=== PATIENT | female | born 1940 | race Caucasian/White ===

== ENCOUNTER 2017-05-28 17:31 | Emergency (ER) | payer MEDICARE, BC ==
--- OUTSIDE RECORDS SUMMARY | 2017-05-28 18:05 | XMS REPORT ---
:1940 External Reference #:[id number] Author Organization [facility] Address [address] [address] Phone [phone] Care Team Providers Name Role Phone Alexi Kim III, MD Primary Care Physician Unavailable Payers Type Date Identification Numbers Payment Provider Subscriber Medicare Primary Effective: Policy Number: Medicare Francisca Coburn 2005 [id number] PayID: [id number] [address] [place] [address] Medigap Part B Effective: Policy Number: BS Facets Francisca Reyeslavonne 2011 [id number] PayID: [id number] [address] [address] [place] [address] Problems Date Description Provider Status Onset: 02/08/2011 Benign essential hypertension Alexi Kim M.D. Active Onset: 02/08/2011 Mixed hyperlipidemia Alexi Kim M.D. Active Onset: 02/23/2012 Chronic obstructive lung disease Alexi Kim M.D. Active Onset: 02/23/2012 Impaired fasting glycaemia Alexi Kim M.D. Active Onset: 02/23/2012 Osteoporosis Alexi Kim M.D. Active Onset: 04/13/2014 Disorder of lung Sabrina Chester MD Active Onset: 04/13/2014 Hypoxemia Sabrina Chester MD Active Onset: 09/28/2014 Obesity Sabrina Chester MD Active Onset: 03/01/2015 Essential hypertension Alexi Kim M.D. Active Onset: 08/31/2015 History of malignant neoplasm of Alexi Kim M.D. Active colon Family History Date Family Member(s) Problem(s) Comments Father due to Pancreatic () - pt not sure it was Cancer pancreatic age 78 Father Cancer Mother due to Abdominal () - age 72 Aneurysm Mother Aortic Aneurysm abdominal Siblings 1 1 Sister - HTN, Heart Failure Age 69 Social History Type Date Description Comments Marital Status Lives With Alone Occupation Retired Cigarette Use Quit - Age 64 ETOH Use 08/22/2012 Occasionally consumes alcohol Smoking Patient is a former smoker Recreational Drug Use Denies Drug Use Daily Caffeine Consumes on average 1 cup of regular coffee per day Exercise Type/Frequency Exercises regularly twice a week workout routine Allergies, Adverse Reactions, Alerts Date Description Reaction Status Severity Comments 01/22/2007 PCN active 01/22/2007 Codeine active 01/22/2007 statins active muscles aches 02/12/2014 Iodinated Diagnostic Agents active Medications Medication Date Status Form Strength Qnty SIG Indications Ordering Provider Methocarbamol 05/16/ Hx Tablets 750mg 60tabs take 1 M54.5 Sundar 2018 - tablet UNIQUE Mendiola 05/22/ every six 2018 hours as needed for pain. Salsalate 05/16/ Active Tablets 500mg 30tabs one tablet M54.5 Sundar 2018 twice UNIQUE Mendiola daily as needed with food Hydrocodone-Christian 05/16/ Active Tablets 5-325mg 30tabs take 1 M54.5 Sundar taminophen 2018 tablet Marlena SUPER[employer] SAMPLE every 8 hours for pain. Acetaminophen 02/06/ Active Capsules 500mg 2 by mouth Unknown 2015 twice a day as needed Albuterol 02/06/ Active Aerosol as needed Unknown Sulfate HFA 2015 Multivitamins 02/06/ Active Capsules 1 by mouth Unknown 2015 every day Symbicort 03/31/ Active Aerosol 160-4.5mcg 30.6un Inhale Two J44.9 Sabrina 2014 /Act its Puffs By MD Nemo Mouth Twice A Day Oxygen 09/28/ Active Misc 1units please use R09.02 Sabrina 2014 o2 at 4 MD Nemo litres/min during exertion Lyrica 04/10/ Active Capsules 25mg 60caps 25 mg in Unknown 2013 the morning, and 50 mg at night Prolia 08/26/ Active Solution 60mg/ml 60mg 60 mg sc M81.0 [place] 2013 [facility] Z92.29 Clindamycin HCL 05/09/2013 Active Capsules 300mg 2caps 2 tabs one Dirk hour prior to Tomas, dental work M.D. Vitamin B 01/10/2013 Active Capsules 1 po qd Unknown Complex Simvastatin 01/20/2011 Active Tablets 20mg 90tabs take one Alexi Escalera tablet by lisette Kim every M.D. evening Avalide 03/01/2009 Active Tablets 150-12. 90tabs 1 by mouth Alexi Escalera 5mg every day Yolande Kim Calcium + D 07/29/2008 Active Tablets 600mg 1 po qd Alexi Kim M.D. Vitamin E Active Capsules 100Unit 1 po qd Unknown Vitamin D-400 Active Tablets 400Unit 60tabs 1 by mouth Unknown every day Colace Active Capsules 100mg 60caps 1 by mouth Unknown daily Vitamin C Active Capsules 500mg 1 by mouth Unknown every day Zostavax 08/29/2016 - Hx Suspension [id number] [id number] Alexi E. 05/16/2017 Rec t/0.65M 0 Elliot Kim M.D. Centrum Silver 02/07/2016 - Hx Tablets 1 po qd Unknown 02/07/2016 Fentanyl 03/25/2014 - Hx Patches 72HR 25mcg/H 5units apply one Alexi E. 08/27/2014 R patch once Judy, every 3 days M.D. [place] 03/13/2014 - Hx Tablets 5-325mg 30tabs 1-2 by mouth Dirk 04/10/2014 every 4 to 6 Tomas, hours as M.D. needed Macrobid 02/16/2014 - Hx Capsules 100mg 10caps 1 tab q12hr x Dirk 08/27/2014 5 days Tomas, M.D. Lincoln 02/14/2014 - Hx Tablets 5-325mg 100tabs 1 by mouth Dirk 08/27/2014 every 6 Tomas, hours as M.D. needed for pain try to use less and less as soon as possible Ventolin HFA 02/04/2014 - Hx Aerosol 108(90B 1units 2 puffs by Thuan 02/07/2016 ase) mouth four Flowers, SUPERVIS[employer] SAMPLE mcg/Act times a day as needed Proair HFA 08/25/2013 - Hx Aerosol 108(90B 1units 2 puffs by Alexi Escalera 02/04/2014 [facility]) mouth four Judy, mcg/Act times a day M.DDeep as needed Spiriva 02/24/2013 - Hx Capsules 18mcg 30caps 2 inhalations Alexi E. Handihaler 02/04/2014 by mouth Judy, every morning Yolande Acetaminophen 12/10/2012 - Hx Tablets 500mg 80tabs 1-2 tabs q6h Dirk Extra Strength 02/04/2014 prn pain Yolande Marin Spiriva 11/12/2012 - Hx Capsules 18mcg 30caps 1 inhalation Jaylen Handihaler 02/04/2014 po qam Terence Uribe M.D.,FACP Robaxin-750 11/11/2012 - Hx Tablets 750mg 30tabs 1 po bid prn Dirk 08/25/2013 Yolande Marin Nerve Repair 08/23/2011 - Hx 1 qd Alexi Escalera 08/22/2012 Yolande Kim Aspirin 02/22/2011 - Hx Tablet 81mg 30tabs Alexi Escalera Childrens 08/07/2016 Yolande Kim Symbicort 09/29/2009 - Hx Aerosol 80-4.5m 3units inhale two Thuan 03/31/2015 cg/Act puffs into Flowers, [employer]PER[employer]AMPLE lungs twice a day Zithromax Z-Arnoldo 06/22/2009 - Hx Tablets 250mg 1Pack as per Alexi Escalera 08/23/2009 directions Yolande Kim Lyrica 02/11/2009 - Hx Capsules 50mg 60caps 1 po day Baanibal, 02/24/2013 Abram Escalera MD Flexeril 10/06/2008 - Hx Tablets 10mg 30tabs 1 po tid prn Alexi Escalera 02/11/2009 Yolande Kim Ritalin 07/29/2008 - Hx Tablets 5mg 30tabs 1 tab qd Alexi Escalera 02/11/2009 Yolande Kim Niferex-150 07/29/2008 - Hx Capsules 1 po qd Toi Forte 02/11/2009 Abram Escalera MD Vitamin C 07/29/2008 - Hx Tablets 1000mg 1 po qd Alexi EDeep 02/07/2016 Yolande Kim Oxaliplatin 07/29/2008 - Hx Every other Alexi E. 02/11/2009 week Yolande Kim Fluorouracil 07/29/2008 - Hx Solution ?mg. Every other Alexi E. 02/11/2009 week Yolande Kim Leucovorin 07/29/2008 - Hx Solution ?mg Every other Alexi E. Calcium 01/18/2011 week Yolande Kim Albuterol 07/29/2008 - Hx 1MonthS 2 puffs up to Alexi Escalera Inhaler 08/25/2013 upply four times a Judy, luiz by mouth Yolande as needed Procardia XL 01/29/2008 - Hx Tablets ER 60mg 90tabs 1 po qd Alexi Escalera 03/01/2009 24HR Yolande Kim Zetia 07/24/2007 - Hx Tablets 10mg 90tabs Take One Alexi EDeep 08/25/2013 Tablet By Judy, Mouth Every M.DDeep Day Fosamax 07/24/2007 - Hx Tablets 70mg 12tabs take 1 tablet Alexi E. 02/04/2014 by mouth once cara Kim M.D. Procardia XL - Hx Tablets ER 90mg. 90tabs 1 po qd Alexi EDeep 01/29/2008 24HR Yolande Kim Dyazide - Hx Capsules 37.5-25 90caps 1 po qd Alexi EDeep 03/01/2009 Yolande Kim Tylenol - Hx Tablets 325mg 100tabs prn 2 Tablets Unknown 08/25/2013 PO Q 4HRS Jen - Hx Tablets 60mg 180tabs 1 PO bid prn Frannieen, 07/24/2007 MD Rangel Centrum Silver - Hx Tablets 1 PO qd Frannieen, 07/29/2008 MD Rangel Proair HFA - Hx Aerosol 90mcg/A 1units 2 puffs po Alexi Escalera (Albuterol) 07/29/2008 ct qidprlucio Kim M.D. Aspirin - Hx Tablets 81mg 100tabs 1 PO qd Barken, 07/29/2008 MD Rangel Vitamin B - Hx Capsules 1 po qd Unknown Complex 01/10/2013 Neuropathy - Hx pt d/c'ed Unknown Repair 01/10/2013 Advil - Hx Tablets 200mg 2 tabs prn Unknown 02/07/2016 Lyrica - Hx Capsules 25mg 1 po bid Unknown 04/10/2014 Acetaminophen - Hx Tablets 500mg take 2 Unknown 08/27/2014 tablets by mouth every 8 hours as needed for pain Medications Administered in Office Medication Date Status Form Strength Qnty SIG Indications Ordering Provider Prolia Administered Injection Nurse Visit Injection, 017 A Denosumab, 1MG Prolia Administered Injection Alexi E. Injection, 016 Judy, Denosumab, 1MG M.D. Prolia Administered Injection Nurse Visit Injection, 016 C Denosumab, 1MG Influenza Administered Injection Unknown Virus Vaccine 015 Prolia Administered Injection Nurse Visit Injection, 015 C Denosumab, 1MG Prolia Administered Injection Alexi E. Injection, 015 Judy, Denosumab, 1MG M.D. Prolia Administered Injection Nurse Visit Injection, 014 Tburg Denosumab, 1MG Immunizations CPT Code Status Date Vaccine Lot # [id number] Given 12/27/2015 Influenza Virus Vaccine, Quadrivalent, Split, Preservative Free 19004 Given 01/28/2015 Influenza Virus 3Yrs & Over 08100 Given 02/04/2014 Flu Vaccine Split Virus Preservative Free For [id number] Indiv 3Yr Older 38374 Given 08/25/2013 Pneumococcal Conjugate Vaccine 13 Valent For [id number] Intramuscular Use [id number] Given 01/18/2011 Fluzone Vaccine [id number] 14985 Given 02/04/2010 Influenza Virus 3Yrs & Over [id number] 02333 Given 04/21/2009 Influenza Virus Vaccine, Pandemic Formulation 73236 Given 01/29/2008 Influenza Virus 3Yrs & Over 19015 Given 01/29/2008 Influenza Virus 3Yrs & Over 33144 Given 07/24/2007 Pneumonia Vaccine [id number] 17387 Given 07/24/2007 Tetanus And Diptheria (Td) For Adult Use Preservative Free 03088 Given 07/24/2007 Tetanus And Diptheria (Td) For Adult Use Preservative Free 76033 Given 01/22/2007 Influenza Virus 3Yrs & Over 30522 Given 01/22/2007 Influenza Virus 3Yrs & Over 91242 Vital Signs Date Vital Result Comment 05/16/2017 Heart Rate 76 /min BP Systolic Sitting 136 mmHg BP Diastolic Sitting 84 mmHg Body Temperature 99.2 F O2 % BldC Oximetry 94 % 03/06/2017 Height 63.5 inches 5'3.50" Weight 226.00 lb Heart Rate 88 /min BP Systolic Sitting 132 mmHg BP Diastolic Sitting 78 mmHg Body Temperature 97.6 F O2 % BldC Oximetry 96 % BMI (Body Mass Index) 39.4 kg/m2 02/13/2017 Height 63.5 inches 5'3.50" Weight 223.00 lb Heart Rate 78 /min BP Systolic Sitting 118 mmHg Lue large cuff BP Diastolic Sitting 64 mmHg Lue large cuff Respiratory Rate 18 /min O2 % BldC Oximetry 93 % On 2L O2 BMI (Body Mass Index) 38.9 kg/m2 01/24/2017 Height 63.5 inches 5'3.50" Weight 217.00 lb BP Systolic 114 mmHg BP Diastolic 74 mmHg Respiratory Rate 20 /min Body Temperature 97.6 F Pain Level 5 BMI (Body Mass Index) 37.8 kg/m2 08/29/2016 Weight 225.00 lb Heart Rate 78 /min BP Systolic Sitting 140 mmHg BP Diastolic Sitting 84 mmHg Respiratory Rate 14 /min O2 % BldC Oximetry 95 % 2%L 08/08/2016 Height 63.5 inches 5'3.50" Heart Rate 88 /min BP Systolic Sitting 124 mmHg BP Diastolic Sitting 74 mmHg Respiratory Rate 16 /min Pain Level 0 O2 % BldC Oximetry 93 % On oxygen 02/29/2016 Weight 212.00 lb Heart Rate 74 /min BP Systolic Sitting 132 mmHg BP Diastolic Sitting 80 mmHg Body Temperature 98.5 F O2 % BldC Oximetry 90 % 2L O2 02/08/2016 Height 63.5 inches 5'3.50" Weight 217.00 lb Heart Rate 84 /min BP Systolic Sitting 136 mmHg BP Diastolic Sitting 72 mmHg Respiratory Rate 14 /min O2 % BldC Oximetry 94 % 2lpm via n/c BMI (Body Mass Index) 37.8 kg/m2 01/26/2016 Height 63.5 inches 5'3.50" Weight 217.00 lb Pain Level 0 BMI (Body Mass Index) 37.8 kg/m2 09/28/2015 Height 63.5 inches 5'3.50" Weight 223.00 lb reported Heart Rate 64 /min BP Systolic Sitting 144 mmHg BP Diastolic Sitting 84 mmHg Respiratory Rate 18 /min O2 % BldC Oximetry 94 % on 2lpm via n/c BMI (Body Mass Index) 38.9 kg/m2 08/31/2015 Height 63.5 inches 5'3.50" Weight 223.00 lb Heart Rate 69 /min BP Systolic Sitting 174 mmHg BP Diastolic Sitting 79 mmHg Body Temperature 96.2 F O2 % BldC Oximetry 95 % BMI (Body Mass Index) 38.9 kg/m2 03/31/2015 Height 64 inches 5'4" Weight 212.00 lb reported Heart Rate 72 /min BP Systolic 142 mmHg BP Diastolic 88 mmHg Respiratory Rate 14 /min O2 % BldC Oximetry 96 % 2 liters BMI (Body Mass Index) 36.4 kg/m2 03/01/2015 Height 64 inches 5'4" Weight 213.75 lb Heart Rate 77 /min BP Systolic Sitting 174 mmHg BP Diastolic Sitting 88 mmHg Respiratory Rate 20 /min Body Temperature 98.5 F O2 % BldC Oximetry 93 % on 2lpm BMI (Body Mass Index) 36.7 kg/m2 01/25/2015 Height 64 inches 5'4" Weight 210.00 lb Pain Level 7 BMI (Body Mass Index) 36.0 kg/m2 09/28/2014 Height 64.5 inches 5'4.50" Weight 219.38 lb Heart Rate 73 /min BP Systolic Sitting 148 mmHg BP Diastolic Sitting 89 mmHg O2 % BldC Oximetry 97 % 3lpm via n/c BMI (Body Mass Index) 37.1 kg/m2 08/27/2014 Height 63.5 inches 5'3.50" Weight 219.25 lb Heart Rate 74 /min BP Systolic Sitting 168 mmHg BP Diastolic Sitting 96 mmHg Respiratory Rate 20 /min O2 % BldC Oximetry 98 % 3 liters BMI (Body Mass Index) 38.2 kg/m2 06/29/2014 Height 64 inches 5'4" Weight 210.00 lb Pain Level 0 BMI (Body Mass Index) 36.0 kg/m2 04/20/2014 Weight 214.25 lb Heart Rate 81 /min BP Systolic Sitting 162 mmHg BP Diastolic Sitting 96 mmHg Body Temperature 98.3 F 04/13/2014 Height 64 inches 5'4" Heart Rate 76 /min BP Systolic Sitting 148 mmHg BP Diastolic Sitting 78 mmHg Respiratory Rate 20 /min O2 % BldC Oximetry 96 % 03/30/2014 Height 64 inches 5'4" Weight 210.00 lb Heart Rate 80 /min BP Systolic 131 mmHg BP Diastolic 73 mmHg Body Temperature 99.5 F Pain Level 5 BMI (Body Mass Index) 36.0 kg/m2 02/09/2014 Height 64 inches 5'4" Weight 220.00 lb Heart Rate 80 /min BP Systolic 142 mmHg BP Diastolic 90 mmHg BMI (Body Mass Index) 37.8 kg/m2 02/09/2014 Height 63.5 inches 5'3.50" Weight 220.00 lb Heart Rate 80 /min BP Systolic Sitting 144 mmHg left arm, large cuff BP Diastolic Sitting 98 mmHg left arm, large cuff Respiratory Rate 20 /min Body Temperature 98.1 F Temporal O2 % BldC Oximetry 93 % Room air BMI (Body Mass Index) 38.4 kg/m2 Neck Circumference in inches 17 02/04/2014 Height 63.5 inches 5'3.50" Weight 218.50 lb Heart Rate 76 /min BP Systolic Sitting 163 mmHg BP Diastolic Sitting 84 mmHg Body Temperature 98.7 F O2 % BldC Oximetry 92 % BMI (Body Mass Index) 38.1 kg/m2 12/29/2013 Height 64 inches 5'4" Weight 220.00 lb Heart Rate 82 /min BP Systolic 151 mmHg BP Diastolic 83 mmHg BMI (Body Mass Index) 37.8 kg/m2 09/29/2013 Height 64 inches 5'4" Weight 220.00 lb Heart Rate 88 /min BP Systolic 144 mmHg BP Diastolic 89 mmHg BMI (Body Mass Index) 37.8 kg/m2 08/25/2013 Height 64 inches 5'4" Weight 224.50 lb Heart Rate 88 /min BP Systolic Sitting 146 mmHg BP Diastolic Sitting 74 mmHg Body Temperature 99.0 F BMI (Body Mass Index) 38.5 kg/m2 02/24/2013 Weight 199.00 lb Heart Rate 88 /min BP Systolic Sitting 138 mmHg BP Diastolic Sitting 84 mmHg 08/22/2012 Height 65 inches 5'5" Weight 221.00 lb Heart Rate 88 /min BP Systolic Sitting 158 mmHg BP Diastolic Sitting 82 mmHg BMI (Body Mass Index) 36.8 kg/m2 02/23/2012 Height 65 inches 5'5" Weight 226.00 lb Heart Rate 100 /min BP Systolic Sitting 140 mmHg BP Diastolic Sitting 80 mmHg BMI (Body Mass Index) 37.6 kg/m2 08/23/2011 Height 65.5 inches 5'5.50" Weight 226.25 lb Heart Rate 78 /min BP Systolic Sitting 156 mmHg BP Diastolic Sitting 96 mmHg BMI (Body Mass Index) 37.1 kg/m2 02/22/2011 Height 65 inches 5'5" Weight 219.00 lb Heart Rate 96 /min BP Systolic Sitting 144 mmHg BP Diastolic Sitting 80 mmHg BMI (Body Mass Index) 36.4 kg/m2 01/18/2011 Height 64.75 inches 5'4.75" Weight 217.00 lb Heart Rate 96 /min BP Systolic Sitting 162 mmHg BP Diastolic Sitting 100 mmHg BMI (Body Mass Index) 36.4 kg/m2 07/11/2010 Weight 213.00 lb Heart Rate 84 /min BP Systolic Sitting 132 mmHg BP Diastolic Sitting 70 mmHg 01/10/2010 Weight 214.00 lb Heart Rate 90 /min BP Systolic Sitting 152 mmHg BP Diastolic Sitting 84 mmHg 09/29/2009 Weight 209.00 lb Heart Rate 68 /min BP Systolic Sitting 118 mmHg BP Diastolic Sitting 80 mmHg 06/22/2009 Weight 200.00 lb Heart Rate 82 /min BP Systolic Sitting 114 mmHg BP Diastolic Sitting 70 mmHg Body Temperature 99.0 F O2 % BldC Oximetry 93 % 06/08/2009 Weight 200.00 lb Heart Rate 80 /min BP Systolic Sitting 140 mmHg BP Diastolic Sitting 82 mmHg 03/01/2009 Heart Rate 68 /min BP Systolic Sitting 152 mmHg BP Diastolic Sitting 84 mmHg 02/11/2009 Weight 188.00 lb Heart Rate 72 /min BP Systolic Sitting 140 mmHg BP Diastolic Sitting 72 mmHg 10/06/2008 Heart Rate 78 /min BP Systolic Sitting 136 mmHg BP Diastolic Sitting 72 mmHg 07/29/2008 Height 65.5 inches 5'5.50" Weight 167.00 lb Heart Rate 92 /min BP Systolic Sitting 134 mmHg BP Diastolic Sitting 70 mmHg BMI (Body Mass Index) 27.4 kg/m2 01/29/2008 Height 65.5 inches 5'5.50" Weight 152.00 lb Heart Rate 65 /min BP Systolic Sitting 80 mmHg BP Diastolic Sitting 60 mmHg BMI (Body Mass Index) 24.9 kg/m2 01/21/2008 Height 65.5 inches 5'5.50" Heart Rate 84 /min BP Systolic Sitting 102 mmHg BP Diastolic Sitting 64 mmHg Body Temperature 98.6 F 07/24/2007 Height 65.5 inches 5'5.50" Weight 161.00 lb Heart Rate 88 /min pulse irreg BP Systolic Sitting 120 mmHg BP Diastolic Sitting 72 mmHg BMI (Body Mass Index) 26.4 kg/m2 01/22/2007 Height 65.5 inches 5'5.50" Weight 172.00 lb Heart Rate 88 /min BP Systolic Sitting 107 mmHg BP Diastolic Sitting 68 mmHg BMI (Body Mass Index) 28.2 kg/m2 Results Test Date Test Result H/L Range Note Comp Metabolic Panel 03/27/2017 Sodium 137 mmol/L 133-145 Potassium 4.3 mmol/L 3.5-5.0 Chloride 96 mmol/L Low 101-111 Co2 Carbon Dioxide 31 mmol/L 22-32 Anion Gap 10 mmol/L 2-11 Glucose 97 mg/dL 70-100 Blood Urea Nitrogen 16 mg/dL 6-24 Creatinine 0.93 mg/dL 0.51-0.95 BUN/Creatinine Ratio 17.2 8-20 Calcium 9.5 mg/dL 8.6-10.3 Total Protein 6.8 g/dL 6.4-8.9 Albumin 4.1 g/dL 3.2-5.2 Globulin 2.7 g/dL 2-4 Albumin/Globulin Ratio 1.5 1-3 Total Bilirubin 0.80 mg/dL 0.2-1.0 Alkaline Phosphatase 57 U/L 34-104 Alt 13 U/L 7-52 Ast 22 U/L 13-39 Egfr Non- 58.5 >60 Egfr 75.2 >60 1 Lipid Profile (Trig/Chol/HDL) 03/27/2017 Triglycerides 158 mg/dL 2 Cholesterol 194 mg/dL 3 HDL Cholesterol 54.9 mg/dL 4 LDL Cholesterol 108 mg/dL 5 Lipid Profile (Trig/Chol/HDL) 03/28/2016 Triglycerides 200 mg/dL 6 Cholesterol 198 mg/dL 7 HDL Cholesterol 46.2 mg/dL 8 LDL Cholesterol 112 mg/dL 9 Comp Metabolic Panel 03/28/2016 Sodium 135 mmol/L 133-145 Potassium 4.3 mmol/L 3.5-5.0 Chloride 97 mmol/L Low 101-111 Co2 Carbon Dioxide 35 mmol/L High 22-32 Anion Gap 3 mmol/L 2-11 Glucose 87 mg/dL 70-100 Blood Urea Nitrogen 19 mg/dL 6-24 Creatinine 0.94 mg/dL 0.51-0.95 BUN/Creatinine Ratio 20.2 High 8-20 Calcium 9.2 mg/dL 8.6-10.3 Total Protein 6.8 g/dL 6.4-8.9 Albumin 4.0 g/dL 3.2-5.2 Globulin 2.8 g/dL 2-4 Albumin/Globulin Ratio 1.4 1-3 Total Bilirubin 0.60 mg/dL 0.2-1.0 Alkaline Phosphatase 55 U/L 34-104 Alt 12 U/L 7-52 Ast 21 U/L 13-39 Egfr Non- 57.9 >60 Egfr 74.5 >60 10 Comp Metabolic Panel 04/01/2015 Sodium 130 mmol/L Low 133-145 Potassium 4.3 mmol/L 3.5-5.0 Chloride 92 mmol/L Low 101-111 Co2 Carbon Dioxide 33 mmol/L High 22-32 Anion Gap 5 mmol/L 2-11 Glucose 99 mg/dL 70-100 Blood Urea Nitrogen 26 mg/dL High 6-24 Creatinine 1.06 mg/dL High 0.51-0.95 BUN/Creatinine Ratio 24.5 High 8-20 Calcium 9.4 mg/dL 8.6-10.3 Total Protein 7.0 g/dL 6.4-8.9 Albumin 4.3 g/dL 3.2-5.2 Globulin 2.7 g/dL 2-4 Albumin/Globulin Ratio 1.6 1-3 Total Bilirubin 0.80 mg/dL 0.2-1.0 Alkaline Phosphatase 51 U/L 34-104 Alt 13 U/L 7-52 Ast 23 U/L 13-39 Egfr Non- 50.5 >60 Egfr 65.0 >60 11 Lipid Profile (Trig/Chol/HDL) 04/01/2015 Triglycerides 231 mg/dL 12 Cholesterol 195 mg/dL 13 HDL Cholesterol 45.1 mg/dL 14 LDL Cholesterol 104 mg/dL 15 Urinalysis Profile 02/12/2014 Urine Color Rosio Urine Appearance Cloudy Urine Specific [place] 1.017 1.010-1.030 Urine pH 7.0 5-9 Urine Urobilinogen Negative Negative Urine Ketones Negative Negative Urine Protein Negative Negative Urine Leukocytes Negative Negative Urine Blood Negative Negative * * Negative 16 Urine Nitrite Negative Negative Urine Bilirubin Negative Negative Urine Glucose Negative Negative Urine Culture And 02/12/2014 Urine Culture (SEE NOTE) 17 Sensitivities CBC No Diff 02/11/2014 White Blood Count 8.4 10^3/uL 4.8-10.8 18 Red Blood Count 4.77 10^6/uL 4.0-5.4 18 Hemoglobin 15.1 g/dL 12.0-16.0 18 Hematocrit 44 % 35-47 18 Mean Corpuscular Volume 93 fL 80-97 18 Mean Corpuscular Hemoglobin 32 pg High 27-31 18 Mean Corpuscular HGB Conc 34 g/dL 31-36 18 Red Cell Distribution Width 13 % 10.5-15 18 Platelet Count 261 10^3/uL 150-450 18 Mean Platelet Volume 9 um3 7.4-10.4 18 Inr/Protime 02/11/2014 Inr 0.92 0.85-1.06 18 Basic Metabolic Panel 02/11/2014 Sodium 131 mmol/L Low 133-145 18 Potassium 4.8 mmol/L 3.7-5.6 18 Chloride 96 mmol/L Low 101-111 18 Co2 Carbon Dioxide 29 mmol/L 22-32 18 Anion Gap 6 mmol/L 2-11 18 Glucose 68 mg/dL Low 70-100 18 Blood Urea Nitrogen 16 mg/dL 6-24 18 Creatinine 0.85 mg/dL 0.51-0.95 18 BUN/Creatinine Ratio 18.8 8-20 18 Calcium 9.9 mg/dL 8.6-10.3 18 Egfr Non- 65.4 >60 18 Egfr 84.1 >60 18, 19 Type & Screen 02/11/2014 Patient Blood Type O Positive 18 Antibody Screen NEGATIVE 18 Lipid Profile (Trig/Chol/HDL) 08/18/2013 Triglycerides 186 mg/dL 20, 21 Cholesterol 158 mg/dL 20, 22 HDL Cholesterol 41.5 mg/dL 20, 23 LDL Cholesterol 79 mg/dL 20, 24 Comp Metabolic Panel 08/18/2013 Sodium 132 mmol/L Low 133-145 20 Potassium 4.3 mmol/L 3.7-5.6 20 Chloride 97 mmol/L Low 101-111 20 Co2 Carbon Dioxide 26 mmol/L 22-32 20 Anion Gap 9 mmol/L 2-11 20 Glucose 95 mg/dL 70-100 20 Blood Urea Nitrogen 16 mg/dL 6-24 20 Creatinine 0.90 mg/dL 0.51-0.95 20 BUN/Creatinine Ratio 17.8 8-20 20 Calcium 9.4 mg/dL 8.6-10.3 20 Total Protein 6.8 g/dL 6.4-8.9 20 Albumin 4.4 g/dL 3.2-5.2 20 Globulin 2.4 g/dL 2-4 20 Albumin/Globulin Ratio 1.8 1-3 20 Total Bilirubin 0.60 mg/dL 0.2-1.0 20 Alkaline Phosphatase 58 U/L 34-104 20 Alt 13 U/L 7-52 20 Ast 21 U/L 13-39 20 Egfr Non- 61.4 >60 20 Egfr 78.9 >60 20, 25 Vitamin D, 25 Hydroxy 08/18/2013 25-Hydroxy Vitamin D2 <4.0 ng/mL 20 25-Hydroxy Vitamin D3 44 ng/mL 20 25-Hydroxy Vitamin D Total 44 ng/mL 20, 26 Laboratory test finding 10/11/2012 Inr 1.82 High 0.87-0.97 Laboratory test finding 10/03/2012 Inr 2.24 High 0.87-0.97 CBC Auto Diff 09/12/2012 White Blood Count 9.0 10^3/uL 4.8-10.8 Red Blood Count 4.86 10^6/uL 4.0-5.4 Hemoglobin 15.5 g/dL 12.0-16.0 Hematocrit 45 % 35-47 Mean Corpuscular Volume 93 fL 80-97 Mean Corpuscular Hemoglobin 32 pg High 27-31 Mean Corpuscular HGB Conc 34 g/dL 31-36 Red Cell Distribution Width 12 % 10.5-15 Platelet Count 222 10^3/uL 150-450 Mean Platelet Volume 9 um3 7.4-10.4 Abs Neutrophils 5.8 10^3/uL 1.5-7.7 Abs Lymphocytes 1.6 10^3/uL 1.0-4.8 Abs Monocytes 1.2 10^3/uL High 0-0.8 Abs Eosinophils 0.3 10^3/uL 0-0.6 Abs Basophils 0.1 10^3/uL 0-0.2 Abs Nucleated RBC 0.01 10^3/uL Granulocyte % 64.2 % 38-83 Lymphocyte % 18.4 % Low 25-47 Monocyte % 13.9 % High 1-9 Eosinophil % 2.9 % 0-6 Basophil % 0.6 % 0-2 Nucleated Red Blood Cells % 0.1 Inr/Protime 09/12/2012 Inr 0.87 0.87-0.97 Comp Metabolic Panel 09/12/2012 Sodium 127 mmol/L Low 133-145 Potassium 4.4 mmol/L 3.5-5.0 Chloride 93 mmol/L Low 101-111 Co2 Carbon Dioxide 26.0 mmol/L 22-32 Anion Gap 8.0 mmol/L 2-11 Glucose 112 mg/dL High 70-100 Blood Urea Nitrogen 17 mg/dL 6-24 Creatinine 1.20 mg/dL 0.50-1.40 BUN/Creatinine Ratio 14.2 8-20 Calcium 9.5 mg/dL 8.1-9.9 Total Protein 7.5 g/dL 6.2-8.1 Albumin 3.9 g/dL 3.2-5.2 Globulin 3.6 g/dL 2-4 Albumin/Globulin Ratio 1.1 1-3 Total Bilirubin 1.0 mg/dL 0.4-1.5 Alkaline Phosphatase 60 U/L 30-110 Alt 22 U/L 14-54 Ast 33 U/L 12-42 Egfr Non- 44.2 >60 Egfr 56.8 >60 27 Laboratory test finding 09/12/2012 Troponin I 0.02 ng/mL 0-0.06 28 Type & Screen 09/12/2012 Patient Blood Type O Positive Antibody Screen NEGATIVE Lipid Panel - M 08/19/2012 Creatine Kinase 293 U/L High 0-200 29 Comp Metabolic Panel 08/19/2012 Sodium 133 mmol/L 133-145 Potassium 4.3 mmol/L 3.5-5.0 Chloride 97 mmol/L Low 101-111 Co2 Carbon Dioxide 27.0 mmol/L 22-32 Anion Gap 9.0 mmol/L 2-11 Glucose 107 mg/dL High 70-100 Blood Urea Nitrogen 21 mg/dL 6-24 Creatinine 1.00 mg/dL 0.50-1.40 BUN/Creatinine Ratio 21.0 High 8-20 Calcium 9.8 mg/dL 8.1-9.9 Total Protein 6.8 g/dL 6.2-8.1 Albumin 4.0 g/dL 3.2-5.2 Globulin 2.8 g/dL 2-4 Albumin/Globulin Ratio 1.4 1-3 Total Bilirubin 0.9 mg/dL 0.4-1.5 Alkaline Phosphatase 53 U/L 30-110 Alt 26 U/L 14-54 Ast 34 U/L 12-42 Egfr Non- 54.5 >60 Egfr 70.1 >60 30 Lipid Profile (Trig/Chol/HDL) 08/19/2012 Triglycerides 203 mg/dL High 40- 200 Cholesterol 173 mg/dL Less than 200 HDL Cholesterol 46 mg/dL 40-60 31 Cholesterol/HDL Ratio 3.8 Average 1-4.44 LDL Cholesterol 86.4 mg/dL Less Than 100 32 Laboratory test 08/19/2012 Hemoglobin A1c 5.5 % Less than 6.0 33 finding Surgical Pathology 03/14/2012 S RUN DATE: 34 03/18/ <SEE NOTE> Lipid Profile 08/17/2011 Triglyceride 254 mg/dL High 40-200 (Trig/Chol/HDL) Cholesterol 173 mg/dL Less Than 200 35 High Density Lipoprotein 42 mg/dL 40-60 36 Cholesterol/HDL Ratio 4.12 AVERAGE 1-4.44 Low Density Lipoprotein 80 mg/dL Less Than 100 37 Comp Metabolic Panel 08/17/2011 Sodium 135 mmol/L 135-145 Potassium 4.3 mmol/L 3.5-5.0 Chloride 101 mmol/L 101-111 Co2 (Carbon Dioxide) 29.0 mmol/L 22-32 Anion Gap 5.0 mmol/L 2-11 38 Glucose 99 mg/dL 70-100 BUN 17 mg/dL 6-24 Creatinine 1.0 mg/dL 0.50-1.40 One Over Creatinine 1.00 BUN/Creatinine Ratio 17.0 8-20 Calcium 9.0 mg/dL 8.1-9.9 Total Protein 6.7 GM/DL 6.2-8.1 Albumin 4.0 GM/DL 3.2-5.2 Globulin 2.7 GM/DL 2-4 Albumin/Globulin Ratio 1.5 1-3 Bilirubin Total 0.8 mg/dL 0.4-1.5 39 Alkaline Phosphatase 55 U/L 30-110 Alt (SGPT) 23 U/L 14-54 Ast (Sgot) 29 U/L 12-42 eGFR Non- 54.7 > 60 eGFR 70.3 > 60 40 Laboratory test finding 08/17/2011 Hemoglobin A1c 6.3 % High Less Than 6.0 41 Laboratory test finding 04/04/2011 Alt (SGPT) 23 U/L 14-54 Alkaline Phosphatase 04/04/2011 Alkaline Phosphatase,S 62 U/L 55 - 142 42 Isoenzyme Liver 1% 51.6 % 27.8-76.3 Liver 1 32.0 IU/L 16.2-70.2 Liver 2% 5.6 % 0.0-8.0 Liver 2 3.5 IU/L 0.0-5.8 Bone % 42.8 % 19.1-67.7 Bone 26.5 IU/L 12.1-42.7 Intestine % 0.0 % 0.0-20.6 Intestine 0.0 IU/L 0.0-11.0 Placental NotPresent () 43 Lipid Profile (Trig/Chol/HDL) 04/04/2011 Triglyceride 273 mg/dL High 40- 200 Cholesterol 166 mg/dL Less Than 200 44 High Density Lipoprotein 39 mg/dL Low 40-60 45 Cholesterol/HDL Ratio 4.26 AVERAGE 1-4.44 Low Density Lipoprotein 72 mg/dL Less Than 100 46 Laboratory test finding 01/18/2011 Hemoglobin A1c 5.5 5-7 Lipid Profile (Trig/Chol/HDL) 07/14/2010 Triglyceride 349 mg/dL High 40- 200 Cholesterol 224 mg/dL High Less Than 200 47 High Density Lipoprotein 39 mg/dL Low 40-60 48 Cholesterol/HDL Ratio 5.74 AVERAGE High 1-4.44 Low Density Lipoprotein 115 mg/dL High Less Than 100 49 Basic Metabolic Panel 07/14/2010 Sodium 134 mmol/L Low 135-145 Potassium 4.5 mmol/L 3.5-5.0 Chloride 100 mmol/L Low 101-111 Co2 (Carbon Dioxide) 28.0 mmol/L 22-32 Anion Gap 6.0 mmol/L 2-11 50 Glucose 108 mg/dL High 70-100 BUN 15 mg/dL 6-24 Creatinine 1.00 mg/dL 0.50-1.40 One Over Creatinine 1.00 BUN/Creatinine Ratio 15.0 8-20 Calcium 9.8 mg/dL 8.1-9.9 eGFR Non- 54.8 > 60 eGFR 70.5 > 60 51 Laboratory test finding 07/14/2010 TSH 2.93 MIU/ML 0.34-5.60 Comp Metabolic Panel 06/22/2010 Sodium 137 mmol/L 135-145 Potassium 4.2 mmol/L 3.5-5.0 Chloride 100 mmol/L Low 101-111 Co2 (Carbon Dioxide) 29.0 mmol/L 22-32 Anion Gap 8.0 mmol/L 2-11 52 Glucose 137 mg/dL High 70-100 BUN 17 mg/dL 6-24 Creatinine 1.10 mg/dL 0.50-1.40 One Over Creatinine 0.90 BUN/Creatinine Ratio 15.5 8-20 Calcium 9.6 mg/dL 8.1-9.9 Total Protein 7.0 GM/DL 6.2-8.1 Albumin 4.1 GM/DL 3.2-5.2 Globulin 2.9 GM/DL 2-4 Albumin/Globulin Ratio 1.4 1-3 Bilirubin Total 0.7 mg/dL 0.4-1.5 53 Alkaline Phosphatase 54 U/L 30-110 Alt (SGPT) 20 U/L 14-54 Ast (Sgot) 27 U/L 12-42 eGFR Non- 49.1 > 60 eGFR 63.1 > 60 54 CBC With Manual Diff 06/22/2010 White Blood Count 6.9 CUMM 4.8-10.8 Red Cell Count 4.71 CUMM 4.2-5.4 Hemoglobin 14.9 g/dL 12.0-16.0 Hematocrit 43 % 35-47 Mean Corpuscular Volume 92 um3 79-97 Mean Corpuscular Hemoglob 32 pg High 27-31 Mean Corpuscular HGB Cone 34 g/dL 32-36 Redcell Distribution WDTH 13 % 10.5-15 Platelet Count 205 CUMM 150-450 Mean Platelet Volume 10.0 um3 7.4-10.4 Polysegmented Neutrophil 63 % 38-83 Lymphocyte 24 % Low 25-47 Monocyte 11 % 0-13 Eosinophil 2 % 0-6 Absolute Neutrophil Count 4.3 RBC Morphology NORMAL CBC With Manual Diff 03/23/2010 White Blood Count 8.1 CUMM 4.8-10.8 Red Cell Count 4.67 CUMM 4.2-5.4 Hemoglobin 14.9 g/dL 12.0-16.0 Hematocrit 43 % 35-47 Mean Corpuscular Volume 91 um3 79-97 Mean Corpuscular Hemoglob 32 pg High 27-31 Mean Corpuscular HGB Cone 35 g/dL 32-36 Redcell Distribution WDTH 13 % 10.5-15 Platelet Count 320 CUMM 150-450 Mean Platelet Volume 7.3 um3 Low 7.4-10.4 Polysegmented Neutrophil 60 % 38-83 Band Neutrophil 4 % 0-8 Lymphocyte 13 % Low 25-47 Monocyte 15 % High 0-13 Eosinophil 6 % 0-6 Basophil 2 % 0-2 Absolute Neutrophil Count 5.1 RBC Morphology NORMAL Comp Metabolic Panel 03/23/2010 Sodium 133 mmol/L Low 135-145 Potassium 4.3 mmol/L 3.5-5.0 Chloride 99 mmol/L Low 101-111 Co2 (Carbon Dioxide) 27.0 mmol/L 22-32 Anion Gap 7.0 mmol/L 2-11 55 Glucose 141 mg/dL High 70-100 56 BUN 18 mg/dL 6-24 Creatinine 1.40 mg/dL 0.50-1.40 One Over Creatinine 0.70 BUN/Creatinine Ratio 12.9 8-20 Calcium 9.1 mg/dL 8.1-9.9 Total Protein 6.3 GM/DL 6.2-8.1 Albumin 3.4 GM/DL 3.2-5.2 Globulin 2.9 GM/DL 2-4 Albumin/Globulin Ratio 1.2 1-3 Bilirubin Total 0.6 mg/dL 0.4-1.5 57 Alkaline Phosphatase 70 U/L 30-110 Alt (SGPT) 24 U/L 14-54 Ast (Sgot) 25 U/L 12-42 eGFR Non- 39.5 > 60 eGFR 47.8 > 60 58 Laboratory test finding 03/23/2010 Carcino Embryonic 1.99 NG/ML 0-5 59 Antigen Comp Metabolic Panel 12/22/2009 Sodium 134 mmol/L Low 135-145 Potassium 4.6 mmol/L 3.5-5.0 Chloride 96 mmol/L Low 101-111 Co2 (Carbon Dioxide) 30.0 mmol/L 22-32 Anion Gap 8.0 mmol/L 2-11 60 Glucose 67 mg/dL Low 70-100 61 BUN 16 mg/dL 6-24 Creatinine 0.80 mg/dL 0.50-1.40 One Over Creatinine 1.20 BUN/Creatinine Ratio 20.0 8-20 Calcium 9.6 mg/dL 8.1-9.9 Total Protein 6.8 GM/DL 6.2-8.1 Albumin 4.2 GM/DL 3.2-5.2 Globulin 2.6 GM/DL 2-4 Albumin/Globulin Ratio 1.6 1-3 Bilirubin Total 1.1 mg/dL 0.4-1.5 62 Alkaline Phosphatase 60 U/L 30-110 Alt (SGPT) 24 U/L 14-54 Ast (Sgot) 30 U/L 12-42 eGFR Non- 75.6 > 60 eGFR 91.5 > 60 63 Laboratory test finding 12/22/2009 Carcino Embryonic Antigen 2.32 NG/ML 0 -5 64 CBC With Manual Diff 12/22/2009 White Blood Count 8.4 CUMM 4.8-10.8 Red Cell Count 4.46 CUMM 4.2-5.4 Hemoglobin 14.5 g/dL 12.0-16.0 Hematocrit 42 % 35-47 Mean Corpuscular Volume 94 um3 79-97 Mean Corpuscular Hemoglob 33 pg High 27-31 Mean Corpuscular HGB Cone 35 g/dL 32-36 Redcell Distribution WDTH 12 % 10.5-15 Platelet Count 261 CUMM 150-450 Mean Platelet Volume 7.9 um3 7.4-10.4 Polysegmented Neutrophil 59 % 38-83 Lymphocyte 29 % 25-47 Monocyte 10 % 0-13 Eosinophil 2 % 0-6 Absolute Neutrophil Count 4.9 RBC Morphology NORMAL CBC With Manual Diff 08/03/2009 White Blood Count 7.5 CUMM 4.8-10.8 Red Cell Count 4.38 CUMM 4.2-5.4 Hemoglobin 14.1 g/dL 12.0-16.0 Hematocrit 41 % 35-47 Mean Corpuscular Volume 92 um3 79-97 Mean Corpuscular Hemoglob 32 pg High 27-31 Mean Corpuscular HGB Cone 35 g/dL 32-36 Redcell Distribution WDTH 12 % 10.5-15 Platelet Count 263 CUMM 150-450 Mean Platelet Volume 7.9 um3 7.4-10.4 Polysegmented Neutrophil 50 % 38-83 Lymphocyte 27 % 25-47 Monocyte 15 % High 0-13 Eosenophil 7 % High 0-6 Basophil 1 % 0-2 Absolute Neutrophil Count 3.7 RBC Morphology NORMAL Comp Metabolic Panel 08/03/2009 Sodium 135 mmol/L 135-145 Potassium 4.6 mmol/L 3.5-5.0 Chloride 98 mmol/L Low 101-111 Co2 (Carbon Dioxide) 29.0 mmol/L 22-32 Anion Gap 8.0 mmol/L 2-11 65 Glucose 76 mg/dL 70-100 66 BUN 14 mg/dL 6-24 Creatinine 0.90 mg/dL 0.50-1.40 One Over Creatinine 1.10 BUN/Creatinine Ratio 15.6 8-20 Calcium 9.7 mg/dL 8.1-9.9 67 Total Protein 7.1 GM/DL 6.2-8.1 Albumin 3.9 GM/DL 3.2-5.2 Globulin 3.2 GM/DL 2-4 Albumin/Globulin Ratio 1.2 1-3 Bilirubin Total 0.6 mg/dL 0.4-1.5 68 Alkaline Phosphatase 81 U/L 30-110 Alt (SGPT) 21 U/L 14-54 Ast (Sgot) 27 U/L 12-42 eGFR Non- 66.0 > 60 eGFR 79.8 > 60 69 Laboratory test finding 08/03/2009 Carcino Embryonic Antigen 1.48 NG/ML 0 -5 70 Comp Metabolic Panel 04/26/2009 Sodium 136 mmol/L 135-145 Potassium 4.5 mmol/L 3.5-5.0 Chloride 99 mmol/L Low 101-111 Co2 (Carbon Dioxide) 29.0 mmol/L 22-32 Anion Gap 8.0 mmol/L 2-11 71 Glucose 68 mg/dL Low 70-100 72 BUN 17 mg/dL 6-24 Creatinine 0.80 mg/dL 0.50-1.40 One Over Creatinine 1.20 BUN/Creatinine Ratio 21.3 High 8-20 Calcium 9.7 mg/dL 8.1-9.9 73 Total Protein 6.9 GM/DL 6.2-8.1 Albumin 4.0 GM/DL 3.2-5.2 Globulin 2.9 GM/DL 2-4 Albumin/Globulin Ratio 1.4 1-3 Bilirubin Total 0.6 mg/dL 0.4-1.5 74 Alkaline Phosphatase 70 U/L 30-110 Alt (SGPT) 26 U/L 14-54 Ast (Sgot) 31 U/L 12-42 eGFR Non- 75.6 > 60 eGFR 91.5 > 60 75 Laboratory test finding 04/26/2009 Carcino Embryonic Antigen 1.59 NG/ML 0 -5 76 CBC With Manual Diff 04/26/2009 White Blood Count 6.8 CUMM 4.8-10.8 Red Cell Count 4.66 CUMM 4.2-5.4 Hemoglobin 14.8 g/dL 12.0-16.0 Hematocrit 43 % 35-47 Mean Corpuscular Volume 92 um3 79-97 Mean Corpuscular Hemoglob 32 pg High 27-31 Mean Corpuscular HGB Cone 35 g/dL 32-36 Redcell Distribution WDTH 13 % 10.5-15 Platelet Count 199 CUMM 150-450 Mean Platelet Volume 9.9 um3 7.4-10.4 Polysegmented Neutrophil 49 % 38-83 Lymphocyte 28 % 25-47 Monocyte 11 % 0-13 Eosenophil 7 % High 0-6 Basophil 2 % 0-2 Atypical Lymph 3 % 0-6 Absolute Neutrophil Count 3.3 Anisocytosis SLIGHT Paraneo 03/31/2009 Cary-1 Negative titer <1:240 Cary-2 Negative titer <1:240 Cary-3 Negative titer <1:240 Agna-1 Negative titer <1:240 Toy Designer-1 Negative titer <1:240 Toy Designer-2 Negative titer <1:240 Toy Designer-Tr Negative titer <1:240 Amphiphysin AB Negative titer <1:240 [id number] Negative titer () 77 Striational AB Negative titer <1:60 78 P/Q-Type Calcium Channel AB 0.00 nmol/L <=0.02 79 N-Type Calcium Channel AB 0.00 nmol/L <=0.03 80 Ach Receptor Binding AB 0.00 nmol/L <=0.02 81 Achr Ganglionic Neuronal AB 0.01 nmol/L <=0.02 82 VGKC AB, Serum 0.00 nmol/L <=0.02 83 Immunofixation (Electro) Serum 03/31/2009 Albumin 3.43 GM/DL 3.0-4.35 Alpha 1 0.16 GM/DL 0.09-0.33 Alpha 2 0.94 GM/DL 0.59-1.18 Beta 0.92 GM/DL 0.68-1.02 Gamma 1.24 GM/DL 0.76-1.60 Albumin % 51.2 % 46-63 Alpha 1 % 2.4 % 1.2-5.3 Alpha 2 % 14.0 % 9-17 Beta % 13.7 % 10-16 Gamma % 18.5 % 12-22 A/G Ratio 1.1 0.9-2 Total Protein 6.7 GM/DL 6.2-8.1 Spep Comments (SEE NOTE) 84 Serum Immunofixation (SEE NOTE) 85 Laboratory test finding 03/31/2009 Vitamin B12 372 pg/mL 180-914 Basic Metabolic Panel 03/23/2009 Sodium 140 mmol/L 135-145 Potassium 4.8 mmol/L 3.5-5.0 Chloride 103 mmol/L 101-111 Co2 (Carbon Dioxide) 28.0 mmol/L 22-32 Anion Gap 9.0 mmol/L 2-11 86 Glucose 74 mg/dL 70-100 87 BUN 20 mg/dL 6-24 Creatinine 1.00 mg/dL 0.50-1.40 One Over Creatinine 1.00 BUN/Creatinine Ratio 20.0 8-20 Calcium 9.6 mg/dL 8.1-9.9 88 eGFR Non- 58.4 > 60 eGFR 70.7 > 60 89 Comp Metabolic Panel 01/20/2009 Sodium 138 mmol/L 135-145 Potassium 3.5 mmol/L 3.5-5.0 Chloride 103 mmol/L 101-111 Co2 (Carbon Dioxide) 27.0 mmol/L 22-32 Anion Gap 8.0 mmol/L 2-11 90 Glucose 100 mg/dL 70-100 91 BUN 15 mg/dL 6-24 Creatinine 1.00 mg/dL 0.50-1.40 One Over Creatinine 1.00 BUN/Creatinine Ratio 15.0 8-20 Calcium 9.4 mg/dL 8.1-9.9 92 Total Protein 7.2 GM/DL 6.2-8.1 Albumin 4.0 GM/DL 3.2-5.2 Globulin 3.2 GM/DL 2-4 Albumin/Globulin Ratio 1.3 1-3 Bilirubin Total 0.7 mg/dL 0.4-1.5 93 Alkaline Phosphatase 74 U/L 30-110 Alt (SGPT) 28 U/L 14-54 Ast (Sgot) 34 U/L 12-42 eGFR Non- 58.4 > 60 eGFR 70.7 > 60 94 Lipid Profile (Trig/Chol/HDL) 01/20/2009 Triglyceride 317 mg/dL High 40- 200 Cholesterol 247 mg/dL High Less Than 200 95 High Density Lipoprotein 35 mg/dL Low 40-60 96 Cholesterol/HDL Ratio 7.06 AVERAGE High 1-4.44 Low Density Lipoprotein 149 mg/dL High Less Than 100 97 Protein Electrophoresis Serum 01/20/2009 Albumin 3.80 GM/DL 3.0-4.35 Alpha 1 0.19 GM/DL 0.09-0.33 Alpha 2 1.074 GM/DL 0.59-1.18 Beta 1.02 GM/DL 0.68-1.02 Gamma 1.26 GM/DL 0.76-1.60 Albumin % 52.1 % 46-63 Alpha 1 % 2.6 % 1.2-5.3 Alpha 2 % 14.7 % 9-17 Beta % 14.0 % 10-16 Gamma % 17.3 % 12-22 A/G Ratio 1.1 0.9-2 Total Protein 7.3 GM/DL 6.2-8.1 Spep Comments (SEE NOTE) 98 Laboratory test finding 01/20/2009 Ferritin 65 NG/ML 11.0-307 Vitamin B12 326 pg/mL 180-914 Carcino Embryonic Antigen 1.47 NG/ML 0-5 99 Iron & Iron Binding Capacity 01/20/2009 Iron Total 91 g/dL 28-170 Unsaturated Iron Binding 287 g/dL Total Iron Binding Capacity 378 g/dL 250-450 % Iron Saturation 24 % 15-55 Laboratory test finding 01/20/2009 TSH 3.32 MIU/ML 0.34-5.60 Comp Metabolic Panel 01/20/2009 Sodium 137 mmol/L 135-145 Potassium 3.6 mmol/L 3.5-5.0 Chloride 101 mmol/L 101-111 Co2 (Carbon Dioxide) 26.0 mmol/L 22-32 Anion Gap 10.0 mmol/L 2-11 100 Glucose 99 mg/dL 70-100 101 BUN 16 mg/dL 6-24 Creatinine 0.90 mg/dL 0.50-1.40 One Over Creatinine 1.10 BUN/Creatinine Ratio 17.8 8-20 Calcium 9.6 mg/dL 8.1-9.9 102 Total Protein 7.1 GM/DL 6.2-8.1 Albumin 4.1 GM/DL 3.2-5.2 Globulin 3.0 GM/DL 2-4 Albumin/Globulin Ratio 1.4 1-3 Bilirubin Total 0.5 mg/dL 0.4-1.5 103 Alkaline Phosphatase 73 U/L 30-110 Alt (SGPT) 26 U/L 14-54 Ast (Sgot) 34 U/L 12-42 eGFR Non- 66.0 > 60 eGFR 79.8 > 60 104 CBC With Manual Diff 01/20/2009 White Blood Count 6.8 CUMM 4.8-10.8 Red Cell Count 4.59 CUMM 4.2-5.4 Hemoglobin 14.9 g/dL 12.0-16.0 Hematocrit 44 % 35-47 Mean Corpuscular Volume 95 um3 79-97 Mean Corpuscular Hemoglob 33 pg High 27-31 Mean Corpuscular HGB Cone 34 g/dL 32-36 Redcell Distribution WDTH 13 % 10.5-15 Platelet Count 203 CUMM 150-450 Mean Platelet Volume 9.6 um3 7.4-10.4 Polysegmented Neutrophil 69 % 38-83 Lymphocyte 19 % Low 25-47 Monocyte 4 % 0-13 Eosenophil 5 % 0-6 Basophil 3 % High 0-2 Absolute Neutrophil Count 4.6 RBC Morphology NORMAL Laboratory test finding 03/04/2008 Carcino Embryonic 41.68 NG/ML High 0-5 105 Antigen Comp Metabolic Panel 03/04/2008 Sodium 134 mmol/L Low 135-145 Potassium 3.6 mmol/L 3.5-5.0 Chloride 98 mmol/L Low 101-111 Co2 (Carbon Dioxide) 30.0 mmol/L 22-32 Anion Gap 6.0 mmol/L 2-11 106 Glucose 83 mg/dL 70-100 107 BUN 7 mg/dL 6-24 Creatinine 0.66 mg/dL 0.50-1.40 One Over Creatinine 1.50 BUN/Creatinine Ratio 10.6 8-20 Calcium 9.2 mg/dL 8.1-9.9 108 Total Protein 7.1 GM/DL 6.2-8.1 Albumin 3.5 GM/DL 3.2-5.2 Globulin 3.6 GM/DL 2-4 Albumin/Globulin Ratio 1.0 1-3 Bilirubin Total 0.6 mg/dL 0.4-1.5 Alkaline Phosphatase 97 U/L 30-110 Alt (SGPT) 15 U/L 14-54 Ast (Sgot) 28 U/L 12-42 Surgical Pathology 03/04/2008 Surgical 109 Pathology <SEE NOTE> Protein 02/27/2008 Albumin 3.04 GM/DL 3.0-4.3 110 Electrophoresis Serum 5 Alpha 1 0.20 GM/DL 0.09-0.33 110 Alpha 2 0.98 GM/DL 0.59-1.18 110 Beta 1.08 GM/DL High 0.68-1.02 110 Gamma 1.40 GM/DL 0.76-1.60 110 Albumin % 45.4 % Low 46-63 110 Alpha 1 % 3.0 % 1.2-5.3 110 Alpha 2 % 14.6 % 9-17 110 Beta % 16.1 % High 10-16 110 Gamma % 20.9 % 12-22 110 A/G Ratio 0.8 Low 0.9-2 110 Total Protein 6.7 GM/DL 6.2-8.1 110 Spep Comments (SEE NOTE) 110, 111 Comp Metabolic Panel 02/27/2008 Sodium 137 mmol/L 135-145 110 Potassium 3.5 mmol/L 3.5-5.0 110 Chloride 101 mmol/L 101-111 110 Co2 (Carbon Dioxide) 27.0 mmol/L 22-32 110 Anion Gap 9.0 mmol/L 2-11 110, 112 Glucose 134 mg/dL High 70-100 110, 113 BUN 11 mg/dL 6-24 110 Creatinine 0.80 mg/dL 0.50-1.40 110 One Over Creatinine 1.20 110 BUN/Creatinine Ratio 13.8 8-20 110 Calcium 9.5 mg/dL 8.1-9.9 110, 114 Total Protein 6.7 GM/DL 6.2-8.1 110 Albumin 3.6 GM/DL 3.2-5.2 110 Globulin 3.1 GM/DL 2-4 110 Albumin/Globulin Ratio 1.2 1-3 110 Bilirubin Total 0.3 mg/dL Low 0.4-1.5 110 Alkaline Phosphatase 105 U/L 30-110 110 Alt (SGPT) 15 U/L 14-54 110 Ast (Sgot) 24 U/L 12-42 110 Laboratory test finding 02/27/2008 Ferritin < 10 NG/ML Low 11.0-307 110 Erythrocyte Sed Rate 59 MM/HR High 0-40 110 Iron & Iron Binding Capacity 02/27/2008 Iron Total 20 g/dL Low 28- 170 110 Unsaturated Iron Binding 350 g/dL 110 Total Iron Binding Capacity 370 g/dL 250-450 110 % Iron Saturation 5 % Low 15-55 110 Laboratory test finding 02/19/2008 Hemoglobin A1c 5.8 % <6.0 115 CBC With Manual Diff 02/19/2008 White Blood Count 11.9 CUMM High 4.8-10.8 Red Cell Count 4.54 CUMM 4.2-5.4 Hemoglobin 11.5 g/dL Low 12.0-16.0 Hematocrit 34 % Low 35-47 Mean Corpuscular Volume 76 um3 Low 79-97 Mean Corpuscular Hemoglob 25 pg Low 27-31 Mean Corpuscular HGB Cone 33 g/dL 32-36 Redcell Distribution WDTH 17 % High 10.5-15 Platelet Count 490 CUMM High 150-450 Mean Platelet Volume 8.5 um3 7.4-10.4 Polysegmented Neutrophil 66 % 38-83 Lymphocyte 22 % Low 25-47 Monocyte 4 % 0-13 Eosenophil 5 % 0-6 Basophil 3 % High 0-2 Absolute Neutrophil Count 7.8 Hypochromasia 2+ Target Cells FEW Stomatocytes FEW Vitamin D, 25 Hydroxy 01/29/2008 25-Hydroxy Vitamin D2 <4.0 ng/mL () 25-Hydroxy Vitamin D3 35 ng/mL () 25-Hydroxy Vitamin D Total 35 ng/mL () 116 Laboratory test finding 01/29/2008 Hemoglobin A1c 6.2 % High <6.0 117 CBC With Manual Diff 01/29/2008 White Blood Count 10.8 CUMM 4.8-10.8 Red Cell Count 4.47 CUMM 4.2-5.4 Hemoglobin 11.4 g/dL Low 12.0-16.0 Hematocrit 34 % Low 35-47 Mean Corpuscular Volume 77 um3 Low 79-97 Mean Corpuscular Hemoglob 26 pg Low 27-31 Mean Corpuscular HGB Cone 34 g/dL 32-36 Redcell Distribution WDTH 17 % High 10.5-15 Platelet Count 516 CUMM High 150-450 Mean Platelet Volume 8.5 um3 7.4-10.4 Polysegmented Neutrophil 63 % 38-83 Lymphocyte 24 % 5-47 Monocyte 5 % 0-13 Eosenophil 5 % 0-6 Basophil 3 % High 0-2 Absolute Neutrophil Count 6.8 Anisocytosis SLIGHT Laboratory test finding 01/29/2008 TSH 1.71 MIU/ML 0.34-5.60 Lipid Profile (Trig/Chol/HDL) 01/29/2008 Triglyceride 311 mg/dL High 40- 200 Cholesterol 226 mg/dL High Less Than 200 118 Cholesterol/HDL Ratio 7.79 AVERAGE High 1-4.44 Low Density Lipoprotein 135 mg/dL High Less Than 100 119 High Density Lipoprotein 29 mg/dL Low 40-60 120 Comp Metabolic Panel 01/29/2008 Sodium 139 mmol/L 135-145 Potassium 4.1 mmol/L 3.5-5.0 Chloride 99 mmol/L Low 101-111 Co2 (Carbon Dioxide) 32.0 mmol/L 22-32 Anion Gap 8.0 mmol/L 2-11 121 BUN 13 mg/dL 6-24 Creatinine 0.9 mg/dL 0.5-1.4 One Over Creatinine 1.11 BUN/Creatinine Ratio 14.4 8-20 Calcium 9.4 mg/dL 8.1-9.9 122 Albumin 3.5 GM/DL 3.2-5.2 Globulin 4.0 GM/DL 2-4 Albumin/Globulin Ratio 0.9 Low 1-3 Bilirubin Total 0.5 mg/dL 0.4-1.5 Alkaline Phosphatase 94 U/L 30-110 Alt (SGPT) 14 U/L 14-54 Ast (Sgot) 25 U/L 12-42 Glucose 84 mg/dL 70-100 123 Total Protein 7.5 GM/DL 6.2-8.1 1 Because ethnic data is not always readily available, this report includes an eGFR for both -Americans and non- Americans. The National Kidney Disease Education Program (NKDEP) does not endorse the use of the MDRD equation for patients that are not between the ages of 18 and 70, are , have extremes of body size, muscle mass, or nutritional status, or are non- or non-. According to the National Kidney Foundation, irrespective of diagnosis, the stage of the disease is based on the level of kidney function: Stage Description GFR(mL/min/1.73 m(2)) 1 Kidney damage with normal or decreased GFR 90 2 Kidney damage with mild decrease in GFR 60-89 3 Moderate decrease in GFR 30-59 4 Severe decrease in GFR 15-29 5 Kidney failure <15 (or dialysis) 2 Desirable: <150 Borderline High: 150-199 High: 200-499 Very High: >500 3 Desirable: <200 Borderline High: 200-239 High: >239 4 Low: <40 Desirable: 40-60 High: >60 5 Desirable: <100 Near Optimal: 100-129 Borderline High: 130-159 High: 160-189 Very High: >189 6 Desirable <150 Borderline high 150-199 High 200-499 Very High >500 7 Desirable <200 Borderline high 200-239 High >239 8 Low <40 Desirable: 40-60 High: >60 9 Desirable: <100 mg/dL Near Optimal: 100-129 mg/dL Borderline High: 130-159 mg/dL High: 160-189 mg/dL Very High: >189 mg/dL 10 Because ethnic data is not always readily available, this report includes an eGFR for both -Americans and non- Americans. The National Kidney Disease Education Program (NKDEP) does not endorse the use of the MDRD equation for patients that are not between the ages of 18 and 70, are , have extremes of body size, muscle mass, or nutritional status, or are non- or non-. According to the National Kidney Foundation, irrespective of diagnosis, the stage of the disease is based on the level of kidney function: Stage Description GFR(mL/min/1.73 m(2)) 1 Kidney damage with normal or decreased GFR 90 2 Kidney damage with mild decrease in GFR 60-89 3 Moderate decrease in GFR 30-59 4 Severe decrease in GFR 15-29 5 Kidney failure <15 (or dialysis) 11 Because ethnic data is not always readily available, this report includes an eGFR for both -Americans and non- Americans. The National Kidney Disease Education Program (NKDEP) does not endorse the use of the MDRD equation for patients that are not between the ages of 18 and 70, are , have extremes of body size, muscle mass, or nutritional status, or are non- or non-. According to the National Kidney Foundation, irrespective of diagnosis, the stage of the disease is based on the level of kidney function: Stage Description GFR(mL/min/1.73 m(2)) 1 Kidney damage with normal or decreased GFR 90 2 Kidney damage with mild decrease in GFR 60-89 3 Moderate decrease in GFR 30-59 4 Severe decrease in GFR 15-29 5 Kidney failure <15 (or dialysis) 12 Desirable <150 Borderline high 150-199 High 200-499 Very High >500 13 Desirable <200 Borderline high 200-239 High >239 14 Low <40 Desirable: 40-60 High: >60 15 Desirable: <100 mg/dL Near Optimal: 100-129 mg/dL Borderline High: 130-159 mg/dL High: 160-189 mg/dL Very High: >189 mg/dL 16 *Ascorbic acid is present which may interfere with detection of blood. 17 RUN DATE: 02/14/14 [facility] LAB LIVE PAGE 1 RUN TIME: [address] [place] [id number] Specimen Inquiry Name: FRANCISCA COBURN : [address]: Jose Marin MD Acct: [id number] Unit: [id number] AGE: 74 Location: [facility] Re02/12/14 SEX: F Status: REG REF SPEC: [id number] JUAN ANTONIO: 02/12/14-[address]: Jose Marin MD REQ: [id number] RECD: 02/12/14-1251 STATUS: MARYANN FLORES DR: Alexi Kim III, MD _ SOURCE: URINE SPDESC: ORDERED: Urine Culture Procedure Result Verified Site Urine Culture Final 02/14/14- 0807 ML Organism 1 ESCHERICHIA COLI [place] Count 75-100,000 (Many) CFU/ML Organism 2 ENTEROCOCCUS SPECIES GP D [place] Count >100,000 (Many) CFU/ML 1. ESCHERICHIA COLI M.I.C. RX --------- ------ Ampicillin 8 S Cefazolin <=4 S Cefepime <=1 S Ceftriaxone <=1 S Ciprofloxacin <=0.25 S Gentamicin <=1 S Levofloxacin <=0.12 S Meropenem <=0.25 S Nitrofurantoin 32 S Tetracycline <=1 S Pipercillin/Tazobactam <=4 S Trimethoprim/Sulfamethoxazole <=20 S Amoxicillin/Clavulanic Acid 4 S Aztreonam <=1 S 2. ENTEROCOCCUS SPECIES GP D M.I.C. RX --------- ------ Ampicillin <=2 S Penicillin 2 S Ciprofloxacin <=0.5 S CONTINUED ON NEXT PAGE * ML=Testing performed at Main Lab DEPARTMENT OF PATHOLOGY, [facility] 13[address] Lab [place] [address] Riky Samayoa M.D. Director [facility] # [id number] RUN DATE: 02/14/14 [facility] LAB LIVE PAGE 2 RUN TIME: [address] [place] [id number] Specimen Inquiry Patient: FRANCISCA COBURN [id number] (Continued) Specimen: [id number] Collected: 02/12/14-1200 Received: 02/12/14-1251 (Continued) Procedure Result Verified Site Urine Culture Final (continued) 02/14/14806 2. ENTEROCOCCUS SPECIES GP D (continued) M.I.C. RX --------- ------ Gentamicin High Level S Levofloxacin 1 S Linezolid 2 S Nitrofurantoin <=16 S * Quinupristin/Dalfopristin 8 R * Streptomycin High Level S Tetracycline >=16 R Tigecycline <=0.12 S Vancomycin 1 S Imipenem-Deduced S * Ampicillin/Sulbactam-Deduced S * These antibiotics are not available in the [facility] Formulary Contact the Microbiology Department for any additional antibiotic reporting. Contact the Microbiology Department for any additional antibiotic reporting. END OF REPORT * ML=Testing performed at Main Lab DEPARTMENT OF PATHOLOGY, [address] [place] [address] Riky Samayoa M.D. Director [facility] # [id number] SURGERY DATE: 02/17/14 19 Because ethnic data is not always readily available, this report includes an eGFR for both -Americans and non- Americans. The National Kidney Disease Education Program (NKDEP) does not endorse the use of the MDRD equation for patients that are not between the ages of 18 and 70, are , have extremes of body size, muscle mass, or nutritional status, or are non- or non-. According to the National Kid[employer] Foundation, irrespective of diagnosis, the stage of the disease is based on the level of kidney function: Stage Description GFR(mL/min/1.73 m(2)) 1 Kidney damage with normal or decreased GFR 90 2 Kidney damage with mild decrease in GFR 60-89 3 Moderate decrease in GFR 30-59 4 Severe decrease in GFR 15-29 5 Kidney failure <15 (or dialysis) 20 PT IS FASTING 21 Desirable <150 Borderline high 150-199 High 200-499 Very High >500 22 Desirable <200 Borderline high 200-239 High >239 23 Low <40 Desirable: 40-60 High: >60 24 Desirable <100 Near Optimal 100-129 Borderline high 130-159 High 160-189 Very High >189 25 Because ethnic data is not always readily available, this report includes an eGFR for both -Americans and non- Americans. The National Kidney Disease Education Program (NKDEP) does not endorse the use of the MDRD equation for patients that are not between the ages of 18 and 70, are , have extremes of body size, muscle mass, or nutritional status, or are non- or non-. According to the National Kidney Foundation, irrespective of diagnosis, the stage of the disease is based on the level of kidney function: Stage Description GFR(mL/min/1.73 m(2)) 1 Kidney damage with normal or decreased GFR 90 2 Kidney damage with mild decrease in GFR 60-89 3 Moderate decrease in GFR 30-59 4 Severe decrease in GFR 15-29 5 Kidney failure <15 (or dialysis) 26 -- REFERENCE VALUE -- 25-HYDROXY D TOTAL (D2+D3) Optimum levels in the healthy population are 20-50, patients with bone disease may benefit from higher levels within this range. Test Performed by: [facility] - [address] [address] Tentmaker: Souleymane Weinstein III, M.D. 27 Because ethnic data is not always readily available, this report includes an eGFR for both -Americans and non- Americans. The National Kidney Disease Education Program (NKDEP) does not endorse the use of the MDRD equation for patients that are not between the ages of 18 and 70, are , have extremes of body size, muscle mass, or nutritional status, or are non- or non-. According to the National Kidney Foundation, irrespective of diagnosis, the stage of the disease is based on the level of kidney function: Stage Description GFR(mL/min/1.73 m(2)) 1 Kidney damage with normal or decreased GFR 90 2 Kidney damage with mild decrease in GFR 60-89 3 Moderate decrease in GFR 30-59 4 Severe decrease in GFR 15-29 5 Kidney failure <15 (or dialysis) 28 Reference Range and Interpretation: TnI (ng/mL) Interpretation Less Than 0.06 ng/mL Not supportive of diagnosis of MT 0.06 - 0.50 ng/mL Indeterminate: suggest serial studies if clinically indicated. Greater than 0.5 ng/mL Consistent with diagnosis of MT 29 PT IS FASTING 30 Because ethnic data is not always readily available, this report includes an eGFR for both -Americans and non- Americans. The National Kidney Disease Education Program (NKDEP) does not endorse the use of the MDRD equation for patients that are not between the ages of 18 and 70, are , have extremes of body size, muscle mass, or nutritional status, or are non- or non-. According to the National Kidney Foundation, irrespective of diagnosis, the stage of the disease is based on the level of kidney function: Stage Description GFR(mL/min/1.73 m(2)) 1 Kidney damage with normal or decreased GFR 90 2 Kidney damage with mild decrease in GFR 60-89 3 Moderate decrease in GFR 30-59 4 Severe decrease in GFR 15-29 5 Kidney failure <15 (or dialysis) 31 HDL Interpretation: Undesirable: High Risk: Less than 40 MG/DL Desirable: Low Risk: Greater than 60 MG/DL 32 LDL Interpretation: Low Risk Optimal Level: LDL Less than 100 MG/DL Near or Above Optimal: LDL 100-129 MG/DL Borderline High Risk: LDL 130-159 MG/DL High Risk: LDL 160-189 MG/DL Very High Risk: LDL Greater than 189 MG/DL 33 Therapeutic target for the treatment of diabetes Mellitus patients is <7% HBA1C, and in selective patients <6.0%.Please refer to [place] [employer] Diabetic care guidelines for further information. 34 RUN DATE: 03/18/12 [facility] LAB LIVE PAGE 1 RUN TIME: [address] [place] [id number] Specimen Inquiry Name: FRANCISCA COBURN : [address]: Cuong Lorenzo MD Acct: [id number] Unit: [id number] AGE: 72 Location: [facility] Re03/14/12 SEX: F Status: REG REF SPEC: [id number] JUAN [place]: 03/14/12- SUBM DR: Bj KLEIN, Cuong Be REQ: [id number] RECD: 03/15/12 STATUS: ASHLY FLORES DR: Abram Cm MD ENTERED: 03/15/12 SP TYPE: SURGICAL Miguelina Kim III, MD, Alexi _ ORDERED: LEVEL IV/2 FINAL DIAGNOSIS 1. Colon, right, biopsy: A. Tubular adenoma. B. No high grade dysplasia or malignancy. 2. Colon, rectal, biopsy: Tubulovillous adenoma. CLINICAL HISTORY Personal history of colon cancer, status post sigmoid resection POST-OPERATIVE DIAGNOSIS Colonoscopy into cecum, prep fair - anastomosis at 20 cm. - 2 polyps, largest in rectum and smaller polyp in right colon; surgical changes GROSS DESCRIPTION 1. The specimen is received in formalin labelled Francisca Coburn, Right Colon Polyp, and consists of a faustin, soft tissue fragment measuring 0.3 x 0.2 x 0.2 cm. Submitted entirely, one cassette. 2. The specimen is received in formalin labelled Francisca Coburn, Rectal Polyp Hot Snare, and consists of a faustin, polypoid fragment measuring 0.7 x 0.5 x 0.3 cm. Submitted entirely, one cassette. CONTINUED ON NEXT PAGE * ML=Testing performed at Main Lab DEPARTMENT OF PATHOLOGY, [facility] 13th Lab [place] [address] Riky Samayoa M.D. Director [facility] Permit #[id number] RUN DATE: 03/18/12 [facility] LAB LIVE PAGE 2 RUN TIME: [address] [place] [id number] Specimen Inquiry Patient: FRANCISCA COBURN [id number] (Continued) GROSS DESCRIPTION (Continued) Signed (signature on file) Riky Samayoa MD 1404 END OF REPORT * ML=Testing performed at Main Lab DEPARTMENT OF PATHOLOGY, [address] [place] [address] Riky Samayoa M.D. Director [facility] Permit #[id number] CHOLESTEROL INTERPRETATION: Desirable: Less than 200 MG/DL Borderline-High Risk: 200-239 MG/DL High-Risk: 240 MG/DL and over 36 HDL INTERPRETATION: Undesirable: High Risk: Less than 40 MG/DL Desirable: Low Risk: Greater than 60 MG/DL 37 LDL INTERPRETATION: Low Risk Optimal Level: LDL Less than 100 MG/DL Near or Above Optimal: LDL 100-129 MG/DL Borderline High Risk: LDL 130-159 MG/DL High Risk: LDL 160-189 MG/DL Very High Risk: LDL Greater than 189 MG/DL 38 Anion gap measurement may be of limited value in the presence of any alkalosis, especially in a combined acid base disorder. . 39 A metabolite of Naproxen, O-desmethylnaproxen, has been shown to interfere with the Jendrassik-Chamita method for measuring total bilirubin. Samples from patients who have taken Naproxen have shown spurious elevation in total bilirubin levels. 40 Because ethnic data is not always readily available, this report includes an eGFR for both -Americans and non- Americans. The National Kidney Disease Education Program (NKDEP) does not endorse the use of the MDRD equation for patients that are not between the ages of 18 and 70, are , have extremes of body size, muscle mass, or nutritional status, or are non- or non-. According to the National Kidney Foundation, irrespective of diagnosis, the stage of the disease is based on the level of kidney function: Stage Description GFR(mL/min/1.73 m(2)) 1 Kidney damage with normal or decreased GFR 90 2 Kidney damage with mild decrease in GFR 60-89 3 Moderate decrease in GFR 30-59 4 Severe decrease in GFR 15-29 5 Kidney failure <15 (or dialysis) 41 THERAPEUTIC TARGET FOR THE TREATMENT OF DIABETES MELLITUS PATIENTS IS <7% HBA1C, AND IN SELECTIVE PATIENTS <6.0%. PLEASE REFER TO [place] [employer] DIABETIC CARE GUIDELINES FOR FURTHER INFORMATION. 42 Test Performed by: [facility] Dpt of Lab Med and Pathology [address] [place] [address] Tentmaker: Souleymane Weinstein III, M.D. 43 -- REFERENCE VALUE -- Not present Test Performed by: [facility] Dpt of Lab Med and Pathology [address] [place] [address] Tentmaker: Souleymane Weinstein III, M.D. 44 CHOLESTEROL INTERPRETATION: Desirable: Less than 200 MG/DL Borderline-High Risk: 200-239 MG/DL High-Risk: 240 MG/DL and over 45 HDL INTERPRETATION: Undesirable: High Risk: Less than 40 MG/DL Desirable: Low Risk: Greater than 60 MG/DL 46 LDL INTERPRETATION: Low Risk Optimal Level: LDL Less than 100 MG/DL Near or Above Optimal: LDL 100-129 MG/DL Borderline High Risk: LDL 130-159 MG/DL High Risk: LDL 160-189 MG/DL Very High Risk: LDL Greater than 189 MG/DL 47 CHOLESTEROL INTERPRETATION: Desirable: Less than 200 MG/DL Borderline-High Risk: 200-239 MG/DL High-Risk: 240 MG/DL and over 48 HDL INTERPRETATION: Undesirable: High Risk: Less than 40 MG/DL Desirable: Low Risk: Greater than 60 MG/DL 49 LDL INTERPRETATION: Low Risk Optimal Level: LDL Less than 100 MG/DL Near or Above Optimal: LDL 100-129 MG/DL Borderline High Risk: LDL 130-159 MG/DL High Risk: LDL 160-189 MG/DL Very High Risk: LDL Greater than 189 MG/DL 50 Anion gap measurement may be of limited value in the presence of any alkalosis, especially in a combined acid base disorder. . 51 Because ethnic data is not always readily available, this report includes an eGFR for both -Americans and non- Americans. The National Kidney Disease Education Program (NKDEP) does not endorse the use of the MDRD equation for patients that are not between the ages of 18 and 70, are , have extremes of body size, muscle mass, or nutritional status, or are non- or non-. According to the National Kidney Foundation, irrespective of diagnosis, the stage of the disease is based on the level of kidney function: Stage Description GFR(mL/min/1.73 m(2)) 1 Kidney damage with normal or decreased GFR 90 2 Kidney damage with mild decrease in GFR 60-89 3 Moderate decrease in GFR 30-59 4 Severe decrease in GFR 15-29 5 Kidney failure <15 (or dialysis) 52 Anion gap measurement may be of limited value in the presence of any alkalosis, especially in a combined acid base disorder. . 53 A metabolite of Naproxen, O-desmethylnaproxen, has been shown to interfere with the Jendrassik-Agusto method for measuring total bilirubin. Samples from patients who have taken Naproxen have shown spurious elevation in total bilirubin levels. 54 Because ethnic data is not always readily available, this report includes an eGFR for both -Americans and non- Americans. The National Kidney Disease Education Program (NKDEP) does not endorse the use of the MDRD equation for patients that are not between the ages of 18 and 70, are , have extremes of body size, muscle mass, or nutritional status, or are non- or non-. According to the National Kidney Foundation, irrespective of diagnosis, the stage of the disease is based on the level of kidney function: Stage Description GFR(mL/min/1.73 m(2)) 1 Kidney damage with normal or decreased GFR 90 2 Kidney damage with mild decrease in GFR 60-89 3 Moderate decrease in GFR 30-59 4 Severe decrease in GFR 15-29 5 Kidney failure <15 (or dialysis) 55 Anion gap measurement may be of limited value in the presence of any alkalosis, especially in a combined acid base disorder. . 56 Note change in reference range as of 12/05/07. The change was based on recommendations from the [place] [employer]. 57 A metabolite of Naproxen, O-desmethylnaproxen, has been shown to interfere with the Jendrassik-Agusto method for measuring total bilirubin. Samples from patients who have taken Naproxen have shown spurious elevation in total bilirubin levels. 58 Because ethnic data is not always readily available, this report includes an eGFR for both -Americans and non- Americans. The National Kidney Disease Education Program (NKDEP) does not endorse the use of the MDRD equation for patients that are not between the ages of 18 and 70, are , have extremes of body size, muscle mass, or nutritional status, or are non- or non-. According to the National Kidney Foundation, irrespective of diagnosis, the stage of the disease is based on the level of kidney function: Stage Description GFR(mL/min/1.73 m(2)) 1 Kidney damage with normal or decreased GFR 90 2 Kidney damage with mild decrease in GFR 60-89 3 Moderate decrease in GFR 30-59 4 Severe decrease in GFR 15-29 5 Kidney failure <15 (or dialysis) 59 SMOKING MAY INCREASE VALUES SERUM LEVELS OF CEA MEASURED USING THE [employer] ACCESS IMMUNOASSAY SYSTEM SHOULD NOT BE INTERPRETED ABSOLUTE EVIDENCE OF THE PRESENCE OR ABSENCE OF DISEASE. THE CEA VALUE SHOULD BE USED IN CONJUNCTION WITH OTHER PERTINENT CLINICAL DIAGNOSTIC PROCEDURES. 60 Anion gap measurement may be of limited value in the presence of any alkalosis, especially in a combined acid base disorder. . 61 Note change in reference range as of 12/05/07. The change was based on recommendations from the [place] [employer]. 62 A metabolite of Naproxen, O-desmethylnaproxen, has been shown to interfere with the Jendrassik-Chamita method for measuring total bilirubin. Samples from patients who have taken Naproxen have shown spurious elevation in total bilirubin levels. 63 Because ethnic data is not always readily available, this report includes an eGFR for both -Americans and non- Americans. The National Kidney Disease Education Program (NKDEP) does not endorse the use of the MDRD equation for patients that are not between the ages of 18 and 70, are , have extremes of body size, muscle mass, or nutritional status, or are non- or non-. According to the National Kidney Foundation, irrespective of diagnosis, the stage of the disease is based on the level of kidney function: Stage Description GFR(mL/min/1.73 m(2)) 1 Kidney damage with normal or decreased GFR 90 2 Kidney damage with mild decrease in GFR 60-89 3 Moderate decrease in GFR 30-59 4 Severe decrease in GFR 15-29 5 Kidney failure <15 (or dialysis) 64 SMOKING MAY INCREASE VALUES SERUM LEVELS OF CEA MEASURED USING THE [employer] ACCESS IMMUNOASSAY SYSTEM SHOULD NOT BE INTERPRETED ABSOLUTE EVIDENCE OF THE PRESENCE OR ABSENCE OF DISEASE. THE CEA VALUE SHOULD BE USED IN CONJUNCTION WITH OTHER PERTINENT CLINICAL DIAGNOSTIC PROCEDURES. 65 Anion gap measurement may be of limited value in the presence of any alkalosis, especially in a combined acid base disorder. . 66 Note change in reference range as of 12/05/07. The change was based on recommendations from the [place] [employer]. 67 Please note change in reference range effective 07 . 68 A metabolite of Naproxen, O-desmethylnaproxen, has been shown to interfere with the Jendrassik-Agusto method for measuring total bilirubin. Samples from patients who have taken Naproxen have shown spurious elevation in total bilirubin levels. 69 Because ethnic data is not always readily available, this report includes an eGFR for both -Americans and non- Americans. The National Kidney Disease Education Program (NKDEP) does not endorse the use of the MDRD equation for patients that are not between the ages of 18 and 70, are , have extremes of body size, muscle mass, or nutritional status, or are non- or non-. According to the National Kidney Foundation, irrespective of diagnosis, the stage of the disease is based on the level of kidney function: Stage Description GFR(mL/min/1.73 m(2)) 1 Kidney damage with normal or decreased GFR 90 2 Kidney damage with mild decrease in GFR 60-89 3 Moderate decrease in GFR 30-59 4 Severe decrease in GFR 15-29 5 Kidney failure <15 (or dialysis) 70 SMOKING MAY INCREASE VALUES SERUM LEVELS OF CEA MEASURED USING THE [employer] ACCESS IMMUNOASSAY SYSTEM SHOULD NOT BE INTERPRETED ABSOLUTE EVIDENCE OF THE PRESENCE OR ABSENCE OF DISEASE. THE CEA VALUE SHOULD BE USED IN CONJUNCTION WITH OTHER PERTINENT CLINICAL DIAGNOSTIC PROCEDURES. 71 Anion gap measurement may be of limited value in the presence of any alkalosis, especially in a combined acid base disorder. . 72 Note change in reference range as of 12/05/07. The change was based on recommendations from the [place] [employer]. 73 Please note change in reference range effective 07 . 74 A metabolite of Naproxen, O-desmethylnaproxen, has been shown to interfere with the Jendrassik-Chamita method for measuring total bilirubin. Samples from patients who have taken Naproxen have shown spurious elevation in total bilirubin levels. 75 Because ethnic data is not always readily available, this report includes an eGFR for both -Americans and non- Americans. The National Kidney Disease Education Program (NKDEP) does not endorse the use of the MDRD equation for patients that are not between the ages of 18 and 70, are , have extremes of body size, muscle mass, or nutritional status, or are non- or non-. According to the National Kidney Foundation, irrespective of diagnosis, the stage of the disease is based on the level of kidney function: Stage Description GFR(mL/min/1.73 m(2)) 1 Kidney damage with normal or decreased GFR 90 2 Kidney damage with mild decrease in GFR 60-89 3 Moderate decrease in GFR 30-59 4 Severe decrease in GFR 15-29 5 Kidney failure <15 (or dialysis) 76 SMOKING MAY INCREASE VALUES SERUM LEVELS OF CEA MEASURED USING THE [employer] ACCESS IMMUNOASSAY SYSTEM SHOULD NOT BE INTERPRETED ABSOLUTE EVIDENCE OF THE PRESENCE OR ABSENCE OF DISEASE. THE CEA VALUE SHOULD BE USED IN CONJUNCTION WITH OTHER PERTINENT CLINICAL DIAGNOSTIC PROCEDURES. 77 -- REFERENCE VALUE -- Negative at <1:240 Titers lower than 1:240 may be detectable by recombinant CRMP-5 western blot analysis. CRMP-5 western blot analysis will be done by request on stored serum (held 4 weeks). This supplemental testing is recommended in cases of chorea, vision loss, cranial neuropathy and myelopathy. Contact [facility] Inquiry at [phone] ([phone])to add-on CRMP-5-IgG Western Blot, S. Test Performed by: [facility] Dpt of Lab Med and Pathology [address] [place] [id number] Tentmaker: Souleymane Weinstein III, M.D. 78 Test Performed by: [facility] of Lab Med and Pathology [address] [place] [address] Tentmaker: Souleymane Weinstein III, M.D. 79 Test Performed by: [facility] Med and Pathology [address] [place] [address] Tentmaker: Souleymane Weinstein III, M.D. 80 Test Performed by: [facility] Med and Pathology [address] [place] [address] Tentmaker: Souleymane Weinstein III, M.D. 81 Test Performed by: [facility] of [facility] Med and Pathology [address] [place] [address] Tentmaker: Souleymane Weinstein III, M.D. 82 Test Performed by: [facility] of Lab Med and Pathology [address] [place] [address] Tentmaker: Souleymane Weinstein III, M.D. 83 Test Performed by: [facility] of Lab Med and Pathology [address] [place] [address] Tentmaker: Souleymane Weinstein III, M.D. 84 NORMAL ELECTROPHORETIC PATTERN. 85 NORMAL SERUM IMMUNOFIXATION ELECTROPHORETIC PATTERN. NO MONOCLONAL PROTEIN DETECTED. 86 Anion gap measurement may be of limited value in the presence of any alkalosis, especially in a combined acid base disorder. . 87 Note change in reference range as of 12/05/07. The change was based on recommendations from the [place] [employer]. 88 Please note change in reference range effective 07 . 89 Because ethnic data is not always readily available, this report includes an eGFR for both -Americans and non- Americans. The National Kidney Disease Education Program (NKDEP) does not endorse the use of the MDRD equation for patients that are not between the ages of 18 and 70, are , have extremes of body size, muscle mass, or nutritional status, or are non- or non-. According to the National Kidney Foundation, irrespective of diagnosis, the stage of the disease is based on the level of kidney function: Stage Description GFR(mL/min/1.73 m(2)) 1 Kidney damage with normal or decreased GFR 90 2 Kidney damage with mild decrease in GFR 60-89 3 Moderate decrease in GFR 30-59 4 Severe decrease in GFR 15-29 5 Kidney failure <15 (or dialysis) 90 Anion gap measurement may be of limited value in the presence of any alkalosis, especially in a combined acid base disorder. . 91 Note change in reference range as of 12/05/07. The change was based on recommendations from the [place] [employer]. 92 Please note change in reference range effective 07 . 93 A metabolite of Naproxen, O-desmethylnaproxen, has been shown to interfere with the Jendrassik-Chamita method for measuring total bilirubin. Samples from patients who have taken Naproxen have shown spurious elevation in total bilirubin levels. 94 Because ethnic data is not always readily available, this report includes an eGFR for both -Americans and non- Americans. The National Kidney Disease Education Program (NKDEP) does not endorse the use of the MDRD equation for patients that are not between the ages of 18 and 70, are , have extremes of body size, muscle mass, or nutritional status, or are non- or non-. According to the National Kidney Foundation, irrespective of diagnosis, the stage of the disease is based on the level of kidney function: Stage Description GFR(mL/min/1.73 m(2)) 1 Kidney damage with normal or decreased GFR 90 2 Kidney damage with mild decrease in GFR 60-89 3 Moderate decrease in GFR 30-59 4 Severe decrease in GFR 15-29 5 Kidney failure <15 (or dialysis) 95 CHOLESTEROL INTERPRETATION: Desirable: Less than 200 MG/DL Borderline-High Risk: 200-239 MG/DL High-Risk: 240 MG/DL and over 96 HDL INTERPRETATION: Undesirable: High Risk: Less than 40 MG/DL Desirable: Low Risk: Greater than 60 MG/DL 97 LDL INTERPRETATION: Low Risk Optimal Level: LDL Less than 100 MG/DL Near or Above Optimal: LDL 100-129 MG/DL Borderline High Risk: LDL 130-159 MG/DL High Risk: LDL 160-189 MG/DL Very High Risk: LDL Greater than 189 MG/DL 98 NORMAL ELECTROPHORETIC PATTERN. 99 SMOKING MAY INCREASE VALUES SERUM LEVELS OF CEA MEASURED USING THE [employer] ACCESS IMMUNOASSAY SYSTEM SHOULD NOT BE INTERPRETED ABSOLUTE EVIDENCE OF THE PRESENCE OR ABSENCE OF DISEASE. THE CEA VALUE SHOULD BE USED IN CONJUNCTION WITH OTHER PERTINENT CLINICAL DIAGNOSTIC PROCEDURES. 100 Anion gap measurement may be of limited value in the presence of any alkalosis, especially in a combined acid base disorder. . 101 Note change in reference range as of 12/05/07. The change was based on recommendations from the [place] [employer]. 102 Please note change in reference range effective 07 . 103 A metabolite of Naproxen, O-desmethylnaproxen, has been shown to interfere with the Jendrassik-Agusto method for measuring total bilirubin. Samples from patients who have taken Naproxen have shown spurious elevation in total bilirubin levels. 104 Because ethnic data is not always readily available, this report includes an eGFR for both -Americans and non- Americans. The National Kidney Disease Education Program (NKDEP) does not endorse the use of the MDRD equation for patients that are not between the ages of 18 and 70, are , have extremes of body size, muscle mass, or nutritional status, or are non- or non-. According to the National Kidney Foundation, irrespective of diagnosis, the stage of the disease is based on the level of kidney function: Stage Description GFR(mL/min/1.73 m(2)) 1 Kidney damage with normal or decreased GFR 90 2 Kidney damage with mild decrease in GFR 60-89 3 Moderate decrease in GFR 30-59 4 Severe decrease in GFR 15-29 5 Kidney failure <15 (or dialysis) 105 SMOKING MAY INCREASE VALUES SERUM LEVELS OF CEA MEASURED USING THE [employer] ACCESS IMMUNOASSAY SYSTEM SHOULD NOT BE INTERPRETED ABSOLUTE EVIDENCE OF THE PRESENCE OR ABSENCE OF DISEASE. THE CEA VALUE SHOULD BE USED IN CONJUNCTION WITH OTHER PERTINENT CLINICAL DIAGNOSTIC PROCEDURES. 106 Anion gap measurement may be of limited value in the presence of any alkalosis, especially in a combined acid base disorder. . 107 Note change in reference range as of 12/05/07. The change was based on recommendations from the [place] [employer]. 108 Please note change in reference range effective 07 . 109 ----- RUN DATE: 03/05/08 [facility] NMI LIVE PAGE 1 RUN TIME: 1419 Specimen Inquiry RUN USER: INTERFACE -- Name: FRANCISCA COBURN [facility] [id number] Status: REG REF Re03/04/08 Age/Sex: 68/F Unit#: [id number] Location: [address] [place] [address]. : 40 -- Specimen: [id number] SOUT Spec Date: 03/04/[address]: Joce valdes MD Spec Type: SURGICAL P Received: 03/04/08-8772 Copies to: Alexi Kim III, MD SPECIMEN BIOPSY SIGMOID MASS HISTORY POST-OP DIAGNOSIS: Sigmoid mass at 22; sentinal polyp CLINICAL INFORMATION: Diagnosed 11/21 with diverticulitis; change in bowel habits - constipation; screening GROSS DESCRIPTION The specimen is received in formalin labelled Francisca Coburn, Biopsy Sigmoid Mass, and consists of multiple, faustin, soft tissue fragments measuring 1.3 x 0.8 x 0.2 cm. in aggregate. Submitted entirely, one cassette. DIAGNOSIS Colon, sigmoid, biopsy: A) Invasive intestinal adenocarcinoma, moderately differentiated. B) Depth of invasion cannot be adequately assessed based on this limited biopsy. Signed Electronically by: RIKY SAMAYOA MD 03/05/08 1419 -- -- DEPARTMENT OF PATHOLOGY, [address] [place] [address] [facility] Permit #[id number] Riky Samayoa M.D. Director Nghia Vasquez M.D. Medical Billing Coordinator Dir ricardo -- 110 PATIENT MAY HAVE RESULTS PER DOCTOR'S AUTHORIZATION. Questions regarding this report should be directed to your doctor. 111 INCREASED BETA GLOBULIN- CONSISTENT WITH HYPERLIPO- PROTEINEMIA OR IRON DEFICIENCY. 112 Anion gap measurement may be of limited value in the presence of any alkalosis, especially in a combined acid base disorder. . 113 Note change in reference range as of 12/05/07. The change was based on recommendations from the [place] [employer]. 114 Please note change in reference range effective 07 . 115 THERAPEUTIC TARGET FOR THE TREATMENT OF DIABETES MELLITUS PATIENTS IS <7% HBA1C, AND IN SELECTIVE PATIENTS <6.0%. PLEASE REFER TO [place] [employer] DIABETIC CARE GUIDELINES FOR FURTHER INFORMATION. 116 -- REFERENCE VALUE -- 25-HYDROXY D TOTAL (D2+D3) Optimum levels in the normal population are 25-80 Test Performed by: [facility] Dpt of Lab Med and Pathology [address] [place] [id number] Tentmaker: Souleymane Weinstein III, M.D. 117 THERAPEUTIC TARGET FOR THE TREATMENT OF DIABETES MELLITUS PATIENTS IS <7% HBA1C, AND IN SELECTIVE PATIENTS <6.0%. PLEASE REFER TO [place] [employer] DIABETIC CARE GUIDELINES FOR FURTHER INFORMATION. 118 CHOLESTEROL INTERPRETATION: Desirable: Less than 200 MG/DL Borderline-High Risk: 200-239 MG/DL High-Risk: 240 MG/DL and over 119 LDL INTERPRETATION: Low Risk Optimal Level: LDL Less than 100 MG/DL Near or Above Optimal: LDL 100-129 MG/DL Borderline High Risk: LDL 130-159 MG/DL High Risk: LDL 160-189 MG/DL Very High Risk: LDL Greater than 189 MG/DL 120 HDL INTERPRETATION: Undesirable: High Risk: Less than 40 MG/DL Desirable: Low Risk: Greater than 60 MG/DL 121 Anion gap measurement may be of limited value in the presence of any alkalosis, especially in a combined acid base disorder. . 122 Please note change in reference range effective 07 . 123 Note change in reference range as of 12/05/07. The change was based on recommendations from the [place] [employer]. Procedures Date CPT Code Description Status 03/30/2017 Mammogram Completed 02/27/2017 88365 Diffusing Capacity Completed 02/27/2017 88600 Spirometry Incl Graphic Record Completed 10/27/2016 89419 Admin Of Inj Completed 02/29/2016 81781 Chemotherpy Admin Subcutaneous/Im Non-Hormonal Completed Anti-Neoplastic 05/11/2015 22112 Chemotherpy Admin Subcutaneous/Im Non-Hormonal Completed Anti-Neoplastic 04/01/2015 Bone Mineral Density Test Completed 04/01/2015 Mammogram Completed 03/31/2015 09757 Pulmonary Stress Test Simple Completed 10/07/2014 70530 Admin Of Inj Completed 09/23/2014 85881 Pulmonary Stress Test Simple Completed 04/20/2014 80615 Admin Of Inj Completed 03/30/2014 60676 Rad Exam; Pelvis Completed 03/30/2014 92681 Rad Exam; Hip Unilat Completed 02/17/2014 39237 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 02/17/2014 46873 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 02/12/2014 13921 Spirometry Incl Graphic Record Completed 02/09/2014 09403 Spirometry Incl Graphic Record, Timed Expiratory Flow Completed Rate 02/04/2014 11068 EKG Tracing & Interpretation Completed 12/29/2013 66587 Rad Exam; Hip Unilat Completed 12/29/2013 40016 Rad Exam; Pelvis Completed 10/06/2013 49474 Chemotherpy Admin Subcutaneous/Im Non-Hormonal Completed Anti-Neoplastic 10/06/2013 61439 Admin Of Inj Completed 09/29/2013 34355 Rad Exam; Hip Unilat Comp Completed 09/29/2013 41744 Rad Exam; Pelvis Completed 08/25/2013 50828 Pulmonary Function><Bronchodilator Completed 04/14/2013 28274 Rad Exam; Hip Unilat Completed 04/14/2013 87448 Rad Exam; Pelvis Completed 02/17/2013 Mammogram Completed 02/17/2013 Bone Mineral Density Test Completed 01/06/2013 59379 Rad Exam; Pelvis Completed 01/06/2013 92498 Rad Exam; Hip Unilat Completed 10/14/2012 90767 Rad Exam; Hip Unilat Completed 10/14/2012 68682 Rad Exam; Wrist Limited, 2 Views Completed 10/14/2012 37228 Rad Exam; Pelvis Completed 09/12/2012 24057 Open TX Of Femoral FX,Promimal End,Neck Internal Completed Fixation 09/12/2012 10489 Open TX Of Femoral FX,Promimal End,Neck Internal Completed Fixation 09/12/2012 09423 Closed Treatment Distal Radial FX W/Manipulation Completed 03/20/2012 Colonoscopy Completed 01/25/2011 Bone Mineral Density Test Completed 01/25/2011 Mammogram Completed 02/04/2010 31473 Admin Of Inj Completed 09/29/2009 66628 Pulmonary Function><Bronchodilator Completed 06/23/2009 39166 EKG, Interpretation Only Completed 03/13/2008 26393 EKG, Interpretation Only Completed 03/04/2008 Colonoscopy Completed Encounters Type Date Location Provider CPT E/M Dx Office Visit 03/06/2017 1:20p [facility] Internal Medicine Echo Rivero, N.P. 45960 J44.9 - [place] M81.0 I10 E78.00 R60.0 Z12.31 Office Visit 02/13/2017 1:00p [facility] [address] J44.9 Services Of [facility] R09.02 Office Visit 01/24/2017 1:45p [facility] M.D. 57074 Z96.642 C.M.A. M21.752 Office Visit 08/29/2016 2:00p [facility] Internal Medicine - Alexi Kim, 42170 I10 Zainab Lanier J44.9 M81.0 Office Visit 08/08/2016 1:00p [facility] [address] J44.9 Services [facility] Office Visit 02/29/2016 2:00p [facility] Internal Medicine - Alexi Kim, 45685 I10 Zainab Lanier J44.9 M81.0 E78.2 Z85.038 Z92.29 Office Visit 02/08/2016 1:00p [facility] [place] [address] J44.9 [facility] Office Visit 01/26/2016 1:30p [facility] M.D. 28998 Z96.642 C.M.A. Office Visit 09/28/2015 3:45p [facility] [place] [address] J44.9 [facility] J98.4 Office Visit 03/31/2015 1:00p [facility] [place] [address] J44.9 [facility] R09.02 E66.09 Office Visit 03/01/2015 2:00p [facility] Internal Medicine - Alexi Kim, 85176 I10 Aleja Lanier J44.9 M81.0 Z12.31 E78.2 Office Visit 01/25/2015 10:45a [facility] M.D. 22144 Z96.642 C.M.A. M16.12 Z09 Office Visit 09/28/2014 1:00p [facility] [place] [address] 496 Services Of [facility] 799.02 278.00 Office Visit 06/29/2014 10:45a [facility] M.D. 54342 715.95 C.M.A. v54.81 V43.64 Office Visit 04/20/2014 4:00p [facility] Internal Medicine Alexi Kim, 38428 724.2 - Aleja Lanier 733.01 V87.49 Office Visit 04/13/2014 11:00a [facility] [place] [address] 496 Services [facility] 518.89 799.02 Office Visit 03/04/2014 1:22p [facility] [place] [address] 496 Services [facility] Office Visit 02/26/2014 2:39p [facility] [place] [address] 496 Services [facility] 786.05 Office Visit 02/25/2014 2:31p [facility] [place] [address] 496 Services [facility] 786.05 Office Visit 02/19/2014 3:03p [facility], Elsi Burciaga, 65339 496 Hospitalists N.P. 401.9 278.00 V43.64 Office Visit 02/18/2014 3:03p [facility], Elsi Burciaga, 49774 496 Hospitalists N.P. 401.9 278.00 V43.64 Office Visit 02/17/2014 3:02p [facility], Shanti Cody N.P. 54813 496 Hospitalists 401.9 278.00 V43.64 Office Visit 02/09/2014 10:15a [facility] [place] [address] 496 Services [facility] V72.83 Office Visit 02/04/2014 2:00p [facility] Internal Medicine Alexi Kim, 80542 V72.81 - Aleja Lanier 715.95 401.1 496 272.2 733.01 V04.81 Office Visit 12/29/2013 10:00a [facility] M.D. 94356 715.95 C.M.A. Office Visit 09/29/2013 9:45a [facility] M.D. 42464 715.95 C.M.A. Office Visit 04/14/2013 9:15a [facility] M.D. 80421 820.8 C.M.A. Office Visit 02/24/2013 1:20p [facility] Internal Medicine - Aleix Kim, 20097 496 Aleja Lanier 733.00 272.2 401.1 820.8 Office Visit 01/06/2013 9:00a [facility] M.D. 05845 813.42 C.M.A. 820.8 Office Visit 09/15/2012 1:32p [facility], Shanti Cody, N.P. 89204 492.8 Hospitalists 276.1 820.8 813.42 Office Visit 09/14/2012 1:31p [facility], Shanti Cody, N.P. 05474 492.8 Hospitalists 276.1 820.8 813.42 Office Visit 09/13/2012 1:31p [facility], Wanda Montaño, 72606 492.8 Hospitalists M.D. 820.8 813.42 Office Visit 09/12/2012 1:30p [facility], Elinor Muñoz, 62385 820.8 Hospitalists M.DDeep 813.42 492.8 276.1 Office Visit 09/12/2012 10:00a [facility] M.D. 54239 820.8 C.M.A. 813.44 Office Visit 02/23/2012 11:00a [facility] Internal Medicine Alexi Kim, 10774 401.1 - Aleja Lanier 496 790.21 272.2 733.00 153.3 Office Visit 08/23/2011 11:00a [facility] Internal Medicine Alexi Kim, 85380 401.1 - Aleja Lanier 496 790.21 272.2 733.00 153.3 Office Visit 02/22/2011 10:40a DO Not Use [facility] At Alexi Kim, 68875 401.1 Henry Lanier 272.2 Office Visit 01/18/2011 2:40p DO Not Use [facility] At Alexi Kim, 20330 401.1 Henry Lanier 272.2 496 790.21 733.00 V76.10 153.8 V04.81 Office Visit 07/11/2010 4:00p DO Not Use [facility] At [facility], 90531 496 [facility] 272.2 401.1 Office Visit 01/10/2010 11:20a DO Not Use [facility] At [facility], 09016 V72.83 [facility] V72.81 366.8 401.9 496 272.2 Office Visit 09/29/2009 11:40a DO Not Use [facility] At [facility], 41868 496 [facility] 401.9 272.2 Office Visit 06/22/2009 11:40a DO Not Use [facility] At [facility], 94591 466.0 [facility].D. Office Visit 06/08/2009 2:00p DO Not Use [facility] At [facility], 77519 401.1 [facility].D. Office Visit 03/01/2009 2:30p DO Not Use [facility] At [facility], 94960 782.3 [facility] 401.1 Office Visit 02/11/2009 2:30p DO Not Use [facility] At [facility], 72825 401.1 [facility] 782.3 Office Visit 10/06/2008 2:15p [facility] At [facility], 14509 724.5 [facility].D. Office Visit 07/29/2008 2:30p [facility] At [facility], 05662 V72.81 [facility].D. 401.9 250.00 272.0 733.00 153.3 Office Visit 01/29/2008 2:00p [facility], 72849 272.0 [facility].D. 401.1 V04.81 Office Visit 01/21/2008 12:00p [facility], 65573 465.9 [facility].D. Office Visit 07/24/2007 2:30p [facility], 95162 250.00 [facility].D. 733.00 401.1 V06.5 V03.82 Office Visit 01/22/2007 2:00p [facility] At Alexi Kim, 59134 250.00 [facility] M.D. 272.0 401.1 V04.81 Plan of Care Future Appointment(s):09/04/2017 4:00 pm - Echo Rivero N.PDeep at [facility] Internal Medicine [facility]03/08/2018 2:20 pm - Echo Rivero N.P. at [facility] Internal Medicine - Moyxcyizg81/01/2018 1:30 pm - Sabrina Chester MD at [facility]05/16/2017 - Sundar Mendiola NPM54.5 Low back painNew Medication:Methocarbamol 750 mgSalsalate 500 mgHydrocodone-Acetaminophen 5-325 mgNew Therapy:Physical TherapyComments:I have ordered some xrays today. I recommend using heat to the are often.I have prescribed the muscle relaxant that you took previously. This may make you tired. Try the salsalate, twice daily with food. Do not take the Advil with this. Use the pain medication sparingly. Do not take this with the muscle relaxant.Follow up:prn
== END 2017-05-28 18:45 | disposition left against medical advice (07) ==
LOC: UCEAST 17:31
DX: K59.00 Constipation, unspecified (principal); M54.9 Dorsalgia, unspecified; Z53.21 Procedure and treatment not carried out due to patient leaving prior to being seen by health care provider

== ENCOUNTER 2017-05-28 18:48 | Inpatient (IN) | payer MEDICARE, BC ==
[2017-05-28] MEDS ORDERED: cloNIDine TAB* 0.1 MG PO ONE (21:52)
[2017-05-29] MEDS ORDERED: Lidocaine 2% JELLY* 6 ML JELLY TOPICAL ONE (00:12)
[2017-05-29] MEDS ORDERED: NS 0.9% 1000 ML* 1,000 ML IV ONE (00:52)
[2017-05-29] MEDS ORDERED: Morphine INJ* 4 MG/ML 1 ML CARPUJECT IV ONE ×2 (00:52→03:33)
[2017-05-29] MEDS ORDERED: Ondansetron INJ* 2 MG/ML VIAL IV ONE (00:52)
[2017-05-29] MEDS ORDERED: diPHENhydraMINE IV* 25 MG in NS 0.9% 50 ML* 50 ML IVPB ONE (01:55)
[2017-05-29] MEDS ORDERED: Dexamethasone IV* 4 MG/ML 1 ML (4 MG) IV SLOW PU ONE (01:56)
[2017-05-29] MEDS ORDERED: Acetaminophen TAB* 325 MG PO ONE (01:56)
[2017-05-29 02:00] LABS: ABS Basophils 0 10^3/ul (0-0.2); ABS Eosinophils 0.2 10^3/ul (0-0.6); ABS Lymphocytes 1.2 10^3/ul (1.0-4.8); ABS Monocytes 1.2 10^3/ul (0-0.8); ABS Neutrophils 5.8 10^3/ul (1.5-7.7); ABS Nucleated RBC 0 10^3/ul; Eosinophil % 1.9 % (0-6); Hematocrit 42 % (35-47); Hemoglobin 14.4 g/dl (12.0-16.0); Lymphocyte % 14.5 % (25-47); Mean Corpuscular HGB Conc 35 g/dl (31-36); Mean Corpuscular Hemoglobin 31 pg (27-31); Mean Corpuscular Volume 91 fL (80-97); Mean Platelet Volume 8 um3 (7.4-10.4); Nucleated Red Blood Cells % 0; Platelet Count 221 10^3/ul (150-450); Red Blood Count 4.58 10^6/ul (4.0-5.4); Red Cell Distribution Width 12 % (10.5-15); White Blood Count 8.4 10^3/ul (3.5-10.8)
[2017-05-29 02:15] LABS: EGFR Non-African American 71.6 (>60)
[2017-05-29] MEDS ORDERED: diPHENhydraMINE IV* 50 MG/ML 1 ml VIAL (BENADRYL) IV ONE (02:21)
[2017-05-29] MEDS ORDERED: Morphine INJ* 4 MG/ML 1 ML SYRINGE (NEW SYRINGE VERSION) ONE ×2 (02:38→03:32)
[2017-05-29 03:22] LABS: Urine Appearance Clear; Urine Blood Negative (Negative); Urine Color Yellow; Urine Ketones Negative (Negative); Urine Protein Negative (Negative); Urine Specific Gravity 1.009 (1.010-1.030); Urine Urobilinogen Negative (Negative)
[2017-05-29] MEDS ORDERED: Iohexol 300* (CONTRAST) 10 ML SDV IV ONE (04:04)
[2017-05-29] MEDS ORDERED: Pregabalin CAP(*) 50 MG PO ONE (04:11)
[2017-05-29] MEDS ORDERED: Pregabalin CAP(*) 25 MG PO ONE (04:12)
[2017-05-29] MEDS ORDERED: Magnesium Hydroxide LIQ* 30 ML UDC PO ONE (04:56)
--- NOTE | 2017-05-29 05:03 | ED ---
Joe Gatn Thomas, scribed for Rob Panda MD on 05/28/17 at 2207 . Complex/Multi-Sys Presentation - HPI Summary HPI Summary: The patient is a 77 year old female complaining of lower back pain and constipation for the last two weeks. The patient has been dealing with lower back pain for the last two weeks, for which she was prescribed Vicodin. However , she developed constipation two weeks ago even though she has been taking Colace and Miralax. The patient stopped taking Vicodin and has been taking Robaxin and Advil instead. She denies dysuria. An L-Spine XR obtained two weeks ago showed DDD and ATHEROSCLEROSIS WITH ANEURYSMAL DILATATION OF THE LOWER ABDOMINAL AORTA TO 4 CM. Past medical history includes hypertension and colon cancer. - History Of Current Complaint Chief Complaint: EDAbdPain Time Seen by Provider: 05/28/17 21:07 Hx Obtained From: Patient Onset/Duration: Lasting Weeks - 2, Still Present Timing: Constant Severity Initially: Moderate Aggravating Factor(s): Vicodin Alleviating Factor(s): None Associated Signs And Symptoms: Positive: Other - Low back pain, vicodin; NEGATIVE: dysuria - Allergies/Home Medications Allergies/Adverse Reactions: Allergies Allergy/AdvReac Type Severity Reaction Status Date / Time Adhesive Tape Allergy REDDENED Verified 12/31/15 13:32 SKIN iodine Allergy Rash Verified 05/29/17 02:13 MS Codeine [Codeine] Allergy Hives Verified 12/31/15 13:32 MS Milk Protein Extract Allergy HOARSENESS, Verified 12/31/15 13:32 [From Spiriva] TICKLE IN THROAT MS Penicillins [Penicillins] Allergy Hives Verified 12/31/15 13:32 MS Pineapple [Pineapple] Allergy MOUTH SORE Verified 12/31/15 13:32 MS Tiotropium [From Spiriva] AdvReac HOARSENESS, Verified 12/31/15 13:32 TICKLE IN THROAT Raisins Allergy GI Upset Uncoded 01/18/16 16:40 PMH/Surg Hx/FS Hx/Imm Hx Endocrine/Hematology History: Denies: Hx Anticoagulant Therapy, Hx Diabetes, Hx Thyroid Disease Cardiovascular History: Reports: Hx Hypertension, Other Cardiovascular Problems/ Disorders Respiratory History: Reports: Hx Asthma, Hx Chronic Obstructive Pulmonary Disease (COPD) Denies: Hx Sleep Apnea GI History: Reports: Other GI Disorders - Colon CA Denies: Hx Ulcer History: Reports: Other Problems/Disorders - Bladder smaller from colon Denies: Hx Dialysis Musculoskeletal History: Reports: Hx Arthritis, Hx Orthopedic Injury, Hx Osteoporosis Denies: Hx Bursitis, Hx Scoliosis, Hx Tendonitis Sensory History: Reports: Hx Cataracts - Had surgery, both eyes, Hx Contacts or Glasses Denies: Hx Glaucoma, Hx Hearing Aid, Other Sensory Impairments Opthamlomology History: Reports: Hx Cataracts - Had surgery, both eyes, Hx Contacts or Glasses Denies: Hx Glaucoma, Other Sensory Impairments Neurological History: Reports: Hx Migraine - childhood migraines resolved at 22 yo., Other Neuro Impairments/Disorders - LEFT HIP SX X 2 MO AGO Denies: Hx Headaches, Hx Nerve Disease - Cancer History Cancer Type, Location and Year: COLON 2007, treateded with Chemo Hx Chemotherapy: Yes - HX COLON CA Hx Radiation Therapy: No - Surgical History Surgery Procedure, Year, and Place: Empyema removal 1983, Broken elbow left repair ORIF (plate) Apr 1999 and later hardware removal Colon cancer dx 2007, colon resection. Hernia repair 2009 Partial L Hip Replacement September 2012 Hx Anesthesia Reactions: No Infectious Disease History: No Infectious Disease History: Denies: Hx Hepatitis, Hx Human Immunodeficiency Virus (HIV), History Other Infectious Disease, Traveled Outside the [place] in Last 30 Days - Family History Known Family History: Positive: Cardiac Disease, Respiratory Disease, Other - Aortic aneurysm - Social History Alcohol Use: Daily Alcohol Amount: 1 GLASS OF WINE DAILY Substance Use Type: Reports: None Hx Tobacco Use: Yes Smoking Status (MU): Former Smoker Amount Used/How Often: 1 1/2 PPD X 30 YEARS Have You Smoked in the Last Year: No Review of Systems Negative: Fever Positive: Other - Constipation Negative: dysuria Positive: Other - Low back pain All Other Systems Reviewed And Are Negative: Yes Physical Exam - Summary Physical Exam Summary: VITAL SIGNS: Reviewed. GENERAL: Patient is a well-developed and nourished FEMALE who is lying comfortable in the stretcher. Patient is not in any acute respiratory distress. HEAD AND FACE: No signs of trauma. No ecchymosis, hematomas or skull depressions. No sinus tenderness. EYES: PERRLA, EOMI x 2, No injected conjunctiva, no nystagmus. EARS: Hearing grossly intact. Ear canals and tympanic membranes are within normal limits. MOUTH: Oropharynx within normal limits. NECK: Supple, trachea is midline, no adenopathy, no JVD, no carotid bruit, no c- spine tenderness, neck with full ROM. CHEST: Symmetric, no tenderness at palpation LUNGS: Clear to auscultation bilaterally. No wheezing or crackles. CVS: Regular rate and rhythm, S1 and S2 present, no murmurs or gallops appreciated. ABDOMEN: Soft, non-tender. Mild to moderate bowel distention. No rebound no guarding, and no masses palpated. Bowel sounds are hyperactive. RECTAL: The rectum is empty. There are no masses or fecal impaction. EXTREMITIES: FROM in all major joints, no edema, no cyanosis or clubbing. NEURO: Alert and oriented x 3. No acute neurological deficits. Speech is normal and follows commands. SKIN: Dry and warm Triage Information Reviewed: Yes Vital Signs On Initial Exam: Initial Vitals Temp Pulse Resp BP Pulse Ox 98.1 F 77 16 184/88 94 05/28/17 18:51 05/28/17 18:51 05/28/17 18:51 05/28/17 18:51 05/28/17 18:51 Vital Signs Reviewed: Yes Diagnostics - Vital Signs Vital Signs Temp Pulse Resp BP Pulse Ox 05/28/17 20:47 98.6 F 80 187/80 95 05/28/17 18:51 98.1 F 77 16 184/88 94 - Laboratory Result Diagrams: 05/29/17 01:50 05/29/17 01:50 Lab Statement: Any lab studies that have been ordered have been reviewed, and results considered in the medical decision making process. - CT CT Abd/Pel CT Interpretation: Positive (See Comments) - Moderate amount of diffuse solid stool. T12 compression fracture could be subacute in age. Consider followup MRI or bone scan to evaluate for residual bone marrow edema. Dr. Panda has reviewed this report. CT Interpretation Completed By: Radiologist Complex Multi-Symp Course/Dx Assessment/Plan: The patient is a 77 year old female complaining of lower back pain and constipation for the last two weeks. She was given Clonidine and a soap suds enema. CT Abd/Pel shows Moderate amount of diffuse solid stool. T12 compression fracture could be subacute in age. Consider followup MRI or bone scan to evaluate for residual bone marrow edema. The patient will be admitted to Dr. Vargas. - Diagnoses Provider Diagnoses: T12 compression fracture, Constipation - Physician Notifications Discussed Care Of Patient With: Tiffany Vargas Time Discussed With Above Provider: 05:20 Instructed by Provider To: Admit As Inpatient Discharge - Discharge Plan Condition: Stable Disposition: ADMITTED TO [facility] Referrals: Echo Rivero NP [Primary Care Provider] - The documentation as recorded by the Joe veliz Thomas accurately reflects the service I personally performed and the decisions made by me, Rob Panda MD.
[2017-05-29] MEDS ORDERED: Al Hydrox/Mg Hydrox/Simet LIQ* 30 ML UDC PO PRN (05:32)
[2017-05-29] MEDS ORDERED: Ondansetron INJ* 2 MG/ML VIAL IV PRN (05:32)
[2017-05-29] MEDS ORDERED: Magnesium CITRATE* 300 ML BTL PO ONE (05:34)
[2017-05-29] MEDS ORDERED: Albuterol HFA INHALER* 8 gm MDI INH PRN (05:37)
[2017-05-29] MEDS: Acetaminophen TAB* 325 MG PO PRN (06:54)
[2017-05-29] MEDS: Heparin VIAL(*) 5000 UNITS/ML VIAL (FIVE THOUSAND) SUBCUT SCH ×3 (06:55→22:31)
--- NOTE | 2017-05-29 08:13 | RAD ---
Indication: Shortness of breath. Single frontal view of the chest performed at 0605 hours was reviewed. Comparison is made with previous exam dated March 02, 2017. No mediastinal shift is noted. Cardiomegaly is noted. Chronic pleural changes are noted. Performed body is noted over the upper chest likely representing overlying jewelry. IMPRESSION: Chronic pleural changes. Mild vascular congestion. No significant change is noted since March 02, 2017. IMPRESSION: NO ACTIVE CARDIOPULMONARY DISEASE IS NOTED.
--- NOTE | 2017-05-29 08:14 | RAD ---
CLINICAL HISTORY: , Pain, back pain COMPARISON: October 08, 2008 TECHNIQUE: Multiple contiguous axial CT scans were obtained of the abdomen and pelvis after the administration of intravenous contrast. Coronal and sagittal multiplanar reformations are submitted for review. Oral contrast was not administered. Delayed images were obtained through the abdomen and pelvis. FINDINGS: LUNG BASES: The lung bases are clear. LIVER: The liver is normal in shape, size, contour, and attenuation. BILE DUCTS: There is no intrahepatic or extrahepatic biliary dilatation. GALLBLADDER: A gallstone is noted. There is no pericholecystic inflammatory change. PANCREAS: The pancreas is normal, without mass or ductal dilatation. SPLEEN: Normal in size and appearance. UPPER GI TRACT: Evaluation of the gastrointestinal tract is limited by incomplete gastric distention. The upper GI tract is unremarkable. SMALL BOWEL AND MESENTERY: The small bowel is normal in contour, course, and caliber. There is no obstruction or dilatation. COLON: The colon is normal in contour, course, caliber. There is no pericolonic inflammatory change. ADRENALS: Normal bilaterally. KIDNEYS: Multiple renal cysts are noted bilaterally. There is no appreciable hydronephrosis or nephrolithiasis. BLADDER: The bladder is smooth in contour. PELVIC ORGANS: Evaluation is limited secondary to streak artifact from a left hip prosthesis. The pelvic organs are grossly normal for technique. AORTA: There is atherosclerosis of the abdominal aorta. There is fusiform ectasia of the infrarenal bowel aorta measuring up to 3.2 cm transversely. IVC: Unremarkable LYMPH NODES: There is no lymphadenopathy by size criteria. ABDOMINAL WALL: There is diastasis recti with a small fat-containing umbilical hernia. There is post surgical change to the anterior abdominal wall with a hernia repair mesh. BONES AND SOFT TISSUES: There is a compression deformity of T12 with a linear lucency paralleling the superior endplate without extension into the posterior elements. There is minimal osseous retropulsion. OTHER: None IMPRESSION: 1. ACUTE/SUBACUTE COMPRESSION FRACTURE OF T12 WITHOUT SIGNIFICANT OSSEOUS RETROPULSION. 2. CHOLELITHIASIS. 3. ATHEROSCLEROSIS. 4. ECTASIA OF THE ABDOMINAL AORTA UP TO 3.2 CM.
[2017-05-29] MEDS: Mometasone/Formoter 200/5 MDI INH SCH ×2 (08:42→21:57)
[2017-05-29] MEDS: Pregabalin CAP(*) 25 MG PO SCH (08:52)
[2017-05-29] MEDS: Senna TAB PO SCH ×2 (08:52→19:46)
[2017-05-29] MEDS: Polyethylene Glycol 3350* 17 GM PACKET PO SCH ×2 (08:52→19:42)
[2017-05-29] MEDS: Docusate CAP* 100 MG PO SCH ×2 (08:52→19:46)
[2017-05-29] MEDS: Hydrochlorothiazide TAB* 25 MG PO SCH (08:52)
[2017-05-29] MEDS: Losartan TAB* 25 MG PO SCH (08:52)
[2017-05-29] MEDS ORDERED: HYDROCHLOR PO SCH (09:00)
[2017-05-29] MEDS ORDERED: IRBESARTAN PO SCH (09:00)
[2017-05-29] MEDS: Methocarbamol TAB* 500 MG PO PRN (09:19)
[2017-05-29] MEDS: traMADol TAB* 50 MG PO PRN (09:19)
[2017-05-29] MEDS: Ketorolac INJ* 15 MG/ML 1 ML VIAL IV PUSH PRN (14:00)
--- NOTE | 2017-05-29 15:30 | HP ---
CC: Echo Rivero NP HISTORY AND PHYSICAL: DATE OF ADMISSION: 05/29/17 TIME OF EVALUATION: 0500. CHIEF COMPLAINT: Back pain and constipation. HISTORY OF PRESENT ILLNESS: This is a 77-year-old female with past medical history of COPD, on 2 L, and osteoporosis who presents to the emergency room with back pain and constipation. The patient states that about 2 weeks ago, she developed lower back pain. She denies any trauma or falls. She went to see her primary care physician on 05/16/17 and she was prescribed Robaxin, Vicodin, and NSAIDs. She states the Robaxin and NSAIDs did help, the Vicodin as well; however, she became very constipated and stopped her Vicodin. Her back pain and her constipation have gotten worsen since, so she came to the emergency room for further evaluation. The patient states her last bowel movement was 2 weeks ago. She normally does not have any issues with moving her bowels. She states she is due for colonoscopy with her history of colon cancer in 2007. In the emergency room, they attempted an enema with minimal relief. Regarding her back pain, she denies any new numbness or tingling or weakness. She is having difficulty ambulating. No history of compression fractures in the past. She denies any fevers. No nausea or vomiting. No abdominal pain, just feelings of needing to have a bowel movement. No urinary symptom. She is chronically short of breath with a chronic cough that has not worsened over the past few days. Otherwise review of systems is negative. In the emergency room, the patient had labs, imaging. She was given Tylenol, clonidine, dexamethasone 4 mg, Benadryl, morphine 8 mg total, Zofran 8 mg, Lyrica and 1 L of fluid, and was referred to hospitalist service for further evaluation. PAST MEDICAL HISTORY: 1. COPD, on 2 L. 2. Hypertension. 3. Peripheral neuropathy as a side effect to her chemotherapy from colon cancer. 4. Left total knee replacement. 5. Recent diagnosis of AAA measuring 4 cm. 6. History of colon cancer status post resection and chemotherapy in 2007. 7. Osteoporosis. 8. Hyperlipidemia. MEDICATIONS: 1. Advil 400 mg as needed. 2. Albuterol inhaler as needed. 3. Ascorbic acid 1000 mg p.o. daily. 4. Avalide 150/12.5 mg p.o. daily. 5. Vitamin B complex. 6. Vitamin E 400 units p.o. daily. 7. Calcium 500 plus vitamin D daily. 8. Colace 100 mg daily. 9. Multivitamin daily. 10. Lyrica 50 mg p.o. at bedtime. 11. Lyrica 25 mg p.o. q. a.m. 12. Prolia 60 mg q. 26 weeks. 13. Simvastatin 20 mg p.o. daily. 14. Symbicort aerosol inhalation b.i.d. ALLERGIES: ADHESIVE TAPE, IODINE, CODEINE, MILK PROTEIN EXTRACT, PENICILLIN, PINEAPPLE, TIOTROPIUM, and RAISINS. FAMILY HISTORY: Reviewed and noncontributory. SOCIAL HISTORY: The patient lives at home alone, she is independent of her ADLs. She has an aide that comes Tuesdays and Fridays to take her out shopping. She ambulates with a walker. She quit smoking in 2003, smoked a pack per day for 20 years, rare alcohol use. Her healthcare proxy is her daughter Lily. Code status is full code. REVIEW OF SYSTEMS: A 14-point review of systems as mentioned in the HPI, otherwise negative. PHYSICAL EXAMINATION GENERAL: No acute distress. Resting comfortably with her daughter at the bedside. VITAL SIGNS: Temp 98.6, pulse rate 80, respiratory rate 18, oxygen saturations 97% on room air, blood pressure 117/80. HEENT: Head, normocephalic. Pupils equal and reactive, anicteric. Oropharynx : Mucous membranes are moist. No erythema or exudate. NECK: Supple, no lymph adenopathy. RESPIRATORY: Diminished breath sounds, bilateral rhonchi with expiratory wheezing. CARDIAC: Regular rate and rhythm, soft systolic murmur heard most prominent at the left sternal base. ABDOMEN: Some moderate distension, firm. No rebound or guarding, diffuse tenderness. EXTREMITIES: +1 pretibial edema, +1 DPs. NEUROLOGIC: Alert and oriented x3. No gross focal neurologic deficits. The patient with pain on her lumbar spine region and the spinous process, in the lower thoracic and lumbar spine region. LABORATORY DATA: White count 8.4, hemoglobin 14.4, hematocrit 42, platelets 221. Sodium 125, potassium 3.7, chloride 86, bicarb 34, BUN 10, creatinine is 0.78. Urinalysis is unremarkable. RADIOGRAPHIC DATA: Abdomen and pelvis CT, moderate amount of diffuse , T12 compression fracture could be subacute in age, consider followup MRI of bone scan to evaluate for residual bone marrow edema. No suspicious bone lesions identified. ASSESSMENT: This is a 77-year-old female with past medical history chronic obstructive pulmonary disease and osteoporosis who presented to the emergency room with back pain and constipation. 1. Back pain. Assessment: The patient found to have a T12 compression fracture, likely in the setting of her osteoporosis. No trauma, no other signs on imaging of it being a pathologic fracture. The patient suffering with constipation as a side effect of the narcotic use. Plan: We will avoid narcotics. We will start her on Toradol and Tramadol as needed and continue her on Robaxin and put in for a PT consult. 2. Constipation: We will order mag-citrate and MiraLAX, senna, and Colace. It seems enema was not effective as there was no stool in her rectal vault. 3. Chronic medical problems: Hypertension, resume her Avalide. 4. Peripheral neuropathy: Resume her Lyrica. 5. Chronic obstructive pulmonary disease : We will resume inhaler regimen. We will get a chest x-ray and make sure there is no underlying malignancy to be concerned related to her T12 compression fracture. 6. FEN: Place patient on regular diet. 7. DVT prophylaxis: The patient's score is high risk. We will place her on heparin subcu t.i.d.. 8. Code status: Full code. PATIENT TIME: Greater than 60 minutes spent doing history and physical, more than half time spent in direct patient contact. [id number]/[facility] #: [id number] EULALIO
--- NOTE | 2017-05-29 17:38 | PN ---
Hospitalist Progress Note Date of Service: 05/29/17 Pt seen and examined. Back pain 2 weeks ago (sunday after she finished up PT on previous sunday). subacute T12 compression fracture. Hyponatremia to 125, denies known history of same. Hx of colon cancer and 30 years smoking. PT has not yet seen. Bowel regimen effective.
[2017-05-29] MEDS: Capsaicin 0.025% CREAM* 60 GM TOPICAL SCH (19:46)
[2017-05-29] MEDS: Pregabalin CAP(*) 50 MG PO SCH (19:46)
[2017-05-30] MEDS: Ketorolac INJ* 15 MG/ML 1 ML VIAL IV PUSH PRN ×2 (00:10→09:26)
[2017-05-30] MEDS: Heparin VIAL(*) 5000 UNITS/ML VIAL (FIVE THOUSAND) SUBCUT SCH ×3 (05:11→21:10)
[2017-05-30 05:19] LABS: ABS Basophils 0 10^3/ul (0-0.2); ABS Eosinophils 0.2 10^3/ul (0-0.6); ABS Lymphocytes 1.2 10^3/ul (1.0-4.8); ABS Monocytes 1.3 10^3/ul (0-0.8); ABS Neutrophils 3.8 10^3/ul (1.5-7.7); ABS Nucleated RBC 0 10^3/ul; Eosinophil % 2.6 % (0-6); Hematocrit 38 % (35-47); Hemoglobin 12.9 g/dl (12.0-16.0); Lymphocyte % 17.9 % (25-47); Mean Corpuscular HGB Conc 34 g/dl (31-36); Mean Corpuscular Hemoglobin 31 pg (27-31); Mean Corpuscular Volume 93 fL (80-97); Mean Platelet Volume 8 um3 (7.4-10.4); Nucleated Red Blood Cells % 0; Platelet Count 200 10^3/ul (150-450); Red Blood Count 4.14 10^6/ul (4.0-5.4); Red Cell Distribution Width 13 % (10.5-15); White Blood Count 6.5 10^3/ul (3.5-10.8)
[2017-05-30] MEDS: Mometasone/Formoter 200/5 MDI INH SCH ×2 (07:42→20:22)
[2017-05-30] MEDS: Hydrochlorothiazide TAB* 25 MG PO SCH (09:23)
[2017-05-30] MEDS: Docusate CAP* 100 MG PO SCH ×2 (09:24→20:10)
[2017-05-30] MEDS: Senna TAB PO SCH ×2 (09:24→20:11)
[2017-05-30] MEDS: Losartan TAB* 25 MG PO SCH (09:25)
[2017-05-30] MEDS: Pregabalin CAP(*) 25 MG PO SCH (09:25)
[2017-05-30] MEDS: Polyethylene Glycol 3350* 17 GM PACKET PO SCH ×2 (09:26→20:09)
[2017-05-30] MEDS: Capsaicin 0.025% CREAM* 60 GM TOPICAL SCH ×2 (09:26→20:08)
[2017-05-30] MEDS: Lidocaine PATCH 5%* 1 PATCH TRANSDERM SCH (15:08)
[2017-05-30] MEDS: Acetaminophen TAB* 325 MG PO PRN (15:09)
--- NOTE | 2017-05-30 18:00 | PN ---
Subjective Date of Service: 05/30/17 Interval History: Worked with Physical therapy, required CGA but was able to ambulate with walker. Pt initially did not want any SNF given poor experience with [facility] but also scared to go home. Changed to inpatient. Legs started to get painful. robaxain still prn. Objective Active Medications: Acetaminophen (Tylenol Tab*) 650 mg PO Q4H PRN PRN Reason: FEVER/PAIN Last Admin: 05/30/17 15:09 Dose: 650 mg Al Hydrox/Mg Hydrox/Simethicone (Maalox Plus*) 30 ml PO Q6H PRN PRN Reason: INDIGESTION Albuterol (Ventolin Hfa Inhaler*) 2 puff INH Q4H PRN PRN Reason: SOB/WHEEZING Capsaicin (Zostrix 0.025% Cream*) 1 applic TOPICAL BID [facility] Last Admin: 05/30/17 09:26 Dose: Not Given Docusate Sodium (Colace Cap*) 100 mg PO BID [facility] Last Admin: 05/30/17 09:24 Dose: 100 mg Heparin Sodium (Porcine) (Heparin Vial(*)) 5,000 units SUBCUT Q8HR [facility] Last Admin: 05/30/17 15:09 Dose: 5,000 units Hydrochlorothiazide (Hydrodiuril Tab*) 12.5 mg PO DAILY [facility] Last Admin: 05/30/17 09:23 Dose: 12.5 mg Ketorolac Tromethamine (Toradol Inj*) 15 mg IV PUSH Q6H PRN PRN Reason: PAIN Last Admin: 05/30/17 09:26 Dose: 15 mg Lidocaine (Lidoderm 5% Patch*) 1 patch TRANSDERM DAILY [facility] Last Admin: 05/30/17 15:08 Dose: 1 patch Losartan Potassium (Cozaar Tab*) 50 mg PO DAILY [facility] Last Admin: 05/30/17 09:25 Dose: 50 mg Methocarbamol (Robaxin Tab*) 500 mg PO TID PRN PRN Reason: SPASMS Last Admin: 05/29/17 09:19 Dose: 500 mg Mometasone Furoate/Formoterol Fumar (Dulera 200/5 Mdi*) 2 puff INH BID [facility] PRN Reason: Protocol Last Admin: 05/30/17 07:42 Dose: 2 puff Ondansetron HCl (Zofran Inj*) 4 mg IV Q4H PRN PRN Reason: NAUSEA/VOMITING Pharmacy Profile Note (Lidocaine Patch Remove*) 1 note N/A 2099 [facility] Polyethylene Glycol/Electrolytes (Miralax*) 17 gm PO 0800,2099 [facility] Last Admin: 05/30/17 09:26 Dose: 17 gm Pregabalin (Lyrica Cap(*)) 50 mg PO BEDTIME [facility] Last Admin: 05/29/17 19:46 Dose: 50 mg Pregabalin (Lyrica Cap(*)) 25 mg PO DAILY [facility] Last Admin: 05/30/17 09:25 Dose: 25 mg Senna (Senokot Tab*) 1 tab PO BID [facility] Last Admin: 05/30/17 09:24 Dose: 1 tab Tramadol HCl (Ultram*) 50 mg PO Q6H PRN PRN Reason: PAIN Last Admin: 05/29/17 09:19 Dose: 50 mg Vital Signs - 8 hr 05/30/17 15:23 Temperature 97.7 F Pulse Rate 68 Respiratory 16 Rate Blood Pressure 145/60 (mmHg) O2 Sat by Pulse 94 Oximetry Oxygen Devices in Use Now: Nasal Cannula Appearance: NAD, resting in bed. Eyes: No Scleral Icterus, PERRLA Ears/Nose/Mouth/Throat: NL Teeth, Lips, Gums Neck: Trachea Midline Respiratory: Symmetrical Chest Expansion and Respiratory Effort, Clear to Auscultation Cardiovascular: NL Sounds; No Murmurs; No JVD, RRR Extremities: No Edema, No Clubbing, Cyanosis Skin: No Rash or Ulcers, No Nodules or Sclerosis Neurological: Alert and Oriented x 3, NL Sensation, NL Muscle Strength and Tone Nutrition: Taking PO's Result Diagrams: 05/30/17 04:38 05/30/17 04:38 Additional Lab and Data: Laboratory Results - last 24 hr 05/30/17 05/30/17 04:38 04:38 WBC 6.5 RBC 4.14 Hgb 12.9 Hct 38 MCV 93 MCH 31 MCHC 34 RDW 13 Plt Count 200 MPV 8 Neut % (Auto) 59.0 Lymph % (Auto) 17.9 L [place] % (Auto) 20.0 H Eos % (Auto) 2.6 Baso % (Auto) 0.5 Absolute Neuts (auto) 3.8 Absolute Lymphs (auto) 1.2 Absolute Monos (auto) 1.3 H Absolute Eos (auto) 0.2 Absolute Basos (auto) 0 Absolute Nucleated RBC 0 Nucleated RBC % 0 Sodium 128 L Potassium 4.1 Chloride 90 L Carbon Dioxide 34 H Anion Gap 4 BUN 18 Creatinine 0.98 H Est GFR ( Amer) 70.8 Est GFR (Non-Af Amer) 55.0 BUN/Creatinine Ratio 18.4 Glucose 87 Calcium 9.0 Assess/Plan/Problems-Billing Assessment: 77 yo female PMH COPD, chronic hypoxic respirtory failure, colon cancer, former smoker p/w with subacute T12 compression fracture and constipation on recent opioids. Likely to SNF for further rehab. Hyponatremia. - Patient Problems (1) Compression fracture Current Visit: Yes Status: Acute Code(s): GJP7135 - SNOMED Code(s): 708665426 Comment: Continue physical therapy added lidocaine patch continue tramadol, robaxain, lyrica. Bowel regimen. got toradol also. Now likely to prefer SNF. (2) COPD (chronic obstructive pulmonary disease) Current Visit: No Status: Chronic Code(s): J44.9 - CHRONIC OBSTRUCTIVE PULMONARY DISEASE, UNSPECIFIED SNOMED Code(s): 79961582 Comment: not in acute exacerbation. 2L chronically. duonebs q4h prn, dulera. (3) Colon cancer Current Visit: No Status: Chronic Comment: Dr. Cm follows as outpatient. (4) HTN (hypertension) Current Visit: No Status: Chronic Code(s): I10 - ESSENTIAL (PRIMARY) HYPERTENSION SNOMED Code(s): 20394031 Comment: HCTZ 12.5mg daily. (5) Obesity (BMI 30-39.9) Current Visit: No Status: Chronic Code(s): E66.9 - OBESITY, UNSPECIFIED SNOMED Code(s): 736065384 (6) Abdominal aortic aneurysm (AAA) 30 to 34 mm in diameter Current Visit: Yes Status: Acute Code(s): I71.4 - ABDOMINAL AORTIC ANEURYSM , WITHOUT RUPTURE SNOMED Code(s): 346580743 Comment: 3.[address] Mother and Aunt of AAA rupture in there 70s. outpatient surveillance long smoked history. Status and Disposition: medicine inpatient(changed from obs) Attending: Stewart Angelo
[2017-05-30] MEDS: Methocarbamol TAB* 500 MG PO PRN (18:34)
[2017-05-30] MEDS: traMADol TAB* 50 MG PO PRN (20:10)
[2017-05-30] MEDS: Pregabalin CAP(*) 50 MG PO SCH (20:10)
[2017-05-30] MEDS: Lidocaine Patch REMOVE* 1 NOTE MISC SCH (21:13)
[2017-05-31] MEDS: Ketorolac INJ* 15 MG/ML 1 ML VIAL IV PUSH PRN ×2 (01:21→17:58)
[2017-05-31] MEDS: Heparin VIAL(*) 5000 UNITS/ML VIAL (FIVE THOUSAND) SUBCUT SCH ×3 (05:31→22:21)
[2017-05-31] MEDS: Losartan TAB* 25 MG PO SCH (08:20)
[2017-05-31] MEDS: traMADol TAB* 50 MG PO PRN ×3 (08:20→22:29)
[2017-05-31] MEDS: Hydrochlorothiazide TAB* 25 MG PO SCH (08:20)
[2017-05-31] MEDS: Pregabalin CAP(*) 25 MG PO SCH (08:20)
[2017-05-31] MEDS: Docusate CAP* 100 MG PO SCH ×2 (08:20→20:06)
[2017-05-31] MEDS: Senna TAB PO SCH ×2 (08:21→20:06)
[2017-05-31] MEDS: Lidocaine PATCH 5%* 1 PATCH TRANSDERM SCH (08:21)
[2017-05-31] MEDS: Polyethylene Glycol 3350* 17 GM PACKET PO SCH ×2 (08:21→20:06)
[2017-05-31] MEDS: Methocarbamol TAB* 500 MG PO PRN ×3 (08:21→22:29)
[2017-05-31] MEDS: Capsaicin 0.025% CREAM* 60 GM TOPICAL SCH ×2 (08:31→20:07)
[2017-05-31] MEDS: Mometasone/Formoter 200/5 MDI INH SCH ×2 (08:59→19:53)
--- NOTE | 2017-05-31 14:34 | PN ---
Subjective Date of Service: 05/31/17 Interval History: Able to ambulate more today, 50 ft. No pain with walking but some with transfers and the bed is uncomfortable (slept poorly). Thinks tramadol and lidocaine patch is helping. Some small BMs today. No SOB or other complaints. Daughter checking out SNFs (other then [facility]). Na fell to 125 from 128. Urine studies pending. Objective Active Medications: Acetaminophen (Tylenol Tab*) 650 mg PO Q4H PRN PRN Reason: FEVER/PAIN Last Admin: 05/30/17 15:09 Dose: 650 mg Al Hydrox/Mg Hydrox/Simethicone (Maalox Plus*) 30 ml PO Q6H PRN PRN Reason: INDIGESTION Albuterol (Ventolin Hfa Inhaler*) 2 puff INH Q4H PRN PRN Reason: SOB/WHEEZING Capsaicin (Zostrix 0.025% Cream*) 1 applic TOPICAL BID [facility] Last Admin: 05/31/17 08:31 Dose: Not Given Docusate Sodium (Colace Cap*) 100 mg PO BID [facility] Last Admin: 05/31/17 08:20 Dose: 100 mg Heparin Sodium (Porcine) (Heparin Vial(*)) 5,000 units SUBCUT Q8HR [facility] Last Admin: 05/31/17 13:29 Dose: 5,000 units Hydrochlorothiazide (Hydrodiuril Tab*) 12.5 mg PO DAILY [facility] Last Admin: 05/31/17 08:20 Dose: 12.5 mg Ketorolac Tromethamine (Toradol Inj*) 15 mg IV PUSH Q6H PRN PRN Reason: PAIN Last Admin: 05/31/17 01:21 Dose: 15 mg Lidocaine (Lidoderm 5% Patch*) 1 patch TRANSDERM DAILY [facility] Last Admin: 05/31/17 08:21 Dose: 1 patch Losartan Potassium (Cozaar Tab*) 50 mg PO DAILY [facility] Last Admin: 05/31/17 08:20 Dose: 50 mg Methocarbamol (Robaxin Tab*) 500 mg PO TID PRN PRN Reason: SPASMS Last Admin: 05/31/17 08:21 Dose: 500 mg Mometasone Furoate/Formoterol Fumar (Dulera 200/5 Mdi*) 2 puff INH BID [facility] PRN Reason: Protocol Last Admin: 05/31/17 08:59 Dose: 2 puff Ondansetron HCl (Zofran Inj*) 4 mg IV Q4H PRN PRN Reason: NAUSEA/VOMITING Pharmacy Profile Note (Lidocaine Patch Remove*) 1 note N/A 2100 [facility] Last Admin: 05/30/17 21:13 Dose: 1 note Polyethylene Glycol/Electrolytes (Miralax*) 17 gm PO 0800,2100 [facility] Last Admin: 05/31/17 08:21 Dose: 17 gm Pregabalin (Lyrica Cap(*)) 50 mg PO BEDTIME [facility] Last Admin: 05/30/17 20:10 Dose: 50 mg Pregabalin (Lyrica Cap(*)) 25 mg PO DAILY [facility] Last Admin: 05/31/17 08:20 Dose: 25 mg Senna (Senokot Tab*) 1 tab PO BID [facility] Last Admin: 05/31/17 08:21 Dose: 1 tab Tramadol HCl (Ultram*) 50 mg PO Q6H PRN PRN Reason: PAIN Last Admin: 05/31/17 08:20 Dose: 50 mg Vital Signs - 8 hr 05/31/17 05/31/17 05/31/17 07:18 08:00 08:20 Temperature 98.4 F Pulse Rate 68 Respiratory 16 18 18 Rate Blood Pressure 155/70 (mmHg) O2 Sat by Pulse 98 Oximetry 05/31/17 05/31/17 08:21 10:23 Temperature Pulse Rate Respiratory 18 18 Rate Blood Pressure (mmHg) O2 Sat by Pulse Oximetry Oxygen Devices in Use Now: Nasal Cannula Appearance: NAD Eyes: No Scleral Icterus, PERRLA Ears/Nose/Mouth/Throat: NL Teeth, Lips, Gums Respiratory: Symmetrical Chest Expansion and Respiratory Effort, Clear to Auscultation Cardiovascular: NL Sounds; No Murmurs; No JVD, RRR Abdominal: NL Sounds; No Tenderness; No Distention, No Hepatosplenomegaly Extremities: No Edema, No Clubbing, Cyanosis Skin: No Rash or Ulcers, No Nodules or Sclerosis Neurological: Alert and Oriented x 3, NL Sensation, NL Muscle Strength and Tone Nutrition: Taking PO's Result Diagrams: 05/30/17 04:38 05/31/17 05:19 Additional Lab and Data: Laboratory Results - last 24 hr 05/31/17 05:19 Sodium 125 L Potassium 4.3 Chloride 89 L Carbon Dioxide 34 H Anion Gap 2 BUN 20 Creatinine 0.95 Est GFR ( Amer) 73.4 Est GFR (Non-Af Amer) 57.0 BUN/Creatinine Ratio 21.1 H Glucose 88 Uric Acid 4.6 Calcium 9.1 TSH 2.21 Cortisol 9.98 Assess/Plan/Problems-Billing Assessment: 77 yo female PMH COPD, chronic hypoxic respirtory failure, colon cancer, former smoker p/w with subacute T12 compression fracture and constipation on recent opioids. Likely to SNF for further rehab. Hyponatremia 125. AAA 3.2cm discovered , family hx of same. - Patient Problems (1) Compression fracture Current Visit: Yes Status: Acute Code(s): ELG1482 - SNOMED Code(s): 763201222 Comment: Continue physical therapy continue lidocaine patch continue tramadol, robaxain, lyrica. Bowel regimen. got toradol also. Now prefer SNF though not [facility]. Hx of colon cancer and with hyponatremia will try to rule out SIADH. Toi f/u as outpatient. Consider high res CT chest given smoking hx. Regular CT in 2016 okay. (2) Hyponatremia Current Visit: Yes Status: Acute Code(s): E87.1 - HYPO-OSMOLALITY AND HYPONATREMIA SNOMED Code(s): 73951284 Comment: Uric acid 4.6 wnl, TSH 2.21, cortisol 9.98. Uosm, Nickie, UCrt pending.Serum Osm. consider high res CT chest. 125->128->125. (3) COPD (chronic obstructive pulmonary disease) Current Visit: No Status: Chronic Code(s): J44.9 - CHRONIC OBSTRUCTIVE PULMONARY DISEASE, UNSPECIFIED SNOMED Code(s): 40544930 Comment: not in acute exacerbation. 2L chronically. duonebs q4h prn, dulera. (4) Colon cancer Current Visit: No Status: Chronic Comment: Dr. Cm follows as outpatient. (5) HTN (hypertension) Current Visit: No Status: Chronic Code(s): I10 - ESSENTIAL (PRIMARY) HYPERTENSION SNOMED Code(s): 69272320 Comment: HCTZ 12.5mg daily. (6) Obesity (BMI 30-39.9) Current Visit: No Status: Chronic Code(s): E66.9 - OBESITY, UNSPECIFIED SNOMED Code(s): 243444924 (7) Abdominal aortic aneurysm (AAA) 30 to 34 mm in diameter Current Visit: Yes Status: Acute Code(s): I71.4 - ABDOMINAL AORTIC ANEURYSM , WITHOUT RUPTURE SNOMED Code(s): 879864991 Comment: 3.[address] Mother and Aunt of AAA rupture in there 70s. outpatient surveillance long smoked history. Status and Disposition: medicine inpatient(changed from obs). maybe to SNF on 06/02 vs 06/04. Attending: Stewart Angelo
[2017-05-31] MEDS: Pregabalin CAP(*) 50 MG PO SCH (20:06)
[2017-05-31] MEDS: Lidocaine Patch REMOVE* 1 NOTE MISC SCH (22:21)
[2017-06-01] MEDS: Ketorolac INJ* 15 MG/ML 1 ML VIAL IV PUSH PRN ×3 (01:03→21:07)
[2017-06-01] MEDS: traMADol TAB* 50 MG PO PRN ×2 (05:19→15:21)
[2017-06-01] MEDS: Heparin VIAL(*) 5000 UNITS/ML VIAL (FIVE THOUSAND) SUBCUT SCH ×3 (05:20→22:57)
[2017-06-01 06:19] LABS: EGFR Non-African American 74.9 (>60)
[2017-06-01] MEDS: Mometasone/Formoter 200/5 MDI INH SCH ×2 (08:46→20:36)
[2017-06-01] MEDS: Losartan TAB* 25 MG PO SCH (09:16)
[2017-06-01] MEDS: Lidocaine PATCH 5%* 1 PATCH TRANSDERM SCH (09:16)
[2017-06-01] MEDS: Polyethylene Glycol 3350* 17 GM PACKET PO SCH ×2 (09:16→20:58)
[2017-06-01] MEDS: Acetaminophen TAB* 325 MG PO PRN (09:17)
[2017-06-01] MEDS: Senna TAB PO SCH ×2 (09:17→20:58)
[2017-06-01] MEDS: Methocarbamol TAB* 500 MG PO PRN ×2 (09:17→14:15)
[2017-06-01] MEDS: Docusate CAP* 100 MG PO SCH ×2 (09:17→20:58)
[2017-06-01] MEDS: Pregabalin CAP(*) 25 MG PO SCH (09:17)
[2017-06-01] MEDS: Capsaicin 0.025% CREAM* 60 GM TOPICAL SCH ×2 (09:17→20:57)
--- NOTE | 2017-06-01 13:57 | PN ---
Subjective Date of Service: 06/01/17 Interval History: Feeling improved each day. Walked to window with PT. No pain with ambulation. no BM today yet. some back discomfort now while sitting in chair. HCTZ was stopped given hyponatremia. Na improved to 128. Objective Active Medications: Acetaminophen (Tylenol Tab*) 650 mg PO Q4H PRN PRN Reason: FEVER/PAIN Last Admin: 06/01/17 09:17 Dose: 650 mg Al Hydrox/Mg Hydrox/Simethicone (Maalox Plus*) 30 ml PO Q6H PRN PRN Reason: INDIGESTION Albuterol (Ventolin Hfa Inhaler*) 2 puff INH Q4H PRN PRN Reason: SOB/WHEEZING Capsaicin (Zostrix 0.025% Cream*) 1 applic TOPICAL BID [facility] Last Admin: 06/01/17 09:17 Dose: Not Given Docusate Sodium (Colace Cap*) 100 mg PO BID [facility] Last Admin: 06/01/17 09:17 Dose: 100 mg Heparin Sodium (Porcine) (Heparin Vial(*)) 5,000 units SUBCUT Q8HR [facility] Last Admin: 06/01/17 05:20 Dose: 5,000 units Ketorolac Tromethamine (Toradol Inj*) 15 mg IV PUSH Q6H PRN PRN Reason: PAIN Last Admin: 06/01/17 09:15 Dose: 15 mg Lidocaine (Lidoderm 5% Patch*) 1 patch TRANSDERM DAILY [facility] Last Admin: 06/01/17 09:16 Dose: 1 patch Losartan Potassium (Cozaar Tab*) 50 mg PO DAILY [facility] Last Admin: 06/01/17 09:16 Dose: 50 mg Methocarbamol (Robaxin Tab*) 500 mg PO TID PRN PRN Reason: SPASMS Last Admin: 06/01/17 09:17 Dose: 500 mg Mometasone Furoate/Formoterol Fumar (Dulera 200/5 Mdi*) 2 puff INH BID [facility] PRN Reason: Protocol Last Admin: 06/01/17 08:46 Dose: 2 puff Ondansetron HCl (Zofran Inj*) 4 mg IV Q4H PRN PRN Reason: NAUSEA/VOMITING Pharmacy Profile Note (Lidocaine Patch Remove*) 1 note N/A 2100 [facility] Last Admin: 05/31/17 22:21 Dose: 1 note Polyethylene Glycol/Electrolytes (Miralax*) 17 gm PO 0800,2100 [facility] Last Admin: 06/01/17 09:16 Dose: 17 gm Pregabalin (Lyrica Cap(*)) 50 mg PO BEDTIME [facility] Last Admin: 05/31/17 20:06 Dose: 50 mg Pregabalin (Lyrica Cap(*)) 25 mg PO DAILY [facility] Last Admin: 06/01/17 09:17 Dose: 25 mg Senna (Senokot Tab*) 1 tab PO BID [facility] Last Admin: 06/01/17 09:17 Dose: 1 tab Tramadol HCl (Ultram*) 50 mg PO Q6H PRN PRN Reason: PAIN Last Admin: 06/01/17 05:19 Dose: 50 mg Vital Signs - 8 hr 06/01/17 06/01/17 06/01/17 07:21 08:00 08:11 Temperature 98.1 F Pulse Rate 67 Respiratory 18 18 18 Rate Blood Pressure 164/74 (mmHg) O2 Sat by Pulse 96 Oximetry 06/01/17 06/01/17 09:17 11:42 Temperature Pulse Rate Respiratory 18 18 Rate Blood Pressure (mmHg) O2 Sat by Pulse Oximetry Oxygen Devices in Use Now: Nasal Cannula Appearance: NAD, sitting in chair. Eyes: No Scleral Icterus, PERRLA Ears/Nose/Mouth/Throat: NL Teeth, Lips, Gums, Mucous Membranes Moist Respiratory: Clear to Auscultation - no rhonchi or rales. slight inspiratory wheezing, - Cardiovascular: NL Sounds; No Murmurs; No JVD Abdominal: NL Sounds; No Tenderness; No Distention, No Hepatosplenomegaly Extremities: No Edema, No Clubbing, Cyanosis Skin: No Rash or Ulcers Neurological: Alert and Oriented x 3, NL Sensation, NL Muscle Strength and Tone Nutrition: Taking PO's Result Diagrams: 05/30/17 04:38 06/01/17 05:47 Additional Lab and Data: Laboratory Results - last 24 hr 05/31/17 06/01/17 13:30 05:47 Sodium 128 L Potassium 4.3 Chloride 90 L Carbon Dioxide 33 H Anion Gap 5 BUN 14 Creatinine 0.75 Est GFR ( Amer) 96.4 Est GFR (Non-Af Amer) 74.9 BUN/Creatinine Ratio 18.7 Glucose 87 Calcium 9.1 Ur Random Creatinine 136.33 Ur Random Sodium 55 Assess/Plan/Problems-Billing Assessment: 77 yo female PMH COPD, chronic hypoxic respirtory failure, colon cancer, former smoker p/w with subacute T12 compression fracture and constipation on recent opioids. . Hyponatremia 125 to 128 (home thiazide now held). AAA 3.2cm discovered, family hx of same. Planned to [facility] 06/02 for further rehab - Patient Problems (1) Compression fracture Current Visit: Yes Status: Acute Code(s): AXE2889 - SNOMED Code(s): 849040667 Comment: Continue physical therapy continue lidocaine patch continue tramadol, robaxain, lyrica. Bowel regimen. got toradol also. Now prefer SNF though not [facility]. Hx of colon cancer and with hyponatremia will try to rule out SIADH. Toi f/u as outpatient. Consider high res CT chest given smoking hx. Regular CT in 2016 okay. (2) Hyponatremia Current Visit: Yes Status: Acute Code(s): E87.1 - HYPO-OSMOLALITY AND HYPONATREMIA SNOMED Code(s): 45611485 Comment: Likely thiazide diurectic. HCTZ now stopped. Uric acid 4.6 wnl, TSH 2.21, cortisol 9.98. Uosm and Serum Osm pending consider high res CT chest. 125->128->125-> 128. (3) COPD (chronic obstructive pulmonary disease) Current Visit: No Status: Chronic Code(s): J44.9 - CHRONIC OBSTRUCTIVE PULMONARY DISEASE, UNSPECIFIED SNOMED Code(s): 60863826 Comment: not in acute exacerbation. 2L chronically. duonebs q4h prn, dulera. (4) Colon cancer Current Visit: No Status: Chronic Comment: Dr. Cm follows as outpatient. (5) HTN (hypertension) Current Visit: No Status: Chronic Code(s): I10 - ESSENTIAL (PRIMARY) HYPERTENSION SNOMED Code(s): 75972321 Comment: home HCTZ 12.5mg daily is now held. home was irbsarten -> losartan 50 here (6) Obesity (BMI 30-39.9) Current Visit: No Status: Chronic Code(s): E66.9 - OBESITY, UNSPECIFIED SNOMED Code(s): 138860533 (7) Abdominal aortic aneurysm (AAA) 30 to 34 mm in diameter Current Visit: Yes Status: Acute Code(s): I71.4 - ABDOMINAL AORTIC ANEURYSM , WITHOUT RUPTURE SNOMED Code(s): 086076463 Comment: 3.[address] Mother and Aunt of AAA rupture in there 70s. outpatient surveillance long smoked history. Status and Disposition: medicine inpatient(changed from obs). Myah Jensen on 06/02
[2017-06-01] MEDS ORDERED: hydrALAZINE IV* 20 MG/ML VIAL IV SLOW PU PRN (20:36)
[2017-06-01] MEDS: Pregabalin CAP(*) 50 MG PO SCH (20:58)
[2017-06-01] MEDS: Lidocaine Patch REMOVE* 1 NOTE MISC SCH ×2 (20:59→22:57)
[2017-06-02] MEDS: traMADol TAB* 50 MG PO PRN ×2 (03:55→07:36)
[2017-06-02] MEDS: Methocarbamol TAB* 500 MG PO PRN (03:55)
[2017-06-02 06:36] LABS: EGFR Non-African American 73.8 (>60)
[2017-06-02] MEDS: Heparin VIAL(*) 5000 UNITS/ML VIAL (FIVE THOUSAND) SUBCUT SCH (07:08)
[2017-06-02] MEDS: Senna TAB PO SCH (07:35)
[2017-06-02] MEDS: Docusate CAP* 100 MG PO SCH (07:35)
[2017-06-02] MEDS: Polyethylene Glycol 3350* 17 GM PACKET PO SCH (07:35)
[2017-06-02] MEDS: Pregabalin CAP(*) 25 MG PO SCH (07:35)
[2017-06-02] MEDS: Losartan TAB* 25 MG PO SCH (07:36)
[2017-06-02] MEDS: Lidocaine PATCH 5%* 1 PATCH TRANSDERM SCH (07:36)
[2017-06-02] MEDS: Capsaicin 0.025% CREAM* 60 GM TOPICAL SCH (07:37)
[2017-06-02 07:49] VITALS: BP 157/66
[2017-06-02] MEDS: Mometasone/Formoter 200/5 MDI INH SCH (08:08)
--- NOTE | 2017-06-02 09:46 | RAD ---
HISTORY: Lung cancer, nodule screening COMPARISONS: December 31, 2015 TECHNIQUE: Multiple contiguous axial CT scans of the chest were obtained without intravenous contrast. Coronal and sagittal multiplanar reformations are also submitted for review. FINDINGS: The study is limited by the lack of intravenous contrast. This limits evaluation of the solid organs and vasculature. Evaluation is also limited by patient breathing motion artifact. NECK AND THYROID: The lower neck and thyroid are unremarkable. CHEST WALL: There is no lower cervical, axillary, or supraclavicular lymphadenopathy by size criteria. HEART AND PERICARDIUM: Coronary and valvular cardiac calcifications are noted. AORTA AND PULMONARY VASCULATURE: There is calcification of the thoracic aorta. The pulmonary vasculature is unremarkable. MEDIASTINUM: There is no mediastinal lymphadenopathy by size criteria. NILO: There is no hilar lymphadenopathy by size criteria. AIRWAY AND ESOPHAGUS: The airway is unremarkable, without endobronchial filling defect. The esophagus is grossly normal. LUNG PARENCHYMA: There is centrilobular change. PLEURA: No pleural abnormalities are noted. UPPER ABDOMEN: A gallstone is noted. Renal cysts are noted. BONES AND SOFT TISSUES: There is a chronic compression deformity of T8 similar to the previous examination. There is a compression deformity of T12 that is age indeterminate and is new from the 2016 examination. OTHER: None. IMPRESSION: 1. EMPHYSEMA. 2. ATHEROSCLEROSIS. 3. CHOLELITHIASIS. 4. AGE-INDETERMINATE COMPRESSION DEFORMITY OF T12
[2017-06-02] MEDS: Ketorolac INJ* 15 MG/ML 1 ML VIAL IV PUSH PRN (09:59)
--- NOTE | 2017-06-02 11:48 | DS ---
DISCHARGE SUMMARY: DATE OF ADMISSION: 05/30/17. DATE OF DISCHARGE: 06/02/17. ADMITTING PROVIDER: Tiffany Vargas MD PRIMARY CARE PROVIDER: Echo Rivero NP. ATTENDING PHYSICIAN: Stewart Angelo MD. CHIEF COMPLAINT: Back pain and constipation. PRINCIPAL DIAGNOSES: Subacute T12 compression fracture; opioid induced constipation, hyponatremia. HISTORY OF PRESENT ILLNESS AND HOSPITAL COURSE: Leigh Ann Coburn is a 77-year- old female with past medical history of COPD with chronic hypoxic respiratory failure on 2 L, osteoporosis, peripheral neuropathy secondary to chemotherapy used to treat colon cancer which is status post resection in 2007, hyperlipidemia, hypertension. Two weeks prior to admission she developed low back pain on Sunday following a Sunday physical therapy session. No other falls or trauma. She saw her primary care physician's office on May 16 and she was prescribed Robaxin, Vicodin, NSAIDs, these helped with the pain but she became very constipated and stopped the Vicodin. Her last bowel movement was 2 weeks prior to admission. She had attempted enema with minimal relief in the emergency room. Now, she is on ProAir, vitamin D, calcium supplements for her osteoporosis but denies history of compression fractures in the past. She received mag citrate, MiraLAX, senna, Colace and had a large bowel movement. On the hospital day #1, she was treated conservatively for her compression fracture. Physical therapy worked with her daily and she had improvement. She was given tramadol and Toradol along with lidocaine patch which all seemed to help. Certain positions did continue to be uncomfortable. Her sodium was noted be low on admission at 125. Her hydrochlorothiazide was stopped. TSH was 2.21 and cortisole 9.98. Urine osmolality 540 and random sodium was 55. She has been placed on 1.5 L fluid restriction and continued cessation of her hydrochlorothiazide. She should have a repeat BMP checked within 1 week of discharge. She had a CT scan of her chest given her compression fracture, hyponatremia, smoking history and colon cancer history which did not demonstrate any nodules. She had a lumbosacral x-ray prior to admission on 01/01 which had noted aneurysmal dilation of the lower abdominal aorta up to approximately 4 cm[address] She had a [address] abdomen and pelvis here on 05/29/17 which demonstrated ectasia to 3.2 cm. Given the strong family history of abdominal aortic aneurysm rupture in mother and aunt, this should be continued to follow as an outpatient especially given her female gender and smoking history. If conservative measures did not improve within 8 weeks, reevaluation of her compression fracture would be warranted. DISCHARGE MEDICATIONS: Include: 1. Tylenol 650 mg p.o. q. 4 hours p.r.n. 2. Albuterol HFA inhaler 2 puffs inhaled q. 4 hours p.r.n. 3. Ascorbic acid 1000 mg p.o. daily. 4. Symbicort 2 puffs inhaled b.i.d. 5. Calcium 500 plus D p.o. daily. 6. Prolia 60 mg subcutaneous q. 26 weeks. 7. Docusate 100 mg p.o. b.i.d. 8. Ibuprofen 400 mg p.o. q.h.s. p.r.n. 9. Irbesartan 300 mg p.o. daily (new formulation, had previously been on irbesartan 150 combined with 12.5 of hydrochlorothiazide AKA Avalide, which hydrochlorothiazide is now recommended to be stopped). 10. Lidocaine patch 5% daily. 11. Robaxin 500 mg p.o. t.i.d. (old). 12. Multivitamin tab 1 tab p.o. daily. 13. MiraLAX 17 g p.o. b.i.d. 14. Lyrica 25 mg p.o. q.a.m. and 50 mg p.o. q.h.s. 15. Senna 1 tab p.o. b.i.d. 16. Simvastatin 20 mg p.o. daily. 17. Tramadol 50 mg p.o. q. 6 hours p.r.n. 18. Vitamin D 400 units p.o. daily. 19. Vitamin B 1 capsule p.o. daily. DISCHARGE DIET: No restriction, though 1.5 L water restriction advised until follow up with Echo Rivero. ACTIVITY LEVEL: Receiving physical therapy at [facility], avoid strenuous activities but no bed rest is advised. FOLLOWUP: Please follow up with Echo Rivero within 5 days of discharge from [facility]. Please get a BMP within 7 days of discharge to check her sodium. I would also suggest to follow up with Dr. Cm given the hyponatremia and cancer history and new compression fracture. TIME SPENT: Time spent on discharge is 45 minutes. [id number]/[facility] #: [id number] EULALIO
== END 2017-06-02 11:56 | DRG 543 ==
LOC: ED 18:48 → MEDTELE 05-29 05:32 → OBSVTOIN 05-30 12:00
PROVIDERS: ADMIT Pediatrics; ATTEND Internal Medicine
DX: M80.88XA Other osteoporosis with current pathological fracture, vertebra(e), initial encounter for fracture (principal); J96.11 Chronic respiratory failure with hypoxia; G62.9 Polyneuropathy, unspecified; E87.1 Hypo-osmolality and hyponatremia; E66.01 Morbid (severe) obesity due to excess calories; K59.00 Constipation, unspecified; J44.9 Chronic obstructive pulmonary disease, unspecified; I10 Essential (primary) hypertension; I71.4 Abdominal aortic aneurysm, without rupture; E78.5 Hyperlipidemia, unspecified; Z99.81 Dependence on supplemental oxygen; Z85.038 Personal history of other malignant neoplasm of large intestine; Z87.891 Personal history of nicotine dependence; Z79.1 Long term (current) use of non-steroidal anti-inflammatories (NSAID); Z79.899 Other long term (current) drug therapy; Z91.011 Allergy to milk products; Z88.5 Allergy status to narcotic agent; Z88.0 Allergy status to penicillin; Z88.8 Allergy status to other drugs, medicaments and biological substances; Z91.018 Allergy to other foods; Z91.048 Other nonmedicinal substance allergy status; Z68.39 Body mass index [BMI] 39.0-39.9, adult
CPT/HCPCS: 36415; 71045; 71250; 74177; 80048; 80053; 81003; 82150; 82306; 82533; 82570; 83690; 83930; 83935; 84300; 84443; 84550; 85025; 86140; 94640; 94760; 99285; A9270-GY; G0378; G8978-GP-CI; G8979-GP-CH; J0360; J1100; J1200; J1644; J1885; J2270; J2405; Q9967

== ENCOUNTER 2017-06-15 11:22 | Inpatient (IN) | payer MEDICARE, BC ==
[2017-06-15] MEDS ORDERED: methylPREDNISolone 125 MG* 2 ML VIAL IV ONE (12:45)
[2017-06-15] MEDS ORDERED: NS 0.9% 1000 ML* 1,000 ML IV ONE (12:45)
[2017-06-15 13:20] LABS: ABS Basophils 0.1 10^3/ul (0-0.2); ABS Eosinophils 0.2 10^3/ul (0-0.6); ABS Lymphocytes 0.6 10^3/ul (1.0-4.8); ABS Monocytes 1.2 10^3/ul (0-0.8); ABS Neutrophils 4.9 10^3/ul (1.5-7.7); ABS Nucleated RBC 0 10^3/ul; Eosinophil % 3.5 % (0-6); Hematocrit 38 % (35-47); Hemoglobin 13.2 g/dl (12.0-16.0); Lymphocyte % 8.6 % (25-47); Mean Corpuscular HGB Conc 35 g/dl (31-36); Mean Corpuscular Hemoglobin 32 pg (27-31); Mean Corpuscular Volume 92 fL (80-97); Mean Platelet Volume 7 um3 (7.4-10.4); Nucleated Red Blood Cells % 0; Platelet Count 312 10^3/ul (150-450); Red Blood Count 4.13 10^6/ul (4.0-5.4); Red Cell Distribution Width 12 % (10.5-15)
[2017-06-15 13:23] LABS: INR 0.98 (0.77-1.02)
[2017-06-15 13:28] LABS: EGFR Non-African American 73.8 (>60)
--- NOTE | 2017-06-15 13:54 | RAD ---
INDICATION: Short of breath COMPARISON: May 29, 2017 TECHNIQUE: An AP portable view obtained at 1255 hours is submitted. FINDINGS: Bones/Soft Tissues: There are no acute bony findings. Cardiomediastinal: The cardiac silhouette is unchanged. There is mild interstitial congestion. Lungs: There is no focal consolidation. Pleura: Small bilateral pleural effusions left greater than right. Other: None IMPRESSION: MILD INTERSTITIAL CONGESTION WITH SMALL BILATERAL PLEURAL EFFUSIONS LEFT GREATER THAN RIGHT
[2017-06-15] MEDS ORDERED: Furosemide IV* 10 MG/ML VIAL (40 MG) IV ONE (14:28)
[2017-06-15] MEDS ORDERED: Methocarbamol TAB* 500 MG PO PRN (14:31)
[2017-06-15] MEDS ORDERED: Acetaminophen TAB* 325 MG PO PRN (14:31)
[2017-06-15] MEDS ORDERED: Albuterol 2.5 MG/3 ML NEB.SOL* (0.083%) INH PRN (14:36)
[2017-06-15] MEDS ORDERED: Polyethylene Glycol 3350* 17 GM PACKET PO PRN (14:42)
[2017-06-15] MEDS ORDERED: Furosemide IV* 10 MG/ML VIAL (40 MG) IV SCH (15:00)
[2017-06-15] MEDS ORDERED: Azithromycin TAB* 250 MG PO SCH (15:00)
[2017-06-15] MEDS: Lidocaine PATCH 5%* 1 PATCH TRANSDERM SCH (15:31)
[2017-06-15] MEDS: traMADol TAB* 50 MG PO PRN ×2 (15:31→23:21)
[2017-06-15] MEDS: Albuterol 2.5 MG/3 ML NEB.SOL* (0.083%) INH SCH ×2 (16:25→20:42)
[2017-06-15] MEDS ORDERED: Aspirin TAB* 325 MG PO ONE (17:18)
[2017-06-15] MEDS: Atorvastatin* 10 MG TAB PO SCH (17:53)
[2017-06-15] MEDS: Mometasone/Formoter 200/5 MDI INH SCH (20:36)
--- NOTE | 2017-06-15 22:00 | HP ---
HISTORY AND PHYSICAL: DATE OF ADMISSION: 06/15/17 ADMITTING PROVIDER: Stewart Angelo MD PRIMARY CARE PHYSICIAN: Echo Rivero NP CHIEF COMPLAINT: Acute shortness of breath; productive cough with yellow sputum. HISTORY OF PRESENT ILLNESS: Leigh Ann Coburn is a 77-year-old female with past medical history of chronic hypoxic respiratory failure due to severe COPD on 2 L , hypertension, AAA, recent T12 compression fracture, getting physical therapy at [facility]. She was recently discharged 06/02/17. She has been working with physical therapy well; but for the last 6 days, she started developing some chest tightness and a productive yellow cough. She was seen by a nurse practitioner and prescribed Z-Arnoldo starting 3 days prior to admission. This morning, she was unable to catch her breath, had coughing fits and during this episode was noted to be saturating at 60% on her 2 L and was taken by EMS [place] [facility] [place]. Since here, she has required OxyMask at 10 L satting in the mid 90s, but has frequent bronchospastic coughing attacks where she will desat. She will also desat with an ambulation to bedside commode to the mid 80s and takes 7 minutes per nursing report to recover into the mid 90s and during these episodes, has posturing and pursed lip breathing. She was given 125 mg of Solu-Medrol and 1 L of normal saline in the emergency room. She had also described some increase in puffiness in her feet bilaterally. Her weight has increased slightly from discharge weight, 101.1 kg, up from 99.8 kg. She was of note stopped off her the hydrochlorothiazide component of her antihypertensive medication and doubled on her irbesartan. She does not carry a previous diagnosis of CHF. She has described her last echocardiogram approximately 10 years ago. No echocardiogram in our system. She had a chest x -ray, which was concerning for some mild interstitial edema and small bilateral pleural effusions, right greater than left. She is being referred to this hospitalist service for [id number] hypoxic respiratory failure secondary to COPD and CHF. She was without white count. She denies any fevers, chills. She does get some cold sweats with her coughing episodes. No headaches, abdominal pain. She had been on an aggressive bowel regimen upon discharge given her previous complaints of constipation for more than a week last time and has now been refusing everything except for the Colace because she has frequent bowel movements. She is not able to lie down flat. This is a combination because of breathing issues and her compression fracture. With physical therapy, she has been able to walk daily with them. She is doing upper extremity workouts with occupational therapy. She thought it will be safe to discharge home within 2 weeks from the day of presentation. Her cough was productive of yellow sputum, has began to clear up a little bit today. She denies any recollection of the recommendation to implement a 1.5 L of fluid restriction that was told to her on discharge given her suspicion for SIADH as the etiology of her chronic hyponatremia. Of note, she did get a CT of the chest last time, which did not show any concerning findings for lung nodules or masses. She has a troponin of 0.05 in the emergency room. She denies any chest pain or pressure currently. PAST MEDICAL HISTORY: Includes: 1. Severe COPD with chronic hypoxic respiratory failure, on 2 L. 2. Hypertension. 3. Peripheral neuropathy. 4. Colon cancer, status post chemotherapy. 5. Left total knee replacement. 6. Recent compression fracture of T12. 7. Abdominal aortic aneurysm measured 3.[address] last admission. 8. Osteoporosis. 9. Hyperlipidemia. MEDICATIONS: Include: 1. Multivitamin tab every other day. 2. Calcium carbonate/vitamin D3 500 plus 1 each p.o. daily. 3. Albuterol 2 puffs inhaled q.4 hours p.r.n. 4. Vitamin E 100 units p.o. daily. 5. Lyrica 50 mg q.h.s. and 25 mg p.o. q.a.m. 6. Docusate 100 mg p.o. daily. 7. Simvastatin 20 mg p.o. daily. 8. Tramadol 50 mg q.6 hours. 9. Vitamin B complex 1 capsule p.o. daily. 10. Senna 1 tab p.o. b.i.d. 11. Vitamin C 1000 mg p.o. daily. 12. MiraLAX 17 g p.o. b.i.d. 13. Robaxin (methocarbamol) 500 mg p.o. t.i.d. p.r.n. 14. Lidoderm 5% transdermal patch daily. 15. Irbesartan 300 mg p.o. daily. 16. Azithromycin 250 mg p.o. status post 3 days of 5 day course. 17. Albuterol inhaled 4 times a day p.r.n. 18. Symbicort 2 puffs inhaled b.i.d. ALLERGIES: CODEINE, hives; PENICILLIN, hives; TIOTROPIUM, hoarseness and tickle in throat; ADHESIVE TAPE, IODINE, RAISINS, PINEAPPLE. FAMILY HISTORY: Her mother and maternal aunt both of abdominal aortic aneurysm ruptures. Father had liver and lung cancer. SOCIAL HISTORY: The patient is currently rehabbing at [facility], formerly lived at home alone, but with family support in the nearby community. She is a former smoker, quit 2003 after 20 years of a pack a day. Healthcare proxy is her daughter, Lily. She is a full code. REVIEW OF SYSTEMS: A 14-point review of systems is negative except as per HPI. PHYSICAL EXAMINATION GENERAL: In no acute distress, but intermittent spasms of coughing, which leaves the patient red faced, and hypoxic. VITAL SIGNS: Temperature 98.6; blood pressure 169/89, high of 194/113, currently 148/104; she is satting 95% on 10 L oxygen mask currently, desats down to 85% with ambulation or with coughing spasms; heart rate is between 84 and 101, respiratory rate between 17 and 26. HEENT: Normocephalic, atraumatic. Pupils are equal, round, and reactive to light. Extraocular motions intact. No scleral icterus. Currently wearing an OxyMask. NECK: No cervical lymphadenopathy. PULMONARY: No current wheezing or rhonchi, slightly decreased breath sounds at bases. The patient with coughing spasms that last about a minute observed. CARDIOVASCULAR: Regular rate and rhythm. No murmurs, rubs, or gallops. ABDOMEN: Soft, nontender, distended/obese. EXTREMITIES: Warm, well perfused. Nonpitting edema bilaterally with edematous feet. NEURO: Cranial nerves II through XII intact. Moving all extremities. SKIN: No lesions. No rashes. LABORATORY DATA: White count 7.0, hemoglobin 13.2, hematocrit 38, platelets 312. Sodium 127, potassium 4.3, chloride 89, carbon dioxide 32, BUN 12, creatinine 0.76, glucose 103, lactic 1.2. LFTs within normal limits. Troponin 0.05, CRP 31, BNP 65. Albumin 3.6. Influenza A and B negative. IMAGING: Chest x-ray demonstrated mild interstitial congestion with small bilateral pleural effusions, left greater than right. EKG with left axis deviation. Heart rate 94. Some poor R-wave progression. No ST elevations or depressions. T waves flat in lead III, QTc 423. ASSESSMENT AND PLAN: Leigh Ann Coburn is a 77-year-old female with chronic hypoxic respiratory failure presenting with productive cough x1 week, slight increase in weight and lower extremity edema and chest x-ray concerning for some mild interstitial edema. BNP is only 65, but she is obese with a BMI of 40.6. No recent echocardiogram. She is being admitted for hypoxic respiratory failure now requiring 10 L OxyMask. She got 1 liter of fluid in the ED. I think she has evidence of fluid overload on exam and imaging. We will give her Lasix IV now, repeat again in the evening and b.i.d. thereafter. We will put her on strict Is and Os, daily weights. Of note, she was stopped on her hydrochlorothiazide medication given her chronic hyponatremia that had been 12.5 previously and does not carry a diagnosis of congestive heart failure. We will get an echocardiogram here, it is not in our system. She also will be treated with steroids, now she is status post 125 mg of Solu-Medrol in the ED and continue 40 q.12 starting tomorrow. Sputum culture was obtained, we will continue azithromycin for now. She is afebrile without gross infiltrates on the chest x-ray. Will continue Dulera formulary substitute for Symbicort, albuterol and nebs q.4 hours and q.2 hours p.r.n. given the bronchospastic coughing fits. She is allergic to TIOTROPIUM, so we will hold off on Spiriva or ipratropium neb components. We will continue her irbesartan 300 mg daily for blood pressure and give her Lasix for the congestive heart failure. We will replete lytes as necessary. For compression fracture, continue Lidoderm patch, Robaxin p.r.n. and tramadol q.6 hours p.r.n. We will continue her bowel regimen, but make some of them p.r.n. instead of standing given more recently has been a problem with frequent bowel movements. For her hyponatremia in 127, she had some evidence of syndrome of inappropriate secretion of antidiuretic hormone on previous labs. We will continue fluid restriction at 1.5 L. She had chest CT last admission, did not show any evidence of pulmonary nodule. She does have history of colon cancer and a former smoker. She has a troponin of 0.05, we will trend that x2 more or every 4 hours. No ischemic changes on EKG. She will be monitoring on telemetry as an inpatient. She can eat a heart-healthy diet. She is a full code. Her daughter is her medical surrogate, Lily. Also, continue her Lyrica 50 at bedtime and 25 in the morning. [id number]/[facility] #: [id number]/[facility] #: [id number] EULALIO
--- NOTE | 2017-06-15 22:26 | HP ---
HISTORY AND PHYSICAL: DATE OF ADMISSION: 06/15/17 ADMITTING PROVIDER: Stewart Angelo MD PRIMARY CARE PHYSICIAN: Echo Rivero NP CHIEF COMPLAINT: Acute shortness of breath; productive cough with yellow sputum. HISTORY OF PRESENT ILLNESS: Leigh Ann Coburn is a 77-year-old female with past medical history of chr onic hypoxic respiratory failure due to severe COPD on 2 L, hypertension, AAA, recent T12 compression fracture, getting physical therapy at [facility]. She was recently discharged 06/02/17. She ellison s been working with physical therapy well; but for the last 6 days, she started developing some chest tightness and a productive yellow cough. She was seen by a nurse practitioner and prescribed Z-Arnoldo starting 3 days prior to admission. This morning, she was unable to catch her breath, had coughing f its and during this episode was noted to be saturating at 60% on her 2 L and was taken by EMS to [facility] [place]. Since here, she has required OxyMask at 10 L satting in the mid 90s, but has frequen t bronchospastic coughing attacks where she will desat. She will also desat with an ambulation to be dside commode to the mid 80s and takes 7 minutes per nursing report to recover into the mid 90s and d uring these episodes, has posturing and pursed lip breathing. She was given 125 mg of Solu-Medrol an d 1 L of normal saline in the emergency room. She does attest to increase in bilateral lower extremi ty DICTATION ENDS ABRUPTLY HERE [id number]/[facility] #: [id number]
[2017-06-15] MEDS: Pregabalin CAP(*) 50 MG PO SCH (23:20)
[2017-06-15] MEDS: Furosemide IV* 10 MG/ML VIAL (40 MG) IV SCH (23:23)
[2017-06-15] MEDS: Lidocaine Patch REMOVE* 1 NOTE MISC PATCH OFF SCH (23:39)
[2017-06-15] MEDS: Levofloxacin 750 MG IVPREMIX(* 750 MG/150 ML BAG IVPB SCH (23:48)
[2017-06-16] MEDS: Albuterol 2.5 MG/3 ML NEB.SOL* (0.083%) INH SCH ×7 (00:12→23:32)
[2017-06-16] MEDS: guaiFENesin ER TAB 600 MG PO SCH ×2 (04:06→20:54)
[2017-06-16 05:32] LABS: ABS Basophils 0 10^3/ul (0-0.2); ABS Eosinophils 0 10^3/ul (0-0.6); ABS Lymphocytes 0.5 10^3/ul (1.0-4.8); ABS Monocytes 0.8 10^3/ul (0-0.8); ABS Neutrophils 3.8 10^3/ul (1.5-7.7); ABS Nucleated RBC 0 10^3/ul; Eosinophil % 0 % (0-6); Hematocrit 38 % (35-47); Hemoglobin 13.2 g/dl (12.0-16.0); Lymphocyte % 9.3 % (25-47); Mean Corpuscular HGB Conc 35 g/dl (31-36); Mean Corpuscular Hemoglobin 32 pg (27-31); Mean Corpuscular Volume 91 fL (80-97); Mean Platelet Volume 7 um3 (7.4-10.4); Nucleated Red Blood Cells % 0.1; Platelet Count 340 10^3/ul (150-450); Red Blood Count 4.14 10^6/ul (4.0-5.4); Red Cell Distribution Width 12 % (10.5-15); White Blood Count 5.1 10^3/ul (3.5-10.8)
[2017-06-16 05:45] LABS: EGFR Non-African American 66.7 (>60)
[2017-06-16] MEDS: Mometasone/Formoter 200/5 MDI INH SCH ×2 (07:52→19:47)
--- NOTE | 2017-06-16 09:06 | ED ---
Gabriele Gant Julia, scribed for Heriberto Mejias MD on 06/15/17 at 1235 . Respiratory - HPI Summary HPI Summary: This patient is a 77 year old F BIBA to [facility] with a chief complaint of SOB described as my airway was blocked at 10:00 this morning. Patient reports cough and LE edema at baseline, but cough has worsened, producing yellow phlegm. Symptoms aggravated by heat in [facility]. Patient reports using 2L of O2 at home. She believes she has bronchitis and was given Zithromax on Sunday by [facility] nurse practitioner. She believes the Zithromax is improving her cough. - History of Current Complaint Chief Complaint: EDRespiratoryDistress Stated Complaint: SOB Time Seen by Provider: 06/15/17 11:34 Hx Obtained From: Patient Onset/Duration: Lasting Hours Timing: Constant Pain Intensity: 0 Character: Cough (Productive), Dyspnea at Rest Sputum Amount: Moderate Sputum Color: Yellow Aggravating Factor(s): Other - heat Associated Signs and Symptoms: SOB, Edema Related History: Similar Episode/Dx as - bronchitis - Allergy/Home Medications Allergies/Adverse Reactions: Allergies Allergy/AdvReac Type Severity Reaction Status Date / Time Adhesive Tape Allergy REDDENED Verified 06/15/17 11:34 SKIN codeine Allergy Hives Verified 06/15/17 11:34 iodine Allergy Rash Verified 06/15/17 11:34 Penicillins Allergy Hives Verified 06/15/17 11:34 pineapple Allergy MOUTH SORE Verified 06/15/17 11:34 tiotropium Allergy HOARSENESS, Verified 06/15/17 11:34 [From Spiriva with TICKLE IN HandiHaler] THROAT Raisins Allergy GI Upset Uncoded 06/15/17 11:34 Home Medications: Home Medications Albuterol/Ipratropium NEB.TUAN* [Duoneb (Albuterol 2.5 MG/Ipratropium 0.5 MG)] 1 neb INH QID PRN 06/15/17 [History Confirmed 06/15/17] Azithromycin TAB* [Zithromax TAB (Z-HECTOR) 250 mg #6 tabs] 250 mg PO DAILY [History Confirmed 06/15/17] Calcium Carbonate/Vitamin D3 [Calcium 500 + Vit D Caplet] 1 each PO DAILY [History Confirmed 06/15/17] Irbesartan (NF) [Avapro (NF)] 300 mg PO DAILY 06/15/17 [History Confirmed ] Multivitamins/Minerals TAB* [Theragran/minerals TAB*] 1 tab PO EVERY OTHER DAY 06/15/17 [History Confirmed 06/15/17] Simvastatin TAB(NF) [Zocor(NF)] 20 mg PO DAILY 06/15/17 [History Confirmed 06/15] Vitamin E CAP* 400 unit PO DAILY 06/15/17 [History Confirmed 06/15/17] PMH/Surg Hx/FS Hx/Imm Hx Endocrine/Hematology History: Denies: Hx Anticoagulant Therapy, Hx Diabetes, Hx Thyroid Disease Cardiovascular History: Reports: Hx Aneurysm - AAA diagnosed 05/28/17, Hx Hypercholesterolemia, Hx Hypertension, Other Cardiovascular Problems/Disorders Respiratory History: Reports: Hx Asthma, Hx Chronic Obstructive Pulmonary Disease (COPD) Denies: Hx Sleep Apnea GI History: Reports: Other GI Disorders - Colon CA, current constipation Denies: Hx Ulcer History: Reports: Other Problems/Disorders - Bladder smaller from colon Denies: Hx Dialysis, Hx Renal Disease Musculoskeletal History: Reports: Hx Arthritis, Hx Orthopedic Injury, Hx Osteoporosis, Hx Tendonitis Denies: Hx Bursitis, Hx Scoliosis Sensory History: Reports: Hx Cataracts, Hx Contacts or Glasses Denies: Hx Glaucoma, Hx Hearing Aid, Other Sensory Impairments Opthamlomology History: Reports: Hx Cataracts, Hx Contacts or Glasses Denies: Hx Glaucoma, Other Sensory Impairments Neurological History: Reports: Hx Migraine - childhood migraines resolved at 22 years old, Other Neuro Impairments/Disorders - LEFT HIP SX X 2 MO AGO Denies: Hx Headaches, Hx Nerve Disease - Cancer History Cancer Type, Location and Year: COLON 2007, treated with Chemo Hx Chemotherapy: Yes Hx Radiation Therapy: No - Surgical History Surgery Procedure, Year, and Place: Empyema removal 1983, Broken elbow left repair ORIF (plate) Apr 1999 and later hardware removal Colon cancer dx 2007, colon resection. Hernia repair 2009 Partial L Hip Replacement September 2012 Hx Anesthesia Reactions: No Infectious Disease History: No Infectious Disease History: Denies: Hx Hepatitis, Hx Human Immunodeficiency Virus (HIV), History Other Infectious Disease, Traveled Outside the [place] in Last 30 Days - Family History Known Family History: Positive: Cardiac Disease, Respiratory Disease, Other - Aortic aneurysm - Social History Alcohol Use: Rare Alcohol Amount: 1 GLASS OF WINE DAILY Substance Use Type: Reports: None Hx Tobacco Use: Yes Smoking Status (MU): Former Smoker Amount Used/How Often: 1 1/2 PPD X 30 YEARS Have You Smoked in the Last Year: No Review of Systems Positive: Shortness Of Breath, Cough Positive: Edema All Other Systems Reviewed And Are Negative: Yes Physical Exam - Summary Physical Exam Summary: Appearance: The patient is well-nourished in no acute distress and in no acute pain. Skin: The skin is warm and dry and skin color reflects adequate perfusion. HEENT: The head is normocephalic and atraumatic. The pupils are equal and reactive. The conjunctivae are clear and without drainage. Nares are patent and without drainage. Mouth reveals moist mucous membranes and the throat is without erythema and exudate. The external ears are intact. The ear canals are patent and without drainage. The tympanic membranes are intact. Neck: the neck is supple with full range of motion and non-tender. There are no carotid bruits. There is no neck vein distension. Respiratory: Chest is non-tender. Lungs are clear to auscultation and breath sounds are symmetrical and equal. There are no wheezes present. E:I ratio is increased. Cardiovascular: Heart is regular rate and rhythm. There is no murmur or rub auscultated. There is peripheral edema and pulses are symmetrical and equal. Abdomen: The abdomen is soft and non-tender. There are normal bowel sounds heard in all four quadrants and there is no organomegaly palpated. Musculoskeletal: There is no back tenderness noted. Extremities are non-tender with full range of motion. There is good capillary refill. There is peripheral edema or calf tenderness elicited. Neurological: Patient is alert and oriented to person, place and time. The patient has symmetrical motor strength in all four extremities. Cranial nerves are grossly intact. Deep tendon reflexes are symmetrical and equal in all four extremities. Psychiatric: The patient has an appropriate affect and does not exhibit any anxiety or depression. Triage Information Reviewed: Yes Vital Signs On Initial Exam: Initial Vitals Temp Pulse Resp BP Pulse Ox 98.6 F 95 20 169/89 98 06/15/17 11:26 06/15/17 11:26 06/15/17 11:26 06/15/17 11:26 06/15/17 11:26 Vital Signs Reviewed: Yes Diagnostics - Vital Signs Vital Signs Temp Pulse Resp BP Pulse Ox 06/15/17 11:34 97 26 178/95 95 06/15/17 11:29 98 98 06/15/17 11:26 98.6 F 95 20 169/89 98 - Laboratory Lab Results: Lab Results 06/15/17 06/15/17 06/15/17 Range/Units 13:00 13:00 13:00 WBC 7.0 (3.5-10.8) 10^3/ul RBC 4.13 (4.0-5.4) 10^6/ul Hgb 13.2 (12.0-16.0) g/dl Hct 38 (35-47) % MCV 92 (80-97) fL MCH 32 H (27-31) pg MCHC 35 (31-36) g/dl RDW 12 (10.5-15) % Plt Count 312 (150-450) 10^3/ul MPV 7 L (7.4-10.4) um3 Neut % (Auto) 69.1 (38-83) % Lymph % (Auto) 8.6 L (25-47) % [place] % (Auto) 17.8 H (0-7) % Eos % (Auto) 3.5 (0-6) % Baso % (Auto) 1.0 (0-2) % Absolute Neuts (auto) 4.9 (1.5-7.7) 10^3/ul Absolute Lymphs (auto) 0.6 L (1.0-4.8) 10^3/ul Absolute Monos (auto) 1.2 H (0-0.8) 10^3/ul Absolute Eos (auto) 0.2 (0-0.6) 10^3/ul Absolute Basos (auto) 0.1 (0-0.2) 10^3/ul Absolute Nucleated RBC 0 10^3/ul Nucleated RBC % 0 INR (Anticoag Therapy) (0.77-1.02) Sodium 127 L (133-145) mmol/L Potassium 4.3 (3.5-5.0) mmol/L Chloride 89 L (101-111) mmol/L Carbon Dioxide 32 (22-32) mmol/L Anion Gap 6 (2-11) mmol/L BUN 12 (6-24) mg/dL Creatinine 0.76 (0.51-0.95) mg/dL Est GFR ( Amer) 94.9 (>60) Est GFR (Non-Af Amer) 73.8 (>60) BUN/Creatinine Ratio 15.8 (8-20) Glucose 103 H (70-100) mg/dL Lactic Acid (0.5-2.0) mmol/L Calcium 9.6 (8.6-10.3) mg/dL Total Bilirubin 0.50 (0.2-1.0) mg/dL AST 23 (13-39) U/L ALT 17 (7-52) U/L Alkaline Phosphatase 87 (34-104) U/L Troponin I 0.05 H* (<0.04) ng/mL C-Reactive Protein 31.14 H (< 5.00) mg/L B-Natriuretic Peptide 65 ( - 100) pg/mL Total Protein 6.8 (6.4-8.9) g/dL Albumin 3.6 (3.2-5.2) g/dL Globulin 3.2 (2-4) g/dL Albumin/Globulin Ratio 1.1 (1-3) Influenza A (Rapid) (Negative) Influenza B (Rapid) (Negative) 06/15/17 06/15/17 06/15/17 Range/Units 13:00 13:00 13:19 WBC (3.5-10.8) 10^3/ul RBC (4.0-5.4) 10^6/ul Hgb (12.0-16.0) g/dl Hct (35-47) % MCV (80-97) fL MCH (27-31) pg MCHC (31-36) g/dl RDW (10.5-15) % Plt Count (150-450) 10^3/ul MPV (7.4-10.4) um3 Neut % (Auto) (38-83) % Lymph % (Auto) (25-47) % [place] % (Auto) (0-7) % Eos % (Auto) (0-6) % Baso % (Auto) (0-2) % Absolute Neuts (auto) (1.5-7.7) 10^3/ul Absolute Lymphs (auto) (1.0-4.8) 10^3/ul Absolute Monos (auto) (0-0.8) 10^3/ul Absolute Eos (auto) (0-0.6) 10^3/ul Absolute Basos (auto) (0-0.2) 10^3/ul Absolute Nucleated RBC 10^3/ul Nucleated RBC % INR (Anticoag Therapy) 0.98 (0.77-1.02) Sodium (133-145) mmol/L Potassium (3.5-5.0) mmol/L Chloride (101-111) mmol/L Carbon Dioxide (22-32) mmol/L Anion Gap (2-11) mmol/L BUN (6-24) mg/dL Creatinine (0.51-0.95) mg/dL Est GFR ( Amer) (>60) Est GFR (Non-Af Amer) (>60) BUN/Creatinine Ratio (8-20) Glucose (70-100) mg/dL Lactic Acid 1.2 (0.5-2.0) mmol/L Calcium (8.6-10.3) mg/dL Total Bilirubin (0.2-1.0) mg/dL AST (13-39) U/L ALT (7-52) U/L Alkaline Phosphatase (34-104) U/L Troponin I (<0.04) ng/mL C-Reactive Protein (< 5.00) mg/L B-Natriuretic Peptide ( - 100) pg/mL Total Protein (6.4-8.9) g/dL Albumin (3.2-5.2) g/dL Globulin (2-4) g/dL Albumin/Globulin Ratio (1-3) Influenza A (Rapid) Negative (Negative) Influenza B (Rapid) Negative (Negative) Result Diagrams: 06/16/17 04:49 06/16/17 04:49 Lab Statement: Any lab studies that have been ordered have been reviewed, and results considered in the medical decision making process. - Radiology CXR Radiology Interpretation Completed By: Radiologist - MILD INTERSTITIAL CONGESTION WITH SMALL BILATERAL PLEURAL EFFUSIONS LEFT GREATER THAN RIGHT . ED Physician has reviewed this report. - EKG 1252 Cardiac Rate: NL - at 94 BPM EKG Rhythm: Sinus Rhythm EKG Interpretation: LAVB Disposition - Course Course Of Treatment: Ms. Coburn presented with respiratory insufficiency. She has a history of COPD and has been having an exacerbation. She was found to have some demand ischemia with a slight troponin bump. She was given nebs and steroids. She did not meet septic criteria. - Diagnoses Provider Diagnoses: COPD exacerbation, Bronchitis - Physician Notifications Discussed Care Of Patient With: Abram Angelo MD Instructed by Provider To: Admit As Inpatient Discharge - Discharge Plan Condition: Stable Disposition: ADMITTED TO [facility] The documentation as recorded by the Gabriele veliz Julia accurately reflects the service I personally performed and the decisions made by me, Heriberto Mejias MD.
[2017-06-16] MEDS: Calcium/Vitamin D TAB 250/125* TAB PO SCH (09:12)
[2017-06-16] MEDS: Losartan TAB* 25 MG PO SCH (09:12)
[2017-06-16] MEDS: Vitamin E CAP* 400 UNIT PO SCH (09:12)
[2017-06-16] MEDS: Ascorbic Acid TAB* 500 MG PO SCH (09:12)
[2017-06-16] MEDS: Lidocaine PATCH 5%* 1 PATCH TRANSDERM SCH (09:12)
[2017-06-16] MEDS: Pregabalin CAP(*) 25 MG PO SCH (09:12)
[2017-06-16] MEDS: Docusate CAP* 100 MG PO SCH (09:13)
[2017-06-16] MEDS: Vitamin B Complex TAB PO SCH (09:13)
[2017-06-16] MEDS: methylPREDNISolone SOD 40 MG* 1 ML VIAL IV SCH ×2 (09:13→20:50)
[2017-06-16] MEDS: Furosemide IV* 10 MG/ML VIAL (40 MG) IV SCH ×2 (09:13→20:53)
[2017-06-16] MEDS: Aspirin Low Dose CHEW TAB* 81 MG PO SCH (09:13)
[2017-06-16] MEDS: traMADol TAB* 50 MG PO PRN (09:21)
[2017-06-16] MEDS: Nystatin TOP POWDER* 15 GM BTL TOPICAL SCH ×2 (14:53→22:09)
[2017-06-16] MEDS: Atorvastatin* 10 MG TAB PO SCH (17:08)
--- NOTE | 2017-06-16 18:18 | PN ---
Subjective Date of Service: 06/16/17 Interval History: feels okay, still short of breath, and requiring 10L O2 (baseline is 2L/min). cough is productive of clear sputum. Objective Active Medications: Acetaminophen (Tylenol Tab*) 650 mg PO Q4H PRN PRN Reason: FEVER/PAIN Albuterol (Ventolin 2.5 Mg/3 Ml Neb.Lisandra*) 2.5 mg INH Q2H PRN PRN Reason: SOB/WHEEZING Albuterol (Ventolin 2.5 Mg/3 Ml Neb.Lisandra*) 2.5 mg INH [id number] AWAKE [facility] Last Admin: 06/16/17 15:41 Dose: 2.5 mg Ascorbic Acid (Vitamin C Tab*) 1,000 mg PO DAILY [facility] Last Admin: 06/16/17 09:12 Dose: 1,000 mg Aspirin (Aspirin Low Dose Tab*) 81 mg PO DAILY [facility] Last Admin: 06/16/17 09:13 Dose: 81 mg Atorvastatin Calcium (Lipitor*) 10 mg PO QPM [facility] Last Admin: 06/16/17 17:08 Dose: 10 mg Calcium/Vitamin D (Oscal D Tab 250/125*) 1 tab PO DAILY [facility] Last Admin: 06/16/17 09:12 Dose: 1 tab Docusate Sodium (Colace Cap*) 100 mg PO DAILY [facility] Last Admin: 06/16/17 09:13 Dose: 100 mg Furosemide (Lasix Iv*) 40 mg IV BID [facility] Last Admin: 06/16/17 09:13 Dose: 40 mg Guaifenesin (Mucinex*) 600 mg PO 0900,2100 [facility] Last Admin: 06/16/17 04:06 Dose: 600 mg Levofloxacin/Dextrose (Levaquin 750 Mg Ivpremix(*)) 750 mg in 150 mls @ 100 mls /hr IVPB Q24H [facility] Last Admin: 06/15/17 23:48 Dose: 100 mls/hr Lidocaine (Lidoderm 5% Patch*) 1 patch TRANSDERM DAILY [facility] Last Admin: 06/16/17 09:12 Dose: 1 patch Losartan Potassium (Cozaar Tab*) 100 mg PO DAILY [facility] Last Admin: 06/16/17 09:12 Dose: 100 mg Methocarbamol (Robaxin Tab*) 500 mg PO TID PRN PRN Reason: SPASMS Methylprednisolone Sodium Succinate (Solu-Medrol 40 Mg) 40 mg IV Q12H [facility] Last Admin: 06/16/17 09:13 Dose: 40 mg Mometasone Furoate/Formoterol Fumar (Dulera 200/5 Mdi*) 2 puff INH BID [facility] Last Admin: 06/16/17 07:52 Dose: 2 puff Multivitamins/Minerals (Theragran/Minerals Tab*) 1 tab PO EVERY OTHER DAY [facility] Nystatin (Nystatin Top Powder*) 1 applic TOPICAL BID [facility] Last Admin: 06/16/17 14:53 Dose: 1 applic Pharmacy Profile Note (Lidocaine Patch Remove*) 1 note PATCH OFF 2100 [facility] Last Admin: 06/15/17 23:39 Dose: 1 note Polyethylene Glycol/Electrolytes (Miralax*) 17 gm PO DAILY PRN PRN Reason: CONSTIPATION Pregabalin (Lyrica Cap(*)) 25 mg PO QAM [facility] Last Admin: 06/16/17 09:12 Dose: 25 mg Pregabalin (Lyrica Cap(*)) 50 mg PO BEDTIME [facility] Last Admin: 06/15/17 23:20 Dose: 50 mg Tramadol HCl (Ultram*) 50 mg PO Q6H PRN PRN Reason: PAIN Last Admin: 06/16/17 09:21 Dose: 50 mg Vitamin B Complex/Vitamin E (Complex B-100*) 1 tab PO DAILY [facility] Last Admin: 06/16/17 09:13 Dose: 1 tab Vitamin E (Vitamin E Cap*) 400 unit PO DAILY [facility] Last Admin: 06/16/17 09:12 Dose: 400 unit Vital Signs - 8 hr 06/16/17 06/16/17 06/16/17 11:14 11:37 12:23 Temperature 97.9 F Pulse Rate 88 84 Respiratory 20 18 Rate Blood Pressure 151/69 (mmHg) O2 Sat by Pulse 98 90 Oximetry 06/16/17 06/16/17 15:02 15:40 Temperature 98.5 F Pulse Rate 99 80 Respiratory 16 Rate Blood Pressure 183/89 (mmHg) O2 Sat by Pulse 89 92 Oximetry Oxygen Devices in Use Now: High Flow Nasal Cannula Appearance: alert, no distress, mildly tachypneic when speaking Eyes: No Scleral Icterus Ears/Nose/Mouth/Throat: NL Teeth, Lips, Gums Neck: NL Appearance and Movements; NL JVP Respiratory: - - poor aeration, end expiratory wheezing Cardiovascular: - - systolic murmur RUSB Abdominal: NL Sounds; No Tenderness; No Distention Lymphatic: No Cervical Adenopathy Extremities: No Edema Skin: No Rash or Ulcers Neurological: Alert and Oriented x 3 Result Diagrams: 06/16/17 04:49 06/16/17 04:49 Additional Lab and Data: Lab Results 06/15/17 06/15/17 06/15/17 Range/Units 13:00 13:00 13:00 WBC 7.0 (3.5-10.8) 10^3/ul RBC 4.13 (4.0-5.4) 10^6/ul Hgb 13.2 (12.0-16.0) g/dl Hct 38 (35-47) % MCV 92 (80-97) fL MCH 32 H (27-31) pg MCHC 35 (31-36) g/dl RDW 12 (10.5-15) % Plt Count 312 (150-450) 10^3/ul MPV 7 L (7.4-10.4) um3 Neut % (Auto) 69.1 (38-83) % Lymph % (Auto) 8.6 L (25-47) % [place] % (Auto) 17.8 H (0-7) % Eos % (Auto) 3.5 (0-6) % Baso % (Auto) 1.0 (0-2) % Absolute Neuts (auto) 4.9 (1.5-7.7) 10^3/ul Absolute Lymphs (auto) 0.6 L (1.0-4.8) 10^3/ul Absolute Monos (auto) 1.2 H (0-0.8) 10^3/ul Absolute Eos (auto) 0.2 (0-0.6) 10^3/ul Absolute Basos (auto) 0.1 (0-0.2) 10^3/ul Absolute Nucleated RBC 0 10^3/ul Nucleated RBC % 0 INR (Anticoag Therapy) (0.77-1.02) Sodium 127 L (133-145) mmol/L Potassium 4.3 (3.5-5.0) mmol/L Chloride 89 L (101-111) mmol/L Carbon Dioxide 32 (22-32) mmol/L Anion Gap 6 (2-11) mmol/L BUN 12 (6-24) mg/dL Creatinine 0.76 (0.51-0.95) mg/dL Est GFR ( Amer) 94.9 (>60) Est GFR (Non-Af Amer) 73.8 (>60) BUN/Creatinine Ratio 15.8 (8-20) Glucose 103 H (70-100) mg/dL Lactic Acid (0.5-2.0) mmol/L Calcium 9.6 (8.6-10.3) mg/dL Total Bilirubin 0.50 (0.2-1.0) mg/dL AST 23 (13-39) U/L ALT 17 (7-52) U/L Alkaline Phosphatase 87 (34-104) U/L Troponin I 0.05 H* (<0.04) ng/mL C-Reactive Protein 31.14 H (< 5.00) mg/L B-Natriuretic Peptide 65 ( - 100) pg/mL Total Protein 6.8 (6.4-8.9) g/dL Albumin 3.6 (3.2-5.2) g/dL Globulin 3.2 (2-4) g/dL Albumin/Globulin Ratio 1.1 (1-3) Influenza A (Rapid) (Negative) Influenza B (Rapid) (Negative) 06/15/17 06/15/17 06/15/17 Range/Units 13:00 13:00 13:19 WBC (3.5-10.8) 10^3/ul RBC (4.0-5.4) 10^6/ul Hgb (12.0-16.0) g/dl Hct (35-47) % MCV (80-97) fL MCH (27-31) pg MCHC (31-36) g/dl RDW (10.5-15) % Plt Count (150-450) 10^3/ul MPV (7.4-10.4) um3 Neut % (Auto) (38-83) % Lymph % (Auto) (25-47) % [place] % (Auto) (0-7) % Eos % (Auto) (0-6) % Baso % (Auto) (0-2) % Absolute Neuts (auto) (1.5-7.7) 10^3/ul Absolute Lymphs (auto) (1.0-4.8) 10^3/ul Absolute Monos (auto) (0-0.8) 10^3/ul Absolute Eos (auto) (0-0.6) 10^3/ul Absolute Basos (auto) (0-0.2) 10^3/ul Absolute Nucleated RBC 10^3/ul Nucleated RBC % INR (Anticoag Therapy) 0.98 (0.77-1.02) Sodium (133-145) mmol/L Potassium (3.5-5.0) mmol/L Chloride (101-111) mmol/L Carbon Dioxide (22-32) mmol/L Anion Gap (2-11) mmol/L BUN (6-24) mg/dL Creatinine (0.51-0.95) mg/dL Est GFR ( Amer) (>60) Est GFR (Non-Af Amer) (>60) BUN/Creatinine Ratio (8-20) Glucose (70-100) mg/dL Lactic Acid 1.2 (0.5-2.0) mmol/L Calcium (8.6-10.3) mg/dL Total Bilirubin (0.2-1.0) mg/dL AST (13-39) U/L ALT (7-52) U/L Alkaline Phosphatase (34-104) U/L Troponin I (<0.04) ng/mL C-Reactive Protein (< 5.00) mg/L B-Natriuretic Peptide ( - 100) pg/mL Total Protein (6.4-8.9) g/dL Albumin (3.2-5.2) g/dL Globulin (2-4) g/dL Albumin/Globulin Ratio (1-3) Influenza A (Rapid) Negative (Negative) Influenza B (Rapid) Negative (Negative) Microbiology and Other Data: Microbiology 06/16/17 01:39 Streptococcus pneumoniae Ag Screen - Final Urine Negative S. pneumo Antigen Assess/Plan/Problems-Billing Assessment: - Patient Problems (1) Acute and chronic respiratory failure with hypoxia Current Visit: Yes Status: Acute Code(s): J96.21 - ACUTE AND CHRONIC RESPIRATORY FAILURE WITH HYPOXIA SNOMED Code(s): 46932742 Comment: multifactorial--volume overload + copd exacerbation diurese steroids nebs (2) COPD exacerbation Current Visit: Yes Status: Acute Code(s): J44.1 - CHRONIC OBSTRUCTIVE PULMONARY DISEASE W (ACUTE) EXACERBATION SNOMED Code(s): 098758280 Comment: steroids/nebs as above; likely viral URI induced (3) Pleural effusion Current Visit: Yes Status: Acute Code(s): J90 - PLEURAL EFFUSION, NOT ELSEWHERE CLASSIFIED SNOMED Code(s): 05328153 Comment: continue diuresis (4) Abdominal aortic aneurysm (AAA) 30 to 34 mm in diameter Current Visit: No Status: Acute Code(s): I71.4 - ABDOMINAL AORTIC ANEURYSM, WITHOUT RUPTURE SNOMED Code(s): 705494776 Comment: 3.[address] Mother and Aunt of AAA rupture in there 70s. outpatient surveillance long smoking history. (5) Hyponatremia Current Visit: No Status: Acute Code(s): E87.1 - HYPO-OSMOLALITY AND HYPONATREMIA SNOMED Code(s): 73772350 Comment: Likely thiazide diurectic +/- volume overload. HCTZ now stopped. Uric acid 4.6 wnl, TSH 2.21, cortisol 9.98. Uosm and Serum Osm pending consider high res CT chest. (6) Colon cancer Current Visit: No Status: Chronic Comment: Dr. Cm follows as outpatient. s /p remote colectomy
[2017-06-16] MEDS: Pregabalin CAP(*) 50 MG PO SCH (20:53)
[2017-06-16] MEDS: Levofloxacin 750 MG IVPREMIX(* 750 MG/150 ML BAG IVPB SCH (21:00)
[2017-06-16] MEDS: LORazepam TAB(*) 0.5 MG PO PRN (22:04)
[2017-06-16] MEDS: Lidocaine Patch REMOVE* 1 NOTE MISC PATCH OFF SCH (22:09)
[2017-06-17] MEDS: Albuterol 2.5 MG/3 ML NEB.SOL* (0.083%) INH SCH ×6 (02:58→23:22)
[2017-06-17 05:33] LABS: ABS Basophils 0 10^3/ul (0-0.2); ABS Eosinophils 0 10^3/ul (0-0.6); ABS Lymphocytes 0.5 10^3/ul (1.0-4.8); ABS Monocytes 0.7 10^3/ul (0-0.8); ABS Neutrophils 7.1 10^3/ul (1.5-7.7); ABS Nucleated RBC 0 10^3/ul; Eosinophil % 0 % (0-6); Hematocrit 40 % (35-47); Hemoglobin 13.9 g/dl (12.0-16.0); Lymphocyte % 5.9 % (25-47); Mean Corpuscular HGB Conc 35 g/dl (31-36); Mean Corpuscular Hemoglobin 32 pg (27-31); Mean Corpuscular Volume 92 fL (80-97); Mean Platelet Volume 8 um3 (7.4-10.4); Nucleated Red Blood Cells % 0.1; Platelet Count 377 10^3/ul (150-450); Red Blood Count 4.31 10^6/ul (4.0-5.4); Red Cell Distribution Width 13 % (10.5-15); White Blood Count 8.3 10^3/ul (3.5-10.8)
[2017-06-17 05:45] LABS: EGFR Non-African American 56.4 (>60)
[2017-06-17] MEDS: Mometasone/Formoter 200/5 MDI INH SCH ×2 (08:37→20:36)
[2017-06-17] MEDS: methylPREDNISolone SOD 40 MG* 1 ML VIAL IV SCH ×2 (08:45→19:48)
[2017-06-17] MEDS: guaiFENesin ER TAB 600 MG PO SCH ×2 (08:46→19:48)
[2017-06-17] MEDS: Furosemide IV* 10 MG/ML VIAL (40 MG) IV SCH (08:46)
[2017-06-17] MEDS: Ascorbic Acid TAB* 500 MG PO SCH (08:46)
[2017-06-17] MEDS: Pregabalin CAP(*) 25 MG PO SCH (08:46)
[2017-06-17] MEDS: Vitamin E CAP* 400 UNIT PO SCH (08:46)
[2017-06-17] MEDS: Multivitamins/Minerals TAB PO SCH (08:47)
[2017-06-17] MEDS: Aspirin Low Dose CHEW TAB* 81 MG PO SCH (08:47)
[2017-06-17] MEDS: Vitamin B Complex TAB PO SCH (08:47)
[2017-06-17] MEDS: Losartan TAB* 25 MG PO SCH (08:47)
[2017-06-17] MEDS: Calcium/Vitamin D TAB 250/125* TAB PO SCH (08:47)
[2017-06-17] MEDS: Docusate CAP* 100 MG PO SCH (08:47)
[2017-06-17] MEDS: Lidocaine PATCH 5%* 1 PATCH TRANSDERM SCH (08:48)
[2017-06-17] MEDS: Nystatin TOP POWDER* 15 GM BTL TOPICAL SCH ×2 (08:48→19:55)
--- NOTE | 2017-06-17 09:41 | ECHO ---
Patient: FRANCISCA ARGUELLES [facility] Rec#: [id number] : 1940 Date: 06/17/2017 Age: 77y Height: 161.29 cm / 63.5 in Weight: 105.69 kg / 232.9 lbs Sex: F BSA: 2.08 Room#: 431 Admit Date#: 06/15/2017 Type: Inpatient Referring: Stewart Angelo Reading: Juni Briseno MD Bushler: Faustina Tena RDCS CC: Echo Rivero NP Transthoracic Echocardiogram Indication: Hypoxic respiratory failure BP: 153/88 HR: 75 Rhythm: NSR with PVCs Findings History: COPD, chronic hypoxic respiratory failure, HTN, HLD, colon cancer with chemotherapy 2007, osteoporosis. This study was performed with patient in upright seated position. Patient is unable to lay in left lateral decubitus, due to back pain and shortness of breath. Technical Comments: The study quality is fair. The study is technically limited due to patient body habitus. The study was technically limited due to the patient's inability to lay in the left lateral decubitus position. Completed at 0830. Left Ventricle: The left ventricular chamber size is mildly dilated. Mild concentric left ventricular hypertrophy is observed. Global left ventricular wall motion and contractility are within normal limits. Left ventricular systolic function is at the lower limits of normal. The estimated ejection fraction is 50-55%. Abnormal left ventricular diastolic filling is observed, consistent with impaired relaxation. Left Atrium: The left atrium is moderately dilated. Right Ventricle: Moderator Band present. The right ventricular cavity size is normal. The right ventricular global systolic function is normal. Right Atrium: The right atrium is moderate to severely dilated. Aortic Valve: The aortic valve is trileaflet. Mild aortic leaflet calcification is visualized. Systolic excursion of the aortic valve cusps is reduced. There is no evidence of aortic regurgitation. There is mild aortic stenosis. The mean gradient of the aortic valve is 9.52 mmHg. The peak instantaneous gradient of the aortic valve is 22.05 mmHg. The aortic valve area, by peak velocities, is calculated at 1.28 cm2. The aortic valve area, by VTI's, is calculated at 1.43 cm2. Mitral Valve: There is mitral annular calcification. The mitral valve leaflets are mildly thickened. There is moderate mitral regurgitation. Tricuspid Valve: The tricuspid valve leaflets are normal. There is trace tricuspid regurgitation. The right ventricular systolic pressure is estimated at 20 mmHg. There is evidence that pulmonary hypertension may be underestimated. Pulmonic Valve: The pulmonic valve appears normal. There is a trace pulmonic regurgitation. There is no pulmonic stenosis. Pericardium: There is no significant pericardial effusion. A pericardial fat pad is visualized. Aorta: There is no dilatation of the ascending aorta. There is no dilatation of the aortic arch. The aortic root is normal in size. Pulmonary Artery: The main pulmonary artery is not well visualized. Venous: The inferior vena cava appears normal in size. There is less than 50% respiratory change in the inferior vena cava dimension. Conclusions Left ventricular systolic function is at the lower limits of normal. The estimated ejection fraction is 50-55%. Global left ventricular wall motion and contractility are within normal limits. The left ventricular chamber size is mildly dilated. Mild concentric left ventricular hypertrophy is observed. Abnormal left ventricular diastolic filling is observed, consistent with impaired relaxation. The left atrium is moderately dilated. The right atrium is moderate to severely dilated. There is mild aortic stenosis. There is moderate mitral regurgitation. There is no prior echocardiogram available to compare with at this time. Measurements Name Value Normal Range RVIDd (AP) 2D 3.6 cm (0.9 - 2.6) RAd ISD 4CH 6 cm (3.4 - 4.9) RA (A4C)W 5.5 cm (2.9 - 4.6) IVSd (2D) 1.1 cm (0.6 - 1) LVPWd (2D) 1.1 cm (0.6 - 1) LVIDd (2D) 5.5 cm (3.6 - 5.4) LVIDs (2D) 4.7 cm - LV FS (2D) 13 % (25 - 45) Aortic Annulus 2.2 cm (1.4 - 2.6) Ao root diameter (2D) 3.1 cm (2.1 - 3.5) Ascending Ao 3.2 cm (2.1 - 3.4) Aortic arch 2.4 cm (1.8 - 3.4) LA dimension (AP) 2D 4.7 cm (2.3 - 3.8) LAd ISD 4CH 6 cm (2.9 - 5.3) LA ISD 4CH W 3.9 cm (2.5 - 4.5) Name Value Normal Range LA ESV SP 4CH (A/L) 66 ml - LA ESV SP 2CH (A/L) 79 ml - LA ESV BP (A/L) 75 ml - LA ESV BP (A/L) index 36 ml/m2 - LA ESV SP 4CH (MOD) 59 ml - LA ESV SP 2CH (MOD) 74 ml - Name Value Normal Range MV E-wave Vmax 0.72 m/sec - MV deceleration time 267 msec - MV A-wave Vmax 1.27 m/sec - MV E:A ratio 0.58 ratio - LV septal e' Vmax 0.04 m/sec - LV lateral e' Vmax 0.05 m/sec - LV E:e' septal ratio 18 ratio - LV E:e' lateral ratio 14.4 ratio - Name Value Normal Range AV Vmax 2.35 m/sec - AV VTI 48.21 cm - AV peak gradient 22.05 mmHg - AV mean gradient 9.52 mmHg - LVOT diameter 2 cm - LVOT Vmax 0.96 m/sec - LVOT VTI 21.9 cm - LVOT peak gradient 3.72 mmHg - LVOT mean gradient 2.1 mmHg - DOI (VTI) 0.45 ratio - SHADIA (continuity Vmax) 1.28 cm2 - SHADIA (continuity VTI) 1.43 cm2 - CHRISTIAN Vmax 0.78 m/sec - Name Value Normal Range MR Vmax 5.92 m/sec - MR VTI 232.6 cm - MR flow (PISA) 35.88 ml/sec - MR ERO 0.06 cm2 - MR PISA radius 0.4 cm - MR alias Vmax 37 cm/sec - Name Value Normal Range TR Vmax 1.7 m/sec - TR peak gradient 12 mmHg - RAP 8 mmHg - RVSP 20 mmHg - IVC diameter 1.6 cm - Name Value Normal Range PV Vmax 0.94 m/sec - PV peak gradient 3.59 mmHg -
[2017-06-17] MEDS: Enoxaparin(*) 40 MG/0.4 ML SYR SUBCUT SCH (15:25)
--- NOTE | 2017-06-17 16:00 | PN ---
Subjective Date of Service: 06/17/17 Interval History: weaned down to 6L O2, reports frequent urination with the lasix, feels much better. believes breathing is much less labored. no cough, chest pain, fevers, sputum. Family History: Unchanged from Admission Social History: Unchanged from Admission Past Medical History: Unchanged from Admission Objective Active Medications: Acetaminophen (Tylenol Tab*) 650 mg PO Q4H PRN PRN Reason: FEVER/PAIN Albuterol (Ventolin 2.5 Mg/3 Ml Neb.Lisandra*) 2.5 mg INH Q2H PRN PRN Reason: SOB/WHEEZING Albuterol (Ventolin 2.5 Mg/3 Ml Neb.Lisandra*) 2.5 mg INH [id number] AWAKE [facility] Last Admin: 06/17/17 14:33 Dose: 2.5 mg Ascorbic Acid (Vitamin C Tab*) 1,000 mg PO DAILY [facility] Last Admin: 06/17/17 08:46 Dose: 1,000 mg Aspirin (Aspirin Low Dose Tab*) 81 mg PO DAILY [facility] Last Admin: 06/17/17 08:47 Dose: 81 mg Atorvastatin Calcium (Lipitor*) 10 mg PO QPM [facility] Last Admin: 06/16/17 17:08 Dose: 10 mg Calcium/Vitamin D (Oscal D Tab 250/125*) 1 tab PO DAILY [facility] Last Admin: 06/17/17 08:47 Dose: 1 tab Docusate Sodium (Colace Cap*) 100 mg PO DAILY [facility] Last Admin: 06/17/17 08:47 Dose: 100 mg Enoxaparin Sodium (Lovenox(*)) 40 mg SUBCUT Q24H [facility] Last Admin: 06/17/17 15:25 Dose: 40 mg Furosemide (Lasix Iv*) 40 mg IV BID [facility] Last Admin: 06/17/17 08:46 Dose: 40 mg Guaifenesin (Mucinex*) 600 mg PO 0900,2100 [facility] Last Admin: 06/17/17 08:46 Dose: 600 mg Levofloxacin/Dextrose (Levaquin 750 Mg Ivpremix(*)) 750 mg in 150 mls @ 100 mls /hr IVPB Q24H [facility] Last Admin: 06/16/17 21:00 Dose: 100 mls/hr Lidocaine (Lidoderm 5% Patch*) 1 patch TRANSDERM DAILY [facility] Last Admin: 06/17/17 08:48 Dose: 1 patch Lorazepam (Ativan Tab(*)) 0.5 mg PO Q4H PRN PRN Reason: ANXIETY Last Admin: 06/16/17 22:04 Dose: 0.5 mg Losartan Potassium (Cozaar Tab*) 100 mg PO DAILY [facility] Last Admin: 06/17/17 08:47 Dose: 100 mg Methocarbamol (Robaxin Tab*) 500 mg PO TID PRN PRN Reason: SPASMS Methylprednisolone Sodium Succinate (Solu-Medrol 40 Mg) 40 mg IV Q12H [facility] Last Admin: 06/17/17 08:45 Dose: 40 mg Mometasone Furoate/Formoterol Fumar (Dulera 200/5 Mdi*) 2 puff INH BID [facility] Last Admin: 06/17/17 08:37 Dose: 2 puff Multivitamins/Minerals (Theragran/Minerals Tab*) 1 tab PO EVERY OTHER DAY [facility] Last Admin: 06/17/17 08:47 Dose: 1 tab Nystatin (Nystatin Top Powder*) 1 applic TOPICAL BID [facility] Last Admin: 06/17/17 08:48 Dose: 1 applic Pharmacy Profile Note (Lidocaine Patch Remove*) 1 note PATCH OFF 2100 [facility] Last Admin: 06/16/17 22:09 Dose: 1 note Polyethylene Glycol/Electrolytes (Miralax*) 17 gm PO DAILY PRN PRN Reason: CONSTIPATION Pregabalin (Lyrica Cap(*)) 25 mg PO QAM [facility] Last Admin: 06/17/17 08:46 Dose: 25 mg Pregabalin (Lyrica Cap(*)) 50 mg PO BEDTIME [facility] Last Admin: 06/16/17 20:53 Dose: 50 mg Tramadol HCl (Ultram*) 50 mg PO Q6H PRN PRN Reason: PAIN Last Admin: 06/16/17 09:21 Dose: 50 mg Vitamin B Complex/Vitamin E (Complex B-100*) 1 tab PO DAILY [facility] Last Admin: 06/17/17 08:47 Dose: 1 tab Vitamin E (Vitamin E Cap*) 400 unit PO DAILY [facility] Last Admin: 06/17/17 08:46 Dose: 400 unit Vital Signs - 8 hr 06/17/17 06/17/17 06/17/17 08:05 08:46 11:04 Temperature Pulse Rate 82 Respiratory 20 24 16 Rate Blood Pressure (mmHg) O2 Sat by Pulse 97 Oximetry 06/17/17 06/17/17 06/17/17 11:10 12:08 14:38 Temperature 97.6 F Pulse Rate 84 84 Respiratory 22 20 16 Rate Blood Pressure 141/79 (mmHg) O2 Sat by Pulse 96 97 Oximetry 06/17/17 15:12 Temperature 98.1 F Pulse Rate 82 Respiratory 16 Rate Blood Pressure 134/73 (mmHg) O2 Sat by Pulse 97 Oximetry Oxygen Devices in Use Now: High Flow Nasal Cannula Appearance: tachypneic upon getting back in to bed from the commode Eyes: No Scleral Icterus Ears/Nose/Mouth/Throat: NL Teeth, Lips, Gums Neck: - - JVP 12cm Respiratory: Symmetrical Chest Expansion and Respiratory Effort, Clear to Auscultation, - - no wheezes or rhonchi, decreased breath sounds at the bases Cardiovascular: RRR, No Edema Abdominal: NL Sounds; No Tenderness; No Distention Lymphatic: No Cervical Adenopathy Extremities: - - venous stasis changes, no edema Result Diagrams: 06/17/17 04:36 06/17/17 04:36 Additional Lab and Data: Lab Results 06/15/17 06/15/17 06/15/17 Range/Units 13:00 13:00 13:00 WBC 7.0 (3.5-10.8) 10^3/ul RBC 4.13 (4.0-5.4) 10^6/ul Hgb 13.2 (12.0-16.0) g/dl Hct 38 (35-47) % MCV 92 (80-97) fL MCH 32 H (27-31) pg MCHC 35 (31-36) g/dl RDW 12 (10.5-15) % Plt Count 312 (150-450) 10^3/ul MPV 7 L (7.4-10.4) um3 Neut % (Auto) 69.1 (38-83) % Lymph % (Auto) 8.6 L (25-47) % [place] % (Auto) 17.8 H (0-7) % Eos % (Auto) 3.5 (0-6) % Baso % (Auto) 1.0 (0-2) % Absolute Neuts (auto) 4.9 (1.5-7.7) 10^3/ul Absolute Lymphs (auto) 0.6 L (1.0-4.8) 10^3/ul Absolute Monos (auto) 1.2 H (0-0.8) 10^3/ul Absolute Eos (auto) 0.2 (0-0.6) 10^3/ul Absolute Basos (auto) 0.1 (0-0.2) 10^3/ul Absolute Nucleated RBC 0 10^3/ul Nucleated RBC % 0 INR (Anticoag Therapy) (0.77-1.02) Sodium 127 L (133-145) mmol/L Potassium 4.3 (3.5-5.0) mmol/L Chloride 89 L (101-111) mmol/L Carbon Dioxide 32 (22-32) mmol/L Anion Gap 6 (2-11) mmol/L BUN 12 (6-24) mg/dL Creatinine 0.76 (0.51-0.95) mg/dL Est GFR ( Amer) 94.9 (>60) Est GFR (Non-Af Amer) 73.8 (>60) BUN/Creatinine Ratio 15.8 (8-20) Glucose 103 H (70-100) mg/dL Lactic Acid (0.5-2.0) mmol/L Calcium 9.6 (8.6-10.3) mg/dL Total Bilirubin 0.50 (0.2-1.0) mg/dL AST 23 (13-39) U/L ALT 17 (7-52) U/L Alkaline Phosphatase 87 (34-104) U/L Troponin I 0.05 H* (<0.04) ng/mL C-Reactive Protein 31.14 H (< 5.00) mg/L B-Natriuretic Peptide 65 ( - 100) pg/mL Total Protein 6.8 (6.4-8.9) g/dL Albumin 3.6 (3.2-5.2) g/dL Globulin 3.2 (2-4) g/dL Albumin/Globulin Ratio 1.1 (1-3) Influenza A (Rapid) (Negative) Influenza B (Rapid) (Negative) 06/15/17 06/15/17 06/15/17 Range/Units 13:00 13:00 13:19 WBC (3.5-10.8) 10^3/ul RBC (4.0-5.4) 10^6/ul Hgb (12.0-16.0) g/dl Hct (35-47) % MCV (80-97) fL MCH (27-31) pg MCHC (31-36) g/dl RDW (10.5-15) % Plt Count (150-450) 10^3/ul MPV (7.4-10.4) um3 Neut % (Auto) (38-83) % Lymph % (Auto) (25-47) % [place] % (Auto) (0-7) % Eos % (Auto) (0-6) % Baso % (Auto) (0-2) % Absolute Neuts (auto) (1.5-7.7) 10^3/ul Absolute Lymphs (auto) (1.0-4.8) 10^3/ul Absolute Monos (auto) (0-0.8) 10^3/ul Absolute Eos (auto) (0-0.6) 10^3/ul Absolute Basos (auto) (0-0.2) 10^3/ul Absolute Nucleated RBC 10^3/ul Nucleated RBC % INR (Anticoag Therapy) 0.98 (0.77-1.02) Sodium (133-145) mmol/L Potassium (3.5-5.0) mmol/L Chloride (101-111) mmol/L Carbon Dioxide (22-32) mmol/L Anion Gap (2-11) mmol/L BUN (6-24) mg/dL Creatinine (0.51-0.95) mg/dL Est GFR ( Amer) (>60) Est GFR (Non-Af Amer) (>60) BUN/Creatinine Ratio (8-20) Glucose (70-100) mg/dL Lactic Acid 1.2 (0.5-2.0) mmol/L Calcium (8.6-10.3) mg/dL Total Bilirubin (0.2-1.0) mg/dL AST (13-39) U/L ALT (7-52) U/L Alkaline Phosphatase (34-104) U/L Troponin I (<0.04) ng/mL C-Reactive Protein (< 5.00) mg/L B-Natriuretic Peptide ( - 100) pg/mL Total Protein (6.4-8.9) g/dL Albumin (3.2-5.2) g/dL Globulin (2-4) g/dL Albumin/Globulin Ratio (1-3) Influenza A (Rapid) Negative (Negative) Influenza B (Rapid) Negative (Negative) Microbiology and Other Data: Microbiology 06/16/17 01:39 Streptococcus pneumoniae Ag Screen - Final Urine Negative S. pneumo Antigen Assess/Plan/Problems-Billing Assessment: - Patient Problems (1) Acute and chronic respiratory failure with hypoxia Current Visit: Yes Status: Acute Code(s): J96.21 - ACUTE AND CHRONIC RESPIRATORY FAILURE WITH HYPOXIA SNOMED Code(s): 33726136 Comment: improving, down to 6L today from 10L (baseline is 2L at home) multifactorial--volume overload + copd exacerbation diuresing well on lasix 40mg IV BID; may be developing a contraction alkalosis, will reduce to 40mg IV daily steroids--medrol 40mg q12 nebs (2) COPD exacerbation Current Visit: Yes Status: Acute Code(s): J44.1 - CHRONIC OBSTRUCTIVE PULMONARY DISEASE W (ACUTE) EXACERBATION SNOMED Code(s): 904342795 Comment: steroids/nebs as above; likely viral URI induced (3) Pleural effusion Current Visit: Yes Status: Acute Code(s): J90 - PLEURAL EFFUSION, NOT ELSEWHERE CLASSIFIED SNOMED Code(s): 44599033 Comment: continue diuresis (4) Abdominal aortic aneurysm (AAA) 30 to 34 mm in diameter Current Visit: No Status: Acute Code(s): I71.4 - ABDOMINAL AORTIC ANEURYSM, WITHOUT RUPTURE SNOMED Code(s): 595994652 Comment: 3.[address] outpatient surveillance (5) Hyponatremia Current Visit: No Status: Acute Code(s): E87.1 - HYPO-OSMOLALITY AND HYPONATREMIA SNOMED Code(s): 90739630 Comment: May be thiazide related, vs overload, vs pulmonary distress HCTZ now stopped. Uric acid 4.6 wnl, TSH 2.21, cortisol 9.98. Uosm and Serum Osm pending (6) Colon cancer Current Visit: No Status: Chronic Comment: Dr. Cm follows as outpatient. s /p remote colectomy Status and Disposition: inpatient for acute on chronic hypoxia
[2017-06-17] MEDS: Atorvastatin* 10 MG TAB PO SCH (17:35)
[2017-06-17] MEDS: Pregabalin CAP(*) 50 MG PO SCH (19:48)
[2017-06-17] MEDS: LORazepam TAB(*) 0.5 MG PO PRN (19:48)
[2017-06-17] MEDS: Lidocaine Patch REMOVE* 1 NOTE MISC PATCH OFF SCH (21:21)
[2017-06-17] MEDS: Levofloxacin 750 MG IVPREMIX(* 750 MG/150 ML BAG IVPB SCH (23:32)
[2017-06-18] MEDS: Albuterol 2.5 MG/3 ML NEB.SOL* (0.083%) INH SCH ×4 (03:46→20:32)
[2017-06-18 05:59] LABS: EGFR Non-African American 52.5 (>60)
[2017-06-18] MEDS: Mometasone/Formoter 200/5 MDI INH SCH ×2 (07:38→20:32)
[2017-06-18] MEDS ORDERED: Furosemide IV* 10 MG/ML VIAL (40 MG) IV SCH (09:00)
[2017-06-18] MEDS: Ascorbic Acid TAB* 500 MG PO SCH (10:29)
[2017-06-18] MEDS: Pregabalin CAP(*) 25 MG PO SCH (10:30)
[2017-06-18] MEDS: Losartan TAB* 25 MG PO SCH (10:31)
[2017-06-18] MEDS: methylPREDNISolone SOD 40 MG* 1 ML VIAL IV SCH (10:32)
[2017-06-18] MEDS: Docusate CAP* 100 MG PO SCH (10:32)
[2017-06-18] MEDS: Vitamin B Complex TAB PO SCH (10:32)
[2017-06-18] MEDS: Calcium/Vitamin D TAB 250/125* TAB PO SCH (10:32)
[2017-06-18] MEDS: Lidocaine PATCH 5%* 1 PATCH TRANSDERM SCH (10:32)
[2017-06-18] MEDS: Vitamin E CAP* 400 UNIT PO SCH (10:32)
[2017-06-18] MEDS: guaiFENesin ER TAB 600 MG PO SCH ×2 (10:32→20:04)
[2017-06-18] MEDS: Aspirin Low Dose CHEW TAB* 81 MG PO SCH (10:32)
[2017-06-18] MEDS: Nystatin TOP POWDER* 15 GM BTL TOPICAL SCH ×2 (10:33→22:13)
[2017-06-18] MEDS: Furosemide TAB* 20 MG PO SCH (15:58)
[2017-06-18] MEDS: Enoxaparin(*) 40 MG/0.4 ML SYR SUBCUT SCH (15:59)
--- NOTE | 2017-06-18 16:16 | PN ---
Subjective Date of Service: 06/18/17 Interval History: Feeling better. Down to 2L. Still with productive cough. Edema in feet resolved. Back pain well controlled. Missed outpatient prolia (last was August 2016 ) given some insurance issues. Just today she gave away her [facility] Bed. Complained of being too hot there. Diruresed well. Sputum Cx with nml desi. Na improved. Family History: Unchanged from Admission Social History: Unchanged from Admission Past Medical History: Unchanged from Admission Objective Active Medications: Acetaminophen (Tylenol Tab*) 650 mg PO Q4H PRN PRN Reason: FEVER/PAIN Albuterol (Ventolin 2.5 Mg/3 Ml Neb.Lisandra*) 2.5 mg INH Q2H PRN PRN Reason: SOB/WHEEZING Albuterol (Ventolin 2.5 Mg/3 Ml Neb.Lisandra*) 2.5 mg INH [id number] AWAKE [facility] Last Admin: 06/18/17 13:37 Dose: 2.5 mg Ascorbic Acid (Vitamin C Tab*) 1,000 mg PO DAILY [facility] Last Admin: 06/18/17 10:29 Dose: 1,000 mg Aspirin (Aspirin Low Dose Tab*) 81 mg PO DAILY [facility] Last Admin: 06/18/17 10:32 Dose: 81 mg Atorvastatin Calcium (Lipitor*) 10 mg PO QPM [facility] Last Admin: 06/17/17 17:35 Dose: 10 mg Calcium/Vitamin D (Oscal D Tab 250/125*) 1 tab PO DAILY [facility] Last Admin: 06/18/17 10:32 Dose: 1 tab Docusate Sodium (Colace Cap*) 100 mg PO DAILY [facility] Last Admin: 06/18/17 10:32 Dose: 100 mg Enoxaparin Sodium (Lovenox(*)) 40 mg SUBCUT Q24H [facility] Last Admin: 06/18/17 15:59 Dose: 40 mg Furosemide (Lasix Tab*) 20 mg PO DAILY [facility] Last Admin: 06/18/17 15:58 Dose: 20 mg Guaifenesin (Mucinex*) 600 mg PO 0900,2100 [facility] Last Admin: 06/18/17 10:32 Dose: 600 mg Levofloxacin/Dextrose (Levaquin 750 Mg Ivpremix(*)) 750 mg in 150 mls @ 100 mls /hr IVPB Q24H [facility] Last Admin: 06/17/17 23:32 Dose: 100 mls/hr Lidocaine (Lidoderm 5% Patch*) 1 patch TRANSDERM DAILY [facility] Last Admin: 06/18/17 10:32 Dose: 1 patch Lorazepam (Ativan Tab(*)) 0.5 mg PO Q4H PRN PRN Reason: ANXIETY Last Admin: 06/17/17 19:48 Dose: 0.5 mg Losartan Potassium (Cozaar Tab*) 100 mg PO DAILY [facility] Last Admin: 06/18/17 10:31 Dose: 100 mg Methocarbamol (Robaxin Tab*) 500 mg PO TID PRN PRN Reason: SPASMS Methylprednisolone Sodium Succinate (Solu-Medrol 40 Mg) 40 mg IV Q12H [facility] Last Admin: 06/18/17 10:32 Dose: 40 mg Mometasone Furoate/Formoterol Fumar (Dulera 200/5 Mdi*) 2 puff INH BID [facility] Last Admin: 06/18/17 07:38 Dose: 2 puff Multivitamins/Minerals (Theragran/Minerals Tab*) 1 tab PO EVERY OTHER DAY [facility] Last Admin: 06/17/17 08:47 Dose: 1 tab Nystatin (Nystatin Top Powder*) 1 applic TOPICAL BID [facility] Last Admin: 06/18/17 10:33 Dose: 1 applic Pharmacy Profile Note (Lidocaine Patch Remove*) 1 note PATCH OFF 2100 [facility] Last Admin: 06/17/17 21:21 Dose: 1 note Polyethylene Glycol/Electrolytes (Miralax*) 17 gm PO DAILY PRN PRN Reason: CONSTIPATION Pregabalin (Lyrica Cap(*)) 25 mg PO QAM [facility] Last Admin: 06/18/17 10:30 Dose: 25 mg Pregabalin (Lyrica Cap(*)) 50 mg PO BEDTIME [facility] Last Admin: 06/17/17 19:48 Dose: 50 mg Tramadol HCl (Ultram*) 50 mg PO Q6H PRN PRN Reason: PAIN Last Admin: 06/16/17 09:21 Dose: 50 mg Vitamin B Complex/Vitamin E (Complex B-100*) 1 tab PO DAILY [facility] Last Admin: 06/18/17 10:32 Dose: 1 tab Vitamin E (Vitamin E Cap*) 400 unit PO DAILY [facility] Last Admin: 06/18/17 10:32 Dose: 400 unit Vital Signs - 8 hr 03/08/3106/18/17 06/18/17 08:59 10:30 13:39 Temperature 98.5 F Pulse Rate 99 85 Respiratory 20 20 16 Rate Blood Pressure 146/64 (mmHg) O2 Sat by Pulse 95 98 Oximetry Oxygen Devices in Use Now: Nasal Cannula Appearance: NAD, smiling. Eyes: No Scleral Icterus, PERRLA Ears/Nose/Mouth/Throat: NL Teeth, Lips, Gums, Mucous Membranes Moist Neck: NL Appearance and Movements; NL JVP, Trachea Midline Respiratory: Symmetrical Chest Expansion and Respiratory Effort, Clear to Auscultation Cardiovascular: NL Sounds; No Murmurs; No JVD, RRR Abdominal: NL Sounds; No Tenderness; No Distention, No Hepatosplenomegaly Extremities: No Edema Skin: No Rash or Ulcers Neurological: Alert and Oriented x 3, NL Sensation, NL Muscle Strength and Tone Nutrition: Taking PO's Result Diagrams: 06/17/17 04:36 06/18/17 04:58 Additional Lab and Data: Laboratory Results - last 24 hr 06/18/17 04:58 Sodium 131 L Potassium 4.0 Chloride 91 L Carbon Dioxide 37 H Anion Gap 3 BUN 29 H Creatinine 1.02 H Est GFR ( Amer) 67.6 Est GFR (Non-Af Amer) 52.5 BUN/Creatinine Ratio 28.4 H Glucose 108 H Calcium 9.4 Microbiology and Other Data: Microbiology 06/15/17 13:00 Blood Venous Aerobic Blood Culture - Preliminary No Growth Day 3 06/15/17 13:00 Blood Venous Anaerobic Blood Culture - Preliminary No Growth Day 3 06/15/17 13:02 Blood Venous Aerobic Blood Culture - Preliminary No Growth Day 3 06/15/17 13:02 Blood Venous Anaerobic Blood Culture - Preliminary No Growth Day 3 06/15/17 11:40 Sputum Gram Stain - Final 06/15/17 11:40 Sputum Sputum Culture - Final YEAST Normal Desi 06/16/17 01:39 Urine Streptococcus pneumoniae Ag Screen - Final Negative S. pneumo Antigen 06/15/17 14:30 Nasal Nasal Screen MRSA (PCR)(CHE) - Final Mrsa Not Detected 06/15/17 13:05 Nasopharyngeal Influenza Types A,B Antigen ([facility]) - Final Specimen received for Influenza A/B Molecular testing Assess/Plan/Problems-Billing Assessment: 77 yo severe COPD (on 2L chronically), former colon cancer, osteoporosis w/ recent T12 compression fx, 3.2cm AAA w/ strong family history, hyponatremia not compliant with fluid restriction returns from [facility] with 7 days productive cough, slight weight gain and hypoxixc respiratory failure requiring 10L. COPD exac + diastolic dysfunction. Planned to [facility] 3/ - Patient Problems (1) Acute and chronic respiratory failure with hypoxia Current Visit: Yes Status: Acute Code(s): J96.21 - ACUTE AND CHRONIC RESPIRATORY FAILURE WITH HYPOXIA SNOMED Code(s): 32648508 Comment: resolved back to 2L from presenting 10L (baseline is 2L at home) multifactorial--volume overload + copd exacerbation reduced lasix to 20mg po daily. bicarb and [employer] creeping up. steroids--stop solumedrol 40mg q12 -> prednisone 40mg with taper nebs (2) Diastolic dysfunction Current Visit: Yes Status: Acute Code(s): I51.9 - HEART DISEASE, UNSPECIFIED SNOMED Code(s): 5837894 Comment: reduce lasix to 20mg daily. plan to continue on discharge. (3) COPD exacerbation Current Visit: Yes Status: Acute Code(s): J44.1 - CHRONIC OBSTRUCTIVE PULMONARY DISEASE W (ACUTE) EXACERBATION SNOMED Code(s): 234972879 Comment: steroids/nebs as above; likely viral URI induced (4) Compression fracture Current Visit: No Status: Acute Code(s): TXB4943 - SNOMED Code(s): 360908356 Comment: reorder physical therapy continue lidocaine patch continue tramadol, robaxain, lyrica. Bowel regimen. Plan to [facility], does not want to return to [facility] (5) Hyponatremia Current Visit: No Status: Acute Code(s): E87.1 - HYPO-OSMOLALITY AND HYPONATREMIA SNOMED Code(s): 52728243 Comment: Was not compliant with fluid restriction at [place]. improved here now. HCTZ was stopped last discharge. Previous w/u: Uric acid 4.6 wnl, TSH 2.21, cortisol 9.98. Uosm 540, Sosm 264, Nickie 55 (6) COPD (chronic obstructive pulmonary disease) Current Visit: No Status: Chronic Code(s): J44.9 - CHRONIC OBSTRUCTIVE PULMONARY DISEASE, UNSPECIFIED SNOMED Code(s): 37542048 Comment: presented in acute exacerbation now improved. 2L chronically. duonebs q4h prn, dulera. (7) HTN (hypertension) Current Visit: No Status: Chronic Code(s): I10 - ESSENTIAL (PRIMARY) HYPERTENSION SNOMED Code(s): 77750673 Comment: losartan 100mg lasix 20mg daily. (8) Obesity (BMI 30-39.9) Current Visit: No Status: Chronic Code(s): E66.9 - OBESITY, UNSPECIFIED SNOMED Code(s): 134482652 Status and Disposition: medicine inpatient, plan d/c to [facility] 06/19 and eventual home.
[2017-06-18] MEDS: Atorvastatin* 10 MG TAB PO SCH (17:53)
[2017-06-18] MEDS: Pregabalin CAP(*) 50 MG PO SCH (20:04)
[2017-06-18] MEDS: Lidocaine Patch REMOVE* 1 NOTE MISC PATCH OFF SCH (20:14)
[2017-06-18] MEDS: Levofloxacin 750 MG IVPREMIX(* 750 MG/150 ML BAG IVPB SCH (22:15)
[2017-06-19] MEDS: Albuterol 2.5 MG/3 ML NEB.SOL* (0.083%) INH SCH ×2 (00:57→09:19)
[2017-06-19] MEDS: LORazepam TAB(*) 0.5 MG PO PRN (01:19)
[2017-06-19 05:21] LABS: EGFR Non-African American 61.5 (>60)
[2017-06-19] MEDS: Furosemide TAB* 20 MG PO SCH (08:06)
[2017-06-19] MEDS: Losartan TAB* 25 MG PO SCH (08:06)
[2017-06-19] MEDS: Ascorbic Acid TAB* 500 MG PO SCH (08:06)
[2017-06-19] MEDS: Pregabalin CAP(*) 25 MG PO SCH (08:06)
[2017-06-19] MEDS: guaiFENesin ER TAB 600 MG PO SCH (08:07)
[2017-06-19] MEDS: Vitamin B Complex TAB PO SCH (08:07)
[2017-06-19] MEDS: Docusate CAP* 100 MG PO SCH (08:07)
[2017-06-19] MEDS: Multivitamins/Minerals TAB PO SCH (08:07)
[2017-06-19] MEDS: Aspirin Low Dose CHEW TAB* 81 MG PO SCH (08:07)
[2017-06-19] MEDS: Calcium/Vitamin D TAB 250/125* TAB PO SCH (08:07)
[2017-06-19] MEDS: Vitamin E CAP* 400 UNIT PO SCH (08:07)
[2017-06-19] MEDS: Lidocaine PATCH 5%* 1 PATCH TRANSDERM SCH (08:07)
[2017-06-19] MEDS: Nystatin TOP POWDER* 15 GM BTL TOPICAL SCH (08:17)
[2017-06-19 08:20] VITALS: BP 152/94
[2017-06-19] MEDS ORDERED: predniSONE TAB* 20 MG PO SCH (09:00)
[2017-06-19] MEDS: Mometasone/Formoter 200/5 MDI INH SCH (09:19)
--- NOTE | 2017-06-19 12:14 | DS ---
CC: Echo Rivero NP; Dr. Chester * DATE OF ADMISSION: 06/15/2017. DATE OF DISCHARGE: 06/19/2017. PRINCIPAL DISCHARGE DIAGNOSIS: Acute on chronic hypoxic respiratory failure due to COPD exacerbation and volume overload. SECONDARY DISCHARGE DIAGNOSES: 1. Hypertension. 2. Heart failure with preserved ejection fraction. 3. Chronic compression fracture at T12. 4. Severe COPD. 5. Abdominal aortic aneurysm. 6. History of colon cancer, status post partial colectomy and chemotherapy. 7. Osteoporosis. DISCHARGE MEDICATIONS: 1. Vitamin B one cap daily. 2. Ascorbic acid 1,000 mg daily. 3. Colace 100 mg daily. 4. Symbicort 160/4.5 two puffs inhaled b.i.d. 5. Lyrica 25 mg in the morning, 50 mg at bedtime. 6. Albuterol inhaler two puffs q.4 prn wheezing. 7. Tylenol 650 mg q.4 prn pain. 8. Lidocaine 5% patch transdermally apply daily. 9. Robaxin 500 mg t.i.d. prn. 10. MiraLax 17 gm packet b.i.d. prn constipation. 11. Senna one tab b.i.d. 12. Tramadol 50 mg q.6 prn pain. 13. Multivitamin every other day. 14. Vitamin E 400 units daily. 15. Simvastatin 20 mg daily. 16. Irbesartan 300 mg daily. 17. DuoNeb q.i.d. prn shortness of breath or wheezing. 18. Calcium and vitamin D one tab daily. 19. Lasix 20 mg daily. 20. Prednisone 40 mg daily for 5 more days. PHYSICAL EXAMINATION AT THE TIME OF DISCHARGE: General: Alert, elderly female sitting up at the edge of the bed in no distress. Vital Signs: Temperature 98 degrees, heart rate 81, pulse ox 96 percent on 2 liters, respiratory rate 16, blood pressure 152/94. HEENT: Pupils equal, round, and reactive to light. Moist mucosa. No pharyngeal exudates or erythema. Neck: No JVP, no cervical adenopathy. Chest: Severe kyphosis. Regular rate and rhythm. Systolic murmur heard at the right upper sternal border with radiation to the carotids. PMI is nondisplaced. No S3 or S4. Abdomen: Obese, soft, nontender, nondistended. Well-healed laparoscopy incisions. No guarding or rebound. Extremities: Venous stasis changes bilaterally. No lower extremity edema. No ulcers. Neurologic: Alert and oriented times three with appropriate affect. HOSPITAL COURSE BY PROBLEM: 1. Acute on chronic hypoxic respiratory failure: Ms. Coburn's baseline oxygen requirement is 2 liters continuously; however, at admission she required 10 liters of high flow nasal cannula. She was noted to have evidence of volume overload and had recently been discontinued from her HCTZ and also reported copious volume intake due to warm temperatures at [place]. She was started on IV Lasix 40 mg b.i.d. and responded very well. Her discharge weight is 97.0 kg and she has been weaned back to her home oxygen requirement of 2 liters. She was euvolemic at the time of discharge. Of note, she was also treated for a URI with Azithromycin for five days and needs no further antibiotics at this time. She was also treated with IV Solu-Medrol with good improvement and will be discharged on five more days of p.o. Prednisone. Please note that on ambulation, she does require a higher oxygen level at this time. She should be maintained on 2 liters of oxygen at rest and 4 liters with ambulation until she follows up with Pulmonology. I have scheduled a follow-up appointment with Dr. Chester's nurse practitioner for her on June 25 at 2:00 p.m. She reports that she has never had pulmonary function tests and should the Pulmonology office see fit, she should have PFT's. 2. Acute on chronic diastolic heart failure: A repeat echocardiogram was obtained during this admission and she was noted to have impaired relaxation. She was diuresed as above and will be discharged on Lasix 20 mg daily. This is a new medication for her, so her volume status should be monitored. 3. Severe COPD on 2 liters home O2: She is continued on DuoNeb prn and Dulera inhaler twice daily. As above, I recommended that she follow-up with Pulmonology for PFT's to quantify her degree of obstructive pathology. 4. Hyponatremia: Her HCTZ was held at admission with good improvement in her hyponatremia. Certainly her hyponatremia may be related to her underlying pulmonary disease and the improvement may be coincided with her improvement in respiratory distress; however, given her long history of pulmonary disease, it is reasonable to discontinue HCTZ and she had good control of her blood pressure here while on Irbesartan and Lasix. 5. Hypertension: As above, her HCTZ has been held and Irbesartan and Lasix are continued. She should have a blood pressure check in three days and again next week. 6. Abdominal aortic aneurysm: She had no repeat imaging of this on this admission. At the last admission, it was noted to be 3.2 cm. This should be noted and followed by her physician with regular imaging. 7. Peripheral neuropathy: She is continued on her home dose of Lyrica. 8. Chronic pain syndrome: She is continued on her Lidocaine patch, Robaxin, and Tramadol. DISPOSITION: She is being discharged to [facility] on June 19 at 10:45 a.m. FOLLOW-UP NEEDED: Please check blood pressure in three days and again in one week, and report these findings to the [employer] or physician. She should also have a BMP drawn in one week. Please report these findings to the [employer] or physician if there are any abnormalities. She has a follow-up appointment scheduled at [facility] Pulmonology with Dr. Chester's nurse practitioner on June 25 at 2:00 p.m. OXYGEN NEEDS: She has to wear 2 liters continuously and 4 liters with ambulation. Please call me with any concerns or questions about this discharge. My pager number is . ADDENDUM TO DISCHARGE SUMMARY Please note that my original discharge summary included Dulera as her controller COPD medication, but in fact she should be discharged on Symbicort 160/4.5 two puffs inhaled b.i.d. instead. [id number]/[facility] #: [id number]/[facility] #: [id number]/[facility] #: [id number] EULALIO
--- NOTE | 2017-06-19 12:14 | DS ---
ADDENDUM TO DISCHARGE SUMMARY Please note that my original discharge summary included Dulera as her controller COPD medication, but in fact she should be discharged on Symbicort instead. [id number]/[facility] #: [id number]
--- NOTE | 2017-06-19 12:14 | DS ---
ADDENDUM TO DISCHARGE SUMMARY Please edit the addendum that I just dictated on Leigh Ann Coburn to say that she should be on Symbico rt 160/4.5 two puffs inhaled b.i.d. [id number]/[facility] #: [id number]
== END 2017-06-19 11:53 | DRG 189 ==
LOC: ED 11:22 → MEDTELE 15:00
PROVIDERS: ADMIT Internal Medicine; ATTEND Internal Medicine
DX: J96.21 Acute and chronic respiratory failure with hypoxia (principal); I50.33 Acute on chronic diastolic (congestive) heart failure; E87.70 Fluid overload, unspecified; G62.9 Polyneuropathy, unspecified; M48.54XA Collapsed vertebra, not elsewhere classified, thoracic region, initial encounter for fracture; E87.1 Hypo-osmolality and hyponatremia; J44.1 Chronic obstructive pulmonary disease with (acute) exacerbation; I11.0 Hypertensive heart disease with heart failure; I71.4 Abdominal aortic aneurysm, without rupture; M81.0 Age-related osteoporosis without current pathological fracture; Z85.038 Personal history of other malignant neoplasm of large intestine; Z99.81 Dependence on supplemental oxygen; G89.4 Chronic pain syndrome; Z96.652 Presence of left artificial knee joint; J06.9 Acute upper respiratory infection, unspecified; E66.9 Obesity, unspecified; E78.5 Hyperlipidemia, unspecified; Z79.899 Other long term (current) drug therapy; Z88.5 Allergy status to narcotic agent; Z88.0 Allergy status to penicillin; Z88.8 Allergy status to other drugs, medicaments and biological substances; Z91.018 Allergy to other foods; Z91.048 Other nonmedicinal substance allergy status; Z80.0 Family history of malignant neoplasm of digestive organs; Z80.1 Family history of malignant neoplasm of trachea, bronchus and lung; Z84.89 Family history of other specified conditions; Z87.891 Personal history of nicotine dependence; Z68.37 Body mass index [BMI] 37.0-37.9, adult
CPT/HCPCS: 36415; 71045; 80048; 80053; 83605; 83880; 84484; 85025; 85610; 86140; 87040; 87070; 87205; 87502; 87641; 87899; 93005; 93306; 94640; 94760; 99285; A9270-GY; J1650; J1940; J2920; J2930; J7512

== ENCOUNTER 2017-07-21 00:33 | Inpatient (IN) | payer MEDICARE, BC ==
[2017-07-21] MEDS ORDERED: Magnesium Sulfate 2 GM IV* 2 GM/50 ML BAG IVPB ONE (00:41)
--- OUTSIDE RECORDS SUMMARY | 2017-07-21 00:44 | XMS REPORT ---
:1940 External Reference #:[id number] Author Organization [email or web address] Address [address] [address] Phone [phone] Care Team Providers Name Role Phone Echo Rivero NP Primary Care Physician Unavailable Payers Type Date Identification Numbers Payment Provider Subscriber Medicare Primary Effective: Policy Number: Medicare Francisca Coburn 2005 [id number] PayID: [id number] [address] [place] [address] Medigap Part B Effective: Policy Number: BS Facets Francisca Reyeslavonne 2011 [id number] PayID: [id number] [address] [address] [place] [address] Problems Date Description Provider Status Onset: 02/08/2011 [...] Form Strength Qnty SIG Indications Ordering Provider Albuterol 02/06/ Active Aerosol as needed Unknown [...] Solution 60mg/ml 60mg 60 mg sc M81.0 Echo 2013 q6mon Varn, N.P. Z92.29 Clindamycin HCL 05/09/2013 Active Capsules 300mg 2caps 2 tabs one Dirk hour prior to Tomas, dental work M.D. Vitamin B 01/10/2013 Active Capsules 1 po qd Unknown Complex Simvastatin 01/20/2011 Active Tablets 20mg 90tabs take one Alexi Escalera tablet by lisette Kim every M.D. evening Calcium + D 07/29/2008 Active Tablets 600mg 1 po qd Alexi Kim M.D. Vitamin E Active Capsules 100Unit 1 po qd Unknown Vitamin D-400 Active Tablets 400Unit 60tabs 1 by mouth Unknown every day Colace Active Capsules 100mg 60caps 1 by mouth Unknown daily Vitamin C Active Capsules 500mg 1 by mouth Unknown every day Tramadol Active Unknown Robaxin Active Unknown Lasix Active Unknown Prednisone Active Unknown Lidocaine Patch Active Unknown Methocarbamol 05/16/2017 - Hx Tablets 750mg 60tabs take 1 tablet M5 Sundar 05/22/2017 every six 4. Marlena, [employer] hours as 5 needed for pain. Salsalate 05/16/2017 - Hx Tablets 500mg 30tabs one tablet M5 Sundar 06/24/2017 twice daily 4. Marlena, [employer] as needed 5 with food Hydrocodone-Acet 05/16/2017 - Hx Tablets 5-325mg 30tabs take 1 tablet M5 Sundar aminophen 06/24/2017 every 8 hours 4. Marlena, [employer] for pain. 5 Zostavax 08/29/2016 - Hx Suspension [id number] Alexi E. 05/16/2017 Rec t/0.65M 0 Elliot Kim M.D. Centrum Silver 02/07/2016 - Hx Tablets 1 po qd Unknown 02/07/2016 Acetaminophen 02/07/2016 - Hx Capsules 500mg 2 by mouth Unknown 06/24/2017 twice a day as needed Fentanyl 03/25/2014 - Hx Patches 72HR 25mcg/H 5units apply one Alexi E. 08/27/2014 R patch once Judy, every 3 days M.D. [place] 03/13/2014 - Hx Tablets 5-325mg 30tabs 1-2 by mouth Dirk 04/10/2014 every 4 to 6 Tomas, hours as M.D. needed Macrobid 02/16/2014 - Hx Capsules 100mg 10caps 1 tab q12hr x Dirk 08/27/2014 5 days Tomas, M.D. [place] 02/14/2014 - Hx Tablets 5-325mg 100tabs 1 by mouth Dirk 08/27/2014 every 6 Tomas, hours as M.D. needed for pain try to use less and less as soon as possible Ventolin HFA 02/04/2014 - Hx Aerosol 108(90B 1units 2 puffs by Thuan 02/07/2016 ase) mouth four Flowers, [employer] mcg/Act times a day as needed Proair HFA 08/25/2013 - Hx Aerosol 108(90B 1units 2 puffs by Alexi Escalera 02/04/2014 ase) mouth four Judy, mcg/Act times a day M.D. as needed Spiriva 02/24/2013 - Hx Capsules 18mcg 30caps 2 inhalations Alexi Escalera Handihaler 02/04/2014 by mouth Judy, every morning M.DDeep Acetaminophen 12/10/2012 - Hx Tablets 500mg 80tabs 1-2 tabs q6h Dirk Extra Strength 02/04/2014 prn pain Yolande Marin Spiriva 11/12/2012 - Hx Capsules 18mcg 30caps 1 inhalation Jaylen Handihaler 02/04/2014 po qam DDeep Uribe M.D.,FACP Robaxin-750 11/11/2012 - Hx Tablets 750mg 30tabs 1 po bid prn Dirk 08/25/2013 Yolande Marin Nerve Repair 08/23/2011 - Hx 1 qd Alexi Escalera 08/22/2012 Yolande Kim Aspirin 02/22/2011 - Hx Tablet 81mg 30tabs Alexi Escalera Childrenjessenia 08/07/2016 Yolande Kim Symbicort 09/29/2009 - Hx Aerosol 80-4.5m 3units inhale two Thuan 03/31/2015 cg/Act puffs into Flowers, [employer] lungs twice a day Zithromax Z-Arnoldo 06/22/2009 - Hx Tablets 250mg 1Pack as per Alexi Escalera 08/23/2009 directions Yolande Kim Avalide 03/01/2009 - Hx Tablets 150-12. 90tabs 1 by mouth Alexi Escalera 06/24/2017 5mg every day Yolande Kim Lyrica 02/11/2009 - Hx Capsules 50mg 60caps 1 po day Toi, 02/24/2013 Abram Escalera MD Flexeril 10/06/2008 - Hx Tablets 10mg 30tabs 1 po tid prn Alexi Escalera 02/11/2009 Yolande Kim Ritalin 07/29/2008 - Hx Tablets 5mg 30tabs 1 tab qd Alexi Escalera 02/11/2009 Yolande Kim Niferex-150 07/29/2008 - Hx Capsules 1 po qd Cher Cm 02/11/2009 Abram Escalera MD Vitamin C 07/29/2008 - Hx Tablets 1000mg 1 po qd Alexi EDeep 02/07/2016 Yolande Kim Oxaliplatin 07/29/2008 - Hx Every other Alexi E. 02/11/2009 week Yolande Kim Fluorouracil 07/29/2008 - Hx Solution ?mg. Every other Alexi E. 02/11/2009 week Yolande Kim Leucovorin 07/29/2008 - Hx Solution ?mg Every other Alexi EDeep Calcium 01/18/2011 week Yolande Kim Albuterol 07/29/2008 - Hx 1MonthS 2 puffs up to Alexi Escalera Inhaler 08/25/2013 upply four times a Judy, luiz by mouth M.DDeep as needed Procardia XL 01/29/2008 - Hx Tablets ER 60mg 90tabs 1 po qd Alexi Escalera 03/01/2009 24HR Yolande Kim Zetia 07/24/2007 - Hx Tablets 10mg 90tabs Take One Alexi Escalera 08/25/2013 Tablet By Judy, Mouth Every M.DDeep Day Fosamax 07/24/2007 - Hx Tablets 70mg 12tabs take 1 tablet Alexi Escalera 02/04/2014 by mouth once cara Kim M.D. Procardia XL - Hx Tablets ER 90mg. 90tabs 1 po qd Alexi Escalera 01/29/2008 24HR Yolande Kim Dyazide - Hx Capsules 37.5-25 90caps 1 po qd Alexi Escalera 03/01/2009 Yolande Kim Tylenol - Hx Tablets 325mg 100tabs prn 2 Tablets Unknown 08/25/2013 PO Q 4HRS Jen - Hx Tablets 60mg 180tabs 1 PO bid prn Barken, 07/24/2007 MD Rangel Centrum Silver - Hx Tablets 1 PO qd Frannieen, 07/29/2008 MD Rangel Proair HFA - Hx Aerosol 90mcg/A 1units 2 puffs po Alexi E. (Albuterol) 07/29/2008 ct binu Kim M.D. Aspirin - Hx Tablets 81mg 100tabs 1 PO qd Jo Ann, 07/29/2008 MD Rangel Vitamin B - Hx [...] CPT Code Status Date Vaccine Lot # [id number] Given 12/27/2015 Influenza Virus Vaccine, Quadrivalent, Split, Preservative Free 29122 Given 01/28/2015 Influenza Virus 3Yrs & Over 66341 Given 02/04/2014 Flu Vaccine Split Virus Preservative Free For [id number] Indiv 3Yr Older 59195 Given 08/25/2013 Pneumococcal Conjugate Vaccine 13 Valent For [id number] Intramuscular Use [id number] Given 01/18/2011 Fluzone Vaccine [id number] 29934 Given 02/04/2010 Influenza Virus 3Yrs & Over [id number] 36624 Given 04/21/2009 Influenza Virus Vaccine, Pandemic Formulation 86748 Given 01/29/2008 Influenza Virus 3Yrs & Over 65268 Given 01/29/2008 Influenza Virus 3Yrs & Over 53824 Given 07/24/2007 Pneumonia Vaccine [id number] 64511 Given 07/24/2007 Tetanus And Diptheria (Td) For Adult Use Preservative Free 35685 Given 07/24/2007 Tetanus And Diptheria (Td) For Adult Use Preservative Free 27908 Given 01/22/2007 Influenza Virus 3Yrs & Over 73692 Given 01/22/2007 Influenza Virus 3Yrs & Over 02884 Vital Signs Date Vital Result Comment 06/25/2017 Height 63 inches 5'3" Weight 215.00 lb Heart Rate 84 /min BP Systolic Sitting 124 mmHg Rue large cuff BP Diastolic Sitting 84 mmHg Rue large cuff Respiratory Rate 12 /min O2 % BldC Oximetry 91 % BMI (Body Mass Index) 38.1 kg/m2 05/16/2017 Heart Rate 76 /min BP Systolic [...] Test Date Test Result H/L Range Note Rapid Influenza A & 06/15/2017 Influenza A Molecular NEGATIVE Negative 1 B Molecular Influenza B Molecular NEGATIVE Negative Laboratory test 06/15/2017 Rapid Influenza A B SEE RESULT BELOW 2 finding Antigen Comp Metabolic Panel 06/15/2017 Sodium 127 mmol/L Low 133-145 Potassium 4.3 mmol/L 3.5-5.0 Chloride 89 mmol/L Low 101-111 Co2 Carbon Dioxide 32 mmol/L 22-32 Anion Gap 6 mmol/L 2-11 Glucose 103 mg/dL High 70-100 Blood Urea Nitrogen 12 mg/dL 6-24 Creatinine 0.76 mg/dL 0.51-0.95 BUN/Creatinine Ratio 15.8 8-20 Calcium 9.6 mg/dL 8.6-10.3 Total Protein 6.8 g/dL 6.4-8.9 Albumin 3.6 g/dL 3.2-5.2 Globulin 3.2 g/dL 2-4 Albumin/Globulin Ratio 1.1 1-3 Total Bilirubin 0.50 mg/dL 0.2-1.0 Alkaline Phosphatase 87 U/L 34-104 Alt 17 U/L 7-52 Ast 23 U/L 13-39 Egfr Non- 73.8 >60 Egfr 94.9 >60 3 Laboratory test finding 06/15/2017 C Reactive Protein 31.14 mg/L High &lt ; 5.00 4 Troponin-I (TnI) 0.05 ng/mL High <0.04 5 B-Type Natriuretic Peptide BNP 65 pg/mL 6 Lactic Acid 1.2 mmol/L 0.5-2.0 7 CBC Auto Diff 06/15/2017 White Blood Count 7.0 10^3/uL 3.5-10.8 Red Blood Count 4.13 10^6/uL 4.0-5.4 Hemoglobin 13.2 g/dL 12.0-16.0 Hematocrit 38 % 35-47 Mean Corpuscular Volume 92 fL 80-97 Mean Corpuscular Hemoglobin 32 pg High 27-31 Mean Corpuscular HGB Conc 35 g/dL 31-36 Red Cell Distribution Width 12 % 10.5-15 Platelet Count 312 10^3/uL 150-450 Mean Platelet Volume 7 um3 Low 7.4-10.4 Abs Neutrophils 4.9 10^3/uL 1.5-7.7 Abs Lymphocytes 0.6 10^3/uL Low 1.0-4.8 Abs Monocytes 1.2 10^3/uL High 0-0.8 Abs Eosinophils 0.2 10^3/uL 0-0.6 Abs Basophils 0.1 10^3/uL 0-0.2 Abs Nucleated RBC 0 10^3/uL Granulocyte % 69.1 % 38-83 Lymphocyte % 8.6 % Low 25-47 Monocyte % 17.8 % High 0-7 Eosinophil % 3.5 % 0-6 Basophil % 1.0 % 0-2 Nucleated Red Blood Cells % 0 Inr/Protime 06/15/2017 Inr 0.98 0.77-1.02 Laboratory test finding 05/29/2017 Amylase 55 U/L 29-103 Lipase 38 U/L 11.0-82.0 C Reactive Protein 3.25 mg/L < 5.00 8 Comp Metabolic Panel 05/29/2017 Sodium 125 mmol/L Low 133-145 Potassium 3.7 mmol/L 3.5-5.0 Chloride 86 mmol/L Low 101-111 Co2 Carbon Dioxide 34 mmol/L High 22-32 Anion Gap 5 mmol/L 2-11 Glucose 96 mg/dL 70-100 Blood Urea Nitrogen 10 mg/dL 6-24 Creatinine 0.78 mg/dL 0.51-0.95 BUN/Creatinine Ratio 12.8 8-20 Calcium 9.5 mg/dL 8.6-10.3 Total Protein 6.7 g/dL 6.4-8.9 Albumin 3.9 g/dL 3.2-5.2 Globulin 2.8 g/dL 2-4 Albumin/Globulin Ratio 1.4 1-3 Total Bilirubin 0.70 mg/dL 0.2-1.0 Alkaline Phosphatase 61 U/L 34-104 Alt 12 U/L 7-52 Ast 21 U/L 13-39 Egfr Non- 71.6 >60 Egfr 92.1 >60 9 CBC Auto Diff 05/29/2017 White Blood Count 8.4 10^3/uL 3.5-10.8 Red Blood Count 4.58 10^6/uL 4.0-5.4 Hemoglobin 14.4 g/dL 12.0-16.0 Hematocrit 42 % 35-47 Mean Corpuscular Volume 91 fL 80-97 Mean Corpuscular Hemoglobin 31 pg 27-31 Mean Corpuscular HGB Conc 35 g/dL 31-36 Red Cell Distribution Width 12 % 10.5-15 Platelet Count 221 10^3/uL 150-450 Mean Platelet Volume 8 um3 7.4-10.4 Abs Neutrophils 5.8 10^3/uL 1.5-7.7 Abs Lymphocytes 1.2 10^3/uL 1.0-4.8 Abs Monocytes 1.2 10^3/uL High 0-0.8 Abs Eosinophils 0.2 10^3/uL 0-0.6 Abs Basophils 0 10^3/uL 0-0.2 Abs Nucleated RBC 0 10^3/uL Granulocyte % 68.5 % 38-83 Lymphocyte % 14.5 % Low 25-47 Monocyte % 14.7 % High 1-9 Eosinophil % 1.9 % 0-6 Basophil % 0.4 % 0-2 Nucleated Red Blood Cells % 0 Urinalysis Profile 05/29/2017 Urine Color Yellow Urine Appearance Clear Urine Specific [place] 1.009 Low 1.010-1.030 Urine pH 8.0 5-9 Urine Urobilinogen Negative Negative Urine Ketones Negative Negative Urine Protein Negative Negative Urine Leukocytes Negative Negative Urine Blood Negative Negative Urine Nitrite Negative Negative Urine Bilirubin Negative Negative Urine Glucose Negative Negative Comp Metabolic Panel 03/27/2017 Sodium 137 mmol/L [...] Egfr Non- 58.5 >60 Egfr 75.2 >60 10 Lipid Profile (Trig/Chol/HDL) 03/27/2017 Triglycerides 158 mg/dL 11 Cholesterol 194 mg/dL 12 HDL Cholesterol 54.9 mg/dL 13 LDL Cholesterol 108 mg/dL 14 Lipid Profile (Trig/Chol/HDL) 03/28/2016 Triglycerides 200 mg/dL 15 Cholesterol 198 mg/dL 16 HDL Cholesterol 46.2 mg/dL 17 LDL Cholesterol 112 mg/dL 18 Comp Metabolic Panel 03/28/2016 Sodium 135 mmol/L [...] Egfr Non- 57.9 >60 Egfr 74.5 >60 19 Comp Metabolic Panel 04/01/2015 Sodium 130 mmol/L [...] Egfr Non- 50.5 >60 Egfr 65.0 >60 20 Lipid Profile (Trig/Chol/HDL) 04/01/2015 Triglycerides 231 mg/dL 21 Cholesterol 195 mg/dL 22 HDL Cholesterol 45.1 mg/dL 23 LDL Cholesterol 104 mg/dL 24 Urinalysis Profile 02/12/2014 Urine Color Rosio Urine Appearance Cloudy Urine Specific [place] 1.017 1.010-1.030 Urine pH 7.0 5-9 Urine Urobilinogen Negative Negative Urine Ketones Negative Negative Urine Protein Negative Negative Urine Leukocytes Negative Negative Urine Blood Negative Negative * * Negative 25 Urine Nitrite Negative Negative Urine Bilirubin Negative Negative Urine Glucose Negative Negative Urine Culture And 02/12/2014 Urine Culture (SEE NOTE) 26 Sensitivities CBC No Diff 02/11/2014 White Blood Count 8.4 10^3/uL 4.8-10.8 27 Red Blood Count 4.77 10^6/uL 4.0-5.4 27 Hemoglobin 15.1 g/dL 12.0-16.0 27 Hematocrit 44 % 35-47 27 Mean Corpuscular Volume 93 fL 80-97 27 Mean Corpuscular Hemoglobin 32 pg High 27-31 27 Mean Corpuscular HGB Conc 34 g/dL 31-36 27 Red Cell Distribution Width 13 % 10.5-15 27 Platelet Count 261 10^3/uL 150-450 27 Mean Platelet Volume 9 um3 7.4-10.4 27 Type & Screen 02/11/2014 Patient Blood Type O Positive 27 Antibody Screen NEGATIVE 27 Inr/Protime 02/11/2014 Inr 0.92 0.85-1.06 27 Basic Metabolic Panel 02/11/2014 Sodium 131 mmol/L Low 133-145 27 Potassium 4.8 mmol/L 3.7-5.6 27 Chloride 96 mmol/L Low 101-111 27 Co2 Carbon Dioxide 29 mmol/L 22-32 27 Anion Gap 6 mmol/L 2-11 27 Glucose 68 mg/dL Low 70-100 27 Blood Urea Nitrogen 16 mg/dL 6-24 27 Creatinine 0.85 mg/dL 0.51-0.95 27 BUN/Creatinine Ratio 18.8 8-20 27 Calcium 9.9 mg/dL 8.6-10.3 27 Egfr Non- 65.4 >60 27 Egfr 84.1 >60 27, 28 Lipid Profile (Trig/Chol/HDL) 08/18/2013 Triglycerides 186 mg/dL 29, 30 Cholesterol 158 mg/dL 29, 31 HDL Cholesterol 41.5 mg/dL 29, 32 LDL Cholesterol 79 mg/dL 29, 33 Comp Metabolic Panel 08/18/2013 Sodium 132 mmol/L Low 133-145 29 Potassium 4.3 mmol/L 3.7-5.6 29 Chloride 97 mmol/L Low 101-111 29 Co2 Carbon Dioxide 26 mmol/L 22-32 29 Anion Gap 9 mmol/L 2-11 29 Glucose 95 mg/dL 70-100 29 Blood Urea Nitrogen 16 mg/dL 6-24 29 Creatinine 0.90 mg/dL 0.51-0.95 29 BUN/Creatinine Ratio 17.8 8-20 29 Calcium 9.4 mg/dL 8.6-10.3 29 Total Protein 6.8 g/dL 6.4-8.9 29 Albumin 4.4 g/dL 3.2-5.2 29 Globulin 2.4 g/dL 2-4 29 Albumin/Globulin Ratio 1.8 1-3 29 Total Bilirubin 0.60 mg/dL 0.2-1.0 29 Alkaline Phosphatase 58 U/L 34-104 29 Alt 13 U/L 7-52 29 Ast 21 U/L 13-39 29 Egfr Non- 61.4 >60 29 Egfr 78.9 >60 29, 34 Vitamin D, 25 Hydroxy 08/18/2013 25-Hydroxy Vitamin D2 <4.0 ng/mL 29 25-Hydroxy Vitamin D3 44 ng/mL 29 25-Hydroxy Vitamin D Total 44 ng/mL 29, 35 Laboratory test finding 10/11/2012 Inr 1.82 High [...] Egfr Non- 44.2 >60 Egfr 56.8 >60 36 Laboratory test finding 09/12/2012 Troponin I 0.02 ng/mL 0-0.06 37 Type & Screen 09/12/2012 Patient Blood Type O Positive Antibody Screen NEGATIVE Lipid Panel - [facility] 08/19/2012 Creatine Kinase 293 U/L High 0-200 38 Comp Metabolic Panel 08/19/2012 Sodium 133 mmol/L [...] Egfr Non- 54.5 >60 Egfr 70.1 >60 39 Lipid Profile (Trig/Chol/HDL) 08/19/2012 Triglycerides 203 mg/dL High 40- 200 Cholesterol 173 mg/dL Less than 200 HDL Cholesterol 46 mg/dL 40-60 40 Cholesterol/HDL Ratio 3.8 Average 1-4.44 LDL Cholesterol 86.4 mg/dL Less Than 100 41 Laboratory test 08/19/2012 Hemoglobin A1c 5.5 % Less than 6.0 42 finding Surgical Pathology 03/14/2012 S RUN DATE: 43 03/18/ <SEE NOTE> Lipid Profile 08/17/2011 Triglyceride 254 mg/dL High 40-200 (Trig/Chol/HDL) Cholesterol 173 mg/dL Less Than 200 44 High Density Lipoprotein 42 mg/dL 40-60 45 Cholesterol/HDL Ratio 4.12 AVERAGE 1-4.44 Low Density Lipoprotein 80 mg/dL Less Than 100 46 Comp Metabolic Panel 08/17/2011 Sodium 135 mmol/L 135-145 Potassium 4.3 mmol/L 3.5-5.0 Chloride 101 mmol/L 101-111 Co2 (Carbon Dioxide) 29.0 mmol/L 22-32 Anion Gap 5.0 mmol/L 2-11 47 Glucose 99 mg/dL 70-100 BUN 17 mg/dL 6-24 Creatinine 1.0 mg/dL 0.50-1.40 One Over Creatinine 1.00 BUN/Creatinine Ratio 17.0 8-20 Calcium 9.0 mg/dL 8.1-9.9 Total Protein 6.7 GM/DL 6.2-8.1 Albumin 4.0 GM/DL 3.2-5.2 Globulin 2.7 GM/DL 2-4 Albumin/Globulin Ratio 1.5 1-3 Bilirubin Total 0.8 mg/dL 0.4-1.5 48 Alkaline Phosphatase 55 U/L 30-110 Alt (SGPT) 23 U/L 14-54 Ast (Sgot) 29 U/L 12-42 eGFR Non- 54.7 > 60 eGFR 70.3 > 60 49 Laboratory test finding 08/17/2011 Hemoglobin A1c 6.3 % High Less Than 6.0 50 Laboratory test finding 04/04/2011 Alt (SGPT) 23 U/L 14-54 Alkaline Phosphatase 04/04/2011 Alkaline Phosphatase,S 62 U/L 55 - 142 51 Isoenzyme Liver 1% 51.6 % 27.8-76.3 Liver 1 32.0 IU/L 16.2-70.2 Liver 2% 5.6 % 0.0-8.0 Liver 2 3.5 IU/L 0.0-5.8 Bone % 42.8 % 19.1-67.7 Bone 26.5 IU/L 12.1-42.7 Intestine % 0.0 % 0.0-20.6 Intestine 0.0 IU/L 0.0-11.0 Placental NotPresent () 52 Lipid Profile (Trig/Chol/HDL) 04/04/2011 Triglyceride 273 mg/dL High 40- 200 Cholesterol 166 mg/dL Less Than 200 53 High Density Lipoprotein 39 mg/dL Low 40-60 54 Cholesterol/HDL Ratio 4.26 AVERAGE 1-4.44 Low Density Lipoprotein 72 mg/dL Less Than 100 55 Laboratory test finding 01/18/2011 Hemoglobin A1c 5.5 5-7 Lipid Profile (Trig/Chol/HDL) 07/14/2010 Triglyceride 349 mg/dL High 40- 200 Cholesterol 224 mg/dL High Less Than 200 56 High Density Lipoprotein 39 mg/dL Low 40-60 57 Cholesterol/HDL Ratio 5.74 AVERAGE High 1-4.44 Low Density Lipoprotein 115 mg/dL High Less Than 100 58 Basic Metabolic Panel 07/14/2010 Sodium 134 mmol/L Low 135-145 Potassium 4.5 mmol/L 3.5-5.0 Chloride 100 mmol/L Low 101-111 Co2 (Carbon Dioxide) 28.0 mmol/L 22-32 Anion Gap 6.0 mmol/L 2-11 59 Glucose 108 mg/dL High 70-100 BUN 15 mg/dL 6-24 Creatinine 1.00 mg/dL 0.50-1.40 One Over Creatinine 1.00 BUN/Creatinine Ratio 15.0 8-20 Calcium 9.8 mg/dL 8.1-9.9 eGFR Non- 54.8 > 60 eGFR 70.5 > 60 60 Laboratory test finding 07/14/2010 TSH 2.93 MIU/ML 0.34-5.60 Comp Metabolic Panel 06/22/2010 Sodium 137 mmol/L 135-145 Potassium 4.2 mmol/L 3.5-5.0 Chloride 100 mmol/L Low 101-111 Co2 (Carbon Dioxide) 29.0 mmol/L 22-32 Anion Gap 8.0 mmol/L 2-11 61 Glucose 137 mg/dL High 70-100 BUN 17 mg/dL 6-24 Creatinine 1.10 mg/dL 0.50-1.40 One Over Creatinine 0.90 BUN/Creatinine Ratio 15.5 8-20 Calcium 9.6 mg/dL 8.1-9.9 Total Protein 7.0 GM/DL 6.2-8.1 Albumin 4.1 GM/DL 3.2-5.2 Globulin 2.9 GM/DL 2-4 Albumin/Globulin Ratio 1.4 1-3 Bilirubin Total 0.7 mg/dL 0.4-1.5 62 Alkaline Phosphatase 54 U/L 30-110 Alt (SGPT) 20 U/L 14-54 Ast (Sgot) 27 U/L 12-42 eGFR Non- 49.1 > 60 eGFR 63.1 > 60 63 CBC With Manual Diff 06/22/2010 White Blood [...] mmol/L 22-32 Anion Gap 7.0 mmol/L 2-11 64 Glucose 141 mg/dL High 70-100 65 BUN 18 mg/dL 6-24 Creatinine 1.40 mg/dL 0.50-1.40 One Over Creatinine 0.70 BUN/Creatinine Ratio 12.9 8-20 Calcium 9.1 mg/dL 8.1-9.9 Total Protein 6.3 GM/DL 6.2-8.1 Albumin 3.4 GM/DL 3.2-5.2 Globulin 2.9 GM/DL 2-4 Albumin/Globulin Ratio 1.2 1-3 Bilirubin Total 0.6 mg/dL 0.4-1.5 66 Alkaline Phosphatase 70 U/L 30-110 Alt (SGPT) 24 U/L 14-54 Ast (Sgot) 25 U/L 12-42 eGFR Non- 39.5 > 60 eGFR 47.8 > 60 67 Laboratory test finding 03/23/2010 Carcino Embryonic 1.99 NG/ML 0-5 68 Antigen Comp Metabolic Panel 12/22/2009 Sodium 134 mmol/L Low 135-145 Potassium 4.6 mmol/L 3.5-5.0 Chloride 96 mmol/L Low 101-111 Co2 (Carbon Dioxide) 30.0 mmol/L 22-32 Anion Gap 8.0 mmol/L 2-11 69 Glucose 67 mg/dL Low 70-100 70 BUN 16 mg/dL 6-24 Creatinine 0.80 mg/dL 0.50-1.40 One Over Creatinine 1.20 BUN/Creatinine Ratio 20.0 8-20 Calcium 9.6 mg/dL 8.1-9.9 Total Protein 6.8 GM/DL 6.2-8.1 Albumin 4.2 GM/DL 3.2-5.2 Globulin 2.6 GM/DL 2-4 Albumin/Globulin Ratio 1.6 1-3 Bilirubin Total 1.1 mg/dL 0.4-1.5 71 Alkaline Phosphatase 60 U/L 30-110 Alt (SGPT) 24 U/L 14-54 Ast (Sgot) 30 U/L 12-42 eGFR Non- 75.6 > 60 eGFR 91.5 > 60 72 Laboratory test finding 12/22/2009 Carcino Embryonic Antigen 2.32 NG/ML 0 -5 73 CBC With Manual Diff 12/22/2009 White Blood [...] mmol/L 22-32 Anion Gap 8.0 mmol/L 2-11 74 Glucose 76 mg/dL 70-100 75 BUN 14 mg/dL 6-24 Creatinine 0.90 mg/dL 0.50-1.40 One Over Creatinine 1.10 BUN/Creatinine Ratio 15.6 8-20 Calcium 9.7 mg/dL 8.1-9.9 76 Total Protein 7.1 GM/DL 6.2-8.1 Albumin 3.9 GM/DL 3.2-5.2 Globulin 3.2 GM/DL 2-4 Albumin/Globulin Ratio 1.2 1-3 Bilirubin Total 0.6 mg/dL 0.4-1.5 77 Alkaline Phosphatase 81 U/L 30-110 Alt (SGPT) 21 U/L 14-54 Ast (Sgot) 27 U/L 12-42 eGFR Non- 66.0 > 60 eGFR 79.8 > 60 78 Laboratory test finding 08/03/2009 Carcino Embryonic Antigen 1.48 NG/ML 0 -5 79 Comp Metabolic Panel 04/26/2009 Sodium 136 mmol/L 135-145 Potassium 4.5 mmol/L 3.5-5.0 Chloride 99 mmol/L Low 101-111 Co2 (Carbon Dioxide) 29.0 mmol/L 22-32 Anion Gap 8.0 mmol/L 2-11 80 Glucose 68 mg/dL Low 70-100 81 BUN 17 mg/dL 6-24 Creatinine 0.80 mg/dL 0.50-1.40 One Over Creatinine 1.20 BUN/Creatinine Ratio 21.3 High 8-20 Calcium 9.7 mg/dL 8.1-9.9 82 Total Protein 6.9 GM/DL 6.2-8.1 Albumin 4.0 GM/DL 3.2-5.2 Globulin 2.9 GM/DL 2-4 Albumin/Globulin Ratio 1.4 1-3 Bilirubin Total 0.6 mg/dL 0.4-1.5 83 Alkaline Phosphatase 70 U/L 30-110 Alt (SGPT) 26 U/L 14-54 Ast (Sgot) 31 U/L 12-42 eGFR Non- 75.6 > 60 eGFR 91.5 > 60 84 Laboratory test finding 04/26/2009 Carcino Embryonic Antigen 1.59 NG/ML 0 -5 85 CBC With Manual Diff 04/26/2009 White Blood [...] Negative titer <1:240 Agna-1 Negative titer <1:240 Integrated Circuit [employer]ator-1 Negative titer <1:240 Integrated Circuit Fabricator-2 Negative titer <1:240 Integrated Circuit Fabricator-Tr Negative titer <1:240 Amphiphysin AB Negative titer <1:240 [id number] Negative titer () 86 Striational AB Negative titer <1:60 87 P/Q-Type Calcium Channel AB 0.00 nmol/L <=0.02 88 N-Type Calcium Channel AB 0.00 nmol/L <=0.03 89 Ach Receptor Binding AB 0.00 nmol/L <=0.02 90 Achr Ganglionic Neuronal AB 0.01 nmol/L <=0.02 91 VGKC AB, Serum 0.00 nmol/L <=0.02 92 Immunofixation (Electro) Serum 03/31/2009 Albumin 3.43 GM/DL [...] 6.7 GM/DL 6.2-8.1 Spep Comments (SEE NOTE) 93 Serum Immunofixation (SEE NOTE) 94 Laboratory test finding 03/31/2009 Vitamin B12 372 pg/mL 180-914 Basic Metabolic Panel 03/23/2009 Sodium 140 mmol/L 135-145 Potassium 4.8 mmol/L 3.5-5.0 Chloride 103 mmol/L 101-111 Co2 (Carbon Dioxide) 28.0 mmol/L 22-32 Anion Gap 9.0 mmol/L 2-11 95 Glucose 74 mg/dL 70-100 96 BUN 20 mg/dL 6-24 Creatinine 1.00 mg/dL 0.50-1.40 One Over Creatinine 1.00 BUN/Creatinine Ratio 20.0 8-20 Calcium 9.6 mg/dL 8.1-9.9 97 eGFR Non- 58.4 > 60 eGFR 70.7 > 60 98 Comp Metabolic Panel 01/20/2009 Sodium 138 mmol/L 135-145 Potassium 3.5 mmol/L 3.5-5.0 Chloride 103 mmol/L 101-111 Co2 (Carbon Dioxide) 27.0 mmol/L 22-32 Anion Gap 8.0 mmol/L 2-11 99 Glucose 100 mg/dL 70-100 100 BUN 15 mg/dL 6-24 Creatinine 1.00 mg/dL 0.50-1.40 One Over Creatinine 1.00 BUN/Creatinine Ratio 15.0 8-20 Calcium 9.4 mg/dL 8.1-9.9 101 Total Protein 7.2 GM/DL 6.2-8.1 Albumin 4.0 GM/DL 3.2-5.2 Globulin 3.2 GM/DL 2-4 Albumin/Globulin Ratio 1.3 1-3 Bilirubin Total 0.7 mg/dL 0.4-1.5 102 Alkaline Phosphatase 74 U/L 30-110 Alt (SGPT) 28 U/L 14-54 Ast (Sgot) 34 U/L 12-42 eGFR Non- 58.4 > 60 eGFR 70.7 > 60 103 Lipid Profile (Trig/Chol/HDL) 01/20/2009 Triglyceride 317 mg/dL High 40- 200 Cholesterol 247 mg/dL High Less Than 200 104 High Density Lipoprotein 35 mg/dL Low 40-60 105 Cholesterol/HDL Ratio 7.06 AVERAGE High 1-4.44 Low Density Lipoprotein 149 mg/dL High Less Than 100 106 Protein Electrophoresis Serum 01/20/2009 Albumin 3.80 GM/DL [...] 7.3 GM/DL 6.2-8.1 Spep Comments (SEE NOTE) 107 Laboratory test finding 01/20/2009 Ferritin 65 NG/ML 11.0-307 Vitamin B12 326 pg/mL 180-914 Carcino Embryonic Antigen 1.47 NG/ML 0-5 108 Iron & Iron Binding Capacity 01/20/2009 Iron [...] mmol/L 22-32 Anion Gap 10.0 mmol/L 2-11 109 Glucose 99 mg/dL 70-100 110 BUN 16 mg/dL 6-24 Creatinine 0.90 mg/dL 0.50-1.40 One Over Creatinine 1.10 BUN/Creatinine Ratio 17.8 8-20 Calcium 9.6 mg/dL 8.1-9.9 111 Total Protein 7.1 GM/DL 6.2-8.1 Albumin 4.1 GM/DL 3.2-5.2 Globulin 3.0 GM/DL 2-4 Albumin/Globulin Ratio 1.4 1-3 Bilirubin Total 0.5 mg/dL 0.4-1.5 112 Alkaline Phosphatase 73 U/L 30-110 Alt (SGPT) 26 U/L 14-54 Ast (Sgot) 34 U/L 12-42 eGFR Non- 66.0 > 60 eGFR 79.8 > 60 113 CBC With Manual Diff 01/20/2009 White Blood [...] 03/04/2008 Carcino Embryonic 41.68 NG/ML High 0-5 114 Antigen Comp Metabolic Panel 03/04/2008 Sodium 134 mmol/L Low 135-145 Potassium 3.6 mmol/L 3.5-5.0 Chloride 98 mmol/L Low 101-111 Co2 (Carbon Dioxide) 30.0 mmol/L 22-32 Anion Gap 6.0 mmol/L 2-11 115 Glucose 83 mg/dL 70-100 116 BUN 7 mg/dL 6-24 Creatinine 0.66 mg/dL 0.50-1.40 One Over Creatinine 1.50 BUN/Creatinine Ratio 10.6 8-20 Calcium 9.2 mg/dL 8.1-9.9 117 Total Protein 7.1 GM/DL 6.2-8.1 Albumin 3.5 GM/DL 3.2-5.2 Globulin 3.6 GM/DL 2-4 Albumin/Globulin Ratio 1.0 1-3 Bilirubin Total 0.6 mg/dL 0.4-1.5 Alkaline Phosphatase 97 U/L 30-110 Alt (SGPT) 15 U/L 14-54 Ast (Sgot) 28 U/L 12-42 Surgical Pathology 03/04/2008 Surgical 118 Pathology <SEE NOTE> Protein 02/27/2008 Albumin 3.04 GM/DL 3.0-4.3 119 Electrophoresis Serum 5 Alpha 1 0.20 GM/DL 0.09-0.33 119 Alpha 2 0.98 GM/DL 0.59-1.18 119 Beta 1.08 GM/DL High 0.68-1.02 119 Gamma 1.40 GM/DL 0.76-1.60 119 Albumin % 45.4 % Low 46-63 119 Alpha 1 % 3.0 % 1.2-5.3 119 Alpha 2 % 14.6 % 9-17 119 Beta % 16.1 % High 10-16 119 Gamma % 20.9 % 12-22 119 A/G Ratio 0.8 Low 0.9-2 119 Total Protein 6.7 GM/DL 6.2-8.1 119 Spep Comments (SEE NOTE) 119, 120 Comp Metabolic Panel 02/27/2008 Sodium 137 mmol/L 135-145 119 Potassium 3.5 mmol/L 3.5-5.0 119 Chloride 101 mmol/L 101-111 119 Co2 (Carbon Dioxide) 27.0 mmol/L 22-32 119 Anion Gap 9.0 mmol/L 2-11 119, 121 Glucose 134 mg/dL High 70-100 119, 122 BUN 11 mg/dL 6-24 119 Creatinine 0.80 mg/dL 0.50-1.40 119 One Over Creatinine 1.20 119 BUN/Creatinine Ratio 13.8 8-20 119 Calcium 9.5 mg/dL 8.1-9.9 119, 123 Total Protein 6.7 GM/DL 6.2-8.1 119 Albumin 3.6 GM/DL 3.2-5.2 119 Globulin 3.1 GM/DL 2-4 119 Albumin/Globulin Ratio 1.2 1-3 119 Bilirubin Total 0.3 mg/dL Low 0.4-1.5 119 Alkaline Phosphatase 105 U/L 30-110 119 Alt (SGPT) 15 U/L 14-54 119 Ast (Sgot) 24 U/L 12-42 119 Laboratory test finding 02/27/2008 Ferritin < 10 NG/ML Low 11.0-307 119 Erythrocyte Sed Rate 59 MM/HR High 0-40 119 Iron & Iron Binding Capacity 02/27/2008 Iron Total 20 g/dL Low 28- 170 119 Unsaturated Iron Binding 350 g/dL 119 Total Iron Binding Capacity 370 g/dL 250-450 119 % Iron Saturation 5 % Low 15-55 119 Laboratory test finding 02/19/2008 Hemoglobin A1c 5.8 % <6.0 124 CBC With Manual Diff 02/19/2008 White Blood [...] 25-Hydroxy Vitamin D Total 35 ng/mL () 125 Laboratory test finding 01/29/2008 Hemoglobin A1c 6.2 % High <6.0 126 CBC With Manual Diff 01/29/2008 White Blood [...] Cholesterol 226 mg/dL High Less Than 200 127 Cholesterol/HDL Ratio 7.79 AVERAGE High 1-4.44 Low Density Lipoprotein 135 mg/dL High Less Than 100 128 High Density Lipoprotein 29 mg/dL Low 40-60 129 Comp Metabolic Panel 01/29/2008 Sodium 139 mmol/L 135-145 Potassium 4.1 mmol/L 3.5-5.0 Chloride 99 mmol/L Low 101-111 Co2 (Carbon Dioxide) 32.0 mmol/L 22-32 Anion Gap 8.0 mmol/L 2-11 130 BUN 13 mg/dL 6-24 Creatinine 0.9 mg/dL 0.5-1.4 One Over Creatinine 1.11 BUN/Creatinine Ratio 14.4 8-20 Calcium 9.4 mg/dL 8.1-9.9 131 Albumin 3.5 GM/DL 3.2-5.2 Globulin 4.0 GM/DL 2-4 Albumin/Globulin Ratio 0.9 Low 1-3 Bilirubin Total 0.5 mg/dL 0.4-1.5 Alkaline Phosphatase 94 U/L 30-110 Alt (SGPT) 14 U/L 14-54 Ast (Sgot) 25 U/L 12-42 Glucose 84 mg/dL 70-100 132 Total Protein 7.5 GM/DL 6.2-8.1 1 Craft Worker: [id number] 2 SEE RESULT BELOW Name: FRANCISCA COBURN : [address]: Heriberto Mejias MD Acct: [id number] Unit: [id number] AGE: 77 Location: ED Re06/15/17 SEX: F Status: REG ER SPEC: [id number] JUAN ANTONIO: 06/15/17-[address]: Heriberto Mejias MD REQ: [id number] RECD: 06/15/17 STATUS: MARYANN FLORES DR: Echo Rivero [employer] _ SOURCE[facility] ORDERED: Flu A B Request Procedure Result Reported Site Rapid Influenza A B Request Final 06/15/17- 1329 ML Specimen received for Influenza A/B Molecular testing * ML - Main Lab . END OF REPORT DEPARTMENT OF PATHOLOGY, [address] [place] [address] Riky Samayoa M.D. Director [facility] # [id number] 3 Because ethnic data is not always readily [...] 15-29 5 Kidney failure <15 (or dialysis) 4 Acute inflammation: >10.00 5 Result TnIDx:0.05 Called to [id number] at: 13:32:38 by:[id number] Read back by: [id number] 6 >100 to <200 pg/mL: likely compensated congestive heart failure (CHF) 200 to 400 pg/mL: likely moderate CHF >400 pg/mL: likely moderate to severe CHF 7 [facility] Severe Sepsis and Septic Shock Management Bundle Measure requires all lactic acids initially measuring >2.0 mmol/L be repeated. 8 Acute inflammation: >10.00 9 Because ethnic data is not always readily [...] 15-29 5 Kidney failure <15 (or dialysis) 10 Because ethnic data is not always [...] 5 Kidney failure <15 (or dialysis) 11 Desirable: <150 Borderline High: 150-199 High: 200-499 Very High: >500 12 Desirable: <200 Borderline High: 200-239 High: >239 13 Low: <40 Desirable: 40-60 High: >60 14 Desirable: <100 Near Optimal: 100-129 Borderline High: 130-159 High: 160-189 Very High: >189 15 Desirable <150 Borderline high 150-199 High 200-499 Very High >500 16 Desirable <200 Borderline high 200-239 High >239 17 Low <40 Desirable: 40-60 High: >60 18 Desirable: <100 mg/dL Near Optimal: 100-129 mg/dL Borderline High: 130-159 mg/dL High: 160-189 mg/dL Very High: >189 mg/dL 19 Because ethnic data is not always [...] 5 Kidney failure <15 (or dialysis) 20 Because ethnic data is not always readily [...] 15-29 5 Kidney failure <15 (or dialysis) 21 Desirable <150 Borderline high 150-199 High 200-499 Very High >500 22 Desirable <200 Borderline high 200-239 High >239 23 Low <40 Desirable: 40-60 High: >60 24 Desirable: <100 mg/dL Near Optimal: 100-129 mg/dL Borderline High: 130-159 mg/dL High: 160-189 mg/dL Very High: >189 mg/dL 25 *Ascorbic acid is present which may interfere with detection of blood. 26 RUN DATE: 02/14/14 [facility] LAB LIVE PAGE 1 RUN TIME: [address] [place] [address] Specimen Inquiry Name: FRANCISCA COBURN : [address]: Jose Marin MD Acct: [id number] Unit: [id number] AGE: 74 Location: [facility] Re02/12/14 SEX: F Status: REG REF SPEC: [id number] JUAN ANTONIO: 02/12/14-[address] [facility] [address]: Jose Marin MD REQ: [id number] RECD: 02/12/14 STATUS: MARYANN FLORES DR: Alexi Kim III, MD _ SOURCE: URINE SPDESC: ORDERED: Urine Culture Procedure Result Verified Site Urine Culture Final 02/14/14- 0807 ML Organism 1 ESCHERICHIA COLI [place] Count 75-100,000 (Many) CFU/ML Organism 2 ENTEROCOCCUS SPECIES GP D [place] Count >100,000 (Many) CFU/ML 1. ESCHERICHIA COLI [...] performed at Main Lab DEPARTMENT OF PATHOLOGY, [address] [place] [address] Riky Samayoa M.D. Director [facility] # [id number] RUN DATE: 02/14/14 [facility] LAB LIVE PAGE 2 RUN TIME: [address] [place] [address] Specimen Inquiry Patient: FRANCISCA COBURN [id number] (Continued) Specimen: [id number] Collected: 02/12/14-1200 Received: 02/12/14-1251 (Continued) Procedure Result Verified Site Urine Culture Final (continued) 02/14/14806 2. ENTEROCOCCUS SPECIES GP D (continued) Guzman RX --------- ------ Gentamicin High Level S Levofloxacin 1 S Linezolid 2 S Nitrofurantoin <=16 S * Quinupristin/Dalfopristin 8 R * Streptomycin High Level S Tetracycline >=16 R Tigecycline <=0.12 S Vancomycin 1 S Imipenem-Deduced S * Ampicillin/Sulbactam-Deduced S * These antibiotics are not available in the [facility] Formulary Contact the Microbiology Department for any additional antibiotic reporting. Contact the Microbiology Department for any additional antibiotic reporting. END OF REPORT * ML=Testing performed at Main Lab DEPARTMENT OF PATHOLOGY, [address] [place] [address] Riky Samayoa M.D. Director [facility] # [id number] SURGERY DATE: 02/17/14 28 Because ethnic data is not always readily [...] 15-29 5 Kidney failure <15 (or dialysis) 29 PT IS FASTING 30 Desirable <150 Borderline high 150-199 High 200-499 Very High >500 31 Desirable <200 Borderline high 200-239 High >239 32 Low <40 Desirable: 40-60 High: >60 33 Desirable <100 Near Optimal 100-129 Borderline high 130-159 High 160-189 Very High >189 34 Because ethnic data is not always readily [...] 15-29 5 Kidney failure <15 (or dialysis) 35 -- REFERENCE VALUE -- 25-HYDROXY D TOTAL (D2+D3) Optimum levels in the healthy population are 20-50, patients with bone disease may benefit from higher levels within this range. Test Performed by: [facility] [address] [address] Garland Machine Operator: Souleymane Weinstein III, M.D. 36 Because ethnic data is not always readily [...] 15-29 5 Kidney failure <15 (or dialysis) 37 Reference Range and Interpretation: TnI (ng/mL) Interpretation Less Than 0.06 ng/mL Not supportive of diagnosis of NC 0.06 - 0.50 ng/mL Indeterminate: suggest serial studies if clinically indicated. Greater than 0.5 ng/mL Consistent with diagnosis of NC 38 PT IS FASTING 39 Because ethnic data is not always readily [...] 15-29 5 Kidney failure <15 (or dialysis) 40 HDL Interpretation: Undesirable: High Risk: Less than 40 MG/DL Desirable: Low Risk: Greater than 60 MG/DL 41 LDL Interpretation: Low Risk Optimal Level: LDL Less than 100 MG/DL Near or Above Optimal: LDL 100-129 MG/DL Borderline High Risk: LDL 130-159 MG/DL High Risk: LDL 160-189 MG/DL Very High Risk: LDL Greater than 189 MG/DL 42 Therapeutic target for the treatment of diabetes Mellitus patients is <7% HBA1C, and in selective patients <6.0%.Please refer to [place] [employer] Diabetic care guidelines for further information. 43 RUN DATE: 03/18/12 [facility] LAB LIVE PAGE 1 RUN TIME: [address] [place] [address] Specimen Inquiry Name: FRANCISCA COBURN : [address]: Bj KLEIN,Cuong Be Acct: [id number] Unit: [id number] AGE: 72 Location: [facility] Re03/14/12 SEX: F Status: REG REF SPEC: [id number] JUAN ANTONIO: 03/14/12 DR: Bj KLEIN, Cuong Be REQ: [id number] RECD: 03/15/12 STATUS: ASHLY FLORES DR: Abram Cm MD ENTERED: 03/15/12 SP TYPE: SURGICAL P Judy CHANDLER MD, Alexi _ ORDERED: LEVEL IV/2 FINAL [...] performed at Main Lab DEPARTMENT OF PATHOLOGY, [facility] [employer] [place], [place] [address] Riky Samayoa M.D. Director [facility] Permit #[id number] RUN DATE: 03/18/12 [facility] LAB LIVE PAGE 2 RUN TIME: [address] [facility] [employer] [place], [place] [address] Specimen Inquiry Patient: FRANCISCA COBURN [id number] (Continued) GROSS DESCRIPTION (Continued) Signed (signature on file) Riky Samayoa MD 1404 END OF REPORT * ML=Testing performed at Main Lab DEPARTMENT OF PATHOLOGY, [address] [place] [address] Riky Samayoa M.D. Director [facility] Permit #[id number] CHOLESTEROL INTERPRETATION: Desirable: Less than 200 [...] Risk: LDL Greater than 189 MG/DL 47 Anion gap measurement may be of limited value in the presence of any alkalosis, especially in a combined acid base disorder. . 48 A metabolite of Naproxen, O-desmethylnaproxen, has been shown to interfere with the Jendrassik-Agusto method for measuring total bilirubin. Samples from patients who have taken Naproxen have shown spurious elevation in total bilirubin levels. 49 Because ethnic data is not always readily [...] 15-29 5 Kidney failure <15 (or dialysis) 50 THERAPEUTIC TARGET FOR THE TREATMENT OF DIABETES MELLITUS PATIENTS IS <7% HBA1C, AND IN SELECTIVE PATIENTS <6.0%. PLEASE REFER TO [place] [employer] DIABETIC CARE GUIDELINES FOR FURTHER INFORMATION. 51 Test Performed by: [facility] Med [facility] Pathology [address] [place] [address] Garland Machine Operator: Souleymane Weinstein III, M.D. 52 -- REFERENCE VALUE -- Not present Test Performed by: [facility] [address] [place] [address] Garland Machine Operator: Souleymane Weinstein III, M.D. 53 CHOLESTEROL INTERPRETATION: Desirable: Less than 200 MG/DL Borderline-High Risk: 200-239 MG/DL High-Risk: 240 MG/DL and over 54 HDL INTERPRETATION: Undesirable: High Risk: Less than 40 MG/DL Desirable: Low Risk: Greater than 60 MG/DL 55 LDL INTERPRETATION: Low Risk Optimal Level: LDL Less than 100 MG/DL Near or Above Optimal: LDL 100-129 MG/DL Borderline High Risk: LDL 130-159 MG/DL High Risk: LDL 160-189 MG/DL Very High Risk: LDL Greater than 189 MG/DL 56 CHOLESTEROL INTERPRETATION: Desirable: Less than 200 MG/DL Borderline-High Risk: 200-239 MG/DL High-Risk: 240 MG/DL and over 57 HDL INTERPRETATION: Undesirable: High Risk: Less than 40 MG/DL Desirable: Low Risk: Greater than 60 MG/DL 58 LDL INTERPRETATION: Low Risk Optimal Level: LDL Less than 100 MG/DL Near or Above Optimal: LDL 100-129 MG/DL Borderline High Risk: LDL 130-159 MG/DL High Risk: LDL 160-189 MG/DL Very High Risk: LDL Greater than 189 MG/DL 59 Anion gap measurement may be of limited value in the presence of any alkalosis, especially in a combined acid base disorder. . 60 Because ethnic data is not always readily [...] 15-29 5 Kidney failure <15 (or dialysis) 61 Anion gap measurement may be of limited value in the presence of any alkalosis, especially in a combined acid base disorder. . 62 A metabolite of Naproxen, O-desmethylnaproxen, has been shown to interfere with the Jendrassik-Rincon method for measuring total bilirubin. Samples from [...] 5 Kidney failure <15 (or dialysis) 64 Anion gap measurement may be of limited value in the presence of any alkalosis, especially in a combined acid base disorder. . 65 Note change in reference range as of 12/05/07. The change was based on recommendations from the [place] [employer]. 66 A metabolite of Naproxen, O-desmethylnaproxen, has been shown to interfere with the Jendrassik-Agusto method for measuring total bilirubin. Samples from patients who have taken Naproxen have shown spurious elevation in total bilirubin levels. 67 Because ethnic data is not always readily [...] 15-29 5 Kidney failure <15 (or dialysis) 68 SMOKING MAY INCREASE VALUES SERUM LEVELS OF CEA MEASURED USING THE [employer] ACCESS IMMUNOASSAY SYSTEM SHOULD NOT BE INTERPRETED ABSOLUTE EVIDENCE OF THE PRESENCE OR ABSENCE OF DISEASE. THE CEA VALUE SHOULD BE USED IN CONJUNCTION WITH OTHER PERTINENT CLINICAL DIAGNOSTIC PROCEDURES. 69 Anion gap measurement may be of limited value in the presence of any alkalosis, especially in a combined acid base disorder. . 70 Note change in reference range as of 12/05/07. The change was based on recommendations from the [place] [employer]. 71 A metabolite of Naproxen, O-desmethylnaproxen, has been shown to interfere with the Jendrassik-Agusto method for measuring total bilirubin. Samples from patients who have taken Naproxen have shown spurious elevation in total bilirubin levels. 72 Because ethnic data is not always readily [...] 15-29 5 Kidney failure <15 (or dialysis) 73 SMOKING MAY INCREASE VALUES SERUM LEVELS OF CEA MEASURED USING THE [employer] ACCESS IMMUNOASSAY SYSTEM SHOULD NOT BE INTERPRETED ABSOLUTE EVIDENCE OF THE PRESENCE OR ABSENCE OF DISEASE. THE CEA VALUE SHOULD BE USED IN CONJUNCTION WITH OTHER PERTINENT CLINICAL DIAGNOSTIC PROCEDURES. 74 Anion gap measurement may be of limited value in the presence of any alkalosis, especially in a combined acid base disorder. . 75 Note change in reference range as of 12/05/07. The change was based on recommendations from the [place] [employer]. 76 Please note change in reference range effective 07 . 77 A metabolite of Naproxen, O-desmethylnaproxen, has been shown to interfere with the Jendrassik-Rincon method for measuring total bilirubin. Samples from patients who have taken Naproxen have shown spurious elevation in total bilirubin levels. 78 Because ethnic data is not always readily [...] 15-29 5 Kidney failure <15 (or dialysis) 79 SMOKING MAY INCREASE VALUES SERUM LEVELS OF CEA MEASURED USING THE [employer]EEM DEEPIKA ACCESS IMMUNOASSAY SYSTEM SHOULD NOT BE INTERPRETED ABSOLUTE EVIDENCE OF THE PRESENCE OR ABSENCE OF DISEASE. THE CEA VALUE SHOULD BE USED IN CONJUNCTION WITH OTHER PERTINENT CLINICAL DIAGNOSTIC PROCEDURES. 80 Anion gap measurement may be of limited value in the presence of any alkalosis, especially in a combined acid base disorder. . 81 Note change in reference range as of 12/05/07. The change was based on recommendations from the [place] [employer]. 82 Please note change in reference range effective 07 . 83 A metabolite of Naproxen, O-desmethylnaproxen, has been shown to interfere with the Jendrassik-Agusto method for measuring total bilirubin. Samples from patients who have taken Naproxen have shown spurious elevation in total bilirubin levels. 84 Because ethnic data is not always readily [...] 15-29 5 Kidney failure <15 (or dialysis) 85 SMOKING MAY INCREASE VALUES SERUM LEVELS OF CEA MEASURED USING THE NAEEM DEEPIKA ACCESS IMMUNOASSAY SYSTEM SHOULD NOT BE INTERPRETED ABSOLUTE EVIDENCE OF THE PRESENCE OR ABSENCE OF DISEASE. THE CEA VALUE SHOULD BE USED IN CONJUNCTION WITH OTHER PERTINENT CLINICAL DIAGNOSTIC PROCEDURES. 86 -- REFERENCE VALUE -- Negative at <1:240 Titers lower than 1:240 may be detectable by recombinant CRMP-5 western blot analysis. CRMP-5 western blot analysis will be done by request on stored serum (held 4 weeks). This supplemental testing is recommended in cases of chorea, vision loss, cranial neuropathy and myelopathy. Contact [facility] Inquiry at [phone] ([phone])to add-on CRMP-5-IgG Western Blot, S. Test Performed by: [facility] [address] [place] [address] Garland Machine Operator: Souleymane Weinstein III, M.D. 87 Test Performed by: [facility] [address] [place] [address] Garland Machine Operator: Souleymane Weinstein III, M.D. 88 Test Performed by: [facility] [address] [place] [address] Garland Machine Operator: Souleymane Weinstein III, M.D. 89 Test Performed by: [facility] [address] [place] [address] Garland Machine Operator: Souleymane Weinstein III, M.D. 90 Test Performed by: [facility] [address] [place] [address] Garland Machine Operator: Souleymane Weinstein III, M.D. 91 Test Performed by: [facility] [address] [place] [address] Garland Machine Operator: Souleymane Weinstein III, M.D. 92 Test Performed by: [facility] [address] [place] [address] Garland Machine Operator: Souleymane Weinstein III, M.D. 93 NORMAL ELECTROPHORETIC PATTERN. 94 NORMAL SERUM IMMUNOFIXATION ELECTROPHORETIC PATTERN. NO MONOCLONAL PROTEIN DETECTED. 95 Anion gap measurement may be of limited value in the presence of any alkalosis, especially in a combined acid base disorder. . 96 Note change in reference range as of 12/05/07. The change was based on recommendations from the [place] [employer]. 97 Please note change in reference range effective 07 . 98 Because ethnic data is not always readily [...] 15-29 5 Kidney failure <15 (or dialysis) 99 Anion gap measurement may be of limited value in the presence of any alkalosis, especially in a combined acid base disorder. . 100 Note change in reference range as of 12/05/07. The change was based on recommendations from the [place] [employer]. 101 Please note change in reference range effective 07 . 102 A metabolite of Naproxen, O-desmethylnaproxen, has been shown to interfere with the Jendrassik-Rincon method for measuring total bilirubin. Samples from patients who have taken Naproxen have shown spurious elevation in total bilirubin levels. 103 Because ethnic data is not always readily [...] 15-29 5 Kidney failure <15 (or dialysis) 104 CHOLESTEROL INTERPRETATION: Desirable: Less than 200 MG/DL Borderline-High Risk: 200-239 MG/DL High-Risk: 240 MG/DL and over 105 HDL INTERPRETATION: Undesirable: High Risk: Less than 40 MG/DL Desirable: Low Risk: Greater than 60 MG/DL 106 LDL INTERPRETATION: Low Risk Optimal Level: LDL Less than 100 MG/DL Near or Above Optimal: LDL 100-129 MG/DL Borderline High Risk: LDL 130-159 MG/DL High Risk: LDL 160-189 MG/DL Very High Risk: LDL Greater than 189 MG/DL 107 NORMAL ELECTROPHORETIC PATTERN. 108 SMOKING MAY INCREASE VALUES SERUM LEVELS OF CEA MEASURED USING THE NAEEM DEEPIKA ACCESS IMMUNOASSAY SYSTEM SHOULD NOT BE INTERPRETED ABSOLUTE EVIDENCE OF THE PRESENCE OR ABSENCE OF DISEASE. THE CEA VALUE SHOULD BE USED IN CONJUNCTION WITH OTHER PERTINENT CLINICAL DIAGNOSTIC PROCEDURES. 109 Anion gap measurement may be of limited value in the presence of any alkalosis, especially in a combined acid base disorder. . 110 Note change in reference range as of 12/05/07. The change was based on recommendations from the [place] [employer]. 111 Please note change in reference range effective 07 . 112 A metabolite of Naproxen, O-desmethylnaproxen, has been shown to interfere with the Jendrassik-Agusto method for measuring total bilirubin. Samples from patients who have taken Naproxen have shown spurious elevation in total bilirubin levels. 113 Because ethnic data is not always readily [...] 15-29 5 Kidney failure <15 (or dialysis) 114 SMOKING MAY INCREASE VALUES SERUM LEVELS OF CEA MEASURED USING THE NAEEM DEEPIKA ACCESS IMMUNOASSAY SYSTEM SHOULD NOT BE INTERPRETED ABSOLUTE EVIDENCE OF THE PRESENCE OR ABSENCE OF DISEASE. THE CEA VALUE SHOULD BE USED IN CONJUNCTION WITH OTHER PERTINENT CLINICAL DIAGNOSTIC PROCEDURES. 115 Anion gap measurement may be of limited value in the presence of any alkalosis, especially in a combined acid base disorder. . 116 Note change in reference range as of 12/05/07. The change was based on recommendations from the [place] [employer]. 117 Please note change in reference range effective 07 . 118 ----- RUN DATE: 03/05/08 [facility] NMI LIVE PAGE 1 RUN TIME: 1419 Specimen Inquiry RUN USER: INTERFACE -- Name: FRANCISCA COBURN Status: REG REF Re03/04/08 Age/Sex: 68/F Unit#: [id number] Location: [address] [place] [address]. : [birth year] -- Specimen: [id number] Spec Date: 03/04/[address]: Joce valdes MD Spec Type: SURGICAL P Received: 03/04/08-131 Copies to: Alexi Kim III, MD SPECIMEN [...] 03/05/08 1419 -- -- DEPARTMENT OF PATHOLOGY, [address] [place] [address] [facility] Permit [id number] Riky Samayoa M.D. Director Nghia Vasquez M.D. Bobbin Fixer Dir ricardo -- 119 PATIENT MAY HAVE RESULTS PER DOCTOR'S AUTHORIZATION. Questions regarding this report should be directed to your doctor. 120 INCREASED BETA GLOBULIN- CONSISTENT WITH HYPERLIPO- PROTEINEMIA OR IRON DEFICIENCY. 121 Anion gap measurement may be of limited value in the presence of any alkalosis, especially in a combined acid base disorder. . 122 Note change in reference range as of 12/05/07. The change was based on recommendations from the [place] [employer]. 123 Please note change in reference range effective 07 . 124 THERAPEUTIC TARGET FOR THE TREATMENT OF DIABETES MELLITUS PATIENTS IS <7% HBA1C, AND IN SELECTIVE PATIENTS <6.0%. PLEASE REFER TO [place] [employer] DIABETIC CARE GUIDELINES FOR FURTHER INFORMATION. 125 -- REFERENCE VALUE -- 25-HYDROXY D TOTAL (D2+D3) Optimum levels in the normal population are 25-80 Test Performed by: [facility] [address] [place] [address] Garland Machine Operator: Souleymane Weinstein III, M.D. 126 THERAPEUTIC TARGET FOR THE TREATMENT OF DIABETES MELLITUS PATIENTS IS <7% HBA1C, AND IN SELECTIVE PATIENTS <6.0%. PLEASE REFER TO [place] [employer] DIABETIC CARE GUIDELINES FOR FURTHER INFORMATION. 127 CHOLESTEROL INTERPRETATION: Desirable: Less than 200 MG/DL Borderline-High Risk: 200-239 MG/DL High-Risk: 240 MG/DL and over 128 LDL INTERPRETATION: Low Risk Optimal Level: LDL Less than 100 MG/DL Near or Above Optimal: LDL 100-129 MG/DL Borderline High Risk: LDL 130-159 MG/DL High Risk: LDL 160-189 MG/DL Very High Risk: LDL Greater than 189 MG/DL 129 HDL INTERPRETATION: Undesirable: High Risk: Less than 40 MG/DL Desirable: Low Risk: Greater than 60 MG/DL 130 Anion gap measurement may be of limited value in the presence of any alkalosis, especially in a combined acid base disorder. . 131 Please note change in reference range effective 07 . 132 Note change in reference range as of 12/05/07. The change was based on recommendations from the [place] [employer]. Procedures Date CPT Code Description Status 03/30/2017 Mammogram Completed 02/27/2017 16676 Diffusing Capacity Completed 02/27/2017 65472 Spirometry Incl Graphic Record Completed 10/27/2016 71035 Admin Of Inj Completed 02/29/2016 78819 Chemotherpy Admin Subcutaneous/Im Non-Hormonal Completed Anti-Neoplastic 05/11/2015 91143 Chemotherpy Admin Subcutaneous/Im Non-Hormonal Completed Anti-Neoplastic 04/01/2015 Bone Mineral Density Test Completed 04/01/2015 Mammogram Completed 03/31/2015 16224 Pulmonary Stress Test Simple Completed 10/07/2014 00963 Admin Of Inj Completed 09/23/2014 55401 Pulmonary Stress Test Simple Completed 04/20/2014 48554 Admin Of Inj Completed 03/30/2014 76927 Rad Exam; Pelvis Completed 03/30/2014 04607 Rad Exam; Hip Unilat Completed 02/17/2014 62091 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 02/17/2014 10474 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 02/12/2014 34709 Spirometry Incl Graphic Record Completed 02/09/2014 70232 Spirometry Incl Graphic Record, Timed Expiratory Flow Completed Rate 02/04/2014 26019 EKG Tracing & Interpretation Completed 12/29/2013 67907 Rad Exam; Hip Unilat Completed 12/29/2013 67140 Rad Exam; Pelvis Completed 10/06/2013 52728 Chemotherpy Admin Subcutaneous/Im Non-Hormonal Completed Anti-Neoplastic 10/06/2013 71248 Admin Of Inj Completed 09/29/2013 96115 Rad Exam; Hip Unilat Comp Completed 09/29/2013 68057 Rad Exam; Pelvis Completed 08/25/2013 73825 Pulmonary Function><Bronchodilator Completed 04/14/2013 69066 Rad Exam; Hip Unilat Completed 04/14/2013 66603 Rad Exam; Pelvis Completed 02/17/2013 Mammogram Completed 02/17/2013 Bone Mineral Density Test Completed 01/06/2013 95849 Rad Exam; Pelvis Completed 01/06/2013 78706 Rad Exam; Hip Unilat Completed 10/14/2012 51910 Rad Exam; Hip Unilat Completed 10/14/2012 99365 Rad Exam; Wrist Limited, 2 Views Completed 10/14/2012 17610 Rad Exam; Pelvis Completed 09/12/2012 70906 Open TX Of Femoral FX,Promimal End,Neck Internal Completed Fixation 09/12/2012 56235 Open TX Of Femoral FX,Promimal End,Neck Internal Completed Fixation 09/12/2012 80252 Closed Treatment Distal Radial FX W/Manipulation Completed 03/20/2012 Colonoscopy Completed 01/25/2011 Bone Mineral Density Test Completed 01/25/2011 Mammogram Completed 02/04/2010 65772 Admin Of Inj Completed 09/29/2009 85555 Pulmonary Function><Bronchodilator Completed 06/23/2009 58570 EKG, Interpretation Only Completed 03/13/2008 90152 EKG, Interpretation Only Completed 03/04/2008 Colonoscopy Completed Encounters Type Date Location Provider CPT E/M Dx Office Visit 06/25/2017 [facility] Elsi MccarthyDeep [place], 98[address] J44.1 2:00p [facility] J96.21 J44.9 Office Visit 06/19/2017 11:21a [facility], [place] [address] J96.21 Hospitalists J44.1 E87.1 S22.080A Office Visit 06/18/2017 11:19a [facility], [place] [address] J96.21 Hospitalists J44.1 E87.1 S22.080A Office Visit 06/17/2017 11:18a [facility], [place] [address] J96.21 Hospitalists J44.1 E87.1 S22.080A Office Visit 06/16/2017 11:16a [facility], [place] [address] J96.21 Hospitalists J44.1 E87.1 S22.080A Office Visit 06/15/2017 11:15a [facility], [place] [address] J96.21 Hospitalists J44.1 E87.1 S22.080A Office Visit 06/02/2017 10:59a [facility], [place] [address] M48.54xA Hospitalists K59.03 E87.1 M81.0 Office Visit 06/01/2017 10:58a [facility], [place] [address] M48.54xA Hospitalists K59.03 E87.1 M81.0 Office Visit 05/31/2017 10:57a [facility],[place] [address] M48.54xA Hospitalists K59.03 E87.1 M81.0 Office Visit 05/30/2017 10:55a [facility] Jaylen Uribe, 17881 M48.54xA Assoc, Hospitalrigo Lanier,FACP K59.03 J44.9 M81.0 Office Visit 05/29/2017 10:53[place] [address] M48.54xA [facility], Hospitalists K59.03 J44.9 M81.0 Office Visit 05/16/2017 2:40p [facility] Sundar Mendiola, UNIQUE [address] M54.5 - [place] Office Visit 03/06/2017 1:20p [facility] Echo Rivero, N.P. 79191 J44.9 - [place] M81.0 I10 E78.00 R60.0 Z12.31 Office Visit 02/13/2017 1:00p [facility] [place] [address] J44.9 Services [facility] R09.02 Office Visit 01/24/2017 1:45p [facility] M.D. 90828 Z96.642 C.M.A. M21.752 Office Visit 08/29/2016 2:00p [facility] Huan Kim, 93951 I10 Zainab Lanier J44.9 M81.0 Office Visit 08/08/2016 1:00p [facility] [place] [address] J44.9 Services [facility] Office Visit 02/29/2016 2:00p [facility] Huan Kim, 33299 I10 Zainab Lanier J44.9 M81.0 E78.2 Z85.038 Z92.29 Office Visit 02/08/2016 1:00p [facility] [place] [address] J44.9 [facility] Office Visit 01/26/2016 1:30p [facility] M.D. 95253 Z96.642 C.M.A. Office Visit 09/28/2015 3:45p [facility] [place] [address] J44.9 [facility] J98.4 Office Visit 03/31/2015 1:00p [facility] [place] [address] J44.9 [facility] R09.02 E66.09 Office Visit 03/01/2015 2:00p [facility] - Alexi Kim, 82650 I10 Aleja Lanier J44.9 M81.0 Z12.31 E78.2 Office Visit 01/25/2015 10:45a [facility] M.D. 44492 Z96.642 C.M.A. M16.12 Z09 Office Visit 09/28/2014 1:00p [facility] [place] [address] 496 Services [facility] 799.02 278.00 Office Visit 06/29/2014 10:45a [facility] M.D. 73460 715.95 C.M.A. v54.81 V43.64 Office Visit 04/20/2014 4:00p [facility] Alexi Kim, 09094 724.2 - Aleja Lanier 733.01 V87.49 Office Visit 04/13/2014 11:00a [facility] [place] [address] 496 [facility] 518.89 799.02 Office Visit 03/04/2014 1:22p [facility] [place] [address] 496 [facility] Office Visit 02/26/2014 2:39p [facility] [place] [address] 496 [facility] 786.05 Office Visit 02/25/2014 2:31p [facility] [place] [address] 496 [facility] 786.05 Office Visit 02/19/2014 3:03p [facility], Elsi Burciaga, 72222 496 Hospitalists N.P. 401.9 278.00 V43.64 Office Visit 02/18/2014 3:03p [facility], Elsi Burciaga 23908 496 Hospitalists N.P. 401.9 278.00 V43.64 Office Visit 02/17/2014 3:02p [facility], Shanti Cody N.PDeep 89603 496 Hospitalists 401.9 278.00 V43.64 Office Visit 02/09/2014 10:15a [facility] [place] [address] 496 [facility] V72.83 Office Visit 02/04/2014 2:00p [facility] Alexi Kim, 56889 V72.81 - Aleja Lanier 715.95 401.1 496 272.2 733.01 V04.81 Office Visit 12/29/2013 10:00a [facility] M.D. 75572 715.95 C.M.A. Office Visit 09/29/2013 9:45a [facility] M.D. 42909 715.95 C.M.A. Office Visit 04/14/2013 9:15a [facility] M.D. 09152 820.8 C.M.A. Office Visit 02/24/2013 1:20p [facility] - Alexi Kim, 12536 496 Aleja Lanier 733.00 272.2 401.1 820.8 Office Visit 01/06/2013 9:00a [facility] M.D. 10322 813.42 C.M.A. 820.8 Office Visit 09/15/2012 1:32p [facility] Shanti Cody, N.P. 75308 492.8 Hospitalists 276.1 820.8 813.42 Office Visit 09/14/2012 1:31p [facility], Shanti Cody, N.P. 13997 492.8 Hospitalists 276.1 820.8 813.42 Office Visit 09/13/2012 1:31p [facility], Wanda Montaño, 56149 492.8 Hospitalists M.D. 820.8 813.42 Office Visit 09/12/2012 1:30p [facility], Elinor Muñoz, 00166 820.8 Hospitalists M.D. 813.42 492.8 276.1 Office Visit 09/12/2012 10:00a [facility] M.D. 88397 820.8 C.M.A. 813.44 Office Visit 02/23/2012 11:00a [facility] Alexi Kim, 42338 401.1 - Aleja Lanier 496 790.21 272.2 733.00 153.3 Office Visit 08/23/2011 11:00a [facility], 92878 401.1 - [place] Yolande 496 790.21 272.2 733.00 153.3 Office Visit 02/22/2011 10:40a DO Not Use [facility], 68858 401.1 [facility] M.D. 272.2 Office Visit 01/18/2011 2:40p DO Not Use [facility], 72330 401.1 [facility] M.D. 272.2 496 790.21 733.00 V76.10 153.8 V04.81 Office Visit 07/11/2010 4:00p DO Not Use [facility], 91098 496 [facility] M.D. 272.2 401.1 Office Visit 01/10/2010 11:20a DO Not Use [facility], [address] [facility] ([place], [place]D. V72.81 366.8 401.9 496 272.2 Office Visit 09/29/2009 11:40a DO Not Use [facility], 66036 496 [facility] M.D. 401.9 272.2 Office Visit 06/22/2009 11:40a DO Not Use [facility], 93325 466.0 [facility] M.D. Office Visit 06/08/2009 2:00p DO Not Use [facility], 87440 401.1 [facility] M.D. Office Visit 03/01/2009 2:30p DO Not Use [facility], 03633 782.3 [facility] M.D. 401.1 Office Visit 02/11/2009 2:30p DO Not Use [facility], 06024 401.1 [facility] M.D. 782.3 Office Visit 10/06/2008 2:15p [facility], 12290 724.5 [facility] M.DDeep Office Visit 07/29/2008 2:30p [facility], 71148 V72.81 [facility].D 401.9 250.00 272.0 733.00 153.3 Office Visit 01/29/2008 2:00p [facility], 74909 272.0 [facility] V04.81 Office Visit 01/21/2008 12:00p [facility], 26262 465.9 [facility] 07/24/2007 2:30p [facility], 75751 250.00 [facility] 733.00 401.1 V06.5 V03.82 Office Visit 01/22/2007 2:00p [facility], 41403 250.00 [facility] 272.0 401.1 V04.81 Plan of Care Future Appointment(s):09/25/2017 1:45 pm - Sabrina Chester MD at [facility]09/04/2017 4:00 pm - Echo Rivero NKyle at [facility]03/08/2018 2:20 pm - Echo Rivero N.P. at [facility]08/14/2017 1:30 pm - Sabrina Chester MD at [facility]06/25/2017 - Elsi Burciaga N.P.J44.1 Chronic obstructive pulmonary disease w (acute) exacerbationRecommendations: Continue Prednisone taper. Take 20mg oral for 1 week then decrease to 10mg oral daily Continue [id number] oral daily.J96.21 Acute and chronic respiratory failure with hypoxiaRecommendations:Continue oxygen 2L continuous.J44.9 Chronic obstructive pulmonary disease, unspecifiedFollow up:3 mo f/u MD/ NPRecommendations:Continue duonebs 3x daily and ventolin as needed. May need nebulizer at discharge.
[2017-07-21] MEDS: Albuterol 2.5 MG/3 ML NEB.SOL* (0.083%) INH SCH ×4 (00:50→03:25)
[2017-07-21] MEDS ORDERED: Albuterol 2.5 MG/3 ML NEB.SOL* (0.083%) ONE (00:52)
[2017-07-21 01:28] LABS: ABS Basophils 0.1 10^3/ul (0-0.2); ABS Eosinophils 0.2 10^3/ul (0-0.6); ABS Lymphocytes 0.8 10^3/ul (1.0-4.8); ABS Monocytes 1.5 10^3/ul (0-0.8); ABS Neutrophils 4.2 10^3/ul (1.5-7.7); ABS Nucleated RBC 0 10^3/ul; Eosinophil % 3.5 % (0-6); Hematocrit 39 % (35-47); Hemoglobin 13.2 g/dl (12.0-16.0); Lymphocyte % 11.3 % (25-47); Mean Corpuscular HGB Conc 34 g/dl (31-36); Mean Corpuscular Hemoglobin 32 pg (27-31); Mean Corpuscular Volume 93 fL (80-97); Mean Platelet Volume 8.2 um3 (7.4-10.4); Nucleated Red Blood Cells % 0.1; Platelet Count 258 10^3/ul (150-450); Red Blood Count 4.16 10^6/ul (4.0-5.4); Red Cell Distribution Width 13 % (10.5-15); White Blood Count 6.7 10^3/ul (3.5-10.8)
[2017-07-21 01:39] LABS: INR 0.95 (0.77-1.02)
[2017-07-21 01:42] LABS: EGFR Non-African American 64.9 (>60)
[2017-07-21] MEDS ORDERED: Albuterol 2.5 MG/3 ML NEB.SOL* (0.083%) INH PRN (03:26)
[2017-07-21] MEDS ORDERED: Acetaminophen TAB* 325 MG PO PRN (03:27)
[2017-07-21] MEDS ORDERED: Methocarbamol TAB* 500 MG PO PRN (03:27)
[2017-07-21] MEDS ORDERED: Lidocaine PATCH 5%* 1 PATCH TRANSDERM PRN (03:27)
--- NOTE | 2017-07-21 03:37 | ED ---
Arnaldo Gant Tecjoon, scribed for Rob Panda MD on 07/21/17 at 0050 . Shortness of Breath - HPI Summary HPI Summary: This patient is a 77 year old female BIBA to [facility] with a chief complaint of SOB for approx. 1 hour. The pain is rated 5/10 in severity. Symptoms aggravated by nothing. Symptoms alleviated by nothing. Patient denies fever, coughing. Patient normally takes 2L of oxygen at home. - History of Current Complaint Time Seen by Provider: 07/21/17 00:41 Hx Obtained From: Patient Onset/Duration: Still Present Timing: Constant Current Severity: Moderate Dyspnea At: Rest Aggrevating Factors: Nothing Alleviating Factors: Nothing Associated Signs & Symptoms: Negative - fever, coughing - Allergy/Home Medications Allergies/Adverse Reactions: Allergies Allergy/AdvReac Type Severity Reaction Status Date / Time Adhesive Tape Allergy REDDENED Verified 07/21/17 01:40 SKIN codeine Allergy Hives Verified 07/21/17 01:40 iodine Allergy Rash Verified 07/21/17 01:40 Penicillins Allergy Hives Verified 07/21/17 01:40 pineapple Allergy MOUTH SORE Verified 07/21/17 01:40 tiotropium Allergy HOARSENESS, Verified 07/21/17 01:40 [From Spiriva with TICKLE IN HandiHaler] THROAT Raisins Allergy GI Upset Uncoded 07/21/17 01:40 Home Medications: Home Medications Furosemide TAB* [Lasix TAB*] 20 mg PO EVERY OTHER DAY 07/21/17 [History Confirmed 07/21/17] Lidocaine PATCH 5%* [Lidoderm 5% Patch*] 1 patch TRANSDERM DAILY PRN 07/21/17 [ History Confirmed 07/21/17] Polyethylene Glycol 3350* [Miralax*] 17 gm PO DAILY 07/21/17 [History Confirmed 07/21/17] Senna TAB* [Senokot TAB*] 1 tab PO DAILY 07/21/17 [History Confirmed 07/21/17] fentaNYL PATCH 50 MCG/HR* [Duragesic PATCH 50 Mcg/Hr*] 50 mcg TRANSDERM Q3D 10/31 [History Confirmed 07/21/17] PMH/Surg Hx/FS Hx/Imm Hx Previously Healthy: No Endocrine/Hematology History: Denies: Hx Anticoagulant Therapy, Hx Diabetes, Hx Thyroid Disease Cardiovascular History: Reports: Hx Aneurysm - AAA diagnosed 05/28/17, Hx Hypercholesterolemia, Hx Hypertension, Other Cardiovascular Problems/Disorders Respiratory History: Reports: Hx Asthma, Hx Chronic Obstructive Pulmonary Disease (COPD) Denies: Hx Sleep Apnea GI History: Reports: Other GI Disorders - Colon CA, current constipation Denies: Hx Ulcer History: Reports: Other Problems/Disorders - Bladder smaller from colon Denies: Hx Dialysis, Hx Renal Disease Musculoskeletal History: Reports: Hx Arthritis, Hx Back Problems, Hx Orthopedic Injury, Hx Osteoporosis, Hx Tendonitis Denies: Hx Bursitis, Hx Scoliosis Sensory History: Reports: Hx Cataracts, Hx Contacts or Glasses Denies: Hx Glaucoma, Hx Hearing Aid, Other Sensory Impairments Opthamlomology History: Reports: Hx Cataracts, Hx Contacts or Glasses Denies: Hx Glaucoma, Other Sensory Impairments Neurological History: Reports: Hx Migraine - childhood migraines resolved at 22 years old, Other Neuro Impairments/Disorders - LEFT HIP SX X 2 MO AGO Denies: Hx Headaches, Hx Nerve Disease - Cancer History Cancer Type, Location and Year: COLON 2007, treated with Chemo Hx Chemotherapy: Yes Hx Radiation Therapy: No - Surgical History Surgery Procedure, Year, and Place: Empyema removal 1983, Broken elbow left repair ORIF (plate) Apr 1999 and later hardware removal Colon cancer dx 2007, colon resection. Hernia repair 2009 Partial L Hip Replacement September 2012 Hx Anesthesia Reactions: No Infectious Disease History: Denies: Hx Hepatitis, Hx Human Immunodeficiency Virus (HIV), History Other Infectious Disease, Traveled Outside the [place] in Last 30 Days - Family History Known Family History: Positive: Cardiac Disease, Respiratory Disease, Other - Aortic aneurysm - Social History Alcohol Use: Rare Alcohol Amount: 1 GLASS OF WINE DAILY Hx Substance Use: No Substance Use Type: Reports: None Hx Tobacco Use: Yes Smoking Status (MU): Former Smoker Amount Used/How Often: 1 1/2 PPD X 30 YEARS Have You Smoked in the Last Year: No Review of Systems Negative: Fever Positive: Shortness Of Breath. Negative: Cough All Other Systems Reviewed And Are Negative: Yes Physical Exam - Summary Physical Exam Summary: VITAL SIGNS: Reviewed. GENERAL: Patient is a well-developed and nourished female who is lying comfortable in the stretcher. Patient is not in any acute respiratory distress. HEAD AND FACE: No signs of trauma. No ecchymosis, hematomas or skull depressions. No sinus tenderness. EYES: PERRLA, EOMI x 2, No injected conjunctiva, no nystagmus. EARS: Hearing grossly intact. Ear canals and tympanic membranes are within normal limits. MOUTH: Oropharynx within normal limits. NECK: Supple, trachea is midline, no adenopathy, no JVD, no carotid bruit, no c- spine tenderness, neck with full ROM. CHEST: Symmetric, no tenderness at palpation LUNGS: Decreased breath sounds bilaterally. Expiratory wheezes bilaterally CVS: Regular rate and rhythm, S1 and S2 present, no murmurs or gallops appreciated. ABDOMEN: Soft, non-tender. No signs of distention. No rebound no guarding, and no masses palpated. Bowel sounds are normal. EXTREMITIES: FROM in all major joints, no edema, no cyanosis or clubbing. NEURO: Alert and oriented x 3. No acute neurological deficits. Speech is normal and follows commands. SKIN: Dry and warm Triage Information Reviewed: Yes Vital Signs Reviewed: Yes Diagnostics - Laboratory Result Diagrams: 07/21/17 01:10 07/21/17 01:10 Lab Statement: Any lab studies that have been ordered have been reviewed, and results considered in the medical decision making process. - Radiology CXR Xray Interpretation: No Acute Changes - CXR reveals, per radiologist, IMPRESSION : NO ACUTE PROCESS. ED physician has reviewed this radiology report. Radiology Interpretation Completed By: Radiologist - EKG 025 Cardiac Rate: NL EKG Rhythm: Sinus Rhythm - 93 BPM EKG Interpretation: NSR (93 BPM), nonspecific t-wave changes in the inferior leads Course/Dx - Course Course Of Treatment: This patient is a 77 year old female BIBA to [facility] with a chief complaint of SOB for approx. 1 hour. The pain is rated 5/10 in severity. Symptoms aggravated by nothing. Symptoms alleviated by nothing. Patient denies fever, coughing. CXR reveals, per radiologist, IMPRESSION: NO ACUTE PROCESS. ED physician has reviewed this radiology report. An EKG, taken 255, reveals NSR ( 93 BPM), nonspecific t-wave changes in the inferior leads. Bloodwork Obtained. In the ED course the patient was given Magnesium Sulfate. We discussed patient care with Dr. Uribe (Hospitalist) and they agreed to admit the patient. Patient will be admitted with a dx of COPD. The patient is agreeable with this plan. - Diagnoses Provider Diagnoses: COPD (chronic obstructive pulmonary disease) - Physician Notifications Discussed Care of Patient With: Jaylen Uribe - Hospitalist Time Discussed With Above Provider: 02:27 - We discussed patient care with Dr. Uribe (Hospitalist) and they agreed to admit the patient Instructed by Provider To: Admit As Inpatient Discharge - Sign-Out/Discharge Documenting (check all that apply): Discharge - admitted - Discharge Plan Condition: Stable Disposition: ADMITTED TO [facility] Referrals: Echo Rivero NP [Primary Care Provider] - The documentation as recorded by the Arnaldo veliz Tecjoon accurately reflects the service I personally performed and the decisions made by , Rob Panda MD.
[2017-07-21] MEDS ORDERED: cefTRIAXone(*) 1 GM in NS 0.9% 50 ML* 50 ML IVPB SCH (04:00)
[2017-07-21] MEDS: Enoxaparin(*) 40 MG/0.4 ML SYR SUBCUT SCH (05:00)
[2017-07-21] MEDS: methylPREDNISolone SOD 40 MG* 1 ML VIAL IV SCH ×2 (05:01→16:50)
[2017-07-21] MEDS: cefTRIAXone 1000 MG SYRINGE IVPB Q24H (in NaCl) IVPB SCH ×2 (05:02)
[2017-07-21] MEDS: fentaNYL PATCH 50 MCG/HR TRANSDERM SCH (05:13)
[2017-07-21] MEDS: Docusate CAP* 100 MG PO PRN (05:39)
[2017-07-21] MEDS: Azithromycin IV(*) 500 MG in NS 0.9% 250 ML* 250 ML IVPB SCH (06:27)
--- NOTE | 2017-07-21 07:36 | RAD ---
INDICATION: Shortness of breath. COMPARISON: Comparison is made with a prior study from June 15, 2017. TECHNIQUE: A portable view of the chest was obtained. FINDINGS: The heart appears mildly enlarged and unchanged from the prior exam. The lungs are underinflated. There are small infiltrates at both lung bases suggestive of atelectasis less likely pneumonia. IMPRESSION: LOW LUNG VOLUMES SMALL BIBASILAR INFILTRATES SUGGESTIVE OF ATELECTASIS LESS LIKELY PNEUMONIA, UNCHANGED.
[2017-07-21] MEDS: Mometasone/Formoter 200/5 MDI INH SCH ×2 (07:55→19:23)
[2017-07-21] MEDS: Albuterol/Ipratropium NEB.SOL* Albuterol 2.5 MG/Ipratropium 0.5 MG 3 ML INH PRN ×3 (07:59→22:03)
[2017-07-21] MEDS: Polyethylene Glycol 3350* 17 GM PACKET PO SCH (08:33)
[2017-07-21] MEDS: Senna TAB PO SCH (08:33)
[2017-07-21] MEDS: Atorvastatin* 10 MG TAB PO SCH (08:34)
[2017-07-21] MEDS: Pregabalin CAP(*) 25 MG PO SCH (08:36)
[2017-07-21] MEDS: Losartan TAB* 25 MG PO SCH (08:37)
[2017-07-21] MEDS: Multivitamins/Minerals TAB PO SCH (08:37)
[2017-07-21] MEDS: Vitamin E CAP* 400 UNIT PO SCH (08:37)
[2017-07-21] MEDS: Calcium/Vitamin D TAB 250/125* TAB PO SCH (08:37)
[2017-07-21] MEDS: Furosemide TAB* 20 MG PO SCH (08:37)
[2017-07-21] MEDS: Ascorbic Acid TAB* 500 MG PO SCH (08:37)
[2017-07-21] MEDS: Vitamin B Complex TAB PO SCH (08:37)
[2017-07-21] MEDS: fentaNYL Patch Check Q Shift 1 NOTE SCH ×2 (08:42→20:50)
--- NOTE | 2017-07-21 11:11 | PN ---
Subjective Date of Service: 07/21/17 Interval History: Patient was seen and examined at bedside. Reports feeling better this morning. Her breathing has improved overnight. Denies dyspnea at rest, orthopnea, chest pain or SOB. Reports being recently treated for bronchitis at home, but continued to have some residual cough and SOB. Had her Flu shot this year, last pneumovax about 2 years ago. Family History: Unchanged from Admission Social History: Unchanged from Admission Past Medical History: Unchanged from Admission Objective Active Medications: Acetaminophen (Tylenol Tab*) 650 mg PO Q4H PRN PRN Reason: FEVER/PAIN Albuterol (Ventolin 2.5 Mg/3 Ml Neb.Lisandra*) 2.5 mg INH [id number] AWAKE PRN PRN Reason: SOB/WHEEZING Albuterol/Ipratropium (Duoneb (Albuterol 2.5 Mg/Ipratropium 0.5 Mg)) 1 neb INH QID PRN PRN Reason: SHORTNESS OF BREATH Last Admin: 07/21/17 07:59 Dose: 1 neb Ascorbic Acid (Vitamin C Tab*) 1,000 mg PO DAILY [facility] Last Admin: 07/21/17 08:37 Dose: 1,000 mg Atorvastatin Calcium (Lipitor*) 10 mg PO DAILY [facility] Last Admin: 07/21/17 08:34 Dose: Not Given Calcium/Vitamin D (Oscal D Tab 250/125*) 1 tab PO DAILY [facility] Last Admin: 07/21/17 08:37 Dose: 1 tab Docusate Sodium (Colace Cap*) 100 mg PO BID PRN PRN Reason: CONSTIPATION Last Admin: 07/21/17 05:39 Dose: 100 mg Enoxaparin Sodium (Lovenox(*)) 40 mg SUBCUT Q24H [facility] Last Admin: 07/21/17 05:00 Dose: 40 mg Fentanyl (Duragesic Patch 50 Mcg/Hr*) 50 mcg TRANSDERM Q3D [facility] Last Admin: 07/21/17 05:13 Dose: 50 mcg Furosemide (Lasix Tab*) 20 mg PO EVERY OTHER DAY [facility] Last Admin: 07/21/17 08:37 Dose: 20 mg Azithromycin 500 mg/ Sodium (Chloride) 250 mls @ 250 mls/hr IVPB Q24H [facility] Last Admin: 07/21/17 06:27 Dose: 250 mls/hr Ceftriaxone Sodium 1,000 mg/ (Sodium Chloride) 10 mls @ 40 mls/hr IVPB Q24H [facility] Last Admin: 07/21/17 05:02 Dose: 40 mls/hr Lidocaine (Lidoderm 5% Patch*) 1 patch TRANSDERM DAILY PRN PRN Reason: PAIN Losartan Potassium (Cozaar Tab*) 100 mg PO DAILY [facility] Last Admin: 07/21/17 08:37 Dose: 100 mg Methocarbamol (Robaxin Tab*) 500 mg PO TID PRN PRN Reason: SPASMS Methylprednisolone Sodium Succinate (Solu-Medrol 40 Mg) 60 mg IV Q12H [facility] Last Admin: 07/21/17 05:01 Dose: 60 mg Mometasone Furoate/Formoterol Fumar (Dulera 200/5 Mdi*) 2 puff INH BID [facility] PRN Reason: Protocol Last Admin: 07/21/17 07:55 Dose: 2 puff Multivitamins/Minerals (Theragran/Minerals Tab*) 1 tab PO EVERY OTHER DAY [facility] Last Admin: 07/21/17 08:37 Dose: 1 tab Pharmacy Profile Note (Fentanyl Patch Check Q Shift) 0 note N/A 0700,1900 [facility] Last Admin: 07/21/17 08:42 Dose: 1 note Pharmacy Profile Note (Lidocaine Patch Remove*) 1 note PATCH OFF 2100 PRN PRN Reason: IF APPLIED DURING THE DAY Polyethylene Glycol/Electrolytes (Miralax*) 17 gm PO DAILY [facility] Last Admin: 07/21/17 08:33 Dose: Not Given Pregabalin (Lyrica Cap(*)) 25 mg PO QAM [facility] Last Admin: 07/21/17 08:36 Dose: 25 mg Pregabalin (Lyrica Cap(*)) 50 mg PO BEDTIME [facility] Senna (Senokot Tab*) 1 tab PO DAILY [facility] Last Admin: 07/21/17 08:33 Dose: Not Given Tramadol HCl (Ultram*) 50 mg PO Q6H PRN PRN Reason: PAIN Vitamin B Complex/Vitamin E (B Complex-50*) 1 tab PO DAILY [facility] Last Admin: 07/21/17 08:37 Dose: 1 tab Vitamin E (Vitamin E Cap*) 400 unit PO DAILY [facility] Last Admin: 07/21/17 08:37 Dose: 400 unit Vital Signs - 8 hr 07/21/17 07/21/17 07/21/17 03:30 04:00 04:06 Temperature 99.1 F Pulse Rate 94 98 110 Respiratory 10 17 15 Rate Blood Pressure 150/65 142/66 (mmHg) O2 Sat by Pulse 96 94 93 Oximetry 07/21/17 07/21/17 07/21/17 04:30 04:43 05:13 Temperature 99.0 F Pulse Rate 100 99 Respiratory 16 17 16 Rate Blood Pressure 149/68 149/68 (mmHg) O2 Sat by Pulse 91 91 Oximetry 07/21/17 07/21/17 08:02 08:36 Temperature Pulse Rate 86 Respiratory 17 20 Rate Blood Pressure (mmHg) O2 Sat by Pulse 92 Oximetry Oxygen Devices in Use Now: Nasal Cannula Appearance: Appears comfortable, sitting up in her bed, breathing with ease, in NAD. Eyes: No Scleral Icterus, PERRLA Ears/Nose/Mouth/Throat: Mucous Membranes Moist Neck: NL Appearance and Movements; NL JVP, Trachea Midline Respiratory: Symmetrical Chest Expansion and Respiratory Effort, - - Decreased breath sound at the bases. No wheezes or rales, Cardiovascular: NL Sounds; No Murmurs; No JVD, RRR Abdominal: NL Sounds; No Tenderness; No Distention Extremities: - - 2+ bilateral lower extremities edema, better per patient. No venous stasis ulcers or skin breakdown noted. Skin: No Rash or Ulcers Neurological: Alert and Oriented x 3 Nutrition: Taking PO's Result Diagrams: 07/21/17 01:10 07/21/17 01:10 Diagnostic Imaging: Patient Name: FRANCISCA ARGUELLES Medical Record#: [id number] Ordering Physician: Rob Panda MD Acct.#: [id number] : 1940 Age: 77 Sex: F Location: [address] [place] [address]/TELEMETRY Exam Date: 07/21/17 020 ADM Status: ADM Sheela Order Information: CHEST AP PORTABLE Accession Number: [id number] CPT: 04972 INDICATION: Shortness of breath. IMPRESSION: LOW LUNG VOLUMES SMALL BIBASILAR INFILTRATES SUGGESTIVE OF ATELECTASIS LESS LIKELY PNEUMONIA, UNCHANGED. EKG Data: EKG INTERPRETATION ECG Report Patient Name FRANCISCA ARGUELLES Birthdate 1940 Sex F Order Number [id number] Date of ECG 07/21/2017 02:56:20 Interpretation Sinus rhythm.normal P axis, V-rate 60- 99 Abnormal R-wave progression, late transition.QRS area<0 in V5/V6 Left ventricular hypertrophy.multiple LVH criteria - ABNORMAL ECG - ECG NEEDS E-SIGNING Please go to [facility] website to view the EKG image Assess/Plan/Problems-Billing Assessment: A 77 y/o female with hx COPD, hypertension, hyperlipidemia and morbid obesity, who presented to ED with worsening SOB, found to have bilateral basilar pneumonia on CXR, as well as COPD exacerbations. - Patient Problems (1) Pneumonia Current Visit: Yes Status: Acute Comment: IV Azithromycin and Rocephin per protocol Supplemental oxygen Solumedrol Already noticed a benefit from inpatient treatment (2) Abdominal aortic aneurysm (AAA) 30 to 34 mm in diameter Current Visit: Yes Comment: 3.[address] outpatient surveillance (3) COPD exacerbation Current Visit: Yes Comment: steroids/nebs as above; likely viral URI induced (4) Compression fracture Current Visit: No Comment: continue lidocaine patch continue tramadol,lyrica and bowel regimen. Pain under control as present (5) Hyponatremia Current Visit: Yes Comment: Continue Lasix, will try fluid restriction (6) Colon cancer Comment: Dr. Cm follows as outpatient. s/p remote colectomy (7) HTN (hypertension) Current Visit: No (8) Obesity (BMI 30-39.9) Current Visit: No Status: Chronic Code(s): E66.9 - OBESITY, UNSPECIFIED SNOMED Code(s): 680332208 Comment: supportive care (9) Full code status Current Visit: Yes Status: Acute Code(s): Z78.9 - OTHER SPECIFIED HEALTH STATUS SNOMED Code(s): 849813946 (10) DVT prophylaxis Current Visit: Yes Status: Acute Code(s): WOZ7812 - SNOMED Code(s): 717676900 Comment: on Lovenox Status and Disposition: Continue inpatient stay for treatment of CAP and COPD exacerbations. Repeat labs and CXR tomorrow.
--- NOTE | 2017-07-21 15:44 | HP ---
CC: Echo Rivero NP ADMISSION HISTORY AND PHYSICAL: DATE OF ADMISSION: 07/21/17 CHIEF COMPLAINT: Dyspnea. HISTORY OF PRESENT ILLNESS: Ms. Coburn is a 77-year-old woman with severe COPD, who developed dyspnea above baseline yesterday during the day. Throughout the day, she spent more time at bed, had dyspnea on exertion just getting to the bathroom, so she has to use her commode. When the dyspnea worsened further, the patient asked her family to bring her to the emergency room by ambulance. The patient denies any chest pain or palpitations. She denies any fever. She says her cough is dry and nonproductive. The patient was admitted to this hospital on 06/15/17 with shortness of breath and concern of CHF. However, the echo showed ejection fraction of 50% to 55% and she was discharged with the diagnosis of COPD exacerbation. The patient also had T12 compression fracture back on 05/30/17. Since then, she has had increasing trouble getting around and breathing. She, in fact, has been in a [facility] for [facility] since May through June and was discharged back to the [facility] which she left here on 06/19/17. Later in June, she was discharged to home from [facility], has been home for about 2 weeks. 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 PAST SURGICAL HISTORY: Includes colectomy and left total knee replacement. MEDICATIONS: On admission: 1. Tylenol 650 mg q.4 hours as needed. 2. Albuterol inhaler 2 puffs q.4 hours as needed. 3. Albuterol and ipratropium nebulizer four times a day. 4. Vitamin C 1000 mg daily. 5. Budesonide/formoterol 160/4.5 two inhalations b.i.d. 6. Calcium with vitamin D 1 tab p.o. q. day. 7. Colace 100 mg p.o. q. day. 8. Fentanyl patch 2 mcg topically q.3 days. 9. Furosemide 20 mg p.o. every other day. 10. Irbesartan 300 mg p.o. q. day. 11. Lidocaine patch topically q. day. 12. Robaxin 500 mg p.o. t.i.d. 13. Multivitamin 1 tab p.o. q. day. 14. MiraLAX 17 g with water daily. 15. Gabapentin 25 mg p.o. q.a.m. and 50 mg p.o. q.p.m. 16. Senna 1 tab p.o. q. day. 17. Simvastatin 20 mg p.o. q.h.s. 18. Tramadol 50 mg p.o. q.6 hours p.r.n. pain. 19. Multivitamin 1 tab daily. 20. Vitamin B complex 1 time p.o. q. day. 21. Vitamin E 400 units p.o. q. day. ALLERGIES: ADHESIVE TAPE, CODEINE, PENICILLIN, SPIRIVA, IODINE. FAMILY HISTORY: Notable for father of lung and liver cancer. Mother of natural causes. 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 She is . She has 2 children. Her daughter, Lily, is her healthcare proxy, who accompanies her today. She quit tobacco in 2003. She drinks alcohol rarely. No recreational drugs. REVIEW OF SYSTEMS: The patient denies any fevers or anorexia. The patient denies any chest pain. The patient had increasing edema this week and started taking her furosemide every day for few days. The patient denies any nausea, vomiting, or diarrhea. Remainder of 14-point review of systems is negative other than mentioned in the HPI. PHYSICAL EXAMINATION GENERAL: She is an elderly woman, in no acute distress. VITAL SIGNS: Temperature is 37.1, pulse is 100 and down to 92, respirations are 16, blood pressure is 155/85, O2 sat is 93% to 98% on 2 L. HEENT: Head is normocephalic, atraumatic. Sclerae anicteric. Pupils are equal , round, reactive to light and accommodation. Oropharynx is moist. No lesions. NECK: No JVD. No carotid bruits. No thyromegaly. LUNGS: Have diffuse wheezing. No rales. HEART: Tachycardic and regular. No murmurs. ABDOMEN: Soft and nontender. Positive bowel sounds. No hepatosplenomegaly. EXTREMITIES: 2+ edema in bilateral lower extremities. NEUROLOGIC: Cranial nerves II through XII are intact. Motor strength is 5/5 throughout. Deep tendon reflexes are symmetric. PSYCHIATRIC: The patient is alert and oriented x3. She does appear to be anxious. SKIN: Exam is notable for some dry scaling on both legs, but no erythema or open areas. DIAGNOSTIC STUDIES/LAB DATA: Sodium 133, potassium 4.5, chloride 95, bicarb 32 , BUN 16, creatinine 0.5, glucose was 107, calcium 9.5, albumin 3.7. AST 20, ALT 13, bilirubin 0.6. CRP is 45.5. BNP is 87. Lactic acid 1.2. INR 0.95, PTT 37.8. White count is 6.7, hemoglobin 13.2, hematocrit 39%, platelets are 258. Chest x-ray was negative except for scarring consistent with COPD. ASSESSMENT AND PLAN: A 77-year-old woman with chronic obstructive pulmonary disease exacerbation. The patient will be admitted to the medical floor and treated with intravenous steroids and nebulizers. She will also be given ceftriaxone and azithromycin for her potential pneumonia that was not seen on chest x-ray. She appears to also have element of anxiety causing this dyspnea and need for admission. We could offer her some Ativan to take as needed when she feels mildly short of breath. It is not clear that she has severe problem with COPD exacerbation at this point as she lacks any purulent sputum or hypoxia. For hypertension, we will continue her on irbesartan and daily furosemide. The patient is full code. I discussed the concept of futility with her and her daughter, but they stated they would want her to be full code and the daughter would have to make a decision, healthcare proxy to withdraw care at some point, as she was intubated for a long period of time. DVT prophylaxis. She will have subcutaneous Lovenox. [id number]/[facility] #: [id number] [facility] HOSPITALJared
[2017-07-21] MEDS: Pregabalin CAP(*) 50 MG PO SCH (20:52)
[2017-07-21] MEDS ORDERED: Lidocaine Patch REMOVE* 1 NOTE MISC PATCH OFF PRN (21:00)
[2017-07-22] MEDS: Azithromycin IV(*) 500 MG in NS 0.9% 250 ML* 250 ML IVPB SCH (04:06)
[2017-07-22] MEDS: methylPREDNISolone SOD 40 MG* 1 ML VIAL IV SCH ×2 (04:09→15:05)
[2017-07-22] MEDS: Enoxaparin(*) 40 MG/0.4 ML SYR SUBCUT SCH (04:15)
[2017-07-22] MEDS: Albuterol/Ipratropium NEB.SOL* Albuterol 2.5 MG/Ipratropium 0.5 MG 3 ML INH PRN ×2 (04:37→20:03)
[2017-07-22] MEDS: cefTRIAXone 1000 MG SYRINGE IVPB Q24H (in NaCl) IVPB SCH ×2 (05:16)
[2017-07-22] MEDS: fentaNYL Patch Check Q Shift 1 NOTE SCH ×2 (06:55→18:36)
[2017-07-22] MEDS: LORazepam TAB(*) 0.5 MG PO PRN ×2 (06:55→21:52)
[2017-07-22 06:58] LABS: ABS Basophils 0 10^3/ul (0-0.2); ABS Eosinophils 0 10^3/ul (0-0.6); ABS Lymphocytes 0.4 10^3/ul (1.0-4.8); ABS Monocytes 0.7 10^3/ul (0-0.8); ABS Neutrophils 5.3 10^3/ul (1.5-7.7); ABS Nucleated RBC 0 10^3/ul; Eosinophil % 0 % (0-6); Hematocrit 38 % (35-47); Hemoglobin 13.4 g/dl (12.0-16.0); Mean Corpuscular HGB Conc 35 g/dl (31-36); Mean Corpuscular Hemoglobin 32 pg (27-31); Mean Corpuscular Volume 92 fL (80-97); Mean Platelet Volume 8.1 um3 (7.4-10.4); Nucleated Red Blood Cells % 0.1; Platelet Count 311 10^3/ul (150-450); Red Blood Count 4.17 10^6/ul (4.0-5.4); Red Cell Distribution Width 13 % (10.5-15); White Blood Count 6.4 10^3/ul (3.5-10.8)
[2017-07-22 07:00] LABS: EGFR Non-African American 71.6 (>60)
[2017-07-22] MEDS: Mometasone/Formoter 200/5 MDI INH SCH ×2 (07:21→20:06)
[2017-07-22] MEDS: Losartan TAB* 25 MG PO SCH (08:40)
[2017-07-22] MEDS: Pregabalin CAP(*) 25 MG PO SCH (08:40)
[2017-07-22] MEDS: Senna TAB PO SCH (08:41)
[2017-07-22] MEDS: Calcium/Vitamin D TAB 250/125* TAB PO SCH (08:41)
[2017-07-22] MEDS: Atorvastatin* 10 MG TAB PO SCH (08:41)
[2017-07-22] MEDS: Ascorbic Acid TAB* 500 MG PO SCH (08:41)
[2017-07-22] MEDS: Polyethylene Glycol 3350* 17 GM PACKET PO SCH (08:41)
[2017-07-22] MEDS: Vitamin B Complex TAB PO SCH (08:41)
--- NOTE | 2017-07-22 08:43 | RAD ---
INDICATION: Follow-up bibasilar pneumonia COMPARISON: Most recent comparison chest x-ray is dated July 21, 2017 TECHNIQUE: Single AP portable view of the chest was obtained. FINDINGS: Image quality is compromised due to the relative inferiority of a portable chest x-ray. Similar the prior chest x-ray there is a mild degree of cardiomegaly as well as curvature of the thoracic aorta. There is interval worsening of density obscuring the bilateral lung bases. The pulmonary vasculature appears mildly engorged and indistinct similar to the previous chest x-ray. Visualized bones are normal for the patient's age. IMPRESSION: Radiographic findings are most consistent with cardiogenic pulmonary edema. Worsening densities since the July 21, 2017 chest x-ray at the bilateral lung bases could be atelectasis or pleural effusions.
[2017-07-22] MEDS: Vitamin E CAP* 400 UNIT PO SCH (09:14)
[2017-07-22] MEDS ORDERED: Furosemide IV* 10 MG/ML 2 ML VIAL (20 MG) IV ONE (09:36)
--- NOTE | 2017-07-22 11:41 | PN ---
Subjective Date of Service: 07/22/17 Interval History: Patient seen and examined at bedside. Had some "anxiety attacks" last night and this AM, relived with Ativan. Breathing is generally better, denies wheezing or SOB. No fever or chills. OOB to chair yesterday. Otherwise, no new c/o. Family History: Unchanged from Admission Social History: Unchanged from Admission Past Medical History: Unchanged from Admission Objective Active Medications: Acetaminophen (Tylenol Tab*) 650 mg PO Q4H PRN PRN Reason: FEVER/PAIN Albuterol (Ventolin 2.5 Mg/3 Ml Neb.Lisandra*) 2.5 mg INH [id number] AWAKE PRN PRN Reason: SOB/WHEEZING Albuterol/Ipratropium (Duoneb (Albuterol 2.5 Mg/Ipratropium 0.5 Mg)) 1 neb INH QID PRN PRN Reason: SHORTNESS OF BREATH Last Admin: 07/22/17 04:37 Dose: 1 neb Ascorbic Acid (Vitamin C Tab*) 1,000 mg PO DAILY [facility] Last Admin: 07/22/17 08:41 Dose: 1,000 mg Atorvastatin Calcium (Lipitor*) 10 mg PO DAILY [facility] Last Admin: 07/22/17 08:41 Dose: Not Given Calcium/Vitamin D (Oscal D Tab 250/125*) 1 tab PO DAILY [facility] Last Admin: 07/22/17 08:41 Dose: 1 tab Docusate Sodium (Colace Cap*) 100 mg PO BID PRN PRN Reason: CONSTIPATION Last Admin: 07/21/17 05:39 Dose: 100 mg Enoxaparin Sodium (Lovenox(*)) 40 mg SUBCUT Q24H [facility] Last Admin: 07/22/17 04:15 Dose: 40 mg Fentanyl (Duragesic Patch 50 Mcg/Hr*) 50 mcg TRANSDERM Q3D [facility] Last Admin: 07/21/17 05:13 Dose: 50 mcg Furosemide (Lasix Tab*) 20 mg PO EVERY OTHER DAY [facility] Last Admin: 07/21/17 08:37 Dose: 20 mg Azithromycin 500 mg/ Sodium (Chloride) 250 mls @ 250 mls/hr IVPB Q24H [facility] Last Admin: 07/22/17 04:06 Dose: 250 mls/hr Ceftriaxone Sodium 1,000 mg/ (Sodium Chloride) 10 mls @ 40 mls/hr IVPB Q24H [facility] Last Admin: 07/22/17 05:16 Dose: 40 mls/hr Lidocaine (Lidoderm 5% Patch*) 1 patch TRANSDERM DAILY PRN PRN Reason: PAIN Lorazepam (Ativan Tab(*)) 0.5 mg PO Q6H PRN PRN Reason: ANXIETY Last Admin: 07/22/17 06:55 Dose: 0.5 mg Losartan Potassium (Cozaar Tab*) 100 mg PO DAILY [facility] Last Admin: 07/22/17 08:40 Dose: 100 mg Methocarbamol (Robaxin Tab*) 500 mg PO TID PRN PRN Reason: SPASMS Methylprednisolone Sodium Succinate (Solu-Medrol 40 Mg) 60 mg IV Q12H [facility] Last Admin: 07/22/17 04:09 Dose: 60 mg Mometasone Furoate/Formoterol Fumar (Dulera 200/5 Mdi*) 2 puff INH BID [facility] PRN Reason: Protocol Last Admin: 07/22/17 07:21 Dose: 2 puff Multivitamins/Minerals (Theragran/Minerals Tab*) 1 tab PO EVERY OTHER DAY [facility] Last Admin: 07/21/17 08:37 Dose: 1 tab Pharmacy Profile Note (Fentanyl Patch Check Q Shift) 0 note N/A 0700,1900 [facility] Last Admin: 07/22/17 06:55 Dose: 1 note Pharmacy Profile Note (Lidocaine Patch Remove*) 1 note PATCH OFF 2100 PRN PRN Reason: IF APPLIED DURING THE DAY Polyethylene Glycol/Electrolytes (Miralax*) 17 gm PO DAILY [facility] Last Admin: 07/22/17 08:41 Dose: Not Given Pregabalin (Lyrica Cap(*)) 25 mg PO QAM [facility] Last Admin: 07/22/17 08:40 Dose: 25 mg Pregabalin (Lyrica Cap(*)) 50 mg PO BEDTIME [facility] Last Admin: 07/21/17 20:52 Dose: 50 mg Senna (Senokot Tab*) 1 tab PO DAILY [facility] Last Admin: 07/22/17 08:41 Dose: Not Given Tramadol HCl (Ultram*) 50 mg PO Q6H PRN PRN Reason: PAIN Vitamin B Complex/Vitamin E (B Complex-50*) 1 tab PO DAILY [facility] Last Admin: 07/22/17 08:41 Dose: 1 tab Vitamin E (Vitamin E Cap*) 400 unit PO DAILY [facility] Last Admin: 07/22/17 09:14 Dose: 400 unit Vital Signs - 8 hr 07/22/17 07/22/17 07/22/17 04:38 06:55 07:53 Temperature 98.2 F Pulse Rate 91 82 Respiratory 16 17 16 Rate Blood Pressure 147/82 (mmHg) O2 Sat by Pulse 94 96 Oximetry 07/22/17 07/22/17 07/22/17 08:00 08:40 09:26 Temperature Pulse Rate Respiratory 18 18 18 Rate Blood Pressure (mmHg) O2 Sat by Pulse Oximetry 07/22/17 10:45 Temperature Pulse Rate Respiratory 18 Rate Blood Pressure (mmHg) O2 Sat by Pulse Oximetry Oxygen Devices in Use Now: Nasal Cannula Appearance: Sitting up on her bed, appears comfortable and in NAD. Eyes: No Scleral Icterus, PERRLA Ears/Nose/Mouth/Throat: Mucous Membranes Moist Neck: NL Appearance and Movements; NL JVP, Trachea Midline Respiratory: Symmetrical Chest Expansion and Respiratory Effort, Clear to Auscultation, - - Decreased breath sounds at the bases. No wheezes or rhonchi. Cardiovascular: NL Sounds; No Murmurs; No JVD, RRR Abdominal: NL Sounds; No Tenderness; No Distention Extremities: - - Bilateral extremities edema, seems a little better compared to yesterday. Skin: No Rash or Ulcers Neurological: Alert and Oriented x 3 Nutrition: Taking PO's Result Diagrams: 07/22/17 06:20 07/22/17 06:20 Diagnostic Imaging: Patient Name: FRANCISCA ARGUELLES Medical Record#: [id number] Ordering Physician: Jose Antonio MARTINEZ Acct.#: [id number] : 1940 Age: 77 Sex: F Location: [address] [place] [address]/TELEMETRY Exam Date: 07/22/17 06 ADM Status: ADM IN Order Information: CHEST AP PORTABLE Accession Number: [id number] CPT: 22224 INDICATION: Follow-up bibasilar pneumonia IMPRESSION: Radiographic findings are most consistent with cardiogenic pulmonary edema. Worsening densities since the July 21, 2017 chest x-ray at the bilateral lung bases could be atelectasis or pleural effusions. 1 of 1 Assess/Plan/Problems-Billing Assessment: A 77 y/o female with hx COPD, hypertension, hyperlipidemia and morbid obesity, who presented to ED with worsening SOB, found to have bilateral basilar pneumonia on CXR, as well as COPD exacerbations. - Patient Problems (1) COPD exacerbation Current Visit: Yes Comment: steroids/nebs, spportive care, likely viral URI induced CXR reviewed, some element of pulmonary congestion/edema, will increase Lasix, repeat film tomorrow. (2) Pneumonia Current Visit: Yes Status: Acute Comment: IV Azithromycin and Rocephin per protocol Supplemental oxygen Solumedrol Already noticed a benefit from inpatient treatment, likely to go home tomorrow. (3) Abdominal aortic aneurysm (AAA) 30 to 34 mm in diameter Current Visit: Yes Comment: 3.[address] outpatient surveillance (4) Compression fracture Current Visit: No Comment: continue lidocaine patch continue tramadol,lyrica and bowel regimen. Pain under control as present (5) Hyponatremia Current Visit: Yes Comment: Continue Lasix, will try fluid restriction (6) Colon cancer Comment: Dr. Cm follows as outpatient. s/p remote colectomy (7) HTN (hypertension) Current Visit: No (8) Obesity (BMI 30-39.9) Current Visit: No Status: Chronic Code(s): E66.9 - OBESITY, UNSPECIFIED SNOMED Code(s): 421645024 Comment: supportive care (9) Full code status Current Visit: Yes Status: Acute Code(s): Z78.9 - OTHER SPECIFIED HEALTH STATUS SNOMED Code(s): 215353867 (10) DVT prophylaxis Current Visit: Yes Status: Acute Code(s): XVN7274 - SNOMED Code(s): 608968634 Comment: on Lovenox Status and Disposition: Continue inpatient stay for treatment of CAP and COPD exacerbations. Increase Lasix for pulmonary congestion, repeat CXR tomorrow. Plans for probable discharge in AM.
[2017-07-22] MEDS: Pregabalin CAP(*) 50 MG PO SCH (20:03)
[2017-07-23] MEDS: methylPREDNISolone SOD 40 MG* 1 ML VIAL IV SCH (03:06)
[2017-07-23] MEDS: Azithromycin IV(*) 500 MG in NS 0.9% 250 ML* 250 ML IVPB SCH (03:06)
[2017-07-23] MEDS: Enoxaparin(*) 40 MG/0.4 ML SYR SUBCUT SCH (03:07)
[2017-07-23] MEDS: LORazepam TAB(*) 0.5 MG PO PRN ×2 (04:23→20:34)
[2017-07-23] MEDS: cefTRIAXone 1000 MG SYRINGE IVPB Q24H (in NaCl) IVPB SCH ×2 (04:28)
[2017-07-23] MEDS: hydrALAZINE IV* 20 MG/ML VIAL IV SLOW PU PRN ×2 (05:37→23:49)
[2017-07-23] MEDS: Albuterol/Ipratropium NEB.SOL* Albuterol 2.5 MG/Ipratropium 0.5 MG 3 ML INH PRN ×2 (06:44→10:14)
[2017-07-23] MEDS: Mometasone/Formoter 200/5 MDI INH SCH ×2 (06:45→06:47)
[2017-07-23] MEDS: fentaNYL Patch Check Q Shift 1 NOTE SCH ×2 (07:07→19:13)
--- NOTE | 2017-07-23 07:23 | RAD ---
INDICATION: Pneumonia. COMPARISON: Comparison is made with prior study from July 22, 2017. TECHNIQUE: A portable view of the chest was obtained. FINDINGS: The heart appears mildly enlarged. The thoracic aorta is tortuous consistent with atherosclerotic change. The lungs are under inflated. There are small bibasilar infiltrates which are unchanged. IMPRESSION: LOW LUNG VOLUMES, SMALL BIBASILAR FILTRATES, UNCHANGED.
--- NOTE | 2017-07-23 08:42 | PN ---
Subjective Date of Service: 07/23/17 Interval History: Ms. Coburn reports that she doesn't really feel much better than on admission. She continues to feel more short of breath at rest than at her recent baseline. She becomes very dyspneic with any exertion. She denies chest pain, nausea, or abdominal pain and reports good oral intake. Family History: Unchanged from Admission Social History: Unchanged from Admission Past Medical History: Unchanged from Admission Objective Active Medications: Acetaminophen (Tylenol Tab*) 650 mg PO Q4H PRN Albuterol (Ventolin 2.5 Mg/3 Ml Neb.Lisandra*) 2.5 mg INH [id number] AWAKE PRN Albuterol/Ipratropium (Duoneb (Albuterol 2.5 Mg/Ipratropium 0.5 Mg)) 1 neb INH QID PRN Ascorbic Acid (Vitamin C Tab*) 1,000 mg PO DAILY [facility] Atorvastatin Calcium (Lipitor*) 10 mg PO DAILY [facility] Calcium/Vitamin D (Oscal D Tab 250/125*) 1 tab PO DAILY [facility] Docusate Sodium (Colace Cap*) 100 mg PO BID PRN Enoxaparin Sodium (Lovenox(*)) 40 mg SUBCUT Q24H [facility] Fentanyl (Duragesic Patch 50 Mcg/Hr*) 50 mcg TRANSDERM Q3D [facility] Furosemide (Lasix Tab*) 20 mg PO EVERY OTHER DAY [facility] Hydralazine HCl (Apresoline Iv*) 10 mg IV SLOW PU Q4H PRN Azithromycin 500 mg/ Sodium (Chloride) 250 mls @ 250 mls/hr IVPB Q24H [facility] Ceftriaxone Sodium 1,000 mg/ (Sodium Chloride) 10 mls @ 40 mls/hr IVPB Q24H [facility] Lidocaine (Lidoderm 5% Patch*) 1 patch TRANSDERM DAILY PRN Lorazepam (Ativan Tab(*)) 0.5 mg PO Q6H PRN Losartan Potassium (Cozaar Tab*) 100 mg PO DAILY [facility] Methocarbamol (Robaxin Tab*) 500 mg PO TID PRN Methylprednisolone Sodium Succinate (Solu-Medrol 40 Mg) 60 mg IV Q12H [facility] Mometasone Furoate/Formoterol Fumar (Dulera 200/5 Mdi*) 2 puff INH BID [facility] Multivitamins/Minerals (Theragran/Minerals Tab*) 1 tab PO EVERY OTHER DAY [facility] Pharmacy Profile Note (Fentanyl Patch Check Q Shift) 0 note N/A 0700,1900 [facility] Pharmacy Profile Note (Lidocaine Patch Remove*) 1 note PATCH OFF 2100 PRN Polyethylene Glycol/Electrolytes (Miralax*) 17 gm PO DAILY [facility] Pregabalin (Lyrica Cap(*)) 25 mg PO QAM [facility] Pregabalin (Lyrica Cap(*)) 50 mg PO BEDTIME [facility] Senna (Senokot Tab*) 1 tab PO DAILY [facility] Tramadol HCl (Ultram*) 50 mg PO Q6H PRN Vitamin B Complex/Vitamin E (B Complex-50*) 1 tab PO DAILY [facility] Vitamin E (Vitamin E Cap*) 400 unit PO DAILY [facility] Vital Signs: Temp Pulse Resp BP Pulse Ox 97.3 F 95 16 158/83 92 07/23/17 08:28 07/23/17 08:28 07/23/17 08:28 07/23/17 08:28 07/23/17 08:28 Oxygen Devices in Use Now: Nasal Cannula Appearance: Elderly female sitting up in chair in NAD Eyes: No Scleral Icterus Ears/Nose/Mouth/Throat: Mucous Membranes Moist Neck: Trachea Midline Respiratory: Symmetrical Chest Expansion and Respiratory Effort, Clear to Auscultation, - - Diminished in bases Cardiovascular: NL Sounds; No Murmurs; No JVD, - - +1 edema bilateral LEs Abdominal: NL Sounds; No Tenderness; No Distention, No Hepatosplenomegaly Lymphatic: No Cervical Adenopathy Skin: No Rash or Ulcers Neurological: Alert and Oriented x 3, NL Muscle Strength and Tone Nutrition: Taking PO's Result Diagrams: 07/22/17 06:20 07/22/17 06:20 Assess/Plan/Problems-Billing Assessment: Ms. Coburn is a 77 y/o female with hx COPD, hypertension, hyperlipidemia and morbid obesity, who presented to ED with worsening SOB likely secondary to COPD exacerbation and component of acute on chronic diastolic CHF. - Patient Problems (1) COPD exacerbation Comment: - Resolving slowly. Complicated by acute on chronic CHF, diastolic. - Continue po azithromycin, titrate steroids down to 60mg po prednisone. Continue dulera and duonebs prn. - History of severe COPD on PFTs, follows with Dr. Chester outpatient. (2) Diastolic CHF, acute on chronic Comment: - Vascular congestion noted on cxray, improved. - Had recently had lasix decreased to every other day. Increase lasix back to 20mg po daily. - Echo 06/15/17 with intact EF but evidence of diastolic dysfuction and bi-atrial enlargement with possible underestimation of pulmonary hypertension. (3) HTN (hypertension) Comment: - SBP 140-190s. - Continue losartan and increased dose lasix. (4) Compression fracture Comment: - Pain well controlled. - Continue lidocaine patch, tramadol,lyrica and fentanyl patch. (5) Hyponatremia Comment: - Chronic, stable. (6) Abdominal aortic aneurysm (AAA) 30 to 34 mm in diameter Comment: - 3.[address] - Continue outpatient surveillance (7) Hyperlipidemia Comment: - Continue simvastatin. (8) DVT prophylaxis Comment: - Lovenox (9) Full code status Comment: Status and Disposition: Inpatient
[2017-07-23] MEDS: Calcium/Vitamin D TAB 250/125* TAB PO SCH (09:04)
[2017-07-23] MEDS: Multivitamins/Minerals TAB PO SCH (09:05)
[2017-07-23] MEDS: Vitamin B Complex TAB PO SCH (09:05)
[2017-07-23] MEDS: Losartan TAB* 25 MG PO SCH (09:07)
[2017-07-23] MEDS: Vitamin E CAP* 400 UNIT PO SCH (09:10)
[2017-07-23] MEDS: Pregabalin CAP(*) 25 MG PO SCH (09:11)
[2017-07-23] MEDS: Furosemide TAB* 20 MG PO SCH (09:11)
[2017-07-23] MEDS: Senna TAB PO SCH (09:12)
[2017-07-23] MEDS: Polyethylene Glycol 3350* 17 GM PACKET PO SCH (09:18)
[2017-07-23] MEDS: Ascorbic Acid TAB* 500 MG PO SCH (09:18)
[2017-07-23] MEDS: Atorvastatin* 10 MG TAB PO SCH (09:19)
[2017-07-23] MEDS ORDERED: predniSONE TAB* 20 MG PO SCH ×2 (10:00→10:05)
[2017-07-23] MEDS ORDERED: Furosemide TAB* 20 MG PO SCH (10:06)
[2017-07-23] MEDS ORDERED: predniSONE TAB* 20 MG PO ONE (10:40)
[2017-07-23] MEDS: Mometasone/Formoter 100/5 MDI INH SCH ×2 (10:55→20:25)
[2017-07-23] MEDS: guaiFENesin ER TAB 600 MG PO PRN (10:56)
[2017-07-23] MEDS: Azithromycin TAB* 250 MG PO SCH (10:56)
[2017-07-23] MEDS ORDERED: Albuterol 2.5 MG/3 ML NEB.SOL* (0.083%) INH SCH (12:00)
[2017-07-23] MEDS: CMCS:Simvastatin TAB(NF) 20 MG TAB PO SCH (17:37)
[2017-07-23] MEDS: Albuterol 2.5 MG/3 ML NEB.SOL* (0.083%) INH SCH (20:22)
[2017-07-23] MEDS: Pregabalin CAP(*) 50 MG PO SCH (20:31)
[2017-07-24] MEDS: Enoxaparin(*) 40 MG/0.4 ML SYR SUBCUT SCH (04:01)
[2017-07-24] MEDS: fentaNYL PATCH 50 MCG/HR TRANSDERM SCH (04:03)
[2017-07-24] MEDS: fentaNYL Patch Check Q Shift 1 NOTE SCH ×2 (06:47→19:02)
[2017-07-24] MEDS: Mometasone/Formoter 100/5 MDI INH SCH ×2 (07:20→19:19)
[2017-07-24] MEDS: Albuterol 2.5 MG/3 ML NEB.SOL* (0.083%) INH SCH ×3 (07:20→19:28)
--- NOTE | 2017-07-24 08:39 | PN ---
Subjective Date of Service: 07/24/17 Interval History: Ms. Coburn reports that she is feeling somewhat better today. She remains dyspneic with mobility but feels that she is recovering much more quickly today. She denies other complaint including chest pain, nausea, or abdominal pain and is tolerating oral intake well. Family History: Unchanged from Admission Social History: Unchanged from Admission Past Medical History: Unchanged from Admission Objective Active Medications: Acetaminophen (Tylenol Tab*) 650 mg PO Q4H PRN Albuterol (Ventolin 2.5 Mg/3 Ml Neb.Lisandra*) 2.5 mg INH 0700,1300,1900 [facility] Albuterol/Ipratropium (Duoneb (Albuterol 2.5 Mg/Ipratropium 0.5 Mg)) 1 neb INH QID PRN Ascorbic Acid (Vitamin C Tab*) 1,000 mg PO DAILY [facility] Azithromycin (Zithromax Tab*) 250 mg PO DAILY [facility] Calcium/Vitamin D (Oscal D Tab 250/125*) 1 tab PO DAILY [facility] Docusate Sodium (Colace Cap*) 100 mg PO BID PRN Enoxaparin Sodium (Lovenox(*)) 40 mg SUBCUT Q24H [facility] Fentanyl (Duragesic Patch 50 Mcg/Hr*) 50 mcg TRANSDERM Q3D [facility] Furosemide (Lasix Tab*) 20 mg PO DAILY [facility] Guaifenesin (Robitussin*) 5 ml PO Q4H PRN Guaifenesin (Mucinex*) 1,200 mg PO BID PRN Hydralazine HCl (Apresoline Iv*) 10 mg IV SLOW PU Q4H PRN Lidocaine (Lidoderm 5% Patch*) 1 patch TRANSDERM DAILY PRN Lorazepam (Ativan Tab(*)) 0.5 mg PO Q6H PRN Losartan Potassium (Cozaar Tab*) 100 mg PO DAILY [facility] Methocarbamol (Robaxin Tab*) 500 mg PO TID PRN Mometasone Furoate/Formoterol Fumar (Dulera 100/5 Mdi*) 2 puff INH BID [facility] Multivitamins/Minerals (Theragran/Minerals Tab*) 1 tab PO EVERY OTHER DAY [facility] Pharmacy Profile Note (Fentanyl Patch Check Q Shift) 0 note N/A 0700,1900 [facility] Pharmacy Profile Note (Lidocaine Patch Remove*) 1 note PATCH OFF 2100 PRN Polyethylene Glycol/Electrolytes (Miralax*) 17 gm PO DAILY [facility] Prednisone (Deltasone Tab*) 60 mg PO DAILY [facility] Pregabalin (Lyrica Cap(*)) 25 mg PO QAM [facility] Pregabalin (Lyrica Cap(*)) 50 mg PO BEDTIME [facility] Senna (Senokot Tab*) 1 tab PO DAILY [facility] Simvastatin (Zocor(Nf)) 20 mg PO QPM [facility] Tramadol HCl (Ultram*) 50 mg PO Q6H PRN Vitamin B Complex/Vitamin E (B Complex-50*) 1 tab PO DAILY [facility] Vitamin E (Vitamin E Cap*) 400 unit PO DAILY [facility] Vital Signs: Temp Pulse Resp BP Pulse Ox 98.0 F 90 18 143/74 94 07/24/17 04:08 07/24/17 07:22 07/24/17 07:22 07/24/17 04:08 07/24/17 07:22 Oxygen Devices in Use Now: Nasal Cannula Appearance: Female sitting up in bed in NAD Eyes: No Scleral Icterus Ears/Nose/Mouth/Throat: NL Teeth, Lips, Gums Neck: NL Appearance and Movements; NL JVP Respiratory: Symmetrical Chest Expansion and Respiratory Effort, - - Minimal rales in bases Cardiovascular: NL Sounds; No Murmurs; No JVD, No Edema Abdominal: NL Sounds; No Tenderness; No Distention Lymphatic: No Cervical Adenopathy Extremities: No Edema Skin: No Rash or Ulcers Neurological: Alert and Oriented x 3, NL Muscle Strength and Tone Nutrition: Taking PO's Result Diagrams: 07/22/17 06:20 07/22/17 06:20 Diagnostic Imaging: . EKG Data: . Assess/Plan/Problems-Billing Assessment: Ms. Coburn is a 77 y/o female with hx COPD, hypertension, hyperlipidemia and morbid obesity, who presented to ED with worsening SOB likely secondary to COPD exacerbation and component of acute on chronic diastolic CHF. - Patient Problems (1) COPD exacerbation Comment: - Resolving slowly. Complicated by acute on chronic CHF, diastolic. - Follows with [facility] outpatient, severe COPD at baseline. Have asked for consult in AM for medication optimization. - Continue po azithromycin, titrate steroids down to 60mg po prednisone. Continue dulera and duonebs prn. (2) Diastolic CHF, acute on chronic Comment: - Vascular congestion noted on cxray, improved. - Had recently had lasix decreased to every other day. Increase lasix to 20mg po BID. Follow labs closely. - Echo 06/15/17 with intact EF but evidence of diastolic dysfuction and bi-atrial enlargement with possible underestimation of pulmonary hypertension. (3) HTN (hypertension) Comment: - SBP 140-190s. - Continue losartan and increased dose lasix. (4) Compression fracture Comment: - Pain well controlled. - Continue lidocaine patch, tramadol,lyrica and decrease fentanyl patch and patient's request. (5) Hyponatremia Comment: - Chronic, stable. (6) Abdominal aortic aneurysm (AAA) 30 to 34 mm in diameter Comment: - 3.[address] - Continue outpatient surveillance (7) Hyperlipidemia Comment: - Continue simvastatin. (8) DVT prophylaxis Comment: - Lovenox (9) Full code status Comment: Status and Disposition: Inpatient. Anticipate discharge to home when medically stable.
[2017-07-24] MEDS: Azithromycin TAB* 250 MG PO SCH (08:43)
[2017-07-24] MEDS: Losartan TAB* 25 MG PO SCH (08:43)
[2017-07-24] MEDS: predniSONE TAB* 20 MG PO SCH (08:43)
[2017-07-24] MEDS: Vitamin E CAP* 400 UNIT PO SCH (08:44)
[2017-07-24] MEDS: Pregabalin CAP(*) 25 MG PO SCH (08:44)
[2017-07-24] MEDS: Calcium/Vitamin D TAB 250/125* TAB PO SCH (08:45)
[2017-07-24] MEDS: Ascorbic Acid TAB* 500 MG PO SCH (08:45)
[2017-07-24] MEDS: Senna TAB PO SCH (09:00)
[2017-07-24] MEDS: Polyethylene Glycol 3350* 17 GM PACKET PO SCH (09:00)
[2017-07-24] MEDS ORDERED: Furosemide TAB* 20 MG PO SCH (09:00)
[2017-07-24] MEDS: LORazepam TAB(*) 0.5 MG PO PRN ×2 (10:13→23:15)
[2017-07-24] MEDS: Vitamin B Complex TAB PO SCH (10:13)
[2017-07-24] MEDS: Docusate CAP* 100 MG PO PRN (10:13)
[2017-07-24] MEDS: guaiFENesin ER TAB 600 MG PO PRN (14:05)
[2017-07-24] MEDS: CMCS:Simvastatin TAB(NF) 20 MG TAB PO SCH (17:43)
[2017-07-24] MEDS: Furosemide TAB* 20 MG PO SCH (17:43)
[2017-07-24] MEDS ORDERED: fentaNYL PATCH 12 MCG/HR TRANSDERM SCH (19:00)
[2017-07-24] MEDS ORDERED: fentaNYL PATCH 25 MCG/HR TRANSDERM SCH (19:00)
[2017-07-24] MEDS: Albuterol/Ipratropium NEB.SOL* Albuterol 2.5 MG/Ipratropium 0.5 MG 3 ML INH PRN (19:15)
[2017-07-24] MEDS: Pregabalin CAP(*) 50 MG PO SCH (20:28)
[2017-07-25] MEDS: Albuterol/Ipratropium NEB.SOL* Albuterol 2.5 MG/Ipratropium 0.5 MG 3 ML INH PRN (02:19)
[2017-07-25] MEDS: Enoxaparin(*) 40 MG/0.4 ML SYR SUBCUT SCH (03:55)
[2017-07-25 06:22] LABS: EGFR Non-African American 67.6 (>60)
[2017-07-25] MEDS: guaiFENesin LIQ* 100 MG/5 ML UDC PO PRN ×2 (06:52→21:08)
[2017-07-25] MEDS: fentaNYL Patch Check Q Shift 1 NOTE SCH ×2 (06:54→19:07)
[2017-07-25] MEDS: Albuterol 2.5 MG/3 ML NEB.SOL* (0.083%) INH SCH ×3 (07:02→19:31)
[2017-07-25] MEDS: Mometasone/Formoter 100/5 MDI INH SCH ×2 (07:03→19:31)
[2017-07-25] MEDS: Polyethylene Glycol 3350* 17 GM PACKET PO SCH (08:33)
[2017-07-25] MEDS: Calcium/Vitamin D TAB 250/125* TAB PO SCH (08:34)
[2017-07-25] MEDS: predniSONE TAB* 20 MG PO SCH (08:34)
[2017-07-25] MEDS: Senna TAB PO SCH (08:34)
[2017-07-25] MEDS: Multivitamins/Minerals TAB PO SCH (08:34)
[2017-07-25] MEDS: Ascorbic Acid TAB* 500 MG PO SCH (08:34)
[2017-07-25] MEDS: Furosemide TAB* 20 MG PO SCH ×2 (08:34→17:16)
[2017-07-25] MEDS: Vitamin B Complex TAB PO SCH (08:34)
[2017-07-25] MEDS: Losartan TAB* 25 MG PO SCH (08:35)
[2017-07-25] MEDS: Azithromycin TAB* 250 MG PO SCH (08:35)
[2017-07-25] MEDS: Pregabalin CAP(*) 25 MG PO SCH (08:35)
[2017-07-25] MEDS: Vitamin E CAP* 400 UNIT PO SCH (08:35)
--- NOTE | 2017-07-25 10:58 | PN ---
Subjective Date of Service: 07/25/17 Interval History: Patient seen and examined at bedside. Reports feeling better everyday, still c/ o dyspnea with minimal excertion. Denies wheezing or dyspnea at rest. Cough is improving. Denies chest pain, palpitations, fever or chills. Feels weak on her legs, would like some PT prior to discharge. Family History: Unchanged from Admission Social History: Unchanged from Admission Past Medical History: Unchanged from Admission Objective Active Medications: Acetaminophen (Tylenol Tab*) 650 mg PO Q4H PRN PRN Reason: FEVER/PAIN Albuterol (Ventolin 2.5 Mg/3 Ml Neb.Lisandra*) 2.5 mg INH 0700,1300,1900 [facility] Last Admin: 07/25/17 07:02 Dose: 2.5 mg Albuterol/Ipratropium (Duoneb (Albuterol 2.5 Mg/Ipratropium 0.5 Mg)) 1 neb INH QID PRN PRN Reason: SHORTNESS OF BREATH Last Admin: 07/25/17 02:19 Dose: 1 neb Ascorbic Acid (Vitamin C Tab*) 1,000 mg PO DAILY [facility] Last Admin: 07/25/17 08:34 Dose: 500 mg Azithromycin (Zithromax Tab*) 250 mg PO DAILY [facility] Last Admin: 07/25/17 08:35 Dose: 250 mg Calcium/Vitamin D (Oscal D Tab 250/125*) 1 tab PO DAILY [facility] Last Admin: 07/25/17 08:34 Dose: 1 tab Docusate Sodium (Colace Cap*) 100 mg PO BID PRN PRN Reason: CONSTIPATION Last Admin: 07/24/17 10:13 Dose: 100 mg Enoxaparin Sodium (Lovenox(*)) 40 mg SUBCUT Q24H [facility] Last Admin: 07/25/17 03:55 Dose: 40 mg Fentanyl (Duragesic Patch 12 Mcg/Hr *) 12 mcg TRANSDERM Q72H [facility] Last Admin: 07/24/17 19:01 Dose: 12 mcg Fentanyl (Duragesic Patch 25 Mcg/Hr*) 25 mcg TRANSDERM Q72H [facility] Last Admin: 07/24/17 18:59 Dose: 25 mcg Furosemide (Lasix Tab*) 20 mg PO 0800,1700 [facility] Last Admin: 07/25/17 08:34 Dose: 20 mg Guaifenesin (Robitussin*) 5 ml PO Q4H PRN PRN Reason: COUGH Last Admin: 07/25/17 06:52 Dose: 5 ml Guaifenesin (Mucinex*) 1,200 mg PO BID PRN PRN Reason: COUGH Last Admin: 07/24/17 14:05 Dose: 1,200 mg Hydralazine HCl (Apresoline Iv*) 10 mg IV SLOW PU Q4H PRN PRN Reason: SBP > 175 Last Admin: 07/23/17 23:49 Dose: 10 mg Lidocaine (Lidoderm 5% Patch*) 1 patch TRANSDERM DAILY PRN PRN Reason: PAIN Lorazepam (Ativan Tab(*)) 0.5 mg PO Q6H PRN PRN Reason: ANXIETY Last Admin: 07/24/17 23:15 Dose: 0.5 mg Losartan Potassium (Cozaar Tab*) 100 mg PO DAILY [facility] Last Admin: 07/25/17 08:35 Dose: 100 mg Methocarbamol (Robaxin Tab*) 500 mg PO TID PRN PRN Reason: SPASMS Mometasone Furoate/Formoterol Fumar (Dulera 100/5 Mdi*) 2 puff INH BID [facility] Last Admin: 07/25/17 07:03 Dose: 2 puff Multivitamins/Minerals (Theragran/Minerals Tab*) 1 tab PO EVERY OTHER DAY [facility] Last Admin: 07/25/17 08:34 Dose: 1 tab Pharmacy Profile Note (Fentanyl Patch Check Q Shift) 0 note N/A 0700,1900 [facility] Last Admin: 07/25/17 06:54 Dose: 1 note Pharmacy Profile Note (Lidocaine Patch Remove*) 1 note PATCH OFF 2100 PRN PRN Reason: IF APPLIED DURING THE DAY Polyethylene Glycol/Electrolytes (Miralax*) 17 gm PO DAILY [facility] Last Admin: 07/25/17 08:33 Dose: Not Given Prednisone (Deltasone Tab*) 60 mg PO DAILY [facility] Last Admin: 07/25/17 08:34 Dose: 60 mg Pregabalin (Lyrica Cap(*)) 25 mg PO QAM [facility] Last Admin: 07/25/17 08:35 Dose: 25 mg Pregabalin (Lyrica Cap(*)) 50 mg PO BEDTIME [facility] Last Admin: 07/24/17 20:28 Dose: 50 mg Senna (Senokot Tab*) 1 tab PO DAILY [facility] Last Admin: 07/25/17 08:34 Dose: 1 tab Simvastatin (Zocor(Nf)) 20 mg PO QPM [facility] Last Admin: 07/24/17 17:43 Dose: 20 mg Tramadol HCl (Ultram*) 50 mg PO Q6H PRN PRN Reason: PAIN Vitamin B Complex/Vitamin E (B Complex-50*) 1 tab PO DAILY [facility] Last Admin: 07/25/17 08:34 Dose: 1 tab Vitamin E (Vitamin E Cap*) 400 unit PO DAILY [facility] Last Admin: 07/25/17 08:35 Dose: 400 unit Vital Signs - 8 hr 07/25/17 07/25/17 07/25/17 03:20 06:57 07:49 Temperature 97.9 F 98.2 F Pulse Rate 77 84 91 Respiratory 18 20 Rate Blood Pressure 157/73 161/78 (mmHg) O2 Sat by Pulse 93 94 92 Oximetry 07/25/17 07/25/17 08:00 08:35 Temperature Pulse Rate Respiratory 18 22 Rate Blood Pressure (mmHg) O2 Sat by Pulse Oximetry Oxygen Devices in Use Now: Nasal Cannula Appearance: Alert and oriented, comfortable on her bed, in NAD. Eyes: No Scleral Icterus, PERRLA Ears/Nose/Mouth/Throat: Mucous Membranes Moist Neck: NL Appearance and Movements; NL JVP, Trachea Midline Respiratory: Symmetrical Chest Expansion and Respiratory Effort, - - Decreased breath sounds at the bases bilaterally. No rales or wheezes noted. Cardiovascular: NL Sounds; No Murmurs; No JVD Abdominal: NL Sounds; No Tenderness; No Distention Lymphatic: No Cervical Adenopathy Skin: No Rash or Ulcers Neurological: Alert and Oriented x 3 Nutrition: Taking PO's Result Diagrams: 07/22/17 06:20 07/25/17 05:32 Microbiology and Other Data: Microbiology 07/24/17 15:42 Gram Stain - Final Sputum Expectorated Assess/Plan/Problems-Billing Assessment: Ms. Coburn is a 77 y/o female with hx COPD, hypertension, hyperlipidemia and morbid obesity, who presented to ED with worsening SOB likely secondary to COPD exacerbation and component of acute on chronic diastolic CHF. - Patient Problems (1) COPD exacerbation Current Visit: Yes Comment: - Resolving slowly. Complicated by acute on chronic CHF, diastolic. - Follows with [facility] outpatient, severe COPD at baseline. Pulmonary consult requested, await recomendations. - Continue po azithromycin, titrate steroids down to 60mg po prednisone. Continue dulera and duonebs prn. (2) Abdominal aortic aneurysm (AAA) 30 to 34 mm in diameter Current Visit: Yes Comment: - 3.[address] - Continue outpatient surveillance (3) Compression fracture Current Visit: No Comment: - Pain well controlled. - Continue lidocaine patch, tramadol,lyrica and decrease fentanyl patch and patient's request. (4) Hyponatremia Current Visit: Yes Comment: - Chronic, stable. (5) Colon cancer Comment: Dr. Cm follows as outpatient. s/p remote colectomy (6) HTN (hypertension) Current Visit: No (7) Obesity (BMI 30-39.9) Current Visit: No Status: Chronic Code(s): E66.9 - OBESITY, UNSPECIFIED SNOMED Code(s): 807428924 Comment: supportive care (8) Full code status Current Visit: Yes Status: Acute Code(s): Z78.9 - OTHER SPECIFIED HEALTH STATUS SNOMED Code(s): 351237121 Comment: (9) DVT prophylaxis Current Visit: Yes Status: Acute Code(s): WIB7548 - SNOMED Code(s): 501978651 Comment: - Lovenox Status and Disposition: Inpatient. Anticipate discharge to home when medically stable.
[2017-07-25] MEDS: CMCS:Simvastatin TAB(NF) 20 MG TAB PO SCH (17:16)
--- NOTE | 2017-07-25 20:52 | CONS ---
PULMONARY CONSULTATION REPORT: DATE OF CONSULT: 07/25/17 CONSULTATION REQUESTED BY: Shanti Cody NP REASON FOR CONSULT: Evaluation of COPD. HISTORY OF PRESENT ILLNESS: The patient is a 77-year-old female with history of COPD, known to me from outpatient evaluation, the patient recently had T12 compression fracture in May, had increasing trouble getting around and worsening breathing, was placed in snf for rehabilitation. The patient reports sick contacts in the snf. The patient reports worsening of shortness of breath there. The patient reports that her breathing gets worse without air conditioning. The patient was brought into the ED for evaluation of worsening shortness of breath with minimal exertion. The patient also reports cough currently productive of yellow phlegm. The patient denies chest pain or palpitations. The patient denies subjective fevers or chills. The patient was admitted for management of acute COPD exacerbation and CHF exacerbation. The patient reports improvement in breathing since she started mobilizing the phlegm. She has been using flutter device and Mucinex and that is helping. The patient ambulated to the restroom and little bit in the hallway today without much limitation. The patient reports that her symptoms are slowly returning to the baseline. I personally reviewed chest x-ray performed on admission in comparison with recent chest x-ray. The patient with evidence of hyperinflation consistent with her history of COPD, also noted to have small basilar infiltrates, which could have been basal atelectasis. She has tortuous thoracic aorta. The patient did not have elevated white count upon admission or a left shift. Her troponins have been within normal limits. BNP was not elevated. Lactic acid was within normal limits. She was hyponatremic with sodium of 133 upon admission that has been improving. The patient has been on diuretics at home for chronic lower extremity swelling. The patient otherwise has been compliant with her inhalers as prescribed at home. PAST MEDICAL HISTORY: 1. COPD, on 2 L home O2. 2. Hypertension. 3. Dyslipidemia. 4. Abdominal aortic aneurysm. 5. Hyponatremia secondary to SIADH, on fluid restriction. 6. Peripheral neuropathy. 7. Colon cancer, status post resection and chemotherapy. 8. Osteoporosis, has not been receiving medications due to insurance issues and had compression fracture. PAST SURGICAL HISTORY: Colectomy, left total knee replacement. MEDICATIONS: 1. Tylenol. 2. Albuterol. 3. Vitamin C. 4. Budesonide/formoterol. 5. Calcium/vitamin D. 6. Colace. 7. Fentanyl. 8. Furosemide 20 mg every other day. 9. Irbesartan 300 mg daily. 10. Lidocaine. 11. Robaxin. 12. Multivitamin. 13. MiraLAX. 14. Gabapentin. 15. Senna. 16. Simvastatin. 17. Tramadol. 18. Vitamin B. 19. Vitamin E. ALLERGIES: ADHESIVE TAPE, CODEINE, PENICILLIN, SPIRIVA, IODINE. FAMILY HISTORY: Father of lung and liver cancer, mother of natural causes. 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 Daughter lives close by and helps her. She is a former smoker, quit in 2003. Social alcohol intake. No recreational drug intake. REVIEW OF SYSTEMS: All 14 systems reviewed and as per HPI. PHYSICAL EXAM: Morbidly obese female, in bed, in no apparent distress. Vital Signs: Temperature 98.2, pulse 92 beats per minute, respiratory rate 17 per minute, O2 sat 92% on 2 L. HEENT: Pupils equal, reactive to light. Mucous membranes moist. Neck: Supple. No JVD. Lungs: Scattered wheeze mostly anteriorly. No rales. Cardiovascular: S1, S2 present. Regular, has lower extremity edema. Pulses palpable. Abdomen: Obese, bowel sounds present, nontender, nondistended. Extremities: Varicose veins bilaterally in the lower extremities, normal range of motion. Neurologic: No focal deficits. Skin: No rash or bruises. DIAGNOSTIC STUDIES/LAB DATA: WBC count 6.4, hemoglobin 13.4, hematocrit 38, platelet count of 311. Sodium 135 today, potassium 4.1, chloride 100, bicarb 29 , BUN 27, creatinine 0.82. Sputum culture showed normal desi, negative to date. Blood cultures negative to date. Chest x-ray as described above in HPI. IMPRESSION AND RECOMMENDATIONS: 77-year-old obese female, former smoker with history of chronic obstructive pulmonary disease, hypoxemia, O2 dependent; chronic lower extremity edema secondary to cor pulmonale, stable without history of recurrent exacerbations, admitted with worsening shortness of breath secondary to acute chronic obstructive pulmonary disease exacerbation in the setting of recent compression fracture and staying in the nursing facility. The patient reports improvement in symptoms since she started mobilizing the phlegm. Continue with DuoNeb q.4 hours and p.r.n. Currently on prednisone 60 mg daily, improvement in wheezing, will recommend tapering down the prednisone. Continue with long-acting bronchodilators. Continue with Mucinex and flutter device. She is able to mobilize the phlegm currently and does not need nebulizer treatments with saline. She will benefit from nebulizer equipment at home upon discharge. Continue with current antibiotics for community-acquired pneumonia. Thank you for allowing me to participate in the care of your patient. Will follow up with you. [id number]/[facility] #: [id number] EULALIO
[2017-07-25] MEDS: Pregabalin CAP(*) 50 MG PO SCH (20:56)
[2017-07-25] MEDS: hydrALAZINE IV* 20 MG/ML VIAL IV SLOW PU PRN (21:08)
[2017-07-25] MEDS: LORazepam TAB(*) 0.5 MG PO PRN (22:47)
[2017-07-25] MEDS: traMADol TAB* 50 MG PO PRN (23:52)
[2017-07-26] MEDS: Enoxaparin(*) 40 MG/0.4 ML SYR SUBCUT SCH ×2 (06:58→10:01)
[2017-07-26] MEDS: fentaNYL Patch Check Q Shift 1 NOTE SCH ×2 (07:15→19:14)
[2017-07-26] MEDS ORDERED: Albuterol 2.5 MG/3 ML NEB.SOL* (0.083%) ONE (07:53)
[2017-07-26] MEDS: Albuterol 2.5 MG/3 ML NEB.SOL* (0.083%) INH SCH ×3 (08:02→19:50)
[2017-07-26] MEDS: Mometasone/Formoter 100/5 MDI INH SCH ×2 (08:02→19:50)
[2017-07-26] MEDS: Furosemide TAB* 20 MG PO SCH ×2 (10:01→16:21)
[2017-07-26] MEDS: Vitamin E CAP* 400 UNIT PO SCH (10:01)
[2017-07-26] MEDS: Vitamin B Complex TAB PO SCH (10:01)
[2017-07-26] MEDS: Losartan TAB* 25 MG PO SCH (10:02)
[2017-07-26] MEDS: Pregabalin CAP(*) 25 MG PO SCH (10:02)
[2017-07-26] MEDS: Ascorbic Acid TAB* 500 MG PO SCH (10:02)
[2017-07-26] MEDS: predniSONE TAB* 20 MG PO SCH (10:03)
[2017-07-26] MEDS: Azithromycin TAB* 250 MG PO SCH (10:03)
[2017-07-26] MEDS: Calcium/Vitamin D TAB 250/125* TAB PO SCH (10:03)
[2017-07-26] MEDS: Senna TAB PO SCH (10:03)
[2017-07-26] MEDS: Polyethylene Glycol 3350* 17 GM PACKET PO SCH (10:03)
[2017-07-26] MEDS: traMADol TAB* 50 MG PO PRN (10:13)
[2017-07-26] MEDS: LORazepam TAB(*) 0.5 MG PO PRN ×2 (10:13→22:28)
--- NOTE | 2017-07-26 16:34 | PN ---
Subjective Date of Service: 07/26/17 Interval History: Patient seen and examined at bedside. Feeling better every day, slept well last night. Denies chest pain, SOB or cough. She has her home health care set up to resume tomorrow. Has no complaints today. Family History: Unchanged from Admission Social History: Unchanged from Admission Past Medical History: Unchanged from Admission Objective Active Medications: Acetaminophen (Tylenol Tab*) 650 mg PO Q4H PRN PRN Reason: FEVER/PAIN Albuterol (Ventolin 2.5 Mg/3 Ml Neb.Lisandra*) 2.5 mg INH 0700,1300,1900 [facility] Last Admin: 07/26/17 13:30 Dose: 2.5 mg Albuterol/Ipratropium (Duoneb (Albuterol 2.5 Mg/Ipratropium 0.5 Mg)) 1 neb INH QID PRN PRN Reason: SHORTNESS OF BREATH Last Admin: 07/26/17 00:00 Dose: 1 neb Ascorbic Acid (Vitamin C Tab*) 1,000 mg PO DAILY [facility] Last Admin: 07/26/17 10:02 Dose: 1,000 mg Azithromycin (Zithromax Tab*) 250 mg PO DAILY [facility] Last Admin: 07/26/17 10:03 Dose: 250 mg Calcium/Vitamin D (Oscal D Tab 250/125*) 1 tab PO DAILY [facility] Last Admin: 07/26/17 10:03 Dose: 1 tab Docusate Sodium (Colace Cap*) 100 mg PO BID PRN PRN Reason: CONSTIPATION Last Admin: 07/24/17 10:13 Dose: 100 mg Enoxaparin Sodium (Lovenox(*)) 40 mg SUBCUT DAILY [facility] Last Admin: 07/26/17 10:01 Dose: 40 mg Fentanyl (Duragesic Patch 12 Mcg/Hr *) 12 mcg TRANSDERM Q72H [facility] Last Admin: 07/24/17 19:01 Dose: 12 mcg Fentanyl (Duragesic Patch 25 Mcg/Hr*) 25 mcg TRANSDERM Q72H [facility] Last Admin: 07/24/17 18:59 Dose: 25 mcg Furosemide (Lasix Tab*) 20 mg PO 0800,1700 [facility] Last Admin: 07/26/17 16:21 Dose: 20 mg Guaifenesin (Robitussin*) 5 ml PO Q4H PRN PRN Reason: COUGH Last Admin: 07/25/17 21:08 Dose: 5 ml Guaifenesin (Mucinex*) 1,200 mg PO BID PRN PRN Reason: COUGH Last Admin: 07/24/17 14:05 Dose: 1,200 mg Hydralazine HCl (Apresoline Iv*) 10 mg IV SLOW PU Q4H PRN PRN Reason: SBP > 175 Last Admin: 07/25/17 21:08 Dose: 10 mg Lidocaine (Lidoderm 5% Patch*) 1 patch TRANSDERM DAILY PRN PRN Reason: PAIN Lorazepam (Ativan Tab(*)) 0.5 mg PO Q6H PRN PRN Reason: ANXIETY Last Admin: 07/26/17 10:13 Dose: 0.5 mg Losartan Potassium (Cozaar Tab*) 100 mg PO DAILY [facility] Last Admin: 07/26/17 10:02 Dose: 100 mg Methocarbamol (Robaxin Tab*) 500 mg PO TID PRN PRN Reason: SPASMS Mometasone Furoate/Formoterol Fumar (Dulera 100/5 Mdi*) 2 puff INH BID [facility] Last Admin: 07/26/17 08:02 Dose: 2 puff Multivitamins/Minerals (Theragran/Minerals Tab*) 1 tab PO EVERY OTHER DAY [facility] Last Admin: 07/25/17 08:34 Dose: 1 tab Pharmacy Profile Note (Fentanyl Patch Check Q Shift) 0 note N/A 0700,1900 [facility] Last Admin: 07/26/17 07:15 Dose: 1 note Pharmacy Profile Note (Lidocaine Patch Remove*) 1 note PATCH OFF 2100 PRN PRN Reason: IF APPLIED DURING THE DAY Polyethylene Glycol/Electrolytes (Miralax*) 17 gm PO DAILY [facility] Last Admin: 07/26/17 10:03 Dose: Not Given Prednisone (Deltasone Tab*) 60 mg PO DAILY [facility] Last Admin: 07/26/17 10:03 Dose: 60 mg Pregabalin (Lyrica Cap(*)) 25 mg PO QAM [facility] Last Admin: 07/26/17 10:02 Dose: 25 mg Pregabalin (Lyrica Cap(*)) 50 mg PO BEDTIME [facility] Last Admin: 07/25/17 20:56 Dose: 50 mg Senna (Senokot Tab*) 1 tab PO DAILY [facility] Last Admin: 07/26/17 10:03 Dose: 1 tab Simvastatin (Zocor(Nf)) 20 mg PO QPM [facility] Last Admin: 07/25/17 17:16 Dose: 20 mg Tramadol HCl (Ultram*) 50 mg PO Q6H PRN PRN Reason: PAIN Last Admin: 07/26/17 10:13 Dose: 50 mg Vitamin B Complex/Vitamin E (B Complex-50*) 1 tab PO DAILY [facility] Last Admin: 07/26/17 10:01 Dose: 1 tab Vitamin E (Vitamin E Cap*) 400 unit PO DAILY [facility] Last Admin: 07/26/17 10:01 Dose: 400 unit Vital Signs - 8 hr 07/26/17 07/26/17 07/26/17 10:02 10:13 13:04 Pulse Rate Respiratory 16 16 18 Rate Blood Pressure (mmHg) O2 Sat by Pulse Oximetry 07/26/17 07/26/17 13:31 13:50 Pulse Rate 76 70 Respiratory 16 16 Rate Blood Pressure 132/86 (mmHg) O2 Sat by Pulse 94 Oximetry Oxygen Devices in Use Now: Nasal Cannula Appearance: Sitting on her chair, appears comfortable, breathing with ease. Eyes: No Scleral Icterus, PERRLA Ears/Nose/Mouth/Throat: Mucous Membranes Moist Neck: NL Appearance and Movements; NL JVP, Trachea Midline Respiratory: Symmetrical Chest Expansion and Respiratory Effort, Clear to Auscultation Cardiovascular: NL Sounds; No Murmurs; No JVD, RRR Abdominal: NL Sounds; No Tenderness; No Distention Extremities: - - Bilateral lower extremities edema appears to improve. Neurological: Alert and Oriented x 3 Nutrition: Taking PO's Result Diagrams: 07/22/17 06:20 07/25/17 05:32 Microbiology and Other Data: . Diagnostic Imaging: . EKG Data: . Assess/Plan/Problems-Billing Assessment: Ms. Coburn is a 77 y/o female with hx COPD, hypertension, hyperlipidemia and morbid obesity, who presented to ED with worsening SOB likely secondary to COPD exacerbation and component of acute on chronic diastolic CHF. - Patient Problems (1) COPD exacerbation Current Visit: Yes Comment: - Resolving slowly. Complicated by acute on chronic CHF, diastolic. - Follows with [facility] outpatient, severe COPD at baseline. Pulmonary consult appreciated. Will taper down her Prednisone and continue nebs as recommended. - Continue po azithromycin. (2) Abdominal aortic aneurysm (AAA) 30 to 34 mm in diameter Current Visit: Yes Comment: - 3.[address] - Continue outpatient surveillance (3) Compression fracture Current Visit: No Comment: - Pain well controlled. - Continue lidocaine patch, tramadol,lyrica and decrease fentanyl patch and patient's request. - Sciatica pain has been bothering her, but would like to continue fentanyl patch as is for now. (4) Hyponatremia Current Visit: Yes Comment: - Chronic, stable. (5) Colon cancer Comment: Dr. Cm follows as outpatient. s/p remote colectomy (6) HTN (hypertension) Current Visit: No (7) Obesity (BMI 30-39.9) Current Visit: No Status: Chronic Code(s): E66.9 - OBESITY, UNSPECIFIED SNOMED Code(s): 418817790 Comment: supportive care (8) Full code status Current Visit: Yes Status: Acute Code(s): Z78.9 - OTHER SPECIFIED HEALTH STATUS SNOMED Code(s): 379729464 Comment: (9) DVT prophylaxis Current Visit: Yes Status: Acute Code(s): MRG0417 - SNOMED Code(s): 961298763 Comment: - Lovenox Status and Disposition: Inpatient. Anticipate discharge tomorrow 07/27 with PO Z-pack, Prednisone taper dose and Mucinex.
--- NOTE | 2017-07-26 17:10 | PN ---
Progress Note - Progress Note Date of Service: 07/26/17 - Pulm f/u note Note: Pt seen and examined at bedside. Pt reports improvement in SOB. Denies significant cough Active Medications Generic Name Dose Route Start Last Admin Trade Name Freq PRN Reason Stop Dose Admin Acetaminophen 650 mg 07/21/17 03:27 Tylenol Tab* PO Q4H PRN FEVER/PAIN Albuterol 2.5 mg 07/23/17 19:00 07/26/17 13:30 Ventolin 2.5 Mg/3 Ml Neb.Lisandra* INH 2.5 mg 0700,1300,1900 [facility] Administration Albuterol/Ipratropium 1 neb 07/21/17 03:27 07/26/17 00:00 Duoneb (Albuterol 2.5 Mg/Ipratropium 0.5 Mg) INH 1 neb QID PRN Administration SHORTNESS OF BREATH Ascorbic Acid 1,000 mg 07/21/17 09:00 07/26/17 10:02 Vitamin C Tab* PO 1,000 mg DAILY [facility] Administration Azithromycin 250 mg 07/23/17 11:00 07/26/17 10:03 Zithromax Tab* PO 250 mg DAILY [facility] Administration Calcium/Vitamin D 1 tab 07/21/17 09:00 07/26/17 10:03 Oscal D Tab 250/125* PO 1 tab DAILY [facility] Administration Docusate Sodium 100 mg 07/21/17 03:27 07/24/17 10:13 Colace Cap* PO 100 mg BID PRN Administration CONSTIPATION Enoxaparin Sodium 40 mg 07/26/17 09:00 07/26/17 10:01 Lovenox(*) SUBCUT 40 mg DAILY [facility] Administration Fentanyl 12 mcg 07/24/17 19:00 07/24/17 19:01 Duragesic Patch 12 Mcg/Hr * TRANSDERM 12 mcg Q72H [facility] Administration Fentanyl 25 mcg 07/24/17 19:00 07/24/17 18:59 Duragesic Patch 25 Mcg/Hr* TRANSDERM 25 mcg Q72H [facility] Administration Furosemide 20 mg 07/24/17 17:00 07/26/17 16:21 Lasix Tab* PO 20 mg 0800,1700 [facility] Administration Guaifenesin 5 ml 07/23/17 09:45 07/25/17 21:08 Robitussin* PO 5 ml Q4H PRN Administration COUGH Guaifenesin 1,200 mg 07/23/17 10:06 07/24/17 14:05 Mucinex* PO 1,200 mg BID PRN Administration COUGH Hydralazine HCl 10 mg 07/23/17 05:20 07/25/17 21:08 Apresoline Iv* IV SLOW PU 10 mg Q4H PRN Administration SBP > 175 Lidocaine 1 patch 07/21/17 03:27 Lidoderm 5% Patch* TRANSDERM DAILY PRN PAIN Lorazepam 0.5 mg 07/22/17 06:23 07/26/17 10:13 Ativan Tab(*) PO 0.5 mg Q6H PRN Administration ANXIETY Losartan Potassium 100 mg 07/21/17 09:00 07/26/17 10:02 Cozaar Tab* PO 100 mg DAILY [facility] Administration Methocarbamol 500 mg 07/21/17 03:27 Robaxin Tab* PO TID PRN SPASMS Mometasone Furoate/Formoterol Fumar 2 puff 07/23/17 11:00 07/26/17 08:02 Dulera 100/5 Mdi* INH 2 puff BID [facility] Administration Multivitamins/Minerals 1 tab 07/21/17 09:00 07/25/17 08:34 Theragran/Minerals Tab* PO 1 tab EVERY OTHER DAY [facility] Administration Pharmacy Profile Note 0 note 07/21/17 07:00 07/26/17 07:15 Fentanyl Patch Check Q Shift N/A 1 note 0700,1900 [facility] Administration Pharmacy Profile Note 1 note 07/21/17 21:00 Lidocaine Patch Remove* PATCH OFF 2100 PRN IF APPLIED DURING THE DAY Polyethylene Glycol/Electrolytes 17 gm 07/21/17 09:00 07/26/17 10:03 Miralax* PO Not Given DAILY [facility] Prednisone 50 mg 07/27/17 09:00 Deltasone Tab* PO DAILY [facility] Pregabalin 25 mg 07/21/17 09:00 07/26/17 10:02 Lyrica Cap(*) PO 25 mg QAM [facility] Administration Pregabalin 50 mg 07/21/17 21:00 07/25/17 20:56 Lyrica Cap(*) PO 50 mg BEDTIME [facility] Administration Senna 1 tab 07/21/17 09:00 07/26/17 10:03 Senokot Tab* PO 1 tab DAILY [facility] Administration Simvastatin 20 mg 07/23/17 18:00 07/25/17 17:16 Zocor(Nf) PO 20 mg QPM [facility] Administration Tramadol HCl 50 mg 07/21/17 03:27 07/26/17 10:13 Ultram* PO 50 mg Q6H PRN Administration PAIN Vitamin B Complex/Vitamin E 1 tab 07/21/17 09:00 07/26/17 10:01 B Complex-50* PO 1 tab DAILY [facility] Administration Vitamin E 400 unit 07/21/17 09:00 07/26/17 10:01 Vitamin E Cap* PO 400 unit DAILY [facility] Administration Vital Signs Temp Pulse Resp BP Pulse Ox 98.2 F 96 18 135/78 93 07/26/17 15:46 07/26/17 15:46 07/26/17 15:46 07/26/17 15:46 07/26/17 15:46 O/E: Obese f in bed in NAD HEENT: PERRLA, No JVD Lungs: Diminished air entry b/l, no wheeze CVS: S1, S2+, regular Abd: Soft, BS+ Ext: Chronic edema, varicose veins Neuro: No focal defecits Labs: No new labs I/R: 77 y o f with h/o severe COPD, hypoxia, recent compression fracture a/w worsening SOB being treated for acute COPD exacerbation and diastolic CHF Pt improving c/w prednisone taper Azithromycin for 5 day course c/w broncodilators c/w O2 For possible d/c tomorrow, awaiting home care services
[2017-07-26] MEDS: CMCS:Simvastatin TAB(NF) 20 MG TAB PO SCH (17:48)
[2017-07-26] MEDS: guaiFENesin ER TAB 600 MG PO PRN (17:50)
[2017-07-26] MEDS: Albuterol/Ipratropium NEB.SOL* Albuterol 2.5 MG/Ipratropium 0.5 MG 3 ML INH PRN ×2 (19:49)
[2017-07-26] MEDS: Pregabalin CAP(*) 50 MG PO SCH (21:34)
[2017-07-27] MEDS: Albuterol 2.5 MG/3 ML NEB.SOL* (0.083%) INH SCH ×2 (07:22→13:15)
[2017-07-27] MEDS: Mometasone/Formoter 100/5 MDI INH SCH (08:19)
[2017-07-27] MEDS ORDERED: predniSONE TAB* 50 MG PO SCH (09:00)
[2017-07-27] MEDS: fentaNYL Patch Check Q Shift 1 NOTE SCH (09:02)
[2017-07-27] MEDS: Enoxaparin(*) 40 MG/0.4 ML SYR SUBCUT SCH (09:52)
[2017-07-27] MEDS: Calcium/Vitamin D TAB 250/125* TAB PO SCH (09:52)
[2017-07-27] MEDS: Vitamin B Complex TAB PO SCH (09:52)
[2017-07-27] MEDS: Losartan TAB* 25 MG PO SCH (09:53)
[2017-07-27] MEDS: Vitamin E CAP* 400 UNIT PO SCH (09:53)
[2017-07-27] MEDS: Pregabalin CAP(*) 25 MG PO SCH (09:53)
[2017-07-27] MEDS: Ascorbic Acid TAB* 500 MG PO SCH (09:53)
[2017-07-27] MEDS: Polyethylene Glycol 3350* 17 GM PACKET PO SCH (09:54)
[2017-07-27] MEDS: Azithromycin TAB* 250 MG PO SCH (09:54)
[2017-07-27] MEDS: Multivitamins/Minerals TAB PO SCH (09:54)
[2017-07-27] MEDS: Furosemide TAB* 20 MG PO SCH (09:54)
[2017-07-27] MEDS: Senna TAB PO SCH (09:54)
[2017-07-27] MEDS: LORazepam TAB(*) 0.5 MG PO PRN (10:06)
[2017-07-27] MEDS: guaiFENesin ER TAB 600 MG PO PRN (11:58)
[2017-07-27 12:11] VITALS: BP 132/64
--- NOTE | 2017-07-27 21:05 | DS ---
CC: Dr. Sabrina Chester; Echo Rivero NP * DISCHARGE SUMMARY: DATE OF ADMISSION: 07/21/17 DATE OF DISCHARGE: 07/27/17 ADMITTING PHYSICIAN: Dr. Jaylen Uribe. ATTENDING PHYSICIAN: Stewart Angelo MD *(DICTATED BY MICHELLE CHEW) CONSULTATION: Dr. Sabrina Chester. ADMISSION DIAGNOSES: 1. Chronic obstructive pulmonary disease exacerbation. 2. Possible community-acquired pneumonia. 3. Lumbar spine compression fracture. 4. Abdominal aortic aneurysm. 5. Hyponatremia. 6. History of colon cancer. 7. Hypertension. 8. Morbid obesity. DISCHARGE DIAGNOSES: 1. Chronic obstructive pulmonary disease exacerbation. 2. Possible community-acquired pneumonia. 3. Lumbar spine compression fracture. 4. Abdominal aortic aneurysm. 5. Hyponatremia. 6. History of colon cancer. 7. Hypertension. 8. Morbid obesity. PROCEDURES: None. BRIEF MEDICAL HISTORY: Ms. Coburn is a 77-year-old female with past medical history significant for severe COPD for which she has been on home oxygen. She presented to the emergency room on 07/21/17 with complaints of increased dyspnea at rest and shortness of breath. She denied any significant chest pain or palpitation. She denied any fever, but reports that her cough has been worsening over the past couple of days and described it as being dry and nonproductive. She was recently admitted to the hospital on 06/15/17 with shortness of breath and concern for CHF; however, her echo showed an ejection fraction of 50% to 55% and was discharged with a diagnosis of COPD exacerbation. She has been having increasing trouble getting around and breathing at home. She was recently discharged from a residential for which she was in rehabilitation since May due to a back pain related to her lumbar spine compression fracture. Since she got home, she has been experiencing worsening shortness of breath and that has gotten worse for the past couple of days and she presented to the emergency room today for evaluation. Her initial chest x-ray was negative with the exception for some scarring consistent with COPD. She was found to be tachypneic with poor oxygen saturation for which she was admitted to the hospital for a treatment of probable COPD exacerbation. HOSPITAL COURSE: The patient was admitted on 07/21/17 under hospitalist service. She was started on prophylactic antibiotic with azithromycin and Rocephin. She was given a nebulizer treatment and maintained on supplemental oxygen. She had a repeated chest x-ray on the following day that revealed evidence of possible pulmonary congestion for which her dose of Lasix was increased to 20 mg daily instead of every other day. She was closely monitored and she started to experience some improvement on a daily basis. She was ambulatory out of bed and maintained good oxygen saturation. She experienced few episodes of increased anxiety at night that was relieved using Ativan as needed. She continued to improve and foster care social worker were consulted regarding her discharge planning. Also, had a consultation done by Dr. Chester, who usually sees the patient a couple of times a year. Recommendation by Pulmonology was to maintain her on nebulizer and to taper down her prednisone dose as well as continue her long-acting bronchodilator and Mucinex for sputum production. On discharge day, the patient on physical exam appears to be comfortable and in no acute distress. She was sitting on her chair eating breakfast. Her heart was regular in rate and rhythm with no evidence of murmurs or gallops. Lung exam revealed clear lung sounds, decreased slightly at the bases, but no rales, wheezes, or rhonchi noted. Her vitals were stable and she did not experience any fever during her fever. Her oxygen saturation was 95% or more on 2 L via nasal cannula. She will be discharged to home today in a stable condition and she will follow up with her primary care physician in the next week or two. She will also follow up with Dr. Chester on an as-needed basis. DISCHARGE MEDICATIONS: Her discharge medications include: 1. Tylenol 500 mg 2 tablets q.6 hours as needed for pain. 2. Albuterol Ventolin 2 puffs q.4 hours as needed for shortness of breath. 3. DuoNeb 3 mL nebulizer solution four times a day as needed for shortness of breath. 4. Vitamin C 1000 mg p.o. daily. 5. Azithromycin 250 mg p.o. daily x5 days. 6. Symbicort 160/4.5 one puff MDI 2 puffs b.i.d. 7. Calcium carbonate 1 tablet daily. 8. Colace 100 mg p.o. b.i.d. 9. Fentanyl patch 50 mcg per hour transdermally use as prescribed. 10. Lasix 20 mg p.o. daily. 11. Mucinex 600 mg p.o. b.i.d. 12. Avapro 300 mg p.o. daily. 13. Lidocaine patch 5% use as directed. 14. Ativan 0.5 mg p.o. q.6 hours as needed for anxiety. 15. Robaxin 500 mg p.o. t.i.d. 16. MiraLAX 17 g p.o. daily. 17. Prednisone tapered package starting at 40 mg once a day for 2 days, down to 10 mg on day 5, and then stop. 18. Lyrica 25 mg p.o. daily. 19. Senokot 1 tablet daily. 20. Zocor 20 mg p.o. daily. 21. Ultram 50 mg p.o. q.6 hours as needed for pain. 22. Multivitamin 1 tablet daily. MICHELLE CHEW [id number]/[facility] #: [id number]
== END 2017-07-27 13:35 | disposition home or self-care (01) | DRG 193 ==
LOC: ED 00:33 → MEDTELE 03:23 → OBSVTOIN 12:21 → MEDTELE 07-24 00:27 → MED 07-25 23:26
PROVIDERS: ADMIT Internal Medicine; ATTEND Internal Medicine
DX: J18.9 Pneumonia, unspecified organism (principal); I50.33 Acute on chronic diastolic (congestive) heart failure; J44.1 Chronic obstructive pulmonary disease with (acute) exacerbation; E87.1 Hypo-osmolality and hyponatremia; M48.56XA Collapsed vertebra, not elsewhere classified, lumbar region, initial encounter for fracture; J44.0 Chronic obstructive pulmonary disease with (acute) lower respiratory infection; M19.90 Unspecified osteoarthritis, unspecified site; M81.0 Age-related osteoporosis without current pathological fracture; I71.4 Abdominal aortic aneurysm, without rupture; G62.9 Polyneuropathy, unspecified; Z96.652 Presence of left artificial knee joint; G43.909 Migraine, unspecified, not intractable, without status migrainosus; E66.01 Morbid (severe) obesity due to excess calories; I11.0 Hypertensive heart disease with heart failure; E78.5 Hyperlipidemia, unspecified; R09.02 Hypoxemia; H26.9 Unspecified cataract; Z92.21 Personal history of antineoplastic chemotherapy; Z82.49 Family history of ischemic heart disease and other diseases of the circulatory system; Z99.81 Dependence on supplemental oxygen; Z88.5 Allergy status to narcotic agent; Z88.0 Allergy status to penicillin; Z91.018 Allergy to other foods; Z85.038 Personal history of other malignant neoplasm of large intestine; Z88.8 Allergy status to other drugs, medicaments and biological substances; Z72.89 Other problems related to lifestyle; Z87.891 Personal history of nicotine dependence; Z90.49 Acquired absence of other specified parts of digestive tract; Z80.1 Family history of malignant neoplasm of trachea, bronchus and lung; Z80.0 Family history of malignant neoplasm of digestive organs; Z79.52 Long term (current) use of systemic steroids; Z68.37 Body mass index [BMI] 37.0-37.9, adult
CPT/HCPCS: 36415; 71045; 80048; 80053; 83605; 83880; 84484; 85025; 85610; 85730; 86140; 87040; 87070; 87077; 87205; 93005; 94640; 94667; 94760; 99285; A9270-GY; G0378; G8978-GP-CJ; G8979-GP-CI; G8987-GO-CI; G8988-GO-CI; G8989-GO-CI; J0360; J0456; J0696; J1650; J1940; J2920; J3475; J7512

== ENCOUNTER 2017-09-18 15:06 | Emergency (ER) | payer MEDICARE, BC ==
--- OUTSIDE RECORDS SUMMARY | 2017-09-18 15:16 | XMS REPORT ---
:1940 External Reference #:[id number] Author Organization [facility] Address [address] [address] Phone [phone] Care Team Providers Name Role Phone Angie Zimmer MD Primary Care Physician Unavailable Payers Type Date Identification Numbers Payment Provider Subscriber Medicare Primary Effective: Policy Number: Medicare Francisca Coburn 2005 [id number] PayID: [id number] [address] [place] [address] Medigap Part B Effective: Policy Number: BS Facets Francisca Reyeslavonne 2011 [id number] PayID: [id number] [address] [address] [place] [address] Problems Date Description Provider Status Onset: 02/08/2011 [...] Family History Date Family Member(s) Problem(s) Comments General Hypertension General Stroke General Aortic Aneurysm Father due to Pancreatic Cancer () - pt not sure it was pancreatic age 78 Father Cancer Mother due to Abdominal () - age 72 Aneurysm Mother Aortic Aneurysm abdominal Siblings 1 1 Sister - HTN, Heart Failure Age 69 Social History Type Date Description Comments Marital Status Lives With Alone 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 Cigarette Use Quit - Age 64 ETOH Use Rarely consumes alcohol Smoking Patient is a former smoker Recreational Drug Use Denies Drug Use Daily Caffeine Consumes on average 1 cup of regular coffee per day Exercise Type/Frequency Exercises regularly twice a week workout routine, PT Allergies, Adverse Reactions, Alerts Date Description Reaction Status Severity Comments 01/22/2007 PCN active 01/22/2007 Codeine active 01/22/2007 statins active muscles aches 02/12/2014 Iodinated Diagnostic active Agents 08/31/2017 Pineapple Allergenic active pineapple, tongue Extract swells Medications Medication Date Status Form Strength Qnty SIG Indications Ordering Provider Irbesartan 08/22/ Active Tablets 300mg 30tabs 1 by mouth Echo 2017 every day Varn, N.P. Proair HFA 08/14/ Active Aerosol 108(90Base 25.5gm 1 puff Sabrina 2017 ) mcg/Act every 6 Nemo, hours as MD needed Nebulizer 07/13/ Active Device 1units use three Echo 2018 times a day Varn, as needed N.P. Nebulizer 07/13/ Active Kit 1units use three Echo Kit/Tubing/Mout 2018 times a day Varn, hpiece as needed N.P. Ipratropium 07/13/ Active Solution 0.5-2.5(3) 180ml 1 vial in Echo [place]/Albuter 2018 mg/3ML nebulizer Varn, ol Sulfate three times N.P. a day as needed for asthma(not taking) Multivitamins 02/06/ Active Capsules 1 by mouth Unknown 2015 every day Symbicort 03/31/ Active Aerosol 160-4.5mcg 30.6un Inhale Two J44.9 Sabrina 2015 /Act its Puffs By Nemo, Mouth Twice MD A Day Oxygen 09/28/ Active Misc 1units please use R09.02 Sabrina 2014 o2 at 4 Nemo, litres/min during exertion Lyrica 04/10/ Active Capsules 25mg 60caps 25 mg in Unknown 2013 the morning, and 50 mg at night Prolia 08/26/ Active Solution 60mg/ml 60mg 60 mg sc M81.0 2013 q6mon Varn, N.P. Z92.29 Clindamycin HCL 05/09/2013 Active Capsules 300mg 2caps 2 tabs one Dirk hour prior to Tomas, dental work M.D. Vitamin B 01/10/2013 Active Capsules 1 po qd Unknown Complex Simvastatin 01/20/2011 Active Tablets 20mg 90tabs take one Alexi E. tablet by Judy, mouth every M.D. evening Vitamin E Active Capsules 100Unit 1 po qd Unknown Vitamin D-400 Active Tablets 400Unit 60tabs 1 by mouth Unknown every day Colace Active Capsules 100mg 60caps 1 by mouth qd Unknown Vitamin C Active Capsules 1,000mg 1 by mouth Unknown every day Lasix Active Tablets 20mg 1 by mouth Unknown every day Lorazepam Active Tablets 0.5mg 1 po tid prn Unknown anxiety Senna Laxative Active Tablets 8.6mg 1 po hs prn Unknown Calcium 500/D Active Chewtabs 500-400 1 po qd Unknown mg-Unit Albuterol Active Nebulizer (5mg/ML 2 puffs every Unknown Sulfate ) 0.5% 12 hours Claritin Active Capsules 10mg 1 by mouth Unknown every dayprn Advil Active 400 mg po prn Unknown Irbesartan 08/13/2017 - Hx Tablets 150mg 30tabs 1 by mouth Echo 08/22/2017 every day Varn, N.P. Irbesartan 08/05/2017 - Hx Tablets 300mg 30tabs 1 by mouth Echo 08/13/2017 daily Varn, N.P. Irbesartan 08/03/2017 - Hx Tablets 150mg 90tabs 1 by mouth Echo 08/05/2017 every day Varn, N.P. Fentanyl 08/03/2017 - Hx Patches 72HR 37.5mcg 10units Apply one M5 Echo 08/13/2017 /HR patch every 3 4. Varn, N.P. days for back 5 pain Methocarbamol 05/16/2017 - Hx Tablets 750mg 60tabs take 1 tablet M5 Sundar 05/22/2017 every six 4. UNIQUE Mendiola hours as 5 needed for pain. Salsalate 05/16/2017 - Hx Tablets 500mg 30tabs one tablet M5 Sundar 06/24/2017 twice daily 4. UNIQUE Mendiola as needed 5 with food Hydrocodone-Christian 05/16/2017 - Hx Tablets 5-325mg 30tabs take 1 tablet M5 Sundar taminophen 06/24/2017 every 8 hours 4. UNIQUE Mendiola for pain. 5 Zostavax 08/29/2016 - Hx Suspension [id number] Alexi Escalera 05/16/2017 Rec t/0.65M 0 Elliot Kim M.D. Centrum Silver 02/07/2016 - Hx Tablets 1 po qd Unknown 02/07/2016 Acetaminophen 02/07/2016 - Hx Capsules 500mg 2 by mouth Unknown 06/24/2017 twice a day as needed Fentanyl 03/25/2014 - Hx Patches 72HR 25mcg/H 5units apply one Alexi Escalera 08/27/2014 R patch once Judy, every 3 days M.D. [place] 03/13/2014 - Hx Tablets 5-325mg 30tabs 1-2 by mouth Dirk 04/10/2014 every 4 to 6 Tomas, hours as M.D. needed Macrobid 02/16/2014 - Hx Capsules 100mg 10caps 1 tab q12hr x Dirk 08/27/2014 5 days Tomas, M.D. [place] 02/14/2014 - Hx Tablets 5-325mg 100tabs 1 by mouth Dirk 08/27/2014 every 6 Tomas, hours as M.D. needed for pain try to use less and less as soon as possible Ventolin HFA 02/04/2014 - Hx Aerosol 108(90B 1units 2 puffs by Thuan 02/07/2016 ase) mouth four Flowers, CLIENT RELATIONSHIP CONSULTANT mcg/Act times a day as needed Proair [...] two Thuan 03/31/2015 cg/Act puffs into Flowers, CLIENT RELATIONSHIP CONSULTANT lungs twice a day Zithromax Z-Arnoldo 06/22/2009 [...] qd Toi Forte 02/11/2009 Abram Escalera MD Calcium + D 07/29/2008 - Hx Tablets 600mg 1 po qd Alexi Escalera 08/30/2017 Yolande Kim Vitamin C 07/29/2008 - Hx Tablets 1000mg 1 po qd Alexi Escalera 02/07/2016 Yolande Kim Oxaliplatin 07/29/2008 - Hx Every other Alexi Canela. 02/11/2009 week Yolande Kim Fluorouracil 07/29/2008 - Hx Solution ?mg. Every other Alexi EDeep 02/11/2009 week Yolande Kim Leucovorin 07/29/2008 - Hx Solution ?mg Every other Alexi EDeep Calcium 01/18/2011 week Yolande Kim Albuterol 07/29/2008 - Hx 1MonthS 2 puffs up to Alexi Escalera Inhaler 08/25/2013 upply four times a luiz Kim by mouth M.DDeep as needed Procardia XL [...] Tablets 60mg 180tabs 1 PO bid prn Jo Ann, 07/24/2007 MD Rangel Centrum Silver - Hx Tablets 1 PO qd Jo Ann, 07/29/2008 MD Rangel Proair HFA - Hx Aerosol 90mcg/A 1units 2 puffs po Alexi EDeep (Albuterol) 07/29/2008 ct qidprn Yolande Kim Aspirin - Hx Tablets 81mg 100tabs 1 [...] every 8 hours as needed for pain Tramadol - Hx Unknown 08/03/2017 Robaxin - Hx Unknown 08/03/2017 Lasix - Hx Unknown 08/05/2017 Prednisone - Hx Unknown 08/03/2017 Lidocaine Patch - Hx Unknown 08/03/2017 Acetaminophen - Hx Tablets 500mg 2 tablets q 6 Unknown 08/30/2017 hrs as needed.for pain Lidoderm - Hx Patches 5% 1 patch q 12 Unknown 08/13/2017 hrs Miralax - Hx Powder [id number] 17 gm every Unknown 08/13/2017 day mixed w/ 8 oz water/juice as needed Tramadol HCL - Hx Tablets 50mg 1 tablet Unknown 08/13/2017 three to four times daily as needed Medications Administered in Office Medication Date Status Form Strength Qnty SIG Indications Ordering Provider Prolia Administered Injection Nurse Visit Injection, 017 A Denosumab, 1MG Prolia Administered Injection Alexi E. Injection, 016 Carly Kim 1MG Yolande Prolia Administered Injection Nurse Visit Injection, 016 C Denosumab, 1MG Influenza Administered Injection Unknown Virus Vaccine 015 Prolia Administered Injection Nurse Visit Injection, 015 C Denosumab, 1MG Prolia Administered Injection Alexi E. Injection, 015 Judy, Denosumab, 1MG M.DDeep Prolia Administered Injection Nurse Visit Injection, 014 Tburg Denosumab, 1MG Immunizations CPT Code Status Date Vaccine Lot # [id number] Given 12/27/2015 Influenza Virus Vaccine, Quadrivalent, Split, Preservative Free 48534 Given 01/28/2015 Influenza Virus 3Yrs & Over 83312 Given 02/04/2014 Flu Vaccine Split Virus Preservative Free For [id number] Indiv 3Yr Older 73724 Given 08/25/2013 Pneumococcal Conjugate Vaccine 13 Valent For [id number] Intramuscular Use [id number] Given 01/18/2011 Fluzone Vaccine [id number] 22819 Given 02/04/2010 Influenza Virus 3Yrs & Over [id number] 88053 Given 04/21/2009 Influenza Virus Vaccine, Pandemic Formulation 68808 Given 01/29/2008 Influenza Virus 3Yrs & Over 91959 Given 01/29/2008 Influenza Virus 3Yrs & Over 84936 Given 07/24/2007 Pneumonia Vaccine [id number] 33007 Given 07/24/2007 Tetanus And Diptheria (Td) For Adult Use Preservative Free 54054 Given 07/24/2007 Tetanus And Diptheria (Td) For Adult Use Preservative Free 13481 Given 01/22/2007 Influenza Virus 3Yrs & Over 67774 Given 01/22/2007 Influenza Virus 3Yrs & Over 22021 Vital Signs Date Vital Result Comment 08/31/2017 Height 63.75 inches 5'3.75" Weight 205.00 lb per pt Heart Rate 84 /min BP Systolic 126 mmHg Lue lrg cuff BP Diastolic 70 mmHg Lue lrg cuff BP Systolic Sitting 122 mmHg Rue lrg cuff BP Diastolic Sitting 68 mmHg Rue lrg cuff Respiratory Rate 18 /min O2 % BldC Oximetry 95 % on 2 L NC BMI (Body Mass Index) 35.5 kg/m2 08/14/2017 Height 63.75 inches 5'3.75" Weight 205.00 lb Heart Rate 92 /min BP Systolic Sitting 112 mmHg BP Diastolic Sitting 66 mmHg Respiratory Rate 14 /min O2 % BldC Oximetry 92 % on 2L BMI (Body Mass Index) 35.5 kg/m2 08/03/2017 Weight 207.00 lb Heart Rate 85 /min BP Systolic 138 mmHg BP Diastolic 80 mmHg Body Temperature 98.9 F O2 % BldC Oximetry 95 % 06/25/2017 Height 63 inches 5'3" Weight 215.00 [...] Test Date Test Result H/L Range Note Basic Metabolic Panel 08/07/2017 Sodium 136 mmol/L Low 139-145 Potassium 4.0 mmol/L 3.5-5.0 Chloride 99 mmol/L Low 101-111 Co2 Carbon Dioxide 31 mmol/L 22-32 Anion Gap 6 mmol/L 2-11 Glucose 116 mg/dL High 70-100 Blood Urea Nitrogen 17 mg/dL 6-24 Creatinine 0.84 mg/dL 0.51-0.95 BUN/Creatinine Ratio 20.2 High 8-20 Calcium 9.0 mg/dL 8.6-10.3 Egfr Non- 65.7 >60 Egfr 84.6 >60 1 Laboratory test finding 08/07/2017 C Reactive Protein 65.53 mg/L High &lt ; 5.00 2 CBC Auto Diff 07/21/2017 White Blood Count 6.7 10^3/uL 3.5-10.8 Red Blood Count 4.16 10^6/uL 4.0-5.4 Hemoglobin 13.2 g/dL 12.0-16.0 Hematocrit 39 % 35-47 Mean Corpuscular Volume 93 fL 80-97 Mean Corpuscular Hemoglobin 32 pg High 27-31 Mean Corpuscular HGB Conc 34 g/dL 31-36 Red Cell Distribution Width 13 % 10.5-15 Platelet Count 258 10^3/uL 150-450 Mean Platelet Volume 8.2 um3 7.4-10.4 Abs Neutrophils 4.2 10^3/uL 1.5-7.7 Abs Lymphocytes 0.8 10^3/uL Low 1.0-4.8 Abs Monocytes 1.5 10^3/uL High 0-0.8 Abs Eosinophils 0.2 10^3/uL 0-0.6 Abs Basophils 0.1 10^3/uL 0-0.2 Abs Nucleated RBC 0 10^3/uL Granulocyte % 62.5 % 38-83 Lymphocyte % 11.3 % Low 25-47 Monocyte % 21.9 % High 0-7 Eosinophil % 3.5 % 0-6 Basophil % 0.8 % 0-2 Nucleated Red Blood Cells % 0.1 Laboratory test finding 07/21/2017 Lactic Acid 1.2 mmol/L 0.5-2.0 3 Comp Metabolic Panel 07/21/2017 Sodium 133 mmol/L Low 139-145 Potassium 4.5 mmol/L 3.5-5.0 Chloride 94 mmol/L Low 101-111 Co2 Carbon Dioxide 32 mmol/L 22-32 Anion Gap 7 mmol/L 2-11 Glucose 107 mg/dL High 70-100 Blood Urea Nitrogen 16 mg/dL 6-24 Creatinine 0.85 mg/dL 0.51-0.95 BUN/Creatinine Ratio 18.8 8-20 Calcium 9.5 mg/dL 8.6-10.3 Total Protein 6.7 g/dL 6.4-8.9 Albumin 3.7 g/dL 3.2-5.2 Globulin 3.0 g/dL 2-4 Albumin/Globulin Ratio 1.2 1-3 Total Bilirubin 0.60 mg/dL 0.2-1.0 Alkaline Phosphatase 97 U/L 34-104 Alt 13 U/L 7-52 Ast 20 U/L 13-39 Egfr Non- 64.9 >60 Egfr 83.4 >60 4 Laboratory test finding 07/21/2017 Troponin-I (TnI) 0.03 ng/mL <0.04 C Reactive Protein 43.52 mg/L High < 5.00 5 B-Type Natriuretic Peptide BNP 87 pg/mL 6 Inr/Protime 07/21/2017 Inr 0.95 0.77-1.02 Laboratory test finding 07/21/2017 Partial Thrombo Time 37.8 seconds High 26.0-36.3 PTT Rapid Influenza A & 06/15/2017 Influenza A Molecular NEGATIVE Negative 7 B Molecular Influenza B Molecular NEGATIVE Negative Laboratory test 06/15/2017 Rapid Influenza A B SEE RESULT BELOW 8 finding Antigen Inr/Protime 06/15/2017 Inr 0.98 0.77-1.02 Comp Metabolic Panel 06/15/2017 Sodium 127 mmol/L [...] Egfr Non- 73.8 >60 Egfr 94.9 >60 9 Laboratory test finding 06/15/2017 C Reactive Protein 31.14 mg/L High &lt ; 5.00 10 Troponin-I (TnI) 0.05 ng/mL High <0.04 11 B-Type Natriuretic Peptide BNP 65 pg/mL 12 Lactic Acid 1.2 mmol/L 0.5-2.0 13 CBC Auto Diff 06/15/2017 White Blood Count [...] Color Yellow Urine Appearance Clear Urine Specific [place] 1.009 Low 1.010-1.030 Urine pH 8.0 5-9 Urine Urobilinogen Negative Negative Urine Ketones Negative Negative Urine Protein Negative Negative Urine Leukocytes Negative Negative Urine Blood Negative Negative Urine Nitrite Negative Negative Urine Bilirubin Negative Negative Urine Glucose Negative Negative CBC Auto Diff 05/29/2017 White Blood Count [...] 0-2 Nucleated Red Blood Cells % 0 Comp Metabolic Panel 05/29/2017 Sodium 125 mmol/L [...] Egfr Non- 71.6 >60 Egfr 92.1 >60 14 Laboratory test finding 05/29/2017 Amylase 55 U/L 29-103 Lipase 38 U/L 11.0-82.0 C Reactive Protein 3.25 mg/L < 5.00 15 Comp Metabolic Panel 03/27/2017 Sodium 137 mmol/L [...] Egfr Non- 58.5 >60 Egfr 75.2 >60 16 Lipid Profile (Trig/Chol/HDL) 03/27/2017 Triglycerides 158 mg/dL 17 Cholesterol 194 mg/dL 18 HDL Cholesterol 54.9 mg/dL 19 LDL Cholesterol 108 mg/dL 20 Lipid Profile (Trig/Chol/HDL) 03/28/2016 Triglycerides 200 mg/dL 21 Cholesterol 198 mg/dL 22 HDL Cholesterol 46.2 mg/dL 23 LDL Cholesterol 112 mg/dL 24 Comp Metabolic Panel 03/28/2016 Sodium 135 mmol/L [...] Egfr Non- 57.9 >60 Egfr 74.5 >60 25 Comp Metabolic Panel 04/01/2015 Sodium 130 mmol/L [...] Egfr Non- 50.5 >60 Egfr 65.0 >60 26 Lipid Profile (Trig/Chol/HDL) 04/01/2015 Triglycerides 231 mg/dL 27 Cholesterol 195 mg/dL 28 HDL Cholesterol 45.1 mg/dL 29 LDL Cholesterol 104 mg/dL 30 Urinalysis Profile 02/12/2014 Urine Color Rosio Urine Appearance Cloudy Urine Specific [place] 1.017 1.010-1.030 Urine pH 7.0 5-9 Urine Urobilinogen Negative Negative Urine Ketones Negative Negative Urine Protein Negative Negative Urine Leukocytes Negative Negative Urine Blood Negative Negative * * Negative 31 Urine Nitrite Negative Negative Urine Bilirubin Negative Negative Urine Glucose Negative Negative Urine Culture And Sensitivities 02/12/2014 Urine Culture (SEE NOTE) 32 Basic Metabolic Panel 02/11/2014 Sodium 131 mmol/L Low 133-145 33 Potassium 4.8 mmol/L 3.7-5.6 33 Chloride 96 mmol/L Low 101-111 33 Co2 Carbon Dioxide 29 mmol/L 22-32 33 Anion Gap 6 mmol/L 2-11 33 Glucose 68 mg/dL Low 70-100 33 Blood Urea Nitrogen 16 mg/dL 6-24 33 Creatinine 0.85 mg/dL 0.51-0.95 33 BUN/Creatinine Ratio 18.8 8-20 33 Calcium 9.9 mg/dL 8.6-10.3 33 Egfr Non- 65.4 >60 33 Egfr 84.1 >60 33, 34 Type & Screen 02/11/2014 Patient Blood Type O Positive 33 Antibody Screen NEGATIVE 33 Inr/Protime 02/11/2014 Inr 0.92 0.85-1.06 33 CBC No Diff 02/11/2014 White Blood Count 8.4 10^3/uL 4.8-10.8 33 Red Blood Count 4.77 10^6/uL 4.0-5.4 33 Hemoglobin 15.1 g/dL 12.0-16.0 33 Hematocrit 44 % 35-47 33 Mean Corpuscular Volume 93 fL 80-97 33 Mean Corpuscular Hemoglobin 32 pg High 27-31 33 Mean Corpuscular HGB Conc 34 g/dL 31-36 33 Red Cell Distribution Width 13 % 10.5-15 33 Platelet Count 261 10^3/uL 150-450 33 Mean Platelet Volume 9 um3 7.4-10.4 33 Lipid Profile (Trig/Chol/HDL) 08/18/2013 Triglycerides 186 mg/dL 35, 36 Cholesterol 158 mg/dL 35, 37 HDL Cholesterol 41.5 mg/dL 35, 38 LDL Cholesterol 79 mg/dL 35, 39 Comp Metabolic Panel 08/18/2013 Sodium 132 mmol/L Low 133-145 35 Potassium 4.3 mmol/L 3.7-5.6 35 Chloride 97 mmol/L Low 101-111 35 Co2 Carbon Dioxide 26 mmol/L 22-32 35 Anion Gap 9 mmol/L 2-11 35 Glucose 95 mg/dL 70-100 35 Blood Urea Nitrogen 16 mg/dL 6-24 35 Creatinine 0.90 mg/dL 0.51-0.95 35 BUN/Creatinine Ratio 17.8 8-20 35 Calcium 9.4 mg/dL 8.6-10.3 35 Total Protein 6.8 g/dL 6.4-8.9 35 Albumin 4.4 g/dL 3.2-5.2 35 Globulin 2.4 g/dL 2-4 35 Albumin/Globulin Ratio 1.8 1-3 35 Total Bilirubin 0.60 mg/dL 0.2-1.0 35 Alkaline Phosphatase 58 U/L 34-104 35 Alt 13 U/L 7-52 35 Ast 21 U/L 13-39 35 Egfr Non- 61.4 >60 35 Egfr 78.9 >60 35, 40 Vitamin D, 25 Hydroxy 08/18/2013 25-Hydroxy Vitamin D2 <4.0 ng/mL 35 25-Hydroxy Vitamin D3 44 ng/mL 35 25-Hydroxy Vitamin D Total 44 ng/mL 35, 41 Laboratory test finding 10/11/2012 Inr 1.82 High [...] Egfr Non- 44.2 >60 Egfr 56.8 >60 42 Laboratory test finding 09/12/2012 Troponin I 0.02 ng/mL 0-0.06 43 Type & Screen 09/12/2012 Patient Blood Type O Positive Antibody Screen NEGATIVE Lipid Panel - [facility] 08/19/2012 Creatine Kinase 293 U/L High 0-200 44 Comp Metabolic Panel 08/19/2012 Sodium 133 mmol/L [...] Egfr Non- 54.5 >60 Egfr 70.1 >60 45 Lipid Profile (Trig/Chol/HDL) 08/19/2012 Triglycerides 203 mg/dL High 40- 200 Cholesterol 173 mg/dL Less than 200 HDL Cholesterol 46 mg/dL 40-60 46 Cholesterol/HDL Ratio 3.8 Average 1-4.44 LDL Cholesterol 86.4 mg/dL Less Than 100 47 Laboratory test 08/19/2012 Hemoglobin A1c 5.5 % Less than 6.0 48 finding Surgical Pathology 03/14/2012 S RUN DATE: 49 03/18/ <SEE NOTE> Lipid Profile 08/17/2011 Triglyceride 254 mg/dL High 40-200 (Trig/Chol/HDL) Cholesterol 173 mg/dL Less Than 200 50 High Density Lipoprotein 42 mg/dL 40-60 51 Cholesterol/HDL Ratio 4.12 AVERAGE 1-4.44 Low Density Lipoprotein 80 mg/dL Less Than 100 52 Comp Metabolic Panel 08/17/2011 Sodium 135 mmol/L 135-145 Potassium 4.3 mmol/L 3.5-5.0 Chloride 101 mmol/L 101-111 Co2 (Carbon Dioxide) 29.0 mmol/L 22-32 Anion Gap 5.0 mmol/L 2-11 53 Glucose 99 mg/dL 70-100 BUN 17 mg/dL 6-24 Creatinine 1.0 mg/dL 0.50-1.40 One Over Creatinine 1.00 BUN/Creatinine Ratio 17.0 8-20 Calcium 9.0 mg/dL 8.1-9.9 Total Protein 6.7 GM/DL 6.2-8.1 Albumin 4.0 GM/DL 3.2-5.2 Globulin 2.7 GM/DL 2-4 Albumin/Globulin Ratio 1.5 1-3 Bilirubin Total 0.8 mg/dL 0.4-1.5 54 Alkaline Phosphatase 55 U/L 30-110 Alt (SGPT) 23 U/L 14-54 Ast (Sgot) 29 U/L 12-42 eGFR Non- 54.7 > 60 eGFR 70.3 > 60 55 Laboratory test finding 08/17/2011 Hemoglobin A1c 6.3 % High Less Than 6.0 56 Laboratory test finding 04/04/2011 Alt (SGPT) 23 U/L 14-54 Alkaline Phosphatase 04/04/2011 Alkaline Phosphatase,S 62 U/L 55 - 142 57 Isoenzyme Liver 1% 51.6 % 27.8-76.3 Liver 1 32.0 IU/L 16.2-70.2 Liver 2% 5.6 % 0.0-8.0 Liver 2 3.5 IU/L 0.0-5.8 Bone % 42.8 % 19.1-67.7 Bone 26.5 IU/L 12.1-42.7 Intestine % 0.0 % 0.0-20.6 Intestine 0.0 IU/L 0.0-11.0 Placental NotPresent () 58 Lipid Profile (Trig/Chol/HDL) 04/04/2011 Triglyceride 273 mg/dL High 40- 200 Cholesterol 166 mg/dL Less Than 200 59 High Density Lipoprotein 39 mg/dL Low 40-60 60 Cholesterol/HDL Ratio 4.26 AVERAGE 1-4.44 Low Density Lipoprotein 72 mg/dL Less Than 100 61 Laboratory test finding 01/18/2011 Hemoglobin A1c 5.5 5-7 Lipid Profile (Trig/Chol/HDL) 07/14/2010 Triglyceride 349 mg/dL High 40- 200 Cholesterol 224 mg/dL High Less Than 200 62 High Density Lipoprotein 39 mg/dL Low 40-60 63 Cholesterol/HDL Ratio 5.74 AVERAGE High 1-4.44 Low Density Lipoprotein 115 mg/dL High Less Than 100 64 Basic Metabolic Panel 07/14/2010 Sodium 134 mmol/L Low 135-145 Potassium 4.5 mmol/L 3.5-5.0 Chloride 100 mmol/L Low 101-111 Co2 (Carbon Dioxide) 28.0 mmol/L 22-32 Anion Gap 6.0 mmol/L 2-11 65 Glucose 108 mg/dL High 70-100 BUN 15 mg/dL 6-24 Creatinine 1.00 mg/dL 0.50-1.40 One Over Creatinine 1.00 BUN/Creatinine Ratio 15.0 8-20 Calcium 9.8 mg/dL 8.1-9.9 eGFR Non- 54.8 > 60 eGFR 70.5 > 60 66 Laboratory test finding 07/14/2010 TSH 2.93 MIU/ML 0.34-5.60 Comp Metabolic Panel 06/22/2010 Sodium 137 mmol/L 135-145 Potassium 4.2 mmol/L 3.5-5.0 Chloride 100 mmol/L Low 101-111 Co2 (Carbon Dioxide) 29.0 mmol/L 22-32 Anion Gap 8.0 mmol/L 2-11 67 Glucose 137 mg/dL High 70-100 BUN 17 mg/dL 6-24 Creatinine 1.10 mg/dL 0.50-1.40 One Over Creatinine 0.90 BUN/Creatinine Ratio 15.5 8-20 Calcium 9.6 mg/dL 8.1-9.9 Total Protein 7.0 GM/DL 6.2-8.1 Albumin 4.1 GM/DL 3.2-5.2 Globulin 2.9 GM/DL 2-4 Albumin/Globulin Ratio 1.4 1-3 Bilirubin Total 0.7 mg/dL 0.4-1.5 68 Alkaline Phosphatase 54 U/L 30-110 Alt (SGPT) 20 U/L 14-54 Ast (Sgot) 27 U/L 12-42 eGFR Non- 49.1 > 60 eGFR 63.1 > 60 69 CBC With Manual Diff 06/22/2010 White Blood [...] mmol/L 22-32 Anion Gap 7.0 mmol/L 2-11 70 Glucose 141 mg/dL High 70-100 71 BUN 18 mg/dL 6-24 Creatinine 1.40 mg/dL 0.50-1.40 One Over Creatinine 0.70 BUN/Creatinine Ratio 12.9 8-20 Calcium 9.1 mg/dL 8.1-9.9 Total Protein 6.3 GM/DL 6.2-8.1 Albumin 3.4 GM/DL 3.2-5.2 Globulin 2.9 GM/DL 2-4 Albumin/Globulin Ratio 1.2 1-3 Bilirubin Total 0.6 mg/dL 0.4-1.5 72 Alkaline Phosphatase 70 U/L 30-110 Alt (SGPT) 24 U/L 14-54 Ast (Sgot) 25 U/L 12-42 eGFR Non- 39.5 > 60 eGFR 47.8 > 60 73 Laboratory test finding 03/23/2010 Carcino Embryonic 1.99 NG/ML 0-5 74 Antigen Comp Metabolic Panel 12/22/2009 Sodium 134 mmol/L Low 135-145 Potassium 4.6 mmol/L 3.5-5.0 Chloride 96 mmol/L Low 101-111 Co2 (Carbon Dioxide) 30.0 mmol/L 22-32 Anion Gap 8.0 mmol/L 2-11 75 Glucose 67 mg/dL Low 70-100 76 BUN 16 mg/dL 6-24 Creatinine 0.80 mg/dL 0.50-1.40 One Over Creatinine 1.20 BUN/Creatinine Ratio 20.0 8-20 Calcium 9.6 mg/dL 8.1-9.9 Total Protein 6.8 GM/DL 6.2-8.1 Albumin 4.2 GM/DL 3.2-5.2 Globulin 2.6 GM/DL 2-4 Albumin/Globulin Ratio 1.6 1-3 Bilirubin Total 1.1 mg/dL 0.4-1.5 77 Alkaline Phosphatase 60 U/L 30-110 Alt (SGPT) 24 U/L 14-54 Ast (Sgot) 30 U/L 12-42 eGFR Non- 75.6 > 60 eGFR 91.5 > 60 78 Laboratory test finding 12/22/2009 Carcino Embryonic Antigen 2.32 NG/ML 0 -5 79 CBC With Manual Diff 12/22/2009 White Blood [...] Anion Gap 8.0 mmol/L 2-11 80 Glucose 76 mg/dL 70-100 81 BUN 14 mg/dL 6-24 Creatinine 0.90 mg/dL 0.50-1.40 One Over Creatinine 1.10 BUN/Creatinine Ratio 15.6 8-20 Calcium 9.7 mg/dL 8.1-9.9 82 Total Protein 7.1 GM/DL 6.2-8.1 Albumin 3.9 GM/DL 3.2-5.2 Globulin 3.2 GM/DL 2-4 Albumin/Globulin Ratio 1.2 1-3 Bilirubin Total 0.6 mg/dL 0.4-1.5 83 Alkaline Phosphatase 81 U/L 30-110 Alt (SGPT) 21 U/L 14-54 Ast (Sgot) 27 U/L 12-42 eGFR Non- 66.0 > 60 eGFR 79.8 > 60 84 Laboratory test finding 08/03/2009 Carcino Embryonic Antigen 1.48 NG/ML 0 -5 85 CBC With Manual [...] 0-6 Absolute Neutrophil Count 3.3 Anisocytosis SLIGHT Laboratory test finding 04/26/2009 Carcino Embryonic Antigen 1.59 NG/ML 0 -5 86 Comp Metabolic Panel 04/26/2009 Sodium 136 mmol/L 135-145 Potassium 4.5 mmol/L 3.5-5.0 Chloride 99 mmol/L Low 101-111 Co2 (Carbon Dioxide) 29.0 mmol/L 22-32 Anion Gap 8.0 mmol/L 2-11 87 Glucose 68 mg/dL Low 70-100 88 BUN 17 mg/dL 6-24 Creatinine 0.80 mg/dL 0.50-1.40 One Over Creatinine 1.20 BUN/Creatinine Ratio 21.3 High 8-20 Calcium 9.7 mg/dL 8.1-9.9 89 Total Protein 6.9 GM/DL 6.2-8.1 Albumin 4.0 GM/DL 3.2-5.2 Globulin 2.9 GM/DL 2-4 Albumin/Globulin Ratio 1.4 1-3 Bilirubin Total 0.6 mg/dL 0.4-1.5 90 Alkaline Phosphatase 70 U/L 30-110 Alt (SGPT) 26 U/L 14-54 Ast (Sgot) 31 U/L 12-42 eGFR Non- 75.6 > 60 eGFR 91.5 > 60 91 Laboratory test finding 03/31/2009 Vitamin B12 372 pg/mL 180-914 Immunofixation (Electro) Serum 03/31/2009 Albumin 3.43 GM/DL [...] 6.7 GM/DL 6.2-8.1 Spep Comments (SEE NOTE) 92 Serum Immunofixation (SEE NOTE) 93 [place] 03/31/2009 Cary-1 Negative titer <1:240 Cary-2 Negative titer <1:240 Cary-3 Negative titer <1:240 Agna-1 Negative titer <1:240 Cream Maker-1 Negative titer <1:240 Cream Maker-2 Negative titer <1:240 Cream Maker-Tr Negative titer <1:240 Amphiphysin AB Negative titer <1:240 [id number]-Igg Negative titer () 94 Striational AB Negative titer <1:60 95 P/Q-Type Calcium Channel AB 0.00 nmol/L <=0.02 96 N-Type Calcium Channel AB 0.00 nmol/L <=0.03 97 Ach Receptor Binding AB 0.00 nmol/L <=0.02 98 Achr Ganglionic Neuronal AB 0.01 nmol/L <=0.02 99 VGKC AB, Serum 0.00 nmol/L <=0.02 100 Basic Metabolic Panel 03/23/2009 Sodium 140 mmol/L 135-145 Potassium 4.8 mmol/L 3.5-5.0 Chloride 103 mmol/L 101-111 Co2 (Carbon Dioxide) 28.0 mmol/L 22-32 Anion Gap 9.0 mmol/L 2-11 101 Glucose 74 mg/dL 70-100 102 BUN 20 mg/dL 6-24 Creatinine 1.00 mg/dL 0.50-1.40 One Over Creatinine 1.00 BUN/Creatinine Ratio 20.0 8-20 Calcium 9.6 mg/dL 8.1-9.9 103 eGFR Non- 58.4 > 60 eGFR 70.7 > 60 104 CBC With Manual Diff [...] Absolute Neutrophil Count 4.6 RBC Morphology NORMAL Comp Metabolic Panel 01/20/2009 Sodium 137 mmol/L 135-145 Potassium 3.6 mmol/L 3.5-5.0 Chloride 101 mmol/L 101-111 Co2 (Carbon Dioxide) 26.0 mmol/L 22-32 Anion Gap 10.0 mmol/L 2-11 105 Glucose 99 mg/dL 70-100 106 BUN 16 mg/dL 6-24 Creatinine 0.90 mg/dL 0.50-1.40 One Over Creatinine 1.10 BUN/Creatinine Ratio 17.8 8-20 Calcium 9.6 mg/dL 8.1-9.9 107 Total Protein 7.1 GM/DL 6.2-8.1 Albumin 4.1 GM/DL 3.2-5.2 Globulin 3.0 GM/DL 2-4 Albumin/Globulin Ratio 1.4 1-3 Bilirubin Total 0.5 mg/dL 0.4-1.5 108 Alkaline Phosphatase 73 U/L 30-110 Alt (SGPT) 26 U/L 14-54 Ast (Sgot) 34 U/L 12-42 eGFR Non- 66.0 > 60 eGFR 79.8 > 60 109 Iron & Iron Binding Capacity 01/20/2009 Iron Total 91 g/dL 28-170 Unsaturated Iron Binding 287 g/dL Total Iron Binding Capacity 378 g/dL 250-450 % Iron Saturation 24 % 15-55 Laboratory test finding 01/20/2009 Ferritin 65 NG/ML 11.0-307 Vitamin B12 326 pg/mL 180-914 Carcino Embryonic Antigen 1.47 NG/ML 0-5 110 Protein Electrophoresis Serum 01/20/2009 Albumin 3.80 GM/DL [...] 7.3 GM/DL 6.2-8.1 Spep Comments (SEE NOTE) 111 Comp Metabolic Panel 01/20/2009 Sodium 138 mmol/L 135-145 Potassium 3.5 mmol/L 3.5-5.0 Chloride 103 mmol/L 101-111 Co2 (Carbon Dioxide) 27.0 mmol/L 22-32 Anion Gap 8.0 mmol/L 2-11 112 Glucose 100 mg/dL 70-100 113 BUN 15 mg/dL 6-24 Creatinine 1.00 mg/dL 0.50-1.40 One Over Creatinine 1.00 BUN/Creatinine Ratio 15.0 8-20 Calcium 9.4 mg/dL 8.1-9.9 114 Total Protein 7.2 GM/DL 6.2-8.1 Albumin 4.0 GM/DL 3.2-5.2 Globulin 3.2 GM/DL 2-4 Albumin/Globulin Ratio 1.3 1-3 Bilirubin Total 0.7 mg/dL 0.4-1.5 115 Alkaline Phosphatase 74 U/L 30-110 Alt (SGPT) 28 U/L 14-54 Ast (Sgot) 34 U/L 12-42 eGFR Non- 58.4 > 60 eGFR 70.7 > 60 116 Lipid Profile (Trig/Chol/HDL) 01/20/2009 Triglyceride 317 mg/dL High 40- 200 Cholesterol 247 mg/dL High Less Than 200 117 High Density Lipoprotein 35 mg/dL Low 40-60 118 Cholesterol/HDL Ratio 7.06 AVERAGE High 1-4.44 Low Density Lipoprotein 149 mg/dL High Less Than 100 119 Laboratory test 01/20/2009 TSH 3.32 MIU/ML 0.34-5.60 finding Surgical Pathology 03/04/2008 Surgical Pathology 120 <SEE NOTE> Comp Metabolic Panel 03/04/2008 Sodium 134 mmol/L Low 135-145 Potassium 3.6 mmol/L 3.5-5.0 Chloride 98 mmol/L Low 101-111 Co2 (Carbon Dioxide) 30.0 mmol/L 22-32 Anion Gap 6.0 mmol/L 2-11 121 Glucose 83 mg/dL 70-100 122 BUN 7 mg/dL 6-24 Creatinine 0.66 mg/dL 0.50-1.40 One Over Creatinine 1.50 BUN/Creatinine Ratio 10.6 8-20 Calcium 9.2 mg/dL 8.1-9.9 123 Total Protein 7.1 GM/DL 6.2-8.1 Albumin 3.5 GM/DL 3.2-5.2 Globulin 3.6 GM/DL 2-4 Albumin/Globulin Ratio 1.0 1-3 Bilirubin Total 0.6 mg/dL 0.4-1.5 Alkaline Phosphatase 97 U/L 30-110 Alt (SGPT) 15 U/L 14-54 Ast (Sgot) 28 U/L 12-42 Laboratory test finding 03/04/2008 Carcino Embryonic 41.68 NG/ML High 0-5 124 Antigen Iron & Iron Binding 02/27/2008 Iron Total 20 g/dL Low 28-170 125 Capacity Unsaturated Iron Binding 350 g/dL 125 Total Iron Binding Capacity 370 g/dL 250-450 125 % Iron Saturation 5 % Low 15-55 125 Laboratory test finding 02/27/2008 Ferritin < 10 NG/ML Low 11.0-307 125 Erythrocyte Sed Rate 59 MM/HR High 0-40 125 Comp Metabolic Panel 02/27/2008 Sodium 137 mmol/L 135-145 125 Potassium 3.5 mmol/L 3.5-5.0 125 Chloride 101 mmol/L 101-111 125 Co2 (Carbon Dioxide) 27.0 mmol/L 22-32 125 Anion Gap 9.0 mmol/L 2-11 125, 126 Glucose 134 mg/dL High 70-100 125, 127 BUN 11 mg/dL 6-24 125 Creatinine 0.80 mg/dL 0.50-1.40 125 One Over Creatinine 1.20 125 BUN/Creatinine Ratio 13.8 8-20 125 Calcium 9.5 mg/dL 8.1-9.9 125, 128 Total Protein 6.7 GM/DL 6.2-8.1 125 Albumin 3.6 GM/DL 3.2-5.2 125 Globulin 3.1 GM/DL 2-4 125 Albumin/Globulin Ratio 1.2 1-3 125 Bilirubin Total 0.3 mg/dL Low 0.4-1.5 125 Alkaline Phosphatase 105 U/L 30-110 125 Alt (SGPT) 15 U/L 14-54 125 Ast (Sgot) 24 U/L 12-42 125 Protein Electrophoresis Serum 02/27/2008 Albumin 3.04 GM/DL 3.0-4.35 125 Alpha 1 0.20 GM/DL 0.09-0.33 125 Alpha 2 0.98 GM/DL 0.59-1.18 125 Beta 1.08 GM/DL High 0.68-1.02 125 Gamma 1.40 GM/DL 0.76-1.60 125 Albumin % 45.4 % Low 46-63 125 Alpha 1 % 3.0 % 1.2-5.3 125 Alpha 2 % 14.6 % 9-17 125 Beta % 16.1 % High 10-16 125 Gamma % 20.9 % 12-22 125 A/G Ratio 0.8 Low 0.9-2 125 Total Protein 6.7 GM/DL 6.2-8.1 125 Spep Comments (SEE NOTE) 125, 129 CBC With Manual Diff 02/19/2008 White Blood [...] Hypochromasia 2+ Target Cells FEW Stomatocytes FEW Laboratory test finding 02/19/2008 Hemoglobin A1c 5.8 % <6.0 130 Comp Metabolic Panel 01/29/2008 Sodium 139 mmol/L 135-145 Potassium 4.1 mmol/L 3.5-5.0 Chloride 99 mmol/L Low 101-111 Co2 (Carbon Dioxide) 32.0 mmol/L 22-32 Anion Gap 8.0 mmol/L 2-11 131 BUN 13 mg/dL 6-24 Creatinine 0.9 mg/dL 0.5-1.4 One Over Creatinine 1.11 BUN/Creatinine Ratio 14.4 8-20 Calcium 9.4 mg/dL 8.1-9.9 132 Albumin 3.5 GM/DL 3.2-5.2 Globulin 4.0 GM/DL 2-4 Albumin/Globulin Ratio 0.9 Low 1-3 Bilirubin Total 0.5 mg/dL 0.4-1.5 Alkaline Phosphatase 94 U/L 30-110 Alt (SGPT) 14 U/L 14-54 Ast (Sgot) 25 U/L 12-42 Glucose 84 mg/dL 70-100 133 Total Protein 7.5 GM/DL 6.2-8.1 Vitamin D, 25 Hydroxy 01/29/2008 25-Hydroxy Vitamin D2 <4.0 ng/mL () 25-Hydroxy Vitamin D3 35 ng/mL () 25-Hydroxy Vitamin D Total 35 ng/mL () 134 Lipid Profile (Trig/Chol/HDL) 01/29/2008 Triglyceride 311 mg/dL High 40- 200 Cholesterol 226 mg/dL High Less Than 200 135 Cholesterol/HDL Ratio 7.79 AVERAGE High 1-4.44 Low Density Lipoprotein 135 mg/dL High Less Than 100 136 High Density Lipoprotein 29 mg/dL Low 40-60 137 Laboratory test finding 01/29/2008 TSH 1.71 MIU/ML 0.34-5.60 CBC With Manual Diff 01/29/2008 White Blood [...] 6.8 Anisocytosis SLIGHT Laboratory test finding 01/29/2008 Hemoglobin A1c 6.2 % High <6.0 138 1 Because ethnic data is not always [...] 5 Kidney failure <15 (or dialysis) 2 Acute inflammation: >10.00 3 [facility] Severe Sepsis and Septic Shock Management Bundle Measure requires all lactic acids initially measuring >2.0 mmol/L be repeated. 4 Because ethnic data is not always readily [...] 15-29 5 Kidney failure <15 (or dialysis) 5 Acute inflammation: >10.00 6 >100 to <200 pg/mL: likely compensated congestive heart failure (CHF) 200 to 400 pg/mL: likely moderate CHF >400 pg/mL: likely moderate to severe CHF 7 Brick Setter Operator: [id number] SEE RESULT BELOW Name: FRANCISCA COBURN Kesha : [address]: Heirberto Mejias MD Acct: [id number] Unit: [id number] AGE: 77 Location: ED Re06/15/17 SEX: F Status: REG ER SPEC: [id number] JUAN ANTONIO: 06/15/17-5 [facility] DR: Heriberto Mejias MD REQ: [id number] RECD: 06/15/17 STATUS: MARYANN FLORES DR: Echo Rivero CLIENT RELATIONSHIP CONSULTANT _ SOURCE: TIMA SPDES: ORDERED: Flu A B Request Procedure Result Reported Site Rapid Influenza A B Request Final 06/15/17- 1329 ML Specimen received for Influenza A/B Molecular testing * ML - Main Lab . END OF REPORT DEPARTMENT OF PATHOLOGY, [address] [place] [address] Riky Samayoa M.D. Director [facility] # [id number] 9 Because ethnic data is not always [...] 5 Kidney failure <15 (or dialysis) 10 Acute inflammation: >10.00 11 Result TnIDx:0.05 Called to MALLORY at: 13:32:38 by: Read back by: MALLORY 12 >100 to <200 pg/mL: likely compensated congestive heart failure (CHF) 200 to 400 pg/mL: likely moderate CHF >400 pg/mL: likely moderate to severe CHF 13 [facility] Severe Sepsis and Septic Shock Management Bundle Measure requires all lactic acids initially measuring >2.0 mmol/L be repeated. 14 Because ethnic data is not always readily [...] 15-29 5 Kidney failure <15 (or dialysis) 15 Acute inflammation: >10.00 16 Because ethnic data is not always readily [...] 15-29 5 Kidney failure <15 (or dialysis) 17 Desirable: <150 Borderline High: 150-199 High: 200-499 Very High: >500 18 Desirable: <200 Borderline High: 200-239 High: >239 19 Low: <40 Desirable: 40-60 High: >60 20 Desirable: <100 Near Optimal: 100-129 Borderline High: 130-159 High: 160-189 Very High: >189 21 Desirable <150 Borderline high 150-199 High 200-499 Very High >500 22 Desirable <200 Borderline high 200-239 High >239 23 Low <40 Desirable: 40-60 High: >60 24 Desirable: <100 mg/dL Near Optimal: 100-129 mg/dL Borderline High: 130-159 mg/dL High: 160-189 mg/dL Very High: >189 mg/dL 25 Because ethnic data is not always [...] 5 Kidney failure <15 (or dialysis) 26 Because ethnic data is not always readily [...] 15-29 5 Kidney failure <15 (or dialysis) 27 Desirable <150 Borderline high 150-199 High 200-499 Very High >500 28 Desirable <200 Borderline high 200-239 High >239 29 Low <40 Desirable: 40-60 High: >60 30 Desirable: <100 mg/dL Near Optimal: 100-129 mg/dL Borderline High: 130-159 mg/dL High: 160-189 mg/dL Very High: >189 mg/dL 31 *Ascorbic acid is present which may interfere with detection of blood. 32 RUN DATE: 02/14/14 [facility] LAB LIVE PAGE 1 RUN TIME: [address] [place] [address] Specimen Inquiry Name: FRANCISCA COBURN : [address]: Jose Marin MD Acct: [id number] Unit: [id number] AGE: 74 Location: [facility] Re02/12/14 SEX: F Status: REG REF SPEC: [id number] JUAN ANTONIO: 02/12/14-1200 [facility] DR: Jose Marin MD REQ: [id number] RECD: 02/12/141253 STATUS: MARYANN FLORES DR: Alexi Kim III, MD _ SOURCE: URINE SPDESC: ORDERED: Urine Culture Procedure Result Verified Site Urine Culture Final 02/14/14- 0807 ML Organism 1 ESCHERICHIA COLI [place] Count 75-100,000 (Many) CFU/ML Organism 2 ENTEROCOCCUS SPECIES GP D [place] Count >100,000 (Many) CFU/ML 1. ESCHERICHIA COLI [...] performed at Main Lab DEPARTMENT OF PATHOLOGY, [address] [place] [address] Riky Samayoa M.D. Director [facility] # [id number] RUN DATE: 02/14/14 [facility] LAB LIVE PAGE 2 RUN TIME: [address] [place] [address] Specimen Inquiry Patient: FRANCISCA COBURN [id number] (Continued) Specimen: [id number] Collected: 02/12/14-1199 Received: 02/12/14-1250 (Continued) Procedure Result Verified Site Urine Culture [...] These antibiotics are not available in the [facility] Formulary Contact the Microbiology Department for any additional antibiotic reporting. Contact the Microbiology Department for any additional antibiotic reporting. END OF REPORT * ML=Testing performed at Main Lab DEPARTMENT OF PATHOLOGY, [address] [place] [address] Riky Samayoa M.D. Director [facility] # [id number] SURGERY DATE: 02/17/14 34 Because ethnic data is not always [...] 5 Kidney failure <15 (or dialysis) 35 PT IS FASTING 36 Desirable <150 Borderline high 150-199 High 200-499 Very High >500 37 Desirable <200 Borderline high 200-239 High >239 38 Low <40 Desirable: 40-60 High: >60 39 Desirable <100 Near Optimal 100-129 Borderline high 130-159 High 160-189 Very High >189 40 Because ethnic data is not always [...] 5 Kidney failure <15 (or dialysis) 41 -- REFERENCE VALUE -- 25-HYDROXY D TOTAL (D2+D3) Optimum levels in the healthy population are 20-50, patients with bone disease may benefit from higher levels within this range. Test Performed by: [place] [address] Screw Machine Tool Setter: Souleymane Weinstein III, M.D. 42 Because ethnic data is not always readily [...] 15-29 5 Kidney failure <15 (or dialysis) 43 Reference Range and Interpretation: TnI (ng/mL) Interpretation Less Than 0.06 ng/mL Not supportive of diagnosis of ND 0.06 - 0.50 ng/mL Indeterminate: suggest serial studies if clinically indicated. Greater than 0.5 ng/mL Consistent with diagnosis of ND 44 PT IS FASTING 45 Because ethnic data is not always readily [...] 15-29 5 Kidney failure <15 (or dialysis) 46 HDL Interpretation: Undesirable: High Risk: Less than 40 MG/DL Desirable: Low Risk: Greater than 60 MG/DL 47 LDL Interpretation: Low Risk Optimal Level: LDL Less than 100 MG/DL Near or Above Optimal: LDL 100-129 MG/DL Borderline High Risk: LDL 130-159 MG/DL High Risk: LDL 160-189 MG/DL Very High Risk: LDL Greater than 189 MG/DL 48 Therapeutic target for the treatment of diabetes Mellitus patients is <7% HBA1C, and in selective patients <6.0%.Please refer to [employer] Diabetic care guidelines for further information. 49 RUN DATE: 03/18/12 [facility] LAB LIVE PAGE 1 RUN TIME: [address] [place] [address] Specimen Inquiry Name: FRANCISCA COBURN : [address]: Bj KLEIN,Cuong Be Acct: [id number] Unit: [id number] AGE: 72 Location: [facility] Re03/14/12 SEX: F Status: REG REF SPEC: [id number] JUAN ANTONIO: 03/14/12- SUBM DR: Bj KLEIN, Cuong GibsonDeep REQ: [id number] RECD: 03/15/12 STATUS: ASHLY FLORES DR: Abram Cm MD ENTERED: 03/15/12 SP TYPE: SURGICAL P Judy CHANDLER MD, [facility] _ ORDERED: LEVEL IV/2 FINAL DIAGNOSIS 1. [...] specimen is received in formalin labelled Francisca RebolledoDeep Doe, Rectal Polyp Hot Snare, and consists of a faustin, polypoid fragment measuring 0.7 x 0.5 x 0.3 cm. Submitted entirely, one cassette. CONTINUED ON NEXT PAGE * ML=Testing performed at Main Lab DEPARTMENT OF PATHOLOGY, [facility] [employer] [place], [place] [address] Riky Samayoa M.D. Director [facility] Permit #[id number] RUN DATE: 03/18/12 [facility] LAB LIVE PAGE 2 RUN TIME: [address] [employer] [place], [place] [address] Specimen Inquiry Patient: FRANCISCA COBURN [id number] (Continued) GROSS DESCRIPTION (Continued) Signed (signature on file) Riky Samayoa MD 1404 END OF REPORT * ML=Testing performed at Main Lab DEPARTMENT OF PATHOLOGY, [address] [place] [address] Riky Samayoa M.D. Director [facility] Permit #[id number] 50 CHOLESTEROL INTERPRETATION: Desirable: Less than 200 MG/DL Borderline-High Risk: 200-239 MG/DL High-Risk: 240 MG/DL and over 51 HDL INTERPRETATION: Undesirable: High Risk: Less than 40 MG/DL Desirable: Low Risk: Greater than 60 MG/DL 52 LDL INTERPRETATION: Low Risk Optimal Level: LDL Less than 100 MG/DL Near or Above Optimal: LDL 100-129 MG/DL Borderline High Risk: LDL 130-159 MG/DL High Risk: LDL 160-189 MG/DL Very High Risk: LDL Greater than 189 MG/DL 53 Anion gap measurement may be of limited value in the presence of any alkalosis, especially in a combined acid base disorder. . 54 A metabolite of Naproxen, O-desmethylnaproxen, has been shown to interfere with the Jendrassik-[place] method for measuring total bilirubin. Samples from patients who have taken Naproxen have shown spurious elevation in total bilirubin levels. 55 Because ethnic data is not always readily [...] 15-29 5 Kidney failure <15 (or dialysis) 56 THERAPEUTIC TARGET FOR THE TREATMENT OF DIABETES MELLITUS PATIENTS IS <7% HBA1C, AND IN SELECTIVE PATIENTS <6.0%. PLEASE REFER TO [employer] DIABETIC CARE GUIDELINES FOR FURTHER INFORMATION. 57 Test Performed by: [facility] Dpt of Lab Med and Pathology [address] [place] [address] Screw Machine Tool Setter: Souleymane Weinstein III, M.D. 58 -- REFERENCE VALUE -- Not present Test Performed by: [facility] Dpt of Lab Med and Pathology [address] [place] [address] Screw Machine Tool Setter: Souleymane Weinstein III, M.D. 59 CHOLESTEROL INTERPRETATION: Desirable: Less than 200 MG/DL Borderline-High Risk: 200-239 MG/DL High-Risk: 240 MG/DL and over 60 HDL INTERPRETATION: Undesirable: High Risk: Less than 40 MG/DL Desirable: Low Risk: Greater than 60 MG/DL 61 LDL INTERPRETATION: Low Risk Optimal Level: LDL Less than 100 MG/DL Near or Above Optimal: LDL 100-129 MG/DL Borderline High Risk: LDL 130-159 MG/DL High Risk: LDL 160-189 MG/DL Very High Risk: LDL Greater than 189 MG/DL 62 CHOLESTEROL INTERPRETATION: Desirable: Less than 200 MG/DL Borderline-High Risk: 200-239 MG/DL High-Risk: 240 MG/DL and over 63 HDL INTERPRETATION: Undesirable: High Risk: Less than 40 MG/DL Desirable: Low Risk: Greater than 60 MG/DL 64 LDL INTERPRETATION: Low Risk Optimal Level: LDL Less than 100 MG/DL Near or Above Optimal: LDL 100-129 MG/DL Borderline High Risk: LDL 130-159 MG/DL High Risk: LDL 160-189 MG/DL Very High Risk: LDL Greater than 189 MG/DL 65 Anion gap measurement may be of limited value in the presence of any alkalosis, especially in a combined acid base disorder. . 66 Because ethnic data is not always readily [...] 15-29 5 Kidney failure <15 (or dialysis) 67 Anion gap measurement may be of limited value in the presence of any alkalosis, especially in a combined acid base disorder. . 68 A metabolite of Naproxen, O-desmethylnaproxen, has been shown to interfere with the Jendrassik-[place] method for measuring total bilirubin. Samples from [...] 5 Kidney failure <15 (or dialysis) 70 Anion gap measurement may be of limited value in the presence of any alkalosis, especially in a combined acid base disorder. . 71 Note change in reference range as of 12/05/07. The change was based on recommendations from the [employer]. 72 A metabolite of Naproxen, O-desmethylnaproxen, has been shown to interfere with the Jendrassik-Agusto method for measuring total bilirubin. Samples from patients who have taken Naproxen have shown spurious elevation in total bilirubin levels. 73 Because ethnic data is not always readily [...] 15-29 5 Kidney failure <15 (or dialysis) 74 SMOKING MAY INCREASE VALUES SERUM LEVELS OF CEA MEASURED USING THE [employer] ACCESS IMMUNOASSAY SYSTEM SHOULD NOT BE INTERPRETED ABSOLUTE EVIDENCE OF THE PRESENCE OR ABSENCE OF DISEASE. THE CEA VALUE SHOULD BE USED IN CONJUNCTION WITH OTHER PERTINENT CLINICAL DIAGNOSTIC PROCEDURES. 75 Anion gap measurement may be of limited value in the presence of any alkalosis, especially in a combined acid base disorder. . 76 Note change in reference range as of 12/05/07. The change was based on recommendations from the [employer]. 77 A metabolite of Naproxen, O-desmethylnaproxen, has [...] SERUM LEVELS OF CEA MEASURED USING THE [employer] ACCESS IMMUNOASSAY SYSTEM SHOULD NOT BE INTERPRETED [...] change was based on recommendations from the [employer]. 82 Please note change in [...] WITH OTHER PERTINENT CLINICAL DIAGNOSTIC PROCEDURES. 86 SMOKING MAY INCREASE VALUES SERUM LEVELS OF CEA MEASURED USING THE [employer] ACCESS IMMUNOASSAY SYSTEM SHOULD NOT BE INTERPRETED ABSOLUTE EVIDENCE OF THE PRESENCE OR ABSENCE OF DISEASE. THE CEA VALUE SHOULD BE USED IN CONJUNCTION WITH OTHER PERTINENT CLINICAL DIAGNOSTIC PROCEDURES. 87 Anion gap measurement may be of limited value in the presence of any alkalosis, especially in a combined acid base disorder. . 88 Note change in reference range as of 12/05/07. The change was based on recommendations from the [employer]. 89 Please note change in reference range effective 07 . 90 A metabolite of Naproxen, O-desmethylnaproxen, has been shown to interfere with the Jendrassik-Agusto method for measuring total bilirubin. Samples from patients who have taken Naproxen have shown spurious elevation in total bilirubin levels. 91 Because ethnic data is not always readily [...] 15-29 5 Kidney failure <15 (or dialysis) 92 NORMAL ELECTROPHORETIC PATTERN. 93 NORMAL SERUM IMMUNOFIXATION ELECTROPHORETIC PATTERN. NO MONOCLONAL PROTEIN DETECTED. 94 -- REFERENCE VALUE -- Negative at <1:240 Titers lower than 1:240 may be detectable by recombinant CRMP-5 western blot analysis. CRMP-5 western blot analysis will be done by request on stored serum (held 4 weeks). This supplemental testing is recommended in cases of chorea, vision loss, cranial neuropathy and myelopathy. Contact [facility] Inquiry at [phone] ([id number] [phone])to add-on CRMP-5-IgG Western Blot, S. Test Performed by: [facility] Dpt of Lab Med and Pathology [address] [place] [address] Screw Machine Tool Setter: Souleymane Weinstein III, M.D. 95 Test Performed by: [facility] Dpt of Lab Med and Pathology [address] [place] [address] Screw Machine Tool Setter: Souleymane Weinstein III, M.D. 96 Test Performed by: [facility] Dpt of Lab Med and Pathology [address] [place] [address] Screw Machine Tool Setter: Souleymane Weinstein III, M.D. 97 Test Performed by: [facility] Dpt of Lab Med and Pathology [address] [place] [address] Screw Machine Tool Setter: Souleymane Weinstein III, M.D. 98 Test Performed by: [facility] Dpt of Lab Med and Pathology [address] [place] [address] Screw Machine Tool Setter: Souleymane Weinstein III, M.D. 99 Test Performed by: [facility] Dpt of Lab Med and Pathology [address] [place] [address] Screw Machine Tool Setter: Souleymane Weinstein III, M.D. 100 Test Performed by: [facility] Dpt of Lab Med and Pathology [address] [place] [address] Screw Machine Tool Setter: Souleymane Weinstein III, M.D. 101 Anion gap measurement may be of limited value in the presence of any alkalosis, especially in a combined acid base disorder. . 102 Note change in reference range as of 12/05/07. The change was based on recommendations from the [employer]. 103 Please note change in reference range effective 07 . 104 Because ethnic data is not always [...] 5 Kidney failure <15 (or dialysis) 105 Anion gap measurement may be of limited value in the presence of any alkalosis, especially in a combined acid base disorder. . 106 Note change in reference range as of 12/05/07. The change was based on recommendations from the [employer]. 107 Please note change in reference range effective 07 . 108 A metabolite of Naproxen, O-desmethylnaproxen, has been shown to interfere with the Jendrassik-[place] method for measuring total bilirubin. Samples from patients who have taken Naproxen have shown spurious elevation in total bilirubin levels. 109 Because ethnic data is not always readily [...] 15-29 5 Kidney failure <15 (or dialysis) 110 SMOKING MAY INCREASE VALUES SERUM LEVELS OF CEA MEASURED USING THE [employer] ACCESS IMMUNOASSAY SYSTEM SHOULD NOT BE INTERPRETED ABSOLUTE EVIDENCE OF THE PRESENCE OR ABSENCE OF DISEASE. THE CEA VALUE SHOULD BE USED IN CONJUNCTION WITH OTHER PERTINENT CLINICAL DIAGNOSTIC PROCEDURES. 111 NORMAL ELECTROPHORETIC PATTERN. 112 Anion gap measurement may be of limited value in the presence of any alkalosis, especially in a combined acid base disorder. . 113 Note change in reference range as of 12/05/07. The change was based on recommendations from the [employer]. 114 Please note change in reference range effective 07 . 115 A metabolite of Naproxen, O-desmethylnaproxen, has been shown to interfere with the Jendrassik-Agusto method for measuring total bilirubin. Samples from patients who have taken Naproxen have shown spurious elevation in total bilirubin levels. 116 Because ethnic data is not always readily [...] 15-29 5 Kidney failure <15 (or dialysis) 117 CHOLESTEROL INTERPRETATION: Desirable: Less than 200 MG/DL Borderline-High Risk: 200-239 MG/DL High-Risk: 240 MG/DL and over 118 HDL INTERPRETATION: Undesirable: High Risk: Less than 40 MG/DL Desirable: Low Risk: Greater than 60 MG/DL 119 LDL INTERPRETATION: Low Risk Optimal Level: LDL Less than 100 MG/DL Near or Above Optimal: LDL 100-129 MG/DL Borderline High Risk: LDL 130-159 MG/DL High Risk: LDL 160-189 MG/DL Very High Risk: LDL Greater than 189 MG/DL 120 ----- RUN DATE: 03/05/08 [facility] NMI LIVE PAGE 1 RUN TIME: 1418 Specimen Inquiry RUN USER: INTERFACE -- Name: FRANCISCA COBURN Accgala#: [id number] Status: REG REF Re03/04/08 Age/Sex: 68/F Unit#: [id number] Location: [address] [place] [address]. : 40 -- Specimen: [id number] Spec Date: 03/04/[address]: Joce valdes MD Spec Type: SURGICAL P Received: 03/04/08-0205 Copies to: Alexi Kim III, MD SPECIMEN [...] 03/05/08 1419 -- -- DEPARTMENT OF PATHOLOGY, [address] [place] [address] [facility] Permit #[id number] Riky Samayoa M.D. Director Nghia Vasquez M.D. Garden Equipment Mechanic Dir ricardo -- 121 Anion gap measurement may be of limited value in the presence of any alkalosis, especially in a combined acid base disorder. . 122 Note change in reference range as of 12/05/07. The change was based on recommendations from the [employer]. 123 Please note change in reference range effective 07 . 124 SMOKING MAY INCREASE VALUES SERUM LEVELS OF CEA MEASURED USING THE NAEEM DEEPIKA ACCESS IMMUNOASSAY SYSTEM SHOULD NOT BE INTERPRETED ABSOLUTE EVIDENCE OF THE PRESENCE OR ABSENCE OF DISEASE. THE CEA VALUE SHOULD BE USED IN CONJUNCTION WITH OTHER PERTINENT CLINICAL DIAGNOSTIC PROCEDURES. 125 PATIENT MAY HAVE RESULTS PER DOCTOR'S AUTHORIZATION. Questions regarding this report should be directed to your doctor. 126 Anion gap measurement may be of limited value in the presence of any alkalosis, especially in a combined acid base disorder. . 127 Note change in reference range as of 12/05/07. The change was based on recommendations from the [employer]. 128 Please note change in reference range effective 07 . 129 INCREASED BETA GLOBULIN- CONSISTENT WITH HYPERLIPO- PROTEINEMIA OR IRON DEFICIENCY. 130 THERAPEUTIC TARGET FOR THE TREATMENT OF DIABETES MELLITUS PATIENTS IS <7% HBA1C, AND IN SELECTIVE PATIENTS <6.0%. PLEASE REFER TO [employer] DIABETIC CARE GUIDELINES FOR FURTHER INFORMATION. 131 Anion gap measurement may be of limited value in the presence of any alkalosis, especially in a combined acid base disorder. . 132 Please note change in reference range effective 07 . 133 Note change in reference range as of 12/05/07. The change was based on recommendations from the [employer]. 134 -- REFERENCE VALUE -- 25-HYDROXY D TOTAL (D2+D3) Optimum levels in the normal population are 25-80 Test Performed by: [facility] Dpt of Lab Med and Pathology [address] [place] [id number] Screw Machine Tool Setter: Souleymane Weinstein III, M.D. 135 CHOLESTEROL INTERPRETATION: Desirable: Less than 200 MG/DL Borderline-High Risk: 200-239 MG/DL High-Risk: 240 MG/DL and over 136 LDL INTERPRETATION: Low Risk Optimal Level: LDL Less than 100 MG/DL Near or Above Optimal: LDL 100-129 MG/DL Borderline High Risk: LDL 130-159 MG/DL High Risk: LDL 160-189 MG/DL Very High Risk: LDL Greater than 189 MG/DL 137 HDL INTERPRETATION: Undesirable: High Risk: Less than 40 MG/DL Desirable: Low Risk: Greater than 60 MG/DL 138 THERAPEUTIC TARGET FOR THE TREATMENT OF DIABETES MELLITUS PATIENTS IS <7% HBA1C, AND IN SELECTIVE PATIENTS <6.0%. PLEASE REFER TO [employer] DIABETIC CARE GUIDELINES FOR FURTHER INFORMATION. Procedures Date CPT Code Description Status 08/31/2017 16453 EKG Tracing & Interpretation Completed 06/17/2017 49051 ECHO Transthorasic Realtime 2D W Doppler & Color Completed Flow Hosp 06/16/2017 78812 EKG, Interpretation Only Completed 03/30/2017 Mammogram Completed 02/27/2017 32290 Diffusing Capacity Completed 02/27/2017 93230 Spirometry Incl Graphic Record Completed 10/27/2016 64368 Admin Of Inj Completed 02/29/2016 77775 Chemotherpy Admin Subcutaneous/Im Non-Hormonal Completed Anti-Neoplastic 05/11/2015 37732 Chemotherpy Admin Subcutaneous/Im Non-Hormonal Completed Anti-Neoplastic 04/01/2015 Bone Mineral Density Test Completed 04/01/2015 Mammogram Completed 03/31/2015 00417 Pulmonary Stress Test Simple Completed 10/07/2014 70325 Admin Of Inj Completed 09/23/2014 00354 Pulmonary Stress Test Simple Completed 04/20/2014 19252 Admin Of Inj Completed 03/30/2014 33930 Rad Exam; Hip Unilat Completed 03/30/2014 55065 Rad Exam; Pelvis Completed 02/17/2014 46432 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 02/17/2014 12490 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 02/12/2014 94553 Spirometry Incl Graphic Record Completed 02/09/2014 98002 Spirometry Incl Graphic Record, Timed Expiratory Flow Completed Rate 02/04/2014 70406 EKG Tracing & Interpretation Completed 12/29/2013 36508 Rad Exam; Hip Unilat Completed 12/29/2013 02892 Rad Exam; Pelvis Completed 10/06/2013 04203 Chemotherpy Admin Subcutaneous/Im Non-Hormonal Completed Anti-Neoplastic 10/06/2013 31028 Admin Of Inj Completed 09/29/2013 07374 Rad Exam; Hip Unilat Comp Completed 09/29/2013 46246 Rad Exam; Pelvis Completed 08/25/2013 71525 Pulmonary Function><Bronchodilator Completed 04/14/2013 16101 Rad Exam; Hip Unilat Completed 04/14/2013 57301 Rad Exam; Pelvis Completed 02/17/2013 Mammogram Completed 02/17/2013 Bone Mineral Density Test Completed 01/06/2013 61240 Rad Exam; Hip Unilat Completed 01/06/2013 05492 Rad Exam; Pelvis Completed 10/14/2012 82261 Rad Exam; Hip Unilat Completed 10/14/2012 79195 Rad Exam; Wrist Limited, 2 Views Completed 10/14/2012 66672 Rad Exam; Pelvis Completed 09/12/2012 94439 Open TX Of Femoral FX,Promimal End,Neck Internal Completed Fixation 09/12/2012 69774 Open TX Of Femoral FX,Promimal End,Neck Internal Completed Fixation 09/12/2012 29008 Closed Treatment Distal Radial FX W/Manipulation Completed 03/20/2012 Colonoscopy Completed 01/25/2011 Bone Mineral Density Test Completed 01/25/2011 Mammogram Completed 02/04/2010 34318 Admin Of Inj Completed 09/29/2009 01174 Pulmonary Function><Bronchodilator Completed 06/23/2009 79348 EKG, Interpretation Only Completed 03/13/2008 15235 EKG, Interpretation Only Completed 03/04/2008 Colonoscopy Completed Encounters Type Date Location Provider CPT E/M Dx Office Visit 08/14/2017 [facility] [address] J44.9 1:30p [facility] R09.02 Office Visit 08/03/2017 4:00p [facility] Internal Medicine Echo Rivero N.P. 32994 J44.1 - [place] I10 E87.1 M54.5 I71.4 I34.9 Office Visit [facility]2017 [facility] [address] J[facility]1 [facility], Hospitalists I50.33 I10 F41.8 Office Visit 07/26/2017 1:32p [facility] [place] [address] [facility] J44.1 I50.31 R06.02 Office Visit 07/26/2017 10:34a [place] MICHELLE Moreno 36487 J44.1 Assoc, Hospitalists I50.33 I10 F41.8 Office Visit 07/25/2017 3:43p [facility] [place] [address] [facility] I50.31 Z87.891 R06.02 Z99.81 Office Visit 07/25/2017 10:33a MICHELLE Gonzalez 12589 J44.1 Assoc, Hospitalists I50.33 I10 F41.8 Office Visit 07/24/2017 10:31a [facility],pc Shanti Cody N.P. 46001 J44.1 Hospitalists I50.33 I10 F41.8 Office Visit 07/23/2017 10:29a [facility],pc Shanti Cody N.P. 08332 J44.1 Hospitalists I10 F41.8 Office Visit 07/22/2017 10[facility] 61372 J44.1 Assoc, Hospitalists I10 F41.8 Office Visit 07/21/2017 [facility] Jaylen Uribe, 55645 J44.1 Hospitalists [facility] I[facility] F41.8 Office Visit 07/03/2017 8:00a [facility] Cheyanne Jules, CLIENT RELATIONSHIP CONSULTANT 49937 M54.5 Office Visit 07/01/2017 8:00a [facility] Cheyanne Jules, CLIENT RELATIONSHIP CONSULTANT 95412 M54.5 J44.9 Office Visit 06/26/2017 8:45a [facility], CLIENT RELATIONSHIP CONSULTANT 21282 M54.5 S22.080A Office Visit 06/25/2017 2:00p [facility] Elsi Burciaga, [address] [facility] N.P. Office Visit 06/20/2017 8:15a [facility] Elinor Muñoz, 46680 S22.080A Yolande J44.9 I50.9 I10 Office Visit 06/19/2017 10:07a [facility] [address] J96.21 Hospitalists J44.1 S22.080A Office Visit 06/18/2017 10:06a [place] [facility] [address] J96.21 Hospitalists J44.1 S22.080A Office Visit 06/17/2017 10:05a [facility] [address] J96.21 Hospitalists J44.1 S22.080A Office Visit 06/16/2017 10:04a [facility] [address] J96.21 Hospitalists J44.1 S22.080A Office Visit 06/15/2017 11:15a [facility], [place] [address] J96.21 Hospitalists J44.1 E87.1 S22.080A Office Visit 06/02/2017 10:59a [facility], [place] [address] M48.54xA Hospitalists K59.03 E87.1 M81.0 Office Visit 06/01/2017 10:58a [facility], [place] [address] M48.54xA Hospitalists K59.03 E87.1 M81.0 Office Visit 05/31/2017 10:57a [facility], [place] [address] M48.54xA Hospitalists K59.03 E87.1 M81.0 Office Visit 05/30/2017 10:55a [facility] Jaylen Uribe, 06558 M48.54xA Assoc, Hospitalists Yolande,[facility] K59.03 J44.9 M81.0 Office Visit 05/29/2017 10:53a [facility] [place] [address] M48.54xA Assoc, Hospitalists K59.03 J44.9 M81.0 Office Visit 05/16/2017 2:40p [facility] [place] [address] M54.5 - [place] Office Visit 03/06/2017 1:20p [facility] Internal Medicine Echo Rivero N.P. 36510 J44.9 - [place] M81.0 I10 E78.00 R60.0 Z12.31 Office Visit 02/13/2017 1:00p [facility] [place] [address] [facility] R09.02 Office Visit 01/24/2017 1:45p [facility] Marin M.D. 91465 Z96.642 C.M.A. M21.752 Office Visit 08/29/2016 2:00p [facility] Internal Medicine - Alexi Kim, 33790 I10 Zainab Fan44.9 M81.0 Office Visit 08/08/2016 1:00p [facility] [place] [address] [facility] Office Visit 02/29/2016 2:00p [facility] Internal Medicine - Alexi Kim, 73777 I10 Zainab Lanier J44.9 M81.0 E78.2 Z85.038 Z92.29 Office Visit 02/08/2016 1:00p [facility] [place] [address] [facility] Office Visit 01/26/2016 1:30p [facility] M.D. 68553 Z96.642 C.M.A. Office Visit 09/28/2015 3:45p [facility] [place] [address] [facility] J98.4 Office Visit 03/31/2015 1:00p [facility] [place] [address] [facility] R09.02 E66.09 Office Visit 03/01/2015 2:00p [facility] Internal Medicine - Alexi Kim, 40353 I10 Aleja Lanier J44.9 M81.0 Z12.31 E78.2 Office Visit 01/25/2015 10:45a [facility] M.D. 23260 Z96.642 C.M.A. M16.12 Z09 Office Visit 09/28/2014 1:00p [facility] [place] [address] [facility] 799.02 278.00 Office Visit 06/29/2014 10:45a [facility] M.D. 57677 715.95 C.M.A. v54.81 V43.64 Office Visit 04/20/2014 4:00p [facility] Internal Medicine Alexi Kim, 86963 724.2 - Aleja Lanier 733.01 V87.49 Office Visit 04/13/2014 11:00a [facility] [place] [address] [facility] 518.89 799.02 Office Visit 03/04/2014 1:22p [facility] [place] [address] 496 Services Of [facility] [employer] [facility] Super[facility] Office Visit 02/26/2014 2:39p [facility] [place] [address] 496 Services [facility] Super[facility] 786.05 Office Visit 02/25/2014 2:31p [facility] [place] [address] [facility] 786.05 Office Visit 02/19/2014 3:03p [facility], Elsi Burciaga, 65126 496 Hospitalists N.P. 401.9 278.00 V43.64 Office Visit 02/18/2014 3:03p [facility], Elsi Burciaga, 04000 496 Hospitalists N.P. 401.9 278.00 V43.64 Office Visit 02/17/2014 3:02p [facility], Shanti Cody N.P. 74695 496 Hospitalists 401.9 278.00 V43.64 Office Visit 02/09/2014 10:15a [facility] [place] [address] [facility] V72.83 Office Visit 02/04/2014 2:00p [facility] Internal Medicine Alexi Kim, 60796 V72.81 - Aleja Lanier 715.95 401.1 496 272.2 733.01 V04.81 Office Visit 12/29/2013 10:00a [facility] M.D. 75994 715.95 C.M.A. Office Visit 09/29/2013 9:45a [facility] M.D. 76982 715.95 C.M.A. Office Visit 04/14/2013 9:15a [facility] M.D. 29441 820.8 C.M.A. Office Visit 02/24/2013 1:20p [facility] Internal Medicine - Alexi Kim, 46824 496 Aleja Lanier 733.00 272.2 401.1 820.8 Office Visit 01/06/2013 9:00a [facility] M.D. 01710 813.42 C.M.A. 820.8 Office Visit 09/15/2012 1:32p [facility], Shanti Cody, N.P. 53814 492.8 Hospitalists 276.1 820.8 813.42 Office Visit 09/14/2012 1:31p [facility], Shanti Cody N.P. 10411 492.8 Hospitalists 276.1 820.8 813.42 Office Visit 09/13/2012 1:31p [facility], Wanda Sabra, 21079 492.8 Hospitalists M.DDeep 820.8 813.42 Office Visit 09/12/2012 10:00a [facility] M.D. 98456 820.8 C.M.A. 813.44 Office Visit 09/12/2012 1:30p [facility], Elinor Muñoz, 36332 820.8 Hospitalists M.DDeep 813.42 492.8 276.1 Office Visit 02/23/2012 11:00a [facility] Internal Medicine Alexi Kim, 51992 401.1 - Aleja Lanier 496 790.21 272.2 733.00 153.3 Office Visit 08/23/2011 11:00a [facility] Internal Medicine Alexi Kim, 78507 401.1 - Aleja Lanier 496 790.21 272.2 733.00 153.3 Office Visit 02/22/2011 10:40a DO Not Use [employer] [facility] Super[facility] AT Alexi Lali Kim, 18738 401.1 Henry Lanier 272.2 Office Visit 01/18/2011 2:40p DO Not Use [employer] [facility] Supervisor AT AlexiRosado, 48161 401.1 Henry Lanier 272.2 496 790.21 733.00 V76.10 153.8 V04.81 Office Visit 07/11/2010 4:00p DO Not Use [employer] [facility] Supervisor AT Alexi Lali Kim, 63518 496 Henry Lanier 272.2 401.1 Office Visit 01/10/2010 11:20a DO Not Use [employer] [facility] Supervisor AT Alexi Lali Kim, 63144 V72.83 Henry Lanier V72.81 366.8 401.9 496 272.2 Office Visit 09/29/2009 11:40a DO Not Use [employer] [facility] Supervisor AT [facility], 48843 496 [facility] 401.9 272.2 Office Visit 06/22/2009 11:40a DO Not Use [employer] [facility] Supervisor AT [facility], 27921 466.0 [facility].D. Office Visit 06/08/2009 2:00p DO Not Use [employer] [facility] Supervisor AT [facility], 39898 401.1 [facility] M.D. Office Visit 03/01/2009 2:30p DO Not Use [employer] [facility] Supervisor AT [facility], 93713 782.3 [facility] 401.1 Office Visit 02/11/2009 2:30p DO Not Use [employer] [facility] Supervisor AT [facility], 09213 401.1 [facility] 782.3 Office Visit 10/06/2008 2:15p [facility] AT [facility], 64588 724.5 [facility] M.D. Office Visit 07/29/2008 2:30p [facility] AT [facility], 22392 V72.81 [facility] M.D. 401.9 250.00 272.0 733.00 153.3 Office Visit 01/29/2008 2:00p [facility] AT [facility], 00415 272.0 [facility] M.D. 401.1 V04.81 Office Visit 01/21/2008 12:00p [facility] AT [facility], 20801 465.9 [facility] M.D. Office Visit 07/24/2007 2:30p [facility] AT [facility], 51724 250.00 [facility] M.D. 733.00 401.1 V06.5 V03.82 Office Visit 01/22/2007 2:00p [facility] AT [facility], 37419 250.00 [facility].D. 272.0 401.1 V04.81 Plan of Care Future Appointment(s):02/12/2018 1:45 pm - Sabrina Chester MD at [facility]11/02/2017 3:20 pm - Echo Rivero N.P. at [facility] Internal Medicine - Ppjmnllld47/23/2018 2:20 pm - Echo Rivero N.P. at [facility] Internal Medicine - Ebitpboql59/18/2018 - Renaldo Crump DO FACCI50.32 Chronic diastolic (congestive) heart failureFollow up:PRNI10 Essential (primary ) nmtjxcesmxusS27.9 Chronic obstructive pulmonary disease, buugdufqgicV29.0 Nonrheumatic aortic (valve) stenosis
[2017-09-18 15:28] VITALS: BP 127/76
--- NOTE | 2017-09-18 16:49 | UC ---
Lower Extremity/Ankle HPI - HPI Summary HPI Summary: PATIENT PRESENTS WITH 4 DAYS OF RIGHT LOWER LEG PAIN AND CRAMPING. WORSE WHEN STANDING. PATIENT IS CONCERNED ABOUT A BLOOD CLOT. SHE DOES HAVE A HISTORY OF COLON CANCER AND LEADS A SEDENTARY LIFESTYLE. QUIT SMOKING ABOUT 15 YEARS AGO. HAS COPD ON HOME OXYGEN. - History of Current Complaint Chief Complaint: UCLowerExtremity Stated Complaint: LEG PAIN Time Seen by Provider: 09/18/17 15:51 Hx Obtained From: Patient Onset/Duration: Gradual Onset, Lasting Days, Still Present Severity Initially: Moderate Severity Currently: Moderate Pain Intensity: 0 Pain Scale Used: 0-10 Numeric Aggravating Factor(s): Standing, Ambulation Alleviating Factor(s): Rest Able to Bear Weight: Yes - Allergies/Home Medications Allergies/Adverse Reactions: Allergies Allergy/AdvReac Type Severity Reaction Status Date / Time Adhesive Tape Allergy REDDENED Verified 09/18/17 15:29 SKIN codeine Allergy Hives Verified 09/18/17 15:29 iodine Allergy Rash Verified 09/18/17 15:29 Penicillins Allergy Hives Verified 09/18/17 15:29 pineapple Allergy MOUTH SORE Verified 09/18/17 15:29 tiotropium Allergy HOARSENESS, Verified 09/18/17 15:29 [From Spiriva with TICKLE IN HandiHaler] THROAT Raisins Allergy GI Upset Uncoded 07/21/17 01:40 PMH/Surg Hx/FS Hx/Imm Hx Cardiovascular History: Hypertension Respiratory History: COPD, Asthma Cancer History: Colorectal Cancer Other History Of: Negative For: Anticoagulant Therapy - Surgical History Surgical History: Yes Surgery Procedure, Year, and Place: Empyema removal 1983, Broken elbow left repair ORIF (plate) Apr 1999 and later hardware removal Colon cancer dx 2007, colon resection. Hernia repair 2009 Partial L Hip Replacement September 2012 - Family History Known Family History: Positive: Cardiac Disease, Respiratory Disease, Other - Aortic aneurysm Negative: Blood Disorder - Social History Alcohol Use: Occasionally Alcohol Amount: 1 GLASS OF WINE DAILY Substance Use Type: None Smoking Status (MU): Former Smoker Amount Used/How Often: 1 1/2 PPD X 30 YEARS Have You Smoked in the Last Year: No When Did the Patient Quit Smoking/Using Tobacco: 10 years ago. - Immunization History Most Recent Influenza Vaccination: fall 2016 Most Recent Tetanus Shot: up to date, pt states this is what her PCP has told her Most Recent Pneumonia Vaccination: 08/2013 Review of Systems Constitutional: Negative Skin: Negative Respiratory: Negative Cardiovascular: Negative Musculoskeletal: Calf Tenderness, Edema All Other Systems Reviewed And Are Negative: Yes Physical Exam Triage Information Reviewed: Yes Appearance: Well-Appearing, No Pain Distress, Well-Nourished Vital Signs: Initial Vital Signs Temp 97.7 F 09/18/17 15:22 Pulse 84 09/18/17 15:22 Resp 20 09/18/17 15:22 BP 127/76 09/18/17 15:22 Pulse Ox 93 09/18/17 15:22 Vital Signs Reviewed: Yes Eyes: Positive: Conjunctiva Clear ENT: Positive: Hearing grossly normal Neck: Positive: Supple Respiratory: Positive: No respiratory distress, No accessory muscle use Cardiovascular: Positive: Pulses Normal Abdomen Description: Positive: Soft Musculoskeletal: Positive: Edema @ - 3+ NON PITTING EDEMA BILATERAL ANKLES, Other: - RIGHT CALF TENDERNESS. NEG HOMANS. EQUAL CALF CIRCUMFERENCE Neurological: Positive: Alert Psychological: Positive: Age Appropriate Behavior Skin: Negative: rashes Lower Extremity Course/Dx - Course Course Of Treatment: PT WITH H/O COLON CANCER, COPD AND SEDENTARY LIFESTYLE C/O LEG PAIN AND CALF TENDERNESS. CONCERN FOR DVT. TO [facility]. PT OFFERED TRANSPORT BY AMBULANCE BUT DECLINES. ADVISED THAT BY NOT TRAVELING IN A MONITORED SETTING SHE COULD BE RISKING WORSENING OF HER CONDITION THAT COULD POSE A THREAT TO HER LIFE, HEALTH AND MEDICAL SAFETY. SHE VERBALIZES UNDERSTANDING AND CONTINUES TO DECLINE AMBULANCE TRANSFER. - Differential Dx/Diagnosis Provider Diagnoses: RIGHT LOWER LEG PAIN Discharge - Sign-Out/Discharge Documenting (check all that apply): Discharge/Admit/Transfer - Discharge Plan Condition: Stable Disposition: HOME Patient Education Materials: Leg Pain (ED) Referrals: Echo Rivero NP [Primary Care Provider] - If Needed Additional Instructions: GO DIRECTLY TO THE [facility] ED FROM HERE FOR FURTHER EVALUATION OF YOUR LEG PAIN. CONSIDER BLOOD CLOT OR ELECTROLYTE ABNORMALITY. YOU HAVE DECLINED AMBULANCE TRANSFER. BE ADVISED THAT BY NOT TRAVELING IN A MONITORED SETTING YOU COULD BE RISKING WORSENING OF YOUR CONDITION THAT COULD POSE A THREAT TO YOUR LIFE, HEALTH AND MEDICAL SAFETY. - Billing Disposition and Condition Condition: STABLE Disposition: Home
== END 2017-09-18 16:45 | disposition home or self-care (01) ==
LOC: UCEAST 15:06
DX: M79.661 Pain in right lower leg (principal); I10 Essential (primary) hypertension; J44.9 Chronic obstructive pulmonary disease, unspecified; Z85.038 Personal history of other malignant neoplasm of large intestine; Z99.81 Dependence on supplemental oxygen; Z96.642 Presence of left artificial hip joint; Z88.3 Allergy status to other anti-infective agents; Z88.5 Allergy status to narcotic agent; Z88.0 Allergy status to penicillin; Z91.018 Allergy to other foods; Z91.048 Other nonmedicinal substance allergy status; Z87.891 Personal history of nicotine dependence; Z82.49 Family history of ischemic heart disease and other diseases of the circulatory system; Z83.6 Family history of other diseases of the respiratory system
CPT/HCPCS: 99212; G0463

== ENCOUNTER 2017-09-18 17:40 | Emergency (ER) | payer MEDICARE, BC ==
[2017-09-18 19:36] LABS: ABS Basophils 0 10^3/ul (0-0.2); ABS Eosinophils 0.3 10^3/ul (0-0.6); ABS Lymphocytes 1.3 10^3/ul (1.0-4.8); ABS Monocytes 1.1 10^3/ul (0-0.8); ABS Neutrophils 4.8 10^3/ul (1.5-7.7); ABS Nucleated RBC 0 10^3/ul; Eosinophil % 3.7 % (0-6); Hematocrit 41 % (35-47); Hemoglobin 13.9 g/dl (12.0-16.0); Lymphocyte % 17.3 % (25-47); Mean Corpuscular HGB Conc 34 g/dl (31-36); Mean Corpuscular Hemoglobin 32 pg (27-31); Mean Corpuscular Volume 93 fL (80-97); Mean Platelet Volume 8.5 um3 (7.4-10.4); Nucleated Red Blood Cells % 0.1; Platelet Count 241 10^3/ul (150-450); Red Blood Count 4.36 10^6/ul (4.0-5.4); Red Cell Distribution Width 14 % (10.5-15); White Blood Count 7.5 10^3/ul (3.5-10.8)
[2017-09-18 19:41] LABS: INR 0.92 (0.77-1.02)
--- NOTE | 2017-09-18 20:09 | RAD ---
Indication: Right leg spasms. Duplex Doppler sonography of the deep venous system of the right lower extremity deep venous system was performed. Bilaterally the common femoral veins appear patent and compressible. Right proximal greater saphenous vein, proximal deep femoral vein, femoral vein, popliteal vein, posterior tibial veins and peroneal veins appear patent and compressible. IMPRESSION: NO EVIDENCE OF DEEP VENOUS THROMBOSIS IS IDENTIFIED.
[2017-09-18 21:42] VITALS: BP 150/74
--- NOTE | 2017-09-20 11:50 | ED ---
Shabbir Gant Angela, scribed for Alexi Maxwell MD on 09/18/17 at 1918 . Lower Extremity - HPI Summary HPI Summary: This pt is a 77 y/[facility]/o right leg pain x4 days. Pt reports her pain originally began on her right foot and currently it has migrated to her right calf. She notes that last night she had muscle spasm. Pt denies chest pain, worsening SOB, fever. She was seen at [facility]gent [facility] and was referred to the ED to rule out DVT. Pt has COPD and has chronic SOB. She is on oxygen at home. - History of Current Complaint Chief Complaint: EDExtremityLower Stated Complaint: RT LEG PAIN Time Seen by Provider: 09/18/17 19:05 Hx Obtained From: Patient Mechanism Of Injury: Other - no trauma Onset of Pain: Days Onset/Duration: Days Pain Intensity: 0 Timing: Constant, Lasting Days Location: Is Discrete @ - right leg Associated Signs And Symptoms: Negative: Fever, Weakness, Knee Pain Aggravating Factor(s): Nothing Alleviating Factor(s): Nothing Able to Bear Weight: Yes - Allergies/Home Medications Allergies/Adverse Reactions: Allergies Allergy/AdvReac Type Severity Reaction Status Date / Time Adhesive Tape Allergy REDDENED Verified 09/18/17 17:47 SKIN codeine Allergy Hives Verified 09/18/17 17:47 iodine Allergy Rash Verified 09/18/17 17:47 Penicillins Allergy Hives Verified 09/18/17 17:47 pineapple Allergy MOUTH SORE Verified 09/18/17 17:47 tiotropium Allergy HOARSENESS, Verified 09/18/17 17:47 [From Spiriva with TICKLE IN HandiHaler] THROAT Raisins Allergy GI Upset Uncoded 09/18/17 17:47 PMH/Surg Hx/FS Hx/Imm Hx Endocrine/Hematology History: Denies: Hx Anticoagulant Therapy, Hx Diabetes, Hx Thyroid Disease Cardiovascular History: Reports: Hx Aneurysm - AAA diagnosed 05/28/17, Hx Hypercholesterolemia, Hx Hypertension, Other Cardiovascular Problems/Disorders Respiratory History: Reports: Hx Asthma, Hx Chronic Obstructive Pulmonary Disease (COPD) Denies: Hx Sleep Apnea GI History: Reports: Other GI Disorders - Colon CA, current constipation Denies: Hx Ulcer History: Reports: Other Problems/Disorders - Bladder smaller from colon Denies: Hx Dialysis, Hx Renal Disease Musculoskeletal History: Reports: Hx Arthritis, Hx Back Problems, Hx Orthopedic Injury, Hx Osteoporosis, Hx Tendonitis Denies: Hx Bursitis, Hx Scoliosis Sensory History: Reports: Hx Cataracts, Hx Contacts or Glasses Denies: Hx Glaucoma, Hx Hearing Aid, Hx Hearing Problem, Other Sensory Impairments Opthamlomology History: Reports: Hx Cataracts, Hx Contacts or Glasses Denies: Hx Glaucoma, Other Sensory Impairments Neurological History: Reports: Hx Migraine - childhood migraines resolved at 22 years old, Other Neuro Impairments/Disorders - LEFT HIP SX X 2 MO AGO Denies: Hx Headaches, Hx Nerve Disease - Cancer History Cancer Type, Location and Year: COLON 2007, treated with Chemo Hx Chemotherapy: Yes Hx Radiation Therapy: No - Surgical History Surgery Procedure, Year, and Place: Empyema removal 1983, Broken elbow left repair ORIF (plate) Apr 1999 and later hardware removal Colon cancer dx 2007, colon resection. Hernia repair 2009 Partial L Hip Replacement September 2012 Hx Anesthesia Reactions: No Infectious Disease History: No Infectious Disease History: Denies: Hx Hepatitis, Hx Human Immunodeficiency Virus (HIV), History Other Infectious Disease, Traveled Outside the [place] in Last 30 Days - Family History Known Family History: Positive: Cardiac Disease, Respiratory Disease, Other - Aortic aneurysm Negative: Blood Disorder - Social History Alcohol Use: Occasionally Alcohol Amount: 1 GLASS OF WINE DAILY Hx Substance Use: No Substance Use Type: Reports: None Hx Tobacco Use: Yes Smoking Status (MU): Former Smoker Amount Used/How Often: 1 1/2 PPD X 30 YEARS Have You Smoked in the Last Year: No Review of Systems Negative: Fever, Chills Eyes: Negative ENT: Negative Negative: Chest Pain Negative: Shortness Of Breath Musculoskeletal: Other - right leg pain Negative: Other - knee pain Negative: Weakness, Paresthesia, Numbness All Other Systems Reviewed And Are Negative: Yes Physical Exam - Summary Physical Exam Summary: VITAL SIGNS: Reviewed. GENERAL: Patient is a well-developed and nourished female who is lying comfortable in the stretcher. Patient is not in any acute respiratory distress. HEAD AND FACE: No signs of trauma. No ecchymosis, hematomas or skull depressions. No sinus tenderness. EYES: PERRLA, EOMI x 2, No injected conjunctiva, no nystagmus. EARS: Hearing grossly intact. Ear canals and tympanic membranes are within normal limits. MOUTH: Oropharynx within normal limits. NECK: Supple, trachea is midline, no adenopathy, no JVD, no carotid bruit, no c- spine tenderness, neck with full ROM. CHEST: Symmetric, no tenderness at palpation LUNGS: Clear to auscultation bilaterally. No wheezing or crackles. CVS: Regular rate and rhythm, S1 and S2 present, no murmurs or gallops appreciated. ABDOMEN: Soft, non-tender. No signs of distention. No rebound no guarding, and no masses palpated. Bowel sounds are normal. EXTREMITIES: FROM in all major joints, no cyanosis or clubbing. Tenderness on the right calf. No RLE warmth to palpation. No Homans sign. NEURO: Alert and oriented x 3. No acute neurological deficits. Speech is normal and follows commands. SKIN: Dry and warm Triage Information Reviewed: Yes Vital Signs On Initial Exam: Initial Vitals Temp Pulse Resp BP Pulse Ox 98.1 F 80 18 167/89 94 09/18/17 17:43 09/18/17 17:43 09/18/17 17:43 09/18/17 17:43 09/18/17 17:43 Vital Signs Reviewed: Yes Diagnostics - Vital Signs Vital Signs Temp Pulse Resp BP Pulse Ox 09/18/17 17:43 98.1 F 80 18 167/89 94 - Laboratory Result Diagrams: 09/18/17 19:27 Lab Statement: Any lab studies that have been ordered have been reviewed, and results considered in the medical decision making process. - Ultrasound No standard instances Ultrasound Interpretation: No Acute Changes - Right lower extremity US IMPRESSION: No evidence of deep venous thrombosis is identified. Dr. Maxwell has reviewed this radiology report. Ultrasound Interpretation Completed By: Radiologist Re-Evaluation - Re-Evaluation First Eval Re-Evaluation Time: 20:35 Comment: I reviewed the lab and ultrasounds results with the pt. She will be discharged home. Lower Extremity Course/Dx - Course Assessment/Plan: Pt is a 77 y/o female who presents with right leg pain x4 days. Pt reports her pain originally began on her right foot and currently it has migrated to her right calf. She notes that last night she had muscle spasm. Pt denies chest pain, worsening SOB, fever. She was seen at Urgent Care and was referred to the ED to rule out DVT. Pt has COPD and has chronic SOB. She is on oxygen at home. Test results without any significant abnormalities except for CRP of 7.6. Right lower extremity US shows no evidence of deep venous thrombosis is identified. I believe the pt has a musculoskeletal pain since the ultrasound is negative for DVT. Therefore pt will be discharged home with follow up from PCP. I discussed all the findings and test results with the patient. All questions were answered to patient satisfaction. There were no further complaints or concerns. She is instructed to return to the ED for any worsening or new symptoms. Pt is hemodynamically stable, alert and oriented x3. - Diagnoses Provider Diagnoses: Right calf pain, Right leg pain Discharge - Sign-Out/Discharge Documenting (check all that apply): Discharge/Admit/Transfer - Discharge - Discharge Plan Condition: Stable Disposition: HOME Patient Education Materials: Musculoskeletal Pain (ED), Leg Pain (ED) Referrals: Echo Rivero NP [Primary Care Provider] - 3 Days Additional Instructions: Please follow up with your primary care provider. RETURN TO THE ED FOR ANY NEW OR WORSENING SYMPTOMS. The documentation as recorded by the Shabbir veliz Angela accurately reflects the service I personally performed and the decisions made by me, Alexi Maxwell MD.
== END 2017-09-18 21:43 | disposition home or self-care (01) ==
LOC: ED 17:40
DX: M79.661 Pain in right lower leg (principal); J44.9 Chronic obstructive pulmonary disease, unspecified; Z99.81 Dependence on supplemental oxygen; Z87.891 Personal history of nicotine dependence; Z88.5 Allergy status to narcotic agent; Z88.0 Allergy status to penicillin; Z88.8 Allergy status to other drugs, medicaments and biological substances; I10 Essential (primary) hypertension; Z85.038 Personal history of other malignant neoplasm of large intestine; Z96.642 Presence of left artificial hip joint; Z88.3 Allergy status to other anti-infective agents; Z91.018 Allergy to other foods; Z91.048 Other nonmedicinal substance allergy status; Z82.49 Family history of ischemic heart disease and other diseases of the circulatory system; Z83.6 Family history of other diseases of the respiratory system
CPT/HCPCS: 36415; 85025; 85610; 86140; 99283

== ENCOUNTER 2017-11-06 07:45 | Inpatient (IN) | payer MEDICARE, BC ==
[2017-11-06] MEDS ORDERED: methylPREDNISolone 125 MG* 2 ML VIAL IV ONE (08:04)
[2017-11-06] MEDS ORDERED: Albuterol/Ipratropium NEB.SOL* Albuterol 2.5 MG/Ipratropium 0.5 MG 3 ML INH ONE ×2 (08:04→10:25)
--- OUTSIDE RECORDS SUMMARY | 2017-11-06 08:19 | XMS REPORT ---
:1940 External Reference #:[id number] Author Organization [facility] Address [address] [place] [address] [place] [address] Phone [phone] Care Team Providers Name Role Phone Angie Zimmer MD Primary Care Physician Unavailable Payers Type Date Identification Numbers Payment Provider Subscriber Medicare Primary Effective: Policy Number: Medicare Francisca Coburn 2005 [id number] PayID: [id number] [address] [place] [address] Medigap Part B Effective: Policy Number: BS Facets Francisca Shirleyjennifermichael 2011 [id number] PayID: [id number] [address] [address] [place] [address] Problems Date Description Provider Status Onset: 02/08/2011 [...] 08/31/2015 History of malignant neoplasm of Alexi E. Judy, M.D. Active colon Family History Date Family [...] Form Strength Qnty SIG Indications Ordering Provider Prednisone 11/02/ Hx Tablets 10mg 40tabs 4 tablets J44.1 2017 - by mouth Varn, 11/18/ for 4 days N.P. 2018 3 tablets by mouth for 4 days 2 tablets by mouth for 4 days 1 tablet by mouth for 4 days Azithromycin 11/02/ Hx Tablets 250mg 6tabs two tabs J44.1 2017 - day one, Varn, 11/12/ one daily N.P. 2018 till gone Furosemide 10/14/ Active Tablets 20mg 30tabs Take One 2017 Tablet By Varn, Mouth Every N.P. Day Irbesartan 08/22/ Active Tablets 300mg 30tabs 1 by mouth Echo 2017 every day Varn, N.P. Proair HFA 08/14/ Active Aerosol 108(90Base 25.5gm 1 puff Sabrina 2017 ) mcg/Act every 6 Neom, hours as MD needed Nebulizer 07/13/ Active Device 1units use three Echo 2018 times a day Varn, as needed N.P. Nebulizer 07/13/ Active Kit 1units use three Echo Kit/Tubing/Mout 2018 times a day Varn, hpiece as needed N.P. Ipratropium 07/13/ Active Solution 0.5-2.5(3) 180ml 1 vial in Echo [place]/Albuter 2018 mg/3ML nebulizer Varn, ol Sulfate three times N.P. a day as needed for asthma(not taking) Multivitamins 02/06/ Active Capsules 1 by mouth Unknown 2015 every day Symbicort 03/31/ Active Aerosol 160-4.5mcg 30.6un Inhale Two J44.9 Sabrina 2014 /Act its Puffs By Nemo Mouth Twice MD A Day Oxygen 09/28/ Active Misc 1units please use R09.02 Sabrina 2014 o2 at 4 Nemo, litres/min MD during exertion Lyrica 04/10/ Active Capsules 25mg 60caps 25 mg in Unknown 2013 the morning, and 50 mg at night Prolia 08/26/ Active Solution 60mg/ml 60mg 60 mg sc M81.0 Echo 2014 q6mon Varn, N.P. Z92.29 Clindamycin HCL 05/09/2013 Active Capsules 300mg 2caps 2 tabs one Dirk hour prior to [facility], dental work M.D. Vitamin B 01/10/2013 Active Capsules 1 po qd Unknown Complex Simvastatin 01/20/2011 Active Tablets 20mg 90tabs take one Alexi E. tablet by Judy mouth every M.D. evening Vitamin E Active Capsules 100Unit 1 po qd Unknown Vitamin D-400 Active Tablets 400Unit 60tabs 1 by mouth Unknown every day Colace Active Capsules 100mg 60caps 1 by mouth qd Unknown Vitamin C Active Capsules 1,000mg 1 by mouth Unknown every day Lorazepam [...] M5 Sundar 05/22/2017 every six 4. Marlena, [employer] OR TRAP hours as 5 needed for pain. Salsalate 05/16/2017 - Hx Tablets 500mg 30tabs one tablet M5 Sundar 06/24/2017 twice daily 4. Marlena, [employer] NET OR TRAP as needed 5 with food Hydrocodone-Christian 05/16/2017 - Hx Tablets 5-325mg 30tabs take 1 tablet M5 Sundar taminophen 06/24/2017 every 8 hours 4. Marlena, [employer] NET OR TRAP for pain. 5 Zostavax 08/29/2016 - Hx Suspension 10076Se I1 Alexi Escalera 05/16/2017 Rec t/0.65M 0 Elliot Kim M.D. Silver 02/07/2016 - Hx Tablets 1 po qd Unknown 02/07/2016 Acetaminophen 02/07/2016 - Hx Capsules 500mg 2 by mouth Unknown 06/24/2017 twice a day as needed Fentanyl 03/25/2014 - Hx Patches 72HR 25mcg/H 5units apply one Alexi Escalera 08/27/2014 R patch once shantanu Kim 3 days M.DDeep Young 03/13/2014 - Hx Tablets 5-325mg 30tabs 1-2 by mouth Dirk 04/10/2014 every 4 to 6 Tomas, hours as M.D. needed Macrobid 02/16/2014 - Hx Capsules 100mg 10caps 1 tab q12hr x Dirk 08/27/2014 5 days Yolande Marin 02/14/2014 - Hx Tablets 5-325mg 100tabs 1 by mouth Dirk 08/27/2014 every 6 Tomas, hours as M.D. needed for pain try to use less and less as soon as possible Ventolin HFA 02/04/2014 - Hx Aerosol 108(90B 1units 2 puffs by Thuan 02/07/2016 ase) mouth four Flowers, [employer] NET OR TRAP mcg/Act times a day as needed Proair HFA 08/25/2013 - Hx Aerosol 108(90B 1units 2 puffs by Alexi Escalera 02/04/2014 ase) mouth four Judy, mcg/Act times a day M.D. as needed Spiriva 02/24/2013 - Hx Capsules 18mcg 30caps 2 inhalations Alexi Escalera Handihaler 02/04/2014 by mouth Judy, every morning M.D. Acetaminophen 12/10/2012 - Hx Tablets 500mg 80tabs [...] - Hx Aerosol 80-4.5m 3units inhale two Tuhan 03/31/2015 cg/Act puffs into Flowers, [employer] NET OR TRAP lungs twice a day Zithromax Z-Arnoldo 06/22/2009 [...] qd Cher Cm 02/11/2009 Abram Escalera MD Calcium + D 07/29/2008 - Hx Tablets 600mg 1 po qd Alexi Escalera 08/30/2017 Yolande Kim Vitamin C 07/29/2008 - Hx Tablets 1000mg 1 po qd Alexi Escalera 02/07/2016 Yolande Kim Oxaliplatin 07/29/2008 - Hx Every other Alexi Escalera 02/11/2009 week Yolande Kim Fluorouracil 07/29/2008 - Hx Solution ?mg. Every other Alexi EDeep 02/11/2009 week Yolande Kim Leucovorin 07/29/2008 - Hx Solution ?mg Every other Alexi EDeep Calcium 01/18/2011 week Yolande Kim Albuterol 07/29/2008 - Hx 1MonthS 2 puffs up to Alexi Escalera Inhaler 08/25/2013 upply four times a Judy, day by mouth M.DDeep as needed Procardia XL 01/29/2008 - Hx Tablets ER 60mg 90tabs 1 po qd Alexi Escalera 03/01/2009 24HR Yolande Kim Zetia 07/24/2007 - Hx Tablets 10mg 90tabs Take One Alexi Escalera 08/25/2013 Tablet By Judy, Mouth Every M.D. Day Fosamax 07/24/2007 - Hx Tablets 70mg 12tabs take 1 tablet Alexi Escalera 02/04/2014 by mouth once Judy weekly Yolande Procardia XL - Hx Tablets ER 90mg. 90tabs 1 po qd Alexi Escalera 01/29/2008 24HR Yolande Kim Dyazide - Hx Capsules 37.5-25 90caps 1 po qd Alexi Escalera 03/01/2009 Yaritza Kim. Tylenol - Hx Tablets 325mg 100tabs prn 2 Tablets Unknown 08/25/2013 PO Q 4HRS Jen - Hx Tablets 60mg 180tabs 1 PO bid prn Frannieen, 07/24/2007 MD Rangel Centrum Silver - Hx Tablets 1 PO qd en, 07/29/2008 MD Rangel Proair HFA - Hx Aerosol 90mcg/A 1units 2 puffs po Alexi E. (Albuterol) 07/29/2008 ct qidprn Yaritza Kim. Aspirin - Hx Tablets 81mg 100tabs 1 PO qd , 07/29/2008 MD Rangel Vitamin B - Hx [...] 08/03/2017 Lidocaine Patch - Hx Unknown 08/03/2017 Lasix - Hx Tablets 20mg 30tabs 1 by mouth Echo 10/14/2017 every day Varn, N.P. Acetaminophen - Hx Tablets 500mg 2 tablets [...] CPT Code Status Date Vaccine Lot # [id number] Given 12/27/2015 Influenza Virus Vaccine, Quadrivalent, Split, Preservative Free 38122 Given 01/28/2015 Influenza Virus 3Yrs & Over 88482 Given 02/04/2014 Flu Vaccine Split Virus Preservative Free For [id number] Indiv 3Yr Older 73953 Given 08/25/2013 Pneumococcal Conjugate Vaccine 13 Valent For [id number] Intramuscular Use [id number] Given 01/18/2011 Fluzone Vaccine [id number] 43013 Given 02/04/2010 Influenza Virus 3Yrs & Over [id number] 26277 Given 04/21/2009 Influenza Virus Vaccine, Pandemic Formulation 91089 Given 01/29/2008 Influenza Virus 3Yrs & Over 39757 Given 01/29/2008 Influenza Virus 3Yrs & Over 04457 Given 07/24/2007 Pneumonia Vaccine [id number] 86788 Given 07/24/2007 Tetanus And Diptheria (Td) For Adult Use Preservative Free 11240 Given 07/24/2007 Tetanus And Diptheria (Td) For Adult Use Preservative Free 66170 Given 01/22/2007 Influenza Virus 3Yrs & Over 37335 Given 01/22/2007 Influenza Virus 3Yrs & Over 94374 Vital Signs Date Vital Result Comment 11/02/2017 Height 63.75 inches 5'3.75" Weight 205.00 lb Heart Rate 101 /min BP Systolic 98 mmHg BP Diastolic 60 mmHg Body Temperature 98.3 F O2 % BldC Oximetry 91 % on 4LNC BMI (Body Mass Index) 35.5 kg/m2 08/31/2017 Height 63.75 inches 5'3.75" Weight 205.00 [...] Test Date Test Result H/L Range Note CBC Auto Diff 09/18/2017 White Blood Count 7.5 10^3/uL 3.5-10.8 Red Blood Count 4.36 10^6/uL 4.0-5.4 Hemoglobin 13.9 g/dL 12.0-16.0 Hematocrit 41 % 35-47 Mean Corpuscular Volume 93 fL 80-97 Mean Corpuscular Hemoglobin 32 pg High 27-31 Mean Corpuscular HGB Conc 34 g/dL 31-36 Red Cell Distribution Width 14 % 10.5-15 Platelet Count 241 10^3/uL 150-450 Mean Platelet Volume 8.5 um3 7.4-10.4 Abs Neutrophils 4.8 10^3/uL 1.5-7.7 Abs Lymphocytes 1.3 10^3/uL 1.0-4.8 Abs Monocytes 1.1 10^3/uL High 0-0.8 Abs Eosinophils 0.3 10^3/uL 0-0.6 Abs Basophils 0 10^3/uL 0-0.2 Abs Nucleated RBC 0 10^3/uL Granulocyte % 64.1 % 38-83 Lymphocyte % 17.3 % Low 25-47 Monocyte % 14.3 % High 0-7 Eosinophil % 3.7 % 0-6 Basophil % 0.6 % 0-2 Nucleated Red Blood Cells % 0.1 Inr/Protime 09/18/2017 Inr 0.92 0.77-1.02 Laboratory test finding 09/18/2017 C Reactive Protein 7.60 mg/L High < 5.00 1 Basic Metabolic Panel 08/07/2017 Sodium 136 mmol/L Low 139-145 Potassium 4.0 mmol/L 3.5-5.0 Chloride 99 mmol/L Low 101-111 Co2 Carbon Dioxide 31 mmol/L 22-32 Anion Gap 6 mmol/L 2-11 Glucose 116 mg/dL High 70-100 Blood Urea Nitrogen 17 mg/dL 6-24 Creatinine 0.84 mg/dL 0.51-0.95 BUN/Creatinine Ratio 20.2 High 8-20 Calcium 9.0 mg/dL 8.6-10.3 Egfr Non- 65.7 >60 Egfr 84.6 >60 2 Laboratory test finding 08/07/2017 C Reactive Protein 65.53 mg/L High < 5.00 3 CBC Auto Diff 07/21/2017 White Blood Count [...] finding 07/21/2017 Lactic Acid 1.2 mmol/L 0.5-2.0 4 Comp Metabolic Panel 07/21/2017 Sodium 133 mmol/L [...] Egfr Non- 64.9 >60 Egfr 83.4 >60 5 Laboratory test finding 07/21/2017 Troponin-I (TnI) 0.03 ng/mL <0.04 C Reactive Protein 43.52 mg/L High < 5.00 6 B-Type Natriuretic Peptide BNP 87 pg/mL 7 Inr/Protime 07/21/2017 Inr 0.95 0.77-1.02 Laboratory test finding 07/21/2017 Partial Thrombo Time 37.8 seconds High 26.0-36.3 PTT Rapid Influenza A & B 06/15/2017 Influenza A Molecular NEGATIVE Negative 8 Molecular Influenza B Molecular NEGATIVE Negative Laboratory test 06/15/2017 Rapid Influenza A B SEE RESULT BELOW 9 finding Antigen Inr/Protime 06/15/2017 Inr 0.98 0.77-1.02 [...] Egfr Non- 73.8 >60 Egfr 94.9 >60 10 Laboratory test finding 06/15/2017 C Reactive Protein 31.14 mg/L High < 5.00 11 Troponin-I (TnI) 0.05 ng/mL High <0.04 12 B-Type Natriuretic Peptide BNP 65 pg/mL 13 Lactic Acid 1.2 mmol/L 0.5-2.0 14 CBC Auto Diff 06/15/2017 White Blood Count [...] Color Yellow Urine Appearance Clear Urine Specific [place] 1.009 Low 1.010-1.030 Urine pH 8.0 5-9 [...] Egfr Non- 71.6 >60 Egfr 92.1 >60 15 Laboratory test finding 05/29/2017 Amylase 55 U/L 29-103 Lipase 38 U/L 11.0-82.0 C Reactive Protein 3.25 mg/L < 5.00 16 Comp Metabolic Panel 03/27/2017 Sodium 137 mmol/L [...] Egfr Non- 58.5 >60 Egfr 75.2 >60 17 Lipid Profile (Trig/Chol/HDL) 03/27/2017 Triglycerides 158 mg/dL 18 Cholesterol 194 mg/dL 19 HDL Cholesterol 54.9 mg/dL 20 LDL Cholesterol 108 mg/dL 21 Lipid Profile (Trig/Chol/HDL) 03/28/2016 Triglycerides 200 mg/dL 22 Cholesterol 198 mg/dL 23 HDL Cholesterol 46.2 mg/dL 24 LDL Cholesterol 112 mg/dL 25 Comp Metabolic Panel 03/28/2016 Sodium 135 mmol/L [...] Egfr Non- 57.9 >60 Egfr 74.5 >60 26 Comp Metabolic Panel 04/01/2015 Sodium 130 mmol/L [...] Egfr Non- 50.5 >60 Egfr 65.0 >60 27 Lipid Profile (Trig/Chol/HDL) 04/01/2015 Triglycerides 231 mg/dL 28 Cholesterol 195 mg/dL 29 HDL Cholesterol 45.1 mg/dL 30 LDL Cholesterol 104 mg/dL 31 Urinalysis Profile 02/12/2014 Urine Color Rosio Urine Appearance Cloudy Urine Specific [place] 1.017 1.010-1.030 Urine pH 7.0 5-9 Urine Urobilinogen Negative Negative Urine Ketones Negative Negative Urine Protein Negative Negative Urine Leukocytes Negative Negative Urine Blood Negative Negative * * Negative 32 Urine Nitrite Negative Negative Urine Bilirubin Negative Negative Urine Glucose Negative Negative Urine Culture And Sensitivities 02/12/2014 Urine Culture (SEE NOTE) 33 Basic Metabolic Panel 02/11/2014 Sodium 131 mmol/L Low 133-145 34 Potassium 4.8 mmol/L 3.7-5.6 34 Chloride 96 mmol/L Low 101-111 34 Co2 Carbon Dioxide 29 mmol/L 22-32 34 Anion Gap 6 mmol/L 2-11 34 Glucose 68 mg/dL Low 70-100 34 Blood Urea Nitrogen 16 mg/dL 6-24 34 Creatinine 0.85 mg/dL 0.51-0.95 34 BUN/Creatinine Ratio 18.8 8-20 34 Calcium 9.9 mg/dL 8.6-10.3 34 Egfr Non- 65.4 >60 34 Egfr 84.1 >60 34, 35 Type & Screen 02/11/2014 Patient Blood Type O Positive 34 Antibody Screen NEGATIVE 34 Inr/Protime 02/11/2014 Inr 0.92 0.85-1.06 34 CBC No Diff 02/11/2014 White Blood Count 8.4 10^3/uL 4.8-10.8 34 Red Blood Count 4.77 10^6/uL 4.0-5.4 34 Hemoglobin 15.1 g/dL 12.0-16.0 34 Hematocrit 44 % 35-47 34 Mean Corpuscular Volume 93 fL 80-97 34 Mean Corpuscular Hemoglobin 32 pg High 27-31 34 Mean Corpuscular HGB Conc 34 g/dL 31-36 34 Red Cell Distribution Width 13 % 10.5-15 34 Platelet Count 261 10^3/uL 150-450 34 Mean Platelet Volume 9 um3 7.4-10.4 34 Lipid Profile (Trig/Chol/HDL) 08/18/2013 Triglycerides 186 mg/dL 36, 37 Cholesterol 158 mg/dL 36, 38 HDL Cholesterol 41.5 mg/dL 36, 39 LDL Cholesterol 79 mg/dL 36, 40 Comp Metabolic Panel 08/18/2013 Sodium 132 mmol/L Low 133-145 36 Potassium 4.3 mmol/L 3.7-5.6 36 Chloride 97 mmol/L Low 101-111 36 Co2 Carbon Dioxide 26 mmol/L 22-32 36 Anion Gap 9 mmol/L 2-11 36 Glucose 95 mg/dL 70-100 36 Blood Urea Nitrogen 16 mg/dL 6-24 36 Creatinine 0.90 mg/dL 0.51-0.95 36 BUN/Creatinine Ratio 17.8 8-20 36 Calcium 9.4 mg/dL 8.6-10.3 36 Total Protein 6.8 g/dL 6.4-8.9 36 Albumin 4.4 g/dL 3.2-5.2 36 Globulin 2.4 g/dL 2-4 36 Albumin/Globulin Ratio 1.8 1-3 36 Total Bilirubin 0.60 mg/dL 0.2-1.0 36 Alkaline Phosphatase 58 U/L 34-104 36 Alt 13 U/L 7-52 36 Ast 21 U/L 13-39 36 Egfr Non- 61.4 >60 36 Egfr 78.9 >60 36, 41 Vitamin D, 25 Hydroxy 08/18/2013 25-Hydroxy Vitamin D2 <4.0 ng/mL 36 25-Hydroxy Vitamin D3 44 ng/mL 36 25-Hydroxy Vitamin D Total 44 ng/mL 36, 42 Laboratory test finding 10/11/2012 Inr 1.82 High [...] Egfr Non- 44.2 >60 Egfr 56.8 >60 43 Laboratory test finding 09/12/2012 Troponin I 0.02 ng/mL 0-0.06 44 Type & Screen 09/12/2012 Patient Blood Type O Positive Antibody Screen NEGATIVE Lipid Panel - [facility] 08/19/2012 Creatine Kinase 293 U/L High 0-200 45 Comp Metabolic Panel 08/19/2012 Sodium 133 mmol/L [...] Egfr Non- 54.5 >60 Egfr 70.1 >60 46 Lipid Profile (Trig/Chol/HDL) 08/19/2012 Triglycerides 203 mg/dL High 40- 200 Cholesterol 173 mg/dL Less than 200 HDL Cholesterol 46 mg/dL 40-60 47 Cholesterol/HDL Ratio 3.8 Average 1-4.44 LDL Cholesterol 86.4 mg/dL Less Than 100 48 Laboratory test 08/19/2012 Hemoglobin A1c 5.5 % Less than 6.0 49 finding Surgical Pathology 03/14/2012 S RUN DATE: 50 03/18/ <SEE NOTE> Lipid Profile 08/17/2011 Triglyceride 254 mg/dL High 40-200 (Trig/Chol/HDL) Cholesterol 173 mg/dL Less Than 200 51 High Density Lipoprotein 42 mg/dL 40-60 52 Cholesterol/HDL Ratio 4.12 AVERAGE 1-4.44 Low Density Lipoprotein 80 mg/dL Less Than 100 53 Comp Metabolic Panel 08/17/2011 Sodium 135 mmol/L 135-145 Potassium 4.3 mmol/L 3.5-5.0 Chloride 101 mmol/L 101-111 Co2 (Carbon Dioxide) 29.0 mmol/L 22-32 Anion Gap 5.0 mmol/L 2-11 54 Glucose 99 mg/dL 70-100 BUN 17 mg/dL 6-24 Creatinine 1.0 mg/dL 0.50-1.40 One Over Creatinine 1.00 BUN/Creatinine Ratio 17.0 8-20 Calcium 9.0 mg/dL 8.1-9.9 Total Protein 6.7 GM/DL 6.2-8.1 Albumin 4.0 GM/DL 3.2-5.2 Globulin 2.7 GM/DL 2-4 Albumin/Globulin Ratio 1.5 1-3 Bilirubin Total 0.8 mg/dL 0.4-1.5 55 Alkaline Phosphatase 55 U/L 30-110 Alt (SGPT) 23 U/L 14-54 Ast (Sgot) 29 U/L 12-42 eGFR Non- 54.7 > 60 eGFR 70.3 > 60 56 Laboratory test finding 08/17/2011 Hemoglobin A1c 6.3 % High Less Than 6.0 57 Laboratory test finding 04/04/2011 Alt (SGPT) 23 U/L 14-54 Alkaline Phosphatase 04/04/2011 Alkaline Phosphatase,S 62 U/L 55 - 142 58 Isoenzyme Liver 1% 51.6 % 27.8-76.3 Liver 1 32.0 IU/L 16.2-70.2 Liver 2% 5.6 % 0.0-8.0 Liver 2 3.5 IU/L 0.0-5.8 Bone % 42.8 % 19.1-67.7 Bone 26.5 IU/L 12.1-42.7 Intestine % 0.0 % 0.0-20.6 Intestine 0.0 IU/L 0.0-11.0 Placental NotPresent () 59 Lipid Profile (Trig/Chol/HDL) 04/04/2011 Triglyceride 273 mg/dL High 40- 200 Cholesterol 166 mg/dL Less Than 200 60 High Density Lipoprotein 39 mg/dL Low 40-60 61 Cholesterol/HDL Ratio 4.26 AVERAGE 1-4.44 Low Density Lipoprotein 72 mg/dL Less Than 100 62 Laboratory test finding 01/18/2011 Hemoglobin A1c 5.5 5-7 Lipid Profile (Trig/Chol/HDL) 07/14/2010 Triglyceride 349 mg/dL High 40- 200 Cholesterol 224 mg/dL High Less Than 200 63 High Density Lipoprotein 39 mg/dL Low 40-60 64 Cholesterol/HDL Ratio 5.74 AVERAGE High 1-4.44 Low Density Lipoprotein 115 mg/dL High Less Than 100 65 Basic Metabolic Panel 07/14/2010 Sodium 134 mmol/L Low 135-145 Potassium 4.5 mmol/L 3.5-5.0 Chloride 100 mmol/L Low 101-111 Co2 (Carbon Dioxide) 28.0 mmol/L 22-32 Anion Gap 6.0 mmol/L 2-11 66 Glucose 108 mg/dL High 70-100 BUN 15 mg/dL 6-24 Creatinine 1.00 mg/dL 0.50-1.40 One Over Creatinine 1.00 BUN/Creatinine Ratio 15.0 8-20 Calcium 9.8 mg/dL 8.1-9.9 eGFR Non- 54.8 > 60 eGFR 70.5 > 60 67 Laboratory test finding 07/14/2010 TSH 2.93 MIU/ML 0.34-5.60 Comp Metabolic Panel 06/22/2010 Sodium 137 mmol/L 135-145 Potassium 4.2 mmol/L 3.5-5.0 Chloride 100 mmol/L Low 101-111 Co2 (Carbon Dioxide) 29.0 mmol/L 22-32 Anion Gap 8.0 mmol/L 2-11 68 Glucose 137 mg/dL High 70-100 BUN 17 mg/dL 6-24 Creatinine 1.10 mg/dL 0.50-1.40 One Over Creatinine 0.90 BUN/Creatinine Ratio 15.5 8-20 Calcium 9.6 mg/dL 8.1-9.9 Total Protein 7.0 GM/DL 6.2-8.1 Albumin 4.1 GM/DL 3.2-5.2 Globulin 2.9 GM/DL 2-4 Albumin/Globulin Ratio 1.4 1-3 Bilirubin Total 0.7 mg/dL 0.4-1.5 69 Alkaline Phosphatase 54 U/L 30-110 Alt (SGPT) 20 U/L 14-54 Ast (Sgot) 27 U/L 12-42 eGFR Non- 49.1 > 60 eGFR 63.1 > 60 70 CBC With Manual Diff 06/22/2010 White Blood [...] mmol/L 22-32 Anion Gap 7.0 mmol/L 2-11 71 Glucose 141 mg/dL High 70-100 72 BUN 18 mg/dL 6-24 Creatinine 1.40 mg/dL 0.50-1.40 One Over Creatinine 0.70 BUN/Creatinine Ratio 12.9 8-20 Calcium 9.1 mg/dL 8.1-9.9 Total Protein 6.3 GM/DL 6.2-8.1 Albumin 3.4 GM/DL 3.2-5.2 Globulin 2.9 GM/DL 2-4 Albumin/Globulin Ratio 1.2 1-3 Bilirubin Total 0.6 mg/dL 0.4-1.5 73 Alkaline Phosphatase 70 U/L 30-110 Alt (SGPT) 24 U/L 14-54 Ast (Sgot) 25 U/L 12-42 eGFR Non- 39.5 > 60 eGFR 47.8 > 60 74 Laboratory test finding 03/23/2010 Carcino Embryonic 1.99 NG/ML 0-5 75 Antigen Comp Metabolic Panel 12/22/2009 Sodium 134 mmol/L Low 135-145 Potassium 4.6 mmol/L 3.5-5.0 Chloride 96 mmol/L Low 101-111 Co2 (Carbon Dioxide) 30.0 mmol/L 22-32 Anion Gap 8.0 mmol/L 2-11 76 Glucose 67 mg/dL Low 70-100 77 BUN 16 mg/dL 6-24 Creatinine 0.80 mg/dL 0.50-1.40 One Over Creatinine 1.20 BUN/Creatinine Ratio 20.0 8-20 Calcium 9.6 mg/dL 8.1-9.9 Total Protein 6.8 GM/DL 6.2-8.1 Albumin 4.2 GM/DL 3.2-5.2 Globulin 2.6 GM/DL 2-4 Albumin/Globulin Ratio 1.6 1-3 Bilirubin Total 1.1 mg/dL 0.4-1.5 78 Alkaline Phosphatase 60 U/L 30-110 Alt (SGPT) 24 U/L 14-54 Ast (Sgot) 30 U/L 12-42 eGFR Non- 75.6 > 60 eGFR 91.5 > 60 79 Laboratory test finding 12/22/2009 Carcino Embryonic Antigen 2.32 NG/ML 0 -5 80 CBC With Manual Diff 12/22/2009 White Blood [...] mmol/L 22-32 Anion Gap 8.0 mmol/L 2-11 81 Glucose 76 mg/dL 70-100 82 BUN 14 mg/dL 6-24 Creatinine 0.90 mg/dL 0.50-1.40 One Over Creatinine 1.10 BUN/Creatinine Ratio 15.6 8-20 Calcium 9.7 mg/dL 8.1-9.9 83 Total Protein 7.1 GM/DL 6.2-8.1 Albumin 3.9 GM/DL 3.2-5.2 Globulin 3.2 GM/DL 2-4 Albumin/Globulin Ratio 1.2 1-3 Bilirubin Total 0.6 mg/dL 0.4-1.5 84 Alkaline Phosphatase 81 U/L 30-110 Alt (SGPT) 21 U/L 14-54 Ast (Sgot) 27 U/L 12-42 eGFR Non- 66.0 > 60 eGFR 79.8 > 60 85 Laboratory test finding 08/03/2009 Carcino Embryonic Antigen 1.48 NG/ML 0 -5 86 CBC With Manual Diff 04/26/2009 White Blood [...] Carcino Embryonic Antigen 1.59 NG/ML 0 -5 87 Comp Metabolic Panel 04/26/2009 Sodium 136 mmol/L 135-145 Potassium 4.5 mmol/L 3.5-5.0 Chloride 99 mmol/L Low 101-111 Co2 (Carbon Dioxide) 29.0 mmol/L 22-32 Anion Gap 8.0 mmol/L 2-11 88 Glucose 68 mg/dL Low 70-100 89 BUN 17 mg/dL 6-24 Creatinine 0.80 mg/dL 0.50-1.40 One Over Creatinine 1.20 BUN/Creatinine Ratio 21.3 High 8-20 Calcium 9.7 mg/dL 8.1-9.9 90 Total Protein 6.9 GM/DL 6.2-8.1 Albumin 4.0 GM/DL 3.2-5.2 Globulin 2.9 GM/DL 2-4 Albumin/Globulin Ratio 1.4 1-3 Bilirubin Total 0.6 mg/dL 0.4-1.5 91 Alkaline Phosphatase 70 U/L 30-110 Alt (SGPT) 26 U/L 14-54 Ast (Sgot) 31 U/L 12-42 eGFR Non- 75.6 > 60 eGFR 91.5 > 60 92 Laboratory test finding 03/31/2009 Vitamin B12 372 [...] NOTE) 93 Serum Immunofixation (SEE NOTE) 94 [place] 03/31/2009 Cary-1 Negative titer <1:240 Cary-2 Negative titer <1:240 Cary-3 Negative titer <1:240 Agna-1 Negative titer <1:240 Software Quality Automation Engineer-1 Negative titer <1:240 Software Quality Automation Engineer-2 Negative titer <1:240 Software Quality Automation Engineer-Tr Negative titer <1:240 Amphiphysin AB Negative titer <1:240 [id number] Negative titer () 95 Striational AB Negative titer <1:60 96 P/Q-Type Calcium Channel AB 0.00 nmol/L <=0.02 97 N-Type Calcium Channel AB 0.00 nmol/L <=0.03 98 Ach Receptor Binding AB 0.00 nmol/L <=0.02 99 Achr Ganglionic Neuronal AB 0.01 nmol/L <=0.02 100 VGKC AB, Serum 0.00 nmol/L <=0.02 101 Basic Metabolic Panel 03/23/2009 Sodium 140 mmol/L 135-145 Potassium 4.8 mmol/L 3.5-5.0 Chloride 103 mmol/L 101-111 Co2 (Carbon Dioxide) 28.0 mmol/L 22-32 Anion Gap 9.0 mmol/L 2-11 102 Glucose 74 mg/dL 70-100 103 BUN 20 mg/dL 6-24 Creatinine 1.00 mg/dL 0.50-1.40 One Over Creatinine 1.00 BUN/Creatinine Ratio 20.0 8-20 Calcium 9.6 mg/dL 8.1-9.9 104 eGFR Non- 58.4 > 60 eGFR 70.7 > 60 105 CBC With Manual Diff 01/20/2009 White Blood [...] mmol/L 22-32 Anion Gap 10.0 mmol/L 2-11 106 Glucose 99 mg/dL 70-100 107 BUN 16 mg/dL 6-24 Creatinine 0.90 mg/dL 0.50-1.40 One Over Creatinine 1.10 BUN/Creatinine Ratio 17.8 8-20 Calcium 9.6 mg/dL 8.1-9.9 108 Total Protein 7.1 GM/DL 6.2-8.1 Albumin 4.1 GM/DL 3.2-5.2 Globulin 3.0 GM/DL 2-4 Albumin/Globulin Ratio 1.4 1-3 Bilirubin Total 0.5 mg/dL 0.4-1.5 109 Alkaline Phosphatase 73 U/L 30-110 Alt (SGPT) 26 U/L 14-54 Ast (Sgot) 34 U/L 12-42 eGFR Non- 66.0 > 60 eGFR 79.8 > 60 110 Iron & Iron Binding Capacity 01/20/2009 Iron Total 91 g/dL 28-170 Unsaturated Iron Binding 287 g/dL Total Iron Binding Capacity 378 g/dL 250-450 % Iron Saturation 24 % 15-55 Laboratory test finding 01/20/2009 Ferritin 65 NG/ML 11.0-307 Vitamin B12 326 pg/mL 180-914 Carcino Embryonic Antigen 1.47 NG/ML 0-5 111 Protein Electrophoresis Serum 01/20/2009 Albumin 3.80 GM/DL [...] 7.3 GM/DL 6.2-8.1 Spep Comments (SEE NOTE) 112 Comp Metabolic Panel 01/20/2009 Sodium 138 mmol/L 135-145 Potassium 3.5 mmol/L 3.5-5.0 Chloride 103 mmol/L 101-111 Co2 (Carbon Dioxide) 27.0 mmol/L 22-32 Anion Gap 8.0 mmol/L 2-11 113 Glucose 100 mg/dL 70-100 114 BUN 15 mg/dL 6-24 Creatinine 1.00 mg/dL 0.50-1.40 One Over Creatinine 1.00 BUN/Creatinine Ratio 15.0 8-20 Calcium 9.4 mg/dL 8.1-9.9 115 Total Protein 7.2 GM/DL 6.2-8.1 Albumin 4.0 GM/DL 3.2-5.2 Globulin 3.2 GM/DL 2-4 Albumin/Globulin Ratio 1.3 1-3 Bilirubin Total 0.7 mg/dL 0.4-1.5 116 Alkaline Phosphatase 74 U/L 30-110 Alt (SGPT) 28 U/L 14-54 Ast (Sgot) 34 U/L 12-42 eGFR Non- 58.4 > 60 eGFR 70.7 > 60 117 Lipid Profile (Trig/Chol/HDL) 01/20/2009 Triglyceride 317 mg/dL High 40- 200 Cholesterol 247 mg/dL High Less Than 200 118 High Density Lipoprotein 35 mg/dL Low 40-60 119 Cholesterol/HDL Ratio 7.06 AVERAGE High 1-4.44 Low Density Lipoprotein 149 mg/dL High Less Than 100 120 Laboratory test 01/20/2009 TSH 3.32 MIU/ML 0.34-5.60 finding Surgical Pathology 03/04/2008 Surgical Pathology 121 <SEE NOTE> Comp Metabolic Panel 03/04/2008 Sodium 134 mmol/L Low 135-145 Potassium 3.6 mmol/L 3.5-5.0 Chloride 98 mmol/L Low 101-111 Co2 (Carbon Dioxide) 30.0 mmol/L 22-32 Anion Gap 6.0 mmol/L 2-11 122 Glucose 83 mg/dL 70-100 123 BUN 7 mg/dL 6-24 Creatinine 0.66 mg/dL 0.50-1.40 One Over Creatinine 1.50 BUN/Creatinine Ratio 10.6 8-20 Calcium 9.2 mg/dL 8.1-9.9 124 Total Protein 7.1 GM/DL 6.2-8.1 Albumin 3.5 GM/DL 3.2-5.2 Globulin 3.6 GM/DL 2-4 Albumin/Globulin Ratio 1.0 1-3 Bilirubin Total 0.6 mg/dL 0.4-1.5 Alkaline Phosphatase 97 U/L 30-110 Alt (SGPT) 15 U/L 14-54 Ast (Sgot) 28 U/L 12-42 Laboratory test finding 03/04/2008 [facility]cino Embryonic 41.68 NG/ML High 0-5 125 Antigen Iron & Iron Binding 02/27/2008 Iron Total 20 g/dL Low 28-170 126 Capacity Unsaturated Iron Binding 350 g/dL 126 Total Iron Binding Capacity 370 g/dL 250-450 126 % Iron Saturation 5 % Low 15-55 126 Laboratory test finding 02/27/2008 Ferritin < 10 NG/ML Low 11.0-307 126 Erythrocyte Sed Rate 59 MM/HR High 0-40 126 Comp Metabolic Panel 02/27/2008 Sodium 137 mmol/L 135-145 126 Potassium 3.5 mmol/L 3.5-5.0 126 Chloride 101 mmol/L 101-111 126 Co2 (Carbon Dioxide) 27.0 mmol/L 22-32 126 Anion Gap 9.0 mmol/L 2-11 126, 127 Glucose 134 mg/dL High 70-100 126, 128 BUN 11 mg/dL 6-24 126 Creatinine 0.80 mg/dL 0.50-1.40 126 One Over Creatinine 1.20 126 BUN/Creatinine Ratio 13.8 8-20 126 Calcium 9.5 mg/dL 8.1-9.9 126, 129 Total Protein 6.7 GM/DL 6.2-8.1 126 Albumin 3.6 GM/DL 3.2-5.2 126 Globulin 3.1 GM/DL 2-4 126 Albumin/Globulin Ratio 1.2 1-3 126 Bilirubin Total 0.3 mg/dL Low 0.4-1.5 126 Alkaline Phosphatase 105 U/L 30-110 126 Alt (SGPT) 15 U/L 14-54 126 Ast (Sgot) 24 U/L 12-42 126 Protein Electrophoresis Serum 02/27/2008 Albumin 3.04 GM/DL 3.0-4.35 126 Alpha 1 0.20 GM/DL 0.09-0.33 126 Alpha 2 0.98 GM/DL 0.59-1.18 126 Beta 1.08 GM/DL High 0.68-1.02 126 Gamma 1.40 GM/DL 0.76-1.60 126 Albumin % 45.4 % Low 46-63 126 Alpha 1 % 3.0 % 1.2-5.3 126 Alpha 2 % 14.6 % 9-17 126 Beta % 16.1 % High 10-16 126 Gamma % 20.9 % 12-22 126 A/G Ratio 0.8 Low 0.9-2 126 Total Protein 6.7 GM/DL 6.2-8.1 126 Spep Comments (SEE NOTE) 126, 130 CBC With Manual Diff 02/19/2008 White Blood [...] finding 02/19/2008 Hemoglobin A1c 5.8 % <6.0 131 Comp Metabolic Panel 01/29/2008 Sodium 139 mmol/L 135-145 Potassium 4.1 mmol/L 3.5-5.0 Chloride 99 mmol/L Low 101-111 Co2 (Carbon Dioxide) 32.0 mmol/L 22-32 Anion Gap 8.0 mmol/L 2-11 132 BUN 13 mg/dL 6-24 Creatinine 0.9 mg/dL 0.5-1.4 One Over Creatinine 1.11 BUN/Creatinine Ratio 14.4 8-20 Calcium 9.4 mg/dL 8.1-9.9 133 Albumin 3.5 GM/DL 3.2-5.2 Globulin 4.0 GM/DL 2-4 Albumin/Globulin Ratio 0.9 Low 1-3 Bilirubin Total 0.5 mg/dL 0.4-1.5 Alkaline Phosphatase 94 U/L 30-110 Alt (SGPT) 14 U/L 14-54 Ast (Sgot) 25 U/L 12-42 Glucose 84 mg/dL 70-100 134 Total Protein 7.5 GM/DL 6.2-8.1 Vitamin D, 25 Hydroxy 01/29/2008 25-Hydroxy Vitamin D2 <4.0 ng/mL () 25-Hydroxy Vitamin D3 35 ng/mL () 25-Hydroxy Vitamin D Total 35 ng/mL () 135 Lipid Profile (Trig/Chol/HDL) 01/29/2008 Triglyceride 311 mg/dL High 40- 200 Cholesterol 226 mg/dL High Less Than 200 136 Cholesterol/HDL Ratio 7.79 AVERAGE High 1-4.44 Low Density Lipoprotein 135 mg/dL High Less Than 100 137 High Density Lipoprotein 29 mg/dL Low 40-60 138 Laboratory test finding 01/29/2008 TSH 1.71 MIU/ML [...] 01/29/2008 Hemoglobin A1c 6.2 % High <6.0 139 1 Acute inflammation: >10.00 2 Because ethnic data is not always readily [...] 15-29 5 Kidney failure <15 (or dialysis) 3 Acute inflammation: >10.00 4 [facility] Severe Sepsis and Septic Shock Management Bundle Measure requires all lactic acids initially measuring >2.0 mmol/L be repeated. 5 Because ethnic data is not always readily [...] 15-29 5 Kidney failure <15 (or dialysis) 6 Acute inflammation: >10.00 7 >100 to <200 pg/mL: likely compensated congestive heart failure (CHF) 200 to 400 pg/mL: likely moderate CHF >400 pg/mL: likely moderate to severe CHF 8 [employer]: [id number] SEE RESULT BELOW Name: FRANCISCA COBURN : [address]: Heriberto Mejias MD Acct: [id number] Unit: [id number] AGE: 77 Location: ED Re06/15/17 SEX: F Status: REG ER SPEC: [id number] JUAN ANTONIO: 06/15/17-[address]: Heriberto Mejias MD REQ: [id number] RECD: 06/15/17 STATUS: MARYANN FLORES DR: Echo Rivero [employer] _ [facility] ORDERED: Flu A B Request Procedure Result Reported Site Rapid Influenza A B Request Final 06/15/17- 1329 ML Specimen received for Influenza A/B Molecular testing * ML - Main Lab . END OF REPORT DEPARTMENT OF PATHOLOGY, [address] [place] [address] Riky Samayoa M.D. Director [facility] # [id number] 10 Because ethnic data is not always [...] 5 Kidney failure <15 (or dialysis) 11 Acute inflammation: >10.00 12 Result TnIDx:0.05 Called to [id number] at: 13:32:38 by:[id number] Read back by: [id number] 13 >100 to <200 pg/mL: likely compensated congestive heart failure (CHF) 200 to 400 pg/mL: likely moderate CHF >400 pg/mL: likely moderate to severe CHF 14 [facility] Severe Sepsis and Septic Shock Management Bundle Measure requires all lactic acids initially measuring >2.0 mmol/L be repeated. 15 Because ethnic data is not always readily [...] 15-29 5 Kidney failure <15 (or dialysis) 16 Acute inflammation: >10.00 17 Because ethnic data is not always readily [...] 15-29 5 Kidney failure <15 (or dialysis) 18 Desirable: <150 Borderline High: 150-199 High: 200-499 Very High: >500 19 Desirable: <200 Borderline High: 200-239 High: >239 20 Low: <40 Desirable: 40-60 High: >60 21 Desirable: <100 Near Optimal: 100-129 Borderline High: 130-159 High: 160-189 Very High: >189 22 Desirable <150 Borderline high 150-199 High 200-499 Very High >500 23 Desirable <200 Borderline high 200-239 High >239 24 Low <40 Desirable: 40-60 High: >60 25 Desirable: <100 mg/dL Near Optimal: 100-129 mg/dL Borderline High: 130-159 mg/dL High: 160-189 mg/dL Very High: >189 mg/dL 26 Because ethnic data is not always [...] 5 Kidney failure <15 (or dialysis) 27 Because ethnic data is not always [...] 5 Kidney failure <15 (or dialysis) 28 Desirable <150 Borderline high 150-199 High 200-499 Very High >500 29 Desirable <200 Borderline high 200-239 High >239 30 Low <40 Desirable: 40-60 High: >60 31 Desirable: <100 mg/dL Near Optimal: 100-129 mg/dL Borderline High: 130-159 mg/dL High: 160-189 mg/dL Very High: >189 mg/dL 32 *Ascorbic acid is present which may interfere with detection of blood. 33 RUN DATE: 02/14/14 [facility] LAB LIVE PAGE 1 RUN TIME: [address] [place] [address] Specimen Inquiry Name: FRANCISCA COBURN : [address]: Jose Marin MD Acct: [id number] Unit: [id number] AGE: 74 Location: [facility] Re02/12/14 SEX: F Status: REG REF SPEC: [id number] JUAN ANTONIO: 02/12/14-[address]: Jose Marin MD REQ: [id number] RECD: 02/12/14-125 STATUS: MARYANN FLORES DR: Alexi Kim III, MD _ SOURCE: URINE SPDESC: ORDERED: Urine Culture Procedure Result Verified Site Urine Culture Final 02/14/14- 0807 ML Organism 1 ESCHERICHIA COLI [place] Count 75-100,000 (Many) CFU/ML Organism 2 ENTEROCOCCUS SPECIES GP D [place] Count >100,000 (Many) CFU/ML 1. ESCHERICHIA COLI [...] at Main Lab DEPARTMENT OF PATHOLOGY, [facility] [employer] [place] [address] Riky Samayoa M.D. Director [place] # [id number] RUN DATE: 02/14/14 [facility] LAB LIVE PAGE 2 RUN TIME: 806 [facility] [employer] [place], [place] [address] Specimen Inquiry Patient: FRANCISCA COBURN [id number] (Continued) Specimen: [id number] Collected: 02/12/14-1199 Received: 02/12/14-1250 (Continued) Procedure Result [...] These antibiotics are not available in the [facility] Formulary Contact the Microbiology Department for any additional antibiotic reporting. Contact the Microbiology Department for any additional antibiotic reporting. END OF REPORT * ML=Testing performed at Main Lab DEPARTMENT OF PATHOLOGY, [address] [place] [address] Riky Samayoa M.D. Director [facility] # [id number] SURGERY DATE: 02/17/14 35 Because ethnic data is not always readily [...] 15-29 5 Kidney failure <15 (or dialysis) 36 PT IS FASTING 37 Desirable <150 Borderline high 150-199 High 200-499 Very High >500 38 Desirable <200 Borderline high 200-239 High >239 39 Low <40 Desirable: 40-60 High: >60 40 Desirable <100 Near Optimal 100-129 Borderline high 130-159 High 160-189 Very High >189 41 Because ethnic data is not always readily [...] 15-29 5 Kidney failure <15 (or dialysis) 42 -- REFERENCE VALUE -- 25-HYDROXY D TOTAL (D2+D3) Optimum levels in the healthy population are 20-50, patients with bone disease may benefit from higher levels within this range. Test Performed by: [address] [address] Assistant Coach: Souleymane Weinstein III, M.D. 43 Because ethnic data is not always readily [...] 15-29 5 Kidney failure <15 (or dialysis) 44 Reference Range and Interpretation: TnI (ng/mL) Interpretation Less Than 0.06 ng/mL Not supportive of diagnosis of VT 0.06 - 0.50 ng/mL Indeterminate: suggest serial studies if clinically indicated. Greater than 0.5 ng/mL Consistent with diagnosis of VT 45 PT IS FASTING 46 Because ethnic data is not always readily [...] 15-29 5 Kidney failure <15 (or dialysis) 47 HDL Interpretation: Undesirable: High Risk: Less than 40 MG/DL Desirable: Low Risk: Greater than 60 MG/DL 48 LDL Interpretation: Low Risk Optimal Level: LDL Less than 100 MG/DL Near or Above Optimal: LDL 100-129 MG/DL Borderline High Risk: LDL 130-159 MG/DL High Risk: LDL 160-189 MG/DL Very High Risk: LDL Greater than 189 MG/DL 49 Therapeutic target for the treatment of diabetes Mellitus patients is <7% HBA1C, and in selective patients <6.0%.Please refer to [place] [employer] Diabetic care guidelines for further information. 50 RUN DATE: 03/18/12 [facility] LAB LIVE PAGE 1 RUN TIME: [address] [place] [address] Specimen Inquiry Name: BLANEFRANCISCA G : [address]: Cuong Lorenzo MD Acct: [id number] Unit: [id number] AGE: 72 Location: [facility] Re03/14/12 SEX: F Status: REG REF SPEC: [id number] JUAN ANTONIO: 03/14/12- SUBM DR: Cuong Lorenzo MD REQ: [id number] RECD: 03/15/12 STATUS: ASHLY FLORES DR: Abram Cm MD ENTERED: 03/15/12 SP TYPE: SURGICAL Alexi Lai III, MD _ ORDERED: LEVEL IV/2 FINAL DIAGNOSIS 1. [...] at Main Lab DEPARTMENT OF PATHOLOGY, [facility] [employer] [place] [address] Riky Samayoa M.D. Director [facility] Permit #[id number] RUN DATE: 03/18/12 [facility] LAB LIVE PAGE 2 RUN TIME: 1404 [facility] [employer] [place], [place] [address] Specimen Inquiry Patient: FRANCISCA COBURN [id number] (Continued) GROSS DESCRIPTION (Continued) Signed (signature on file) Riky Samayoa MD 1404 END OF REPORT * ML=Testing performed at Main Lab DEPARTMENT OF PATHOLOGY, [address] [place] [address] Riky Samayoa M.D. Director [facility] Permit #[id number] 51 CHOLESTEROL INTERPRETATION: Desirable: Less than 200 MG/DL Borderline-High Risk: 200-239 MG/DL High-Risk: 240 MG/DL and over 52 HDL INTERPRETATION: Undesirable: High Risk: Less than 40 MG/DL Desirable: Low Risk: Greater than 60 MG/DL 53 LDL INTERPRETATION: Low Risk Optimal Level: LDL Less than 100 MG/DL Near or Above Optimal: LDL 100-129 MG/DL Borderline High Risk: LDL 130-159 MG/DL High Risk: LDL 160-189 MG/DL Very High Risk: LDL Greater than 189 MG/DL 54 Anion gap measurement may be of limited value in the presence of any alkalosis, especially in a combined acid base disorder. . 55 A metabolite of Naproxen, O-desmethylnaproxen, has been shown to interfere with the [place] method for measuring total bilirubin. Samples from patients who have taken Naproxen have shown spurious elevation in total bilirubin levels. 56 Because ethnic data is not always readily [...] 15-29 5 Kidney failure <15 (or dialysis) 57 THERAPEUTIC TARGET FOR THE TREATMENT OF DIABETES MELLITUS PATIENTS IS <7% HBA1C, AND IN SELECTIVE PATIENTS <6.0%. PLEASE REFER TO [place] [employer] DIABETIC CARE GUIDELINES FOR FURTHER INFORMATION. 58 Test Performed by: [facility] Dpt of Lab Med and Pathology [address] [place] [address] Assistant Coach: Souleymane Weinstein III, M.D. 59 -- REFERENCE VALUE -- Not present Test Performed by: [facility] Dpt of Lab Med and Pathology [address] [place] [address] Assistant Coach: Souleymane Weinstein III, M.D. 60 CHOLESTEROL INTERPRETATION: Desirable: Less than 200 MG/DL Borderline-High Risk: 200-239 MG/DL High-Risk: 240 MG/DL and over 61 HDL INTERPRETATION: Undesirable: High Risk: Less than 40 MG/DL Desirable: Low Risk: Greater than 60 MG/DL 62 LDL INTERPRETATION: Low Risk Optimal Level: LDL Less than 100 MG/DL Near or Above Optimal: LDL 100-129 MG/DL Borderline High Risk: LDL 130-159 MG/DL High Risk: LDL 160-189 MG/DL Very High Risk: LDL Greater than 189 MG/DL 63 CHOLESTEROL INTERPRETATION: Desirable: Less than 200 MG/DL Borderline-High Risk: 200-239 MG/DL High-Risk: 240 MG/DL and over 64 HDL INTERPRETATION: Undesirable: High Risk: Less than 40 MG/DL Desirable: Low Risk: Greater than 60 MG/DL 65 LDL INTERPRETATION: Low Risk Optimal Level: LDL Less than 100 MG/DL Near or Above Optimal: LDL 100-129 MG/DL Borderline High Risk: LDL 130-159 MG/DL High Risk: LDL 160-189 MG/DL Very High Risk: LDL Greater than 189 MG/DL 66 Anion gap measurement may be of limited value in the presence of any alkalosis, especially in a combined acid base disorder. . 67 Because ethnic data is not always [...] 5 Kidney failure <15 (or dialysis) 68 Anion gap measurement may be of limited value in the presence of any alkalosis, especially in a combined acid base disorder. . 69 A metabolite of Naproxen, O-desmethylnaproxen, has been shown to interfere with the [place] method for measuring total bilirubin. Samples from patients who have taken Naproxen have shown spurious elevation in total bilirubin levels. 70 Because ethnic data is not always readily [...] 15-29 5 Kidney failure <15 (or dialysis) 71 Anion gap measurement may be of limited value in the presence of any alkalosis, especially in a combined acid base disorder. . 72 Note change in reference range as of 12/05/07. The change was based on recommendations from the [place] [employer]. 73 A metabolite of Naproxen, O-desmethylnaproxen, has been shown to interfere with the Jendrassik-Agusto method for measuring total bilirubin. Samples from patients who have taken Naproxen have shown spurious elevation in total bilirubin levels. 74 Because ethnic data is not always readily [...] 15-29 5 Kidney failure <15 (or dialysis) 75 SMOKING MAY INCREASE VALUES SERUM LEVELS OF CEA MEASURED USING THE [employer] ACCESS IMMUNOASSAY SYSTEM SHOULD NOT BE INTERPRETED ABSOLUTE EVIDENCE OF THE PRESENCE OR ABSENCE OF DISEASE. THE CEA VALUE SHOULD BE USED IN CONJUNCTION WITH OTHER PERTINENT CLINICAL DIAGNOSTIC PROCEDURES. 76 Anion gap measurement may be of limited value in the presence of any alkalosis, especially in a combined acid base disorder. . 77 Note change in reference range as of 12/05/07. The change was based on recommendations from the [place] [employer]. 78 A metabolite of Naproxen, O-desmethylnaproxen, has been shown to interfere with the Jendrassik-Agusto method for measuring total bilirubin. Samples from patients who have taken Naproxen have shown spurious elevation in total bilirubin levels. 79 Because ethnic data is not always readily [...] 15-29 5 Kidney failure <15 (or dialysis) 80 SMOKING MAY INCREASE VALUES SERUM LEVELS OF CEA MEASURED USING THE [employer] ACCESS IMMUNOASSAY SYSTEM SHOULD NOT BE INTERPRETED ABSOLUTE EVIDENCE OF THE PRESENCE OR ABSENCE OF DISEASE. THE CEA VALUE SHOULD BE USED IN CONJUNCTION WITH OTHER PERTINENT CLINICAL DIAGNOSTIC PROCEDURES. 81 Anion gap measurement may be of limited value in the presence of any alkalosis, especially in a combined acid base disorder. . 82 Note change in reference range as of 12/05/07. The change was based on recommendations from the [place] [employer]. 83 Please note change in reference range effective 07 . 84 A metabolite of Naproxen, O-desmethylnaproxen, has been shown to interfere with the [place]rass[place] method for measuring total bilirubin. Samples from patients who have taken Naproxen have shown spurious elevation in total bilirubin levels. 85 Because ethnic data is not always readily [...] 15-29 5 Kidney failure <15 (or dialysis) 86 SMOKING MAY INCREASE VALUES SERUM LEVELS OF CEA MEASURED USING THE [employer] ACCESS IMMUNOASSAY SYSTEM SHOULD NOT BE INTERPRETED ABSOLUTE EVIDENCE OF THE PRESENCE OR ABSENCE OF DISEASE. THE CEA VALUE SHOULD BE USED IN CONJUNCTION WITH OTHER PERTINENT CLINICAL DIAGNOSTIC PROCEDURES. 87 SMOKING MAY INCREASE VALUES SERUM LEVELS OF CEA MEASURED USING THE [employer] ACCESS IMMUNOASSAY SYSTEM SHOULD NOT BE INTERPRETED ABSOLUTE EVIDENCE OF THE PRESENCE OR ABSENCE OF DISEASE. THE CEA VALUE SHOULD BE USED IN CONJUNCTION WITH OTHER PERTINENT CLINICAL DIAGNOSTIC PROCEDURES. 88 Anion gap measurement may be of limited value in the presence of any alkalosis, especially in a combined acid base disorder. . 89 Note change in reference range as of 12/05/07. The change was based on recommendations from the [place] [employer]. 90 Please note change in reference range effective 07 . 91 A metabolite of Naproxen, O-desmethylnaproxen, has been shown to interfere with the Jendrassik-Agusto method for measuring total bilirubin. Samples from patients who have taken Naproxen have shown spurious elevation in total bilirubin levels. 92 Because ethnic data is not always readily [...] 15-29 5 Kidney failure <15 (or dialysis) 93 NORMAL ELECTROPHORETIC PATTERN. 94 NORMAL SERUM IMMUNOFIXATION ELECTROPHORETIC PATTERN. NO MONOCLONAL PROTEIN DETECTED. 95 -- REFERENCE VALUE -- Negative at <1:240 Titers lower than 1:240 may be detectable by recombinant CRMP-5 western blot analysis. CRMP-5 western blot analysis will be done by request on stored serum (held 4 weeks). This supplemental testing is recommended in cases of chorea, vision loss, cranial neuropathy and myelopathy. Contact [facility] Inquiry at [phone] ([phone])to add-on CRMP-5-IgG Western Blot, S. Test Performed by: [facility] Dpt of Lab Med and Pathology [address] [place] [address] Assistant Coach: Souleymane Weinstein III, M.D. 96 Test Performed by: [facility] Dpt of Lab Med and Pathology [address] [place] [address] Assistant Coach: Souleymane Weinstein III, M.D. 97 Test Performed by: [facility] Dpt of Lab Med and Pathology [address] [place] [address] Assistant Coach: Souleymane Weinstein III, M.D. 98 Test Performed by: [facility] Dpt of Lab Med and Pathology [address] [place] [address] Assistant Coach: Souleymane Weinstein III, M.D. 99 Test Performed by: [facility] Dpt of Lab Med and Pathology [address] [place] [address] Assistant Coach: Souleymane Weinstein III, M.D. 100 Test Performed by: [facility] Dpt of Lab Med and Pathology [address] [place] [address] Assistant Coach: Souleymane Weinstein III, M.D. 101 Test Performed by: [facility] Dpt of Lab Med and Pathology [address] [place] [address] Assistant Coach: Souleymane Weinstein III, M.D. 102 Anion gap measurement may be of limited value in the presence of any alkalosis, especially in a combined acid base disorder. . 103 Note change in reference range as of 12/05/07. The change was based on recommendations from the [place] [employer]. 104 Please note change in reference range effective 07 . 105 Because ethnic data is not always readily [...] 15-29 5 Kidney failure <15 (or dialysis) 106 Anion gap measurement may be of limited value in the presence of any alkalosis, especially in a combined acid base disorder. . 107 Note change in reference range as of 12/05/07. The change was based on recommendations from the [place] [employer]. 108 Please note change in reference range effective 07 . 109 A metabolite of Naproxen, O-desmethylnaproxen, has been shown to interfere with the Jendrassik-Agusto method for measuring total bilirubin. Samples from patients who have taken Naproxen have shown spurious elevation in total bilirubin levels. 110 Because ethnic data is not always readily [...] 15-29 5 Kidney failure <15 (or dialysis) 111 SMOKING MAY INCREASE VALUES SERUM LEVELS OF CEA MEASURED USING THE [employer] ACCESS IMMUNOASSAY SYSTEM SHOULD NOT BE INTERPRETED ABSOLUTE EVIDENCE OF THE PRESENCE OR ABSENCE OF DISEASE. THE CEA VALUE SHOULD BE USED IN CONJUNCTION WITH OTHER PERTINENT CLINICAL DIAGNOSTIC PROCEDURES. 112 NORMAL ELECTROPHORETIC PATTERN. 113 Anion gap measurement may be of limited value in the presence of any alkalosis, especially in a combined acid base disorder. . 114 Note change in reference range as of 12/05/07. The change was based on recommendations from the [place] [employer]. 115 Please note change in reference range effective 07 . 116 A metabolite of Naproxen, O-desmethylnaproxen, has been shown to interfere with the [place]rass[place] method for measuring total bilirubin. Samples from patients who have taken Naproxen have shown spurious elevation in total bilirubin levels. 117 Because ethnic data is not always readily [...] 15-29 5 Kidney failure <15 (or dialysis) 118 CHOLESTEROL INTERPRETATION: Desirable: Less than 200 MG/DL Borderline-High Risk: 200-239 MG/DL High-Risk: 240 MG/DL and over 119 HDL INTERPRETATION: Undesirable: High Risk: Less than 40 MG/DL Desirable: Low Risk: Greater than 60 MG/DL 120 LDL INTERPRETATION: Low Risk Optimal Level: LDL Less than 100 MG/DL Near or Above Optimal: LDL 100-129 MG/DL Borderline High Risk: LDL 130-159 MG/DL High Risk: LDL 160-189 MG/DL Very High Risk: LDL Greater than 189 MG/DL 121 ----- RUN DATE: 03/05/08 [facility] NMI LIVE PAGE 1 RUN TIME: 1419 Specimen Inquiry RUN USER: INTERFACE -- Name: FRANCISCA COBURN#: [id number] Status: REG REF Re03/04/08 Age/Sex: 68/F Unit#: [id number] Location: [address] [place] [address].O.B. : 40 -- Specimen: [id number] Spec Date: 03/04/[address]: Joce [...] 03/05/08 1419 -- -- DEPARTMENT OF PATHOLOGY, [address] [place] [address] [address] [facility] Permit #[id number] Riky Samayoa M.D. Director Nghia Vasquez M.D. Client Advisor Dir ricardo -- 122 Anion gap measurement may be of limited value in the presence of any alkalosis, especially in a combined acid base disorder. . 123 Note change in reference range as of 12/05/07. The change was based on recommendations from the [place] [employer]. 124 Please note change in reference range effective 07 . 125 SMOKING MAY INCREASE VALUES SERUM LEVELS OF CEA MEASURED USING THE [employer] ACCESS IMMUNOASSAY SYSTEM SHOULD NOT BE INTERPRETED ABSOLUTE EVIDENCE OF THE PRESENCE OR ABSENCE OF DISEASE. THE CEA VALUE SHOULD BE USED IN CONJUNCTION WITH OTHER PERTINENT CLINICAL DIAGNOSTIC PROCEDURES. 126 PATIENT MAY HAVE RESULTS PER DOCTOR'S AUTHORIZATION. Questions regarding this report should be directed to your doctor. 127 Anion gap measurement may be of limited value in the presence of any alkalosis, especially in a combined acid base disorder. . 128 Note change in reference range as of 12/05/07. The change was based on recommendations from the [place] [employer]. 129 Please note change in reference range effective 07 . 130 INCREASED BETA GLOBULIN- CONSISTENT WITH HYPERLIPO- PROTEINEMIA OR IRON DEFICIENCY. 131 THERAPEUTIC TARGET FOR THE TREATMENT OF DIABETES MELLITUS PATIENTS IS <7% HBA1C, AND IN SELECTIVE PATIENTS <6.0%. PLEASE REFER TO [place] [employer] DIABETIC CARE GUIDELINES FOR FURTHER INFORMATION. 132 Anion gap measurement may be of limited value in the presence of any alkalosis, especially in a combined acid base disorder. . 133 Please note change in reference range effective 07 . 134 Note change in reference range as of 12/05/07. The change was based on recommendations from the [place] [employer]. 135 -- REFERENCE VALUE -- 25-HYDROXY D TOTAL (D2+D3) Optimum levels in the normal population are 25-80 Test Performed by: [facility] Dpt of Lab Med and Pathology [address] [place] [address] Assistant Coach: Souleymane Weinstein III, M.D. 136 CHOLESTEROL INTERPRETATION: Desirable: Less than 200 MG/DL Borderline-High Risk: 200-239 MG/DL High-Risk: 240 MG/DL and over 137 LDL INTERPRETATION: Low Risk Optimal Level: LDL Less than 100 MG/DL Near or Above Optimal: LDL 100-129 MG/DL Borderline High Risk: LDL 130-159 MG/DL High Risk: LDL 160-189 MG/DL Very High Risk: LDL Greater than 189 MG/DL 138 HDL INTERPRETATION: Undesirable: High Risk: Less than 40 MG/DL Desirable: Low Risk: Greater than 60 MG/DL 139 THERAPEUTIC TARGET FOR THE TREATMENT OF DIABETES MELLITUS PATIENTS IS <7% HBA1C, AND IN SELECTIVE PATIENTS <6.0%. PLEASE REFER TO [employer] DIABETIC CARE GUIDELINES FOR FURTHER INFORMATION. Procedures Date CPT Code Description Status 08/31/2017 92579 EKG Tracing & Interpretation Completed 06/17/2017 84704 ECHO Transthorasic Realtime 2D W Doppler & Color Flow Completed Hosp 06/16/2017 30674 EKG, Interpretation Only Completed 03/30/2017 Mammogram Completed 02/27/2017 98669 Diffusing Capacity Completed 02/27/2017 61397 Spirometry Incl Graphic Record Completed 10/27/2016 01318 Admin Of Inj Completed 02/29/2016 12695 Chemotherpy Admin Subcutaneous/Im Non-Hormonal Completed Anti-Neoplastic 05/11/2015 28716 Chemotherpy Admin Subcutaneous/Im Non-Hormonal Completed Anti-Neoplastic 04/01/2015 Bone Mineral Density Test Completed 04/01/2015 Mammogram Completed 03/31/2015 61872 Pulmonary Stress Test Simple Completed 10/07/2014 05389 Admin Of Inj Completed 09/23/2014 48439 Pulmonary Stress Test Simple Completed 04/20/2014 01881 Admin Of Inj Completed 03/30/2014 87763 Rad Exam; Hip Unilat Completed 03/30/2014 64105 Rad Exam; Pelvis Completed 02/17/2014 16599 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 02/17/2014 91165 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 02/12/2014 19932 Spirometry Incl Graphic Record Completed 02/09/2014 71864 Spirometry Incl Graphic Record, Timed Expiratory Flow Completed Rate 02/04/2014 53692 EKG Tracing & Interpretation Completed 12/29/2013 65613 Rad Exam; Hip Unilat Completed 12/29/2013 57567 Rad Exam; Pelvis Completed 10/06/2013 24389 Chemotherpy Admin Subcutaneous/Im Non-Hormonal Completed Anti-Neoplastic 10/06/2013 61620 Admin Of Inj Completed 09/29/2013 33540 Rad Exam; Hip Unilat Comp Completed 09/29/2013 53966 Rad Exam; Pelvis Completed 08/25/2013 50844 Pulmonary Function><Bronchodilator Completed 04/14/2013 09260 Rad Exam; Hip Unilat Completed 04/14/2013 78300 Rad Exam; Pelvis Completed 02/17/2013 Mammogram Completed 02/17/2013 Bone Mineral Density Test Completed 01/06/2013 69504 Rad Exam; Hip Unilat Completed 01/06/2013 16982 Rad Exam; Pelvis Completed 10/14/2012 65859 Rad Exam; Hip Unilat Completed 10/14/2012 15015 Rad Exam; Wrist Limited, 2 Views Completed 10/14/2012 44142 Rad Exam; Pelvis Completed 09/12/2012 77942 Open TX Of Femoral FX,Promimal End,Neck Internal Completed Fixation 09/12/2012 13804 Open TX Of Femoral FX,Promimal End,Neck Internal Completed Fixation 09/12/2012 29429 Closed Treatment Distal Radial FX W/Manipulation Completed 03/20/2012 Colonoscopy Completed 01/25/2011 Bone Mineral Density Test Completed 01/25/2011 Mammogram Completed 02/04/2010 37337 Admin Of Inj Completed 09/29/2009 28123 Pulmonary Function><Bronchodilator Completed 06/23/2009 39209 EKG, Interpretation Only Completed 03/13/2008 38570 EKG, Interpretation Only Completed 03/04/2008 Colonoscopy Completed Encounters Type Date Location Provider CPT E/M Dx Office Visit 08/31/2017 [facility] [place] [address] I50[address]32 3:00p [facility] FACC I10 J44.9 I35.0 E78.5 F17.201 I71.4 Office Visit 08/14/2017 1:30p [facility] [place] [address] [facility] R09.02 Office Visit 08/03/2017 4:00p [facility] Internal Medicine Echo Rivero N.P. 66411 J44.1 - [place] I10 E87.1 M54.5 I71.4 I34.9 Office Visit 07/27/2017 10:35a [facility] MICHELLE Salcido 14683 J44.1 Assoc,pc Hospitalists I50.33 I10 F41.8 Office Visit 07/26/2017 1:32p [facility] [place] [address] Z87.891 Services Of [employer] J44.1 I50.31 R06.02 Office Visit 07/26/2017 10:34a [facility] MICHELLE Salcido 28302 J44.1 Assoc,pc Hospitalists I50.33 I10 F41.8 Office Visit 07/25/2017 10:33a [facility] MICHELLE Salcido 69118 J44.1 Assoc,pc Hospitalists I50.33 I10 F41.8 Office Visit 07/25/2017 3:43p [facility] [place] [address] J44.1 Services Of [employer] I50.31 Z87.891 R06.02 Z99.81 Office Visit 07/24/2017 10:31a [facility], Shanti Cody, N.P. 58745 J44.1 Hospitalists I50.33 I10 F41.8 Office Visit 07/23/2017 10:29a [facility],pc Shanti Cody, N.P. 18358 J44.1 Hospitalists I10 F41.8 Office Visit 07/22/2017 [facility] [address] J44.1 [facility]oc,pc Hospitalists I10 F41.8 Office Visit 07/21/2017 10:27a [facility], Jaylen Uribe, 05276 J44.1 Hospitalists [facility]ande[facility] I10 F41.8 Office Visit 07/03/2017 8:00a [facility] [place] [address] M54.5 Office Visit 07/01/2017 8:00[place] [facility] [place] [address] M54.5 J44.9 Office Visit 06/26/2017 8:45a [facility] [place] [address] M54.5 S22.080A Office Visit 06/25/2017 2:00p [facility] Elsi Burciaga, 00480 J44.9 Services Of [employer] N.P. Office Visit 06/20/2017 8:15a [facility] Elinor Muñoz, 55605 S22.080A Yolande J44.9 I50.9 I10 Office Visit 06/19/2017 10:07a [facility], [place] [address] J96.21 Hospitalists J44.1 S22.080A Office Visit 06/18/2017 10:06a [facility], [place] [address] J96.21 Hospitalists J44.1 S22.080A Office Visit 06/17/2017 10:05a [facility], [place] [address] J96.21 Hospitalists J44.1 S22.080A Office Visit 06/16/2017 10:04a [facility], [place] [address] J96.21 Hospitalists J44.1 S22.080A Office Visit 06/15/2017 11:15a [facility], [place] [address] J96.21 Hospitalists J44.1 E87.1 S22.080A Office Visit 06/02/2017 10:59a [facility], [place] [address] M48.54xA Hospitalists K59.03 E87.1 M81.0 Office Visit 06/01/2017 10:58a [facility], [place] [address] M48.54xA Hospitalists K59.03 E87.1 M81.0 Office Visit 05/31/2017 10:57a [facility], [place] [address] M48.54xA Hospitalists K59.03 E87.1 M81.0 Office Visit 05/30/2017 10:55a [facility] Jaylen Uribe, 95262 M48.54xA Assoc, Hospitalists Yolande,FACP K59.03 J44.9 M81.0 Office Visit 05/29/2017 10:53a [facility] Tiffany Vargas, 69132 M48.54xA [facility] Hospitalists K59.03 J44.9 M81.0 Office Visit 05/16/2017 2:40p [facility] Internal Medicine Sundar Mendiola, UNIQUE [address]85 M54.5 - [place] Office Visit 03/06/2017 1:20p [facility] Internal Medicine Echo Rivero N.P. 88122 J44.9 - [place] M81.0 I10 E78.00 R60.0 Z12.31 Office Visit 02/13/2017 1:00p [facility] [place] [address] [facility] R09.02 Office Visit 01/24/2017 1:45p [facility] Of Jose Marin M.D. 54238 Z96.642 C.M.A. M21.752 Office Visit 08/29/2016 2:00p [facility] Internal Medicine - Alexi Kim, 94183 I10 Zainab Lanier J44.9 M81.0 Office Visit 08/08/2016 1:00p [facility] [place] [address] [facility] Office Visit 02/29/2016 2:00p [facility] Medicine Huan Kim, 51548 I10 Zainab Lanier J44.9 M81.0 E78.2 Z85.038 Z92.29 Office Visit 02/08/2016 1:00p [facility] [place] [address] [facility] Office Visit 01/26/2016 1:30p [facility] Jose Marin M.D. 37577 Z96.642 C.M.A. Office Visit 09/28/2015 3:45p [facility] [place] [address] [facility] J98.4 Office Visit 03/31/2015 1:00p [facility] [place] [address] [facility] R09.02 E66.09 Office Visit 03/01/2015 2:00p [facility] Internal Medicine - Alexi Kim, 72316 I10 Aleja Lanier J44.9 M81.0 Z12.31 E78.2 Office Visit 01/25/2015 10:45a [facility] Marin M.D. 60685 Z96.642 C.M.A. M16.12 Z09 Office Visit 09/28/2014 1:00p [facility] [place] [address] [facility] 799.02 278.00 Office Visit 06/29/2014 10:45a [facility] Jose Marin M.D. 53852 715.95 C.M.A. v54.81 V43.64 Office Visit 04/20/2014 4:00p [facility] Internal Medicine Alexi Kim, 87113 724.2 - Aleja Lanier 733.01 V87.49 Office Visit 04/13/2014 11:00a [facility] [place] [address] [facility] 518.89 799.02 Office Visit 03/04/2014 1:22p [facility] [place] [address] 496 Services Of [employer] Office Visit 02/26/2014 2:39p [facility] [place] [address] 496 Services Of [employer] 786.05 Office Visit 02/25/2014 2:31p [facility] [place] [address] [facility] 786.05 Office Visit 02/19/2014 3:03p [facility], Elsi Burciaga, 56869 496 Hospitalists N.P. 401.9 278.00 V43.64 Office Visit 02/18/2014 3:03p [facility], Elsi Burciaga 42398 496 Hospitalists N.P. 401.9 278.00 V43.64 Office Visit 02/17/2014 3:02p [facility], Shanti Cody N.PDeep 55740 496 Hospitalists 401.9 278.00 V43.64 Office Visit 02/09/2014 10:15a [facility] [place] [address] [facility] V72.83 Office Visit 02/04/2014 2:00p [facility] Internal Medicine Alexi Kim, 76922 V72.81 - Aleja Lanier 715.95 401.1 496 272.2 733.01 V04.81 Office Visit 12/29/2013 10:00a [facility] Jose Marin M.D. 41375 715.95 C.M.A. Office Visit 09/29/2013 9:45a [facility] Jose Marin M.D. 08875 715.95 C.M.A. Office Visit 04/14/2013 9:15a [facility] Jose Marin M.D. 62810 820.8 C.M.A. Office Visit 02/24/2013 1:20p [facility] Internal Medicine - Alexi Kim, 99521 496 Aleja Lanier 733.00 272.2 401.1 820.8 Office Visit 01/06/2013 9:00a [facility] Marin M.D. 91997 813.42 C.M.A. 820.8 Office Visit 09/15/2012 1:32p [facility], Shanti Cody, N.P. 74122 492.8 Hospitalists 276.1 820.8 813.42 Office Visit 09/14/2012 1:31p [facility], Shanti Cody N.P. 53447 492.8 Hospitalists 276.1 820.8 813.42 Office Visit 09/13/2012 1:31p [facility], Wanda Montaño, 63860 492.8 Hospitalists M.D. 820.8 813.42 Office Visit 09/12/2012 10:00a [facility] Marin M.D. 04581 820.8 C.M.A. 813.44 Office Visit 09/12/2012 1:30p [facility], Elinor Muñoz, 09686 820.8 Hospitalists M.D. 813.42 492.8 276.1 Office Visit 02/23/2012 11:00a [facility] Internal Medicine Alexi Kim, 94432 401.1 - [facility].DDeep 496 790.21 272.2 733.00 153.3 Office Visit 08/23/2011 11:00a [employer] Internal Medicine [facility], 73201 401.1 - [facility].DDeep 496 790.21 272.2 733.00 153.3 Office Visit 02/22/2011 10:40a DO Not Use [employer] AT [facility], 86161 401.1 [facility] M.D. 272.2 Office Visit 01/18/2011 2:40p DO Not Use [employer] AT [facility], 69179 401.1 [facility] M.D. 272.2 496 790.21 733.00 V76.10 153.8 V04.81 Office Visit 07/11/2010 4:00p DO Not Use [employer] AT [facility], 38171 496 [facility] M.D. 272.2 401.1 Office Visit 01/10/2010 11:20a DO Not Use [employer] AT [facility], 76161 V72.83 [facility].D. V72.81 366.8 401.9 496 272.2 Office Visit 09/29/2009 11:40a DO Not Use [employer] AT [facility], 54869 496 [facility] M.D. 401.9 272.2 Office Visit 06/22/2009 11:40a DO Not Use [employer] AT [facility], 17286 466.0 [facility] M.D. Office Visit 06/08/2009 2:00p DO Not Use [employer] AT [facility], 69844 401.1 [facility] M.D. Office Visit 03/01/2009 2:30p DO Not Use [employer] AT [facility], 39196 782.3 [facility] M.D. 401.1 Office Visit 02/11/2009 2:30p DO Not Use [employer] AT [facility], 67288 401.1 [facility] M.D. 782.3 Office Visit 10/06/2008 2:15p [facility] AT [facility], 79445 724.5 [facility] M.Terence Office Visit 07/29/2008 2:30p [facility] AT [facility], 71709 V72.81 [facility] M.D. 401.9 250.00 272.0 733.00 153.3 Office Visit 01/29/2008 2:00p [facility] AT [facility], 03168 272.0 [facility].D. 401.1 V04.81 Office Visit 01/21/2008 12:00p [facility] AT [facility], 77362 465.9 [facility] M.D. Office Visit 07/24/2007 2:30p [facility] AT [facility], 25695 250.00 [facility].D. 733.00 401.1 V06.5 V03.82 Office Visit 01/22/2007 2:00p [facility] AT [facility], 52890 250.00 [facility].D. 272.0 401.1 V04.81 Plan of Care Future Appointment(s):11/09/2017 2:20 pm - Echo Rivero NKyle at [facility] Internal Medicine - Bxieexquv24/30/2018 1:45 pm - Sabrina Chester MD at [facility]03/08/2018 2:20 pm - Echo Rivero N.P. at [facility] Internal Medicine - Vebnqddhh58/20/2018 - Echo Rivero NKyleJ44.1 Chronic obstructive pulmonary disease w (acute) exacerbationNew Medication:Prednisone 10 mgAzithromycin 250 mgComments:You are having a COPD flare most likely from infection. I have prescribed an antibiotic for you, Azithromycin. I also prescribed Prednisone 10 mg. Take 4 tablets for 4 days, 3 tablets for 4 days, 2 tablets for 4 days, 1 tablet daily.I want you to continue to use your nebulizer 3 times daily, if you need to boost it to 4 times. Keep your oxygen on at 4 Liters for now.Follow up:Follow up sunday Essential (primary) hypertensionComments:For your high blood pressure: Continue with your current medication.
--- OUTSIDE RECORDS SUMMARY | 2017-11-06 08:20 | XMS REPORT ---
:1940 External Reference #:[id number] Author Organization [email or web address] Address [address] [facility] [place] [address] [place] [address] Phone [phone] Care Team Providers Name Role Phone Angie Zimmer MD Primary Care Physician Unavailable Payers Type Date Identification Numbers Payment Provider Subscriber Medicare Primary Effective: Policy Number: Medicare Francisca Coburn 2005 [id number] PayID: [id number] [address] [place] [address] Medigap Part B Effective: Policy Number: BS Facets Francisca Shirleyjennifermichael 2011 [id number] PayID: [id number] [address] [address] [place] [address] Problems Date Description Provider Status Onset: 02/08/2011 [...] Active Tablets 300mg 30tabs 1 by mouth Ceho 2017 every day Varn, N.P. Proair HFA [...] Solution 0.5-2.5(3) 180ml 1 vial in [place]/Albuter 2018 mg/3ML nebulizer Varn, ol Sulfate three [...] 2 tabs one Dirk hour prior to Agitar, dental work M.D. Vitamin B 01/10/2013 Active [...] M5 Sundar 05/22/2017 every six 4. Marlena, COORDINATE MEASURING EQUIPMENT OPERATOR hours as 5 needed for pain. Salsalate 05/16/2017 - Hx Tablets 500mg 30tabs one tablet M5 Sundar 06/24/2017 twice daily 4. Marlena, COORDINATE MEASURING EQUIPMENT OPERATOR as needed 5 with food Hydrocodone-Christian 05/16/2017 - Hx Tablets 5-325mg 30tabs take 1 tablet M5 Sundar taminophen 06/24/2017 every 8 hours 4. Marlena, COORDINATE MEASURING EQUIPMENT OPERATOR for pain. 5 Zostavax 08/29/2016 - Hx Suspension [id number] I1 Alexi Escalera 05/16/2017 Rec t/0.65M 0 [...] by Thuan 02/07/2016 ase) mouth four Flowers, COORDINATE MEASURING EQUIPMENT OPERATOR mcg/Act times a day as needed Proair [...] two Thuan 03/31/2015 cg/Act puffs into Flowers, COORDINATE MEASURING EQUIPMENT OPERATOR lungs twice a day Zithromax Z-Arnoldo 06/22/2009 [...] CPT Code Status Date Vaccine Lot # [id number] Given 12/27/2015 Influenza Virus Vaccine, Quadrivalent, Split, Preservative Free 05138 Given 01/28/2015 Influenza Virus 3Yrs & Over 36739 Given 02/04/2014 Flu Vaccine Split Virus Preservative Free For 490693 Indiv 3Yr Older 48019 Given 08/25/2013 Pneumococcal Conjugate Vaccine 13 Valent For [id number] Intramuscular Use Q2038 Given 01/18/2011 Fluzone Vaccine [id number] 17412 Given 02/04/2010 Influenza Virus 3Yrs & Over [id number] 07698 Given 04/21/2009 Influenza Virus Vaccine, Pandemic Formulation 44587 Given 01/29/2008 Influenza Virus 3Yrs & Over 69447 Given 01/29/2008 Influenza Virus 3Yrs & Over 53081 Given 07/24/2007 Pneumonia Vaccine [id number] 69527 Given 07/24/2007 Tetanus And Diptheria (Td) For Adult Use Preservative Free 73315 Given 07/24/2007 Tetanus And Diptheria (Td) For Adult Use Preservative Free 66371 Given 01/22/2007 Influenza Virus 3Yrs & Over 21167 Given 01/22/2007 Influenza Virus 3Yrs & Over 52287 Vital Signs Date Vital Result Comment 11/02/2017 [...] Color Yellow Urine Appearance Clear Urine Specific Austin 1.009 Low 1.010-1.030 Urine pH 8.0 5-9 [...] Color Rosio Urine Appearance Cloudy Urine Specific Austin 1.017 1.010-1.030 Urine pH 7.0 5-9 Urine [...] Positive Antibody Screen NEGATIVE Lipid Panel - [facility] 08/19/2012 Creatine Kinase 293 U/L [...] Negative titer <1:240 Agna-1 Negative titer <1:240 Foundation Stage Teacher-1 Negative titer <1:240 Foundation Stage Teacher-2 Negative titer <1:240 Foundation Stage Teacher-Tr Negative titer <1:240 Amphiphysin AB Negative titer [...] (or dialysis) 3 Acute inflammation: >10.00 4 [facility] Severe Sepsis and Septic Shock Management Bundle [...] pg/mL: likely moderate to severe CHF 8 Decal Applier: [id number] SEE RESULT BELOW Name: FRANCISCA COBURN : [address]: Heriberto Mejias MD Acct: [id number] Unit: [id number] AGE: 77 Location: ED Re06/15/17 SEX: F Status: REG ER SPEC: [id number] JUAN ANTONIO: 06/15/17-[address]: Heriberto Mejias MD REQ: [id number] RECD: 06/15/17 STATUS: MARYANN FLORES DR: Echo Rivero COORDINATE MEASURING EQUIPMENT OPERATOR _ S[facility] ORDERED: Flu A B Request Procedure Result Reported Site Rapid Influenza A B Request Final 06/15/17- 1329 ML Specimen received for Influenza A/B Molecular testing * ML - Main Lab . END OF REPORT DEPARTMENT OF PATHOLOGY, [address] [place] [address] Riky Samayoa M.D. Director [facility] # [id number] 10 Because ethnic data is not always [...] inflammation: >10.00 12 Result TnIDx:0.05 Called to [id number] at: 13:32:38 by:[email or web address] Read back by: [id number] 13 >100 to <200 pg/mL: likely compensated congestive heart failure (CHF) 200 to 400 pg/mL: likely moderate CHF >400 pg/mL: likely moderate to severe CHF 14 [facility] Severe Sepsis and Septic Shock Management Bundle [...] detection of blood. 33 RUN DATE: 02/14/14 [facility] LAB LIVE PAGE 1 RUN TIME: [address] [place] [address] Specimen Inquiry Name: FRANCISCA COBURN : [address]: Jose Marin MD Acct: [id number] Unit: [id number] AGE: 74 Location: [facility] Re02/12/14 SEX: F Status: REG REF SPEC: [id number] JUAN ANTONIO: 02/12/14-[address]: Jose Marin MD REQ: [id number] RECD: 02/12/14-125 STATUS: MARYANN FLORES DR: Alexi Kim III, MD _ SOURCE: URINE SPDESC: ORDERED: Urine Culture Procedure Result Verified Site Urine Culture Final 02/14/14- 0807 ML Organism 1 ESCHERICHIA COLI Terrell Count 75-100,000 (Many) CFU/ML Organism 2 ENTEROCOCCUS SPECIES GP D Terrell Count >100,000 (Many) CFU/ML 1. ESCHERICHIA COLI [...] performed at Main Lab DEPARTMENT OF PATHOLOGY, [facility] [place] [address] Riky Samayoa M.D. Director [place] # [id number] RUN DATE: 02/14/14 [facility] LAB LIVE PAGE 2 RUN TIME: 806 [facility] Fusion Antibodies [place], [place] [address] Specimen Inquiry Patient: FRANCISCA COBURN [id number] (Continued) Specimen: [id number] Collected: 02/12/14-1199 Received: 02/12/14-1250 (Continued) Procedure Result [...] These antibiotics are not available in the [facility] Formulary Contact the Microbiology Department for any additional antibiotic reporting. Contact the Microbiology Department for any additional antibiotic reporting. END OF REPORT * ML=Testing performed at Main Lab DEPARTMENT OF PATHOLOGY, [address] [place] [address] Riky Samayoa M.D. Director [facility] # [id number] SURGERY DATE: 02/17/14 35 Because ethnic [...] within this range. Test Performed by: [address] [address] Car Pilot: Souleymane Weinstein III, M.D. 43 Because ethnic [...] 0.06 ng/mL Not supportive of diagnosis of HI 0.06 - 0.50 ng/mL Indeterminate: suggest serial studies if clinically indicated. Greater than 0.5 ng/mL Consistent with diagnosis of HI 45 PT IS FASTING 46 Because ethnic [...] and in selective patients <6.0%.Please refer to [place] [employer] Diabetic care guidelines for further information. 50 RUN DATE: 03/18/12 [facility] LAB LIVE PAGE 1 RUN TIME: [address] [place] [address] Specimen Inquiry Name: BLANEFRANCISCA G : [address]: Cuong Lorenzo MD Acct: [id number] Unit: [id number] AGE: 72 Location: [facility] Re03/14/12 SEX: F Status: REG REF SPEC: [id number] JUAN ANTONIO: 03/14/12- SUBM DR: Cuong Lorenzo MD REQ: [id number] RECD: 03/15/12 STATUS: ASHLY FLORES DR: Abram [...] performed at Main Lab DEPARTMENT OF PATHOLOGY, [facility] [place] [address] Riky Samayoa M.D. Director [facility] Permit #[id number] RUN DATE: 03/18/12 [facility] LAB LIVE PAGE 2 RUN TIME: 1404 [facility] Fusion Antibodies [place], [place] [address] Specimen Inquiry Patient: FRANCISCA COBURN [id number] (Continued) GROSS DESCRIPTION (Continued) Signed (signature on file) Riky Samayoa MD 1404 END OF REPORT * ML=Testing performed at Main Lab DEPARTMENT OF PATHOLOGY, [address] [place] [address] Riky Samayoa M.D. Director [facility] Permit #[id number] 51 CHOLESTEROL INTERPRETATION: Desirable: Less than 200 [...] has been shown to interfere with the Jendrassik-Elkland method for measuring total bilirubin. Samples from [...] IN SELECTIVE PATIENTS <6.0%. PLEASE REFER TO [place] [employer] DIABETIC CARE GUIDELINES FOR FURTHER INFORMATION. 58 Test Performed by: [facility] Dpt of Lab Med and Pathology [address] [place] [address] Car Pilot: Souleymane Weinstein III, M.D. 59 -- REFERENCE VALUE -- Not present Test Performed by: [facility] Dpt of Lab Med and Pathology [address] [place] [address] Car Pilot: Souleymane Weinstein III, M.D. 60 CHOLESTEROL INTERPRETATION: [...] has been shown to interfere with the Jendrassik-Elk[place] method for measuring total bilirubin. Samples from [...] change was based on recommendations from the [place] [employer]. 73 A metabolite of Naproxen, [...] SERUM LEVELS OF CEA MEASURED USING THE nWay ACCESS IMMUNOASSAY SYSTEM SHOULD NOT BE INTERPRETED [...] change was based on recommendations from the [place] [employer]. 78 A metabolite of Naproxen, [...] change was based on recommendations from the [place] [employer]. 83 Please note change in reference range effective 07 . 84 A metabolite of Naproxen, O-desmethylnaproxen, has been shown to interfere with the Jendrassik-Elkland method for measuring total bilirubin. Samples from [...] change was based on recommendations from the [place] [employer]. 90 Please note change in [...] vision loss, cranial neuropathy and myelopathy. Contact [facility] Inquiry at [phone] ([id number] [phone])to add-on [id number] Western Blot, S. Test Performed by: [facility] Dpt of Lab Med and Pathology [address] [place] [address] Car Pilot: Souleymane Weinstein III, M.D. 96 Test Performed by: [facility] Dpt of Lab Med and Pathology [address] [place] [address] Car Pilot: Souleymane Weinstein III, M.D. 97 Test Performed by: [facility] Dpt of Lab Med and Pathology [address] [place] [address] Car Pilot: Souleymane Weinstein III, M.D. 98 Test Performed by: [facility] Dpt of Lab Med and Pathology [address] [place] [address] Car Pilot: Souleymane Weinstein III, M.D. 99 Test Performed by: [facility] Dpt of Lab Med and Pathology [address] [place] [address] Car Pilot: Souleymane Weinstein III, M.D. 100 Test Performed by: [facility] Dpt of Lab Med and Pathology [address] [place] [address] Car Pilot: Souleymane Weinstein III, M.D. 101 Test Performed by: [facility] Dpt of Lab Med and Pathology [address] [place] [address] Car Pilot: Souleymane Weinstein III, M.D. 102 Anion gap measurement may be of limited value in the presence of any alkalosis, especially in a combined acid base disorder. . 103 Note change in reference range as of 12/05/07. The change was based on recommendations from the [place] [employer]. 104 Please note change in [...] change was based on recommendations from the [place] [employer]. 108 Please note change in [...] SERUM LEVELS OF CEA MEASURED USING THE nWay ACCESS IMMUNOASSAY SYSTEM SHOULD NOT BE INTERPRETED [...] change was based on recommendations from the [place] [employer]. 115 Please note change in reference range effective 07 . 116 A metabolite of Naproxen, O-desmethylnaproxen, has been shown to interfere with the Jendrassik-Elkland method for measuring total bilirubin. Samples from [...] 189 MG/DL 121 ----- RUN DATE: 03/05/08 [facility] NMI LIVE PAGE 1 RUN TIME: 1419 Specimen Inquiry RUN USER: INTERFACE -- Name: FRANCISCA COBURN#: [id number] Status: REG REF Re03/04/08 Age/Sex: 68/F Unit#: [id number] Location: [address] [place] [address].O.B. : 40 -- Specimen: [id number] SOUT Spec Date: 03/04/[address]: Joce [...] 03/05/08 1419 -- -- DEPARTMENT OF PATHOLOGY, [address] [place] [address] [facility] Permit #[id number] Riky Samayoa M.D. Director Nghia Vasquez M.D. Absorption Plant Operator Helper Dir ricardo -- 122 Anion gap measurement may be of limited value in the presence of any alkalosis, especially in a combined acid base disorder. . 123 Note change in reference range as of 12/05/07. The change was based on recommendations from the [place] [employer]. 124 Please note change in reference range effective 07 . 125 SMOKING MAY INCREASE VALUES SERUM LEVELS OF CEA MEASURED USING THE nWay ACCESS IMMUNOASSAY SYSTEM SHOULD NOT BE INTERPRETED [...] change was based on recommendations from the [place] [employer]. 129 Please note change in reference range effective 07 . 130 INCREASED BETA GLOBULIN- CONSISTENT WITH HYPERLIPO- PROTEINEMIA OR IRON DEFICIENCY. 131 THERAPEUTIC TARGET FOR THE TREATMENT OF DIABETES MELLITUS PATIENTS IS <7% HBA1C, AND IN SELECTIVE PATIENTS <6.0%. PLEASE REFER TO [place] DIABETIC CARE GUIDELINES FOR FURTHER INFORMATION. 132 Anion gap measurement may be of limited value in the presence of any alkalosis, especially in a combined acid base disorder. . 133 Please note change in reference range effective 07 . 134 Note change in reference range as of 12/05/07. The change was based on recommendations from the [place] [employer]. 135 -- REFERENCE VALUE -- 25-HYDROXY D TOTAL (D2+D3) Optimum levels in the normal population are 25-80 Test Performed by: [facility] Dpt of Lab Med and Pathology [address] [place] [address] Car Pilot: Souleymane Weinstein III, M.D. 136 CHOLESTEROL INTERPRETATION: [...] IN SELECTIVE PATIENTS <6.0%. PLEASE REFER TO [employer] DIABETIC CARE GUIDELINES FOR FURTHER INFORMATION. Procedures Date CPT Code Description Status 08/31/2017 47411 EKG Tracing & Interpretation Completed 06/17/2017 78038 ECHO Transthorasic Realtime 2D W Doppler & Color Flow Completed Hosp 06/16/2017 62431 EKG, Interpretation Only Completed 03/30/2017 Mammogram Completed 02/27/2017 08342 Diffusing Capacity Completed 02/27/2017 21657 Spirometry Incl Graphic Record Completed 10/27/2016 28482 Admin Of Inj Completed 02/29/2016 63126 Chemotherpy Admin Subcutaneous/Im Non-Hormonal Completed Anti-Neoplastic 05/11/2015 86233 Chemotherpy Admin Subcutaneous/Im Non-Hormonal Completed Anti-Neoplastic 04/01/2015 Bone Mineral Density Test Completed 04/01/2015 Mammogram Completed 03/31/2015 85299 Pulmonary Stress Test Simple Completed 10/07/2014 21546 Admin Of Inj Completed 09/23/2014 34472 Pulmonary Stress Test Simple Completed 04/20/2014 77391 Admin Of Inj Completed 03/30/2014 35207 Rad Exam; Hip Unilat Completed 03/30/2014 01432 Rad Exam; Pelvis Completed 02/17/2014 73906 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 02/17/2014 79108 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 02/12/2014 54887 Spirometry Incl Graphic Record Completed 02/09/2014 48678 Spirometry Incl Graphic Record, Timed Expiratory Flow Completed Rate 02/04/2014 23199 EKG Tracing & Interpretation Completed 12/29/2013 31673 Rad Exam; Hip Unilat Completed 12/29/2013 46591 Rad Exam; Pelvis Completed 10/06/2013 50427 Chemotherpy Admin Subcutaneous/Im Non-Hormonal Completed Anti-Neoplastic 10/06/2013 90867 Admin Of Inj Completed 09/29/2013 27766 Rad Exam; Hip Unilat Comp Completed 09/29/2013 55661 Rad Exam; Pelvis Completed 08/25/2013 01214 Pulmonary Function><Bronchodilator Completed 04/14/2013 01954 Rad Exam; Hip Unilat Completed 04/14/2013 53026 Rad Exam; Pelvis Completed 02/17/2013 Mammogram Completed 02/17/2013 Bone Mineral Density Test Completed 01/06/2013 92652 Rad Exam; Hip Unilat Completed 01/06/2013 74267 Rad Exam; Pelvis Completed 10/14/2012 33321 Rad Exam; Hip Unilat Completed 10/14/2012 09724 Rad Exam; Wrist Limited, 2 Views Completed 10/14/2012 24887 Rad Exam; Pelvis Completed 09/12/2012 07652 Open TX Of Femoral FX,Promimal End,Neck Internal Completed Fixation 09/12/2012 06828 Open TX Of Femoral FX,Promimal End,Neck Internal Completed Fixation 09/12/2012 08251 Closed Treatment Distal Radial FX W/Manipulation Completed 03/20/2012 Colonoscopy Completed 01/25/2011 Bone Mineral Density Test Completed 01/25/2011 Mammogram Completed 02/04/2010 02222 Admin Of Inj Completed 09/29/2009 74480 Pulmonary Function><Bronchodilator Completed 06/23/2009 02463 EKG, Interpretation Only Completed 03/13/2008 05873 EKG, Interpretation Only Completed 03/04/2008 Colonoscopy Completed Encounters Type Date Location Provider CPT E/M Dx Office Visit 08/31/2017 [facility] [address] I50.32 3:00p [facility] FACC I10 J44.9 I35.0 E78.5 F17.201 I71.4 Office Visit 08/14/2017 1:30p [facility] [place] [address] J44.9 Services Of [facility] R09.02 Office Visit 08/03/2017 4:00p [facility] Internal Medicine Echo Rivero N.P. 15177 J44.1 - [place] I10 E87.1 M54.5 I71.4 I34.9 Office Visit 07/27/2017 [facility]HEL[facility] Salcido [address] J44.1 Assoc,pc Hospitalists I50.33 I10 F41.8 Office Visit 07/26/2017 1:32p [facility] [place] [address] Z87.891 Services Of [facility] J44.1 I50.31 R06.02 Office Visit 07/26/2017 10[facility]HELLE Salc[facility] [address] J44.1 Assoc,pc Hospitalists I50.33 I10 F41.8 Office Visit 07/25/2017 10:[facility]HELLE Salcido 12920 J44.1 Assoc,pc Hospitalists I50.33 I10 F41.8 Office Visit 07/25/2017 3:43p [facility] [place] [address] J44.1 Services Of [facility] I50.31 Z87.891 R06.02 Z99.81 Office Visit 07/24/2017 10:31a [facility], Shanti Cody, N.P. 64113 J44.1 Hospitalists I50.33 I10 F41.8 Office Visit 07/23/2017 10:29a [facility],pc Shanti Cody, N.P. 06706 J44.1 Hospitalists I10 F41.8 Office Visit 07/22/2017 10:28a [facility] [address] J44.1 Assoc,pc Hospitalists I10 F41.8 Office Visit 07/21/2017 10:27a [facility], Jaylen Uribe, 94871 J44.1 Hospitalists Yolande,[facility] I10 F41.8 Office Visit 07/03/2017 8:00a [facility] [place] [address] M54.5 Office Visit 07/01/2017 8:00a [facility] [place] [address] M54.5 J44.9 Office Visit 06/26/2017 8:45a [facility] [place] [address] M54.5 S22.080A Office Visit 06/25/2017 2:00p [facility] Elsi Burciaga, 37255 J44.9 Services Of [facility]am [facility] Lab[facility] N.P. Office Visit 06/20/2017 8:15a [facility] Elinor Muñoz, 19943 S22.080A Yolande J44.9 I50.9 I10 Office Visit 06/19/2017 10:07a [facility], [place] [address] J96.21 Hospitalists J44.1 S22.080A Office Visit 06/18/2017 10:06a [facility], [place] [address] J96.21 Hospitalists J44.1 S22.080A Office Visit 06/17/2017 10:05a [facility], [place] [address] J96.21 Hospitalists J44.1 S22.080A Office Visit 06/16/2017 10:04a [facility], [place] [address] J96.21 Hospitalists J44.1 S22.080A Office Visit 06/15/2017 11:15a [facility], [place] [address] J96.21 Hospitalists J44.1 E87.1 S22.080A Office Visit 06/02/2017 10:59a [facility], [place] [address] M48.54xA Hospitalists K59.03 E87.1 M81.0 Office Visit 06/01/2017 10:58a [facility], [place] [address] M48.54xA Hospitalists K59.03 E87.1 M81.0 Office Visit 05/31/2017 10:57a [facility], [place] [address] M48.54xA Hospitalists K59.03 E87.1 M81.0 Office Visit 05/30/2017 10:55a [facility] Jaylen Uribe, 55352 M48.54xA Assoc, Hospitalists Yolande,FACP K59.03 J44.9 M81.0 Office Visit 05/29/2017 10:53a [facility] Tiffany Vargas, 92106 M48.54xA [facility] Hospitalists K59.03 J44.9 M81.0 Office Visit 05/16/2017 2:40p [facility] Internal Medicine Sundar Mendiola, [place]QUE 59580 M54.5 - [place] Office Visit 03/06/2017 1:20p [facility] Internal Medicine Echo Rivero N.P. 77359 J44.9 - [place] M81.0 I10 E78.00 R60.0 Z12.31 Office Visit 02/13/2017 1:00p [facility] [place] [address] J44.9 Services Of [facility] R09.02 Office Visit 01/24/2017 1:45p [facility] Of Jose Marin M.D. 98048 Z96.642 C.M.A. M21.752 Office Visit 08/29/2016 2:00p [facility] Internal Medicine - Alexi Kim, 72511 I10 Zainab Lanier J44.9 M81.0 Office Visit 08/08/2016 1:00p [facility] [place] [address] J44.9 Services Of [facility] Office Visit 02/29/2016 2:00p [facility] Huan Kim, 24985 I10 Zainab Lanier J44.9 M81.0 E78.2 Z85.038 Z92.29 Office Visit 02/08/2016 1:00p [facility] [place] [address] J44.9 Services Of [facility] Office Visit 01/26/2016 1:30p [facility] Jose Marin M.D. 42456 Z96.642 C.M.A. Office Visit 09/28/2015 3:45p [facility] [place] [address] J44.9 Services Of [facility] J98.4 Office Visit 03/31/2015 1:00p [facility] [place] [address] J44.9 Services Of [facility] R09.02 E66.09 Office Visit 03/01/2015 2:00p [facility] Internal Medicine - Alexi Kim, 07144 I10 Aleja Lanier J44.9 M81.0 Z12.31 E78.2 Office Visit 01/25/2015 10:45a [facility] Jose Marin M.D. 33177 Z96.642 C.M.A. M16.12 Z09 Office Visit 09/28/2014 1:00p [facility] [place] [address] 496 Services Of [facility] 799.02 278.00 Office Visit 06/29/2014 10:45a [facility] Jose Marin M.D. 15237 715.95 C.M.A. v54.81 V43.64 Office Visit 04/20/2014 4:00p [facility] Internal Medicine Alexi Kim, 31921 724.2 - Aleja Lanier 733.01 V87.49 Office Visit 04/13/2014 11:00a [facility] [place] [address] 496 Services Of [facility] 518.89 799.02 Office Visit 03/04/2014 1:22p [facility] [place] [address] 496 Services Of [facility] Office Visit 02/26/2014 2:39p [facility] [place] [address] 496 Services Of [facility] 786.05 Office Visit 02/25/2014 2:31p [facility] [place] [address] 496 Services Of [facility] 786.05 Office Visit 02/19/2014 3:03p [facility], Elsi Burciaga, 73547 496 Hospitalists N.P. 401.9 278.00 V43.64 Office Visit 02/18/2014 3:03p [facility], Elsi Burciaga 98184 496 Hospitalists N.P. 401.9 278.00 V43.64 Office Visit 02/17/2014 3:02p [facility], Shanti Cody N.PDeep 61396 496 Hospitalists 401.9 278.00 V43.64 Office Visit 02/09/2014 10:15a [facility] [place] [address] 496 Services [facility] V72.83 Office Visit 02/04/2014 2:00p [facility] Internal Medicine Alexi Kim, 18010 V72.81 - Aleja Lanier 715.95 401.1 496 272.2 733.01 V04.81 Office Visit 12/29/2013 10:00a [facility] Jose Marin M.D. 29978 715.95 C.M.A. Office Visit 09/29/2013 9:45a [facility] Jose Marin M.D. 08228 715.95 C.M.A. Office Visit 04/14/2013 9:15a [facility] Jose Marin M.D. 70439 820.8 C.M.A. Office Visit 02/24/2013 1:20p [facility] Internal Medicine - Alexi Kim, 64880 496 Aleja Lanier 733.00 272.2 401.1 820.8 Office Visit 01/06/2013 9:00a [facility] Jose Marin M.D. 81026 813.42 C.M.A. 820.8 Office Visit 09/15/2012 1:32p [facility], Shanti Cody, N.P. 26158 492.8 Hospitalists 276.1 820.8 813.42 Office Visit 09/14/2012 1:31p [facility], Shanti Cody N.P. 18021 492.8 Hospitalists 276.1 820.8 813.42 Office Visit 09/13/2012 1:31p [facility], Wanda Montaño, 61172 492.8 Hospitalists M.D. 820.8 813.42 Office Visit 09/12/2012 10:00a [facility] Jose Marin M.D. 94910 820.8 C.M.A. 813.44 Office Visit 09/12/2012 1:30p [facility], Elinor Muñoz, 34572 820.8 Hospitalists M.D. 813.42 492.8 276.1 Office Visit 02/23/2012 11:00a [facility] Internal Medicine Alexi Kim, 18810 401.1 - [facility].DDeep 496 790.21 272.2 733.00 153.3 Office Visit 08/23/2011 11:00a [facility], 42807 401.1 - [facility].DDeep 496 790.21 272.2 733.00 153.3 Office Visit 02/22/2011 10:40a DO Not Use [facility] AT [facility], 59339 401.1 [facility] M.D. 272.2 Office Visit 01/18/2011 2:40p DO Not Use [facility] AT [facility], 54374 401.1 [facility] M.D. 272.2 496 790.21 733.00 V76.10 153.8 V04.81 Office Visit 07/11/2010 4:00p DO Not Use [facility] AT [facility], 46255 496 [facility] M.D. 272.2 401.1 Office Visit 01/10/2010 11:20a DO Not Use [facility] AT [facility], 57224 V72.83 [facility].D. V72.81 366.8 401.9 496 272.2 Office Visit 09/29/2009 11:40a DO Not Use [facility] AT [facility], 49434 496 [facility] M.D. 401.9 272.2 Office Visit 06/22/2009 11:40a DO Not Use [facility] AT [facility], 96858 466.0 [facility] M.D. Office Visit 06/08/2009 2:00p DO Not Use [facility] AT [facility], 29534 401.1 [facility] M.D. Office Visit 03/01/2009 2:30p DO Not Use [facility], 59676 782.3 [facility] M.D. 401.1 Office Visit 02/11/2009 2:30p DO Not Use [facility] AT [facility], 40745 401.1 [facility] M.D. 782.3 Office Visit 10/06/2008 2:15p [facility] AT [facility], 91137 724.5 [facility] M.Terence Office Visit 07/29/2008 2:30p [facility] AT [facility], 13929 V72.81 [facility] M.D. 401.9 250.00 272.0 733.00 153.3 Office Visit 01/29/2008 2:00p [facility] AT [facility], 22787 272.0 [facility].D. 401.1 V04.81 Office Visit 01/21/2008 12:00p [facility] AT [facility], 73972 465.9 [facility] M.D. Office Visit 07/24/2007 2:30p [facility] AT [facility], 48722 250.00 [facility] M.D. 733.00 401.1 V06.5 V03.82 Office Visit 01/22/2007 2:00p [facility] AT [facility], 44112 250.00 [facility].D. 272.0 401.1 V04.81 Plan of Care Future Appointment(s):02/12/2018 1:45 pm - Sabrina Chester MD at [facility]03/08/2018 2:20 pm - Echo Rivero N.P. at [facility] Internal Medicine - [place]98/20/2018 - Echo Rivero N.P.J44.1 Chronic obstructive pulmonary disease w (acute) exacerbationNew [...]
--- NOTE | 2017-11-06 08:29 | ED ---
Respiratory - HPI Summary HPI Summary: This is [facility] documenting for attending Carlos Rhodes MD. Pt is a 77 y/o F BIBA c/o SOB onset last night. Assoc Sx: Occasional sputum, C tightness. Denies: CP, Hx blood clots. She believes it is related to her COPD. It was bad on Sunday was put in Prednozone, zythromax. Took nebulizer at 0300 this AM and albuterol inhaler at 0600 this AM which failed to alleviate Sx. - History of Current Complaint Chief Complaint: EDShortnessOfBreath Stated Complaint: SOB Time Seen by Provider: 11/06/17 07:53 Hx Obtained From: Patient Onset/Duration: Sudden Onset, Lasting Hours Current Severity: None Pain Intensity: 0 Character: Cough (Productive) Sputum Amount: Small - occasional Associated Signs and Symptoms: Negative - CP, SOB - Allergy/Home Medications Allergies/Adverse Reactions: Allergies Allergy/AdvReac Type Severity Reaction Status Date / Time Adhesive Tape Allergy REDDENED Verified 11/06/17 07:58 SKIN codeine Allergy Hives Verified 11/06/17 07:58 iodine Allergy Rash Verified 11/06/17 07:58 Penicillins Allergy Hives Verified 11/06/17 07:58 pineapple Allergy MOUTH SORE Verified 11/06/17 07:58 tiotropium Allergy HOARSENESS, Verified 11/06/17 07:58 [From Spiriva with TICKLE IN HandiHaler] THROAT raisins Allergy GI Upset Uncoded 11/06/17 07:59 Home Medications: Home Medications Azithromycin 250 mg PO DAILY 11/06/17 [History Confirmed 11/06/17] predniSONE TAB* [Deltasone 10 MG TAB*] 20 - 40 mg PO DAILY 11/06/17 [History Confirmed 11/06/17] PMH/Surg Hx/FS Hx/Imm Hx Endocrine/Hematology History: Denies: Hx Anticoagulant Therapy, Hx Diabetes, Hx Thyroid Disease Cardiovascular History: Reports: Hx Aneurysm - AAA diagnosed 05/28/17, Hx Hypercholesterolemia, Hx Hypertension, Other Cardiovascular Problems/Disorders Respiratory History: Reports: Hx Asthma, Hx Chronic Obstructive Pulmonary Disease (COPD) Denies: Hx Sleep Apnea GI History: Reports: Other GI Disorders - Colon CA, current constipation Denies: Hx Ulcer History: Reports: Other Problems/Disorders - Bladder smaller from colon Denies: Hx Dialysis, Hx Renal Disease Musculoskeletal History: Reports: Hx Arthritis, Hx Back Problems, Hx Orthopedic Injury, Hx Osteoporosis, Hx Tendonitis Denies: Hx Bursitis, Hx Scoliosis Sensory History: Reports: Hx Cataracts, Hx Contacts or Glasses Denies: Hx Glaucoma, Hx Hearing Aid, Hx Hearing Problem, Other Sensory Impairments Opthamlomology History: Reports: Hx Cataracts, Hx Contacts or Glasses Denies: Hx Glaucoma, Other Sensory Impairments Neurological History: Reports: Hx Migraine - childhood migraines resolved at 22 years old, Other Neuro Impairments/Disorders - LEFT HIP SX X 2 MO AGO Denies: Hx Headaches, Hx Nerve Disease - Cancer History Cancer Type, Location and Year: COLON 2007, treated with Chemo Hx Chemotherapy: Yes Hx Radiation Therapy: No - Surgical History Surgery Procedure, Year, and Place: Empyema removal 1983, Broken elbow left repair ORIF (plate) Apr 1999 and later hardware removal Colon cancer dx 2007, colon resection. Hernia repair 2009 Partial L Hip Replacement September 2012 Hx Anesthesia Reactions: No Infectious Disease History: No Infectious Disease History: Denies: Hx Hepatitis, Hx Human Immunodeficiency Virus (HIV), History Other Infectious Disease, Traveled Outside the [place] in Last 30 Days - Family History Known Family History: Positive: Cardiac Disease, Respiratory Disease, Other - Aortic aneurysm Negative: Blood Disorder - Social History Occupation: Retired Lives: With Family Alcohol Use: Rare Alcohol Amount: 1 GLASS OF WINE DAILY Hx Substance Use: No Substance Use Type: Reports: None Hx Tobacco Use: Yes Smoking Status (MU): Former Smoker Amount Used/How Often: 1 1/2 PPD X 30 YEARS Have You Smoked in the Last Year: No Review of Systems Positive: Other - Sputum (occasional) Positive: Other - Chest "tightness". Negative: Chest Pain Positive: Shortness Of Breath All Other Systems Reviewed And Are Negative: Yes Physical Exam - Summary Physical Exam Summary: Constitutional: Well-developed, Well-nourished, Alert. (-) Distressed Skin: Warm, Dry HENT: Normocephalic; Atraumatic Eyes: Conjunctiva normal Neck: Musculoskeletal ROM normal neck. (-) JVD, (-) Stridor, (-) Tracheal deviation Cardio: Rhythm regular, rate normal, Heart sounds normal; Intact distal pulses; The pedal pulses are 2+ and symmetric. Radial pulses are 2+ and symmetric. (-) Murmur Pulmonary/Chest wall: Diminished breath sounds. (-) Wheezes, (-) Rales Abd: Soft, (-), epigastric tenderness, (-) Distension, (-) Guarding, (-) Rebound Musculoskeletal: (-) Edema Lymph: (-) Cervical adenopathy Neuro: Alert, Oriented x3 Psych: Mood and affect Normal Triage Information Reviewed: Yes Vital Signs On Initial Exam: Initial Vitals BP 163/100 11/06/17 07:51 Vital Signs Reviewed: Yes Diagnostics - Vital Signs Vital Signs Temp Pulse Resp BP Pulse Ox 11/06/17 08:00 80 28 93 11/06/17 07:55 98.9 F 89 26 163/100 93 11/06/17 07:51 163/100 - Laboratory Result Diagrams: 11/06/17 08:46 11/06/17 08:46 Lab Statement: Any lab studies that have been ordered have been reviewed, and results considered in the medical decision making process. - Radiology CXR Xray Interpretation: Positive (See Comments) - IMPRESSION: SMALL LEFT PLEURAL EFFUSION WITH THE LUNG VOLUMES AND BIBASILAR ATELECTASIS VERSUS EARLY CONSOLIDATION. Radiology Interpretation Completed By: Radiologist - Provider has reviewed report. - EKG 0810 Cardiac Rate: NL - 83 EKG Rhythm: Sinus Rhythm ST Segment: Normal Disposition - Diagnoses Provider Diagnoses: Hypoxia - Physician Notifications Discussed Care Of Patient With: Wanda Montaño Time Discussed With Above Provider: 10:55 Instructed by Provider To: Admit As Inpatient Discharge - Sign-Out/Discharge Documenting (check all that apply): Patient Departure - Discharge Plan Condition: Stable Disposition: ADMITTED TO [facility]
--- NOTE | 2017-11-06 08:43 | RAD ---
HISTORY: CP, chest pain, shortness of breath COMPARISONS: July 23, 2017 VIEWS: 1: frontal portable view of the chest at 8:20 AM FINDINGS: LINES AND TUBES: None. CARDIOMEDIASTINAL SILHOUETTE: The cardiomediastinal silhouette is normal for portable technique. PLEURA: There is blunting of the left costophrenic angle. LUNG PARENCHYMA: There is patchy alveolar desiccation the lung bases bilaterally. The lung volumes are low. ABDOMEN: The upper abdomen is clear. There is no subphrenic gas. BONES AND SOFT TISSUES: No bone or soft tissue abnormalities are noted. IMPRESSION: SMALL LEFT PLEURAL EFFUSION WITH THE LUNG VOLUMES AND BIBASILAR ATELECTASIS VERSUS EARLY CONSOLIDATION.
[2017-11-06 09:02] LABS: ABS Basophils 0 10^3/ul (0-0.2); ABS Eosinophils 0 10^3/ul (0-0.6); ABS Lymphocytes 0.7 10^3/ul (1.0-4.8); ABS Monocytes 0.7 10^3/ul (0-0.8); ABS Neutrophils 6.9 10^3/ul (1.5-7.7); ABS Nucleated RBC 0 10^3/ul; Eosinophil % 0.1 % (0-6); Hematocrit 41 % (35-47); Hemoglobin 13.7 g/dl (12.0-16.0); Lymphocyte % 8.3 % (25-47); Mean Corpuscular HGB Conc 34 g/dl (31-36); Mean Corpuscular Hemoglobin 31 pg (27-31); Mean Corpuscular Volume 92 fL (80-97); Mean Platelet Volume 7.8 um3 (7.4-10.4); Nucleated Red Blood Cells % 0.1; Platelet Count 300 10^3/ul (150-450); Red Blood Count 4.44 10^6/ul (4.00-5.40); Red Cell Distribution Width 13 % (10.5-15); White Blood Count 8.3 10^3/ul (3.5-10.8)
[2017-11-06] MEDS ORDERED: Albuterol/Ipratropium NEB.SOL* Albuterol 2.5 MG/Ipratropium 0.5 MG 3 ML ONE (10:27)
[2017-11-06 11:01] LABS: Urine Appearance Clear; Urine Blood Negative (Negative); Urine Color Yellow; Urine Ketones Negative (Negative); Urine Protein Negative (Negative); Urine Specific Gravity 1.014 (1.010-1.030); Urine Urobilinogen Negative (Negative)
[2017-11-06] MEDS ORDERED: cefTRIAXone(*) 1 GM in NS 0.9% 50 ML* 50 ML IVPB ONE (11:07)
[2017-11-06] MEDS ORDERED: Azithromycin IV(*) 500 MG in NS 0.9% 250 ML* 250 ML IVPB ONE (11:07)
[2017-11-06] MEDS ORDERED: Albuterol HFA INHALER* 8 gm MDI INH PRN (11:41)
[2017-11-06] MEDS ORDERED: LORazepam TAB(*) 0.5 MG PO PRN (11:41)
[2017-11-06] MEDS ORDERED: Acetaminophen TAB* 325 MG PO PRN (11:44)
[2017-11-06] MEDS ORDERED: PROCHLORPERAZINE INJ 5 MG/ML 2 ML VIAL IV PRN (11:44)
[2017-11-06] MEDS ORDERED: Levofloxacin 500 MG IVPREMIX(* 500 MG/100 ML BAG IVPB ONE (11:44)
[2017-11-06] MEDS: Albuterol/Ipratropium NEB.SOL* Albuterol 2.5 MG/Ipratropium 0.5 MG 3 ML INH SCH ×4 (13:00→22:56)
[2017-11-06] MEDS: Morphine VIAL* 4 MG/ML VIAL (1 ml vial) IV PRN (13:05)
[2017-11-06] MEDS: Mometasone/Formoter 200/5 MDI INH SCH ×2 (13:33→20:07)
[2017-11-06] MEDS: Furosemide TAB* 20 MG PO SCH (13:50)
[2017-11-06] MEDS: CMC:Irbesartan (NF) 150 MG TAB PO SCH (13:50)
[2017-11-06] MEDS: Pregabalin CAP(*) 25 MG PO SCH (13:50)
[2017-11-06] MEDS: Heparin VIAL(*) 5000 UNITS/ML VIAL (FIVE THOUSAND) SUBCUT SCH ×2 (13:50→21:21)
--- NOTE | 2017-11-06 15:10 | HP ---
CC: Echo Rivero NP * HISTORY AND PHYSICAL: DATE OF ADMISSION: 11/06/17 TIME OF EVALUATION: 11:30 a.m. PRIMARY CARE PROVIDER: Echo Rivero NP CHIEF COMPLAINT: Shortness of breath. HISTORY OF PRESENT ILLNESS: Mrs. Coburn is a 77-year-old lady with a past medical history of severe COPD; chronic hypoxemic respiratory failure, on 2 L of oxygen at home; hypertension; hyperlipidemia; AAA; hyponatremia secondary to SIADH; peripheral neuropathy; colon cancer, status post resection and chemotherapy; osteoporosis, who presented to the emergency room with complaints of severe shortness of breath. The patient states she was in her usual state of health until a week ago when she noticed worsening of her baseline dyspnea associated with moist nonproductive cough. She saw her primary care provider the next day, was prescribed prednisone and azithromycin and initially had improvement of her symptoms. Her daughter states that over the weekend, the patient felt close to her baseline, although the cough persisted. Yesterday, the patient had worsening of her symptoms again and she had to increase her oxygen from her usual 2 L to 3.5 L, but overnight, the dyspnea became severe and she came to the emergency room today. She denies fever, chills, chest pain, palpitations, urinary or bowel complaints. PAST MEDICAL HISTORY: 1. Severe COPD. 2. Chronic hypoxemic respiratory failure with supplemental oxygen 2 L per minute continuously. 3. Hypertension. 4. Abdominal aortic aneurysm. 5. Hyperlipidemia. 6. Hyponatremia, likely secondary to SIADH. 7. Peripheral neuropathy. 8. Colon cancer, status post resection and chemotherapy. 9. Osteoporosis. 10. Status post left total knee replacement. MEDICATION LIST: 1. Albuterol HFA 2 puffs inhaled q.4 hours p.r.n. shortness of breath. 2. DuoNeb 1 nebulized 4 times daily as needed for shortness of breath. 3. Vitamin C 1000 mg p.o. daily. 4. Azithromycin 250 mg p.o. daily. 5. Symbicort 160/4.5 two puffs inhaled b.i.d. 6. Calcium plus vitamin D 1 tablet p.o. daily. 7. Colace 100 mg p.o. daily. 8. Furosemide 20 mg p.o. daily. 9. Irbesartan 300 mg p.o. daily. 10. Lorazepam 0.5 mg p.o. q.6 hours p.r.n. anxiety, MDD 4. 11. Multivitamins 1 tablet p.o. daily. 12. Prednisone 40 mg p.o. daily. 13. Lyrica 25 mg p.o. q.a.m. and 50 mg p.o. at bedtime. 14. Senna 1 tablet p.o. daily as needed for constipation. 15. Simvastatin 20 mg p.o. daily. 16. Vitamin B 1 capsule p.o. daily. 17. Vitamin E 400 units p.o. daily. ALLERGIES: To ADHESIVE TAPE, CODEINE, IODINE, PENICILLINS, PINEAPPLE, SPIRIVA, and RAISINS. FAMILY HISTORY: Father of lung and liver cancer. Mother of natural causes. 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 Surrogate decision maker is her daughter, Lily Monroe, phone number is [phone]. The patient was a smoker. She quit tobacco in 2003. No history of alcohol or drug use. REVIEW OF SYSTEMS: A 14-point review of systems was performed and all the pertinent negative and positive findings are in the HPI. PHYSICAL EXAMINATION GENERAL: The patient is an elderly lady, sitting up in the ED stretcher, in mild respiratory distress. VITAL SIGNS: Temperature 99.5, heart rate is 84, respiratory rate is 23, oxygen saturation was 88% on 10 L nasal cannula, blood pressure 150/67. HEENT: Pupils are equal. Moist mucous membranes. CHEST: Breath sounds present bilaterally with scattered wheeze, diminished throughout. CVS: Normal S1, S2. Regular rate and rhythm. Tachycardic. ABDOMEN: Obese, soft, nontender, nondistended. Bowel sounds are present. EXTREMITIES: Puffy legs, but no pitting edema. NEURO: She is alert and oriented x3. Able to move all 4 extremities. LABORATORY AND IMAGING DATA: The patient had a CBC that showed WBC of 8.3, hemoglobin of 13.7, hematocrit of 41, platelets of 300 with 83% neutrophils. D- dimer was 245. Chemistry showed a sodium of 136, potassium of 4.3, chloride of 98, bicarb of 31, BUN of 21, creatinine of 0.98, glucose of 104, lactic acid of 1.8, calcium of 9.2. LFTs were normal. Urinalysis was negative. Chest x-ray showed a small left pleural effusion with bibasilar atelectasis versus early consolidation. EKG done on 11/06/17 at 8:10 a.m. showed sinus rhythm at 83 beats per minute with no ST-T changes. No significant change when compared to her prior EKG from July 2017. ASSESSMENT AND PLAN: Mrs. Coburn is a 77-year-old lady with a past medical history of severe chronic obstructive pulmonary disease, chronic hypoxemic respiratory failure, hypertension, hyperlipidemia, abdominal aortic aneurysm, hyponatremia, who presented to the emergency room with complaints of cough and shortness of breath, found to have chronic obstructive pulmonary disease exacerbation. 1. Acute on chronic hypoxemic respiratory failure. At home, the patient is usually on 2 L of oxygen continuously. Yesterday, she had increased it to 3.5 and in the emergency room, the patient is on 10 L and still having difficulty maintaining her oxygen saturation and with increased work of breathing. She will be admitted to the intensive care unit and we are going to start her on Vapotherm to decrease her work of breathing and continue to monitor. 2. Acute chronic obstructive pulmonary disease exacerbation secondary to bronchitis. The patient had partial improvement of her symptoms with prednisone and azithromycin over the weekend, but yesterday, the symptoms got worse again. She will be started on levofloxacin and we are going to change her steroids to IV. We will continue bronchodilators and inhaled steroids. Looking at her x -ray, I do not think she has pneumonia at this point, but she is a very high risk patient for pneumonia. She also had a minimally elevated D-dimer of 245. With her history of IODINE, I do not think a CTA of the chest is indicated at this point as I believe her symptoms are secondary to chronic obstructive pulmonary disease exacerbation. If she fails to improve with current management , we may pursue a V/Q scan, but as stated above, my level of suspicion for pulmonary embolism is very little. 3. Hypertension. It is controlled. We will continue furosemide, irbesartan. 4. Hyperlipidemia. We will continue atorvastatin. 5. DVT prophylaxis: The patient has a score of 4 on the DVT Prophylaxis Risk Assessment Guide and she will be started on subcutaneous heparin. 6. Code status is full. TIME SPENT: Approximately 65 minutes were spent with the patient and family's interview, medical records review, physical examination to complete this admission, more than half of this time was spent [id number] with the patient and coordination of care. [id number]/[facility] #: [id number] EULALIO
[2017-11-06] MEDS: methylPREDNISolone SOD 40 MG* 1 ML VIAL IV SCH (17:37)
[2017-11-06] MEDS: Pregabalin CAP(*) 50 MG PO SCH (21:20)
[2017-11-07] MEDS: methylPREDNISolone SOD 40 MG* 1 ML VIAL IV SCH ×3 (02:44→15:58)
[2017-11-07] MEDS: Albuterol/Ipratropium NEB.SOL* Albuterol 2.5 MG/Ipratropium 0.5 MG 3 ML INH SCH ×6 (03:50→23:17)
[2017-11-07] MEDS: Heparin VIAL(*) 5000 UNITS/ML VIAL (FIVE THOUSAND) SUBCUT SCH ×3 (06:21→22:18)
[2017-11-07 06:34] LABS: ABS Basophils 0 10^3/ul (0-0.2); ABS Eosinophils 0 10^3/ul (0-0.6); ABS Lymphocytes 0.5 10^3/ul (1.0-4.8); ABS Monocytes 0.5 10^3/ul (0-0.8); ABS Neutrophils 8.1 10^3/ul (1.5-7.7); ABS Nucleated RBC 0 10^3/ul; Eosinophil % 0 % (0-6); Hematocrit 39 % (35-47); Hemoglobin 13.5 g/dl (12.0-16.0); Mean Corpuscular HGB Conc 34 g/dl (31-36); Mean Corpuscular Hemoglobin 31 pg (27-31); Mean Corpuscular Volume 91 fL (80-97); Mean Platelet Volume 7.9 um3 (7.4-10.4); Nucleated Red Blood Cells % 0; Platelet Count 281 10^3/ul (150-450); Red Blood Count 4.32 10^6/ul (4.00-5.40); Red Cell Distribution Width 13 % (10.5-15); White Blood Count 9.1 10^3/ul (3.5-10.8)
[2017-11-07 06:52] LABS: EGFR Non-African American 57.7 (>60)
[2017-11-07] MEDS: Morphine VIAL* 4 MG/ML VIAL (1 ml vial) IV PRN (07:06)
[2017-11-07] MEDS: Mometasone/Formoter 200/5 MDI INH SCH ×2 (08:20→19:35)
[2017-11-07] MEDS: Docusate CAP* 100 MG PO SCH (08:23)
[2017-11-07] MEDS: Ascorbic Acid TAB* 500 MG PO SCH (08:23)
[2017-11-07] MEDS: Pregabalin CAP(*) 25 MG PO SCH (08:23)
[2017-11-07] MEDS: Furosemide TAB* 20 MG PO SCH (08:23)
[2017-11-07] MEDS: Calcium/Vitamin D TAB 250/125* TAB PO SCH (08:23)
[2017-11-07] MEDS: Multivitamins/Minerals TAB PO SCH (08:24)
[2017-11-07] MEDS: CMC:Irbesartan (NF) 150 MG TAB PO SCH (08:42)
[2017-11-07] MEDS: amLODIPine TAB* 5 MG PO SCH (10:39)
--- NOTE | 2017-11-07 11:10 | RAD ---
INDICATION: Dyspnea evaluate for pulmonary embolism. Comparison: Correlation is made with prior chest x-ray study from November 07, 2017. Technique: The patient was unable to perform the ventilation portion of the study limiting the exam. The patient received 6.2 mCi of technetium 99 MAA intravenously and the lungs were imaged in 8 projections. FINDINGS: There is a moderate size defect in the posterior aspect of the right lower lobe. No other significant perfusion defects are appreciated. Chest x-ray exam demonstrates underinflated lungs with small infiltrates at both lung bases and a small patchy left upper lobe infiltrate. There are small bilateral pleural effusions. IMPRESSION: 1. INTERMEDIATE PROBABILITY FOR PULMONARY EMBOLISM. 2. LIMITED PERFUSION ONLY STUDY.
--- NOTE | 2017-11-07 11:24 | RAD ---
HISTORY: DYSPNEA COMPARISONS: November 06, 2017 VIEWS: 1: frontal portable view of the chest at 9:55 AM FINDINGS: LINES AND TUBES: None. CARDIOMEDIASTINAL SILHOUETTE: The cardiomediastinal silhouette is stable. PLEURA: There is blunting of the left costophrenic angle. LUNG PARENCHYMA: There is linear opacification of the lung bases bilaterally. ABDOMEN: The upper abdomen is clear. There is no subphrenic gas. BONES AND SOFT TISSUES: No bone or soft tissue abnormalities are noted. IMPRESSION: SMALL LEFT PLEURAL EFFUSION WITH PLATELIKE ATELECTASIS OF THE LUNG BASES BILATERALLY.
[2017-11-07] MEDS: Levofloxacin 500 MG IVPREMIX(* 500 MG/100 ML BAG IVPB SCH (12:18)
--- NOTE | 2017-11-07 13:29 | RAD ---
HISTORY: Dyspnea, r/o DVT COMPARISONS: September 18, 2017 TECHNIQUE: Multiple transverse and longitudinal ultrasound images were obtained of the bilateral lower extremities from the level of the common femoral vein inferiorly through to the infrapopliteal veins using grayscale, color Doppler, and spectral Doppler imaging with and without compression and with augmentation. FINDINGS: VEINS: The venous system of the bilateral lower extremities is compressible throughout its course, with normal flow on color Doppler imaging and normal response to augmentation on spectral Doppler imaging. SOFT TISSUES: Unremarkable. OTHER FINDINGS: There is a 3.1 x 0.6 x 1.5 cm right popliteal fossa cyst. IMPRESSION: NO RIGHT LOWER EXTREMITY DEEP VEIN THROMBOSIS. NO LEFT LOWER EXTREMITY DEEP VEIN THROMBOSIS
--- NOTE | 2017-11-07 14:04 | PN ---
Subjective Date of Service: 11/07/17 Interval History: HOSPITALIST PROGRESS NOTE Patient seen and examined at bedside. Care reviewed and d/w Mia Kim RN. She's more comfortable today. Still has dyspnea, especially with exertion, but not as severe as in the ED. Denies chest pain or palpitations. Moist cough persists, able to expectorate a little bit more now. Family History: Unchanged from Admission Social History: Unchanged from Admission Past Medical History: Unchanged from Admission Objective Active Medications: Acetaminophen (Tylenol Tab*) 650 mg PO Q6H PRN PRN Reason: pain/fever Albuterol (Ventolin Hfa Inhaler*) 2 puff INH Q4H PRN PRN Reason: COUGH Albuterol/Ipratropium (Duoneb (Albuterol 2.5 Mg/Ipratropium 0.5 Mg)) 1 neb INH [id number] AWAKE [facility] Last Admin: 11/07/17 11:08 Dose: 1 neb Amlodipine Besylate (Norvasc Tab*) 5 mg PO DAILY [facility] Last Admin: 11/07/17 10:39 Dose: 5 mg Ascorbic Acid (Vitamin C Tab*) 1,000 mg PO DAILY [facility] Last Admin: 11/07/17 08:23 Dose: 1,000 mg Atorvastatin Calcium (Lipitor*) 10 mg PO 1999 [facility] Calcium/Vitamin D (Oscal D Tab 250/125*) 1 tab PO DAILY [facility] Last Admin: 11/07/17 08:23 Dose: 1 tab Docusate Sodium (Colace Cap*) 100 mg PO DAILY [facility] Last Admin: 11/07/17 08:23 Dose: 100 mg Furosemide (Lasix Tab*) 20 mg PO DAILY [facility] Last Admin: 11/07/17 08:23 Dose: 20 mg Heparin Sodium (Porcine) (Heparin Vial(*)) 5,000 units SUBCUT Q8HR [facility] Last Admin: 11/07/17 06:21 Dose: 5,000 units Levofloxacin/Dextrose (Levaquin 500 Mg Ivpremix(*)) 500 mg in 100 mls @ 100 mls /hr IVPB Q24H [facility] Last Admin: 11/07/17 12:18 Dose: 100 mls/hr Irbesartan (Avapro (Nf)) 300 mg PO DAILY [facility] Last Admin: 11/07/17 08:42 Dose: 300 mg Lorazepam (Ativan Tab(*)) 0.5 mg PO Q6H PRN PRN Reason: ANXIETY Methylprednisolone Sodium Succinate (Solu-Medrol 40 Mg) 40 mg IV Q8H [facility] Last Admin: 11/07/17 08:22 Dose: 40 mg Mometasone Furoate/Formoterol Fumar (Dulera 200/5 Mdi*) 2 puff INH BID [facility]; Protocol Last Admin: 11/07/17 08:20 Dose: 2 puff Morphine Sulfate (Morphine Vial*) 2 mg IV Q4H PRN PRN Reason: PAIN Last Admin: 11/07/17 07:06 Dose: 2 mg Multivitamins/Minerals (Theragran/Minerals Tab*) 1 tab PO DAILY [facility] Last Admin: 11/07/17 08:24 Dose: 1 tab Pregabalin (Lyrica Cap(*)) 50 mg PO BEDTIME [facility] Last Admin: 11/06/17 21:20 Dose: 50 mg Pregabalin (Lyrica Cap(*)) 25 mg PO QAM [facility] Last Admin: 11/07/17 08:23 Dose: 25 mg Prochlorperazine Edisylate (Compazine Inj*) 5 mg IV Q6H PRN PRN Reason: NAUSEA/VOMITING Senna (Senokot Tab*) 1 tab PO DAILY PRN PRN Reason: CONSTIPATION Vital Signs - 8 hr 11/07/17 11/07/17 11/07/17 06:00 06:30 06:31 Temperature Pulse Rate 75 72 71 Respiratory 18 16 17 Rate Blood Pressure 176/96 179/107 175/95 (mmHg) O2 Sat by Pulse 97 97 97 Oximetry 11/07/17 11/07/17 11/07/17 07:00 07:04 07:06 Temperature Pulse Rate 97 76 Respiratory 19 18 18 Rate Blood Pressure 172/93 (mmHg) O2 Sat by Pulse 94 96 Oximetry 11/07/17 11/07/17 11/07/17 07:30 07:55 08:00 Temperature 96.1 F Pulse Rate 89 76 Respiratory 23 17 Rate Blood Pressure 161/100 164/100 (mmHg) O2 Sat by Pulse 96 92 Oximetry 11/07/17 11/07/17 11/07/17 09:00 09:05 09:07 Temperature Pulse Rate 47 78 78 Respiratory 17 20 20 Rate Blood Pressure 167/93 (mmHg) O2 Sat by Pulse 89 96 96 Oximetry 11/07/17 11/07/17 11/07/17 09:50 10:00 10:01 Temperature Pulse Rate 78 85 83 Respiratory 19 22 17 Rate Blood Pressure 138/107 143/80 (mmHg) O2 Sat by Pulse 81 84 85 Oximetry 11/07/17 11/07/17 11/07/17 10:12 10:38 11:00 Temperature 98.4 F Pulse Rate 93 Respiratory 17 26 Rate Blood Pressure 144/86 (mmHg) O2 Sat by Pulse 88 Oximetry 11/07/17 11/07/17 11/07/17 11:01 11:09 12:00 Temperature Pulse Rate 82 64 Respiratory 20 18 19 Rate Blood Pressure 144/71 142/74 (mmHg) O2 Sat by Pulse 92 89 Oximetry 11/07/17 11/07/17 13:00 13:01 Temperature Pulse Rate 74 75 Respiratory 21 22 Rate Blood Pressure 175/80 (mmHg) O2 Sat by Pulse 91 88 Oximetry Oxygen Devices in Use Now: High Flow Nasal Cannula - 25 liters 80% FiO2 Appearance: Pleasant elderly lady lying in bed in NAD. Eyes: No Scleral Icterus Ears/Nose/Mouth/Throat: Mucous Membranes Moist Neck: Trachea Midline Respiratory: Symmetrical Chest Expansion and Respiratory Effort, - - BS+ bilaterally with scattered rhonchi on the left Cardiovascular: RRR - Normal S1 and S2 Abdominal: NL Sounds; No Tenderness; No Distention Neurological: Alert and Oriented x 3, NL Muscle Strength and Tone Result Diagrams: 11/07/17 06:27 11/07/17 06:27 Assess/Plan/Problems-Billing Assessment: Mrs Coburn is a 77yo F with PMH of severe COPD, chronic hypoxemic respiratory failure on home O2 2 liters/min continuously, HTN, AAA, HLD, hyponatremia likely secondary to SIADH, peripheral neuropathy, colon CA s/p colectomy, osteoporosis, who presented to ED with dyspnea, found to have COPD exacerbation secondary to bronchitis. - Patient Problems (1) Acute and chronic respiratory failure with hypoxia Comment: - Patient on 2 liters of O2 at baseline, now requiring Vapotherm 25 liters FiO2 80%, but much more comfortable than yesterday. (2) COPD exacerbation Comment: - Secondary to bronchitis. - Continue Levofloxacin, steroids, bronchodilators/metanebs. - D-dimer was minimally elevated and my PE suspicion is low - will check LE doppler and V/Q scan. - Pulmonary input requested. (3) HTN (hypertension) Comment: - Uncontrolled in the setting of steroid use and anxiety. - Continue ARB and Furosemide, add Amlodipine and monitor. (4) Hyperlipidemia Comment: - Continue atorvastatin. (5) DVT prophylaxis Comment: - SQ heparin. (6) Full code status Comment: Status and Disposition: Inpatient. Continue to monitor in ICU.
[2017-11-07] MEDS ORDERED: Atorvastatin* 10 MG TAB PO SCH (20:00)
[2017-11-07] MEDS: Pregabalin CAP(*) 50 MG PO SCH (22:18)
--- NOTE | 2017-11-07 22:29 | CONS ---
PULMONARY CONSULTATION REPORT: DATE OF CONSULT: 11/07/17 CONSULTATION REQUESTED BY: Dr. Busch. REASON FOR CONSULT: Evaluation of shortness of breath. HISTORY OF PRESENT ILLNESS: The patient is a 77-year-old obese female with history of severe COPD, O2 dependent, known to me from prior outpatient evaluation. The patient presented for evaluation of worsening shortness of breath. She was in her usual state of health until a week ago, started gradually worsening shortness of breath and nonproductive cough. The patient was seen by primary care physician, was prescribed prednisone and azithromycin for COPD exacerbation. The patient had slight improvement in symptoms, started feeling worse again, required increased O2 supplementation at home from 2 liters to 3.5 liters, became more dyspneic and came into the emergency room for further evaluation. She was admitted to ICU for acute COPD exacerbation. She was also noted to be hypoxemic, requiring increased FiO2. The patient was seen and examined at bedside. The patient reports feeling slightly better. She has been on high flow at 80% FiO2 and flow of 25. The patient reports improvement in shortness of breath at rest, moving makes her dyspneic. She also has been receiving nebulizers every 4 hours along with MetaNebs. The patient reports not being able to cough much. Denies fevers, chills, chest pain, palpations, urinary or bowel complaints. PAST MEDICAL HISTORY: 1. Severe COPD. 2. Chronic hypoxic respiratory failure, on 2 liters O2 at home. 3. Morbid obesity. 4. Hypertension. 5. Benign lesion under the diaphragm. 6. Abdominal aortic aneurysm. 7. Dyslipidemia. 8. Hyponatremia secondary to SIADH. 9. Peripheral neuropathy. 10. Colon cancer, status post resection and chemotherapy. 11. Osteoporosis. 12. Status post left knee replacement. MEDICATIONS: 1. Albuterol. 2. DuoNeb. 3. Vitamin C. 4. Azithromycin. 5. Symbicort. 6. Calcium and vitamin D. 7. Colace. 8. Furosemide. 9. Irbesartan. 10. Ativan. 11. Multivitamin. 12. Prednisone. 13. Lyrica. 14. Senna. 15. Simvastatin. 16. Vitamin B. 17. Vitamin E. ALLERGIES: ADHESIVE TAPE, CODEINE, IODINE, PENICILLIN, PINEAPPLE, SPIRIVA, and RAISINS. FAMILY HISTORY: Father of lung and liver cancer. Mother of natural causes. 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 She is a former smoker, quit in 2003. No history of alcohol or drug abuse. REVIEW OF SYSTEMS: All 14 systems reviewed and as per HPI, negative other than stated above in HPI. PHYSICAL EXAM: The patient in bed, in no apparent distress. Vital Signs: Temperature 98.4, pulse 79 beats per minute, respiratory rate 21 per minute, O2 sat 94% on high flow, blood pressure 151/83. HEENT: Pupils equal and reactive to light. Mucous membranes moist. Lungs: Diminished air entry bilaterally. Scattered wheeze present, rhonchi present. Cardiovascular: S1, S2 present, regular. Abdomen: Obese. Bowel sounds present. Nontender, nondistended. Extremities: Normal range of motion. No edema. Skin: No rash or bruise. Neuro: No focal deficits. DIAGNOSTIC STUDIES/LAB DATA: WBC count 9.1, hemoglobin 13.5, hematocrit 39, platelet count of 281. Sodium 136, potassium 4.4, chloride 100, bicarb 30, BUN 19, creatinine 0.94. Lactic acid within normal limits. Calcium normal. UA was negative. Blood cultures negative to date. Chest x-ray on admission was personally reviewed by me. The patient with small left pleural effusion with basilar atelectatic changes. No other acute air space opacities noted. V/Q scan was nondiagnostic for pulmonary embolism. Lower extremity Dopplers were negative for DVT. IMPRESSION AND RECOMMENDATIONS: 77-year-old morbidly obese female with history of severe chronic obstructive pulmonary disease, O2 dependent at home, admitted with worsening shortness of breath secondary to acute chronic obstructive pulmonary disease exacerbation. Her D-dimer is elevated; however, I do not suspect that she would have pulmonary embolism, D-dimer is only mildly elevated at 245, which could have been secondary to underlying obesity. V/Q scan inconclusive; however, clinical suspicion is much lower. She definitely seems to be in acute chronic obstructive pulmonary disease exacerbation at this time. Will continue with MetaNebs, nebulizers, q. 4 hours. Will do slow steroid taper based on the symptoms. Continue with long-acting bronchodilators. Agree with current antibiotic choice. Will try to obtain sputum cultures. Will continue to titrate FiO2 as tolerated. Thank you for allowing me to participate in the care of your patient. Will follow up with you. [id number]/[facility] #: [id number] EULALIO
[2017-11-08] MEDS: methylPREDNISolone SOD 40 MG* 1 ML VIAL IV SCH ×4 (01:23→23:50)
[2017-11-08] MEDS: Albuterol/Ipratropium NEB.SOL* Albuterol 2.5 MG/Ipratropium 0.5 MG 3 ML INH SCH ×5 (04:04→21:29)
[2017-11-08] MEDS: Heparin VIAL(*) 5000 UNITS/ML VIAL (FIVE THOUSAND) SUBCUT SCH ×3 (05:42→22:01)
[2017-11-08 05:50] LABS: ABS Basophils 0 10^3/ul (0-0.2); ABS Eosinophils 0 10^3/ul (0-0.6); ABS Lymphocytes 0.4 10^3/ul (1.0-4.8); ABS Monocytes 0.7 10^3/ul (0-0.8); ABS Nucleated RBC 0 10^3/ul; Eosinophil % 0 % (0-6); Hematocrit 40 % (35-47); Hemoglobin 13.6 g/dl (12.0-16.0); Lymphocyte % 3.9 % (25-47); Mean Corpuscular HGB Conc 34 g/dl (31-36); Mean Corpuscular Hemoglobin 31 pg (27-31); Mean Corpuscular Volume 91 fL (80-97); Mean Platelet Volume 8.4 um3 (7.4-10.4); Nucleated Red Blood Cells % 0; Platelet Count 299 10^3/ul (150-450); Red Blood Count 4.42 10^6/ul (4.00-5.40); Red Cell Distribution Width 13 % (10.5-15); White Blood Count 11.1 10^3/ul (3.5-10.8)
[2017-11-08 06:09] LABS: EGFR Non-African American 58.5 (>60)
[2017-11-08] MEDS: CMC:Irbesartan (NF) 150 MG TAB PO SCH (08:25)
[2017-11-08] MEDS: Calcium/Vitamin D TAB 250/125* TAB PO SCH (08:26)
[2017-11-08] MEDS: Ascorbic Acid TAB* 500 MG PO SCH (08:26)
[2017-11-08] MEDS: Multivitamins/Minerals TAB PO SCH (08:26)
[2017-11-08] MEDS: Docusate CAP* 100 MG PO SCH (08:26)
[2017-11-08] MEDS: Pregabalin CAP(*) 25 MG PO SCH (08:26)
[2017-11-08] MEDS: amLODIPine TAB* 5 MG PO SCH (08:26)
[2017-11-08] MEDS: Furosemide TAB* 20 MG PO SCH (08:26)
[2017-11-08] MEDS: Mometasone/Formoter 200/5 MDI INH SCH ×2 (08:51→21:39)
[2017-11-08] MEDS: guaiFENesin ER TAB 600 MG PO SCH ×2 (11:55→20:15)
[2017-11-08] MEDS: Levofloxacin 500 MG IVPREMIX(* 500 MG/100 ML BAG IVPB SCH (11:55)
--- NOTE | 2017-11-08 12:17 | PN ---
Subjective Date of Service: 11/08/17 Interval History: HOSPITALIST PROGRESS NOTE Patient seen and examined at bedside. Care reviewed and d/w Mia Kim RN. She feels a little better today. Comfortable at rest, still gets dyspneic with minimal exertion. Down to 20 liters/FiO2 60% Vapotherm. Family History: Unchanged from Admission Social History: Unchanged from Admission Past Medical History: Unchanged from Admission Objective Active Medications: Acetaminophen (Tylenol Tab*) 650 mg PO Q6H PRN PRN Reason: pain/fever Albuterol (Ventolin Hfa Inhaler*) 2 puff INH Q4H PRN PRN Reason: COUGH Albuterol/Ipratropium (Duoneb (Albuterol 2.5 Mg/Ipratropium 0.5 Mg)) 1 neb INH [id number] AWAKE [facility] Last Admin: 11/08/17 08:51 Dose: 1 neb Amlodipine Besylate (Norvasc Tab*) 5 mg PO DAILY [facility] Last Admin: 11/08/17 08:26 Dose: 5 mg Ascorbic Acid (Vitamin C Tab*) 1,000 mg PO DAILY [facility] Last Admin: 11/08/17 08:26 Dose: 1,000 mg Calcium/Vitamin D (Oscal D Tab 250/125*) 1 tab PO DAILY [facility] Last Admin: 11/08/17 08:26 Dose: 1 tab Docusate Sodium (Colace Cap*) 100 mg PO DAILY [facility] Last Admin: 11/08/17 08:26 Dose: 100 mg Furosemide (Lasix Tab*) 20 mg PO DAILY [facility] Last Admin: 11/08/17 08:26 Dose: 20 mg Guaifenesin (Mucinex*) 600 mg PO BID [facility] Last Admin: 11/08/17 11:55 Dose: 600 mg Heparin Sodium (Porcine) (Heparin Vial(*)) 5,000 units SUBCUT Q8HR [facility] Last Admin: 11/08/17 05:42 Dose: 5,000 units Levofloxacin/Dextrose (Levaquin 500 Mg Ivpremix(*)) 500 mg in 100 mls @ 100 mls /hr IVPB Q24H [facility] Last Admin: 11/08/17 11:55 Dose: 100 mls/hr Irbesartan (Avapro (Nf)) 300 mg PO DAILY [facility] Last Admin: 11/08/17 08:25 Dose: 300 mg Lorazepam (Ativan Tab(*)) 0.5 mg PO Q6H PRN PRN Reason: ANXIETY Last Admin: 11/08/17 01:34 Dose: 0.5 mg Methylprednisolone Sodium Succinate (Solu-Medrol 40 Mg) 40 mg IV Q8H [facility] Last Admin: 11/08/17 08:26 Dose: 40 mg Mometasone Furoate/Formoterol Fumar (Dulera 200/5 Mdi*) 2 puff INH BID [facility]; Protocol Last Admin: 11/08/17 08:51 Dose: 2 puff Morphine Sulfate (Morphine Vial*) 2 mg IV Q4H PRN PRN Reason: PAIN Last Admin: 11/07/17 07:06 Dose: 2 mg Multivitamins/Minerals (Theragran/Minerals Tab*) 1 tab PO DAILY [facility] Last Admin: 11/08/17 08:26 Dose: 1 tab Pregabalin (Lyrica Cap(*)) 50 mg PO BEDTIME [facility] Last Admin: 11/07/17 22:18 Dose: 50 mg Pregabalin (Lyrica Cap(*)) 25 mg PO QAM [facility] Last Admin: 11/08/17 08:26 Dose: 25 mg Prochlorperazine Edisylate (Compazine Inj*) 5 mg IV Q6H PRN PRN Reason: NAUSEA/VOMITING Senna (Senokot Tab*) 1 tab PO DAILY PRN PRN Reason: CONSTIPATION Vital Signs - 8 hr 11/08/17 11/08/17 11/08/17 05:00 05:01 06:00 Temperature Pulse Rate 86 84 71 Respiratory 17 17 18 Rate Blood Pressure 154/113 (mmHg) O2 Sat by Pulse 96 94 97 Oximetry 11/08/17 11/08/17 11/08/17 06:01 07:00 07:01 Temperature Pulse Rate 73 80 90 Respiratory 23 15 18 Rate Blood Pressure 160/89 181/102 (mmHg) O2 Sat by Pulse 97 97 98 Oximetry 11/08/17 11/08/17 11/08/17 08:00 08:01 08:53 Temperature 97.1 F Pulse Rate 83 78 68 Respiratory 28 22 16 Rate Blood Pressure 174/100 (mmHg) O2 Sat by Pulse 95 94 97 Oximetry 11/08/17 11/08/17 11/08/17 09:00 09:01 10:00 Temperature Pulse Rate 65 70 77 Respiratory 13 18 17 Rate Blood Pressure 161/90 (mmHg) O2 Sat by Pulse 97 96 96 Oximetry 11/08/17 11/08/17 10:01 11:00 Temperature Pulse Rate 61 69 Respiratory 23 23 Rate Blood Pressure 137/75 (mmHg) O2 Sat by Pulse 93 94 Oximetry Oxygen Devices in Use Now: High Flow Heated Nasal Cannula - 20 liters FiO2 60% Appearance: Pleasant elderly lady lying in bed in NAD. Eyes: No Scleral Icterus Ears/Nose/Mouth/Throat: Mucous Membranes Moist Neck: Trachea Midline Respiratory: Symmetrical Chest Expansion and Respiratory Effort, - - BS+ bilaterally diminished with scattered rhonchi, but no wheezes Cardiovascular: RRR - Normal S1 and S2 Abdominal: NL Sounds; No Tenderness; No Distention Neurological: Alert and Oriented x 3, NL Muscle Strength and Tone Result Diagrams: 11/08/17 05:30 11/08/17 05:30 Assess/Plan/Problems-Billing Assessment: Mrs Coburn is a 77yo F with PMH of severe COPD, chronic hypoxemic respiratory failure on home O2 2 liters/min continuously, HTN, AAA, HLD, hyponatremia likely secondary to SIADH, peripheral neuropathy, colon CA s/p colectomy, osteoporosis, who presented to ED with dyspnea, found to have COPD exacerbation secondary to bronchitis. - Patient Problems (1) Acute and chronic respiratory failure with hypoxia Comment: - Patient on 2 liters of O2 at baseline, requiring Vapotherm 20 liters FiO2 60%. - Continues to improve slowly. - Will titrate supplemental O2 down as tolerated. (2) COPD exacerbation Comment: - Secondary to bronchitis. - Continue Levofloxacin, steroids, bronchodilators/metanebs. - D-dimer was minimally elevated and my PE suspicion is low - LE doppler was negative and V/Q scan was intermediate. - Pulmonary input appreciated - agrees with current management. (3) HTN (hypertension) Comment: - Better controlled now. - Continue ARB, Furosemide, and Amlodipine. (4) Hyperlipidemia Comment: - Continue atorvastatin. (5) DVT prophylaxis Comment: - SQ heparin. (6) Full code status Comment: Status and Disposition: Inpatient. Continue to monitor in ICU - will transfer to floor when weaned off of Vapotherm.
[2017-11-08] MEDS: SIMVASTATIN 20 MG PO SCH (18:07)
--- NOTE | 2017-11-08 18:34 | PN ---
Progress Note - Progress Note Date of Service: 11/08/17 - Pulm f/u note Note: Pt seen and examined at bedside. Pt reprots feeling much improved. FiO2 requirements coming down. Has been able to expectorate phleghm Active Medications Generic Name Dose Route Start Last Admin Trade Name Freq PRN Reason Stop Dose Admin Acetaminophen 650 mg 11/06/17 11:44 Tylenol Tab* PO Q6H PRN pain/fever Albuterol 2 puff 11/06/17 11:41 Ventolin Hfa Inhaler* INH Q4H PRN COUGH Albuterol/Ipratropium 1 neb 11/08/17 13:00 11/08/17 14:26 Duoneb (Albuterol 2.5 Mg/Ipratropium 0.5 Mg) INH 1 neb [id number] AWAKE [facility] Administration Amlodipine Besylate 5 mg 11/07/17 09:00 11/08/17 08:26 Norvasc Tab* PO 5 mg DAILY [facility] Administration Ascorbic Acid 1,000 mg 11/07/17 09:00 11/08/17 08:26 Vitamin C Tab* PO 1,000 mg DAILY [facility] Administration Calcium/Vitamin D 1 tab 11/07/17 09:00 11/08/17 08:26 Oscal D Tab 250/125* PO 1 tab DAILY [facility] Administration Docusate Sodium 100 mg 11/07/17 09:00 11/08/17 08:26 Colace Cap* PO 100 mg DAILY [facility] Administration Furosemide 20 mg 11/06/17 12:00 11/08/17 08:26 Lasix Tab* PO 20 mg DAILY [facility] Administration Guaifenesin 600 mg 11/08/17 12:00 11/08/17 11:55 Mucinex* PO 600 mg BID [facility] Administration Heparin Sodium (Porcine) 5,000 units 11/06/17 14:00 11/08/17 14:35 Heparin Vial(*) SUBCUT 5,000 units Q8HR [facility] Administration Levofloxacin/Dextrose 500 mg in 100 mls @ 100 mls/hr 11/07/17 12:00 11/08/17 11:55 Levaquin 500 Mg Ivpremix(*) IVPB 100 mls/hr Q24H [facility] Administration Irbesartan 300 mg 11/06/17 12:00 11/08/17 08:25 Avapro (Nf) PO 300 mg DAILY [facility] Administration Lorazepam 0.5 mg 11/06/17 11:41 11/08/17 01:34 Ativan Tab(*) PO 0.5 mg Q6H PRN Administration ANXIETY Methylprednisolone Sodium Succinate 40 mg 11/06/17 16:00 11/08/17 16:27 Solu-Medrol 40 Mg IV 40 mg Q8H [facility] Administration Mometasone Furoate/Formoterol Fumar 2 puff 11/06/17 12:00 11/08/17 08:51 Dulera 200/5 Mdi* INH 2 puff BID [facility] Administration Protocol Morphine Sulfate 2 mg 11/06/17 11:44 11/07/17 07:06 Morphine Vial* IV 2 mg Q4H PRN Administration PAIN Multivitamins/Minerals 1 tab 11/07/17 09:00 11/08/17 08:26 Theragran/Minerals Tab* PO 1 tab DAILY [facility] Administration Pregabalin 50 mg 11/06/17 21:00 11/07/17 22:18 Lyrica Cap(*) PO 50 mg BEDTIME [facility] Administration Pregabalin 25 mg 11/06/17 12:00 11/08/17 08:26 Lyrica Cap(*) PO 25 mg QAM [facility] Administration Prochlorperazine Edisylate 5 mg 11/06/17 11:44 Compazine Inj* IV Q6H PRN NAUSEA/VOMITING Senna 1 tab 11/06/17 11:41 Senokot Tab* PO DAILY PRN CONSTIPATION Simvastatin 20 mg 11/08/17 18:00 11/08/17 18:07 Zocor(Nf) PO 20 mg QPM [facility] Administration Vital Signs Temp Pulse Resp BP Pulse Ox 97.4 F 74 24 159/75 95 11/08/17 17:35 11/08/17 17:35 11/08/17 17:54 11/08/17 17:35 11/08/17 17:35 O/E: Pt in NAD HEENT: PERRLA, No JVD Lungs: Diminished air entry, scaterred wheeze + CVS: S1, S2+, regular Abd: Obese , BS+ Ext: Normal ROM Skin: NO rash Neuro: No focal defecits Laboratory Results - last 24 hr 11/08/17 11/08/17 05:30 05:30 WBC 11.1 H RBC 4.42 Hgb 13.6 Hct 40 MCV 91 MCH 31 MCHC 34 RDW 13 Plt Count 299 MPV 8.4 Neut % (Auto) 90.2 H Lymph % (Auto) 3.9 L [place] % (Auto) 5.9 Eos % (Auto) 0 Baso % (Auto) 0 Absolute Neuts (auto) 10.0 H Absolute Lymphs (auto) 0.4 L Absolute Monos (auto) 0.7 Absolute Eos (auto) 0 Absolute Basos (auto) 0 Absolute Nucleated RBC 0 Nucleated RBC % 0 Sodium 134 L Potassium 4.4 Chloride 99 L Carbon Dioxide 29 Anion Gap 6 BUN 26 H Creatinine 0.93 Est GFR ( Amer) 70.7 Est GFR (Non-Af Amer) 58.5 BUN/Creatinine Ratio 28.0 H Glucose 135 H Calcium 8.7 Magnesium 2.1 I/R: 77 y o morbidly obese f a/w worsening SOB, being treated for acute COPD exacerbation Pt improving clinically FiO2 requirements coming down Having cough, able to expectorate phleghm Will c/w prednisone taper Abx to complete 7 day course To regular floor
[2017-11-08] MEDS: Pregabalin CAP(*) 50 MG PO SCH (20:15)
[2017-11-09] MEDS: Albuterol/Ipratropium NEB.SOL* Albuterol 2.5 MG/Ipratropium 0.5 MG 3 ML INH SCH ×4 (02:04→19:48)
[2017-11-09] MEDS: Albuterol/Ipratropium NEB.SOL* Albuterol 2.5 MG/Ipratropium 0.5 MG 3 ML INH PRN (04:43)
[2017-11-09 05:28] LABS: ABS Basophils 0 10^3/ul (0-0.2); ABS Eosinophils 0 10^3/ul (0-0.6); ABS Lymphocytes 0.4 10^3/ul (1.0-4.8); ABS Monocytes 0.7 10^3/ul (0-0.8); ABS Neutrophils 8.8 10^3/ul (1.5-7.7); ABS Nucleated RBC 0 10^3/ul; Eosinophil % 0 % (0-6); Hematocrit 42 % (35-47); Lymphocyte % 4.4 % (25-47); Mean Corpuscular HGB Conc 34 g/dl (31-36); Mean Corpuscular Hemoglobin 31 pg (27-31); Mean Corpuscular Volume 92 fL (80-97); Mean Platelet Volume 8.4 um3 (7.4-10.4); Nucleated Red Blood Cells % 0.1; Platelet Count 304 10^3/ul (150-450); Red Blood Count 4.54 10^6/ul (4.00-5.40); Red Cell Distribution Width 14 % (10.5-15); White Blood Count 9.9 10^3/ul (3.5-10.8)
[2017-11-09] MEDS: Heparin VIAL(*) 5000 UNITS/ML VIAL (FIVE THOUSAND) SUBCUT SCH ×3 (05:55→22:06)
[2017-11-09] MEDS: Mometasone/Formoter 200/5 MDI INH SCH ×2 (07:25→20:00)
[2017-11-09] MEDS: CMC:Irbesartan (NF) 150 MG TAB PO SCH (09:06)
[2017-11-09] MEDS: Multivitamins/Minerals TAB PO SCH (09:07)
[2017-11-09] MEDS: Docusate CAP* 100 MG PO SCH (09:07)
[2017-11-09] MEDS: Furosemide TAB* 20 MG PO SCH (09:07)
[2017-11-09] MEDS: Calcium/Vitamin D TAB 250/125* TAB PO SCH (09:07)
[2017-11-09] MEDS: Ascorbic Acid TAB* 500 MG PO SCH (09:07)
[2017-11-09] MEDS: Pregabalin CAP(*) 25 MG PO SCH (09:07)
[2017-11-09] MEDS: methylPREDNISolone SOD 40 MG* 1 ML VIAL IV SCH ×2 (09:07→20:01)
[2017-11-09] MEDS: guaiFENesin ER TAB 600 MG PO SCH ×2 (09:07→22:06)
[2017-11-09] MEDS: amLODIPine TAB* 5 MG PO SCH (09:07)
[2017-11-09] MEDS ORDERED: Morphine INJ* 2 MG/ML 1 ML SYRINGE (TWO MG - NEW SYRINGE VERSION) IV PRN (11:00)
[2017-11-09] MEDS: Levofloxacin 500 MG IVPREMIX(* 500 MG/100 ML BAG IVPB SCH (12:10)
--- NOTE | 2017-11-09 13:33 | PN ---
Subjective Date of Service: 11/09/17 Interval History: HOSPITALIST PROGRESS NOTE Patient seen and examined at bedside. Care reviewed and d/w Neida Cantu RN. She feels she's improving slowly - "60% at this time". Comfortable at rest, dyspneic with exertion, but down to 5 liters of O2. No chest pain, palpitations , N/V/D. Family History: Unchanged from Admission Social History: Unchanged from Admission Past Medical History: Unchanged from Admission Objective Active Medications: Acetaminophen (Tylenol Tab*) 650 mg PO Q6H PRN PRN Reason: pain/fever Albuterol (Ventolin Hfa Inhaler*) 2 puff INH Q4H PRN PRN Reason: COUGH Albuterol/Ipratropium (Duoneb (Albuterol 2.5 Mg/Ipratropium 0.5 Mg)) 1 neb INH [id number] AWAKE [facility] Last Admin: 11/09/17 07:25 Dose: 1 neb Albuterol/Ipratropium (Duoneb (Albuterol 2.5 Mg/Ipratropium 0.5 Mg)) 1 neb INH Q4H PRN PRN Reason: SOB/WHEEZING Last Admin: 11/09/17 04:43 Dose: 1 neb Amlodipine Besylate (Norvasc Tab*) 5 mg PO DAILY [facility] Last Admin: 11/09/17 09:07 Dose: 5 mg Ascorbic Acid (Vitamin C Tab*) 1,000 mg PO DAILY [facility] Last Admin: 11/09/17 09:07 Dose: 1,000 mg Calcium/Vitamin D (Oscal D Tab 250/125*) 1 tab PO DAILY [facility] Last Admin: 11/09/17 09:07 Dose: 1 tab Docusate Sodium (Colace Cap*) 100 mg PO DAILY [facility] Last Admin: 11/09/17 09:07 Dose: 100 mg Furosemide (Lasix Tab*) 20 mg PO DAILY [facility] Last Admin: 11/09/17 09:07 Dose: 20 mg Guaifenesin (Mucinex*) 600 mg PO BID [facility] Last Admin: 11/09/17 09:07 Dose: 600 mg Heparin Sodium (Porcine) (Heparin Vial(*)) 5,000 units SUBCUT Q8HR [facility] Last Admin: 11/09/17 05:55 Dose: 5,000 units Levofloxacin/Dextrose (Levaquin 500 Mg Ivpremix(*)) 500 mg in 100 mls @ 100 mls /hr IVPB Q24H [facility] Last Admin: 11/09/17 12:10 Dose: 100 mls/hr Irbesartan (Avapro (Nf)) 300 mg PO DAILY [facility] Last Admin: 11/09/17 09:06 Dose: 300 mg Lorazepam (Ativan Tab(*)) 0.5 mg PO Q6H PRN PRN Reason: ANXIETY Last Admin: 11/08/17 01:34 Dose: 0.5 mg Methylprednisolone Sodium Succinate (Solu-Medrol 40 Mg) 40 mg IV Q8H [facility] Last Admin: 11/09/17 09:07 Dose: 40 mg Mometasone Furoate/Formoterol Fumar (Dulera 200/5 Mdi*) 2 puff INH BID [facility]; Protocol Last Admin: 11/09/17 07:25 Dose: 2 puff Morphine Sulfate (Morphine Inj (Syringe)*) 2 mg IV Q4H PRN PRN Reason: PAIN Multivitamins/Minerals (Theragran/Minerals Tab*) 1 tab PO DAILY [facility] Last Admin: 11/09/17 09:07 Dose: 1 tab Pregabalin (Lyrica Cap(*)) 50 mg PO BEDTIME [facility] Last Admin: 11/08/17 20:15 Dose: 50 mg Pregabalin (Lyrica Cap(*)) 25 mg PO QAM [facility] Last Admin: 11/09/17 09:07 Dose: 25 mg Prochlorperazine Edisylate (Compazine Inj*) 5 mg IV Q6H PRN PRN Reason: NAUSEA/VOMITING Senna (Senokot Tab*) 1 tab PO DAILY PRN PRN Reason: CONSTIPATION Simvastatin (Zocor(Nf)) 20 mg PO QPM [facility] Last Admin: 11/08/17 18:07 Dose: 20 mg Vital Signs - 8 hr 11/09/17 11/09/17 11/09/17 07:29 07:43 07:55 Temperature 97.5 F Pulse Rate 78 26 Respiratory 17 16 24 Rate Blood Pressure 140/60 (mmHg) O2 Sat by Pulse 93 94 Oximetry Oxygen Devices in Use Now: Nasal Cannula - 5 liters Appearance: Elderly lady lying in bed in NAD. Eyes: No Scleral Icterus Ears/Nose/Mouth/Throat: Mucous Membranes Moist Neck: Trachea Midline Respiratory: Symmetrical Chest Expansion and Respiratory Effort, - - BS+ bilaterally diminished Cardiovascular: RRR - Normal S1 and S2 Abdominal: NL Sounds; No Tenderness; No Distention Neurological: Alert and Oriented x 3, NL Muscle Strength and Tone Result Diagrams: 11/09/17 04:54 11/09/17 04:54 Assess/Plan/Problems-Billing Assessment: Mrs Coburn is a 77yo F with PMH of severe COPD, chronic hypoxemic respiratory failure on home O2 2 liters/min continuously, HTN, AAA, HLD, hyponatremia likely secondary to SIADH, peripheral neuropathy, colon CA s/p colectomy, osteoporosis, who presented to ED with dyspnea, found to have COPD exacerbation secondary to bronchitis. - Patient Problems (1) Acute and chronic respiratory failure with hypoxia Comment: - Patient on 2 liters of O2 at baseline, required Vapotherm in ICU, now down to 5 liters. - Continues to improve slowly. - Will titrate supplemental O2 down as tolerated. (2) COPD exacerbation Comment: - Secondary to bronchitis. - Continue Levofloxacin, steroids, bronchodilators/metanebs. - Pulmonary input appreciated - agrees with current management. (3) HTN (hypertension) Comment: - Better controlled now. - Continue ARB, Furosemide, and Amlodipine. (4) Hyperlipidemia Comment: - Continue atorvastatin. (5) Physical deconditioning Comment: - PT consult. (6) DVT prophylaxis Comment: - SQ heparin. (7) Full code status Comment: Status and Disposition: Inpatient.
[2017-11-09] MEDS: SIMVASTATIN 20 MG PO SCH (18:25)
[2017-11-09] MEDS: Pregabalin CAP(*) 50 MG PO SCH (22:06)
[2017-11-10] MEDS: Albuterol/Ipratropium NEB.SOL* Albuterol 2.5 MG/Ipratropium 0.5 MG 3 ML INH SCH ×4 (01:35→19:19)
[2017-11-10] MEDS: Heparin VIAL(*) 5000 UNITS/ML VIAL (FIVE THOUSAND) SUBCUT SCH ×3 (05:46→21:13)
[2017-11-10] MEDS: Mometasone/Formoter 200/5 MDI INH SCH ×2 (07:27→19:19)
[2017-11-10] MEDS: guaiFENesin ER TAB 600 MG PO SCH ×2 (08:38→21:13)
[2017-11-10] MEDS: Pregabalin CAP(*) 25 MG PO SCH (08:38)
[2017-11-10] MEDS: methylPREDNISolone SOD 40 MG* 1 ML VIAL IV SCH (08:38)
[2017-11-10] MEDS: Multivitamins/Minerals TAB PO SCH (08:38)
[2017-11-10] MEDS: amLODIPine TAB* 5 MG PO SCH (08:39)
[2017-11-10] MEDS: CMC:Irbesartan (NF) 150 MG TAB PO SCH (08:39)
[2017-11-10] MEDS: Calcium/Vitamin D TAB 250/125* TAB PO SCH (08:39)
[2017-11-10] MEDS: Ascorbic Acid TAB* 500 MG PO SCH (08:39)
[2017-11-10] MEDS: Furosemide TAB* 20 MG PO SCH (08:39)
[2017-11-10] MEDS: Docusate CAP* 100 MG PO SCH (08:39)
[2017-11-10] MEDS: Levofloxacin TAB* 500 MG PO SCH (11:33)
--- NOTE | 2017-11-10 14:54 | PN ---
Subjective Date of Service: 11/10/17 Interval History: HOSPITALIST PROGRESS NOTE Patient seen and examined at bedside. Care reviewed and d/w Hilary Pat RN. She feels she's improving little by little everyday. Still dyspneic with exertion, but comfortable at rest. Productive cough now with brown sputum. Able to sleep well last night. Denies N/V, appetite is excellent. Family History: Unchanged from Admission Social History: Unchanged from Admission Past Medical History: Unchanged from Admission Objective Active Medications: Acetaminophen (Tylenol Tab*) 650 mg PO Q6H PRN PRN Reason: pain/fever Albuterol (Ventolin Hfa Inhaler*) 2 puff INH Q4H PRN PRN Reason: COUGH Albuterol/Ipratropium (Duoneb (Albuterol 2.5 Mg/Ipratropium 0.5 Mg)) 1 neb INH [id number] AWAKE [facility] Last Admin: 11/10/17 13:55 Dose: 1 neb Albuterol/Ipratropium (Duoneb (Albuterol 2.5 Mg/Ipratropium 0.5 Mg)) 1 neb INH Q4H PRN PRN Reason: SOB/WHEEZING Last Admin: 11/09/17 04:43 Dose: 1 neb Amlodipine Besylate (Norvasc Tab*) 5 mg PO DAILY [facility] Last Admin: 11/10/17 08:39 Dose: 5 mg Ascorbic Acid (Vitamin C Tab*) 1,000 mg PO DAILY [facility] Last Admin: 11/10/17 08:39 Dose: 1,000 mg Calcium/Vitamin D (Oscal D Tab 250/125*) 1 tab PO DAILY [facility] Last Admin: 11/10/17 08:39 Dose: 1 tab Docusate Sodium (Colace Cap*) 100 mg PO DAILY [facility] Last Admin: 11/10/17 08:39 Dose: 100 mg Furosemide (Lasix Tab*) 20 mg PO DAILY [facility] Last Admin: 11/10/17 08:39 Dose: 20 mg Guaifenesin (Mucinex*) 600 mg PO BID [facility] Last Admin: 11/10/17 08:38 Dose: 600 mg Heparin Sodium (Porcine) (Heparin Vial(*)) 5,000 units SUBCUT Q8HR [facility] Last Admin: 11/10/17 13:23 Dose: 5,000 units Irbesartan (Avapro (Nf)) 300 mg PO DAILY [facility] Last Admin: 11/10/17 08:39 Dose: 300 mg Levofloxacin (Levaquin Tab*) 500 mg PO Q24H [facility] Last Admin: 11/10/17 11:33 Dose: 500 mg Lorazepam (Ativan Tab(*)) 0.5 mg PO Q6H PRN PRN Reason: ANXIETY Last Admin: 11/08/17 01:34 Dose: 0.5 mg Methylprednisolone Sodium Succinate (Solu-Medrol 40 Mg) 40 mg IV DAILY [facility] Mometasone Furoate/Formoterol Fumar (Dulera 200/5 Mdi*) 2 puff INH BID [facility]; Protocol Last Admin: 11/10/17 07:27 Dose: 2 puff Morphine Sulfate (Morphine Inj (Syringe)*) 2 mg IV Q4H PRN PRN Reason: PAIN Multivitamins/Minerals (Theragran/Minerals Tab*) 1 tab PO DAILY [facility] Last Admin: 11/10/17 08:38 Dose: 1 tab Pregabalin (Lyrica Cap(*)) 50 mg PO BEDTIME [facility] Last Admin: 11/09/17 22:06 Dose: 50 mg Pregabalin (Lyrica Cap(*)) 25 mg PO QAM [facility] Last Admin: 11/10/17 08:38 Dose: 25 mg Prochlorperazine Edisylate (Compazine Inj*) 5 mg IV Q6H PRN PRN Reason: NAUSEA/VOMITING Senna (Senokot Tab*) 1 tab PO DAILY PRN PRN Reason: CONSTIPATION Simvastatin (Zocor(Nf)) 20 mg PO QPM [facility] Last Admin: 11/09/17 18:25 Dose: 20 mg Vital Signs - 8 hr 11/10/17 11/10/17 11/10/17 07:15 07:30 08:38 Temperature 97.9 F Pulse Rate 76 71 Respiratory 20 69 20 Rate Blood Pressure 182/86 (mmHg) O2 Sat by Pulse 97 98 Oximetry 11/10/17 11/10/17 11/10/17 09:21 11:30 11:37 Temperature 98.0 F Pulse Rate 195 Respiratory 20 22 20 Rate Blood Pressure 130/46 (mmHg) O2 Sat by Pulse 94 Oximetry Oxygen Devices in Use Now: Nasal Cannula Appearance: Elderly lady sitting up in a chair in [employer]. Eyes: No Scleral Icterus Ears/Nose/Mouth/Throat: Mucous Membranes Moist Neck: Trachea Midline Respiratory: Symmetrical Chest Expansion and Respiratory Effort, - - BS+ bilaterally diminished Neurological: Alert and Oriented x 3, NL Muscle Strength and Tone Result Diagrams: 11/09/17 04:54 11/09/17 04:54 Assess/Plan/Problems-Billing Assessment: Mrs Coburn is a 77yo F with PMH of severe COPD, chronic hypoxemic respiratory failure on home O2 2 liters/min continuously, HTN, AAA, HLD, hyponatremia likely secondary to SIADH, peripheral neuropathy, colon CA s/p colectomy, osteoporosis, who presented to ED with dyspnea, found to have COPD exacerbation secondary to acute bronchitis. - Patient Problems (1) Acute and chronic respiratory failure with hypoxia Comment: - Patient on 2 liters of O2 at baseline, required Vapotherm in ICU, now down to 4 liters. - Continues to improve slowly. - Will titrate supplemental O2 down as tolerated. (2) COPD exacerbation Comment: - Secondary to acute bronchitis. - Continue Levofloxacin, steroids, bronchodilators/metanebs. - Pulmonary input appreciated - agrees with current management. (3) HTN (hypertension) Comment: - Spiked this AM, but better controlled now. - Continue ARB, Furosemide, and Amlodipine. (4) Hyperlipidemia Comment: - Continue atorvastatin. (5) Physical deconditioning Comment: - PT consult appreciated - continue in house PT. (6) DVT prophylaxis Comment: - SQ heparin. (7) Full code status Comment: Status and Disposition: Inpatient. Anticipate d/c in 1-2 days.
[2017-11-10] MEDS: SIMVASTATIN 20 MG PO SCH (17:19)
[2017-11-10] MEDS: Senna TAB PO PRN (21:13)
[2017-11-10] MEDS: Pregabalin CAP(*) 50 MG PO SCH (21:13)
[2017-11-11] MEDS: Albuterol/Ipratropium NEB.SOL* Albuterol 2.5 MG/Ipratropium 0.5 MG 3 ML INH SCH ×4 (01:31→21:11)
[2017-11-11] MEDS: Heparin VIAL(*) 5000 UNITS/ML VIAL (FIVE THOUSAND) SUBCUT SCH ×3 (06:05→21:27)
[2017-11-11] MEDS: Mometasone/Formoter 200/5 MDI INH SCH ×2 (07:26→21:11)
[2017-11-11] MEDS: Pregabalin CAP(*) 25 MG PO SCH (09:35)
[2017-11-11] MEDS: methylPREDNISolone SOD 40 MG* 1 ML VIAL IV SCH (09:35)
[2017-11-11] MEDS: Multivitamins/Minerals TAB PO SCH (09:35)
[2017-11-11] MEDS: Ascorbic Acid TAB* 500 MG PO SCH (09:35)
[2017-11-11] MEDS: guaiFENesin ER TAB 600 MG PO SCH ×2 (09:35→21:28)
[2017-11-11] MEDS: Docusate CAP* 100 MG PO SCH (09:35)
[2017-11-11] MEDS: Calcium/Vitamin D TAB 250/125* TAB PO SCH (09:35)
[2017-11-11] MEDS: CMC:Irbesartan (NF) 150 MG TAB PO SCH (09:35)
[2017-11-11] MEDS: Levofloxacin TAB* 500 MG PO SCH (11:43)
[2017-11-11] MEDS: SIMVASTATIN 20 MG PO SCH (16:32)
--- NOTE | 2017-11-11 16:54 | PN ---
Subjective Date of Service: 11/11/17 Interval History: HOSPITALIST PROGRESS NOTE Patient seen and examined at bedside. Care reviewed and d/w Hilary Pat RN. She had an episode for hypotension with SBP in the 60s while on the bedside commode, improved when returned to bed. By the time of my evaluation, she was feeling better, but "whipped out". Breathing is easier, getting closer to her baseline. Family History: Unchanged from Admission Social History: Unchanged from Admission Past Medical History: Unchanged from Admission Objective Active Medications: Acetaminophen (Tylenol Tab*) 650 mg PO Q6H PRN PRN Reason: pain/fever Albuterol (Ventolin Hfa Inhaler*) 2 puff INH Q4H PRN PRN Reason: COUGH Albuterol/Ipratropium (Duoneb (Albuterol 2.5 Mg/Ipratropium 0.5 Mg)) 1 neb INH [id number] AWAKE [facility] Last Admin: 11/11/17 14:07 Dose: 1 neb Albuterol/Ipratropium (Duoneb (Albuterol 2.5 Mg/Ipratropium 0.5 Mg)) 1 neb INH Q4H PRN PRN Reason: SOB/WHEEZING Last Admin: 11/09/17 04:43 Dose: 1 neb Ascorbic Acid (Vitamin C Tab*) 1,000 mg PO DAILY [facility] Last Admin: 11/11/17 09:35 Dose: 1,000 mg Calcium/Vitamin D (Oscal D Tab 250/125*) 1 tab PO DAILY [facility] Last Admin: 11/11/17 09:35 Dose: 1 tab Docusate Sodium (Colace Cap*) 100 mg PO DAILY [facility] Last Admin: 11/11/17 09:35 Dose: 100 mg Guaifenesin (Mucinex*) 600 mg PO BID [facility] Last Admin: 11/11/17 09:35 Dose: 600 mg Heparin Sodium (Porcine) (Heparin Vial(*)) 5,000 units SUBCUT Q8HR [facility] Last Admin: 11/11/17 13:48 Dose: 5,000 units Irbesartan (Avapro (Nf)) 300 mg PO DAILY [facility] Last Admin: 11/11/17 09:35 Dose: 300 mg Levofloxacin (Levaquin Tab*) 500 mg PO Q24H [facility] Last Admin: 11/11/17 11:43 Dose: 500 mg Lorazepam (Ativan Tab(*)) 0.5 mg PO Q6H PRN PRN Reason: ANXIETY Last Admin: 11/08/17 01:34 Dose: 0.5 mg Methylprednisolone Sodium Succinate (Solu-Medrol 40 Mg) 40 mg IV DAILY [facility] Last Admin: 11/11/17 09:35 Dose: 40 mg Mometasone Furoate/Formoterol Fumar (Dulera 200/5 Mdi*) 2 puff INH BID [facility]; Protocol Last Admin: 11/11/17 07:26 Dose: 2 puff Morphine Sulfate (Morphine Inj (Syringe)*) 2 mg IV Q4H PRN PRN Reason: PAIN Multivitamins/Minerals (Theragran/Minerals Tab*) 1 tab PO DAILY [facility] Last Admin: 11/11/17 09:35 Dose: 1 tab Pregabalin (Lyrica Cap(*)) 50 mg PO BEDTIME [facility] Last Admin: 11/10/17 21:13 Dose: 50 mg Pregabalin (Lyrica Cap(*)) 25 mg PO QAM [facility] Last Admin: 11/11/17 09:35 Dose: 25 mg Prochlorperazine Edisylate (Compazine Inj*) 5 mg IV Q6H PRN PRN Reason: NAUSEA/VOMITING Senna (Senokot Tab*) 1 tab PO DAILY PRN PRN Reason: CONSTIPATION Last Admin: 11/10/17 21:13 Dose: 1 tab Simvastatin (Zocor(Nf)) 20 mg PO QPM [facility] Last Admin: 11/11/17 16:32 Dose: 20 mg Vital Signs - 8 hr 11/11/17 11/11/17 11/11/17 09:35 11:17 12:28 Temperature 98.0 F Pulse Rate 76 Respiratory 18 16 16 Rate Blood Pressure 121/65 (mmHg) O2 Sat by Pulse 100 Oximetry 11/11/17 11/11/17 14:05 15:18 Temperature 98.4 F Pulse Rate 88 92 Respiratory 16 20 Rate Blood Pressure 116/70 (mmHg) O2 Sat by Pulse 98 96 Oximetry Oxygen Devices in Use Now: Nasal Cannula - 4 liters Appearance: Pleasant elderly lady lying in bed in NAD. Eyes: No Scleral Icterus Ears/Nose/Mouth/Throat: Mucous Membranes Moist Neck: Trachea Midline Respiratory: Symmetrical Chest Expansion and Respiratory Effort, - - BS+ bilaterally diminished Cardiovascular: RRR - Normal S1 and S2 Abdominal: NL Sounds; No Tenderness; No Distention Neurological: Alert and Oriented x 3, NL Muscle Strength and Tone Result Diagrams: 11/09/17 04:54 11/09/17 04:54 Assess/Plan/Problems-Billing Assessment: Mrs Coburn is a 77yo F with PMH of severe COPD, chronic hypoxemic respiratory failure on home O2 2 liters/min continuously, HTN, AAA, HLD, hyponatremia likely secondary to SIADH, peripheral neuropathy, colon CA s/p colectomy, osteoporosis, who presented to ED with dyspnea, found to have COPD exacerbation secondary to acute bronchitis. - Patient Problems (1) Acute and chronic respiratory failure with hypoxia Comment: - Patient on 2 liters of O2 at baseline, required Vapotherm in ICU, now down to 4 liters. - Continues to improve slowly. - Will titrate supplemental O2 down as tolerated. (2) COPD exacerbation Comment: - Secondary to acute bronchitis. - Continue Levofloxacin, steroids, bronchodilators/metanebs. - Pulmonary input appreciated - agrees with current management. (3) HTN (hypertension) Comment: - BP was uncontrolled and Amlodipine was added to her regimen, but she was hypotensive this AM, so will discontinue it. - Continue ARB with holding parameters. - Hold Furosemide today. (4) Hyperlipidemia Comment: - Continue atorvastatin. (5) Physical deconditioning Comment: - PT consult appreciated - continue in house PT. (6) DVT prophylaxis Comment: - SQ heparin. (7) Full code status Comment: Status and Disposition: Inpatient. Anticipate d/c in 1-2 days.
[2017-11-11] MEDS: Pregabalin CAP(*) 50 MG PO SCH (21:27)
[2017-11-11] MEDS: Senna TAB PO PRN (21:28)
[2017-11-12] MEDS: Albuterol/Ipratropium NEB.SOL* Albuterol 2.5 MG/Ipratropium 0.5 MG 3 ML INH SCH ×2 (01:21→07:06)
[2017-11-12] MEDS: Heparin VIAL(*) 5000 UNITS/ML VIAL (FIVE THOUSAND) SUBCUT SCH ×3 (06:02→22:04)
[2017-11-12 07:51] LABS: EGFR Non-African American 48.7 (>60)
[2017-11-12] MEDS: CMC:Irbesartan (NF) 150 MG TAB PO SCH (08:26)
[2017-11-12] MEDS: methylPREDNISolone SOD 40 MG* 1 ML VIAL IV SCH (08:26)
[2017-11-12] MEDS: Ascorbic Acid TAB* 500 MG PO SCH (08:27)
[2017-11-12] MEDS: Calcium/Vitamin D TAB 250/125* TAB PO SCH (08:27)
[2017-11-12] MEDS: Multivitamins/Minerals TAB PO SCH (08:27)
[2017-11-12] MEDS: guaiFENesin ER TAB 600 MG PO SCH ×2 (08:27→22:04)
[2017-11-12] MEDS: Docusate CAP* 100 MG PO SCH (08:27)
[2017-11-12] MEDS: Pregabalin CAP(*) 25 MG PO SCH (08:28)
[2017-11-12] MEDS: Mometasone/Formoter 200/5 MDI INH SCH ×2 (08:33→20:15)
[2017-11-12] MEDS: Levofloxacin TAB* 500 MG PO SCH (12:12)
--- NOTE | 2017-11-12 13:11 | PN ---
Subjective Date of Service: 11/12/17 Interval History: HOSPITALIST PROGRESS NOTE Patient seen and examined at bedside. Care reviewed and d/w Hilary Pat RN. Her breathing is unchanged. She continues to c/o weakness. "That episode yesterday took a lot out of me". Family History: Unchanged from Admission Social History: Unchanged from Admission Past Medical History: Unchanged from Admission Objective Active Medications: Acetaminophen (Tylenol Tab*) 650 mg PO Q6H PRN PRN Reason: pain/fever Albuterol (Ventolin Hfa Inhaler*) 2 puff INH Q4H PRN PRN Reason: COUGH Albuterol/Ipratropium (Duoneb (Albuterol 2.5 Mg/Ipratropium 0.5 Mg)) 1 neb INH Q4H PRN PRN Reason: SOB/WHEEZING Last Admin: 11/09/17 04:43 Dose: 1 neb Ascorbic Acid (Vitamin C Tab*) 1,000 mg PO DAILY [facility] Last Admin: 11/12/17 08:27 Dose: 1,000 mg Calcium/Vitamin D (Oscal D Tab 250/125*) 1 tab PO DAILY [facility] Last Admin: 11/12/17 08:27 Dose: 1 tab Docusate Sodium (Colace Cap*) 100 mg PO DAILY [facility] Last Admin: 11/12/17 08:27 Dose: 100 mg Guaifenesin (Mucinex*) 600 mg PO BID [facility] Last Admin: 11/12/17 08:27 Dose: 600 mg Heparin Sodium (Porcine) (Heparin Vial(*)) 5,000 units SUBCUT Q8HR [facility] Last Admin: 11/12/17 12:56 Dose: 5,000 units Irbesartan (Avapro (Nf)) 300 mg PO DAILY [facility] Last Admin: 11/12/17 08:26 Dose: 300 mg Levofloxacin (Levaquin Tab*) 500 mg PO Q24H [facility] Last Admin: 11/12/17 12:12 Dose: 500 mg Lorazepam (Ativan Tab(*)) 0.5 mg PO Q6H PRN PRN Reason: ANXIETY Last Admin: 11/08/17 01:34 Dose: 0.5 mg Methylprednisolone Sodium Succinate (Solu-Medrol 40 Mg) 40 mg IV DAILY [facility] Last Admin: 11/12/17 08:26 Dose: 40 mg Mometasone Furoate/Formoterol Fumar (Dulera 200/5 Mdi*) 2 puff INH BID [facility]; Protocol Last Admin: 11/12/17 08:33 Dose: 2 puff Morphine Sulfate (Morphine Inj (Syringe)*) 2 mg IV Q4H PRN PRN Reason: PAIN Multivitamins/Minerals (Theragran/Minerals Tab*) 1 tab PO DAILY [facility] Last Admin: 11/12/17 08:27 Dose: 1 tab Pregabalin (Lyrica Cap(*)) 50 mg PO BEDTIME [facility] Last Admin: 11/11/17 21:27 Dose: 50 mg Pregabalin (Lyrica Cap(*)) 25 mg PO QAM [facility] Last Admin: 11/12/17 08:28 Dose: 25 mg Prochlorperazine Edisylate (Compazine Inj*) 5 mg IV Q6H PRN PRN Reason: NAUSEA/VOMITING Senna (Senokot Tab*) 1 tab PO DAILY PRN PRN Reason: CONSTIPATION Last Admin: 11/11/17 21:28 Dose: 1 tab Simvastatin (Zocor(Nf)) 20 mg PO QPM [facility] Last Admin: 11/11/17 16:32 Dose: 20 mg Vital Signs - 8 hr 11/12/17 11/12/17 11/12/17 07:23 07:52 08:28 Temperature 97.6 F Pulse Rate 66 Respiratory 16 20 16 Rate Blood Pressure 135/65 (mmHg) O2 Sat by Pulse 96 Oximetry 11/12/17 11/12/17 11/12/17 08:35 11:17 11:28 Temperature 98.1 F Pulse Rate 68 80 Respiratory 16 18 20 Rate Blood Pressure 107/61 (mmHg) O2 Sat by Pulse 96 92 Oximetry Oxygen Devices in Use Now: Nasal Cannula Appearance: Pleasant elderly lady sitting up in a recliner in NAD. Eyes: No Scleral Icterus Ears/Nose/Mouth/Throat: Mucous Membranes Moist Neck: Trachea Midline Respiratory: Symmetrical Chest Expansion and Respiratory Effort, - - BS+ bilaterally diminished, no added sounds Cardiovascular: RRR - Normal S1 and s2 Neurological: Alert and Oriented x 3, NL Muscle Strength and Tone Result Diagrams: 11/09/17 04:54 11/12/17 06:46 Assess/Plan/Problems-Billing Assessment: Mrs Coburn is a 77yo F with PMH of severe COPD, chronic hypoxemic respiratory failure on home O2 2 liters/min continuously, HTN, AAA, HLD, hyponatremia likely secondary to SIADH, peripheral neuropathy, colon CA s/p colectomy, osteoporosis, who presented to ED with dyspnea, found to have COPD exacerbation secondary to acute bronchitis. - Patient Problems (1) Acute and chronic respiratory failure with hypoxia Comment: - Patient back on her 2 liters of O2. (2) COPD exacerbation Comment: - Secondary to acute bronchitis. - Continue Levofloxacin, steroids, bronchodilators/metanebs. - Pulmonary input appreciated - agrees with current management. (3) HTN (hypertension) Comment: - BP was uncontrolled and Amlodipine was added to her regimen, but she was hypotensive 11/11/17. - Continue ARB with holding parameters. - Furosemide also on hold. (4) Hyperlipidemia Comment: - Continue atorvastatin. (5) Physical deconditioning Comment: - PT consult appreciated - continue in house PT. - As patient still feels weak, we discussed possibility of [facility]KE - CM aware. (6) DVT prophylaxis Comment: - SQ heparin. (7) Full code status Comment: Status and Disposition: Inpatient. Anticipate d/c in AM - home vs JAKE.
[2017-11-12] MEDS: SIMVASTATIN 20 MG PO SCH (16:49)
[2017-11-12] MEDS: Albuterol/Ipratropium NEB.SOL* Albuterol 2.5 MG/Ipratropium 0.5 MG 3 ML INH PRN (20:15)
[2017-11-12] MEDS: Pregabalin CAP(*) 50 MG PO SCH (22:04)
[2017-11-13] MEDS: Heparin VIAL(*) 5000 UNITS/ML VIAL (FIVE THOUSAND) SUBCUT SCH (05:03)
[2017-11-13 07:57] VITALS: BP 142/71
[2017-11-13] MEDS: CMC:Irbesartan (NF) 150 MG TAB PO SCH (08:01)
[2017-11-13] MEDS: Multivitamins/Minerals TAB PO SCH (08:01)
[2017-11-13] MEDS: Ascorbic Acid TAB* 500 MG PO SCH (08:01)
[2017-11-13] MEDS: Docusate CAP* 100 MG PO SCH (08:01)
[2017-11-13] MEDS: Pregabalin CAP(*) 25 MG PO SCH (08:01)
[2017-11-13] MEDS: guaiFENesin ER TAB 600 MG PO SCH (08:01)
[2017-11-13] MEDS: Calcium/Vitamin D TAB 250/125* TAB PO SCH (08:01)
[2017-11-13] MEDS ORDERED: predniSONE TAB* 20 MG PO SCH (09:00)
[2017-11-13] MEDS: Mometasone/Formoter 200/5 MDI INH SCH (09:04)
--- NOTE | 2017-11-14 02:42 | DS ---
CC: Echo Rivero NP; Dr. Chester * DISCHARGE SUMMARY: DATE OF ADMISSION: 11/06/17 DATE OF DISCHARGE: 11/13/17 PRIMARY CARE PHYSICIAN: Echo Rivero NP PRINCIPAL DISCHARGE DIAGNOSES: 1. Chronic obstructive pulmonary disease exacerbation. 2. Acute on chronic hypoxic respiratory failure. SECONDARY DISCHARGE DIAGNOSES: 1. Hypertension. 2. Hyperlipidemia. 3. Colon cancer status post resection. 4. Osteoporosis. 5. Morbid obesity. 6. History of hyponatremia. DISCHARGE MEDICATIONS: 1. Colace 100 mg daily. 2. Symbicort 160/4.5 two puffs inhaled b.i.d. 3. Lyrica 25 mg daily. 4. Albuterol HFA 2 puffs q.4 hours p.r.n. wheezing. 5. Lyrica 50 mg q.h.s. 6. Multivitamin daily. 7. Vitamin E cap 400 units daily. 8. Simvastatin 20 mg daily. 9. Irbesartan 300 mg daily. 10. DuoNeb solution q.i.d. p.r.n. wheezing. 11. Calcium and vitamin D tab daily. 12. Senna daily. 13. Lorazepam 0.5 mg q.6 hours p.r.n. anxiety. 14. Lasix 20 mg daily. 15. Prednisone 40 mg for 3 more days and then 20 mg for 3 more days. PHYSICAL EXAM: Temperature 97.5, heart rate 60, respiratory rate 16, pulse ox 98% on 2 L, blood pressure 142/71. General: Alert and well-appearing female in no distress. She is breathing comfortably and is able to speak in full sentences with no accessory respiratory muscles. HEENT: Pupils equal, round, and reactive to light. No nystagmus. Oral mucosa is moist. Neck: No JVP. No cervical or supraclavicular adenopathy. Chest: Regular rate and rhythm. No murmurs. Lungs are clear. No wheezes or crackles are heard. Abdomen: Soft , obese, nontender. Extremities: No edema. Pulses 2+ throughout. HOSPITAL COURSE BY PROBLEM: 1. Acute on chronic hypoxic respiratory failure secondary to a COPD exacerbation. She was admitted to the ICU on admission because she required Vapotherm and also for work of breathing. She was started on IV steroids and [id number] nebulizers as well as antibiotics despite lack of pneumonia radiographically. Dr. Chester was consulted who agreed with steroids, nebulizers , and antibiotics. A D- dimer was obtained in the emergency department which was mildly elevated. A V/Q scan subsequently showed intermediate risk but given her clinical scenario, this finding was thought to be not practice representative of a true PE. She improved on steroids and oxygen, was able to be weaned down to her home requirement of 2 L. She completed a 7-day course of p.o. antibiotics. She will be continued on a steroid taper at the time of discharge. She was evaluated by Physical Therapy prior to discharge who recommended that she was at her ambulatory baseline and we have no further skilled physical therapy services. 2. Hypertension. At one point during her admission, her blood pressure was uncontrolled and amlodipine was added; however, she became hypotensive on that. The temporary poorly controlled hypertension was thought to be secondary to steroids and is improving at the time of discharge as the steroids are tapering. She is being discharged only on her usual dose of valsartan. 3. Hyperlipidemia. She was continued on simvastatin. 4. Anxiety. She was continued on lorazepam as needed. 5. Disposition. Ms. Coburn is being discharged to home. She has been ambulating in her room and in the hallway without desaturation and with good functional capacity. She will follow up with Echo Rivero and Dr. Chester at the time of discharge. She was encouraged to come back to the emergency department should she develop worsening shortness of breath, cough, fevers, or chest pain. TIME SPENT: Sixty minutes was spent on this discharge summary. [id number] #: [id number] MTDD
== END 2017-11-13 12:10 | disposition home health service (06) | DRG 189 ==
LOC: ED 07:45 → ICU 11:42 → MEDTELE 11-08 17:34
PROVIDERS: ADMIT Internal Medicine; ATTEND Internal Medicine
DX: J96.21 Acute and chronic respiratory failure with hypoxia (principal); J44.1 Chronic obstructive pulmonary disease with (acute) exacerbation; J44.0 Chronic obstructive pulmonary disease with (acute) lower respiratory infection; I10 Essential (primary) hypertension; I71.4 Abdominal aortic aneurysm, without rupture; M81.0 Age-related osteoporosis without current pathological fracture; M19.90 Unspecified osteoarthritis, unspecified site; Z96.652 Presence of left artificial knee joint; E78.5 Hyperlipidemia, unspecified; G62.9 Polyneuropathy, unspecified; E66.01 Morbid (severe) obesity due to excess calories; J20.9 Acute bronchitis, unspecified; H26.9 Unspecified cataract; Z96.642 Presence of left artificial hip joint; J44.9 Chronic obstructive pulmonary disease, unspecified; Z91.041 Radiographic dye allergy status; Z88.5 Allergy status to narcotic agent; Z88.0 Allergy status to penicillin; Z88.8 Allergy status to other drugs, medicaments and biological substances; Z91.018 Allergy to other foods; Z85.038 Personal history of other malignant neoplasm of large intestine; Z92.21 Personal history of antineoplastic chemotherapy; Z90.49 Acquired absence of other specified parts of digestive tract; Z82.49 Family history of ischemic heart disease and other diseases of the circulatory system; Z82.5 Family history of asthma and other chronic lower respiratory diseases; Z87.891 Personal history of nicotine dependence; Z72.89 Other problems related to lifestyle; Z99.81 Dependence on supplemental oxygen; Z68.35 Body mass index [BMI] 35.0-35.9, adult; Z80.0 Family history of malignant neoplasm of digestive organs
CPT/HCPCS: 36415; 71045; 78580; 80048; 80053; 81003; 83605; 83735; 84484; 85025; 85379; 87040; 87641; 93005; 93970; 94640; 94667; 94668; 99285; A9270-GY; A9540; G8978-GP-CK; G8979-GP-CI; J0696; J1644; J1956; J2270; J2920; J2930; J7512

== ENCOUNTER 2018-03-18 02:08 | Inpatient (IN) | payer MEDICARE, BC ==
[2018-03-18] MEDS ORDERED: Albuterol/Ipratropium NEB.SOL* Albuterol 2.5 MG/Ipratropium 0.5 MG 3 ML INH ONE (02:26)
[2018-03-18] MEDS ORDERED: Magnesium Sulfate 2 GM IV* 2 GM/50 ML BAG IVPB ONE (02:26)
[2018-03-18] MEDS ORDERED: methylPREDNISolone 125 MG* 2 ML VIAL IV ONE (02:26)
--- OUTSIDE RECORDS SUMMARY | 2018-03-18 02:30 | XMS REPORT | Continuity of Care Document ---
:1940 External Reference #:[id number] Author Name [facility] Care Team Providers Name Role Phone Angie Zimmer MD Primary Care Physician Unavailable Payers Type Date Identification Numbers Payment Provider Subscriber Policy Number: [id number] Medicare Francisca Coburn PayID: [id number] [address] [place] [address] Effective: 2005 Policy Number: [id number] Medicare Francisca Coburn Expires: 2018 PayID: [id number] [address] [place] [address] Effective: 2011 Policy Number: [id number] [facility] Francisca Coburn PayID: [id number] [address] [address] [place] Schulz [address] Advance Directives Description No Information Available Problems Date Description Provider Status Onset: 02/08/2011 [...] neoplasm of Alexi Kim M.D. Active colon Onset: 11/06/2017 Acute and chronic respiratory failure Wanda Montaño M.D. Active with hypoxia Onset: 11/06/2017 Chronic obstructive pulmonary disease Wanda Montaño M.D. Active with (acute) exacerbation Onset: 11/07/2017 Chronic obstructive pulmonary disease Wanda Montaño M.D. Active with acute lower respiratory infection Onset: 11/12/2017 Hyperlipidemia Wanda Montaño M.D. Active Onset: 11/13/2017 Anxiety state Keyonna Castillo DO Active Onset: 02/01/2018 Prosthetic arthroplasty of the hip Amanda Lay M.D. Active Onset: 02/01/2018 Gluteal tendinitis Amanda Lay M.D. 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 Cigarette Use Quit - Age 64 ETOH Use Rarely consumes alcohol Tobacco Use Start: Unknown End: Patient is a former Unknown smoker Recreational Drug Use Denies Drug Use Smoking Status Reviewed: 03/08/18 Patient is a former smoker Exercise Type/Frequency Exercises regularly twice a week workout routine, PT Allergies, Adverse Reactions, Alerts Date Description Reaction Status Severity Comments 01/22/2007 PCN Active 01/22/2007 Codeine Active 01/22/2007 statins Active muscles aches 02/12/2014 Iodinated Diagnostic Active Agents 08/31/2017 Pineapple Allergenic Active pineapple, tongue Extract swells Medications Medication Date Status Form Strength Qnty SIG Indications Ordering Provider Irbesartan 03/08/ Active Tablets 150mg 90tabs 1 by mouth Echo 2018 every day Varn, N.P. Ventolin HFA 11/16/ Active Aerosol 108(90Base 24gm 2 puffs 4 J44.1 2017 ) mcg/Act times a Cotton, day as M.D. needed Furosemide 10/14/ Active Tablets 20mg 90tabs take one Angie 2018 tablet by Cotton, mouth M.D. every day Nebulizer 07/13/ Active Device 1units use three Echo 2018 times a Varn, N.P. day as needed Nebulizer 07/13/ Active Kit 1units use three Echo Kit/Tubing/Mout 2018 times a Varn, N.P. hpiece day as needed Ipratropium 07/13/ Active Solution 0.5-2.5(3) 540ml 1 vial in [place]/Albuter 2018 mg/3ML nebulizer Varn, N.P. ol Sulfate three times a day as needed for asthma Multivitamins 02/06/ Active Capsules 1 by mouth Unknown 2015 every day Symbicort 03/31/ Active Aerosol 160-4.5mcg 30.6un Inhale Two J44.9 Sabrina 2014 /Act its Puffs By MD Nemo Mouth Twice A Day Oxygen 09/28/ Active Misc 1units please use R09.02 Sabrina 2014 o2 at 4 MD Nemo litres/min during exertion Lyrica 04/10/ Active Capsules 25mg 60caps 25 mg in Echo 2014 the Varn, N.P. morning, and 50 mg at night Prolia 08/26/ Active Solution 60mg/ml 60mg 60 mg sc M81.0 Echo 2014 q6mon Varn, N.P. Z92.29 Clindamycin HCL 05/09/2013 Active Capsules 300mg 2caps 2 tabs one Dirk hour prior to Tomas, dental work M.D. Vitamin B 01/10/2013 Active Capsules 1 po qd Unknown Complex Simvastatin 01/20/2011 Active Tablets 20mg 90tabs take one Angie tablet by Cotton, mouth every M.D. evening Vitamin E Active [...] Chewtabs 500-400 1 po qd Unknown mg-Unit Claritin Active Capsules 10mg 1 by mouth Unknown every dayprn Advil Active 400 mg po prn Unknown Azithromycin 02/25/2018 - Hx Tablets 250mg 6tabs two tabs day [address] 03/07/2018 one, one 4. Varn, N.P. daily till 1 gone Prednisone 02/25/2018 - Hx Tablets 20mg 9tabs 2 tab by [address] 03/03/2018 mouth for 3 4. Varn, N.P. days and then 1 1 tablet by mouth for 3 days and then stop Anoro Ellipta 02/20/2018 - Hx Aerosol 62.5-25 60units 1 inhalation Sabrina 03/08/2018 mcg/Inh daily MD Nemo Azithromycin 01/01/2018 - Hx Tablets 250mg 6tabs two tabs day [address] 01/11/2018 one, one 4. Varn, N.P. daily till 1 gone Prednisone 01/01/2018 - Hx Tablets 20mg 9tabs 2 tab by [address] 01/13/2018 mouth for 3 4. Varn, N.P. days and then 1 1 tablet by mouth for 3 days and then stop Prednisone 11/13/2017 - Hx Tablets 20mg 9tabs 2 tab by [address] 11/25/2017 mouth for 3 4. Cotton, days and then 1 M.D. 1 tablet by mouth for 3 days and then stop Prednisone 11/02/2017 - Hx Tablets 10mg 40tabs 4 tablets by [address] 11/13/2017 mouth for 4 4. Varn, N.P. days 3 1 tablets by mouth for 4 days 2 tablets by mouth for 4 days 1 tablet by mouth for 4 days Azithromycin 11/02/2017 - Hx Tablets 250mg 6tabs two tabs day [address] 11/12/2017 one, one 4. Varn, N.P. daily till 1 gone Irbesartan 08/22/2017 - Hx Tablets 300mg 90tabs 1/2 by mouth [facility] 03/08/2018 every day Yolande Zimmer Proair HFA 08/14/2017 - Hx Aerosol 108(90B 25.5gm 1 puff every J4 Sabrina 11/16/2017 ase) 6 hours as 4. MD Nemo mcg/Act needed 1 Irbesartan 08/13/2017 - Hx Tablets 150mg 30tabs [...] tablet M5 Sundar 05/22/2017 every six 4. Marlena [employer] hours as 5 needed for pain. Salsalate 05/16/2017 - Hx Tablets 500mg 30tabs one tablet M5 Sundar 06/24/2017 twice daily 4. Marlena, [employer]ERK as needed 5 with food Hydrocodone-Christian 05/16/2017 - Hx Tablets 5-325mg 30tabs take 1 tablet M5 Sundar taminophen 06/24/2017 every 8 hours 4. Marlena [employer] for pain. 5 Zostavax 08/29/2016 - Hx Suspension [id number] I1 Alexi Escalera 05/16/2017 Rec t/0.65M 0 Elliot Kim M.D. Silver 02/07/2016 - Hx Tablets 1 po qd Unknown 02/07/2016 Acetaminophen 02/07/2016 - Hx Capsules 500mg 2 by mouth Unknown 06/24/2017 twice a day as needed Fentanyl 03/25/2014 - Hx Patches 72HR 25mcg/H 5units apply one Alexi Escalera 08/27/2014 R patch once Judy, every 3 days M.Terence [place] 03/13/2014 - Hx Tablets 5-325mg 30tabs 1-2 by mouth Dirk 04/10/2014 every 4 to 6 Tomas, hours as M.D. needed Macrobid 02/16/2014 - Hx Capsules 100mg 10caps 1 tab q12hr x Dirk 08/27/2014 5 days Yolande Marin [place] 02/14/2014 - Hx Tablets 5-325mg 100tabs 1 by mouth Dirk 08/27/2014 every 6 Tomas, hours as M.D. needed for pain try to use less and less as soon as possible Ventolin HFA 02/04/2014 - Hx Aerosol 108(90B 1units 2 puffs by Thuan 02/07/2016 ase) mouth four Flowers, [employer] mcg/Act times a day as needed Proair [...] two Thuan 03/31/2015 cg/Act puffs into Flowers, [employer]ERK lungs twice a day Zithromax Z-Arnoldo 06/22/2009 [...] - Hx Solution ?mg Every other Alexi Escalera Calcium 01/18/2011 week Yolande Kim Albuterol 07/29/2008 [...] Silver - Hx Tablets 1 PO qd Frannie, 07/29/2008 MD Rangel Proair HFA - Hx Aerosol 90mcg/A 1units 2 puffs po Alexi Escalera (Albuterol) 07/29/2008 ct qidprn Yolande Kim Aspirin - Hx Tablets 81mg 100tabs 1 PO qd Frannieiglbert, 07/29/2008 MD Rangel Vitamin B - Hx [...] 1 by mouth Echo 10/14/2017 every day Varlucio, N.P. Acetaminophen - Hx Tablets 500mg 2 tablets q 6 Unknown 08/30/2017 hrs as needed.for pain Lidoderm - Hx Patches 5% 1 patch q 12 Unknown 08/13/2017 hrs Miralax - Hx Powder [id number] 17 gm every Unknown 08/13/2017 day mixed w/ 8 oz water/juice as needed Tramadol HCL - Hx Tablets 50mg 1 tablet Unknown 08/13/2017 three to four times daily as needed Albuterol - Hx Nebulizer (5mg/ML 2 puffs every Unknown Sulfate 03/08/2018 ) 0.5% 12 hours Medications Administered in Office Medication Date Status Form Strength Qnty SIG Indications Ordering Provider Prolia Administered Injection Nurse Visit Injection, 018 A Denosumab, 1MG Prolia Administered Injection Nurse Visit Injection, 017 [...] CPT Code Status Date Vaccine Lot # [id number] Given 01/18/2018 Influenza Virus Vaccine, Quadrivalent, Split, Preservative Free 44572 Given 01/18/2018 Influenza Virus Vaccine, Quadrivalent, Split, Preservative Free 94243 Given 12/27/2015 Influenza Virus Vaccine, Quadrivalent, Split, Preservative Free 11704 Given 01/28/2015 Influenza Virus 3Yrs & Over 19726 Given 02/04/2014 Flu Vaccine Split Virus Preservative Free For [id number] Indiv 3Yr Older 17829 Given 08/25/2013 Pneumococcal Conjugate Vaccine 13 Valent For [id number] Intramuscular Use [id number] Given 01/18/2011 Fluzone Vaccine [id number] 70818 Given 02/04/2010 Influenza Virus 3Yrs & Over [id number] 90542 Given 04/21/2009 Influenza Virus Vaccine, Pandemic Formulation 40348 Given 01/29/2008 Influenza Virus 3Yrs & Over 40377 Given 01/29/2008 Influenza Virus 3Yrs & Over 86424 Given 07/24/2007 Pneumonia Vaccine [id number] 39138 Given 07/24/2007 Tetanus And Diptheria (Td) For Adult Use Preservative Free 67121 Given 07/24/2007 Tetanus And Diptheria (Td) For Adult Use Preservative Free 82722 Given 01/22/2007 Influenza Virus 3Yrs & Over 66607 Given 01/22/2007 Influenza Virus 3Yrs & Over 86006 Vital Signs Date Vital Result Comment 03/08/2018 2:21pm Height 63.5 inches 5'3.50" Weight 201.00 lb Heart Rate 77 /min BP Systolic 122 mmHg BP Diastolic 70 mmHg Body Temperature 97.1 F O2 % BldC Oximetry 96 % with 4 liters of oxygen. BMI (Body Mass Index) 35.0 kg/m2 02/25/2018 1:42pm Height 63.75 inches 5'3.75" Heart Rate 84 /min BP Systolic 106 mmHg BP Diastolic 64 mmHg Body Temperature 98.5 F O2 % BldC Oximetry 96 % 0n 4LNC 02/12/2018 1:47pm Height 63.75 inches 5'3.75" Weight 209.00 lb Heart Rate 88 /min BP Systolic Sitting 102 mmHg BP Diastolic Sitting 62 mmHg Respiratory Rate 14 /min O2 % BldC Oximetry 95 % on 4L BMI (Body Mass Index) 36.2 kg/m2 02/01/2018 2:40pm Height 63.75 inches 5'3.75" Weight 205.00 lb BP Systolic 152 mmHg BP Diastolic 96 mmHg Respiratory Rate 20 /min Body Temperature 98.0 F Pain Level 3 BMI (Body Mass Index) 35.5 kg/m2 01/01/2018 1:15pm Height 63.75 inches 5'3.75" Weight 201.00 lb Heart Rate 79 /min BP Systolic 128 mmHg BP Diastolic 62 mmHg Body Temperature 97.5 F O2 % BldC Oximetry 96 % on 4LNC BMI (Body Mass Index) 34.8 kg/m2 11/16/2017 2:02pm Height 63.75 inches 5'3.75" Weight 200.00 lb Heart Rate 95 /min BP Systolic Sitting 104 mmHg BP Diastolic Sitting 65 mmHg Body Temperature 98.0 F O2 % BldC Oximetry 92 % pt on 3 liters BMI (Body Mass Index) 34.6 kg/m2 11/02/2017 3:23pm Height 63.75 inches 5'3.75" Weight 205.00 lb Heart Rate 101 /min BP Systolic 98 mmHg BP Diastolic 60 mmHg Body Temperature 98.3 F O2 % BldC Oximetry 91 % on 4LNC BMI (Body Mass Index) 35.5 kg/m2 08/31/2017 2:37pm Height 63.75 inches 5'3.75" Weight 205.00 lb [...] BMI (Body Mass Index) 35.5 kg/m2 08/14/2017 1:43pm Height 63.75 inches 5'3.75" Weight 205.00 lb Heart Rate 92 /min BP Systolic Sitting 112 mmHg BP Diastolic Sitting 66 mmHg Respiratory Rate 14 /min O2 % BldC Oximetry 92 % on 2L BMI (Body Mass Index) 35.5 kg/m2 08/03/2017 3:51pm Weight 207.00 lb Heart Rate 85 /min BP Systolic 138 mmHg BP Diastolic 80 mmHg Body Temperature 98.9 F O2 % BldC Oximetry 95 % 06/25/2017 2:06pm Height 63 inches 5'3" Weight 215.00 lb Heart Rate 84 /min BP Systolic Sitting 124 mmHg Rue large cuff BP Diastolic Sitting 84 mmHg Rue large cuff Respiratory Rate 12 /min O2 % BldC Oximetry 91 % BMI (Body Mass Index) 38.1 kg/m2 05/16/2017 2:55pm Heart Rate 76 /min BP Systolic Sitting 136 mmHg BP Diastolic Sitting 84 mmHg Body Temperature 99.2 F O2 % BldC Oximetry 94 % 03/06/2017 1:15pm Height 63.5 inches 5'3.50" Weight 226.00 lb Heart Rate 88 /min BP Systolic Sitting 132 mmHg BP Diastolic Sitting 78 mmHg Body Temperature 97.6 F O2 % BldC Oximetry 96 % BMI (Body Mass Index) 39.4 kg/m2 02/13/2017 1:36pm Height 63.5 inches 5'3.50" Weight 223.00 lb Heart Rate 78 /min BP Systolic Sitting 118 mmHg Lue large cuff BP Diastolic Sitting 64 mmHg Lue large cuff Respiratory Rate 18 /min O2 % BldC Oximetry 93 % On 2L O2 BMI (Body Mass Index) 38.9 kg/m2 01/24/2017 1:51pm Height 63.5 inches 5'3.50" Weight 217.00 lb BP Systolic 114 mmHg BP Diastolic 74 mmHg Respiratory Rate 20 /min Body Temperature 97.6 F Pain Level 5 BMI (Body Mass Index) 37.8 kg/m2 08/29/2016 2:45pm Weight 225.00 lb Heart Rate 78 /min BP Systolic Sitting 140 mmHg BP Diastolic Sitting 84 mmHg Respiratory Rate 14 /min O2 % BldC Oximetry 95 % 2%L 08/08/2016 1:18pm Height 63.5 inches 5'3.50" Heart Rate 88 /min BP Systolic Sitting 124 mmHg BP Diastolic Sitting 74 mmHg Respiratory Rate 16 /min Pain Level 0 O2 % BldC Oximetry 93 % On oxygen 02/29/2016 2:01pm Weight 212.00 lb Heart Rate 74 /min BP Systolic Sitting 132 mmHg BP Diastolic Sitting 80 mmHg Body Temperature 98.5 F O2 % BldC Oximetry 90 % 2L O2 02/08/2016 12:56pm Height 63.5 inches 5'3.50" Weight 217.00 lb Heart Rate 84 /min BP Systolic Sitting 136 mmHg BP Diastolic Sitting 72 mmHg Respiratory Rate 14 /min O2 % BldC Oximetry 94 % 2lpm via n/c BMI (Body Mass Index) 37.8 kg/m2 01/26/2016 1:29pm Height 63.5 inches 5'3.50" Weight 217.00 lb Pain Level 0 BMI (Body Mass Index) 37.8 kg/m2 09/28/2015 3:45pm Height 63.5 inches 5'3.50" Weight 223.00 lb reported Heart Rate 64 /min BP Systolic Sitting 144 mmHg BP Diastolic Sitting 84 mmHg Respiratory Rate 18 /min O2 % BldC Oximetry 94 % on 2lpm via n/c BMI (Body Mass Index) 38.9 kg/m2 08/31/2015 3:01pm Height 63.5 inches 5'3.50" Weight 223.00 lb Heart Rate 69 /min BP Systolic Sitting 174 mmHg BP Diastolic Sitting 79 mmHg Body Temperature 96.2 F O2 % BldC Oximetry 95 % BMI (Body Mass Index) 38.9 kg/m2 03/31/2015 1:13pm Height 64 inches 5'4" Weight 212.00 lb reported Heart Rate 72 /min BP Systolic 142 mmHg BP Diastolic 88 mmHg Respiratory Rate 14 /min O2 % BldC Oximetry 96 % 2 liters BMI (Body Mass Index) 36.4 kg/m2 03/01/2015 1:53pm Height 64 inches 5'4" Weight 213.75 lb Heart Rate 77 /min BP Systolic Sitting 174 mmHg BP Diastolic Sitting 88 mmHg Respiratory Rate 20 /min Body Temperature 98.5 F O2 % BldC Oximetry 93 % on 2lpm BMI (Body Mass Index) 36.7 kg/m2 01/25/2015 11:21am Height 64 inches 5'4" Weight 210.00 lb Pain Level 7 BMI (Body Mass Index) 36.0 kg/m2 09/28/2014 1:13pm Height 64.5 inches 5'4.50" Weight 219.38 lb Heart Rate 73 /min BP Systolic Sitting 148 mmHg BP Diastolic Sitting 89 mmHg O2 % BldC Oximetry 97 % 3lpm via n/c BMI (Body Mass Index) 37.1 kg/m2 08/27/2014 1:54pm Height 63.5 inches 5'3.50" Weight 219.25 lb Heart Rate 74 /min BP Systolic Sitting 168 mmHg BP Diastolic Sitting 96 mmHg Respiratory Rate 20 /min O2 % BldC Oximetry 98 % 3 liters BMI (Body Mass Index) 38.2 kg/m2 06/29/2014 11:30am Height 64 inches 5'4" Weight 210.00 lb Pain Level 0 BMI (Body Mass Index) 36.0 kg/m2 04/20/2014 4:47pm Weight 214.25 lb Heart Rate 81 /min BP Systolic Sitting 162 mmHg BP Diastolic Sitting 96 mmHg Body Temperature 98.3 F 04/13/2014 11:19am Height 64 inches 5'4" Heart Rate 76 /min BP Systolic Sitting 148 mmHg BP Diastolic Sitting 78 mmHg Respiratory Rate 20 /min O2 % BldC Oximetry 96 % 03/30/2014 12:06pm Height 64 inches 5'4" Weight 210.00 lb Heart Rate 80 /min BP Systolic 131 mmHg BP Diastolic 73 mmHg Body Temperature 99.5 F Pain Level 5 BMI (Body Mass Index) 36.0 kg/m2 02/09/2014 1:14pm Height 64 inches 5'4" Weight 220.00 lb Heart Rate 80 /min BP Systolic 142 mmHg BP Diastolic 90 mmHg BMI (Body Mass Index) 37.8 kg/m2 02/09/2014 10:16am Height 63.5 inches 5'3.50" Weight 220.00 lb Heart Rate 80 /min BP Systolic Sitting 144 mmHg left arm, large cuff BP Diastolic Sitting 98 mmHg left arm, large cuff Respiratory Rate 20 /min Body Temperature 98.1 F Temporal O2 % BldC Oximetry 93 % Room air BMI (Body Mass Index) 38.4 kg/m2 Neck Circumference in inches 17 02/04/2014 1:56pm Height 63.5 inches 5'3.50" Weight 218.50 lb Heart Rate 76 /min BP Systolic Sitting 163 mmHg BP Diastolic Sitting 84 mmHg Body Temperature 98.7 F O2 % BldC Oximetry 92 % BMI (Body Mass Index) 38.1 kg/m2 12/29/2013 10:10am Height 64 inches 5'4" Weight 220.00 lb Heart Rate 82 /min BP Systolic 151 mmHg BP Diastolic 83 mmHg BMI (Body Mass Index) 37.8 kg/m2 09/29/2013 9:52am Height 64 inches 5'4" Weight 220.00 lb Heart Rate 88 /min BP Systolic 144 mmHg BP Diastolic 89 mmHg BMI (Body Mass Index) 37.8 kg/m2 08/25/2013 12:46pm Height 64 inches 5'4" Weight 224.50 lb Heart Rate 88 /min BP Systolic Sitting 146 mmHg BP Diastolic Sitting 74 mmHg Body Temperature 99.0 F BMI (Body Mass Index) 38.5 kg/m2 02/24/2013 1:21pm Weight 199.00 lb Heart Rate 88 /min BP Systolic Sitting 138 mmHg BP Diastolic Sitting 84 mmHg 08/22/2012 1:17pm Height 65 inches 5'5" Weight 221.00 lb Heart Rate 88 /min BP Systolic Sitting 158 mmHg BP Diastolic Sitting 82 mmHg BMI (Body Mass Index) 36.8 kg/m2 02/23/2012 10:56am Height 65 inches 5'5" Weight 226.00 lb Heart Rate 100 /min BP Systolic Sitting 140 mmHg BP Diastolic Sitting 80 mmHg BMI (Body Mass Index) 37.6 kg/m2 08/23/2011 10:52am Height 65.5 inches 5'5.50" Weight 226.25 lb Heart Rate 78 /min BP Systolic Sitting 156 mmHg BP Diastolic Sitting 96 mmHg BMI (Body Mass Index) 37.1 kg/m2 02/22/2011 10:45am Height 65 inches 5'5" Weight 219.00 lb Heart Rate 96 /min BP Systolic Sitting 144 mmHg BP Diastolic Sitting 80 mmHg BMI (Body Mass Index) 36.4 kg/m2 01/18/2011 2:37pm Height 64.75 inches 5'4.75" Weight 217.00 lb Heart Rate 96 /min BP Systolic Sitting 162 mmHg BP Diastolic Sitting 100 mmHg BMI (Body Mass Index) 36.4 kg/m2 07/11/2010 4:14pm Weight 213.00 lb Heart Rate 84 /min BP Systolic Sitting 132 mmHg BP Diastolic Sitting 70 mmHg 01/10/2010 11:18am Weight 214.00 lb Heart Rate 90 /min BP Systolic Sitting 152 mmHg BP Diastolic Sitting 84 mmHg 09/29/2009 11:51am Weight 209.00 lb Heart Rate 68 /min BP Systolic Sitting 118 mmHg BP Diastolic Sitting 80 mmHg 06/22/2009 11:53am Weight 200.00 lb Heart Rate 82 /min BP Systolic Sitting 114 mmHg BP Diastolic Sitting 70 mmHg Body Temperature 99.0 F O2 % BldC Oximetry 93 % 06/08/2009 2:33pm Weight 200.00 lb Heart Rate 80 /min BP Systolic Sitting 140 mmHg BP Diastolic Sitting 82 mmHg 03/01/2009 2:45pm Heart Rate 68 /min BP Systolic Sitting 152 mmHg BP Diastolic Sitting 84 mmHg 02/11/2009 2:35pm Weight 188.00 lb Heart Rate 72 /min BP Systolic Sitting 140 mmHg BP Diastolic Sitting 72 mmHg 10/06/2008 2:42pm Heart Rate 78 /min BP Systolic Sitting 136 mmHg BP Diastolic Sitting 72 mmHg 07/29/2008 3:00pm Height 65.5 inches 5'5.50" Weight 167.00 lb Heart Rate 92 /min BP Systolic Sitting 134 mmHg BP Diastolic Sitting 70 mmHg BMI (Body Mass Index) 27.4 kg/m2 01/29/2008 1:55pm Height 65.5 inches 5'5.50" Weight 152.00 lb Heart Rate 65 /min BP Systolic Sitting 80 mmHg BP Diastolic Sitting 60 mmHg BMI (Body Mass Index) 24.9 kg/m2 01/21/2008 11:58am Height 65.5 inches 5'5.50" Heart Rate 84 /min BP Systolic Sitting 102 mmHg BP Diastolic Sitting 64 mmHg Body Temperature 98.6 F 07/24/2007 2:52pm Height 65.5 inches 5'5.50" Weight 161.00 lb Heart Rate 88 /min pulse irreg BP Systolic Sitting 120 mmHg BP Diastolic Sitting 72 mmHg BMI (Body Mass Index) 26.4 kg/m2 01/22/2007 2:19pm Height 65.5 inches 5'5.50" Weight 172.00 lb Heart Rate 88 /min BP Systolic Sitting 107 mmHg BP Diastolic Sitting 68 mmHg BMI (Body Mass Index) 28.2 kg/m2 Results Test Date Facility Test Result H/L Range Note Urinalysis Profile 11/06/2017 [facility] Urine Color Yellow [address] [place] [address] [phone] Urine Appearance Clear Urine Specific [place] 1.014 N 1.010-1.030 Urine pH 6.0 N 5-9 Urine Urobilinogen Negative Negative Urine Ketones Negative Negative Urine Protein Negative Negative Urine Leukocytes Negative Negative Urine Blood Negative Negative * * Abnormal Negative 1 Urine Nitrite Negative Negative Urine Bilirubin Negative Negative Urine Glucose Negative Negative Laboratory test 11/06/2017 [facility] Lactic Acid 1.8 mmol/L N 0.5-2.0 2 finding [address] [place] [address] [phone] CBC Auto Diff 11/06/2017 [facility] White Blood 8.3 10^3/uL N 3.5-10.8 [address] [facility] [place] [place] [address] [phone] Red Blood Count 4.44 10^6/uL N 4.00-5.40 Hemoglobin 13.7 g/dL N 12.0-16.0 Hematocrit 41 % N 35-47 Mean Corpuscular Volume 92 fL N 80-97 Mean Corpuscular Hemoglobin 31 pg N 27-31 Mean Corpuscular HGB Conc 34 g/dL N 31-36 Red Cell Distribution Width 13 % N 10.5-15 Platelet Count 300 10^3/uL N 150-450 Mean Platelet Volume 7.8 um3 N 7.4-10.4 Abs Neutrophils 6.9 10^3/uL N 1.5-7.7 Abs Lymphocytes 0.7 10^3/uL Low 1.0-4.8 Abs Monocytes 0.7 10^3/uL N 0-0.8 Abs Eosinophils 0 10^3/uL N 0-0.6 Abs Basophils 0 10^3/uL N 0-0.2 Abs Nucleated RBC 0 10^3/uL Granulocyte % 83.4 % High 38-83 Lymphocyte % 8.3 % Low 25-47 Monocyte % 8.1 % High 0-7 Eosinophil % 0.1 % N 0-6 Basophil % 0.1 % N 0-2 Nucleated Red Blood Cells % 0.1 Laboratory test 11/06/2017 [facility] D Dimer 245 ng/mL High Less [address] Quantitative Than [address] [place] [address] [phone] Troponin-I (TnI) 0.03 ng/mL <0.04 Comp Metabolic Panel 11/06/2017 [facility] Sodium 136 mmol/L N 135-[address] [place] [address] [phone] Potassium 4.3 mmol/L N 3.5-5.0 Chloride 98 mmol/L Low 101-111 Co2 Carbon Dioxide 31 mmol/L N 22-32 Anion Gap 7 mmol/L N 2-11 Glucose 104 mg/dL High 70-100 Blood Urea Nitrogen 21 mg/dL N 6-24 Creatinine 0.98 mg/dL High 0.51-0.95 BUN/Creatinine Ratio 21.4 High 8-20 Calcium 9.2 mg/dL N 8.6-10.3 Total Protein 6.6 g/dL N 6.4-8.9 Albumin 3.7 g/dL N 3.2-5.2 Globulin 2.9 g/dL N 2-4 Albumin/Globulin Ratio 1.3 N 1-3 Total Bilirubin 0.40 mg/dL N 0.2-1.0 Alkaline Phosphatase 67 U/L N 34-104 Alt 15 U/L N 7-52 Ast 20 U/L N 13-39 Egfr Non- 55.0 >60 Egfr 66.6 >60 4 Laboratory test 11/06/2017 [facility] Blood Culture SEE RESULT [address] [place] [address] [phone] CBC Auto Diff 09/18/2017 [facility] White Blood 7.5 10^3/uL N 3.5-[address] Count .8 [place] [address] [phone] Red Blood Count 4.36 10^6/uL N 4.0-5.4 Hemoglobin 13.9 g/dL N 12.0-16.0 Hematocrit 41 % N 35-47 Mean Corpuscular Volume 93 fL N 80-97 Mean Corpuscular Hemoglobin 32 pg High 27-31 Mean Corpuscular HGB Conc 34 g/dL N 31-36 Red Cell Distribution Width 14 % N 10.5-15 Platelet Count 241 10^3/uL N 150-450 Mean Platelet Volume 8.5 um3 N 7.4-10.4 Abs Neutrophils 4.8 10^3/uL N 1.5-7.7 Abs Lymphocytes 1.3 10^3/uL N 1.0-4.8 Abs Monocytes 1.1 10^3/uL High 0-0.8 Abs Eosinophils 0.3 10^3/uL N 0-0.6 Abs Basophils 0 10^3/uL N 0-0.2 Abs Nucleated RBC 0 10^3/uL Granulocyte % 64.1 % N 38-83 Lymphocyte % 17.3 % Low 25-47 Monocyte % 14.3 % High 0-7 Eosinophil % 3.7 % N 0-6 Basophil % 0.6 % N 0-2 Nucleated Red Blood Cells % 0.1 Inr/Protime 09/18/2017 [facility] Inr 0.92 N 0.77-1.[address] [place] [address] [phone] Laboratory test 09/18/2017 [facility] C Reactive 7.60 mg/L High < 5.00 [address] [place] [address] [phone] Basic Metabolic 08/07/2017 [facility] Sodium 136 Low 139-[address] mmol/[place] [address] [phone] Potassium 4.0 mmol/L N 3.5-5.0 Chloride 99 mmol/L Low 101-111 Co2 Carbon Dioxide 31 mmol/L N 22-32 Anion Gap 6 mmol/L N 2-11 Glucose 116 mg/dL High 70-100 Blood Urea Nitrogen 17 mg/dL N 6-24 Creatinine 0.84 mg/dL N 0.51-0.95 BUN/Creatinine Ratio 20.2 High 8-20 Calcium 9.0 mg/dL N 8.6-10.3 Egfr Non- 65.7 >60 Egfr 84.6 >60 7 Laboratory test 08/07/2017 [facility] C Reactive 65.53 mg/L High < 5.[address] [place] [address] [phone] CBC Auto Diff 07/21/2017 [facility] White Blood 6.7 N 3.5- 10.[address] Count 10^3/[place] [address] [phone] Red Blood Count 4.16 10^6/uL N 4.0-5.4 Hemoglobin 13.2 g/dL N 12.0-16.0 Hematocrit 39 % N 35-47 Mean Corpuscular Volume 93 fL N 80-97 Mean Corpuscular Hemoglobin 32 pg High 27-31 Mean Corpuscular HGB Conc 34 g/dL N 31-36 Red Cell Distribution Width 13 % N 10.5-15 Platelet Count 258 10^3/uL N 150-450 Mean Platelet Volume 8.2 um3 N 7.4-10.4 Abs Neutrophils 4.2 10^3/uL N 1.5-7.7 Abs Lymphocytes 0.8 10^3/uL Low 1.0-4.8 Abs Monocytes 1.5 10^3/uL High 0-0.8 Abs Eosinophils 0.2 10^3/uL N 0-0.6 Abs Basophils 0.1 10^3/uL N 0-0.2 Abs Nucleated RBC 0 10^3/uL Granulocyte % 62.5 % N 38-83 Lymphocyte % 11.3 % Low 25-47 Monocyte % 21.9 % High 0-7 Eosinophil % 3.5 % N 0-6 Basophil % 0.8 % N 0-2 Nucleated Red Blood Cells % 0.1 Laboratory test 07/21/2017 [facility] Lactic Acid 1.2 mmol/L N 0.5-2.0 [address] [place] [address] [phone] Comp Metabolic 07/21/2017 [facility] Sodium 133 mmol/L Low 139 -[address] [place] [address] [phone] Potassium 4.5 mmol/L N 3.5-5.0 Chloride 94 mmol/L Low 101-111 Co2 Carbon Dioxide 32 mmol/L N 22-32 Anion Gap 7 mmol/L N 2-11 Glucose 107 mg/dL High 70-100 Blood Urea Nitrogen 16 mg/dL N 6-24 Creatinine 0.85 mg/dL N 0.51-0.95 BUN/Creatinine Ratio 18.8 N 8-20 Calcium 9.5 mg/dL N 8.6-10.3 Total Protein 6.7 g/dL N 6.4-8.9 Albumin 3.7 g/dL N 3.2-5.2 Globulin 3.0 g/dL N 2-4 Albumin/Globulin Ratio 1.2 N 1-3 Total Bilirubin 0.60 mg/dL N 0.2-1.0 Alkaline Phosphatase 97 U/L N 34-104 Alt 13 U/L N 7-52 Ast 20 U/L N 13-39 Egfr Non- 64.9 >60 Egfr 83.4 >60 10 Laboratory test 07/21/2017 [facility] Troponin-I (TnI) 0.03 ng/ mL <0.[address] [place] [address] [phone] C Reactive Protein 43.52 mg/L High < 5.00 11 B-Type Natriuretic Peptide BNP 87 pg/mL 12 Inr/Protime 07/21/2017 [facility] Inr 0.95 N 0.77-1.[address] [place] [address] [phone] Laboratory test 07/21/2017 [facility] Partial 37.8 High 26.0- 36.[address] [place] [address] [phone] Rapid Influenza 06/15/2017 [facility] Influenza A NEGATIVE Negative 13 A & B Molecular [address] [place] [address] [phone] Influenza B Molecular NEGATIVE Negative Laboratory test 06/15/2017 [facility] Rapid Influenza SEE RESULT [address] [place] [address] [phone] Comp Metabolic 06/15/2017 [facility] Sodium 127 mmol/L Low 133 -[address] [place] [address] [phone] Potassium 4.3 mmol/L N 3.5-5.0 Chloride 89 mmol/L Low 101-111 Co2 Carbon Dioxide 32 mmol/L N 22-32 Anion Gap 6 mmol/L N 2-11 Glucose 103 mg/dL High 70-100 Blood Urea Nitrogen 12 mg/dL N 6-24 Creatinine 0.76 mg/dL N 0.51-0.95 BUN/Creatinine Ratio 15.8 N 8-20 Calcium 9.6 mg/dL N 8.6-10.3 Total Protein 6.8 g/dL N 6.4-8.9 Albumin 3.6 g/dL N 3.2-5.2 Globulin 3.2 g/dL N 2-4 Albumin/Globulin Ratio 1.1 N 1-3 Total Bilirubin 0.50 mg/dL N 0.2-1.0 Alkaline Phosphatase 87 U/L N 34-104 Alt 17 U/L N 7-52 Ast 23 U/L N 13-39 Egfr Non- 73.8 >60 Egfr 94.9 >60 15 Laboratory test 06/15/2017 [facility] C Reactive 31.14 mg/L High < 5.00 [address] [place] [address] [phone] Troponin-I (TnI) 0.05 ng/mL High <0.04 17 B-Type Natriuretic Peptide BNP 65 pg/mL 18 Lactic Acid 1.2 mmol/L N 0.5-2.0 19 CBC Auto Diff 06/15/2017 [facility] White Blood 7.0 10^3/uL N 3.5-10.[address] [place] [address] [phone] Red Blood Count 4.13 10^6/uL N 4.0-5.4 Hemoglobin 13.2 g/dL N 12.0-16.0 Hematocrit 38 % N 35-47 Mean Corpuscular Volume 92 fL N 80-97 Mean Corpuscular Hemoglobin 32 pg High 27-31 Mean Corpuscular HGB Conc 35 g/dL N 31-36 Red Cell Distribution Width 12 % N 10.5-15 Platelet Count 312 10^3/uL N 150-450 Mean Platelet Volume 7 um3 Low 7.4-10.4 Abs Neutrophils 4.9 10^3/uL N 1.5-7.7 Abs Lymphocytes 0.6 10^3/uL Low 1.0-4.8 Abs Monocytes 1.2 10^3/uL High 0-0.8 Abs Eosinophils 0.2 10^3/uL N 0-0.6 Abs Basophils 0.1 10^3/uL N 0-0.2 Abs Nucleated RBC 0 10^3/uL Granulocyte % 69.1 % N 38-83 Lymphocyte % 8.6 % Low 25-47 Monocyte % 17.8 % High 0-7 Eosinophil % 3.5 % N 0-6 Basophil % 1.0 % N 0-2 Nucleated Red Blood Cells % 0 Inr/Protime 06/15/2017 [facility] Inr 0.98 N 0.77-1.[address] [place] [address] [phone] Urinalysis Profile 05/29/2017 [facility] Urine Color Yellow [address] [place] [address] [phone] Urine Appearance Clear Urine Specific [place] 1.009 Low 1.010-1.030 Urine pH 8.0 N 5-9 Urine Urobilinogen Negative Negative Urine Ketones Negative Negative Urine Protein Negative Negative Urine Leukocytes Negative Negative Urine Blood Negative Negative Urine Nitrite Negative Negative Urine Bilirubin Negative Negative Urine Glucose Negative Negative CBC Auto Diff 05/29/2017 [facility] White Blood 8.4 10^3/uL N 3.5-10.[address] [place] [address] [phone] Red Blood Count 4.58 10^6/uL N 4.0-5.4 Hemoglobin 14.4 g/dL N 12.0-16.0 Hematocrit 42 % N 35-47 Mean Corpuscular Volume 91 fL N 80-97 Mean Corpuscular Hemoglobin 31 pg N 27-31 Mean Corpuscular HGB Conc 35 g/dL N 31-36 Red Cell Distribution Width 12 % N 10.5-15 Platelet Count 221 10^3/uL N 150-450 Mean Platelet Volume 8 um3 N 7.4-10.4 Abs Neutrophils 5.8 10^3/uL N 1.5-7.7 Abs Lymphocytes 1.2 10^3/uL N 1.0-4.8 Abs Monocytes 1.2 10^3/uL High 0-0.8 Abs Eosinophils 0.2 10^3/uL N 0-0.6 Abs Basophils 0 10^3/uL N 0-0.2 Abs Nucleated RBC 0 10^3/uL Granulocyte % 68.5 % N 38-83 Lymphocyte % 14.5 % Low 25-47 Monocyte % 14.7 % High 1-9 Eosinophil % 1.9 % N 0-6 Basophil % 0.4 % N 0-2 Nucleated Red Blood Cells % 0 Comp Metabolic Panel 05/29/2017 [facility] Sodium 125 mmol/L Low 133-145 [address] [place] [address] [phone] Potassium 3.7 mmol/L N 3.5-5.0 Chloride 86 mmol/L Low 101-111 Co2 Carbon Dioxide 34 mmol/L High 22-32 Anion Gap 5 mmol/L N 2-11 Glucose 96 mg/dL N 70-100 Blood Urea Nitrogen 10 mg/dL N 6-24 Creatinine 0.78 mg/dL N 0.51-0.95 BUN/Creatinine Ratio 12.8 N 8-20 Calcium 9.5 mg/dL N 8.6-10.3 Total Protein 6.7 g/dL N 6.4-8.9 Albumin 3.9 g/dL N 3.2-5.2 Globulin 2.8 g/dL N 2-4 Albumin/Globulin Ratio 1.4 N 1-3 Total Bilirubin 0.70 mg/dL N 0.2-1.0 Alkaline Phosphatase 61 U/L N 34-104 Alt 12 U/L N 7-52 Ast 21 U/L N 13-39 Egfr Non- 71.6 >60 Egfr 92.1 >60 20 Laboratory test finding 05/29/2017 [facility] Amylase 55 U/L N 29-103 [address] [place] [address] [phone] Lipase 38 U/L N 11.0-82.0 C Reactive Protein 3.25 mg/L N < 5.00 21 Comp Metabolic Panel 03/27/2017 [facility] Sodium 137 mmol/L N 133-145 [address] [place] [address] [phone] Potassium 4.3 mmol/L N 3.5-5.0 Chloride 96 mmol/L Low 101-111 Co2 Carbon Dioxide 31 mmol/L N 22-32 Anion Gap 10 mmol/L N 2-11 Glucose 97 mg/dL N 70-100 Blood Urea Nitrogen 16 mg/dL N 6-24 Creatinine 0.93 mg/dL N 0.51-0.95 BUN/Creatinine Ratio 17.2 N 8-20 Calcium 9.5 mg/dL N 8.6-10.3 Total Protein 6.8 g/dL N 6.4-8.9 Albumin 4.1 g/dL N 3.2-5.2 Globulin 2.7 g/dL N 2-4 Albumin/Globulin Ratio 1.5 N 1-3 Total Bilirubin 0.80 mg/dL N 0.2-1.0 Alkaline Phosphatase 57 U/L N 34-104 Alt 13 U/L N 7-52 Ast 22 U/L N 13-39 Egfr Non- 58.5 >60 Egfr 75.2 >60 22 Lipid Profile 03/27/2017 [facility] Triglycerides 158 mg/dL 23 (Trig/Chol/HDL) [address] [place] [address] [phone] Cholesterol 194 mg/dL 24 HDL Cholesterol 54.9 mg/dL 25 LDL Cholesterol 108 mg/dL 26 Lipid Profile 03/28/2016 [facility] Triglycerides 200 mg/dL N 27 (Trig/Chol/HDL) [address] [place] [address] [phone] Cholesterol 198 mg/dL N 28 HDL Cholesterol 46.2 mg/dL N 29 LDL Cholesterol 112 mg/dL N 30 Comp Metabolic Panel 03/28/2016 [facility] Sodium 135 mmol/L N 133-145 [address] [place] [address] [phone] Potassium 4.3 mmol/L N 3.5-5.0 Chloride 97 mmol/L Low 101-111 Co2 Carbon Dioxide 35 mmol/L High 22-32 Anion Gap 3 mmol/L N 2-11 Glucose 87 mg/dL N 70-100 Blood Urea Nitrogen 19 mg/dL N 6-24 Creatinine 0.94 mg/dL N 0.51-0.95 BUN/Creatinine Ratio 20.2 High 8-20 Calcium 9.2 mg/dL N 8.6-10.3 Total Protein 6.8 g/dL N 6.4-8.9 Albumin 4.0 g/dL N 3.2-5.2 Globulin 2.8 g/dL N 2-4 Albumin/Globulin Ratio 1.4 N 1-3 Total Bilirubin 0.60 mg/dL N 0.2-1.0 Alkaline Phosphatase 55 U/L N 34-104 Alt 12 U/L N 7-52 Ast 21 U/L N 13-39 Egfr Non- 57.9 N >60 Egfr 74.5 N >60 31 Lipid Profile 04/01/2015 [facility] Triglycerides 231 mg/dL N 32 (Trig/Chol/HDL) [address] [place] [address] [phone] Cholesterol 195 mg/dL N 33 HDL Cholesterol 45.1 mg/dL N 34 LDL Cholesterol 104 mg/dL N 35 Comp Metabolic Panel 04/01/2015 [facility] Sodium 130 mmol/L Low 133-145 [address] [place] [address] [phone] Potassium 4.3 mmol/L N 3.5-5.0 Chloride 92 mmol/L Low 101-111 Co2 Carbon Dioxide 33 mmol/L High 22-32 Anion Gap 5 mmol/L N 2-11 Glucose 99 mg/dL N 70-100 Blood Urea Nitrogen 26 mg/dL High 6-24 Creatinine 1.06 mg/dL High 0.51-0.95 BUN/Creatinine Ratio 24.5 High 8-20 Calcium 9.4 mg/dL N 8.6-10.3 Total Protein 7.0 g/dL N 6.4-8.9 Albumin 4.3 g/dL N 3.2-5.2 Globulin 2.7 g/dL N 2-4 Albumin/Globulin Ratio 1.6 N 1-3 Total Bilirubin 0.80 mg/dL N 0.2-1.0 Alkaline Phosphatase 51 U/L N 34-104 Alt 13 U/L N 7-52 Ast 23 U/L N 13-39 Egfr Non- 50.5 N >60 Egfr 65.0 N >60 36 Urinalysis Profile 02/12/2014 [facility] Urine Color Rosio N [address] [place] [address] [phone] Urine Appearance Cloudy N Urine Specific [place] 1.017 N 1.010-1.030 Urine pH 7.0 N 5-9 Urine Urobilinogen Negative N Negative Urine Ketones Negative N Negative Urine Protein Negative N Negative Urine Leukocytes Negative N Negative Urine Blood Negative N Negative * * Abnormal Negative 37 Urine Nitrite Negative N Negative Urine Bilirubin Negative N Negative Urine Glucose Negative N Negative Urine Culture And 02/12/2014 [facility] Urine Culture (SEE NOTE ) 38 Sensitivities [address] [place] [address] [phone] CBC No Diff 02/11/2014 [facility] White Blood 8.4 10^3/uL N 4.8-[address] Count [address]8 [place] [address] [phone] Red Blood Count 4.77 10^6/uL N 4.0-5.4 Hemoglobin 15.1 g/dL N 12.0-16.0 Hematocrit 44 % N 35-47 Mean Corpuscular Volume 93 fL N 80-97 Mean Corpuscular Hemoglobin 32 pg High 27-31 Mean Corpuscular HGB Conc 34 g/dL N 31-36 Red Cell Distribution Width 13 % N 10.5-15 Platelet Count 261 10^3/uL N 150-450 Mean Platelet Volume 9 um3 N 7.4-10.4 Inr/Protime 02/11/2014 [facility] Inr 0.92 N 0.85-1.06 [address] [place] [address] [phone] Basic Metabolic 02/11/2014 [facility] Sodium 131 mmol/L Low 133-145 Panel [address] [place] [address] [phone] Potassium 4.8 mmol/L N 3.7-5.6 Chloride 96 mmol/L Low 101-111 Co2 Carbon Dioxide 29 mmol/L N 22-32 Anion Gap 6 mmol/L N 2-11 Glucose 68 mg/dL Low 70-100 Blood Urea Nitrogen 16 mg/dL N 6-24 Creatinine 0.85 mg/dL N 0.51-0.95 BUN/Creatinine Ratio 18.8 N 8-20 Calcium 9.9 mg/dL N 8.6-10.3 Egfr Non- 65.4 N >60 Egfr 84.1 N >60 40 Type & Screen 02/11/2014 [facility] Patient Blood Type O Positive N [address] [place] [address] [phone] Antibody Screen NEGATIVE N Lipid Profile 08/18/2013 [facility] Triglycerides 186 mg/dL N 41, 42 (Trig/Chol/HDL) [address] [place] [address] [phone] Cholesterol 158 mg/dL N 43 HDL Cholesterol 41.5 mg/dL N 44 LDL Cholesterol 79 mg/dL N 45 Comp Metabolic Panel 08/18/2013 [facility] Sodium 132 mmol/L Low 133-[address] [place] [address] [phone] Potassium 4.3 mmol/L N 3.7-5.6 Chloride 97 mmol/L Low 101-111 Co2 Carbon Dioxide 26 mmol/L N 22-32 Anion Gap 9 mmol/L N 2-11 Glucose 95 mg/dL N 70-100 Blood Urea Nitrogen 16 mg/dL N 6-24 Creatinine 0.90 mg/dL N 0.51-0.95 BUN/Creatinine Ratio 17.8 N 8-20 Calcium 9.4 mg/dL N 8.6-10.3 Total Protein 6.8 g/dL N 6.4-8.9 Albumin 4.4 g/dL N 3.2-5.2 Globulin 2.4 g/dL N 2-4 Albumin/Globulin Ratio 1.8 N 1-3 Total Bilirubin 0.60 mg/dL N 0.2-1.0 Alkaline Phosphatase 58 U/L N 34-104 Alt 13 U/L N 7-52 Ast 21 U/L N 13-39 Egfr Non- 61.4 N >60 Egfr 78.9 N >60 46 Vitamin D, 25 08/18/2013 [facility] 25-Hydroxy Vitamin <4.0 ng/ mL N Hydroxy [address] [place] [address] [phone] 25-Hydroxy Vitamin D3 44 ng/mL N 25-Hydroxy Vitamin D Total 44 ng/mL N 47 Laboratory test 10/11/2012 [facility] Inr 1.82 High 0.87-0.97 finding [address] [place] [address] [phone] Laboratory test 10/03/2012 [facility] Inr 2.24 High 0.87-0.97 finding [address] [place] [address] [phone] CBC Auto Diff 09/12/2012 [facility] White Blood 9.0 4.8-10.[address] Count 10^3/[place] [address] [phone] Red Blood Count 4.86 10^6/uL 4.0-5.4 Hemoglobin [...] Red Blood Cells % 0.1 Inr/Protime 09/12/2012 [facility] Inr 0.87 0.87-0.97 [address] [place] [address] [phone] Comp Metabolic 09/12/2012 [facility] Sodium 127 mmol/L Low 133 -145 Panel [address] [place] [address] [phone] Potassium 4.4 mmol/L 3.5-5.0 Chloride 93 mmol/L [...] Egfr Non- 44.2 >60 Egfr 56.8 >60 48 Laboratory test 09/12/2012 [facility] Troponin I 0.02 ng/mL 0 -0.06 [address] [place] [address] [phone] Type & Screen 09/12/2012 [facility] Patient Blood O Positive [address] [place] [address] [phone] Antibody Screen NEGATIVE Laboratory test 08/19/2012 [facility] Hemoglobin A1c 5.5 % Less than [address] 6[address]0 [place] [address] [phone] Lipid Profile 08/19/2012 [facility] Triglycerides 203 High 40- 200 (Trig/Chol/HDL) [address] mg/[place] [address] [phone] Cholesterol 173 mg/dL Less than 200 HDL Cholesterol 46 mg/dL 40-60 51 Cholesterol/HDL Ratio 3.8 Average 1-4.44 LDL Cholesterol 86.4 mg/dL Less Than 100 52 Comp Metabolic Panel 08/19/2012 [facility] Sodium 133 mmol/L 133-[address] [place] [address] [phone] Potassium 4.3 mmol/L 3.5-5.0 Chloride 97 mmol/L [...] Egfr Non- 54.5 >60 Egfr 70.1 >60 53 Lipid Panel - 08/19/2012 [facility] Creatine Kinase 293 U/L High 0-200 [address] [place] [address] [phone] Surgical 03/14/2012 [facility] S RUN [address] DATE: ROSALINE Gupta50 [phone] <SEE NOTE> Lipid Profile 08/17/2011 [facility] Triglyceride 254 High 40- 200 (Trig/Chol/HDL) [address] mg/[place] [address] [phone] Cholesterol 173 mg/dL Less Than 200 56 High Density Lipoprotein 42 mg/dL 40-60 57 Cholesterol/HDL Ratio 4.12 AVERAGE 1-4.44 Low Density Lipoprotein 80 mg/dL Less Than 100 58 Comp Metabolic Panel 08/17/2011 [facility] Sodium 135 mmol/L 135-[address] [place] [address] [phone] Potassium 4.3 mmol/L 3.5-5.0 Chloride 101 mmol/L 101-111 Co2 (Carbon Dioxide) 29.0 mmol/L 22-32 Anion Gap 5.0 mmol/L 2-11 59 Glucose 99 mg/dL 70-100 BUN 17 mg/dL 6-24 Creatinine 1.0 mg/dL 0.50-1.40 One Over Creatinine 1.00 BUN/Creatinine Ratio 17.0 8-20 Calcium 9.0 mg/dL 8.1-9.9 Total Protein 6.7 GM/DL 6.2-8.1 Albumin 4.0 GM/DL 3.2-5.2 Globulin 2.7 GM/DL 2-4 Albumin/Globulin Ratio 1.5 1-3 Bilirubin Total 0.8 mg/dL 0.4-1.5 60 Alkaline Phosphatase 55 U/L 30-110 Alt (SGPT) 23 U/L 14-54 Ast (Sgot) 29 U/L 12-42 eGFR Non- 54.7 > 60 eGFR 70.3 > 60 61 Laboratory test 08/17/2011 [facility] Hemoglobin A1c 6.3 % High Less Than [address] [place] [address] [phone] Laboratory test 04/04/2011 [facility] Alt (SGPT) 23 U/L 14- [address] [place] [address] [phone] Alkaline 04/04/2011 [facility] Alkaline 62 U/L 55 - 142 63 Phosphatase 101 [facility] Phosphatase,[place] [address] [phone] Liver 1% 51.6 % 27.8-76.3 Liver 1 32.0 IU/L 16.2-70.2 Liver 2% 5.6 % 0.0-8.0 Liver 2 3.5 IU/L 0.0-5.8 Bone % 42.8 % 19.1-67.7 Bone 26.5 IU/L 12.1-42.7 Intestine % 0.0 % 0.0-20.6 Intestine 0.0 IU/L 0.0-11.0 Placental NotPresent () 64 Lipid Profile 04/04/2011 [facility] Triglyceride 273 mg/dL High 40-200 (Trig/Chol/HDL) [address] [place] [address] [phone] Cholesterol 166 mg/dL Less Than 200 65 High Density Lipoprotein 39 mg/dL Low 40-60 66 Cholesterol/HDL Ratio 4.26 AVERAGE 1-4.44 Low Density Lipoprotein 72 mg/dL Less Than 100 67 Laboratory test 01/18/2011 [facility] In House Hemoglobin A1c 5.5 5-7 finding Lipid Profile 07/14/2010 [facility] Triglyceride 349 mg/dL High 40-200 (Trig/Chol/HDL) [address] [place] [address] [phone] Cholesterol 224 mg/dL High Less Than 200 68 High Density Lipoprotein 39 mg/dL Low 40-60 69 Cholesterol/HDL Ratio 5.74 AVERAGE High 1-4.44 Low Density Lipoprotein 115 mg/dL High Less Than 100 70 Basic Metabolic 07/14/2010 [facility] Sodium 134 mmol/L Low 135-145 Panel [address] [place] [address] [phone] Potassium 4.5 mmol/L 3.5-5.0 Chloride 100 mmol/L Low 101-111 Co2 (Carbon Dioxide) 28.0 mmol/L 22-32 Anion Gap 6.0 mmol/L 2-11 71 Glucose 108 mg/dL High 70-100 BUN 15 mg/dL 6-24 Creatinine 1.00 mg/dL 0.50-1.40 One Over Creatinine 1.00 BUN/Creatinine Ratio 15.0 8-20 Calcium 9.8 mg/dL 8.1-9.9 eGFR Non- 54.8 > 60 eGFR 70.5 > 60 72 Laboratory test 07/14/2010 [facility] TSH 2.93 MIU/ML 0.34- 5.[address] [place] [address] [phone] Comp Metabolic 06/22/2010 [facility] Sodium 137 mmol/L 135- [address] [place] [address] [phone] Potassium 4.2 mmol/L 3.5-5.0 Chloride 100 mmol/L Low 101-111 Co2 (Carbon Dioxide) 29.0 mmol/L 22-32 Anion Gap 8.0 mmol/L 2-11 73 Glucose 137 mg/dL High 70-100 BUN 17 mg/dL 6-24 Creatinine 1.10 mg/dL 0.50-1.40 One Over Creatinine 0.90 BUN/Creatinine Ratio 15.5 8-20 Calcium 9.6 mg/dL 8.1-9.9 Total Protein 7.0 GM/DL 6.2-8.1 Albumin 4.1 GM/DL 3.2-5.2 Globulin 2.9 GM/DL 2-4 Albumin/Globulin Ratio 1.4 1-3 Bilirubin Total 0.7 mg/dL 0.4-1.5 74 Alkaline Phosphatase 54 U/L 30-110 Alt (SGPT) 20 U/L 14-54 Ast (Sgot) 27 U/L 12-42 eGFR Non- 49.1 > 60 eGFR 63.1 > 60 75 CBC With Manual 06/22/2010 [facility] White Blood 6.9 CUMM 4.8-10.[address] [place] [address] [phone] Red Cell Count 4.71 CUMM 4.2-5.4 Hemoglobin [...] 4.3 RBC Morphology NORMAL CBC With Manual 03/23/2010 [facility] White Blood 8.1 CUMM 4.8-10.[address] [place] [address] [phone] Red Cell Count 4.67 CUMM 4.2-5.4 Hemoglobin [...] RBC Morphology NORMAL Comp Metabolic Panel 03/23/2010 [facility] Sodium 133 mmol/L Low 135-[address] [place] [address] [phone] Potassium 4.3 mmol/L 3.5-5.0 Chloride 99 mmol/L Low 101-111 Co2 (Carbon Dioxide) 27.0 mmol/L 22-32 Anion Gap 7.0 mmol/L 2-11 76 Glucose 141 mg/dL High 70-100 77 BUN 18 mg/dL 6-24 Creatinine 1.40 mg/dL 0.50-1.40 One Over Creatinine 0.70 BUN/Creatinine Ratio 12.9 8-20 Calcium 9.1 mg/dL 8.1-9.9 Total Protein 6.3 GM/DL 6.2-8.1 Albumin 3.4 GM/DL 3.2-5.2 Globulin 2.9 GM/DL 2-4 Albumin/Globulin Ratio 1.2 1-3 Bilirubin Total 0.6 mg/dL 0.4-1.5 78 Alkaline Phosphatase 70 U/L 30-110 Alt (SGPT) 24 U/L 14-54 Ast (Sgot) 25 U/L 12-42 eGFR Non- 39.5 > 60 eGFR 47.8 > 60 79 Laboratory test 03/23/2010 [facility] Carcino 1.99 NG/ML 0-5 [address] [place] [address] Antigen [phone] Comp Metabolic 12/22/2009 [facility] Sodium 134 mmol/L Low 135 -[address] [place] [address] [phone] Potassium 4.6 mmol/L 3.5-5.0 Chloride 96 mmol/L Low 101-111 Co2 (Carbon Dioxide) 30.0 mmol/L 22-32 Anion Gap 8.0 mmol/L 2-11 81 Glucose 67 mg/dL Low 70-100 82 BUN 16 mg/dL 6-24 Creatinine 0.80 mg/dL 0.50-1.40 One Over Creatinine 1.20 BUN/Creatinine Ratio 20.0 8-20 Calcium 9.6 mg/dL 8.1-9.9 Total Protein 6.8 GM/DL 6.2-8.1 Albumin 4.2 GM/DL 3.2-5.2 Globulin 2.6 GM/DL 2-4 Albumin/Globulin Ratio 1.6 1-3 Bilirubin Total 1.1 mg/dL 0.4-1.5 83 Alkaline Phosphatase 60 U/L 30-110 Alt (SGPT) 24 U/L 14-54 Ast (Sgot) 30 U/L 12-42 eGFR Non- 75.6 > 60 eGFR 91.5 > 60 84 Laboratory test 12/22/2009 [facility] Carcino 2.32 NG/ML 0-5 [address] [place] [address] Antigen [phone] CBC With Manual 12/22/2009 [facility] White Blood 8.4 CUMM 4.8-10.[address] [place] [address] [phone] Red Cell Count 4.46 CUMM 4.2-5.4 Hemoglobin [...] Absolute Neutrophil Count 4.9 RBC Morphology NORMAL Laboratory test 08/03/2009 [facility] Carcino 1.48 NG/ML 0-5 [address] [place] [address] Antigen [phone] Comp Metabolic 08/03/2009 [facility] Sodium 135 mmol/L 135- [address] [place], [place] [address] [phone] Potassium 4.6 mmol/L 3.5-5.0 Chloride 98 mmol/L Low 101-111 Co2 (Carbon Dioxide) 29.0 mmol/L 22-32 Anion Gap 8.0 mmol/L 2-11 87 Glucose 76 mg/dL 70-100 88 BUN 14 mg/dL 6-24 Creatinine 0.90 mg/dL 0.50-1.40 One Over Creatinine 1.10 BUN/Creatinine Ratio 15.6 8-20 Calcium 9.7 mg/dL 8.1-9.9 89 Total Protein 7.1 GM/DL 6.2-8.1 Albumin 3.9 GM/DL 3.2-5.2 Globulin 3.2 GM/DL 2-4 Albumin/Globulin Ratio 1.2 1-3 Bilirubin Total 0.6 mg/dL 0.4-1.5 90 Alkaline Phosphatase 81 U/L 30-110 Alt (SGPT) 21 U/L 14-54 Ast (Sgot) 27 U/L 12-42 eGFR Non- 66.0 > 60 eGFR 79.8 > 60 91 CBC With Manual 08/03/2009 [facility] White Blood 7.5 CUMM 4.8-10.[address] [place] [address] [phone] Red Cell Count 4.38 CUMM 4.2-5.4 Hemoglobin [...] 3.7 RBC Morphology NORMAL Comp Metabolic Panel 04/26/2009 [facility] Sodium 136 mmol/L 135-[address] [place] [address] [phone] Potassium 4.5 mmol/L 3.5-5.0 Chloride 99 mmol/L Low 101-111 Co2 (Carbon Dioxide) 29.0 mmol/L 22-32 Anion Gap 8.0 mmol/L 2-11 92 Glucose 68 mg/dL Low 70-100 93 BUN 17 mg/dL 6-24 Creatinine 0.80 mg/dL 0.50-1.40 One Over Creatinine 1.20 BUN/Creatinine Ratio 21.3 High 8-20 Calcium 9.7 mg/dL 8.1-9.9 94 Total Protein 6.9 GM/DL 6.2-8.1 Albumin 4.0 GM/DL 3.2-5.2 Globulin 2.9 GM/DL 2-4 Albumin/Globulin Ratio 1.4 1-3 Bilirubin Total 0.6 mg/dL 0.4-1.5 95 Alkaline Phosphatase 70 U/L 30-110 Alt (SGPT) 26 U/L 14-54 Ast (Sgot) 31 U/L 12-42 eGFR Non- 75.6 > 60 eGFR 91.5 > 60 96 Laboratory test 04/26/2009 [facility] Carcino 1.59 NG/ML 0-[address] [place] [address] Antigen [phone] CBC With Manual 04/26/2009 [facility] White Blood 6.8 CUMM 4.8-10.[address] Count [place], [place] [id number] [phone] Red Cell Count 4.66 CUMM 4.2-5.4 Hemoglobin [...] Neutrophil Count 3.3 Anisocytosis SLIGHT Laboratory test 03/31/2009 [facility] Vitamin B12 372 pg/mL 180-914 finding [address] [place] [address] [phone] Immunofixation 03/31/2009 [facility] Albumin 3.43 GM/DL 3.0- 4.35 (Electro) Serum [address] [place] [address] [phone] Alpha 1 0.16 GM/DL 0.09-0.33 Alpha 2 0.94 GM/DL 0.59-1.18 Beta 0.92 GM/DL 0.68-1.02 Gamma 1.24 GM/DL 0.76-1.60 Albumin % 51.2 % 46-63 Alpha 1 % 2.4 % 1.2-5.3 Alpha 2 % 14.0 % 9-17 Beta % 13.7 % 10-16 Gamma % 18.5 % 12-22 A/G Ratio 1.1 0.9-2 Total Protein 6.7 GM/DL 6.2-8.1 Spep Comments (SEE NOTE) 98 Serum Immunofixation (SEE NOTE) 99 [place]o 03/31/2009 [facility] Cary-1 Negative titer <1:240 [address] [place] [address] [phone] Cary-2 Negative titer <1:240 Cary-3 Negative titer <1:240 Agna-1 Negative titer <1:240 [employer] Consultant-1 Negative titer <1:240 Business Solutions Consultant-2 Negative titer <1:240 Business Solutions Consultant-Tr Negative titer <1:240 Amphiphysin AB Negative titer <1:240 [id number] Negative titer () 100 Striational AB Negative titer <1:60 101 P/Q-Type Calcium Channel AB 0.00 nmol/L <=0.02 102 N-Type Calcium Channel AB 0.00 nmol/L <=0.03 103 Ach Receptor Binding AB 0.00 nmol/L <=0.02 104 Achr Ganglionic Neuronal AB 0.01 nmol/L <=0.02 105 VGKC AB, Serum 0.00 nmol/L <=0.02 106 Basic Metabolic Panel 03/23/2009 [facility] Sodium 140 mmol/L 135-[address] [place] [address] [phone] Potassium 4.8 mmol/L 3.5-5.0 Chloride 103 mmol/L 101-111 Co2 (Carbon Dioxide) 28.0 mmol/L 22-32 Anion Gap 9.0 mmol/L 2-11 107 Glucose 74 mg/dL 70-100 108 BUN 20 mg/dL 6-24 Creatinine 1.00 mg/dL 0.50-1.40 One Over Creatinine 1.00 BUN/Creatinine Ratio 20.0 8-20 Calcium 9.6 mg/dL 8.1-9.9 109 eGFR Non- 58.4 > 60 eGFR 70.7 > 60 110 Laboratory test 01/20/2009 [facility] TSH 3.32 MIU/ML 0.34- 5.[address] [place] [address] [phone] CBC With Manual 01/20/2009 [facility] White Blood 6.8 CUMM 4.8-10.8 Diff 101 [place] [address] [phone] Red Cell Count 4.59 CUMM 4.2-5.4 Hemoglobin [...] RBC Morphology NORMAL Comp Metabolic Panel 01/20/2009 [facility] Sodium 137 mmol/L 135-[address] [place] [address] [phone] Potassium 3.6 mmol/L 3.5-5.0 Chloride 101 mmol/L 101-111 Co2 (Carbon Dioxide) 26.0 mmol/L 22-32 Anion Gap 10.0 mmol/L 2-11 111 Glucose 99 mg/dL 70-100 112 BUN 16 mg/dL 6-24 Creatinine 0.90 mg/dL 0.50-1.40 One Over Creatinine 1.10 BUN/Creatinine Ratio 17.8 8-20 Calcium 9.6 mg/dL 8.1-9.9 113 Total Protein 7.1 GM/DL 6.2-8.1 Albumin 4.1 GM/DL 3.2-5.2 Globulin 3.0 GM/DL 2-4 Albumin/Globulin Ratio 1.4 1-3 Bilirubin Total 0.5 mg/dL 0.4-1.5 114 Alkaline Phosphatase 73 U/L 30-110 Alt (SGPT) 26 U/L 14-54 Ast (Sgot) 34 U/L 12-42 eGFR Non- 66.0 > 60 eGFR 79.8 > 60 115 Iron & Iron Binding 01/20/2009 [facility] Iron Total 91 g/dL 28-170 [address] [place] [address] [phone] Unsaturated Iron Binding 287 g/dL Total Iron Binding Capacity 378 g/dL 250-450 % Iron Saturation 24 % 15-55 Laboratory test 01/20/2009 [facility] Ferritin 65 NG/ML 11.0- 307 finding [address] [place] [address] [phone] Vitamin B12 326 pg/mL [phone] Carcino Embryonic Antigen 1.47 NG/ML 0-5 116 Protein 01/20/2009 [facility] Albumin 3.80 GM/DL 3.0-4.35 Electrophoresis Serum [address] [place] [address] [phone] Alpha 1 0.19 GM/DL 0.09-0.33 Alpha 2 1.074 GM/DL 0.59-1.18 Beta 1.02 GM/DL 0.68-1.02 Gamma 1.26 GM/DL 0.76-1.60 Albumin % 52.1 % 46-63 Alpha 1 % 2.6 % 1.2-5.3 Alpha 2 % 14.7 % 9-17 Beta % 14.0 % 10-16 Gamma % 17.3 % 12-22 A/G Ratio 1.1 0.9-2 Total Protein 7.3 GM/DL 6.2-8.1 Spep Comments (SEE NOTE) 117 Comp Metabolic Panel 01/20/2009 [facility] Sodium 138 mmol/L 135-[address] [place], [place] [id number] [phone] Potassium 3.5 mmol/L 3.5-5.0 Chloride 103 mmol/L 101-111 Co2 (Carbon Dioxide) 27.0 mmol/L 22-32 Anion Gap 8.0 mmol/L 2-11 118 Glucose 100 mg/dL 70-100 119 BUN 15 mg/dL 6-24 Creatinine 1.00 mg/dL 0.50-1.40 One Over Creatinine 1.00 BUN/Creatinine Ratio 15.0 8-20 Calcium 9.4 mg/dL 8.1-9.9 120 Total Protein 7.2 GM/DL 6.2-8.1 Albumin 4.0 GM/DL 3.2-5.2 Globulin 3.2 GM/DL 2-4 Albumin/Globulin Ratio 1.3 1-3 Bilirubin Total 0.7 mg/dL 0.4-1.5 121 Alkaline Phosphatase 74 U/L 30-110 Alt (SGPT) 28 U/L 14-54 Ast (Sgot) 34 U/L 12-42 eGFR Non- 58.4 > 60 eGFR 70.7 > 60 122 Lipid Profile 01/20/2009 [facility] Triglyceride 317 mg/dL High 40-200 (Trig/Chol/HDL) [address] [place] [address] [phone] Cholesterol 247 mg/dL High Less Than 200 123 High Density Lipoprotein 35 mg/dL Low 40-60 124 Cholesterol/HDL Ratio 7.06 AVERAGE High 1-4.44 Low Density Lipoprotein 149 mg/dL High Less Than 100 125 Surgical 03/04/2008 [facility] Surgical [address] Pathology <SEE NOTE> [place] [address] [phone] Comp 03/04/2008 [facility] Sodium 134 mmol/L Low [address] -14 [place] [address] [phone] Potassium 3.6 mmol/L 3.5-5.0 Chloride 98 mmol/L Low 101-111 Co2 (Carbon Dioxide) 30.0 mmol/L 22-32 Anion Gap 6.0 mmol/L 2-11 127 Glucose 83 mg/dL 70-100 128 BUN 7 mg/dL 6-24 Creatinine 0.66 mg/dL 0.50-1.40 One Over Creatinine 1.50 BUN/Creatinine Ratio 10.6 8-20 Calcium 9.2 mg/dL 8.1-9.9 129 Total Protein 7.1 GM/DL 6.2-8.1 Albumin 3.5 GM/DL 3.2-5.2 Globulin 3.6 GM/DL 2-4 Albumin/Globulin Ratio 1.0 1-3 Bilirubin Total 0.6 mg/dL 0.4-1.5 Alkaline Phosphatase 97 U/L 30-110 Alt (SGPT) 15 U/L 14-54 Ast (Sgot) 28 U/L 12-42 Laboratory test 03/04/2008 [facility] Carcino 41.68 High 0-5 [address] Embryonic NG/[place] [address] Antigen [phone] Iron & Iron 02/27/2008 [facility] Iron Total 20 g/dL Low 28- 170 [address] [place] [address] [phone] Unsaturated Iron Binding 350 g/dL Total Iron Binding Capacity 370 g/dL 250-450 % Iron Saturation 5 % Low 15-55 Laboratory test 02/27/2008 [facility] Ferritin < 10 NG/ML Low 11.0-[address] [place] [address] [phone] Erythrocyte Sed Rate 59 MM/HR High 0-40 Comp Metabolic Panel 02/27/2008 [facility] Sodium 137 mmol/L 135-[address] [place] [address] [phone] Potassium 3.5 mmol/L 3.5-5.0 Chloride 101 mmol/L 101-111 Co2 (Carbon Dioxide) 27.0 mmol/L 22-32 Anion Gap 9.0 mmol/L 2-11 132 Glucose 134 mg/dL High 70-100 133 BUN 11 mg/dL 6-24 Creatinine 0.80 mg/dL 0.50-1.40 One Over Creatinine 1.20 BUN/Creatinine Ratio 13.8 8-20 Calcium 9.5 mg/dL 8.1-9.9 134 Total Protein 6.7 GM/DL 6.2-8.1 Albumin 3.6 GM/DL 3.2-5.2 Globulin 3.1 GM/DL 2-4 Albumin/Globulin Ratio 1.2 1-3 Bilirubin Total 0.3 mg/dL Low 0.4-1.5 Alkaline Phosphatase 105 U/L 30-110 Alt (SGPT) 15 U/L 14-54 Ast (Sgot) 24 U/L 12-42 Protein 02/27/2008 [facility] Albumin 3.04 GM/DL 3.0-4.35 Electrophoresis Serum [address] [place] [address] [phone] Alpha 1 0.20 GM/DL 0.09-0.33 Alpha 2 0.98 GM/DL 0.59-1.18 Beta 1.08 GM/DL High 0.68-1.02 Gamma 1.40 GM/DL 0.76-1.60 Albumin % 45.4 % Low 46-63 Alpha 1 % 3.0 % 1.2-5.3 Alpha 2 % 14.6 % 9-17 Beta % 16.1 % High 10-16 Gamma % 20.9 % 12-22 A/G Ratio 0.8 Low 0.9-2 Total Protein 6.7 GM/DL 6.2-8.1 Spep Comments (SEE NOTE) 135 CBC With 02/19/2008 [facility] White Blood 11.9 CUMM High 4.8- 10.8 Manual Diff [address] [place] [address] [phone] Red Cell Count 4.54 CUMM 4.2-5.4 Hemoglobin [...] Target Cells FEW Stomatocytes FEW Laboratory test 02/19/2008 [facility] Hemoglobin A1c 5.8 % < 6.[address] [place] [address] [phone] Comp Metabolic 01/29/2008 [facility] Sodium 139 135-[address] mmol/[place] [address] [phone] Potassium 4.1 mmol/L 3.5-5.0 Chloride 99 mmol/L Low 101-111 Co2 (Carbon Dioxide) 32.0 mmol/L 22-32 Anion Gap 8.0 mmol/L 2-11 137 BUN 13 mg/dL 6-24 Creatinine 0.9 mg/dL 0.5-1.4 One Over Creatinine 1.11 BUN/Creatinine Ratio 14.4 8-20 Calcium 9.4 mg/dL 8.1-9.9 138 Albumin 3.5 GM/DL 3.2-5.2 Globulin 4.0 GM/DL 2-4 Albumin/Globulin Ratio 0.9 Low 1-3 Bilirubin Total 0.5 mg/dL 0.4-1.5 Alkaline Phosphatase 94 U/L 30-110 Alt (SGPT) 14 U/L 14-54 Ast (Sgot) 25 U/L 12-42 Glucose 84 mg/dL 70-100 139 Total Protein 7.5 GM/DL 6.2-8.1 Lipid Profile 01/29/2008 [facility] Triglyceride 311 mg/dL High 40-200 (Trig/Chol/HDL) [address] [place] [address] [phone] Cholesterol 226 mg/dL High Less Than 200 140 Cholesterol/HDL Ratio 7.79 AVERAGE High 1-4.44 Low Density Lipoprotein 135 mg/dL High Less Than 100 141 High Density Lipoprotein 29 mg/dL Low 40-60 142 Laboratory test 01/29/2008 [facility] TSH 1.71 MIU/ML 0.34- 5.[address] [place] [address] [phone] CBC With Manual 01/29/2008 [facility] White Blood 10.8 CUMM 4.8-10.[address] [place] [address] [phone] Red Cell Count 4.47 CUMM 4.2-5.4 Hemoglobin [...] Neutrophil Count 6.8 Anisocytosis SLIGHT Laboratory test 01/29/2008 [facility] Hemoglobin A1c 6.2 % High <6.0 [address] [place] [address] [phone] Vitamin D, 25 01/29/2008 [facility] 25-Hydroxy <4.0 () Hydroxy [address] Vitamin D2 ng/[place] [address] [phone] 25-Hydroxy Vitamin D3 35 ng/mL () 25-Hydroxy Vitamin D Total 35 ng/mL () 144 1 *Ascorbic acid is present which may interfere with detection of blood. 2 [facility] Severe Sepsis and Septic Shock Management Bundle Measure requires all lactic acids initially measuring >2.0 mmol/L be repeated. 3 Please note: The following may produce a false positive D Dimer test: - Rheumatoid factor greater than 60 IU/ml - Plasma hemoglobin greater than 0.05 gm/dl - Bilirubin greater than 50 mg/dl - Lipids greater than 1000 mg/dl - FDP greater than 20 ug/ml 4 Because ethnic data is not always [...] 5 Kidney failure <15 (or dialysis) 5 SEE RESULT BELOW Name: FRANCISCA COBURN : [address]: Wanda Kraus MD Acct: [id number] Unit: [id number] AGE: 77 Location: [place] [address] Re11/06/17 SEX: F Status: ADM IN SPEC: [id number] JUAN ANTONIO: 11/06/17 [facility] DR: Carlos Rhodes MD REQ: [id number] RECD: 11/06/17 STATUS: MARYANN FLORES DR: Echo Rivero POSTAL TRANSPORTATION CLERK _ SOURCE: BLOOD,VENO SPDESC: ORDERED: Blood Cult Procedure Result Reported Site Aerobic Culture Bottle Final 11/11/17- 55 ML No Growth Day 5 Anaerobic Culture Bottle Final 11/11/17- 0855 ML No Growth Day 5 * ML - Main Lab . END OF REPORT DEPARTMENT OF PATHOLOGY, [address] [place] [address] Riky Samayoa M.D. Director [facility] # [id number] 6 Acute inflammation: >10.00 7 Because ethnic data is not always readily [...] 15-29 5 Kidney failure <15 (or dialysis) 8 Acute inflammation: >10.00 9 [facility] Severe Sepsis and Septic Shock Management Bundle Measure requires all lactic acids initially measuring >2.0 mmol/L be repeated. 10 Because ethnic data is not always [...] (or dialysis) 11 Acute inflammation: >10.00 12 >100 to <200 pg/mL: likely compensated congestive heart failure (CHF) 200 to 400 pg/mL: likely moderate CHF >400 pg/mL: likely moderate to severe CHF 13 [employer] Operator: [id number] 14 SEE RESULT BELOW Name: FRANCISCA COBURN : [address]: Heriberto Mejias MD Acct: [id number] Unit: [id number] AGE: 77 Location: ED Re06/15/17 SEX: F Status: REG ER SPEC: [id number] JUAN ANTONIO: 06/15/17-1305 [facility] DR: Heriberto Mejias MD REQ: [id number] RECD: 06/15/17 STATUS: MARYANN FLORES DR: Echo Rivero POSTAL TRANSPORTATION CLERK _ SOURCE: [facility]: ORDERED: Flu A B Request Procedure Result Reported Site Rapid Influenza A B Request Final 06/15/17- 132 ML Specimen received for Influenza A/B Molecular testing * ML - Main Lab . END OF REPORT DEPARTMENT OF PATHOLOGY, [address] [place] [address] Riky Samayoa M.D. Director [facility] # [id number] 15 Because ethnic data is not always [...] (or dialysis) 16 Acute inflammation: >10.00 17 Result TnIDx:0.05 Called to [id number] at: 13:32:38 by:[email or web address] Read back by: [id number] 18 >100 to <200 pg/mL: likely compensated congestive heart failure (CHF) 200 to 400 pg/mL: likely moderate CHF >400 pg/mL: likely moderate to severe CHF 19 [facility] Severe Sepsis and Septic Shock Management Bundle Measure requires all lactic acids initially measuring >2.0 mmol/L be repeated. 20 Because ethnic data is not always [...] 5 Kidney failure <15 (or dialysis) 21 Acute inflammation: >10.00 22 Because ethnic data is not always readily [...] 15-29 5 Kidney failure <15 (or dialysis) 23 Desirable: <150 Borderline High: 150-199 High: 200-499 Very High: >500 24 Desirable: <200 Borderline High: 200-239 High: >239 25 Low: <40 Desirable: 40-60 High: >60 26 Desirable: <100 Near Optimal: 100-129 Borderline High: 130-159 High: 160-189 Very High: >189 27 Desirable <150 Borderline high 150-199 High 200-499 Very High >500 28 Desirable <200 Borderline high 200-239 High >239 29 Low <40 Desirable: 40-60 High: >60 30 Desirable: <100 mg/dL Near Optimal: 100-129 mg/dL Borderline High: 130-159 mg/dL High: 160-189 mg/dL Very High: >189 mg/dL 31 Because ethnic data is not always readily [...] 15-29 5 Kidney failure <15 (or dialysis) 32 Desirable <150 Borderline high 150-199 High 200-499 Very High >500 33 Desirable <200 Borderline high 200-239 High >239 34 Low <40 Desirable: 40-60 High: >60 35 Desirable: <100 mg/dL Near Optimal: 100-129 mg/dL Borderline High: 130-159 mg/dL High: 160-189 mg/dL Very High: >189 mg/dL 36 Because ethnic data is not always [...] 5 Kidney failure <15 (or dialysis) 37 *Ascorbic acid is present which may interfere with detection of blood. 38 RUN DATE: 02/14/14 [facility] LAB LIVE PAGE 1 RUN TIME: [address] [place] [address] Specimen Inquiry Name: FRANCISCA COBURN : [address]: Jose Marin MD Acct: [id number] Unit: [id number] AGE: 74 Location: [facility] Re02/12/14 SEX: F Status: REG REF SPEC: [id number] JUAN ANTONIO: 02/12/14-1199 [facility] DR: Jose Marin MD REQ: [id number] RECD: 02/12/14 STATUS: MARYANN FLORES DR: Alexi Kim III, MD _ SOURCE: URINE SPDESC: ORDERED: Urine Culture Procedure Result Verified Site Urine Culture Final 02/14/14- 0807 ML Organism 1 ESCHERICHIA COLI Hoffman Count 75-100,000 (Many) CFU/ML Organism 2 ENTEROCOCCUS SPECIES GP D Hoffman Count >100,000 (Many) CFU/ML 1. ESCHERICHIA COLI [...] performed at Main Lab DEPARTMENT OF PATHOLOGY, [address] [place] [address] Riky Samayoa M.D. Director [facility] # [id number] RUN DATE: 02/14/14 [facility] LAB LIVE PAGE 2 RUN TIME: [address] [place] [address] Specimen Inquiry Patient: FRANCISCA COBURN [id number] (Continued) Specimen: [id number] Collected: 02/12/14-1199 Received: 02/12/14-1251 (Continued) Procedure Result Verified Site Urine Culture Final (continued) 02/14/14- 0807 2. ENTEROCOCCUS SPECIES GP D (continued) M.I.C. RX --------- ------ Gentamicin High Level S Levofloxacin 1 S Linezolid 2 S Nitrofurantoin <=16 S * Quinupristin/Dalfopristin 8 R * Streptomycin High Level S Tetracycline >=16 R Tigecycline <=0.12 S Vancomycin 1 S Imipenem-Deduced S * Ampicillin/Sulbactam-Deduced S * These antibiotics are not available in the [facility] Formulary Contact the Microbiology Department for any additional antibiotic reporting. Contact the Microbiology Department for any additional antibiotic reporting. END OF REPORT * ML=Testing performed at Main Lab DEPARTMENT OF PATHOLOGY, [address] [place] [address] Riky Samayoa M.D. Director [facility] # [id number] SURGERY DATE: 02/17/14 40 Because ethnic data is not always [...] 5 Kidney failure <15 (or dialysis) 41 PT IS FASTING 42 Desirable <150 Borderline high 150-199 High 200-499 Very High >500 43 Desirable <200 Borderline high 200-239 High >239 44 Low <40 Desirable: 40-60 High: >60 45 Desirable <100 Near Optimal 100-129 Borderline high 130-159 High 160-189 Very High >189 46 Because ethnic data is not always [...] 5 Kidney failure <15 (or dialysis) 47 -- REFERENCE VALUE -- 25-HYDROXY D TOTAL (D2+D3) Optimum levels in the healthy population are 20-50, patients with bone disease may benefit from higher levels within this range. Test Performed by: [place] [address] Mash Preparatory Operator: Souleymane Weinstein III, M.D. 48 Because ethnic data is not always readily [...] 15-29 5 Kidney failure <15 (or dialysis) 49 Reference Range and Interpretation: TnI (ng/mL) Interpretation Less Than 0.06 ng/mL Not supportive of diagnosis of ME 0.06 - 0.50 ng/mL Indeterminate: suggest serial studies if clinically indicated. Greater than 0.5 ng/mL Consistent with diagnosis of ME 50 Therapeutic target for the treatment of diabetes Mellitus patients is <7% HBA1C, and in selective patients <6.0%.Please refer to [place] [employer] Diabetic care guidelines for further information. 51 HDL Interpretation: Undesirable: High Risk: Less than 40 MG/DL Desirable: Low Risk: Greater than 60 MG/DL 52 LDL Interpretation: Low Risk Optimal Level: LDL Less than 100 MG/DL Near or Above Optimal: LDL 100-129 MG/DL Borderline High Risk: LDL 130-159 MG/DL High Risk: LDL 160-189 MG/DL Very High Risk: LDL Greater than 189 MG/DL 53 Because ethnic data is not always readily [...] 15-29 5 Kidney failure <15 (or dialysis) 54 PT IS FASTING 55 RUN DATE: 03/18/12 [facility] LAB LIVE PAGE 1 RUN TIME: [address] [place] [address] Specimen Inquiry Name: MELLISSAFRANCISCA Canela : [address]: Cuogn Lorenzo MD Acct: [id number] Unit: [id number] AGE: 72 Location: [facility] Re03/14/12 SEX: F Status: REG REF SPEC: [id number] JUAN ANTONIO: 03/14/12- [facility] DR: Cuong Lorenzo MD REQ: [id number] RECD: 03/15/12 STATUS: ASHLY FLORES DR: Abram [...] performed at Main Lab DEPARTMENT OF PATHOLOGY, [address] [place] [address] Riky Samayoa M.D. Director [place] [employer] [facility] #[id number] RUN DATE: 03/18/12 [facility] LAB LIVE PAGE 2 RUN TIME: [address] [place] [address] Specimen Inquiry Patient: FRANCISCA COBURN [id number] (Continued) GROSS DESCRIPTION (Continued) Signed (signature on file) Riky Samayoa MD 1404 END OF REPORT * ML=Testing performed at Main Lab DEPARTMENT OF PATHOLOGY, [facility] [employer] [place] [id number] Riky Samayoa M.D. Director [facility] Permit #[id number] CHOLESTEROL INTERPRETATION: Desirable: Less than 200 [...] a combined acid base disorder. . 60 A metabolite of Naproxen, O-desmethylnaproxen, has been shown to interfere with the Jendrassik-Agusto method for measuring total bilirubin. Samples from patients who have taken Naproxen have shown spurious elevation in total bilirubin levels. 61 Because ethnic data is not always readily [...] 15-29 5 Kidney failure <15 (or dialysis) 62 THERAPEUTIC TARGET FOR THE TREATMENT OF DIABETES MELLITUS PATIENTS IS <7% HBA1C, AND IN SELECTIVE PATIENTS <6.0%. PLEASE REFER TO [place] [employer] DIABETIC CARE GUIDELINES FOR FURTHER INFORMATION. 63 Test Performed by: [facility] Dpt of Lab Med and Pathology [address] [place] [address] Mash Preparatory Operator: Souleymane Weinstein III, M.D. 64 -- REFERENCE VALUE -- Not present Test Performed by: [facility] D[facility] of Lab Med and Pathology [address] [place] [address] Mash Preparatory Operator: Souleymane Weinstein III, M.D. 65 CHOLESTEROL INTERPRETATION: Desirable: Less than 200 MG/DL Borderline-High Risk: 200-239 MG/DL High-Risk: 240 MG/DL and over 66 HDL INTERPRETATION: Undesirable: High Risk: Less than 40 MG/DL Desirable: Low Risk: Greater than 60 MG/DL 67 LDL INTERPRETATION: Low Risk Optimal Level: LDL Less than 100 MG/DL Near or Above Optimal: LDL 100-129 MG/DL Borderline High Risk: LDL 130-159 MG/DL High Risk: LDL 160-189 MG/DL Very High Risk: LDL Greater than 189 MG/DL 68 CHOLESTEROL INTERPRETATION: Desirable: Less than 200 MG/DL Borderline-High Risk: 200-239 MG/DL High-Risk: 240 MG/DL and over 69 HDL INTERPRETATION: Undesirable: High Risk: Less than 40 MG/DL Desirable: Low Risk: Greater than 60 MG/DL 70 LDL INTERPRETATION: Low Risk Optimal Level: LDL Less than 100 MG/DL Near or Above Optimal: LDL 100-129 MG/DL Borderline High Risk: LDL 130-159 MG/DL High Risk: LDL 160-189 MG/DL Very High Risk: LDL Greater than 189 MG/DL 71 Anion gap measurement may be of limited value in the presence of any alkalosis, especially in a combined acid base disorder. . 72 Because ethnic data is not always [...] 5 Kidney failure <15 (or dialysis) 73 Anion gap measurement may be of limited value in the presence of any alkalosis, especially in a combined acid base disorder. . 74 A metabolite of Naproxen, O-desmethylnaproxen, [...] 5 Kidney failure <15 (or dialysis) 76 Anion gap measurement may be of limited value in the presence of any alkalosis, especially in a combined acid base disorder. . 77 Note change in reference range as of 12/05/07. The change was based on recommendations from the [place] [employer]. 78 A metabolite of Naproxen, O-desmethylnaproxen, has been shown to interfere with the Jendrassik-[place] method for measuring total bilirubin. Samples from [...] on recommendations from the [place] [employer]. 83 A metabolite of Naproxen, O-desmethylnaproxen, has [...] on recommendations from the [place] [employer]. 89 Please note change in [...] 5 Kidney failure <15 (or dialysis) 92 Anion gap measurement may be of limited value in the presence of any alkalosis, especially in a combined acid base disorder. . 93 Note change in reference range as of 12/05/07. The change was based on recommendations from the [place] [employer]. 94 Please note change in reference range effective 07 . 95 A metabolite of Naproxen, O-desmethylnaproxen, has been shown to interfere with the Jendrassik-Agusto method for measuring total bilirubin. Samples from patients who have taken Naproxen have shown spurious elevation in total bilirubin levels. 96 Because ethnic data is not always readily [...] 15-29 5 Kidney failure <15 (or dialysis) 97 SMOKING MAY INCREASE VALUES SERUM LEVELS OF CEA MEASURED USING THE NAEEM DEEPIKA ACCESS IMMUNOASSAY SYSTEM SHOULD NOT BE INTERPRETED ABSOLUTE EVIDENCE OF THE PRESENCE OR ABSENCE OF DISEASE. THE CEA VALUE SHOULD BE USED IN CONJUNCTION WITH OTHER PERTINENT CLINICAL DIAGNOSTIC PROCEDURES. 98 NORMAL ELECTROPHORETIC PATTERN. 99 NORMAL SERUM IMMUNOFIXATION ELECTROPHORETIC PATTERN. NO MONOCLONAL PROTEIN DETECTED. 100 -- REFERENCE VALUE -- Negative at <1:240 Titers lower than 1:240 may be detectable by recombinant CRMP-5 western blot analysis. CRMP-5 western blot analysis will be done by request on stored serum (held 4 weeks). This supplemental testing is recommended in cases of chorea, vision loss, cranial neuropathy and myelopathy. Contact [facility] Inquiry at [phone] ([phone])to add-on CRMP-5-IgG Western Blot, S. Test Performed by: [facility] D[facility] of Lab Med and Pathology [address] [place] [address] Mash Preparatory Operator: Souleymane Weinstein III, M.D. 101 Test Performed by: [facility] D[facility] Lab Med and Pathology [address] [place] [address] Mash Preparatory Operator: Souleymane Weinstein III, M.D. 102 Test Performed by: [facility] Lab Med and Pathology [address] [place] [address] Mash Preparatory Operator: Souleymane Weinstein III, M.D. 103 Test Performed by: [facility] Med and Pathology [address] [place] [address] Mash Preparatory Operator: Souleymane Weinstein III, M.D. 104 Test Performed by: [facility] Med and Pathology [address] [place] [address] Mash Preparatory Operator: Souleymane Weinstein III, M.D. 105 Test Performed by: [facility] Med and Pathology [address] [place] [address] Mash Preparatory Operator: Souleymane Weinstein III, M.D. 106 Test Performed by: [facility] D[facility] Med and Pathology [address] [place] [address] Mash Preparatory Operator: Souleymane Weinstein III, M.D. 107 Anion gap measurement may be of limited value in the presence of any alkalosis, especially in a combined acid base disorder. . 108 Note change in reference range as of 12/05/07. The change was based on recommendations from the [place] [employer]. 109 Please note change in reference range effective 07 . 110 Because ethnic data is not always [...] 5 Kidney failure <15 (or dialysis) 111 Anion gap measurement may be of limited value in the presence of any alkalosis, especially in a combined acid base disorder. . 112 Note change in reference range as of 12/05/07. The change was based on recommendations from the [place] [employer]. 113 Please note change in reference range effective 07 . 114 A metabolite of Naproxen, O-desmethylnaproxen, has been shown to interfere with the Jendrassik-[place] method for measuring total bilirubin. Samples from patients who have taken Naproxen have shown spurious elevation in total bilirubin levels. 115 Because ethnic data is not always readily [...] 15-29 5 Kidney failure <15 (or dialysis) 116 SMOKING MAY INCREASE VALUES SERUM LEVELS OF CEA MEASURED USING THE [employer] ACCESS IMMUNOASSAY SYSTEM SHOULD NOT BE INTERPRETED ABSOLUTE EVIDENCE OF THE PRESENCE OR ABSENCE OF DISEASE. THE CEA VALUE SHOULD BE USED IN CONJUNCTION WITH OTHER PERTINENT CLINICAL DIAGNOSTIC PROCEDURES. 117 NORMAL ELECTROPHORETIC PATTERN. 118 Anion gap measurement may be of limited value in the presence of any alkalosis, especially in a combined acid base disorder. . 119 Note change in reference range as of 12/05/07. The change was based on recommendations from the [place] [employer]. 120 Please note change in reference range effective 07 . 121 A metabolite of Naproxen, O-desmethylnaproxen, has been shown to interfere with the [place] method for measuring total bilirubin. Samples from patients who have taken Naproxen have shown spurious elevation in total bilirubin levels. 122 Because ethnic data is not always readily [...] 15-29 5 Kidney failure <15 (or dialysis) 123 CHOLESTEROL INTERPRETATION: Desirable: Less than 200 MG/DL Borderline-High Risk: 200-239 MG/DL High-Risk: 240 MG/DL and over 124 HDL INTERPRETATION: Undesirable: High Risk: Less than 40 MG/DL Desirable: Low Risk: Greater than 60 MG/DL 125 LDL INTERPRETATION: Low Risk Optimal Level: LDL Less than 100 MG/DL Near or Above Optimal: LDL 100-129 MG/DL Borderline High Risk: LDL 130-159 MG/DL High Risk: LDL 160-189 MG/DL Very High Risk: LDL Greater than 189 MG/DL 126 ----- RUN DATE: 03/05/08 [facility] NMI LIVE PAGE 1 RUN TIME: 1419 Specimen Inquiry RUN USER: INTERFACE -- Name: FRANICSCA COBURN#: [id number] Status: REG REF Re03/04/08 Age/Sex: 68/F Unit#: [id number] Location: [address] [place] [address].O.B. : 40 -- Specimen: [id number] SOUT Spec Date: 03/04/[address]: Joce [...] 03/05/08 1419 -- -- DEPARTMENT OF PATHOLOGY, [address] [place] [address] [facility] Permit #[id number] Riky Samayoa M.D. Director Nghia Vasquez M.D. Software Development Manager Dir ricardo -- 127 Anion gap measurement may be of limited value in the presence of any alkalosis, especially in a combined acid base disorder. . 128 Note change in reference range as of 12/05/07. The change was based on recommendations from the [place] [employer]. 129 Please note change in reference range effective 07 . 130 SMOKING MAY INCREASE VALUES SERUM LEVELS OF CEA MEASURED USING THE NAEEM [employer] ACCESS IMMUNOASSAY SYSTEM SHOULD NOT BE INTERPRETED ABSOLUTE EVIDENCE OF THE PRESENCE OR ABSENCE OF DISEASE. THE CEA VALUE SHOULD BE USED IN CONJUNCTION WITH OTHER PERTINENT CLINICAL DIAGNOSTIC PROCEDURES. 131 PATIENT MAY HAVE RESULTS PER DOCTOR'S AUTHORIZATION. Questions regarding this report should be directed to your doctor. 132 Anion gap measurement may be of limited value in the presence of any alkalosis, especially in a combined acid base disorder. . 133 Note change in reference range as of 12/05/07. The change was based on recommendations from the [place] [employer]. 134 Please note change in reference range effective 07 . 135 INCREASED BETA GLOBULIN- CONSISTENT WITH HYPERLIPO- PROTEINEMIA OR IRON DEFICIENCY. 136 THERAPEUTIC TARGET FOR THE TREATMENT OF DIABETES MELLITUS PATIENTS IS <7% HBA1C, AND IN SELECTIVE PATIENTS <6.0%. PLEASE REFER TO [place] [employer] DIABETIC CARE GUIDELINES FOR FURTHER INFORMATION. 137 Anion gap measurement may be of limited value in the presence of any alkalosis, especially in a combined acid base disorder. . 138 Please note change in reference range effective 07 . 139 Note change in reference range as of 12/05/07. The change was based on recommendations from the [place] [employer]. 140 CHOLESTEROL INTERPRETATION: Desirable: Less than 200 MG/DL Borderline-High Risk: 200-239 MG/DL High-Risk: 240 MG/DL and over 141 LDL INTERPRETATION: Low Risk Optimal Level: LDL Less than 100 MG/DL Near or Above Optimal: LDL 100-129 MG/DL Borderline High Risk: LDL 130-159 MG/DL High Risk: LDL 160-189 MG/DL Very High Risk: LDL Greater than 189 MG/DL 142 HDL INTERPRETATION: Undesirable: High Risk: Less than 40 MG/DL Desirable: Low Risk: Greater than 60 MG/DL 143 THERAPEUTIC TARGET FOR THE TREATMENT OF DIABETES MELLITUS PATIENTS IS <7% HBA1C, AND IN SELECTIVE PATIENTS <6.0%. PLEASE REFER TO [place] [employer] DIABETIC CARE GUIDELINES FOR FURTHER INFORMATION. 144 -- REFERENCE VALUE -- 25-HYDROXY D TOTAL (D2+D3) Optimum levels in the normal population are 25-80 Test Performed by: [facility] D[facility] Lab Med and Pathology [address] [place] [id number] Mash Preparatory Operator: Souleymane Weinstein III, M.D. Procedures Date Code Description Status 01/15/2018 38293 Admin Of Inj Completed 11/07/2017 [id number] Mammogram Completed 08/31/2017 89074 EKG Tracing & Interpretation Completed 06/17/2017 51157 ECHO Transthorasic Realtime 2D W Doppler & Color Flow Completed Hosp 06/16/2017 21481 EKG, Interpretation Only Completed 03/30/2017 [id number] Mammogram Completed 02/27/2017 48536 Diffusing Capacity Completed 02/27/2017 82077 Spirometry Incl Graphic Record Completed 10/27/2016 74882 Admin Of Inj Completed 02/29/2016 42509 Chemotherpy Admin Subcutaneous/Im Non-Hormonal Completed Anti-Neoplastic 05/11/2015 07536 Chemotherpy Admin Subcutaneous/Im Non-Hormonal Completed Anti-Neoplastic 04/01/2015 [id number] Bone Mineral Density Test Completed 04/01/2015 [id number] Mammogram Completed 03/31/2015 34656 Pulmonary Stress Test Simple Completed 10/07/2014 26939 Admin Of Inj Completed 09/23/2014 08209 Pulmonary Stress Test Simple Completed 04/20/2014 07897 Admin Of Inj Completed 03/30/2014 61941 Rad Exam; Hip Unilat Completed 03/30/2014 95012 Rad Exam; Pelvis Completed 02/17/2014 45710 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 02/17/2014 03654 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 02/12/2014 02297 Spirometry Incl Graphic Record Completed 02/09/2014 75597 Spirometry Incl Graphic Record, Timed Expiratory Flow Completed Rate 02/04/2014 31244 EKG Tracing & Interpretation Completed 12/29/2013 51077 Rad Exam; Hip Unilat Completed 12/29/2013 27301 Rad Exam; Pelvis Completed 10/06/2013 70609 Chemotherpy Admin Subcutaneous/Im Non-Hormonal Completed Anti-Neoplastic 10/06/2013 32625 Admin Of Inj Completed 09/29/2013 17677 Rad Exam; Hip Unilat Comp Completed 09/29/2013 70388 Rad Exam; Pelvis Completed 08/25/2013 38747 Pulmonary Function><Bronchodilator Completed 04/14/2013 90930 Rad Exam; Pelvis Completed 04/14/2013 99993 Rad Exam; Hip Unilat Completed 02/17/2013 [id number] Mammogram Completed 02/17/2013 376703745 Bone Mineral Density Test Completed 01/06/2013 22457 Rad Exam; Hip Unilat Completed 01/06/2013 49047 Rad Exam; Pelvis Completed 10/14/2012 38727 Rad Exam; Hip Unilat Completed 10/14/2012 41111 Rad Exam; Wrist Limited, 2 Views Completed 10/14/2012 08459 Rad Exam; Pelvis Completed 09/12/2012 35281 Open TX Of Femoral FX,Promimal End,Neck Internal Completed Fixation 09/12/2012 78547 Open TX Of Femoral FX,Promimal End,Neck Internal Completed Fixation 09/12/2012 75462 Closed Treatment Distal Radial FX W/Manipulation Completed 03/20/2012 [id number] Colonoscopy Completed 01/25/2011 [id number] Mammogram Completed 01/25/2011 [id number] Bone Mineral Density Test Completed 02/04/2010 97750 Admin Of Inj Completed 09/29/2009 09669 Pulmonary Function><Bronchodilator Completed 06/23/2009 76124 EKG, Interpretation Only Completed 03/13/2008 29440 EKG, Interpretation Only Completed 03/04/2008 [id number] Colonoscopy Completed Encounters Type Date Location Provider Dx Diagnosis Office Visit 02/25/2018 Mita Garcia44.1 Chronic obstructive 1:20p Medicine - N.P. 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 M.D. hip M70.62 Trochanteric bursitis, left hip Z96.642 Presence of left artificial hip joint M76.02 Gluteal tendinitis, left hip Office Visit 01/01/2018 1:00p Mita Garcia44.1 Chronic Medicine - N.P. obstructive [place] pulmonary disease w (acute) exacerbation M25.552 Pain in left hip Office Visit 11/16/2017 2:00p [employer] Internal Angie J44.1 Chronic Medicine - Yolande Zimmer obstructive [place] pulmonary disease w (acute) exacerbation I10 Essential (primary) hypertension Office Visit 11/13/2017 11:18a [facility] [place] J44.1 Chronic Assoc,claire Castillo DO obstructive Hospitalists pulmonary disease w (acute) exacerbation J96.21 Acute and chronic respiratory failure with hypoxia I10 Essential (primary) hypertension E78.5 Hyperlipidemia, unspecified F41.9 Anxiety disorder, unspecified Office Visit 11/12/2017 11:17a [facility] Wanda J96.21 Acute and chronic Assoc,claire Montaño M.D. respiratory Hospitalists failure with hypoxia J44.1 Chronic obstructive pulmonary disease w (acute) exacerbation I10 Essential (primary) hypertension E78.5 Hyperlipidemia, unspecified Office Visit 11/11/2017 11:17a [facility] Wanda J96.21 Acute and chronic Assoc,claire Montaño M.D. respiratory Hospitalists failure with hypoxia J44.1 Chronic obstructive pulmonary disease w (acute) exacerbation I10 Essential (primary) hypertension Office Visit 11/10/2017 11:17a [facility] Wanda J44.1 Chronic Assoc,claire Montaño M.D. obstructive Hospitalists pulmonary disease w (acute) exacerbation J96.21 Acute and chronic respiratory failure with hypoxia I10 Essential (primary) hypertension Office Visit 11/09/2017 11:16a [facility] Wanda J96.21 Acute and chronic Assoc,claire Montaño M.D. respiratory Hospitalists failure with hypoxia J44.1 Chronic obstructive pulmonary disease w (acute) exacerbation I10 Essential (primary) hypertension Office Visit 11/08/2017 11:16a [facility] Wanda J44.1 Chronic Assoc,claire Montaño M.D. obstructive Hospitalists pulmonary disease w (acute) exacerbation J96.21 Acute and chronic respiratory failure with hypoxia I10 Essential (primary) hypertension Office Visit 11/08/2017 9:54a Pulmonology And Sabrina J44.1 Chronic Sleep Services Of [place] obstructive [facility] pulmonary disease w (acute) exacerbation Z99.81 Dependence on supplemental oxygen Z87.891 Personal history of nicotine dependence Office Visit 11/07/2017 9:23a Pulmonology And Sabrina J44.1 Chronic Sleep Services Of [place] obstructive [facility] pulmonary disease w (acute) exacerbation E66.01 Morbid (severe) obesity due to excess calories Z87.891 Personal history of nicotine dependence Z99.81 Dependence on supplemental oxygen Office Visit 11/07/2017 11:16a [facility] Wanda J44.0 Chronic Assoc,claire Montaño M.D. obstructive Hospitalists pulmon disease w acute lower resp infct J96.21 Acute and chronic respiratory failure with hypoxia I10 Essential (primary) hypertension Office Visit 11/06/2017 11:15a [facility] Wanda J96.21 Acute and chronic Assoc,claire Montaño M.D. respiratory Hospitalists failure with hypoxia J44.1 Chronic obstructive pulmonary disease w (acute) exacerbation I10 Essential (primary) hypertension Office Visit 11/02/2017 3:20p [facility] Internal Mita Chavez44.1 Chronic Medicine - N.P. obstructive [place] pulmonary disease w (acute) exacerbation I10 Essential (primary) hypertension Office Visit 08/31/2017 3:00p [facility] Renaldo Brunson I50.32 Chronic diastolic Of [facility] Crump, DO (congestive) heart FACC failure I10 Essential (primary) hypertension J44.9 Chronic obstructive pulmonary disease, unspecified I35.0 Nonrheumatic aortic (valve) stenosis E78.5 Hyperlipidemia, unspecified F17.201 Nicotine dependence, unspecified, in remission I71.4 Abdominal aortic aneurysm, without rupture Office Visit 08/14/2017 1:30p Pulmonology And Sabrina J44.9 Chronic Sleep Services Of [place] obstructive [facility] pulmonary disease, unspecified R09.02 Hypoxemia Office Visit 08/03/2017 4:00p [facility] Internal Mita Chavez44.1 Chronic Medicine - N.P. obstructive [place] pulmonary disease w (acute) exacerbation I10 Essential (primary) hypertension E87.1 Hypo-osmolality and hyponatremia M54.5 Low back pain I71.4 Abdominal aortic aneurysm, without rupture I34.9 Nonrheumatic mitral valve disorder, unspecified Office Visit 07/27/2017 [facility] J44.1 Chronic 10:35a Assoc,pc MICHELLE Tavares obstructive Hospitalists pulmonary disease w (acute) exacerbation I50.33 Acute on chronic diastolic (congestive) heart failure I10 Essential (primary) hypertension F41.8 Other specified anxiety disorders Office Visit 07/26/2017 1:32p Pulmonology And Sabrina Z87.891 Personal history Sleep Services Of [place] of nicotine [employer]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 J44.1 Chronic obstructive pulmonary disease w (acute) exacerbation I50.31 Acute diastolic (congestive) heart failure R06.02 Shortness of breath Office Visit 07/26/2017 [facility] J44.1 Chronic 10:34a Assocclaire PA obstructive Hospitalists pulmonary disease w (acute) exacerbation I50.33 Acute on chronic diastolic (congestive) heart failure I10 Essential (primary) hypertension F41.8 Other specified anxiety disorders Office Visit 07/25/2017 [facility] J44.1 Chronic 10:33a Assocclaire PA obstructive Hospitalists pulmonary disease w (acute) exacerbation I50.33 Acute on chronic diastolic (congestive) heart failure I10 Essential (primary) hypertension F41.8 Other specified anxiety disorders Office Visit 07/25/2017 3:43p Pulmonology And Sabrina J44.1 Chronic [facility] Services Of [place] obstructive [employer] pulmonary disease w (acute) exacerbation I50.31 Acute diastolic (congestive) heart failure Z87.891 Personal history of nicotine dependence R06.02 Shortness of breath Z99.81 Dependence on supplemental oxygen Office Visit 07/24/2017 10:31a [facility] Shanti Cody J44.1 Chronic Assoc,pc N.P. obstructive Hospitalists pulmonary disease w (acute) exacerbation I50.33 Acute on chronic diastolic (congestive) heart failure I10 Essential (primary) hypertension F41.8 Other specified anxiety disorders Office Visit 07/23/2017 10:29a [facility] Shanti Cody J44.1 Chronic Assoc,pc N.P. obstructive Hospitalists pulmonary disease w (acute) exacerbation I10 Essential (primary) hypertension F41.8 Other specified anxiety disorders Office Visit 07/22/2017 [facility] J44.1 Chronic 10:28a Assocclaire PA obstructive Hospitalists pulmonary disease w (acute) exacerbation I10 Essential (primary) hypertension F41.8 Other specified anxiety disorders Office Visit 07/21/2017 [facility] Jaylen Pratt J44.1 Chronic 10:27a Assoc,claire Uribe M.D.,FACP obstructive Hospitalists pulmonary disease w (acute) exacerbation I10 Essential (primary) hypertension F41.8 Other specified anxiety disorders Office Visit 07/03/2017 8:00a [facility] Cheyanne Jules, POSTAL TRANSPORTATION CLERK M54.5 Low back pain Office Visit 07/01/2017 8:00a [facility] Cheyanne Jules, POSTAL TRANSPORTATION CLERK M54.5 Low back pain J44.9 Chronic obstructive pulmonary disease, unspecified Office Visit 06/26/2017 8:45a [facility] Karolina Casanovaara, POSTAL TRANSPORTATION CLERK M54.5 Low back pain S22.080A Wedge compression fracture of T11-T12 vertebra, init Office Visit 06/25/2017 Pulmonology And Elsi Burciaga, J44.9 Chronic 2:00p Sleep Services Of N.P. obstructive [employer] pulmonary disease, unspecified Office Visit 06/20/2017 [facility] Elinor Muñoz, S22.080A Wedge 8:15a MDeepDDeep compression fracture of T11-T12 vertebra, init J44.9 Chronic obstructive pulmonary disease, unspecified I50.9 Heart failure, unspecified I10 Essential (primary) hypertension Office Visit 06/19/2017 10:07a [facility] [place] J96.21 Acute and chronic Assoc,claire Castillo DO respiratory Hospitalists failure with hypoxia J44.1 Chronic obstructive pulmonary disease w (acute) exacerbation S22.080A Wedge compression fracture of T11-T12 vertebra, init Office Visit 06/18/2017 10:06a [facility] Stewart Angelo J96.21 Acute and chronic Assoc,claire KLEIN respiratory Hospitalists failure with hypoxia J44.1 Chronic obstructive pulmonary disease w (acute) exacerbation S22.080A Wedge compression fracture of T11-T12 vertebra, init Office Visit 06/17/2017 10:05a [facility] [place] J96.21 Acute and chronic Assoc,claire Castillo DO respiratory Hospitalists failure with hypoxia J44.1 Chronic obstructive pulmonary disease w (acute) exacerbation S22.080A Wedge compression fracture of T11-T12 vertebra, init Office Visit 06/16/2017 10:04a [facility] [place] J96.21 Acute and chronic Assoc,claire Castillo DO respiratory Hospitalists failure with hypoxia J44.1 Chronic obstructive pulmonary disease w (acute) exacerbation S22.080A Wedge compression fracture of T11-T12 vertebra, init Office Visit 06/15/2017 11:15a [facility] Stewart Angelo, J96.21 Acute and chronic Assocclaire MD respiratory Hospitalists failure with hypoxia J44.1 Chronic obstructive pulmonary disease w (acute) exacerbation E87.1 Hypo-osmolality and hyponatremia S22.080A Wedge compression fracture of T11-T12 vertebra, init Office Visit 06/02/2017 10:59a [facility] Stewart Angelo, M48.54xA Collapsed Assoc,claire KLEIN vertebra, NEC, Hospitalists thoracic region, init K59.03 Drug induced constipation E87.1 Hypo-osmolality and hyponatremia M81.0 Age-related osteoporosis w/o current pathological fracture Office Visit 06/01/2017 10:58a [facility] Stewart Angelo, M48.54xA Collapsed Assocclaire MD vertebra, NEC, Hospitalists thoracic region, init K59.03 Drug induced constipation E87.1 Hypo-osmolality and hyponatremia M81.0 Age-related osteoporosis w/o current pathological fracture Office Visit 05/31/2017 10:57a [facility] Stewart Angelo, M48.54xA Collapsed Assclaire nation MD vertebra, NEC, Hospitalists thoracic region, init K59.03 Drug induced constipation E87.1 Hypo-osmolality and hyponatremia M81.0 Age-related osteoporosis w/o current pathological fracture Office Visit 05/30/2017 [facility] Jaylen Pratt M48.54xA Collapsed 10:55a Assocclaire M.D.,FACP vertebra, NEC, Hospitalists thoracic region, init K59.03 Drug induced constipation J44.9 Chronic obstructive pulmonary disease, unspecified M81.0 Age-related osteoporosis w/o current pathological fracture Office Visit 05/29/2017 10:53a [facility] Tiffany M48.54xA Collapsed Assocclaire, DO vertebra, NEC, Hospitalists thoracic region, init K59.03 Drug induced constipation J44.9 Chronic obstructive pulmonary disease, unspecified M81.0 Age-related osteoporosis w/o current pathological fracture Office Visit 05/16/2017 2:40p [employer] Internal Sundar Marlena POSTAL TRANSPORTATION CLERK M54.5 Low back pain Medicine - [place] Office Visit 03/06/2017 1:20p [facility] Internal Mita Chavez44.9 Chronic Medicine - N.P. obstructive [place] pulmonary disease, unspecified M81.0 Age-related osteoporosis w/o current pathological fracture I10 Essential (primary) hypertension E78.00 Pure hypercholesterolemia, unspecified R60.0 Localized edema Z12.31 Encntr screen mammogram for malignant neoplasm of breast Office Visit 02/13/2017 1:00p Pulmonology And Sabrina J44.9 Chronic [facility] Of [place] obstructive [facility] pulmonary disease, unspecified R09.02 Hypoxemia Office Visit 01/24/2017 1:45p Orthopedic Jose Marin, Z96.642 Presence of left Services Of M.D. artificial hip C.M.A. joint M21.752 Unequal limb length (acquired), left femur Office Visit 08/29/2016 2:00p [facility] Internal Alexi EDeep I10 Essential ( primary) Medicine - Yolande Kim hypertension [place] J44.9 Chronic obstructive pulmonary disease, unspecified M81.0 Age-related osteoporosis w/o current pathological fracture Office Visit 08/08/2016 1:00p Pulmonology And Sabrina J44.9 Chronic Sleep Services Of MD ethan Chester [facility] pulmonary disease, unspecified Office Visit 02/29/2016 2:00p [facility] Internal Alexi Escalera I10 Essential Medicine - Yolande Kim (primary) [place] hypertension J44.9 Chronic obstructive pulmonary disease, unspecified M81.0 Age-related osteoporosis w/o current pathological fracture E78.2 Mixed hyperlipidemia Z85.038 Personal history of malignant neoplasm of large intestine Z92.29 Personal history of other drug therapy Office Visit 02/08/2016 1:00p Pulmonology And Sabrina J44.9 Chronic Sleep Services Of MD ethan [place] [facility] pulmonary disease, unspecified Office Visit 01/26/2016 1:30p Orthopedic Jose Marin, Z96.642 Presence of left Services Of M.DDeep artificial hip C.M.A. joint Office Visit 09/28/2015 3:45p Pulmonology And Sabrina J44.9 Chronic Sleep Services Of [facility] pulmonary disease, unspecified J98.4 Other disorders of lung Office Visit 03/31/2015 1:00p Pulmonology And Sabrina J44.9 Chronic [facility] Of [place] obstructive [facility] pulmonary disease, unspecified R09.02 Hypoxemia E66.09 Other obesity due to excess calories Office Visit 03/01/2015 2:00p [facility] Internal Alexi Escalera I1Cassie Essential ( primary) Medicine - Yolande Kim hypertension [place] J44.9 Chronic obstructive pulmonary disease, unspecified M81.0 Age-related osteoporosis w/o current pathological fracture Z12.31 Encntr screen mammogram for malignant neoplasm of breast E78.2 Mixed hyperlipidemia Office Visit 01/25/2015 10:45a Orthopedic Jose Marin, Z96.642 Presence of left Services Of Yolande artificial hip C.M.A. joint M16.12 Unilateral primary osteoarthritis, left hip Z09 Encntr for f/u exam aft trtmt for cond oth than malig neoplm Office Visit 09/28/2014 1:00p Pulmonology And Sabrina 496 COPD Airway Sleep Services Of [facility] [place] Obstruction [facility] Chronic Not Class Elsewhere 799.02 Hypoxemia 278.00 Obesity Unspec Office Visit 06/29/2014 10:45a Orthopedic Jose Marin, 715.95 Osteoarthrosis Services Of Yolande Unspec Genlzd Or C.M.A. Localized Pelvic & Thigh v54.81 Aftercare Following Joint Replacement V43.64 Hip Replacement By Other Means Office Visit 04/20/2014 4:00p [facility] Internal Medicine lAexi Kim, 724.2 Lumbago - Aleja Lanier 733.01 Osteoporosis Senile V87.49 Personal History Of Other Drug Therapy Office Visit 04/13/2014 11:00a Pulmonology And Sabrina 496 COPD Airway [facility] [place] Obstruction [facility] Chronic Not Class Elsewhere 518.89 Lung Disease Other Not Elsewhere Class 799.02 Hypoxemia Office Visit 03/04/2014 1:22p Pulmonology And Sabrina 496 COPD Airway [facility] [place] Obstruction [facility] Chronic Not Class Elsewhere Office Visit 02/26/2014 2:39p Pulmonology And Sabrina 496 COPD Airway [facility] [place] Obstruction [employer] Chronic Not Class Elsewhere 786.05 Shortness Of Breath Office Visit 02/25/2014 2:31p Pulmonology And Sabrina 496 COPD Airway [facility] [place] Obstruction [facility] Chronic Not Class Elsewhere 786.05 Shortness Of Breath Office Visit 02/19[facility]2014 [facility] Airway Assoc,pc [place], N.P. Obstruction Hospitalists Chronic Not Class Elsewhere 401.9 Hypertension Unspec 278.00 Obesity Unspec V43.64 Hip Replacement By Other Means Office Visit 02/18/2014 [facility] COPD Airway Assoc,pc [place], N.P. Obstruction Hospitalists Chronic Not Class Elsewhere 401.9 Hypertension Unspec 278.00 Obesity Unspec V43.64 Hip Replacement By Other Means Office Visit [facility] COPD Airway Assoc,pc N.P. Obstruction Hospitalists Chronic Not Class Elsewhere 401.9 Hypertension Unspec 278.00 Obesity Unspec V43.64 Hip Replacement By Other Means Office Visit 02/09/2014 10:15a Pulmonology And Sabrina 496 COPD Airway [facility] [place] [facility]ruction [facility] [facility] Chronic Not Class Elsewhere V72.83 Examination Preoperative Other Spec Office Visit 02/04/2014 2:00p [facility] Hailey Esclaera V72.81 Examination Medicine - Yolande Kim Preoperative [facility] 715.95 Osteoarthrosis Unspec Genlzd Or Localized Pelvic & Thigh 401.1 Hypertension Benign 496 COPD Airway Obstruction Chronic Not Class Elsewhere 272.2 Hyperlipidemia Mixed 733.01 Osteoporosis Senile V04.81 Need For Prophylactic Vaccination & Inoculation/Influenza Office Visit 12/29/2013 10:00a Orthopedic Jose Marin 715.95 Osteoarthrosis Services Of Yolande Unspec Genlzd Or C.M.A. Localized Pelvic & Thigh Office Visit 09/29/2013 9:45a Orthopedic Jose Marin 715.95 Osteoarthrosis Services Of Yolande Unspec Genlzd Or C.M.A. Localized Pelvic & Thigh Office Visit 04/14/2013 9:15a Orthopedic Jose Marin, 820.8 FX Unspec Part Of Services Of Yolande Neck Of Femur Closed C.M.A. Office Visit 02/24/2013 1:20p [facility] Internal Alexi Escalera 496 COPD Airway Nahum Kim M.D. Obstruction Chronic [place] Not Class Elsewhere 733.00 Osteoporosis Unspec 272.2 Hyperlipidemia Mixed 401.1 Hypertension Benign 820.8 FX Unspec Part Of Neck Of Femur Closed Office Visit 01/06/2013 9:00a Orthopedic Jose Marin, 813.42 FX Radius Services Of C.M.A. M.D. (Alone) Distal End Other Closed 820.8 FX Unspec Part Of Neck Of Femur Closed Office Visit 09/15/2012 1:32p [facility] Shanti Escobar, 492.8 Emphysema Other Assoc,pc N.P. Hospitalists 276.1 Hyposmolality & Or Hyponatremia 820.8 FX Unspec Part Of Neck Of Femur Closed 813.42 FX Radius (Alone) Distal End Other Closed Office Visit 09/14/2012 1:31p [facility] Shanti Cody, 492.8 Emphysema Other Assoc,pc N.PDeep Hospitalists 276.1 Hyposmolality & Or Hyponatremia 820.8 FX Unspec Part Of Neck Of Femur Closed 813.42 FX Radius (Alone) Distal End Other Closed Office Visit 09/13/2012 1:31p [facility] Wanda 492.8 Emphysema Other Assoc,pc Yolande Montaño Hospitalists 820.8 FX Unspec Part Of Neck Of Femur Closed 813.42 FX Radius (Alone) Distal End Other Closed Office Visit 09/12/2012 1:30p [facility] Elinor Muñoz, 820.8 FX Unspec Assoc,claire Lanier Part Of Neck Hospitalists Of Femur Closed 813.42 FX Radius (Alone) Distal End Other Closed 492.8 Emphysema Other 276.1 Hyposmolality & Or Hyponatremia Office Visit 09/12/2012 10:00a Orthopedic Services Jose Tomas, 820.8 FX Unspec Part Of C.M.A. M.D. 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 401.1 Hypertension Benign AT Henry Kim M.D. 272.2 Hyperlipidemia Mixed Office Visit 01/18/2011 2:40p DO Not Use [employer] Alexi E. 401.1 Hypertension Benign AT Henry Kim M.D. 272.2 Hyperlipidemia Mixed 496 COPD Airway Obstruction Chronic Not Class Elsewhere 790.21 Impaired Fasting Glucose 733.00 Osteoporosis Unspec V76.10 Screening For Malignant Neoplasm Breast 153.8 Malignant Neoplasm Large Intestine Other Spec Sites V04.81 Need For Prophylactic Vaccination & Inoculation/Influenza Office Visit 07/11/2010 4:00p DO Not Use [employer] Alexi E. 496 COPD Airway AT Henry Kim M.D. Obstruction Chronic Not Class Elsewhere 272.2 Hyperlipidemia Mixed 401.1 Hypertension Benign Office Visit 01/10/2010 11:20a DO Not Use [employer] Alexi E. V72.83 Examination AT Henry Kim M.D. Preoperative Other Spec V72.81 Examination Preoperative Cardiovascular 366.8 Cataract Other 401.9 Hypertension Unspec 496 COPD Airway Obstruction Chronic Not Class Elsewhere 272.2 Hyperlipidemia Mixed Office Visit 09/29/2009 11:40a DO Not Use [employer] Alexi E. 496 COPD Airway AT Henry Kim M.D. Obstruction Chronic Not Class Elsewhere 401.9 Hypertension Unspec 272.2 Hyperlipidemia Mixed Office Visit 06/22/2009 11:40a DO Not Use [employer] Alexi E. 466.0 Bronchitis Acute AT Henry Kim M.D. Office Visit 06/08/2009 2:00p DO Not Use [employer] Alexi E. 401.1 Hypertension Benign AT Henry Kim M.D. Office Visit 03/01/2009 2:30p DO Not Use [employer] Alexi E. 782.3 Edema AT Henry Kim M.D. 401.1 Hypertension Benign Office Visit 02/11/2009 2:30p DO Not Use [employer] Alexi E. 401.1 Hypertension Benign AT Henry Kim M.D. 782.3 Edema Office Visit 10/06/2008 2:15p [facility] Alexi E. 724.5 Backache Unspec Assoc AT Yolande Kim [facility] Office Visit 07/29/2008 2:30p [place] [facility] Alexi E. 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 272.0 Hypercholesterolemia Pure 2:00p Assoc AT Yolande Kim [facility] 401.1 Hypertension Benign V04.81 Need For Prophylactic Vaccination & Inoculation/Influenza Office Visit 01/21/2008 12:00p [facility] Alexi E. 465.9 URI Upper Assoc AT Yolande Kim Respiratory [facility] Infections Acute Unspec Sites Office Visit 07/24/2007 2:30p [place] Alexi E. 250.00 Diabetes Mellitus Assoc AT Yolande Kim W/O Compl Type II [facility] Or Unspec Controlled 733.00 Osteoporosis Unspec 401.1 Hypertension Benign V06.5 Tetanus Diphtheria (DT) V03.82 Streptococcus Pneumoniae Vaccination Spec Other Office Visit 01/22/2007 2:00p [place] Alexi E. 250.00 Diabetes Mellitus Assoc AT Yolande Kim W/O Compl Type II [facility] Or Unspec Controlled 272.0 Hypercholesterolemia Pure 401.1 Hypertension Benign V04.81 Need For Prophylactic Vaccination & Inoculation/Influenza Plan of Treatment Future Appointment(s):09/06/2018 2:00 pm - Echo Rivero, N.P. at [facility] Internal Medicine - Wzisksltq93/23/2018 - Echo Rivero N.Miguelina.Z00.00 Encounter for general adult medical examination without abnoComments:For your routine health maintenance: There is a new shingles vaccine available, Shingrix. This is a series of 2 injections given 2 - 6 months apart. This is available at the pharmacy and I urge you to get this.Your pneumonia immunizations are up to date. You had these in 2007 and 2013. You will not need these again.J44.9 Chronic obstructive pulmonary disease, unspecifiedComments:For your COPD continue your current management.I10 Essential (primary) hypertensionComments: For your high blood pressure: Continue with your current medication. I would like you to monitor your blood pressure at home. If your readings at home are consistently higher than 140/90, please call the office.E78.00 Pure hypercholesterolemia, unspecifiedComments:For your high cholesterol: Continue your current management. I have ordered blood work to check yourcholesterol. You need to fast for 10 hours prior to getting your blood drawn. I will contact you with your results.Z85.038 Personal history of other malignant neoplasm of large intestNew Orders:Hemosure, Ordered: 03/08/18Comments:With your history of colon cancer I would like to get a Hemosure to screen for blood in the stool. The office will contact you with your results.M81.0 Age-related osteoporosis without current pathological fractuComments:For your osteoporosis: You need to be getting between 1,000 - 1,200 mg of Calcium in daily. The bestway to supplement what you get in your diet is to drink Calcium fortified orange juice. If you take a Calcium supplement be sure it has Vitamin D in it to help absorption. It is important to be sure your home environment is safe to avoid risk of falling. Scatter rugs are a hazard. I am ordering a Dexascan.
--- OUTSIDE RECORDS SUMMARY | 2018-03-18 02:31 | XMS REPORT | Continuity of Care Document ---
:1940 External Reference #:[id number] Author Name [place] [place] Care Team Providers Name Role Phone Angie Zimmer MD Primary Care Physician Unavailable Payers Type Date Identification Numbers Payment Provider Subscriber Policy Number: [id number] Medicare Francisca Coburn PayID: [id number] [address] [place] [address] Effective: 2005 Policy Number: [id number] Medicare Francisca Coburn Expires: 2018 PayID: [id number] [address] [place] [address] Effective: 2011 Policy Number: [id number] [facility] Francisca Coburn PayID: [id number] [address] [address] SHAHRIAR Schulz [address] Advance Directives Description No Information Available Problems [...] Nebulizer 07/13/ Active Kit 1units use three Ehco Kit/Tubing/Mout 2018 times a Varn, N.P. hpiece day as needed Ipratropium 07/13/ Active Solution 0.5-2.5(3) 540ml 1 vial in [place]/Albuter 2018 mg/3ML nebulizer Varn, N.P. ol Sulfate [...] Hx Tablets 250mg 6tabs two tabs day [address] 03/07/2018 one, one 4. Varn, N.P. daily till 1 gone Prednisone 02/25/2018 - Hx Tablets 20mg 9tabs 2 tab by [address] 03/03/2018 mouth for 3 4. Varn, N.P. days and then 1 1 tablet by mouth for 3 days and then stop Anoro Ellipta 02/20/2018 - Hx Aerosol 62.5-25 60units 1 inhalation Sabrina 03/08/2018 mcg/Inh daily MD Nemo Azithromycin 01/01/2018 - Hx Tablets 250mg 6tabs two tabs day [address] 01/11/2018 one, one 4. Varn, N.P. daily till 1 gone Prednisone 01/01/2018 - Hx Tablets 20mg 9tabs 2 tab by [address] 01/13/2018 mouth for 3 4. Varn, N.P. days and then 1 1 tablet by mouth for 3 days and then stop Prednisone 11/13/2017 - Hx Tablets 20mg 9tabs 2 tab by [address] 11/25/2017 mouth for 3 4. Cotton, days and then 1 M.D. 1 tablet by mouth for 3 days and then stop Prednisone 11/02/2017 - Hx Tablets 10mg 40tabs 4 tablets by [address] 11/13/2017 mouth for 4 4. Varn, N.P. days 3 1 tablets by mouth for 4 days 2 tablets by mouth for 4 days 1 tablet by mouth for 4 days Azithromycin 11/02/2017 - Hx Tablets 250mg 6tabs two tabs day [address] 11/12/2017 one, one 4. Varn, N.P. daily till 1 gone Irbesartan 08/22/2017 - Hx Tablets 300mg 90tabs 1/2 by mouth [facility] 03/08/2018 every day Yolande Zimmer Proair HFA [...] M5 Sundar 05/22/2017 every six 4. Marlena [employer] hours as 5 needed for pain. Salsalate 05/16/2017 - Hx Tablets 500mg 30tabs one tablet M5 Sundar 06/24/2017 twice daily 4. Marlena, [employer] as needed 5 with food Hydrocodone-Christian 05/16/2017 - Hx Tablets 5-325mg 30tabs take 1 tablet M5 Sundar taminophen 06/24/2017 every 8 hours 4. Marlena [employer] for pain. 5 Zostavax 08/29/2016 - Hx Suspension 13550Mg I1 Alexi Escalera 05/16/2017 Rec t/0.65M 0 Elliot Kim M.D. Silver 02/07/2016 - Hx Tablets 1 po qd Unknown 02/07/2016 Acetaminophen 02/07/2016 - Hx Capsules 500mg 2 by mouth Unknown 06/24/2017 twice a day as needed Fentanyl 03/25/2014 - Hx Patches 72HR 25mcg/H 5units apply one Alexi Escalera 08/27/2014 R patch once Judy, every 3 days M.Terence [place] 03/13/2014 - Hx Tablets 5-325mg 30tabs 1-2 by mouth Dirk 04/10/2014 every 4 to 6 Tomas, hours as M.D. needed Macrobid 02/16/2014 - Hx Capsules 100mg 10caps 1 tab q12hr x Dirk 08/27/2014 5 days Yolande Marin [place] 02/14/2014 - Hx Tablets 5-325mg 100tabs 1 by mouth Dirk 08/27/2014 every 6 Tomas, hours as M.D. needed for pain try to use less and less as soon as possible Ventolin HFA 02/04/2014 - Hx Aerosol 108(90B 1units 2 puffs by Thuan 02/07/2016 ase) mouth four Flowers, [employer]ER mcg/Act times a day as needed Proair [...] two Thuan 03/31/2015 cg/Act puffs into Flowers, [employer]ER lungs twice a day Zithromax Z-Arnoldo 06/22/2009 [...] Hx Tablets 81mg 100tabs 1 PO qd Franniegilbert, 07/29/2008 MD Rangel Vitamin B - Hx [...] CPT Code Status Date Vaccine Lot # [id number] Given 01/18/2018 Influenza Virus Vaccine, Quadrivalent, Split, Preservative Free 84751 Given 01/18/2018 Influenza Virus Vaccine, Quadrivalent, Split, Preservative Free 37450 Given 12/27/2015 Influenza Virus Vaccine, Quadrivalent, Split, Preservative Free 30028 Given 01/28/2015 Influenza Virus 3Yrs & Over 30846 Given 02/04/2014 Flu Vaccine Split Virus Preservative Free For [id number] Indiv 3Yr Older 77939 Given 08/25/2013 Pneumococcal Conjugate Vaccine 13 Valent For [id number] Intramuscular Use [id number] Given 01/18/2011 Fluzone Vaccine [id number] 86490 Given 02/04/2010 Influenza Virus 3Yrs & Over [id number] 16879 Given 04/21/2009 Influenza Virus Vaccine, Pandemic Formulation 45051 Given 01/29/2008 Influenza Virus 3Yrs & Over 20373 Given 01/29/2008 Influenza Virus 3Yrs & Over 92543 Given 07/24/2007 Pneumonia Vaccine [id number] 09001 Given 07/24/2007 Tetanus And Diptheria (Td) For Adult Use Preservative Free 94391 Given 07/24/2007 Tetanus And Diptheria (Td) For Adult Use Preservative Free 30367 Given 01/22/2007 Influenza Virus 3Yrs & Over 04939 Given 01/22/2007 Influenza Virus 3Yrs & Over 88162 Vital Signs Date Vital Result Comment 03/08/2018 [...] Result H/L Range Note Urinalysis Profile 11/06/2017 [facility] Urine Color Yellow [address] [place] [address] [phone] Urine Appearance Clear Urine Specific Bumpass 1.014 N 1.010-1.030 Urine pH 6.0 N 5-9 Urine Urobilinogen Negative Negative Urine Ketones Negative Negative Urine Protein Negative Negative Urine Leukocytes Negative Negative Urine Blood Negative Negative * * Abnormal Negative 1 Urine Nitrite Negative Negative Urine Bilirubin Negative Negative Urine Glucose Negative Negative Laboratory test 11/06/2017 [facility] Lactic Acid 1.8 mmol/L N 0.5-2.0 2 finding [address] [place] [address] [phone] CBC Auto Diff 11/06/2017 [facility] White Blood 8.3 10^3/uL N 3.5-10.[address] [facility] [place] [address] [phone] Red Blood Count 4.44 10^6/uL N 4.00-5.40 [...] Blood Cells % 0.1 Laboratory test 11/06/2017 [facility] D Dimer 245 ng/mL High Less [address] Quantitative Than 230 [place] [address] [phone] Troponin-I (TnI) 0.03 ng/mL <0.04 Comp Metabolic Panel 11/06/2017 [facility] Sodium 136 mmol/L N 135-[address] [place] [address] [phone] Potassium 4.3 mmol/L N 3.5-5.0 Chloride 98 [...] Egfr 66.6 >60 4 Laboratory test 11/06/2017 [facility] Blood Culture SEE RESULT [address] [place] [address] [phone] CBC Auto Diff 09/18/2017 [facility] White Blood 7.5 10^3/uL N 3.5-[address] Count .8 [place] [address] [phone] Red Blood Count 4.36 10^6/uL N 4.0-5.4 [...] Red Blood Cells % 0.1 Inr/Protime 09/18/2017 [facility] Inr 0.92 N 0.77-1.[address] [place] [address] [phone] Laboratory test 09/18/2017 [facility] C Reactive 7.60 mg/L High < 5.00 [address] [place] [address] [phone] Basic Metabolic 08/07/2017 [facility] Sodium 136 Low 139-[address] mmol/[place] [address] [phone] Potassium 4.0 mmol/L N 3.5-5.0 Chloride 99 mmol/L Low 101-111 Co2 Carbon Dioxide 31 mmol/L N 22-32 Anion Gap 6 mmol/L N 2-11 Glucose 116 mg/dL High 70-100 Blood Urea Nitrogen 17 mg/dL N 6-24 Creatinine 0.84 mg/dL N 0.51-0.95 BUN/Creatinine Ratio 20.2 High 8-20 Calcium 9.0 mg/dL N 8.6-10.3 Egfr Non- 65.7 >60 Egfr 84.6 >60 7 Laboratory test 08/07/2017 [facility] C Reactive 65.53 mg/L High < 5.[address] [place] [address] [phone] CBC Auto Diff 07/21/2017 [facility] White Blood 6.7 N 3.5- 10.[address] Count 10^3/[place] [address] [phone] Red Blood Count 4.16 10^6/uL N 4.0-5.4 [...] Blood Cells % 0.1 Laboratory test 07/21/2017 [facility] Lactic Acid 1.2 mmol/L N 0.5-2.0 [address] [place] [address] [phone] Comp Metabolic 07/21/2017 [facility] Sodium 133 mmol/L Low 139 -[address] [place] [address] [phone] Potassium 4.5 mmol/L N 3.5-5.0 Chloride 94 [...] Egfr 83.4 >60 10 Laboratory test 07/21/2017 [facility] Troponin-I (TnI) 0.03 ng/ mL <0.[address] [place] [address] [phone] C Reactive Protein 43.52 mg/L High < 5.00 11 B-Type Natriuretic Peptide BNP 87 pg/mL 12 Inr/Protime 07/21/2017 [facility] Inr 0.95 N 0.77-1.[address] [place] [address] [phone] Laboratory test 07/21/2017 [facility] Partial 37.8 High 26.0- 36.[address] [address] [phone] Rapid Influenza 06/15/2017 [facility] Influenza A NEGATIVE Negative 13 A & B Molecular [address] [place] [address] [phone] Influenza B Molecular NEGATIVE Negative Laboratory test 06/15/2017 [facility] Rapid Influenza SEE RESULT [address] [place] [address] [phone] Comp Metabolic 06/15/2017 [facility] Sodium 127 mmol/L Low 133 -[address] [place] [address] [phone] Potassium 4.3 mmol/L N 3.5-5.0 Chloride 89 [...] Egfr 94.9 >60 15 Laboratory test 06/15/2017 [facility] C Reactive 31.14 mg/L High < 5.00 [address] [place] [address] [phone] Troponin-I (TnI) 0.05 ng/mL High <0.04 17 B-Type Natriuretic Peptide BNP 65 pg/mL 18 Lactic Acid 1.2 mmol/L N 0.5-2.0 19 CBC Auto Diff 06/15/2017 [facility] White Blood 7.0 10^3/uL N 3.5-10.[address] [place] [address] [phone] Red Blood Count 4.13 10^6/uL N 4.0-5.4 [...] Red Blood Cells % 0 Inr/Protime 06/15/2017 [facility] Inr 0.98 N 0.77-1.[address] [place] [address] [phone] Urinalysis Profile 05/29/2017 [facility] Urine Color Yellow [address] [place] [address] [phone] Urine Appearance Clear Urine Specific Bumpass 1.009 Low 1.010-1.030 Urine pH 8.0 N 5-9 Urine Urobilinogen Negative Negative Urine Ketones Negative Negative Urine Protein Negative Negative Urine Leukocytes Negative Negative Urine Blood Negative Negative Urine Nitrite Negative Negative Urine Bilirubin Negative Negative Urine Glucose Negative Negative CBC Auto Diff 05/29/2017 [facility] White Blood 8.4 10^3/uL N 3.5-10.[address] [place] [address] [phone] Red Blood Count 4.58 10^6/uL N 4.0-5.4 [...] Cells % 0 Comp Metabolic Panel 05/29/2017 [facility] Sodium 125 mmol/L Low 133-145 [address] [place] [address] [phone] Potassium 3.7 mmol/L N 3.5-5.0 Chloride 86 [...] 92.1 >60 20 Laboratory test finding 05/29/2017 [facility] Amylase 55 U/L N 29-103 [address] [place] [address] [phone] Lipase 38 U/L N 11.0-82.0 C Reactive Protein 3.25 mg/L N < 5.00 21 Comp Metabolic Panel 03/27/2017 [facility] Sodium 137 mmol/L N 133-145 [address] [place] [address] [phone] Potassium 4.3 mmol/L N 3.5-5.0 Chloride 96 [...] Egfr 75.2 >60 22 Lipid Profile 03/27/2017 [facility] Triglycerides 158 mg/dL 23 (Trig/Chol/HDL) [address] [place] [address] [phone] Cholesterol 194 mg/dL 24 HDL Cholesterol 54.9 mg/dL 25 LDL Cholesterol 108 mg/dL 26 Lipid Profile 03/28/2016 [facility] Triglycerides 200 mg/dL N 27 (Trig/Chol/HDL) [address] [place] [address] [phone] Cholesterol 198 mg/dL N 28 HDL Cholesterol 46.2 mg/dL N 29 LDL Cholesterol 112 mg/dL N 30 Comp Metabolic Panel 03/28/2016 [facility] Sodium 135 mmol/L N 133-145 [address] [place] [address] [phone] Potassium 4.3 mmol/L N 3.5-5.0 Chloride 97 [...] 74.5 N >60 31 Lipid Profile 04/01/2015 [facility] Triglycerides 231 mg/dL N 32 (Trig/Chol/HDL) [address] [place] [address] [phone] Cholesterol 195 mg/dL N 33 HDL Cholesterol 45.1 mg/dL N 34 LDL Cholesterol 104 mg/dL N 35 Comp Metabolic Panel 04/01/2015 [facility] Sodium 130 mmol/L Low 133-145 [address] [place] [address] [phone] Potassium 4.3 mmol/L N 3.5-5.0 Chloride 92 [...] 65.0 N >60 36 Urinalysis Profile 02/12/2014 [facility] Urine Color Rosio N [address] [place] [address] [phone] Urine Appearance Cloudy N Urine Specific Bumpass 1.017 N 1.010-1.030 Urine pH 7.0 N 5-9 Urine Urobilinogen Negative N Negative Urine Ketones Negative N Negative Urine Protein Negative N Negative Urine Leukocytes Negative N Negative Urine Blood Negative N Negative * * Abnormal Negative 37 Urine Nitrite Negative N Negative Urine Bilirubin Negative N Negative Urine Glucose Negative N Negative Urine Culture And 02/12/2014 [facility] Urine Culture (SEE NOTE ) 38 Sensitivities [address] [place] [address] [phone] CBC No Diff 02/11/2014 [facility] White Blood 8.4 10^3/uL N 4.8-[address] Count .8 [place] [address] [phone] Red Blood Count 4.77 10^6/uL N 4.0-5.4 Hemoglobin 15.1 g/dL N 12.0-16.0 Hematocrit 44 % N 35-47 Mean Corpuscular Volume 93 fL N 80-97 Mean Corpuscular Hemoglobin 32 pg High 27-31 Mean Corpuscular HGB Conc 34 g/dL N 31-36 Red Cell Distribution Width 13 % N 10.5-15 Platelet Count 261 10^3/uL N 150-450 Mean Platelet Volume 9 um3 N 7.4-10.4 Inr/Protime 02/11/2014 [facility] Inr 0.92 N 0.85-1.06 [address] [place] [address] [phone] Basic Metabolic 02/11/2014 [facility] Sodium 131 mmol/L Low 133-145 Panel [address] [place] [address] [phone] Potassium 4.8 mmol/L N 3.7-5.6 Chloride 96 [...] N >60 40 Type & Screen 02/11/2014 [facility] Patient Blood Type O Positive N [address] [place] [address] [phone] Antibody Screen NEGATIVE N Lipid Profile 08/18/2013 [facility] Triglycerides 186 mg/dL N 41, 42 (Trig/Chol/HDL) [address] [place] [address] [phone] Cholesterol 158 mg/dL N 43 HDL Cholesterol 41.5 mg/dL N 44 LDL Cholesterol 79 mg/dL N 45 Comp Metabolic Panel 08/18/2013 [facility] Sodium 132 mmol/L Low 133-[address] [place] [address] [phone] Potassium 4.3 mmol/L N 3.7-5.6 Chloride 97 [...] N >60 46 Vitamin D, 25 08/18/2013 [facility] 25-Hydroxy Vitamin <4.0 ng/ mL N Hydroxy [address] [place] [address] [phone] 25-Hydroxy Vitamin D3 44 ng/mL N 25-Hydroxy Vitamin D Total 44 ng/mL N 47 Laboratory test 10/11/2012 [facility] Inr 1.82 High 0.87-0.97 finding [address] [place] [address] [phone] Laboratory test 10/03/2012 [facility] Inr 2.24 High 0.87-0.97 finding [address] [place] [address] [phone] CBC Auto Diff 09/12/2012 [facility] White Blood 9.0 4.8-10.[address] Count 10^3/[place] [address] [phone] Red Blood Count 4.86 10^6/uL 4.0-5.4 Hemoglobin [...] Red Blood Cells % 0.1 Inr/Protime 09/12/2012 [facility] Inr 0.87 0.87-0.97 [address] [place] [address] [phone] Comp Metabolic 09/12/2012 [facility] Sodium 127 mmol/L Low 133 -145 Panel [address] [place] [address] [phone] Potassium 4.4 mmol/L 3.5-5.0 Chloride 93 mmol/L [...] Egfr 56.8 >60 48 Laboratory test 09/12/2012 [facility] Troponin I 0.02 ng/mL 0 -0.06 [address] [place] [address] [phone] Type & Screen 09/12/2012 [facility] Patient Blood O Positive [address] [place] [address] [phone] Antibody Screen NEGATIVE Laboratory test 08/19/2012 [facility] Hemoglobin A1c 5.5 % Less than [address] 6.0 [place] [address] [phone] Lipid Profile 08/19/2012 [facility] Triglycerides 203 High 40- 200 (Trig/Chol/HDL) [address] mg/[place] [address] [phone] Cholesterol 173 mg/dL Less than 200 HDL Cholesterol 46 mg/dL 40-60 51 Cholesterol/HDL Ratio 3.8 Average 1-4.44 LDL Cholesterol 86.4 mg/dL Less Than 100 52 Comp Metabolic Panel 08/19/2012 [facility] Sodium 133 mmol/L 133-[address] [place] [address] [phone] Potassium 4.3 mmol/L 3.5-5.0 Chloride 97 mmol/L [...] 70.1 >60 53 Lipid Panel - 08/19/2012 [facility] Creatine Kinase 293 U/L High 0-200 [address] [place] [address] [phone] Surgical 03/14/2012 [facility] S RUN [address] DATE: ROSALINE Gupta50 [phone] <SEE NOTE> Lipid Profile 08/17/2011 [facility] Triglyceride 254 High 40- 200 (Trig/Chol/HDL) [address] mg/[place] [address] [phone] Cholesterol 173 mg/dL Less Than 200 56 High Density Lipoprotein 42 mg/dL 40-60 57 Cholesterol/HDL Ratio 4.12 AVERAGE 1-4.44 Low Density Lipoprotein 80 mg/dL Less Than 100 58 Comp Metabolic Panel 08/17/2011 [facility] Sodium 135 mmol/L 135-[address] [place] [address] [phone] Potassium 4.3 mmol/L 3.5-5.0 Chloride 101 mmol/L [...] 70.3 > 60 61 Laboratory test 08/17/2011 [facility] Hemoglobin A1c 6.3 % High Less Than [address] [place] [address] [phone] Laboratory test 04/04/2011 [facility] Alt (SGPT) 23 U/L 14- [address] [place] [address] [phone] Alkaline 04/04/2011 [facility] Alkaline 62 U/L 55 - [address] [facility] Phosphatase,[place] [address] [phone] Liver 1% 51.6 % 27.8-76.3 Liver 1 32.0 IU/L 16.2-70.2 Liver 2% 5.6 % 0.0-8.0 Liver 2 3.5 IU/L 0.0-5.8 Bone % 42.8 % 19.1-67.7 Bone 26.5 IU/L 12.1-42.7 Intestine % 0.0 % 0.0-20.6 Intestine 0.0 IU/L 0.0-11.0 Placental NotPresent () 64 Lipid Profile 04/04/2011 [facility] Triglyceride 273 mg/dL High 40-200 (Trig/Chol/HDL) [address] [place] [address] [phone] Cholesterol 166 mg/dL Less Than 200 65 High Density Lipoprotein 39 mg/dL Low 40-60 66 Cholesterol/HDL Ratio 4.26 AVERAGE 1-4.44 Low Density Lipoprotein 72 mg/dL Less Than 100 67 Laboratory test 01/18/2011 [facility] Hemoglobin A1c 5.5 5-7 finding Lipid Profile 07/14/2010 [facility] Triglyceride 349 mg/dL High 40-200 (Trig/Chol/HDL) [address] [place] [address] [phone] Cholesterol 224 mg/dL High Less Than 200 68 High Density Lipoprotein 39 mg/dL Low 40-60 69 Cholesterol/HDL Ratio 5.74 AVERAGE High 1-4.44 Low Density Lipoprotein 115 mg/dL High Less Than 100 70 Basic Metabolic 07/14/2010 [facility] Sodium 134 mmol/L Low 135-145 Panel [address] [place] [address] [phone] Potassium 4.5 mmol/L 3.5-5.0 Chloride 100 mmol/L Low 101-111 Co2 (Carbon Dioxide) 28.0 mmol/L 22-32 Anion Gap 6.0 mmol/L 2-11 71 Glucose 108 mg/dL High 70-100 BUN 15 mg/dL 6-24 Creatinine 1.00 mg/dL 0.50-1.40 One Over Creatinine 1.00 BUN/Creatinine Ratio 15.0 8-20 Calcium 9.8 mg/dL 8.1-9.9 eGFR Non- 54.8 > 60 eGFR 70.5 > 60 72 Laboratory test 07/14/2010 [facility] TSH 2.93 MIU/ML 0.34- 5.[address] [place] [address] [phone] Comp Metabolic 06/22/2010 [facility] Sodium 137 mmol/L 135- [address] [place] [address] [phone] Potassium 4.2 mmol/L 3.5-5.0 Chloride 100 mmol/L [...] > 60 75 CBC With Manual 06/22/2010 [facility] White Blood 6.9 CUMM 4.8-10.[address] [place] [address] [phone] Red Cell Count 4.71 CUMM 4.2-5.4 Hemoglobin [...] RBC Morphology NORMAL CBC With Manual 03/23/2010 [facility] White Blood 8.1 CUMM 4.8-10.[address] [place] [address] [phone] Red Cell Count 4.67 CUMM 4.2-5.4 Hemoglobin [...] RBC Morphology NORMAL Comp Metabolic Panel 03/23/2010 [facility] Sodium 133 mmol/L Low 135-[address] [place] [address] [phone] Potassium 4.3 mmol/L 3.5-5.0 Chloride 99 mmol/L [...] 47.8 > 60 79 Laboratory test 03/23/2010 [facility] Carcino 1.99 NG/ML 0-5 [address] [place] [address] Antigen [phone] Comp Metabolic 12/22/2009 [facility] Sodium 134 mmol/L Low 135 -[address] [place] [address] [phone] Potassium 4.6 mmol/L 3.5-5.0 Chloride 96 mmol/L [...] 91.5 > 60 84 Laboratory test 12/22/2009 [facility] Carcino 2.32 NG/ML 0-5 [address] [place] [address] Antigen [phone] CBC With Manual 12/22/2009 [facility] White Blood 8.4 CUMM 4.8-10.[address] [place] [address] [phone] Red Cell Count 4.46 CUMM 4.2-5.4 Hemoglobin [...] 4.9 RBC Morphology NORMAL Laboratory test 08/03/2009 [facility] Carcino 1.48 NG/ML 0-5 [address] [place] [address] Antigen [phone] Comp Metabolic 08/03/2009 [facility] Sodium 135 mmol/L 135- [address] [place], [place] [address] [phone] Potassium 4.6 mmol/L 3.5-5.0 Chloride 98 mmol/L [...] > 60 91 CBC With Manual 08/03/2009 [facility] White Blood 7.5 CUMM 4.8-10.[address] [place] [address] [phone] Red Cell Count 4.38 CUMM 4.2-5.4 Hemoglobin [...] RBC Morphology NORMAL Comp Metabolic Panel 04/26/2009 [facility] Sodium 136 mmol/L 135-[address] [place] [address] [phone] Potassium 4.5 mmol/L 3.5-5.0 Chloride 99 mmol/L [...] 91.5 > 60 96 Laboratory test 04/26/2009 [facility] Carcino 1.59 NG/ML 0-5 [address] [place] [address] Antigen [phone] CBC With Manual 04/26/2009 [facility] White Blood 6.8 CUMM 4.8-10.[address] Count [place], [place] [address] [phone] Red Cell Count 4.66 CUMM 4.2-5.4 Hemoglobin [...] Count 3.3 Anisocytosis SLIGHT Laboratory test 03/31/2009 [facility] Vitamin B12 372 pg/mL 180-914 finding [address] [place] [address] [phone] Immunofixation 03/31/2009 [facility] Albumin 3.43 GM/DL 3.0- 4.35 (Electro) Serum [address] [place] [address] [phone] Alpha 1 0.16 GM/DL 0.09-0.33 Alpha 2 [...] Serum Immunofixation (SEE NOTE) 99 [place] 03/31/2009 [facility] Cary-1 Negative titer <1:240 [address] [place] [address] [phone] Cary-2 Negative titer <1:240 Cary-3 Negative titer <1:240 Agna-1 Negative titer <1:240 Bag Machine Tender-1 Negative titer <1:240 Bag Machine Tender-2 Negative titer <1:240 Bag Machine Tender-Tr Negative titer <1:240 Amphiphysin AB Negative titer <1:240 CRMP-5-Igg Negative titer () 100 Striational AB Negative titer <1:60 101 P/Q-Type Calcium Channel AB 0.00 nmol/L <=0.02 102 N-Type Calcium Channel AB 0.00 nmol/L <=0.03 103 Ach Receptor Binding AB 0.00 nmol/L <=0.02 104 Achr Ganglionic Neuronal AB 0.01 nmol/L <=0.02 105 VGKC AB, Serum 0.00 nmol/L <=0.02 106 Basic Metabolic Panel 03/23/2009 [facility] Sodium 140 mmol/L 135-[address] [place] [address] [phone] Potassium 4.8 mmol/L 3.5-5.0 Chloride 103 mmol/L 101-111 Co2 (Carbon Dioxide) 28.0 mmol/L 22-32 Anion Gap 9.0 mmol/L 2-11 107 Glucose 74 mg/dL 70-100 108 BUN 20 mg/dL 6-24 Creatinine 1.00 mg/dL 0.50-1.40 One Over Creatinine 1.00 BUN/Creatinine Ratio 20.0 8-20 Calcium 9.6 mg/dL 8.1-9.9 109 eGFR Non- 58.4 > 60 eGFR 70.7 > 60 110 Laboratory test 01/20/2009 [facility] TSH 3.32 MIU/ML 0.34- 5.[address] [place] [address] [phone] CBC With Manual 01/20/2009 [facility] White Blood 6.8 CUMM 4.8-10.8 Diff [address] [place] [address] [phone] Red Cell Count 4.59 CUMM 4.2-5.4 Hemoglobin [...] RBC Morphology NORMAL Comp Metabolic Panel 01/20/2009 [facility] Sodium 137 mmol/L 135-[address] [place] [address] [phone] Potassium 3.6 mmol/L 3.5-5.0 Chloride 101 mmol/L [...] 60 115 Iron & Iron Binding 01/20/2009 [facility] Iron Total 91 g/dL 28-170 Capacity [address] [place] [address] [phone] Unsaturated Iron Binding 287 g/dL Total Iron Binding Capacity 378 g/dL 250-450 % Iron Saturation 24 % 15-55 Laboratory test 01/20/2009 [facility] Ferritin 65 NG/ML 11.0- 307 finding [address] [place] [address] [phone] Vitamin B12 326 pg/mL 180-914 Carcino Embryonic Antigen 1.47 NG/ML 0-5 116 Protein 01/20/2009 [facility] Albumin 3.80 GM/DL 3.0-4.35 Electrophoresis Serum [address] [place] [address] [phone] Alpha 1 0.19 GM/DL 0.09-0.33 Alpha 2 1.074 GM/DL 0.59-1.18 Beta 1.02 GM/DL 0.68-1.02 Gamma 1.26 GM/DL 0.76-1.60 Albumin % 52.1 % 46-63 Alpha 1 % 2.6 % 1.2-5.3 Alpha 2 % 14.7 % 9-17 Beta % 14.0 % 10-16 Gamma % 17.3 % 12-22 A/G Ratio 1.1 0.9-2 Total Protein 7.3 GM/DL 6.2-8.1 Spep Comments (SEE NOTE) 117 Comp Metabolic Panel 01/20/2009 [facility] Sodium 138 mmol/L 135-[address] [place], [place] [id number] [phone] Potassium 3.5 mmol/L 3.5-5.0 Chloride 103 mmol/L [...] 70.7 > 60 122 Lipid Profile 01/20/2009 [facility] Triglyceride 317 mg/dL High 40-200 (Trig/Chol/HDL) [address] [place] [address] [phone] Cholesterol 247 mg/dL High Less Than 200 123 High Density Lipoprotein 35 mg/dL Low 40-60 124 Cholesterol/HDL Ratio 7.06 AVERAGE High 1-4.44 Low Density Lipoprotein 149 mg/dL High Less Than 100 125 Surgical 03/04/2008 [facility] Surgical [address] Pathology <SEE NOTE> [place] [address] [phone] Comp 03/04/2008 [facility] Sodium 134 mmol/L Low [address] -14 [place] [address] [phone] Potassium 3.6 mmol/L 3.5-5.0 Chloride 98 mmol/L [...] (Sgot) 28 U/L 12-42 Laboratory test 03/04/2008 [facility] Carcino 41.68 High 0-5 [address] Embryonic NG/[place] [address] Antigen [phone] Iron & Iron 02/27/2008 [facility] Iron Total 20 g/dL Low 28- 170 [address] [place] [address] [phone] Unsaturated Iron Binding 350 g/dL Total Iron Binding Capacity 370 g/dL 250-450 % Iron Saturation 5 % Low 15-55 Laboratory test 02/27/2008 [facility] Ferritin < 10 NG/ML Low 11.0-[address] [place] [address] [phone] Erythrocyte Sed Rate 59 MM/HR High 0-40 Comp Metabolic Panel 02/27/2008 [facility] Sodium 137 mmol/L 135-[address] [place] [address] [phone] Potassium 3.5 mmol/L 3.5-5.0 Chloride 101 mmol/L [...] Ast (Sgot) 24 U/L 12-42 Protein 02/27/2008 [facility] Albumin 3.04 GM/DL 3.0-4.35 Electrophoresis Serum [address] [place] [address] [phone] Alpha 1 0.20 GM/DL 0.09-0.33 Alpha 2 [...] Comments (SEE NOTE) 135 CBC With 02/19/2008 [facility] White Blood 11.9 CUMM High 4.8- 10.8 Manual Diff [address] [place] [address] [phone] Red Cell Count 4.54 CUMM 4.2-5.4 Hemoglobin [...] Cells FEW Stomatocytes FEW Laboratory test 02/19/2008 [facility] Hemoglobin A1c 5.8 % < 6.[address] [place] [address] [phone] Comp Metabolic 01/29/2008 [facility] Sodium 139 135-[address] mmol/[place] [address] [phone] Potassium 4.1 mmol/L 3.5-5.0 Chloride 99 mmol/L [...] Protein 7.5 GM/DL 6.2-8.1 Lipid Profile 01/29/2008 [facility] Triglyceride 311 mg/dL High 40-200 (Trig/Chol/HDL) [address] [place] [address] [phone] Cholesterol 226 mg/dL High Less Than 200 140 Cholesterol/HDL Ratio 7.79 AVERAGE High 1-4.44 Low Density Lipoprotein 135 mg/dL High Less Than 100 141 High Density Lipoprotein 29 mg/dL Low 40-60 142 Laboratory test 01/29/2008 [facility] TSH 1.71 MIU/ML 0.34- 5.[address] [place] [address] [phone] CBC With Manual 01/29/2008 [facility] White Blood 10.8 CUMM 4.8-10.[address] [place] [address] [phone] Red Cell Count 4.47 CUMM 4.2-5.4 Hemoglobin [...] Count 6.8 Anisocytosis SLIGHT Laboratory test 01/29/2008 [facility] Hemoglobin A1c 6.2 % High <6.0 [address] [place] [address] [phone] Vitamin D, 25 01/29/2008 [facility] 25-Hydroxy <4.0 () Hydroxy [address] Vitamin D2 ng/[place] [address] [phone] 25-Hydroxy Vitamin D3 35 ng/mL () 25-Hydroxy Vitamin D Total 35 ng/mL () 144 1 *Ascorbic acid is present which may interfere with detection of blood. 2 [facility] Severe Sepsis and Septic Shock [...] [address]: Wanda Kraus MD Acct: [id number] Unit: [id number] AGE: 77 Location: [place] [address] Re11/06/17 SEX: F Status: ADM IN SPEC: [id number] JUAN ANTONIO: 11/06/17 [facility] DR: Carlos Rhodes MD REQ: [id number] RECD: 11/06/17 STATUS: MARYANN FLORES DR: Echo Rivero ELECTRONICS HARDWARE DESIGN ENGINEER _ SOURCE: BLOOD,VENO SPDESC: ORDERED: Blood Cult Procedure Result Reported Site Aerobic Culture Bottle Final 11/11/17- 55 ML No Growth Day 5 Anaerobic Culture Bottle Final 11/11/17- 0855 ML No Growth Day 5 * ML - Main Lab . END OF REPORT DEPARTMENT OF PATHOLOGY, [address] [place] [address] Riky Samayoa M.D. Director [facility] # [id number] 6 Acute inflammation: >10.00 7 Because ethnic [...] (or dialysis) 8 Acute inflammation: >10.00 9 [facility] Severe Sepsis and Septic Shock [...] pg/mL: likely moderate to severe CHF 13 Survey Analyst: [id number] SEE RESULT BELOW Name: FRANCISCA COBURN : [address]: Heriberto Mejias MD Acct: [id number] Unit: [id number] AGE: 77 Location: ED Re06/15/17 SEX: F Status: REG ER SPEC: [id number] JUAN ANTONIO: 06/15/17-13[address] [facility] [address]: Heriberto Mejias MD REQ: [id number] RECD: 06/15/17 STATUS: MARYANN FLORES DR: Echo Rivero ELECTRONICS HARDWARE DESIGN ENGINEER _ SOURCE: [facility]: ORDERED: Flu A B Request Procedure Result Reported Site Rapid Influenza A B Request Final 06/15/17- 132 ML Specimen received for Influenza A/B Molecular testing * ML - Main Lab . END OF REPORT DEPARTMENT OF PATHOLOGY, [address] [place] [address] Riky Samayoa M.D. Director [facility] # [id number] 15 Because ethnic data is not always [...] inflammation: >10.00 17 Result TnIDx:0.05 Called to [id number] at: 13:32:38 by:[id number] Read back by: [id number] 18 >100 to <200 pg/mL: likely compensated congestive heart failure (CHF) 200 to 400 pg/mL: likely moderate CHF >400 pg/mL: likely moderate to severe CHF 19 [facility] Severe Sepsis and Septic Shock [...] detection of blood. 38 RUN DATE: 02/14/14 [facility] LAB LIVE PAGE 1 RUN TIME: [address] [place] [address] Specimen Inquiry Name: FRANCISCA COBURN : [address]: Jose Marin MD Acct: [id number] Unit: [id number] AGE: 74 Location: [facility] Re02/12/14 SEX: F Status: REG REF SPEC: [id number] JUAN ANTONIO: 02/12/14-[address] [facility] [address]: Jose Marin MD REQ: [id number] RECD: 02/12/14 STATUS: MARYANN FLORES DR: Alexi Kim III, MD _ SOURCE: URINE SPDESC: ORDERED: Urine Culture Procedure Result Verified Site Urine Culture Final 02/14/14- 0807 ML Organism 1 ESCHERICHIA COLI Gar[place]son Count 75-100,000 (Many) CFU/ML Organism 2 ENTEROCOCCUS SPECIES GP D Gar[place]son Count >100,000 (Many) CFU/ML 1. ESCHERICHIA COLI [...] at Main Lab DEPARTMENT OF PATHOLOGY, [address] [place] [address] Riky Samayoa M.D. Director [facility] # [id number] RUN DATE: 02/14/14 [facility] LAB LIVE PAGE 2 RUN TIME: [address] [place] [address] Specimen Inquiry Patient: FRANCISCA COBURN [id number] (Continued) Specimen: [id number] Collected: 02/12/14-1199 Received: 02/12/14-1251 (Continued) Procedure Result [...] These antibiotics are not available in the [facility] Formulary Contact the Microbiology Department for any additional antibiotic reporting. Contact the Microbiology Department for any additional antibiotic reporting. END OF REPORT * ML=Testing performed at Main Lab DEPARTMENT OF PATHOLOGY, [address] [place] [address] Riky Samayoa M.D. Director [facility] # [id number] SURGERY DATE: 02/17/14 40 Because ethnic [...] levels within this range. Test Performed by: [place] [address] Housekeeping Coordinator: Souleymane Weinstein III, M.D. 48 Because ethnic [...] 0.06 ng/mL Not supportive of diagnosis of SC 0.06 - 0.50 ng/mL Indeterminate: suggest serial studies if clinically indicated. Greater than 0.5 ng/mL Consistent with diagnosis of SC 50 Therapeutic target for the treatment of diabetes Mellitus patients is <7% HBA1C, and in selective patients <6.0%.Please refer to [place] [employer] Diabetic care guidelines for further [...] PT IS FASTING 55 RUN DATE: 03/18/12 [facility] LAB LIVE PAGE 1 RUN TIME: [address] [place] [address] Specimen Inquiry Name: MELLISSAFRANCISCA Canela : [address]: Cuong Lorenzo MD Acct: [id number] Unit: [id number] AGE: 72 Location: [facility] Re03/14/12 SEX: F Status: REG REF SPEC: [id number] JUAN ANTONIO: 03/14/12- [facility] DR: Cuong Lorenzo MD REQ: [id number] RECD: 03/15/12 STATUS: ASHLY FLORES DR: Abram [...] performed at Main Lab DEPARTMENT OF PATHOLOGY, [address] [place] [address] Riky Samayoa M.D. Director [place] [facility] Permit #[id number] RUN DATE: 03/18/12 [facility] LAB LIVE PAGE 2 RUN TIME: [address] [place] [address] Specimen Inquiry Patient: FRANCISCA COBURN [id number] (Continued) GROSS DESCRIPTION (Continued) Signed (signature on file) Riky Samayoa MD 1404 END OF REPORT * ML=Testing performed at Main Lab DEPARTMENT OF PATHOLOGY, [facility] [place] [id number] Riky Samayoa M.D. Director [facility] Permit #[id number] CHOLESTEROL INTERPRETATION: Desirable: Less than 200 [...] IN SELECTIVE PATIENTS <6.0%. PLEASE REFER TO [place] [employer]ATION DIABETIC CARE GUIDELINES FOR FURTHER INFORMATION. 63 Test Performed by: [facility] Dpt of Lab Med and Pathology [address] [place] [address] Housekeeping Coordinator: Souleymane Weinstein III, M.D. 64 -- REFERENCE VALUE -- Not present Test Performed by: [facility] Dpt of Lab Med and Pathology [address] [place] [address] Housekeeping Coordinator: Souleymane Weinstein III, M.D. 65 CHOLESTEROL INTERPRETATION: [...] change was based on recommendations from the [place] [employer]. 78 A metabolite of Naproxen, O-desmethylnaproxen, has been shown to interfere with the Jendrassik-Holly [place]ond method for measuring total bilirubin. Samples from [...] change was based on recommendations from the [place] [employer]. 83 A metabolite of Naproxen, [...] change was based on recommendations from the [place] [employer]. 89 Please note change in [...] change was based on recommendations from the [place] [employer]. 94 Please note change in [...] vision loss, cranial neuropathy and myelopathy. Contact [facility] Inquiry at [phone] ([id number])to add-on [id number] Western Blot, S. Test Performed by: [facility] Dpt of Lab Med and Pathology [address] [place] [address] Housekeeping Coordinator: Souleymane Weinstein III, M.D. 101 Test Performed by: [facility] Dpt of Lab Med and Pathology [address] [place] [address] Housekeeping Coordinator: Souleymane Weinstein III, M.D. 102 Test Performed by: [facility] Dpt of Lab Med and Pathology [address] [place] [address] Housekeeping Coordinator: Souleymane Weinstein III, M.D. 103 Test Performed by: [facility] Dpt of Lab Med and Pathology [address] [place] [address] Housekeeping Coordinator: Souleymane Weinstein III, M.D. 104 Test Performed by: [facility] Dpt of Lab Med and Pathology [address] [place] [address] Housekeeping Coordinator: Soulyemane Weinstein III, M.D. 105 Test Performed by: [facility] Dpt of Lab Med and Pathology [address] [place] [address] Housekeeping Coordinator: Souleymane Weinstein III, M.D. 106 Test Performed by: [facility] Dpt of Lab Med and Pathology [address] [place] [address] Housekeeping Coordinator: Souleymane Weinstein III, M.D. 107 Anion gap measurement may be of limited value in the presence of any alkalosis, especially in a combined acid base disorder. . 108 Note change in reference range as of 12/05/07. The change was based on recommendations from the [place] [employer]. 109 Please note change in [...] change was based on recommendations from the [place] [employer]. 113 Please note change in reference range effective 07 . 114 A metabolite of Naproxen, O-desmethylnaproxen, has been shown to interfere with the Jendrassik-Holly Pond method for measuring total bilirubin. Samples from [...] SERUM LEVELS OF CEA MEASURED USING THE [employer] ACCESS IMMUNOASSAY SYSTEM SHOULD NOT BE INTERPRETED [...] change was based on recommendations from the [place] [employer]. 120 Please note change in reference range effective 07 . 121 A metabolite of Naproxen, O-desmethylnaproxen, has been shown to interfere with the Jendrassik-Holly Pond method for measuring total bilirubin. Samples from [...] 189 MG/DL 126 ----- RUN DATE: 03/05/08 [facility] NMI LIVE PAGE 1 RUN TIME: 1419 Specimen Inquiry RUN USER: INTERFACE -- Name: FRANCISCA COBURN#: [id number] Status: REG REF Re03/04/08 Age/Sex: 68/F Unit#: [id number] Location: [address] [place] [address].O.B. : [birth year] -- Specimen: [id number] Spec Date: 03/04/[address]: Joce [...] 03/05/08 1419 -- -- DEPARTMENT OF PATHOLOGY, [address] [place] [address] [facility] Permit #[id number] Riky Samayoa M.D. Director Nghia Vasquez M.D. Mine Administrator Supervisor Dir ricardo -- 127 Anion gap measurement may be of limited value in the presence of any alkalosis, especially in a combined acid base disorder. . 128 Note change in reference range as of 12/05/07. The change was based on recommendations from the [place] [employer]. 129 Please note change in reference range effective 07 . 130 SMOKING MAY INCREASE VALUES SERUM LEVELS OF CEA MEASURED USING THE [employer] ACCESS IMMUNOASSAY SYSTEM SHOULD NOT BE INTERPRETED [...] change was based on recommendations from the [place] Diabetes [employer]. 134 Please note change in reference range effective 07 . 135 INCREASED BETA GLOBULIN- CONSISTENT WITH HYPERLIPO- PROTEINEMIA OR IRON DEFICIENCY. 136 THERAPEUTIC TARGET FOR THE TREATMENT OF DIABETES MELLITUS PATIENTS IS <7% HBA1C, AND IN SELECTIVE PATIENTS <6.0%. PLEASE REFER TO [place] DIAB[employer] ASSOCIATION DIABETIC CARE GUIDELINES FOR FURTHER INFORMATION. 137 Anion gap measurement may be of limited value in the presence of any alkalosis, especially in a combined acid base disorder. . 138 Please note change in reference range effective 07 . 139 Note change in reference range as of 12/05/07. The change was based on recommendations from the [place] [employer]. 140 CHOLESTEROL INTERPRETATION: Desirable: Less [...] IN SELECTIVE PATIENTS <6.0%. PLEASE REFER TO [place] DIAB[employer] ASSOC[employer]ATION DIABETIC CARE GUIDELINES FOR FURTHER INFORMATION. 144 -- REFERENCE VALUE -- 25-HYDROXY D TOTAL (D2+D3) Optimum levels in the normal population are 25-80 Test Performed by: [facility] Dpt of Lab Med and Pathology [address] [place] [address] Housekeeping Coordinator: Souleymane Weinstein III, M.D. Procedures Date Code Description Status 01/15/2018 84929 Admin Of Inj Completed 11/07/2017 [id number] Mammogram Completed 08/31/2017 05416 EKG Tracing & Interpretation Completed 06/17/2017 98527 ECHO Transthorasic Realtime 2D W Doppler & Color Flow Completed Hosp 06/16/2017 34509 EKG, Interpretation Only Completed 03/30/2017 24641597 Mammogram Completed 02/27/2017 30054 Diffusing Capacity Completed 02/27/2017 99327 Spirometry Incl Graphic Record Completed 10/27/2016 79799 Admin Of Inj Completed 02/29/2016 53883 Chemotherpy Admin Subcutaneous/Im Non-Hormonal Completed Anti-Neoplastic 05/11/2015 13843 Chemotherpy Admin Subcutaneous/Im Non-Hormonal Completed Anti-Neoplastic 04/01/2015 638791830 Bone Mineral Density Test Completed 04/01/2015 06946508 Mammogram Completed 03/31/2015 84434 Pulmonary Stress Test Simple Completed 10/07/2014 79857 Admin Of Inj Completed 09/23/2014 64386 Pulmonary Stress Test Simple Completed 04/20/2014 16121 Admin Of Inj Completed 03/30/2014 18323 Rad Exam; Hip Unilat Completed 03/30/2014 41738 Rad Exam; Pelvis Completed 02/17/2014 03240 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 02/17/2014 77161 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 02/12/2014 34515 Spirometry Incl Graphic Record Completed 02/09/2014 81239 Spirometry Incl Graphic Record, Timed Expiratory Flow Completed Rate 02/04/2014 61751 EKG Tracing & Interpretation Completed 12/29/2013 44510 Rad Exam; Hip Unilat Completed 12/29/2013 70163 Rad Exam; Pelvis Completed 10/06/2013 45121 Chemotherpy Admin Subcutaneous/Im Non-Hormonal Completed Anti-Neoplastic 10/06/2013 75762 Admin Of Inj Completed 09/29/2013 10207 Rad Exam; Hip Unilat Comp Completed 09/29/2013 94242 Rad Exam; Pelvis Completed 08/25/2013 90728 Pulmonary Function><Bronchodilator Completed 04/14/2013 19313 Rad Exam; Pelvis Completed 04/14/2013 78472 Rad Exam; Hip Unilat Completed 02/17/2013 09857217 Mammogram Completed 02/17/2013 996879909 Bone Mineral Density Test Completed 01/06/2013 54799 Rad Exam; Hip Unilat Completed 01/06/2013 92991 Rad Exam; Pelvis Completed 10/14/2012 66308 Rad Exam; Hip Unilat Completed 10/14/2012 68178 Rad Exam; Wrist Limited, 2 Views Completed 10/14/2012 07404 Rad Exam; Pelvis Completed 09/12/2012 89702 Open TX Of Femoral FX,Promimal End,Neck Internal Completed Fixation 09/12/2012 88404 Open TX Of Femoral FX,Promimal End,Neck Internal Completed Fixation 09/12/2012 84511 Closed Treatment Distal Radial FX W/Manipulation Completed 03/20/2012 98501853 Colonoscopy Completed 01/25/2011 32407685 Mammogram Completed 01/25/2011 335265452 Bone Mineral Density Test Completed 02/04/2010 13405 Admin Of Inj Completed 09/29/2009 52293 Pulmonary Function><Bronchodilator Completed 06/23/2009 28436 EKG, Interpretation Only Completed 03/13/2008 24522 EKG, Interpretation Only Completed 03/04/2008 94428235 Colonoscopy Completed Encounters Type Date Location Provider Dx Diagnosis Office Visit 02/25/2018 Mita Garcia44.1 Chronic obstructive 1:20p Medicine - N.P. pulmonary disease w [place] (acute) exacerbation Office Visit 02/12/2018 Pulmonology And Mita Martinez44.9 Chronic obstructive 1:45p Sleep Services Of pulmonary disease, Land Development Project Manager unspecified R09.02 Hypoxemia Office Visit 02/01/2018 2:30p Orthopedic Services Amanda Lay, M25.552 Pain in left Of C.M.A. M.D. hip M70.62 Trochanteric bursitis, left hip Z96.642 Presence of left artificial hip joint M76.02 Gluteal tendinitis, left hip Office Visit 01/01/2018 1:00p Mita Garcia44.1 Chronic Medicine - N.P. obstructive [place] pulmonary disease w (acute) exacerbation M25.552 Pain in left hip Office Visit 11/16/2017 2:00p Land Development Project Manager Internal Angie J44.1 Chronic Medicine - Yolande Zimmer obstructive [place] pulmonary disease w (acute) exacerbation I10 Essential (primary) hypertension Office Visit 11/13/2017 11:18a [facility] Keyonna J44.1 Chronic Assoc,claire Castillo DO obstructive Hospitalists pulmonary disease w (acute) exacerbation J96.21 Acute and chronic respiratory failure with hypoxia I10 Essential (primary) hypertension E78.5 Hyperlipidemia, unspecified F41.9 Anxiety disorder, unspecified Office Visit 11/12/2017 11:17a [facility] Wanda J96.21 Acute and chronic Assoc,claire Montaño M.D. respiratory Hospitalists failure with hypoxia J44.1 Chronic obstructive pulmonary disease w (acute) exacerbation I10 Essential (primary) hypertension E78.5 Hyperlipidemia, unspecified Office Visit 11/11/2017 11:17a [facility] Wanda J96.21 Acute and chronic Assoc,claire Montaño M.D. respiratory Hospitalists failure with hypoxia J44.1 Chronic obstructive pulmonary disease w (acute) exacerbation I10 Essential (primary) hypertension Office Visit 11/10/2017 11:17a [facility] Wanda J44.1 Chronic Assoc,claire Montaño M.D. obstructive Hospitalists pulmonary disease w (acute) exacerbation J96.21 Acute and chronic respiratory failure with hypoxia I10 Essential (primary) hypertension Office Visit 11/09/2017 11:16a [facility] Wanda J96.21 Acute and chronic Assoc,claire Montaño M.D. respiratory Hospitalists failure with hypoxia J44.1 Chronic obstructive pulmonary disease w (acute) exacerbation I10 Essential (primary) hypertension Office Visit 11/08/2017 11:16a [facility] Wanda J44.1 Chronic Assoc,claire Montaño M.D. obstructive Hospitalists pulmonary disease w (acute) exacerbation J96.21 Acute and chronic respiratory failure with hypoxia I10 Essential (primary) hypertension Office Visit 11/08/2017 9:54a Pulmonology And Sabrina J44.1 Chronic [facility] [place] obstructive [facility] pulmonary disease w (acute) exacerbation Z99.81 Dependence on supplemental oxygen Z87.891 Personal history of nicotine dependence Office Visit 11/07/2017 9:23a Pulmonology And Sabrina J44.1 Chronic [facility] [place] obstructive [facility] pulmonary disease w (acute) exacerbation E66.01 Morbid (severe) obesity due to excess calories Z87.891 Personal history of nicotine dependence Z99.81 Dependence on supplemental oxygen Office Visit 11/07/2017 11:16a [facility] Wanda J44.0 Chronic Assoc,claire Montaño M.D. obstructive Hospitalists pulmon disease w acute lower resp infct J96.21 Acute and chronic respiratory failure with hypoxia I10 Essential (primary) hypertension Office Visit 11/06/2017 11:15a [facility] Wanda J96.21 Acute and chronic Assoc,claire Montaño M.D. respiratory Hospitalists failure with hypoxia J44.1 Chronic obstructive pulmonary disease w (acute) exacerbation I10 Essential (primary) hypertension Office Visit 11/02/2017 3:20p [facility] Internal Mita Chavez44.1 Chronic Medicine - N.P. obstructive [place] pulmonary disease w (acute) exacerbation I10 Essential (primary) hypertension Office Visit 08/31/2017 3:00p [facility] Renaldo Brunson I50.32 Chronic diastolic Of [facility] Crump, DO (congestive) heart FACC failure I10 Essential (primary) hypertension J44.9 Chronic obstructive pulmonary disease, unspecified I35.0 Nonrheumatic aortic (valve) stenosis E78.5 Hyperlipidemia, unspecified F17.201 Nicotine dependence, unspecified, in remission I71.4 Abdominal aortic aneurysm, without rupture Office Visit 08/14/2017 1:30p Pulmonology And Sabrina J44.9 Chronic [facility] [place] obstructive [facility] pulmonary disease, unspecified R09.02 Hypoxemia Office Visit 08/03/2017 4:00p [facility] Internal Mita Chavez44.1 Chronic Medicine - N.P. obstructive [place] pulmonary disease w (acute) exacerbation I10 Essential (primary) hypertension E87.1 Hypo-osmolality and hyponatremia M54.5 Low back pain I71.4 Abdominal aortic aneurysm, without rupture I34.9 Nonrheumatic mitral valve disorder, unspecified Office Visit 07/27/2017 [facility] J44.1 Chronic 10:35a Assoc,pc MICHELLE Tavares obstructive Hospitalists pulmonary disease w (acute) exacerbation I50.33 Acute on chronic diastolic (congestive) heart failure I10 Essential (primary) hypertension F41.8 Other specified anxiety disorders Office Visit 07/26/2017 1:32p Pulmonology And Sabrina Z87.891 Personal history [facility] [place] of nicotine Land Development Project Manager dependence J44.1 Chronic obstructive pulmonary disease w (acute) exacerbation I50.31 Acute diastolic (congestive) heart failure R06.02 Shortness of breath Office Visit 07/26/2017 [facility] J44.1 Chronic 10:34a Assocclaire PA obstructive Hospitalists pulmonary disease w (acute) exacerbation I50.33 Acute on chronic diastolic (congestive) heart failure I10 Essential (primary) hypertension F41.8 Other specified anxiety disorders Office Visit 07/25/2017 [facility] J44.1 Chronic 10:33a Assocclaire PA obstructive Hospitalists pulmonary disease w (acute) exacerbation I50.33 Acute on chronic diastolic (congestive) heart failure I10 Essential (primary) hypertension F41.8 Other specified anxiety disorders Office Visit 07/25/2017 3:43p Pulmonology And Sabrina J44.1 [facility] [place] obstructive Land Development Project Manager pulmonary disease w (acute) exacerbation I50.31 Acute diastolic (congestive) heart failure Z87.891 Personal history of nicotine dependence R06.02 Shortness of breath Z99.81 Dependence on supplemental oxygen Office Visit 07/24/2017 10:31a [facility] Shanti Cody J44.1 Chronic Assoc,pc N.P. obstructive Hospitalists pulmonary disease w (acute) exacerbation I50.33 Acute on chronic diastolic (congestive) heart failure I10 Essential (primary) hypertension F41.8 Other specified anxiety disorders Office Visit 07/23/2017 10:29a [facility] Shanti Cody J44.1 Chronic Assoc,pc N.P. obstructive Hospitalists pulmonary disease w (acute) exacerbation I10 Essential (primary) hypertension F41.8 Other specified anxiety disorders Office Visit 07/22/2017 [facility] J44.1 Chronic 10:28a Assocclaire PA obstructive Hospitalists pulmonary disease w (acute) exacerbation I10 Essential (primary) hypertension F41.8 Other specified anxiety disorders Office Visit 07/21/2017 [facility] Jaylen Pratt J44.1 Chronic 10:27a Assoc,claire Uribe M.D.,FACP obstructive Hospitalists pulmonary disease w (acute) exacerbation I10 Essential (primary) hypertension F41.8 Other specified anxiety disorders Office Visit 07/03/2017 8:00a [facility] Cheyanne Jules, ELECTRONICS HARDWARE DESIGN ENGINEER M54.5 Low back pain Office Visit 07/01/2017 8:00a [facility] Cheyanne Jules, ELECTRONICS HARDWARE DESIGN ENGINEER M54.5 Low back pain J44.9 Chronic obstructive pulmonary disease, unspecified Office Visit 06/26/2017 8:45a [facility] Karolina Casanovaara, ELECTRONICS HARDWARE DESIGN ENGINEER M54.5 Low back pain S22.080A Wedge compression fracture of T11-T12 vertebra, init Office Visit 06/25/2017 Pulmonology And Elsi Burciaga, J44.9 Chronic 2:00p Sleep Services Of N.P. obstructive Land Development Project Manager pulmonary disease, unspecified Office Visit 06/20/2017 [facility] Elinor Muñoz, S22.080A Wedge 8:15a MDeepDDeep compression fracture of T11-T12 vertebra, init J44.9 Chronic obstructive pulmonary disease, unspecified I50.9 Heart failure, unspecified I10 Essential (primary) hypertension Office Visit 06/19/2017 10:07a [facility] Keyonna J96.21 Acute and chronic Assoc,claire Castillo DO respiratory Hospitalists failure with hypoxia J44.1 Chronic obstructive pulmonary disease w (acute) exacerbation S22.080A Wedge compression fracture of T11-T12 vertebra, init Office Visit 06/18/2017 10:06a [facility] Stewart Angelo J96.21 Acute and chronic Assoc,claire KLEIN respiratory Hospitalists failure with hypoxia J44.1 Chronic obstructive pulmonary disease w (acute) exacerbation S22.080A Wedge compression fracture of T11-T12 vertebra, init Office Visit 06/17/2017 10:05a [facility] Keyonna J96.21 Acute and chronic Assoc,claire Castillo DO respiratory Hospitalists failure with hypoxia J44.1 Chronic obstructive pulmonary disease w (acute) exacerbation S22.080A Wedge compression fracture of T11-T12 vertebra, init Office Visit 06/16/2017 10:04a [facility] Keyonna J96.21 Acute and chronic Assoc,claire Castillo DO respiratory Hospitalists failure with hypoxia J44.1 Chronic obstructive pulmonary disease w (acute) exacerbation S22.080A Wedge compression fracture of T11-T12 vertebra, init Office Visit 06/15/2017 11:15a [facility] Stewart Angelo, J96.21 Acute and chronic Assocclaire MD respiratory Hospitalists failure with hypoxia J44.1 Chronic obstructive pulmonary disease w (acute) exacerbation E87.1 Hypo-osmolality and hyponatremia S22.080A Wedge compression fracture of T11-T12 vertebra, init Office Visit 06/02/2017 10:59a [facility] Stewart Angelo, M48.54xA Collapsed Assoc,claire KLEIN vertebra, NEC, Hospitalists thoracic region, init K59.03 Drug induced constipation E87.1 Hypo-osmolality and hyponatremia M81.0 Age-related osteoporosis w/o current pathological fracture Office Visit 06/01/2017 10:58a [facility] Stewart Angelo, M48.54xA Collapsed Assocclaire MD vertebra, NEC, Hospitalists thoracic region, init K59.03 Drug induced constipation E87.1 Hypo-osmolality and hyponatremia M81.0 Age-related osteoporosis w/o current pathological fracture Office Visit 05/31/2017 10:57a [facility] Stewart Angelo, M48.54xA Collapsed Assclaire nation MD vertebra, NEC, Hospitalists thoracic region, init K59.03 Drug induced constipation E87.1 Hypo-osmolality and hyponatremia M81.0 Age-related osteoporosis w/o current pathological fracture Office Visit 05/30/2017 [facility] Jaylen Pratt M48.54xA Collapsed 10:55a Assocclaire M.D.,FACP vertebra, NEC, Hospitalists thoracic region, init K59.03 Drug induced constipation J44.9 Chronic obstructive pulmonary disease, unspecified M81.0 Age-related osteoporosis w/o current pathological fracture Office Visit 05/29/2017 10:53a [facility] Tiffany M48.54xA Collapsed Assocclaire, DO vertebra, NEC, Hospitalists thoracic region, init K59.03 Drug induced constipation J44.9 Chronic obstructive pulmonary disease, unspecified M81.0 Age-related osteoporosis w/o current pathological fracture Office Visit 05/16/2017 2:40p 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 joint M21.752 Unequal limb length (acquired), left femur Office Visit 08/29/2016 2:00p [facility] Internal Alexi EDeep I10 Essential ( primary) Medicine - [place] Kim hypertension [place] J44.9 Chronic obstructive pulmonary disease, unspecified M81.0 Age-related osteoporosis w/o current pathological fracture Office Visit 08/08/2016 1:00p Pulmonology And Sabrina J44.9 [facility] MD ethan Chester [facility] pulmonary disease, unspecified Office Visit 02/29/2016 2:00p [facility] Internal Alexi Escalera I10 Essential Medicine - Yolande Kim (primary) [place] hypertension J44.9 Chronic obstructive pulmonary disease, unspecified M81.0 Age-related osteoporosis w/o current pathological fracture E78.2 Mixed hyperlipidemia Z85.038 Personal history of malignant neoplasm of large intestine Z92.29 Personal history of other drug therapy Office Visit 02/08/2016 1:00p Pulmonology And Sabrina J44.9 [facility] ethan [place] [facility] pulmonary disease, unspecified Office Visit 01/26/2016 1:30p Orthopedic Jose Marin, Z96.642 Presence of left Services Of M.DDeep artificial hip C.M.A. joint Office Visit 09/28/2015 3:45p Pulmonology And Sabrina J44.9 [facility] pulmonary disease, unspecified J98.4 Other disorders of lung Office Visit 03/31/2015 1:00p Pulmonology And Sabrina J44.9 [facility] [place] obstructive [facility] pulmonary disease, unspecified R09.02 Hypoxemia E66.09 Other obesity due to excess calories Office Visit 03/01/2015 2:00p [facility] Internal Alexi Escalera I1Cassie Essential ( primary) Medicine - Yolande Kim hypertension [place] J44.9 Chronic obstructive pulmonary disease, unspecified M81.0 [...] Airway [facility] Obstruction [facility] Chronic Not Class Elsewhere 799.02 Hypoxemia 278.00 Obesity Unspec Office Visit 06/29/2014 10:45a Orthopedic Jose Marin, 715.95 Osteoarthrosis Services Of Yolande Unspec Genlzd Or C.M.A. Localized Pelvic & Thigh v54.81 Aftercare Following Joint Replacement V43.64 Hip Replacement By Other Means Office Visit 04/20/2014 4:00p [facility] Internal Medicine Alexi Kim, 724.2 Lumbago - Aleja Lanier 733.01 Osteoporosis Senile V87.49 Personal History Of Other Drug Therapy Office Visit 04/13/2014 11:00a Pulmonology And Sabrina 496 COPD Airway [facility] [place] Obstruction [facility] Chronic Not Class Elsewhere 518.89 Lung Disease Other Not Elsewhere Class 799.02 Hypoxemia Office Visit 03/04/2014 1:22p Pulmonology And Sabrina 496 COPD Airway [facility] [place] Obstruction [facility] Chronic Not Class Elsewhere Office Visit 02/26/2014 2:39p Pulmonology And Sabrina 496 COPD Airway [facility] [place] Obstruction Land Development Project Manager Chronic Not Class Elsewhere 786.05 Shortness Of Breath Office Visit 02/25/2014 2:31p Pulmonology And Sabrina 496 COPD Airway [facility] [place] Obstruction [facility] Chronic Not Class Elsewhere 786.05 Shortness Of Breath [facility] Airway Assoc,pc [place], N.P. Obstruction Hospitalists Chronic Not Class Elsewhere 401.9 Hypertension Unspec 278.00 Obesity Unspec V43.64 Hip Replacement By Other Means Office Visit 02/18/2014 [facility] Airway Assoc,pc [place], N.P. Obstruction Hospitalists Chronic Not Class Elsewhere 401.9 Hypertension Unspec 278.00 Obesity Unspec V43.64 Hip Replacement By Other Means Office Visit [facility]2014 [facility] COPD Airway Assoc,pc N.P. Obstruction Hospitalists Chronic Not Class Elsewhere 401.9 Hypertension Unspec 278.00 Obesity Unspec V43.64 Hip Replacement By Other Means Office Visit 02/09/2014 10:15a Pulmonology And Sabrina 496 COPD Airway [facility] [place] Obstruction [facility] Chronic Not Class Elsewhere V72.83 Examination Preoperative Other Spec Office Visit 02/04/2014 2:00p [facility] Hailey Escalera V72.81 Examination Medicine - Yolande Kim Preoperative [facility] 715.95 Osteoarthrosis Unspec Genlzd Or Localized Pelvic [...] Femur Closed C.M.A. Office Visit 02/24/2013 1:20p [facility] Internal Alexi Escalera 496 COPD Airway Nahum Kim M.D. Obstruction Chronic [place] Not Class Elsewhere 733.00 Osteoporosis Unspec 272.2 Hyperlipidemia Mixed 401.1 Hypertension Benign 820.8 FX Unspec Part Of Neck Of Femur Closed Office Visit 01/06/2013 9:00a Orthopedic Jose Marin, 813.42 FX Radius Services Of C.M.A. M.D. (Alone) Distal End Other Closed 820.8 FX Unspec Part Of Neck Of Femur Closed Office Visit 09/15/2012 1:32p [facility] Shanti Escobar, 492.8 Emphysema Other Assoc,pc N.P. Hospitalists 276.1 Hyposmolality & Or Hyponatremia 820.8 FX Unspec Part Of Neck Of Femur Closed 813.42 FX Radius (Alone) Distal End Other Closed Office Visit 09/14/2012 1:31p [facility] Shanti Cody, 492.8 Emphysema Other Assoc,pc N.PDeep Hospitalists 276.1 Hyposmolality & Or Hyponatremia 820.8 FX Unspec Part Of Neck Of Femur Closed 813.42 FX Radius (Alone) Distal End Other Closed Office Visit 09/13/2012 1:31p [facility] Wanda 492.8 Emphysema Other Assoc,pc Yolande Montaño Hospitalists 820.8 FX Unspec Part Of Neck Of Femur Closed 813.42 FX Radius (Alone) Distal End Other Closed Office Visit 09/12/2012 1:30p [facility] Elinor Muñoz, 820.8 FX Unspec Assoc,claire Lanier Part Of Neck Hospitalists Of Femur Closed 813.42 FX Radius (Alone) Distal End Other Closed 492.8 Emphysema Other 276.1 Hyposmolality & Or Hyponatremia Office Visit 09/12/2012 10:00a Orthopedic Services Jose Tomas, 820.8 FX Unspec Part Of C.M.A. M.D. 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 401.1 Hypertension Benign AT Henry Kim M.D. 272.2 Hyperlipidemia Mixed Office Visit 01/18/2011 2:40p DO Not Use Land Development Project Manager Alexi E. 401.1 Hypertension Benign AT Henry Kim M.D. 272.2 Hyperlipidemia Mixed 496 COPD Airway Obstruction Chronic Not Class Elsewhere 790.21 Impaired Fasting Glucose 733.00 Osteoporosis Unspec V76.10 Screening For Malignant Neoplasm Breast 153.8 Malignant Neoplasm Large Intestine Other Spec Sites V04.81 Need For Prophylactic Vaccination & Inoculation/Influenza Office Visit 07/11/2010 4:00p DO Not Use Land Development Project Manager Alexi E. 496 COPD Airway AT Henry Kim M.D. Obstruction Chronic Not Class Elsewhere 272.2 Hyperlipidemia Mixed 401.1 Hypertension Benign Office Visit 01/10/2010 11:20a DO Not Use Land Development Project Manager Alexi E. V72.83 Examination AT Henry Kim M.D. Preoperative Other Spec V72.81 Examination Preoperative Cardiovascular 366.8 Cataract Other 401.9 Hypertension Unspec 496 COPD Airway Obstruction Chronic Not Class Elsewhere 272.2 Hyperlipidemia Mixed Office Visit 09/29/2009 11:40a DO Not Use Land Development Project Manager Alexi E. 496 COPD Airway AT Henry Kim M.D. Obstruction Chronic Not Class Elsewhere 401.9 Hypertension Unspec 272.2 Hyperlipidemia Mixed Office Visit 06/22/2009 11:40a DO Not Use Land Development Project Manager Alexi E. 466.0 Bronchitis Acute AT Henry Kim M.D. Office Visit 06/08/2009 2:00p DO Not Use Land Development Project Manager Alexi E. 401.1 Hypertension Benign AT Henry Kim M.D. Office Visit 03/01/2009 2:30p DO Not Use Land Development Project Manager Alexi E. 782.3 Edema AT Henry Kim M.D. 401.1 Hypertension Benign Office Visit 02/11/2009 2:30p DO Not Use Land Development Project Manager Alexi E. 401.1 Hypertension Benign AT Henry Kim M.D. 782.3 Edema Office Visit 10/06/2008 2:15p [facility] Alexi E. 724.5 Backache Unspec Assoc AT Yolande Kim [facility] Office Visit 07/29/2008 2:30p [facility] Alexi E. 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 272.0 Hypercholesterolemia Pure 2:00p Assoc AT Yolande Kim [facility] 401.1 Hypertension Benign V04.81 Need For Prophylactic Vaccination & Inoculation/Influenza Office Visit 01/21/2008 12:00p [facility] Alexi E. 465.9 URI Upper Assoc AT Yolande Kim Respiratory [facility] Infections Acute Unspec Sites Office Visit 07/24/2007 2:30p [facility] Alexi E. 250.00 Diabetes Mellitus Assoc AT Yolande Kim W/O Compl Type II [facility] Or Unspec Controlled 733.00 Osteoporosis Unspec 401.1 Hypertension Benign V06.5 Tetanus Diphtheria (DT) V03.82 Streptococcus Pneumoniae Vaccination Spec Other Office Visit 01/22/2007 2:00p [facility] Alexi E. 250.00 Diabetes Mellitus Assoc AT Yolande Kim W/O Compl Type II [facility] Or Unspec Controlled 272.0 Hypercholesterolemia Pure 401.1 Hypertension Benign V04.81 Need For Prophylactic Vaccination & Inoculation/Influenza Plan of Treatment Future Appointment(s):09/06/2018 2:00 pm - Echo Rivero, N.P. at [facility] Internal Medicine - [place]37/23/2018 - Echo Rivero, N.P.Z00.00 Encounter for general adult medical examination without [...] and 2013. You will not need these again.Z12.31 Encounter for screening mammogram for malignant neoplasm ofJ44.9 Chronic obstructive pulmonary disease, unspecifiedComments:For your COPD continue your current management.I10 Essential (primary) hypertensionComments:For your high blood pressure: [...] your results.M81.0 Age-related osteoporosis without current pathological fractuNew Xrays:Dexa Bone Dens Axial Skeleton (Hips , Pelvis, Spine), Ordered: 03/08/18Comments:For your osteoporosis: You need to be getting [...]
--- OUTSIDE RECORDS SUMMARY | 2018-03-18 02:32 | XMS REPORT ---
:1940 External Reference #:[id number] Author Organization [facility] Address [address] [place] [address] [place] [address] Phone [phone] Care Team Providers Name Role Phone Angie Zimmer MD Primary Care Physician Unavailable Payers Type Date Identification Numbers Payment Provider Subscriber Medicare Primary Policy Number: [id number] Medicare Francisca Coburn PayID: [id number] [address] [place] [address] Medigap Part B Effective: 2005 Policy Number: Medicare Francisca Coburn [id number] Expires: 2018 PayID: [id number] [address] [place] [address] Medigap Part B Effective: Policy Number: BS Facets Francisca Coburn 2011 [id number] PayID: [id number] [address] [address] [place] [address] Problems Date Description Provider Status Onset: 02/08/2011 [...] obstructive pulmonary disease Wanda Montaño M.D. Active w (acute) exacerbation Onset: 11/07/2017 Chronic obstructive pulmon disease w Wanda Montaño M.D. Active acute lower resp infct Onset: 11/12/2017 Hyperlipidemia Wanda Montaño M.D. Active [...] Form Strength Qnty SIG Indications Ordering Provider Azithromycin 02/25/ Active Tablets 250mg 6tabs two tabs J44.1 Echo 2017 day one, Varn, N.P. one daily till gone Prednisone 02/25/ Active Tablets 20mg 9tabs 2 tab by J44.1 Echo 2018 mouth for 3 Varn, N.P. days and then 1 tablet by mouth for 3 days and then stop Anoro Ellipta 02/20/ Active Aerosol 62.5-25mcg 60uni 1 Sabrina 2017 /Inh ts inhalation MD Nemo daily Ventolin HFA 11/16/ Active Aerosol 108(90Base 24gm 2 puffs 4 J44.1 Angie 2018 ) mcg/Act times a day Cotton, as needed M.D. Furosemide 10/14/ Active Tablets 20mg 90tab take one 2017 s tablet by Cotton, mouth every M.D. day Irbesartan 08/22/ Active Tablets 300mg 90tab 1/2 by Angie 2018 s mouth every Cotton, day M.D. Nebulizer 07/13/ Active Device 1unit use three Echo 2018 s times a day Varn, N.P. as needed Nebulizer 07/13/ Active Kit 1unit use three Echo Kit/Tubing/Mout 2018 s times a day Varn, N.P. hpiece as needed Ipratropium 07/13/ Active Solution 0.5-2.5(3) 180ml [address] [facility] [place]/Albuter 2018 mg/3ML nebulizer Cotton, ol Sulfate three times M.D. a day as needed for asthma Multivitamins 02/06/ Active Capsules 1 by mouth Unknown 2015 every day Symbicort 03/31/ Active Aerosol 160-4.5mcg 30.6u Inhale Two J44.9 Sabrina 2014 /Act nits Puffs By MD Nemo Mouth Twice A Day Oxygen 09/28/ Active Misc 1unit please use R09.02 Sabrina 2014 s o2 at 4 MD Nemo litres/min during exertion Lyrica 04/10/ Active Capsules 25mg 60cap 25 mg in 2013 s the Varn, N.P. morning, and 50 mg [...] Active 400 mg po prn Unknown Azithromycin 01/01/2018 - Hx Tablets 250mg 6tabs two tabs day Surya Dodge 01/11/2018 one, one 4. Varn, N.P. daily till 1 gone Prednisone 01/01/2018 - Hx Tablets 20mg 9tabs 2 tab by Surya Dodge 01/13/2018 mouth for 3 4. Varn, N.P. days and then 1 1 tablet by mouth for 3 days and then stop Prednisone 11/13/2017 - Hx Tablets 20mg 9tabs 2 tab by Surya Adams 11/25/2017 mouth for 3 4. Cotton, days and then 1 M.D. 1 tablet by mouth for 3 days and then stop Prednisone 11/02/2017 - Hx Tablets 10mg 40tabs 4 tablets by Surya Dodge 11/13/2017 mouth for 4 4. Varn, N.P. days 3 1 tablets by mouth for 4 days 2 tablets by mouth for 4 days 1 tablet by mouth for 4 days Azithromycin 11/02/2017 - Hx Tablets 250mg 6tabs two tabs day Surya Dodge 11/12/2017 one, one 4. Varn, N.P. daily till 1 gone Proair HFA 08/14/2017 - Hx Aerosol 108(90B [...] M5 Sundar 05/22/2017 every six 4. Marlena, [employer] hours as 5 needed for pain. Salsalate 05/16/2017 - Hx Tablets 500mg 30tabs one tablet M5 Sundar 06/24/2017 twice daily 4. Marlena, [employer] as needed 5 with food Hydrocodone-Christian 05/16/2017 - Hx Tablets 5-325mg 30tabs take 1 tablet M5 Sundar taminophen 06/24/2017 every 8 hours 4. Marlena, [employer] for pain. 5 Zostavax 08/29/2016 - Hx Suspension [id number] I1 Alexi Escalera 05/16/2017 Rec t/0.65M 0 Elliot Kim M.D. Silver 02/07/2016 - Hx Tablets 1 po qd Unknown 02/07/2016 Acetaminophen 02/07/2016 - Hx Capsules 500mg 2 by mouth Unknown 06/24/2017 twice a day as needed Fentanyl 03/25/2014 - Hx Patches 72HR 25mcg/H 5units apply one Alexi Escalera 08/27/2014 R patch once Judy, every 3 days M.Terence [place] 03/13/2014 - Hx Tablets 5-325mg 30tabs 1-2 by mouth Dirk 04/10/2014 every 4 to 6 Tomas, hours as M.D. needed Macrobid 02/16/2014 - Hx Capsules 100mg 10caps 1 tab q12hr x Dirk 08/27/2014 5 days Yolande Marin [place] 02/14/2014 - Hx Tablets 5-325mg 100tabs 1 by mouth Dirk 08/27/2014 every 6 Tomas, hours as M.D. needed for pain try to use less and less as soon as possible Ventolin HFA 02/04/2014 - Hx Aerosol 108(90B 1units 2 puffs by Thuan 02/07/2016 ase) mouth four Flowers, [employer] mcg/Act times a day as needed Proair [...] two Thuan 03/31/2015 cg/Act puffs into Flowers, [employer] lungs twice a day Zithromax Z-Arnoldo 06/22/2009 [...] 30tabs 1 tab qd Alexi Escalera 02/11/2009 Yoalnde Kim Niferex-150 07/29/2008 - Hx Capsules 1 [...] four times a Judy, day by mouth M.Terence as needed Procardia XL 01/29/2008 - Hx [...] CPT Code Status Date Vaccine Lot # [id number] Given 01/18/2018 Influenza Virus Vaccine, Quadrivalent, Split, Preservative Free 84740 Given 01/18/2018 Influenza Virus Vaccine, Quadrivalent, Split, Preservative Free 07072 Given 12/27/2015 Influenza Virus Vaccine, Quadrivalent, Split, Preservative Free 18492 Given 01/28/2015 Influenza Virus 3Yrs & Over 07436 Given 02/04/2014 Flu Vaccine Split Virus Preservative Free For [id number] Indiv 3Yr Older 69314 Given 08/25/2013 Pneumococcal Conjugate Vaccine 13 Valent For [id number] Intramuscular Use Q2038 Given 01/18/2011 Fluzone Vaccine [id number] 34838 Given 02/04/2010 Influenza Virus 3Yrs & Over [id number] 86284 Given 04/21/2009 Influenza Virus Vaccine, Pandemic Formulation 15405 Given 01/29/2008 Influenza Virus 3Yrs & Over 89967 Given 01/29/2008 Influenza Virus 3Yrs & Over 40221 Given 07/24/2007 Pneumonia Vaccine [id number] 89377 Given 07/24/2007 Tetanus And Diptheria (Td) For Adult Use Preservative Free 46837 Given 07/24/2007 Tetanus And Diptheria (Td) For Adult Use Preservative Free 08932 Given 01/22/2007 Influenza Virus 3Yrs & Over 97701 Given 01/22/2007 Influenza Virus 3Yrs & Over 06559 Vital Signs Date Vital Result Comment 02/25/2018 Height 63.75 inches 5'3.75" Heart Rate 84 /min BP Systolic 106 mmHg BP Diastolic 64 mmHg Body Temperature 98.5 F O2 % BldC Oximetry 96 % 0n 4LNC 02/12/2018 Height 63.75 inches 5'3.75" Weight 209.00 lb Heart Rate 88 /min BP Systolic Sitting 102 mmHg BP Diastolic Sitting 62 mmHg Respiratory Rate 14 /min O2 % BldC Oximetry 95 % on 4L BMI (Body Mass Index) 36.2 kg/m2 02/01/2018 Height 63.75 inches 5'3.75" Weight 205.00 lb BP Systolic 152 mmHg BP Diastolic 96 mmHg Respiratory Rate 20 /min Body Temperature 98.0 F Pain Level 3 BMI (Body Mass Index) 35.5 kg/m2 01/01/2018 Height 63.75 inches 5'3.75" Weight 201.00 lb Heart Rate 79 /min BP Systolic 128 mmHg BP Diastolic 62 mmHg Body Temperature 97.5 F O2 % BldC Oximetry 96 % on 4LNC BMI (Body Mass Index) 34.8 kg/m2 11/16/2017 Height 63.75 inches 5'3.75" Weight 200.00 lb Heart Rate 95 /min BP Systolic Sitting 104 mmHg BP Diastolic Sitting 65 mmHg Body Temperature 98.0 F O2 % BldC Oximetry 92 % pt on 3 liters BMI (Body Mass Index) 34.6 kg/m2 11/02/2017 Height 63.75 inches 5'3.75" Weight 205.00 [...] Test Date Test Result H/L Range Note Laboratory test finding 11/06/2017 Blood Culture SEE RESULT BELOW 1 Comp Metabolic Panel 11/06/2017 Sodium 136 mmol/L 135-145 Potassium 4.3 mmol/L 3.5-5.0 Chloride 98 mmol/L Low 101-111 Co2 Carbon Dioxide 31 mmol/L 22-32 Anion Gap 7 mmol/L 2-11 Glucose 104 mg/dL High 70-100 Blood Urea Nitrogen 21 mg/dL 6-24 Creatinine 0.98 mg/dL High 0.51-0.95 BUN/Creatinine Ratio 21.4 High 8-20 Calcium 9.2 mg/dL 8.6-10.3 Total Protein 6.6 g/dL 6.4-8.9 Albumin 3.7 g/dL 3.2-5.2 Globulin 2.9 g/dL 2-4 Albumin/Globulin Ratio 1.3 1-3 Total Bilirubin 0.40 mg/dL 0.2-1.0 Alkaline Phosphatase 67 U/L 34-104 Alt 15 U/L 7-52 Ast 20 U/L 13-39 Egfr Non- 55.0 >60 Egfr 66.6 >60 2 Urinalysis Profile 11/06/2017 Urine Color Yellow Urine Appearance Clear Urine Specific [place] 1.014 1.010-1.030 Urine pH 6.0 5-9 Urine Urobilinogen Negative Negative Urine Ketones Negative Negative Urine Protein Negative Negative Urine Leukocytes Negative Negative Urine Blood Negative Negative * * Negative 3 Urine Nitrite Negative Negative Urine Bilirubin Negative Negative Urine Glucose Negative Negative Laboratory test finding 11/06/2017 Lactic Acid 1.8 mmol/L 0.5-2.0 4 CBC Auto Diff 11/06/2017 White Blood Count 8.3 10^3/uL 3.5-10.8 Red Blood Count 4.44 10^6/uL 4.00-5.40 Hemoglobin 13.7 g/dL 12.0-16.0 Hematocrit 41 % 35-47 Mean Corpuscular Volume 92 fL 80-97 Mean Corpuscular Hemoglobin 31 pg 27-31 Mean Corpuscular HGB Conc 34 g/dL 31-36 Red Cell Distribution Width 13 % 10.5-15 Platelet Count 300 10^3/uL 150-450 Mean Platelet Volume 7.8 um3 7.4-10.4 Abs Neutrophils 6.9 10^3/uL 1.5-7.7 Abs Lymphocytes 0.7 10^3/uL Low 1.0-4.8 Abs Monocytes 0.7 10^3/uL 0-0.8 Abs Eosinophils 0 10^3/uL 0-0.6 Abs Basophils 0 10^3/uL 0-0.2 Abs Nucleated RBC 0 10^3/uL Granulocyte % 83.4 % High 38-83 Lymphocyte % 8.3 % Low 25-47 Monocyte % 8.1 % High 0-7 Eosinophil % 0.1 % 0-6 Basophil % 0.1 % 0-2 Nucleated Red Blood Cells % 0.1 Laboratory test 11/06/2017 D Dimer Quantitative 245 ng/mL High Less Than 230 5 finding Troponin-I (TnI) 0.03 ng/mL <0.04 CBC Auto Diff 09/18/2017 White Blood Count [...] Reactive Protein 7.60 mg/L High < 5.00 6 Basic Metabolic Panel 08/07/2017 Sodium 136 mmol/L Low 139-145 Potassium 4.0 mmol/L 3.5-5.0 Chloride 99 mmol/L Low 101-111 Co2 Carbon Dioxide 31 mmol/L 22-32 Anion Gap 6 mmol/L 2-11 Glucose 116 mg/dL High 70-100 Blood Urea Nitrogen 17 mg/dL 6-24 Creatinine 0.84 mg/dL 0.51-0.95 BUN/Creatinine Ratio 20.2 High 8-20 Calcium 9.0 mg/dL 8.6-10.3 Egfr Non- 65.7 >60 Egfr 84.6 >60 7 Laboratory test finding 08/07/2017 C Reactive Protein 65.53 mg/L High < 5.00 8 CBC Auto Diff 07/21/2017 White Blood Count [...] finding 07/21/2017 Lactic Acid 1.2 mmol/L 0.5-2.0 9 Comp Metabolic Panel 07/21/2017 Sodium 133 mmol/L [...] >60 Egfr 83.4 >60 10 Laboratory test finding 07/21/2017 Troponin-I (TnI) 0.03 ng/mL <0.04 C Reactive Protein 43.52 mg/L High < 5.00 11 B-Type Natriuretic Peptide BNP 87 pg/mL 12 Inr/Protime 07/21/2017 Inr 0.95 0.77-1.02 Laboratory test finding 07/21/2017 Partial Thrombo Time 37.8 seconds High 26.0-36.3 PTT Rapid Influenza A & B 06/15/2017 Influenza A NEGATIVE Negative 13 Molecular Molecular Influenza B Molecular NEGATIVE Negative Laboratory test 06/15/2017 Rapid Influenza A B SEE RESULT BELOW 14 finding Antigen Comp Metabolic Panel 06/15/2017 Sodium [...] >60 Egfr 94.9 >60 15 Laboratory test finding 06/15/2017 C Reactive Protein 31.14 mg/L High < 5.00 16 Troponin-I (TnI) 0.05 ng/mL High <0.04 17 B-Type Natriuretic Peptide BNP 65 pg/mL 18 Lactic Acid 1.2 mmol/L 0.5-2.0 19 CBC Auto Diff 06/15/2017 White Blood Count [...] % 0 Inr/Protime 06/15/2017 Inr 0.98 0.77-1.02 Urinalysis Profile 05/29/2017 Urine Color Yellow Urine Appearance Clear Urine Specific [place] 1.009 Low 1.010-1.030 Urine pH 8.0 5-9 [...] 92.1 >60 20 Laboratory test finding 05/29/2017 Amylase 55 U/L 29-103 Lipase 38 U/L 11.0-82.0 C Reactive Protein 3.25 mg/L < 5.00 21 Comp Metabolic Panel 03/27/2017 Sodium 137 mmol/L [...] >60 Egfr 75.2 >60 22 Lipid Profile (Trig/Chol/HDL) 03/27/2017 Triglycerides 158 mg/dL 23 Cholesterol 194 mg/dL 24 HDL Cholesterol 54.9 mg/dL 25 LDL Cholesterol 108 mg/dL 26 Lipid Profile (Trig/Chol/HDL) 03/28/2016 Triglycerides 200 mg/dL 27 Cholesterol 198 mg/dL 28 HDL Cholesterol 46.2 mg/dL 29 LDL Cholesterol 112 mg/dL 30 Comp Metabolic Panel 03/28/2016 Sodium 135 mmol/L [...] Alt 12 U/L 7-52 Ast 21 U/L - Egfr Non- 57.9 >60 Egfr 74.5 >60 31 Comp Metabolic Panel 04/01/2015 Sodium 130 mmol/L [...] Egfr Non- 50.5 >60 Egfr 65.0 >60 32 Lipid Profile (Trig/Chol/HDL) 04/01/2015 Triglycerides 231 mg/dL 33 Cholesterol 195 mg/dL 34 HDL Cholesterol 45.1 mg/dL 35 LDL Cholesterol 104 mg/dL 36 Urinalysis Profile 02/12/2014 Urine Color Rosio Urine Appearance Cloudy Urine Specific [place] 1.017 1.010-1.030 Urine pH 7.0 5-9 Urine Urobilinogen Negative Negative Urine Ketones Negative Negative Urine Protein Negative Negative Urine Leukocytes Negative Negative Urine Blood Negative Negative * * Negative 37 Urine Nitrite Negative Negative Urine Bilirubin Negative Negative Urine Glucose Negative Negative Urine Culture And 02/12/2014 Urine Culture (SEE NOTE) 38 Sensitivities CBC No Diff 02/11/2014 White Blood Count 8.4 10^3/uL 4.8-10.8 39 Red Blood Count 4.77 10^6/uL 4.0-5.4 39 Hemoglobin 15.1 g/dL 12.0-16.0 39 Hematocrit 44 % 35-47 39 Mean Corpuscular Volume 93 fL 80-97 39 Mean Corpuscular Hemoglobin 32 pg High 27-31 39 Mean Corpuscular HGB Conc 34 g/dL 31-36 39 Red Cell Distribution Width 13 % 10.5-15 39 Platelet Count 261 10^3/uL 150-450 39 Mean Platelet Volume 9 um3 7.4-10.4 39 Inr/Protime 02/11/2014 Inr 0.92 0.85-1.06 39 Basic Metabolic Panel 02/11/2014 Sodium 131 mmol/L Low 133-145 39 Potassium 4.8 mmol/L 3.7-5.6 39 Chloride 96 mmol/L Low 101-111 39 Co2 Carbon Dioxide 29 mmol/L 22-32 39 Anion Gap 6 mmol/L 2-11 39 Glucose 68 mg/dL Low 70-100 39 Blood Urea Nitrogen 16 mg/dL 6-24 39 Creatinine 0.85 mg/dL 0.51-0.95 39 BUN/Creatinine Ratio 18.8 8-20 39 Calcium 9.9 mg/dL 8.6-10.3 39 Egfr Non- 65.4 >60 39 Egfr 84.1 >60 39, 40 Type & Screen 02/11/2014 Patient Blood Type O Positive 39 Antibody Screen NEGATIVE 39 Lipid Profile (Trig/Chol/HDL) 08/18/2013 Triglycerides 186 mg/dL 41, 42 Cholesterol 158 mg/dL 41, 43 HDL Cholesterol 41.5 mg/dL 41, 44 LDL Cholesterol 79 mg/dL 41, 45 Comp Metabolic Panel 08/18/2013 Sodium 132 mmol/L Low 133-145 41 Potassium 4.3 mmol/L 3.7-5.6 41 Chloride 97 mmol/L Low 101-111 41 Co2 Carbon Dioxide 26 mmol/L 22-32 41 Anion Gap 9 mmol/L 2-11 41 Glucose 95 mg/dL 70-100 41 Blood Urea Nitrogen 16 mg/dL 6-24 41 Creatinine 0.90 mg/dL 0.51-0.95 41 BUN/Creatinine Ratio 17.8 8-20 41 Calcium 9.4 mg/dL 8.6-10.3 41 Total Protein 6.8 g/dL 6.4-8.9 41 Albumin 4.4 g/dL 3.2-5.2 41 Globulin 2.4 g/dL 2-4 41 Albumin/Globulin Ratio 1.8 1-3 41 Total Bilirubin 0.60 mg/dL 0.2-1.0 41 Alkaline Phosphatase 58 U/L 34-104 41 Alt 13 U/L 7-52 41 Ast 21 U/L 13-39 41 Egfr Non- 61.4 >60 41 Egfr 78.9 >60 41, 46 Vitamin D, 25 Hydroxy 08/18/2013 25-Hydroxy Vitamin D2 <4.0 ng/mL 41 25-Hydroxy Vitamin D3 44 ng/mL 41 25-Hydroxy Vitamin D Total 44 ng/mL 41, 47 Laboratory test finding 10/11/2012 Inr 1.82 High [...] >60 Egfr 56.8 >60 48 Laboratory test finding 09/12/2012 Troponin I 0.02 ng/mL 0-0.06 49 Type & Screen 09/12/2012 Patient Blood Type O Positive Antibody Screen NEGATIVE Laboratory test finding 08/19/2012 Hemoglobin A1c 5.5 % Less than 6.0 50 Lipid Profile 08/19/2012 Triglycerides 203 mg/dL High 40-200 (Trig/Chol/HDL) Cholesterol 173 mg/dL Less than 200 HDL Cholesterol 46 mg/dL 40-60 51 Cholesterol/HDL Ratio 3.8 Average 1-4.44 LDL Cholesterol 86.4 mg/dL Less Than 100 52 Comp Metabolic Panel 08/19/2012 Sodium 133 mmol/L [...] Egfr 70.1 >60 53 Lipid Panel - [facility] 08/19/2012 Creatine Kinase 293 U/L High 0-200 54 Surgical Pathology 03/14/2012 S RUN DATE: <SEE NOTE> Lipid Profile 08/17/2011 Triglyceride 254 mg/dL High 40-200 (Trig/Chol/HDL) Cholesterol 173 mg/dL Less Than 200 56 High Density Lipoprotein 42 mg/dL 40-60 57 Cholesterol/HDL Ratio 4.12 AVERAGE 1-4.44 Low Density Lipoprotein 80 mg/dL Less Than 100 58 Comp Metabolic Panel 08/17/2011 Sodium 135 mmol/L [...] eGFR 70.3 > 60 61 Laboratory test finding 08/17/2011 Hemoglobin A1c 6.3 % High Less Than 6.0 62 Laboratory test finding 04/04/2011 Alt (SGPT) 23 U/L 14-54 Alkaline Phosphatase 04/04/2011 Alkaline Phosphatase,S 62 U/L 55 - 142 63 Isoenzyme Liver 1% 51.6 % 27.8-76.3 Liver 1 32.0 IU/L 16.2-70.2 Liver 2% 5.6 % 0.0-8.0 Liver 2 3.5 IU/L 0.0-5.8 Bone % 42.8 % 19.1-67.7 Bone 26.5 IU/L 12.1-42.7 Intestine % 0.0 % 0.0-20.6 Intestine 0.0 IU/L 0.0-11.0 Placental NotPresent () 64 Lipid Profile (Trig/Chol/HDL) 04/04/2011 Triglyceride 273 mg/dL High 40- 200 Cholesterol 166 mg/dL Less Than 200 65 High Density Lipoprotein 39 mg/dL Low 40-60 66 Cholesterol/HDL Ratio 4.26 AVERAGE 1-4.44 Low Density Lipoprotein 72 mg/dL Less Than 100 67 Laboratory test finding 01/18/2011 Hemoglobin A1c 5.5 5-7 Lipid Profile (Trig/Chol/HDL) 07/14/2010 Triglyceride 349 mg/dL High 40- 200 Cholesterol 224 mg/dL High Less Than 200 68 High Density Lipoprotein 39 mg/dL Low 40-60 69 Cholesterol/HDL Ratio 5.74 AVERAGE High 1-4.44 Low Density Lipoprotein 115 mg/dL High Less Than 100 70 Basic Metabolic Panel 07/14/2010 Sodium 134 mmol/L [...] eGFR 70.5 > 60 72 Laboratory test finding 07/14/2010 TSH 2.93 MIU/ML [...] 63.1 > 60 75 CBC With Manual Diff 06/22/2010 White Blood [...] eGFR 47.8 > 60 79 Laboratory test finding 03/23/2010 Carcino Embryonic 1.99 NG/ML 0-5 80 Antigen Comp Metabolic Panel 12/22/2009 Sodium 134 [...] 91.5 > 60 84 Laboratory test finding 12/22/2009 Carcino Embryonic Antigen 2.32 NG/ML 0 -5 85 CBC With Manual Diff 12/22/2009 White Blood [...] Count 4.9 RBC Morphology NORMAL Laboratory test finding 08/03/2009 Carcino Embryonic Antigen 1.48 NG/ML 0 -5 86 Comp Metabolic Panel 08/03/2009 Sodium 135 mmol/L [...] 79.8 > 60 91 CBC With Manual Diff 08/03/2009 White Blood [...] RBC Morphology NORMAL Comp Metabolic Panel 04/26/2009 Sodium 136 mmol/L [...] eGFR 91.5 > 60 96 Laboratory test finding 04/26/2009 Carcino Embryonic Antigen 1.59 NG/ML 0 -5 97 CBC With Manual Diff 04/26/2009 White Blood [...] Count 3.3 Anisocytosis SLIGHT Laboratory test finding 03/31/2009 Vitamin B12 372 [...] NOTE) 98 Serum Immunofixation (SEE NOTE) 99 Lydiao 03/31/2009 Cary-1 Negative titer <1:240 Cary-2 Negative titer <1:240 Cary-3 Negative titer <1:240 Agna-1 Negative titer <1:240 Mop Worker-1 Negative titer <1:240 Mop Worker-2 Negative titer <1:240 Mop Worker-Tr Negative titer <1:240 Amphiphysin AB Negative titer <1:240 CRMP-5-Igg Negative titer () 100 Striational AB Negative titer <1:60 101 P/Q-Type Calcium Channel AB 0.00 nmol/L <=0.02 102 N-Type Calcium Channel AB 0.00 nmol/L <=0.03 103 Ach Receptor Binding AB 0.00 nmol/L <=0.02 104 Achr Ganglionic Neuronal AB 0.01 nmol/L <=0.02 105 VGKC AB, Serum 0.00 nmol/L <=0.02 106 Basic Metabolic Panel 03/23/2009 Sodium 140 mmol/L [...] > 60 eGFR 70.7 > 60 110 Comp Metabolic Panel 01/20/2009 Sodium 138 mmol/L 135-145 Potassium 3.5 mmol/L 3.5-5.0 Chloride 103 mmol/L 101-111 Co2 (Carbon Dioxide) 27.0 mmol/L 22-32 Anion Gap 8.0 mmol/L 2-11 111 Glucose 100 mg/dL 70-100 112 BUN 15 mg/dL 6-24 Creatinine 1.00 mg/dL 0.50-1.40 One Over Creatinine 1.00 BUN/Creatinine Ratio 15.0 8-20 Calcium 9.4 mg/dL 8.1-9.9 113 Total Protein 7.2 GM/DL 6.2-8.1 Albumin 4.0 GM/DL 3.2-5.2 Globulin 3.2 GM/DL 2-4 Albumin/Globulin Ratio 1.3 1-3 Bilirubin Total 0.7 mg/dL 0.4-1.5 114 Alkaline Phosphatase 74 U/L 30-110 Alt (SGPT) 28 U/L 14-54 Ast (Sgot) 34 U/L 12-42 eGFR Non- 58.4 > 60 eGFR 70.7 > 60 115 Lipid Profile (Trig/Chol/HDL) 01/20/2009 Triglyceride 317 mg/dL High 40- 200 Cholesterol 247 mg/dL High Less Than 200 116 High Density Lipoprotein 35 mg/dL Low 40-60 117 Cholesterol/HDL Ratio 7.06 AVERAGE High 1-4.44 Low Density Lipoprotein 149 mg/dL High Less Than 100 118 Laboratory test finding 01/20/2009 TSH 3.32 MIU/ML 0.34-5.60 CBC With Manual Diff 01/20/2009 White Blood [...] mmol/L 22-32 Anion Gap 10.0 mmol/L 2-11 119 Glucose 99 mg/dL 70-100 120 BUN 16 mg/dL 6-24 Creatinine 0.90 mg/dL 0.50-1.40 One Over Creatinine 1.10 BUN/Creatinine Ratio 17.8 8-20 Calcium 9.6 mg/dL 8.1-9.9 121 Total Protein 7.1 GM/DL 6.2-8.1 Albumin 4.1 GM/DL 3.2-5.2 Globulin 3.0 GM/DL 2-4 Albumin/Globulin Ratio 1.4 1-3 Bilirubin Total 0.5 mg/dL 0.4-1.5 122 Alkaline Phosphatase 73 U/L 30-110 Alt (SGPT) 26 U/L 14-54 Ast (Sgot) 34 U/L 12-42 eGFR Non- 66.0 > 60 eGFR 79.8 > 60 123 Iron & Iron Binding Capacity 01/20/2009 Iron Total 91 g/dL 28-170 Unsaturated Iron Binding 287 g/dL Total Iron Binding Capacity 378 g/dL 250-450 % Iron Saturation 24 % 15-55 Laboratory test finding 01/20/2009 Ferritin 65 NG/ML 11.0-307 Vitamin B12 326 pg/mL 180-914 Carcino Embryonic Antigen 1.47 NG/ML 0-5 124 Protein Electrophoresis Serum 01/20/2009 Albumin 3.80 GM/DL [...] 7.3 GM/DL 6.2-8.1 Spep Comments (SEE NOTE) 125 Laboratory test finding 03/04/2008 Carcino Embryonic 41.68 NG/ML High 0-5 126 Antigen Comp Metabolic Panel 03/04/2008 Sodium 134 [...] 28 U/L 12-42 Surgical Pathology 03/04/2008 Surgical <SEE 130 Pathology NOTE> Protein 02/27/2008 Albumin 3.04 GM/DL 3.0-4.3 131 Electrophoresis Serum 5 Alpha 1 0.20 GM/DL 0.09-0.33 131 Alpha 2 0.98 GM/DL 0.59-1.18 131 Beta 1.08 GM/DL High 0.68-1.02 131 Gamma 1.40 GM/DL 0.76-1.60 131 Albumin % 45.4 % Low 46-63 131 Alpha 1 % 3.0 % 1.2-5.3 131 Alpha 2 % 14.6 % 9-17 131 Beta % 16.1 % High 10-16 131 Gamma % 20.9 % 12-22 131 A/G Ratio 0.8 Low 0.9-2 131 Total Protein 6.7 GM/DL 6.2-8.1 131 Spep Comments (SEE NOTE) 131, 132 Comp Metabolic Panel 02/27/2008 Sodium 137 mmol/L 135-145 131 Potassium 3.5 mmol/L 3.5-5.0 131 Chloride 101 mmol/L 101-111 131 Co2 (Carbon Dioxide) 27.0 mmol/L 22-32 131 Anion Gap 9.0 mmol/L 2-11 131, 133 Glucose 134 mg/dL High 70-100 131, 134 BUN 11 mg/dL 6-24 131 Creatinine 0.80 mg/dL 0.50-1.40 131 One Over Creatinine 1.20 131 BUN/Creatinine Ratio 13.8 8-20 131 Calcium 9.5 mg/dL 8.1-9.9 131, 135 Total Protein 6.7 GM/DL 6.2-8.1 131 Albumin 3.6 GM/DL 3.2-5.2 131 Globulin 3.1 GM/DL 2-4 131 Albumin/Globulin Ratio 1.2 1-3 131 Bilirubin Total 0.3 mg/dL Low 0.4-1.5 131 Alkaline Phosphatase 105 U/L 30-110 131 Alt (SGPT) 15 U/L 14-54 131 Ast (Sgot) 24 U/L 12-42 131 Laboratory test finding 02/27/2008 Ferritin < 10 NG/ML Low 11.0-307 131 Erythrocyte Sed Rate 59 MM/HR High 0-40 131 Iron & Iron Binding Capacity 02/27/2008 Iron Total 20 g/dL Low 28-170 131 Unsaturated Iron Binding 350 g/dL 131 Total Iron Binding Capacity 370 g/dL 250-450 131 % Iron Saturation 5 % Low 15-55 131 Laboratory test finding 02/19/2008 Hemoglobin A1c 5.8 % <6.0 136 CBC With Manual Diff 02/19/2008 White Blood [...] Hypochromasia 2+ Target Cells FEW Stomatocytes FEW Comp Metabolic Panel 01/29/2008 Sodium 139 mmol/L [...] Total Protein 7.5 GM/DL 6.2-8.1 Lipid Profile (Trig/Chol/HDL) 01/29/2008 Triglyceride 311 mg/dL High 40- 200 Cholesterol 226 mg/dL High Less Than 200 140 Cholesterol/HDL Ratio 7.79 AVERAGE High 1-4.44 Low Density Lipoprotein 135 mg/dL High Less Than 100 141 High Density Lipoprotein 29 mg/dL Low 40-60 142 Laboratory test finding 01/29/2008 TSH 1.71 MIU/ML [...] 01/29/2008 Hemoglobin A1c 6.2 % High <6.0 143 Vitamin D, 25 Hydroxy 01/29/2008 25-Hydroxy Vitamin D2 <4.0 ng/mL () 25-Hydroxy Vitamin D3 35 ng/mL () 25-Hydroxy Vitamin D Total 35 ng/mL () 144 1 SEE RESULT BELOW Name: FRANCISCA COBURN : [address]: Wanda Kraus MD Acct: [id number] Unit: [id number] AGE: 77 Location: [place] [address] Re11/06/17 SEX: F Status: ADM IN SPEC: [id number] JUAN ANTONIO: 11/06/[address] [facility] [address]: Carlos Rhodes MD REQ: [id number] RECD: 11/06/17 STATUS: MARYANN FLORES DR: Echo Rivero [employer] _ SOURCE: BLOOD,VENO SPDESC: ORDERED: Blood Cult Procedure Result Reported Site Aerobic Culture Bottle Final 11/11/17- 0855 ML No Growth Day 5 Anaerobic Culture Bottle Final 11/11/17- 0855 ML No Growth Day 5 * ML - Main Lab . END OF REPORT DEPARTMENT OF PATHOLOGY, [address] [place] [address] Riky Samayoa M.D. Director [facility] # [id number] 2 Because ethnic data is not always [...] 5 Kidney failure <15 (or dialysis) 3 *Ascorbic acid is present which may interfere with detection of blood. 4 [facility] Severe Sepsis and Septic Shock Management Bundle Measure requires all lactic acids initially measuring >2.0 mmol/L be repeated. 5 Please note: The following may produce a false positive D Dimer test: - Rheumatoid factor greater than 60 IU/ml - Plasma hemoglobin greater than 0.05 gm/dl - Bilirubin greater than 50 mg/dl - Lipids greater than 1000 mg/dl - FDP greater than 20 ug/ml 6 Acute inflammation: >10.00 7 Because ethnic [...] (or dialysis) 8 Acute inflammation: >10.00 9 [facility] Severe Sepsis and Septic Shock Management Bundle [...] pg/mL: likely moderate to severe CHF 13 Clinical Pathologist: [id number] SEE RESULT BELOW Name: FRANCISCA COBURN : [address]: Heriberto Mejias MD Acct: [id number] Unit: [id number] AGE: 77 Location: ED Re06/15/17 SEX: F Status: REG ER SPEC: [id number] JUAN ANTONIO: 06/15/17-[address] [facility] [address]: Heriberto Mejias MD REQ: [id number] RECD: 06/15/17 STATUS: MARYANN FLORES DR: Echo Rivero AND TAXI INSTRUCTOR BUS TROLLEY _ SOURCE: TIMA SPDES: ORDERED: Flu A B Request Procedure Result Reported Site Rapid Influenza A B Request Final 06/15/17- 1329 ML Specimen received for Influenza A/B Molecular testing * ML - Main Lab . END OF REPORT DEPARTMENT OF PATHOLOGY, [address] [place] [address] Riky Samayoa M.D. Director [facility] # [id number] 15 Because ethnic data is not always [...] inflammation: >10.00 17 Result TnIDx:0.05 Called to [id number] at: 13:32:38 by:[email or web address] Read back by: [id number] 18 >100 to <200 pg/mL: likely compensated congestive heart failure (CHF) 200 to 400 pg/mL: likely moderate CHF >400 pg/mL: likely moderate to severe CHF 19 [facility] Severe Sepsis and Septic Shock Management Bundle [...] 5 Kidney failure <15 (or dialysis) 32 Because ethnic data is not always readily [...] 15-29 5 Kidney failure <15 (or dialysis) 33 Desirable <150 Borderline high 150-199 High 200-499 Very High >500 34 Desirable <200 Borderline high 200-239 High >239 35 Low <40 Desirable: 40-60 High: >60 36 Desirable: <100 mg/dL Near Optimal: 100-129 mg/dL Borderline High: 130-159 mg/dL High: 160-189 mg/dL Very High: >189 mg/dL 37 *Ascorbic acid is present which may interfere with detection of blood. 38 RUN DATE: 02/14/14 [facility] LAB LIVE PAGE 1 RUN TIME: [address] [place] [address] Specimen Inquiry Name: FRANCISCA COBURN : [address]: Jose Marin MD Acct: [id number] Unit: [id number] AGE: 74 Location: [facility] Re02/12/14 SEX: F Status: REG REF SPEC: [id number] JUAN ANTONIO: 02/12/14-[address] [facility] [address]: Jose Marin MD REQ: [id number] RECD: 02/12/14-125 STATUS: MARYANN FLORES DR: Alexi Kim III, MD _ SOURCE: URINE SPDESC: ORDERED: Urine Culture Procedure Result Verified Site Urine Culture Final 02/14/14- 0807 ML Organism 1 ESCHERICHIA COLI [place] Count 75-100,000 (Many) CFU/ML Organism 2 ENTEROCOCCUS SPECIES GP D [place] Count >100,000 (Many) CFU/ML 1. ESCHERICHIA [...] performed at Main Lab DEPARTMENT OF PATHOLOGY, [facility] [employer] [place] [address] Riky Samayoa M.D. Director [facility] # [id number] RUN DATE: 02/14/14 [facility] LAB LIVE PAGE 2 RUN TIME: 806 [facility] [employer] [place], [place] [address] Specimen Inquiry Patient: FRANCISCA COBURN [id number] (Continued) Specimen: [id number] Collected: 02/12/14-1199 Received: 02/12/14-1250 (Continued) Procedure Result [...] These antibiotics are not available in the [facility] Formulary Contact the Microbiology Department for any additional antibiotic reporting. Contact the Microbiology Department for any additional antibiotic reporting. END OF REPORT * ML=Testing performed at Main Lab DEPARTMENT OF PATHOLOGY, [address] [place] [address] Riky Samayoa M.D. Director [facility] # [id number] SURGERY DATE: 02/17/14 40 Because ethnic [...] levels within this range. Test Performed by: [facility] - [address] [address] Geriatric Nursing Assistant: Souleymane Weinstein III, M.D. 48 Because ethnic [...] 0.06 ng/mL Not supportive of diagnosis of IL 0.06 - 0.50 ng/mL Indeterminate: suggest serial studies if clinically indicated. Greater than 0.5 ng/mL Consistent with diagnosis of IL 50 Therapeutic target for the treatment of diabetes Mellitus patients is <7% HBA1C, and in selective patients <6.0%.Please refer to [place] [employer] Association Diabetic care guidelines for further [...] PT IS FASTING 55 RUN DATE: 03/18/12 [facility] LAB LIVE PAGE 1 RUN TIME: [address] [place] [address] Specimen Inquiry Name: MELLISSAFRANCISCA Canela Kesha : [address]: Bj KLEIN,Cuong Be Acct: [id number] Unit: [id number] AGE: 72 Location: [facility] Re03/14/12 SEX: F Status: REG REF SPEC: [id number] JUAN ANTONIO: 03/14/12- DR: Cuong Lorenzo MD REQ: [id number] RECD: 03/15/12 STATUS: ASHLY FLORES DR: Abram [...] specimen is received in formalin labelled Francisca Shirleyjenniferrola, Rectal Polyp Hot Snare, and consists of a faustin, polypoid fragment measuring 0.7 x 0.5 x 0.3 cm. Submitted entirely, one cassette. CONTINUED ON NEXT PAGE * ML=Testing performed at Main Lab DEPARTMENT OF PATHOLOGY, [facility] [employer] [place] [address] Riky Samayoa M.D. Director [facility] Permit #[id number] RUN DATE: 03/18/12 [facility] LAB LIVE PAGE 2 RUN TIME: [address] [place] [address] Specimen Inquiry Patient: FRANCISCA COBURN [id number] (Continued) GROSS DESCRIPTION (Continued) Signed (signature on file) Riky Samayoa MD 1404 END OF REPORT * ML=Testing performed at Main Lab DEPARTMENT OF PATHOLOGY, [address] [place] [address] Riky Samayoa M.D. Director [facility] Permit #[id number] CHOLESTEROL INTERPRETATION: Desirable: Less than 200 [...] IN SELECTIVE PATIENTS <6.0%. PLEASE REFER TO [place] [employer]ATION DIABETIC CARE GUIDELINES FOR FURTHER INFORMATION. 63 Test Performed by: [facility] Dpt of Lab Med and Pathology [address] [place] [address] Geriatric Nursing Assistant: Souleymane Weinstein III, M.D. 64 -- REFERENCE VALUE -- Not present Test Performed by: [facility] Dpt of Lab Med and Pathology [address] [place] [address] Geriatric Nursing Assistant: Souleymane Weinstein III, M.D. 65 CHOLESTEROL INTERPRETATION: [...] has been shown to interfere with the Jendrassik-Browndell method for measuring total bilirubin. Samples from [...] change was based on recommendations from the [place] [employer]. 78 A metabolite of Naproxen, [...] SERUM LEVELS OF CEA MEASURED USING THE Kuli Kuli ACCESS IMMUNOASSAY SYSTEM SHOULD NOT BE INTERPRETED [...] change was based on recommendations from the [place] [employer]. 83 A metabolite of Naproxen, O-desmethylnaproxen, has been shown to interfere with the Jendrassik-Browndell method for measuring total bilirubin. Samples from [...] change was based on recommendations from the [place] [employer]. 89 Please note change in reference range effective 07 . 90 A metabolite of Naproxen, O-desmethylnaproxen, has been shown to interfere with the Jendrassik-Browndell method for measuring total bilirubin. Samples from [...] change was based on recommendations from the [place] [employer]. 94 Please note change in reference range effective 07 . 95 A metabolite of Naproxen, O-desmethylnaproxen, has been shown to interfere with the Jendrassik-Browndell method for measuring total bilirubin. Samples from [...] LEVELS OF CEA MEASURED USING THE NAEEM NVISION MEDICAL ACCESS IMMUNOASSAY SYSTEM SHOULD NOT BE INTERPRETED ABSOLUTE EVIDENCE OF THE PRESENCE OR ABSENCE OF DISEASE. THE CEA VALUE SHOULD BE USED IN CONJUNCTION WITH OTHER PERTINENT CLINICAL DIAGNOSTIC PROCEDURES. 98 NORMAL ELECTROPHORETIC PATTERN. 99 NORMAL SERUM IMMUNOFIXATION ELECTROPHORETIC PATTERN. NO MONOCLONAL PROTEIN DETECTED. 10 -- REFERENCE VALUE -- 0 Negative at <1:240 Titers lower than 1:240 may be detectable by recombinant CRMP-5 western blot analysis. CRMP-5 western blot analysis will be done by request on stored serum (held 4 weeks). This supplemental testing is recommended in cases of chorea, vision loss, cranial neuropathy and myelopathy. Contact [facility] Inquiry at [phone] (internally [phone])to add-on CRMP-5-IgG Western Blot, S. Test Performed by: [facility] Dpt of Lab Med and Pathology [address] [place] [address] Geriatric Nursing Assistant: Souleymane Weinstein III, M.D. 10 Test Performed by: 1 [facility] Dpt of Lab Med and Pathology [address] [place] [address] Geriatric Nursing Assistant: Souleymane Weinstein III, M.D. 10 Test Performed by: 2 [facility] Dpt of Lab Med and Pathology [address] [place] [address] Geriatric Nursing Assistant: Souleymane Weinstein III, M.D. 10 Test Performed by: 3 [facility] Dpt of Lab Med and Pathology [address] [place] [address] Geriatric Nursing Assistant: Souleymane Weinstein III, M.D. 10 Test Performed by: 4 [facility] Dpt of Lab Med and Pathology [address] [place] [address] Geriatric Nursing Assistant: Souleymane Weinstein III, M.D. 10 Test Performed by: 5 [facility] Dpt of Lab Med and Pathology [address] [place] [address] Geriatric Nursing Assistant: Souleymane Weinstein III, M.D. 10 Test Performed by: 6 [facility] Dpt of Lab Med and Pathology [address] [place] [address] Geriatric Nursing Assistant: Souleymane Weinstein III, M.D. 10 Anion gap measurement may be of limited value in the 7 presence of any alkalosis, especially in a combined acid base disorder. . 10 Note change in reference range as of 12/05/07. The 8 change was based on recommendations from the [place] [employer]. 10 Please note change in reference range effective 07 9 . 11 Because ethnic data is not always readily available, 0 this report includes an eGFR for both [...] 5 Kidney failure <15 (or dialysis) 11 Anion gap measurement may be of limited value in the 1 presence of any alkalosis, especially in a combined acid base disorder. . 11 Note change in reference range as of 12/05/07. The 2 change was based on recommendations from the [place] [employer]. 11 Please note change in reference range effective 07 3 . 11 A metabolite of Naproxen, O-desmethylnaproxen, has been 4 shown to interfere with the Jendrassik-Browndell method for measuring total bilirubin. Samples from patients who have taken Naproxen have shown spurious elevation in total bilirubin levels. 11 Because ethnic data is not always readily available, 5 this report includes an eGFR for both [...] 5 Kidney failure <15 (or dialysis) 11 CHOLESTEROL INTERPRETATION: 6 Desirable: Less than 200 MG/DL Borderline-High Risk: 200-239 MG/DL High-Risk: 240 MG/DL and over 11 HDL INTERPRETATION: 7 Undesirable: High Risk: Less than 40 MG/DL Desirable: Low Risk: Greater than 60 MG/DL 11 LDL INTERPRETATION: 8 Low Risk Optimal Level: LDL Less than 100 MG/DL Near or Above Optimal: LDL 100-129 MG/DL Borderline High Risk: LDL 130-159 MG/DL High Risk: LDL 160-189 MG/DL Very High Risk: LDL Greater than 189 MG/DL 11 Anion gap measurement may be of limited value in the 9 presence of any alkalosis, especially in a combined acid base disorder. . 12 Note change in reference range as of 12/05/07. The 0 change was based on recommendations from the [place] [employer]. 12 Please note change in reference range effective 07 1 . 12 A metabolite of Naproxen, O-desmethylnaproxen, has been 2 shown to interfere with the Jendrassik-Agusto method for measuring total bilirubin. Samples from patients who have taken Naproxen have shown spurious elevation in total bilirubin levels. 12 Because ethnic data is not always readily available, 3 this report includes an eGFR for both [...] 5 Kidney failure <15 (or dialysis) 12 SMOKING MAY INCREASE VALUES 4 SERUM LEVELS OF CEA MEASURED USING THE NAEEM NVISION MEDICAL ACCESS IMMUNOASSAY SYSTEM SHOULD NOT BE INTERPRETED ABSOLUTE EVIDENCE OF THE PRESENCE OR ABSENCE OF DISEASE. THE CEA VALUE SHOULD BE USED IN CONJUNCTION WITH OTHER PERTINENT CLINICAL DIAGNOSTIC PROCEDURES. 12 NORMAL ELECTROPHORETIC PATTERN. 5 12 SMOKING MAY INCREASE VALUES 6 SERUM LEVELS OF CEA MEASURED USING THE NAEEM DEEPIKA ACCESS IMMUNOASSAY SYSTEM SHOULD NOT BE INTERPRETED ABSOLUTE EVIDENCE OF THE PRESENCE OR ABSENCE OF DISEASE. THE CEA VALUE SHOULD BE USED IN CONJUNCTION WITH OTHER PERTINENT CLINICAL DIAGNOSTIC PROCEDURES. 12 Anion gap measurement may be of limited value in the 7 presence of any alkalosis, especially in a combined acid base disorder. . 12 Note change in reference range as of 12/05/07. The 8 change was based on recommendations from the [place] [employer]. 12 Please note change in reference range effective 07 9 . 13 ---- 0 RUN DATE: 03/05/08 [facility] NMI LIVE PAGE 1 RUN TIME: 141 Specimen Inquiry RUN USER: INTERFACE -- Name: FRANCISCA COBURN [facility]#: [id number] Status: REG REF Re03/04/08 Age/Sex: 68/F Unit#: [id number] Location: [address] [place] [address]. : [birth year] -- Specimen: [id number] Spec Date: 03/04/[address]: Joce [...] Signed Electronically by: RIKY SAMAYOA MD 03/05/08 0300 -- -- DEPARTMENT OF PATHOLOGY, [address] [place] [address] [facility] Permit #[id number] Riky Samayoa M.D. Director Nghia Vasquez M.D. [employer]ident Responder Dir ricardo -- 13 PATIENT MAY HAVE RESULTS PER DOCTOR'S AUTHORIZATION. Questions regarding this report should 1 be directed to your doctor. 13 INCREASED BETA GLOBULIN- CONSISTENT WITH HYPERLIPO- 2 PROTEINEMIA OR IRON DEFICIENCY. 13 Anion gap measurement may be of limited value in the 3 presence of any alkalosis, especially in a combined acid base disorder. . 13 Note change in reference range as of 12/05/07. The 4 change was based on recommendations from the [place] [employer]. 13 Please note change in reference range effective 07 5 . 13 THERAPEUTIC TARGET FOR THE TREATMENT OF DIABETES 6 MELLITUS PATIENTS IS <7% HBA1C, AND IN SELECTIVE PATIENTS <6.0%. PLEASE REFER TO [place] [employer]OC[employer]ATION DIABETIC CARE GUIDELINES FOR FURTHER INFORMATION. 13 Anion gap measurement may be of limited value in the 7 presence of any alkalosis, especially in a combined acid base disorder. . 13 Please note change in reference range effective 07 8 . 13 Note change in reference range as of 12/05/07. The 9 change was based on recommendations from the [place] [employer]. 14 CHOLESTEROL INTERPRETATION: 0 Desirable: Less than 200 MG/DL Borderline-High Risk: 200-239 MG/DL High-Risk: 240 MG/DL and over 14 LDL INTERPRETATION: 1 Low Risk Optimal Level: LDL Less than 100 MG/DL Near or Above Optimal: LDL 100-129 MG/DL Borderline High Risk: LDL 130-159 MG/DL High Risk: LDL 160-189 MG/DL Very High Risk: LDL Greater than 189 MG/DL 14 HDL INTERPRETATION: 2 Undesirable: High Risk: Less than 40 MG/DL Desirable: Low Risk: Greater than 60 MG/DL 14 THERAPEUTIC TARGET FOR THE TREATMENT OF DIABETES 3 MELLITUS PATIENTS IS <7% HBA1C, AND IN SELECTIVE PATIENTS <6.0%. PLEASE REFER TO [place] [employer] DIABETIC CARE GUIDELINES FOR FURTHER INFORMATION. 14 -- REFERENCE VALUE -- 4 25-HYDROXY D TOTAL (D2+D3) Optimum levels in the normal population are 25-80 Test Performed by: [facility] Dpt of Lab Med and Pathology [address] [place] [address] Geriatric Nursing Assistant: Souleymane Weinstein III, M.D. Procedures Date CPT Code Description Status 01/15/2018 05978 Admin Of Inj Completed 11/07/2017 Mammogram Completed 08/31/2017 81435 EKG Tracing & Interpretation Completed 06/17/2017 21534 ECHO Transthorasic Realtime 2D W Doppler & Color Flow Completed Hosp 06/16/2017 68593 EKG, Interpretation Only Completed 03/30/2017 Mammogram Completed 02/27/2017 24302 Diffusing Capacity Completed 02/27/2017 53543 Spirometry Incl Graphic Record Completed 10/27/2016 49975 Admin Of Inj Completed 02/29/2016 03364 Chemotherpy Admin Subcutaneous/Im Non-Hormonal Completed Anti-Neoplastic 05/11/2015 22751 Chemotherpy Admin Subcutaneous/Im Non-Hormonal Completed Anti-Neoplastic 04/01/2015 Bone Mineral Density Test Completed 04/01/2015 Mammogram Completed 03/31/2015 68462 Pulmonary Stress Test Simple Completed 10/07/2014 71212 Admin Of Inj Completed 09/23/2014 02017 Pulmonary Stress Test Simple Completed 04/20/2014 63393 Admin Of Inj Completed 03/30/2014 46347 Rad Exam; Hip Unilat Completed 03/30/2014 23104 Rad Exam; Pelvis Completed 02/17/2014 22594 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 02/17/2014 52667 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 02/12/2014 44026 Spirometry Incl Graphic Record Completed 02/09/2014 27821 Spirometry Incl Graphic Record, Timed Expiratory Flow Completed Rate 02/04/2014 82105 EKG Tracing & Interpretation Completed 12/29/2013 65459 Rad Exam; Hip Unilat Completed 12/29/2013 71372 Rad Exam; Pelvis Completed 10/06/2013 59990 Chemotherpy Admin Subcutaneous/Im Non-Hormonal Completed Anti-Neoplastic 10/06/2013 97213 Admin Of Inj Completed 09/29/2013 82031 Rad Exam; Hip Unilat Comp Completed 09/29/2013 43953 Rad Exam; Pelvis Completed 08/25/2013 58696 Pulmonary Function><Bronchodilator Completed 04/14/2013 77129 Rad Exam; Pelvis Completed 04/14/2013 73670 Rad Exam; Hip Unilat Completed 02/17/2013 Mammogram Completed 02/17/2013 Bone Mineral Density Test Completed 01/06/2013 89770 Rad Exam; Hip Unilat Completed 01/06/2013 79475 Rad Exam; Pelvis Completed 10/14/2012 43312 Rad Exam; Hip Unilat Completed 10/14/2012 15420 Rad Exam; Wrist Limited, 2 Views Completed 10/14/2012 40691 Rad Exam; Pelvis Completed 09/12/2012 95691 Open TX Of Femoral FX,Promimal End,Neck Internal Completed Fixation 09/12/2012 15342 Open TX Of Femoral FX,Promimal End,Neck Internal Completed Fixation 09/12/2012 41882 Closed Treatment Distal Radial FX W/Manipulation Completed 03/20/2012 Colonoscopy Completed 01/25/2011 Mammogram Completed 01/25/2011 Bone Mineral Density Test Completed 02/04/2010 63774 Admin Of Inj Completed 09/29/2009 87100 Pulmonary Function><Bronchodilator Completed 06/23/2009 63710 EKG, Interpretation Only Completed 03/13/2008 71591 EKG, Interpretation Only Completed 03/04/2008 Colonoscopy Completed Encounters Type Date Location Provider CPT E/M Dx Office Visit 02/12/2018 [facility] [address] J44.9 1:45p Services Of Level [facility]ial Setter R09.02 Office Visit 02/01/2018 2:30p [facility] Amanda Lay M.D. 97714 M25.552 C.M.A. M70.62 Z96.642 M76.02 Office Visit 01/01/2018 1:00p [facility] Internal Medicine Echo Rivero N.P. 05561 J44.1 - Aleja M25.552 Office Visit 11/16/2017 2:00p [facility] Internal Medicine Angie Zimmer 84081 J44.1 - Aleja Lanier I10 Office Visit 11/13/2017 11:18a [facility], [place] [address] J44.1 Hospitalists J96.21 I10 E78.5 F41.9 Office Visit 11/12/2017 11:17a [facility], Wanda Montaño, 89923 J96.21 Hospitalists M.DDeep J44.1 I10 E78.5 Office Visit 11/11/2017 11:17a [facility], Wanda Montaño, 81818 J96.21 Hospitalists M.DDeep J44.1 I10 Office Visit 11/10/2017 11:17a [facility], Wanda Montaño, 61650 J44.1 Hospitalists M.DDeep J96.21 I10 Office Visit 11/09/2017 11:16a [facility], Wanda Montaño, 70212 J96.21 Hospitalists M.Terence J44.1 I10 Office Visit 11/08/2017 11:16a [facility], Wanda Montaño, 49137 J44.1 Hospitalists M.DDeep J96.21 I10 Office Visit 11/08/2017 9:54a [facility] [place] [address] J44.1 Services Of [facility] Z99.81 Z87.891 Office Visit 11/07/2017 9:23a [facility] [place] [address] J44.1 Services Of [facility] E66.01 Z87.891 Z99.81 Office Visit 11/07/2017 11:16a [facility] Assoc,pc Wanda Montaño, 44700 J44.0 Hospitalists MValentina J96.21 I10 Office Visit 11/06/2017 11:15a [facility] Wanda Montaño, 76257 J96.21 Hospitalists Yolande J44.1 I10 Office Visit 11/02/2017 3:20p [facility] Internal Medicine Echo Rivero, N.P. 91096 J44.1 - [place] I10 Office Visit 08/31/2017 3:00p [facility] [place] [address] I50.32 [facility] FACC I10 J44.9 I35.0 E78.5 F17.201 I71.4 Office Visit 08/14/2017 1:30p [facility] [place] [address] J44.9 Services [facility] R09.02 Office Visit 08/03/2017 4:00p [facility] Internal Medicine Echo Rivero, N.P. 04941 J44.1 - [place] I10 E87.1 M54.5 I71.4 I34.9 Office Visit 07/27/2017 10:35a [place] MICHELLE Moreno [address] J44.1 Assoc, Hospitalists I50.33 I10 F41.8 Office Visit 07/26/2017 1:32p [facility] [place] [address] Z87.891 [facility] J44.1 I50.31 R06.02 Office Visit 07/26/2017 10:34a [place] MICHELLE Moreno [address]6911 J44.1 Assoc,pc Hospitalists I50.33 I10 F41.8 Office Visit 07/25/2017 10:33a [place] MICHELLE Moreno [address]602 J44.1 Assoc,pc Hospitalists I50.33 I10 F41.8 Office Visit 07/25/2017 3:43p [facility] [place] [address] J44.1 [facility] I50.31 Z87.891 R06.02 Z99.81 Office Visit 07/24/2017 10:31a [facility] Shanti Cody N.P. 87899 J44.1 Hospitalists I50.33 I10 F41.8 Office Visit 07/23/2017 10:29a [facility] Shanti Cody N.P. 38311 J44.1 Hospitalists I10 F41.8 Office Visit 07/22/2017 10[facility] [address] J44.1 Assoc,pc Hospitalists I10 F41.8 Office Visit 07/21/2017 10:27a [facility] Jaylen Uribe, [address] J44.1 Hospitalists Yolande,FACP I10 F41.8 Office Visit 07/03/2017 8:00a [facility] Cheyanne Jules, AND [employer]AXI INSTRUCTOR BUS TROLLEY [address] M54.5 Office Visit 07/01/2017 8:00a [facility] Cheyanne Jules, AND [employer] IN[employer] [address] [place] 16869 M54.5 J44.9 Office Visit 06/26/2017 8:45a [facility] AND [employer] IN[employer] [address] [place] 22671 M54.5 S22.080A Office Visit 06/25/2017 2:00p [facility] Elsi Burciaga, 99065 J44.9 Services Of [facility] N.P. Office Visit 06/20/2017 8:15a [facility] Elinor Muñoz, 18147 S22.080A Yolande J44.9 I50.9 I10 Office Visit 06/19/2017 10:07a [facility] [address] J96.21 Hospitalists J44.1 S22.080A Office Visit 06/18/2017 10:06a [facility] [address] J96.21 Hospitalists J44.1 S22.080A Office Visit 06/17/2017 10:05a [facility] [address] J96.21 Hospitalists J44.1 S22.080A Office Visit 06/16/2017 10:04a [facility] [address] J96.21 Hospitalists J44.1 S22.080A Office Visit 06/15/2017 11:15a [facility], [place] [address] J96.21 Hospitalists J44.1 E87.1 S22.080A Office Visit 06/02/2017 10:59a [facility], [place] [address] M48.54xA Hospitalists K59.03 E87.1 M81.0 Office Visit 06/01/2017 10:58a [facility], [place] [address] M48.54xA Hospitalists K59.03 E87.1 M81.0 Office Visit 05/31/2017 10:57a [facility], [place] [address] M48.54xA Hospitalists K59.03 E87.1 M81.0 Office Visit 05/30/2017 10:55a [facility] Jaylen Uribe, 67727 M48.54xA Assoc, Hospitalists [facility]olande,[facility] K59.03 J44.9 M81.0 Office Visit 05/29/2017 10:53a [facility] [place] [address] M48.54xA Assoc, Hospitalists K59.03 J44.9 M81.0 Office Visit 05/16/2017 2:40p [facility] [place] [address] M54.5 - [place] Office Visit 03/06/2017 1:20p [facility] Internal Medicine Echo Rivero N.P. 16859 J44.9 - [place] M81.0 I10 E78.00 R60.0 Z12.31 Office Visit 02/13/2017 1:00p [facility] [place] [address] J44.9 Services Of [facility] R09.02 Office Visit 01/24/2017 1:45p [facility] Services Of Jose Marin M.D. 99589 Z96.642 C.M.A. M21.752 Office Visit 08/29/2016 2:00p [facility] [facility] - Alexi Kim, [address] I10 Zainab Lanier J44.9 M81.0 Office Visit 08/08/2016 1:00p [place] [address] J44.9 [facility] Office Visit 02/29/2016 2:00p [facility] - Alexi Kim, 06785 I10 Zainab Lanier J44.9 M81.0 E78.2 Z85.038 Z92.29 Office Visit 02/08/2016 1:00p Pul[place] [address] J44.9 [facility] Office Visit 01/26/2016 1:30p [facility] Jose Marin M.D. 45733 Z96.642 C.M.A. Office Visit 09/28/2015 3:45p Pul[facility] [place] [address] J44.9 [facility] J98.4 Office Visit 03/31/2015 1:00p Pul[facility] [place] [address] J44.9 [facility] R09.02 E66.09 Office Visit 03/01/2015 2:00p [facility] - Alexi Kim, 22101 I10 Aleja Lanier J44.9 M81.0 Z12.31 E78.2 Office Visit 01/25/2015 10:45a [facility] Marin M.D. 95825 Z96.642 C.M.A. M16.12 Z09 Office Visit 09/28/2014 1:00p Pul[place] [address] 496 [facility] 799.02 278.00 Office Visit 06/29/2014 10:45a [facility] Jose Marni M.D. 84647 715.95 C.M.A. v54.81 V43.64 Office Visit 04/20/2014 4:00p [facility] Alexi Kim, 99039 724.2 - Aleja Lanier 733.01 V87.49 Office Visit 04/13/2014 11:00a Pulmonology [place] [address] 496 [facility] 518.89 799.02 Office Visit 03/04/2014 1:22p Pulmonology [place] [address] 496 [facility] Office Visit 02/26/2014 2:39p Pulmonology [place] [address] 496 [facility] 786.05 Office Visit 02/25/2014 2:31p Pulmonology [place] [address] 496 [facility] 786.05 Office Visit 02/19/2014 3:03p [facility], Elsi Burciaga, 23394 496 Hospitalists N.P. 401.9 278.00 V43.64 Office Visit 02/18/2014 3:03p [facility], Elsi Burciaga, 83205 496 Hospitalists N.P. 401.9 278.00 V43.64 Office Visit 02/17/2014 3:02p [facility], Shanti Cody N.P. 00781 496 Hospitalists 401.9 278.00 V43.64 Office Visit 02/09/2014 10:15a Pulmonology [place] [address] 496 [facility] V72.83 Office Visit 02/04/2014 2:00p [facility] Alexi Kim, 17905 V72.81 - Aleja Lanier 715.95 401.1 496 272.2 733.01 V04.81 Office Visit 12/29/2013 10:00a [facility] Marin M.D. 41441 715.95 C.M.A. Office Visit 09/29/2013 9:45a [facility] Jose Marin M.D. 98884 715.95 C.M.A. Office Visit 04/14/2013 9:15a [facility] Joes Marin M.D. 43293 820.8 C.M.A. Office Visit 02/24/2013 1:20p [facility] - Alexi Kim, 56779 496 Aleja Lanier 733.00 272.2 401.1 820.8 Office Visit 01/06/2013 9:00a [facility] Marin M.D. 44312 813.42 C.M.A. 820.8 Office Visit 09/15/2012 1:32p [facility], Shanti Cody, N.P. 50273 492.8 Hospitalists 276.1 820.8 813.42 Office Visit 09/14/2012 1:31p [facility], Shanti Cody, N.P. 88772 492.8 Hospitalists 276.1 820.8 813.42 Office Visit 09/13/2012 1:31p [facility], Wandajoaquin Montaño, 30994 492.8 Hospitalists M.D. 820.8 813.42 Office Visit 09/12/2012 1:30p [facility], Elinor Muñoz, 29121 820.8 Hospitalists M.D. 813.42 492.8 276.1 Office Visit 09/12/2012 10:00a [facility] Marin M.D. 22499 820.8 C.M.A. 813.44 Office Visit 02/23/2012 11:00a [facility] Alexi Lali Kim, 87806 401.1 - Aleja Lanier 496 790.21 272.2 733.00 153.3 Office Visit 08/23/2011 11:00a [facility] Alexi Lali Kim, 84645 401.1 - Aleja Lanier 496 790.21 272.2 733.00 153.3 Office Visit 02/22/2011 10:40a DO Not Use [facility] AT Alexi Lali Kim, 41127 401.1 Henry Lanier 272.2 Office Visit 01/18/2011 2:40p DO Not Use [facility] AT Alexi Lali Judy, 21251 401.1 Henry Lanier 272.2 496 790.21 733.00 V76.10 153.8 V04.81 Office Visit 07/11/2010 4:00p DO Not Use [facility] [address] [facility] Henry Lanier 272.2 401.1 Office Visit 01/10/2010 11:20a DO Not Use [facility], 40362 V72.83 [facility] V72.81 366.8 401.9 496 272.2 Office Visit 09/29/2009 11:40a DO Not Use [facility] AT [facility], [address] 496 [facility] 401.9 272.2 Office Visit 06/22/2009 11:40a DO Not Use [facility] AT [facility], 65566 466.0 [facility].D. Office Visit 06/08/2009 2:00p DO Not Use [facility] AT [facility], 22995 401.1 [facility].D. Office Visit 03/01/2009 2:30p DO Not Use [facility] AT [facility], 50869 782.3 [facility] 401.1 Office Visit 02/11/2009 2:30p DO Not Use [facility] AT [facility], 53256 401.1 [facility] 782.3 Office Visit 10/06/2008 2:15p [facility] AT [facility], 60262 724.5 [facility] M.D. Office Visit 07/29/2008 2:30p [facility] AT [facility], 73183 V72.81 [facility] M.D. 401.9 250.00 272.0 733.00 153.3 Office Visit 01/29/2008 2:00p [facility] AT [facility], 23194 272.0 [facility] M.D. 401.1 V04.81 Office Visit 01/21/2008 12:00p [facility] AT [facility], 16814 465.9 [facility] M.D. Office Visit 07/24/2007 2:30p [facility] AT [facility], 72831 250.00 [facility] M.D. 733.00 401.1 V06.5 V03.82 Office Visit 01/22/2007 2:00p [facility] AT [facility], 60768 250.00 [facility] M.D. 272.0 401.1 V04.81 Plan of Care Future Appointment(s):03/08/2018 2:20 pm - Echo Rivero N.P. at [facility] - Fwfnlomkw32/12/2018 - Echo Rivreo N.P.J44.1 Chronic obstructive pulmonary disease w (acute) exacerbationNew Medication:Azithromycin 250 mgPrednisone 20 mgComments:To help you get through your COPD exacerbation and illness I have sent a prescription for Azithromycin and a pulse of Prednisone.Take the Prednisone 20 mg, 3 daily for 3 days, 1 daily for 3 days.Continue to use your nebulizer 3 times daily.If you do not gradually improve, please contact the office.
--- NOTE | 2018-03-18 02:43 | ED ---
Shortness of Breath - HPI Summary HPI Summary: This patient is a 78 year old F brought in by EMS to [facility] with a chief complaint of SOB that was worse tonight as she woke up to use the bathroom. She states uses 3L NC at home. The patient rates the pain 0/10 in severity. Patient reports ANDRADE. Patient denies fever. Pt uses an at home neb and rescue inhaler. She states she gets anxious when she becomes SOB. - History of Current Complaint Chief Complaint: EDShortnessOfBreath Time Seen by Provider: 03/18/18 02:20 Hx Obtained From: Patient Onset/Duration: Lasting Minutes, Still Present, Worse Since Timing: Constant Current Severity: Mild Dyspnea At: Exertion Alleviating Factors: Other - rest Associated Signs & Symptoms: Negative - fever - Allergy/Home Medications Allergies/Adverse Reactions: Allergies Allergy/AdvReac Type Severity Reaction Status Date / Time Adhesive Tape Allergy REDDENED Verified 03/18/18 02:12 SKIN codeine Allergy Hives Verified 03/18/18 02:12 iodine Allergy Rash Verified 03/18/18 02:12 Penicillins Allergy Hives Verified 03/18/18 02:12 pineapple Allergy MOUTH SORE Verified 03/18/18 02:12 tiotropium Allergy HOARSENESS, Verified 03/18/18 02:12 [From Spiriva with TICKLE IN HandiHaler] THROAT raisins Allergy GI Upset Uncoded 03/18/18 02:12 Home Medications: Home Medications Ibuprofen [Advil] 400 mg PO Q6H PRN 03/18/18 [History Confirmed 03/18/18] Loratadine [Claritin 10 MG CAP] 10 mg PO DAILY PRN 03/18/18 [History Confirmed 03/18/18] PMH/Surg Hx/FS Hx/Imm Hx Endocrine/Hematology History: Denies: Hx Anticoagulant Therapy, Hx Diabetes, Hx Thyroid Disease Cardiovascular History: Reports: Hx Aneurysm - AAA diagnosed 05/28/17, Hx Congestive Heart Failure - LACIX, Hx Hypercholesterolemia, Hx Hypertension, Other Cardiovascular Problems/Disorders - HX OF LUNG SURG 2004 RIGHT SIDE. Respiratory History: Reports: Hx Asthma, Hx Chronic Obstructive Pulmonary Disease (COPD) Denies: Hx Sleep Apnea GI History: Reports: Other GI Disorders - Colon CA, current constipation Denies: Hx Ulcer History: Reports: Other Problems/Disorders - Bladder smaller from colon Denies: Hx Dialysis, Hx Renal Disease Musculoskeletal History: Reports: Hx Arthritis, Hx Back Problems, Hx Orthopedic Injury, Hx Osteoporosis, Hx Tendonitis Denies: Hx Bursitis, Hx Scoliosis Sensory History: Reports: Hx Cataracts, Hx Contacts or Glasses Denies: Hx Glaucoma, Hx Hearing Aid, Hx Hearing Problem, Other Sensory Impairments Opthamlomology History: Reports: Hx Cataracts, Hx Contacts or Glasses Denies: Hx Glaucoma, Other Sensory Impairments Neurological History: Reports: Hx Migraine - childhood migraines resolved at 22 years old, Other Neuro Impairments/Disorders - LEFT HIP SX X 2 MO AGO Denies: Hx Headaches, Hx Nerve Disease - Cancer History Cancer Type, Location and Year: COLON 2007, treated with Chemo Hx Chemotherapy: Yes Hx Radiation Therapy: No - Surgical History Surgery Procedure, Year, and Place: Empyema removal 1983, Broken elbow left repair ORIF (plate) Apr 1999 and later hardware removal Colon cancer dx 2007, colon resection. Hernia repair 2009 Partial L Hip Replacement September 2012 Hx Anesthesia Reactions: No - Immunization History Date of Tetanus Vaccine: utd Date of Influenza Vaccine: fall 2017 Infectious Disease History: No Infectious Disease History: Denies: Hx Hepatitis, Hx Human Immunodeficiency Virus (HIV), History Other Infectious Disease, Traveled Outside the [place] in Last 30 Days - Family History Known Family History: Positive: Cardiac Disease, Respiratory Disease, Other - Aortic aneurysm Negative: Blood Disorder - Social History Alcohol Use: Rare Alcohol Amount: 1 GLASS OF WINE DAILY Hx Substance Use: No Substance Use Type: Reports: None Hx Tobacco Use: Yes Smoking Status (MU): Former Smoker Amount Used/How Often: 1 1/2 PPD X 30 YEARS Have You Smoked in the Last Year: No Review of Systems Negative: Fever Positive: Shortness Of Breath, Other - ANDRADE Positive: Anxious All Other Systems Reviewed And Are Negative: Yes Physical Exam - Summary Physical Exam Summary: VITAL SIGNS: Reviewed. GENERAL: Patient is a well-developed and obese female who is lying comfortable in the stretcher. Patient is not in any acute respiratory distress. HEAD AND FACE: No signs of trauma. No ecchymosis, hematomas or skull depressions. No sinus tenderness. EYES: PERRLA, EOMI x 2, No injected conjunctiva, no nystagmus. EARS: Hearing grossly intact. Ear canals and tympanic membranes are within normal limits. MOUTH: Oropharynx within normal limits. NECK: Supple, trachea is midline, no adenopathy, no JVD, no carotid bruit, no c- spine tenderness, neck with full ROM. CHEST: Symmetric, no tenderness at palpation LUNGS: decreased breath sounds bilaterally. There are inspiratory and expiratory wheezes CVS: Regular rate and rhythm, S1 and S2 present, no murmurs or gallops appreciated. ABDOMEN: Soft, non-tender. Distended.. No rebound no guarding, and no masses palpated. Bowel sounds are normal. EXTREMITIES: FROM in all major joints, no edema, no cyanosis or clubbing. NEURO: Alert and oriented x 3. No acute neurological deficits. Speech is normal and follows commands. SKIN: Dry and warm Triage Information Reviewed: Yes Vital Signs On Initial Exam: Initial Vitals Temp Pulse Resp BP Pulse Ox 98.1 F 102 20 146/92 98 03/18/18 02:10 03/18/18 02:10 03/18/18 02:10 03/18/18 02:10 03/18/18 02:10 Vital Signs Reviewed: Yes Diagnostics - Vital Signs Vital Signs Temp Pulse Resp BP Pulse Ox 03/18/18 02:10 98.1 F 102 20 146/92 98 - Laboratory Result Diagrams: 03/18/18 02:44 03/18/18 02:44 Lab Statement: Any lab studies that have been ordered have been reviewed, and results considered in the medical decision making process. - Radiology CXR Radiology Interpretation Completed By: ED Physician Summary of Radiographic Findings: right basal infiltrate. Pending official report. - EKG 0249 Cardiac Rate: NL EKG Rhythm: Sinus Rhythm - at 94 BPM Summary of EKG Findings: there are Q waves in v1 and v2 there is poor R wave progression. Course/Dx - Course Assessment/Plan: This patient is a 78 year old F brought in by EMS to [facility] with a chief complaint of SOB that was worse tonight as she woke up to use the bathroom. She states uses 3L NC at home. The patient rates the pain 0/10 in severity. Patient reports ANDRADE. Patient denies fever. Pt uses an at home neb and rescue inhaler. She states she gets anxious when she becomes SOB. An EKG reveals sinus 94 BPM there are Q waves in v1 and v2 there is poor R wave progression. CXR reveals, right basal infiltrate. Pending official report. Dx COPD PNA. Bloodwork obtained. We discussed patient care with Dr morton and she accepted the patient for admission. Patient will be admitted. The patient is agreeable with this plan. - Diagnoses Provider Diagnoses: COPD (chronic obstructive pulmonary disease), PNA (pneumonia) - Physician Notifications Discussed Care of Patient With: Ayla Morton Time Discussed With Above Provider: 03:36 Instructed by Provider To: Admit As Inpatient Discharge - Sign-Out/Discharge Documenting (check all that apply): Patient Departure - admitted - Discharge Plan Condition: Fair Disposition: ADMITTED TO [facility] Referrals: Angie Zimmer MD [Primary Care Provider] - - Attestation Statements Document Initiated by Scribe: Yes Documenting Scribe: Fransico Thompson Provider For Whom Scribe is Documenting (Include Credential): Rob Panda MD Scribe Attestation: Fransico Gant , scribed for Rob Panda MD on 03/18/18 at 0456. Status of Scribe Document: Ready
[2018-03-18 02:53] LABS: ABS Basophils 0 10^3/ul (0-0.2); ABS Eosinophils 0.2 10^3/ul (0-0.6); ABS Lymphocytes 0.9 10^3/ul (1.0-4.8); ABS Monocytes 0.9 10^3/ul (0-0.8); ABS Neutrophils 6.3 10^3/ul (1.5-7.7); ABS Nucleated RBC 0 10^3/ul; Eosinophil % 2.8 %; Hematocrit 42 % (35-47); Lymphocyte % 10.3 %; Mean Corpuscular HGB Conc 33 g/dl (31-36); Mean Corpuscular Hemoglobin 31 pg (27-31); Mean Corpuscular Volume 92 fL (80-97); Mean Platelet Volume 8.6 fL (7.4-10.4); Nucleated Red Blood Cells % 0; Platelet Count 167 10^3/ul (150-450); Red Blood Count 4.55 10^6/ul (4.00-5.40); Red Cell Distribution Width 13 % (10.5-15); White Blood Count 8.4 10^3/ul (3.5-10.8)
[2018-03-18] MEDS ORDERED: Levofloxacin 750 MG IVPREMIX(* 750 MG/150 ML BAG IVPB ONE (02:54)
[2018-03-18 03:02] LABS: Activated Partial Thrombo Time 38.9 seconds (26.0-36.3); INR 0.92 (0.77-1.02)
[2018-03-18 03:10] LABS: Albumin 3.9 g/dL (3.2-5.2); Albumin/Globulin Ratio 1.4 (1-3); BUN/Creatinine Ratio 23.6 (8-20); C Reactive Protein 25.33 mg/L (<8.01); Calcium 9.6 mg/dL (8.6-10.3); EGFR Non-African American 50.1 (>60); Globulin 2.7 g/dL (2-4); Potassium 4.3 mmol/L (3.5-5.0); Total Bilirubin 0.6 mg/dL (0.2-1.0); Total Protein 6.6 g/dL (6.4-8.9)
[2018-03-18] MEDS: Albuterol 2.5 MG/3 ML NEB.SOL* (0.083%) INH SCH ×4 (04:06→19:24)
[2018-03-18] MEDS ORDERED: Albuterol/Ipratropium NEB.SOL* Albuterol 2.5 MG/Ipratropium 0.5 MG 3 ML INH PRN (04:09)
[2018-03-18] MEDS ORDERED: Senna TAB PO PRN (04:09)
[2018-03-18] MEDS ORDERED: LORazepam TAB(*) 0.5 MG PO PRN (04:09)
[2018-03-18] MEDS ORDERED: Albuterol 2.5 MG/3 ML NEB.SOL* (0.083%) INH SCH (07:00)
--- NOTE | 2018-03-18 07:41 | HP ---
CC: Echo Rivero NP * HISTORY AND PHYSICAL: DATE OF ADMISSION: 03/18/18 PRIMARY CARE PROVIDER: Echo Rivero NP. CHIEF COMPLAINT: Shortness of breath. HISTORY OF PRESENT ILLNESS: Ms. Coburn is a 78-year-old female, who has a history of severe COPD and chronic hypoxic respiratory failure, who uses 3 L of oxygen continuously at home, who presented to the emergency room with complaints of sudden onset of shortness of breath. The patient states that she was feeling fine Sunday and Sunday. Sunday, for most of the day she felt okay ; however, towards the afternoon she began to feel as if needed to use her nebulizer again. She used her nebulizer mid afternoon and then again at approximately 10:00 p.m. She also used her Symbicort at 10:00 p.m. She was watching TV at that time. She then got up to go to the bathroom to get ready for bed and suddenly felt very short of breath. She had marked wheezing and such severe shortness of breath that she contacted 911 and was brought to the emergency room. The patient states currently she is feeling much improved. She states her breathing feels essentially back to her baseline. She does state that she is willing to stay for observation because she is more concerned about going home now and then having to bounce back due to return of shortness of breath. The patient denies any recent cold symptoms. She denies any fevers or chills. She states this came suddenly out of the blue. PAST MEDICAL HISTORY: 1. Severe COPD with chronic hypoxic respiratory failure. 2. Hypertension. 3. AAA. 4. Hyperlipidemia. 5. Hyponatremia likely secondary to SIADH. 6. Peripheral neuropathy. 7. Osteoporosis. 8. History of colon cancer, status post resection and chemotherapy. PAST SURGICAL HISTORY: 1. Partial colectomy. 2. Left total knee replacement. MEDICATIONS: 1. Albuterol 2 puffs inhale q.4 hours p.r.n. shortness of breath. 2. Ibuprofen 400 mg p.o. q.6 hours p.r.n. pain. 3. Claritin 10 mg p.o. daily p.r.n. allergies. 4. Calcium plus D 1 tablet p.o. daily. 5. Symbicort 160/4.5 mcg 2 puffs inhale twice daily. 6. Ascorbic acid 1000 mg p.o. daily. 7. DuoNeb 1 neb inhaled 4 times a day p.r.n. shortness of breath. 8. Lorazepam 0.5 mg p.o. q.6 hours p.r.n. anxiety. 9. Irbesartan 150 mg p.o. daily. 10. Lasix 20 mg p.o. daily. 11. Colace 100 mg p.o. daily. 12. Vitamin B complex 1 capsule p.o. daily. 13. Simvastatin 20 mg p.o. daily. 14. Senna 1 tablet p.o. daily p.r.n. constipation. 15. Lyrica 25 mg p.o. q.a.m., 50 mg p.o. q.p.m. 16. Multivitamin 1 tablet p.o. daily. 17. Vitamin E 400 units p.o. daily. ALLERGIES: PENICILLIN and CODEINE. FAMILY HISTORY: Dad of lung and liver cancer. Mom of natural causes. SOCIAL HISTORY: The patient is a former smoker of 1-1/2 packs per day for approximately 30 years, she quit in 2003. She does not drink alcohol. 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 She is . She has 2 children. Her daughter, Lily, is her healthcare proxy. REVIEW OF SYSTEMS: A complete 11-system review of systems is obtained. Pertinent positives and negatives are as per HPI and otherwise negative. PHYSICAL EXAMINATION GENERAL: The patient is a well-developed elderly obese female seen sitting up in the stretcher, in no acute distress. VITAL SIGNS: Blood pressure is 146/92, pulse 91, respirations 14, temp 98.1, and O2 sat 99% on 3 L. HEENT: Pupils are equal and round. Extraocular muscles are intact. Oropharynx is clear. Oral mucosa is moist. There is no submandibular, cervical , or supraclavicular adenopathy. Thyroid is not enlarged. No thyroid nodules are noted. PULMONARY: There are marked decreased breath sounds in all lung dent, but worse at the bases. Air entry sounds quite tight at the bases. CARDIAC: Normal S1, S2. Regular rate and rhythm. I do not appreciate any murmurs. There is trace bilateral lower extremity leg edema with more significant edema at the ankles. ABDOMEN: Bowel sounds are present. Abdomen is soft, nontender, nondistended. MUSCULOSKELETAL: There is no cyanosis or clubbing of the digits. There is full active range of motion of all 4 extremities. SKIN: Warm and dry. There are no rashes. The patient does have significant spider veins through her lower legs. NEURO: Cranial nerves II through XII are grossly intact. Sensation is intact to light touch throughout. Strength is 5/5 and symmetric both in upper and lower extremities bilaterally. PSYCH: The patient is alert. She is oriented x3. Affect appears appropriate. DIAGNOSTIC STUDIES AND LABORATORY DATA: WBC 8.4, hemoglobin 14.0, hematocrit 40, platelets 167,000. INR 0.92. Sodium 135, potassium 4.3, chloride 99, CO2 of 28, BUN 25 and creatinine 1.06, glucose 131. Lactic acid 1.1. Calcium 9.6, bilirubin 0.6, AST 21, ALT 14, alk phos 54. Troponin 0.06. CRP 25.33. BNP 114. Albumin 3.9. Chest x-ray to my interpretation reveals a patchy infiltrate to the right lower lobe, though this appears generally unchanged from prior. EKG reveals normal sinus rhythm without any acute ST-T wave abnormalities. ASSESSMENT AND PLAN: Ms. Coburn is a 78-year-old female with a history of severe chronic obstructive pulmonary disease and chronic hypoxic respiratory failure on home O2 who presents to the emergency room with complaints of sudden onset of severe shortness of breath. 1. Chronic obstructive pulmonary disease exacerbation. The patient promptly presented to the emergency room at the onset of marked shortness of breath. She reportedly was wheezing quite significantly. However, at this time her wheezing has resolved and her breathing feels back to baseline to her. She continues to have tight sounding air entry and diminished breath sounds throughout. We will plan on admitting the patient under observation status to receive IV steroids and standing nebulizer treatments. Additionally, we will administer azithromycin starting on 01/17/18 as the patient already had a dose of Levaquin today. If the patient's breathing remains stable through early afternoon today, she can likely be discharged home to follow up with her primary care provider. 2. Hypertension. The patient's blood pressure is under fair control. She will continue on her usual doses of irbesartan and Lasix. 3. Hyperlipidemia. Continue simvastatin. 4. Peripheral neuropathy. Continue Lyrica. 5. DVT prophylaxis. According to the Adult Thrombosis Prophylaxis Risk Factor Assessment Guide, the patient has a total risk factor score of 8, making her the highest risk. She will be placed on Lovenox 40 mg subcutaneous daily for DVT prophylaxis. 6. Code status is full. TIME SPENT: Sixty-five minutes was spent admitting this patient. [id number]/CPS #: [id number] MTDD
[2018-03-18] MEDS: Mometasone/Formoter 200/5 MDI INH SCH ×2 (07:46→19:25)
[2018-03-18] MEDS: Losartan TAB* 25 MG PO SCH (08:45)
[2018-03-18] MEDS: Docusate CAP* 100 MG PO SCH (08:47)
[2018-03-18] MEDS: Pregabalin CAP(*) 25 MG PO SCH (08:47)
[2018-03-18] MEDS: Atorvastatin* 10 MG TAB PO SCH (08:48)
[2018-03-18] MEDS: Furosemide TAB* 20 MG PO SCH (08:48)
[2018-03-18] MEDS: Multivitamins/Minerals TAB PO SCH (08:51)
[2018-03-18] MEDS: methylPREDNISolone SOD 40 MG* 1 ML VIAL IV SCH ×2 (11:15→23:16)
--- NOTE | 2018-03-18 11:18 | PN ---
Subjective Date of Service: 03/18/18 Interval History: Noted to have Trop trending up for 0.06 on admission to 1.14 now at 1700 Repeat EKG completed and reveals possible Q waves in V2. On tele patient is SR with occasional tachycardia and occasional PVCs. Patient has shortness of breath which she attributes to her COPD. Reports sob has improved since admission. Denies cp, back pain, neck pain, palpitations, dizziness, n/v/d, or sweating. Dr Shultz consult and recommends repeat trop in the morning and echo in the morning. No stress test as patient could not tolerate due to sob. Suspected trops due to demand of breath. It should be noted she saw Dr Crump ( cardiology) in the spring and the visit was unremarkable as she was told to return in 3 yrs. As mentioned above patient denies cp, back pain, neck pain, palpitations, dizziness, n/v/d, or sweating. Reports shortness of breath continues, but has improved since admission. Objective Active Medications: Albuterol (Ventolin 2.5 Mg/3 Ml Neb.Lisandra*) 2.5 mg INH [id number] AWAKE [facility] Albuterol/Ipratropium (Duoneb (Albuterol 2.5 Mg/Ipratropium 0.5 Mg)) 1 neb INH QID PRN PRN Reason: SHORTNESS OF BREATH Atorvastatin Calcium (Lipitor*) 10 mg PO DAILY [facility] Last Admin: 03/18/18 08:48 Dose: Not Given Azithromycin (Zithromax Tab*) 500 mg PO DAILY [facility] Docusate Sodium (Colace Cap*) 100 mg PO DAILY [facility] Last Admin: 03/18/18 08:47 Dose: 100 mg Enoxaparin Sodium (Lovenox(*)) 40 mg SUBCUT Q24H [facility] Furosemide (Lasix Tab*) 20 mg PO DAILY [facility] Last Admin: 03/18/18 08:48 Dose: 20 mg Lorazepam (Ativan Tab(*)) 0.5 mg PO Q6H PRN PRN Reason: ANXIETY Losartan Potassium (Cozaar Tab*) 50 mg PO DAILY [facility] Last Admin: 03/18/18 08:45 Dose: 50 mg Methylprednisolone Sodium Succinate (Solu-Medrol 40 Mg) 40 mg IV Q12H [facility] Mometasone Furoate/Formoterol Fumar (Dulera 200/5 Mdi*) 2 puff INH BID [facility]; Protocol Last Admin: 03/18/18 07:46 Dose: 2 puff Multivitamins/Minerals (Theragran/Minerals Tab*) 1 tab PO DAILY [facility] Last Admin: 03/18/18 08:51 Dose: Not Given Pregabalin (Lyrica Cap(*)) 25 mg PO QAM [facility] Last Admin: 03/18/18 08:47 Dose: 25 mg Pregabalin (Lyrica Cap(*)) 50 mg PO BEDTIME [facility] Senna (Senokot Tab*) 1 tab PO DAILY PRN PRN Reason: CONSTIPATION Vital Signs - 8 hr 03/18/18 03/18/18 03/18/18 11:31 11:43 12:52 Temperature 98.6 F Pulse Rate 94 100 Respiratory 12 18 14 Rate Blood Pressure 120/62 (mmHg) O2 Sat by Pulse 93 94 Oximetry 03/18/18 15:24 Temperature 98.6 F Pulse Rate 99 Respiratory 20 Rate Blood Pressure 124/82 (mmHg) O2 Sat by Pulse 95 Oximetry Oxygen Devices in Use Now: Nasal Cannula Appearance: Comfortable, NAD Eyes: No Scleral Icterus Ears/Nose/Mouth/Throat: Clear Oropharnyx, Mucous Membranes Moist Neck: NL Appearance and Movements; NL JVP Respiratory: Symmetrical Chest Expansion and Respiratory Effort - Sporadic wheezing heard. Mild decrease in aeration Cardiovascular: NL Sounds; No Murmurs; No JVD, RRR, No Edema Abdominal: NL Sounds; No Tenderness; No Distention Lymphatic: No Cervical Adenopathy Extremities: No Edema Skin: No Rash or Ulcers Neurological: Alert and Oriented x 3 Nutrition: Taking PO's Result Diagrams: 03/18/18 02:44 03/18/18 02:44 Additional Lab and Data: Laboratory Results - last 24 hr 03/18/18 03/18/18 03/18/18 02:44 02:44 02:44 WBC 8.4 RBC 4.55 Hgb 14.0 Hct 42 MCV 92 MCH 31 MCHC 33 RDW 13 Plt Count 167 MPV 8.6 Neut % (Auto) 75.4 Lymph % (Auto) 10.3 [place] % (Auto) 11.0 Eos % (Auto) 2.8 Baso % (Auto) 0.5 Absolute Neuts (auto) 6.3 Absolute Lymphs (auto) 0.9 L Absolute Monos (auto) 0.9 H Absolute Eos (auto) 0.2 Absolute Basos (auto) 0 Absolute Nucleated RBC 0 Nucleated RBC % 0 INR (Anticoag Therapy) 0.92 APTT 38.9 H D-Dimer, Quantitative Sodium 135 Potassium 4.3 Chloride 99 L Carbon Dioxide 28 Anion Gap 8 BUN 25 H Creatinine 1.06 H Est GFR ( Amer) 60.7 Est GFR (Non-Af Amer) 50.1 BUN/Creatinine Ratio 23.6 H Glucose 131 H Lactic Acid Calcium 9.6 Total Bilirubin 0.60 AST 21 ALT 14 Alkaline Phosphatase 54 Troponin I 0.06 H* C-Reactive Protein 25.33 H B-Natriuretic Peptide Total Protein 6.6 Albumin 3.9 Globulin 2.7 Albumin/Globulin Ratio 1.4 03/18/18 03/18/18 03/18/18 02:44 02:44 06:51 WBC RBC Hgb Hct MCV MCH MCHC RDW Plt Count MPV Neut % (Auto) Lymph % (Auto) [place] % (Auto) Eos % (Auto) Baso % (Auto) Absolute Neuts (auto) Absolute Lymphs (auto) Absolute Monos (auto) Absolute Eos (auto) Absolute Basos (auto) Absolute Nucleated RBC Nucleated RBC % INR (Anticoag Therapy) APTT D-Dimer, Quantitative Sodium Potassium Chloride Carbon Dioxide Anion Gap BUN Creatinine Est GFR ( Amer) Est GFR (Non-Af Amer) BUN/Creatinine Ratio Glucose Lactic Acid 1.1 Calcium Total Bilirubin AST ALT Alkaline Phosphatase Troponin I 0.58 H* C-Reactive Protein B-Natriuretic Peptide 114 H Total Protein Albumin Globulin Albumin/Globulin Ratio 03/18/18 03/18/18 03/18/18 09:57 09:57 13:22 WBC RBC Hgb Hct MCV MCH MCHC RDW Plt Count MPV Neut % (Auto) Lymph % (Auto) [place] % (Auto) Eos % (Auto) Baso % (Auto) Absolute Neuts (auto) Absolute Lymphs (auto) Absolute Monos (auto) Absolute Eos (auto) Absolute Basos (auto) Absolute Nucleated RBC Nucleated RBC % INR (Anticoag Therapy) APTT D-Dimer, Quantitative 226 Sodium Potassium Chloride Carbon Dioxide Anion Gap BUN Creatinine Est GFR ( Amer) Est GFR (Non-Af Amer) BUN/Creatinine Ratio Glucose Lactic Acid Calcium Total Bilirubin AST ALT Alkaline Phosphatase Troponin I 0.90 H* 1.03 H* C-Reactive Protein B-Natriuretic Peptide Total Protein Albumin Globulin Albumin/Globulin Ratio 03/18/18 16:54 WBC RBC Hgb Hct MCV MCH MCHC RDW Plt Count MPV Neut % (Auto) Lymph % (Auto) [place] % (Auto) Eos % (Auto) Baso % (Auto) Absolute Neuts (auto) Absolute Lymphs (auto) Absolute Monos (auto) Absolute Eos (auto) Absolute Basos (auto) Absolute Nucleated RBC Nucleated RBC % INR (Anticoag Therapy) APTT D-Dimer, Quantitative Sodium Potassium Chloride Carbon Dioxide Anion Gap BUN Creatinine Est GFR ( Amer) Est GFR (Non-Af Amer) BUN/Creatinine Ratio Glucose Lactic Acid Calcium Total Bilirubin AST ALT Alkaline Phosphatase Troponin I 1.14 H* C-Reactive Protein B-Natriuretic Peptide Total Protein Albumin Globulin Albumin/Globulin Ratio Assess/Plan/Problems-Billing Assessment: 78 yr old female with pmh of severe copd and chronic hypoxic resp failure who is on 3L supplemental O2 at home. She also has hx of htn, AAA, HLD, hyponatermia , who presented to the ED due to sob and found to have COPD exacerbation. Her stay has been complicated by slowly up trending trops. - Patient Problems (1) Acute and chronic respiratory failure with hypoxia Comment: - Continues to have decreased aertion and sporadic wheezing. - Continue IV steriods and nebulizers. - Will receive Azithromax tomorrow - At baseline O2 supplementation - Reports sob is improving. (2) Elevated troponin Comment: - Slow increase in trops noted from 0.06 at admission to 1.14 - DDmier 226. VQ scan ordered for tomorrow due to patient's iodine allergy and elevated creatinine. - Asymptomatic except sob which she attributes to COPD - SR on tele with occasional PVCs - No acute changes in EKG - Cardiology consulted and we appreciate their input. Recommendations as follows : repeat trop in am and obtain echo in am. If no concerning findings or changes , patient to follow with Dr Crump as outpatient to discuss stress test. Stress test not indicated currently as patient would not be able to tolerate due to breathing. (3) COPD exacerbation Comment: - As above (4) Hyperlipidemia Comment: - Continue atorvastatin. (5) HTN (hypertension) Comment: - Cont irbesartan and lasix at home dose (6) Hyperlipidemia Comment: - Cont Simvastatin (7) Peripheral neuropathy Comment: - Cont Lyrica (8) Full code status Comment: - Full Code (9) DVT prophylaxis Comment: - Lovenox. Status and Disposition: D/C home when medically stable Attending: Elinor Muñoz
[2018-03-18] MEDS: Enoxaparin(*) 40 MG/0.4 ML SYR SUBCUT SCH (17:36)
[2018-03-18] MEDS: Pregabalin CAP(*) 50 MG PO SCH (20:23)
--- NOTE | 2018-03-19 00:31 | CONS ---
CC: Dr. Angie Zimmer * CARDIOLOGY CONSULTATION: DATE OF CONSULT: 03/18/18 INDICATION FOR CONSULTATION: Abnormal troponin levels, shortness of breath. HISTORY OF PRESENT ILLNESS: The patient is a 78-year-old female with a history of severe COPD, who is admitted to the hospital for a severe COPD exacerbation. The patient states that she was actually doing very well this past weekend; however, last night she got onto bed and woke up at 3 o'clock in the morning with severe shortness of breath. It was very sudden onset. She denied any triggers for her COPD exacerbation. She has not been exposed to anybody. She denied any fevers or chills. She denied any increasing cough. She denies any orthopnea. She denies any lightheadedness, dizziness or syncope. The patient was brought to the emergency room by ambulance. She was given nebulizers and steroids and is admitted to the hospital. Her initial troponin level was unremarkable. Her peak troponin level was 1.03. In speaking with the patient, I cannot elicit any shortness of breath or anginal type symptoms. PAST MEDICAL HISTORY: Significant for COPD, on chronic oxygen; hypertension; abdominal aortic aneurysm measuring 3.5 cm; hyperlipidemia; osteoporosis; colon cancer, status post resection and chemotherapy. OUTPATIENT MEDICATIONS: 1. Albuterol inhaler. 2. Ibuprofen. 3. Claritin 10 mg. 4. Calcium tablets. 5. Symbicort inhaler. 6. Vitamin C 1000 mg a day. 7. DuoNeb inhaler. 8. Lorazepam 0.5 mg as needed. 9. Irbesartan 150 mg a day. 10. Lasix 20 mg a day. 11. Colace 100 mg a day. 12. Multivitamin a day. 13. Lyrica 25 mg in the morning, 50 mg at night. 14. Multivitamin a day. ALLERGIES: PENICILLIN and CODEINE. She also has an IV DYE allergy. FAMILY HISTORY: Father of lung cancer, mother of abdominal aortic aneurysm. SOCIAL HISTORY: She is a former smoker. She quit in 2003. She denies any alcohol use. 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 She has 2 children. PHYSICAL EXAM: Height is 5 feet and 3 inches, weight 217 pounds, temperature 98 , heart rate is 99, blood pressure 124/82, respiratory rate is 20, oxygen saturation 95% on 3 L. Sclerae anicteric. Oropharynx is pink without erythema. Carotids are 2+ without bruits. JVD is normal. Thyroid is normal. Cardiac Exam: S1, S2 with a 1/6 systolic ejection murmur. No diastolic murmur. PMI is normal. Lungs have decreased breath sounds. There is mild rhonchi at the bases. There is mild dullness to percussion. Abdomen is soft, nontender, nondistended with normoactive bowel sounds. Extremities: Show minimal edema. She has 2+ pulses throughout. The patient is awake, alert, and oriented. She moves all 4 extremities. DIAGNOSTIC STUDIES/LAB DATA: CBC within normal limits. Chemistries within normal limits. AST and ALT are normal. BNP 114. Again, peak troponin level 1.03. IMPRESSION: This is a 78-year-old female with a history of severe chronic obstructive pulmonary disease, who is admitted to the hospital with a chronic obstructive pulmonary disease exacerbation. She had a sudden onset of shortness of breath in the middle of night. The questions is whether this was a chronic obstructive pulmonary disease exacerbation that came on suddenly or severe diastolic dysfunction from a small myocardial infarction. Based on her symptoms, I would tend to think this was a chronic obstructive pulmonary disease exacerbation. PLAN/RECOMMENDATIONS: At this point, my recommendation is to repeat her echocardiogram. She did have an echocardiogram in June of this year, which showed normal LV function, mild aortic stenosis, and moderate mitral regurgitation. The patient may benefit from a stress test; however, given her recent COPD exacerbation, I am not convinced that doing a chemical nuclear stress on this patient is advisable. The patient will be discharged from the hospital. She can follow up with Dr. Crump, her primary coater, for evaluation of her elevated troponins and whether he thinks a stress test is warranted. [id number]/[facility] #: [id number] [facility]
[2018-03-19] MEDS: Albuterol 2.5 MG/3 ML NEB.SOL* (0.083%) INH SCH ×4 (01:35→19:15)
[2018-03-19 06:37] LABS: ABS Basophils 0 10^3/ul (0-0.2); ABS Eosinophils 0 10^3/ul (0-0.6); ABS Lymphocytes 0.3 10^3/ul (1.0-4.8); ABS Monocytes 0.4 10^3/ul (0-0.8); ABS Neutrophils 5.6 10^3/ul (1.5-7.7); ABS Nucleated RBC 0 10^3/ul; Eosinophil % 0 %; Hematocrit 40 % (35-47); Hemoglobin 13.3 g/dl (12.0-16.0); Lymphocyte % 5.1 %; Mean Corpuscular HGB Conc 33 g/dl (31-36); Mean Corpuscular Hemoglobin 30 pg (27-31); Mean Corpuscular Volume 91 fL (80-97); Nucleated Red Blood Cells % 0.1; Platelet Count 190 10^3/ul (150-450); Red Blood Count 4.37 10^6/ul (4.00-5.40); Red Cell Distribution Width 13 % (10.5-15); White Blood Count 6.3 10^3/ul (3.5-10.8)
[2018-03-19 06:58] LABS: BUN/Creatinine Ratio 25.8 (8-20); Calcium 8.6 mg/dL (8.6-10.3); EGFR Non-African American 58.3 (>60); Magnesium 2.2 mg/dL (1.9-2.7); Potassium 4.3 mmol/L (3.5-5.0)
[2018-03-19] MEDS: Mometasone/Formoter 200/5 MDI INH SCH ×2 (08:01→19:15)
[2018-03-19] MEDS: Multivitamins/Minerals TAB PO SCH (09:19)
[2018-03-19] MEDS: Azithromycin TAB* 250 MG PO SCH (09:19)
[2018-03-19] MEDS: Docusate CAP* 100 MG PO SCH (09:20)
[2018-03-19] MEDS: Losartan TAB* 25 MG PO SCH (09:20)
[2018-03-19] MEDS: Furosemide TAB* 20 MG PO SCH (09:24)
[2018-03-19] MEDS: Pregabalin CAP(*) 25 MG PO SCH (09:24)
[2018-03-19] MEDS: Atorvastatin* 10 MG TAB PO SCH (09:25)
--- NOTE | 2018-03-19 10:51 | PN ---
Subjective Date of Service: 03/19/18 Interval History: SR with occasional PVCs on tele. Resting in bed on assessment. Supplement O2 in place at 4 L. Reports she is usually at 3L but will occasionally increase to 4L after ambulation even when at home and well. Discussed VQ scan and apologized from patient feeling uncomfortable with exam. Patient declined VQ scan and reports she prefers CT with pretreatment with Benadryl and Ativan if imaging is necessary. Reports some shortness of breath especially with exertion. Received Neb which improved breathing. Reports breathing is improving since admission. Denies cp, palpitations, n/v/d, headache, dizziness. Objective Active Medications: Albuterol (Ventolin 2.5 Mg/3 Ml Neb.Lisandra*) 2.5 mg INH [id number] AWAKE [facility] Last Admin: 03/19/18 08:00 Dose: 2.5 mg Albuterol/Ipratropium (Duoneb (Albuterol 2.5 Mg/Ipratropium 0.5 Mg)) 1 neb INH QID PRN PRN Reason: SHORTNESS OF BREATH Atorvastatin Calcium (Lipitor*) 10 mg PO DAILY [facility] Last Admin: 03/19/18 09:25 Dose: 10 mg Azithromycin (Zithromax Tab*) 500 mg PO DAILY [facility] Last Admin: 03/19/18 09:19 Dose: 500 mg Docusate Sodium (Colace Cap*) 100 mg PO DAILY [facility] Last Admin: 03/19/18 09:20 Dose: 100 mg Enoxaparin Sodium (Lovenox(*)) 40 mg SUBCUT Q24H [facility] Last Admin: 03/18/18 17:36 Dose: 40 mg Furosemide (Lasix Tab*) 20 mg PO DAILY [facility] Last Admin: 03/19/18 09:24 Dose: 20 mg Lorazepam (Ativan Tab(*)) 0.5 mg PO Q6H PRN PRN Reason: ANXIETY Losartan Potassium (Cozaar Tab*) 50 mg PO DAILY [facility] Last Admin: 03/19/18 09:20 Dose: 50 mg Methylprednisolone Sodium Succinate (Solu-Medrol 40 Mg) 40 mg IV Q12H [facility] Last Admin: 03/18/18 23:16 Dose: 40 mg Mometasone Furoate/Formoterol Fumar (Dulera 200/5 Mdi*) 2 puff INH BID [facility]; Protocol Last Admin: 03/19/18 08:01 Dose: 2 puff Multivitamins/Minerals (Theragran/Minerals Tab*) 1 tab PO DAILY [facility] Last Admin: 03/19/18 09:19 Dose: 1 tab Pregabalin (Lyrica Cap(*)) 25 mg PO QAM [facility] Last Admin: 03/19/18 09:24 Dose: 25 mg Pregabalin (Lyrica Cap(*)) 50 mg PO BEDTIME [facility] Last Admin: 03/18/18 20:23 Dose: 50 mg Senna (Senokot Tab*) 1 tab PO DAILY PRN PRN Reason: CONSTIPATION Vital Signs - 8 hr 03/19/18 03/19/18 03/19/18 03:27 03:40 07:21 Temperature 97.4 F 97.1 F Pulse Rate 86 77 Respiratory 18 18 Rate Blood Pressure 175/79 137/50 140/80 (mmHg) O2 Sat by Pulse 95 97 Oximetry 03/19/18 03/19/18 03/19/18 08:00 08:02 09:24 Temperature Pulse Rate 86 Respiratory 18 18 18 Rate Blood Pressure (mmHg) O2 Sat by Pulse 92 Oximetry Oxygen Devices in Use Now: Nasal Cannula Appearance: Well appearing, NAD Eyes: No Scleral Icterus Ears/Nose/Mouth/Throat: Clear Oropharnyx, Mucous Membranes Moist Neck: NL Appearance and Movements; NL JVP Respiratory: Symmetrical Chest Expansion and Respiratory Effort, - - Mild decrease in aeration, but improved since yesterday. Also spordiac wheezing heard. Cardiovascular: NL Sounds; No Murmurs; No JVD, RRR, No Edema Abdominal: NL Sounds; No Tenderness; No Distention Lymphatic: No Cervical Adenopathy Extremities: No Edema Skin: No Rash or Ulcers Neurological: Alert and Oriented x 3 Result Diagrams: 03/19/18 05:52 03/19/18 05:52 Additional Lab and Data: Laboratory Results - last 24 hr 03/18/18 03/18/18 03/19/18 13:22 16:54 05:52 WBC 6.3 RBC 4.37 Hgb 13.3 Hct 40 MCV 91 MCH 30 MCHC 33 RDW 13 Plt Count 190 MPV 9.0 Neut % (Auto) 88.6 Lymph % (Auto) 5.1 [place] % (Auto) 6.2 Eos % (Auto) 0 Baso % (Auto) 0.1 Absolute Neuts (auto) 5.6 Absolute Lymphs (auto) 0.3 L Absolute Monos (auto) 0.4 Absolute Eos (auto) 0 Absolute Basos (auto) 0 Absolute Nucleated RBC 0 Nucleated RBC % 0.1 Sodium Potassium Chloride Carbon Dioxide Anion Gap BUN Creatinine Est GFR ( Amer) Est GFR (Non-Af Amer) BUN/Creatinine Ratio Glucose Calcium Magnesium Troponin I 1.03 H* 1.14 H* Triglycerides Cholesterol LDL Cholesterol HDL Cholesterol 03/19/18 05:52 WBC RBC Hgb Hct MCV MCH MCHC RDW Plt Count MPV Neut % (Auto) Lymph % (Auto) [place] % (Auto) Eos % (Auto) Baso % (Auto) Absolute Neuts (auto) Absolute Lymphs (auto) Absolute Monos (auto) Absolute Eos (auto) Absolute Basos (auto) Absolute Nucleated RBC Nucleated RBC % Sodium 135 Potassium 4.3 Chloride 101 Carbon Dioxide 28 Anion Gap 6 BUN 24 Creatinine 0.93 Est GFR ( Amer) 70.6 Est GFR (Non-Af Amer) 58.3 BUN/Creatinine Ratio 25.8 H Glucose 139 H Calcium 8.6 Magnesium 2.2 Troponin I 0.74 H* Triglycerides 80 Cholesterol 187 LDL Cholesterol 111 HDL Cholesterol 60.5 Microbiology and Other Data: Microbiology 03/18/18 02:44 Blood Venous Aerobic Blood Culture - Preliminary No Growth Day 1 03/18/18 02:44 Blood Venous Anaerobic Blood Culture - Preliminary No Growth Day 1 03/18/18 02:44 Blood Venous Aerobic Blood Culture - Preliminary No Growth Day 1 03/18/18 02:44 Blood Venous Anaerobic Blood Culture - Preliminary No Growth Day 1 Diagnostic Imaging: . Assess/Plan/Problems-Billing Assessment: 78 yr old female with pmh of severe copd and chronic hypoxic resp failure who is on 3L supplemental O2 at home. She also has hx of htn, AAA, HLD, hyponatermia , who presented to the ED due to sob and found to have COPD exacerbation. Her stay was complicated by slowly up trending trops which have now stablized - Patient Problems (1) Acute and chronic respiratory failure with hypoxia Comment: - Continues to have mild decreased aeration and sporadic wheezing. Aeration improved from yesterday - Continue IV steriods and nebulizers. - Will receive Azithromax today - At baseline O2 supplementation - Reports sob is improving slowly (2) Elevated troponin Comment: - Slow increase in trops noted from 0.06 at admission to 1.14. Now trending back down. - DDmier 226. VQ scan ordered but patient refused. Given patient's Wells Score is 1.5 and DDimer is negative (below 230), I have a low suspicsion for PE. Imaging will be cancelled. I suspect temporary elevation in trops was due to resp distress, but we will await echo results. - Asymptomatic except sob which she attributes to COPD - SR on tele with occasional PVCs - No acute changes in EKG - Cardiology consulted and we appreciate their input. - Repeat trop this morning reveals downward trend as it is now 0.74. - Patient had echo this morning and awaiting results. If no concerning findings or changes, patient to follow with Dr Crump as outpatient to discuss stress test. Stress test not indicated currently as patient would not be able to tolerate due to breathing. - Lipid profile ordered. LDL 111. Decision to increase statin will be defered to PCP and [employer] as oupatient since she is close to goal. - Reports she use to be on a baby ASA but stopped as she read it was not beneficial. She did not have any adverse effects and is willing to start taking it again. (3) COPD exacerbation Comment: - Improving slowly. - Cont abx, nebs, inhaler. - Established with [facility] and will need close follow up - Path program consulted and we appreciate their consult. (4) Hyperlipidemia Comment: - Continue atorvastatin. (5) HTN (hypertension) Comment: - Cont irbesartan and lasix at home dose (6) Peripheral neuropathy Comment: - Cont Lyrica (7) Full code status Comment: - Full Code (8) DVT prophylaxis Comment: - Lovenox. Status and Disposition: D/C home when medically stable. Discharge on PO Azithromycin and prednisone slow taper Attending: Wanda Montaño
[2018-03-19 11:09] LABS: HDL Cholesterol 60.5 mg/dL
[2018-03-19] MEDS: methylPREDNISolone SOD 40 MG* 1 ML VIAL IV SCH ×2 (11:09→22:16)
--- NOTE | 2018-03-19 12:23 | CONSULT ---
Palliative / Hospice Consult Ordering Provider: Ayla Morton - Subjective Code Status: Full Code Advance Directives Location: In Chart MOLST Part A Completed: Yes - CPR Date: 06/19/17 MOLST Part E Completed:: Yes - History or Present Illness History or Present Illness: This 78 year old woman with progressing COPD has been O2 dependent since 2013, and has had increasing respiratory failure, with 5 hospital admissions in the last year. She has additional diagnoses of HTN, HLD, AAA, hyponatremia d/t SIADH , osteoporosis, hx colon cancer and neuropathy. She is again here, and palliative consultation was requested. The patient still has a good PPS of about 80% despite her dyspnea on exertion, and she continues to participate regularly in PT. She attributes some of her respiratory compromise to having had general anesthesia during her THR in 2013. Lab Values: Abnormal Lab Results 03/18/18 03/18/18 03/19/18 13:22 16:54 05:52 WBC 6.3 RBC 4.37 Hgb 13.3 Hct 40 MCV 91 MCH 30 MCHC 33 RDW 13 Plt Count 190 MPV 9.0 Neut % (Auto) 88.6 Lymph % (Auto) 5.1 [place] % (Auto) 6.2 Eos % (Auto) 0 Baso % (Auto) 0.1 Absolute Neuts (auto) 5.6 Absolute Lymphs (auto) 0.3 L Absolute Monos (auto) 0.4 Absolute Eos (auto) 0 Absolute Basos (auto) 0 Absolute Nucleated RBC 0 Nucleated RBC % 0.1 Sodium Potassium Chloride Carbon Dioxide Anion Gap BUN Creatinine Est GFR ( Amer) Est GFR (Non-Af Amer) BUN/Creatinine Ratio Glucose Calcium Magnesium Troponin I 1.03 H* 1.14 H* Triglycerides Cholesterol LDL Cholesterol HDL Cholesterol 03/19/18 05:52 WBC RBC Hgb Hct MCV MCH MCHC RDW Plt Count MPV Neut % (Auto) Lymph % (Auto) Butler % (Auto) Eos % (Auto) Baso % (Auto) Absolute Neuts (auto) Absolute Lymphs (auto) Absolute Monos (auto) Absolute Eos (auto) Absolute Basos (auto) Absolute Nucleated RBC Nucleated RBC % Sodium 135 Potassium 4.3 Chloride 101 Carbon Dioxide 28 Anion Gap 6 BUN 24 Creatinine 0.93 Est GFR ( Amer) 70.6 Est GFR (Non-Af Amer) 58.3 BUN/Creatinine Ratio 25.8 H Glucose 139 H Calcium 8.6 Magnesium 2.2 Troponin I 0.74 H* Triglycerides 80 Cholesterol 187 LDL Cholesterol 111 HDL Cholesterol 60.5 Laboratory Last Values WBC 6.3 10^3/ul (3.5-10.8) 03/19/18 05:52 RBC 4.37 10^6/ul (4.00-5.40) 03/19/18 05:52 Hgb 13.3 g/dl (12.0-16.0) 03/19/18 05:52 Hct 40 % (35-47) 03/19/18 05:52 MCV 91 fL (80-97) 03/19/18 05:52 MCH 30 pg (27-31) 03/19/18 05:52 MCHC 33 g/dl (31-36) 03/19/18 05:52 RDW 13 % (10.5-15) 03/19/18 05:52 Plt Count 190 10^3/ul (150-450) 03/19/18 05:52 MPV 9.0 fL (7.4-10.4) 03/19/18 05:52 Neut % (Auto) 88.6 % 03/19/18 05:52 Lymph % (Auto) 5.1 % 03/19/18 05:52 Butler % (Auto) 6.2 % 03/19/18 05:52 Eos % (Auto) 0 % 03/19/18 05:52 Baso % (Auto) 0.1 % 03/19/18 05:52 Absolute Neuts (auto) 5.6 10^3/ul (1.5-7.7) 03/19/18 05:52 Absolute Lymphs (auto) 0.3 10^3/ul (1.0-4.8) L 03/19/18 05:52 Absolute Monos (auto) 0.4 10^3/ul (0-0.8) 03/19/18 05:52 Absolute Eos (auto) 0 10^3/ul (0-0.6) 03/19/18 05:52 Absolute Basos (auto) 0 10^3/ul (0-0.2) 03/19/18 05:52 Absolute Nucleated RBC 0 10^3/ul 03/19/18 05:52 Nucleated RBC % 0.1 03/19/18 05:52 INR (Anticoag Therapy) 0.92 (0.77-1.02) 03/18/18 02:44 APTT 38.9 seconds (26.0-36.3) H 03/18/18 02:44 D-Dimer, Quantitative 226 ng/mL (Less Than 230) 03/18/18 09:57 Sodium 135 mmol/L (135-145) 03/19/18 05:52 Potassium 4.3 mmol/L (3.5-5.0) 03/19/18 05:52 Chloride 101 mmol/L (101-111) 03/19/18 05:52 Carbon Dioxide 28 mmol/L (22-32) 03/19/18 05:52 Anion Gap 6 mmol/L (2-11) 03/19/18 05:52 BUN 24 mg/dL (6-24) 03/19/18 05:52 Creatinine 0.93 mg/dL (0.51-0.95) 03/19/18 05:52 Est GFR ( Amer) 70.6 (>60) 03/19/18 05:52 Est GFR (Non-Af Amer) 58.3 (>60) 03/19/18 05:52 BUN/Creatinine Ratio 25.8 (8-20) H 03/19/18 05:52 Glucose 139 mg/dL (70-100) H 03/19/18 05:52 Lactic Acid 1.1 mmol/L (0.5-2.0) 03/18/18 02:44 Calcium 8.6 mg/dL (8.6-10.3) 03/19/18 05:52 Magnesium 2.2 mg/dL (1.9-2.7) 03/19/18 05:52 Total Bilirubin 0.60 mg/dL (0.2-1.0) 03/18/18 02:44 AST 21 U/L (13-39) 03/18/18 02:44 ALT 14 U/L (7-52) 03/18/18 02:44 Alkaline Phosphatase 54 U/L (34-104) 03/18/18 02:44 Troponin I 0.74 ng/mL (<0.04) H* 03/19/18 05:52 C-Reactive Protein 25.33 mg/L (<8.01) H 03/18/18 02:44 B-Natriuretic Peptide 114 pg/mL (<=100) H 03/18/18 02:44 Total Protein 6.6 g/dL (6.4-8.9) 03/18/18 02:44 Albumin 3.9 g/dL (3.2-5.2) 03/18/18 02:44 Globulin 2.7 g/dL (2-4) 03/18/18 02:44 Albumin/Globulin Ratio 1.4 (1-3) 03/18/18 02:44 Triglycerides 80 mg/dL 03/19/18 05:52 Cholesterol 187 mg/dL 03/19/18 05:52 LDL Cholesterol 111 mg/dL 03/19/18 05:52 HDL Cholesterol 60.5 mg/dL 03/19/18 05:52 - Objective Active Medications: Albuterol (Ventolin 2.5 Mg/3 Ml Neb.Lisandra*) 2.5 mg INH [id number] AWAKE [facility] Last Admin: 03/19/18 08:00 Dose: 2.5 mg Albuterol/Ipratropium (Duoneb (Albuterol 2.5 Mg/Ipratropium 0.5 Mg)) 1 neb INH QID PRN PRN Reason: SHORTNESS OF BREATH Atorvastatin Calcium (Lipitor*) 10 mg PO DAILY [facility] Last Admin: 03/19/18 09:25 Dose: 10 mg Azithromycin (Zithromax Tab*) 500 mg PO DAILY [facility] Last Admin: 03/19/18 09:19 Dose: 500 mg Docusate Sodium (Colace Cap*) 100 mg PO DAILY [facility] Last Admin: 03/19/18 09:20 Dose: 100 mg Enoxaparin Sodium (Lovenox(*)) 40 mg SUBCUT Q24H [facility] Last Admin: 03/18/18 17:36 Dose: 40 mg Furosemide (Lasix Tab*) 20 mg PO DAILY [facility] Last Admin: 03/19/18 09:24 Dose: 20 mg Lorazepam (Ativan Tab(*)) 0.5 mg PO Q6H PRN PRN Reason: ANXIETY Losartan Potassium (Cozaar Tab*) 50 mg PO DAILY [facility] Last Admin: 03/19/18 09:20 Dose: 50 mg Methylprednisolone Sodium Succinate (Solu-Medrol 40 Mg) 40 mg IV Q12H [facility] Last Admin: 03/19/18 11:09 Dose: 40 mg Mometasone Furoate/Formoterol Fumar (Dulera 200/5 Mdi*) 2 puff INH BID [facility]; Protocol Last Admin: 03/19/18 08:01 Dose: 2 puff Multivitamins/Minerals (Theragran/Minerals Tab*) 1 tab PO DAILY [facility] Last Admin: 03/19/18 09:19 Dose: 1 tab Pregabalin (Lyrica Cap(*)) 25 mg PO QAM [facility] Last Admin: 03/19/18 09:24 Dose: 25 mg Pregabalin (Lyrica Cap(*)) 50 mg PO BEDTIME [facility] Last Admin: 03/18/18 20:23 Dose: 50 mg Senna (Senokot Tab*) 1 tab PO DAILY PRN PRN Reason: CONSTIPATION Vital Signs: Vital Signs: Temp Pulse Resp BP Pulse Ox 97.1 F 86 18 140/80 92 03/19/18 07:21 03/19/18 08:02 03/19/18 09:24 03/19/18 07:21 03/19/18 08:02 Patient Weight: Weight 217 lb 12.8 oz Intake and Output: Intake & Output 03/17/18 03/18/18 03/19/18 03/20/18 06:59 06:59 06:59 06:59 Intake Total 200 900 350 Balance 200 900 350 Weight 217 lb 12.8 oz Intake: IV Fluids 200 Oral 0 900 350 Other: Estimated Void Small # Bowel Movements 0 0 # Voids 0 2 ADLs: Meal Record Start: 03/18/18 05: 16 Freq: DAILY@0900,1400,1800 Status: Active Protocol: Created 03/18/18 05:16 System (Rec: 03/18/18 05:16 System [id number]) Document 03/18/18 09:00 [id number] (Rec: 03/18/18 13:46 [id number] MED-C11) Document 03/18/18 13:47 [id number] (Rec: 03/18/18 13:48 [id number] MED-C11) Document 03/19/18 09:00 [id number] (Rec: 03/19/18 10:25 [id number] MED-C11) Intake and Output Start: 03/18/18 02: 10 Freq: Status: Active Protocol: Created 03/18/18 02:10 System (Rec: 03/18/18 02:10 System [id number]) Intake and Output Start: 03/18/18 05: 16 Freq: DAILY@0600,1400,2200 Status: Active Protocol: Created 03/18/18 05:16 System (Rec: 03/18/18 05:16 System MED-C16) Document 03/18/18 05:52 [id number] (Rec: 03/18/18 05:53 [id number] MED-C05) Document 03/18/18 14:00 [id number] (Rec: 03/18/18 14:57 [id number] MED-C11) Document 03/18/18 22:00 [id number] (Rec: 03/18/18 23:23 [id number] MED-C11) Document 03/19/18 03:55 [id number] (Rec: 03/19/18 03:56 [id number] MED-C42) Document 03/19/18 06:00 [id number] (Rec: 03/19/18 06:04 [id number] MED-C42) Eyes: No Scleral Icterus Ears/Nose/Mouth/Throat: Clear Oropharnyx, Mucous Membranes Moist Neck: NL Appearance and Movements; NL JVP Cardiovascular: NL Sounds; No Murmurs; No JVD, RRR, No Edema Abdominal: NL Sounds; No Tenderness; No Distention Extremities: No Edema Neurological: Alert and Oriented x 3 - Assessment Assessment: We spoke to the patient about the course of COPD with progressive deterioration in lung function, and discussed the value of advance directives. She offered that she is not interested in mechanical ventilation and would prefer to remain at home. However, she still has a MOLST form specifying full code status and hospitalization, although she would prefer to avoid further hospitalizations. We described the options available to her that would allow her to remain at home , including palliative and hospice services. The patient wants to discuss options for DNR/DNI/DNH status with her family before altering her MOLST, but would be appropriate for our outpatient PATH program. This would give her access to 24 hour nursing on-call service through Hospice nurses so that the patient could have comfort medications at home for respiratory crises and try to avoid further hospitalizations and ER visits. We will check back with her to find out about the outcome of her discussions with her family about code status , and I have contacted Marilyn Amayan about her PATH referral. Thank you for requesting the consultation. - Plan Consult Plan (MU): Palliative - Time On Unit Date of Evaluation: 03/19/18 Hospice Consult Time in: 11:45 Hospice Consult Time Out: 12:30 Hospice Consult Time Total: 45 > 50% of Time Spend In Counseling or Coordinating Care: Yes
[2018-03-19] MEDS: Enoxaparin(*) 40 MG/0.4 ML SYR SUBCUT SCH (16:22)
--- NOTE | 2018-03-19 17:52 | ECHO ---
Patient: FRANCISCA ARGUELLES [facility] Rec#: [id number] : 1940 Date: 03/19/2018 Age: 78y Height: 160 cm / 63.0 in Weight: 99 kg / 218.2 lbs Sex: F BSA: 2.01 Room#: [facility] Admit Date#: 03/18/2018 Type: Inpatient Referring: Elinor Muñoz MD Reading: Oskar Shultz MD Employment Program Representative: Daxa OrellanaRDCS,RDMS Transthoracic Echocardiogram Indication: SOB, Elevated TROP BP: 137/50 HR: 91 Rhythm: NSR Findings History: Severe COPD, HTN, AAA, HLD, AOV stenosis Technical Comments: The study quality is fair. Left Ventricle: The left ventricular chamber size is mildly dilated. Mild concentric left ventricular hypertrophy is observed. There is global hypokinesis of the left ventricle with minor regional variation. There is severely decreased left ventricular systolic function. The estimated ejection fraction is 25-30%. The assessment of diastolic function is non-diagnostic. Left Atrium: The left atrium is mild to moderately dilated. Right Ventricle: The right ventricular chamber size and systolic function are within normal limits. Right Atrium: The right atrium is mildly dilated. Aortic Valve: The aortic valve leaflets are moderately thickened. Systolic excursion of the aortic valve cusps is reduced. There is no evidence of aortic regurgitation. There is mild to moderate aortic stenosis. The mean gradient of the aortic valve is 16 mmHg. The aortic valve area, by peak velocities, is calculated at 1.1 cm2. Mitral Valve: There is mitral annular calcification. The mitral valve leaflets are mildly thickened. There is mild mitral regurgitation. There is no evidence of mitral stenosis. Tricuspid Valve: The tricuspid valve leaflets are normal. There is trace tricuspid regurgitation. Unable to estimate the right ventricular systolic pressure. Pulmonic Valve: The pulmonic valve structure is not well visualized. Pericardium: There is no significant pericardial effusion. Aorta: The ascending aorta is not well visualized. The aortic arch is not well visualized. The aortic root is normal in size. Pulmonary Artery: The main pulmonary artery is not well visualized. Venous: The inferior vena cava is not visualized. Conclusions There is global hypokinesis of the left ventricle with minor regional variation. There is severely decreased left ventricular systolic function. The estimated ejection fraction is 25-30%. Systolic excursion of the aortic valve cusps is reduced. There is no evidence of aortic regurgitation. There is mild to moderate aortic stenosis. The mean gradient of the aortic valve is 16 mmHg. There is mild mitral regurgitation. There is trace tricuspid regurgitation. Unable to estimate the right ventricular systolic pressure. There is no significant pericardial effusion. The ascending aorta is not well visualized. Compared to study of 06/2017, the LV function is significantly lower. the degree of may be underestimated Measurements Name Value Normal Range RVIDd (AP) 2D 3.4 cm (0.9 - 2.6) RAd ISD 4CH 5.3 cm (3.4 - 4.9) RA (A4C)W 4.7 cm (2.9 - 4.6) IVSd (2D) 1.2 cm (0.6 - 1) LVPWd (2D) 1.3 cm (0.6 - 1) LVIDd (2D) 5.6 cm (3.6 - 5.4) LVIDs (2D) 5 cm - LV FS (2D) 10 % (25 - 45) Aortic Annulus 2.4 cm (1.4 - 2.6) Ao root diameter (2D) 2.6 cm (2.1 - 3.5) LA dimension (AP) 2D 5.4 cm (2.3 - 3.8) LAd ISD 4CH 6.5 cm (2.9 - 5.3) LA ISD 4CH W 4.7 cm (2.5 - 4.5) Name Value Normal Range LA ESV BP (A/L) index 41 ml/m2 - Name Value Normal Range MV E-wave Vmax 1 m/sec - MV deceleration time 124 msec - MV A-wave Vmax 0.7 m/sec - MV E:A ratio 1.4 ratio - Name Value Normal Range AV Vmax 2.6 m/sec - AV VTI 56 cm - AV peak gradient 28 mmHg - AV mean gradient 16 mmHg - LVOT diameter 2.2 cm - LVOT Vmax 0.7 m/sec - LVOT VTI 15 cm - LVOT peak gradient 2 mmHg - LVOT mean gradient 1 mmHg - DOI (VTI) 0.3 ratio - SHADIA (continuity Vmax) 1.1 cm2 - SHADIA (continuity VTI) 1 cm2 - Name Value Normal Range RAP 8 mmHg -
[2018-03-19] MEDS: Pregabalin CAP(*) 50 MG PO SCH (22:15)
[2018-03-20] MEDS: Albuterol 2.5 MG/3 ML NEB.SOL* (0.083%) INH SCH ×4 (01:25→20:15)
[2018-03-20] MEDS: Pregabalin CAP(*) 25 MG PO SCH (07:18)
[2018-03-20] MEDS: Furosemide TAB* 20 MG PO SCH (07:18)
[2018-03-20] MEDS: Docusate CAP* 100 MG PO SCH (07:19)
[2018-03-20] MEDS: Aspirin 81 mg CHEW TAB* 81 MG TAB.CHEW PO SCH (07:19)
[2018-03-20] MEDS: Multivitamins/Minerals TAB PO SCH (07:19)
[2018-03-20] MEDS: Azithromycin TAB* 250 MG PO SCH (07:19)
[2018-03-20] MEDS: Atorvastatin* 10 MG TAB PO SCH (07:19)
[2018-03-20] MEDS: Losartan TAB* 25 MG PO SCH (07:19)
[2018-03-20] MEDS: Mometasone/Formoter 200/5 MDI INH SCH ×2 (07:36→20:15)
[2018-03-20] MEDS: methylPREDNISolone SOD 40 MG* 1 ML VIAL IV SCH ×2 (10:58→22:48)
--- NOTE | 2018-03-20 12:57 | PN ---
Subjective Date of Service: 03/20/18 Objective Active Medications: Albuterol (Ventolin 2.5 Mg/3 Ml Neb.Lisandra*) 2.5 mg INH [id number] AWAKE [facility] Last Admin: 03/20/18 07:34 Dose: 2.5 mg Albuterol/Ipratropium (Duoneb (Albuterol 2.5 Mg/Ipratropium 0.5 Mg)) 1 neb INH QID PRN PRN Reason: SHORTNESS OF BREATH Aspirin (Aspirin 81 Mg Chew Tab*) 81 mg PO DAILY [facility] Last Admin: 03/20/18 07:19 Dose: 81 mg Atorvastatin Calcium (Lipitor*) 10 mg PO DAILY [facility] Last Admin: 03/20/18 07:19 Dose: 10 mg Azithromycin (Zithromax Tab*) 500 mg PO DAILY [facility] Last Admin: 03/20/18 07:19 Dose: 500 mg Docusate Sodium (Colace Cap*) 100 mg PO DAILY [facility] Last Admin: 03/20/18 07:19 Dose: 100 mg Enoxaparin Sodium (Lovenox(*)) 40 mg SUBCUT Q24H [facility] Last Admin: 03/19/18 16:22 Dose: 40 mg Furosemide (Lasix Tab*) 20 mg PO DAILY [facility] Last Admin: 03/20/18 07:18 Dose: 20 mg Lorazepam (Ativan Tab(*)) 0.5 mg PO Q6H PRN PRN Reason: ANXIETY Losartan Potassium (Cozaar Tab*) 50 mg PO DAILY [facility] Last Admin: 03/20/18 07:19 Dose: 50 mg Methylprednisolone Sodium Succinate (Solu-Medrol 40 Mg) 40 mg IV Q12H [facility] Last Admin: 03/20/18 10:58 Dose: 40 mg Mometasone Furoate/Formoterol Fumar (Dulera 200/5 Mdi*) 2 puff INH BID [facility]; Protocol Last Admin: 03/20/18 07:36 Dose: 2 puff Multivitamins/Minerals (Theragran/Minerals Tab*) 1 tab PO DAILY [facility] Last Admin: 03/20/18 07:19 Dose: 1 tab Pregabalin (Lyrica Cap(*)) 25 mg PO QAM [facility] Last Admin: 03/20/18 07:18 Dose: 25 mg Pregabalin (Lyrica Cap(*)) 50 mg PO BEDTIME [facility] Last Admin: 12/04/18 22:15 Dose: 50 mg Senna (Senokot Tab*) 1 tab PO DAILY PRN PRN Reason: CONSTIPATION Vital Signs - 8 hr 03/20/18 03/20/18 03/20/18 07:15 07:18 07:26 Temperature Pulse Rate 76 Respiratory 18 18 18 Rate Blood Pressure 148/68 (mmHg) O2 Sat by Pulse Oximetry 03/20/18 03/20/18 03/20/18 07:36 07:49 09:23 Temperature 97.6 F Pulse Rate 92 80 Respiratory 18 20 18 Rate Blood Pressure 122/60 (mmHg) O2 Sat by Pulse 90 97 Oximetry 03/20/18 11:15 Temperature 98.3 F Pulse Rate 96 Respiratory 18 Rate Blood Pressure 101/56 (mmHg) O2 Sat by Pulse 96 Oximetry Oxygen Devices in Use Now: Nasal Cannula Result Diagrams: 03/19/18 05:52 03/19/18 05:52 Additional Lab and Data: Laboratory Results - last 24 hr 03/18/18 03/18/18 03/19/18 13:22 16:54 05:52 WBC 6.3 RBC 4.37 Hgb 13.3 Hct 40 MCV 91 MCH 30 MCHC 33 RDW 13 Plt Count 190 MPV 9.0 Neut % (Auto) 88.6 Lymph % (Auto) 5.1 [place] % (Auto) 6.2 Eos % (Auto) 0 Baso % (Auto) 0.1 Absolute Neuts (auto) 5.6 Absolute Lymphs (auto) 0.3 L Absolute Monos (auto) 0.4 Absolute Eos (auto) 0 Absolute Basos (auto) 0 Absolute Nucleated RBC 0 Nucleated RBC % 0.1 Sodium Potassium Chloride Carbon Dioxide Anion Gap BUN Creatinine Est GFR ( Amer) Est GFR (Non-Af Amer) BUN/Creatinine Ratio Glucose Calcium Magnesium Troponin I 1.03 H* 1.14 H* Triglycerides Cholesterol LDL Cholesterol HDL Cholesterol 03/19/18 05:52 WBC RBC Hgb Hct MCV MCH MCHC RDW Plt Count MPV Neut % (Auto) Lymph % (Auto) [place] % (Auto) Eos % (Auto) Baso % (Auto) Absolute Neuts (auto) Absolute Lymphs (auto) Absolute Monos (auto) Absolute Eos (auto) Absolute Basos (auto) Absolute Nucleated RBC Nucleated RBC % Sodium 135 Potassium 4.3 Chloride 101 Carbon Dioxide 28 Anion Gap 6 BUN 24 Creatinine 0.93 Est GFR ( Amer) 70.6 Est GFR (Non-Af Amer) 58.3 BUN/Creatinine Ratio 25.8 H Glucose 139 H Calcium 8.6 Magnesium 2.2 Troponin I 0.74 H* Triglycerides 80 Cholesterol 187 LDL Cholesterol 111 HDL Cholesterol 60.5 Microbiology and Other Data: Microbiology 03/18/18 02:44 Blood Venous Aerobic Blood Culture - Preliminary No Growth Day 1 03/18/18 02:44 Blood Venous Anaerobic Blood Culture - Preliminary No Growth Day 1 03/18/18 02:44 Blood Venous Aerobic Blood Culture - Preliminary No Growth Day 1 03/18/18 02:44 Blood Venous Anaerobic Blood Culture - Preliminary No Growth Day 1 Diagnostic Imaging: . Assess/Plan/Problems-Billing Assessment: 78 yr old female with pmh of severe copd and chronic hypoxic resp failure who is on 3L supplemental O2 at home. She also has hx of htn, AAA, HLD, hyponatermia , who presented to the ED due to sob and found to have COPD exacerbation. Her stay was complicated by slowly up trending trops which have now stablized - Patient Problems (1) Acute and chronic respiratory failure with hypoxia Comment: - Continues to have mild decreased aeration and sporadic wheezing. Aeration improved from yesterday - Continue IV steriods and nebulizers. - Cont Azithromax - At baseline O2 supplementation - Reports sob improving - Patient will need slow taper of PO steriods at discharge with follow up with Dr Chester who she is already established (2) Congestive heart failure (CHF) Comment: - Echo yesterday revealed reduction in EF from 50-55% in June to 20-30% now. In addition to new global hypokensis of left ventricle, severly decrease left ventricle systolic function, and mild to moderate (which more severe than in June) - Patient will need JULY follow up with Dr Shultz as he wants to see her before the holidays per patient. Per patient, her and Dr Shultz also discussed a cardiac cath after the holidays. (3) Elevated troponin Comment: - Slow increase in trops noted from 0.06 at admission to 1.14. Now trending back down. - DDmier 226. VQ scan ordered but patient refused. Given patient's Wells Score is 1.5 and DDimer is negative (below 230), I have a low suspicsion for PE. Imaging will be cancelled. - Asymptomatic except sob which she attributes to COPD - SR on tele with occasional PVCs - No acute changes in EKG - Cardiology consulted and we appreciate their input. - Lipid profile ordered. LDL 111. Decision to increase statin will be defered to PCP and Slot Manager as oupatient since she is close to goal. - Reports she use to be on a baby ASA but stopped as she read it was not beneficial. She did not have any adverse effects and is willing to start taking it again. - ASA ordered (4) COPD exacerbation Comment: - Improving slowly. - Cont abx, nebs, inhaler. - Established with [facility] and will need close follow up - Path program consulted and we appreciate their consult. (5) Hyperlipidemia Comment: - Continue atorvastatin. (6) HTN (hypertension) Comment: - Cont irbesartan and lasix at home dose (7) Peripheral neuropathy Comment: - Cont Lyrica (8) Full code status Comment: - Full Code (9) DVT prophylaxis Comment: - Lovenox. Status and Disposition: D/C home when medically stable. Attending: Wanda Montaño
[2018-03-20] MEDS: Enoxaparin(*) 40 MG/0.4 ML SYR SUBCUT SCH (15:56)
--- NOTE | 2018-03-20 18:56 | PN ---
Subjective Date of Service: 03/20/18 - CC: SOB, chest pressure/heaviness Interval History: The patient states breathing is much much better than on admission. She is not having any chest discomfort now, but was getting heaviness across chest when very SOB recently. Medications Active Medications: Albuterol (Ventolin 2.5 Mg/3 Ml Neb.Lisandra*) 2.5 mg INH [id number] AWAKE [facility] Last Admin: 03/20/18 14:46 Dose: 2.5 mg Albuterol/Ipratropium (Duoneb (Albuterol 2.5 Mg/Ipratropium 0.5 Mg)) 1 neb INH QID PRN PRN Reason: SHORTNESS OF BREATH Aspirin (Aspirin 81 Mg Chew Tab*) 81 mg PO DAILY [facility] Last Admin: 03/20/18 07:19 Dose: 81 mg Atorvastatin Calcium (Lipitor*) 10 mg PO DAILY [facility] Last Admin: 03/20/18 07:19 Dose: 10 mg Azithromycin (Zithromax Tab*) 500 mg PO DAILY [facility] Last Admin: 03/20/18 07:19 Dose: 500 mg Docusate Sodium (Colace Cap*) 100 mg PO DAILY [facility] Last Admin: 03/20/18 07:19 Dose: 100 mg Enoxaparin Sodium (Lovenox(*)) 40 mg SUBCUT Q24H [facility] Last Admin: 03/20/18 15:56 Dose: 40 mg Furosemide (Lasix Tab*) 20 mg PO DAILY [facility] Last Admin: 03/20/18 07:18 Dose: 20 mg Lorazepam (Ativan Tab(*)) 0.5 mg PO Q6H PRN PRN Reason: ANXIETY Losartan Potassium (Cozaar Tab*) 50 mg PO DAILY [facility] Last Admin: 03/20/18 07:19 Dose: 50 mg Methylprednisolone Sodium Succinate (Solu-Medrol 40 Mg) 40 mg IV Q12H [facility] Last Admin: 03/20/18 10:58 Dose: 40 mg Mometasone Furoate/Formoterol Fumar (Dulera 200/5 Mdi*) 2 puff INH BID [facility]; Protocol Last Admin: 03/20/18 07:36 Dose: 2 puff Multivitamins/Minerals (Theragran/Minerals Tab*) 1 tab PO DAILY [facility] Last Admin: 03/20/18 07:19 Dose: 1 tab Pregabalin (Lyrica Cap(*)) 25 mg PO QAM [facility] Last Admin: 03/20/18 07:18 Dose: 25 mg Pregabalin (Lyrica Cap(*)) 50 mg PO BEDTIME [facility] Last Admin: 03/19/18 22:15 Dose: 50 mg Senna (Senokot Tab*) 1 tab PO DAILY PRN PRN Reason: CONSTIPATION Objective Vital Signs: Temp Pulse Resp BP Pulse Ox 97.5 F 83 18 132/67 95 03/20/18 15:28 03/20/18 15:28 03/20/18 15:28 03/20/18 15:28 03/20/18 15:28 Oxygen Devices in Use Now: Nasal Cannula Appearance: short, overweight woman, seated, appears comfortable, NC/O2 on. Eyes: No Scleral Icterus, PERRLA Ears/Nose/Mouth/Throat: Clear Oropharnyx, Mucous Membranes Moist Neck: NL Appearance and Movements; NL JVP Respiratory: Symmetrical Chest Expansion and Respiratory Effort - diffuse inspiratory and expiratory wheezing and markedly diminshed air movement. Cardiovascular: RRR - soft SM Erb's point. Abdominal: - - obese, soft, non tender, normal bowel sounds Extremities: - - 2-3 + edema feet and lower legs, fine varicocities noted. Skin: - - face, lips pink. Neurological: Alert and Oriented x 3 Lines/Tubes/Other Access: Clean, Dry and Intact Peripheral IV Laboratory Results: 03/19/18 05:52 03/19/18 05:52 INR (Anticoag Therapy) 0.92 (0.77-1.02) 03/18/18 02:44 APTT 38.9 seconds (26.0-36.3) H 03/18/18 02:44 Total Bilirubin 0.60 mg/dL (0.2-1.0) 03/18/18 02:44 AST 21 U/L (13-39) 03/18/18 02:44 ALT 14 U/L (7-52) 03/18/18 02:44 Alkaline Phosphatase 54 U/L (34-104) 03/18/18 02:44 B-Natriuretic Peptide 114 pg/mL (<=100) H 03/18/18 02:44 Total Protein 6.6 g/dL (6.4-8.9) 03/18/18 02:44 Albumin 3.9 g/dL (3.2-5.2) 03/18/18 02:44 Globulin 2.7 g/dL (2-4) 03/18/18 02:44 Albumin/Globulin Ratio 1.4 (1-3) 03/18/18 02:44 Triglycerides 80 mg/dL 03/19/18 05:52 Cholesterol 187 mg/dL 03/19/18 05:52 LDL Cholesterol 111 mg/dL 03/19/18 05:52 HDL Cholesterol 60.5 mg/dL 03/19/18 05:52 03/18/18 03/18/18 03/18/18 02:44 06:51 09:57 Troponin I 0.06 H* 0.58 H* 0.90 H* 03/18/18 03/18/18 03/19/18 13:22 16:54 05:52 Troponin I 1.03 H* 1.14 H* 0.74 H* Diagnostic Imaging: Echo: mild , EF 25-50% (new drop). EKG Data: ECG's: NSR 80's, LAD, poor R wave progression, no acute ST changes. Assessment/Plan 78 yo with severe COPD admitted with COPD exacerbation and chest pressure. Troponins elevated and EF severely dropped. Chest pressure: May be ischemia due to hypoxia alone or hypoxia + CAD. Agree with Dr Shultz's plans to cath when lungs are stable. Continue to optimize pulmonary status. Continue STatin. Consider adding ASA CM: On Cozaar and lasix. Doubt she will tolerate BB. Option of lowering lasix, adding aldactone HOWEVER this might lead to hyponatremia (based on PMHx), watch lytes carefully if add. Volume overload and valvular heart disease: Dr Crump evaluated in August. Per pt since lasix started fluid status much better. Continue with above plan of diuretics and ARB and optimization of pulmonary status.
[2018-03-20] MEDS: guaiFENesin ER TAB 600 MG PO SCH (21:05)
[2018-03-20] MEDS: Pregabalin CAP(*) 50 MG PO SCH (21:06)
[2018-03-21] MEDS: Albuterol 2.5 MG/3 ML NEB.SOL* (0.083%) INH SCH ×5 (01:36→19:49)
[2018-03-21] MEDS: Mometasone/Formoter 200/5 MDI INH SCH ×2 (08:13→19:50)
[2018-03-21] MEDS: Atorvastatin* 10 MG TAB PO SCH (09:33)
[2018-03-21] MEDS: Azithromycin TAB* 250 MG PO SCH (09:33)
[2018-03-21] MEDS: Losartan TAB* 25 MG PO SCH (09:34)
[2018-03-21] MEDS: Docusate CAP* 100 MG PO SCH (09:34)
[2018-03-21] MEDS: Aspirin 81 mg CHEW TAB* 81 MG TAB.CHEW PO SCH (09:34)
[2018-03-21] MEDS: guaiFENesin ER TAB 600 MG PO SCH ×2 (09:34→22:14)
[2018-03-21] MEDS: Furosemide TAB* 20 MG PO SCH (09:34)
[2018-03-21] MEDS: Multivitamins/Minerals TAB PO SCH (09:34)
[2018-03-21] MEDS: Pregabalin CAP(*) 25 MG PO SCH (09:34)
[2018-03-21 09:40] LABS: ABS Basophils 0 10^3/ul (0-0.2); ABS Eosinophils 0 10^3/ul (0-0.6); ABS Lymphocytes 0.7 10^3/ul (1.0-4.8); ABS Monocytes 0.5 10^3/ul (0-0.8); ABS Neutrophils 5.4 10^3/ul (1.5-7.7); ABS Nucleated RBC 0 10^3/ul; Eosinophil % 0 %; Hematocrit 42 % (35-47); Lymphocyte % 10.1 %; Mean Corpuscular HGB Conc 33 g/dl (31-36); Mean Corpuscular Hemoglobin 31 pg (27-31); Mean Corpuscular Volume 92 fL (80-97); Mean Platelet Volume 8.9 fL (7.4-10.4); Nucleated Red Blood Cells % 0; Platelet Count 212 10^3/ul (150-450); Red Blood Count 4.57 10^6/ul (4.00-5.40); Red Cell Distribution Width 13 % (10.5-15); White Blood Count 6.6 10^3/ul (3.5-10.8)
[2018-03-21 10:01] LABS: Albumin 3.6 g/dL (3.2-5.2); Albumin/Globulin Ratio 1.4 (1-3); BUN/Creatinine Ratio 31.9 (8-20); Calcium 8.7 mg/dL (8.6-10.3); EGFR Non-African American 59.8 (>60); Globulin 2.5 g/dL (2-4); Magnesium 2.2 mg/dL (1.9-2.7); Potassium 4.5 mmol/L (3.5-5.0); Total Bilirubin 0.3 mg/dL (0.2-1.0); Total Protein 6.1 g/dL (6.4-8.9)
[2018-03-21] MEDS: methylPREDNISolone SOD 40 MG* 1 ML VIAL IV SCH ×2 (11:36→22:14)
--- NOTE | 2018-03-21 13:41 | PN ---
Subjective Date of Service: 03/21/18 Interval History: Patient reports she feels better today and hopes she is ready to go home tomorrow. She feels steady on her feet. Reports her breathing is better. continues to cough with some sputum production but is less than the last few days. Denies CP. No fevers or chills Objective Active Medications: Albuterol (Ventolin 2.5 Mg/3 Ml Neb.Lisandra*) 2.5 mg INH [id number] AWAKE [facility] Last Admin: 03/21/18 08:12 Dose: 2.5 mg Albuterol/Ipratropium (Duoneb (Albuterol 2.5 Mg/Ipratropium 0.5 Mg)) 1 neb INH QID PRN PRN Reason: SHORTNESS OF BREATH Aspirin (Aspirin 81 Mg Chew Tab*) 81 mg PO DAILY [facility] Last Admin: 03/21/18 09:34 Dose: 81 mg Atorvastatin Calcium (Lipitor*) 10 mg PO DAILY [facility] Last Admin: 03/21/18 09:33 Dose: 10 mg Azithromycin (Zithromax Tab*) 500 mg PO DAILY [facility] Last Admin: 03/21/18 09:33 Dose: 500 mg Docusate Sodium (Colace Cap*) 100 mg PO DAILY [facility] Last Admin: 03/21/18 09:34 Dose: 100 mg Enoxaparin Sodium (Lovenox(*)) 40 mg SUBCUT Q24H [facility] Last Admin: 03/20/18 15:56 Dose: 40 mg Furosemide (Lasix Tab*) 20 mg PO DAILY [facility] Last Admin: 03/21/18 09:34 Dose: 20 mg Guaifenesin (Mucinex*) 600 mg PO BID [facility] Last Admin: 03/21/18 09:34 Dose: 600 mg Lorazepam (Ativan Tab(*)) 0.5 mg PO Q6H PRN PRN Reason: ANXIETY Losartan Potassium (Cozaar Tab*) 50 mg PO DAILY [facility] Last Admin: 03/21/18 09:34 Dose: 50 mg Methylprednisolone Sodium Succinate (Solu-Medrol 40 Mg) 40 mg IV Q12H [facility] Last Admin: 03/21/18 11:36 Dose: 40 mg Mometasone Furoate/Formoterol Fumar (Dulera 200/5 Mdi*) 2 puff INH BID [facility]; Protocol Last Admin: 03/21/18 08:13 Dose: 2 puff Multivitamins/Minerals (Theragran/Minerals Tab*) 1 tab PO DAILY [facility] Last Admin: 03/21/18 09:34 Dose: 1 tab Pregabalin (Lyrica Cap(*)) 25 mg PO QAM [facility] Last Admin: 03/21/18 09:34 Dose: 25 mg Pregabalin (Lyrica Cap(*)) 50 mg PO BEDTIME [facility] Last Admin: 03/20/18 21:06 Dose: 50 mg Senna (Senokot Tab*) 1 tab PO DAILY PRN PRN Reason: CONSTIPATION Last Admin: 03/20/18 21:06 Dose: 1 tab Vital Signs - 8 hr 03/21/18 03/21/18 03/21/18 07:34 08:14 09:34 Temperature 98.1 F Pulse Rate 77 74 Respiratory 16 14 20 Rate Blood Pressure 141/84 (mmHg) O2 Sat by Pulse 98 99 Oximetry 03/21/18 12:58 Temperature Pulse Rate Respiratory 16 Rate Blood Pressure (mmHg) O2 Sat by Pulse Oximetry Oxygen Devices in Use Now: Nasal Cannula Appearance: 78 yo female sitting up in bed in NAD A+O x3 Eyes: No Scleral Icterus, PERRLA Ears/Nose/Mouth/Throat: NL Teeth, Lips, Gums, Mucous Membranes Moist Respiratory: Symmetrical Chest Expansion and Respiratory Effort, - - diminished b/l Cardiovascular: NL Sounds; No Murmurs; No JVD, RRR, - - 1+ edema b/l Abdominal: NL Sounds; No Tenderness; No Distention, - - obese Extremities: No Clubbing, Cyanosis Skin: No Rash or Ulcers, No Nodules or Sclerosis Neurological: Alert and Oriented x 3, NL Sensation, NL Gait, NL Muscle Strength and Tone Lines/Tubes/Other Access: Clean, Dry and Intact Peripheral IV Nutrition: Taking PO's Result Diagrams: 03/21/18 09:05 03/21/18 09:05 Additional Lab and Data: Laboratory Results - last 24 hr 03/18/18 03/18/18 03/19/18 13:22 16:54 05:52 WBC 6.3 RBC 4.37 Hgb 13.3 Hct 40 MCV 91 MCH 30 MCHC 33 RDW 13 Plt Count 190 MPV 9.0 Neut % (Auto) 88.6 Lymph % (Auto) 5.1 Dawson % (Auto) 6.2 Eos % (Auto) 0 Baso % (Auto) 0.1 Absolute Neuts (auto) 5.6 Absolute Lymphs (auto) 0.3 L Absolute Monos (auto) 0.4 Absolute Eos (auto) 0 Absolute Basos (auto) 0 Absolute Nucleated RBC 0 Nucleated RBC % 0.1 Sodium Potassium Chloride Carbon Dioxide Anion Gap BUN Creatinine Est GFR ( Amer) Est GFR (Non-Af Amer) BUN/Creatinine Ratio Glucose Calcium Magnesium Troponin I 1.03 H* 1.14 H* Triglycerides Cholesterol LDL Cholesterol HDL Cholesterol 03/19/18 05:52 WBC RBC Hgb Hct MCV MCH MCHC RDW Plt Count MPV Neut % (Auto) Lymph % (Auto) Dawson % (Auto) Eos % (Auto) Baso % (Auto) Absolute Neuts (auto) Absolute Lymphs (auto) Absolute Monos (auto) Absolute Eos (auto) Absolute Basos (auto) Absolute Nucleated RBC Nucleated RBC % Sodium 135 Potassium 4.3 Chloride 101 Carbon Dioxide 28 Anion Gap 6 BUN 24 Creatinine 0.93 Est GFR ( Amer) 70.6 Est GFR (Non-Af Amer) 58.3 BUN/Creatinine Ratio 25.8 H Glucose 139 H Calcium 8.6 Magnesium 2.2 Troponin I 0.74 H* Triglycerides 80 Cholesterol 187 LDL Cholesterol 111 HDL Cholesterol 60.5 Microbiology and Other Data: Microbiology 03/18/18 02:44 Blood Venous Aerobic Blood Culture - Preliminary No Growth Day 1 03/18/18 02:44 Blood Venous Anaerobic Blood Culture - Preliminary No Growth Day 1 03/18/18 02:44 Blood Venous Aerobic Blood Culture - Preliminary No Growth Day 1 03/18/18 02:44 Blood Venous Anaerobic Blood Culture - Preliminary No Growth Day 1 Diagnostic Imaging: . Assess/Plan/Problems-Billing Assessment: 78 yr old female with pmh of severe copd and chronic hypoxic resp failure who is on 3L supplemental O2 at home. She also has hx of htn, AAA, HLD, hyponatermia , who presented to the ED due to sob and found to have COPD exacerbation. Her stay was complicated by slowly up trending trops which have now stablized - Patient Problems (1) Acute and chronic respiratory failure with hypoxia Comment: - Continues to have diminished lungs b/l - Continue steriods switch to PO and nebulizers. - Cont Azithromax - change to PO - At baseline O2 supplementation - Patient will need slow taper of PO steriods at discharge with follow up with Dr Chester who she is already established (2) Congestive heart failure (CHF) Comment: - Echo yesterday revealed reduction in EF from 50-55% in June to 20-30% now. In addition to new global hypokensis of left ventricle, severly decrease left ventricle systolic function, and mild to moderate (which more severe than in June) - Patient will need JULY follow up with Dr Shultz as he wants to see her before the holidays per patient. Per patient, her and Dr Shultz also discussed a cardiac cath after the holidays. (3) Elevated troponin Comment: - Slow increase in trops noted from 0.06 at admission to 1.14. Now trending back down. - DDmier 226. VQ scan ordered but patient refused. Given patient's Wells Score is 1.5 and DDimer is negative (below 230), I have a low suspicsion for PE. Imaging will be cancelled. - Asymptomatic except sob which she attributes to COPD - SR on tele with occasional PVCs - No acute changes in EKG - Cardiology consulted and we appreciate their input. - Lipid profile ordered. LDL 111. Decision to increase statin will be defered to PCP and It Service Manager as oupatient since she is close to goal. - continue ASA (4) COPD exacerbation Comment: - Improving slowly. - Cont abx, nebs, inhaler. - Established with [facility] and will need close follow up - Path program consulted and we appreciate their consult. (5) HTN (hypertension) Comment: - Cont irbesartan and lasix at home dose (6) Peripheral neuropathy Comment: - Cont Lyrica (7) Full code status Comment: - Full Code Status and Disposition: D/C home when medically stable. Possibly tomorrow
[2018-03-21] MEDS: Enoxaparin(*) 40 MG/0.4 ML SYR SUBCUT SCH (15:56)
[2018-03-21] MEDS: Pregabalin CAP(*) 50 MG PO SCH (22:14)
[2018-03-22] MEDS: Albuterol 2.5 MG/3 ML NEB.SOL* (0.083%) INH SCH ×3 (01:16→12:23)
[2018-03-22] MEDS: Mometasone/Formoter 200/5 MDI INH SCH (07:07)
[2018-03-22] MEDS: Azithromycin TAB* 250 MG PO SCH (08:34)
[2018-03-22] MEDS: Atorvastatin* 10 MG TAB PO SCH (08:34)
[2018-03-22] MEDS: guaiFENesin ER TAB 600 MG PO SCH (08:34)
[2018-03-22] MEDS: Aspirin 81 mg CHEW TAB* 81 MG TAB.CHEW PO SCH (08:34)
[2018-03-22] MEDS: Multivitamins/Minerals TAB PO SCH (08:34)
[2018-03-22] MEDS: Docusate CAP* 100 MG PO SCH (08:34)
[2018-03-22] MEDS: Losartan TAB* 25 MG PO SCH (08:35)
[2018-03-22] MEDS: Furosemide TAB* 20 MG PO SCH (08:35)
[2018-03-22] MEDS: Pregabalin CAP(*) 25 MG PO SCH (08:35)
[2018-03-22] MEDS: methylPREDNISolone SOD 40 MG* 1 ML VIAL IV SCH (12:11)
[2018-03-22 12:13] VITALS: BP 126/66
--- NOTE | 2018-03-22 12:24 | DCNOTE ---
Subjective Date of Service: 03/22/18 Interval History: Patient states she is ready to go home today and states she is at her baseline. Denies SOB/Cough. Denies CP. Denies fever or chills. reports she feels steady onm her feet. Objective Active Medications: Albuterol (Ventolin 2.5 Mg/3 Ml Neb.Lisandra*) 2.5 mg INH [id number] AWAKE [facility] Last Admin: 03/22/18 07:07 Dose: 2.5 mg Albuterol/Ipratropium (Duoneb (Albuterol 2.5 Mg/Ipratropium 0.5 Mg)) 1 neb INH QID PRN PRN Reason: SHORTNESS OF BREATH Aspirin (Aspirin 81 Mg Chew Tab*) 81 mg PO DAILY [facility] Last Admin: 03/22/18 08:34 Dose: 81 mg Atorvastatin Calcium (Lipitor*) 10 mg PO DAILY [facility] Last Admin: 03/22/18 08:34 Dose: 10 mg Azithromycin (Zithromax Tab*) 500 mg PO DAILY [facility] Last Admin: 03/22/18 08:34 Dose: 500 mg Docusate Sodium (Colace Cap*) 100 mg PO DAILY [facility] Last Admin: 03/22/18 08:34 Dose: 100 mg Enoxaparin Sodium (Lovenox(*)) 40 mg SUBCUT Q24H [facility] Last Admin: 03/21/18 15:56 Dose: 40 mg Furosemide (Lasix Tab*) 20 mg PO DAILY [facility] Last Admin: 03/22/18 08:35 Dose: 20 mg Guaifenesin (Mucinex*) 600 mg PO BID [facility] Last Admin: 03/22/18 08:34 Dose: 600 mg Lorazepam (Ativan Tab(*)) 0.5 mg PO Q6H PRN PRN Reason: ANXIETY Losartan Potassium (Cozaar Tab*) 50 mg PO DAILY [facility] Last Admin: 03/22/18 08:35 Dose: 50 mg Mometasone Furoate/Formoterol Fumar (Dulera 200/5 Mdi*) 2 puff INH BID [facility]; Protocol Last Admin: 03/22/18 07:07 Dose: 2 puff Multivitamins/Minerals (Theragran/Minerals Tab*) 1 tab PO DAILY [facility] Last Admin: 03/22/18 08:34 Dose: 1 tab Pregabalin (Lyrica Cap(*)) 25 mg PO QAM [facility] Last Admin: 03/22/18 08:35 Dose: 25 mg Pregabalin (Lyrica Cap(*)) 50 mg PO BEDTIME [facility] Last Admin: 03/21/18 22:14 Dose: 50 mg Senna (Senokot Tab*) 1 tab PO DAILY PRN PRN Reason: CONSTIPATION Last Admin: 03/20/18 21:06 Dose: 1 tab Vital Signs - 8 hr 03/22/18 03/22/18 03/22/18 07:15 08:01 08:35 Temperature 98.3 F Pulse Rate 75 79 Respiratory 17 16 20 Rate Blood Pressure 140/73 (mmHg) O2 Sat by Pulse 96 94 Oximetry 03/22/18 03/22/18 03/22/18 09:10 11:13 11:29 Temperature 98.0 F Pulse Rate 81 Respiratory 18 16 16 Rate Blood Pressure 126/66 (mmHg) O2 Sat by Pulse 95 Oximetry Oxygen Devices in Use Now: Nasal Cannula Appearance: 78 yo female sitting up in bed A+O x3 Eyes: No Scleral Icterus, PERRLA Ears/Nose/Mouth/Throat: NL Teeth, Lips, Gums, Mucous Membranes Moist Neck: NL Appearance and Movements; NL JVP Respiratory: Clear to Auscultation Cardiovascular: NL Sounds; No Murmurs; No JVD, RRR Abdominal: NL Sounds; No Tenderness; No Distention Lymphatic: No Cervical Adenopathy Extremities: No Edema, No Clubbing, Cyanosis Skin: No Rash or Ulcers Neurological: Alert and Oriented x 3, NL Sensation, NL Muscle Strength and Tone Lines/Tubes/Other Access: Clean, Dry and Intact Peripheral IV Nutrition: Taking PO's Result Diagrams: 03/21/18 09:05 03/21/18 09:05 Additional Lab and Data: Laboratory Results - last 24 hr 03/18/18 03/18/18 03/19/18 13:22 16:54 05:52 WBC 6.3 RBC 4.37 Hgb 13.3 Hct 40 MCV 91 MCH 30 MCHC 33 RDW 13 Plt Count 190 MPV 9.0 Neut % (Auto) 88.6 Lymph % (Auto) 5.1 Hand % (Auto) 6.2 Eos % (Auto) 0 Baso % (Auto) 0.1 Absolute Neuts (auto) 5.6 Absolute Lymphs (auto) 0.3 L Absolute Monos (auto) 0.4 Absolute Eos (auto) 0 Absolute Basos (auto) 0 Absolute Nucleated RBC 0 Nucleated RBC % 0.1 Sodium Potassium Chloride Carbon Dioxide Anion Gap BUN Creatinine Est GFR ( Amer) Est GFR (Non-Af Amer) BUN/Creatinine Ratio Glucose Calcium Magnesium Troponin I 1.03 H* 1.14 H* Triglycerides Cholesterol LDL Cholesterol HDL Cholesterol 03/19/18 05:52 WBC RBC Hgb Hct MCV MCH MCHC RDW Plt Count MPV Neut % (Auto) Lymph % (Auto) Hand % (Auto) Eos % (Auto) Baso % (Auto) Absolute Neuts (auto) Absolute Lymphs (auto) Absolute Monos (auto) Absolute Eos (auto) Absolute Basos (auto) Absolute Nucleated RBC Nucleated RBC % Sodium 135 Potassium 4.3 Chloride 101 Carbon Dioxide 28 Anion Gap 6 BUN 24 Creatinine 0.93 Est GFR ( Amer) 70.6 Est GFR (Non-Af Amer) 58.3 BUN/Creatinine Ratio 25.8 H Glucose 139 H Calcium 8.6 Magnesium 2.2 Troponin I 0.74 H* Triglycerides 80 Cholesterol 187 LDL Cholesterol 111 HDL Cholesterol 60.5 Microbiology and Other Data: Microbiology 03/18/18 02:44 Blood Venous Aerobic Blood Culture - Preliminary No Growth Day 1 03/18/18 02:44 Blood Venous Anaerobic Blood Culture - Preliminary No Growth Day 1 03/18/18 02:44 Blood Venous Aerobic Blood Culture - Preliminary No Growth Day 1 03/18/18 02:44 Blood Venous Anaerobic Blood Culture - Preliminary No Growth Day 1 Diagnostic Imaging: . Assess/Plan/Problems-Billing Assessment: 78 yr old female with pmh of severe copd and chronic hypoxic resp failure who is on 3L supplemental O2 at home. She also has hx of htn, AAA, HLD, hyponatermia , who presented to the ED due to sob and found to have COPD exacerbation. Her stay was complicated by slowly up trending trops which have now stablized - Patient Problems (1) Acute and chronic respiratory failure with hypoxia Comment: - Resolved - pt is at her baseline - Finished course of Azithromax - At baseline O2 supplementation - Patient will need slow taper of PO steriods at discharge with follow up with Dr Chester who she is already established (2) Congestive heart failure (CHF) Comment: - Mild acute on chronic severe diastolic congestive heart failure - now resolved - Echo revealed reduction in EF from 50-55% in June to 20-30% now. In addition to new global hypokensis of left ventricle, severly decrease left ventricle systolic function, and mild to moderate (which more severe than in June) - Patient will need JULY follow up with Dr Shultz as he wants to see her before the holidays per patient. Per patient, her and Dr Shultz also discussed a cardiac cath after the holidays. appoint scheduled (3) Elevated troponin Comment: - asymptomatic - Slow increase in trops noted from 0.06 at admission to 1.14. Now trending back down. - DDmier 226. VQ scan ordered but patient refused. Given patient's Wells Score is 1.5 and DDimer is negative (below 230), low suspicsion for PE. - Asymptomatic except sob which she attributes to COPD - SR on tele with occasional PVCs - No acute changes in EKG - Cardiology consulted and we appreciate their input. - Lipid profile ordered. LDL 111. Decision to increase statin will be defered to PCP and Multigrapher as oupatient since she is close to goal. - continue ASA (4) COPD exacerbation Comment: - At baseline - Cont nebs, inhaler at home - Established with [facility] and will need close follow up - has appoint scheduled - Path program consulted and we appreciate their consult. (5) HTN (hypertension) Comment: - Cont irbesartan and lasix at home dose (6) Peripheral neuropathy Comment: - Cont Lyrica (7) Full code status Comment: - Full Code Status and Disposition: D/C home today
--- NOTE | 2018-03-22 14:31 | PN ---
Progress Note - Progress Note Date of Service: 03/22/18 Note: Follow up visit to patient regarding her code status. Patient had not made a decision because she is still waiting to talk with her daughter her when she is home.
--- NOTE | 2018-03-25 10:29 | DS ---
CC: Echo Rivero NP * DISCHARGE SUMMARY: DATE OF ADMISSION: 03/18/18 DATE OF DISCHARGE: 03/22/18 PROVIDER: Westley Alba NP. ATTENDING PHYSICIAN: Dr. Muñoz.* (DICTATED BY ART ALBA NP) PRIMARY CARE PROVIDER: Echo Rivero NP, and Dr. Zimmer. ERCO MACHINE OPERATOR: Dr. Chester. DONOR RELATIONS OFFICER: Dr. Crump. DISCHARGE DIAGNOSES: 1. Acute on chronic respiratory failure with chronic obstructive pulmonary disease exacerbation. 2. Acute on chronic diastolic congestive heart failure. 3. Elevated troponin, suspect demand ischemia. SECONDARY DIAGNOSES: 1. Chronic hypoxic respiratory failure. 2. Hypertension. 3. Abdominal aortic aneurysm. 4. Hyperlipidemia. 5. History of hyponatremia, likely secondary to syndrome of inappropriate antidiuretic hormone. 6. Peripheral neuropathy. 7. Osteoporosis. 8. History of colon cancer, status post resection and chemotherapy. HISTORY OF PRESENT ILLNESS AND HOSPITAL COURSE: Please see history and physical by Dr. Morton for full admission details, but in summary, this is a 78- year-old female with a past medical history of severe COPD and chronic hypoxic respiratory failure, who uses 3 L of oxygen continuously at home, who presented to the emergency department on 03/18/18 with complaints of sudden shortness of breath. The patient reported that she was feeling fine prior to experiencing the shortness of breath and noted she had marked wheezing and contacted 911 due to her severity of shortness of breath and she was brought to the emergency department for further evaluation. In the emergency department, her wheezing had resolved and her breathing fell back to her baseline; however, she continued to have tight sounding airway entry and diminished breath sounds and was admitted to the hospitalist service for COPD exacerbation. She was started on IV steroids and standing nebulizing treatments as well as azithromycin. She was very slow to improve throughout the hospitalization. She had aggressive pulmonary toileting with flutter valve and standing nebulizers as well as she was noted to have a mild acute on chronic diastolic heart failure exacerbation, which resolved with her normal home dose of oral Lasix. She was found to have an elevated troponin, which peaked at 1.14 and trended back down. It is possible this is secondary to demand ischemia; however, there is concern for coronary artery disease. She was seen in consultation by Dr. Shultz, and the plan is for the patient to follow up with Dr. Shultz as an outpatient within the next couple weeks with most likely plan for cardiac catheterization after the first of the year. The patient never had chest pain or discomfort. She did report some heaviness across her chest; however, she was also experiencing wheezing. The patient underwent an echocardiogram and was noted to have severe drop in her ejection fraction, which revealed a reduction in her EF from 50% to 55% in June to 20% to 30% now. She had her D-dimer checked, which was 226 and a V/Q scan was ordered however, the patient refused this. Given the patient's Wells' score at 1.5 and a low D-dimer, there was a low suspicion for pulmonary embolism. Today on discharge, the patient is stable for discharge home. She states that she is at her baseline. The patient was seen in consultation by hospice physician, Dr. Mukherjee, as well as Dr. Cordova for her progressive deterioration of her COPD and lung function and they discussed the value of advance directives. The patient currently remains a full code status and hospitalization, although she did report she preferred to avoid further hospitalizations. Options were discussed with her to allow her to remain in the home including palliative care and hospice services. Options were discussed for DNR/DNI/DNH status; however, she would like to talk to her family before altering her MOLST. The patient will be referred for outpatient [facility] program, which would give her access to 24-hour nursing on-call service through hospice nurses to hopefully avoid further hospitalizations and ER visits. DISCHARGE MEDICATIONS: 1. Albuterol HFA inhaler 2 puffs INH q.4 hours p.r.n. 2. Claritin 10 mg p.o. daily p.r.n. 3. Calcium carbonate/vitamin D3 1 p.o. daily. 4. Symbicort 160 mg/4.5 two puffs INH b.i.d. 5. Vitamin C 1000 mg p.o. daily. 6. DuoNeb 2.5 mg/0.5 mg 1 neb INH 4 times a day p.r.n. 7. Ativan 0.5 mg p.o. q.6 hours p.r.n. 8. Irbesartan 150 mg p.o. daily. 9. Lasix 20 mg p.o. daily. 10. Colace 100 mg p.o. daily. 11. Vitamin B complex 1 cap p.o. daily. 12. Zocor 20 mg p.o. daily. 13. Senna 1 cap p.o. daily p.r.n. 14. Lyrica 50 mg p.o. at bedtime. 15. Lyrica 25 mg p.o. q.a.m. 16. Multivitamin with mineral 1 tab p.o. daily. 17. Vitamin E cap 400 units p.o. daily. 18. Aspirin 81 mg p.o. daily. 19. Prednisone taper. DISCHARGE PLAN: 1. Palliative/Hospice will follow up through the PATH program as an outpatient. 2. Follow up with primary care provider on 03/25/18 at [address] Zimmer. 3. Follow up with Dr. Chester on 03/27/18 at 8:45 a.m. 4. Follow up with Dr. Shultz on 04/12/18 at 1:45 p.m. 5. The patient is stable for discharge to home. Thus, she was seen by Physical Therapy, who reported she has no acute PT needs, however would benefit from Home Health PT eval. TIME SPENT: Approximately 60 minutes were spent on this discharge. Please do not hesitate to contact me for further questions regarding this patient's hospitalization. ART ALBA NP [id number]/CPS #: [id number] MTDD
== END 2018-03-22 14:30 | disposition home health service (06) | DRG 291 ==
LOC: ED 02:08 → MED 04:07 → OBSVTOIN 03-19 16:36
PROVIDERS: ADMIT Hospitalist; ATTEND Internal Medicine
DX: I11.0 Hypertensive heart disease with heart failure (principal); J96.21 Acute and chronic respiratory failure with hypoxia; J44.1 Chronic obstructive pulmonary disease with (acute) exacerbation; E22.2 Syndrome of inappropriate secretion of antidiuretic hormone; I24.8 Other forms of acute ischemic heart disease; I50.33 Acute on chronic diastolic (congestive) heart failure; Z99.81 Dependence on supplemental oxygen; G62.9 Polyneuropathy, unspecified; I35.0 Nonrheumatic aortic (valve) stenosis; I71.4 Abdominal aortic aneurysm, without rupture; E78.5 Hyperlipidemia, unspecified; M81.0 Age-related osteoporosis without current pathological fracture; R74.8 Abnormal levels of other serum enzymes; E66.9 Obesity, unspecified; Z96.652 Presence of left artificial knee joint; Z79.1 Long term (current) use of non-steroidal anti-inflammatories (NSAID); Z79.51 Long term (current) use of inhaled steroids; Z79.899 Other long term (current) drug therapy; Z88.5 Allergy status to narcotic agent; Z88.0 Allergy status to penicillin; Z80.1 Family history of malignant neoplasm of trachea, bronchus and lung; Z80.0 Family history of malignant neoplasm of digestive organs; Z87.891 Personal history of nicotine dependence; Z85.038 Personal history of other malignant neoplasm of large intestine; Z68.38 Body mass index [BMI] 38.0-38.9, adult
CPT/HCPCS: 36415; 71045; 71046; 80048; 80053; 80061; 83605; 83735; 83880; 84484; 85025; 85379; 85610; 85730; 86140; 87040; 93005; 93306; 94640; 99285; A9270-GY; G0378; G8978-GP-CI; G8979-GP-CI; G8980-GP-CI; J1650; J2920; J2930; J3475

== ENCOUNTER 2018-06-21 11:15 | Inpatient (IN) | payer MEDICARE, BC ==
[2018-06-21] MEDS ORDERED: Albuterol/Ipratropium NEB.SOL* Albuterol 2.5 MG/Ipratropium 0.5 MG 3 ML INH ONE (11:25)
--- NOTE | 2018-06-21 11:29 | ED ---
Shortness of Breath - HPI Summary HPI Summary: A 78 y/o female brought in by [facility] ambulance presents to [facility] with a chief complaint of shortness of breath since 06/20/18. She reports also reports a nonproductive cough and swelling in her legs. She denies chills, erythema (eyes) , sore throat, chest pain, abdominal pain, vomiting, nausea dysuria, hematuria, myalgia, rash and dizziness. She is unsure whether she has a fever. At triage she rated her pain as a 0/10 in severity and had a temperature of 100.1. She has a Hx of COPD and per EMS she is on 2-4 L O2 constantly. She denies a Hx of ID or a SHx of stents or bypass. She reports that in April 2018 she had a cardiac catheterization which was OK. She reports sleeping on a small bed that is reclined upwards. SHx of right lung surgery. Vital signs while in room HR: 95 bpm, O2 Sat: 98 while on O2, BP: 146/70. - History of Current Complaint Hx Obtained From: Patient, EMS Onset/Duration: Sudden Onset, Lasting Hours, Still Present Timing: Constant Current Severity: None Dyspnea At: Rest Aggrevating Factors: Nothing Alleviating Factors: Nothing Associated Signs & Symptoms: Cough (Nonproductive), Edema - Allergy/Home Medications Allergies/Adverse Reactions: Allergies Allergy/AdvReac Type Severity Reaction Status Date / Time Adhesive Tape Allergy REDDENED Verified 03/18/18 02:12 SKIN codeine Allergy Hives Verified 03/18/18 02:12 iodine Allergy Rash Verified 03/18/18 02:12 Penicillins Allergy Hives Verified 03/18/18 02:12 pineapple Allergy MOUTH SORE Verified 03/18/18 02:12 tiotropium Allergy HOARSENESS, Verified 03/18/18 02:12 [From Spiriva with TICKLE IN HandiHaler] THROAT raisins Allergy GI Upset Uncoded 03/18/18 02:12 Home Medications: Home Medications Albuterol HFA INHALER* [Ventolin HFA Inhaler*] 2 puff INH QID PRN 06/21/18 [ History Confirmed 06/21/18] Aspirin EC TAB* [Ecotrin EC Low Dose 81 MG*] 81 mg PO DAILY 06/21/18 [History Confirmed 06/21/18] Vitamin E CAP* 100 unit PO DAILY 06/21/18 [History Confirmed 06/21/18] PMH/Surg Hx/FS Hx/Imm Hx Endocrine/Hematology History: Denies: Hx Anticoagulant Therapy, Hx Diabetes, Hx Thyroid Disease Cardiovascular History: Reports: Hx Aneurysm - AAA diagnosed 05/28/17, Hx Congestive Heart Failure - LACIX, Hx Hypercholesterolemia, Hx Hypertension, Other Cardiovascular Problems/Disorders - HX OF LUNG SURG 2004 RIGHT SIDE. Respiratory History: Reports: Hx Asthma, Hx Chronic Obstructive Pulmonary Disease (COPD) Denies: Hx Sleep Apnea GI History: Reports: Other GI Disorders - Colon CA, current constipation Denies: Hx Ulcer History: Reports: Other Problems/Disorders - Bladder smaller from colon Denies: Hx Dialysis, Hx Renal Disease Musculoskeletal History: Reports: Hx Arthritis, Hx Back Problems, Hx Orthopedic Injury, Hx Osteoporosis, Hx Tendonitis Denies: Hx Bursitis, Hx Scoliosis Sensory History: Reports: Hx Cataracts, Hx Contacts or Glasses Denies: Hx Glaucoma, Hx Hearing Aid, Hx Hearing Problem, Other Sensory Impairments Opthamlomology History: Reports: Hx Cataracts, Hx Contacts or Glasses Denies: Hx Glaucoma, Other Sensory Impairments Neurological History: Reports: Hx Migraine - childhood migraines resolved at 22 years old, Other Neuro Impairments/Disorders - LEFT HIP SX X 2 MO AGO Denies: Hx Headaches, Hx Nerve Disease - Cancer History Cancer Type, Location and Year: COLON 2007, treated with Chemo Hx Chemotherapy: Yes Hx Radiation Therapy: No - Surgical History Surgery Procedure, Year, and Place: Empyema removal 1983, Broken elbow left repair ORIF (plate) Apr 1999 and later hardware removal Colon cancer dx 2007, colon resection. Hernia repair 2009 Partial L Hip Replacement September 2012 Hx Anesthesia Reactions: No - Immunization History Date of Tetanus Vaccine: utd Date of Influenza Vaccine: fall 2017 Infectious Disease History: No Infectious Disease History: Denies: Hx Hepatitis, Hx Human Immunodeficiency Virus (HIV), History Other Infectious Disease, Traveled Outside the [place] in Last 30 Days - Family History Known Family History: Positive: Cardiac Disease, Respiratory Disease, Other - Aortic aneurysm Negative: Blood Disorder - Social History Alcohol Use: None Alcohol Amount: 1 GLASS OF WINE DAILY Hx Substance Use: No Substance Use Type: Reports: None Hx Tobacco Use: Yes Smoking Status (MU): Former Smoker Amount Used/How Often: 1 1/2 PPD X 30 YEARS Have You Smoked in the Last Year: No Review of Systems Positive: Fever - 100.1 at triage. Negative: Chills Negative: Erythema Negative: Sore Throat Negative: Chest Pain Positive: Shortness Of Breath, Cough Negative: Abdominal Pain, Vomiting, Nausea Negative: dysuria, hematuria Positive: Edema. Negative: Myalgia Negative: Rash Neurological: Negative - dizziness All Other Systems Reviewed And Are Negative: Yes Physical Exam - Summary Physical Exam Summary: Constitutional: Well-developed, Well-nourished, Alert. (-) Distressed Skin: Warm, Dry HENT: Normocephalic; Atraumatic Eyes: Conjunctiva normal Neck: Musculoskeletal ROM normal neck. (-) JVD, (-) Stridor, (-) Tracheal deviation Cardio: Rhythm regular, rate normal, Heart sounds normal; Intact distal pulses; The pedal pulses are 2+ and symmetric. Radial pulses are 2+ and symmetric. (-) Murmur Pulmonary/Chest wall: Tachypnic. (+) Respiratory distress, (+) diffuse wheezes, (-) Rales Abd: Soft, (-) tenderness, (-) Distension, (-) Guarding, (-) Rebound Musculoskeletal: (+) 2+ pitting edema in ankles Lymph: (-) Cervical adenopathy Neuro: Alert, Oriented x3 Psych: Mood and affect Normal Triage Information Reviewed: Yes Vital Signs On Initial Exam: Initial Vitals Temp Pulse Resp BP Pulse Ox 100.1 F 99 40 146/70 97 06/21/18 11:18 06/21/18 11:18 06/21/18 11:18 06/21/18 11:18 06/21/18 11:18 Vital Signs Reviewed: Yes Diagnostics - Vital Signs Vital Signs Temp Pulse Resp BP Pulse Ox 06/21/18 11:18 100.1 F 99 40 146/70 97 - Laboratory Result Diagrams: 06/21/18 11:38 06/21/18 11:38 Lab Statement: Any lab studies that have been ordered have been reviewed, and results considered in the medical decision making process. - Radiology CXR Radiology Interpretation Completed By: Radiologist Summary of Radiographic Findings: Pulmonary edema. Chronic obstructive pulmonary disease. ED physician has reviewed this imaging report. - EKG 11:19 Cardiac Rate: NL - 98 bpm EKG Rhythm: Sinus Rhythm Summary of EKG Findings: EKG at 11:19 showed normal sinus rhythm at 98 bpm, no STEMI. Re-Evaluation - Re-Evaluation First Eval Re-Evaluation Time: 13:39 Change: Improved Comment: Patient is diuresing, feeling better, systolic of 85. Course/Dx - Course Course Of Treatment: A 78 y/o female brought in by [facility] ambulance presents to [facility] with a chief complaint of shortness of breath since 06/20/18. She reports also reports a nonproductive cough and swelling in her legs. She denies chills, erythema (eyes), sore throat, chest pain, abdominal pain, vomiting, nausea dysuria, hematuria, myalgia, rash and dizziness. She is unsure whether she has a fever. At triage she rated her pain as a 0/10 in severity and had a temperature of 100.1. She has a Hx of COPD and per EMS she is on 2-4 L O2 constantly. She denies a Hx of ID or a SHx of stents or bypass. She reports that in April 2018 she had a cardiac catheterization which was OK. She reports sleeping on a small bed that is reclined upwards. SHx of right lung surgery. The physical exam revealed that she had diffuse wheezes, was tachypnic , in respiratory distress and had 2+ pitting edema in her ankles. In the ED course the patient was given Duoneb (Albuterol 2.5Mg/ Ipratropium 0.5Mg) 3 neb INH at 11:25 06/21/18. EKG at 11:19 showed normal sinus rhythm at 98 bpm, no STEMI. CXR impression: Pulmonary edema. Chronic obstructive pulmonary disease. ED physician has reviewed this imaging report. The patient tested negative for influenza A and influenza B. Bloodwork and chemistries obtained. Troponin of 0.03 at 11:38. Case discussed with Dr. Johnson, hospitalist, who accepted the patient for admission. - Diagnoses Provider Diagnoses: CHF exacerbation - Physician Notifications Discussed Care of Patient With: Haim Johnson Time Discussed With Above Provider: 13:47 Instructed by Provider To: Admit As Inpatient - Critical Care Time Critical Care Time: 30-74 min Discharge - Sign-Out/Discharge Documenting (check all that apply): Patient Departure - admit Patient Received Moderate/Deep Sedation with Procedure: No - Discharge Plan Condition: Fair Disposition: ADMITTED TO [facility] - Billing Disposition and Condition Condition: FAIR Disposition: Admitted to [facility] - Attestation Statements Document Initiated by Scribe: Yes Documenting Scribe: Jay Huynh Provider For Whom Scribe is Documenting (Include Credential): Carlos Rhodes MD Scribe Attestation: Jay Gant, scribed for Carlos Rhodes MD on 06/21/18 at 2229. Scribe Documentation Reviewed: Yes Provider Attestation: The documentation as recorded by the Jay veliz accurately reflects the service I personally performed and the decisions made by Carlos hicks MD Status of Scribe Document: Viewed
[2018-06-21 11:50] LABS: ABS Basophils 0 10^3/ul (0-0.2); ABS Eosinophils 0.4 10^3/ul (0-0.6); ABS Lymphocytes 0.6 10^3/ul (1.0-4.8); ABS Monocytes 0.9 10^3/ul (0-0.8); ABS Neutrophils 6.1 10^3/ul (1.5-7.7); ABS Nucleated RBC 0 10^3/ul; Eosinophil % 4.4 %; Hematocrit 36 % (35-47); Hemoglobin 11.7 g/dl (12.0-16.0); Lymphocyte % 7.7 %; Mean Corpuscular HGB Conc 32 g/dl (31-36); Mean Corpuscular Hemoglobin 31 pg (27-31); Mean Corpuscular Volume 95 fL (80-97); Mean Platelet Volume 9.3 fL (7.4-10.4); Nucleated Red Blood Cells % 0; Platelet Count 182 10^3/ul (150-450); Red Blood Count 3.81 10^6/ul (4.00-5.40); Red Cell Distribution Width 14 % (10.5-15)
[2018-06-21 11:59] LABS: Influenza A Molecular NEGATIVE (Negative); Influenza B Molecular NEGATIVE (Negative)
[2018-06-21 12:09] LABS: Albumin 3.8 g/dL (3.2-5.2); Albumin/Globulin Ratio 1.6 (1-3); BUN/Creatinine Ratio 27.8 (8-20); Calcium 8.9 mg/dL (8.6-10.3); EGFR African American 67.2 (>60); EGFR Non-African American 55.5 (>60); Globulin 2.4 g/dL (2-4); Potassium 4.8 mmol/L (3.5-5.0); Total Bilirubin 0.5 mg/dL (0.2-1.0); Total Protein 6.2 g/dL (6.4-8.9)
[2018-06-21 12:11] LABS: Troponin I 0.03 ng/mL (<0.04)
[2018-06-21] MEDS ORDERED: Furosemide IV* 10 MG/ML VIAL (40 MG) IV SLOW PU ONE (12:12)
[2018-06-21] MEDS ORDERED: Nitro 2% OINT* (Nitroglycerin) 1 INCH/PAK PAK TOPICAL ONE (12:12)
--- OUTSIDE RECORDS SUMMARY | 2018-06-21 12:24 | XMS REPORT | Continuity of Care Document ---
:1940 External Reference #:[id number] Author Name Nicole Redmond O.D. Address [address] [place] [address] Care Team Providers Name Role Phone Alexi Kim M.D. Primary Care Physician Unavailable Payers Date Identification Numbers Payment Provider Subscriber Effective: 2005 Policy Number: [id number] Medicare - [facility] Leigh Ann Reyeslavonne PayID: [id number] [address] [place] [address] Policy Number: [id number] [facility] Leigh Ann Rebolledo Almas PayID: [id number] [address] [address] [place] [address] Advance Directives Description No Information Available Problems Date Description Provider Status Onset: Mild chronic obstructive pulmonary Active disease Onset: Essential hypertension Active Onset: History of malignant neoplasm of Active colon Onset: Osteoporosis Active Onset: Hypercholesterolemia Active Onset: 02/18/2016 Vitreous degeneration Nicole Redmond O.D. Active Onset: 02/18/2016 Pseudophakia Nicole Redmond O.D. 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 Lyrica / Active Capsules 25mg Take One Unknown 0000 Capsule By Mouth Every Morning And Take Two Capsules By Mouth Simvastatin / Active Tablets 20mg Take One Unknown 0000 Tablet By Mouth Every Evening Albuterol / Active as needed Unknown 0000 Ascorbic Acid / Active Tablets 1000mg Unknown 0000 Vitamin B / Active Tablets Unknown Complex 0000 Vitamin E / Active Capsules 400Unit Unknown 0000 Calcium 500 + D / Active Tablets 500-125mg- 2 every Unknown 0000 Unit day Colace / Active Capsules 100mg 1 by mouth Unknown 0000 twice a day Prolia / Active Solution 60mg/ml Unknown 0000 Avalide / Active Tablets 150-12.5mg Unknown 0000 Multi For Her / Active Tablets Unknown 50+ 0000 Advil / Active Capsules 200mg as needed Unknown 0000 Ventolin HFA / Active Aerosol 108(90Base Cotton, 0000 ) mcg/Act Angie M.D. Furosemide / Active Tablets 20mg Cotton, 0000 Angie M.D. Anoro Ellipta / Active Aerosol 62.5-25mcg Inhale One Unknown 0000 /Inh puff By Mouth Every Day Irbesartan / Active Tablets 150mg Varn, 0000 Echo HAND STAPLER Ipratropium / Active Solution 0.5-2.5(3) Varn, [place]/Albuter 0000 mg/3ML Echo ol Sulfate HAND STAPLER Fluzone / Active Mylene 0.5ml Unknown High-Dose 0000 Claritin-D 12 / Active Tablets ER 5-120mg as needed Unknown Hour 0000 12HR Salsalate / Active Tablets 500mg Unknown 0000 Lorazepam / Active Tablets 0.5mg Varn, 0000 Echo HAND STAPLER Methocarbamol / Active Tablets 500mg Unknown 0000 Irbesartan-Hydr / Hx Tablets 150-12.5mg Unknown ochlorothiazide - 2018 Symbicort 00/00/ Hx Aerosol 160-4.5mcg Inhale Two Unknown 0000 - /Act Puffs By 2018 Twice A Day Tylenol Extra / Hx Tablets 500mg 2 by mouth Unknown Strength 0000 - as needed 2016 Aspirin Ec / Hx Tablets DR 81mg twice a Unknown 0000 - day by 2016 Irbesartan / Hx Tablets 300mg Take One Unknown 0000 - Tablet By 2018 Every Day Immunizations Description No Information Available Vital Signs Description No Information Available Results Description No Information Available Procedures Date Code Description Status 02/23/2017 46716 Determination Of Refractive State Completed 02/23/2017 57273 Est Patient Comprehensive Exam Completed 02/18/2016 80155 Est Patient Comprehensive Exam Completed 02/18/2016 606 CL Remover Completed 05/28/2014 88931 Remove Secondary Cataract, Laser (Yag) Completed 05/25/2014 27774 Est Patient Intermediate Exam Completed 05/25/2014 40626 Remove Secondary Cataract, Laser (Yag) Completed 05/05/2014 30367 Est Patient Comprehensive Exam Completed 02/20/2012 37391 Est Patient Comprehensive Exam Completed 01/25/2010 82785 Scanning Laser W/Interp And Report Completed 01/13/2010 45378 Extracapsular Cataract Extraction W/Intraocular Lens Completed Encounters Description No Information Available Plan of Treatment 05/31/2018 - Nicole Redmond O.D.H43.813 Vitreous degeneration, bilateralComments:You have a Posterior Vitreous Detachment. If you have any changes in your floaters or flashing lights, please contact this office.Follow up:1 Year Follow Up You can expect to have your eyes dilated at your next visit. If Dr. Redmond orders any additional testing, it may require extra time. We recommend that you bring sunglasses, as dilation drops often make you light sensitive until they wear off. We always recommend you bring someone to drive you home if you are uncomfortable driving with your eyes dilated. If you have any questions before your next visit, feel free to call our office at [phone].Z96.1 Presence of intraocular lensComments:The artificial lens implants in both eyes appear to be stable at this time.
[2018-06-21] MEDS ORDERED: Albuterol 2.5 MG/3 ML NEB.SOL* (0.083%) INH PRN (15:01)
[2018-06-21] MEDS ORDERED: Benzonatate CAP* 100 MG PO PRN (15:01)
[2018-06-21] MEDS ORDERED: Acetaminophen TAB* 325 MG PO PRN (15:01)
[2018-06-21] MEDS ORDERED: Ondansetron INJ* 2 MG/ML VIAL IV PRN (15:01)
[2018-06-21] MEDS ORDERED: cefTRIAXone(*) 1 GM in NS 0.9% 50 ML* 50 ML IVPB SCH (15:03)
[2018-06-21] MEDS ORDERED: Cetirizine* 10 MG TAB PO PRN (15:06)
[2018-06-21] MEDS ORDERED: Senna TAB PO PRN (15:06)
[2018-06-21] MEDS ORDERED: DOXYcycline IV* 100 MG x ONCE IVPB ONE ×2 (15:30)
[2018-06-21] MEDS ORDERED: cefTRIAXone(*) 1 GM in NS 0.9% 50 ML* 50 ML IVPB ONE (16:00)
[2018-06-21] MEDS ORDERED: Nitro Patch/OINT Remove TOPICAL SCH (16:00)
[2018-06-21] MEDS ORDERED: Perflutren Lipid Microsphere* 3 ML VIAL ONE (16:25)
--- NOTE | 2018-06-21 18:15 | HP ---
CC: Echo Rivero NP * ADMISSION HISTORY AND PHYSICAL: DATE OF ADMISSION: 06/21/18 PRIMARY CARE PROVIDER: Echo Rivero NP MY ATTENDING WHILE IN THE HOSPITAL: Dr. Johnson.* (DICTATED BY MICHELLE ROMERO) CHIEF COMPLAINT: Shortness of breath x24 hours. HISTORY OF PRESENT ILLNESS: Ms. Coburn is a 78-year-old female with past medical history significant for COPD with chronic hypoxic respiratory failure, on 4 L of oxygen at all times at home, as well as newly diagnosed heart failure with reduced ejection fraction and negative cardiac catheterization in April of this year, who presents to the emergency department after approximately 24 hours ago she began feeling much more short of breath with associated cough with minor sputum production that she is unable to assess the color of. The patient denies chest pain, nausea, vomiting, or diaphoresis. The patient has no decreased exercise tolerance. The patient has baseline orthopnea. The patient has been having increased bilateral swelling in her legs over the past several days. The patient states that she has been eating pot roast, which she seasoned with a seasoning blend. The patient states she tries to monitor the salt in her diet, but when asked about high-salt foods like potato chips and canned soup, she stated that she does routinely eat these. The patient does not monitor her weight at home. The patient notes some wheezing that was intermittently responsive to her home inhalers, which she has been taking at her maximum approximately 4 times a day. The patient's daughter recently had a respiratory infection and she was exposed to her significantly. The patient has been taking Lasix at home 20 mg daily. The patient had no exposure to the flu. The patient had slight lightheadedness on standing, but states this happens relatively frequently. The patient in the emergency department was needing oxygen up to 5 L via OxyMask, up from her 4 L nasal cannula at all times , as well as tachycardia and slightly elevated temperature at 100.1 degrees Fahrenheit. The patient was given 80 mg IV Lasix, 3 breathing treatments, and a nitroglycerin patch while in the emergency department and we were asked to evaluate the patient for admission to the hospital for acute respiratory failure. PAST MEDICAL HISTORY: COPD; chronic hypoxic respiratory failure, on 4 L of nasal oxygen at all times; heart failure with reduced ejection fraction; coronary artery disease, noncritical stenosis; hypertension; abdominal aortic aneurysm; hyperlipidemia; peripheral neuropathy; osteoporosis; history of colon cancer, status post resection and chemotherapy. PAST SURGICAL HISTORY: Colon resection in 2007. MEDICATIONS AT HOME: 1. Vitamin B complex 1 tab p.o. daily. 2. Vitamin C 1000 mg p.o. daily. 3. Docusate 100 mg p.o. daily. 4. Multivitamin 1 tab p.o. daily. 5. Simvastatin 20 mg p.o. at bedtime. 6. Irbesartan 150 mg p.o. daily. 7. DuoNeb 1 nebulizer inhalation 4 times a day as needed. 8. Calcium carbonate/vitamin D3 one tab p.o. daily. 9. Senna tab 1 tab p.o. daily as needed. 10. Lorazepam 0.5 mg p.o. q.6 hours as needed. 11. Furosemide 20 mg p.o. daily. 12. Loratadine 10 mg p.o. daily. 13. Ibuprofen 400 mg p.o. q.6 hours as needed. 14. Disalcid 500 mg p.o. b.i.d. as needed. 15. Guaifenesin/pseudoephedrine 1 tab p.o. b.i.d. as needed. 16. Vitamin D 400 units p.o. daily. 17. Symbicort 2 puffs inhalation b.i.d. 18. Pregabalin 50 mg p.o. at bedtime. 19. Pregabalin 25 mg p.o. daily. 20. Prolia 60 mg subcutaneous monthly. 21. Vitamin E 100 units p.o. daily. 22. Aspirin 81 mg p.o. daily. 23. Albuterol 2 puffs inhalation 4 times a day as needed. ALLERGIES: ADHESIVE TAPE, CODEINE, IODINE, PENICILLINS, PINEAPPLE, RAISINS, TIOTROPIUM. FAMILY HISTORY: The patient's mother of a ruptured aneurysm. The patient' s father of pancreatic cancer. The patient had a sister who of heart failure. SOCIAL HISTORY: The patient quit smoking in 2004, but smoked heavily for approximately 30 years before that. The patient denies alcohol or drug abuse. 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 The patient is and has 2 children. The patient's surrogate decision maker will be her daughter, Lily Monroe. REVIEW OF SYSTEMS: A 14-point review of systems was reviewed and is negative except as above in the HPI. PHYSICAL EXAMINATION GENERAL: The patient is a 78-year-old female, who appears stated age and sitting comfortably in bed, in no acute distress. VITAL SIGNS: Temperature 100.1, pulse rate 89, respiratory rate 20, oxygen saturation 91% on 5 L OxyMask, blood pressure 85/60. HEENT: Head: Normocephalic, atraumatic. Sclerae anicteric. No conjunctival injection. Nasal mucosa moist. Oral mucosa moist. No pharyngeal erythema, discharge, or exudate. NECK: Supple, nontender. No lymphadenopathy. No carotid bruits auscultated. No JVD. RESPIRATORY: Wheezing throughout. Good air exchange bilaterally. Normal respiratory effort and expansion. No other adventitious lung sounds. CARDIAC: Tachycardic. No clicks, murmurs, gallops, or rubs. Pulses are 2+ in the bilateral dorsalis pedis, posterior tibialis, and radial areas. 3+ pitting edema in bilateral lower extremities up to the knee. ABDOMEN: Soft, nontender, nondistended. Bowel sounds present and normoactive in all 4 quadrants. No hepatosplenomegaly. No abdominal bruits auscultated. No hepatojugular reflux. GENITOURINARY: No suprapubic or CVA tenderness. NEUROLOGIC: Cranial nerves II through XII intact. No focal deficits. Alert and oriented x3. PSYCHIATRIC: Pleasant and cooperative. SKIN: Clean, dry, and intact. Slight erythema, bilateral lower extremities. No other rash or ulcers. DIAGNOSTIC STUDIES/LAB DATA: White blood cell count 8.0, hemoglobin 11.7, platelet count 182. Sodium 137, potassium 4.8, chloride 100, carbon dioxide 33 , anion gap 4, BUN 27, creatinine 0.97, glucose 95, lactic acid 1.6, calcium 8.9. Bilirubin 0.5, AST 23, ALT 13, alkaline phosphatase 48. Troponin I of 0.03, BNP 321. Protein 6.2, albumin 3.8, globulin 2.4. Influenza A and B negative. Studies: Electrocardiogram shows sinus tachycardia, left axis deviation, PVCs, poor quality study. No obvious ST segment elevation, depression, or pathologic T- wave inversion. Left atrial enlargement. No ventricular hypertrophy. Compared to previous exam, there are no significant changes. Chest x-ray read as pulmonary edema, chronic obstructive pulmonary disease, cardiomegaly, pleural effusions. ASSESSMENT AND PLAN: Impression: Ms. Coburn is a 78-year-old female with past medical history significant for chronic obstructive pulmonary disease with chronic hypoxic respiratory failure and newly diagnosed heart failure with reduced ejection fraction attributed to her severe lung disease, who presents to the emergency department with lower extremity edema, worsening shortness of breath, tachycardia, and fevers with a concern for concomitant chronic obstructive pulmonary disease and congestive heart failure exacerbation with acute on chronic hypoxic respiratory failure. The patient admitted to the hospital for close monitoring and medical therapy. 1. Acute hypoxic respiratory failure. The patient's respiratory failure is likely multifactorial. The patient has chronic hypoxic respiratory failure, needing 4 L of oxygen by nasal cannula. We will order an ABG at this time to assess the patient's level of hypercarbia. The patient is currently saturating well on 5 L of oxygen via OxyMask. The patient received 80 mg of Lasix and 3 albuterol nebulizers while in the emergency department with significant improvement in her respiratory exam. The patient is moving air well. The patient was given a nitro patch for preload reduction while in the emergency department, but her blood pressure dropped low and this was discontinued. The patient will be monitored closely with the discontinuation of this. The patient has no chest pain. The patient has a negative troponin. We will repeat the patient's echocardiogram to assess for further deterioration or possible recovery in her ejection fraction. The patient will be given Lasix 40 mg daily and will not receive an additional dosing at this time due to low blood pressure. The patient additionally will be started on prednisone 60 mg daily. Given the patient's concomitant congestive heart failure, the steroid dosing should likely be minimized and prolonged tapers should be avoided. The patient has a slightly elevated temperature and tachycardia as well as exposure to a family member with a recent respiratory infection. The patient had a negative chest x-ray. This will be repeated in the morning. The patient will be started on antibiotics for community-acquired pneumonia. If the patient's repeat chest x-ray in the morning is negative, the patient's antibiotics may be narrowed to benefit chronic obstructive pulmonary disease exacerbation. The patient will be continued on nebulizers q.4 hours while awake. It is unclear currently what the patient's predominant respiratory complaint is as the patient is treated concurrently for these diseases. The treatment for each may be adjusted based on her clinical progression. The patient is tachycardic, borderline febrile likely representing viral infection. The patient does not have a white count. The patient is also hypotensive; however, the patient is actively fluid overloaded and we will not give saline bolus at this time, just discontinue antihypertensive treatments. The patient did not have studies to rule in or rule out pulmonary embolism while in the emergency department given more likely options for the patient's respiratory failure and tachycardia. The patient has no chest pain, no signs of right-sided strain on EKG. The patient' s Wells score is 0; however, if the patient is persistently hypoxic or tachycardic despite giving treatments, ruling in or ruling out of pulmonary embolism may be indicated. 2. Hypertension. The patient is currently hypotensive. Continue the patient' s irbesartan with hold parameters. 3. Abdominal aortic aneurysm. Avoid significant fluctuations in the patient's blood pressure. This has been stable previously. 4. Hyperlipidemia. Continue the patient's statin. 5. Peripheral neuropathy. Continue the patient's pregabalin. 6. DVT prophylaxis: The patient will have heparin subcu. 7. FEN: The patient will have a heart healthy diet without caffeine. The patient is being diuresed and we will not proceed with IV fluids at this time. 8. Disposition: The patient is admitted inpatient with an estimated length of stay greater than 2 midnights. TIME SPENT: Approximately 60 minutes spent on the admission of this patient, 30 of which was spent [id number] with the patient obtaining history and physical and discussing treatment plan. This plan was discussed with my attending, Dr. Johnson, and he is in agreement. MICHELLE ROMERO [id number]/[facility] #: [id number] EULALIO
[2018-06-21] MEDS ORDERED: Nitro Patch/OINT Remove PATCH OFF ONE (19:00)
[2018-06-21] MEDS ORDERED: Albuterol/Ipratropium NEB.SOL* Albuterol 2.5 MG/Ipratropium 0.5 MG 3 ML INH SCH (19:00)
[2018-06-21] MEDS: cefTRIAXone(*) 1 GM in NS 0.9% 50 ML* 50 ML IVPB SCH (19:34)
--- NOTE | 2018-06-21 19:44 | ECHO ---
Patient: FRANCISCA ARGUELLES [facility] Rec#: [id number] : 1940 Date: 06/21/2018 Age: 78y Weight: kg / NaN lbs Sex: F Room#: ED 11 Admit Date#: 06/21/2018 Type: Inpatient Referring: Pradip Forrester Reading: Rosas Benson MD Foam Gun Operator: Yin Chu RN RD CC: Echo Rivero NP Transthoracic Echocardiogram Indication: CHF BP: 110/56 HR: 84 Rhythm: NSR Findings History: CHF, aortic valve stenosis, HTN, severe COPD, AAA, former smoker, obesity Technical Comments: The study is technically limited due to poor acoustic windows. The study is technically limited due to the patient's history of COPD. Left Ventricle: The left ventricular chamber size is normal. Mild concentric left ventricular hypertrophy is observed. There is global hypokinesis of the left ventricle with minor regional variation.The inferior inferoseptal segments may be relatively more impaired. There is moderately decreased left ventricular systolic function. The estimated ejection fraction is 40-45%. The assessment of diastolic function is non-diagnostic. Left Atrium: The left atrium is moderately dilated. Right Ventricle: The right ventricle wall thickness is mildly increased. The right ventricular cavity size is normal. The right ventricular global systolic function is low normal. Right Atrium: The right atrium is mild to moderately dilated. Aortic Valve: The aortic valve leaflets are moderately thickened. Systolic excursion of the aortic valve cusps is reduced. There is no evidence of aortic regurgitation. There is moderate to severe aortic stenosis.It appears more severe by 2d. The continuity equation and mean gradient may underestimate the degree of stenosis due to technical issues. The mean gradient of the aortic valve is 27 mmHg. The peak instantaneous gradient of the aortic valve is 42 mmHg. The aortic valve area, by peak velocities, is calculated at 1.4 cm2. The aortic valve area, by VTI's, is calculated at 1.4 cm2. The aortic valve area, by planimetry, is calculated at 0.88 cm2. Mitral Valve: There is mitral annular calcification. The mitral valve leaflets are mildly thickened. There is mild mitral regurgitation. There is no evidence of mitral stenosis. Tricuspid Valve: The tricuspid valve leaflets are normal. There is trace tricuspid regurgitation. Unable to estimate the right ventricular systolic pressure. There is no tricuspid stenosis. Pulmonic Valve: The pulmonic valve structure is not well visualized. Pericardium: There is no significant pericardial effusion. A pericardial fat pad is visualized. Aorta: There is no dilatation of the ascending aorta. There is no dilatation of the aortic arch. There is no dilation of the aortic root. Pulmonary Artery: The main pulmonary artery is not well visualized. Venous: The venous system is not well visualized. The inferior vena cava is not visualized. Contrast: Definity was used to optimize study. A total of 3 ml of diluted Definity was given IV to enhance endocardial border definition. Conclusions Mild concentric left ventricular hypertrophy is observed. There is global hypokinesis of the left ventricle with minor regional variation.The inferior inferoseptal segments may be relatively more impaired. There is moderately decreased left ventricular systolic function. The estimated ejection fraction is 40-45%. The left atrium is moderately dilated. The right atrium is mild to moderately dilated. The right ventricle wall thickness is mildly increased. The right ventricular global systolic function is low normal. There is moderate to severe aortic stenosis. The appears more severe by 2d. The continuity equation and mean gradient may underestimate the degree of stenosis due to technical issues. There is mild mitral regurgitation. There is trace tricuspid regurgitation. The EF has improved from 25-30% in03/2018. The aortic stenosis was calculated at 1.1 cm2 last time. Measurements Name Value Normal Range RVDdMajor (2D) 3.8 cm (2.2 - 4.4) RVAW (2D) 0.7 cm (0.2 - 0.5) RAd ISD 4CH 5.8 cm (3.4 - 4.9) IVSd (2D) 1.2 cm (0.6 - 1) LVPWd (2D) 1.2 cm (0.6 - 1) LVIDd (2D) 4.3 cm (3.6 - 5.4) LVIDs (2D) 3.5 cm - LV FS (2D) 19 % (25 - 45) Aortic Annulus 2.2 cm (1.4 - 2.6) Ao root diameter (2D) 2.8 cm (2.1 - 3.5) Ascending Ao 3.3 cm (2.1 - 3.4) Aortic arch 2.5 cm (1.8 - 3.4) LA dimension (AP) 2D 4.1 cm (2.3 - 3.8) LAd ISD 4CH 6.6 cm (2.9 - 5.3) LA ISD 4CH W 5.1 cm (2.5 - 4.5) Name Value Normal Range LA ESV BP (A/L) index 46.6 ml/m2 - Name Value Normal Range MV E-wave Vmax 1.2 m/sec - MV deceleration time 211 msec - MV A-wave Vmax 1.3 m/sec - MV E:A ratio 1 ratio - LV septal e' Vmax 0.04 m/sec - LV lateral e' Vmax 0.1 m/sec - LV E:e' septal ratio 30 ratio - LV E:e' lateral ratio 12 ratio - Name Value Normal Range AV Vmax 3.2 m/sec - AV VTI 73.2 cm - AV peak gradient 42 mmHg - AV mean gradient 27 mmHg - LVOT diameter 2.1 cm - LVOT Vmax 1.3 m/sec - LVOT VTI 29.1 cm - LVOT peak gradient 7 mmHg - LVOT mean gradient 5 mmHg - DOI (VTI) 0.4 ratio - DOI (Vmax) 0.41 ratio - SHADIA (planimetry) 0.88 cm2 - SHADIA (continuity Vmax) 1.4 cm2 - SHADIA (continuity VTI) 1.4 cm2 - CHRISTIAN Vmax 0.86 m/sec - Name Value Normal Range PV Vmax 1.3 m/sec -
[2018-06-21] MEDS: Mometasone/Formoter 200/5 MDI INH SCH (19:50)
[2018-06-21] MEDS: Atorvastatin* 10 MG TAB PO SCH (20:46)
[2018-06-21] MEDS: guaiFENesin ER TAB 600 MG PO SCH (20:46)
[2018-06-21] MEDS: Pregabalin CAP(*) 50 MG PO SCH (20:47)
[2018-06-21 21:26] LABS: Urine Appearance Clear; Urine Bilirubin Negative (Negative); Urine Blood Negative (Negative); Urine Color Yellow; Urine Glucose Negative (Negative); Urine Ketones Negative (Negative); Urine Nitrite Negative (Negative); Urine Protein Negative (Negative); Urine Specific Gravity 1.009 (1.010-1.030); Urine Urobilinogen Negative (Negative)
[2018-06-21] MEDS: Heparin VIAL(*) 5000 UNITS/ML VIAL (FIVE THOUSAND) SUBCUT SCH (21:48)
[2018-06-22] MEDS: Albuterol/Ipratropium NEB.SOL* Albuterol 2.5 MG/Ipratropium 0.5 MG 3 ML INH SCH ×3 (01:45→13:42)
[2018-06-22] MEDS: DOXYcycline IV* 100 MG in NS 0.9% 250 ML* 250 ML IVPB SCH ×2 (04:33→16:04)
[2018-06-22] MEDS: Heparin VIAL(*) 5000 UNITS/ML VIAL (FIVE THOUSAND) SUBCUT SCH ×2 (05:50→12:53)
[2018-06-22] MEDS: Mometasone/Formoter 200/5 MDI INH SCH ×3 (06:08→19:36)
[2018-06-22] MEDS: LORazepam TAB(*) 0.5 MG PO PRN ×2 (06:51→12:51)
[2018-06-22 07:27] LABS: ABS Basophils 0 10^3/ul (0-0.2); ABS Eosinophils 0.4 10^3/ul (0-0.6); ABS Lymphocytes 0.8 10^3/ul (1.0-4.8); ABS Neutrophils 4.9 10^3/ul (1.5-7.7); ABS Nucleated RBC 0 10^3/ul; Eosinophil % 5.8 %; Hematocrit 36 % (35-47); Hemoglobin 11.8 g/dl (12.0-16.0); Lymphocyte % 11.9 %; Mean Corpuscular HGB Conc 33 g/dl (31-36); Mean Corpuscular Hemoglobin 31 pg (27-31); Mean Corpuscular Volume 94 fL (80-97); Mean Platelet Volume 9.4 fL (7.4-10.4); Nucleated Red Blood Cells % 0; Platelet Count 183 10^3/ul (150-450); Red Blood Count 3.78 10^6/ul (4.00-5.40); Red Cell Distribution Width 14 % (10.5-15); White Blood Count 7.1 10^3/ul (3.5-10.8)
[2018-06-22 08:19] LABS: BUN/Creatinine Ratio 25.7 (8-20); Calcium 8.8 mg/dL (8.6-10.3); EGFR African American 64.1 (>60); Magnesium 1.9 mg/dL (1.9-2.7); Potassium 4.3 mmol/L (3.5-5.0)
[2018-06-22] MEDS: Cholecalciferol TAB* 400 UNIT PO SCH (08:53)
[2018-06-22] MEDS: Ascorbic Acid TAB* 500 MG PO SCH (08:53)
[2018-06-22] MEDS: Pregabalin CAP(*) 25 MG PO SCH (08:53)
[2018-06-22] MEDS: guaiFENesin ER TAB 600 MG PO SCH ×2 (08:53→20:08)
[2018-06-22] MEDS: Multivitamins/Minerals TAB PO SCH (08:54)
[2018-06-22] MEDS: Losartan TAB* 25 MG PO SCH (08:54)
[2018-06-22] MEDS: Aspirin EC TAB* 81 MG TAB.EC PO SCH (08:54)
[2018-06-22] MEDS: Furosemide IV* 10 MG/ML VIAL (40 MG) IV SLOW PU SCH (08:55)
[2018-06-22] MEDS ORDERED: Docusate CAP* 100 MG PO SCH (09:00)
[2018-06-22] MEDS ORDERED: predniSONE TAB* 20 MG PO SCH (09:00)
--- NOTE | 2018-06-22 16:14 | PN ---
Subjective Interval History: Pt reports improvement in dyspnea at rest since yesterday, however she became very SOB when walking to bathroom with PT. Denies fevers or chils. Still with cough but not much sputum produced. Reports anxiety. Objective Active Medications: Acetaminophen (Tylenol Tab*) 650 mg PO Q6H PRN PRN Reason: FEVER/PAIN Albuterol (Ventolin 2.5 Mg/3 Ml Neb.Lisandra*) 2.5 mg INH Q2H PRN PRN Reason: SOB/WHEEZING Ascorbic Acid (Vitamin C Tab*) 1,000 mg PO DAILY [facility] Last Admin: 06/22/18 08:53 Dose: 1,000 mg Aspirin (Aspirin Ec Tab*) 81 mg PO DAILY [facility] Last Admin: 06/22/18 08:54 Dose: 81 mg Atorvastatin Calcium (Lipitor*) 10 mg PO BEDTIME [facility] Last Admin: 06/21/18 20:46 Dose: 10 mg Benzonatate (Tessalon Cap*) 100 mg PO BID PRN PRN Reason: COUGH Cetirizine HCl (Zyrtec*) 10 mg PO DAILY PRN PRN Reason: Allergy Symptoms Cholecalciferol (Vitamin D Tab*) 400 unit PO DAILY [facility] Last Admin: 06/22/18 08:53 Dose: 400 unit Enoxaparin Sodium (Lovenox(*)) 40 mg SUBCUT BEDTIME [facility] Furosemide (Lasix Iv*) 40 mg IV SLOW PU DAILY [facility] Last Admin: 06/22/18 08:55 Dose: 40 mg Guaifenesin (Mucinex*) 1,200 mg PO BID [facility] Last Admin: 06/22/18 08:53 Dose: 1,200 mg Doxycycline Hyclate 100 mg/ (Sodium Chloride) 250 mls @ 250 mls/hr IVPB Q12H [facility] Last Admin: 06/22/18 16:04 Dose: 250 mls/hr Ceftriaxone Sodium 1 gm/ (Sodium Chloride) 50 mls @ 200 mls/hr IVPB 1930 [facility] Last Admin: 06/21/18 19:34 Dose: 200 mls/hr Lorazepam (Ativan Tab(*)) 0.5 mg PO Q6H PRN PRN Reason: ANXIETY Last Admin: 06/22/18 12:51 Dose: 0.5 mg Losartan Potassium (Cozaar Tab*) 50 mg PO DAILY [facility] Last Admin: 06/22/18 08:54 Dose: 50 mg Mometasone Furoate/Formoterol Fumar (Dulera 200/5 Mdi*) 2 puff INH BID [facility]; Protocol Last Admin: 06/22/18 08:05 Dose: Not Given Multivitamins/Minerals (Theragran/Minerals Tab*) 1 tab PO DAILY [facility] Last Admin: 06/22/18 08:54 Dose: 1 tab Ondansetron HCl (Zofran Inj*) 4 mg IV Q6H PRN PRN Reason: NAUSEA Prednisone (Deltasone Tab*) 40 mg PO DAILY [facility] Stop: 06/25/18 12:00 Pregabalin (Lyrica Cap(*)) 25 mg PO DAILY [facility] Last Admin: 06/22/18 08:53 Dose: 25 mg Pregabalin (Lyrica Cap(*)) 50 mg PO BEDTIME [facility] Last Admin: 06/21/18 20:47 Dose: 50 mg Senna (Senokot Tab*) 1 tab PO DAILY PRN PRN Reason: CONSTIPATION Vital Signs - 8 hr 06/22/18 06/22/18 06/22/18 08:00 08:53 08:59 Temperature Pulse Rate Respiratory 22 22 22 Rate Blood Pressure (mmHg) O2 Sat by Pulse Oximetry 06/22/18 06/22/18 06/22/18 11:40 12:51 13:43 Temperature 97.8 F Pulse Rate 77 84 Respiratory 20 22 18 Rate Blood Pressure 146/74 (mmHg) O2 Sat by Pulse 95 99 Oximetry Oxygen Devices in Use Now: Nasal Cannula, OxyMask Appearance: some increased work of breathing at rest; severe SOB after ambulation; able to speak in full sentences Ears/Nose/Mouth/Throat: Mucous Membranes Moist Neck: - - unable to appreciate JVP Respiratory: - - diffuse mild expiratory wheeze, crackles at bases Cardiovascular: RRR Abdominal: - - obese, nontender Extremities: - - trace edema at ankles Result Diagrams: 06/22/18 06:59 06/22/18 06:59 Microbiology and Other Data: Microbiology 06/21/18 11:28 Aerobic Blood Culture - Preliminary Blood Venous No Growth Day 1 Anaerobic Blood Culture - Preliminary No Growth Day 1 06/21/18 11:38 Aerobic Blood Culture - Preliminary Blood Venous No Growth Day 1 Anaerobic Blood Culture - Preliminary No Growth Day 1 06/21/18 11:38 Influenza Types A,B Antigen - Final Nasal Specimen received for Influenza A/B Molecular testing Assess/Plan/Problems-Billing 78W with COPD on 4L home O2, HFrEF 40-45%, AAA, colon cancer s/p resection/chemo , presents with subacute progressive dyspnea, productive cough, and LE edema. She was found with hypoxia and temperature max 100.1 F, no leukocytosis or left shift, BNP 321 (obese, no baseline), and CXR with pulm edema. - Patient Problems (1) COPD exacerbation Comment: Pt with recent sick contact (viral URI). Currently low concern for bacterial infection. - on CTX (06/21- ) and doxy IV (06/22 - ); bibasilar airspace consolidations likely not pneumonia - consider DC abx tomorrow if cultures negative (procalcitonin ordered as well) - cont nebs prn with flutter valve - pulm PT with respiratory therapiest - ordered for Dulera in place of home Symbicort - cont prednisone burst, decreased to 40mg daily (2) Congestive heart failure (CHF) Comment: Previous EF 25-30% (Mar 2018), now 40-45%. Pt with pulm edema on CXR but trace LE edema. - cont furosemide 40mg IV daily - improvement on CXR - on ARB, unclear why not on beta-pedro?? - on ASA and statin - pt with nonobstructive CAD on cath 04/2018 (3) HTN (hypertension) Comment: - cont formulary ARB (4) Obesity (BMI 30-39.9) Comment: BMI 37.6. (5) Anxiety Comment: cont home lorazepam prns and monitor respiratory status closely (6) Neuropathy Comment: cont home Lyrica (7) DVT prophylaxis Comment: switch to lovenox Status and Disposition: Has home O2. Should f/u with Pulm clinic. Unclear if previously evaluated for [facility] team.
[2018-06-22] MEDS: cefTRIAXone(*) 1 GM in NS 0.9% 50 ML* 50 ML IVPB SCH (19:39)
[2018-06-22] MEDS: Pregabalin CAP(*) 50 MG PO SCH (20:07)
[2018-06-22] MEDS: Atorvastatin* 10 MG TAB PO SCH (20:07)
[2018-06-22] MEDS: Enoxaparin(*) 40 MG/0.4 ML SYR SUBCUT SCH (20:09)
--- NOTE | 2018-06-22 21:58 | CONS ---
PULMONARY CONSULTATION REPORT: DATE OF CONSULT: 06/22/18 REQUESTED BY: MICHELLE Wallace. REASON FOR CONSULTATION: Evaluation of shortness of breath. HISTORY OF PRESENT ILLNESS: The patient is a 78-year-old female known to me from prior outpatient evaluation with a history of COPD, recently diagnosed with severe systolic heart failure with normal cardiac cath with no obstruction , has been having progressively worsening respiratory status and complicated course recently. The patient also has been requiring increasing O2 supplementation at baseline. The patient comes in for evaluation of worsening shortness of breath over the past 2 days. The patient has a history of systolic heart failure, has not been compliant with dietary interventions and has gained weight. She has been compliant with Lasix as prescribed. The patient reports sick contacts, but no reported flu exposure. The patient reports low-grade fevers at home. The patient was found to be significantly tachypneic and hypoxemic on 5 L that she is at home. She also had low-grade fever at 100.1. The patient received 80 mg of IV Lasix and 3 breathing treatment while in the emergency room. She was admitted for further evaluation of acute hypoxemic respiratory failure. The patient reports slight improvement in shortness breath; however, continues to have significant shortness of breath even with minimal exertion. She has been currently requiring O2 supplementation with 6 L per minute, saturating 95%. Chest x-ray on admission showed evidence of hyperinflation along with evidence of fluid overload. Repeat chest x-ray from this morning was reviewed, which showed interval improvement in aeration and improvement in pulmonary edema. Basilar atelectasis is noted. The patient did not have any white count or left shift. Influenza testing has been negative. Bicarb is elevated on her labs. She definitely has worsened bicarb compared to prior values which could be from the diuresis. Blood test was not obtained. Echocardiogram revealed evidence of improvement of systolic heart failure with EF now improved to 40% to 45%. Aortic stenosis has worsened since last echocardiogram, now considered to be more severe. PAST MEDICAL HISTORY: 1. COPD. 2. Chronic hypoxemic respiratory respiratory failure, on 4 L O2. 3. Systolic CHF with nonobstructive coronaries. 4. Hypertension. 5. Abdominal aortic aneurysm. 6. Dyslipidemia. 7. Peripheral neuropathy. 8. Osteoporosis. 9. History of colon cancer, postresection and chemo. PAST SURGICAL HISTORY: Colon resection in 2007. MEDICATIONS AT HOME: 1. Vitamin B and vitamin C. 2. Docusate. 3. Multivitamin. 4. Simvastatin. 5. Irbesartan. 6. DuoNeb. 7. Calcium. 8. Senna. 9. Ativan. 10. Furosemide 20. 11. Loratadine. 12. Ibuprofen. 13. Disalcid. 14. Guaifenesin. 15. Vitamin D. 16. Symbicort. 17. Pregabalin. 18. Prolia. 19. Vitamin E. 20. Aspirin. 21. Albuterol. ALLERGIES: ADHESIVE TAPE, CODEINE, IODINE, PENICILLIN, pineapple, raisins, TIOTROPIUM. FAMILY HISTORY: Mother of ruptured aneurysm. Father has pancreatic cancer. Sister of heart failure. SOCIAL HISTORY: Quit smoking in 2004. Heavy smoking prior to that. No alcohol or drug abuse. REVIEW OF SYSTEMS: All 14 systems reviewed and as per HPI. PHYSICAL EXAMINATION: The patient is sitting up in bed, in no apparent distress. Vital Signs: Temperature 97.8, pulse 77 beats per minute, respiratory rate 20 per minute, O2 sat 95% on 6 L, blood pressure 146/74. HEENT : Pupils equal, reactive to light. Mucous membranes moist. Lungs: Diminished air entry bilaterally, wheezing on auscultation. Cardiovascular: S1 , S2 present, regular. Lower extremity edema. Abdomen: Soft, nontender, nondistended, bowel sounds present. Extremities: Normal range of motion. Neurologic: Alert, awake, oriented x3. No focal deficits. Skin: No rash. DIAGNOSTIC STUDIES/LAB DATA: WBC count 7.1, hemoglobin 11.8, hematocrit 36, platelet count 183. Sodium 138, potassium 4.3, chloride 100, bicarb 33, BUN 26 , creatinine 1.01. Lactate within normal limits. Troponins within normal limits. BNP elevated at 321. Influenza A and B negative. Chest x-ray, as described above in HPI. Echocardiogram, as described above. IMPRESSION AND RECOMMENDATIONS: 78-year-old female with chronic hypoxemic, hypercapnic respiratory failure; chronic obstructive pulmonary disease, O2 dependent on 4 L at home; systolic congestive heart failure and cardiac arrhythmia, attributed to underlying pulmonary pathology with a history of alpha -1 MZ phenotype with progressively worsening course, recently admitted with worsening shortness of breath, found to be in acute congestive heart failure and chronic obstructive pulmonary disease exacerbation. Patient reports recent sik contacts, has also not been compliant with low sodium diet. The patient responded slightly to diuresis, repeat x- ray with radiologic improvement. Acute congestive heart failure, likely secondary to dietary noncompliance. She also has severe aortic stenosis which is also probably attributing to her symptoms and hypoxemia. The patient also with wheezing and congestion with acute chronic obstructive pulmonary disease exacerbation. The patient is receiving bronchodilators with improvements. Titrate FiO2 as tolerated to maintain oxygen saturations around 92%. The patient would benefit from noninvasive; however, has declined multiple times. With significant cardiac and pulmonary comorbidities and recent progressive deterioration, palliative care approach would be optimal. The patient during her last admission has declined palliative care approach. She would be a candidate for the chronic obstructive pulmonary disease private pilot program; however, she is not in favor of it now. Will follow up as outpatient and we will address the palliative care approach again. Agree with current management. Thank you for allowing me to participate in the care of your patient. Will follow up with you. [id number]/[facility] #: [id number] EULALIO
[2018-06-22] MEDS: Albuterol 2.5 MG/3 ML NEB.SOL* (0.083%) INH PRN (23:38)
[2018-06-23] MEDS: LORazepam TAB(*) 0.5 MG PO PRN (00:15)
[2018-06-23] MEDS: DOXYcycline IV* 100 MG in NS 0.9% 250 ML* 250 ML IVPB SCH ×2 (05:01→17:52)
[2018-06-23 06:04] LABS: ABS Basophils 0 10^3/ul (0-0.2); ABS Eosinophils 0 10^3/ul (0-0.6); ABS Lymphocytes 0.7 10^3/ul (1.0-4.8); ABS Neutrophils 3.7 10^3/ul (1.5-7.7); ABS Nucleated RBC 0 10^3/ul; Eosinophil % 0.9 %; Hematocrit 32 % (35-47); Hemoglobin 10.7 g/dl (12.0-16.0); Lymphocyte % 12.3 %; Mean Corpuscular HGB Conc 34 g/dl (31-36); Mean Corpuscular Hemoglobin 32 pg (27-31); Mean Corpuscular Volume 94 fL (80-97); Mean Platelet Volume 9.1 fL (7.4-10.4); Nucleated Red Blood Cells % 0; Platelet Count 161 10^3/ul (150-450); Red Blood Count 3.37 10^6/ul (4.00-5.40); Red Cell Distribution Width 14 % (10.5-15); White Blood Count 5.5 10^3/ul (3.5-10.8)
[2018-06-23 06:30] LABS: BUN/Creatinine Ratio 30.5 (8-20); Calcium 8.5 mg/dL (8.6-10.3); EGFR African American 81.6 (>60); EGFR Non-African American 67.4 (>60); Potassium 3.9 mmol/L (3.5-5.0)
[2018-06-23] MEDS: Albuterol 2.5 MG/3 ML NEB.SOL* (0.083%) INH PRN ×3 (06:40→21:27)
[2018-06-23] MEDS ORDERED: Furosemide IV* 10 MG/ML VIAL (40 MG) IV STA (06:57)
[2018-06-23] MEDS: Furosemide IV* 10 MG/ML VIAL (40 MG) IV SLOW PU SCH (06:59)
[2018-06-23] MEDS: Mometasone/Formoter 200/5 MDI INH SCH ×2 (07:04→21:27)
[2018-06-23] MEDS ORDERED: predniSONE TAB* 20 MG PO SCH (09:00)
[2018-06-23] MEDS: Cholecalciferol TAB* 400 UNIT PO SCH (09:33)
[2018-06-23] MEDS: Ascorbic Acid TAB* 500 MG PO SCH (09:33)
[2018-06-23] MEDS: Losartan TAB* 25 MG PO SCH (09:33)
[2018-06-23] MEDS: Aspirin EC TAB* 81 MG TAB.EC PO SCH (09:33)
[2018-06-23] MEDS: guaiFENesin ER TAB 600 MG PO SCH ×2 (09:33→20:41)
[2018-06-23] MEDS: Multivitamins/Minerals TAB PO SCH (09:34)
[2018-06-23] MEDS: Pregabalin CAP(*) 25 MG PO SCH (09:34)
--- NOTE | 2018-06-23 10:29 | PN ---
Subjective Date of Service: 06/23/18 Interval History: HD #2 on 06/23 78W with COPD on 4L home O2, HFrEF 40-45%, AAA, colon cancer s/p resection/chemo , presents with subacute progressive dyspnea, productive cough, and LE edema, CHF vs PNA. Overnight, pt c/o worsening SOB tachyepnic and satting 90% on 5L, ABG 7.36/61/81 /100%, was not placed on BiPAP, addnl dose of Lasix 40mg IV x 1 given for feat of acute vol overload. CXR shows mild pulm edema, vasc congestion Labs this morning stable. Seen at bedside on 5L oxymask, breathing comfortable, can speak full sentences, says feeling better compared to this morning but still not at baseline, c/o tightness and wheezing but denies CP, GI, or other MSK complaints. Ambulating to bathroom Objective Active Medications: Acetaminophen (Tylenol Tab*) 650 mg PO Q6H PRN PRN Reason: FEVER/PAIN Albuterol (Ventolin 2.5 Mg/3 Ml Neb.Lisandra*) 2.5 mg INH Q2H PRN PRN Reason: SOB/WHEEZING Last Admin: 06/23/18 06:40 Dose: 2.5 mg Ascorbic Acid (Vitamin C Tab*) 1,000 mg PO DAILY [facility] Last Admin: 06/23/18 09:33 Dose: 1,000 mg Aspirin (Aspirin Ec Tab*) 81 mg PO DAILY [facility] Last Admin: 06/23/18 09:33 Dose: 81 mg Atorvastatin Calcium (Lipitor*) 10 mg PO BEDTIME [facility] Last Admin: 06/22/18 20:07 Dose: 10 mg Benzonatate (Tessalon Cap*) 100 mg PO BID PRN PRN Reason: COUGH Last Admin: 06/23/18 00:11 Dose: 100 mg Cetirizine HCl (Zyrtec*) 10 mg PO DAILY PRN PRN Reason: Allergy Symptoms Cholecalciferol (Vitamin D Tab*) 400 unit PO DAILY [facility] Last Admin: 06/23/18 09:33 Dose: 400 unit Enoxaparin Sodium (Lovenox(*)) 40 mg SUBCUT BEDTIME [facility] Last Admin: 06/22/18 20:09 Dose: 40 mg Furosemide (Lasix Iv*) 40 mg IV SLOW PU DAILY [facility] Last Admin: 06/23/18 06:59 Dose: 40 mg Guaifenesin (Mucinex*) 1,200 mg PO BID [facility] Last Admin: 06/23/18 09:33 Dose: 1,200 mg Doxycycline Hyclate 100 mg/ (Sodium Chloride) 250 mls @ 250 mls/hr IVPB Q12H [facility] Last Admin: 06/23/18 05:01 Dose: 250 mls/hr Ceftriaxone Sodium 1 gm/ (Sodium Chloride) 50 mls @ 200 mls/hr IVPB 1930 [facility] Last Admin: 06/22/18 19:39 Dose: 200 mls/hr Lorazepam (Ativan Tab(*)) 0.5 mg PO Q6H PRN PRN Reason: ANXIETY Last Admin: 06/23/18 00:15 Dose: 0.5 mg Losartan Potassium (Cozaar Tab*) 50 mg PO DAILY [facility] Last Admin: 06/23/18 09:33 Dose: 50 mg Mometasone Furoate/Formoterol Fumar (Dulera 200/5 Mdi*) 2 puff INH BID [facility]; Protocol Last Admin: 06/23/18 07:04 Dose: 2 puff Multivitamins/Minerals (Theragran/Minerals Tab*) 1 tab PO DAILY [facility] Last Admin: 06/23/18 09:34 Dose: 1 tab Ondansetron HCl (Zofran Inj*) 4 mg IV Q6H PRN PRN Reason: NAUSEA Prednisone (Deltasone Tab*) 40 mg PO DAILY [facility] Stop: 06/25/18 12:00 Last Admin: 06/23/18 09:33 Dose: 40 mg Pregabalin (Lyrica Cap(*)) 25 mg PO DAILY [facility] Last Admin: 06/23/18 09:34 Dose: 25 mg Pregabalin (Lyrica Cap(*)) 50 mg PO BEDTIME [facility] Last Admin: 06/22/18 20:07 Dose: 50 mg Senna (Senokot Tab*) 1 tab PO DAILY PRN PRN Reason: CONSTIPATION Vital Signs - 8 hr 06/23/18 06/23/18 06/23/18 03:14 03:15 07:06 Temperature 97.6 F Pulse Rate 76 85 Respiratory 18 18 22 Rate Blood Pressure 112/96 (mmHg) O2 Sat by Pulse 98 91 Oximetry 06/23/18 09:34 Temperature Pulse Rate Respiratory 22 Rate Blood Pressure (mmHg) O2 Sat by Pulse Oximetry Oxygen Devices in Use Now: OxyMask Appearance: Pleasant woman in NAD with oxymask Ears/Nose/Mouth/Throat: NL Teeth, Lips, Gums Neck: NL Appearance and Movements; NL JVP Respiratory: Symmetrical Chest Expansion and Respiratory Effort, - - Dimished in blt bases, E wheeze Cardiovascular: NL Sounds; No Murmurs; No JVD, RRR Abdominal: NL Sounds; No Tenderness; No Distention, No Hepatosplenomegaly Lymphatic: No Cervical Adenopathy Extremities: - - Chroonic venous stasis 1+ non pitting edema Neurological: Alert and Oriented x 3 Result Diagrams: 06/23/18 05:38 06/23/18 05:38 Microbiology and Other Data: Microbiology 06/21/18 11:28 Aerobic Blood Culture - Preliminary Blood Venous No Growth Day 1 Anaerobic Blood Culture - Preliminary No Growth Day 1 06/21/18 11:38 Aerobic Blood Culture - Preliminary Blood Venous No Growth Day 1 Anaerobic Blood Culture - Preliminary No Growth Day 1 06/21/18 11:38 Influenza Types A,B Antigen - Final Nasal Specimen received for Influenza A/B Molecular testing Assess/Plan/Problems-Billing 78W with COPD on 4L home O2, HFrEF 40-45%, AAA, colon cancer s/p resection/chemo , presents with subacute progressive dyspnea, productive cough, and LE edema. She was found with hypoxia and temperature max 100.1 F, no leukocytosis or left shift, BNP 321 (obese, no baseline), and CXR with pulm edema. - Patient Problems (1) Congestive heart failure (CHF) Current Visit: Yes Status: Acute Code(s): I50.9 - HEART FAILURE, UNSPECIFIED SNOMED Code(s): 67335698 Comment: Previous EF 25-30% (Mar 2018), now 40-45%. Pt with pulm edema on CXR but trace LE edema. - cont furosemide 40mg IV daily - improvement on CXR, s/p addnl dose 06/23 - on ARB, unclear why not on beta-pedro?? - on ASA and statin - pt with nonobstructive CAD on cath 04/2018 (2) COPD exacerbation Current Visit: Yes Status: Acute Code(s): J44.1 - CHRONIC OBSTRUCTIVE PULMONARY DISEASE W (ACUTE) EXACERBATION SNOMED Code(s): 618710682 Comment: Pt with recent sick contact (viral URI). Currently low concern for bacterial infection. - on CTX (06/21- ) and doxy IV (06/22 - ); bibasilar airspace consolidations likely not pneumonia - consider DC abx tomorrow if cultures negative (procalcitonin ordered as well) - cont nebs prn with flutter valve - pulm PT with respiratory therapiest - ordered for Dulera in place of home Symbicort - cont steroids, will switch to IV for 1 day to see if improvement Methyl pred BID IV 06/23 - Acute SOB this morning most likely combo of pulm edema and panic (3) Anxiety Current Visit: Yes Status: Acute Code(s): F41.9 - ANXIETY DISORDER, UNSPECIFIED SNOMED Code(s): 98396101 Comment: cont home lorazepam prns and monitor respiratory status closely (4) Neuropathy Current Visit: Yes Status: Acute Code(s): G62.9 - POLYNEUROPATHY, UNSPECIFIED SNOMED Code(s): 819897146 Comment: cont home Lyrica (5) Abdominal aortic aneurysm (AAA) 30 to 34 mm in diameter Current Visit: No Status: Acute Code(s): I71.4 - ABDOMINAL AORTIC ANEURYSM, WITHOUT RUPTURE SNOMED Code(s): 343408222 Comment: - 3.[address] - Continue outpatient surveillance (6) DVT prophylaxis Current Visit: Yes Status: Acute Code(s): TRF2334 - SNOMED Code(s): 420742606 Comment: switch to lovenox (7) Full code status Current Visit: No Status: Acute Code(s): Z78.9 - OTHER SPECIFIED HEALTH STATUS SNOMED Code(s): 476686928 Comment: Full Code Status and Disposition: Has home O2. Should f/u with Pulm clinic. Unclear if previously evaluated for PATH team. Can return to home when back to baseline
[2018-06-23] MEDS: methylPREDNISolone SOD 40 MG* 1 ML VIAL IV SCH (17:52)
[2018-06-23] MEDS: cefTRIAXone(*) 1 GM in NS 0.9% 50 ML* 50 ML IVPB SCH (20:05)
[2018-06-23] MEDS: Atorvastatin* 10 MG TAB PO SCH (20:41)
[2018-06-23] MEDS: Enoxaparin(*) 40 MG/0.4 ML SYR SUBCUT SCH (20:41)
[2018-06-23] MEDS: Pregabalin CAP(*) 50 MG PO SCH (20:41)
[2018-06-24] MEDS: methylPREDNISolone SOD 40 MG* 1 ML VIAL IV SCH ×2 (03:28→15:37)
[2018-06-24] MEDS: DOXYcycline IV* 100 MG in NS 0.9% 250 ML* 250 ML IVPB SCH (05:07)
[2018-06-24] MEDS: Albuterol 2.5 MG/3 ML NEB.SOL* (0.083%) INH PRN ×3 (05:32→18:20)
[2018-06-24 05:40] LABS: ABS Basophils 0 10^3/ul (0-0.2); ABS Eosinophils 0 10^3/ul (0-0.6); ABS Lymphocytes 0.3 10^3/ul (1.0-4.8); ABS Monocytes 0.4 10^3/ul (0-0.8); ABS Nucleated RBC 0 10^3/ul; Eosinophil % 0 %; Hematocrit 35 % (35-47); Hemoglobin 11.3 g/dl (12.0-16.0); Lymphocyte % 5.9 %; Mean Corpuscular HGB Conc 33 g/dl (31-36); Mean Corpuscular Hemoglobin 31 pg (27-31); Mean Corpuscular Volume 94 fL (80-97); Mean Platelet Volume 9.2 fL (7.4-10.4); Nucleated Red Blood Cells % 0; Platelet Count 205 10^3/ul (150-450); Red Blood Count 3.68 10^6/ul (4.00-5.40); Red Cell Distribution Width 13 % (10.5-15); White Blood Count 4.6 10^3/ul (3.5-10.8)
[2018-06-24 05:57] LABS: BUN/Creatinine Ratio 29.1 (8-20); Calcium 8.5 mg/dL (8.6-10.3); EGFR African American 77.2 (>60); EGFR Non-African American 63.8 (>60); Potassium 4.4 mmol/L (3.5-5.0)
[2018-06-24] MEDS: Mometasone/Formoter 200/5 MDI INH SCH ×2 (08:17→20:55)
[2018-06-24] MEDS: Cholecalciferol TAB* 400 UNIT PO SCH (09:12)
[2018-06-24] MEDS: guaiFENesin ER TAB 600 MG PO SCH ×2 (09:13→20:32)
[2018-06-24] MEDS: Multivitamins/Minerals TAB PO SCH (09:13)
[2018-06-24] MEDS: Pregabalin CAP(*) 25 MG PO SCH (09:14)
[2018-06-24] MEDS: Losartan TAB* 25 MG PO SCH (09:15)
[2018-06-24] MEDS: Ascorbic Acid TAB* 500 MG PO SCH (09:15)
[2018-06-24] MEDS: Aspirin EC TAB* 81 MG TAB.EC PO SCH (09:16)
[2018-06-24] MEDS: Furosemide IV* 10 MG/ML VIAL (40 MG) IV SLOW PU SCH (09:20)
--- NOTE | 2018-06-24 12:53 | PN ---
Subjective Date of Service: 06/24/18 Interval History: HD #3 on 06/24 78W with COPD on 4L home O2, HFrEF 40-45%, AAA, colon cancer s/p resection/chemo , presents with subacute progressive dyspnea, productive cough, and LE edema, CHF vs PNA. Overnight, no acute events VSS, UOP + though poorly recorded. Labs this morning stable. Seen at bedside on 5L NC, baseline is 4L breathing comfortable, can speak full sentences, says feeling better compared yesterday, c /o tightness and wheezing but denies CP, GI, or other MSK complaints. Ambulating to bathroom, we have a discussion about what she thinks may have tipped this off, she says her aide was vacuuming a lot of cat hair the day she started feeling short of breath, and that it did start acutely. 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 Objective Active Medications: Acetaminophen (Tylenol Tab*) 650 mg PO Q6H PRN PRN Reason: FEVER/PAIN Albuterol (Ventolin 2.5 Mg/3 Ml Neb.Lisandra*) 2.5 mg INH Q2H PRN PRN Reason: SOB/WHEEZING Last Admin: 06/24/18 08:17 Dose: 2.5 mg Ascorbic Acid (Vitamin C Tab*) 1,000 mg PO DAILY [facility] Last Admin: 06/24/18 09:15 Dose: 1,000 mg Aspirin (Aspirin Ec Tab*) 81 mg PO DAILY [facility] Last Admin: 06/24/18 09:16 Dose: 81 mg Atorvastatin Calcium (Lipitor*) 10 mg PO BEDTIME [facility] Last Admin: 06/23/18 20:41 Dose: 10 mg Benzonatate (Tessalon Cap*) 100 mg PO BID PRN PRN Reason: COUGH Last Admin: 06/23/18 00:11 Dose: 100 mg Cetirizine HCl (Zyrtec*) 10 mg PO DAILY PRN PRN Reason: Allergy Symptoms Cholecalciferol (Vitamin D Tab*) 400 unit PO DAILY [facility] Last Admin: 06/24/18 09:12 Dose: 400 unit Enoxaparin Sodium (Lovenox(*)) 40 mg SUBCUT BEDTIME [facility] Last Admin: 06/23/18 20:41 Dose: 40 mg Furosemide (Lasix Iv*) 40 mg IV SLOW PU DAILY [facility] Last Admin: 06/24/18 09:20 Dose: 40 mg Guaifenesin (Mucinex*) 1,200 mg PO BID [facility] Last Admin: 06/24/18 09:13 Dose: 1,200 mg Doxycycline Hyclate 100 mg/ (Sodium Chloride) 250 mls @ 250 mls/hr IVPB Q12H [facility] Last Admin: 06/24/18 05:07 Dose: 250 mls/hr Ceftriaxone Sodium 1 gm/ (Sodium Chloride) 50 mls @ 200 mls/hr IVPB 1930 [facility] Last Admin: 06/23/18 20:05 Dose: 200 mls/hr Lorazepam (Ativan Tab(*)) 0.5 mg PO Q6H PRN PRN Reason: ANXIETY Last Admin: 06/23/18 00:15 Dose: 0.5 mg Losartan Potassium (Cozaar Tab*) 50 mg PO DAILY [facility] Last Admin: 06/24/18 09:15 Dose: 50 mg Methylprednisolone Sodium Succinate (Solu-Medrol 40 Mg) 40 mg IV Q12H [facility] Last Admin: 06/24/18 03:28 Dose: 40 mg Mometasone Furoate/Formoterol Fumar (Dulera 200/5 Mdi*) 2 puff INH BID [facility]; Protocol Last Admin: 06/24/18 08:17 Dose: 2 puff Multivitamins/Minerals (Theragran/Minerals Tab*) 1 tab PO DAILY [facility] Last Admin: 06/24/18 09:13 Dose: 1 tab Ondansetron HCl (Zofran Inj*) 4 mg IV Q6H PRN PRN Reason: NAUSEA Pregabalin (Lyrica Cap(*)) 25 mg PO DAILY [facility] Last Admin: 06/24/18 09:14 Dose: 25 mg Pregabalin (Lyrica Cap(*)) 50 mg PO BEDTIME [facility] Last Admin: 06/23/18 20:41 Dose: 50 mg Senna (Senokot Tab*) 1 tab PO DAILY PRN PRN Reason: CONSTIPATION Vital Signs - 8 hr 06/24/18 06/24/18 06/24/18 05:34 07:31 08:00 Temperature 98.2 F Pulse Rate 77 75 Respiratory 20 18 18 Rate Blood Pressure 139/69 (mmHg) O2 Sat by Pulse 98 98 Oximetry 06/24/18 06/24/18 08:18 09:14 Temperature Pulse Rate 89 Respiratory 20 18 Rate Blood Pressure (mmHg) O2 Sat by Pulse 91 Oximetry Oxygen Devices in Use Now: OxyMask Appearance: Pleasant woman in NAD with oxymask Eyes: No Scleral Icterus, PERRLA Ears/Nose/Mouth/Throat: NL Teeth, Lips, Gums Neck: NL Appearance and Movements; NL JVP Respiratory: - - Mild E wheeze Cardiovascular: NL Sounds; No Murmurs; No JVD, - - INOCENCIA 3/6 in precordial leads Lymphatic: No Cervical Adenopathy Extremities: No Edema Neurological: Alert and Oriented x 3 Result Diagrams: 06/24/18 05:15 06/24/18 05:15 Microbiology and Other Data: Microbiology 06/21/18 11:28 Aerobic Blood Culture - Preliminary Blood Venous No Growth Day 1 Anaerobic Blood Culture - Preliminary No Growth Day 1 06/21/18 11:38 Aerobic Blood Culture - Preliminary Blood Venous No Growth Day 1 Anaerobic Blood Culture - Preliminary No Growth Day 1 06/21/18 11:38 Influenza Types A,B Antigen - Final Nasal Specimen received for Influenza A/B Molecular testing Assess/Plan/Problems-Billing 78W with COPD on 4L home O2, HFrEF 40-45%, AAA, colon cancer s/p resection/chemo , presents with subacute progressive dyspnea, productive cough, and LE edema. She was found with hypoxia and temperature max 100.1 F, no leukocytosis or left shift, BNP 321 (obese, no baseline), and CXR with pulm edema. - Patient Problems (1) Congestive heart failure (CHF) Current Visit: Yes Status: Acute Code(s): I50.9 - HEART FAILURE, UNSPECIFIED SNOMED Code(s): 08728922 Comment: Previous EF 25-30% (Mar 2018), now 40-45%. Pt with pulm edema on CXR but trace LE edema. Furthermore mod-severe on echo, will discuss with Dr. Shultz is playing a part peak valve gradient >40. - cont furosemide 40mg IV daily - improvement on CXR, s/p addnl dose 10 - on ARB, unclear why not on beta-pedro?? - on ASA and statin - pt with nonobstructive CAD on cath 04/2018 (2) COPD exacerbation Current Visit: Yes Status: Acute Code(s): J44.1 - CHRONIC OBSTRUCTIVE PULMONARY DISEASE W (ACUTE) EXACERBATION SNOMED Code(s): 606335478 Comment: Pt with recent sick contact (viral URI). --Currently low concern for bacterial infection. on CTX (06/21-06/24 ) and doxy IV (06/22 - ); bibasilar airspace consolidations likely not pneumonia will d/c CTX on 06/24, and keep on Doxy for now for a total of 7 days day 2/7 on 06/24 - cont nebs prn with flutter valve - pulm PT with respiratory therapiest - ordered for Dulera in place of home Symbicort, needs to be optimized on a LAMA but ume not an option and failed spiriva in the past - cont steroids, will switch to IV for 1 day to see if improvement Methyl pred BID IV 06/23, will continue IV for addnl day 06/24 and trial back to PO on 06/25 (3) Anxiety Current Visit: Yes Status: Acute Code(s): F41.9 - ANXIETY DISORDER, UNSPECIFIED SNOMED Code(s): 59500591 Comment: cont home lorazepam prns and monitor respiratory status closely (4) Neuropathy Current Visit: Yes Status: Acute Code(s): G62.9 - POLYNEUROPATHY, UNSPECIFIED SNOMED Code(s): 204326326 Comment: cont home Lyrica (5) Abdominal aortic aneurysm (AAA) 30 to 34 mm in diameter Current Visit: No Status: Acute Code(s): I71.4 - ABDOMINAL AORTIC ANEURYSM, WITHOUT RUPTURE SNOMED Code(s): 854458727 Comment: - 3.[address] - Continue outpatient surveillance (6) DVT prophylaxis Current Visit: Yes Status: Acute Code(s): KFU6320 - SNOMED Code(s): 983790345 Comment: switch to lovenox (7) Full code status Current Visit: No Status: Acute Code(s): Z78.9 - OTHER SPECIFIED HEALTH STATUS SNOMED Code(s): 235296719 Comment: Full Code Status and Disposition: Has home O2. Should f/u with Pulm clinic. Unclear if previously evaluated for PATH team, she declines palliative today. Can return to home when back to baseline
--- NOTE | 2018-06-24 18:18 | PN ---
Progress Note - Progress Note Date of Service: 06/24/18 - Pulm f/u note Note: Pt seen and examined at bedside pt reports feeling slightly better today. Had issues with SOB over the weekend. Reports being able to mobilize phleghm and thats helping Active Medications Generic Name Dose Route Start Last Admin Trade Name Freq PRN Reason Stop Dose Admin Acetaminophen 650 mg 06/21/18 15:01 Tylenol Tab* PO Q6H PRN FEVER/PAIN Albuterol 2.5 mg 06/22/18 16:59 06/24/18 08:17 Ventolin 2.5 Mg/3 Ml Neb.Lisandra* INH 2.5 mg Q2H PRN Administration SOB/WHEEZING Ascorbic Acid 1,000 mg 06/22/18 09:00 06/24/18 09:15 Vitamin C Tab* PO 1,000 mg DAILY [facility] Administration Aspirin 81 mg 06/22/18 09:00 06/24/18 09:16 Aspirin Ec Tab* PO 81 mg DAILY [facility] Administration Atorvastatin Calcium 10 mg 06/21/18 21:00 06/23/18 20:41 Lipitor* PO 10 mg BEDTIME [facility] Administration Benzonatate 100 mg 06/21/18 15:01 06/23/18 00:11 Tessalon Cap* PO 100 mg BID PRN Administration COUGH Cetirizine HCl 10 mg 06/21/18 15:06 Zyrtec* PO DAILY PRN Allergy Symptoms Cholecalciferol 400 unit 06/22/18 09:00 06/24/18 09:12 Vitamin D Tab* PO 400 unit DAILY [facility] Administration Doxycycline Hyclate 100 mg 06/24/18 21:00 Vibramycin Cap(*) PO 06/28/18 21:01 BID [facility]INO Enoxaparin Sodium 40 mg 06/22/18 21:00 06/23/18 20:41 Lovenox(*) SUBCUT 40 mg BEDTIME [facility] Administration Furosemide 40 mg 06/22/18 09:00 06/24/18 09:20 Lasix Iv* IV SLOW PU 40 mg DAILY [facility] Administration Guaifenesin 1,200 mg 06/21/18 21:00 06/24/18 09:13 Mucinex* PO 1,200 mg BID [facility] Administration Lorazepam 0.5 mg 06/21/18 15:06 06/23/18 00:15 Ativan Tab(*) PO 0.5 mg Q6H PRN Administration ANXIETY Losartan Potassium 50 mg 06/22/18 09:00 06/24/18 09:15 Cozaar Tab* PO 50 mg DAILY [facility] Administration Methylprednisolone Sodium Succinate 40 mg 06/23/18 15:00 06/24/18 15:37 Solu-Medrol 40 Mg IV 06/25/18 23:00 40 mg Q12H [facility] Administration Mometasone Furoate/Formoterol Fumar 2 puff 06/21/18 21:00 06/24/18 08:17 Dulera 200/5 Mdi* INH 2 puff BID [facility] Administration Protocol Multivitamins/Minerals 1 tab 06/22/18 09:00 06/24/18 09:13 Theragran/Minerals Tab* PO 1 tab DAILY [facility] Administration Ondansetron HCl 4 mg 06/21/18 15:01 Zofran Inj* IV Q6H PRN NAUSEA Prednisone 50 mg 06/25/18 09:00 Deltasone Tab* PO DAILY [facility] Pregabalin 25 mg 06/22/18 09:00 06/24/18 09:14 Lyrica Cap(*) PO 25 mg DAILY [facility] Administration Pregabalin 50 mg 06/21/18 21:00 06/23/18 20:41 Lyrica Cap(*) PO 50 mg BEDTIME [facility] Administration Senna 1 tab 06/21/18 15:06 Senokot Tab* PO DAILY PRN CONSTIPATION Vital Signs Temp Pulse Resp BP Pulse Ox 97.5 F 76 20 134/55 100 06/24/18 11:19 06/24/18 11:19 06/24/18 11:19 06/24/18 11:19 06/24/18 11:19 O/E: Pt in NAD HEENT: PERRLA, NoJVD Lungs; Diminished air entry, wheeze CVS S1, S2+ Abd: Obese, BS+ Ext: Trace edema Neuro: no focal deficits Skin No rash Laboratory Results - last 24 hr 06/24/18 06/24/18 05:15 05:15 WBC 4.6 RBC 3.68 L Hgb 11.3 L Hct 35 MCV 94 MCH 31 MCHC 33 RDW 13 Plt Count 205 MPV 9.2 Neut % (Auto) 86.1 Lymph % (Auto) 5.9 [place] % (Auto) 8.0 Eos % (Auto) 0 Baso % (Auto) 0 Absolute Neuts (auto) 4.0 Absolute Lymphs (auto) 0.3 L Absolute Monos (auto) 0.4 Absolute Eos (auto) 0 Absolute Basos (auto) 0 Absolute Nucleated RBC 0 Nucleated RBC % 0 Sodium 137 Potassium 4.4 Chloride 99 L Carbon Dioxide 35 H Anion Gap 3 BUN 25 H Creatinine 0.86 Est GFR ( Amer) 77.2 Est GFR (Non-Af Amer) 63.8 BUN/Creatinine Ratio 29.1 H Glucose 131 H Calcium 8.5 L I/R: 78 y o f with h/o severe COPD, recurrent exacerbations recently, noted to have sys CHF, , was admitted with worsening SOB, being treated for acute COPD exacerbation and acute sys CHF Pt with sick contact recently, suspect viral bronchitis causing acute COPD exacerbation Pt with slow improvement Still has significant wheeze and tightness Not in fluid overload at this time Will c/w prednisone at 50 without further taper c/w abx empirically c/w diuretic Titrate FiO2 as tolerated OOB to chair as tolerated Pt not in favor of BiPAP or palliative care approach Will continue to monitor closely
[2018-06-24] MEDS: Pregabalin CAP(*) 50 MG PO SCH (20:32)
[2018-06-24] MEDS: Enoxaparin(*) 40 MG/0.4 ML SYR SUBCUT SCH (20:33)
[2018-06-24] MEDS: Atorvastatin* 10 MG TAB PO SCH (20:33)
[2018-06-24] MEDS: DOXYcycline CAP(*) 100 MG PO SCH (20:33)
[2018-06-25] MEDS: Albuterol 2.5 MG/3 ML NEB.SOL* (0.083%) INH PRN ×4 (00:20→23:19)
[2018-06-25] MEDS: methylPREDNISolone SOD 40 MG* 1 ML VIAL IV SCH ×2 (03:49→15:15)
[2018-06-25 06:00] LABS: BUN/Creatinine Ratio 33.7 (8-20); Calcium 8.5 mg/dL (8.6-10.3); EGFR African American 80.4 (>60); EGFR Non-African American 66.5 (>60); Potassium 4.5 mmol/L (3.5-5.0)
[2018-06-25] MEDS: Mometasone/Formoter 200/5 MDI INH SCH ×2 (06:34→19:53)
[2018-06-25] MEDS: Cholecalciferol TAB* 400 UNIT PO SCH (09:19)
[2018-06-25] MEDS: DOXYcycline CAP(*) 100 MG PO SCH ×2 (09:19→20:05)
[2018-06-25] MEDS: guaiFENesin ER TAB 600 MG PO SCH ×2 (09:20→20:05)
[2018-06-25] MEDS: Pregabalin CAP(*) 25 MG PO SCH (09:20)
[2018-06-25] MEDS: Losartan TAB* 25 MG PO SCH (09:20)
[2018-06-25] MEDS: predniSONE TAB* 50 MG PO SCH (09:21)
[2018-06-25] MEDS: Ascorbic Acid TAB* 500 MG PO SCH (09:21)
[2018-06-25] MEDS: Aspirin EC TAB* 81 MG TAB.EC PO SCH (09:21)
[2018-06-25] MEDS: Multivitamins/Minerals TAB PO SCH (09:21)
[2018-06-25] MEDS: Furosemide IV* 10 MG/ML VIAL (40 MG) IV SLOW PU SCH (10:46)
--- NOTE | 2018-06-25 14:51 | PN ---
Subjective Date of Service: 06/25/18 Interval History: HOSPITALIST PROGRESS NOTE Patient seen and examined at bedside. Care reviewed and d/w Randal Warner RN. She feels improved today. Was able to sleep last night, down to 3 liters of O2 at rest and 4.5 liters with exertion. Able to ambulate to bathroom with some dyspnea, but closer to baseline. Family History: Unchanged from Admission Social History: Unchanged from Admission Past Medical History: Unchanged from Admission Objective Active Medications: Acetaminophen (Tylenol Tab*) 650 mg PO Q6H PRN PRN Reason: FEVER/PAIN Albuterol (Ventolin 2.5 Mg/3 Ml Neb.Lisandra*) 2.5 mg INH Q2H PRN PRN Reason: SOB/WHEEZING Last Admin: 06/25/18 06:31 Dose: 2.5 mg Ascorbic Acid (Vitamin C Tab*) 1,000 mg PO DAILY [facility] Last Admin: 06/25/18 09:21 Dose: 1,000 mg Aspirin (Aspirin Ec Tab*) 81 mg PO DAILY [facility] Last Admin: 06/25/18 09:21 Dose: 81 mg Atorvastatin Calcium (Lipitor*) 10 mg PO BEDTIME [facility] Last Admin: 06/24/18 20:33 Dose: 10 mg Benzonatate (Tessalon Cap*) 100 mg PO BID PRN PRN Reason: COUGH Last Admin: 06/23/18 00:11 Dose: 100 mg Cetirizine HCl (Zyrtec*) 10 mg PO DAILY PRN PRN Reason: Allergy Symptoms Cholecalciferol (Vitamin D Tab*) 400 unit PO DAILY [facility] Last Admin: 06/25/18 09:19 Dose: 400 unit Doxycycline Hyclate (Vibramycin Cap(*)) 100 mg PO BID [facility] Stop: 06/28/18 21:01 Last Admin: 06/25/18 09:19 Dose: 100 mg Enoxaparin Sodium (Lovenox(*)) 40 mg SUBCUT BEDTIME [facility] Last Admin: 06/24/18 20:33 Dose: 40 mg Furosemide (Lasix Iv*) 40 mg IV SLOW PU DAILY [facility] Last Admin: 06/25/18 10:46 Dose: 40 mg Guaifenesin (Mucinex*) 1,200 mg PO BID [facility] Last Admin: 06/25/18 09:20 Dose: 1,200 mg Lorazepam (Ativan Tab(*)) 0.5 mg PO Q6H PRN PRN Reason: ANXIETY Last Admin: 06/23/18 00:15 Dose: 0.5 mg Losartan Potassium (Cozaar Tab*) 50 mg PO DAILY [facility] Last Admin: 06/25/18 09:20 Dose: 50 mg Methylprednisolone Sodium Succinate (Solu-Medrol 40 Mg) 40 mg IV Q12H [facility] Stop: 06/25/18 23:00 Last Admin: 06/25/18 03:49 Dose: 40 mg Mometasone Furoate/Formoterol Fumar (Dulera 200/5 Mdi*) 2 puff INH BID [facility]; Protocol Last Admin: 06/25/18 06:34 Dose: 2 puff Multivitamins/Minerals (Theragran/Minerals Tab*) 1 tab PO DAILY [facility] Last Admin: 06/25/18 09:21 Dose: 1 tab Ondansetron HCl (Zofran Inj*) 4 mg IV Q6H PRN PRN Reason: NAUSEA Prednisone (Deltasone Tab*) 50 mg PO DAILY [facility] Last Admin: 06/25/18 09:21 Dose: 50 mg Pregabalin (Lyrica Cap(*)) 25 mg PO DAILY [facility] Last Admin: 06/25/18 09:20 Dose: 25 mg Pregabalin (Lyrica Cap(*)) 50 mg PO BEDTIME [facility] Last Admin: 06/24/18 20:32 Dose: 50 mg Senna (Senokot Tab*) 1 tab PO DAILY PRN PRN Reason: CONSTIPATION Vital Signs - 8 hr 06/25/18 06/25/18 06/25/18 07:34 08:00 09:20 Temperature 97.8 F Pulse Rate 81 Respiratory 17 22 18 Rate Blood Pressure 153/77 (mmHg) O2 Sat by Pulse 100 Oximetry 06/25/18 10:56 Temperature 97.9 F Pulse Rate 76 Respiratory 19 Rate Blood Pressure 134/71 (mmHg) O2 Sat by Pulse 99 Oximetry Oxygen Devices in Use Now: Nasal Cannula Appearance: Pleasant elderly lady sitting up in a recliner in NAD. Eyes: No Scleral Icterus Ears/Nose/Mouth/Throat: Mucous Membranes Moist Neck: Trachea Midline Respiratory: Symmetrical Chest Expansion and Respiratory Effort, - - BS+ bilaterally diminished, no added sounds Cardiovascular: RRR - Normal S1 and S2 Abdominal: NL Sounds; No Tenderness; No Distention Neurological: Alert and Oriented x 3, NL Muscle Strength and Tone Result Diagrams: 06/24/18 05:15 06/25/18 05:28 Assess/Plan/Problems-Billing Assessment: 78yo F with PMH of COPD on 4L home O2, HFrEF 40-45%, AAA, colon cancer s/p resection/chemo, presents with subacute progressive dyspnea, productive cough, and LE edema. She was found with hypoxia and temperature max 100.1 F, no leukocytosis or left shift, BNP 321 (obese, no baseline), and CXR with pulm edema. - Patient Problems (1) Acute and chronic respiratory failure with hypoxia Comment: - Improved - close to her baseline. - Secondary to COPD and CHF exacerbations. (2) COPD exacerbation Comment: - Recent sick contact with daughter who had viral URI. - Continue on Doxycycline as planned #06/20. - Continue steroids and bronchodilators. (3) Congestive heart failure (CHF) Comment: - Previous EF 25-30% (Mar 2018), now 40-45%. - Change Furosemide to PO. - on ASA and statin - pt with nonobstructive CAD on cath 04/2018 (4) Anxiety Comment: cont home lorazepam prns and monitor respiratory status closely (5) DVT prophylaxis Comment: - Lovenox (6) Full code status Comment: Status and Disposition: Inpatient.
--- NOTE | 2018-06-25 15:18 | PN ---
Progress Note - Progress Note Date of Service: 06/25/18 - Pulm f/u note Note: Pt seen and examined at bedside. Pt reports feeling better this morning. Was able to sleep well last night. Has mild intermittent cough. O2 requirements are coming down. Active Medications Generic Name Dose Route Start Last Admin Trade Name Freq PRN Reason Stop Dose Admin Acetaminophen 650 mg 06/21/18 15:01 Tylenol Tab* PO Q6H PRN FEVER/PAIN Albuterol 2.5 mg 06/22/18 16:59 06/25/18 06:31 Ventolin 2.5 Mg/3 Ml Neb.Lisandra* INH 2.5 mg Q2H PRN Administration SOB/WHEEZING Ascorbic Acid 1,000 mg 06/22/18 09:00 06/25/18 09:21 Vitamin C Tab* PO 1,000 mg DAILY [facility] Administration Aspirin 81 mg 06/22/18 09:00 06/25/18 09:21 Aspirin Ec Tab* PO 81 mg DAILY [facility] Administration Atorvastatin Calcium 10 mg 06/21/18 21:00 06/24/18 20:33 Lipitor* PO 10 mg BEDTIME [facility]INO Administration Benzonatate 100 mg 06/21/18 15:01 06/23/18 00:11 Tessalon Cap* PO 100 mg BID PRN Administration COUGH Cetirizine HCl 10 mg 06/21/18 15:06 Zyrtec* PO DAILY PRN Allergy Symptoms Cholecalciferol 400 unit 06/22/18 09:00 06/25/18 09:19 Vitamin D Tab* PO 400 unit DAILY [facility] Administration Doxycycline Hyclate 100 mg 06/24/18 21:00 06/25/18 09:19 Vibramycin Cap(*) PO 06/28/18 21:01 100 mg BID [facility]INO Administration Enoxaparin Sodium 40 mg 06/22/18 21:00 06/24/18 20:33 Lovenox(*) SUBCUT 40 mg BEDTIME [facility]INO Administration Furosemide 20 mg 06/26/18 09:00 Lasix Tab* PO DAILY [facility] Guaifenesin 1,200 mg 06/21/18 21:00 06/25/18 09:20 Mucinex* PO 1,200 mg BID [facility]INO Administration Lorazepam 0.5 mg 06/21/18 15:06 06/23/18 00:15 Ativan Tab(*) PO 0.5 mg Q6H PRN Administration ANXIETY Losartan Potassium 50 mg 06/22/18 09:00 06/25/18 09:20 Cozaar Tab* PO 50 mg DAILY [facility]INO Administration Methylprednisolone Sodium Succinate 40 mg 06/23/18 15:00 06/25/18 03:49 Solu-Medrol 40 Mg IV 06/25/18 23:00 40 mg Q12H [facility] Administration Mometasone Furoate/Formoterol Fumar 2 puff 06/21/18 21:00 06/25/18 06:34 Dulera 200/5 Mdi* INH 2 puff BID [facility]INO Administration Protocol Multivitamins/Minerals 1 tab 06/22/18 09:00 06/25/18 09:21 Theragran/Minerals Tab* PO 1 tab DAILY [facility] Administration Ondansetron HCl 4 mg 06/21/18 15:01 Zofran Inj* IV Q6H PRN NAUSEA Prednisone 50 mg 06/25/18 09:00 06/25/18 09:21 Deltasone Tab* PO 50 mg DAILY [facility]INO Administration Pregabalin 25 mg 06/22/18 09:00 06/25/18 09:20 Lyrica Cap(*) PO 25 mg DAILY [facility]INO Administration Pregabalin 50 mg 06/21/18 21:00 06/24/18 20:32 Lyrica Cap(*) PO 50 mg BEDTIME [facility]INO Administration Senna 1 tab 06/21/18 15:06 Senokot Tab* PO DAILY PRN CONSTIPATION Vital Signs Temp Pulse Resp BP Pulse Ox 97.9 F 76 19 134/71 99 06/25/18 10:56 06/25/18 10:56 06/25/18 10:56 06/25/18 10:56 06/25/18 10:56 O/E: Pt in NAD HEENT: PERRLA, no JVD Lungs: diminished air entry b/l, scattered wheeze+ CVS: S1, S2+, regular Abd: Soft, BS+ Ext: Normal ROM Skin: No rash Neuro: No focal deficits Laboratory Results - last 24 hr 06/25/18 05:28 Sodium 137 Potassium 4.5 Chloride 99 L Carbon Dioxide 35 H Anion Gap 3 BUN 28 H Creatinine 0.83 Est GFR ( Amer) 80.4 Est GFR (Non-Af Amer) 66.5 BUN/Creatinine Ratio 33.7 H Glucose 109 H Calcium 8.5 L I/R: 78 y o f with h/o severe COPD, recurrent exacerbations recently, noted to have sys CHF, , was admitted with worsening SOB, being treated for acute COPD exacerbation and acute sys CHF Pt with sick contact recently, suspect viral bronchitis causing acute COPD exacerbation Pt better today Wheeze and tightness are improving Not in fluid overload at this time Will start prednisone taper c/w abx empirically c/w diuretic Titrate FiO2 as tolerated, currently requiring 3L at rest and 3.5 with activity OOB to chair as tolerated Pt not in favor of BiPAP or palliative care approach Will continue to monitor closely Possible d/c in am if stable
[2018-06-25] MEDS: Pregabalin CAP(*) 50 MG PO SCH (20:05)
[2018-06-25] MEDS: Atorvastatin* 10 MG TAB PO SCH (20:05)
[2018-06-25] MEDS: Enoxaparin(*) 40 MG/0.4 ML SYR SUBCUT SCH (20:05)
[2018-06-26] MEDS: Albuterol 2.5 MG/3 ML NEB.SOL* (0.083%) INH PRN ×4 (04:43→23:16)
[2018-06-26] MEDS: Furosemide TAB* 20 MG PO SCH (08:24)
[2018-06-26] MEDS: Aspirin EC TAB* 81 MG TAB.EC PO SCH (08:25)
[2018-06-26] MEDS: Cholecalciferol TAB* 400 UNIT PO SCH (08:25)
[2018-06-26] MEDS: predniSONE TAB* 50 MG PO SCH (08:25)
[2018-06-26] MEDS: Multivitamins/Minerals TAB PO SCH (08:25)
[2018-06-26] MEDS: Ascorbic Acid TAB* 500 MG PO SCH (08:25)
[2018-06-26] MEDS: DOXYcycline CAP(*) 100 MG PO SCH ×2 (08:25→20:40)
[2018-06-26] MEDS: Losartan TAB* 25 MG PO SCH (08:25)
[2018-06-26] MEDS: Pregabalin CAP(*) 25 MG PO SCH (08:25)
[2018-06-26] MEDS: guaiFENesin ER TAB 600 MG PO SCH ×2 (08:25→20:40)
[2018-06-26] MEDS: Mometasone/Formoter 200/5 MDI INH SCH ×2 (08:54→19:46)
--- NOTE | 2018-06-26 18:40 | PN ---
Progress Note - Progress Note Date of Service: 06/26/18 - Pulm f/u note Note: Pt seen and examined at bedside. Pt reported worsening SOB today when she tried to walk. She was better yesterday, slightly more dyspneic today Active Medications Generic Name Dose Route Start Last Admin Trade Name Freq PRN Reason Stop Dose Admin Acetaminophen 650 mg 06/21/18 15:01 Tylenol Tab* PO Q6H PRN FEVER/PAIN Albuterol 2.5 mg 06/22/18 16:59 06/26/18 15:22 Ventolin 2.5 Mg/3 Ml Neb.Lisandra* INH 2.5 mg Q2H PRN Administration SOB/WHEEZING Ascorbic Acid 1,000 mg 06/22/18 09:00 06/26/18 08:25 Vitamin C Tab* PO 1,000 mg DAILY [facility] Administration Aspirin 81 mg 06/22/18 09:00 06/26/18 08:25 Aspirin Ec Tab* PO 81 mg DAILY [facility] Administration Atorvastatin Calcium 10 mg 06/21/18 21:00 06/25/18 20:05 Lipitor* PO 10 mg BEDTIME [facility]INO Administration Benzonatate 100 mg 06/21/18 15:01 06/23/18 00:11 Tessalon Cap* PO 100 mg BID PRN Administration COUGH Cetirizine HCl 10 mg 06/21/18 15:06 Zyrtec* PO DAILY PRN Allergy Symptoms Cholecalciferol 400 unit 06/22/18 09:00 06/26/18 08:25 Vitamin D Tab* PO 400 unit DAILY [facility] Administration Doxycycline Hyclate 100 mg 06/24/18 21:00 06/26/18 08:25 Vibramycin Cap(*) PO 06/28/18 21:01 100 mg BID [facility]INO Administration Enoxaparin Sodium 40 mg 06/22/18 21:00 06/25/18 20:05 Lovenox(*) SUBCUT 40 mg BEDTIME [facility] Administration Furosemide 20 mg 06/26/18 09:00 06/26/18 08:24 Lasix Tab* PO 20 mg DAILY [facility] Administration Guaifenesin 1,200 mg 06/21/18 21:00 06/26/18 08:25 Mucinex* PO 1,200 mg BID [facility] Administration Lorazepam 0.5 mg 06/21/18 15:06 06/23/18 00:15 Ativan Tab(*) PO 0.5 mg Q6H PRN Administration ANXIETY Losartan Potassium 50 mg 06/22/18 09:00 06/26/18 08:25 Cozaar Tab* PO 50 mg DAILY [facility] Administration Mometasone Furoate/Formoterol Fumar 2 puff 06/21/18 21:00 06/26/18 08:54 Dulera 200/5 Mdi* INH 2 puff BID [facility]INO Administration Protocol Multivitamins/Minerals 1 tab 06/22/18 09:00 06/26/18 08:25 Theragran/Minerals Tab* PO 1 tab DAILY [facility] Administration Ondansetron HCl 4 mg 06/21/18 15:01 Zofran Inj* IV Q6H PRN NAUSEA Prednisone 50 mg 06/25/18 09:00 06/26/18 08:25 Deltasone Tab* PO 50 mg DAILY [facility] Administration Pregabalin 25 mg 06/22/18 09:00 06/26/18 08:25 Lyrica Cap(*) PO 25 mg DAILY [facility] Administration Pregabalin 50 mg 06/21/18 21:00 06/25/18 20:05 Lyrica Cap(*) PO 50 mg BEDTIME [facility]INO Administration Senna 1 tab 06/21/18 15:06 Senokot Tab* PO DAILY PRN CONSTIPATION Vital Signs Temp Pulse Resp BP Pulse Ox 98.3 F 81 18 138/74 97 06/26/18 16:03 06/26/18 16:03 06/26/18 16:03 06/26/18 16:03 06/26/18 16:03 O/E: Pt in NAD, sititng up in chair HEENT: PERRLA, no JVD Lungs: Diminished air entry b/l, scattered wheeze+ CVS: S1, S2+, regular Abd: Soft, BS+, NT Ext: Normal ROM Skin: No rash Neuro: Alert, awake, No focal deficits Labs: No new labs I/R: 78 y o f with h/o severe COPD, recurrent exacerbations recently, noted to have sys CHF, , was admitted with worsening SOB, being treated for acute COPD exacerbation and acute sys CHF Pt with sick contact recently, suspect viral bronchitis causing acute COPD exacerbation Pt slightly worse today, doesnot appear to be in fluid overload Wheeze and tightness are improving Not in fluid overload at this time Prednisone was changed to oral not sure if that affected her breathing More dyspneic with ambualtion c/w diuretic Titrate FiO2 as tolerated, currently requiring 3L at rest and 3.5 with activity OOB to chair as tolerated Pt not in favor of BiPAP or palliative care approach Pt would beneift from rehab, doesnot want to go to inpt rehab Possible d/c in am if stable
[2018-06-26] MEDS: Atorvastatin* 10 MG TAB PO SCH (20:40)
[2018-06-26] MEDS: Pregabalin CAP(*) 50 MG PO SCH (20:40)
[2018-06-26] MEDS: Enoxaparin(*) 40 MG/0.4 ML SYR SUBCUT SCH (20:40)
--- NOTE | 2018-06-26 20:56 | PN ---
Subjective Interval History: Pt is back to home O2 supplement of 3L. Still feels very short on walking and requests to have eval by PT/OT before leaving. Family History: Unchanged from Admission Social History: Unchanged from Admission Past Medical History: Unchanged from Admission Objective Active Medications: Acetaminophen (Tylenol Tab*) 650 mg PO Q6H PRN PRN Reason: FEVER/PAIN Albuterol (Ventolin 2.5 Mg/3 Ml Neb.Lisandra*) 2.5 mg INH Q2H PRN PRN Reason: SOB/WHEEZING Last Admin: 06/26/18 15:22 Dose: 2.5 mg Ascorbic Acid (Vitamin C Tab*) 1,000 mg PO DAILY [facility] Last Admin: 06/26/18 08:25 Dose: 1,000 mg Aspirin (Aspirin Ec Tab*) 81 mg PO DAILY [facility] Last Admin: 06/26/18 08:25 Dose: 81 mg Atorvastatin Calcium (Lipitor*) 10 mg PO BEDTIME [facility] Last Admin: 06/26/18 20:40 Dose: 10 mg Benzonatate (Tessalon Cap*) 100 mg PO BID PRN PRN Reason: COUGH Last Admin: 06/23/18 00:11 Dose: 100 mg Cetirizine HCl (Zyrtec*) 10 mg PO DAILY PRN PRN Reason: Allergy Symptoms Cholecalciferol (Vitamin D Tab*) 400 unit PO DAILY [facility] Last Admin: 06/26/18 08:25 Dose: 400 unit Doxycycline Hyclate (Vibramycin Cap(*)) 100 mg PO BID [facility] Stop: 06/28/18 21:01 Last Admin: 06/26/18 20:40 Dose: 100 mg Enoxaparin Sodium (Lovenox(*)) 40 mg SUBCUT BEDTIME [facility] Last Admin: 06/26/18 20:40 Dose: 40 mg Furosemide (Lasix Tab*) 20 mg PO DAILY [facility] Last Admin: 06/26/18 08:24 Dose: 20 mg Guaifenesin (Mucinex*) 1,200 mg PO BID [facility] Last Admin: 06/26/18 20:40 Dose: 1,200 mg Lorazepam (Ativan Tab(*)) 0.5 mg PO Q6H PRN PRN Reason: ANXIETY Last Admin: 06/23/18 00:15 Dose: 0.5 mg Losartan Potassium (Cozaar Tab*) 50 mg PO DAILY [facility] Last Admin: 06/26/18 08:25 Dose: 50 mg Mometasone Furoate/Formoterol Fumar (Dulera 200/5 Mdi*) 2 puff INH BID [facility]; Protocol Last Admin: 06/26/18 19:46 Dose: 2 puff Multivitamins/Minerals (Theragran/Minerals Tab*) 1 tab PO DAILY [facility] Last Admin: 06/26/18 08:25 Dose: 1 tab Ondansetron HCl (Zofran Inj*) 4 mg IV Q6H PRN PRN Reason: NAUSEA Prednisone (Deltasone Tab*) 50 mg PO DAILY [facility] Last Admin: 06/26/18 08:25 Dose: 50 mg Pregabalin (Lyrica Cap(*)) 25 mg PO DAILY [facility] Last Admin: 06/26/18 08:25 Dose: 25 mg Pregabalin (Lyrica Cap(*)) 50 mg PO BEDTIME [facility] Last Admin: 06/26/18 20:40 Dose: 50 mg Senna (Senokot Tab*) 1 tab PO DAILY PRN PRN Reason: CONSTIPATION Vital Signs - 8 hr 06/26/18 06/26/18 06/26/18 15:23 16:03 19:47 Temperature 98.3 F Pulse Rate 80 81 72 Respiratory 18 18 20 Rate Blood Pressure 138/74 (mmHg) O2 Sat by Pulse 99 97 98 Oximetry 06/26/18 20:40 Temperature Pulse Rate Respiratory 18 Rate Blood Pressure (mmHg) O2 Sat by Pulse Oximetry Oxygen Devices in Use Now: Nasal Cannula Appearance: appears well, speaking in full sentences, eating lunch in chair Neck: Trachea Midline Respiratory: - - poor air movement and diffuse wheeze now mild (improved) Cardiovascular: RRR Abdominal: NL Sounds; No Tenderness; No Distention Extremities: No Edema Result Diagrams: 06/24/18 05:15 06/25/18 05:28 Microbiology and Other Data: Microbiology 06/21/18 11:28 Aerobic Blood Culture - Preliminary Blood Venous No Growth Day 1 Anaerobic Blood Culture - Preliminary No Growth Day 1 06/21/18 11:38 Aerobic Blood Culture - Preliminary Blood Venous No Growth Day 1 Anaerobic Blood Culture - Preliminary No Growth Day 1 06/21/18 11:38 Influenza Types A,B Antigen - Final Nasal Specimen received for Influenza A/B Molecular testing Assess/Plan/Problems-Billing Assessment: 78yo F with PMH of COPD on 4L home O2, HFrEF 40-45%, AAA, colon cancer s/p resection/chemo, presents with subacute progressive dyspnea, productive cough, and LE edema. She was found with hypoxia and temperature max 100.1 F, no leukocytosis or left shift, BNP 321 (obese, no baseline), and CXR with pulm edema. - Patient Problems (1) COPD exacerbation Comment: Recent sick contact with daughter who had viral URI. - Continue on Doxycycline as planned - last day 06/30 - Continue steroid taper and bronchodilators. (2) Congestive heart failure (CHF) Comment: - Previous EF 25-30% (Mar 2018), now 40-45%. - cont furosemide PO. - on ASA and statin - pt with nonobstructive CAD on cath 04/2018 (3) HTN (hypertension) Comment: - cont formulary ARB (4) Obesity (BMI 30-39.9) Comment: BMI 37.6. (5) Anxiety Comment: cont home lorazepam prns and monitor respiratory status closely (6) Neuropathy Comment: cont home Lyrica (7) DVT prophylaxis Comment: - Lovenox Status and Disposition: Inpatient. LIkely home tomorrow morning.
[2018-06-27] MEDS: Mometasone/Formoter 200/5 MDI INH SCH ×2 (08:35→22:53)
[2018-06-27] MEDS: Cholecalciferol TAB* 400 UNIT PO SCH (10:00)
[2018-06-27] MEDS: Aspirin EC TAB* 81 MG TAB.EC PO SCH (10:00)
[2018-06-27] MEDS: Ascorbic Acid TAB* 500 MG PO SCH (10:18)
[2018-06-27] MEDS: Multivitamins/Minerals TAB PO SCH (10:18)
[2018-06-27] MEDS: guaiFENesin ER TAB 600 MG PO SCH ×2 (10:18→20:38)
[2018-06-27] MEDS: Pregabalin CAP(*) 25 MG PO SCH (10:18)
[2018-06-27] MEDS: Furosemide TAB* 20 MG PO SCH (10:19)
[2018-06-27] MEDS: DOXYcycline CAP(*) 100 MG PO SCH ×2 (10:19→20:38)
[2018-06-27] MEDS: Losartan TAB* 25 MG PO SCH (10:20)
[2018-06-27] MEDS: predniSONE TAB* 20 MG PO SCH (10:20)
[2018-06-27] MEDS: Albuterol 2.5 MG/3 ML NEB.SOL* (0.083%) INH PRN ×2 (12:59→21:52)
--- NOTE | 2018-06-27 16:41 | PN ---
Progress Note - Progress Note Date of Service: 06/27/18 - Pulm f/u note Note: Pt seen and examined at bedside. Pt reports feeling better, has mild intermittent cough. No acute events o/n Active Medications Generic Name Dose Route Start Last Admin Trade Name Freq PRN Reason Stop Dose Admin Acetaminophen 650 mg 06/21/18 15:01 Tylenol Tab* PO Q6H PRN FEVER/PAIN Albuterol 2.5 mg 06/22/18 16:59 06/27/18 12:59 Ventolin 2.5 Mg/3 Ml Neb.Lisandra* INH 2.5 mg Q2H PRN Administration SOB/WHEEZING Ascorbic Acid 1,000 mg 06/22/18 09:00 06/27/18 10:18 Vitamin C Tab* PO 1,000 mg DAILY VALENTINO Administration Aspirin 81 mg 06/22/18 09:00 06/27/18 10:00 Aspirin Ec Tab* PO 81 mg DAILY VALENTINO Administration Atorvastatin Calcium 10 mg 06/21/18 21:00 06/26/18 20:40 Lipitor* PO 10 mg BEDTIME VALENTINO Administration Benzonatate 100 mg 06/21/18 15:01 06/23/18 00:11 Tessalon Cap* PO 100 mg BID PRN Administration COUGH Cetirizine HCl 10 mg 06/21/18 15:06 Zyrtec* PO DAILY PRN Allergy Symptoms Cholecalciferol 400 unit 06/22/18 09:00 06/27/18 10:00 Vitamin D Tab* PO 400 unit DAILY VALENTINO Administration Doxycycline Hyclate 100 mg 06/24/18 21:00 06/27/18 10:19 Vibramycin Cap(*) PO 06/28/18 21:01 100 mg BID VALENTINO Administration Enoxaparin Sodium 40 mg 06/22/18 21:00 06/26/18 20:40 Lovenox(*) SUBCUT 40 mg BEDTIME VALENTINO Administration Furosemide 20 mg 06/26/18 09:00 06/27/18 10:19 Lasix Tab* PO 20 mg DAILY VALENTINO Administration Guaifenesin 1,200 mg 06/21/18 21:00 06/27/18 10:18 Mucinex* PO 1,200 mg BID VALENTINO Administration Lorazepam 0.5 mg 06/21/18 15:06 06/23/18 00:15 Ativan Tab(*) PO 0.5 mg Q6H PRN Administration ANXIETY Losartan Potassium 50 mg 06/22/18 09:00 06/27/18 10:20 Cozaar Tab* PO 50 mg DAILY VALENTINO Administration Mometasone Furoate/Formoterol Fumar 2 puff 06/21/18 21:00 06/27/18 08:35 Dulera 200/5 Mdi* INH 2 puff BID VALENTINO Administration Protocol Multivitamins/Minerals 1 tab 06/22/18 09:00 06/27/18 10:18 Theragran/Minerals Tab* PO 1 tab DAILY VALENTINO Administration Ondansetron HCl 4 mg 06/21/18 15:01 Zofran Inj* IV Q6H PRN NAUSEA Prednisone 40 mg 06/27/18 09:00 06/27/18 10:20 Deltasone Tab* PO 40 mg DAILY VALENTINO Administration Pregabalin 25 mg 06/22/18 09:00 06/27/18 10:18 Lyrica Cap(*) PO 25 mg DAILY VALENTINO Administration Pregabalin 50 mg 06/21/18 21:00 06/26/18 20:40 Lyrica Cap(*) PO 50 mg BEDTIME VALENTINO Administration Senna 1 tab 06/21/18 15:06 Senokot Tab* PO DAILY PRN CONSTIPATION Vital Signs Temp Pulse Resp BP Pulse Ox 97.5 F 79 20 142/83 98 06/27/18 14:36 06/27/18 14:36 06/27/18 14:41 06/27/18 14:36 06/27/18 14:36 O/E: Pt in NAD, sititng up in recliner HEENT: PERRLA, no JVD, mucus membranes moist Lungs: Diminished air entry b/l, scattered wheeze+, improved from yesterday CVS: S1, S2+, regular Abd: Obese, Soft, BS+, NT Ext: Normal ROM Skin: No rash Neuro: Alert, awake, No focal deficits Labs: nO new labs I/R: 78 y o f with h/o severe COPD, recurrent exacerbations recently, noted to have sys CHF, , was admitted with worsening SOB, being treated for acute COPD exacerbation and acute sys CHF Pt with sick contact recently, suspect viral bronchitis causing acute COPD exacerbation Wheeze and tightness are improving Not in fluid overload at this time c/w Prednisone taper c/w diuretic Titrate FiO2 as tolerated OOB to chair as tolerated Pt would like to walk around, d/w RN Pt not in favor of BiPAP or palliative care approach Pt would beneift from rehab, doesnot want to go to inpt rehab Possible d/c in am if stable
--- NOTE | 2018-06-27 17:21 | PN ---
Subjective Interval History: Pt able to work with PT and seems to be at baseline but she is again refusing to go home. States her aide will not be there until tomorrow afternoon and that her daughter is busy. Refuses cab. Doesn't have a plan for what she will do at home when her daughter is busy and aide isn't around. Family History: Unchanged from Admission Social History: Unchanged from Admission Past Medical History: Unchanged from Admission Objective Active Medications: Acetaminophen (Tylenol Tab*) 650 mg PO Q6H PRN PRN Reason: FEVER/PAIN Albuterol (Ventolin 2.5 Mg/3 Ml Neb.Lisandra*) 2.5 mg INH Q2H PRN PRN Reason: SOB/WHEEZING Last Admin: 06/27/18 12:59 Dose: 2.5 mg Ascorbic Acid (Vitamin C Tab*) 1,000 mg PO DAILY [facility] Last Admin: 06/27/18 10:18 Dose: 1,000 mg Aspirin (Aspirin Ec Tab*) 81 mg PO DAILY [facility] Last Admin: 06/27/18 10:00 Dose: 81 mg Atorvastatin Calcium (Lipitor*) 10 mg PO BEDTIME [facility] Last Admin: 06/26/18 20:40 Dose: 10 mg Benzonatate (Tessalon Cap*) 100 mg PO BID PRN PRN Reason: COUGH Last Admin: 06/23/18 00:11 Dose: 100 mg Cetirizine HCl (Zyrtec*) 10 mg PO DAILY PRN PRN Reason: Allergy Symptoms Cholecalciferol (Vitamin D Tab*) 400 unit PO DAILY [facility] Last Admin: 06/27/18 10:00 Dose: 400 unit Doxycycline Hyclate (Vibramycin Cap(*)) 100 mg PO BID [facility] Stop: 06/28/18 21:01 Last Admin: 06/27/18 10:19 Dose: 100 mg Enoxaparin Sodium (Lovenox(*)) 40 mg SUBCUT BEDTIME VALENTINO Last Admin: 06/26/18 20:40 Dose: 40 mg Furosemide (Lasix Tab*) 20 mg PO DAILY [facility] Last Admin: 06/27/18 10:19 Dose: 20 mg Guaifenesin (Mucinex*) 1,200 mg PO BID [facility] Last Admin: 06/27/18 10:18 Dose: 1,200 mg Lorazepam (Ativan Tab(*)) 0.5 mg PO Q6H PRN PRN Reason: ANXIETY Last Admin: 06/23/18 00:15 Dose: 0.5 mg Losartan Potassium (Cozaar Tab*) 50 mg PO DAILY [facility] Last Admin: 06/27/18 10:20 Dose: 50 mg Mometasone Furoate/Formoterol Fumar (Dulera 200/5 Mdi*) 2 puff INH BID [facility]; Protocol Last Admin: 06/27/18 08:35 Dose: 2 puff Multivitamins/Minerals (Theragran/Minerals Tab*) 1 tab PO DAILY [facility] Last Admin: 06/27/18 10:18 Dose: 1 tab Ondansetron HCl (Zofran Inj*) 4 mg IV Q6H PRN PRN Reason: NAUSEA Prednisone (Deltasone Tab*) 40 mg PO DAILY [facility] Last Admin: 06/27/18 10:20 Dose: 40 mg Pregabalin (Lyrica Cap(*)) 25 mg PO DAILY [facility] Last Admin: 06/27/18 10:18 Dose: 25 mg Pregabalin (Lyrica Cap(*)) 50 mg PO BEDTIME [facility] Last Admin: 06/26/18 20:40 Dose: 50 mg Senna (Senokot Tab*) 1 tab PO DAILY PRN PRN Reason: CONSTIPATION Vital Signs - 8 hr 06/27/18 06/27/18 06/27/18 10:18 11:46 13:01 Temperature 98.3 F Pulse Rate 74 83 Respiratory 20 18 18 Rate Blood Pressure 138/58 (mmHg) O2 Sat by Pulse 100 93 Oximetry 06/27/18 06/27/18 14:36 14:41 Temperature 97.5 F Pulse Rate 79 Respiratory 20 Rate Blood Pressure 142/83 (mmHg) O2 Sat by Pulse 98 Oximetry Oxygen Devices in Use Now: Nasal Cannula Appearance: well appearing, no longer coughing on interview Respiratory: - - wheezing and air movement significantly improved Cardiovascular: RRR Abdominal: NL Sounds; No Tenderness; No Distention Extremities: No Edema Result Diagrams: 06/24/18 05:15 06/25/18 05:28 Microbiology and Other Data: Microbiology 06/21/18 11:28 Aerobic Blood Culture - Preliminary Blood Venous No Growth Day 1 Anaerobic Blood Culture - Preliminary No Growth Day 1 06/21/18 11:38 Aerobic Blood Culture - Preliminary Blood Venous No Growth Day 1 Anaerobic Blood Culture - Preliminary No Growth Day 1 06/21/18 11:38 Influenza Types A,B Antigen - Final Nasal Specimen received for Influenza A/B Molecular testing Assess/Plan/Problems-Billing Assessment: 78yo F with PMH of COPD on 4L home O2, HFrEF 40-45%, AAA, colon cancer s/p resection/chemo, presents with subacute progressive dyspnea, productive cough, and LE edema. She was found with hypoxia and temperature max 100.1 F, no leukocytosis or left shift, BNP 321 (obese, no baseline), and CXR with pulm edema. - Patient Problems (1) COPD exacerbation Comment: Recent sick contact with daughter who had viral URI. - Continue on Doxycycline as planned - last day 06/30 - Continue steroid taper and bronchodilators. (2) Congestive heart failure (CHF) Comment: - Previous EF 25-30% (Mar 2018), now 40-45%. - cont furosemide PO. - on ASA and statin - pt with nonobstructive CAD on cath 04/2018 (3) HTN (hypertension) Comment: - cont formulary ARB (4) Obesity (BMI 30-39.9) Comment: BMI 37.6. (5) Anxiety Comment: cont home lorazepam prns and monitor respiratory status closely (6) Neuropathy Comment: cont home Lyrica (7) DVT prophylaxis Comment: - Lovenox Status and Disposition: Inpatient. LIkely home tomorrow morning.
[2018-06-27] MEDS: Atorvastatin* 10 MG TAB PO SCH (20:38)
[2018-06-27] MEDS: Pregabalin CAP(*) 50 MG PO SCH (20:38)
[2018-06-27] MEDS: Enoxaparin(*) 40 MG/0.4 ML SYR SUBCUT SCH (20:39)
[2018-06-28] MEDS: Albuterol 2.5 MG/3 ML NEB.SOL* (0.083%) INH PRN ×2 (05:26→13:06)
[2018-06-28] MEDS: predniSONE TAB* 20 MG PO SCH (08:40)
[2018-06-28] MEDS: Losartan TAB* 25 MG PO SCH (08:41)
[2018-06-28] MEDS: Pregabalin CAP(*) 25 MG PO SCH (08:41)
[2018-06-28] MEDS: Furosemide TAB* 20 MG PO SCH (08:41)
[2018-06-28] MEDS: guaiFENesin ER TAB 600 MG PO SCH (08:41)
[2018-06-28] MEDS: Cholecalciferol TAB* 400 UNIT PO SCH (08:41)
[2018-06-28] MEDS: Aspirin EC TAB* 81 MG TAB.EC PO SCH (08:42)
[2018-06-28] MEDS: Multivitamins/Minerals TAB PO SCH (08:42)
[2018-06-28] MEDS: Ascorbic Acid TAB* 500 MG PO SCH (08:42)
[2018-06-28] MEDS: DOXYcycline CAP(*) 100 MG PO SCH (08:42)
[2018-06-28] MEDS: Mometasone/Formoter 200/5 MDI INH SCH (10:42)
[2018-06-28 12:31] VITALS: BP 133/73
--- NOTE | 2018-06-28 14:22 | DS ---
CC: Echo Rivero NP; Dr. Chester * DISCHARGE SUMMARY: DATE OF ADMISSION: 06/21/18 DATE OF DISCHARGE: 06/28/18 PRIMARY CARE PHYSICIAN: Echo Rivero NP PRIMARY DIAGNOSIS: Viral bronchitis complicated by chronic obstructive pulmonary disease exacerbation. SECONDARY DIAGNOSES: Heart failure, obesity. CONSULTS: Pulmonology, Dr. Chester. PERTINENT STUDIES: Chest x-ray showed elevated lung volumes, coarse, negative interstitial markings, bibasilar airspace consolidations with probable trace pleural effusions. Echocardiogram with mild concentric LVH, global hypokinesis of left ventricle with minor regional variation. The inferior inferoseptal segments may be relatively norm. Moderately decreased left ventricular systolic function, EF 40% to 45%, left atrium moderately dilated, right atrium mild to moderately dilated, right ventricle wall thickness mildly increased, moderate to severe aortic stenosis. HISTORY OF PRESENT ILLNESS: A 78-year-old woman with COPD and chronic hypoxic respiratory failure, on 4 L of oxygen at home; heart failure with reduced ejection fraction; morbid obesity; chronic pain; osteoporosis, who presented to the emergency department for subacute shortness of breath associated with cough with minor sputum production. She denied chest pain, nausea, vomiting. Her exercise tolerance was unchanged and her baseline orthopnea was unchanged. She also noticed increased swelling in her lower extremities over the past few days. She reports eating high salt foods recently and also having a sick contact. Her daughter had a recent viral respiratory illness. HOSPITAL COURSE: In the emergency department, the patient required 5 L oxygen via mask and was noted to be tachycardic with temperature of 100.1. She was given IV furosemide with IV steroids and nebulizer treatments. She had resultant low blood pressure, so her Lasix was switched back to her home dose and she was thought to be euvolemic by next morning. She was actually started on oral prednisone. She was started on antibiotics for empiric treatment of community-acquired pneumonia, although her chest x-ray was not concerning and she had no other infectious signs or symptoms besides low grade fever. She was admitted to Medicine and had quick improvement to baseline home O2 requirements with severe dyspnea on exertion when working with Physical Therapy. Given low suspicion for bacterial infection of her lung, ceftriaxone was stopped and she was continued on doxycycline for COPD exacerbation. She was evaluated by Pulmonology who thought that this presentation was most consistent with the COPD exacerbation from viral bronchitis. She was deemed ready for discharge by 06/25/18, although she had been refusing discharge, was scared to return home without her aide being at her home. She declined placement to a nursing facility or rehab. She continued to work with PT and was able to ambulate on the floors, but continued to refuse to go home until today, Sunday, when she knew her aide would be at her home in the afternoon. On her day of discharge, she reports some dyspnea on exertion, but feels back to her baseline at home. Her cough has significantly improved. Otherwise, 10-point review of systems is negative. PHYSICAL EXAMINATION: Afebrile. Heart rate 80s, blood pressure 129/68, O2 saturation 98% on 3 L. Well-appearing, reclining in chair, listening to music on iPad. Heart: Regular rate and rhythm. No murmurs, gallops, or rubs. Lungs : Clear to auscultation bilaterally. Abdomen: Soft, nontender, nondistended. Lower Extremities: No edema, warm, and well perfused. DISCHARGE PLAN: She is to follow up with her PCP within 1 to 2 weeks of discharge. She will continue on doxycycline and prednisone to complete short course of these medications. She was instructed to return and seek urgent medical care if she develops new fever or worsening respiratory symptoms. She was also educated to follow a low salt, healthy diet, low in processed foods, and resume her normal level of activity. [facility] will evaluate her at home for home physical therapy services. MEDICATIONS ON DISCHARGE: 1. Doxycycline 100 mg twice a day for 2 more days. 2. Prednisone 30 mg daily for 2 days, then 20 mg for 2 days, then 10 mg for 2 days. 3. Symbicort 2 puffs twice a day. 4. Albuterol as needed. 5. Denosumab 60 mg subcutaneously. 6. Lorazepam 0.5 mg as needed. 7. Irbesartan 150 mg daily. 8. Furosemide 20 mg daily. 9. Salsalate 500 mg twice a day. 10. Pregabalin 25 in the morning, 50 mg at night. 11. Loratadine 10 daily. 12. Aspirin 81 daily. 13. Simvastatin 20 mg daily. 14. Multiple vitamins. 15. Senna as needed. TIME SPENT: Approximately 60 minutes was spent on discharge of this patient, more than half of which was spent with care, coordination at bedside, for interview and exam. [id number]/CPS #: [id number] EULALIO
== END 2018-06-28 13:50 | disposition home health service (06) | DRG 190 ==
LOC: ED 11:15 → MEDTELE 15:01 → MED 06-26 23:05
PROVIDERS: ADMIT Student in an Organized Health Care Education/Training Program; ATTEND Internal Medicine
DX: J44.1 Chronic obstructive pulmonary disease with (acute) exacerbation (principal); I50.23 Acute on chronic systolic (congestive) heart failure; J96.21 Acute and chronic respiratory failure with hypoxia; I11.0 Hypertensive heart disease with heart failure; J44.0 Chronic obstructive pulmonary disease with (acute) lower respiratory infection; I71.4 Abdominal aortic aneurysm, without rupture; E78.00 Pure hypercholesterolemia, unspecified; M81.0 Age-related osteoporosis without current pathological fracture; M19.90 Unspecified osteoarthritis, unspecified site; G43.909 Migraine, unspecified, not intractable, without status migrainosus; H26.9 Unspecified cataract; Z96.642 Presence of left artificial hip joint; I25.10 Atherosclerotic heart disease of native coronary artery without angina pectoris; E78.5 Hyperlipidemia, unspecified; G62.9 Polyneuropathy, unspecified; F41.9 Anxiety disorder, unspecified; J20.8 Acute bronchitis due to other specified organisms; I35.0 Nonrheumatic aortic (valve) stenosis; E66.01 Morbid (severe) obesity due to excess calories; Z79.51 Long term (current) use of inhaled steroids; Z85.038 Personal history of other malignant neoplasm of large intestine; Z92.21 Personal history of antineoplastic chemotherapy; Z68.37 Body mass index [BMI] 37.0-37.9, adult; Z80.0 Family history of malignant neoplasm of digestive organs; Z82.49 Family history of ischemic heart disease and other diseases of the circulatory system; Z82.5 Family history of asthma and other chronic lower respiratory diseases; Z87.891 Personal history of nicotine dependence; Z91.041 Radiographic dye allergy status; Z88.5 Allergy status to narcotic agent; Z88.0 Allergy status to penicillin; Z88.8 Allergy status to other drugs, medicaments and biological substances; Z91.018 Allergy to other foods
CPT/HCPCS: 36415; 36600; 71045; 71046; 80048; 80053; 81003; 82803; 83605; 83735; 83880; 84145; 84484; 85025; 87040; 93005; 93306; 94640; 99283; A9270-GY; C8929; G8978-GP-CK; G8979-GP-CI; G8987-GO-CJ; G8988-GO-CJ; J0696; J1644; J1650; J1940; J2920; J7512

== ENCOUNTER 2018-07-12 10:21 | Inpatient (IN) | payer MEDICARE, BC ==
[2018-07-12] MEDS ORDERED: Dexamethasone IV* 4 MG/ML 1 ML (4 MG) IV SLOW PU ONE (10:32)
[2018-07-12] MEDS ORDERED: Albuterol/Ipratropium NEB.SOL* Albuterol 2.5 MG/Ipratropium 0.5 MG 3 ML INH ONE (10:40)
[2018-07-12] MEDS ORDERED: Albuterol/Ipratropium NEB.SOL* Albuterol 2.5 MG/Ipratropium 0.5 MG 3 ML ONE (10:43)
[2018-07-12] MEDS ORDERED: Albuterol 2.5 MG/3 ML NEB.SOL* (0.083%) INH ONE (10:53)
--- NOTE | 2018-07-12 10:53 | ED ---
Shortness of Breath - HPI Summary HPI Summary: Pt is a 78 y/o F presenting to the ED brought in by EMS for shortness of breath. Per EMS, upon arrival her SOB was not super significant but it was labored. She has been home for one week after being hospitalized for pneumonia and her [employer] PHYSICIST reported to EMS that she had bilateral wheezes and diminished breath sounds. She has oxygen at home. The pt states she feels somewhat better than when she was picked up by EMS, but does have associated chest pain and cough. Pt denies any weight gain, fever, chills, erythema of eyes, sore throat, producing phlegm with her cough, abdominal pain, N/V, dysuria, hematuria, myalgia, edema, rash, or dizziness. - History of Current Complaint Chief Complaint: EDShortnessOfBreath Time Seen by Provider: 07/12/18 10:22 Hx Obtained From: Patient, EMS Onset/Duration: Gradual Onset, Lasting Days, Still Present Timing: Constant Current Severity: Moderate Dyspnea At: Rest Aggrevating Factors: Movement, Deep Breaths Alleviating Factors: EMS Tx, Oxygen Associated Signs & Symptoms: Cough (Productive), Wheezing - Allergy/Home Medications Allergies/Adverse Reactions: Allergies Allergy/AdvReac Type Severity Reaction Status Date / Time Adhesive Tape Allergy REDDENED Verified 03/18/18 02:12 SKIN codeine Allergy Hives Verified 03/18/18 02:12 iodine Allergy Rash Verified 03/18/18 02:12 Penicillins Allergy Hives Verified 03/18/18 02:12 pineapple AdvReac MOUTH SORE Verified 07/12/18 15:09 tiotropium AdvReac HOARSENESS, Verified 07/12/18 15:09 [From Spiriva with TICKLE IN HandiHaler] THROAT raisins Allergy GI Upset Uncoded 03/18/18 02:12 PMH/Surg Hx/FS Hx/Imm Hx Previously Healthy: Yes Endocrine/Hematology History: Denies: Hx Anticoagulant Therapy, Hx Diabetes, Hx Thyroid Disease Cardiovascular History: Reports: Hx Aneurysm - AAA diagnosed 05/28/17, Hx Congestive Heart Failure - LACIX, Hx Hypercholesterolemia, Hx Hypertension, Other Cardiovascular Problems/Disorders - HX OF LUNG SURG 2004 RIGHT SIDE. Respiratory History: Reports: Hx Asthma, Hx Chronic Obstructive Pulmonary Disease (COPD), Hx Pneumonia Denies: Hx Sleep Apnea GI History: Reports: Other GI Disorders - Colon CA, current constipation Denies: Hx Ulcer History: Reports: Other Problems/Disorders - Bladder smaller from colon Denies: Hx Dialysis, Hx Renal Disease Musculoskeletal History: Reports: Hx Arthritis, Hx Back Problems, Hx Orthopedic Injury, Hx Osteoporosis, Hx Tendonitis Denies: Hx Bursitis, Hx Scoliosis Sensory History: Reports: Hx Cataracts, Hx Contacts or Glasses Denies: Hx Glaucoma, Hx Hearing Aid, Hx Hearing Problem, Other Sensory Impairments Opthamlomology History: Reports: Hx Cataracts, Hx Contacts or Glasses Denies: Hx Glaucoma, Other Sensory Impairments Neurological History: Reports: Hx Migraine - childhood migraines resolved at 22 years old, Other Neuro Impairments/Disorders - LEFT HIP SX X 2 MO AGO Denies: Hx Headaches, Hx Nerve Disease - Cancer History Cancer Type, Location and Year: COLON 2007, treated with Chemo Hx Chemotherapy: Yes Hx Radiation Therapy: No - Surgical History Surgery Procedure, Year, and Place: Empyema removal 1983, Broken elbow left repair ORIF (plate) Apr 1999 and later hardware removal Colon cancer dx 2007, colon resection. Hernia repair 2009 Partial L Hip Replacement September 2012 Hx Anesthesia Reactions: No - Immunization History Date of Tetanus Vaccine: utd Date of Influenza Vaccine: fall 2017 Infectious Disease History: No Infectious Disease History: Denies: Hx Hepatitis, Hx Human Immunodeficiency Virus (HIV), History Other Infectious Disease, Traveled Outside the [place] in Last 30 Days - Family History Known Family History: Positive: Cardiac Disease, Respiratory Disease, Other - Aortic aneurysm Negative: Blood Disorder - Social History Alcohol Use: None Alcohol Amount: 1 GLASS OF WINE DAILY Hx Substance Use: No Substance Use Type: Reports: None Hx Tobacco Use: Yes Smoking Status (MU): Former Smoker Amount Used/How Often: 1 1/2 PPD X 30 YEARS Have You Smoked in the Last Year: No Review of Systems Negative: Fever, Chills, Other - weight gain Negative: Erythema Negative: Sore Throat Positive: Chest Pain Positive: Shortness Of Breath, Cough. Negative: Other - producing phlegm with cough Negative: Abdominal Pain, Vomiting, Nausea Negative: dysuria, hematuria Negative: Myalgia, Edema Negative: Rash Neurological: Negative - dizziness All Other Systems Reviewed And Are Negative: Yes Physical Exam - Summary Physical Exam Summary: Constitutional: Well-developed, Well-nourished, Alert. (-) Distressed Skin: Warm, Dry HENT: Normocephalic; Atraumatic Eyes: Conjunctiva normal Neck: Musculoskeletal ROM normal neck. (-) JVD, (-) Stridor, (-) Tracheal deviation Cardio: Rhythm regular, rate normal, Heart sounds normal; Intact distal pulses; The pedal pulses are 2+ and symmetric. Radial pulses are 2+ and symmetric. (-) Murmur Pulmonary/Chest wall: Appears tachypinic. Diminished breath sounds. (-) Respiratory distress, (+) Bilateral wheezes, (-) Rales Abd: Soft, (-) tenderness, (-) Distension, (-) Guarding, (-) Rebound Musculoskeletal: (-) Edema Lymph: (-) Cervical adenopathy Neuro: Alert, Oriented x3 Psych: Mood and affect Normal Triage Information Reviewed: Yes Vital Signs On Initial Exam: Initial Vitals Temp Pulse Resp BP Pulse Ox 97.9 F 97 20 149/73 100 07/12/18 10:26 07/12/18 10:26 07/12/18 10:26 07/12/18 10:26 07/12/18 10:26 Vital Signs Reviewed: Yes Diagnostics - Vital Signs Vital Signs Temp Pulse Resp BP Pulse Ox 07/12/18 10:29 90 15 149/73 100 07/12/18 10:28 91 15 100 07/12/18 10:26 97.9 F 97 20 149/73 100 - Laboratory Result Diagrams: 07/15/18 05:52 07/15/18 05:49 Lab Statement: Any lab studies that have been ordered have been reviewed, and results considered in the medical decision making process. - Radiology CXR Radiology Interpretation Completed By: Radiologist Summary of Radiographic Findings: 1. CARDIOMEGALY. 2. PULMONARY INTERSTITIAL EDEMA. 3. PATCHY ATELECTASIS VERSUS CONSOLIDATION OF THE RIGHT LOWER LUNG. ED physician has reviewed this report. - EKG 1036 Cardiac Rate: NL - 84bpm EKG Rhythm: Sinus Rhythm ST Segment: Normal Ectopy: None Summary of EKG Findings: No STEMI. Re-Evaluation - Re-Evaluation 1st re-eval Re-Evaluation Time: 12:30 Change: Unchanged Comment: Pt states she is somewhat improved but does not feel comfortable going home. She is still mildly tachypnic. Course/Dx - Course Course Of Treatment: Pt is a 78 y/o F presenting to the ED brought in by EMS for shortness of breath. She has been home for one week after being hospitalized for pneumonia and her [employer] PHYSICIST reported to EMS that she had bilateral wheezes and diminished breath sounds. Pt denies any weight gain, fever, chills, erythema of eyes, sore throat, producing phlegm with her cough, abdominal pain, N/V, dysuria, hematuria, myalgia, edema, rash, or dizziness. The pt states she feels somewhat better than when she was picked up by EMS, but does have associated chest pain and cough. An EKG at 1036 shows NSR at 84bpm with no STEMI. CXR shows: 1. CARDIOMEGALY. 2. PULMONARY INTERSTITIAL EDEMA. 3. PATCHY ATELECTASIS VERSUS CONSOLIDATION OF THE RIGHT LOWER LUNG. Pt states she is somewhat improved but does not feel comfortable going home. She is still mildly tachypnic. The pt will be admitted under Dr. Johnson with dx including CHF exacerbation, COPD exacerbation, and pulmonary edema. The pt is agreeable with this plan. - Diagnoses Provider Diagnoses: COPD exacerbation, CHF exacerbation, Pulmonary edema Discharge - Sign-Out/Discharge Documenting (check all that apply): Patient Departure - Discharge Plan Condition: Stable Disposition: ADMITTED TO [facility] - Billing Disposition and Condition Condition: STABLE Disposition: Admitted to [facility] - Attestation Statements Document Initiated by Tonyibe: Yes Documenting Scribe: Tiffany Borja Provider For Whom Tonyibe is Documenting (Include Credential): Carlos Rhodes MD. Scribe Attestation: Tiffany Gant, scribed for Carlos Rhodes MD. on 07/15/18 at 1045. Scribe Documentation Reviewed: Yes Provider Attestation: The documentation as recorded by the [email or web address] accurately reflects the service I personally performed and the decisions made by me, Carlos Rhodes MD. Status of Scribe Document: Viewed Consult Consult: [id number] - Spoke with Dr. Johnson about the pt's condition. He will be accepting the pt to [facility].
[2018-07-12 10:56] LABS: ABS Basophils 0 10^3/ul (0-0.2); ABS Eosinophils 0.2 10^3/ul (0-0.6); ABS Lymphocytes 0.5 10^3/ul (1.0-4.8); ABS Monocytes 0.8 10^3/ul (0-0.8); ABS Neutrophils 4.5 10^3/ul (1.5-7.7); ABS Nucleated RBC 0 10^3/ul; Eosinophil % 3.3 %; Hematocrit 33 % (33-41); Lymphocyte % 8.5 %; Mean Corpuscular HGB Conc 34 g/dL (31-36); Mean Corpuscular Hemoglobin 32 pg (27-31); Mean Corpuscular Volume 94 fL (80-97); Nucleated Red Blood Cells % 0; Platelet Count 160 10^3/uL (150-450); Red Cell Distribution Width 13 % (10.5-15)
[2018-07-12 11:17] LABS: Albumin 3.6 g/dL (3.2-5.2); Albumin/Globulin Ratio 1.6 (1-3); BUN/Creatinine Ratio 23.1 (8-20); Calcium 9.1 mg/dL (8.6-10.3); EGFR African American 72.3 (>60); EGFR Non-African American 59.8 (>60); Globulin 2.3 g/dL (2-4); Potassium 4.5 mmol/L (3.5-5.0); Total Bilirubin 0.5 mg/dL (0.2-1.0); Total Protein 5.9 g/dL (6.4-8.9)
[2018-07-12 11:19] LABS: Troponin I 0.03 ng/mL (<0.04)
[2018-07-12] MEDS ORDERED: Furosemide IV* 10 MG/ML VIAL (40 MG) IV SLOW PU ONE (11:22)
[2018-07-12] MEDS ORDERED: Acetaminophen TAB* 325 MG PO PRN (14:48)
[2018-07-12] MEDS ORDERED: Senna TAB PO PRN (14:48)
[2018-07-12 15:15] LABS: Urine Appearance Clear; Urine Bilirubin Negative (Negative); Urine Blood Negative (Negative); Urine Color Straw; Urine Glucose Negative (Negative); Urine Ketones Negative (Negative); Urine Nitrite Negative (Negative); Urine Protein Negative (Negative); Urine Specific Gravity 1.006 (1.010-1.030); Urine Urobilinogen Negative (Negative)
[2018-07-12 15:40] LABS: Influenza A Molecular NEGATIVE (Negative); Influenza B Molecular NEGATIVE (Negative)
[2018-07-12 15:42] LABS: Magnesium 2.1 mg/dL (1.9-2.7)
--- NOTE | 2018-07-12 17:04 | HP ---
CC: Echo Rivero NP * HISTORY AND PHYSICAL: DATE OF ADMISSION: 07/12/18 PRIMARY CARE PROVIDER: Echo Rivero NP OUTPATIENT CAST IRON DIPPER: Dr. Shultz. OUTPATIENT CHIEF LIBRARIAN CIRCULATION DEPARTMENT: Dr. Chester. ATTENDING PHYSICIAN: Dr. Johnson * (dictated by Víctor Lima NP). CHIEF COMPLAINT: Shortness of breath x2 to 3 days. HISTORY OF PRESENT ILLNESS: Ms. Coburn is a 78-year-old female with a past medical history significant for COPD; chronic respiratory failure, on 4 L nasal cannula at all times; heart failure with reduced ejection fraction; CAD; hypertension, who presented to the emergency room today on 07/12/18 with complaints of shortness of breath. The patient reported that on Sunday, she was in her normal state of health. On Sunday, the patient started to have shortness of breath in the afternoon, but it was mild. On , she noticed to be a little better and was able to participate with PT. She reports that later night, she had to sleep in her recliner in order to breathe easily. She reports that this shortness of breath worsened today, therefore, the patient called 911 and was presented to the emergency room by EMS. It should be mentioned that the patient was recently admitted to our facility on and discharged on 06/28/18. Her primary diagnosis was viral bronchitis complicated by chronic obstructive pulmonary disease exacerbation. The patient was brought to the emergency room by EMS. Upon her arrival, the ED provider reports that she was short of breath with labored breathing. In addition, it was documented that the patient reported to EMS that she had chest pain, although when I asked her she denies chest pain. The patient also reports a cough that has been present since her admission in early June and is now less productive than previously. The patient reports shortness of breath is aggravated by any movement. The patient reports alleviating symptom is wearing her oxygen. The patient has been taking her medications regularly with the exception that she did not take any medications today. The patient does not weigh herself daily, but she reports that she weighed herself on Sunday and she was 207.4. The patient is unsure of her baseline weight. While in the emergency room, the patient had a chest x-ray, which was reported as cardiomegaly, pulmonary interstitial edema, patchy atelectasis versus consolidation of the right lower lung. The patient also had labs, which were fairly unremarkable besides a BNP of 382. While in the emergency room, the patient was also noted when she would transfer to the [facility], she would need additional oxygen; specifically, the patient would need her oxygen increased from 4 L, which is her baseline, to 6 L to maintain oxygen saturation above 90% . Given these constellation of symptoms and findings, the hospitalists were asked to admit the patient for further observation. PAST MEDICAL HISTORY: 1. COPD. 2. Chronic hypoxic respiratory failure, on 4 L nasal cannula at all times. 3. Heart failure with reduced ejection fraction. Last echocardiogram on , which revealed EF of 40% to 45%. 4. Coronary artery disease. The patient reports she had a cath on 05/05/18 that revealed 30% to 40% stenosis; therefore, no stent was placed. Denies history of RI. 5. Aortic stenosis. This was noted on recent echo and was documented as moderate- to-severe aortic stenosis. 6. Hypertension. 7. Aortic aneurysm. 8. Hyperlipidemia. 9. Peripheral neuropathy. 10. Osteoporosis. 11. History of colon cancer, status post resection and chemotherapy. PAST SURGICAL HISTORY: 1. Colon resection in 2007. 2. Left hip surgery x2. HOME MEDICATIONS: 1. Avapro 150 mg p.o. daily. 2. Advil 400 mg p.o. q.6 hours p.r.n. 3. Simvastatin 20 mg p.o. at bedtime. 4. Senokot 1 tab p.o. daily p.r.n. 5. Lyrica 50 mg p.o. at bedtime. 6. Lyrica 25 mg p.o. daily. 7. Multivitamin 1 tab p.o. daily. 8. Claritin 10 mg p.o. daily p.r.n. 9. Lorazepam 0.5 mg p.o. q.6 hours p.r.n., MDD 4. 10. Vitamin E cap 100 units p.o. daily. 11. Vitamin B complex 1 cap p.o. daily. 12. Vitamin C 1000 mg p.o. daily. 13. Albuterol/ipratropium nebulizer 1 inhalation 4 times daily p.r.n. 14. Albuterol inhaler 2 puffs inhalation 4 times daily p.r.n. 15. Lasix 20 mg p.o. daily. 16. Colace 100 mg p.o. daily. 17. Prolia 60 mg subcu. 18. Vitamin D 400 units p.o. daily. 19. Calcium carbonate/vitamin D 1 tab p.o. daily. 20. Symbicort 160/4.5 two puffs inhalation b.i.d. 21. Aspirin 81 mg p.o. daily. 22. Guaifenesin/pseudoephedrine 600/60 one tab p.o. b.i.d. p.r.n. ALLERGIES: 1. ADHESIVE TAPE. 2. CODEINE. 3. IODINE. 4. PENICILLIN. 5. PINEAPPLE. 6. RAISINS. 7. TIOTROPIUM. FAMILY HISTORY: The patient reports mother of ruptured aneurysm. The patient's father of pancreatic cancer. The patient's sister of heart failure. SOCIAL HISTORY: The patient quit smoking in 2004, but smoked heavily for approximately 30 years. The patient denies alcohol or drug use. 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 The patient is and has 2 children. The patient's surrogate decision maker will be her daughter, Lily Monroe. The patient lives alone next to her daughter. The patient uses a walker at baseline. The patient will be a full code. REVIEW OF SYSTEMS: A 14-point review of systems was reviewed and is negative except per above in HPI. PHYSICAL EXAMINATION GENERAL: The patient is a 78-year-old female who appears stated age, who is sitting comfortably in bed. She is in no acute distress. She was noted to be pursed-lip breathing occasionally. VITAL SIGNS: Temp 97.9, HR 86, RR 16, O2 saturation 95% on 6 L, BP 144/75. HEENT: PERRLA. EOMs intact. Oral mucosa is moist without lesions. Posterior pharynx is clear. NECK: Supple. No lymphadenopathy. RESPIRATORY: Symmetrical chest expansion. No accessory muscle use. The patient noted to be pursed-lip breathing. Lungs are significantly diminished. No rhonchi, wheezes, or rales. CV: Regular rate and rhythm. S1, S2 present. The patient has systolic murmur. No rubs or gallops. ABDOMEN: Soft, nontender to palpation. Bowel sounds are normoactive throughout. EXTREMITIES: Skin is warm and smooth bilaterally. The patient has +1 to +2 pitting edema bilaterally. No clubbing or cyanosis. Pedal pulses 2+ bilaterally. MUSCULOSKELETAL: Full range of motion. No pain or deformities. NEURO: Awake, alert, and oriented x4. Motor strength is 5/5 in the upper and lower extremities. SKIN: Grossly intact without lesions. DIAGNOSTIC STUDIES/LAB DATA: WBC 6, hemoglobin 11, hematocrit 30, platelets 160. Sodium 135, potassium 4.5, chloride 97, carbon dioxide 35, BUN 21, creatinine 0.91, lactic 0.7. Troponin 0.3, BNP 382. Chest x-ray: Cardiomegaly. Pulmonary interstitial edema. Patchy atelectasis versus consolidation in the right lower lung. EKG: Sinus rhythm. No ST changes. ASSESSMENT AND PLAN: Ms. Coburn is a 78-year-old female with a past medical history significant for chronic obstructive pulmonary disease; chronic hypoxic respiratory failure, on 4 L; heart failure with reduced ejection fraction; coronary artery disease; hypertension, who presented to the emergency department today with shortness of breath and was found to be in congestive heart failure and possibly chronic obstructive pulmonary disease exacerbation. The patient will be admitted OBV. 1. Shortness of breath. As mentioned above, the patient's chest x-ray is consistent with a congestive heart failure exacerbation. She is requiring supplemental oxygen above her baseline. The patient did receive Lasix 40 mg while in the emergency department. We will continue to IV diurese this patient. We suspect the patient's shortness of breath is due to her congestive heart failure. We will order daily weights and strict I's and O's. As mentioned above, the patient had an echo in June of 2018 and at this point, I do not think it needs to be repeated. The patient also had a cardiac catheterization in April of 2018. The patient is not having chest pain despite what was documented by EMS as the patient adamantly denies chest pain. I do not think the patient needs a stress test at this point. Given that there was documented chest pain, I will continue to trend the patient's troponins. Also on the differential for shortness of breath includes chronic obstructive pulmonary disease exacerbation or viral illness or bacterial illness. The patient does not appear to be in a chronic obstructive pulmonary disease exacerbation currently. There is no evidence of wheezing or increased sputum production. I will hold on giving the patient steroids as she just recently completed steroids last week. As for viral illness, I will order a flu to be thorough, but I have a low suspicion as the patient has no other signs of viral illness. As for bacterial illness, once again, I have a low suspicion as the patient does not have leukocytosis, is not febrile, is not tachycardic. Her x- ray did show atelectasis versus consolidation; therefore, we will watch her closely and plan accordingly. Finally, on the differential would be pulmonary embolism. This is also a very low suspicion as the patient is not tachycardic and not complaining of chest pain. She also has no history of clots or recent trauma or immobilization. We will continue with the patient's nebulizers as needed. She reports she has been doing them q.4 hours at home and they were initially providing relief, but since Sunday, they have not been. 2. Chronic obstructive pulmonary disease. As mentioned above, we will continue the patient's nebulizers q.4 hours as needed. She reports that they were initially providing relief, but have not since Sunday. Since we suspect this is more of a congestive heart failure exacerbation than a chronic obstructive pulmonary disease exacerbation, nebulizers will be ordered prn. It was noted on the patient's med list that she has guaifenesin and pseudoephedrine and this is contraindicated in someone with heart disease and hypertension. Therefore, education should be provided that the patient should only be taking guaifenesin and not pseudoephedrine component as this could be causing significant side effects. 3. Chronic hypoxic respiratory failure, on 4 L nasal cannula at all times: The patient has baseline need for 4 L nasal cannula at home. She reports she does not need to increase this for exertion at home, but unfortunately here in the hospital she has needed to increase to 6 L when mobile to maintain her O2 saturation. The patient will be provided with supplemental O2 and we will adjust accordingly. 4. Heart failure with reduced ejection fraction. As above, we suspect the patient's current shortness of breath is secondary to congestive heart failure exacerbation. We will continue IV Lasix. We will hold the patient's p.o. Lasix and resume when the patient is more stable. We will continue daily weights. We will continue strict I's and O's. We will place her on a low sodium diet. 5. Coronary artery disease. The patient reports she was taking aspirin daily, but she stopped this due to nosebleeds. The patient prefers to not continue this; therefore, we will not continue this. We will continue the patient's simvastatin and irbesartan. 6. Aortic stenosis. As mentioned above, the patient does have a systolic murmur and she has noted [id number] aortic stenosis on echo done in June 2018. Given this finding, we will need to be monitoring the patient's fluid status as there is risk of overdiuresis. 7. Hypertension. We will continue the patient's irbesartan. 8. Abdominal aortic aneurysm. We will defer this to the patient's primary care as she is not having any signs or symptoms of complications. 9. Hyperlipidemia. We will continue the patient's statin. 10. Peripheral neuropathy. We will continue the patient's Lyrica. 11. Osteoporosis. The patient is on meds at home for osteoporosis, which we will continue. Her history of osteoporosis is another reason that we will hold the steroids unless absolutely necessary. 12. FEN: The patient will be placed on a low sodium diet. 13. Code status: The patient is a full code. 14. DVT prophylaxis: Based on DVT risk assessment, the patient is high risk. I will order heparin subcu. TIME SPENT: Approximately 60 minutes was spent on this admission, greater than half the time was spent with the patient and caregiver obtaining my history, performing my physical exam, and reviewing my plan of care. This case has been reviewed with my attending, Dr. Johnson, who is in agreement with my plan. Reviewed by VÍCTOR LIMA NP 07/17/18 [id number]/[facility] #: [id number] EULALIO
[2018-07-12] MEDS: Mometasone/Formoter 200/5 MDI INH SCH (20:46)
[2018-07-12] MEDS: Albuterol/Ipratropium NEB.SOL* Albuterol 2.5 MG/Ipratropium 0.5 MG 3 ML INH PRN (20:52)
[2018-07-12] MEDS: Pregabalin CAP(*) 50 MG PO SCH (21:07)
[2018-07-12] MEDS: Atorvastatin* 10 MG TAB PO SCH (21:07)
[2018-07-12] MEDS: Docusate CAP* 100 MG PO SCH (21:07)
[2018-07-12] MEDS ORDERED: Heparin VIAL(*) 5000 UNITS/ML VIAL (FIVE THOUSAND) SUBCUT SCH (22:00)
[2018-07-12] MEDS ORDERED: Cocaine 4% TOPICAL* 4 ML TOP.SOLN TOPICAL ONE (23:43)
[2018-07-13] MEDS: LORazepam TAB(*) 0.5 MG PO PRN ×2 (00:47→09:40)
[2018-07-13 02:41] LABS: Troponin I 0.04 ng/mL (<0.04)
[2018-07-13] MEDS: Albuterol/Ipratropium NEB.SOL* Albuterol 2.5 MG/Ipratropium 0.5 MG 3 ML INH PRN ×3 (02:44→16:58)
[2018-07-13 06:53] LABS: ABS Basophils 0 10^3/ul (0-0.2); ABS Eosinophils 0 10^3/ul (0-0.6); ABS Lymphocytes 0.4 10^3/ul (1.0-4.8); ABS Monocytes 0.9 10^3/ul (0-0.8); ABS Neutrophils 4.6 10^3/ul (1.5-7.7); ABS Nucleated RBC 0 10^3/ul; Eosinophil % 0.1 %; Hematocrit 31 % (33-41); Hemoglobin 10.4 g/dL (12.0-16.0); Mean Corpuscular HGB Conc 33 g/dL (31-36); Mean Corpuscular Hemoglobin 31 pg (27-31); Mean Corpuscular Volume 93 fL (80-97); Mean Platelet Volume 8.4 fL (7.4-10.4); Nucleated Red Blood Cells % 0.1; Platelet Count 175 10^3/uL (150-450); Red Blood Count 3.35 10^6 /uL (3.70-4.87); Red Cell Distribution Width 13 % (10.5-15); White Blood Count 5.9 10^3/uL (3.5-10.8)
[2018-07-13 07:14] LABS: BUN/Creatinine Ratio 42.9 (8-20); Calcium 8.9 mg/dL (8.6-10.3); EGFR African American 66.4 (>60); EGFR Non-African American 54.9 (>60); Potassium 4.5 mmol/L (3.5-5.0)
[2018-07-13] MEDS: Mometasone/Formoter 200/5 MDI INH SCH ×2 (07:36→19:44)
--- NOTE | 2018-07-13 07:48 | PN ---
Hospitalist Progress Note Date of Service: 07/13/18 Paged by tandem operator Jeremy regarding increased troponins. No noted symptoms reported. Re-ordered two more sets of troponins and repeat EKG. Will defer w/ rounding hospitalist to F/U.
[2018-07-13] MEDS: Pregabalin CAP(*) 25 MG PO SCH (09:41)
[2018-07-13] MEDS: Losartan TAB* 25 MG PO SCH (10:10)
[2018-07-13] MEDS: Docusate CAP* 100 MG PO SCH ×2 (10:10→20:29)
[2018-07-13] MEDS: Vitamin B Complex TAB PO SCH (10:10)
[2018-07-13] MEDS ORDERED: Furosemide IV* 10 MG/ML VIAL (40 MG) IV ONE (11:09)
[2018-07-13 12:28] LABS: Troponin I 0.05 ng/mL (<0.04)
[2018-07-13 15:59] LABS: Troponin I 0.06 ng/mL (<0.04)
--- NOTE | 2018-07-13 18:11 | PN ---
Subjective Date of Service: 07/13/18 Interval History: Ms. Coburn is feeling poor today. She is having significant SOB and associated anxiety. She does not feel that this SOB is any worse than yesterday. Ativan is very helpful. Cough is unchanged. She denies CP, N/V. Nursing concerned about anxiety and SOB. Family History: Unchanged from Admission Social History: Unchanged from Admission Past Medical History: Unchanged from Admission Objective Active Medications: Acetaminophen (Tylenol Tab*) 650 mg PO Q4H PRN FEVER/PAIN Albuterol/Ipratropium (Duoneb (Albuterol 2.5 Mg/Ipratropium 0.5 Mg)) 1 neb INH [id number] AWAKE PRN sob/wheezing Atorvastatin Calcium (Lipitor*) 10 mg PO BEDTIME VALENTINO Docusate Sodium (Colace Cap*) 100 mg PO BID VALENTINO Lorazepam (Ativan Tab(*)) 0.5 mg PO Q6H PRN ANXIETY Losartan Potassium (Cozaar Tab*) 50 mg PO DAILY VALENTINO Mometasone Furoate/Formoterol Fumar (Dulera 200/5 Mdi*) 2 puff INH BID VALENTINO; Protocol Pregabalin (Lyrica Cap(*)) 25 mg PO DAILY VALENTINO Pregabalin (Lyrica Cap(*)) 50 mg PO BEDTIME VALENTINO Senna (Senokot Tab*) 1 tab PO BEDTIME PRN CONSTIPATION Vitamin B Complex/Vitamin E (B Complex-50*) 1 tab PO DAILY [facility] Vital Signs - 8 hr 07/13/18 07/13/18 07/13/18 11:21 11:22 15:19 Temperature 98.3 F Pulse Rate 76 Respiratory 26 26 16 Rate Blood Pressure 124/59 (mmHg) O2 Sat by Pulse 100 Oximetry 07/13/18 07/13/18 16:00 16:59 Temperature Pulse Rate 77 Respiratory 16 Rate Blood Pressure (mmHg) O2 Sat by Pulse 100 98 Oximetry Oxygen Devices in Use Now: OxyMask - 5L Appearance: Elderly female sitting in bed with obvious dyspnea, though no distress Eyes: No Scleral Icterus Ears/Nose/Mouth/Throat: Mucous Membranes Moist Neck: NL Appearance and Movements; NL JVP, Trachea Midline Respiratory: Symmetrical Chest Expansion and Respiratory Effort, - - Diminished throughout Cardiovascular: RRR, - - Grade 3/6 systolic murmur Abdominal: NL Sounds; No Tenderness; No Distention Extremities: - - +1 bilat ankles Neurological: Alert and Oriented x 3 Lines/Tubes/Other Access: Clean, Dry and Intact Peripheral IV Nutrition: Taking PO's Result Diagrams: 07/13/18 06:17 07/13/18 06:17 Assess/Plan/Problems-Billing Assessment: Ms. Coburn is a 78 yo F with PMH of COPD, chronic respiratory failure on 4L, systolic CHF, CAD, severe , HTN, AAA, HLD; who presented to the ED with c/o 3 days of SOB and was admitted because of the concern for CHF exacerbation. - Patient Problems (1) Acute on chronic systolic congestive heart failure Code(s): I50.23 - ACUTE ON CHRONIC SYSTOLIC (CONGESTIVE) HEART FAILURE Comment : - Presented with SOB for 2-3 days - CXR shows pulmonary edema - Echo from 06/21/18 showed EF of 40-45%; do not feel there is any need to repeat echo at this point - Weight down 4 lbs from yesterday - Strict I&O and daily weights - Give furosemide x1 today (2) Acute and chronic respiratory failure with hypoxia Code(s): J96.21 - ACUTE AND CHRONIC RESPIRATORY FAILURE WITH HYPOXIA Comment: - Secondary to CHF exacerbation - Requiring 5L oxymask, baseline is 4L NC - Plan as above (3) Elevated troponin Code(s): R74.8 - ABNORMAL LEVELS OF OTHER SERUM ENZYMES Comment: - Asymptomatic - No acute EKG changes - Low suspicion for PE - Suspect demand ischemia d/t acute CHF - Continue to trend (4) Anxiety Code(s): F41.9 - ANXIETY DISORDER, UNSPECIFIED Comment: - Exacerbated by dyspnea - Continue lorazepam (5) Anemia Code(s): D64.9 - ANEMIA, UNSPECIFIED Comment: - Mild, but new in the last 3 months - Normocytic, normochromic - Check stool occult and iron studies (6) CAD (coronary artery disease) Code(s): I25.10 - ATHSCL HEART DISEASE OF [place] CORONARY ARTERY W/O ANG PCTRS Comment: - Not on aspirin d/t frequent nosebleeds; this was discussed with the patient and she would like to remain off aspirin (7) COPD (chronic obstructive pulmonary disease) Code(s): J44.9 - CHRONIC OBSTRUCTIVE PULMONARY DISEASE, UNSPECIFIED Comment: - Stable, not in exacerbation - Continue Dulera, nebs (8) Aortic stenosis Code(s): I35.0 - NONRHEUMATIC AORTIC (VALVE) STENOSIS Comment: - Recent echo shows moderate to severe - Will need continued outpatient follow up (9) HTN (hypertension) Code(s): I10 - ESSENTIAL (PRIMARY) HYPERTENSION Comment: - Normotensive, SBP 120-130s - Continue losartan (10) Hyperlipidemia Code(s): E78.5 - HYPERLIPIDEMIA, UNSPECIFIED Comment: - Continue atorvastatin (11) Peripheral neuropathy Code(s): G62.9 - POLYNEUROPATHY, UNSPECIFIED Comment: - Continue Lyrica (12) DVT prophylaxis Comment: - Heparin d/c'd dt epistaxis overnight - SCDs (13) Full code status Code(s): Z78.9 - OTHER SPECIFIED HEALTH STATUS Comment: Status and Disposition: Inpatient for CHF exacerbation. Anticipate d/c home when medically stable, likely 2-3 more days. Attending: Fred Pino
[2018-07-13 19:48] LABS: Troponin I 0.06 ng/mL (<0.04)
[2018-07-13] MEDS: Atorvastatin* 10 MG TAB PO SCH (20:29)
[2018-07-13] MEDS: Pregabalin CAP(*) 50 MG PO SCH (20:29)
[2018-07-14] MEDS: Albuterol/Ipratropium NEB.SOL* Albuterol 2.5 MG/Ipratropium 0.5 MG 3 ML INH PRN ×3 (02:34→19:55)
[2018-07-14 06:14] LABS: ABS Basophils 0 10^3/ul (0-0.2); ABS Eosinophils 0.2 10^3/ul (0-0.6); ABS Lymphocytes 1.3 10^3/ul (1.0-4.8); ABS Monocytes 0.7 10^3/ul (0-0.8); ABS Nucleated RBC 0 10^3/ul; Eosinophil % 3.9 %; Hematocrit 28 % (33-41); Hemoglobin 9.5 g/dL (12.0-16.0); Lymphocyte % 24.2 %; Mean Corpuscular HGB Conc 33 g/dL (31-36); Mean Corpuscular Hemoglobin 31 pg (27-31); Mean Corpuscular Volume 93 fL (80-97); Mean Platelet Volume 8.3 fL (7.4-10.4); Nucleated Red Blood Cells % 0; Platelet Count 168 10^3/uL (150-450); Red Blood Count 3.07 10^6 /uL (3.70-4.87); Red Cell Distribution Width 13 % (10.5-15); White Blood Count 5.3 10^3/uL (3.5-10.8)
[2018-07-14 06:29] LABS: Anion Gap 3 mmol/L (2-11); BUN/Creatinine Ratio 36.1 (8-20); Blood Urea Nitrogen 35 mg/dL (6-24); CO2 Carbon Dioxide 35 mmol/L (22-32); Calcium 8.5 mg/dL (8.6-10.3); Chloride 97 mmol/L (101-111); EGFR African American 67.2 (>60); EGFR Non-African American 55.5 (>60); Glucose 90 mg/dL (70-100); Potassium 3.9 mmol/L (3.5-5.0); Sodium 135 mmol/L (135-145)
[2018-07-14 06:32] LABS: % Iron Saturation 14 % (15-55); Iron 39 ug/dL (50-212); Total Iron Binding Capacity 279 mcg/dL (250-450); Transferrin 199 mg/dL (203-362)
[2018-07-14 06:50] LABS: Ferritin 53.8 ng/mL (11-307)
[2018-07-14] MEDS: Mometasone/Formoter 200/5 MDI INH SCH ×2 (07:52→19:51)
[2018-07-14] MEDS: Vitamin B Complex TAB PO SCH (08:57)
[2018-07-14] MEDS: Pregabalin CAP(*) 25 MG PO SCH (08:57)
[2018-07-14] MEDS: Losartan TAB* 25 MG PO SCH (08:57)
[2018-07-14] MEDS: Docusate CAP* 100 MG PO SCH ×2 (08:57→20:14)
[2018-07-14] MEDS ORDERED: Furosemide IV* 10 MG/ML VIAL (40 MG) IV ONE (12:24)
--- NOTE | 2018-07-14 14:59 | PN ---
Subjective Date of Service: 07/14/18 Interval History: Ms. Coburn is feeling a bit better today. She reports feeling very tired. SOB has improved significantly. She has developed a more frequent cough which is slightly productive, though she states at her baseline. She denies CP, N/V. Nursing reporting looser cough. Family History: Unchanged from Admission Social History: Unchanged from Admission Past Medical History: Unchanged from Admission Objective Active Medications: Acetaminophen (Tylenol Tab*) 650 mg PO Q4H PRN FEVER/PAIN Albuterol/Ipratropium (Duoneb (Albuterol 2.5 Mg/Ipratropium 0.5 Mg)) 1 neb INH [id number] AWAKE PRN sob/wheezing Atorvastatin Calcium (Lipitor*) 10 mg PO BEDTIME VALENTINO Docusate Sodium (Colace Cap*) 100 mg PO BID VALENTINO Lorazepam (Ativan Tab(*)) 0.5 mg PO Q6H PRN ANXIETY Losartan Potassium (Cozaar Tab*) 50 mg PO DAILY VALENTINO Mometasone Furoate/Formoterol Fumar (Dulera 200/5 Mdi*) 2 puff INH BID VALENTINO; Protocol Pregabalin (Lyrica Cap(*)) 25 mg PO DAILY VALENTINO Pregabalin (Lyrica Cap(*)) 50 mg PO BEDTIME VALENTINO Senna (Senokot Tab*) 1 tab PO BEDTIME PRN CONSTIPATION Vitamin B Complex/Vitamin E (B Complex-50*) 1 tab PO DAILY [facility] Vital Signs - 8 hr 07/14/18 07/14/18 07/14/18 07:20 07:52 07:53 Temperature 98.0 F Pulse Rate 72 72 Respiratory 18 16 18 Rate Blood Pressure 124/59 (mmHg) O2 Sat by Pulse 98 97 Oximetry Oxygen Devices in Use Now: OxyMask - 5L Appearance: Elderly female sitting in chair in NAD Eyes: No Scleral Icterus Ears/Nose/Mouth/Throat: Mucous Membranes Moist Neck: NL Appearance and Movements; NL JVP, Trachea Midline Respiratory: Symmetrical Chest Expansion and Respiratory Effort, - - Fine crackles to bilat bases, diminished throughout Cardiovascular: RRR, - - Grade 3/6 systolic murmur Abdominal: NL Sounds; No Tenderness; No Distention Extremities: - - +1 pitting bilat ankles Neurological: Alert and Oriented x 3 Lines/Tubes/Other Access: Clean, Dry and Intact Peripheral IV Nutrition: Taking PO's Result Diagrams: 07/14/18 05:27 07/14/18 05:27 Assess/Plan/Problems-Billing Assessment: Ms. Coburn is a 78 yo F with PMH of COPD, chronic respiratory failure on 4L, systolic CHF, CAD, severe , HTN, AAA, HLD; who presented to the ED with c/o 3 days of SOB and was admitted because of the concern for CHF exacerbation. - Patient Problems (1) Acute on chronic systolic congestive heart failure Code(s): I50.23 - ACUTE ON CHRONIC SYSTOLIC (CONGESTIVE) HEART FAILURE Comment : - Presented with SOB for 2-3 days prior to admission - CXR shows pulmonary edema - Echo from 06/21/18 showed EF of 40-45%; do not feel there is any need to repeat echo at this point - Weight down 4 lbs from yesterday - Strict I&O and daily weights - Give furosemide x1 again today (2) Acute and chronic respiratory failure with hypoxia Code(s): J96.21 - ACUTE AND CHRONIC RESPIRATORY FAILURE WITH HYPOXIA Comment: - Secondary to CHF exacerbation - Requiring 4L oxygen which is her baseline - Plan as above (3) Elevated troponin Code(s): R74.8 - ABNORMAL LEVELS OF OTHER SERUM ENZYMES Comment: - Asymptomatic - Trops peaked at 0.06; no EKG changes - Low suspicion for PE, Well's score is 0 - Suspect demand ischemia d/t acute CHF (4) Anxiety Code(s): F41.9 - ANXIETY DISORDER, UNSPECIFIED Comment: - Exacerbated by dyspnea - Continue lorazepam (5) Anemia Code(s): D64.9 - ANEMIA, UNSPECIFIED Comment: - Mild, but new in the last 3 months - Stool occult negative - Suspect anemia of chronic diease superimposed on mild iron deficiency - Start ferrous sulfate (6) CAD (coronary artery disease) Code(s): I25.10 - ATHSCL HEART DISEASE OF [place] CORONARY ARTERY W/O ANG PCTRS Comment: - Not on aspirin d/t frequent nosebleeds; this was discussed with the patient and she would like to remain off aspirin (7) COPD (chronic obstructive pulmonary disease) Code(s): J44.9 - CHRONIC OBSTRUCTIVE PULMONARY DISEASE, UNSPECIFIED Comment: - Stable, not in exacerbation - Continue blanca Ferguson (8) Aortic stenosis Code(s): I35.0 - NONRHEUMATIC AORTIC (VALVE) STENOSIS Comment: - Recent echo shows moderate to severe - Will need continued outpatient follow up (9) HTN (hypertension) Code(s): I10 - ESSENTIAL (PRIMARY) HYPERTENSION Comment: - Normotensive, SBP 120-130s - Continue losartan (10) Hyperlipidemia Code(s): E78.5 - HYPERLIPIDEMIA, UNSPECIFIED Comment: - Continue atorvastatin (11) Peripheral neuropathy Code(s): G62.9 - POLYNEUROPATHY, UNSPECIFIED Comment: - Continue Lyrica (12) DVT prophylaxis Comment: - Heparin d/c'd d/t epistaxis - SCDs (13) Full code status Code(s): Z78.9 - OTHER SPECIFIED HEALTH STATUS Comment: Status and Disposition: Inpatient for CHF exacerbation. Anticipate d/c home when medically stable, likely 2-3 more days. Attending: Fred Pino
[2018-07-14] MEDS: guaiFENesin ER TAB 600 MG PO SCH (20:13)
[2018-07-14] MEDS: Pregabalin CAP(*) 50 MG PO SCH (20:14)
[2018-07-14] MEDS: Atorvastatin* 10 MG TAB PO SCH (20:14)
[2018-07-14] MEDS: Neosporin TOPICAL OINT* 1 EA PACKET TOPICAL SCH (22:09)
[2018-07-15 06:11] LABS: ABS Basophils 0.1 10^3/ul (0-0.2); ABS Eosinophils 0.3 10^3/ul (0-0.6); ABS Lymphocytes 1.1 10^3/ul (1.0-4.8); ABS Monocytes 0.8 10^3/ul (0-0.8); ABS Neutrophils 3.6 10^3/ul (1.5-7.7); ABS Nucleated RBC 0 10^3/ul; Eosinophil % 5.5 %; Hematocrit 30 % (33-41); Lymphocyte % 19.2 %; Mean Corpuscular HGB Conc 34 g/dL (31-36); Mean Corpuscular Hemoglobin 31 pg (27-31); Mean Corpuscular Volume 93 fL (80-97); Mean Platelet Volume 7.6 fL (7.4-10.4); Nucleated Red Blood Cells % 0; Platelet Count 174 10^3/uL (150-450); Red Blood Count 3.19 10^6 /uL (3.70-4.87); Red Cell Distribution Width 13 % (10.5-15); White Blood Count 5.9 10^3/uL (3.5-10.8)
[2018-07-15 06:31] LABS: BUN/Creatinine Ratio 27.8 (8-20); Calcium 8.7 mg/dL (8.6-10.3); EGFR African American 67.2 (>60); EGFR Non-African American 55.5 (>60)
[2018-07-15] MEDS: Albuterol/Ipratropium NEB.SOL* Albuterol 2.5 MG/Ipratropium 0.5 MG 3 ML INH PRN ×3 (07:04→20:58)
[2018-07-15] MEDS: Mometasone/Formoter 200/5 MDI INH SCH ×2 (07:05→20:57)
[2018-07-15] MEDS ORDERED: Furosemide IV* 10 MG/ML 10 ML VIAL (100 MG) IV ONE (09:59)
[2018-07-15] MEDS: Docusate CAP* 100 MG PO SCH ×2 (10:01→20:02)
[2018-07-15] MEDS: Losartan TAB* 25 MG PO SCH (10:01)
[2018-07-15] MEDS: Pregabalin CAP(*) 25 MG PO SCH (10:02)
[2018-07-15] MEDS: guaiFENesin ER TAB 600 MG PO SCH ×2 (10:03→20:03)
[2018-07-15] MEDS: Vitamin B Complex TAB PO SCH (10:03)
[2018-07-15] MEDS: Ferrous Sulfate TAB* 325 MG PO SCH (10:03)
[2018-07-15] MEDS: Neosporin TOPICAL OINT* 1 EA PACKET TOPICAL SCH (10:04)
--- NOTE | 2018-07-15 12:28 | PN ---
Subjective Date of Service: 07/15/18 Interval History: Ms. Coburn is feeling much better today. Her SOB has improved greatly, but she still does not feel at her baseline respiratory status. She is on her home oxygen requirements. She is feeling weak and is concerned about going home and not being able to ambulate. She feels like she was discharged from the hospital too soon last time and that is why she came back. No concerns or complaints from nursing. Family History: Unchanged from Admission Social History: Unchanged from Admission Past Medical History: Unchanged from Admission Objective Active Medications: Acetaminophen (Tylenol Tab*) 650 mg PO Q4H PRN FEVER/PAIN Albuterol/Ipratropium (Duoneb (Albuterol 2.5 Mg/Ipratropium 0.5 Mg)) 1 neb INH [id number] AWAKE PRN sob/wheezing Atorvastatin Calcium (Lipitor*) 10 mg PO BEDTIME VALENTINO Docusate Sodium (Colace Cap*) 100 mg PO BID VALENTINO Ferrous Sulfate (Ferrous Sulfate Tab*) 325 mg PO DAILY VALENTINO Guaifenesin (Mucinex*) 600 mg PO BID VALENTINO Lorazepam (Ativan Tab(*)) 0.5 mg PO Q6H PRN ANXIETY Losartan Potassium (Cozaar Tab*) 50 mg PO DAILY VALENTINO Mometasone Furoate/Formoterol Fumar (Dulera 200/5 Mdi*) 2 puff INH BID VALENTINO; Protocol Neomycin/Polymyxin/Bacitracin (Neosporin Top Oint Packet*) 1 ea TOPICAL DAILY VALENTINO Pregabalin (Lyrica Cap(*)) 25 mg PO DAILY VALENTINO Pregabalin (Lyrica Cap(*)) 50 mg PO BEDTIME VALENTINO Senna (Senokot Tab*) 1 tab PO BEDTIME PRN CONSTIPATION Vitamin B Complex/Vitamin E (B Complex-50*) 1 tab PO DAILY VALENTINO Vital Signs - 8 hr 07/15/18 07/15/18 07/15/18 07:06 07:19 07:54 Temperature 97.5 F Pulse Rate 68 72 Respiratory 16 17 17 Rate Blood Pressure 128/55 (mmHg) O2 Sat by Pulse 98 98 Oximetry 07/15/18 07/15/18 07/15/18 08:00 10:02 11:33 Temperature 97.7 F Pulse Rate 77 Respiratory 20 16 Rate Blood Pressure 122/65 (mmHg) O2 Sat by Pulse 98 100 Oximetry Oxygen Devices in Use Now: Nasal Cannula - 4L Appearance: Elderly female laying in bed in NAD Eyes: No Scleral Icterus Ears/Nose/Mouth/Throat: Mucous Membranes Moist Neck: NL Appearance and Movements; NL JVP, Trachea Midline Respiratory: Symmetrical Chest Expansion and Respiratory Effort, Clear to Auscultation Cardiovascular: RRR, - - Grade 3/6 systolic murmur Abdominal: NL Sounds; No Tenderness; No Distention Extremities: - - +1 bilat ankles Neurological: Alert and Oriented x 3 Lines/Tubes/Other Access: Clean, Dry and Intact Peripheral IV Nutrition: Taking PO's Result Diagrams: 07/15/18 05:52 07/15/18 05:49 Assess/Plan/Problems-Billing Assessment: Ms. Coburn is a 78 yo F with PMH of COPD, chronic respiratory failure on 4L, systolic CHF, CAD, severe , HTN, AAA, HLD; who presented to the ED with c/o 3 days of SOB and was admitted because of the concern for CHF exacerbation. - Patient Problems (1) Acute on chronic systolic congestive heart failure Code(s): I50.23 - ACUTE ON CHRONIC SYSTOLIC (CONGESTIVE) HEART FAILURE Comment : - Presented with SOB for 2-3 days prior to admission - CXR shows pulmonary edema - Echo from 06/21/18 showed EF of 40-45%; do not feel there is any need to repeat echo at this point - Weight down 6 lbs since admission - Strict I&O and daily weights - PT/OT evals for weakness - Give furosemide x1 again today (2) Acute and chronic respiratory failure with hypoxia Code(s): J96.21 - ACUTE AND CHRONIC RESPIRATORY FAILURE WITH HYPOXIA Comment: - Secondary to CHF exacerbation - Requiring 4L oxygen which is her baseline - Plan as above (3) Elevated troponin Code(s): R74.8 - ABNORMAL LEVELS OF OTHER SERUM ENZYMES Comment: - Asymptomatic - Trops peaked at 0.06; no EKG changes - Low suspicion for PE, Well's score is 0 - Suspect demand ischemia d/t acute CHF (4) Anxiety Code(s): F41.9 - ANXIETY DISORDER, UNSPECIFIED Comment: - Exacerbated by dyspnea - Continue lorazepam (5) Anemia Code(s): D64.9 - ANEMIA, UNSPECIFIED Comment: - Mild, but new in the last 3 months - Stool occult negative - Suspect anemia of chronic diease superimposed on mild iron deficiency - Continue ferrous sulfate (6) CAD (coronary artery disease) Code(s): I25.10 - ATHSCL HEART DISEASE OF [place] CORONARY ARTERY W/O ANG PCTRS Comment: - Not on aspirin d/t frequent nosebleeds; this was discussed with the patient and she would like to remain off aspirin (7) COPD (chronic obstructive pulmonary disease) Code(s): J44.9 - CHRONIC OBSTRUCTIVE PULMONARY DISEASE, UNSPECIFIED Comment: - Stable, not in exacerbation - Continue Dulera, nebs (8) Aortic stenosis Code(s): I35.0 - NONRHEUMATIC AORTIC (VALVE) STENOSIS Comment: - Recent echo shows moderate to severe - Will need continued outpatient follow up (9) HTN (hypertension) Code(s): I10 - ESSENTIAL (PRIMARY) HYPERTENSION Comment: - Normotensive, SBP 120-130s - Continue losartan (10) Hyperlipidemia Code(s): E78.5 - HYPERLIPIDEMIA, UNSPECIFIED Comment: - Continue atorvastatin (11) Peripheral neuropathy Code(s): G62.9 - POLYNEUROPATHY, UNSPECIFIED Comment: - Continue Lyrica (12) DVT prophylaxis Comment: - Heparin d/c'd d/t epistaxis - SCDs (13) Full code status Code(s): Z78.9 - OTHER SPECIFIED HEALTH STATUS Comment: Status and Disposition: Inpatient for CHF exacerbation. Anticipate d/c home when medically stable, likely 1-2 more days. Attending: Elinor Muñoz
[2018-07-15] MEDS: Pregabalin CAP(*) 50 MG PO SCH (20:03)
[2018-07-15] MEDS: Atorvastatin* 10 MG TAB PO SCH (20:03)
[2018-07-16 06:33] LABS: BUN/Creatinine Ratio 26.2 (8-20); Calcium 8.9 mg/dL (8.6-10.3); EGFR African American 62.7 (>60); EGFR Non-African American 51.8 (>60); Potassium 4.1 mmol/L (3.5-5.0)
--- NOTE | 2018-07-16 07:54 | PN ---
Progress Note - Progress Note Date of Service: 07/16/18 Note: Cross cover: Called with 10 beat NSVT Pt asymptomatic K>4; no magneisum today Add on serum mag to AM labs Consider AV chase blockade if increased ectopy
[2018-07-16] MEDS: Mometasone/Formoter 200/5 MDI INH SCH ×2 (07:55→19:12)
[2018-07-16] MEDS: Albuterol/Ipratropium NEB.SOL* Albuterol 2.5 MG/Ipratropium 0.5 MG 3 ML INH PRN ×3 (07:56→19:11)
[2018-07-16 08:15] LABS: Magnesium 1.8 mg/dL (1.9-2.7)
[2018-07-16] MEDS: Losartan TAB* 25 MG PO SCH (09:48)
[2018-07-16] MEDS: Pregabalin CAP(*) 25 MG PO SCH (09:49)
[2018-07-16] MEDS: Docusate CAP* 100 MG PO SCH ×2 (09:50→20:40)
[2018-07-16] MEDS: Vitamin B Complex TAB PO SCH (09:50)
[2018-07-16] MEDS: Ferrous Sulfate TAB* 325 MG PO SCH (09:50)
[2018-07-16] MEDS: guaiFENesin ER TAB 600 MG PO SCH ×2 (09:50→20:39)
[2018-07-16] MEDS: Neosporin TOPICAL OINT* 1 EA PACKET TOPICAL SCH (13:15)
--- NOTE | 2018-07-16 16:24 | PN ---
Subjective Date of Service: 07/16/18 Interval History: Ms. Coburn is feeling a little better today. She still does not feel back at her baseline respiratory status. She is concerned about being d/c'd too soon. She denies CP, SOB, N/V. Appetite is good. Nursing reports 10 beats asymptomatic VT this morning. Family History: Unchanged from Admission Social History: Unchanged from Admission Past Medical History: Unchanged from Admission Objective Active Medications: Acetaminophen (Tylenol Tab*) 650 mg PO Q4H PRN FEVER/PAIN Albuterol/Ipratropium (Duoneb (Albuterol 2.5 Mg/Ipratropium 0.5 Mg)) 1 neb INH [id number] AWAKE PRN sob/wheezing Atorvastatin Calcium (Lipitor*) 10 mg PO BEDTIME VALENTINO Docusate Sodium (Colace Cap*) 100 mg PO BID VALENTINO Ferrous Sulfate (Ferrous Sulfate Tab*) 325 mg PO DAILY VALENTINO Furosemide (Lasix Tab*) 20 mg PO DAILY VALENTINO Guaifenesin (Mucinex*) 600 mg PO BID VALENTINO Lorazepam (Ativan Tab(*)) 0.5 mg PO Q6H PRN ANXIETY Losartan Potassium (Cozaar Tab*) 50 mg PO DAILY VALENTINO Mometasone Furoate/Formoterol Fumar (Dulera 200/5 Mdi*) 2 puff INH BID VALENTINO; Protocol Neomycin/Polymyxin/Bacitracin (Neosporin Top Oint Packet*) 1 ea TOPICAL DAILY VALENTINO Pregabalin (Lyrica Cap(*)) 25 mg PO DAILY VALENTINO Pregabalin (Lyrica Cap(*)) 50 mg PO BEDTIME VALENTINO Senna (Senokot Tab*) 1 tab PO BEDTIME PRN CONSTIPATION Vitamin B Complex/Vitamin E (B Complex-50*) 1 tab PO DAILY VALENTINO Vital Signs - 8 hr 07/16/18 07/16/18 07/16/18 09:49 13:15 15:04 Temperature 98.1 F Pulse Rate 72 Respiratory 17 18 18 Rate Blood Pressure 119/67 (mmHg) O2 Sat by Pulse 99 Oximetry Oxygen Devices in Use Now: Nasal Cannula - 4L Appearance: Elderly female sitting in chair in NAD Eyes: No Scleral Icterus Ears/Nose/Mouth/Throat: Mucous Membranes Moist Neck: NL Appearance and Movements; NL JVP, Trachea Midline Respiratory: Symmetrical Chest Expansion and Respiratory Effort, Clear to Auscultation Cardiovascular: RRR Abdominal: NL Sounds; No Tenderness; No Distention Extremities: - - +1 bilat ankles Neurological: Alert and Oriented x 3 Lines/Tubes/Other Access: Clean, Dry and Intact Peripheral IV Nutrition: Taking PO's Result Diagrams: 07/15/18 05:52 07/16/18 05:55 Assess/Plan/Problems-Billing Assessment: Ms. Coburn is a 78 yo F with PMH of COPD, chronic respiratory failure on 4L, systolic CHF, CAD, severe , HTN, AAA, HLD; who presented to the ED with c/o 3 days of SOB and was admitted because of the concern for CHF exacerbation. - Patient Problems (1) Acute on chronic systolic congestive heart failure Code(s): I50.23 - ACUTE ON CHRONIC SYSTOLIC (CONGESTIVE) HEART FAILURE Comment : - Presented with SOB for 2-3 days prior to admission - CXR shows pulmonary edema - Echo from 06/21/18 showed EF of 40-45%; do not feel there is any need to repeat echo at this point - Weight down 7 lbs since admission - Strict I&O and daily weights - Restart home furosemide (2) Acute and chronic respiratory failure with hypoxia Code(s): J96.21 - ACUTE AND CHRONIC RESPIRATORY FAILURE WITH HYPOXIA Comment: - Secondary to CHF exacerbation - Now requiring 4L oxygen which is her baseline - Plan as above (3) Elevated troponin Code(s): R74.8 - ABNORMAL LEVELS OF OTHER SERUM ENZYMES Comment: - Asymptomatic - Trops peaked at 0.06; no EKG changes - Low suspicion for PE, Well's score is 0 - Suspect demand ischemia d/t acute CHF (4) Anxiety Code(s): F41.9 - ANXIETY DISORDER, UNSPECIFIED Comment: - Exacerbated by dyspnea - Continue lorazepam (5) Anemia Code(s): D64.9 - ANEMIA, UNSPECIFIED Comment: - Mild, but new in the last 3 months - Stool occult negative; iron studies show mild ID - Suspect anemia of chronic diease superimposed on mild iron deficiency - Continue ferrous sulfate (6) CAD (coronary artery disease) Code(s): I25.10 - ATHSCL HEART DISEASE OF [place] CORONARY ARTERY W/O ANG PCTRS Comment: - Not on aspirin d/t frequent nosebleeds; this was discussed with the patient and she would like to remain off aspirin (7) COPD (chronic obstructive pulmonary disease) Code(s): J44.9 - CHRONIC OBSTRUCTIVE PULMONARY DISEASE, UNSPECIFIED Comment: - Stable, not in exacerbation - Continue blanca Ferguson (8) Aortic stenosis Code(s): I35.0 - NONRHEUMATIC AORTIC (VALVE) STENOSIS Comment: - Recent echo shows moderate to severe - Will need continued outpatient follow up (9) HTN (hypertension) Code(s): I10 - ESSENTIAL (PRIMARY) HYPERTENSION Comment: - Normotensive, SBP 110-140s - Continue losartan (10) Hyperlipidemia Code(s): E78.5 - HYPERLIPIDEMIA, UNSPECIFIED Comment: - Continue atorvastatin (11) Peripheral neuropathy Code(s): G62.9 - POLYNEUROPATHY, UNSPECIFIED Comment: - Continue Lyrica (12) DVT prophylaxis Comment: - Heparin d/c'd d/t epistaxis - SCDs (13) Full code status Code(s): Z78.9 - OTHER SPECIFIED HEALTH STATUS Comment: Status and Disposition: Inpatient for CHF exacerbation requiring IV diuresis. Anticipate d/c home when medically stable, likely tomorrow. Attending: Elinor Muñoz
[2018-07-16] MEDS: Furosemide TAB* 20 MG PO SCH (17:16)
[2018-07-16] MEDS: Atorvastatin* 10 MG TAB PO SCH (20:40)
[2018-07-16] MEDS: Pregabalin CAP(*) 50 MG PO SCH (20:40)
[2018-07-17] MEDS: Albuterol/Ipratropium NEB.SOL* Albuterol 2.5 MG/Ipratropium 0.5 MG 3 ML INH PRN ×3 (05:58→20:06)
[2018-07-17] MEDS: Mometasone/Formoter 200/5 MDI INH SCH ×2 (07:54→20:06)
[2018-07-17] MEDS: Ferrous Sulfate TAB* 325 MG PO SCH (09:05)
[2018-07-17] MEDS: Neosporin TOPICAL OINT* 1 EA PACKET TOPICAL SCH (09:05)
[2018-07-17] MEDS: Furosemide TAB* 20 MG PO SCH (09:06)
[2018-07-17] MEDS: Losartan TAB* 25 MG PO SCH (09:06)
[2018-07-17] MEDS: Docusate CAP* 100 MG PO SCH ×2 (09:06→22:54)
[2018-07-17] MEDS: Vitamin B Complex TAB PO SCH (09:06)
[2018-07-17] MEDS: guaiFENesin ER TAB 600 MG PO SCH ×2 (09:06→22:54)
[2018-07-17] MEDS: Pregabalin CAP(*) 25 MG PO SCH (09:07)
[2018-07-17 09:10] LABS: BUN/Creatinine Ratio 25.8 (8-20); Calcium 8.9 mg/dL (8.6-10.3); EGFR African American 70.6 (>60); EGFR Non-African American 58.3 (>60); Magnesium 1.8 mg/dL (1.9-2.7); Potassium 4.2 mmol/L (3.5-5.0)
[2018-07-17] MEDS ORDERED: Furosemide IV* 10 MG/ML 10 ML VIAL (100 MG) IV ONE (09:27)
--- NOTE | 2018-07-17 15:55 | PN ---
Subjective Date of Service: 07/17/18 Interval History: Ms. Coburn is feeling ok today. She is still SOB, especially with exertion and she has not been able to ambulate much as there has not been staff available to help her. She denies CP, dizziness. Would like to stay in the hospital until Sunday because her aide won't be available until then and she does not want to return home without assistance the first day. No concerns from nursing. Family History: Unchanged from Admission Social History: Unchanged from Admission Past Medical History: Unchanged from Admission Objective Active Medications: Acetaminophen (Tylenol Tab*) 650 mg PO Q4H PRN FEVER/PAIN Albuterol/Ipratropium (Duoneb (Albuterol 2.5 Mg/Ipratropium 0.5 Mg)) 1 neb INH [id number] AWAKE PRN sob/wheezing Atorvastatin Calcium (Lipitor*) 10 mg PO BEDTIME VALENTINO Docusate Sodium (Colace Cap*) 100 mg PO BID VALENTINO Ferrous Sulfate (Ferrous Sulfate Tab*) 325 mg PO DAILY VALENTINO Furosemide (Lasix Tab*) 60 mg PO DAILY VALENTINO Guaifenesin (Mucinex*) 600 mg PO BID VALENTINO Lorazepam (Ativan Tab(*)) 0.5 mg PO Q6H PRN ANXIETY Losartan Potassium (Cozaar Tab*) 50 mg PO DAILY VALENTINO Mometasone Furoate/Formoterol Fumar (Dulera 200/5 Mdi*) 2 puff INH BID VALENTINO; Protocol Neomycin/Polymyxin/Bacitracin (Neosporin Top Oint Packet*) 1 ea TOPICAL DAILY VALENTINO Pregabalin (Lyrica Cap(*)) 25 mg PO DAILY VALENTINO Pregabalin (Lyrica Cap(*)) 50 mg PO BEDTIME VALENTINO Senna (Senokot Tab*) 1 tab PO BEDTIME PRN CONSTIPATION Vitamin B Complex/Vitamin E (B Complex-50*) 1 tab PO DAILY VALENTINO Vital Signs - 8 hr 07/17/18 07/17/18 07/17/18 07:55 08:00 09:07 Temperature 97.4 F Pulse Rate 68 80 Respiratory 18 14 16 Rate Blood Pressure 100/57 (mmHg) O2 Sat by Pulse 98 99 Oximetry 07/17/18 07/17/18 07/17/18 12:38 14:14 14:47 Temperature 98.4 F Pulse Rate 78 78 Respiratory 16 20 18 Rate Blood Pressure 105/50 (mmHg) O2 Sat by Pulse 97 97 Oximetry Oxygen Devices in Use Now: Nasal Cannula - 4L Appearance: Elderly female sitting in chair in NAD Eyes: No Scleral Icterus Ears/Nose/Mouth/Throat: Mucous Membranes Moist Neck: NL Appearance and Movements; NL JVP, Trachea Midline Respiratory: Symmetrical Chest Expansion and Respiratory Effort, Clear to Auscultation Cardiovascular: RRR Abdominal: NL Sounds; No Tenderness; No Distention Extremities: - - +1 bilat ankles Neurological: Alert and Oriented x 3, NL Sensation Lines/Tubes/Other Access: Clean, Dry and Intact Peripheral IV Nutrition: Taking PO's Result Diagrams: 07/15/18 05:52 07/17/18 08:14 Assess/Plan/Problems-Billing Assessment: Ms. Coburn is a 78 yo F with PMH of COPD, chronic respiratory failure on 4L, systolic CHF, CAD, severe , HTN, AAA, HLD; who presented to the ED with c/o 3 days of SOB and was admitted because of the concern for CHF exacerbation. - Patient Problems (1) Acute on chronic systolic congestive heart failure Code(s): I50.23 - ACUTE ON CHRONIC SYSTOLIC (CONGESTIVE) HEART FAILURE Comment : - Presented with SOB for 2-3 days prior to admission - CXR shows pulmonary edema - Echo from 06/21/18 showed EF of 40-45%; do not feel there is any need to repeat echo at this point - Weight up 2 lb again today - Strict I&O and daily weights - Continue furosemide (dose increased); give additional IV dose today (2) Acute and chronic respiratory failure with hypoxia Code(s): J96.21 - ACUTE AND CHRONIC RESPIRATORY FAILURE WITH HYPOXIA Comment: - Secondary to CHF exacerbation - Now requiring 4L oxygen which is her baseline - Plan as above (3) Bacterial colonization of lower respiratory tract Code(s): Z22.39 - CARRIER OF OTHER SPECIFIED BACTERIAL DISEASES Comment: - Sputum culture growing Stenotrophomonas - Spoke with ID who advised this represents colonization and does not require treatment (4) Elevated troponin Code(s): R74.8 - ABNORMAL LEVELS OF OTHER SERUM ENZYMES Comment: - Asymptomatic - Trops peaked at 0.06; no EKG changes - Low suspicion for PE, Well's score is 0 - Suspect demand ischemia d/t acute CHF (5) Anxiety Code(s): F41.9 - ANXIETY DISORDER, UNSPECIFIED Comment: - Exacerbated by dyspnea - Continue lorazepam (6) Anemia Code(s): D64.9 - ANEMIA, UNSPECIFIED Comment: - Mild, but new in the last 3 months - Stool occult negative; iron studies show mild ID - Suspect anemia of chronic diease superimposed on mild iron deficiency - Continue ferrous sulfate (7) CAD (coronary artery disease) Code(s): I25.10 - ATHSCL HEART DISEASE OF [place] CORONARY ARTERY W/O ANG PCTRS Comment: - Not on aspirin d/t frequent nosebleeds; this was discussed with the patient and she would like to remain off aspirin (8) COPD (chronic obstructive pulmonary disease) Code(s): J44.9 - CHRONIC OBSTRUCTIVE PULMONARY DISEASE, UNSPECIFIED Comment: - Stable, not in exacerbation - Continue Dulmichelle nebjessenia (9) Aortic stenosis Code(s): I35.0 - NONRHEUMATIC AORTIC (VALVE) STENOSIS Comment: - Recent echo shows moderate to severe - Will need continued outpatient follow up (10) HTN (hypertension) Code(s): I10 - ESSENTIAL (PRIMARY) HYPERTENSION Comment: - Normotensive, SBP 100-130s - Continue losartan (11) Hyperlipidemia Code(s): E78.5 - HYPERLIPIDEMIA, UNSPECIFIED Comment: - Continue atorvastatin (12) Peripheral neuropathy Code(s): G62.9 - POLYNEUROPATHY, UNSPECIFIED Comment: - Continue Lyrica (13) DVT prophylaxis Comment: - Heparin d/c'd d/t epistaxis - SCDs (14) Full code status Code(s): Z78.9 - OTHER SPECIFIED HEALTH STATUS Comment: Status and Disposition: Inpatient for CHF exacerbation requiring IV diuresis. Anticipate d/c home when medically stable. Attending: Elinor Muñoz
[2018-07-17] MEDS: Atorvastatin* 10 MG TAB PO SCH (22:53)
[2018-07-17] MEDS: Pregabalin CAP(*) 50 MG PO SCH (22:54)
[2018-07-17] MEDS: Sulfamethox/Trimethoprim DS 800/160* TAB PO SCH (22:54)
[2018-07-18] MEDS: Albuterol/Ipratropium NEB.SOL* Albuterol 2.5 MG/Ipratropium 0.5 MG 3 ML INH PRN ×4 (03:13→19:42)
[2018-07-18 06:07] LABS: BUN/Creatinine Ratio 24.8 (8-20); Calcium 9.2 mg/dL (8.6-10.3); EGFR African American 64.1 (>60); Potassium 4.4 mmol/L (3.5-5.0)
[2018-07-18] MEDS: Mometasone/Formoter 200/5 MDI INH SCH ×2 (07:55→19:42)
[2018-07-18] MEDS: Sulfamethox/Trimethoprim DS 800/160* TAB PO SCH ×2 (09:05→21:43)
[2018-07-18] MEDS: Vitamin B Complex TAB PO SCH (09:05)
[2018-07-18] MEDS: guaiFENesin ER TAB 600 MG PO SCH ×2 (09:05→21:43)
[2018-07-18] MEDS: Docusate CAP* 100 MG PO SCH ×2 (09:05→21:43)
[2018-07-18] MEDS: Ferrous Sulfate TAB* 325 MG PO SCH (09:05)
[2018-07-18] MEDS: Losartan TAB* 25 MG PO SCH (09:05)
[2018-07-18] MEDS: Furosemide TAB* 20 MG PO SCH (09:05)
[2018-07-18] MEDS: Neosporin TOPICAL OINT* 1 EA PACKET TOPICAL SCH (09:06)
[2018-07-18] MEDS: Pregabalin CAP(*) 25 MG PO SCH (09:06)
--- NOTE | 2018-07-18 14:35 | PN ---
Subjective Date of Service: 07/18/18 Interval History: Ms. Coburn is feeling ok today. She feels about at her baseline. Denies CP, SOB, N/V, dizziness, headache. Still feeling weak and has not been up ambulating much. States she cannot go home until tomorrow as her aide will not be available until then. Concerned about getting her US for her AAA before she leaves the hospital. No concerns from nursing. Family History: Unchanged from Admission Social History: Unchanged from Admission Past Medical History: Unchanged from Admission Objective Active Medications: Acetaminophen (Tylenol Tab*) 650 mg PO Q4H PRN FEVER/PAIN Albuterol/Ipratropium (Duoneb (Albuterol 2.5 Mg/Ipratropium 0.5 Mg)) 1 neb INH [id number] AWAKE PRN sob/wheezing Atorvastatin Calcium (Lipitor*) 10 mg PO BEDTIME VALENTINO Docusate Sodium (Colace Cap*) 100 mg PO BID VALENTINO Ferrous Sulfate (Ferrous Sulfate Tab*) 325 mg PO DAILY VALENTINO Furosemide (Lasix Tab*) 60 mg PO DAILY VALENTINO Guaifenesin (Mucinex*) 600 mg PO BID VALENTINO Lorazepam (Ativan Tab(*)) 0.5 mg PO Q6H PRN ANXIETY Losartan Potassium (Cozaar Tab*) 50 mg PO DAILY VALENTINO Mometasone Furoate/Formoterol Fumar (Dulera 200/5 Mdi*) 2 puff INH BID VALENTINO; Protocol Neomycin/Polymyxin/Bacitracin (Neosporin Top Oint Packet*) 1 ea TOPICAL DAILY VALENTINO Pregabalin (Lyrica Cap(*)) 25 mg PO DAILY VALENTINO Pregabalin (Lyrica Cap(*)) 50 mg PO BEDTIME VALENTINO Senna (Senokot Tab*) 1 tab PO BEDTIME PRN CONSTIPATION Trimethoprim/Sulfamethoxazole (Bactrim Ds 800/160 Tab*) 1 tab PO BID VALENTINO Vitamin B Complex/Vitamin E (B Complex-50*) 1 tab PO DAILY VALENTINO Vital Signs - 8 hr 07/18/18 07/18/18 07/18/18 07:56 08:00 08:18 Temperature 96.8 F Pulse Rate 92 73 Respiratory 18 18 18 Rate Blood Pressure 116/56 (mmHg) O2 Sat by Pulse 99 99 Oximetry 07/18/18 07/18/18 07/18/18 09:06 11:27 11:41 Temperature 98.3 F Pulse Rate 81 Respiratory 20 24 18 Rate Blood Pressure 142/66 (mmHg) O2 Sat by Pulse 98 Oximetry Oxygen Devices in Use Now: Nasal Cannula - 4L Appearance: Elderly female sitting in bed in NAD Eyes: No Scleral Icterus Ears/Nose/Mouth/Throat: Mucous Membranes Moist Neck: NL Appearance and Movements; NL JVP, Trachea Midline Respiratory: Symmetrical Chest Expansion and Respiratory Effort, Clear to Auscultation Cardiovascular: RRR Abdominal: NL Sounds; No Tenderness; No Distention Extremities: - - +1 bilat ankles Neurological: Alert and Oriented x 3 Lines/Tubes/Other Access: Clean, Dry and Intact Peripheral IV Nutrition: Taking PO's Result Diagrams: 07/15/18 05:52 07/18/18 05:30 Assess/Plan/Problems-Billing Assessment: Ms. Coburn is a 78 yo F with PMH of COPD, chronic respiratory failure on 4L, systolic CHF, CAD, severe , HTN, AAA, HLD; who presented to the ED with c/o 3 days of SOB and was admitted because of the concern for CHF exacerbation. - Patient Problems (1) Acute on chronic systolic congestive heart failure Code(s): I50.23 - ACUTE ON CHRONIC SYSTOLIC (CONGESTIVE) HEART FAILURE Comment : - Presented with SOB for 2-3 days prior to admission - CXR shows pulmonary edema - Echo from 06/21/18 showed EF of 40-45%; do not feel there is any need to repeat echo at this point - Weight up again today, though this is likely not fluid - Strict I&O and daily weights - Continue furosemide (home dose increased) (2) Acute and chronic respiratory failure with hypoxia Code(s): J96.21 - ACUTE AND CHRONIC RESPIRATORY FAILURE WITH HYPOXIA Comment: - Secondary to CHF exacerbation - Now requiring 4L oxygen which is her baseline - Plan as above (3) Bacterial colonization of lower respiratory tract Code(s): Z22.39 - CARRIER OF OTHER SPECIFIED BACTERIAL DISEASES Comment: - Sputum culture growing Stenotrophomonas - Spoke with ID who advised this represents colonization and does not require treatment (4) Elevated troponin Code(s): R74.8 - ABNORMAL LEVELS OF OTHER SERUM ENZYMES Comment: - Asymptomatic - Trops peaked at 0.06; no EKG changes - Low suspicion for PE, Well's score is 0 - Suspect demand ischemia d/t acute CHF (5) Anxiety Code(s): F41.9 - ANXIETY DISORDER, UNSPECIFIED Comment: - Exacerbated by dyspnea - Continue lorazepam (6) Anemia Code(s): D64.9 - ANEMIA, UNSPECIFIED Comment: - Mild, but new in the last 3 months - Stool occult negative; iron studies show mild ID - Suspect anemia of chronic diease superimposed on mild iron deficiency - Continue ferrous sulfate (7) CAD (coronary artery disease) Code(s): I25.10 - ATHSCL HEART DISEASE OF [place] CORONARY ARTERY W/O ANG PCTRS Comment: - Not on aspirin d/t frequent nosebleeds; this was discussed with the patient and she would like to remain off aspirin (8) COPD (chronic obstructive pulmonary disease) Code(s): J44.9 - CHRONIC OBSTRUCTIVE PULMONARY DISEASE, UNSPECIFIED Comment: - Stable, not in exacerbation - Continue blanca Ferguson (9) Aortic stenosis Code(s): I35.0 - NONRHEUMATIC AORTIC (VALVE) STENOSIS Comment: - Recent echo shows moderate to severe - Will need continued outpatient follow up (10) HTN (hypertension) Code(s): I10 - ESSENTIAL (PRIMARY) HYPERTENSION Comment: - Normotensive - Continue losartan (11) Hyperlipidemia Code(s): E78.5 - HYPERLIPIDEMIA, UNSPECIFIED Comment: - Continue atorvastatin (12) Peripheral neuropathy Code(s): G62.9 - POLYNEUROPATHY, UNSPECIFIED Comment: - Continue Lyrica (13) DVT prophylaxis Comment: - Heparin d/c'd d/t epistaxis - SCDs (14) Full code status Code(s): Z78.9 - OTHER SPECIFIED HEALTH STATUS Comment: Status and Disposition: Inpatient for CHF exacerbation requiring IV diuresis. Anticipate d/c home tomorrow. Attending: Elinor Muñoz
[2018-07-18] MEDS: Atorvastatin* 10 MG TAB PO SCH (21:43)
[2018-07-18] MEDS: Pregabalin CAP(*) 50 MG PO SCH (21:43)
[2018-07-19] MEDS: Albuterol/Ipratropium NEB.SOL* Albuterol 2.5 MG/Ipratropium 0.5 MG 3 ML INH PRN ×2 (02:52→08:22)
[2018-07-19] MEDS: Losartan TAB* 25 MG PO SCH (08:14)
[2018-07-19] MEDS: Pregabalin CAP(*) 25 MG PO SCH (08:14)
[2018-07-19] MEDS: Furosemide TAB* 20 MG PO SCH (08:14)
[2018-07-19] MEDS: Neosporin TOPICAL OINT* 1 EA PACKET TOPICAL SCH (08:15)
[2018-07-19] MEDS: Sulfamethox/Trimethoprim DS 800/160* TAB PO SCH (08:15)
[2018-07-19] MEDS: Vitamin B Complex TAB PO SCH (08:15)
[2018-07-19] MEDS: Docusate CAP* 100 MG PO SCH (08:15)
[2018-07-19] MEDS: guaiFENesin ER TAB 600 MG PO SCH (08:15)
[2018-07-19] MEDS: Ferrous Sulfate TAB* 325 MG PO SCH (08:15)
[2018-07-19] MEDS: Mometasone/Formoter 200/5 MDI INH SCH (08:22)
[2018-07-19] MEDS ORDERED: Polyethylene Glycol 3350* 17 GM PACKET PO SCH (10:00)
[2018-07-19 12:30] VITALS: BP 110/53
--- NOTE | 2018-07-19 22:39 | DS ---
CC: Echo Rivero NP; Dr. Oskar Shultz; Dr. Sabrina Chester * DISCHARGE SUMMARY: DATE OF ADMISSION: 07/12/18 DATE OF DISCHARGE: 07/19/18 PRIMARY CARE PROVIDER: Echo Rivero NP MOVIE THEATER USHER: Dr. Oskar Shultz. CUSTOMER SERVICES COORDINATOR: Dr. Sabrina Chester. ATTENDING PHYSICIAN: Dr. Elinor Muñoz * (dictated by Zeinab Guevara NP). PRIMARY DIAGNOSES: 1. Acute on chronic systolic congestive heart failure. 2. Acute on chronic hypoxic respiratory failure. 3. Bacterial colonization of lower respiratory tract. SECONDARY DIAGNOSES: 1. Anxiety. 2. Anemia. 3. Anemia of chronic disease superimposed on iron deficiency. 4. Coronary artery disease. 5. Chronic obstructive pulmonary disease. 6. Aortic stenosis, moderate to severe. 7. Hypertension. 8. Hyperlipidemia. 9. Peripheral neuropathy. STUDIES WHILE IN THE HOSPITAL: 1. Chest x-ray on 07/12/18 reads as cardiomegaly. Pulmonary interstitial edema. Patchy atelectasis versus consolidation of the right lower lung. EKG on 07/12/18, shows normal sinus rhythm with a rate of 84, QTc 426, no ischemic changes. This EKG is consistent with prior EKGs on file. 2. EKG on 07/13/18 shows normal sinus rhythm with a rate of 81, QTc 452, consistent with previous EKG. 3. EKG on 07/13/18 shows normal sinus rhythm with a rate of 79, QTc 471, consistent with previous EKG. 4. EKG on 07/13/18 shows normal sinus rhythm with a rate of 82, multiple PACs, QTC 457, otherwise consistent with previous EKG. HISTORY OF PRESENT ILLNESS AND HOSPITAL COURSE: Ms. Coburn is a 78-year-old female with past medical history of COPD; chronic hypoxic respiratory failure, on 3 liters; systolic congestive heart failure; coronary artery disease; aortic stenosis, hypertension; abdominal aortic aneurysm; hyperlipidemia; and peripheral neuropathy, who presented to the emergency room on 07/12/18 with complaints of shortness of breath. Please see the history and physical by Aimee Hess NP, for complete summary of the events leading up to this hospitalization. In short, the patient had worsening shortness of breath over the last 2 to 3 days. She had been admitted to this facility from 06/21/18 to , and at that time, her discharge diagnosis was viral bronchitis complicated by chronic obstructive pulmonary disease exacerbation. She had been feeling in her normal state of health since discharge until she developed the shortness of breath. The patient was not sure of her baseline weight. In the emergency room, she had a chest x-ray as noted above, which was remarkable for pulmonary interstitial edema. She had labs, which were essentially unremarkable except for a BNP of 382. She was additionally noted to require 6 L of oxygen to maintain saturations in the 90s. She was admitted by the hospitalist service because of concern for congestive heart failure observation. She was treated with IV Lasix. She was noted to have a mildly elevated troponin at 0.04. This ultimately peaked at 0.06, though the patient never had any cardiac symptoms including chest pain, diaphoresis, arm pain, jaw pain, and EKGs did not show any acute changes. It was felt that these elevated troponins were secondary to demand ischemia due to hypovolemia from her CHF exacerbation. The chest x-ray showed some questionable consolidation, though the patient was not showing any signs of infection, and therefore, it was felt that this did not represent a pneumonia. On 07/13/18, the patient was noted to have a significant shortness of breath and required Ativan quite frequently due to her anxiety. Her home Lasix was held and she was diuresed daily with 40 to 60 mg of IV Lasix. Her weight on admission was 207 pounds and as of the day of discharge, her weight is 204 pounds. A repeat echo was not obtained, as she had a recent echo on 06/21/18. The patient's respiratory status continued to improve on 07/18/18. She was ultimately stable for discharge, though she reported as she could not return home until today, 07/19/18, as she would not have anyone to help her at home. On exam, the patient's lung sounds are clear to auscultation. She is on her baseline of 4 L nasal cannula. Heart rate is regular. She is noted to have a grade 3/6 systolic murmur consistent with her known aortic stenosis. She has + 1 pitting edema to her bilateral ankles. This has remained consistent during this hospitalization. Otherwise, she has no edema. She reports feeling well and is agreeable to returning home. Ms. Coburn is stable for discharge today. Vital signs are as follows: Temp 98.5, heart rate 86, respiratory rate 20, oxygen saturation 90% on 4 Ls nasal cannula, blood pressure 110/53. DISCHARGE MEDICATIONS: New medications: 1. Ferrous sulfate 325 mg p.o. daily. 2. MiraLAX 17 g p.o. daily. Changed medications: 1. Furosemide 60 mg p.o. daily (previously with 20 mg daily). Continued medications: 1. Symbicort 160/4.5 two puffs b.i.d. 2. Irbesartan 150 mg p.o. daily. 3. Lyrica 25 mg p.o. daily. 4. Lyrica 50 mg p.o. at bedtime. 5. Simvastatin 20 mg p.o. at bedtime. 6. Vitamin B complex 1 cap p.o. daily. 7. Albuterol MDI 2 puffs 4 times a day p.r.n. shortness of breath. 8. DuoNeb 1 neb 4 times a day p.r.n. shortness of breath. 9. Ascorbic acid 1000 mg p.o. daily. 10. Aspirin 81 mg p.o. daily. 11. Calcium 500 plus vitamin D 1 tab p.o. daily. 12. Cholecalciferol 400 units p.o. daily. 13. Denosumab 60 mg subcu unknown frequency. 14. Docusate 100 mg p.o. b.i.d. 15. Mucinex 1 tab p.o. b.i.d. p.r.n. congestion. 16. Ibuprofen 400 mg p.o. q.6 hours p.r.n. pain. 17. Loratadine 10 mg p.o. daily p.r.n. allergy symptoms. 18. Lorazepam 0.5 mg p.o. q.6 hours p.r.n. anxiety. 19. Multivitamin 1 tab p.o. daily. 20. Senna 1 tab p.o. daily. 21. Vitamin E 100 units p.o. daily. DISCHARGE PLAN: Ms. Coburn will be discharged home. Activity will be as tolerated. Diet will be heart healthy. She should continue to use her 4 L of oxygen as previously prescribed. Medications are noted above. I have increased the patient's furosemide from 20 mg daily to 60 mg daily. I have additionally added daily ferrous sulfate, as she is noted to be slightly iron deficient and I have prescribed a bowel regimen as the patient has reported some issues with constipation. She can continue her other use of medications as noted above. She has an appointment with Dr. Simon next week. I will note that she was scheduled for an aorta ultrasound on 07/18/18, which she did not get as she was in the hospital. This screening exam was not able to be completed as an inpatient. Initially, the plan was for the patient to have the ultrasound today after discharge, though there was some confusion. She was not n.p.o., so therefore, she was not able to have that done today. The patient's nurse is rescheduling it for early next week so that results are available for Dr. Simon at her appointment. She should follow up with Dr. Chester and Dr. Shultz as needed, and should follow up with her primary care provider in 4 to 7 days. She has been advised to return to the emergency room or nearest hospital for any worsening of symptoms, shortness of breath, lightheadedness, dizziness, chest discomfort, high fever, chills, night sweats, loss of consciousness or any other worrisome signs or symptoms. DISCHARGE CONDITION: Stable. DISCHARGE DISPOSITION: Home. This is a summarized report of a complex medical history and hospital stay. For further details, please see the entire medical record. TIME SPENT: Approximately 45 minutes was spent on this discharge. ZEINAB GUEVARA, UNIQUE [id number]/[facility] #: [id number] EULALIO
== END 2018-07-19 15:28 | disposition home health service (06) | DRG 291 ==
LOC: ED 10:21 → MEDTELE 14:48 → OBSVTOIN 07-14 12:45
PROVIDERS: ADMIT Student in an Organized Health Care Education/Training Program; ATTEND Internal Medicine
DX: I11.0 Hypertensive heart disease with heart failure (principal); J96.21 Acute and chronic respiratory failure with hypoxia; I47.1 Supraventricular tachycardia; I24.8 Other forms of acute ischemic heart disease; I50.23 Acute on chronic systolic (congestive) heart failure; E78.00 Pure hypercholesterolemia, unspecified; I25.10 Atherosclerotic heart disease of native coronary artery without angina pectoris; I71.4 Abdominal aortic aneurysm, without rupture; J44.9 Chronic obstructive pulmonary disease, unspecified; M81.0 Age-related osteoporosis without current pathological fracture; M19.90 Unspecified osteoarthritis, unspecified site; H26.9 Unspecified cataract; Z96.642 Presence of left artificial hip joint; E78.5 Hyperlipidemia, unspecified; F41.9 Anxiety disorder, unspecified; D50.9 Iron deficiency anemia, unspecified; I35.0 Nonrheumatic aortic (valve) stenosis; E86.1 Hypovolemia; G62.9 Polyneuropathy, unspecified; Z85.038 Personal history of other malignant neoplasm of large intestine; Z91.041 Radiographic dye allergy status; Z88.6 Allergy status to analgesic agent; Z88.0 Allergy status to penicillin; Z88.8 Allergy status to other drugs, medicaments and biological substances; Z91.018 Allergy to other foods; Z92.21 Personal history of antineoplastic chemotherapy; Z82.49 Family history of ischemic heart disease and other diseases of the circulatory system; Z82.5 Family history of asthma and other chronic lower respiratory diseases; Z87.891 Personal history of nicotine dependence; Z80.0 Family history of malignant neoplasm of digestive organs; Z22.39 Carrier of other specified bacterial diseases; Z79.82 Long term (current) use of aspirin; Z79.51 Long term (current) use of inhaled steroids; Z99.81 Dependence on supplemental oxygen
CPT/HCPCS: 36415; 71045; 80048; 80053; 81003; 82272; 82728; 83540; 83550; 83605; 83735; 83880; 84484; 85025; 87070; 87077; 87186; 87205; 93005; 94640; 99285; A9270-GY; G0378; G8978-GP-CK; G8979-GP-CI; G8987-GO-CI; G8988-GO-CI; J1100; J1644; J1940

== ENCOUNTER 2018-08-19 17:15 | Inpatient (IN) | payer MEDICARE, BC ==
--- NOTE | 2018-08-19 17:45 | ED ---
Respiratory - HPI Summary HPI Summary: Patient is a 78 y/o F presenting to ED via EMS with complaints of chest congestion, productive cough and SOB. Sx are reported to have onset today, she denies chest pain, N/V, fever, diaphoresis. In the room, she denies abnormal swelling but per triage, "pt with recent weight gain as well, on lasix 60mg and keeps track of daily weight". She notes that she is not SOB while on oxygen. PMHx of AAA, CHF, HLD, HTN, asthma, COPD, PNA, colon CA, arthritis, osteoporosis , tendonitis, migraine. PSHx of empyema removal, left elbow repair, colon resection, hernia repair, left hip replacement. FMHx of cardiac and respiratory disease. She is a former smoker, denies substance and alcohol usage. On triage, pain is denied, nothing is noted to aggravate/alleviate Sx. Home medications and allergies are reviewed. - History of Current Complaint Chief Complaint: EDShortnessOfBreath Stated Complaint: RESP DISTRESS PER EMS Hx Obtained From: Patient Onset/Duration: Lasting Hours - onset today, Still Present Timing: Constant Current Severity: None - pain denied Pain Intensity: 0 Character: Cough (Productive) Aggravating Factor(s): Nothing Alleviating Factor(s): Nothing Associated Signs and Symptoms: SOB - Allergy/Home Medications Allergies/Adverse Reactions: Allergies Allergy/AdvReac Type Severity Reaction Status Date / Time Adhesive Tape Allergy REDDENED Verified 03/18/18 02:12 SKIN codeine Allergy Hives Verified 03/18/18 02:12 iodine Allergy Rash Verified 03/18/18 02:12 Penicillins Allergy Hives Verified 03/18/18 02:12 pineapple AdvReac MOUTH SORE Verified 07/12/18 15:09 tiotropium AdvReac HOARSENESS, Verified 07/12/18 15:09 [From Spiriva with TICKLE IN HandiHaler] THROAT raisins Allergy GI Upset Uncoded 03/18/18 02:12 Home Medications: Home Medications Ibuprofen TAB* [Motrin TAB* 400 MG] 400 mg PO Q6H PRN 08/19/18 [History Confirmed 08/19/18] PMH/Surg Hx/FS Hx/Imm Hx Endocrine/Hematology History: Denies: Hx Anticoagulant Therapy, Hx Diabetes, Hx Thyroid Disease Cardiovascular History: Reports: Hx Aneurysm - AAA diagnosed 05/28/17, Hx Congestive Heart Failure - LACIX, Hx Hypercholesterolemia, Hx Hypertension, Other Cardiovascular Problems/Disorders - HX OF LUNG SURG 2004 RIGHT SIDE. Respiratory History: Reports: Hx Asthma, Hx Chronic Obstructive Pulmonary Disease (COPD), Hx Pneumonia Denies: Hx Sleep Apnea GI History: Reports: Other GI Disorders - Colon CA, current constipation Denies: Hx Ulcer History: Reports: Other Problems/Disorders - Bladder smaller from colon Denies: Hx Dialysis, Hx Renal Disease Musculoskeletal History: Reports: Hx Arthritis, Hx Back Problems, Hx Orthopedic Injury, Hx Osteoporosis, Hx Tendonitis Denies: Hx Bursitis, Hx Scoliosis Sensory History: Reports: Hx Cataracts, Hx Contacts or Glasses Denies: Hx Glaucoma, Hx Hearing Aid, Hx Hearing Problem, Other Sensory Impairments Opthamlomology History: Reports: Hx Cataracts, Hx Contacts or Glasses Denies: Hx Glaucoma, Other Sensory Impairments Neurological History: Reports: Hx Migraine - childhood migraines resolved at 22 years old, Other Neuro Impairments/Disorders - LEFT HIP SX X 2 MO AGO Denies: Hx Headaches, Hx Nerve Disease - Cancer History Cancer Type, Location and Year: COLON 2007, treated with Chemo Hx Chemotherapy: Yes Hx Radiation Therapy: No - Surgical History Surgery Procedure, Year, and Place: Empyema removal 1983, Broken elbow left repair ORIF (plate) Apr 1999 and later hardware removal Colon cancer dx 2007, colon resection. Hernia repair 2009 Partial L Hip Replacement September 2012 Hx Anesthesia Reactions: No - Immunization History Date of Tetanus Vaccine: utd Date of Influenza Vaccine: fall 2017 Infectious Disease History: No Infectious Disease History: Denies: Hx Hepatitis, Hx Human Immunodeficiency Virus (HIV), History Other Infectious Disease, Traveled Outside the [place] in Last 30 Days - Family History Known Family History: Positive: Cardiac Disease, Respiratory Disease, Other - Aortic aneurysm Negative: Blood Disorder - Social History Alcohol Use: None Hx Substance Use: No Substance Use Type: Reports: None Hx Tobacco Use: Yes Smoking Status (MU): Former Smoker Amount Used/How Often: 1 1/2 PPD X 30 YEARS Have You Smoked in the Last Year: No Review of Systems Constitutional: Other - POSITIVE - RECENT WEIGHT GAIN Negative: Fever, Skin Diaphoresis Cardiovascular: Other - POSITIVE - CHEST CONGESTION Negative: Chest Pain Positive: Shortness Of Breath, Cough Negative: Vomiting, Nausea Negative: Edema All Other Systems Reviewed And Are Negative: Yes Physical Exam - Summary Physical Exam Summary: VITAL SIGNS: Reviewed. GENERAL: Patient is a well-developed and obese female who is lying comfortable in the stretcher. Patient is not in any acute respiratory distress and able to speak in complete sentences HEAD AND FACE: No signs of trauma. No ecchymosis, hematomas or skull depressions. No sinus tenderness. EYES: PERRLA, EOMI x 2, No injected conjunctiva, no nystagmus. EARS: Hearing grossly intact. Ear canals and tympanic membranes are within normal limits. MOUTH: Oropharynx within normal limits. Dry oral mucosa NECK: Supple, trachea is midline, no adenopathy, no JVD, no carotid bruit, no c- spine tenderness, neck with full ROM. CHEST: Symmetric, no tenderness at palpation LUNGS: Decreased breath sounds bilaterally, crackles at bases of lungs. CVS: Regular rate and rhythm, S1 and S2 present, no murmurs or gallops appreciated. ABDOMEN: Soft, non-tender. No signs of distention. No rebound no guarding, and no masses palpated. Bowel sounds are normal. EXTREMITIES: FROM in all major joints, no edema, no cyanosis or clubbing. NEURO: Alert and oriented x 3. No acute neurological deficits. Speech is normal and follows commands. SKIN: Dry and warm Triage Information Reviewed: Yes Vital Signs On Initial Exam: Initial Vitals Temp Pulse Resp BP Pulse Ox 98.1 F 110 20 134/80 93 08/19/18 17:24 08/19/18 17:24 08/19/18 17:24 08/19/18 17:24 08/19/18 17:24 Vital Signs Reviewed: Yes Diagnostics - Vital Signs Vital Signs Temp Pulse Resp BP Pulse Ox 08/19/18 17:24 98.1 F 110 20 134/80 93 - Laboratory Result Diagrams: 08/20/18 05:12 08/20/18 05:12 Lab Statement: Any lab studies that have been ordered have been reviewed, and results considered in the medical decision making process. - Radiology CHEST X-RAY Radiology Interpretation Completed By: ED Physician Summary of Radiographic Findings: CXR showed cardiomegaly and interstitial edema. - EKG 1730 Cardiac Rate: NL - rate of 84 BPM EKG Rhythm: Sinus Rhythm Ectopy: PVCs EKG Comparison: No Significant Change - otherwise similar to EKG from 07/14/18 Summary of EKG Findings: EKG showed sinus rhythm with rate of 84 BPM, no ST elevation, multiple PVCs, otherwise similar to EKG from 07/14/18 Disposition - Course Assessment/Plan: This patient is a 78-year-old female who presents to the emergency department with a chief complaint of having shortness of breath. The patient reports that she is having chest congestion dry cough since today. She denies any chest pain, denies any fevers, denies any nausea vomiting or diaphoresis. Patient has past medical history significant for COPD, peripheral neuropathy, lung cancer, hypertension, obesity, total left hip replacement, triple A, hyponatremia, pleural effusions, diastolic CHF acute on chronic, dyslipidemia, anxiety, CAD, aortic stenosis, anemia. The patient is slightly tachycardic, O2 sat is 93% in oxygen. Therefore the patient was placed in a laboratory monitor, IV access was obtained, chest x-ray and labs were ordered. The patient got up to the commode at bedside and O2 sat dropped to 84% what she is in 2 L of oxygen. Patient refused an ABG. Patient was given additional DuoNebs and Solu-Medrol. The patient is improving but still short of breath. Therefore discussed my physical exam, findings and test results with Dr. Vargas from the hospital services will accept patient for admission. - Diagnoses Provider Diagnoses: COPD exacerbation - Physician Notifications Discussed Care Of Patient With: Tiffany Vargas Time Discussed With Above Provider: 21:45 Instructed by Provider To: Other - Patient's case was discussed with Dr. Vargas, Dr. Vargas accepts for admission. Discharge - Sign-Out/Discharge Documenting (check all that apply): Patient Departure - admit Patient Received Moderate/Deep Sedation with Procedure: No - Discharge Plan Condition: Good Disposition: ADMITTED TO [facility] - Billing Disposition and Condition Condition: GOOD Disposition: Admitted to [facility] - Attestation Statements Document Initiated by Sheba: Yes Documenting Scribe: ELISA BRADEN Provider For Whom Sheba is Documenting (Include Credential): SOLOMON RAYMOND MD Scribe Attestation: ELISA Gant, scribed for SOLOMON RAYMOND MD on 08/20/18 at 1058. Scribe Documentation Reviewed: Yes Provider Attestation: The documentation as recorded by the ELISA veliz accurately reflects the service I personally performed and the decisions made by me, SOLOMON RAYMOND MD Status of Scribmichael Document: Viewed
[2018-08-19] MEDS ORDERED: Albuterol/Ipratropium NEB.SOL* Albuterol 2.5 MG/Ipratropium 0.5 MG 3 ML INH ONE ×2 (18:05→21:21)
[2018-08-19 18:20] LABS: Influenza A Molecular NEGATIVE (Negative); Influenza B Molecular NEGATIVE (Negative)
[2018-08-19 19:25] LABS: ABS Basophils 0.1 10^3/ul (0-0.2); ABS Eosinophils 0.2 10^3/ul (0-0.6); ABS Lymphocytes 0.9 10^3/ul (1.0-4.8); ABS Monocytes 0.8 10^3/ul (0-0.8); ABS Neutrophils 4.9 10^3/ul (1.5-7.7); Eosinophil % 3.6 %; Hematocrit 35 % (35-47); Hemoglobin 11.5 g/dL (12.0-16.0); Lymphocyte % 13.1 %; Mean Corpuscular HGB Conc 33 g/dL (31-36); Mean Corpuscular Hemoglobin 31 pg (27-31); Mean Corpuscular Volume 92 fL (80-97); Platelet Count 179 10^3/uL (150-450); Red Blood Count 3.73 10^6 /uL (3.70-4.87); Red Cell Distribution Width 13 % (10.5-15); White Blood Count 6.9 10^3/uL (3.5-10.8)
[2018-08-19 19:34] LABS: INR 0.98 (0.82-1.09)
[2018-08-19 19:37] LABS: ALT 16 U/L (7-52); AST 24 U/L (13-39); Albumin/Globulin Ratio 1.5 (1-3); Alkaline Phosphatase 53 U/L (34-104); Anion Gap 5 mmol/L (2-11); BUN/Creatinine Ratio 25.5 (8-20); Blood Urea Nitrogen 27 mg/dL (6-24); CO2 Carbon Dioxide 35 mmol/L (22-32); Calcium 9.9 mg/dL (8.6-10.3); Chloride 99 mmol/L (101-111); Creatine Kinase 97 U/L (10-223); EGFR African American 60.7 (>60); EGFR Non-African American 50.1 (>60); Globulin 2.6 g/dL (2-4); Glucose 91 mg/dL (70-100); Sodium 139 mmol/L (135-145); Total Protein 6.6 g/dL (6.4-8.9)
[2018-08-19 19:41] LABS: CKMB ng/mL 2.7 ng/mL (0.6-6.3)
[2018-08-19 19:44] LABS: Troponin I 0.05 ng/mL (<0.04)
[2018-08-19 20:37] LABS: C Reactive Protein 17.59 mg/L (<8.01)
[2018-08-19] MEDS ORDERED: methylPREDNISolone 125 MG* 2 ML VIAL IV ONE (21:21)
[2018-08-19 22:32] LABS: Urine Appearance Cloudy; Urine Bilirubin Negative (Negative); Urine Blood Negative (Negative); Urine Color Yellow; Urine Glucose Negative (Negative); Urine Ketones Negative (Negative); Urine Nitrite Negative (Negative); Urine Protein Negative (Negative); Urine Urobilinogen Negative (Negative)
[2018-08-19] MEDS ORDERED: Albuterol 2.5 MG/3 ML NEB.SOL* (0.083%) INH ONE (22:53)
[2018-08-19] MEDS ORDERED: Azithromycin 500 mg/250 ml NS 500 MG/250 ML BAG IVPB ONE (22:56)
[2018-08-19] MEDS ORDERED: Benzonatate CAP* 100 MG PO PRN (22:56)
[2018-08-19] MEDS ORDERED: Cetirizine* 10 MG TAB PO PRN (22:57)
[2018-08-19] MEDS ORDERED: Senna TAB PO PRN (22:59)
[2018-08-19] MEDS ORDERED: Ondansetron INJ* 2 MG/ML VIAL IV PRN (22:59)
[2018-08-19] MEDS ORDERED: Al Hydrox/Mg Hydrox/Simet LIQ* 30 ML UDC PO PRN (22:59)
[2018-08-19] MEDS ORDERED: Albuterol HFA INHALER* 8 gm MDI INH PRN (23:03)
[2018-08-19] MEDS ORDERED: guaiFENesin ER TAB 600 MG PO PRN (23:03)
[2018-08-19] MEDS: LORazepam TAB(*) 0.5 MG PO PRN (23:15)
[2018-08-19 23:27] LABS: Troponin I 0.05 ng/mL (<0.04)
[2018-08-20] MEDS ORDERED: Pseudoephedrine TAB* 60 MG PO PRN (02:17)
--- NOTE | 2018-08-20 02:30 | HP ---
CC: Dr. Zimmer; Sabrina Chester MD * HISTORY AND PHYSICAL: DATE OF ADMISSION: 08/19/18 TIME OF EVALUATION: 2300 PRIMARY CARE PHYSICIAN: Dr. Zimmer. ENVIRONMENTAL DEPARTMENT MANAGER: Sabrina Chester MD CHIEF COMPLAINT: Shortness of breath. HISTORY OF PRESENT ILLNESS: This is a 78-year-old female with a past medical history of COPD, on 4 L and CHF, with a preserved ejection fraction, who presented to the emergency room with 1 day of acute onset of shortness of breath. The patient thinks it was due to the pollen and her allergies. She took a Claritin this morning, but continued to have persistent shortness of breath with dry cough. Her physical therapist came and he bumped her to 5 L and put her on face mask. The physical therapist called the PCP who recommended to go to the emergency room for further evaluation. She denied any fever, no chills. No chest pain. No nausea, vomiting, or diarrhea. No abdominal pain. No urinary symptoms. No rash. No changes in her medications other than adding Claritin today. She states her weight has varied over the past month. On 07/23/18, she was 204, which was recently after her recent discharge on 07/19/18. Her current weight today is 201, yesterday was 202. She states she has been adherent to a low-salt diet. In the emergency room, the patient had labs, imaging. She was given Solu-Medrol 25 mg, 2 DuoNeb and referred to the hospitalist service for further evaluation. PAST MEDICAL HISTORY: 1. As mentioned, admissions from 07/12/18 to 07/19/18 for acute on chronic hypoxic respiratory failure and acute on chronic systolic congestive heart failure. 2. Chronic hypoxic respiratory failure, on 4 L, followed by Dr. Chester. 3. Congestive heart failure with an ejection fraction of 40% to 45%. 4. Anxiety. 5. Iron deficiency anemia. 6. CAD. 7. Aortic stenosis, moderate to severe. 8. Hypertension. 9. Hyperlipidemia. 10. Peripheral neuropathy. 11. History of AAA, followed by Dr. Simon. 12. Osteoporosis. 13. Constipation. 14. Seasonal allergies. MEDICATIONS: Per the patient, has not changed since her discharge from [facility] on 07/19/18, which are as follows: 1. Ferrous sulfate 325 mg p.o. daily. 2. MiraLAX 17 g daily. 3. Lasix 60 mg p.o. daily. 4. Symbicort 160/4.5 two puffs b.i.d. 5. Irbesartan 150 mg p.o. daily. 6. Lyrica 25 mg daily and 50 mg at bedtime. 7. Simvastatin 20 mg at bedtime. 8. Vitamin B complex 1 cap daily. 9. Albuterol 2 puffs 4 times a day as needed for shortness of breath. 10. DuoNeb 4 times a day as needed for shortness of breath. 11. Ascorbic acid 1000 mg daily. 12. Aspirin 81 mg daily. 13. Calcium plus vitamin D daily. 14. Cholecalciferol 400 units daily. 15. Denosumab 60 mg subcu. 16. Colace 100 mg p.o. b.i.d. 17. Mucinex 1 tab p.o. b.i.d. as needed. 18. Ibuprofen 400 mg every 6 hours as needed. 19. Loratadine 10 mg daily as needed for allergy symptoms. 20. Lorazepam 0.5 mg every 6 hours as needed for anxiety. 21. Multivitamin daily. 22. Senna daily. 23. Vitamin E daily. ALLERGIES: ADHESIVE TAPE, CODEINE, IODINE, PENICILLIN, PINEAPPLE, TIOTROPIUM, RAISINS. FAMILY HISTORY: Reviewed and noncontributory. SOCIAL HISTORY: The patient lives at home alone. Her daughter lives next door. She is independent of her ADLs. She uses walker. No recent falls. She quit smoking in 2004, [id number] history. No alcohol use. Confirms she remains a full code. REVIEW OF SYSTEMS: A 14-point review of systems as mentioned in the HPI, otherwise negative. PHYSICAL EXAMINATION GENERAL: Elderly frail female, some mild respiratory distress. VITAL SIGNS: Temperature 98.1, pulse rate 84, respiratory rate 21, oxygen saturation 95% on 5 L, and blood pressure 128/59. HEENT: Head: Normocephalic. Pupils equal and reactive. Oropharynx: Mucous membranes are moist. Erythema in the posterior oropharynx. NECK: Supple. No lymphadenopathy. RESPIRATORY: Diminished breath sounds. Prolonged inspiratory phase, bilateral expiratory wheezing. CARDIAC: Regular rate and rhythm. Systolic murmur heard throughout. Harsh systolic murmur heard most probably at the left sternal base. ABDOMEN: Morbidly obese. EXTREMITIES: Trace pretibial edema. Her left lower extremity is shortened which is chronic. Trace DPs. Significant varicosities in her lower extremities bilaterally. NEUROLOGICAL: Alert and oriented x3. No gross focal neurologic deficits. DIAGNOSTIC STUDIES/LAB DATA: White count 6.9, hemoglobin 11.5, hematocrit 35, platelets 179. INR 0.98. Sodium 139, potassium 4.0, chloride 99, bicarb 35, BUN 27, creatinine 1.06, lactic acid 1.2. Troponin 1.05. CRP is 18. BNP is 412. Radiographic Data: Some mild prominent interstitial markings, improved from prior chest x-ray. EKG shows normal sinus rhythm with PVCs. No significant ST changes. ASSESSMENT: This is a 78-year-old female who has a past medical history of chronic hypoxemic respiratory failure, on 4 L with congestive heart failure as well, who presents to the emergency room with acute onset of shortness of breath and cough. 1. Shortness of breath with cough. Assessment I suspect this is most predominantly a chronic obstructive pulmonary disease exacerbation secondary to seasonal allergies exacerbating her presentation. Her labs are unremarkable though she is persistently coughing with intermittent tachypnea. I am giving her a treatment right now and she did get Solu-Medrol. I do not think this is fluid overload from acute decompensated congestive heart failure. Plan: If she looks better after treatment, I think she will be suitable for the floor, if not we will put her in the ICU on BiPAP for work of breathing. We will give her azithromycin for chronic obstructive pulmonary disease exacerbation. I will start her on prednisone 40 mg daily. I will continue on the Claritin, Flonase, and start her on Singulair as well. The patient may benefit from pulmonary consultation if no clinical improvement. I am going to hold her Lasix for now and will hold off on giving her IV fluids at this time. 2. Chronic medical problems. We will resume her home medications as prescribed with the exception of holding her Lasix tomorrow morning with her increased work of breathing and chronic obstructive pulmonary disease exacerbation. 3. FEN. Heart-healthy diet. 4. DVT prophylaxis. The patient on heparin subcu t.i.d. She is high risk. 5. Code status: Confirms she is a full code. PATIENT TIME: Greater than 50 minutes was spent doing the history and physical , more than half the time spent in direct patient contact. [id number]/[facility] #: [id number] MTDD
[2018-08-20] MEDS: Heparin VIAL(*) 5000 UNITS/ML VIAL (FIVE THOUSAND) SUBCUT SCH ×3 (05:06→22:15)
[2018-08-20] MEDS: Acetaminophen TAB* 325 MG PO PRN ×3 (05:20→20:38)
[2018-08-20 05:26] LABS: ABS Lymphocytes 0.2 10^3/ul (1.0-4.8); ABS Neutrophils 5.1 10^3/ul (1.5-7.7); Eosinophil % 0.1 %; Hematocrit 33 % (35-47); Hemoglobin 10.9 g/dL (12.0-16.0); Lymphocyte % 3.1 %; Mean Corpuscular HGB Conc 33 g/dL (31-36); Mean Corpuscular Hemoglobin 31 pg (27-31); Mean Corpuscular Volume 93 fL (80-97); Mean Platelet Volume 8.7 fL (7.4-10.4); Platelet Count 169 10^3/uL (150-450); Red Blood Count 3.56 10^6 /uL (3.70-4.87); Red Cell Distribution Width 13 % (10.5-15); White Blood Count 5.3 10^3/uL (3.5-10.8)
[2018-08-20 05:51] LABS: BUN/Creatinine Ratio 24.8 (8-20); Calcium 9.2 mg/dL (8.6-10.3); EGFR African American 56.3 (>60); EGFR Non-African American 46.6 (>60); Potassium 4.5 mmol/L (3.5-5.0)
[2018-08-20] MEDS: Mometasone/Formoter 200/5 MDI INH SCH ×2 (08:20→21:18)
[2018-08-20] MEDS: Ascorbic Acid TAB* 500 MG PO SCH (08:24)
[2018-08-20] MEDS: Polyethylene Glycol 3350* 17 GM PACKET PO SCH (08:24)
[2018-08-20] MEDS: Cholecalciferol TAB* 400 UNIT PO SCH (08:25)
[2018-08-20] MEDS: Multivitamins/Minerals TAB PO SCH (08:25)
[2018-08-20] MEDS: Aspirin EC TAB* 81 MG TAB.EC PO SCH (08:25)
[2018-08-20] MEDS: predniSONE TAB* 20 MG PO SCH (08:25)
[2018-08-20] MEDS: Losartan TAB* 25 MG PO SCH (08:25)
[2018-08-20] MEDS: Ferrous Sulfate TAB* 325 MG PO SCH (08:25)
[2018-08-20] MEDS: Pregabalin CAP(*) 25 MG PO SCH (08:25)
[2018-08-20] MEDS: Montelukast Sodium TAB* 10 MG PO SCH (08:25)
[2018-08-20] MEDS: Senna TAB PO SCH ×2 (08:25→20:41)
[2018-08-20] MEDS: Fluticasone NASAL SPRAY 50MCG* 16 gm SPRAY BTL BOTH NARES SCH (08:26)
[2018-08-20] MEDS: Vitamin E CAP* 200 UNITS PO SCH (08:26)
[2018-08-20] MEDS ORDERED: Furosemide TAB* 20 MG PO SCH (09:00)
[2018-08-20] MEDS: Albuterol/Ipratropium NEB.SOL* Albuterol 2.5 MG/Ipratropium 0.5 MG 3 ML INH PRN (10:27)
[2018-08-20] MEDS ORDERED: Furosemide IV* 10 MG/ML VIAL (40 MG) IV ONE (14:24)
--- NOTE | 2018-08-20 15:53 | PN ---
Subjective Date of Service: 08/20/18 Interval History: HD # 2 on 08/20/18 78W with COPD on 4L home O2, HFrEF 40-45%, AAA, colon cancer s/p resection/chemo , presents with subacute progressive dyspnea thought to be COPD exacerbation from seasonal allergies 2/2 to acute onset Overnight,on BiPAP in ICU, eating comfortably this morning, VSS Labs this morning stable. Seen at bedside on 5L NC, baseline is 4L breathing comfortable, can speak full sentences, says feeling better compared yesterday, c/o tightness and wheezing but denies CP, GI, or other MSK complaints. Ambulating to bathroom, we have a discussion about what she thinks may have been allergies and that it did start acutely. 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 This is very similar to prior presentations and in the past she has declined palliative, would be reasonable to continue to keep conversation going Objective Active Medications: Acetaminophen (Tylenol Tab*) 650 mg PO Q4H PRN PRN Reason: FEVER/PAIN Last Admin: 08/20/18 11:46 Dose: 650 mg Al Hydrox/Mg Hydrox/Simethicone (Maalox Plus*) 30 ml PO Q6H PRN PRN Reason: INDIGESTION Albuterol (Ventolin 2.5 Mg/3 Ml Neb.Lisandra*) 2.5 mg INH [id number] AWAKE PRN PRN Reason: sob/wheezing Albuterol (Ventolin Hfa Inhaler*) 2 puff INH QID PRN PRN Reason: COUGH Albuterol/Ipratropium (Duoneb (Albuterol 2.5 Mg/Ipratropium 0.5 Mg)) 1 neb INH QID PRN PRN Reason: SHORTNESS OF BREATH Last Admin: 08/20/18 10:27 Dose: 1 neb Ascorbic Acid (Vitamin C Tab*) 1,000 mg PO DAILY [facility] Last Admin: 08/20/18 08:24 Dose: 1,000 mg Aspirin (Aspirin Ec Tab*) 81 mg PO DAILY [facility] Last Admin: 08/20/18 08:25 Dose: 81 mg Atorvastatin Calcium (Lipitor*) 10 mg PO BEDTIME [facility] Benzonatate (Tessalon Cap*) 200 mg PO TID PRN PRN Reason: COUGH Cetirizine HCl (Zyrtec*) 10 mg PO DAILY PRN PRN Reason: congestion/allergies Cholecalciferol (Vitamin D Tab*) 400 unit PO DAILY [facility] Last Admin: 08/20/18 08:25 Dose: 400 unit Docusate Sodium (Colace Cap*) 100 mg PO BID PRN PRN Reason: CONSTIPATION Ferrous Sulfate (Ferrous Sulfate Tab*) 325 mg PO DAILY [facility] Last Admin: 08/20/18 08:25 Dose: 325 mg Fluticasone Propionate (Flonase Nasal [place] 50mcg*) 2 spray BOTH NARES DAILY [facility] Last Admin: 08/20/18 08:26 Dose: 2 spray Guaifenesin (Mucinex*) 600 mg PO BID PRN PRN Reason: CONGESTION Last Admin: 08/20/18 10:46 Dose: 600 mg Heparin Sodium (Porcine) (Heparin Vial(*)) 5,000 units SUBCUT Q8HR [facility] Last Admin: 08/20/18 13:47 Dose: 5,000 units Azithromycin 250 mg/ Sodium (Chloride) 250 mls @ 250 mls/hr IVPB Q24H [facility] Ibuprofen (Motrin Tab*) 400 mg PO Q6H PRN PRN Reason: FEVER/PAIN Lorazepam (Ativan Tab(*)) 0.5 mg PO Q6H PRN PRN Reason: ANXIETY Last Admin: 08/19/18 23:15 Dose: 0.5 mg Losartan Potassium (Cozaar Tab*) 50 mg PO DAILY [facility] Last Admin: 08/20/18 08:25 Dose: 50 mg Mometasone Furoate/Formoterol Fumar (Dulera 200/5 Mdi*) 2 puff INH BID [facility]; Protocol Last Admin: 08/20/18 08:20 Dose: 2 puff Montelukast Sodium (Singulair Tab*) 10 mg PO DAILY [facility] Last Admin: 08/20/18 08:25 Dose: 10 mg Multivitamins/Minerals (Theragran/Minerals Tab*) 1 tab PO DAILY [facility] Last Admin: 08/20/18 08:25 Dose: 1 tab Ondansetron HCl (Zofran Inj*) 4 mg IV Q4H PRN PRN Reason: NAUSEA/VOMITING Polyethylene Glycol/Electrolytes (Miralax*) 17 gm PO DAILY [facility] Last Admin: 08/20/18 08:24 Dose: 17 gm Prednisone (Deltasone Tab*) 40 mg PO DAILY [facility] Last Admin: 08/20/18 08:25 Dose: 40 mg Pregabalin (Lyrica Cap(*)) 25 mg PO DAILY [facility] Last Admin: 08/20/18 08:25 Dose: 25 mg Pregabalin (Lyrica Cap(*)) 50 mg PO BEDTIME [facility] Pseudoephedrine HCl (Sudafed Tab*) 60 mg PO BID PRN PRN Reason: CONEGSTION Senna (Senokot Tab*) 1 tab PO BID [facility] Last Admin: 08/20/18 08:25 Dose: 1 tab Vitamin E (Vitamin E Cap*) 200 units PO DAILY [facility] Last Admin: 08/20/18 08:26 Dose: 200 units Vital Signs - 8 hr 08/20/18 08/20/18 08/20/18 08:00 08:21 09:00 Temperature 97.9 F Pulse Rate 84 90 87 Respiratory 20 21 19 Rate Blood Pressure 142/88 105/60 (mmHg) O2 Sat by Pulse 93 89 95 Oximetry 08/20/18 08/20/18 08/20/18 10:00 10:28 11:24 Temperature Pulse Rate 87 87 Respiratory 23 19 25 Rate Blood Pressure (mmHg) O2 Sat by Pulse 97 96 Oximetry 08/20/18 11:26 Temperature 98 F Pulse Rate 96 Respiratory 25 Rate Blood Pressure 143/77 (mmHg) O2 Sat by Pulse 92 Oximetry Oxygen Devices in Use Now: Nasal Cannula Appearance: Pleasant woman in NAD Ears/Nose/Mouth/Throat: NL Teeth, Lips, Gums Neck: NL Appearance and Movements; NL JVP Respiratory: Symmetrical Chest Expansion and Respiratory Effort, - - Distant, fair air movement Cardiovascular: NL Sounds; No Murmurs; No JVD, RRR Abdominal: NL Sounds; No Tenderness; No Distention, No Hepatosplenomegaly Lymphatic: No Cervical Adenopathy Skin: No Rash or Ulcers Neurological: Alert and Oriented x 3 Result Diagrams: 08/20/18 05:12 08/20/18 05:12 Microbiology and Other Data: Microbiology 08/20/18 01:30 Nasal Screen MRSA (PCR) - Final Nasal Mrsa Not Detected Assess/Plan/Problems-Billing Assessment: 78W with COPD on 4L home O2, HFrEF 40-45%, AAA, colon cancer s/p resection/chemo , presents with subacute progressive dyspnea thought to be COPD exacerbation from seasonal allergies 2/2 to acute onset - Patient Problems (1) COPD exacerbation Current Visit: No Status: Acute Code(s): J44.1 - CHRONIC OBSTRUCTIVE PULMONARY DISEASE W (ACUTE) EXACERBATION SNOMED Code(s): 826644572 Comment: Appears to be COPD triggered by allergies, she is very tenuous at baseline and often has prolonged wean of steroid - Continue on Azithro for anti inflammatory component, Day 2/5 on 08/20 - Continue steroid taper, now on 40mg and bronchodilators. (2) Acute and chronic respiratory failure with hypoxia Current Visit: No Status: Acute Code(s): J96.21 - ACUTE AND CHRONIC RESPIRATORY FAILURE WITH HYPOXIA SNOMED Code(s): 25994622 Comment: - Secondary to COPD > CHF - 4L NC is baseline - Consider PATH vs AIM (3) Congestive heart failure (CHF) Current Visit: No Status: Acute Code(s): I50.9 - HEART FAILURE, UNSPECIFIED SNOMED Code(s): 74868240 Comment: - Previous EF 25-30% (Mar 2018), now 40-45%. - cont furosemide - on ASA and statin - pt with nonobstructive CAD on cath 04/2018 (4) Anemia Current Visit: No Status: Acute Code(s): D64.9 - ANEMIA, UNSPECIFIED SNOMED Code(s): 525271826 Comment: - Workup done on last hospitalization appears ACD, [facility] (5) Anxiety Current Visit: No Status: Acute Code(s): F41.9 - ANXIETY DISORDER, UNSPECIFIED SNOMED Code(s): 97668998 Comment: - Exacerbated by dyspnea - Continue lorazepam - Also on Lyrica for pain control (6) Aortic stenosis Current Visit: No Status: Acute Code(s): I35.0 - NONRHEUMATIC AORTIC (VALVE ) STENOSIS SNOMED Code(s): 27008922 Comment: - Recent echo shows moderate to severe - Discussion with cardiology last hospitlization did not think current resp sx factor in from (7) CAD (coronary artery disease) Current Visit: No Status: Acute Code(s): I25.10 - ATHSCL HEART DISEASE OF [place] CORONARY ARTERY W/O ANG PCTRS SNOMED Code(s): 08168295 Comment: - Asa, statin, mild elevated troponin in setting of dyspnea (8) DVT prophylaxis Current Visit: No Status: Acute Code(s): MBN2029 - SNOMED Code(s): 950309320 Comment: - [facility] (9) Full code status Current Visit: No Status: Acute Code(s): Z78.9 - OTHER SPECIFIED HEALTH STATUS SNOMED Code(s): 773117605 Comment: Status and Disposition: Inpatient, home with VNS on d/c
[2018-08-20] MEDS: Pregabalin CAP(*) 50 MG PO SCH (20:39)
[2018-08-20] MEDS: Atorvastatin* 10 MG TAB PO SCH (20:39)
[2018-08-20] MEDS: Albuterol 2.5 MG/3 ML NEB.SOL* (0.083%) INH PRN (21:23)
[2018-08-20] MEDS: Docusate CAP* 100 MG PO PRN (22:14)
[2018-08-20] MEDS: LORazepam TAB(*) 0.5 MG PO PRN (22:14)
[2018-08-20] MEDS ORDERED: Azithromycin IV(*) 250 MG in NS 0.9% 250 ML* 250 ML IVPB SCH (23:00)
[2018-08-21] MEDS: Acetaminophen TAB* 325 MG PO PRN ×2 (01:50→09:00)
[2018-08-21] MEDS: Ibuprofen TAB* 400 MG PO PRN ×3 (04:12→19:13)
[2018-08-21] MEDS: Heparin VIAL(*) 5000 UNITS/ML VIAL (FIVE THOUSAND) SUBCUT SCH ×3 (04:57→22:15)
[2018-08-21 06:14] LABS: ABS Eosinophils 0.1 10^3/ul (0-0.6); ABS Lymphocytes 0.8 10^3/ul (1.0-4.8); ABS Monocytes 0.9 10^3/ul (0-0.8); ABS Neutrophils 5.1 10^3/ul (1.5-7.7); Eosinophil % 1.2 %; Hematocrit 31 % (35-47); Hemoglobin 10.2 g/dL (12.0-16.0); Lymphocyte % 11.8 %; Mean Corpuscular HGB Conc 33 g/dL (31-36); Mean Corpuscular Hemoglobin 31 pg (27-31); Mean Corpuscular Volume 92 fL (80-97); Mean Platelet Volume 8.7 fL (7.4-10.4); Platelet Count 178 10^3/uL (150-450); Red Blood Count 3.34 10^6 /uL (3.70-4.87); Red Cell Distribution Width 13 % (10.5-15); White Blood Count 6.9 10^3/uL (3.5-10.8)
[2018-08-21 06:46] LABS: BUN/Creatinine Ratio 28.8 (8-20); Calcium 8.8 mg/dL (8.6-10.3); EGFR African American 57.5 (>60); EGFR Non-African American 47.5 (>60); Potassium 4.1 mmol/L (3.5-5.0)
[2018-08-21 06:50] LABS: Troponin I 0.05 ng/mL (<0.04)
[2018-08-21] MEDS: Fluticasone NASAL SPRAY 50MCG* 16 gm SPRAY BTL BOTH NARES SCH (08:57)
[2018-08-21] MEDS: Losartan TAB* 25 MG PO SCH (08:57)
[2018-08-21] MEDS: Senna TAB PO SCH ×2 (08:58→20:24)
[2018-08-21] MEDS: Multivitamins/Minerals TAB PO SCH (08:58)
[2018-08-21] MEDS: predniSONE TAB* 20 MG PO SCH (08:59)
[2018-08-21] MEDS: Ascorbic Acid TAB* 500 MG PO SCH (08:59)
[2018-08-21] MEDS: Pregabalin CAP(*) 25 MG PO SCH (08:59)
[2018-08-21] MEDS: Montelukast Sodium TAB* 10 MG PO SCH (08:59)
[2018-08-21] MEDS: Polyethylene Glycol 3350* 17 GM PACKET PO SCH (09:00)
[2018-08-21] MEDS ORDERED: Furosemide TAB* 20 MG PO SCH (09:00)
[2018-08-21] MEDS: Albuterol 2.5 MG/3 ML NEB.SOL* (0.083%) INH PRN ×3 (09:00→21:09)
[2018-08-21] MEDS: Cholecalciferol TAB* 400 UNIT PO SCH (09:00)
[2018-08-21] MEDS: Vitamin E CAP* 200 UNITS PO SCH (09:01)
[2018-08-21] MEDS: Ferrous Sulfate TAB* 325 MG PO SCH (09:01)
[2018-08-21] MEDS: Aspirin EC TAB* 81 MG TAB.EC PO SCH (09:01)
[2018-08-21] MEDS: Mometasone/Formoter 200/5 MDI INH SCH ×2 (09:40→21:09)
--- NOTE | 2018-08-21 17:05 | PN ---
Subjective Date of Service: 08/21/18 Interval History: Seen in her room this morning. She was resting laying comfortably. denies any acute distress Social History: Unchanged from Admission Past Medical History: Unchanged from Admission Objective Active Medications: Acetaminophen (Tylenol Tab*) 650 mg PO Q4H PRN PRN Reason: FEVER/PAIN Last Admin: 08/21/18 09:00 Dose: 650 mg Al Hydrox/Mg Hydrox/Simethicone (Maalox Plus*) 30 ml PO Q6H PRN PRN Reason: INDIGESTION Albuterol (Ventolin 2.5 Mg/3 Ml Neb.Lisandra*) 2.5 mg INH [id number] AWAKE PRN PRN Reason: sob/wheezing Last Admin: 08/21/18 13:00 Dose: 2.5 mg Albuterol (Ventolin Hfa Inhaler*) 2 puff INH QID PRN PRN Reason: COUGH Albuterol/Ipratropium (Duoneb (Albuterol 2.5 Mg/Ipratropium 0.5 Mg)) 1 neb INH QID PRN PRN Reason: SHORTNESS OF BREATH Last Admin: 08/20/18 10:27 Dose: 1 neb Ascorbic Acid (Vitamin C Tab*) 1,[address] [facility] Last Admin: 08/21/18 08:59 Dose: 1,000 mg Aspirin (Aspirin Ec Tab*) [address] [facility] Last Admin: 08/21/18 09:01 Dose: 81 mg Atorvastatin Calcium (Lipitor*) [address] [facility] Last Admin: 08/20/18 20:39 Dose: 10 mg Benzonatate (Tessalon Cap*) 200 mg PO TID PRN PRN Reason: COUGH Cetirizine HCl (Zyrtec*) 10 mg PO DAILY PRN PRN Reason: congestion/allergies Cholecalciferol (Vitamin D Tab*) [address] [facility] Last Admin: 08/21/18 09:00 Dose: 400 unit Docusate Sodium (Colace Cap*) 100 mg PO BID PRN PRN Reason: CONSTIPATION Last Admin: 08/20/18 22:14 Dose: 100 mg Ferrous Sulfate (Ferrous Sulfate Tab*) [address] [facility] Last Admin: 08/21/18 09:01 Dose: 325 mg Fluticasone Propionate (Flonase Nasal [place] 50mcg*) 2 spray [address]OTH N[address]ES DAILY [facility] Last Admin: 08/21/18 08:57 Dose: 2 spray Guaifenesin (Mucinex*) 600 mg PO BID PRN PRN Reason: CONGESTION Last Admin: 08/20/18 10:46 Dose: 600 mg Heparin Sodium (Porcine) (Heparin Vial(*)) 5,[address] [facility] Last Admin: 08/21/18 15:02 Dose: 5,000 units Azithromycin 250 mg/ Sodium (Chloride) 250 mls @ 250 mls/hr IVPB Q24H [facility] Last Admin: 08/20/18 22:16 Dose: 250 mls/hr Ibuprofen (Motrin Tab*) 400 mg PO Q6H PRN PRN Reason: FEVER/PAIN Last Admin: 08/21/18 10:32 Dose: 400 mg Lorazepam (Ativan Tab(*)) 0.5 mg PO Q6H PRN PRN Reason: ANXIETY Last Admin: 08/20/18 22:14 Dose: 0.5 mg Losartan Potassium (Cozaar Tab*) [address] [facility] Last Admin: 08/21/18 08:57 Dose: 50 mg Mometasone Furoate/Formoterol Fumar (Dulera 200/5 Mdi*) [address] [facility]; Protocol Last Admin: 08/21/18 09:40 Dose: 2 puff Montelukast Sodium (Singulair Tab*) [address] [facility] Last Admin: 08/21/18 08:59 Dose: 10 mg Multivitamins/Minerals (Theragran/Minerals Tab*) [address] [facility] Last Admin: 08/21/18 08:58 Dose: 1 tab Ondansetron HCl (Zofran Inj*) 4 mg IV Q4H PRN PRN Reason: NAUSEA/VOMITING Polyethylene Glycol/Electrolytes (Miralax*) [address] [facility] Last Admin: 08/21/18 09:00 Dose: 17 gm Prednisone (Deltasone Tab*) [address] [facility] Last Admin: 08/21/18 08:59 Dose: 40 mg Pregabalin (Lyrica Cap(*)) [address] [facility] Last Admin: 08/21/18 08:59 Dose: 25 mg Pregabalin (Lyrica Cap(*)) [address] [facility] Last Admin: 08/20/18 20:39 Dose: 50 mg Pseudoephedrine HCl (Sudafed Tab*) 60 mg PO BID PRN PRN Reason: CONEGSTION Senna (Senokot Tab*) [address] [facility] Last Admin: 08/21/18 08:58 Dose: 1 tab Vitamin E (Vitamin E Cap*) [address] [facility] Last Admin: 08/21/18 09:01 Dose: 200 units Vital Signs - 8 hr 08/21/18 08/21/18 08/21/18 09:42 12:57 15:38 Temperature 98.2 F Pulse Rate 75 77 Respiratory 22 21 18 Rate Blood Pressure 126/65 (mmHg) O2 Sat by Pulse 98 97 Oximetry Oxygen Devices in Use Now: Nasal Cannula Appearance: in chair, comfortably Eyes: No Scleral Icterus, - - EOMI Ears/Nose/Mouth/Throat: NL Teeth, Lips, Gums, Mucous Membranes Moist Neck: NL Appearance and Movements; NL JVP, Trachea Midline Respiratory: Symmetrical Chest Expansion and Respiratory Effort, - - expiratory wheezing and distant breath sounds. diminised at bases Cardiovascular: NL Sounds; No Murmurs; No JVD, No Edema Abdominal: NL Sounds; No Tenderness; No Distention Neurological: Alert and Oriented x 3 Result Diagrams: 08/21/18 05:56 08/21/18 05:56 Microbiology and Other Data: Microbiology 08/20/18 01:30 Nasal Screen MRSA (PCR) - Final Nasal Mrsa Not Detected Assess/Plan/Problems-Billing Assessment: 78W with COPD on 4L home O2, HFrEF 40-45%, AAA, colon cancer s/p resection/chemo , presents with subacute progressive dyspnea thought to be COPD exacerbation from seasonal allergies 2/2 to acute onset - Patient Problems (1) Acute and chronic respiratory failure with hypoxia Current Visit: No Status: Acute Code(s): J96.21 - ACUTE AND CHRONIC RESPIRATORY FAILURE WITH HYPOXIA SNOMED Code(s): 17492877 Comment: - Resolved - Secondary to COPD exacerbations as the main etiologyto her respiratory failure complicated with known history of CHF - 4L NC is baseline (2) Congestive heart failure (CHF) Current Visit: No Status: Acute Code(s): I50.9 - HEART FAILURE, UNSPECIFIED SNOMED Code(s): 94555551 Comment: - Previous EF 25-30% (Mar 2018), now 40-45%. - cont furosemide careful with the degree of , and on losartan as well. high risk of hypotension - on ASA and statin - pt with nonobstructive CAD on cath 04/2018 (3) Aortic stenosis Current Visit: No Status: Acute Code(s): I35.0 - NONRHEUMATIC AORTIC (VALVE ) STENOSIS SNOMED Code(s): 39620628 Comment: - Recent echo 06/21/18 EF 45% and shows moderate to severe SHADIA 0.88 cm 2 - Will need cardiac re-evaluation for her Aortic Valve and possible referral for intervention if she continue to have Respiratory failure (4) Anemia Current Visit: No Status: Acute Code(s): D64.9 - ANEMIA, UNSPECIFIED SNOMED Code(s): 143508276 Comment: - Workup done on last hospitalization appears Anemia of chronic disease (5) Anxiety Current Visit: No Status: Acute Code(s): F41.9 - ANXIETY DISORDER, UNSPECIFIED SNOMED Code(s): 98548189 Comment: - Exacerbated by dyspnea - Continue lorazepam - Also on Lyrica for pain control (6) CAD (coronary artery disease) Current Visit: No Status: Acute Code(s): I25.10 - ATHSCL HEART DISEASE OF [place] CORONARY ARTERY W/O ANG PCTRS SNOMED Code(s): 64712675 Comment: - ASA, liptor 10, losartan 50 mg , mild elevated troponin 0.05 in setting of dyspnea. stable at this time. - (7) COPD exacerbation Current Visit: No Status: Acute Code(s): J44.1 - CHRONIC OBSTRUCTIVE PULMONARY DISEASE W (ACUTE) EXACERBATION SNOMED Code(s): 246175596 Comment: - Appears to be COPD triggered by allergies, she is very tenuous at baseline and often has prolonged wean of steroid - Continue on Azithro will change to po for anti inflammatory component, Day 3/ 5 on 08/21 - Continue steroid taper, now on 40mg and bronchodilators. (8) Colon cancer Current Visit: No Status: Chronic Comment: Dr. Cm follows as outpatient. s /p remote colectomy (9) HTN (hypertension) Current Visit: No Status: Chronic Code(s): I10 - ESSENTIAL (PRIMARY) HYPERTENSION SNOMED Code(s): 29133524 Comment: - Normotensive - Continue losartan - Lasix will monitor for hypotension in light of her severe (10) Abdominal aortic aneurysm (AAA) 30 to 34 mm in diameter Current Visit: No Status: Acute Code(s): I71.4 - ABDOMINAL AORTIC ANEURYSM, WITHOUT RUPTURE SNOMED Code(s): 673902834 Comment: - US 07/22/18 Reveals 2.8 cm - Continue outpatient surveillance (11) DVT prophylaxis Current Visit: No Status: Acute Code(s): JFO8595 - SNOMED Code(s): 732276265 Comment: - [facility] Status and Disposition: Inpatient, home with VNS on d/c
[2018-08-21] MEDS: Albuterol/Ipratropium NEB.SOL* Albuterol 2.5 MG/Ipratropium 0.5 MG 3 ML INH PRN (17:18)
[2018-08-21] MEDS: Furosemide TAB* 40 MG PO SCH (17:58)
[2018-08-21] MEDS ORDERED: Cyclobenzaprine TAB* 10 MG PO ONE (19:15)
[2018-08-21] MEDS: Pregabalin CAP(*) 50 MG PO SCH (20:22)
[2018-08-21] MEDS: Atorvastatin* 10 MG TAB PO SCH (20:22)
[2018-08-21] MEDS ORDERED: Azithromycin TAB* 250 MG PO SCH (21:00)
[2018-08-21] MEDS: LORazepam TAB(*) 0.5 MG PO PRN (22:14)
[2018-08-21] MEDS: Docusate CAP* 100 MG PO PRN (22:15)
[2018-08-22] MEDS: Acetaminophen TAB* 325 MG PO PRN ×2 (00:10→09:22)
[2018-08-22] MEDS: traMADol TAB* 50 MG PO PRN ×2 (02:59→11:44)
[2018-08-22] MEDS: Heparin VIAL(*) 5000 UNITS/ML VIAL (FIVE THOUSAND) SUBCUT SCH ×2 (05:12→13:33)
[2018-08-22 06:29] LABS: ABS Eosinophils 0.1 10^3/ul (0-0.6); ABS Lymphocytes 0.7 10^3/ul (1.0-4.8); ABS Monocytes 0.9 10^3/ul (0-0.8); ABS Neutrophils 4.3 10^3/ul (1.5-7.7); Hematocrit 32 % (35-47); Hemoglobin 10.6 g/dL (12.0-16.0); Lymphocyte % 12.4 %; Mean Corpuscular HGB Conc 33 g/dL (31-36); Mean Corpuscular Hemoglobin 31 pg (27-31); Mean Corpuscular Volume 93 fL (80-97); Mean Platelet Volume 8.6 fL (7.4-10.4); Platelet Count 193 10^3/uL (150-450); Red Blood Count 3.47 10^6 /uL (3.70-4.87); Red Cell Distribution Width 13 % (10.5-15)
[2018-08-22 06:49] LABS: BUN/Creatinine Ratio 26.6 (8-20); Calcium 8.6 mg/dL (8.6-10.3); EGFR African American 58.7 (>60); EGFR Non-African American 48.5 (>60); Magnesium 2.2 mg/dL (1.9-2.7); Phosphorus 3.5 mg/dL (2.5-5.0); Potassium 4.2 mmol/L (3.5-5.0)
[2018-08-22] MEDS: Mometasone/Formoter 200/5 MDI INH SCH (08:57)
[2018-08-22] MEDS: Albuterol 2.5 MG/3 ML NEB.SOL* (0.083%) INH PRN (08:57)
[2018-08-22] MEDS: Losartan TAB* 25 MG PO SCH (09:21)
[2018-08-22] MEDS: predniSONE TAB* 20 MG PO SCH (09:21)
[2018-08-22] MEDS: Polyethylene Glycol 3350* 17 GM PACKET PO SCH (09:21)
[2018-08-22] MEDS: Aspirin EC TAB* 81 MG TAB.EC PO SCH (09:22)
[2018-08-22] MEDS: Pregabalin CAP(*) 25 MG PO SCH (09:22)
[2018-08-22] MEDS: Senna TAB PO SCH (09:22)
[2018-08-22] MEDS: Ferrous Sulfate TAB* 325 MG PO SCH (09:23)
[2018-08-22] MEDS: Ascorbic Acid TAB* 500 MG PO SCH (09:23)
[2018-08-22] MEDS: Montelukast Sodium TAB* 10 MG PO SCH (09:23)
[2018-08-22] MEDS: Furosemide TAB* 40 MG PO SCH (09:23)
[2018-08-22] MEDS: Cholecalciferol TAB* 400 UNIT PO SCH (09:23)
[2018-08-22] MEDS: Multivitamins/Minerals TAB PO SCH (09:23)
[2018-08-22] MEDS: Vitamin E CAP* 200 UNITS PO SCH (09:24)
[2018-08-22] MEDS: Fluticasone NASAL SPRAY 50MCG* 16 gm SPRAY BTL BOTH NARES SCH (09:24)
[2018-08-22] MEDS ORDERED: Furosemide TAB* 20 MG PO ONE (11:19)
[2018-08-22 14:33] VITALS: BP 129/74
--- NOTE | 2018-08-22 22:51 | DS ---
CC: Echo Rivero NP; Dr. Oskar Shultz* DISCHARGE SUMMARY: DATE OF ADMISSION: 08/19/18 DATE OF DISCHARGE: 08/22/18 PRIMARY CARE PROVIDER: Echo Rivero NP FINAL DISCHARGE DIAGNOSES: 1. Shortness of breath secondary to chronic obstructive pulmonary disease exacerbation combined with acute on chronic diastolic heart failure. 2. Aortic stenosis, severe. 3. Anemia. 4. Anxiety. 5. Osteoarthritis, right hip. 6. Coronary artery disease. 7. Hypertension. 8. History of colon cancer. HOSPITAL COURSE: The patient presented to [facility] on 08/19[facility]18 with shortness of breath, thinking it is due to allergy from pollen, did not improve with her [id number] Claritin. While she was doing therapy with her physical therapist, her oxygen requirement increased from 4 to 5 L. He called the PCP who recommended to take the patient to the emergency room. In the emergency room, she was giving Solu-Medrol treatment, DuoNeb, and admitted to medical service. The patient's saturation was 95% on 5 L, started on azithromycin and prednisone. The following day the patient appeared to be doing fairly well with her oxygenation. She remained on between 4 L and 5 L of nasal cannula. I saw the patient initially on 08/21/18 and then 08/22/18, and today, she was evaluated. She seemed very comfortable, resting, in no distress. I resumed her Lasix at 60 mg and I will continue her prednisone along with the Zithromax and I deemed her stable for discharge. DISCHARGE PHYSICAL EXAM: Vital Signs: Temperature 97.9, respiratory rate 16, saturation 100% on 5 L, blood pressure 129/74. General: She is awake, alert, pleasant, in no distress, resting comfortable, complaining of the right hip pain. Head and Neck: Normocephalic, atraumatic. Supple. Lungs: Fine expiratory wheezing. No rhonchi. Abdomen: Obese. Positive bowel sounds, soft. Extremities: +1 edema with chronic osteoarthritic changes. DISCHARGE RECOMMENDATIONS: 1. Follow up with Dr. Oskar Shultz regarding her aortic stenosis, to keep her appointment as scheduled. 2. Follow up with her primary care, Echo Rivero. DISCHARGE MEDICATIONS: 1. Azithromycin 250 mg daily for 2 more days. 2. Tessalon [place] 200 mg t.i.d. as needed. 3. Mucinex p.r.n. 4. Singulair 10 mg daily. 5. Prednisone 40 mg for 3 days, 30 mg for 3 days, 20 mg for 3 days, and 10 mg for 3 days. Continue the remaining of her home medications as follows: 1. Vitamin B complex. 2. Vitamin C. 3. Multivitamin daily. 4. Simvastatin 20 daily. 5. Avapro 150 daily. 6. DuoNeb. 7. Calcium with vitamin D. 8. Senna. 9. Lorazepam 0.5 every 6 hours as needed. 10. Loratadine 10 mg daily. 11. Vitamin D daily. 12. Symbicort. 13. Lyrica 50 mg at bedtime, 25 mg in the morning. 14. Prolia 60 mg subcutaneous. 15. Vitamin E. 16. Aspirin 81 mg daily. 17. Iron 325 daily. 18. Lasix 60 mg daily. 19. MiraLAX p.r.n. 20. Colace p.r.n. 21. Ibuprofen p.r.n. It should be noted that the patient was asking for tramadol for the right hip pain for which at this time I did not approve, as she is on Lyrica along with the Tylenol and ibuprofen. DISCHARGE DISPOSITION: Home. DISCHARGE CONDITION: Stable. [id number]/[facility] #: [id number] EULALIO
== END 2018-08-22 15:41 | disposition home or self-care (01) | DRG 291 ==
LOC: ED 17:15 → ICU 22:59 → MEDTELE 08-20 09:00
PROVIDERS: ADMIT Pediatrics; ATTEND Internal Medicine
DX: I11.0 Hypertensive heart disease with heart failure (principal); J96.21 Acute and chronic respiratory failure with hypoxia; J44.1 Chronic obstructive pulmonary disease with (acute) exacerbation; I50.33 Acute on chronic diastolic (congestive) heart failure; I35.0 Nonrheumatic aortic (valve) stenosis; F41.9 Anxiety disorder, unspecified; M16.11 Unilateral primary osteoarthritis, right hip; I25.10 Atherosclerotic heart disease of native coronary artery without angina pectoris; I71.4 Abdominal aortic aneurysm, without rupture; D50.9 Iron deficiency anemia, unspecified; E78.5 Hyperlipidemia, unspecified; M81.0 Age-related osteoporosis without current pathological fracture; G43.909 Migraine, unspecified, not intractable, without status migrainosus; Z96.642 Presence of left artificial hip joint; R54 Age-related physical debility; E78.00 Pure hypercholesterolemia, unspecified; M19.90 Unspecified osteoarthritis, unspecified site; H26.9 Unspecified cataract; E66.9 Obesity, unspecified; G62.9 Polyneuropathy, unspecified; Z82.49 Family history of ischemic heart disease and other diseases of the circulatory system; Z85.038 Personal history of other malignant neoplasm of large intestine; Z99.81 Dependence on supplemental oxygen; Z79.82 Long term (current) use of aspirin; Z92.21 Personal history of antineoplastic chemotherapy; Z83.6 Family history of other diseases of the respiratory system; Z88.0 Allergy status to penicillin; Z88.8 Allergy status to other drugs, medicaments and biological substances; Z91.018 Allergy to other foods; Z87.891 Personal history of nicotine dependence; Z85.118 Personal history of other malignant neoplasm of bronchus and lung; Z68.36 Body mass index [BMI] 36.0-36.9, adult
CPT/HCPCS: 36415; 71046; 80048; 80053; 81003; 82550; 82553; 83605; 83735; 83880; 84100; 84484; 85025; 85379; 85610; 85730; 86140; 87040; 87641; 93005; 94640; 94660; 99285; A9270-GY; J0456; J1644; J1940; J2930; J7512

== ENCOUNTER 2018-09-04 19:51 | Emergency (ER) | payer MEDICARE, BC ==
[2018-09-04 20:01] VITALS: BP 100/62
--- NOTE | 2018-09-04 20:26 | UC ---
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 to have callous shaved off I still has not healed no fever no DM has take IV cephalasporins in past without issue - History of Current Complaint Chief Complaint: UCLowerExtremity Stated Complaint: SORE ON TOE Time Seen by Provider: 09/04/18 20:03 Hx Obtained From: Patient Onset/Duration: Sudden Onset, Lasting Hours, Lasting Days Severity Currently: Moderate Pain Intensity: 0 Pain Scale Used: 0-10 Numeric Aggravating Factor(s): Standing, Ambulation Alleviating Factor(s): Rest, Elevation Able to Bear Weight: Yes Feet (Multiple View): 1 - surgical site 2 - redness/swelling, no pus - Allergies/Home Medications Allergies/Adverse Reactions: Allergies Allergy/AdvReac Type Severity Reaction Status Date / Time Adhesive Tape Allergy REDDENED Verified 09/04/18 20:01 SKIN codeine Allergy Hives Verified 09/04/18 20:01 iodine Allergy Rash Verified 09/04/18 20:01 Penicillins Allergy Hives Verified 09/04/18 20:01 pineapple AdvReac MOUTH SORE Verified 09/04/18 20:01 tiotropium AdvReac HOARSENESS, Verified 09/04/18 20:01 [From Spiriva with TICKLE IN HandiHaler] THROAT raisins Allergy GI Upset Uncoded 09/04/18 20:01 Home Medications: Home Medications Docusate CAP* [Colace Cap*] 100 mg PO DAILY 09/04/18 [History Confirmed 09/04/18 ] PMH/Surg Hx/FS Hx/Imm Hx Previously Healthy: No Endocrine History: Dyslipidemia Cardiovascular History: Hypertension Respiratory History: COPD Cancer History: Colorectal Cancer Other History Of: Negative For: Anticoagulant Therapy - Surgical History Surgical History: Yes Surgery Procedure, Year, and Place: Empyema removal 1983, Broken elbow left repair ORIF (plate) Apr 1999 and later hardware removal Colon cancer dx 2007, colon resection. Hernia repair 2009 Partial L Hip Replacement September 2012 - Family History Known Family History: Positive: Cardiac Disease, Respiratory Disease, Other - Aortic aneurysm Negative: Blood Disorder - Social History Alcohol Use: None Alcohol Amount: 1 GLASS OF WINE DAILY Substance Use Type: None Smoking Status (MU): Former Smoker Type: Cigarettes Amount Used/How Often: 1 1/2 PPD X 30 YEARS Have You Smoked in the Last Year: No When Did the Patient Quit Smoking/Using Tobacco: 10 years ago. - Immunization History Most Recent Influenza Vaccination: fall 2017 Most Recent Tetanus Shot: up to date, pt states this is what her PCP has told her Most Recent Pneumonia Vaccination: 08/2013 Review of Systems All Other Systems Reviewed And Are Negative: Yes Constitutional: Positive: Negative Skin: Positive: Negative Eyes: Positive: Negative ENT: Positive: Negative Respiratory: Positive: Shortness Of Breath - chronic, on home O2 Cardiovascular: Positive: Negative Gastrointestinal: Positive: Negative Genitourinary: Positive: Negative Motor: Positive: Negative Musculoskeletal: Positive: Other: - see image Neurological: Positive: Negative Psychological: Positive: Negative Physical Exam Triage Information Reviewed: Yes Appearance: Well-Appearing, No Pain Distress, Well-Nourished Vital Signs: Initial Vital Signs Temp 98.8 F 09/04/18 19:56 Pulse 90 09/04/18 19:56 Resp 18 09/04/18 19:56 BP 100/62 09/04/18 19:56 Pulse Ox 97 09/04/18 19:56 Eyes: Positive: Conjunctiva Clear ENT: Positive: Hearing grossly normal. Negative: Nasal congestion, Nasal drainage, Trismus, Muffled voice, Dental tenderness Neck: Positive: Supple Respiratory: Positive: No respiratory distress, No accessory muscle use, Rhonchi Cardiovascular: Positive: RRR, No Murmur Musculoskeletal: Positive: Edema @ - dorsum of both feet/tibial Neurological: Positive: Muscle Tone Normal Psychological Exam: Normal Skin Exam: Other - see image Diagnostics - Radiology No standard instances Radiology Interpretation Completed By: ED Physician Summary of Radiographic Findings: no osteo Lower Extremity Course/Dx - Differential Dx/Diagnosis Provider Diagnosis: Cellulitis of right foot Discharge - Sign-Out/Discharge Documenting (check all that apply): Patient Departure All imaging exams completed and their final reports reviewed: No - Discharge Plan Condition: Stable Disposition: HOME Prescriptions: Cephalexin CAP* [Keflex CAP*] 500 mg PO QID #28 cap Patient Education Materials: Cellulitis (ED) Referrals: Echo Rivero NP [Primary Care Provider] - 2 Days - Billing Disposition and Condition Condition: STABLE Disposition: Home
[2018-09-04] MEDS ORDERED: Cephalexin CAP* 500 MG PO ONE (20:39)
== END 2018-09-04 20:50 | disposition home or self-care (01) ==
LOC: UCEAST 19:51
DX: L03.115 Cellulitis of right lower limb (principal); I10 Essential (primary) hypertension; Z87.891 Personal history of nicotine dependence; Z88.5 Allergy status to narcotic agent; Z88.0 Allergy status to penicillin; Z85.038 Personal history of other malignant neoplasm of large intestine
CPT/HCPCS: 99212; A9270-GY; G0463

== ENCOUNTER 2018-09-17 15:08 | Inpatient (IN) | payer MEDICARE, BC ==
[2018-09-17] MEDS ORDERED: Furosemide IV* 10 MG/ML VIAL (40 MG) IV ONE (16:15)
[2018-09-17] MEDS ORDERED: methylPREDNISolone 125 MG* 2 ML VIAL IV ONE (16:15)
[2018-09-17] MEDS ORDERED: Albuterol/Ipratropium NEB.SOL* Albuterol 2.5 MG/Ipratropium 0.5 MG 3 ML INH ONE (16:15)
[2018-09-17] MEDS ORDERED: Albuterol (2.5 MG) 0.5 % CONC 2.5 MG/0.5 ML NEB.SOLN (ICU and ED only) INH ONE ×2 (16:18→17:00)
--- NOTE | 2018-09-17 16:28 | ED ---
Shortness of Breath - HPI Summary HPI Summary: This pt is a 78 y/o female, with hx of COPD and CHF, presenting to [facility] via EMS for increased SOB today. She describes her SOB is aggravated with movement and lying down flat. Pt reports additionally she has edema in lower extremities. Denies fever, chest pain. Pt had a breathing treatment this morning at 0700. Pt states she usually wears 4L of oxygen NC at home and at night she wears a mask. She is also taking 60 mg of Lasix every day and has had increased urine output. Her last admission was in August. Her optometry doctor is Dr. Shultz and the last time she saw him was maybe in July 2018. Allergic to Penicillin, Codeine, IV dye. - History of Current Complaint Chief Complaint: EDShortnessOfBreath Time Seen by Provider: 09/17/18 15:50 Hx Obtained From: Patient Onset/Duration: Lasting Hours, Still Present Timing: Constant Current Severity: Moderate Dyspnea At: Rest Aggrevating Factors: Movement, Recumbent Position Alleviating Factors: Oxygen Associated Signs & Symptoms: Edema - Allergy/Home Medications Allergies/Adverse Reactions: Allergies Allergy/AdvReac Type Severity Reaction Status Date / Time Adhesive Tape Allergy REDDENED Verified 09/04/18 20:01 SKIN codeine Allergy Hives Verified 09/04/18 20:01 iodine Allergy Rash Verified 09/04/18 20:01 Penicillins Allergy Hives Verified 09/04/18 20:01 pineapple AdvReac MOUTH SORE Verified 09/04/18 20:01 tiotropium AdvReac HOARSENESS, Verified 09/04/18 20:01 [From Spiriva with TICKLE IN HandiHaler] THROAT raisins Allergy GI Upset Uncoded 09/04/18 20:01 Home Medications: Home Medications DOXYcycline CAP(*) [DOXYcycline 100MG CAP(*)] 100 mg PO BID 09/17/18 [History Confirmed 09/17/18] Montelukast Sodium TAB* [Singulair TAB*] 10 mg PO DAILY 09/17/18 [History Confirmed 09/17/18] PMH/Surg Hx/FS Hx/Imm Hx Endocrine/Hematology History: Reports: Hx Anemia - iron deficient Denies: Hx Anticoagulant Therapy, Hx Diabetes, Hx Thyroid Disease Cardiovascular History: Reports: Hx Aneurysm - AAA diagnosed 05/28/17, Hx Congestive Heart Failure - LACIX, Hx Hypercholesterolemia, Hx Hypertension, Other Cardiovascular Problems/Disorders - HX OF LUNG SURG 2004 RIGHT SIDE. Denies: Hx Pacemaker/ICD Respiratory History: Reports: Hx Asthma, Hx Chronic Obstructive Pulmonary Disease (COPD), Hx Pneumonia, Hx Seasonal Allergies Denies: Hx Lung Cancer, Hx Sleep Apnea GI History: Reports: Other GI Disorders - Colon CA, current constipation Denies: Hx Gall Bladder Disease, Hx Gastroesophageal Reflux Disease, Hx Ulcer History: Reports: Other Problems/Disorders - Bladder smaller from colon Denies: Hx Dialysis, Hx Renal Disease Musculoskeletal History: Reports: Hx Arthritis, Hx Back Problems, Hx Orthopedic Injury, Hx Osteoporosis, Hx Tendonitis, Other Musculoskeletal History - kyphosis Denies: Hx Bursitis, Hx Scoliosis Sensory History: Reports: Hx Cataracts, Hx Contacts or Glasses Denies: Hx Glaucoma, Hx Hearing Aid, Hx Hearing Problem, Other Sensory Impairments Opthamlomology History: Reports: Hx Cataracts, Hx Contacts or Glasses Denies: Hx Glaucoma, Other Sensory Impairments Neurological History: Reports: Hx Migraine - childhood migraines resolved at 22 years old, Other Neuro Impairments/Disorders - LEFT HIP SX X 2 MO AGO Denies: Hx Headaches, Hx Nerve Disease Psychiatric History: Reports: Hx Panic Disorder - Cancer History Cancer Type, Location and Year: Colon CA Hx Chemotherapy: Yes Hx Radiation Therapy: No - Surgical History Surgery Procedure, Year, and Place: Empyema removal 1983,. Broken elbow left repair ORIF (plate) Apr 1999 and later hardware removal ;. Colon cancer dx 2007 , colon resection. Hernia repair 2009. Partial L Hip Replacement September 2012. BILATERAL CATARACTS. LEFT HIP REVISION 2013. HEART CATH 2018 Hx Anesthesia Reactions: No - Immunization History Date of Tetanus Vaccine: utd Date of Influenza Vaccine: fall 2017 Infectious Disease History: No Infectious Disease History: Denies: Hx Hepatitis, Hx Human Immunodeficiency Virus (HIV), History Other Infectious Disease, Traveled Outside the [place] in Last 30 Days - Family History Known Family History: Positive: Cardiac Disease, Respiratory Disease, Other - Aortic aneurysm Negative: Blood Disorder - Social History Alcohol Use: None Alcohol Amount: 1 GLASS OF WINE DAILY Hx Substance Use: No Substance Use Type: Reports: None Hx Tobacco Use: Yes Smoking Status (MU): Former Smoker Type: Cigarettes Amount Used/How Often: 1 1/2 PPD X 30 YEARS Have You Smoked in the Last Year: No Review of Systems Negative: Fever Negative: Chest Pain Positive: Shortness Of Breath Positive: Edema - in LE All Other Systems Reviewed And Are Negative: Yes Physical Exam - Summary Physical Exam Summary: GENERAL: Patient is a well-developed and nourished female who is lying comfortable in the stretcher. Patient is not in any acute respiratory distress. HEAD AND FACE: Normocephalic EYES: PERRLA, EOMI x 2. EARS: Hearing grossly intact. MOUTH: Oropharynx within normal limits. NECK: Supple, trachea is midline, no adenopathy, no JVD, no carotid bruit. CHEST: Symmetric, no tenderness at palpation LUNGS: Wheezing diffusely. CVS: Regular rate and rhythm, S1 and S2 present, no murmurs or gallops appreciated. ABDOMEN: Soft, non-tender. Bowel sounds are normal. No abnormal abdominal pulsations. EXTREMITIES: Full ROM in all major joints, no cyanosis or clubbing. 1+ pitting edema in bilateral lower extremities. NEURO: Alert and oriented x 3. No acute neurological deficits. Speech is normal and follows commands. SKIN: Dry and warm Triage Information Reviewed: Yes Vital Signs On Initial Exam: Initial Vitals Temp Pulse Resp BP Pulse Ox 98.3 F 81 20 125/90 100 09/17/18 15:09 09/17/18 15:09 09/17/18 15:09 09/17/18 15:09 09/17/18 15:09 Vital Signs Reviewed: Yes Diagnostics - Vital Signs Vital Signs Temp Pulse Resp BP Pulse Ox 09/17/18 15:14 80 125/90 100 09/17/18 15:09 98.3 F 81 20 125/90 100 - Laboratory Result Diagrams: 09/17/18 16:09 09/17/18 16:10 Lab Statement: Any lab studies that have been ordered have been reviewed, and results considered in the medical decision making process. - Radiology Chest XR Radiology Interpretation Completed By: Radiologist Summary of Radiographic Findings: IMPRESSION: The constellation of findings favors bronchopneumonia. Correlate with clinical assessment as well as interstitial edema could have a similar appearance. Dr. Reyes has reviewed this report. - EKG 16:24 Cardiac Rate: NL - at 78 bpm EKG Rhythm: Sinus Rhythm Summary of EKG Findings: Left axis deviation. Course/Dx - Course Assessment/Plan: Pt is a 78 y/o female, with hx of COPD and CHF, presenting to [facility] via EMS for increased SOB today. Lab results remarkable for troponin of 0.04, BNP of 438. Chest XR shows the constellation of findings favors bronchopneumonia. Correlate with clinical assessment as well as interstitial edema could have a similar appearance. Case discussed with Dr. Montaño, hospitalist, who accepted the pt for admission. I discussed results with patient. The patient agrees with this plan. - Diagnoses Provider Diagnoses: Pneumonia, CHF (congestive heart failure) - Physician Notifications Discussed Care of Patient With: Wanda Montaño - hospitalist Time Discussed With Above Provider: 18:27 Instructed by Provider To: Admit As Inpatient Discharge - Sign-Out/Discharge Documenting (check all that apply): Patient Departure - Admit to [facility] Patient Received Moderate/Deep Sedation with Procedure: No - Discharge Plan Condition: Stable Disposition: ADMITTED TO [facility] Referrals: Echo Rivero NP [Primary Care Provider] - - Billing Disposition and Condition Condition: STABLE Disposition: Admitted to [facility] - Attestation Statements Document Initiated by Shirae: Yes Documenting Scribe: Deborah Shea Provider For Whom Sheba is Documenting (Include Credential): Debi Reyes MD Scribe Attestation: I, Deborah Shea, scribed for Debi Reyes MD on 09/17/18 at 1926. Scribe Documentation Reviewed: Yes Provider Attestation: The documentation as recorded by the scribeDeborah accurately reflects the service I personally performed and the decisions made by me, Debi Reyes MD Status of Scribe Document: Viewed
[2018-09-17 16:46] LABS: ABS Basophils 0.1 10^3/ul (0-0.2); ABS Eosinophils 0.4 10^3/ul (0-0.6); ABS Lymphocytes 0.7 10^3/ul (1.0-4.8); ABS Neutrophils 5.4 10^3/ul (1.5-7.7); Hematocrit 34 % (35-47); Hemoglobin 11.2 g/dL (12.0-16.0); Lymphocyte % 9.6 %; Mean Corpuscular HGB Conc 33 g/dL (31-36); Mean Corpuscular Hemoglobin 30 pg (27-31); Mean Corpuscular Volume 92 fL (80-97); Mean Platelet Volume 7.8 fL (7.4-10.4); Platelet Count 267 10^3/uL (150-450); Red Blood Count 3.72 10^6 /uL (3.70-4.87); Red Cell Distribution Width 14 % (10.5-15); White Blood Count 7.6 10^3/uL (3.5-10.8)
[2018-09-17 16:51] LABS: Activated Partial Thrombo Time 42.2 seconds (26.0-38.0); INR 1.05 (0.82-1.09)
[2018-09-17 17:03] LABS: ALT 14 U/L (7-52); AST 25 U/L (13-39); Albumin 3.5 g/dL (3.2-5.2); Albumin/Globulin Ratio 1.3 (1-3); Alkaline Phosphatase 71 U/L (34-104); Anion Gap 6 mmol/L (2-11); BUN/Creatinine Ratio 22.7 (8-20); Blood Urea Nitrogen 25 mg/dL (6-24); CO2 Carbon Dioxide 33 mmol/L (22-32); Calcium 9.4 mg/dL (8.6-10.3); Chloride 99 mmol/L (101-111); EGFR African American 58.1 (>60); Globulin 2.6 g/dL (2-4); Glucose 115 mg/dL (70-100); Potassium 4.2 mmol/L (3.5-5.0); Sodium 138 mmol/L (135-145); Total Protein 6.1 g/dL (6.4-8.9)
[2018-09-17 17:05] LABS: Troponin I 0.04 ng/mL (<0.04)
[2018-09-17] MEDS ORDERED: cefTRIAXone(*) 1 GM in NS 0.9% 50 ML* 50 ML IVPB ONE (18:00)
[2018-09-17] MEDS ORDERED: Azithromycin 500 mg/250 ml NS 500 MG/250 ML BAG IVPB ONE (18:00)
[2018-09-17 18:02] LABS: Urine Appearance Cloudy; Urine Bilirubin Negative (Negative); Urine Blood Negative (Negative); Urine Color Yellow; Urine Glucose Negative (Negative); Urine Ketones Negative (Negative); Urine Nitrite Negative (Negative); Urine Protein Negative (Negative); Urine Specific Gravity 1.006 (1.010-1.030); Urine Urobilinogen Negative (Negative)
[2018-09-17 21:03] LABS: Troponin I 0.04 ng/mL (<0.04)
[2018-09-17] MEDS ORDERED: Albuterol/Ipratropium NEB.SOL* Albuterol 2.5 MG/Ipratropium 0.5 MG 3 ML INH PRN (21:17)
[2018-09-17] MEDS ORDERED: Al Hydrox/Mg Hydrox/Simet LIQ* 30 ML UDC PO PRN (21:17)
[2018-09-17] MEDS ORDERED: Senna TAB PO PRN (21:20)
[2018-09-17] MEDS ORDERED: Albuterol HFA INHALER* 8 gm MDI INH PRN (21:20)
[2018-09-18] MEDS: Heparin VIAL(*) 5000 UNITS/ML VIAL (FIVE THOUSAND) SUBCUT SCH ×4 (00:19→21:47)
[2018-09-18] MEDS: Atorvastatin* 10 MG TAB PO SCH ×2 (00:20→21:46)
[2018-09-18] MEDS: Pregabalin CAP(*) 50 MG PO SCH ×2 (00:20→21:46)
[2018-09-18] MEDS: LORazepam TAB(*) 0.5 MG PO PRN ×2 (00:21→21:56)
[2018-09-18] MEDS: Albuterol/Ipratropium NEB.SOL* Albuterol 2.5 MG/Ipratropium 0.5 MG 3 ML INH SCH ×4 (00:37→20:04)
[2018-09-18 00:57] LABS: Troponin I 0.05 ng/mL (<0.04)
--- NOTE | 2018-09-18 03:52 | HP ---
CC: Echo Rivero NP * HISTORY AND PHYSICAL: DATE OF ADMISSION: 09/17/18 PROVIDER: Nini Charles NP PRIMARY CARE PROVIDER: Echo Rivero NP ATTENDING PHYSICIAN WHILE IN THE HOSPITAL: Dr. Tiffany Vargas * (dictated by Nini Charles NP). CHIEF COMPLAINT: Leg swelling and shortness of breath. HISTORY OF PRESENT ILLNESS: Ms. Coburn is a 78-year-old female with past medical history significant for colon cancer, congestive heart failure, COPD, hypertension, hyperlipidemia, and aortic abdominal aneurysm, who presented to the emergency room with complaints of progressive worsening shortness of breath. The patient reports that she started feeling short of breath on Sunday and Sunday, which started with leg swelling and then shortness of breath. She says that the leg swelling and shortness of breath have become progressively worse since Sunday and today it became more severe, so she presented to the emergency room for further evaluation. The patient is unsure if she has had any weight gain as she has not been weighing herself. She does report productive cough with yellow secretions. She does report some shortness of breath. She also reports that she has a right foot ulcer on the plantar aspect at the base of her great toe that she has had for 3 months and she has been following Podiatry with. She reports that it has been painful since May. They were concerned about an infection and so she started doxycycline approximately 1 week ago. Due to the increased leg swelling and shortness of breath, the patient reported for further evaluation. While in the emergency room, the patient had routine lab work drawn. She was found to have a mildly elevated troponin of 0.04 and BNP of 438. She was given 60 of Lasix IV in the emergency room for a chest x-ray that showed constellation of findings favors bronchial pneumonia, correlate clinically, as well as interstitial edema could have similar appearance. Due to the patient's shortness of breath and findings consistent with congestive heart failure, we were asked to see and evaluate the patient for admission. PAST MEDICAL HISTORY: Significant for: 1. Colon cancer. 2. Congestive heart failure. 3. She has chronic hypoxic respiratory failure and wears 4 L O2 at home. 4. Anxiety. 5. Iron deficiency anemia. 6. Coronary artery disease. 7. Aortic stenosis, moderate to severe. 8. Hypertension. 9. Hyperlipidemia. 10. Peripheral neuropathy. 11. Osteoporosis. PAST SURGICAL HISTORY: 1. Left hip surgery. 2. Partial colectomy. HOME MEDICATIONS: Include: 1. Singulair 10 mg p.o. daily. 2. Doxycycline 100 mg p.o. b.i.d. 3. Vitamin E 100 mg p.o. daily. 4. Vitamin B complex 1 tab p.o. daily. 5. Simvastatin 20 mg p.o. at bedtime. 6. Senna 1 tab p.o. daily p.r.n. 7. Lyrica 50 mg at bedtime, 25 mg daily. 8. MiraLAX 17 g p.o. p.r.n. 9. Multivitamin 1 tab p.o. daily. 10. Lorazepam 0.5 mg q.6 hours p.r.n. 11. Irbesartan 150 mg p.o. daily. 12. Ibuprofen 400 mg p.o. q.6 hours p.r.n. 13. Furosemide 60 mg p.o. daily. 14. Ferrous sulfate 325 mg p.o. daily. 15. Docusate 100 mg p.o. daily. 16. Prolia 60 mg. 17. Vitamin D 2000 units p.o. daily. 18. Calcium 1 tab p.o. daily. 19. Symbicort 2 puffs inhaled b.i.d. 20. Aspirin 81 mg p.o. daily. 21. Ascorbic acid 1000 mg p.o. daily. 22. Albuterol, DuoNeb 1 neb 4 times a day p.r.n. 23. Albuterol HFA inhaler 2 puffs 4 times a day p.r.n. ALLERGIES: 1. ADHESIVE TAPE. 2. CODEINE. 3. IODINE. 4. PENICILLIN, 5. PINEAPPLE. 6. SPIRIVA HANDIHALER. 7. RAISINS. FAMILY HISTORY: Sister with history of congestive heart failure. No reported history of diabetes. Father with unknown type of cancer. SOCIAL HISTORY: The patient reports she quit smoking in 2004. Prior to that, she smoked 2 packs a day for approximately 50 years. She denies any alcohol or illicit drug use. She lives alone. Surrogate decision maker in the event she is unable to make her own decisions is her daughter. She is currently independent. She walks with a walker. Her daughter does live next door. She is a full code. REVIEW OF SYSTEMS: The patient denies any fever, unintended weight loss, chest pain. She does report bilateral lower extremity edema. She does report productive yellow cough and progressive worsening shortness of breath. Shortness of breath is worse with exertion. She denies any nausea, vomiting, diarrhea, abdominal pain, hematuria, dysuria. She denies any focal weakness or sensory loss. Denies any dysphagia, arthralgias, myalgias. She does report an open ulcer to the plantar aspect at the base of the right great toe. She denies any psychosis or anxiety. PHYSICAL EXAMINATION GENERAL: At this time, Ms. Coburn is a 78-year-old female. She is resting comfortably on the stretcher in the emergency room. She is in no acute distress. VITAL SIGNS: 155/88, heart rate 96, respiratory rate 20, O2 saturations 92%, temperature was 98.3. HEENT: Head is atraumatic, normocephalic. Eyes: EOMs are intact. Sclerae anicteric and not pale. Oral mucosa appeared to be moist. NECK: Supple. LUNGS: Diminished throughout bilaterally with inspiratory and expiratory wheezes and she has scattered rhonchi. CARDIAC: S1, S2. Regular rate and rhythm. No murmurs, rubs or gallops. ABDOMEN: Obese, soft and nontender. Bowel sounds are present x4. EXTREMITIES: She is able to move all 4 extremities. There is no clubbing or cyanosis. She does have edema of the bilateral lower extremities, +1 to +2. NEUROLOGIC: She is awake, alert, oriented x3. Speech is clear. Thought process is intact. There are no gross focal deficits. SKIN: Intact. LABORATORY DATA AND DIAGNOSTIC STUDIES: WBCs 7.6, RBCs 3.72, hemoglobin 11.2, hematocrit was 34, platelet count was 267. INR was 1.05. APTT was 42.2. Sodium 138, potassium 4.2, chloride 99, carbon dioxide is 33, anion gap is 6, BUN was 25. Creatinine 1.10, which is her baseline since 2017. Lactic acid was 1.5. Magnesium is 2.0. AST was 25, ALT was 14, alkaline phosphatase was 71. Troponin was 0.04 and 0.04. She does have a chronically elevated troponin since 07/13/18, BNP was 438, again is consistent since June between 300 to 400. Urine was within normal limits with the exception of specific gravity of 1.006. She had a chest x-ray, radiologist's impression: Constellation of findings favors bronchial pneumonia, correlate clinically assessment, as well as interstitial edema could have a similar appearance. The patient had an electrocardiogram, which showed sinus rhythm with a rate of 78. She does have T -wave inversion in V1. ASSESSMENT AND PLAN: Ms. Coburn is an 81-year-old female with a past medical history significant for congestive heart failure, chronic obstructive pulmonary disease, hypertension, hyperlipidemia, history of colon cancer, who presented to the emergency room with complaints of progressive worsening shortness of breath and lower leg edema. She will be admitted for: 1. Acute on chronic congestive heart failure. The patient was given 60 mg of Lasix in the emergency room. We will continue to evaluate her fluid status. We will reevaluate her fluid status in the morning and we ordered Lasix IV as needed. I suspect her shortness of breath is also complicated by underlying chronic obstructive pulmonary disease. We will continue her on nebulizers. I will place her on prednisone 40 mg p.o. daily. The patient was given azithromycin and ceftriaxone in the emergency room and Solu-Medrol 125 mg IV. The patient was recently treated with doxycycline for 7 days, which will cover her for any underlying pneumonia. I suspect this is more related to congestive failure with chronic obstructive pulmonary disease exacerbation at this time as the patient does not have a white count, she is afebrile. She does report a productive cough of yellow secretions but I suspect her increased shortness of breath is related to her acute on chronic diastolic heart failure with an exacerbation of chronic obstructive pulmonary disease. 2. Chronic obstructive pulmonary disease. She will continue on her home nebulizers and inhalers as previously prescribed. I will add prednisone 40 mg p.o. daily. I will hold off on antibiotics at this time as the patient just finished a course of doxycycline for 7 days for possible foot infection. 3. Hypertension. We will continue her on losartan as previously prescribed. 4. Hyperlipidemia. She will continue on atorvastatin 10 mg p.o. daily. 5. Chronic kidney disease. We will continue to monitor her renal function. She is at baseline at this time. 6. Elevated troponin. The patient has had chronically elevated troponin since June of 2018. We will continue to trend her troponin. I will repeat an EKG in the a.m. I suspect this is related to demand ischemia from her underlying congestive heart failure complicated by chronic obstructive pulmonary disease. The patient denies any chest pain. 7. Elevated brain natriuretic peptide. The patient appears to have mild exacerbation of her acute on chronic congestive heart failure. She was given 60 mg of Lasix IV in the emergency room. We will reevaluate in the morning and give repeat doses of Lasix IV as needed. 8. Plantar aspect base of great toe ulcer. We did do a culture that is currently pending. She had a wound culture on 09/12/18, which showed methicillin-resistant Staphylococcus aureus, which was susceptible to doxycycline, which the patient received. 9. FEN: The patient could have a heart-healthy diet. 10. Code status. She is a full code. 11. DVT prophylaxis. I will place her on heparin subcu. TIME SPENT: Time spent on this admission was approximately 60 minutes, greater than half that time was spent at the bedside reviewing events leading thus far to her hospitalization, performing physical exam, and reviewing my plan of care. I have discussed this with my attending Dr. Tiffany Vargas; she is in agreement with my plan. NINI CHARLES, UNIQUE [id number]/[facility] #: [id number] EULALIO
[2018-09-18 07:52] LABS: ABS Lymphocytes 0.3 10^3/ul (1.0-4.8); ABS Monocytes 0.3 10^3/ul (0-0.8); ABS Neutrophils 3.1 10^3/ul (1.5-7.7); Hematocrit 33 % (35-47); Hemoglobin 10.7 g/dL (12.0-16.0); Mean Corpuscular HGB Conc 33 g/dL (31-36); Mean Corpuscular Hemoglobin 30 pg (27-31); Mean Corpuscular Volume 91 fL (80-97); Mean Platelet Volume 8.2 fL (7.4-10.4); Platelet Count 255 10^3/uL (150-450); Red Blood Count 3.58 10^6 /uL (3.70-4.87); Red Cell Distribution Width 14 % (10.5-15); White Blood Count 3.6 10^3/uL (3.5-10.8)
[2018-09-18] MEDS: Mometasone/Formoter 200/5 MDI INH SCH ×2 (08:07→20:03)
[2018-09-18 08:09] LABS: BUN/Creatinine Ratio 22.2 (8-20); Calcium 8.8 mg/dL (8.6-10.3); EGFR African American 59.4 (>60); EGFR Non-African American 49.1 (>60)
[2018-09-18] MEDS: Pregabalin CAP(*) 25 MG PO SCH (08:41)
[2018-09-18] MEDS: Ascorbic Acid TAB* 500 MG PO SCH (08:41)
[2018-09-18] MEDS: Ferrous Sulfate TAB* 325 MG PO SCH (08:41)
[2018-09-18] MEDS: Multivitamins/Minerals TAB PO SCH (08:41)
[2018-09-18] MEDS: Montelukast Sodium TAB* 10 MG PO SCH (08:41)
[2018-09-18] MEDS: Cholecalciferol TAB* 1000 UNITS PO SCH (08:41)
[2018-09-18] MEDS: Aspirin EC TAB* 81 MG TAB.EC PO SCH (08:42)
[2018-09-18] MEDS: Losartan TAB* 25 MG PO SCH (08:42)
[2018-09-18] MEDS ORDERED: predniSONE TAB* 20 MG PO SCH (09:00)
[2018-09-18] MEDS: Acetaminophen TAB* 325 MG PO PRN (11:11)
--- NOTE | 2018-09-18 12:34 | PN ---
Subjective Date of Service: 09/18/18 Interval History: Patient feels her leg swelling is returned to her baseline and her homecare aide at bedside agrees. Patient feels her breathing is not returned to her baseline, but is improved from yesterday. She denies abd pain, nausea, vomiting , fever/chills, chest pain. The wound to her foot does not hurt laying in bed and she has not yet put weight on the foot today. Objective Active Medications: Acetaminophen (Tylenol Tab*) 650 mg PO Q4H PRN PRN Reason: FEVER/PAIN Last Admin: 09/18/18 11:11 Dose: 650 mg Al Hydrox/Mg Hydrox/Simethicone (Maalox Plus*) 30 ml PO Q6H PRN PRN Reason: INDIGESTION Albuterol (Ventolin Hfa Inhaler*) 2 puff INH QID PRN PRN Reason: COUGH Albuterol/Ipratropium (Duoneb (Albuterol 2.5 Mg/Ipratropium 0.5 Mg)) 1 neb INH [id number] AWAKE [facility] Last Admin: 09/18/18 08:07 Dose: 1 neb Ascorbic Acid (Vitamin C Tab*) 1,000 mg PO DAILY [facility] Last Admin: 09/18/18 08:41 Dose: 1,000 mg Aspirin (Aspirin Ec Tab*) 81 mg PO DAILY [facility] Last Admin: 09/18/18 08:42 Dose: 81 mg Atorvastatin Calcium (Lipitor*) 10 mg PO BEDTIME [facility] Last Admin: 09/18/18 00:20 Dose: 10 mg Cholecalciferol (Vitamin D Tab*) 2,000 units PO DAILY [facility] Last Admin: 09/18/18 08:41 Dose: 2,000 units Device (Tiotropium Inhaler Device*) 1 each INH ONCE ONE Stop: 09/18/18 13:01 Ferrous Sulfate (Ferrous Sulfate Tab*) 325 mg PO DAILY [facility] Last Admin: 09/18/18 08:41 Dose: 325 mg Heparin Sodium (Porcine) (Heparin Vial(*)) 5,000 units SUBCUT Q8HR [facility] Last Admin: 09/18/18 05:54 Dose: 5,000 units Lorazepam (Ativan Tab(*)) 0.5 mg PO Q6H PRN PRN Reason: ANXIETY Last Admin: 09/18/18 00:21 Dose: 0.5 mg Losartan Potassium (Cozaar Tab*) 50 mg PO DAILY [facility] Last Admin: 09/18/18 08:42 Dose: 50 mg Mometasone Furoate/Formoterol Fumar (Dulera 200/5 Mdi*) 2 puff INH BID [facility]; Protocol Last Admin: 09/18/18 08:07 Dose: 2 puff Montelukast Sodium (Singulair Tab*) 10 mg PO DAILY [facility] Last Admin: 09/18/18 08:41 Dose: 10 mg Multivitamins/Minerals (Theragran/Minerals Tab*) 1 tab PO DAILY [facility] Last Admin: 09/18/18 08:41 Dose: 1 tab Prednisone (Deltasone Tab*) 40 mg PO DAILY [facility] Last Admin: 09/18/18 08:41 Dose: 40 mg Pregabalin (Lyrica Cap(*)) 25 mg PO DAILY [facility] Last Admin: 09/18/18 08:41 Dose: 25 mg Pregabalin (Lyrica Cap(*)) 50 mg PO BEDTIME [facility] Last Admin: 09/18/18 00:20 Dose: 50 mg Senna (Senokot Tab*) 1 tab PO DAILY PRN PRN Reason: CONSTIPATION Last Admin: 09/18/18 00:21 Dose: 1 tab Tiotropium [place] (Spiriva Cap.Inh*) 1 cap INH DAILY [facility] Vital Signs - 8 hr 09/18/18 09/18/18 09/18/18 04:34 08:00 08:11 Temperature 97.7 F 97.5 F Pulse Rate 84 79 Respiratory 18 16 18 Rate Blood Pressure 125/64 119/62 (mmHg) O2 Sat by Pulse 93 97 Oximetry 09/18/18 09/18/18 08:12 08:41 Temperature Pulse Rate 78 Respiratory 18 20 Rate Blood Pressure (mmHg) O2 Sat by Pulse 97 Oximetry Oxygen Devices in Use Now: Nasal Cannula Appearance: Obese white female, laying upright in hospital bed, appearing in minimal distress - respiring with pursed lips Eyes: No Scleral Icterus, PERRLA Ears/Nose/Mouth/Throat: Mucous Membranes Moist Neck: NL Appearance and Movements; NL JVP Respiratory: Symmetrical Chest Expansion and Respiratory Effort, - - rhonchi in mid and lower lung dent on left side; minimal expiratory wheezing bilaterally at bases Cardiovascular: NL Sounds; No Murmurs; No JVD, RRR Abdominal: - - abd soft, nontender, nondistended Extremities: No Clubbing, Cyanosis, - - trace edema to bilateral lower extremities pretibially Skin: - - chronic appearing wound to plantar aspect of right foot near 1st toe; no purulence,surrounding erythema/edema; approx 1cm in diameter Neurological: Alert and Oriented x 3, NL Muscle Strength and Tone Result Diagrams: 09/18/18 06:41 09/18/18 06:41 Assess/Plan/Problems-Billing Assessment: 78 yo female with PMHx systolic CHF, chronic hypoxic resp failure on 4L at home , COPD, CAD, HTN, iron deficiency anemia presents with shortness of breath and bilateral LE edema. - Patient Problems (1) Acute and chronic respiratory failure with hypoxia Code(s): J96.21 - ACUTE AND CHRONIC RESPIRATORY FAILURE WITH HYPOXIA SNOMED Code(s): 31220879 Comment: -likely a combination of CHF exacerbation and possibly COPD exacerbation -patient uses 4L oxygen at home -at time of evaluation, saturating well on 4L oxygen at rest -lung exam with reduced lung sounds and visibily breathing with pursed lips -increasing po prednisone to 60 mg, continue scheduled nebulizers -added spiriva (note reaction listed in chart of tickle in throat to tiotropium , but patient uses duonebs daily at home with no reaction) for better maintenance -continue home inhalers -restarting home lasix (2) Elevated troponin Code(s): R74.8 - ABNORMAL LEVELS OF OTHER SERUM ENZYMES SNOMED Code(s): 849352481 Comment: - Asymptomatic - Trops peaked at 0.05; no EKG changes; decreased to 0.04 this morning - Suspect demand ischemia d/t acute COPD exacerbation (3) CAD (coronary artery disease) Code(s): I25.10 - ATHSCL HEART DISEASE OF [place] CORONARY ARTERY W/O ANG PCTRS SNOMED Code(s): 89544792 Comment: - continue ASA, liptor, losartan 50 mg (4) Congestive heart failure (CHF) Code(s): I50.9 - HEART FAILURE, UNSPECIFIED SNOMED Code(s): 34444145 Comment: -recent echo with EF 40-45% -presented with bilateral LE +1-2 edema, which is only trace today -possibly contributing to respiratory status but lung sounds without crackles; CXR with interstitial edema -pt received IV lasix in ED x 1 dose -did not receive home po lasix this morning, will restart for tomorrow (5) Chronic foot ulcer Code(s): L97.509 - NON-PRESSURE CHRONIC ULCER OTH PRT UNSP FOOT W UNSP SEVERITY SNOMED Code(s): 558168301 Comment: -appears chronic -following with airport operations specialist outpatient, awaiting outpatient MRI -no purulence or surrounding erythema (6) HTN (hypertension) Code(s): I10 - ESSENTIAL (PRIMARY) HYPERTENSION SNOMED Code(s): 33620509 Comment: - Normotensive - Continue losartan, restarting home lasix (7) DVT prophylaxis Code(s): VUL5020 - SNOMED Code(s): 332092147 Comment: - [facility] (8) Full code status Code(s): Z78.9 - OTHER SPECIFIED HEALTH STATUS SNOMED Code(s): 086723125 Comment:
[2018-09-18] MEDS ORDERED: Spiriva Inhaler DEVICE* 1 EACH DEVICE INH ONE (13:00)
[2018-09-18] MEDS: Tiotropium CAP.INH* CAP.INH/18 MCG (USE ORDER SET !) INH SCH (13:23)
[2018-09-18 14:46] LABS: Troponin I 0.04 ng/mL (<0.04)
[2018-09-19] MEDS: Albuterol/Ipratropium NEB.SOL* Albuterol 2.5 MG/Ipratropium 0.5 MG 3 ML INH SCH ×5 (01:38→20:11)
[2018-09-19] MEDS: Heparin VIAL(*) 5000 UNITS/ML VIAL (FIVE THOUSAND) SUBCUT SCH ×3 (05:02→21:51)
[2018-09-19 07:07] LABS: Hematocrit 34 % (35-47); Hemoglobin 11.2 g/dL (12.0-16.0); Mean Corpuscular HGB Conc 33 g/dL (31-36); Mean Corpuscular Hemoglobin 30 pg (27-31); Mean Corpuscular Volume 92 fL (80-97); Mean Platelet Volume 7.8 fL (7.4-10.4); Platelet Count 276 10^3/uL (150-450); Red Blood Count 3.69 10^6 /uL (3.70-4.87); Red Cell Distribution Width 14 % (10.5-15); White Blood Count 7.3 10^3/uL (3.5-10.8)
[2018-09-19] MEDS ORDERED: Albuterol/Ipratropium NEB.SOL* Albuterol 2.5 MG/Ipratropium 0.5 MG 3 ML ONE (07:16)
[2018-09-19] MEDS: Tiotropium CAP.INH* CAP.INH/18 MCG (USE ORDER SET !) INH SCH ×2 (07:35→07:46)
[2018-09-19] MEDS: Mometasone/Formoter 200/5 MDI INH SCH ×2 (07:35→20:11)
[2018-09-19 07:45] LABS: BUN/Creatinine Ratio 26.9 (8-20); Calcium 8.8 mg/dL (8.6-10.3); EGFR African American 70.6 (>60); EGFR Non-African American 58.3 (>60); Potassium 4.3 mmol/L (3.5-5.0)
[2018-09-19] MEDS: predniSONE TAB* 20 MG PO SCH (09:26)
[2018-09-19] MEDS: Pregabalin CAP(*) 25 MG PO SCH (09:26)
[2018-09-19] MEDS: Montelukast Sodium TAB* 10 MG PO SCH (09:27)
[2018-09-19] MEDS: Aspirin EC TAB* 81 MG TAB.EC PO SCH (09:27)
[2018-09-19] MEDS: Multivitamins/Minerals TAB PO SCH (09:27)
[2018-09-19] MEDS: Cholecalciferol TAB* 1000 UNITS PO SCH (09:27)
[2018-09-19] MEDS: Furosemide TAB* 20 MG PO SCH (09:27)
[2018-09-19] MEDS: Ferrous Sulfate TAB* 325 MG PO SCH (09:27)
[2018-09-19] MEDS: Ascorbic Acid TAB* 500 MG PO SCH (09:27)
[2018-09-19] MEDS: Losartan TAB* 25 MG PO SCH (13:04)
--- NOTE | 2018-09-19 16:44 | PN ---
Subjective Date of Service: 09/19/18 Interval History: Ms. Coburn reports that she feels well and is feeling closer to her baseline. She describes the events leading up to her presentation as related to increased lower extremity swelling and then sudden weakness. She feels that her lower extremity sweliing has improved. She feels that her breathing is good today. She denies chest pain. Objective Active Medications: Acetaminophen (Tylenol Tab*) 650 mg PO Q4H PRN Al Hydrox/Mg Hydrox/Simethicone (Maalox Plus*) 30 ml PO Q6H PRN Albuterol (Ventolin Hfa Inhaler*) 2 puff INH QID PRN Albuterol/Ipratropium (Duoneb (Albuterol 2.5 Mg/Ipratropium 0.5 Mg)) 1 neb INH [id number] AWAKE [facility] Ascorbic Acid (Vitamin C Tab*) 1,000 mg PO DAILY [facility] Aspirin (Aspirin Ec Tab*) 81 mg PO DAILY [facility] Atorvastatin Calcium (Lipitor*) 10 mg PO BEDTIME [facility] Cholecalciferol (Vitamin D Tab*) 2,000 units PO DAILY [facility] Ferrous Sulfate (Ferrous Sulfate Tab*) 325 mg PO DAILY [facility] Furosemide (Lasix Tab*) 60 mg PO DAILY [facility] Heparin Sodium (Porcine) (Heparin Vial(*)) 5,000 units SUBCUT Q8HR [facility] Lorazepam (Ativan Tab(*)) 0.5 mg PO Q6H PRN Losartan Potassium (Cozaar Tab*) 50 mg PO DAILY [facility] Mometasone Furoate/Formoterol Fumar (Dulera 200/5 Mdi*) 2 puff INH BID [facility]; Protocol Montelukast Sodium (Singulair Tab*) 10 mg PO DAILY [facility] Multivitamins/Minerals (Theragran/Minerals Tab*) 1 tab PO DAILY [facility] Prednisone (Deltasone Tab*) 60 mg PO DAILY [facility] Pregabalin (Lyrica Cap(*)) 25 mg PO DAILY [facility] Pregabalin (Lyrica Cap(*)) 50 mg PO BEDTIME [facility] Senna (Senokot Tab*) 1 tab PO DAILY PRN Tiotropium [place] (Spiriva Cap.Inh*) 1 cap INH DAILY [facility] Vital Signs: Temp Pulse Resp BP Pulse Ox 97.8 F 83 18 131/78 96 09/19/18 12:36 09/19/18 13:47 09/19/18 13:47 09/19/18 12:36 09/19/18 13:47 Oxygen Devices in Use Now: Nasal Cannula Appearance: Female sitting up in chair eating dinner in NAD Eyes: No Scleral Icterus Ears/Nose/Mouth/Throat: Mucous Membranes Moist Neck: Trachea Midline Respiratory: Symmetrical Chest Expansion and Respiratory Effort, - - Minimal crackles in bases Cardiovascular: NL Sounds; No Murmurs; No JVD, - - trace edema Abdominal: NL Sounds; No Tenderness; No Distention Neurological: Alert and Oriented x 3, NL Muscle Strength and Tone Nutrition: Taking PO's Result Diagrams: 09/19/18 06:33 09/19/18 06:33 Assess/Plan/Problems-Billing Assessment: Ms. Coburn is a 78 yo female with PMHx systolic CHF, chronic hypoxic resp failure on 4L at home, COPD, CAD, HTN, iron deficiency anemia presents with shortness of breath and bilateral LE edema. - Patient Problems (1) Acute and chronic respiratory failure with hypoxia Comment: - Resolving -likely a combination of CHF exacerbation and possibly COPD exacerbation -patient uses 4L oxygen at home -at time of evaluation, saturating well on 4L oxygen at rest -lung exam with reduced lung sounds and visibily breathing with pursed lips -increasing po prednisone to 60 mg, continue scheduled nebulizers -added spiriva (note reaction listed in chart of tickle in throat to tiotropium , but patient uses duonebs daily at home with no reaction) for better maintenance -continue home inhalers -restarting home lasix (2) Congestive heart failure (CHF) Comment: -recent echo with EF 40-45% -presented with bilateral LE +1-2 edema, which is only trace today -possibly contributing to respiratory status but lung sounds without crackles; CXR with interstitial edema -pt received IV lasix in ED x 1 dose -did not receive home po lasix this morning, will restart for tomorrow (3) COPD exacerbation Comment: - Continue steroid taper, now on 40mg and bronchodilators. (4) Aortic stenosis Comment: - Recent echo 06/21/18 EF 45% and shows moderate to severe SHADIA 0.88 cm 2 (5) CAD (coronary artery disease) Comment: - continue ASA, liptor, losartan 50 mg (6) Chronic foot ulcer Comment: -appears chronic -following with transportation engineer outpatient, awaiting outpatient MRI -no purulence or surrounding erythema (7) Abdominal aortic aneurysm (AAA) 30 to 34 mm in diameter Comment: - US 07/22/18 Reveals 2.8 cm - Continue outpatient surveillance (8) Anemia Comment: - Chronic, stable - Workup done on last hospitalization appears to be anemia of chronic disease (9) Anxiety Comment: - Exacerbated by dyspnea - Continue lorazepam - Also on Lyrica for pain control (10) Elevated troponin Comment: - Asymptomatic - Trops peaked at 0.05; no EKG changes; decreased to 0.04 this morning - Suspect demand ischemia d/t acute COPD exacerbation (11) Hyperlipidemia Comment: - Continue atorvastatin (12) HTN (hypertension) Comment: - Normotensive - Continue losartan, restarting home lasix (13) Peripheral neuropathy Comment: - Continue Lyrica (14) DVT prophylaxis Comment: - SQH (15) Full code status Comment: Status and Disposition: Inpatient. Anticipate discharge to home when medically stable.
[2018-09-19] MEDS: Pregabalin CAP(*) 50 MG PO SCH (21:49)
[2018-09-19] MEDS: Acetaminophen TAB* 325 MG PO PRN (21:49)
[2018-09-19] MEDS: Atorvastatin* 10 MG TAB PO SCH (21:49)
[2018-09-19] MEDS: LORazepam TAB(*) 0.5 MG PO PRN (21:50)
[2018-09-20] MEDS: Albuterol/Ipratropium NEB.SOL* Albuterol 2.5 MG/Ipratropium 0.5 MG 3 ML INH SCH ×4 (01:05→12:19)
[2018-09-20] MEDS: Heparin VIAL(*) 5000 UNITS/ML VIAL (FIVE THOUSAND) SUBCUT SCH (05:52)
[2018-09-20] MEDS: Mometasone/Formoter 200/5 MDI INH SCH (07:01)
[2018-09-20] MEDS: Tiotropium CAP.INH* CAP.INH/18 MCG (USE ORDER SET !) INH SCH (07:01)
[2018-09-20] MEDS: Furosemide TAB* 20 MG PO SCH (07:27)
[2018-09-20] MEDS: predniSONE TAB* 20 MG PO SCH (07:28)
[2018-09-20] MEDS: Multivitamins/Minerals TAB PO SCH (07:28)
[2018-09-20] MEDS: Ferrous Sulfate TAB* 325 MG PO SCH (07:28)
[2018-09-20] MEDS: Ascorbic Acid TAB* 500 MG PO SCH (07:29)
[2018-09-20] MEDS: Losartan TAB* 25 MG PO SCH (07:29)
[2018-09-20] MEDS: Aspirin EC TAB* 81 MG TAB.EC PO SCH (07:30)
[2018-09-20] MEDS: Pregabalin CAP(*) 25 MG PO SCH (07:31)
[2018-09-20] MEDS: Cholecalciferol TAB* 1000 UNITS PO SCH (07:31)
[2018-09-20] MEDS: Montelukast Sodium TAB* 10 MG PO SCH (07:31)
[2018-09-20] MEDS ORDERED: Mupirocin 2% OINT* TUBE TOPICAL SCH (09:00)
--- NOTE | 2018-09-20 11:10 | PN ---
Subjective Date of Service: 09/20/18 Interval History: Ms. Coburn reports that she is feeling well and is eager for discharge to home. She denies eating high salt foods at home. I talked with her about the fact that she had recently met with Echo Rivero and discussed the fact that she admitting eating pizza multiple nights a week and was counseled about avoiding such high salt foods. She states understanding and notes that she has switched to eating a heart healthy low salt pizza. She has not been weighing herself at home because she tripped and fell getting on the scale "a while back. " She confirms that she would be willing to start weighing herself again. Objective Active Medications: Acetaminophen (Tylenol Tab*) 650 mg PO Q4H PRN Al Hydrox/Mg Hydrox/Simethicone (Maalox Plus*) 30 ml PO Q6H PRN Albuterol (Ventolin Hfa Inhaler*) 2 puff INH QID PRN Albuterol/Ipratropium (Duoneb (Albuterol 2.5 Mg/Ipratropium 0.5 Mg)) 1 neb INH [id number] AWAKE [facility] Ascorbic Acid (Vitamin C Tab*) 1,000 mg PO DAILY [facility] Aspirin (Aspirin Ec Tab*) 81 mg PO DAILY [facility] Atorvastatin Calcium (Lipitor*) 10 mg PO BEDTIME [facility] Cholecalciferol (Vitamin D Tab*) 2,000 units PO DAILY [facility] Ferrous Sulfate (Ferrous Sulfate Tab*) 325 mg PO DAILY [facility] Furosemide (Lasix Tab*) 60 mg PO DAILY [facility] Guaifenesin (Mucinex*) 600 mg PO BID [facility] Heparin Sodium (Porcine) (Heparin Vial(*)) 5,000 units SUBCUT Q8HR [facility] Lorazepam (Ativan Tab(*)) 0.5 mg PO Q6H PRN Losartan Potassium (Cozaar Tab*) 50 mg PO DAILY [facility] Mometasone Furoate/Formoterol Fumar (Dulera 200/5 Mdi*) 2 puff INH BID [facility]; Protocol Montelukast Sodium (Singulair Tab*) 10 mg PO DAILY [facility] Multivitamins/Minerals (Theragran/Minerals Tab*) 1 tab PO DAILY [facility] Mupirocin (Bactroban 2 % Oint*) 1 applic TOPICAL DAILY [facility] Prednisone (Deltasone Tab*) 60 mg PO DAILY [facility] Pregabalin (Lyrica Cap(*)) 25 mg PO DAILY [facility] Pregabalin (Lyrica Cap(*)) 50 mg PO BEDTIME [facility] Senna (Senokot Tab*) 1 tab PO DAILY PRN Tiotropium [place] (Spiriva Cap.Inh*) 1 cap INH DAILY [facility] Vital Signs: Temp Pulse Resp BP Pulse Ox 96.8 F 87 16 136/77 99 09/20/18 07:25 09/20/18 07:25 09/20/18 07:45 09/20/18 07:25 09/20/18 07:25 Oxygen Devices in Use Now: Nasal Cannula Appearance: Female sitting up in chair in NAD Eyes: No Scleral Icterus Ears/Nose/Mouth/Throat: Mucous Membranes Moist Neck: NL Appearance and Movements; NL JVP Respiratory: Symmetrical Chest Expansion and Respiratory Effort, Clear to Auscultation Cardiovascular: NL Sounds; No Murmurs; No JVD, No Edema Abdominal: NL Sounds; No Tenderness; No Distention Extremities: No Edema Neurological: Alert and Oriented x 3, NL Muscle Strength and Tone Nutrition: Taking PO's Result Diagrams: 09/19/18 06:33 09/19/18 06:33 Assess/Plan/Problems-Billing Assessment: Ms. Coburn is a 78 yo female with PMHx systolic CHF, chronic hypoxic resp failure on 4L at home, COPD, CAD, HTN, iron deficiency anemia presents with shortness of breath and bilateral LE edema. - Patient Problems (1) Acute and chronic respiratory failure with hypoxia Comment: - Resolving - Likely a combination of CHF exacerbation and possibly COPD exacerbation - Patient uses 4L oxygen at home - Start prednisone taper - Added spiriva (note reaction listed in chart of tickle in throat to tiotropium , but patient uses duonebs daily at home with no reaction) for better maintenance - Continue home inhalers - Restarting home lasix (2) Congestive heart failure (CHF) Comment: - Edema to LE resolved - Recent echo with EF 40-45% - Presented with bilateral LE +1-2 edema, which is only trace today - Possibly contributing to respiratory status but lung sounds without crackles; CXR with interstitial edema - Continue lasix - Low salt diet reviewed again, patient encouraged to weigh herself daily and to devise a plan with PCP and/or cardiology to take extra lasix as needed (3) COPD exacerbation Comment: - Continue steroid taper. (4) Aortic stenosis Comment: - Recent echo 06/21/18 EF 45% and shows moderate to severe SHADIA 0.88 cm 2 - Recommend continued close follow up with Dr. Shultz (5) CAD (coronary artery disease) Comment: - continue ASA, liptor, losartan 50 mg (6) Chronic foot ulcer Comment: - Appears chronic - Following with integration director outpatient, plan for outpatient MRI (7) Abdominal aortic aneurysm (AAA) 30 to 34 mm in diameter Comment: - US 07/22/18 Reveals 2.8 cm - Continue outpatient surveillance (8) Anemia Comment: - Chronic, stable - Workup done on last hospitalization appears to be anemia of chronic disease (9) Anxiety Comment: - Exacerbated by dyspnea - Continue lorazepam - Also on Lyrica for pain control (10) Elevated troponin Comment: - Asymptomatic - Trops peaked at 0.05; no EKG changes; decreased to 0.04 this morning - Suspect demand ischemia d/t acute COPD exacerbation (11) Hyperlipidemia Comment: - Continue atorvastatin (12) HTN (hypertension) Comment: - Normotensive - Continue losartan and lasix (13) Peripheral neuropathy Comment: - Continue Lyrica (14) DVT prophylaxis Comment: - SQH (15) Full code status Comment: Status and Disposition: Discharge to home.
[2018-09-20 12:57] VITALS: BP 134/77
--- NOTE | 2018-09-20 13:23 | DS ---
CC: Echo Rivero NP * [facility] MEDICINE DISCHARGE SUMMARY: DATE OF ADMISSION: 09/18/18 DATE OF DISCHARGE: 09/20/18 PRIMARY CARE PHYSICIAN: Echo Rivero NP ATTENDING PROVIDER: Ayla Morton MD * (DICTATED BY YONATAN CORTEZ NP) PRIMARY DIAGNOSES: 1. Hmcsf-ue-[id number] respiratory failure, now resolved. 2. Pjxmd-di-haxllbd systolic congestive heart failure exacerbation. 3. Chronic obstructive pulmonary disease exacerbation. SECONDARY DIAGNOSES: 1. History of colon cancer. 2. History of systolic congestive heart failure, chronic. 3. History of chronic hypoxic respiratory failure, on 4 L nasal cannula at home. 4. Anxiety. 5. Iron-deficiency anemia. 6. Coronary artery disease. 7. Aortic stenosis, noted to be zuylpiow-vb-sdqnoe. 8. Hypertension. 9. Hyperlipidemia. 10. Peripheral neuropathy. 11. Osteoporosis. PAST SURGICAL HISTORY: 1. Left hip surgery. 2. Partial colectomy. MEDICATIONS AT THE TIME OF DISCHARGE: 1. Singulair 10 mg p.o. daily. 2. Vitamin E cap 100 units p.o. daily. 3. Vitamin B complex 1 cap p.o. daily. 4. Simvastatin 20 mg p.o. at bedtime. 5. Senna 1 tab p.o. daily p.r.n. 6. Lyrica 25 mg in the morning and 50 mg at bedtime. 7. MiraLAX 17 g p.o. daily. 8. Multivitamin with minerals 1 tab p.o. daily. 9. Lorazepam 0.5 mg p.o. q.6 hours p.r.n. anxiety. 10. Irbesartan 150 mg p.o. daily. 11. Ibuprofen p.r.n. 12. Furosemide 60 mg p.o. daily. 13. Ferrous sulfate 325 mg p.o. daily. 14. Docusate 100 mg p.o. daily. 15. Prolia 60 mg as directed. 16. Cholecalciferol 2000 units p.o. daily. 17. Calcium with vitamin D 1 tab p.o. daily. 18. Symbicort 160/4.5 two puffs inhaled b.i.d. 19. Aspirin 81 mg p.o. daily. 20. Ascorbic acid 1000 mg p.o. daily. 21. Albuterol/ipratropium nebulizer p.r.n. 22. Albuterol inhaler p.r.n. 23. Prednisone via taper. 24. Mupirocin 2%, apply to right foot per Podiatry. HOSPITAL COURSE: Ms. Coburn is a 78-year-old female who presented to the emergency room on 09/18/18 with concern for leg swelling and shortness of breath. Please see the dictated H and P from Nini Charles NP, for complete details. In brief, the patient reported that she had noted some lower extremity swelling in the days prior to admission. At the time of admission, she described that she was also more short of breath in the preceding days and she noted that it became quite severe and therefore she presented to the emergency room. To me today, she reports that she noticed lower extremity swelling at home, but was not short of breath and that she came to the emergency room because she suddenly became very weak. She denies any awareness of what could have possibly led to the lower extremity edema and possible CHF. She denies any untoward salt intake, etc. Regardless, the patient was found to be in acute on chronic respiratory distress suspected to be secondary to acute-on- chronic congestive heart failure exacerbation and perhaps a COPD exacerbation. The patient was treated with Lasix in the emergency room and Solu-Medrol as well as antibiotics to cover for potential COPD exacerbation/pneumonia. Her labs showed no leukocytosis. She was afebrile. She had a chest x-ray, which showed constellation of findings favors bronchopneumonia, correlate with clinical assessment as well as interstitial edema could have a similar appearance. Ms. Coburn has improved quite well with the treatments as noted above. Based on the presence of significant lower extremity edema on arrival, I am most suspicious that her symptoms are secondary to CHF exacerbation. I note that she recently discussed avoidance of salt with her primary care physician, Echo Rivero NP. At that time, the patient noted that she was eating pizza at home and was counseled strongly against avoiding this type of food as it has such high salt content. Today, the patient states she has been eating a heart- healthy frozen pizza. I have again instructed her that she needs to watch the sodium content of this closely and avoid eating more than 3 g of salt a day. She states she has not been weighing herself at home because she tripped and fell trying to get on the scale at one point. I have asked her today and she said she does feel comfortable resuming weighing herself. I have told her that she needs to follow up with her primary care physician and/or Dr. Shultz from Cardiology to discuss how she should manage any weight gain, possibly with additional diuretics to avoid return to the hospital. In addition, the patient has had a long discussion with the pharmacist today and reviewed each medication that she is taking and the indications for them as well as answer to any questions, and again receive counseling about diet and weight monitoring. Ms. Coburn is medically stable for discharge to home. She is on her 4 L nasal cannula per routine. She will be discharged to follow up with a scheduled outpatient MRI for continued monitoring of a right heel callus that is being managed by Podiatry. During this hospitalization, there was no evidence of acute infection there. DISCHARGE CONDITION: Ms. Coburn is medically stable for discharge to home. DIET: Low-fat, low-salt. ACTIVITY: As tolerated. FOLLOWUP PLANS: 1. Please follow up with nurse practitioner Echo Rivero regarding management of CHF and COPD and other medical conditions. 2. Please follow up with Dr. Shultz regarding consideration of additional diuretics p.r.n. for weight gain to avoid hospitalizations. 3. Please follow up with Dr. Bolanos regarding continued management of right foot callus. TIME SPENT: Approximately 75 minutes was spent on the discharge of this patient , more than half the time was spent with the patient at the bedside reviewing the events leading up to this hospitalization and during this hospitalization, performing the physical examination, and reviewing my plan of care. YONATAN CORTEZ NP [id number]/CPS #: [id number] EULALIO
[2018-09-20] MEDS ORDERED: guaiFENesin ER TAB 600 MG PO SCH (22:29)
== END 2018-09-20 12:00 | disposition home health service (06) | DRG 291 ==
LOC: ED 15:08 → MEDTELE 21:17
PROVIDERS: ADMIT Pediatrics; ATTEND Hospitalist
DX: I13.0 Hypertensive heart and chronic kidney disease with heart failure and stage 1 through stage 4 chronic kidney disease, or unspecified chronic kidney disease (principal); J96.21 Acute and chronic respiratory failure with hypoxia; I50.23 Acute on chronic systolic (congestive) heart failure; J44.1 Chronic obstructive pulmonary disease with (acute) exacerbation; Z96.642 Presence of left artificial hip joint; E78.00 Pure hypercholesterolemia, unspecified; M19.90 Unspecified osteoarthritis, unspecified site; M81.0 Age-related osteoporosis without current pathological fracture; M40.209 Unspecified kyphosis, site unspecified; G43.909 Migraine, unspecified, not intractable, without status migrainosus; F41.0 Panic disorder [episodic paroxysmal anxiety]; I25.10 Atherosclerotic heart disease of native coronary artery without angina pectoris; F41.9 Anxiety disorder, unspecified; E78.5 Hyperlipidemia, unspecified; I71.4 Abdominal aortic aneurysm, without rupture; G62.9 Polyneuropathy, unspecified; N18.9 Chronic kidney disease, unspecified; L97.509 Non-pressure chronic ulcer of other part of unspecified foot with unspecified severity; R74.8 Abnormal levels of other serum enzymes; D63.1 Anemia in chronic kidney disease; I35.0 Nonrheumatic aortic (valve) stenosis; Z85.038 Personal history of other malignant neoplasm of large intestine; Z92.21 Personal history of antineoplastic chemotherapy; Z91.041 Radiographic dye allergy status; Z88.5 Allergy status to narcotic agent; Z88.0 Allergy status to penicillin; Z88.8 Allergy status to other drugs, medicaments and biological substances; Z91.018 Allergy to other foods; Z98.42 Cataract extraction status, left eye; Z98.41 Cataract extraction status, right eye; Z90.49 Acquired absence of other specified parts of digestive tract; Z82.49 Family history of ischemic heart disease and other diseases of the circulatory system; Z82.5 Family history of asthma and other chronic lower respiratory diseases; Z87.891 Personal history of nicotine dependence; Z79.82 Long term (current) use of aspirin
CPT/HCPCS: 36415; 71045; 80048; 80053; 81003; 83605; 83735; 83880; 84484; 85025; 85027; 85610; 85730; 93005; 94640; 99284; A9270-GY; J0456; J0696; J1644; J1940; J2930; J7512; J7611

== ENCOUNTER 2018-10-12 10:30 | Inpatient (IN) | payer MEDICARE, BC ==
--- NOTE | 2018-10-12 10:57 | ED ---
Shortness of Breath - HPI Summary HPI Summary: This patient is a 78 year old female with a history of COPD and CHF brought in by EMS presenting to [facility] with a chief complaint of shortness of breath since two days ago. The patient states this episode was triggered with increased heat and humidity. EMS administered a breathing treatment on route via nebulizer and she states it has improved her breathing but it has not yet resolved. The patient also administered her own nebulizer at home and also helped a little bit. The patient reports chronic cough secondary to COPD. The patient denies chest pain. - History of Current Complaint Chief Complaint: EDShortnessOfBreath Time Seen by Provider: 10/12/18 10:42 Hx Obtained From: Patient Onset/Duration: Sudden Onset Alleviating Factors: Bronchodilators Associated Signs & Symptoms: Cough (Productive) - Allergy/Home Medications Allergies/Adverse Reactions: Allergies Allergy/AdvReac Type Severity Reaction Status Date / Time Adhesive Tape Allergy REDDENED Verified 10/12/18 10:40 SKIN codeine Allergy Hives Verified 10/12/18 10:40 iodine Allergy Rash Verified 10/12/18 10:40 Penicillins Allergy Hives Verified 10/12/18 10:40 pineapple AdvReac MOUTH SORE Verified 10/12/18 10:40 tiotropium AdvReac HOARSENESS, Verified 10/12/18 10:40 [From Spiriva with TICKLE IN HandiHaler] THROAT raisins Allergy GI Upset Uncoded 10/12/18 10:40 Home Medications: Home Medications Cetirizine HCl [Zyrtec] 10 mg PO DAILY 10/12/18 [History Confirmed 10/12/18] Polyethylene Glycol 3350* [Miralax*] 17 gm PO SEE INSTRUCTIONS PRN 10/12/18 [ History Confirmed 10/12/18] guaiFENesin [Mucinex] 600 mg PO BID 10/12/18 [History Confirmed 10/12/18] PMH/Surg Hx/FS Hx/Imm Hx Endocrine/Hematology History: Reports: Hx Anemia - iron deficient Denies: Hx Anticoagulant Therapy, Hx Diabetes, Hx Thyroid Disease Cardiovascular History: Reports: Hx Aneurysm - AAA diagnosed 05/28/17, Hx Congestive Heart Failure - LACIX, Hx Hypercholesterolemia, Hx Hypertension, Other Cardiovascular Problems/Disorders - HX OF LUNG SURG 2004 RIGHT SIDE. Denies: Hx Pacemaker/ICD Respiratory History: Reports: Hx Asthma, Hx Chronic Obstructive Pulmonary Disease (COPD), Hx Pneumonia, Hx Seasonal Allergies Denies: Hx Lung Cancer, Hx Sleep Apnea GI History: Reports: Other GI Disorders - Colon CA, current constipation Denies: Hx Gall Bladder Disease, Hx Gastroesophageal Reflux Disease, Hx Ulcer History: Reports: Other Problems/Disorders - Bladder smaller from colon Denies: Hx Dialysis, Hx Renal Disease Musculoskeletal History: Reports: Hx Arthritis, Hx Back Problems, Hx Orthopedic Injury, Hx Osteoporosis, Hx Tendonitis, Other Musculoskeletal History - kyphosis Denies: Hx Bursitis, Hx Scoliosis Sensory History: Reports: Hx Cataracts, Hx Contacts or Glasses Denies: Hx Glaucoma, Hx Hearing Aid, Hx Hearing Problem, Other Sensory Impairments Opthamlomology History: Reports: Hx Cataracts, Hx Contacts or Glasses Denies: Hx Glaucoma, Other Sensory Impairments Neurological History: Reports: Hx Migraine - childhood migraines resolved at 22 years old, Other Neuro Impairments/Disorders - LEFT HIP SX X 2 MO AGO Denies: Hx Headaches, Hx Nerve Disease Psychiatric History: Reports: Hx Panic Disorder - Cancer History Cancer Type, Location and Year: Colon CA Hx Chemotherapy: Yes Hx Radiation Therapy: No - Surgical History Surgery Procedure, Year, and Place: Empyema removal 1983,. Broken elbow left repair ORIF (plate) Apr 1999 and later hardware removal ;. Colon cancer dx 2007 , colon resection. Hernia repair 2009. Partial L Hip Replacement September 2012. BILATERAL CATARACTS. LEFT HIP REVISION 2013. HEART CATH 2018 Hx Anesthesia Reactions: No - Immunization History Date of Tetanus Vaccine: utd Date of Influenza Vaccine: fall 2017 Infectious Disease History: No Infectious Disease History: Denies: Hx Hepatitis, Hx Human Immunodeficiency Virus (HIV), History Other Infectious Disease, Traveled Outside the [place] in Last 30 Days - Family History Known Family History: Positive: Cardiac Disease, Respiratory Disease, Other - Aortic aneurysm Negative: Blood Disorder - Social History Alcohol Use: Rare Alcohol Amount: 1 GLASS OF WINE DAILY Hx Substance Use: No Substance Use Type: Reports: None Hx Tobacco Use: Yes Smoking Status (MU): Former Smoker Type: Cigarettes Amount Used/How Often: 1 1/2 PPD X 30 YEARS Have You Smoked in the Last Year: No Review of Systems Negative: Chest Pain Positive: Shortness Of Breath, Cough All Other Systems Reviewed And Are Negative: Yes Physical Exam - Summary Physical Exam Summary: Appearance: The patient is well-nourished in no acute distress and in no acute pain. Skin: The skin is warm and dry and skin color reflects adequate perfusion. HEENT: The head is normocephalic and atraumatic. The pupils are equal and reactive. The conjunctivae are clear and without drainage. Nares are patent and without drainage. Mouth reveals moist mucous membranes and the throat is without erythema and exudate. The external ears are intact. The ear canals are patent and without drainage. The tympanic membranes are intact. Neck: The neck is supple with full range of motion and non-tender. There are no carotid bruits. There is no neck vein distension. Respiratory: Chest is non-tender. Lungs are clear to auscultation and breath sounds are symmetrical and equal. Tachypnic. Decreased breath sounds and decreased E to I ratio. Cardiovascular: Heart is tachycardic. There is no murmur or rub auscultated. There is no peripheral edema and pulses are symmetrical and equal. Abdomen: The abdomen is soft and non-tender. There are normal bowel sounds heard in all four quadrants and there is no organomegaly palpated. Musculoskeletal: There is no back tenderness noted. Extremities are non-tender with full range of motion. There is good capillary refill. There is no peripheral edema or calf tenderness elicited. Chronic venous stasis changes in both legs. Bilateral edema in both legs. Neurological: Patient is alert and oriented to person, place and time. The patient has symmetrical motor strength in all four extremities. Cranial nerves are grossly intact. Deep tendon reflexes are symmetrical and equal in all four extremities. Psychiatric: The patient has an appropriate affect and does not exhibit any anxiety or depression. Triage Information Reviewed: Yes Vital Signs On Initial Exam: Initial Vitals Temp Pulse Resp BP Pulse Ox 98.6 F 92 28 112/62 95 10/12/18 10:35 10/12/18 10:35 10/12/18 10:35 10/12/18 10:35 10/12/18 10:35 Vital Signs Reviewed: Yes Diagnostics - Vital Signs Vital Signs Temp Pulse Resp BP Pulse Ox 10/12/18 10:35 98.6 F 92 28 112/62 95 - Laboratory Result Diagrams: 10/12/18 12:57 10/12/18 12:57 Lab Statement: Any lab studies that have been ordered have been reviewed, and results considered in the medical decision making process. - Radiology CXR Radiology Interpretation Completed By: Radiologist Summary of Radiographic Findings: Interstitial edema with vascular congestion. ED Provider has reviewed this report. - EKG 1133 Cardiac Rate: NL EKG Rhythm: Sinus Rhythm - 92 BPM Summary of EKG Findings: Left axis deviation. Course/Dx - Course Course Of Treatment: Ms. Coburn began to get short of breath again the last couple of days. She denies any unusual cough but has a harsh wet cough while I' m in the room. She denies any fevers or congestion. She's been using her nebulizers at home and taking her medication. She did get quite a bit of improvement with the nebulizer in the ambulance on the way here. She was tachypneic and tachycardic when I saw her and looking anxious. She was treated with Solu-Medrol and another DuoNeb. When her chest x-ray returned she was given Lasix 60 mg IV which is her normal by mouth dose. This treatment didn't improve her and she was much more comfortable but clearly has increased pulmonary edema with reactive bronchospasm and I have asked the hospitalist to evaluate her for admission. - Diagnoses Provider Diagnoses: COPD (chronic obstructive pulmonary disease), COPD exacerbation, Pleural effusion, Congestive heart failure (CHF) - Physician Notifications Discussed Care of Patient With: Stewart Angelo - 1400 - Critical Care Time Critical Care Time: 30-74 min Discharge - Sign-Out/Discharge Documenting (check all that apply): Patient Departure Patient Received Moderate/Deep Sedation with Procedure: No - Discharge Plan Condition: Stable Disposition: ADMITTED TO [facility] Referrals: Echo Rivero [employer] [Primary Care Provider] - - Billing Disposition and Condition Condition: STABLE Disposition: Admitted to [facility] - Attestation Statements Document Initiated by Sheba: Yes Documenting Aishaibe: Kb Alberto Provider For Whom Sheba is Documenting (Include Credential): MD Sheba Ortiz Attestation: IKb, scribed for Heriberto Mejias MD on 10/12/18 at 1419. Scribe Documentation Reviewed: Yes Provider Attestation: The documentation as recorded by the Kb veliz accurately reflects the service I personally performed and the decisions made by me, Heriberto Mejias MD Status of Scribe Document: Viewed
[2018-10-12] MEDS ORDERED: Albuterol/Ipratropium NEB.SOL* Albuterol 2.5 MG/Ipratropium 0.5 MG 3 ML INH ONE (11:20)
[2018-10-12] MEDS ORDERED: methylPREDNISolone 125 MG* 2 ML VIAL IV ONE (11:20)
[2018-10-12] MEDS ORDERED: Furosemide IV* 10 MG/ML 10 ML VIAL (100 MG) IV ONE (12:26)
[2018-10-12 13:09] LABS: ABS Eosinophils 0.2 10^3/ul (0-0.6); ABS Lymphocytes 0.5 10^3/ul (1.0-4.8); ABS Monocytes 0.5 10^3/ul (0-0.8); Eosinophil % 3.9 %; Hematocrit 34 % (35-47); Hemoglobin 11.6 g/dL (12.0-16.0); Lymphocyte % 8.2 %; Mean Corpuscular HGB Conc 34 g/dL (31-36); Mean Corpuscular Hemoglobin 31 pg (27-31); Mean Corpuscular Volume 90 fL (80-97); Mean Platelet Volume 7.4 fL (7.4-10.4); Platelet Count 232 10^3/uL (150-450); Red Blood Count 3.74 10^6 /uL (3.70-4.87); Red Cell Distribution Width 14 % (10-15); White Blood Count 6.2 10^3/uL (3.5-10.8)
[2018-10-12 13:27] LABS: ALT 16 U/L (7-52); AST 21 U/L (13-39); Albumin 3.5 g/dL (3.2-5.2); Albumin/Globulin Ratio 1.3 (1-3); Alkaline Phosphatase 80 U/L (34-104); Anion Gap 4 mmol/L (2-11); BUN/Creatinine Ratio 24.1 (8-20); Blood Urea Nitrogen 21 mg/dL (6-24); C Reactive Protein 19.83 mg/L (<8.01); CO2 Carbon Dioxide 34 mmol/L (22-32); Calcium 9.2 mg/dL (8.6-10.3); Chloride 99 mmol/L (101-111); EGFR African American 76.2 (>60); Globulin 2.6 g/dL (2-4); Glucose 103 mg/dL (70-100); Potassium 4.1 mmol/L (3.5-5.0); Sodium 137 mmol/L (135-145); Total Protein 6.1 g/dL (6.4-8.9)
[2018-10-12 13:35] LABS: Troponin I 0.05 ng/mL (<0.04)
[2018-10-12] MEDS ORDERED: Acetaminophen TAB* 325 MG PO PRN (14:58)
[2018-10-12] MEDS ORDERED: Senna TAB PO PRN (15:01)
--- NOTE | 2018-10-12 17:48 | HP ---
HISTORY AND PHYSICAL: DATE OF ADMISSION: 10/12/18 PROVIDER: Nini Charles NP PRIMARY CARE PHYSICIAN: Echo Rivero NP ATTENDING PHYSICIAN WHILE IN THE HOSPITAL: Dr. Stewart Angelo * dictated by Nini Charles NP) CHIEF COMPLAINT: Shortness of breath. HISTORY OF PRESENT ILLNESS: Ms. Coburn is a 78-year-old female with a past medical history significant for colon cancer, congestive heart failure, COPD, hypertension, hyperlipidemia, aortic aneurysm, who presented to the emergency room with complaints of worsening shortness of breath over the past 2 days. The patient reports that with the increased humidity, she has been experiencing , increased shortness of breath. She does report that when the humidity decreases at night, her breathing feels better and her breathing is better at night. She reports that this morning her shortness of breath became worse and she was unable to catch her breath, so she presented to the emergency room for further evaluation. She does report increased cough and sputum production for the last 2 days. She does also report that she has had to increase her oxygen up to 6 L due to her increased shortness of breath. She reports she has been sleeping in a recliner for the past 2 days due to increased shortness of breath. She does not know how much of weight gain she has had. She does report increased swelling in her lower extremities for the past 2 to 3 days. She also reports an ulcer to her left plantar aspect of the foot at the base of the left great toe for several months. She denies any increased pain. She does report some drainage from the wound. She is followed by Wound Care as well. She denies any fever or chills. She denies any chest pain. She does report increased cough and sputum production with yellow sputum. She denies any nausea, vomiting, diarrhea, abdominal pain, hematuria, dysuria. She denies any focal weakness or sensory loss. She denies any visual complaints, dysphagia , arthralgias, myalgias. She does have an open ulceration noted to the left plantar aspect of her foot. She denies any psychosis or anxiety. Due to increased shortness of breath, we were asked to see and evaluate her for admission. PAST MEDICAL HISTORY: Significant for: 1. Colon cancer. 2. Diastolic congestive heart failure. 3. Chronic hypoxic respiratory failure requiring 4 L O2 at home. 4. COPD. 5. Asthma. 6. Anxiety. 7. Iron deficiency anemia. 8. Coronary artery disease. 9. Aortic stenosis, moderate to severe. 10. Hypertension. 11. Hyperlipidemia. 12. Peripheral neuropathy. 13. Osteoporosis. PAST SURGICAL HISTORY: 1. Left hip surgery. 2. Partial colectomy. 3. Left elbow fracture repair. 4. Tonsillectomy. HOME MEDICATIONS: Include: 1. Singulair 10 mg p.o. daily. 2. Vitamin E 1000 mg p.o. daily. 3. Vitamin B complex 1 tab p.o. daily. 4. Simvastatin 20 mg p.o. at bedtime. 5. Senna 1 tab p.o. daily p.r.n. 6. Lyrica 50 mg at bedtime, 25 mg during the day. 7. MiraLAX 17 g p.o. p.r.n. constipation. 8. Multivitamin 1 tab p.o. daily. 9. Lorazepam 0.5 mg p.o. q.6 hours as needed. 10. Irbesartan 150 mg p.o. daily. 11. Ibuprofen 400 mg p.o. q.6 hours as needed. 12. Furosemide 60 mg p.o. daily. 13. Colace 100 mg at bedtime. 14. Prolia q.6 months. Next due in February. 15. Vitamin D 2000 units p.o. daily. 16. Calcium 1 tab p.o. daily. 17. Symbicort 2 puffs inhale b.i.d. 18. Aspirin 81 mg p.o. daily. 19. Ascorbic acid 1000 mg p.o. daily. 20. DuoNeb 1 neb 4 times a day as needed for shortness of breath. 21. Albuterol HFA inhaler 2 puffs 4 times a day as needed for shortness of breath. ALLERGIES: 1. ADHESIVE TAPE. 2. CODEINE. 3. IODINE. 4. PENICILLIN. 5. PINEAPPLE. 6. SPIRIVA HANDIHALER. 7. RAISINS. FAMILY HISTORY: Sister with a history of congestive heart failure, passed from congestive heart failure. Mother with abdominal aortic aneurysm, at the age of 72 due to the aneurysm. No reported family history of diabetes. Father with unknown type of cancer. SOCIAL HISTORY: The patient reports that she quit smoking in 2004. Prior to that she smoked 2 packs a day for approximately 50 years. She denies any alcohol or illicit drug use. She lives alone. Surrogate decision maker in the event she is unable to make her own decisions is her daughter, Lily. She is currently independent. She walks with a walker. She lives alone, daughter lives next door. She is a full code. REVIEW OF SYSTEMS: A 14-point review of systems was completed. All pertinent positives were mentioned in the HPI. Otherwise were negative. PHYSICAL EXAMINATION GENERAL: At this time, Ms. Coburn is a 78-year-old female. She is resting comfortably on the stretcher in the emergency room. She is not in any acute distress. VITAL SIGNS: 126/80, heart rate 89, respiratory rate 17, O2 saturations 92% on 4 L nasal canula, temperature was 98.6. HEENT: Head is atraumatic, normocephalic. Eyes: EOMs are intact. Sclerae anicteric and not pale. Oral mucosa appeared to be moist. NECK: Supple. LUNGS: Crackles in the bases bilaterally. She does have expiratory wheezes, scattered bilaterally. Moist congestive cough. CARDIAC: S1, S2. Regular rate and rhythm. No murmurs, rubs or gallops. ABDOMEN: Soft and nontender. Bowel sounds are present x4. EXTREMITIES: She is able to move all 4 extremities. There is no clubbing or cyanosis. She does have +2 pitting edema noted to bilateral lower extremities with mild red discoloration. She does have an ulcer noted to her left foot on the plantar aspect at the base of the great toe. There was a mild amount of purulent drainage noted to old dressing. NEUROLOGIC: She is awake, alert, oriented x3. Speech is clear. Thought process is intact. There are no gross focal deficits. SKIN: She does have ulceration noted to plantar aspect of the left foot at the base of the great toe with open area and small amount of purulent drainage noted to the old dressing. There is mild erythema surrounding the ulceration. DIAGNOSTIC STUDIES/LAB DATA: WBCs are 6.2, RBCs 3.74, hemoglobin 11.6, hematocrit 34, platelet count 232. Sodium 137, potassium 4.1, chloride 99, carbon dioxide is 34, anion gap was 4, BUN 21. Creatinine 0.87, glucose 103. Lactic acid 0.7. ASTs were 21, ALTs were 16, alkaline phosphatase 80. Troponin was 0.05 which is at her baseline. C-reactive protein was 19.83. BNP was 1070. EKG shows sinus rhythm at a rate of 92. She had a chest x-ray, radiologist's impression: Interstitial edema with vascular congestion. ASSESSMENT AND PLAN: Ms. Coburn is an 78-year-old female with a past medical history significant for congestive heart failure, chronic obstructive pulmonary disease, hypertension, hyperlipidemia, history of colon cancer, who presented to the emergency room with complaints of progressively worsening shortness of breath. She will be admitted inpatient for: 1. Acute on chronic congestive heart failure. The patient was given 60 mg of Lasix in the emergency room. I will give her a dose of 60 Lasix IV in the a.m. then reevaluate her fluid status for further dosing of her Lasix. The patient has put out 1200 cc in the emergency room since her dose of Lasix. I suspect that her shortness of breath is also complicated by underlying chronic obstructive pulmonary disease. I will continue her nebulizers. She did receive Solu-Medrol 125 in the emergency room. I will continue her prednisone 40 mg p.o. daily. At this time, the patient does report increased productive cough and increased shortness of breath. I will place her on azithromycin as well. I suspect that her increased shortness of breath again is related to acute on chronic diastolic heart failure with an exacerbation of her chronic obstructive pulmonary disease as the patient does report that her shortness of breath became progressively worse with the increased humidity. Strict i/o's and daily weights. 2. Chronic obstructive pulmonary disease with chronic hypoxic respiratory failure. We will continue home nebulizers as previously prescribed. I will continue her prednisone 40 mg p.o. daily. I am going to give her azithromycin as the patient does report increased sputum production and increased shortness of breath, increased cough, all consistent with exacerbation of chronic obstructive pulmonary disease. Given that this is her second exacerbation within 3 weeks, she may benefit from antibiotics at this time. 3. Hypertension. We will continue her on her losartan as previously prescribed. 4. Hyperlipidemia. Continue on atorvastatin 10 mg p.o. daily. 5. Elevated troponin: The patient does have chronically elevated troponin. She is at baseline at this time. I suspect her elevated troponin is related to her underlying diastolic congestive heart failure complicated by chronic obstructive pulmonary disease. The patient denies any chest pain. I will get a repeat EKG in the a.m. 6. Elevated BNP: The patient appears to have exacerbation of her acute on chronic diastolic congestive heart failure. She was given 60 mg of Lasix in the emergency room. I will give her another dose of 60 mg of Lasix in the a.m. and we will reevaluate her fluid status after that point and repeat Lasix dosing as needed. 7. For ulceration, she does have an ulceration noted to the plantar aspect of the left foot at the base of the great toe. I did send a culture which is currently pending. She does have some surrounding erythema. She denies any increased pain. She does report some drainage, though old dressing did have purulent drainage noted, small amount. She reports she is currently doing Medihoney and dry dressing to the foot. She reports she also had recently had an MRI on 09/20/18 which showed superficial soft tissue ulcer medial plantar aspect of the forefoot without findings to indicate osteomyelitis. No loculated soft tissue plane abscess nonspecific first metatarsophalangeal joint effusion. The patient does have a history of methicillin-resistant Staphylococcus aureus in that wound. I will hold on antibiotics at this time and we will treat based on wound culture. 8. FEN. The patient will be placed on a heart-healthy diet. 9. Code status. She is a full code. 10. DVT prophylaxis. I will place her on heparin subcu. TIME SPENT: Time spent on this admission was approximately 60 minutes, greater than half that time was spent at the bedside reviewing events leading thus far to her hospitalization, performing physical exam, and reviewing my plan of care. I have discussed this with my attending Dr. Stewart Angelo; he is in agreement with my plan. NINI CHARLES, UNIQUE [id number]/[facility] #: [id number] EULALIO
[2018-10-12] MEDS: Azithromycin 500 mg/250 ml NS 500 MG/250 ML BAG IVPB SCH (18:05)
[2018-10-12] MEDS: Albuterol/Ipratropium NEB.SOL* Albuterol 2.5 MG/Ipratropium 0.5 MG 3 ML INH PRN (19:55)
[2018-10-12] MEDS: Mometasone/Formoter 200/5 MDI INH SCH (19:57)
[2018-10-12] MEDS: Pregabalin CAP(*) 50 MG PO SCH (20:35)
[2018-10-12] MEDS: Docusate CAP* 100 MG PO SCH (20:36)
[2018-10-12] MEDS: Atorvastatin* 10 MG TAB PO SCH (20:36)
[2018-10-12] MEDS: Heparin VIAL(*) 5000 UNITS/ML VIAL (FIVE THOUSAND) SUBCUT SCH (21:29)
[2018-10-13] MEDS: guaiFENesin ER TAB 600 MG PO PRN ×2 (02:00→20:55)
[2018-10-13] MEDS: Heparin VIAL(*) 5000 UNITS/ML VIAL (FIVE THOUSAND) SUBCUT SCH ×3 (05:57→21:49)
[2018-10-13 07:30] LABS: ABS Lymphocytes 0.5 10^3/ul (1.0-4.8); ABS Monocytes 0.7 10^3/ul (0-0.8); Eosinophil % 0.3 %; Hematocrit 32 % (35-47); Hemoglobin 10.9 g/dL (12.0-16.0); Lymphocyte % 11.6 %; Mean Corpuscular HGB Conc 34 g/dL (31-36); Mean Corpuscular Hemoglobin 31 pg (27-31); Mean Corpuscular Volume 90 fL (80-97); Mean Platelet Volume 7.5 fL (7.4-10.4); Nucleated Red Blood Cells % 0.1; Platelet Count 237 10^3/uL (150-450); Red Blood Count 3.53 10^6 /uL (3.70-4.87); Red Cell Distribution Width 15 % (10-15); White Blood Count 4.2 10^3/uL (3.5-10.8)
[2018-10-13 07:48] LABS: Calcium 8.4 mg/dL (8.6-10.3); EGFR African American 70.6 (>60); EGFR Non-African American 58.3 (>60); Potassium 4.1 mmol/L (3.5-5.0)
[2018-10-13] MEDS: Mometasone/Formoter 200/5 MDI INH SCH ×2 (08:21→19:39)
[2018-10-13] MEDS: Albuterol/Ipratropium NEB.SOL* Albuterol 2.5 MG/Ipratropium 0.5 MG 3 ML INH PRN ×2 (08:21→16:19)
[2018-10-13] MEDS ORDERED: Furosemide IV* 10 MG/ML VIAL (40 MG) IV ONE (09:00)
[2018-10-13] MEDS: Losartan TAB* 25 MG PO SCH (11:19)
[2018-10-13] MEDS: predniSONE TAB* 20 MG PO SCH (11:19)
[2018-10-13] MEDS: Cholecalciferol TAB* 1000 UNITS PO SCH (11:20)
[2018-10-13] MEDS: Aspirin EC TAB* 81 MG TAB.EC PO SCH (11:20)
[2018-10-13] MEDS: Pregabalin CAP(*) 25 MG PO SCH (11:20)
[2018-10-13] MEDS: Multivitamins/Minerals TAB PO SCH (11:21)
[2018-10-13] MEDS: Ascorbic Acid TAB* 500 MG PO SCH (11:21)
[2018-10-13] MEDS: Montelukast Sodium TAB* 10 MG PO SCH (11:22)
[2018-10-13] MEDS: VITAMIN E 100 UNIT PO SCH (11:22)
[2018-10-13] MEDS: Cetirizine* 10 MG TAB PO SCH (11:22)
[2018-10-13] MEDS: Vitamin B Complex TAB PO SCH (11:25)
--- NOTE | 2018-10-13 14:17 | PN ---
Subjective Date of Service: 10/13/18 Interval History: Pt's SOB is improving today. Pt noted that her feet are chronically swolen Objective Active Medications: Acetaminophen (Tylenol Tab*) 650 mg PO Q4H PRN PRN Reason: FEVER/PAIN Albuterol (Ventolin Hfa Inhaler*) 2 puff INH QID PRN PRN Reason: COUGH Albuterol/Ipratropium (Duoneb (Albuterol 2.5 Mg/Ipratropium 0.5 Mg)) 1 neb INH QID PRN PRN Reason: SHORTNESS OF BREATH Last Admin: 10/13/18 08:21 Dose: 1 neb Ascorbic Acid (Vitamin C Tab*) 1,000 mg PO DAILY [facility] Last Admin: 10/13/18 11:21 Dose: 1,000 mg Aspirin (Aspirin Ec Tab*) 81 mg PO DAILY [facility] Last Admin: 10/13/18 11:20 Dose: 81 mg Atorvastatin Calcium (Lipitor*) 10 mg PO BEDTIME [facility] Last Admin: 10/12/18 20:36 Dose: 10 mg Cetirizine HCl (Zyrtec*) 10 mg PO DAILY [facility] Last Admin: 10/13/18 11:22 Dose: 10 mg Cholecalciferol (Vitamin D Tab*) 2,000 units PO DAILY [facility] Last Admin: 10/13/18 11:20 Dose: 2,000 units Docusate Sodium (Colace Cap*) 100 mg PO 2100 [facility] Last Admin: 10/12/18 20:36 Dose: 100 mg Guaifenesin (Mucinex*) 600 mg PO BID PRN PRN Reason: COUGH Last Admin: 10/13/18 02:00 Dose: 600 mg Heparin Sodium (Porcine) (Heparin Vial(*)) 5,000 units SUBCUT Q8HR [facility] Last Admin: 10/13/18 05:57 Dose: 5,000 units Azithromycin (Zithromax 500 Mg/250 Ml) 500 mg in 250 mls @ 250 mls/hr IVPB Q24H [facility] Last Admin: 10/12/18 18:05 Dose: 250 mls/hr Lorazepam (Ativan Tab(*)) 0.5 mg PO Q6H PRN PRN Reason: ANXIETY Losartan Potassium (Cozaar Tab*) 50 mg PO DAILY [facility] Last Admin: 10/13/18 11:19 Dose: 50 mg Mometasone Furoate/Formoterol Fumar (Dulera 200/5 Mdi*) 2 puff INH BID [facility]; Protocol Last Admin: 10/13/18 08:21 Dose: 2 puff Montelukast Sodium (Singulair Tab*) 10 mg PO DAILY [facility] Last Admin: 10/13/18 11:22 Dose: 10 mg Multivitamins/Minerals (Theragran/Minerals Tab*) 1 tab PO DAILY [facility] Last Admin: 10/13/18 11:21 Dose: 1 tab Non-Formulary Medication *Vitamin E 100 Units* 1 dose PO DAILY [facility] Last Admin: 10/13/18 11:22 Dose: Not Given Prednisone (Deltasone Tab*) 40 mg PO DAILY [facility] Last Admin: 10/13/18 11:19 Dose: 40 mg Pregabalin (Lyrica Cap(*)) 25 mg PO DAILY [facility] Last Admin: 10/13/18 11:20 Dose: 25 mg Pregabalin (Lyrica Cap(*)) 50 mg PO BEDTIME [facility] Last Admin: 10/12/18 20:35 Dose: 50 mg Senna (Senokot Tab*) 1 tab PO DAILY PRN PRN Reason: CONSTIPATION Vitamin B Complex/Vitamin E (B Complex-50*) 1 tab PO DAILY [facility] Last Admin: 10/13/18 11:25 Dose: 1 tab Vital Signs - 8 hr 10/13/18 10/13/18 10/13/18 07:47 08:00 08:23 Temperature 97.4 F Pulse Rate 82 79 Respiratory 16 16 18 Rate Blood Pressure 126/71 (mmHg) O2 Sat by Pulse 100 100 Oximetry 10/13/18 11:20 Temperature Pulse Rate Respiratory 16 Rate Blood Pressure (mmHg) O2 Sat by Pulse Oximetry Oxygen Devices in Use Now: Nasal Cannula Appearance: 78 yo F in nAD, aAOx3 Eyes: No Scleral Icterus, PERRLA Ears/Nose/Mouth/Throat: NL Teeth, Lips, Gums, Mucous Membranes Moist Neck: NL Appearance and Movements; NL JVP, Trachea Midline Respiratory: Symmetrical Chest Expansion and Respiratory Effort, - - crackles at b/l bazesz, scatered wheezes throughout Cardiovascular: NL Sounds; No Murmurs; No JVD, RRR Abdominal: NL Sounds; No Tenderness; No Distention Lymphatic: No Cervical Adenopathy Extremities: - - +1 pitting edema b/l Neurological: NL Muscle Strength and Tone Result Diagrams: 10/13/18 07:03 10/13/18 07:03 Microbiology and Other Data: Microbiology 10/12/18 12:57 Aerobic Blood Culture - Preliminary Blood Venous No Growth Day 1 Anaerobic Blood Culture - Preliminary No Growth Day 1 10/12/18 12:56 Aerobic Blood Culture - Preliminary Blood Venous No Growth Day 1 Anaerobic Blood Culture - Preliminary No Growth Day 1 Assess/Plan/Problems-Billing Assessment: 78W with COPD on 4L home O2, HFrEF 40-45%, AAA, colon cancer s/p resection/chemo, presents with subacute progressive dyspnea, productive cough, and LE edema. - Patient Problems (1) Diastolic CHF, acute on chronic Comment: - Vascular congestion noted on cxray, -cont IV Lasix - Echo 06/15/17 with intact EF but evidence of diastolic dysfuction and bi-atrial enlargement with possible underestimation of pulmonary hypertension. (2) Acute and chronic respiratory failure with hypoxia Comment: - Resolving - Likely a combination of CHF exacerbation and possibly COPD exacerbation - Patient uses 4L oxygen at home - cont prednisone - Continue home inhalers -cont daily Lasix IV (3) COPD exacerbation Comment: - Continue steroid taper. (4) Abdominal aortic aneurysm (AAA) 30 to 34 mm in diameter Comment: - US 07/22/18 Reveals 2.8 cm - Continue outpatient surveillance (5) Aortic stenosis Comment: - Recent echo 06/21/18 EF 45% and shows moderate to severe SHADIA 0.88 cm 2 - Recommend continued close follow up with Dr. Shultz (6) Elevated troponin Comment: - Asymptomatic - Trops peaked at 0.05-chron ic - Suspect demand ischemia d/t acute COPD exacerbation (7) DVT prophylaxis Comment: - SQH Status and Disposition: inpatient
[2018-10-13] MEDS: Furosemide IV* 10 MG/ML VIAL (40 MG) IV SCH (15:41)
[2018-10-13] MEDS: Azithromycin 500 mg/250 ml NS 500 MG/250 ML BAG IVPB SCH (17:02)
[2018-10-13] MEDS: Albuterol HFA INHALER* 8 gm MDI INH PRN (19:38)
[2018-10-13] MEDS: Docusate CAP* 100 MG PO SCH (20:49)
[2018-10-13] MEDS: Atorvastatin* 10 MG TAB PO SCH (20:49)
[2018-10-13] MEDS: Pregabalin CAP(*) 50 MG PO SCH (20:49)
[2018-10-14] MEDS: LORazepam TAB(*) 0.5 MG PO PRN ×2 (02:55→21:52)
[2018-10-14] MEDS: Albuterol/Ipratropium NEB.SOL* Albuterol 2.5 MG/Ipratropium 0.5 MG 3 ML INH PRN ×3 (03:11→16:09)
[2018-10-14] MEDS: Heparin VIAL(*) 5000 UNITS/ML VIAL (FIVE THOUSAND) SUBCUT SCH ×3 (05:48→21:48)
[2018-10-14] MEDS: Mometasone/Formoter 200/5 MDI INH SCH ×2 (07:47→19:45)
[2018-10-14] MEDS: predniSONE TAB* 20 MG PO SCH (10:17)
[2018-10-14] MEDS: Losartan TAB* 25 MG PO SCH (10:17)
[2018-10-14] MEDS: Multivitamins/Minerals TAB PO SCH (10:18)
[2018-10-14] MEDS: Cholecalciferol TAB* 1000 UNITS PO SCH (10:18)
[2018-10-14] MEDS: Aspirin EC TAB* 81 MG TAB.EC PO SCH (10:18)
[2018-10-14] MEDS: Vitamin B Complex TAB PO SCH (10:19)
[2018-10-14] MEDS: Ascorbic Acid TAB* 500 MG PO SCH (10:19)
[2018-10-14] MEDS: Pregabalin CAP(*) 25 MG PO SCH (10:20)
[2018-10-14] MEDS: VITAMIN E 100 UNIT PO SCH (10:21)
[2018-10-14] MEDS: Montelukast Sodium TAB* 10 MG PO SCH (10:21)
[2018-10-14] MEDS: Cetirizine* 10 MG TAB PO SCH (10:21)
[2018-10-14] MEDS: Furosemide IV* 10 MG/ML VIAL (40 MG) IV SCH (10:21)
[2018-10-14] MEDS ORDERED: Furosemide IV* 10 MG/ML VIAL (40 MG) IV ONE (12:50)
--- NOTE | 2018-10-14 12:52 | PN ---
Subjective Date of Service: 10/14/18 Interval History: Pt is still SOB today , no better c/w yesterday Objective Active Medications: Acetaminophen (Tylenol Tab*) 650 mg PO Q4H PRN PRN Reason: FEVER/PAIN Albuterol (Ventolin Hfa Inhaler*) 2 puff INH QID PRN PRN Reason: COUGH Last Admin: 10/13/18 19:38 Dose: 2 puff Albuterol/Ipratropium (Duoneb (Albuterol 2.5 Mg/Ipratropium 0.5 Mg)) 1 neb INH QID PRN PRN Reason: SHORTNESS OF BREATH Last Admin: 10/14/18 07:47 Dose: 1 neb Ascorbic Acid (Vitamin C Tab*) 1,000 mg PO DAILY [facility] Last Admin: 10/14/18 10:19 Dose: 1,000 mg Aspirin (Aspirin Ec Tab*) 81 mg PO DAILY [facility] Last Admin: 10/14/18 10:18 Dose: 81 mg Atorvastatin Calcium (Lipitor*) 10 mg PO BEDTIME [facility] Last Admin: 10/13/18 20:49 Dose: 10 mg Cetirizine HCl (Zyrtec*) 10 mg PO DAILY [facility] Last Admin: 10/14/18 10:21 Dose: 10 mg Cholecalciferol (Vitamin D Tab*) 2,000 units PO DAILY [facility] Last Admin: 10/14/18 10:18 Dose: 2,000 units Docusate Sodium (Colace Cap*) 100 mg PO 2100 [facility] Last Admin: 10/13/18 20:49 Dose: 100 mg Furosemide (Lasix Iv*) 40 mg IV DAILY [facility] Last Admin: 10/14/18 10:21 Dose: 40 mg Furosemide (Lasix Iv*) 40 mg IV ONCE ONE Stop: 10/14/18 12:51 Guaifenesin (Mucinex*) 600 mg PO BID PRN PRN Reason: COUGH Last Admin: 10/13/18 20:55 Dose: 600 mg Heparin Sodium (Porcine) (Heparin Vial(*)) 5,000 units SUBCUT Q8HR [facility] Last Admin: 10/14/18 05:48 Dose: 5,000 units Azithromycin (Zithromax 500 Mg/250 Ml) 500 mg in 250 mls @ 250 mls/hr IVPB Q24H [facility] Last Admin: 10/13/18 17:02 Dose: 250 mls/hr Lorazepam (Ativan Tab(*)) 0.5 mg PO Q6H PRN PRN Reason: ANXIETY Last Admin: 10/14/18 02:55 Dose: 0.5 mg Losartan Potassium (Cozaar Tab*) 50 mg PO DAILY [facility] Last Admin: 10/14/18 10:17 Dose: 50 mg Mometasone Furoate/Formoterol Fumar (Dulera 200/5 Mdi*) 2 puff INH BID [facility]; Protocol Last Admin: 10/14/18 07:47 Dose: 2 puff Montelukast Sodium (Singulair Tab*) 10 mg PO DAILY [facility] Last Admin: 10/14/18 10:21 Dose: 10 mg Multivitamins/Minerals (Theragran/Minerals Tab*) 1 tab PO DAILY [facility] Last Admin: 10/14/18 10:18 Dose: 1 tab Non-Formulary Medication *Vitamin E 100 Units* 1 dose PO DAILY [facility] Last Admin: 10/14/18 10:21 Dose: Not Given Prednisone (Deltasone Tab*) 40 mg PO DAILY [facility] Last Admin: 10/14/18 10:17 Dose: 40 mg Pregabalin (Lyrica Cap(*)) 25 mg PO DAILY [facility] Last Admin: 10/14/18 10:20 Dose: 25 mg Pregabalin (Lyrica Cap(*)) 50 mg PO BEDTIME [facility] Last Admin: 10/13/18 20:49 Dose: 50 mg Senna (Senokot Tab*) 1 tab PO DAILY PRN PRN Reason: CONSTIPATION Vitamin B Complex/Vitamin E (B Complex-50*) 1 tab PO DAILY [facility] Last Admin: 10/14/18 10:19 Dose: 1 tab Vital Signs - 8 hr 10/14/18 10/14/18 10/14/18 05:20 07:23 07:50 Temperature Pulse Rate 88 Respiratory 20 20 20 Rate Blood Pressure (mmHg) O2 Sat by Pulse 99 Oximetry 10/14/18 10/14/18 08:14 10:20 Temperature 98.1 F Pulse Rate 89 Respiratory 20 15 Rate Blood Pressure 119/70 (mmHg) O2 Sat by Pulse 100 Oximetry Oxygen Devices in Use Now: OxyMask Appearance: 78 yo f in nAD, aAOx3 Eyes: No Scleral Icterus, PERRLA Ears/Nose/Mouth/Throat: NL Teeth, Lips, Gums, Mucous Membranes Moist Neck: NL Appearance and Movements; NL JVP, Trachea Midline Respiratory: Symmetrical Chest Expansion and Respiratory Effort, - - decreased breath sounds b/l , no wheezes, rales on left lung Cardiovascular: NL Sounds; No Murmurs; No JVD, RRR Abdominal: NL Sounds; No Tenderness; No Distention Lymphatic: No Cervical Adenopathy Extremities: No Clubbing, Cyanosis, - - trace pedal edema b/l Skin: No Nodules or Sclerosis, - - R foot-plantar aspect at the base of r great toe-a sinus like wound at 1 cm in diam with clear edges draining scant serous fluid Neurological: Alert and Oriented x 3, NL Muscle Strength and Tone Result Diagrams: 10/13/18 07:03 10/13/18 07:03 Microbiology and Other Data: Microbiology 10/12/18 12:57 Aerobic Blood Culture - Preliminary Blood Venous No Growth Day 1 Anaerobic Blood Culture - Preliminary No Growth Day 1 10/12/18 12:56 Aerobic Blood Culture - Preliminary Blood Venous No Growth Day 1 Anaerobic Blood Culture - Preliminary No Growth Day 1 Assess/Plan/Problems-Billing Assessment: 78W with COPD on 4L home O2, HFrEF 40-45%, AAA, colon cancer s/p resection/chemo, presents with subacute progressive dyspnea, productive cough, and LE edema. - Patient Problems (1) Diastolic CHF, acute on chronic Comment: - Vascular congestion noted on cxray, -cont IV Lasix, will add on another dose today - Echo 06/15/17 with intact EF but evidence of diastolic dysfuction and bi-atrial enlargement with possible underestimation of pulmonary hypertension. (2) Acute and chronic respiratory failure with hypoxia Comment: - Resolving - Likely a combination of CHF exacerbation and possibly COPD exacerbation - Patient uses 4L oxygen at home - cont prednisone - Continue home inhalers -cont daily Lasix IV (3) COPD exacerbation Comment: - Continue steroid taper/Azithro (4) Abdominal aortic aneurysm (AAA) 30 to 34 mm in diameter Comment: - [place] 07/22/18 Reveals 2.8 cm - Continue outpatient surveillance (5) Aortic stenosis Comment: - Recent echo 06/21/18 EF 45% and shows moderate to severe SHADIA 0.88 cm 2 - Recommend continued close follow up with Dr. Shultz (6) Elevated troponin Comment: - Asymptomatic - Trops peaked at 0.05-chron ic - Suspect demand ischemia d/t acute COPD exacerbation (7) Chronic foot ulcer Comment: - Appears chronic, cont medihoney. Pt follows with podiatry at home (8) DVT prophylaxis Comment: - SQH Status and Disposition: inpatient
[2018-10-14] MEDS: Azithromycin 500 mg/250 ml NS 500 MG/250 ML BAG IVPB SCH (16:48)
[2018-10-14] MEDS: Albuterol HFA INHALER* 8 gm MDI INH PRN (19:45)
[2018-10-14] MEDS: Pregabalin CAP(*) 50 MG PO SCH (21:46)
[2018-10-14] MEDS: Atorvastatin* 10 MG TAB PO SCH (21:46)
[2018-10-14] MEDS: Docusate CAP* 100 MG PO SCH (21:46)
[2018-10-15] MEDS: Heparin VIAL(*) 5000 UNITS/ML VIAL (FIVE THOUSAND) SUBCUT SCH ×3 (05:50→21:52)
[2018-10-15 05:59] LABS: BUN/Creatinine Ratio 30.5 (8-20); Calcium 8.7 mg/dL (8.6-10.3); EGFR African American 61.3 (>60); EGFR Non-African American 50.7 (>60); Potassium 4.1 mmol/L (3.5-5.0)
[2018-10-15] MEDS: Albuterol/Ipratropium NEB.SOL* Albuterol 2.5 MG/Ipratropium 0.5 MG 3 ML INH PRN ×2 (07:37→23:35)
[2018-10-15] MEDS: Mometasone/Formoter 200/5 MDI INH SCH ×2 (07:37→19:26)
[2018-10-15] MEDS: Losartan TAB* 25 MG PO SCH (09:19)
[2018-10-15] MEDS: Furosemide IV* 10 MG/ML VIAL (40 MG) IV SCH (09:19)
[2018-10-15] MEDS: Cholecalciferol TAB* 1000 UNITS PO SCH (09:19)
[2018-10-15] MEDS: Pregabalin CAP(*) 25 MG PO SCH (09:20)
[2018-10-15] MEDS: predniSONE TAB* 20 MG PO SCH (09:20)
[2018-10-15] MEDS: Montelukast Sodium TAB* 10 MG PO SCH (09:21)
[2018-10-15] MEDS: Multivitamins/Minerals TAB PO SCH (09:21)
[2018-10-15] MEDS: Vitamin B Complex TAB PO SCH (09:21)
[2018-10-15] MEDS: Ascorbic Acid TAB* 500 MG PO SCH (09:21)
[2018-10-15] MEDS: Aspirin EC TAB* 81 MG TAB.EC PO SCH (09:21)
[2018-10-15] MEDS: Cetirizine* 10 MG TAB PO SCH (09:21)
[2018-10-15] MEDS: VITAMIN E 100 UNIT PO SCH (09:22)
[2018-10-15] MEDS ORDERED: Furosemide IV* 10 MG/ML VIAL (40 MG) IV ONE (12:30)
--- NOTE | 2018-10-15 12:41 | PN ---
Subjective Date of Service: 10/15/18 Interval History: Pt 's SOB is slowly improving, still not back to baseline Objective Active Medications: Acetaminophen (Tylenol Tab*) 650 mg PO Q4H PRN PRN Reason: FEVER/PAIN Albuterol (Ventolin Hfa Inhaler*) 2 puff INH QID PRN PRN Reason: COUGH Last Admin: 10/14/18 19:45 Dose: 2 puff Albuterol/Ipratropium (Duoneb (Albuterol 2.5 Mg/Ipratropium 0.5 Mg)) 1 neb INH QID PRN PRN Reason: SHORTNESS OF BREATH Last Admin: 10/15/18 07:37 Dose: 1 neb Ascorbic Acid (Vitamin C Tab*) 1,000 mg PO DAILY [facility] Last Admin: 10/15/18 09:21 Dose: 1,000 mg Aspirin (Aspirin Ec Tab*) 81 mg PO DAILY [facility] Last Admin: 10/15/18 09:21 Dose: 81 mg Atorvastatin Calcium (Lipitor*) 10 mg PO BEDTIME [facility] Last Admin: 10/14/18 21:46 Dose: 10 mg Cetirizine HCl (Zyrtec*) 10 mg PO DAILY [facility] Last Admin: 10/15/18 09:21 Dose: 10 mg Cholecalciferol (Vitamin D Tab*) 2,000 units PO DAILY [facility] Last Admin: 10/15/18 09:19 Dose: 2,000 units Docusate Sodium (Colace Cap*) 100 mg PO 2100 [facility] Last Admin: 10/14/18 21:46 Dose: 100 mg Furosemide (Lasix Iv*) 40 mg IV DAILY [facility] Last Admin: 10/15/18 09:19 Dose: 40 mg Furosemide (Lasix Iv*) 40 mg IV ONCE ONE Stop: 10/15/18 12:31 Guaifenesin (Mucinex*) 600 mg PO BID PRN PRN Reason: COUGH Last Admin: 10/13/18 20:55 Dose: 600 mg Heparin Sodium (Porcine) (Heparin Vial(*)) 5,000 units SUBCUT Q8HR [facility] Last Admin: 10/15/18 05:50 Dose: 5,000 units Azithromycin (Zithromax 500 Mg/250 Ml) 500 mg in 250 mls @ 250 mls/hr IVPB Q24H [facility] Last Admin: 10/14/18 16:48 Dose: 250 mls/hr Lorazepam (Ativan Tab(*)) 0.5 mg PO Q6H PRN PRN Reason: ANXIETY Last Admin: 10/14/18 21:52 Dose: 0.5 mg Losartan Potassium (Cozaar Tab*) 50 mg PO DAILY [facility] Last Admin: 10/15/18 09:19 Dose: 50 mg Mometasone Furoate/Formoterol Fumar (Dulera 200/5 Mdi*) 2 puff INH BID [facility]; Protocol Last Admin: 10/15/18 07:37 Dose: 2 puff Montelukast Sodium (Singulair Tab*) 10 mg PO DAILY [facility] Last Admin: 10/15/18 09:21 Dose: 10 mg Multivitamins/Minerals (Theragran/Minerals Tab*) 1 tab PO DAILY [facility] Last Admin: 10/15/18 09:21 Dose: 1 tab Non-Formulary Medication *Vitamin E 100 Units* 1 dose PO DAILY [facility] Last Admin: 10/15/18 09:22 Dose: Not Given Prednisone (Deltasone Tab*) 40 mg PO DAILY [facility] Last Admin: 10/15/18 09:20 Dose: 40 mg Pregabalin (Lyrica Cap(*)) 25 mg PO DAILY [facility] Last Admin: 10/15/18 09:20 Dose: 25 mg Pregabalin (Lyrica Cap(*)) 50 mg PO BEDTIME [facility] Last Admin: 10/14/18 21:46 Dose: 50 mg Senna (Senokot Tab*) 1 tab PO DAILY PRN PRN Reason: CONSTIPATION Vitamin B Complex/Vitamin E (B Complex-50*) 1 tab PO DAILY [facility] Last Admin: 10/15/18 09:21 Dose: 1 tab Vital Signs - 8 hr 10/15/18 10/15/18 10/15/18 07:45 08:00 08:54 Temperature 97.1 F Pulse Rate 88 88 Respiratory 20 20 20 Rate Blood Pressure 131/84 (mmHg) O2 Sat by Pulse 96 100 Oximetry 10/15/18 09:20 Temperature Pulse Rate Respiratory 20 Rate Blood Pressure (mmHg) O2 Sat by Pulse Oximetry Oxygen Devices in Use Now: Nasal Cannula Appearance: 78 yo F in nAD, AAOx3 Eyes: No Scleral Icterus, PERRLA Ears/Nose/Mouth/Throat: NL Teeth, Lips, Gums, Mucous Membranes Moist Neck: NL Appearance and Movements; NL JVP Respiratory: Symmetrical Chest Expansion and Respiratory Effort, - - crackles at b/l bases, no wheezes Cardiovascular: NL Sounds; No Murmurs; No JVD Abdominal: NL Sounds; No Tenderness; No Distention Lymphatic: No Cervical Adenopathy Extremities: No Clubbing, Cyanosis, - - nonpitting pedal edema b/l Skin: No Nodules or Sclerosis, - - R base of great toe ulcer-unchanged Neurological: Alert and Oriented x 3, NL Muscle Strength and Tone Result Diagrams: 10/13/18 07:03 10/15/18 05:15 Microbiology and Other Data: Microbiology 10/12/18 12:57 Aerobic Blood Culture - Preliminary Blood Venous No Growth Day 1 Anaerobic Blood Culture - Preliminary No Growth Day 1 10/12/18 12:56 Aerobic Blood Culture - Preliminary Blood Venous No Growth Day 1 Anaerobic Blood Culture - Preliminary No Growth Day 1 Assess/Plan/Problems-Billing Assessment: 78W with COPD on 4L home O2, HFrEF 40-45%, AAA, colon cancer s/p resection/chemo, presents with subacute progressive dyspnea, productive cough, and LE edema. - Patient Problems (1) Diastolic CHF, acute on chronic Comment: - Vascular congestion noted on cxray, -cont IV Lasix, will add on another dose today in PM -will add metolaxone to tomorrow's dose of Lasix PO 60 mg - Echo 06/15/17 with intact EF but evidence of diastolic dysfuction and bi-atrial enlargement with possible underestimation of pulmonary hypertension. (2) Acute and chronic respiratory failure with hypoxia Comment: - Resolving - Likely a combination of CHF exacerbation and possibly COPD exacerbation - Patient uses 4L oxygen at home - cont prednisone - Continue home inhalers -cont daily Lasix IV (3) COPD exacerbation Comment: - Continue steroid taper/Azithro (4) Abdominal aortic aneurysm (AAA) 30 to 34 mm in diameter Comment: - [place] 07/22/18 Reveals 2.8 cm - Continue outpatient surveillance (5) Aortic stenosis Comment: - Recent echo 06/21/18 EF 45% and shows moderate to severe SHADIA 0.88 cm 2 - Recommend continued close follow up with Dr. Shultz (6) Elevated troponin Comment: - Asymptomatic - Trops peaked at 0.05-chronic - Suspect demand ischemia d/t acute COPD exacerbation (7) Chronic foot ulcer Comment: - Appears chronic, cont medihoney. Pt follows with podiatry at home (8) DVT prophylaxis Comment: - SQH Status and Disposition: inpatient
--- NOTE | 2018-10-15 18:13 | CONSULT ---
Subjective Date of Service: 10/15/18 Interval History: Ms. Do is a 78 yo female with PMH significant for colon cancer, D CHF, chronic hypoxic respiratory failure, COPD, asthma, anxiety, CLARK, CAD, moderate to severe ; who presented to the emergency room with complaints of shortness of breath. She was admitted for acute on chronic CHF exacerbation. Reports a wound on bottom of her foot at the right 1st toe, that has been present since April (about 6 months). She was first seen by the wound clinic and then sent to orthopedics. [facility] Orthopedics doesn't recommend surgery and suggested an AFO. Patient seen and examined at bedside. Family History: Unchanged from Admission Social History: Unchanged from Admission Past Medical History: Unchanged from Admission Review of Systems - Measurements Intake and Output: Intake and Output Last 24 Hours 10/13/18 10/14/18 10/15/18 10/16/18 06:59 06:59 06:59 06:59 Intake Total 400 1800 1820 600 Output Total 1300 1375 2100 800 Balance -900 425 -280 -200 Weight 206 lb 12.8 oz 201 lb 9.6 oz Intake: IV Fluids 280 280 azithromycin 270 270 ns flush 10 10 Oral 120 1520 1820 600 Output: Urine 1300 1375 2100 800 Other: Estimated Void Medium # Bowel Movements 1 1 Estimated Stool Amount Small Medium # Voids 1 3 3 - Review of Systems Constitutional Symptoms: Negative: Fever, Other - Chills Dermatology: Positive: Other - Chronic wound to the right 1st toe Objective Active Medications: Acetaminophen (Tylenol Tab*) 650 mg PO Q4H PRN Reason: FEVER/PAIN Albuterol (Ventolin Hfa Inhaler*) 2 puff INH QID PRN Reason: COUGH Albuterol/Ipratropium (Duoneb (Albuterol 2.5 Mg/Ipratropium 0.5 Mg)) 1 neb INH QID PRN Reason: SHORTNESS OF BREATH Ascorbic Acid (Vitamin C Tab*) 1,000 mg PO DAILY [facility] Aspirin (Aspirin Ec Tab*) 81 mg PO DAILY [facility] Atorvastatin Calcium (Lipitor*) 10 mg PO BEDTIME [facility] Azithromycin (Zithromax Tab*) 250 mg PO DAILY [facility] Stop: 10/16/18 23:59 Cetirizine HCl (Zyrtec*) 10 mg PO DAILY [facility] Cholecalciferol (Vitamin D Tab*) 2,000 units PO DAILY [facility] Docusate Sodium (Colace Cap*) 100 mg PO 2100 [facility] Furosemide (Lasix Tab*) 60 mg PO DAILY [facility] Guaifenesin (Mucinex*) 600 mg PO BID PRN Reason: COUGH Heparin Sodium (Porcine) (Heparin Vial(*)) 5,000 units SUBCUT Q8HR [facility] Lorazepam (Ativan Tab(*)) 0.5 mg PO Q6H PRN Reason: ANXIETY Losartan Potassium (Cozaar Tab*) 50 mg PO DAILY [facility] Metolazone (Zaroxolyn Tab*) 5 mg PO DAILY@0830 [facility] Mometasone Furoate/Formoterol Fumar (Dulera 200/5 Mdi*) 2 puff INH BID [facility]; Protocol Montelukast Sodium (Singulair Tab*) 10 mg PO DAILY [facility] Multivitamins/Minerals (Theragran/Minerals Tab*) 1 tab PO DAILY [facility] Non-Formulary Medication *Vitamin E 100 Units* 1 dose PO DAILY [facility] Prednisone (Deltasone Tab*) 40 mg PO DAILY [facility] Pregabalin (Lyrica Cap(*)) 25 mg PO DAILY [facility] Pregabalin (Lyrica Cap(*)) 50 mg PO BEDTIME [facility] Senna (Senokot Tab*) 1 tab PO DAILY PRN Reason: CONSTIPATION Vitamin B Complex/Vitamin E (B Complex-50*) 1 tab PO DAILY [facility] Vital Signs - 8 hr 10/15/18 10/15/18 12:57 15:44 Temperature 98.4 F Pulse Rate 95 Respiratory 20 18 Rate Blood Pressure 123/58 (mmHg) O2 Sat by Pulse 92 Oximetry Oxygen Devices in Use Now: Nasal Cannula Appearance: NAD, sitting up in a chair Ears/Nose/Mouth/Throat: Mucous Membranes Moist Respiratory: Symmetrical Chest Expansion and Respiratory Effort Skin: - - See skin note below Neurological: Alert and Oriented x 3 Nutrition: Taking PO's Result Diagrams: 10/13/18 07:03 10/16/18 06:43 Additional Lab and Data: Above labs were pulled into the chart when note was edited prior to signing, see labs from day of consult below Laboratory Tests 10/12/18 10/13/18 10/15/18 12:57 07:03 05:15 WBC 4.2 Hgb 10.9 L Hct 32 L Plt Count 237 Sodium 138 Potassium 4.1 Chloride 98 L Carbon Dioxide 38 H BUN 32 H Creatinine 1.05 H Glucose 93 C-Reactive Protein 19.83 H Total Protein 6.1 L Albumin 3.5 Microbiology and Other Data: Microbiology 10/12/18 12:57 Aerobic Blood Culture - Preliminary Blood Venous No Growth Day 1 Anaerobic Blood Culture - Preliminary No Growth Day 1 10/12/18 12:56 Aerobic Blood Culture - Preliminary Blood Venous No Growth Day 1 Anaerobic Blood Culture - Preliminary No Growth Day 1 Diagnostic Imaging: Exam Date: 09/20/18 1440 MRI LOWER EXTREMITY RIGHT W/O IMPRESSION: #. Superficial soft tissue ulcer medial plantar aspect of the forefoot without findings to indicate osteomyelitis. #. No loculated soft tissue plane abscess collection evident. #. Nonspecific first metatarsal phalangeal joint effusion. Skin Deviation Note - Skin Deviation Findings Right foot plantar aspect - There is a wound measuring 0.7 cm x 0.5 cm x 0.4 cm. The wound is surrounded by a callous and the skin is intact. There is no drainage from the wound. The wound base is pink granulation tissue. Assessment/Plan: Ms. Do is a 78 yo female with PMH significant for colon cancer, D CHF, chronic hypoxic respiratory failure, COPD, asthma, anxiety, CLARK, CAD, moderate to severe ; who presented to the emergency room with complaints of shortness of breath. She was admitted for acute on chronic CHF exacerbation. She presented to the hospital with a chronic wound to the plantar aspect of the right foot near the base of the 1st toe. 1. Chronic right foot wound. Suspect this may be secondary to pressure from the 1st metatarsal head. Recommend continuing Medihoney dressing, followed by a dry dressing (gauze and rolled gauze) and change every other day. 2. Diet. Heart Healthy diet. 3. Code Status. Full Code. 4. Disposition. Inpatient, disposition per primary medicine team. TIME SPENT: Time for this wound consultation was 20 minutes and 10 minutes was spent with the patient discussing past medical history; removing the old dressing; assessing, measuring, and photographing the wound. Wound Problem/Plan Is Patient a Wound Clinic Patient: Yes - [facility] - Dr. Buckner Current Treatment: Medihoney, dry gauze, rolled gauze and change every other day. Attending: Linda Burciaga
[2018-10-15] MEDS: Albuterol HFA INHALER* 8 gm MDI INH PRN (19:26)
[2018-10-15] MEDS: Atorvastatin* 10 MG TAB PO SCH (21:50)
[2018-10-15] MEDS: LORazepam TAB(*) 0.5 MG PO PRN (21:50)
[2018-10-15] MEDS: guaiFENesin ER TAB 600 MG PO PRN (21:50)
[2018-10-15] MEDS: Docusate CAP* 100 MG PO SCH (21:50)
[2018-10-15] MEDS: Pregabalin CAP(*) 50 MG PO SCH (21:51)
[2018-10-16] MEDS: Heparin VIAL(*) 5000 UNITS/ML VIAL (FIVE THOUSAND) SUBCUT SCH ×3 (05:33→21:22)
[2018-10-16 07:17] LABS: BUN/Creatinine Ratio 36.4 (8-20); Calcium 8.8 mg/dL (8.6-10.3); EGFR African American 75.2 (>60); EGFR Non-African American 62.1 (>60); Potassium 3.9 mmol/L (3.5-5.0)
[2018-10-16] MEDS: Mometasone/Formoter 200/5 MDI INH SCH ×2 (07:33→19:29)
[2018-10-16] MEDS: Albuterol/Ipratropium NEB.SOL* Albuterol 2.5 MG/Ipratropium 0.5 MG 3 ML INH PRN ×2 (07:33→19:29)
[2018-10-16] MEDS ORDERED: Azithromycin TAB* 250 MG PO SCH (09:00)
[2018-10-16] MEDS: Furosemide TAB* 20 MG PO SCH (09:02)
[2018-10-16] MEDS: Vitamin B Complex TAB PO SCH (09:02)
[2018-10-16] MEDS: Montelukast Sodium TAB* 10 MG PO SCH (09:02)
[2018-10-16] MEDS: predniSONE TAB* 20 MG PO SCH (09:03)
[2018-10-16] MEDS: Aspirin EC TAB* 81 MG TAB.EC PO SCH (09:03)
[2018-10-16] MEDS: Ascorbic Acid TAB* 500 MG PO SCH (09:04)
[2018-10-16] MEDS: Cholecalciferol TAB* 1000 UNITS PO SCH (09:05)
[2018-10-16] MEDS: Pregabalin CAP(*) 25 MG PO SCH (09:05)
[2018-10-16] MEDS: Cetirizine* 10 MG TAB PO SCH (09:05)
[2018-10-16] MEDS: Multivitamins/Minerals TAB PO SCH (09:05)
[2018-10-16] MEDS: Metolazone TAB* 5 MG PO SCH (09:06)
[2018-10-16] MEDS: Losartan TAB* 25 MG PO SCH (09:06)
[2018-10-16] MEDS: VITAMIN E 100 UNIT PO SCH (09:06)
--- NOTE | 2018-10-16 15:58 | PN ---
Subjective Date of Service: 10/16/18 Interval History: pt feels "much better", appetite is good, SOB resolving Family History: Unchanged from Admission Social History: Unchanged from Admission Past Medical History: Unchanged from Admission Objective Active Medications: Acetaminophen (Tylenol Tab*) 650 mg PO Q4H PRN PRN Reason: FEVER/PAIN Albuterol (Ventolin Hfa Inhaler*) 2 puff INH QID PRN PRN Reason: COUGH Last Admin: 10/15/18 19:26 Dose: 2 puff Albuterol/Ipratropium (Duoneb (Albuterol 2.5 Mg/Ipratropium 0.5 Mg)) 1 neb INH QID PRN PRN Reason: SHORTNESS OF BREATH Last Admin: 10/16/18 07:33 Dose: 1 neb Ascorbic Acid (Vitamin C Tab*) 1,000 mg PO DAILY [facility] Last Admin: 10/16/18 09:04 Dose: 1,000 mg Aspirin (Aspirin Ec Tab*) 81 mg PO DAILY [facility] Last Admin: 10/16/18 09:03 Dose: 81 mg Atorvastatin Calcium (Lipitor*) 10 mg PO BEDTIME [facility] Last Admin: 10/15/18 21:50 Dose: 10 mg Azithromycin (Zithromax Tab*) 250 mg PO DAILY [facility] Stop: 10/16/18 23:59 Last Admin: 10/16/18 09:04 Dose: 250 mg Cetirizine HCl (Zyrtec*) 10 mg PO DAILY [facility] Last Admin: 10/16/18 09:05 Dose: 10 mg Cholecalciferol (Vitamin D Tab*) 2,000 units PO DAILY [facility] Last Admin: 10/16/18 09:05 Dose: 2,000 units Docusate Sodium (Colace Cap*) 100 mg PO 2100 [facility] Last Admin: 10/15/18 21:50 Dose: 100 mg Furosemide (Lasix Tab*) 60 mg PO DAILY [facility] Last Admin: 10/16/18 09:02 Dose: 60 mg Guaifenesin (Mucinex*) 600 mg PO BID PRN PRN Reason: COUGH Last Admin: 10/15/18 21:50 Dose: 600 mg Heparin Sodium (Porcine) (Heparin Vial(*)) 5,000 units SUBCUT Q8HR [facility] Last Admin: 10/16/18 14:59 Dose: 5,000 units Lorazepam (Ativan Tab(*)) 0.5 mg PO Q6H PRN PRN Reason: ANXIETY Last Admin: 10/15/18 21:50 Dose: 0.5 mg Losartan Potassium (Cozaar Tab*) 50 mg PO DAILY [facility] Last Admin: 10/16/18 09:06 Dose: 50 mg Metolazone (Zaroxolyn Tab*) 5 mg PO DAILY@0830 [facility] Last Admin: 10/16/18 09:06 Dose: 5 mg Mometasone Furoate/Formoterol Fumar (Dulera 200/5 Mdi*) 2 puff INH BID [facility]; Protocol Last Admin: 10/16/18 07:33 Dose: 2 puff Montelukast Sodium (Singulair Tab*) 10 mg PO DAILY [facility] Last Admin: 10/16/18 09:02 Dose: 10 mg Multivitamins/Minerals (Theragran/Minerals Tab*) 1 tab PO DAILY [facility] Last Admin: 10/16/18 09:05 Dose: 1 tab Non-Formulary Medication *Vitamin E 100 Units* 1 dose PO DAILY [facility] Last Admin: 10/16/18 09:06 Dose: Not Given Prednisone (Deltasone Tab*) 40 mg PO DAILY [facility] Last Admin: 10/16/18 09:03 Dose: 40 mg Pregabalin (Lyrica Cap(*)) 25 mg PO DAILY [facility] Last Admin: 10/16/18 09:05 Dose: 25 mg Pregabalin (Lyrica Cap(*)) 50 mg PO BEDTIME [facility] Last Admin: 10/15/18 21:51 Dose: 50 mg Senna (Senokot Tab*) 1 tab PO DAILY PRN PRN Reason: CONSTIPATION Vitamin B Complex/Vitamin E (B Complex-50*) 1 tab PO DAILY [facility] Last Admin: 10/16/18 09:02 Dose: 1 tab Vital Signs - 8 hr 10/16/18 10/16/18 10/16/18 08:00 08:25 09:05 Temperature Pulse Rate 85 Respiratory 16 16 20 Rate Blood Pressure 113/71 (mmHg) O2 Sat by Pulse 100 Oximetry 10/16/18 10/16/18 10/16/18 12:05 12:09 15:42 Temperature 98.0 F 98.3 F Pulse Rate 83 88 Respiratory 18 16 16 Rate Blood Pressure 113/63 112/64 (mmHg) O2 Sat by Pulse 100 97 Oximetry Oxygen Devices in Use Now: Nasal Cannula Appearance: 78 yo f in nAD, aAOx3 Eyes: No Scleral Icterus, PERRLA Ears/Nose/Mouth/Throat: NL Teeth, Lips, Gums, Mucous Membranes Moist Neck: NL Appearance and Movements; NL JVP, Trachea Midline Respiratory: Symmetrical Chest Expansion and Respiratory Effort, - - scant bibasiliar crackles Cardiovascular: NL Sounds; No Murmurs; No JVD, RRR Abdominal: NL Sounds; No Tenderness; No Distention Lymphatic: No Cervical Adenopathy Extremities: No Clubbing, Cyanosis, - - +1 pitting pedal edema b/l Skin: - - venous staisis changes distal LE's, < R bottome of foot chronic wound with no skin infection noted Neurological: Alert and Oriented x 3, NL Muscle Strength and Tone Result Diagrams: 10/13/18 07:03 10/16/18 06:43 Additional Lab and Data: Laboratory Tests 10/12/18 10/13/18 10/15/18 12:57 07:03 05:15 WBC 4.2 Hgb 10.9 L Hct 32 L Plt Count 237 Sodium 138 Potassium 4.1 Chloride 98 L Carbon Dioxide 38 H BUN 32 H Creatinine 1.05 H Glucose 93 C-Reactive Protein 19.83 H Total Protein 6.1 L Albumin 3.5 Microbiology and Other Data: Microbiology 10/12/18 12:57 Aerobic Blood Culture - Preliminary Blood Venous No Growth Day 1 Anaerobic Blood Culture - Preliminary No Growth Day 1 10/12/18 12:56 Aerobic Blood Culture - Preliminary Blood Venous No Growth Day 1 Anaerobic Blood Culture - Preliminary No Growth Day 1 Diagnostic Imaging: Exam Date: 09/20/18 1440 MRI LOWER EXTREMITY RIGHT W/O IMPRESSION: #. Superficial soft tissue ulcer medial plantar aspect of the forefoot without findings to indicate osteomyelitis. #. No loculated soft tissue plane abscess collection evident. #. Nonspecific first metatarsal phalangeal joint effusion. Assess/Plan/Problems-Billing Assessment: 78W with COPD on 4L home O2, HFrEF 40-45%, AAA, colon cancer s/p resection/chemo, presents with subacute progressive dyspnea, productive cough, and LE edema. - Patient Problems (1) Diastolic CHF, acute on chronic Comment: - Vascular congestion noted on cxray, -added metolaxone to home of Lasix PO 60 mg, doing well - Echo 3/2/18 with intact EF but evidence of diastolic dysfuction and bi-atrial enlargement with possible underestimation of pulmonary hypertension. (2) Acute and chronic respiratory failure with hypoxia Comment: - Resolving - Likely a combination of CHF exacerbation and possibly COPD exacerbation - Patient uses 4L oxygen at home - cont prednisone - Continue home inhalers (3) COPD exacerbation Comment: - Continue steroid taper/Azithro (last does today) (4) Abdominal aortic aneurysm (AAA) 30 to 34 mm in diameter Comment: - US 07/22/18 Reveals 2.8 cm - Continue outpatient surveillance (5) Aortic stenosis Comment: - Recent echo 06/21/18 EF 45% and shows moderate to severe SHADIA 0.88 cm 2 - Recommend continued close follow up with Dr. Shultz (6) Elevated troponin Comment: - Asymptomatic - Trops peaked at 0.05-chronic - Suspect demand ischemia d/t acute COPD exacerbation (7) Chronic foot ulcer Comment: - Appears chronic, cont medihoney. Pt follows with podiatry at home (8) DVT prophylaxis Comment: - SQH Status and Disposition: inpatient
[2018-10-16] MEDS: Atorvastatin* 10 MG TAB PO SCH (21:23)
[2018-10-16] MEDS: Pregabalin CAP(*) 50 MG PO SCH (21:23)
[2018-10-16] MEDS: Docusate CAP* 100 MG PO SCH (21:23)
[2018-10-16] MEDS: LORazepam TAB(*) 0.5 MG PO PRN (21:30)
[2018-10-17 04:33] VITALS: BP 133/73
[2018-10-17] MEDS: Heparin VIAL(*) 5000 UNITS/ML VIAL (FIVE THOUSAND) SUBCUT SCH (05:53)
[2018-10-17] MEDS: guaiFENesin ER TAB 600 MG PO PRN (06:01)
[2018-10-17] MEDS: Albuterol/Ipratropium NEB.SOL* Albuterol 2.5 MG/Ipratropium 0.5 MG 3 ML INH PRN (07:25)
[2018-10-17] MEDS: Mometasone/Formoter 200/5 MDI INH SCH (07:26)
[2018-10-17] MEDS: Ascorbic Acid TAB* 500 MG PO SCH (09:28)
[2018-10-17] MEDS: Multivitamins/Minerals TAB PO SCH (09:28)
[2018-10-17] MEDS: Cholecalciferol TAB* 1000 UNITS PO SCH (09:29)
[2018-10-17] MEDS: Losartan TAB* 25 MG PO SCH (09:29)
[2018-10-17] MEDS: predniSONE TAB* 20 MG PO SCH (09:29)
[2018-10-17] MEDS: Pregabalin CAP(*) 25 MG PO SCH (09:30)
[2018-10-17] MEDS: Metolazone TAB* 5 MG PO SCH (09:30)
[2018-10-17] MEDS: Aspirin EC TAB* 81 MG TAB.EC PO SCH (09:31)
[2018-10-17] MEDS: Furosemide TAB* 20 MG PO SCH (09:31)
[2018-10-17] MEDS: Cetirizine* 10 MG TAB PO SCH (09:32)
[2018-10-17] MEDS: Montelukast Sodium TAB* 10 MG PO SCH (09:32)
--- NOTE | 2018-10-17 13:08 | DS ---
CC: Echo Rivero NP * DISCHARGE SUMMARY: DATE OF ADMISSION: 10/12/18 DATE OF DISCHARGE TO HOME: 10/17/18 PRIMARY CARE PROVIDER: Echo Rivero NP DISCHARGE DIAGNOSES: Acute hypoxemic respiratory failure on chronic hypoxemic respiratory failure due to chronic obstructive pulmonary disease exacerbation in combination with exacerbation of acute diastolic congestive heart failure. DISPOSITION AT DISCHARGE: To home. CONDITION AT DISCHARGE: Stable. SECONDARY DIAGNOSES: 1. History of colon cancer. 2. History of diastolic congestive heart failure. 3. History of chronic hypoxemic respiratory failure, requiring 4 L of oxygen at home. 4. Chronic obstructive pulmonary disease. 5. Asthma. 6. Anxiety. 7. Iron deficiency anemia. 8. Coronary artery disease. 9. History of qhpejfth-xk-wrdbce aortic stenosis. 10. Hypertension. 11. Hyperlipidemia. 12. Peripheral neuropathy. 13. Osteoporosis. 14. Status post partial colectomy in the past. MEDICATIONS AT DISCHARGE: New include: 1. Metolazone 2.5 mg daily 30 minutes prior to furosemide dose. 2. Prednisone taper 40 mg daily for 2 days, then 20 mg daily for 2 days, then 10 mg daily for 2 days, and then stop. Remaining medications are unchanged, include: 1. Albuterol inhaler on a p.r.n. basis. 2. DuoNeb nebulizer on a p.r.n. basis. 3. Vitamin C 1000 mg daily. 4. Aspirin 81 mg daily. 5. Symbicort 160/4.5 two inhalations b.i.d. 6. Calcium carbonate/vitamin D 1 tablet daily. 7. Zyrtec 10 mg daily. 8. Vitamin D 2000 units daily. 9. Prolia 60 mg subcutaneously as previously used. 10. Colace 100 mg daily. 11. Mucinex 600 mg b.i.d. p.r.n. 12. Motrin 400 mg every 6 hours p.r.n. 13. Avapro 150 mg daily. 14. Singulair 10 mg daily. 15. Multivitamin 1 tablet daily. 16. MiraLAX 17 g daily p.r.n. 17. Lyrica 25 mg daily and 50 mg at bedtime. 18. Senna 1 tablet daily p.r.n. 19. Zocor 20 mg at bedtime. 20. Vitamin B complex 1 capsule daily. 21. Vitamin E 100 units daily. 22. Furosemide 60 mg a daily. 23. Lorazepam on a p.r.n. basis. LABORATORY DATA AND STUDIES PERFORMED DURING HOSPITAL STAY: On 10/16/18, sodium of 138, potassium 3.9, chloride 97, carbon dioxide 38, BUN 32, creatinine 0.88. The patient's brain natriuretic peptide at admission was 1017. Troponin of 0.05. On 10/13/18, white blood cell count 4.2, hemoglobin of 12.9, hematocrit of 32, and platelets of 237. CONSULTATIONS: Consultations during the hospital stay included wound care consult in regards of chronic right foot wound. HOSPITALIZATION COURSE: Leigh Ann Coburn is a 78-year-old female who presented to the hospital frequently with COPD exacerbation in conjunction with CHF, who presents once again this time complaining of shortness of breath and was noted to have elevated brain natriuretic peptide and was diagnosed with acute diastolic CHF exacerbation together with COPD exacerbation. She was placed on prednisone and diuretics, and during the hospital stay, she diuresed well. By the time of discharge, she was back to her 4 L of oxygen nasal cannula. Her troponin is chronically elevated in the range of 0.04 and 0.05 and was 0.05 this hospital stay, likely due to demand ischemia while hypoxemic. The patient's chest x-ray on admission showed edema with vascular congestion. The patient has chronic wound on the bottom of her right foot at the base of her right great toe. Faustina Parrish from Wound Care saw patient in consultation and recommended continuation of Medihoney dressing that was done at home and they change every other day. The patient is to follow up with her orthotic assistant as she previously had done. Additionally, the patient was recommended to follow up with primary care provider in approximately 4 to 7 days. PHYSICAL EXAM AT THE TIME OF DISCHARGE: Blood pressure of 133/73, heart rate of 78 and regular, respiratory rate 18, oxygen saturation 98% on 4 L of oxygen nasal cannula, temperature 97.5. General: The patient is 78-year-old female who is in no acute distress, alert, awake, and oriented x3. HEENT: Head atraumatic and normocephalic. Eyes: Pupils are equal and reactive to light and accommodation. Oropharynx clear. Mucosa moist. Neck: Supple. No JVD. No bruits bilaterally. Cardiovascular: Regular rate and rhythm. No murmur. Respiratory: Crackles at bilateral bases, otherwise clear. Abdomen: Soft, nontender. Bowel sounds are present in all 4 quadrants. Extremities: There is +1 pitting pedal edema. Pulses are poorly palpable due to the edema, but there is no cyanosis and there is good capillary refill bilaterally. On the bottom of the right foot, at the right metatarsophalangeal joint, the patient has an area of chronic ulcer that has what appears to be a small sinus tract that is draining serous liquid and that had been unchanged during the hospital stay and unchanged from prior. That area is approximately 1 cm in diameter and 1 cm depth. There is no evidence of infection. On neuro evaluation, speech is clear. Cranial nerves II through XII grossly normal. Motor strength 5/5 bilaterally. Please note that this is a short summary of the patient's hospital stay. Please refer to further medical records for details. TIME SPENT: Approximately 40 minutes was spent on this patient's discharge. [id number]/CPS #: [id number] MTDD
== END 2018-10-17 10:45 | disposition home health service (06) | DRG 291 ==
LOC: ED 10:30 → MEDTELE 14:58
PROVIDERS: ADMIT Internal Medicine; ATTEND Internal Medicine
DX: I11.0 Hypertensive heart disease with heart failure (principal); J96.21 Acute and chronic respiratory failure with hypoxia; J44.1 Chronic obstructive pulmonary disease with (acute) exacerbation; I24.8 Other forms of acute ischemic heart disease; I50.33 Acute on chronic diastolic (congestive) heart failure; I71.4 Abdominal aortic aneurysm, without rupture; I25.10 Atherosclerotic heart disease of native coronary artery without angina pectoris; E78.5 Hyperlipidemia, unspecified; G62.9 Polyneuropathy, unspecified; Z96.642 Presence of left artificial hip joint; F41.0 Panic disorder [episodic paroxysmal anxiety]; M19.90 Unspecified osteoarthritis, unspecified site; M81.0 Age-related osteoporosis without current pathological fracture; M40.209 Unspecified kyphosis, site unspecified; I35.0 Nonrheumatic aortic (valve) stenosis; L97.529 Non-pressure chronic ulcer of other part of left foot with unspecified severity; D50.9 Iron deficiency anemia, unspecified; E78.00 Pure hypercholesterolemia, unspecified; Z85.038 Personal history of other malignant neoplasm of large intestine; Z92.21 Personal history of antineoplastic chemotherapy; Z91.041 Radiographic dye allergy status; Z88.5 Allergy status to narcotic agent; Z88.0 Allergy status to penicillin; Z88.8 Allergy status to other drugs, medicaments and biological substances; Z91.018 Allergy to other foods; Z98.42 Cataract extraction status, left eye; Z98.41 Cataract extraction status, right eye; Z82.49 Family history of ischemic heart disease and other diseases of the circulatory system; Z82.5 Family history of asthma and other chronic lower respiratory diseases; Z87.891 Personal history of nicotine dependence; Z90.49 Acquired absence of other specified parts of digestive tract; Z79.82 Long term (current) use of aspirin
CPT/HCPCS: 36415; 71045; 80048; 80053; 83605; 83880; 84484; 85025; 86140; 87040; 93005; 94640; 99285; A9270-GY; J0456; J1644; J1940; J2930; J7512

== ENCOUNTER 2018-12-27 17:40 | Inpatient (IN) | payer MEDICARE, BC ==
--- NOTE | 2018-12-27 18:09 | ED ---
Shortness of Breath - HPI Summary HPI Summary: 78 year old F brought in by EMS to [facility] from home complains of shortness of breath since yesterday. Patient reports cough, rib pain, swelling in the bilateral lower extremities. The patient rates the pain 10/10 in severity. Symptoms aggravated by nothing. Symptoms alleviated by symbicort and nebulizer. Patient states she took her dose of symbicort in the morning and nebulizer twice , last time being 14:30 today. Patient states EMS did not give her any breathing treatments. Patient states she has hx COPD and hx bronchitis. Patient states she uses 4L O2 nasal cannula at home. Patient states her home connect lpn increased her O2 to 6L today. Patient states she called her primary care provider today and told her primary care provider that she had gained weight after which primary care provider told patient to go to the ED. - History of Current Complaint Chief Complaint: EDShortnessOfBreath Time Seen by Provider: 12/27/18 17:51 Hx Obtained From: Patient Onset/Duration: Lasting Days - 1, Still Present Timing: Constant Current Severity: Severe Aggravating Factors: Nothing Alleviating Factors: Other - symbicort, nebulizer - Allergy/Home Medications Allergies/Adverse Reactions: Allergies Allergy/AdvReac Type Severity Reaction Status Date / Time Adhesive Tape Allergy REDDENED Verified 12/27/18 17:50 SKIN codeine Allergy Hives Verified 12/27/18 17:50 iodine Allergy Rash Verified 12/27/18 17:50 Penicillins Allergy Hives Verified 12/27/18 17:50 pineapple AdvReac MOUTH SORE Verified 12/27/18 17:50 tiotropium AdvReac HOARSENESS, Verified 12/27/18 17:50 [From Spiriva with TICKLE IN HandiHaler] THROAT raisins AdvReac GI Upset Uncoded 10/14/18 12:52 Home Medications: Home Medications Cetirizine* [ZyrTEC 10 MG TAB*] 10 mg PO DAILY 12/27/18 [History Confirmed 12/27] Oxybutynin XL TAB* [Ditropan XL TAB*] 10 mg PO DAILY 12/27/18 [History Confirmed 12/27/18] guaiFENesin ER TAB [Mucinex*] 600 mg PO BID PRN 12/27/18 [History Confirmed ] PMH/Surg Hx/FS Hx/Imm Hx Endocrine/Hematology History: Reports: Hx Anticoagulant Therapy - baby aspirin, Hx Anemia - iron deficient Denies: Hx Diabetes, Hx Thyroid Disease Cardiovascular History: Reports: Hx Aneurysm - AAA diagnosed 05/28/17, Hx Congestive Heart Failure - LACIX, Hx Hypercholesterolemia, Hx Hypertension, Other Cardiovascular Problems/Disorders - HX OF LUNG SURG 2004 RIGHT SIDE. Denies: Hx Pacemaker/ICD Respiratory History: Reports: Hx Asthma, Hx Chronic Obstructive Pulmonary Disease (COPD), Hx Pneumonia, Hx Seasonal Allergies Denies: Hx Lung Cancer, Hx Sleep Apnea GI History: Reports: Other GI Disorders - Colon CA, Denies: Hx Gall Bladder Disease, Hx Gastroesophageal Reflux Disease, Hx Ulcer History: Reports: Other Problems/Disorders - Bladder smaller from colon resect Denies: Hx Dialysis, Hx Renal Disease Musculoskeletal History: Reports: Hx Arthritis, Hx Back Problems, Hx Orthopedic Injury, Hx Osteoporosis, Hx Tendonitis, Other Musculoskeletal History - kyphosis Denies: Hx Bursitis, Hx Scoliosis Sensory History: Reports: Hx Cataracts, Hx Contacts or Glasses Denies: Hx Glaucoma, Hx Hearing Aid, Hx Hearing Problem, Other Sensory Impairments Opthamlomology History: Reports: Hx Cataracts, Hx Contacts or Glasses Denies: Hx Glaucoma, Other Sensory Impairments Neurological History: Reports: Hx Migraine - childhood migraines resolved at 22 years old Denies: Hx Headaches, Hx Nerve Disease, Other Neuro Impairments/Disorders Psychiatric History: Reports: Hx Panic Disorder, Other Psychiatric Issues/ Disorders - claustrophobia - Cancer History Cancer Type, Location and Year: Colon CA Hx Chemotherapy: Yes Hx Radiation Therapy: No - Surgical History Surgery Procedure, Year, and Place: Empyema removal 1983,. Broken elbow left repair ORIF (plate) Apr 1999 and later hardware removal ;. Colon cancer dx 2007 , colon resection. Hernia repair 2009. Partial L Hip Replacement September 2012. BILATERAL CATARACTS. LEFT HIP REVISION 2013. HEART CATH 2018 Hx Anesthesia Reactions: Yes - pt relates needing oxygen 24/7 after a hip surgery - Immunization History Date of Tetanus Vaccine: utd Date of Influenza Vaccine: fall 2017 Infectious Disease History: Yes Infectious Disease History: Reports: Hx of Known/Suspected MRSA Denies: Hx Hepatitis, Hx Human Immunodeficiency Virus (HIV), History Other Infectious Disease, Traveled Outside the [place] in Last 30 Days - Family History Known Family History: Positive: Cardiac Disease, Respiratory Disease, Other - Aortic aneurysm Negative: Blood Disorder - Social History Alcohol Use: None Alcohol Amount: pt denies current etoh use Hx Substance Use: No Substance Use Type: Reports: None Hx Tobacco Use: Yes Smoking Status (MU): Former Smoker Type: Cigarettes Amount Used/How Often: 1 1/2 PPD X 30 YEARS Have You Smoked in the Last Year: No Review of Systems Positive: Shortness Of Breath, Cough Positive: Other - rib pain, , swelling in the bilateral lower extremities All Other Systems Reviewed And Are Negative: Yes Physical Exam - Summary Physical Exam Summary: Appearance: The patient is well-nourished in no acute distress and in no acute pain. Skin: The skin is warm and dry, and skin color reflects adequate perfusion. HEENT: The head is normocephalic and atraumatic. The pupils are equal and reactive. The conjunctivae are clear and without drainage. Nares are patent and without drainage. Mouth reveals moist mucous membranes, and the throat is without erythema and exudate. The external ears are intact. The ear canals are patent and without drainage. The tympanic membranes are intact. Neck: The neck is supple with full range of motion and non-tender. There are no carotid bruits. There is no neck vein distension. Respiratory: Expiratory wheezes, decreased breath sounds Cardiovascular: Heart is regular rate and rhythm. There is a systolic ejection murmur. There is pitting edema in the bilateral lower extremities with chronic venous stasis changes. Pulses are symmetrical and equal. Abdomen: The abdomen is soft and non-tender. There are normal bowel sounds heard in all four quadrants and there is no organomegaly palpated. Musculoskeletal: There is no back tenderness noted. Extremities are non-tender with full range of motion. There is good capillary refill. There is no calf tenderness elicited. There is pitting edema in the bilateral lower extremities with chronic venous stasis changes. Neurological: Patient is alert and oriented to person, place and time. The patient has symmetrical motor strength in all four extremities. Cranial nerves are grossly intact. Deep tendon reflexes are symmetrical and equal in all four extremities. Psychiatric: The patient has an appropriate affect and does not exhibit any anxiety or depression. Triage Information Reviewed: Yes Vital Signs On Initial Exam: Initial Vitals Temp Pulse Resp BP Pulse Ox 98.0 F 87 24 101/70 100 12/27/18 17:40 12/27/18 17:40 12/27/18 17:40 12/27/18 17:40 12/27/18 17:40 Vital Signs Reviewed: Yes Diagnostics - Vital Signs Vital Signs Temp Pulse Resp BP Pulse Ox 12/27/18 17:40 98.0 F 87 24 101/70 100 - Laboratory Result Diagrams: 12/27/18 18:24 12/27/18 18:24 Lab Statement: Any lab studies that have been ordered have been reviewed, and results considered in the medical decision making process. - Radiology CXR Radiology Interpretation Completed By: ED Physician Summary of Radiographic Findings: Pulmonary vascular congestion. Pending official report. - EKG 1828 Cardiac Rate: NL - 82 BPM EKG Rhythm: Sinus Rhythm Ectopy: PVCs Summary of EKG Findings: Sinus rhythm 82 BPM. PVCs Course/Dx - Course Course Of Treatment: Ms. Coburn was found to have some pulmonary vascular congestion. Her BUN and creatinine were elevated and she had an increase anemia. I requested that she be evaluated by the hospitalist for consideration for admission. I spoke with Dr. Angelo. - Diagnoses Provider Diagnoses: CHF (congestive heart failure), Anemia, Renal insufficiency - Physician Notifications Discussed Care of Patient With: Stewart Angelo Time Discussed With Above Provider: 20:08 Instructed by Provider To: Other - Dr. Angelo, hospitalist, agrees to admit patient - Critical Care Time Critical Care Time: 30-74 min Discharge ED - Sign-Out/Discharge Documenting (check all that apply): Patient Departure - Admit Patient Received Moderate/Deep Sedation with Procedure: No - Discharge Plan Condition: Stable Disposition: ADMITTED TO [facility] Referrals: Echo Rivero NP [Primary Care Provider] - - Billing Disposition and Condition Condition: STABLE Disposition: Admitted to [facility] - Attestation Statements Document Initiated by Scribe: Yes Documenting Scribe: Sadie Rueda Provider For Whom Aishaibmichael is Documenting (Include Credential): Heriberto Mejias MD Scribe Attestation: Sadie Gant, scribed for Heriberto Mejias MD on 12/27/18 at 2141. Scribe Documentation Reviewed: Yes Provider Attestation: The documentation as recorded by the aishaibSadie rodriguez accurately reflects the service I personally performed and the decisions made by me, Heriberto Mejias MD Status of Scribe Document: Viewed
--- OUTSIDE RECORDS SUMMARY | 2018-12-27 18:22 | XMS REPORT | Continuity of Care Document ---
:1940 External Reference #:[id number] Author Name Echo Rivero N.P. (transmitted by agent of provider Mary Hoffman) Address [address] , [place] [address] Care Team Providers Name Role Phone [facility] Care Team Information Operations Coordinator [place] - Physical Therapist Angie Zimmer MD - Internal Care Team Information Operations Coordinator Medicine Problems Active Problems Provider Date Benign essential hypertension Alexi Kim M.D. Onset: 02/08/2011 Mixed hyperlipidemia Alexi Kim M.D. Onset: 02/08/2011 Chronic obstructive lung disease Alexi Kim M.D. Onset: 02/23/2012 Impaired fasting glycaemia Alexi Kim M.D. Onset: 02/23/2012 Osteoporosis Alexi Kim M.D. Onset: 02/23/2012 Disorder of lung Sabrina Chester MD Onset: 04/13/2014 Hypoxemia Sabrina Chester MD Onset: 04/13/2014 Obesity Sabrina Chester MD Onset: 09/28/2014 Essential hypertension Alexi Kim M.D. Onset: 03/01/2015 History of malignant neoplasm of colon Alexi Kim M.D. Onset: 2015 Acute and chronic respiratory failure with Wanda Montaño M.D. Onset: 2017 hypoxia Chronic obstructive pulmonary disease with Wanda Montaño M.D. Onset: 2017 (acute) exacerbation Chronic obstructive pulmonary disease with Wanda Montaño M.D. Onset: 2017 (acute) lower respiratory infection Hyperlipidemia Wanda Montaño M.D. Onset: 11/12/2017 Anxiety state Keyonna Castillo DO Onset: 11/13/2017 Prosthetic arthroplasty of the hip Amanda Lay M.D. Onset: 02/01/2018 Gluteal tendinitis Amanda Lay M.D. Onset: 02/01/2018 Polyneuropathy Ayla Morton D.O. Onset: 03/18/2018 High enzyme level in serum Aimee Hess NP Onset: 03/20/2018 Heart failure, unspecified Aimee Hess NP Onset: 03/20/2018 Acute on chronic diastolic heart failure Cheyanne Jules NP Onset: 2017 Open wound of foot, excluding toe(s) Jerardo Kyle MD Onset: 10/08/2018 Lymphedema Jerardo Kyle MD Onset: 10/08/2018 Social History Type Date Description Comments Sex Unknown Cigarette Use Quit - Age 64 ETOH Use Rarely consumes alcohol Tobacco Use Start: Unknown End: Patient is a former Quit in 2004, Unknown smoker smoked 2 PPD for about 50 yrs Recreational Drug Use Denies Drug Use Smoking Status Reviewed: 12/03/18 Patient is a former Quit in 2004, smoker smoked 2 PPD for about 50 yrs Exercise Type/Frequency Exercises rarely Allergies, Adverse Reactions, Alerts Active Allergies Reaction Severity Comments Date PCN 01/22/2007 Codeine 01/22/2007 statins muscles aches 01/22/2007 Iodinated Diagnostic Agents 02/12/2014 Pineapple Allergenic Extract pineapple, tongue swells 08/31/2017 Medications Active Medications SIG Qnty Indications Ordering Date Provider Oxybutynin Chloride 1 by mouth every 30tabs R32 Ehco Varn, 12/03/2018 ER day N.P. 10mg Tablets ER 24HR Standard Wheelchair Use prn for Echo Varn, 11/29/2018 mobility N.P. Robaxin-750 1 tab by mouth 30tabs Sundar Mendiola NP 11/18/2018 750mg every 6 hours as Tablets needed muscle ache Doxycycline Hyclate one tablet twice Jones, 11/06/2018 daily [place] 100mg Capsules AZRA Arevalo, RN, [employer]-BC Senokot one tablet as 30tabs K59.00 Echo Varn, 10/22/2018 8.6mg Tablets needed for N.P. constipation Oxygen please use o2 at 1units R09.02 Sabrina Peresali, 09/24/2018 Misc 5-7L/min with exertion and at rest Cetirizine HCL 1 by mouth every 30tabs J44.1 Echo Rivero, 08/30/2018 10mg day N.P. Tablets Oxygen Mask (Mask needs 2units J44.9 Echo Rivero, 07/05/2018 perforations along N.P. side) Wear when sleeping. Irbesartan 1 by mouth every 90tabs Echo Rivero, 03/08/2018 150mg day N.P. Tablets Ventolin HFA 2 puffs 4 times a 24gm J44.1 Echo Rivero, 11/16/2017 day as needed N.P. 108(90Base) mcg/Act Aerosol Furosemide take 3 tablet by 90tabs Yesi Carrasco MD 10/14/2017 20mg mouth every day Tablets Nebulizer use three times a 1units Echo Rivero, 07/13/2017 Device day as needed N.P. Nebulizer use three times a 1units Echo Rivero, 07/13/2017 Kit/Tubing/Mouthpiec day as needed N.P. e Kit Ipratropium 1 vial in 540ml Echo Rivero, 07/13/2017 [place]/Albuterol nebulizer three N.P. Sulfate times a day as needed for asthma 0.5-2.5(3)mg/3ML Solution Multivitamins 1 by mouth every Unknown 02/07/2016 day Capsules Symbicort Inhale Two Puffs 30.6units J44.9 Sabrina Chester, 03/31/2015 By Mouth Twice A 160-4.5mcg/Act Day Aerosol Lyrica 25 mg in the 90caps Echo Rivero, 04/10/2014 25mg Capsules morning, and 50 mg N.P. at night Prolia 60 mg sc q6mon 60mg M81.0 Echo Rivero, 08/26/2013 60mg/ml N.P. Solution Z92.29 Clindamycin HCL 2 tabs one hour prior 2caps Jose Marin M.D. 05/09/2013 300mg to dental work Capsules Vitamin B Complex 1 po qd Unknown 01/10/2013 Capsules Simvastatin take one tablet by 90tabs Angie Zimmer, 01/20/2011 20mg Tablets mouth every evening M.D. Metolazone 1 tab by mouth 1/2 hour 30tabs Echo Rivero, N.P. 2.5mg Tablets daily prior to furosemide dose, Motrin Ib take 3 tabs three times Unknown 200mg Tablets per day as needed for pain Mupirocin apply once daily to Unknown 2% Ointment rash as needed Singulair 1 by mouth every day 90tabs Echo Rivero, N.P. 10mg Tablets Mucinex 2 by mouth twice a day Unknown 600mg Tablets ER prn 12HR Tessalon Perles 2 cap three times a day 180caps Echo Rivreo, N.P. 100mg as needed for cough Capsules Miralax take 1 packet daily as Unknown [id number] Packet needed for constipation Ferrous Sulfate 1 by mouth every other Unknown 325mg day Tablets Fluzone High-Dose Unknown 0.5ml Mylene Albuterol Sulfate 2 puffs every 12 hours Unknown Aspir-81 1 by mouth every day Unknown 81mg Tablets DR Calcium 500/D 1 po qd Unknown [id number] Chewtabs Senna Laxative 1 po hs prn Unknown 8.6mg Tablets Lorazepam 1 by mouth three times 60tabs Echo Rivero, N.P. 0.5mg Tablets a day as needed anxiety Vitamin C 1 by mouth every day Unknown 1,000mg Capsules Colace 1 by mouth qd 60caps Unknown 100mg Capsules Vitamin D 1 by mouth every day 30tabs Unknown 2000Unit Tablets Vitamin E 1 po qd Unknown 100Unit Capsules History Medications wheelchair Echo Rivero, 11/25/2018 - N.P. 11/29/2018 Azithromycin two tabs day 6tabs Echo Rivero, 08/22/2018 - 250mg one, one daily N.P. 08/25/2018 Tablets till gone Azithromycin two tabs day 6tabs J44.9 Echo Rivero, 07/26/2018 - 250mg one, one daily N.P. 08/05/2018 Tablets till gone Prednisone 4 tablets by 40tabs J44.9 Echo Rivero, 07/26/2018 - 10mg Tablets mouth for 4 days N.P. 08/11/2018 3 tablets by mouth for 4 days 2 tablets by mouth for 4 days 1 tablet by mouth for 4 days Medications Administered in Office Medication SIG Qnty Indications Ordering Provider Date Depomedrol 40MG Amanda Lay M.D. 11/15/2018 Injection Prolia Injection, Denosumab, Nurse Visit A 08/09/2018 1MG Injection Prolia Injection, Denosumab, Nurse Visit A 01/15/2018 1MG Injection Prolia Injection, Denosumab, Nurse Visit A 10/27/2016 1MG Injection Prolia Injection, Denosumab, Alexi Kim M.D. 02/29/2016 1MG Injection Prolia Injection, Denosumab, Nurse Visit C 05/11/2015 1MG Injection Influenza Virus Vaccine Unknown 01/14/2015 Injection Prolia Injection, Denosumab, Nurse Visit C 10/07/2014 1MG Injection Prolia Injection, Denosumab, Alexi Kim M.D. 04/20/2014 1MG Injection Prolia Injection, Denosumab, Nurse Visit [place] 10/06/2013 1MG Injection Immunizations CPT Code Status Date Vaccine Lot # [id number] Given 01/18/2018 Influenza Virus Vaccine, Quadrivalent, Split, Preservative Free [id number] Given 01/18/2018 Influenza Virus Vaccine, Quadrivalent, Split, Preservative Free 00370 Given 12/27/2015 Influenza Virus Vaccine, Quadrivalent, Split, Preservative Free 87913 Given 01/28/2015 Influenza Virus 3Yrs & Over 78034 Given 02/04/2014 Flu Vaccine Split Virus Preservative Free For [id number] Indiv 3Yr Older 75031 Given 08/25/2013 Pneumococcal Conjugate Vaccine 13 Valent For [id number] Intramuscular Use [id number] Given 01/18/2011 Fluzone Vaccine [id number] 64320 Given 02/04/2010 Influenza Virus 3Yrs & Over [id number] 25023 Given 04/21/2009 Influenza Virus Vaccine, Pandemic Formulation 61382 Given 01/29/2008 Influenza Virus 3Yrs & Over 81748 Given 01/29/2008 Influenza Virus 3Yrs & Over 65585 Given 07/24/2007 Pneumonia Vaccine [id number] 80758 Given 07/24/2007 Tetanus And Diptheria (Td) For Adult Use Preservative Free 67730 Given 07/24/2007 Tetanus And Diptheria (Td) For Adult Use Preservative Free 31563 Given 01/22/2007 Influenza Virus 3Yrs & Over 70795 Given 01/22/2007 Influenza Virus 3Yrs & Over 54049 Vital Signs Date Vital Result Comment 12/03/2018 2:13pm Height 63.5 inches 5'3.50" Weight 250.00 lb Heart Rate 51 /min BP Systolic 99 mmHg BP Diastolic 60 mmHg Body Temperature 98.4 F O2 % BldC Oximetry 94 % on 4LNC BMI (Body Mass Index) 43.6 kg/m2 11/15/2018 1:59pm Height 63.5 inches 5'3.50" Weight 193.00 lb Heart Rate 70 /min BP Systolic 128 mmHg BP Diastolic 70 mmHg Respiratory Rate 12 /min Pain Level 8 BMI (Body Mass Index) 33.6 kg/m2 Results Test Date Facility Test Result H/L Range Note Laboratory test 11/01/2018 [facility] Tissue Culture SEE RESULT 1, [address] & [place] [address] [phone] Surgical Pathology SEE RESULT BELOW 3 CBC Auto 10/12/2018 [facility] White Blood 6.2 10^3/uL Normal 3.5-10.[address] [place] [address] [phone] Red Blood Count 3.74 10^6/uL Normal 3.70-4.87 Hemoglobin 11.6 g/dL Low 12.0-16.0 Hematocrit 34 % Low 35-47 Mean Corpuscular Volume 90 fL Normal 80-97 Mean Corpuscular Hemoglobin 31 pg Normal 27-31 Mean Corpuscular HGB Conc 34 g/dL Normal 31-36 Red Cell Distribution Width 14 % Normal 10-15 Platelet Count 232 10^3/uL Normal 150-450 Mean Platelet Volume 7.4 fL Normal 7.4-10.4 Abs Neutrophils 5.0 10^3/uL Normal 1.5-7.7 Abs Lymphocytes 0.5 10^3/uL Low 1.0-4.8 Abs Monocytes 0.5 10^3/uL Normal 0-0.8 Abs Eosinophils 0.2 10^3/uL Normal 0-0.6 Abs Basophils 0.0 10^3/uL Normal 0-0.2 Abs Nucleated RBC 0.0 10^3/uL Granulocyte % 80.0 % Lymphocyte % 8.2 % Monocyte % 7.3 % Eosinophil % 3.9 % Basophil % 0.6 % Nucleated Red Blood Cells % 0.0 Laboratory test 10/12/2018 [facility] B-Type 1070 pg/mL High < =[address] [place] [address] Peptide BNP [phone] Lactic Acid 0.7 mmol/L Normal 0.5-2.0 4 Comp Metabolic 10/12/2018 [facility] Sodium 137 mmol/L Normal 135-[address] [place] [address] [phone] Potassium 4.1 mmol/L Normal 3.5-5.0 Chloride 99 mmol/L Low 101-111 Co2 Carbon Dioxide 34 mmol/L High 22-32 Anion Gap 4 mmol/L Normal 2-11 Glucose 103 mg/dL High 70-100 Blood Urea Nitrogen 21 mg/dL Normal 6-24 Creatinine 0.87 mg/dL Normal 0.51-0.95 BUN/Creatinine Ratio 24.1 High 8-20 Calcium 9.2 mg/dL Normal 8.6-10.3 Total Protein 6.1 g/dL Low 6.4-8.9 Albumin 3.5 g/dL Normal 3.2-5.2 Globulin 2.6 g/dL Normal 2-4 Albumin/Globulin Ratio 1.3 Normal 1-3 Total Bilirubin 0.50 mg/dL Normal 0.2-1.0 Alkaline Phosphatase 80 U/L Normal 34-104 Alt 16 U/L Normal 7-52 Ast 21 U/L Normal 13-39 Egfr Non- 63.0 >60 Egfr 76.2 >60 5 Laboratory test 10/12/2018 [facility] C Reactive 19.83 mg/L High <8.[address] [place] [address] [phone] Troponin-I (TnI) 0.05 ng/mL Critical high <0.04 6 Blood Culture SEE RESULT BELOW 7 Urinalysis Profile 09/17/2018 [facility] Urine Color Yellow [address] [place] [address] [phone] Urine Appearance Cloudy Urine Specific [place] 1.006 Low 1.010-1.030 Urine pH 7.0 Normal 5-9 Urine Urobilinogen Negative Negative Urine Ketones Negative Negative Urine Protein Negative Negative Urine Leukocytes Negative Negative Urine Blood Negative Negative Urine Nitrite Negative Negative Urine Bilirubin Negative Negative Urine Glucose Negative Negative Laboratory 09/17/2018 [facility] Partial 42.2 High 26.0-38.0 test finding 101 [facility] [place] [address] PTT [phone] Inr/Protime 09/17/2018 [facility] Inr 1.05 Normal 0.82-1.09 8 [address] [place] [address] [phone] Laboratory 09/17/2018 [facility] Magnesium 2.0 mg/dL Normal 1.9-2.7 test finding [address] [place] [address] [phone] Troponin-I (TnI) 0.04 ng/mL Critical high <0.04 9 Comp Metabolic 09/17/2018 [facility] Sodium 138 mmol/L Normal 135-145 Panel [address] [place] [address] [phone] Potassium 4.2 mmol/L Normal 3.5-5.0 Chloride 99 mmol/L Low 101-111 Co2 Carbon Dioxide 33 mmol/L High 22-32 Anion Gap 6 mmol/L Normal 2-11 Glucose 115 mg/dL High 70-100 Blood Urea Nitrogen 25 mg/dL High 6-24 Creatinine 1.10 mg/dL High 0.51-0.95 BUN/Creatinine Ratio 22.7 High 8-20 Calcium 9.4 mg/dL Normal 8.6-10.3 Total Protein 6.1 g/dL Low 6.4-8.9 Albumin 3.5 g/dL Normal 3.2-5.2 Globulin 2.6 g/dL Normal 2-4 Albumin/Globulin Ratio 1.3 Normal 1-3 Total Bilirubin 0.40 mg/dL Normal 0.2-1.0 Alkaline Phosphatase 71 U/L Normal 34-104 Alt 14 U/L Normal 7-52 Ast 25 U/L Normal 13-39 Egfr Non- 48.0 >60 Egfr 58.1 >60 10 Laboratory test 09/17/2018 [facility] Lactic Acid 1.5 mmol/L Normal 0.5-2.0 [address] [place] [address] [phone] B-Type Natriuretic Peptide BNP 438 pg/mL High <=100 CBC Auto 09/17/2018 [facility] White Blood 7.6 10^3/uL Normal 3.5-10.[address] [place] [address] [phone] Red Blood Count 3.72 10^6/uL Normal 3.70-4.87 Hemoglobin 11.2 g/dL Low 12.0-16.0 Hematocrit 34 % Low 35-47 Mean Corpuscular Volume 92 fL Normal 80-97 Mean Corpuscular Hemoglobin 30 pg Normal 27-31 Mean Corpuscular HGB Conc 33 g/dL Normal 31-36 Red Cell Distribution Width 14 % Normal 10.5-15 Platelet Count 267 10^3/uL Normal 150-450 Mean Platelet Volume 7.8 fL Normal 7.4-10.4 Abs Neutrophils 5.4 10^3/uL Normal 1.5-7.7 Abs Lymphocytes 0.7 10^3/uL Low 1.0-4.8 Abs Monocytes 1.0 10^3/uL High 0-0.8 Abs Eosinophils 0.4 10^3/uL Normal 0-0.6 Abs Basophils 0.1 10^3/uL Normal 0-0.2 Abs Nucleated RBC 0.0 10^3/uL Granulocyte % 71.3 % Lymphocyte % 9.6 % Monocyte % 13.1 % Eosinophil % 5.0 % Basophil % 1.0 % Nucleated Red Blood Cells % 0.0 Laboratory 09/17/2018 [facility] Troponin-I 0.04 Critical < 0.04 12 test finding [address] (TnI) ng/[place] [address] [phone] Urinalysis 08/19/2018 [facility] Urine Color Yellow Profile [address] [place] [address] [phone] Urine Appearance Cloudy Urine Specific [place] 1.010 Normal 1.010-1.030 Urine pH 6.0 Normal 5-9 Urine Urobilinogen Negative Negative Urine Ketones Negative Negative Urine Protein Negative Negative Urine Leukocytes Negative Negative Urine Blood Negative Negative * * Abnormal Negative 13 Urine Nitrite Negative Negative Urine Bilirubin Negative Negative Urine Glucose Negative Negative Influenza A & B 08/19/2018 [facility] Influenza A NEGATIVE Negative [address] [place] [address] [phone] Influenza B Molecular NEGATIVE Negative Laboratory 08/19/2018 [facility] Troponin-I 0.05 Critical < 0.04 15 test finding 101 [facility] (TnI) ng/[place] [address] [phone] C Reactive Protein 17.59 mg/L High <8.01 D Dimer Quantitative 205 ng/mL Normal Less Than 230 16 Blood Culture SEE RESULT BELOW 17 CKMB 08/19/2018 [facility] CKMB ng/mL 2.7 ng/mL Normal 0.6- 6.3 [address] [place] [address] [phone] Laboratory test 08/19/2018 [facility] Creatine 97 U/L Normal 10-[address] [facility] Kinase([place]) [place] [address] [phone] Comp Metabolic 08/19/2018 [facility] Sodium 139 mmol/L Normal 135-145 Panel [address] [place] [address] [phone] Potassium 4.0 mmol/L Normal 3.5-5.0 Chloride 99 mmol/L Low 101-111 Co2 Carbon Dioxide 35 mmol/L High 22-32 Anion Gap 5 mmol/L Normal 2-11 Glucose 91 mg/dL Normal 70-100 Blood Urea Nitrogen 27 mg/dL High 6-24 Creatinine 1.06 mg/dL High 0.51-0.95 BUN/Creatinine Ratio 25.5 High 8-20 Calcium 9.9 mg/dL Normal 8.6-10.3 Total Protein 6.6 g/dL Normal 6.4-8.9 Albumin 4.0 g/dL Normal 3.2-5.2 Globulin 2.6 g/dL Normal 2-4 Albumin/Globulin Ratio 1.5 Normal 1-3 Total Bilirubin 0.50 mg/dL Normal 0.2-1.0 Alkaline Phosphatase 53 U/L Normal 34-104 Alt 16 U/L Normal 7-52 Ast 24 U/L Normal 13-39 Egfr Non- 50.1 >60 Egfr 60.7 >60 18 Laboratory 08/19/2018 [facility] Partial 39.0 High 26.0-36.[address] [place] [address] Time PTT [phone] Inr/Protime 08/19/2018 [facility] Inr 0.98 Normal 0.82-1.[address] [place] [address] [phone] CBC Auto Diff 08/19/2018 [facility] White Blood 6.9 10^3/uL Normal 3.5-10.[address] [place] [address] [phone] Red Blood Count 3.73 10^6/uL Normal 3.70-4.87 Hemoglobin 11.5 g/dL Low 12.0-16.0 Hematocrit 35 % Normal 35-47 Mean Corpuscular Volume 92 fL Normal 80-97 Mean Corpuscular Hemoglobin 31 pg Normal 27-31 Mean Corpuscular HGB Conc 33 g/dL Normal 31-36 Red Cell Distribution Width 13 % Normal 10.5-15 Platelet Count 179 10^3/uL Normal 150-450 Mean Platelet Volume 9.0 fL Normal 7.4-10.4 Abs Neutrophils 4.9 10^3/uL Normal 1.5-7.7 Abs Lymphocytes 0.9 10^3/uL Low 1.0-4.8 Abs Monocytes 0.8 10^3/uL Normal 0-0.8 Abs Eosinophils 0.2 10^3/uL Normal 0-0.6 Abs Basophils 0.1 10^3/uL Normal 0-0.2 Abs Nucleated RBC 0.0 10^3/uL Granulocyte % 71.4 % Lymphocyte % 13.1 % Monocyte % 11.2 % Eosinophil % 3.6 % Basophil % 0.7 % Nucleated Red Blood Cells % 0.0 Laboratory test 08/19/2018 [facility] Lactic Acid 1.2 mmol/L Normal 0.5-2.[address] [place] [address] [phone] B-Type Natriuretic Peptide BNP 412 pg/mL High <=100 Laboratory 08/19/2018 [facility] Troponin-I 0.05 Critical < 0.04 21 test finding [address] (TnI) ng/[place] [address] [phone] Laboratory 08/16/2018 [facility] Ferritin 54.0 Normal 11-307 test finding [address] ng/mL [place] [id number] [phone] CBC Auto Diff 08/16/2018 [facility] White Blood 6.8 Normal 3.5 -10.[address] Count 10^3/uL [place], [place] [address] [phone] Red Blood Count 3.67 10^6/uL Low 3.70-4.87 Hemoglobin 11.5 g/dL Low 12.0-16.0 Hematocrit 34 % Low 35-47 Mean Corpuscular Volume 93 fL Normal 80-97 Mean Corpuscular Hemoglobin 31 pg Normal 27-31 Mean Corpuscular HGB Conc 34 g/dL Normal 31-36 Red Cell Distribution Width 13 % Normal 10.5-15 Platelet Count 152 10^3/uL Normal 150-450 Mean Platelet Volume 9.3 fL Normal 7.4-10.4 Abs Neutrophils 4.5 10^3/uL Normal 1.5-7.7 Abs Lymphocytes 0.9 10^3/uL Low 1.0-4.8 Abs Monocytes 1.0 10^3/uL High 0-0.8 Abs Eosinophils 0.3 10^3/uL Normal 0-0.6 Abs Basophils 0.1 10^3/uL Normal 0-0.2 Abs Nucleated RBC 0.0 10^3/uL Granulocyte % 65.9 % Lymphocyte % 13.5 % Monocyte % 15.2 % Eosinophil % 4.3 % Basophil % 1.1 % Nucleated Red Blood Cells % 0.0 Iron & Iron Binding 08/16/2018 [facility] Iron 70 g/dL Normal 50-[address] [place], [place] [id number] [phone] Unsaturated Iron Binding < 311 g/dL Total Iron Binding Capacity 326 g/dL Normal 250-450 Transferrin 233 mg/dL Normal 203-362 % Iron Saturation 21 % Normal 15-55 Laboratory test 07/12/2018 [facility] Rapid SEE RESULT [address] [place] [address] Antigen [phone] CBC Auto Diff 07/12/2018 [facility] White Blood 6.0 10^3/uL Normal 3.5-[address] [place] 0[place]8 [place] [address] [phone] Red Blood Count 3.50 10^6/uL Low 3.70-4.87 Hemoglobin 11.0 g/dL Low 12.0-16.0 Hematocrit 33 % Normal 33-41 Mean Corpuscular Volume 94 fL Normal 80-97 Mean Corpuscular Hemoglobin 32 pg High 27-31 Mean Corpuscular HGB Conc 34 g/dL Normal 31-36 Red Cell Distribution Width 13 % Normal 10.5-15 Platelet Count 160 10^3/uL Normal 150-450 Mean Platelet Volume 8.0 fL Normal 7.4-10.4 Abs Neutrophils 4.5 10^3/uL Normal 1.5-7.7 Abs Lymphocytes 0.5 10^3/uL Low 1.0-4.8 Abs Monocytes 0.8 10^3/uL Normal 0-0.8 Abs Eosinophils 0.2 10^3/uL Normal 0-0.6 Abs Basophils 0 10^3/uL Normal 0-0.2 Abs Nucleated RBC 0 10^3/uL Granulocyte % 74.6 % Lymphocyte % 8.5 % Monocyte % 13.0 % Eosinophil % 3.3 % Basophil % 0.6 % Nucleated Red Blood Cells % 0 Comp Metabolic 07/12/2018 [facility] Sodium 135 mmol/L Normal 135-[address] [place] [address] [phone] Potassium 4.5 mmol/L Normal 3.5-5.0 Chloride 97 mmol/L Low 101-111 Co2 Carbon Dioxide 35 mmol/L High 22-32 Anion Gap 3 mmol/L Normal 2-11 Glucose 79 mg/dL Normal 70-100 Blood Urea Nitrogen 21 mg/dL Normal 6-24 Creatinine 0.91 mg/dL Normal 0.51-0.95 BUN/Creatinine Ratio 23.1 High 8-20 Calcium 9.1 mg/dL Normal 8.6-10.3 Total Protein 5.9 g/dL Low 6.4-8.9 Albumin 3.6 g/dL Normal 3.2-5.2 Globulin 2.3 g/dL Normal 2-4 Albumin/Globulin Ratio 1.6 Normal 1-3 Total Bilirubin 0.50 mg/dL Normal 0.2-1.0 Alkaline Phosphatase 50 U/L Normal 34-104 Alt 18 U/L Normal 7-52 Ast 26 U/L Normal 13-39 Egfr Non- 59.8 >60 Egfr 72.3 >60 23 Laboratory test 07/12/2018 [facility] Troponin-I (TnI) 0.03 ng/ mL <0.04 [address] [place] [address] [phone] Lactic Acid 0.7 mmol/L Normal 0.5-2.0 25 B-Type Natriuretic Peptide BNP 382 pg/mL High <=100 Magnesium 2.1 mg/dL Normal 1.9-2.7 Urinalysis Profile 07/12/2018 [facility] Urine Color Straw [address] [place] [address] [phone] Urine Appearance Clear Urine Specific [place] 1.006 Low 1.010-1.030 Urine pH 7.0 Normal 5-9 Urine Urobilinogen Negative Negative Urine Ketones Negative Negative Urine Protein Negative Negative Urine Leukocytes Negative Negative Urine Blood Negative Negative Urine Nitrite Negative Negative Urine Bilirubin Negative Negative Urine Glucose Negative Negative Rapid Influenza 07/12/2018 [facility] Influenza A NEGATIVE Negative 26 A & B Molecular [address] [place] [address] [phone] Influenza B Molecular NEGATIVE Negative Laboratory test 06/21/2018 [facility] Troponin-I 0.03 ng/mL < 0.04 [address] (TnI) [place], [place] [id number] [phone] Rapid Influenza 06/21/2018 [facility] Influenza A NEGATIVE Negative 28 A & B Molecular [address] Molecular [place], [place] [address] [phone] Influenza B Molecular NEGATIVE Negative Laboratory test 06/21/2018 [facility] Rapid SEE RESULT [address] [place] [address] Antigen [phone] CBC Auto Diff 06/21/2018 [facility] White Blood 8.0 10^3/uL Normal 3.5-[address] Count 0.8 [place] [address] [phone] Red Blood Count 3.81 10^6/uL Low 4.00-5.40 Hemoglobin 11.7 g/dL Low 12.0-16.0 Hematocrit 36 % Normal 35-47 Mean Corpuscular Volume 95 fL Normal 80-97 Mean Corpuscular Hemoglobin 31 pg Normal 27-31 Mean Corpuscular HGB Conc 32 g/dL Normal 31-36 Red Cell Distribution Width 14 % Normal 10.5-15 Platelet Count 182 10^3/uL Normal 150-450 Mean Platelet Volume 9.3 fL Normal 7.4-10.4 Abs Neutrophils 6.1 10^3/uL Normal 1.5-7.7 Abs Lymphocytes 0.6 10^3/uL Low 1.0-4.8 Abs Monocytes 0.9 10^3/uL High 0-0.8 Abs Eosinophils 0.4 10^3/uL Normal 0-0.6 Abs Basophils 0 10^3/uL Normal 0-0.2 Abs Nucleated RBC 0 10^3/uL Granulocyte % 75.7 % Lymphocyte % 7.7 % Monocyte % 11.8 % Eosinophil % 4.4 % Basophil % 0.4 % Nucleated Red Blood Cells % 0 Laboratory test 06/21/2018 [facility] B-Type 321 pg/mL High <= [address] [place] [address] Peptide BNP [phone] Comp Metabolic 06/21/2018 [facility] Sodium 137 Normal 135- [address] mmol/[place] [address] [phone] Potassium 4.8 mmol/L Normal 3.5-5.0 Chloride 100 mmol/L Low 101-111 Co2 Carbon Dioxide 33 mmol/L High 22-32 Anion Gap 4 mmol/L Normal 2-11 Glucose 95 mg/dL Normal 70-100 Blood Urea Nitrogen 27 mg/dL High 6-24 Creatinine 0.97 mg/dL High 0.51-0.95 BUN/Creatinine Ratio 27.8 High 8-20 Calcium 8.9 mg/dL Normal 8.6-10.3 Total Protein 6.2 g/dL Low 6.4-8.9 Albumin 3.8 g/dL Normal 3.2-5.2 Globulin 2.4 g/dL Normal 2-4 Albumin/Globulin Ratio 1.6 Normal 1-3 Total Bilirubin 0.50 mg/dL Normal 0.2-1.0 Alkaline Phosphatase 48 U/L Normal 34-104 Alt 13 U/L Normal 7-52 Ast 23 U/L Normal 13-39 Egfr Non- 55.5 >60 Egfr 67.2 >60 30 Laboratory test 06/21/2018 [facility] Troponin-I (TnI) 0.03 ng/ mL <0.04 31 finding [address] [place] [address] [phone] Lactic Acid 1.6 mmol/L Normal 0.5-2.0 32 Blood Culture SEE RESULT BELOW 33 1 RIGHT FOOT 2 SEE RESULT BELOW Name: FRANCISCA COBURN : [address]: Asia Jones NP Acct: [id number] Unit: [id number] AGE: 78 Location: [facility] Re11/01/18 SEX: F Status: REG REF SPEC: [id number] JUAN ANTONIO: 11/01/18-1400 [facility] DR: Asia Jones NP REQ: [id number] RECD: 11/01/18800 STATUS: MARYANN FLORES DR: Echo Rivero CERTIFIED ALCOHOL AND DRUG COUNSELOR _ SOURCE: WOUND SPDESC: ORDERED: Tissue Cult/DOMINGO COMMENTS: RIGHT FOOT Procedure Result Reported Site Tissue Gram Stain Final 11/01/18- 1537 ML 2+ Epithelial Cells 1+ Neutrophils 1+ Gram Positive Bacilli , resembling diptheroids 1+ Gram Negative Bacilli Tissue Culture Final 11/04/18- 1018 ML Organism 1 MRSA Quantity 2+ Organism 2 ENTEROCOCCUS FAECALIS Quantity 1+ Organism 3 CORYNEBACTERIUM STRIATUM Quantity 1+ Organism 4 NORMAL ELLA Quantity 1+ MRSA: Consistent with previous results. 1. MRSA M.I.C. RX --------- ------ Penicillin >=0.5 R Clindamycin <=0.25 S Erythromycin >=8 R Gentamicin <=0.5 S Linezolid 2 S Oxacillin >=4 R * Quinupristin/Dalfopristin <=0.25 S Rifampin <=0.5 S CONTINUED ON NEXT PAGE DEPARTMENT OF PATHOLOGY, [address] [place] [address] Riky Samayoa M.D. Director [facility] # [id number] Patient: FRANCISCA COBURN [id number] (Continued) Specimen: [id number] Collected: 11/01/18-1399 Received: 11/01/18-1453 (Continued) Procedure Result Reported Site Tissue Culture Final (continued) 11/04/18- 1018 1. MRSA (continued) M.I.C. RX --------- ------ Tetracycline <=1 S Doxycycline - Deduced S * Minocycline - Deduced S Trimethoprim/Sulfamethoxazole <=10 S Vancomycin 1 S Imipenem-Deduced R * Ampicillin/Sulbactam-Deduced R Cefazolin-Deduced R 2. ENTEROCOCCUS FAECALIS M.I.C. RX --------- ------ Ampicillin <=2 S Penicillin 2 S Ciprofloxacin >=8 R Erythromycin >=8 R Gentamicin High Level S Levofloxacin >=8 R Linezolid 1 S * Quinupristin/Dalfopristin 4 R * Streptomycin High Level S Tetracycline >=16 R Tigecycline <=0.12 S Vancomycin 1 S Imipenem-Deduced S * Ampicillin/Sulbactam-Deduced S * These antibiotics are not available in the [facility] Formulary Contact the Microbiology Department for any additional antibiotic reporting. * - Main Lab . END OF REPORT DEPARTMENT OF PATHOLOGY, [address] [place] [address] Riky Samayoa M.D. Director [facility] # [id number] 3 SEE RESULT BELOW Name: FRANCISCA COBURN : [address]: Asia Jones NP Acct: [id number] Unit: [id number] AGE: 78 Location: WOUND Re11/01/18 SEX: F Status: REG REF SPEC: [id number] JUAN ANTONIO: 11/01/18-[address]: Asia Jones NP REQ: [id number] RECD: 11/01/182884 STATUS: ASHLY FLORES DR: Echo Sanders Ellgilbert Bolanos DPM _ ORDERED: LEVEL 4 FINAL DIAGNOSIS Skin, right foot, biopsy: -- Fibrinous exudate only. -- No tissue present for evaluation. CLINICAL HISTORY Open area for 8 months plantar aspect right foot, history COPD PRE-OPERATIVE DIAGNOSIS Chronic ulcer right foot GROSS DESCRIPTION The specimen is received in formalin labeled, Right Foot, and consists of a 0.4 x 0.2 by up to 0.2 cm faustin irregular skin fragment which is inked and submitted entirely in one cassette. Signed by and Reported on: Mine Ponce MD 11/05/18 1040 END OF REPORT DEPARTMENT OF PATHOLOGY, [address] [place] [address] Riky Samayoa M.D. Director [facility] # [id number] 4 [facility] Severe Sepsis and Septic Shock [...] 5 Kidney failure <15 (or dialysis) 6 Result TnIDx:0.05 Called to [id number] at: 13:34:26 by:[id number] Read back by: [id number] Troponin-I testing on Plasma Separator Tubes (PST) has a known false positive rate of 0.20-0.40%. All positive troponins reflex immediately to secondary confirmatory testing. Using the Thrinacia DxI 800 Access Immunoassay systems, the 99th percentile upper reference limit was demonstrated to be < 0.03 ng/mL. 7 SEE RESULT BELOW Name: FRANCISCA COBURN : [address]: Elinor Muñoz MD Acct: [id number] Unit: [id number] AGE: 78 Location: [place] [address] Re10/12/18 Dis: 10/17/18 SEX: F Status: DIS IN SPEC: [id number] JUAN ANTONIO: 10/12/18-1256 [facility] DR: Heriberto Mejias MD REQ: [id number] RECD: 10/12/18-5903 STATUS: MARYANN FLORES DR: Echo Rivero CERTIFIED ALCOHOL AND DRUG COUNSELOR _ SOURCE: BLOOD,VENO SPDESC: ORDERED: Blood Cult Procedure Result Reported Site Aerobic Culture Bottle Final 10/17/18- 1303 ML No Growth Day 5 Anaerobic Culture Bottle Final 10/17/18- 1303 ML No Growth Day 5 * ML - Main Lab . END OF REPORT DEPARTMENT OF PATHOLOGY, [address] [place] [address] Riky Samayoa M.D. Director [facility] # [id number] 8 Standard intensity warfarin therapeutic range: 2.0-3.0 High intensity warfarin therapeutic range: 2.5-3.5 9 Result TnIDx:0.04 Called to JESSE at: 17:04:50 by:[id number] Read back by: [email or web address] Troponin-I testing on Plasma Separator Tubes (PST) has a known false positive rate of 0.20-0.40%. All positive troponins reflex immediately to secondary confirmatory testing. Using the Thrinacia DxI 800 Access Immunoassay systems, the 99th percentile upper reference limit was demonstrated to be < 0.03 ng/mL. 10 Because ethnic data is not always [...] 5 Kidney failure <15 (or dialysis) 11 [facility] Severe Sepsis and Septic Shock Management Bundle Measure requires all lactic acids initially measuring >2.0 mmol/L be repeated. 12 Result TnIDx:0.04 Called to [id number] at: 21:02:41 by:[id number] Read back by: [id number] Troponin-I testing on Plasma Separator Tubes (PST) has a known false positive rate of 0.20-0.40%. All positive troponins reflex immediately to secondary confirmatory testing. Using the Thrin[employer] DxI 800 Access Immunoassay systems, the 99th percentile upper reference limit was demonstrated to be < 0.03 ng/mL. 13 *Ascorbic acid is present which may interfere with detection of blood. 14 Hand Stemmer: [id number] 15 Result TnIDx:0.05 Called to [id number] at: 19:43:39 by:[id number] Read back by: [id number] Troponin-I testing on Plasma Separator Tubes (PST) has a known false positive rate of 0.20-0.40%. All positive troponins reflex immediately to secondary confirmatory testing. Using the [employer] DxI 800 Access Immunoassay systems, the 99th percentile upper reference limit was demonstrated to be < 0.03 ng/mL. 16 Please note: The following may produce a false positive D Dimer test: - Rheumatoid factor greater than 60 IU/ml - Plasma hemoglobin greater than 0.05 gm/dl - Bilirubin greater than 50 mg/dl - Lipids greater than 1000 mg/dl - FDP greater than 20 ug/ml 17 SEE RESULT BELOW Name: FRANCISCA COBURN : [address]: Benton Steel MD Acct: [id number] Unit: [id number] AGE: 78 Location: [facility] 446- Re08/19/18 Dis: 08/22/18 SEX: F Status: DIS IN SPEC: [id number] JUAN ANTONIO: 08/19/[address]: Alexi Maxwell MD REQ: [id number] RECD: 08/19/18 STATUS: MARYANN FLORES DR: Echo Rivero CERTIFIED ALCOHOL AND DRUG COUNSELOR _ SOURCE: BLOOD,VENO SPDESC: ORDERED: Blood Cult Procedure Result Reported Site Aerobic Culture Bottle Final 08/24/18- 1916 ML No Growth Day 5 Anaerobic Culture Bottle Final 08/24/18- 1914 ML No Growth Day 5 * ML - Main Lab . END OF REPORT DEPARTMENT OF PATHOLOGY, [address] [place] [address] Riky Samayoa M.D. Director [facility] # [id number] 18 Because ethnic data is not always readily [...] 15-29 5 Kidney failure <15 (or dialysis) 19 Standard intensity warfarin therapeutic range: 2.0-3.0 High intensity warfarin therapeutic range: 2.5-3.[address] [facility] Severe Sepsis and Septic Shock Management Bundle Measure requires all lactic acids initially measuring >2.0 mmol/L be repeated. 21 Result TnIDx:0.05 Called to [id number] at: 23:27:08 by:[id number] Read back by: [id number] Troponin-I testing on Plasma Separator Tubes (PST) has a known false positive rate of 0.20-0.40%. All positive troponins reflex immediately to secondary confirmatory testing. Using the [employer]rin[employer] DxI 800 Access Immunoassay systems, the 99th percentile upper reference limit was demonstrated to be < 0.03 ng/mL. 22 SEE RESULT BELOW Name: FRANCISCA COBURN : [address]: Carlos Rhodes MD Acct: [id number] Unit: [id number] AGE: 78 Location: ED Re07/12/18 SEX: F Status: REG ER SPEC: [id number] JUAN ANTONIO: 07/12/18-3781 [facility] DR: Carlos Rhodes MD REQ: [id number] RECD: 07/12/18701 STATUS: MARYANN FLORES DR: Echo Rivero CERTIFIED ALCOHOL AND DRUG COUNSELOR _ SOURCE: NASAL SPDESC: ORDERED: Flu A B Request Procedure Result Reported Site Rapid Influenza A B Request Final 07/12/18- 1529 ML Specimen received for Influenza A/B Molecular testing * ML - Main Lab . END OF REPORT DEPARTMENT OF PATHOLOGY, [address] [place] [address] Riky Samayoa M.D. Director [facility] # [id number] 23 Because ethnic data is not always readily [...] 15-29 5 Kidney failure <15 (or dialysis) 24 Troponin-I testing on Plasma Separator Tubes (PST) has a known false positive rate of 0.20-0.40%. All positive troponins reflex immediate secondary confirmatory testing. 25 [facility] Severe Sepsis and Septic Shock Management Bundle Measure requires all lactic acids initially measuring >2.0 mmol/L be repeated. 26 Hand Stemmer: [id number] 27 Troponin-I testing on Plasma Separator Tubes (PST) has a known false positive rate of 0.20-0.40%. All positive troponins reflex immediate secondary confirmatory testing. 28 Hand Stemmer: [id number] 29 SEE RESULT BELOW Name: FRANCISCA COBURN : [address]: Carlos Rhodes MD Acct: [id number] Unit: [id number] AGE: 78 Location: ED Re06/21/18 SEX: F Status: PRE ER SPEC: [id number] JUAN ANTONIO: 06/21/18 [facility] DR: Carlos Rhodes MD REQ: [id number] RECD: 06/21/18 STATUS: MARYANN FLORES DR: Echo Rivero CERTIFIED ALCOHOL AND DRUG COUNSELOR _ SOURCE: NASAL SPDESC: ORDERED: Flu A B Request Procedure Result Reported Site Rapid Influenza A B Request Final 06/21/18- 1142 ML Specimen received for Influenza A/B Molecular testing * ML - Main Lab . END OF REPORT DEPARTMENT OF PATHOLOGY, [address] [place] [address] Riky Samayoa M.D. Director [facility] # [id number] 30 Because ethnic data is not always [...] 5 Kidney failure <15 (or dialysis) 31 Troponin-I testing on Plasma Separator Tubes (PST) has a known false positive rate of 0.20-0.40%. All positive troponins reflex immediate secondary confirmatory testing. 32 [facility] Severe Sepsis and Septic Shock Management Bundle Measure requires all lactic acids initially measuring >2.0 mmol/L be repeated. 33 SEE RESULT BELOW Name: FRANCISCA COBURN : [address]: Deborah Jacobs MD Acct: [id number] Unit: [id number] AGE: 78 Location: [place] [address] Re06/21/18 SEX: F Status: ADM IN SPEC: [id number] JUAN ANTONIO: 06/21/18 [facility] DR: Carlos Rhodes MD REQ: [id number] RECD: 06/21/18 STATUS: MARYANN FLORES DR: Echo Rivero CERTIFIED ALCOHOL AND DRUG COUNSELOR _ SOURCE: BLOOD,VENO SPDES: ORDERED: Blood Cult Procedure Result Reported Site Aerobic Culture Bottle Final 06/26/18- 1141 ML No Growth Day 5 Anaerobic Culture Bottle Final 06/26/18- 1141 ML No Growth Day 5 * ML - Main Lab . END OF REPORT DEPARTMENT OF PATHOLOGY, [address] [place] [address] Riky Samayoa M.D. Director [facility] # [id number] Procedures Date Code Description Status 11/15/2018 64361 Injection Single Tendon Origin/Insertion Completed 11/01/2018 47916 Debridement Skin,& sq Tissue Completed 10/12/2018 34048 EKG, Interpretation Only Completed 09/18/2018 64385 EKG, Interpretation Only Completed 09/12/2018 563867865 Diabetic Foot Exam Completed 08/09/2018 75449 Admin Of Inj Completed 08/07/2018 73168 EKG Tracing & Interpretation Completed 07/13/2018 56590 EKG, Interpretation Only Completed 06/22/2018 46015 EKG, Interpretation Only Completed 06/22/2018 05808 EKG, Interpretation Only Completed 06/21/2018 73929 ECHO Transthorasic Realtime 2D W Doppler & Color Flow Completed Hosp 11/07/2017 47022341 Mammogram Completed 03/30/2017 57081816 Mammogram Completed 04/01/2015 443895197 Bone Mineral Density Test Completed 04/01/2015 56835798 Mammogram Completed 02/17/2013 466859222 Bone Mineral Density Test Completed 02/17/2013 54191422 Mammogram Completed 03/20/2012 27348534 Colonoscopy Completed 01/25/2011 812832203 Bone Mineral Density Test Completed 01/25/2011 35804219 Mammogram Completed 03/04/2008 53807928 Colonoscopy Completed Medical Devices Description No Information Available Encounters Type Date Location Provider Dx Diagnosis Office Visit 11/15/2018 Orthopedic Amanda Alireza, M25.552 Pain in left hip 1:30p Services Of [facility] Z96.642 Presence of left artificial hip joint M70.62 Trochanteric bursitis, left hip M25.561 Pain in right knee Office Visit 11/12/2018 [facility] L97.519 Non-prs chronic 11:30a For Infectious Yisel CERTIFIED ALCOHOL AND DRUG COUNSELOR ulcer oth prt Diseases right foot w unsp severity Office Visit 10/22/2018 [facility] Internal Echo Rivero, J44.1 Chronic 4:00p Medicine - Ccmob N.P. obstructive pulmonary disease w (acute) exacerbation I50.33 Acute on chronic diastolic (congestive) heart failure L08.9 Local infection of the skin and subcutaneous tissue, unsp M25.552 Pain in left hip M25.561 Pain in right knee K59.00 Constipation, unspecified Office Visit 10/17/2018 [facility] Elinor Muñoz, J96.21 Acute and chronic 9:29a claire Ferguson M.D. respiratory Hospitalists failure with hypoxia J44.1 Chronic obstructive pulmonary disease w (acute) exacerbation I50.33 Acute on chronic diastolic (congestive) heart failure L97.519 Non-prs chronic ulcer oth prt right foot w unsp severity Office Visit 10/16/2018 [facility] Elinor Muñoz, I50.33 Acute on chronic 9:28a claire Ferguson M.D. diastolic Hospitalists (congestive) heart failure J96.21 Acute and chronic respiratory failure with hypoxia J44.1 Chronic obstructive pulmonary disease w (acute) exacerbation Office Visit 10/15/2018 [facility] Elinor Muñoz, I50.33 Acute on chronic 9:28a claire Ferguson M.D. diastolic Hospitalists (congestive) heart failure J96.21 Acute and chronic respiratory failure with hypoxia J44.1 Chronic obstructive pulmonary disease w (acute) exacerbation I71.4 Abdominal aortic aneurysm, without rupture Office Visit 10/15/2018 [facility] L97.419 Non- prs chr 9:45a AT [facility] Yisel CERTIFIED ALCOHOL AND DRUG COUNSELOR ulcer of right heel and midfoot w unsp severt Office Visit 10/14/2018 [facility] Elinor Muñoz, J96.21 Acute and 9:27a claire Ferguson M.D. chronic Hospitalists respiratory failure with hypoxia J44.1 Chronic obstructive pulmonary disease w (acute) exacerbation I50.33 Acute on chronic diastolic (congestive) heart failure Office Visit 10/13/2018 [facility] Elinor Muñoz, I50.33 Acute on chronic 9:25a claire Ferguson M.D. diastolic Hospitalists (congestive) heart failure J96.21 Acute and chronic respiratory failure with hypoxia J44.1 Chronic obstructive pulmonary disease w (acute) exacerbation I71.4 Abdominal aortic aneurysm, without rupture Office Visit 10/12/2018 [facility] Nini J96.11 Chronic 9:25a Assocclaire NP respiratory Hospitalists failure with hypoxia I11.0 Hypertensive heart disease with heart failure I50.9 Heart failure, unspecified J44.9 Chronic obstructive pulmonary disease, unspecified Office Visit 10/08/2018 9:00a Orthopedic Jerardo Anabella, L97.419 Non-prs chr Services Of ulcer of right C.M.A. 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 wound, right foot, initial encounter G60.8 Other hereditary and idiopathic neuropathies R20.0 Anesthesia of skin J44.9 Chronic obstructive pulmonary disease, unspecified Office Visit 09/27/2018 11:40a Public Service Director Internal Echo Rivero J44.9 Chronic Medicine - N.P. obstructive Ccmob pulmonary disease, unspecified L08.9 Local infection of the skin and subcutaneous tissue, unsp I50.9 Heart failure, unspecified Office Visit 09/24/2018 1:45p Pulmonology And Sabrina J44.9 Chronic Sleep Services Of MD Neom obstructive Public Service Director pulmonary disease, unspecified R09.02 Hypoxemia Office Visit 09/20/2018 9:17a [facility] Shanti Cody, J96.21 Acute and chronic Assoc,pc N.P. respiratory Hospitalists failure with hypoxia I50.23 Acute on chronic systolic (congestive) heart failure J44.1 Chronic obstructive pulmonary disease w (acute) exacerbation I11.0 Hypertensive heart disease with heart failure Office Visit 09/19/2018 9:16a [facility] Shanti Cody, J96.21 Acute and chronic Assoc,pc N.P. respiratory Hospitalists failure with hypoxia J44.1 Chronic obstructive pulmonary disease w (acute) exacerbation Office Visit 09/18/2018 [facility] Neida J96.21 Acute and chronic 9:16a Assoc,pc DARBY Santos respiratory Hospitalists failure with hypoxia R74.8 Abnormal levels of other serum enzymes I50.9 Heart failure, unspecified I11.0 Hypertensive heart disease with heart failure Office Visit 09/17/2018 9:15a [facility] Nini I13.0 Hyp hrt & chr Assoc,claire Charles, UNIQUE hussein dis w hrt Hospitalists fail and stg 1-4/unsp chr kdny I50.9 Heart failure, unspecified N18.9 Chronic kidney disease, unspecified J44.9 Chronic obstructive pulmonary disease, unspecified Office Visit 09/13/2018 10:00a [facility] Internal Echo Rivero, L08.9 Local infection of Medicine - N.P. the skin and Ccmob subcutaneous tissue, unsp J44.1 Chronic obstructive pulmonary disease w (acute) exacerbation Office Visit 08/30/2018 3:40p [facility] Internal Echo Rivero, J44.1 Chronic obstructive Medicine - N.P. pulmonary disease w Ccmob (acute) exacerbation I50.9 Heart failure, unspecified [facility] 8:38a Assocclaire M.D. obstructive Hospitalists pulmonary disease w (acute) exacerbation I50.33 Acute on chronic diastolic (congestive) heart failure I35.0 Nonrheumatic aortic (valve) stenosis Office [facility]2018 [facility] J[facility].21 Acute and 8:37a Assclaire nation M.D. 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 systolic (congestive) heart failure J44.9 Chronic obstructive pulmonary disease, unspecified Office Visit 07/26/2018 3:40p [facility] Internal Echo Rivero J44.1 Chronic obstructive Medicine - N.P. 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 J44.9 Chronic obstructive pulmonary disease, unspecified D64.9 Anemia, unspecified D63.8 Anemia in other chronic diseases classified elsewhere Z22.39 Carrier of other specified bacterial diseases G62.9 Polyneuropathy, unspecified Office Visit 07/18/2018 [facility] Zeinab Paola, I50.23 Acute on chronic 8:53a Assoc,pc CERTIFIED ALCOHOL AND DRUG COUNSELOR systolic Hospitalists (congestive) heart failure J96.21 Acute and chronic respiratory failure with hypoxia R74.8 Abnormal levels of other serum enzymes I11.0 Hypertensive heart disease with heart failure Z22.39 Carrier of other specified bacterial diseases J44.9 Chronic obstructive pulmonary disease, unspecified G62.9 Polyneuropathy, unspecified Office Visit 07/17/2018 [facility] Zeinab Paola, I50.23 Acute on chronic 8:52a Assoc,pc CERTIFIED ALCOHOL AND DRUG COUNSELOR systolic Hospitalists (congestive) heart failure J96.21 Acute and chronic respiratory failure with hypoxia 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 G62.9 Polyneuropathy, unspecified Z22.39 Carrier of other specified bacterial diseases Office Visit 07/16/2018 [facility] Zeinab Paola, I50.23 Acute on chronic 8:52a Assoc,pc CERTIFIED ALCOHOL AND DRUG COUNSELOR systolic Hospitalists (congestive) heart failure J96.21 Acute and chronic respiratory failure with hypoxia I11.0 Hypertensive heart disease with heart failure R74.8 Abnormal levels of other serum enzymes D64.9 Anemia, unspecified F41.9 Anxiety disorder, unspecified G62.9 Polyneuropathy, unspecified Office Visit 07/15/2018 [facility] Zeinab Paola, I50.23 Acute on chronic 8:51a Assoc,pc CERTIFIED ALCOHOL AND DRUG COUNSELOR systolic Hospitalists (congestive) heart failure J96.21 Acute and chronic respiratory failure with hypoxia I11.0 Hypertensive heart disease with heart failure R74.8 Abnormal levels of other serum enzymes 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 J44.9 Chronic obstructive pulmonary disease, unspecified G62.9 Polyneuropathy, unspecified I35.0 Nonrheumatic aortic (valve) stenosis Office Visit 07/14/2018 [facility] Zeinab Paola, I50.23 Acute on chronic 8:51a Assoc,pc CERTIFIED ALCOHOL AND DRUG COUNSELOR systolic Hospitalists (congestive) heart failure J96.21 Acute and chronic respiratory failure with hypoxia I11.0 Hypertensive heart disease with heart failure D64.9 Anemia, unspecified I35.0 Nonrheumatic aortic (valve) stenosis 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 J44.9 Chronic obstructive pulmonary disease, unspecified G62.9 Polyneuropathy, unspecified Office Visit 07/12/2018 [facility] J96.11 Chronic 8:50a Assoc,pc Deshawn CERTIFIED ALCOHOL AND DRUG COUNSELOR respiratory Hospitalists failure with hypoxia J44.9 Chronic obstructive pulmonary disease, unspecified I50.23 Acute on chronic systolic (congestive) heart failure I11.0 Hypertensive heart disease with heart failure Office Visit 07/05/2018 [facility] J44.9 Chronic 3:00p Medicine-Derek ChaviraPDeep obstructive pulmonary disease, unspecified Office Visit 07/02/2018 Pulmonology And Sleep Sabrina J44.9 Chronic 1:30p Services Of [facility] MD Nemo obstructive pulmonary disease, unspecified J96.12 Chronic respiratory failure with hypercapnia Office Visit 06/28/2018 8:31a [facility] Deborah J44.0 Chr obstructive Assoc,claire Jacobs MD pulmon disease Hospitalists with (acute) lower resp infct J20.9 Acute bronchitis, unspecified I50.9 Heart failure, unspecified Office Visit 06/27/2018 8:30a [facility] Deborah J44.1 Chronic Assoc,claire Jacobs MD obstructive Hospitalists pulmonary disease w (acute) exacerbation I50.9 Heart failure, unspecified F41.9 Anxiety disorder, unspecified Office Visit 06/27/2018 3:12p Pulmonology And Sabrina I50.21 Acute systolic Sleep Services Of MD Nemo (congestive) heart Public Service Director failure J44.1 Chronic obstructive pulmonary disease w (acute) exacerbation Office Visit 06/26/2018 8:30a [facility] Deborah J44.1 Chronic Assoc,claire Jacobs MD obstructive Hospitalists pulmonary disease w (acute) exacerbation I50.9 Heart failure, unspecified F41.9 Anxiety disorder, unspecified Z68.37 Body mass index (BMI) 37.0-37.9, adult Office Visit 06/26/2018 3:42p Pul[facility] And Sabrina I50.21 Acute systolic [facility] (congestive) heart Public Service Director failure J44.1 Chronic obstructive pulmonary disease w (acute) exacerbation Office Visit 06/25/2018 8:30a [facility] Wanda J96.21 Acute and chronic Assoc,claire Montaño M.D. respiratory Hospitalists failure with hypoxia J44.1 Chronic obstructive pulmonary disease w (acute) exacerbation I50.9 Heart failure, unspecified F41.9 Anxiety disorder, unspecified Office Visit 06/25/2018 9:43a [facility] Sabrina I50.21 Acute systolic [facility] (congestive) heart Public Service Director failure J44.1 Chronic obstructive pulmonary disease w (acute) exacerbation Office Visit 06/24/2018 8:29a [facility] Cary Dilchristina, J44.1 Chronic Assoc,pc obstructive Hospitalists pulmonary disease w (acute) exacerbation I50.9 Heart failure, unspecified F41.9 Anxiety disorder, unspecified G62.9 Polyneuropathy, unspecified I71.4 Abdominal aortic aneurysm, without rupture Office Visit 06/24/2018 11:31a [facility] Sabrina I50.21 Acute systolic [facility] (congestive) heart Public Service Director failure J44.1 Chronic obstructive pulmonary disease w (acute) exacerbation Office Visit 06/23/2018 8:29a [facility] Cary Stiles, J44.1 Chronic Assoc,pc obstructive Hospitalists pulmonary disease w (acute) exacerbation I50.9 Heart failure, unspecified G62.9 Polyneuropathy, unspecified I71.4 Abdominal aortic aneurysm, without rupture Office Visit 06/22/2018 8:29a [facility] Deborah J44.1 Chronic Assoc,pc MD Arlene obstructive Hospitalists pulmonary disease w (acute) exacerbation I50.9 Heart failure, unspecified I10 Essential (primary) hypertension F41.9 Anxiety disorder, unspecified Office Visit 06/22/2018 11:30a [facility] J96.12 Chronic [facility] respiratory Public Service Director failure with hypercapnia J96.11 Chronic respiratory failure with hypoxia I50.21 Acute systolic (congestive) heart failure J44.1 Chronic obstructive pulmonary disease w (acute) exacerbation Office Visit 06/21/2018 8:28a [facility] Pradip J96.01 Acute respiratory Assoc,pc MICHELLE Morrow failure with Hospitalists hypoxia I10 Essential (primary) hypertension I71.4 Abdominal aortic aneurysm, without rupture E78.5 Hyperlipidemia, unspecified Assessments Date Code Description Provider 12/03/2018 R32 Unspecified urinary incontinence Echo Rivero, N.P. 12/03/2018 M25.552 Pain in left hip Echo Rivero, N.P. 12/03/2018 M25.561 Pain in right knee Echo Rivero, N.P. 12/03/2018 S91.331D Puncture wound without foreign body, Echo Rivero, N.P. right foot, subsequent encounter 11/15/2018 M25.552 Pain in left hip Amanda Alireza, M.D. 11/15/2018 Z96.642 Presence of left artificial hip Amanda Lay M.D. joint 11/15/2018 M70.62 Trochanteric bursitis, left hip Amanda Lay M.D. 11/15/2018 M25.561 Pain in right knee Amanda Lay M.D. 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 disease with (acute) exacerbat 10/22/2018 I50.33 Acute on chronic diastolic Echo Varn, N.P. (congestive) heart failure 10/22/2018 L08.9 Local infection of the skin and Echo Varn, N.P. subcutaneous tissue, unspeci 10/22/2018 M25.552 Pain in left hip Echo Varn, N.P. 10/22/2018 M25.561 Pain in right knee Echo Varn, N.P. 10/22/2018 K59.00 Constipation, unspecified Echo Varn, N.P. 10/17/2018 J96.21 Acute and chronic respiratory Elinor Muñoz M.D. failure with hypoxia 10/17/2018 J44.1 Chronic obstructive pulmonary Elinor Muñoz M.D. disease w (acute) exacerbation 10/17/2018 I50.33 Acute on chronic diastolic Elinor Muñoz M.D. (congestive) heart failure 10/17/2018 L97.519 Non-prs chronic ulcer oth prt right Elinor Muñoz M.D. foot w unsp severity 10/16/2018 I50.33 Acute on chronic diastolic Elinor Muñoz M.D. (congestive) heart failure 10/16/2018 J96.21 Acute and chronic respiratory Elinor Muñoz M.D. failure with hypoxia 10/16/2018 J44.1 Chronic obstructive pulmonary Elinor Muñoz M.D. disease w (acute) exacerbation 10/15/2018 I50.33 Acute on chronic diastolic Elinor Muñoz M.D. (congestive) heart failure 10/15/2018 L97.419 Non-pressure chronic ulcer of right Faustina Francois Morillo, CERTIFIED ALCOHOL AND DRUG COUNSELOR heel and midfoot with unspecified severity 10/15/2018 J96.21 Acute and chronic respiratory Elinor Muñoz M.D. failure with hypoxia 10/15/2018 J44.1 Chronic obstructive pulmonary Elinor Muñoz M.D. disease w (acute) exacerbation 10/15/2018 I71.4 Abdominal aortic aneurysm, without Elinor Muñoz M.D. rupture 10/14/2018 J96.21 Acute and chronic respiratory Elinor Muñoz M.D. failure with hypoxia 10/14/2018 J44.1 Chronic obstructive pulmonary Elinor Muñoz M.D. disease w (acute) exacerbation 10/14/2018 I50.33 Acute on chronic jeannie Muñoz M.D. (congestive) heart failure 10/13/2018 I50.33 Acute on chronic diastolic Elinor Muñoz M.D. (congestive) heart failure 10/13/2018 J96.21 Acute and chronic respiratory Elinor Muñoz M.D. failure with hypoxia 10/13/2018 J44.1 Chronic obstructive pulmonary Elinor Muñoz M.D. disease w (acute) exacerbation 10/13/2018 I71.4 Abdominal aortic aneurysm, without Elinor Muñoz M.D. rupture 10/12/2018 J96.11 Chronic respiratory failure with Nini Charles NP hypoxia 10/12/2018 I11.0 Hypertensive heart disease with Nini Charles NP heart failure 10/12/2018 I50.9 Heart failure, unspecified Nini Charles, CERTIFIED ALCOHOL AND DRUG COUNSELOR 10/12/2018 J44.9 Chronic obstructive pulmonary Nini Charles CERTIFIED ALCOHOL AND DRUG COUNSELOR disease, unspecified 10/08/2018 L97.419 Non-prs chr ulcer of right heel and Jerardo Kyle MD midfoot w unsp severt 10/08/2018 I89.0 Lymphedema, not elsewhere classified Jerardo Kyle MD 10/04/2018 I10 Essential (primary) hypertension Sera Whitman NP 10/04/2018 I35.0 Nonrheumatic aortic (valve) stenosis Sera Whitman NP 10/04/2018 I42.9 Cardiomyopathy, unspecified Sera Whitman NP 10/04/2018 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 neuropathies 10/01/2018 R20.0 Anesthesia of skin Sameer Buckner M.D. 10/01/2018 J44.9 Chronic obstructive pulmonary Sameer Buckner M.D. disease, unspecified 09/27/2018 J44.9 Chronic obstructive pulmonary Echo Varlucio, N.P. disease, unspecified 09/27/2018 L08.9 Local infection of the skin and Echo Rivero, N.P. subcutaneous tissue, unspeci 09/27/2018 I50.9 Heart failure, unspecified Echo Rivero, N.P. 09/24/2018 J44.9 Chronic obstructive pulmonary Sabrina Chester MD disease, unspecified 09/24/2018 R09.02 Hypoxemia Sabrina Chester MD 09/20/2018 J96.21 Acute and chronic respiratory Lucio Valles.Miguelina. failure with hypoxia 09/20/2018 I50.23 Acute on chronic systolic Lucio Valles.Miguelina. (congestive) heart failure 09/20/2018 J44.1 Chronic obstructive pulmonary Shanti Cody N.P. disease w (acute) exacerbation 09/20/2018 I11.0 Hypertensive heart disease with Shanti Escobar, N.P. heart failure 09/19/2018 J96.21 Acute and chronic respiratory Shanti Cody N.P. failure with hypoxia 09/19/2018 J44.1 Chronic obstructive pulmonary Shanti Cody N.P. disease w (acute) exacerbation 09/18/2018 J96.21 Acute and chronic respiratory Neida O'dominic, PA-C failure with hypoxia 09/18/2018 R74.8 Abnormal levels of other serum Neida O'dominic, PA-C enzymes 09/18/2018 I50.9 Heart failure, unspecified Neida O'dominic, PA-C 09/18/2018 I11.0 Hypertensive heart disease with Neida O'dominic, PA-C heart failure 09/17/2018 I13.0 Hyp hrt & chr kdny dis w hrt fail Nini Charles, CERTIFIED ALCOHOL AND DRUG COUNSELOR and stg 1-4/unsp chr kdny 09/17/2018 I50.9 Heart failure, unspecified Nini Charles, CERTIFIED ALCOHOL AND DRUG COUNSELOR 09/17/2018 N18.9 Chronic kidney disease, unspecified Nini Araceli, CERTIFIED ALCOHOL AND DRUG COUNSELOR 09/17/2018 J44.9 Chronic obstructive pulmonary Nini Araceli, CERTIFIED ALCOHOL AND DRUG COUNSELOR disease, unspecified 09/13/2018 L08.9 Local infection of the skin and Echo Varn, N.P. subcutaneous tissue, unspeci 09/13/2018 J44.1 Chronic obstructive pulmonary Echo Varn, N.P. disease with (acute) exacerbat 08/30/2018 J44.1 Chronic obstructive pulmonary Echo Varn, N.P. disease with (acute) exacerbat 08/30/2018 I50.9 Heart failure, unspecified Echo Varn, N.P. 08/22/2018 J44.1 Chronic obstructive pulmonary Benton Steel M.D. disease w (acute) exacerbation 08/22/2018 I50.33 Acute on chronic diastolic Benton Steel M.D. (congestive) heart failure 08/22/2018 I35.0 Nonrheumatic aortic (valve) stenosis Benton Steel M.D. 08/21/2018 J96.21 Acute and chronic respiratory Benton Steel M.D. failure with hypoxia 08/21/2018 I50.9 Heart failure, unspecified Benton Steel M.D. 08/21/2018 J44.1 Chronic obstructive pulmonary Benton Steel M.D. disease w (acute) exacerbation 08/21/2018 I35.0 Nonrheumatic aortic (valve) stenosis Benton Steel M.D. 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 heart failure 08/07/2018 J44.9 Chronic obstructive pulmonary Oskar Shultz M.D. disease, unspecified 07/26/2018 J44.1 Chronic obstructive pulmonary Echo Varn, N.P. disease w (acute) exacerbation 07/26/2018 I50.9 Heart failure, unspecified Echo Varn, N.P. 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 Zeinab Paola, CERTIFIED ALCOHOL AND DRUG COUNSELOR coronary artery w/o ang pctrs 07/19/2018 J44.9 Chronic obstructive pulmonary Zeinab Paola, CERTIFIED ALCOHOL AND DRUG COUNSELOR disease, unspecified 07/19/2018 D64.9 Anemia, unspecified Zeinab Paola, CERTIFIED ALCOHOL AND DRUG COUNSELOR 07/19/2018 D63.8 Anemia in other chronic diseases Zeinab Paola, CERTIFIED ALCOHOL AND DRUG COUNSELOR classified elsewhere 07/19/2018 Z22.39 Carrier of other specified bacterial Zeinab Paola, CERTIFIED ALCOHOL AND DRUG COUNSELOR diseases 07/19/2018 G62.9 Polyneuropathy, unspecified Zeinab Paola, CERTIFIED ALCOHOL AND DRUG COUNSELOR 07/18/2018 I50.23 Acute on chronic systolic Zeinab Paola, CERTIFIED ALCOHOL AND DRUG COUNSELOR (congestive) heart failure 07/18/2018 J96.21 Acute and chronic respiratory Zeinab Paola, CERTIFIED ALCOHOL AND DRUG COUNSELOR failure with hypoxia 07/18/2018 R74.8 Abnormal levels of other serum Zeinab Paola, CERTIFIED ALCOHOL AND DRUG COUNSELOR enzymes 07/18/2018 I11.0 Hypertensive heart disease with Zeinab Paola, CERTIFIED ALCOHOL AND DRUG COUNSELOR heart failure 07/18/2018 Z22.39 Carrier of other specified bacterial Zeinab Paola, CERTIFIED ALCOHOL AND DRUG COUNSELOR diseases 07/18/2018 J44.9 Chronic obstructive pulmonary Zeinab Paola, CERTIFIED ALCOHOL AND DRUG COUNSELOR disease, unspecified 07/18/2018 G62.9 Polyneuropathy, unspecified Zeinab Paola, CERTIFIED ALCOHOL AND DRUG COUNSELOR 07/17/2018 I50.23 Acute on chronic systolic Zeinab Paola, CERTIFIED ALCOHOL AND DRUG COUNSELOR (congestive) heart failure 07/17/2018 J96.21 Acute and chronic respiratory Zeinab Paola, CERTIFIED ALCOHOL AND DRUG COUNSELOR failure with hypoxia 07/17/2018 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 martinez Zeinab Paola, CERTIFIED ALCOHOL AND DRUG COUNSELOR coronary artery w/o ang pctrs 07/17/2018 G62.9 Polyneuropathy, unspecified Zeinab Paola, CERTIFIED ALCOHOL AND DRUG COUNSELOR 07/17/2018 Z22.39 Carrier of other specified bacterial Zeinab Paola, CERTIFIED ALCOHOL AND DRUG COUNSELOR diseases 07/16/2018 I50.23 Acute on chronic systolic Zeinab Paola, CERTIFIED ALCOHOL AND DRUG COUNSELOR (congestive) heart failure 07/16/2018 J96.21 Acute and chronic respiratory Zeinab Paola, CERTIFIED ALCOHOL AND DRUG COUNSELOR failure with hypoxia 07/16/2018 I11.0 Hypertensive heart disease with Zeinab Paola, CERTIFIED ALCOHOL AND DRUG COUNSELOR heart failure 07/16/2018 R74.8 Abnormal levels of other serum Zeinab Paola, CERTIFIED ALCOHOL AND DRUG COUNSELOR enzymes 07/16/2018 D64.9 Anemia, unspecified Zeinab Paola, CERTIFIED ALCOHOL AND DRUG COUNSELOR 07/16/2018 F41.9 Anxiety disorder, unspecified Zeinab Paola, CERTIFIED ALCOHOL AND DRUG COUNSELOR 07/16/2018 G62.9 Polyneuropathy, unspecified Zeinab Paola, CERTIFIED ALCOHOL AND DRUG COUNSELOR 07/15/2018 I50.23 Acute on chronic systolic Zeinab Paola, CERTIFIED ALCOHOL AND DRUG COUNSELOR (congestive) heart failure 07/15/2018 J96.21 Acute and chronic respiratory Zeinab Paola, CERTIFIED ALCOHOL AND DRUG COUNSELOR failure with hypoxia 07/15/2018 I11.0 Hypertensive heart disease with Zeinab Paola, CERTIFIED ALCOHOL AND DRUG COUNSELOR heart failure 07/15/2018 R74.8 Abnormal levels of other serum Zeinab Paola, CERTIFIED ALCOHOL AND DRUG COUNSELOR enzymes 07/15/2018 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 martinez Zeinab Paola, CERTIFIED ALCOHOL AND DRUG COUNSELOR coronary artery w/o ang pctrs 07/15/2018 J44.9 Chronic obstructive pulmonary Zeinab Paola, CERTIFIED ALCOHOL AND DRUG COUNSELOR disease, unspecified 07/15/2018 G62.9 Polyneuropathy, unspecified Zeinab Paola, CERTIFIED ALCOHOL AND DRUG COUNSELOR 07/15/2018 I35.0 Nonrheumatic aortic (valve) stenosis Zeianb Paola, CERTIFIED ALCOHOL AND DRUG COUNSELOR 07/14/2018 I50.23 Acute on chronic systolic Zeinab Paola, CERTIFIED ALCOHOL AND DRUG COUNSELOR (congestive) heart failure 07/14/2018 J96.21 Acute and chronic respiratory Zeinab Paola, CERTIFIED ALCOHOL AND DRUG COUNSELOR failure with hypoxia 07/14/2018 I11.0 Hypertensive heart disease with Zeinab Paola, CERTIFIED ALCOHOL AND DRUG COUNSELOR heart failure 07/14/2018 D64.9 Anemia, unspecified Zeinab Paola, CERTIFIED ALCOHOL AND DRUG COUNSELOR 07/14/2018 I35.0 Nonrheumatic aortic (valve) stenosis Zeinab Paola, CERTIFIED ALCOHOL AND DRUG COUNSELOR 07/14/2018 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 [EKG] 07/13/2018 J96.21 Acute and chronic respiratory Zeinab Paola, CERTIFIED ALCOHOL AND DRUG COUNSELOR failure with hypoxia 07/13/2018 I50.23 Acute on chronic systolic Zeinab Paola, CERTIFIED ALCOHOL AND DRUG COUNSELOR (congestive) heart failure 07/13/2018 I11.0 Hypertensive heart disease with Zeinab Paola, CERTIFIED ALCOHOL AND DRUG COUNSELOR heart failure 07/13/2018 J44.9 Chronic obstructive pulmonary Zeinab Paola, CERTIFIED ALCOHOL AND DRUG COUNSELOR disease, unspecified 07/13/2018 I35.0 Nonrheumatic aortic (valve) stenosis Zeinab Paola, CERTIFIED ALCOHOL AND DRUG COUNSELOR 07/13/2018 G62.9 Polyneuropathy, unspecified Zeinab Paola, CERTIFIED ALCOHOL AND DRUG COUNSELOR 07/12/2018 J96.11 Chronic respiratory failure with Aimee Shortle, CERTIFIED ALCOHOL AND DRUG COUNSELOR hypoxia 07/12/2018 J44.9 Chronic obstructive pulmonary Aimee Shortle, CERTIFIED ALCOHOL AND DRUG COUNSELOR disease, unspecified 07/12/2018 I50.23 Acute on chronic systolic Aimee Shortle, CERTIFIED ALCOHOL AND DRUG COUNSELOR (congestive) heart failure 07/12/2018 I11.0 Hypertensive heart disease with Aimee Shortle, CERTIFIED ALCOHOL AND DRUG COUNSELOR heart failure 07/05/2018 J44.9 Chronic obstructive pulmonary Echo Varn, N.P. disease, unspecified 07/02/2018 J44.9 Chronic obstructive pulmonary Sabrina Chester MD disease, unspecified 07/02/2018 J96.12 Chronic respiratory failure with Sabrina Chester MD hypercapnia 06/28/2018 J44.0 Chronic obstructive pulmon disease w Deborah Jacobs MD acute lower resp infct 06/28/2018 J20.9 Acute bronchitis, unspecified Deborah Jacobs MD 06/28/2018 I50.9 Heart failure, unspecified Deborah Jacobs MD 06/27/2018 J44.1 Chronic obstructive pulmonary Deborah Jacobs MD disease w (acute) exacerbation 06/27/2018 I50.21 Acute systolic (congestive) heart Sabrina Chester MD failure 06/27/2018 I50.9 Heart failure, unspecified Deborah Jacobs MD 06/27/2018 J44.1 Chronic obstructive pulmonary Sabrina Chester MD disease with (acute) exacerbat 06/27/2018 F41.9 Anxiety disorder, unspecified Deborah Jacobs MD 06/26/2018 J44.1 Chronic obstructive pulmonary Deborah Jacobs MD disease w (acute) exacerbation 06/26/2018 I50.21 Acute systolic (congestive) heart Sabrina Chester MD failure 06/26/2018 I50.9 Heart failure, unspecified Deborah Jacobs MD 06/26/2018 J44.1 Chronic obstructive pulmonary Sabrina Chester MD disease with (acute) exacerbat 06/26/2018 F41.9 Anxiety disorder, unspecified Deborah Jacobs MD 06/26/2018 Z68.37 Body mass index (BMI) 37.0-37.9, Deborah Jacobs MD adult 06/25/2018 J96.21 Acute and chronic respiratory Wanda Montaño M.D. failure with hypoxia 06/25/2018 I50.21 Acute systolic (congestive) heart Sabrina Chester MD failure 06/25/2018 J44.1 Chronic obstructive pulmonary Wanda Montaño M.D. disease w (acute) exacerbation 06/25/2018 J44.1 Chronic obstructive pulmonary Sabrina Chester MD disease with (acute) exacerbat 06/25/2018 I50.9 Heart failure, unspecified Wanda Montaño M.D. 06/25/2018 F41.9 Anxiety disorder, unspecified Wanda Montaño M.D. 06/24/2018 J44.1 Chronic obstructive pulmonary Cary Stiles MD disease w (acute) exacerbation 06/24/2018 I50.21 Acute systolic (congestive) heart Sabrina Chester MD failure 06/24/2018 I50.9 Heart failure, unspecified Cary Stiles MD 06/24/2018 J44.1 Chronic obstructive pulmonary Sabrina Chester MD disease with (acute) exacerbat 06/24/2018 F41.9 Anxiety disorder, unspecified Cary Stiles MD 06/24/2018 G62.9 Polyneuropathy, unspecified Cary Stiles MD 06/24/2018 I71.4 Abdominal aortic aneurysm, without Cary Stiles MD rupture 06/23/2018 J44.1 Chronic obstructive pulmonary Cary Stiles MD disease w (acute) exacerbation 06/23/2018 I50.9 Heart failure, unspecified Cary Stiles MD 06/23/2018 G62.9 Polyneuropathy, unspecified Cary Stiles MD 06/23/2018 I71.4 Abdominal aortic aneurysm, without Cary Stiles MD rupture 06/22/2018 R94.31 Abnormal electrocardiogram [ECG] Rosas Benson M.D. [EKG] 06/22/2018 J44.1 Chronic obstructive pulmonary Deborah Jacobs MD disease w (acute) exacerbation 06/22/2018 J96.12 Chronic respiratory failure with Sabrina Chester MD hypercapnia 06/22/2018 I50.9 Heart failure, unspecified Deborah Jacobs MD 06/22/2018 J96.11 Chronic respiratory failure with Sabrina Chester MD hypoxia 06/22/2018 I10 Essential (primary) hypertension Deborah Jacobs MD 06/22/2018 I50.21 Acute systolic (congestive) heart Sabrina Chester MD failure 06/22/2018 F41.9 Anxiety disorder, unspecified Deborah Jacobs MD 06/22/2018 J44.1 Chronic obstructive pulmonary Sabrina Chester MD disease with (acute) exacerbat 06/21/2018 J96.01 Acute respiratory failure with MICHELLE Wallace hypoxia 06/21/2018 I50.9 Heart failure, unspecified Rosas Benson M.D. 06/21/2018 I10 Essential (primary) hypertension MICHELLE Wallace 06/21/2018 I71.4 Abdominal aortic aneurysm, without MICHELLE Wallace rupture 06/21/2018 E78.5 Hyperlipidemia, unspecified MICHELLE Wallace Plan of Treatment Future Appointment(s):12/17/2018 3:30 pm - Sabrina Chester MD at [facility]01/15/2019 2:30 pm - Oskar Shultz M.D. at [facility]02/14/2019 11:30 am - Oskar Shultz M.D. at [facility]12/03/2018 - Echo Rivero, N.P.R32 Unspecified urinary incontinenceNew Medication:Oxybutynin Chloride ER 10 mg - 1 by mouth every dayComments:To hep you with your urinary issues I have prescribed Oxybutynin 10 mg. Take 1 tablet daily. This should help you control your bladder better. If you do not notice any improvement after a few weeks, just stop taking it.M25.552 Pain in left hipComments:To help you with your mobility I have ordered a wheelchair for you.M25.561 Pain in right kneeS91.331D Puncture wound without foreign body, right foot, subsequent encounter Functional Status Description No Information Available Mental Status Description No Information Available Referrals Refer to Dr Reason for Referral Status Appt [facility] Patient with foot wound. Has been to Dr Gomez and Sent he did not feel she was a surgical candidate. Was referred for a boot but they are unable to fit her for this due to her wound. I am referring her back for management. [address] [place] [address] [phone] Amanda Lay MD Patient has left hip and right knee pain Scheduled 2018 referred for evaluation and treatment. Thank you for seeing this pleasant patient. [address] [facility] [place] [address] [place] [address] [phone] [facility] Orthotics: Right Left Bilateral Sent Full-length custom Accommodative Medial Post 3/4 length custom Semi-Rigid Deep Heel UCBL Rigid Tanner's extension Carbon fiber baseplate to shield 1st MP joint Carbon fiber baseplate, full length to shield midfoot Other: Braces: Right Left Bilateral Solid AFO - custom molded with cut out at 1st MT head to take pressure off ulcer Articulated AFO [employer] (custom leather ankle gauntlet) [place] ([employer]arcot Restraint Orthotic Walker) [employer] Other: [address] [facility] [address] [place] [address] [phone] Oksar Shultz MD Patient with recent hospitalization for COPD and Sent CHF. Referred for follow up. [address] [place] [address] [phone] Alina Mukherjee MD Sent [address] [place] [id number] [phone] Wound Clinic Patient with infected wound following removal of callus Sent of right foot. She has been on Doxycycline and using Mupirocin ointment. referred for evaluation and treatment. [address] [place] [address] [phone] Sabrina Chester MD Patient is referred for COPD exacerbation. Sent 2018 [address] [facility] [address] [place] [address] [phone] Oskar Shultz MD Patient with recent admission for CHF referred for Sent 08/21/[address] [place] [address] [phone]
--- OUTSIDE RECORDS SUMMARY | 2018-12-27 18:22 | XMS REPORT | Continuity of Care Document ---
:1940 External Reference #:[id number] Author Name Sabrina Chester MD (transmitted by agent of provider Zully Vidal) Address [address], [address] [place] [address] Care Team Providers Name Role Phone [facility] Care Team Information Life Sciences Teacher [phone] [place] - Physical Therapist Angie Zimmer MD - Internal Care Team Information Life Sciences Teacher Medicine Problems Active Problems Provider Date Benign [...] Use Denies Drug Use Smoking Status Reviewed: 12/17/18 Patient is a former Quit in 2004, [...] Chloride 1 by mouth every 30tabs R32 Echo Varn, 12/03/2018 ER day N.P. 10mg Tablets ER 24HR Standard Wheelchair Use prn for Echo Varn, 11/29/2018 mobility N.P. Robaxin-750 1 tab by mouth 30tabs Sundar Mendiola NP 11/18/2018 750mg every 6 hours as Tablets needed muscle ache Doxycycline Hyclate one tablet twice Jones, 11/06/2018 daily Asia 100mg Capsules AZRA Arevalo, RN, [employer] FIELD AGENT-BC Senokot one tablet as 30tabs K59.00 Echo Varn, 10/22/2018 8.6mg Tablets needed for N.P. constipation Oxygen please use o2 at 1units R09.02 Sabrina Chester, 09/24/2018 Misc 5-7L/min with MD exertion and at rest Cetirizine HCL 1 by mouth every 30tabs J44.1 Echo Varlucio, 08/30/2018 10mg day N.P. Tablets Oxygen Mask (Mask needs 2units J44.9 Echo Amayalucio, 07/05/2018 perforations along N.P. side) Wear when sleeping. Irbesartan 1 by mouth every 90tabs Echo Mat, 03/08/2018 150mg day N.P. Tablets Ventolin HFA 2 puffs 4 times a 24gm J44.1 Echo Mat, 11/16/2017 day as needed N.P. 108(90Base) mcg/Act Aerosol Furosemide Take Three Tablets 90tabs Echo Mat, 10/14/2017 20mg By Mouth Every Day N.P. Tablets Nebulizer use three times a 1units Echo Mat, 07/13/2017 Device day as needed N.P. Nebulizer use three times a 1units Echo Varlucio, 07/13/2017 Kit/Tubing/Mouthpiec day as needed N.P. e Kit Ipratropium 1 vial in 540ml Echo Mat, 07/13/2017 Baker/Albuterol nebulizer three N.P. Sulfate times a day [...] 60 mg sc q6mon 60mg M81.0 Echo Varn, 08/26/2013 60mg/ml N.P. Solution Z92.29 Clindamycin HCL [...] cap three times a day 180caps Echo Rivero, N.P. 100mg as needed for cough Capsules Miralax take 1 packet daily as Unknown [id number] Packet needed for constipation Ferrous Sulfate 1 by mouth every other Unknown 325mg day Tablets Fluzone High-Dose Unknown 0.5ml Mylene Albuterol Sulfate 2 puffs every 12 hours Unknown Aspir-81 1 by mouth every day Unknown 81mg Tablets DR Calcium 500/D 1 po qd Unknown [id number]-Oaph Chewtabs Senna Laxative 1 po hs prn [...] Visit A 10/27/2016 1MG Injection Prolia Injection, DenosumabAlexi M.D. 02/29/2016 1MG Injection Prolia Injection, Denosumab, Nurse Visit C 05/11/2015 1MG Injection Influenza Virus Vaccine Unknown 01/14/2015 Injection Prolia Injection, Denosumab, Nurse Visit C 10/07/2014 1MG Injection Prolia Injection, Denosumab, Alexi Kim M.D. 04/20/2014 1MG Injection Prolia Injection, Denosumab, Nurse Visit [place] 10/06/2013 1MG Injection Immunizations CPT Code Status Date Vaccine Lot # [id number] Given 01/18/2018 Influenza Virus Vaccine, Quadrivalent, Split, Preservative Free 71130 Given 01/18/2018 Influenza Virus Vaccine, Quadrivalent, Split, Preservative Free 99596 Given 12/27/2015 Influenza Virus Vaccine, Quadrivalent, Split, Preservative Free 68199 Given 01/28/2015 Influenza Virus 3Yrs & Over 27691 Given 02/04/2014 Flu Vaccine Split Virus Preservative Free For [id number] Indiv 3Yr Older 44273 Given 08/25/2013 Pneumococcal Conjugate Vaccine 13 Valent For [id number] Intramuscular Use Q2038 Given 01/18/2011 Fluzone Vaccine [id number] 25766 Given 02/04/2010 Influenza Virus 3Yrs & Over [id number] 13475 Given 04/21/2009 Influenza Virus Vaccine, Pandemic Formulation 47676 Given 01/29/2008 Influenza Virus 3Yrs & Over 59336 Given 01/29/2008 Influenza Virus 3Yrs & Over 09770 Given 07/24/2007 Pneumonia Vaccine [id number] 38373 Given 07/24/2007 Tetanus And Diptheria (Td) For Adult Use Preservative Free 46402 Given 07/24/2007 Tetanus And Diptheria (Td) For Adult Use Preservative Free 62411 Given 01/22/2007 Influenza Virus 3Yrs & Over 16136 Given 01/22/2007 Influenza Virus 3Yrs & Over 34043 Vital Signs Date Vital Result Comment 12/17/2018 3:17pm Height 63.5 inches 5'3.50" Heart Rate 72 /min BP Systolic Sitting 100 mmHg BP Diastolic Sitting 70 mmHg O2 % BldC Oximetry 80 % 12/03/2018 2:13pm Height 63.5 inches 5'3.50" Weight 250.00 lb Heart Rate 51 /min BP Systolic 99 mmHg BP Diastolic 60 mmHg Body Temperature 98.4 F O2 % BldC Oximetry 94 % on 4LNC BMI (Body Mass Index) 43.6 kg/m2 Results Test Date Facility Test Result H/L Range Note Laboratory test 11/01/2018 [facility] Tissue Culture SEE RESULT 1, [address] & [place] [address] [phone] Surgical Pathology SEE RESULT BELOW 3 CBC Auto 10/12/2018 [facility] White Blood 6.2 10^3/uL Normal 3.5-10.[address] [place] [address] [phone] Red Blood Count 3.74 10^6/uL Normal 3.70-4.87 [...] Blood Cells % 0.0 Laboratory test 10/12/2018 [facility] B-Type 1070 pg/mL High < =[address] [place] [address] Peptide BNP [phone] Lactic Acid 0.7 mmol/L Normal 0.5-2.0 4 Comp Metabolic 10/12/2018 [facility] Sodium 137 mmol/L Normal 135-[address] [place] [address] [phone] Potassium 4.1 mmol/L Normal 3.5-5.0 Chloride 99 [...] Egfr 76.2 >60 5 Laboratory test 10/12/2018 [facility] C Reactive 19.83 mg/L High <8.[address] [place] [address] [phone] Troponin-I (TnI) 0.05 ng/mL Critical high <0.04 6 Blood Culture SEE RESULT BELOW 7 Urinalysis Profile 09/17/2018 [facility] Urine Color Yellow [address] [place] [address] [phone] Urine Appearance Cloudy Urine Specific [place] 1.006 Low 1.010-1.030 Urine pH 7.0 Normal 5-9 Urine Urobilinogen Negative Negative Urine Ketones Negative Negative Urine Protein Negative Negative Urine Leukocytes Negative Negative Urine Blood Negative Negative Urine Nitrite Negative Negative Urine Bilirubin Negative Negative Urine Glucose Negative Negative Laboratory 09/17/2018 [facility] Partial 42.2 High 26.0-38.0 test finding 101 [facility] [place] [address] PTT [phone] Inr/Protime 09/17/2018 [facility] Inr 1.05 Normal 0.82-1.[address] [place] [address] [phone] Laboratory 09/17/2018 [facility] Magnesium 2.0 mg/dL Normal 1.9-2.7 test finding [address] [place] [address] [phone] Troponin-I (TnI) 0.04 ng/mL Critical high <0.04 9 Comp Metabolic 09/17/2018 [facility] Sodium 138 mmol/L Normal 135-[address] [place] [address] [phone] Potassium 4.2 mmol/L Normal 3.5-5.0 Chloride 99 [...] Egfr 58.1 >60 10 Laboratory test 09/17/2018 [facility] Lactic Acid 1.5 mmol/L Normal 0.5-2.0 [address] [place] [address] [phone] B-Type Natriuretic Peptide BNP 438 pg/mL High <=100 CBC Auto 09/17/2018 [facility] White Blood 7.6 10^3/uL Normal 3.5-10.[address] [place] [address] [phone] Red Blood Count 3.72 10^6/uL Normal 3.70-4.87 [...] Red Blood Cells % 0.0 Laboratory 09/17/2018 [facility] Troponin-I 0.04 Critical < 0.04 [address] (TnI) ng/[place] [address] [phone] Urinalysis 08/19/2018 [facility] Urine Color Yellow Profile [address] [place] [address] [phone] Urine Appearance Cloudy Urine Specific [place] 1.010 Normal 1.010-1.030 Urine pH 6.0 Normal 5-9 Urine Urobilinogen Negative Negative Urine Ketones Negative Negative Urine Protein Negative Negative Urine Leukocytes Negative Negative Urine Blood Negative Negative * * Abnormal Negative 13 Urine Nitrite Negative Negative Urine Bilirubin Negative Negative Urine Glucose Negative Negative Influenza A & B 08/19/2018 [facility] Influenza A NEGATIVE Negative [address] [place] [address] [phone] Influenza B Molecular NEGATIVE Negative Laboratory 08/19/2018 [facility] Troponin-I 0.05 Critical < 0.04 15 test finding 101 [facility] (TnI) ng/[place] [address] [phone] C Reactive Protein 17.59 mg/L High <8.01 D Dimer Quantitative 205 ng/mL Normal Less Than 230 16 Blood Culture SEE RESULT BELOW 17 CKMB 08/19/2018 [facility] CKMB ng/mL 2.7 ng/mL Normal 0.6- 6.3 [address] [place] [address] [phone] Laboratory test 08/19/2018 [facility] Creatine 97 U/L Normal 10-223 finding 101 [facility] Kinase(CK) [place] [address] [phone] Comp Metabolic 08/19/2018 [facility] Sodium 139 mmol/L Normal 135-145 Panel [address] [place] [address] [phone] Potassium 4.0 mmol/L Normal 3.5-5.0 Chloride 99 [...] >60 Egfr 60.7 >60 18 Laboratory 08/19/2018 [facility] Partial 39.0 High 26.0-36.[address] [place] [address] Time PTT [phone] Inr/Protime 08/19/2018 [facility] Inr 0.98 Normal 0.82-1.[address] [place] [address] [phone] CBC Auto Diff 08/19/2018 [facility] White Blood 6.9 10^3/uL Normal 3.5-10.[address] [place] [address] [phone] Red Blood Count 3.73 10^6/uL Normal 3.70-4.87 [...] Blood Cells % 0.0 Laboratory test 08/19/2018 [facility] Lactic Acid 1.2 mmol/L Normal 0.5-2.0 [address] [place] [address] [phone] B-Type Natriuretic Peptide BNP 412 pg/mL High <=100 Laboratory 08/19/2018 [facility] Troponin-I 0.05 Critical < 0.04 [address] (TnI) ng/[place] [address] [phone] Laboratory 08/16/2018 [facility] Ferritin 54.0 Normal 11-307 test finding [address] [place] ng/[place] [address] [phone] CBC Auto Diff 08/16/2018 [facility] White Blood 6.8 Normal 3.5 -10.[address] Count 10^3/uL [place], [place] [address] [phone] Red Blood Count 3.67 10^6/uL Low 3.70-4.87 [...] % 0.0 Iron & Iron Binding 08/16/2018 [facility] Iron 70 g/dL Normal 50-[address] [place], [place] [address] [phone] Unsaturated Iron Binding < 311 g/dL Total Iron Binding Capacity 326 g/dL Normal 250-450 Transferrin 233 mg/dL Normal 203-362 % Iron Saturation 21 % Normal 15-55 Laboratory test 07/12/2018 [facility] Rapid SEE RESULT [address] [place] [address] Antigen [phone] CBC Auto Diff 07/12/2018 [facility] White Blood 6.0 10^3/uL Normal 3.5-[address] Count 0.8 [place] [address] [phone] Red Blood Count 3.50 10^6/uL Low 3.70-4.87 [...] Blood Cells % 0 Comp Metabolic 07/12/2018 [facility] Sodium 135 mmol/L Normal 135-[address] [place] [address] [phone] Potassium 4.5 mmol/L Normal 3.5-5.0 Chloride 97 [...] Egfr 72.3 >60 23 Laboratory test 07/12/2018 [facility] Troponin-I (TnI) 0.03 ng/ mL <0.04 [address] [place] [address] [phone] Lactic Acid 0.7 mmol/L Normal 0.5-2.0 25 B-Type Natriuretic Peptide BNP 382 pg/mL High <=100 Magnesium 2.1 mg/dL Normal 1.9-2.7 Urinalysis Profile 07/12/2018 [facility] Urine Color Straw [address] [place], [place] [address] [phone] Urine Appearance Clear Urine Specific Carlisle 1.006 Low 1.010-1.030 Urine pH 7.0 Normal 5-9 Urine Urobilinogen Negative Negative Urine Ketones Negative Negative Urine Protein Negative Negative Urine Leukocytes Negative Negative Urine Blood Negative Negative Urine Nitrite Negative Negative Urine Bilirubin Negative Negative Urine Glucose Negative Negative Rapid Influenza 07/12/2018 [facility] Influenza A NEGATIVE Negative 26 A & B Molecular [address] [place] Molecular [place], [place] [address] [phone] Influenza B Molecular NEGATIVE Negative Laboratory test 06/21/2018 [facility] Troponin-I 0.03 ng/mL < 0.04 27 finding [address] [employer] (TnI) [place], [place] [address] [phone] Rapid Influenza 06/21/2018 [facility] Influenza A NEGATIVE Negative 28 A & B Molecular [address] [employer] [place] [address] [phone] Influenza B Molecular NEGATIVE Negative Laboratory test 06/21/2018 [facility] Rapid SEE RESULT 29 finding [address] [place] [address] Antigen [phone] CBC Auto Diff 06/21/2018 [facility] White Blood 8.0 10^3/uL Normal 3.5-[address] Count 0.8 [place], [place] [address] [phone] Red Blood Count 3.81 10^6/uL Low 4.00-5.40 [...] Blood Cells % 0 Laboratory test 06/21/2018 [facility] B-Type 321 pg/mL High <= [address] [place] [address] Peptide BNP [phone] Comp Metabolic 06/21/2018 [facility] Sodium 137 Normal 135- [address] mmol/[place] [address] [phone] Potassium 4.8 mmol/L Normal 3.5-5.0 Chloride 100 [...] Egfr 67.2 >60 30 Laboratory test 06/21/2018 [facility] Troponin-I (TnI) 0.03 ng/ mL <0.04 31 finding [address] [place] [address] [phone] Lactic Acid 1.6 mmol/L Normal 0.5-2.0 32 Blood Culture SEE RESULT BELOW 33 1 RIGHT FOOT 2 SEE RESULT BELOW Name: FRANCISCA COBURN : [address]: Asia Jones NP Acct: [id number] Unit: [id number] AGE: 78 Location: WOUND Re11/01/18 SEX: F Status: REG REF SPEC: [id number] JUAN ANTONIO: 11/01/18-[address] [facility] [address]: Asia Jones NP REQ: [id number] RECD: 11/01/18359 STATUS: MARYANN FLORES DR: Echo Rivero NP _ SOURCE: WOUND SPDESC: ORDERED: Tissue Cult/GS COMMENTS: RIGHT FOOT Procedure Result Reported Site [...] CONTINUED ON NEXT PAGE DEPARTMENT OF PATHOLOGY, [address] [place] [address] Riky Samayoa M.D. Director [facility] # [id number] Patient: FRANCISCA COBURN [id number] (Continued) Specimen: [id number] Collected: 11/01/18-1399 Received: 11/01/18-1453 (Continued) Procedure Result [...] These antibiotics are not available in the [facility] Formulary Contact the Microbiology Department for any additional antibiotic reporting. * - Main Lab . END OF REPORT DEPARTMENT OF PATHOLOGY, [address] [place] [address] Riky Samayoa M.D. Director [facility] # [id number] 3 SEE RESULT BELOW Name: FRANCISCA COBURN : [address]: Asia Jones NP Acct: [id number] Unit: [id number] AGE: 78 Location: WOUND Re11/01/18 SEX: F Status: REG REF SPEC: [id number] JUAN ANTONIO: 11/01/18-[address] [facility] [address]: Asia Jones NP REQ: [id number] RECD: 11/01/185516 STATUS: ASHLY FLORES DR: Ehco Sanders Ellgilbert Bolanos DPM _ ORDERED: LEVEL [...] 1040 END OF REPORT DEPARTMENT OF PATHOLOGY, [address] [place] [address] Riky Samayoa M.D. Director [facility] # [id number] 4 [facility] Severe Sepsis and Septic Shock Management Bundle [...] (or dialysis) 6 Result TnIDx:0.05 Called to [id number] at: 13:34:26 by:[id number] Read back by: [id number] Troponin-I testing on Plasma Separator Tubes (PST) has a known false positive rate of 0.20-0.40%. All positive troponins reflex immediately to secondary confirmatory testing. Using the [employer] DxI 800 Access Immunoassay systems, the 99th percentile upper reference limit was demonstrated to be < 0.03 ng/mL. 7 SEE RESULT BELOW Name: FRANCISCA COBURN : [address]: Elinor Muñoz MD Acct: [id number] Unit: [id number] AGE: 78 Location: [place] [address] Re10/12/18 Dis: 10/17/18 SEX: F Status: DIS IN SPEC: [id number] JUAN ANTONIO: 10/12/18-[address] [facility] [address]: Heriberto Mejias MD REQ: [id number] RECD: 10/12/18-7513 STATUS: MARYANN FLORES DR: Echo Rivero LAP MAKER _ SOURCE: BLOOD,VENO SPDESC: ORDERED: Blood Cult Procedure Result Reported Site Aerobic Culture Bottle Final 10/17/18- 1303 ML No Growth Day 5 Anaerobic Culture Bottle Final 10/17/18- 1303 ML No Growth Day 5 * ML - Main Lab . END OF REPORT DEPARTMENT OF PATHOLOGY, [address] [place] [address] Riky Samayoa M.D. Director [facility] # [id number] 8 Standard intensity warfarin therapeutic range: 2.0-3.0 High intensity warfarin therapeutic range: 2.5-3.5 9 Result TnIDx:0.04 Called to [id number] at: 17:04:50 by:[id number] Read back by: [id number] Troponin-I testing on Plasma Separator Tubes (PST) has a known false positive rate of 0.20-0.40%. All positive troponins reflex immediately to secondary confirmatory testing. Using the [employer] DxI 800 Access Immunoassay systems, the 99th [...] 5 Kidney failure <15 (or dialysis) 11 [facility] Severe Sepsis and Septic Shock Management Bundle Measure requires all lactic acids initially measuring >2.0 mmol/L be repeated. 12 Result TnIDx:0.04 Called to [id number] at: 21:02:41 by:[id number] Read back by: [id number] Troponin-I testing on Plasma Separator Tubes (PST) has a known false positive rate of 0.20-0.40%. All positive troponins reflex immediately to secondary confirmatory testing. Using the [employer] DxI 800 Access Immunoassay systems, the 99th percentile upper reference limit was demonstrated to be < 0.03 ng/mL. 13 *Ascorbic acid is present which may interfere with detection of blood. 14 [employer]: [id number] 15 Result TnIDx:0.05 Called to [id number] at: 19:43:39 by:[id number] Read back by: [id number] Troponin-I testing on Plasma Separator Tubes (PST) has a known false positive rate of 0.20-0.40%. All positive troponins reflex immediately to secondary confirmatory testing. Using the [employer] DxI 800 Access Immunoassay systems, the 99th [...] [address]: Benton Steel MD Acct: [id number] Unit: [id number] AGE: 78 Location: [facility] [id number] Re08/19/18 Dis: 08/22/18 SEX: F Status: DIS IN SPEC: [id number] JUAN ANTONIO: 08/19/[address] [facility] [address]: Alexi Maxwell MD REQ: [id number] RECD: 08/19/18 STATUS: MARYANN FLORES DR: Echo Rivero LAP MAK[employer] _ SOURCE: BLOOD,VENO SPDESC: ORDERED: Blood Cult Procedure Result Reported Site Aerobic Culture Bottle Final 08/24/18- 1916 ML No Growth Day 5 Anaerobic Culture Bottle Final 08/24/18- 1914 ML No Growth Day 5 * ML - Main Lab . END OF REPORT DEPARTMENT OF PATHOLOGY, [address] [place] [address] Riky Samayoa M.D. Director [facility] # [id number] 18 Because ethnic data is not always [...] High intensity warfarin therapeutic range: 2.5-3.5 20 [facility] Severe Sepsis and Septic Shock Management Bundle Measure requires all lactic acids initially measuring >2.0 mmol/L be repeated. 21 Result TnIDx:0.05 Called to [id number] at: 23:27:08 by:[id number] Read back by: [id number] Troponin-I testing on Plasma Separator Tubes (PST) has a known false positive rate of 0.20-0.40%. All positive troponins reflex immediately to secondary confirmatory testing. Using the [employer] DxI 800 Access Immunoassay systems, the 99th percentile upper reference limit was demonstrated to be < 0.03 ng/mL. 22 SEE RESULT BELOW Name: MELLISSAFRANCISCA Canela : [address]: Carlos Rhodes MD Acct: [id number] Unit: [id number] AGE: 78 Location: ED Re07/12/18 SEX: F Status: REG ER SPEC: [id number] JUAN ANTONIO: 07/12/18-[address] [facility] [address]: Carlos Rhodes MD REQ: [id number] RECD: 07/12/18-1505 STATUS: MARYANN FLORES DR: Echo Rivero LAP MAKER _ SOURCE: NASAL SPDESC: ORDERED: Flu A B Request Procedure Result Reported Site Rapid Influenza A B Request Final 07/12/18- 1529 ML Specimen received for Influenza A/B Molecular testing * ML - Main Lab . END OF REPORT DEPARTMENT OF PATHOLOGY, [address] [place] [address] Riky Samayoa M.D. Director [facility] # [id number] 23 Because ethnic data is not always [...] troponins reflex immediate secondary confirmatory testing. 25 [facility] Severe Sepsis and Septic Shock Management Bundle Measure requires all lactic acids initially measuring >2.0 mmol/L be repeated. 26 [employer]: [id number] 27 Troponin-I testing on Plasma Separator Tubes (PST) has a known false positive rate of 0.20-0.40%. All positive troponins reflex immediate secondary confirmatory testing. 28 [employer]: [id number] 29 SEE RESULT BELOW Name: FRANCISCA COBURN : [address]: Carlos Rhodes MD Acct: [id number] Unit: [id number] AGE: 78 Location: ED Re06/21/18 SEX: F Status: PRE ER SPEC: [id number] JUAN ANTONIO: 06/21/[address] [facility] [address]: Carlos Rhodes MD REQ: [id number] RECD: 06/21/18 STATUS: MARYANN FLORES DR: Echo Rivero LAP MAKER _ SOURCE: NASAL SPDESC: ORDERED: Flu A B Request Procedure Result Reported Site Rapid Influenza A B Request Final 06/21/18- 1142 ML Specimen received for Influenza A/B Molecular testing * ML - Main Lab . END OF REPORT DEPARTMENT OF PATHOLOGY, [address] [place] [address] Riky Samayoa M.D. Director [facility] # [id number] 30 Because ethnic data is not always [...] troponins reflex immediate secondary confirmatory testing. 32 [facility] Severe Sepsis and Septic Shock Management Bundle Measure requires all lactic acids initially measuring >2.0 mmol/L be repeated. 33 SEE RESULT BELOW Name: FRANCISCA COBURN : [address]: Deborah Jacobs MD Acct: [id number] Unit: [id number] AGE: 78 Location: [place] [address] Re06/21/18 SEX: F Status: ADM IN SPEC: [id number] JUAN ANTONIO: 06/21/[address] [facility] [address]: Carlos Rhodes MD REQ: [id number] RECD: 06/21/18 STATUS: MARYANN FLORES DR: Echo Rivero LAP MAKER _ SOURCE: BLOOD,VENO SPDESC: ORDERED: Blood Cult Procedure Result Reported Site Aerobic Culture Bottle Final 03/13/19- 1141 ML No Growth Day 5 Anaerobic Culture Bottle Final 06/26/18- 1141 ML No Growth Day 5 * ML - Main Lab . END OF REPORT DEPARTMENT OF PATHOLOGY, [address] [place] [address] Riky Samayoa M.D. Director [facility] # [id number] Procedures Date Code Description Status 11/15/2018 70231 Injection Single Tendon Origin/Insertion Completed 11/01/2018 95699 Debridement Skin,& sq Tissue Completed 10/12/2018 86222 EKG, Interpretation Only Completed 09/18/2018 65508 EKG, Interpretation Only Completed 09/12/2018 152450793 Diabetic Foot Exam Completed 08/09/2018 97270 Admin Of Inj Completed 08/07/2018 78254 EKG Tracing & Interpretation Completed 07/13/2018 60495 EKG, Interpretation Only Completed 06/22/2018 74305 EKG, Interpretation Only Completed 06/22/2018 28528 EKG, Interpretation Only Completed 06/21/2018 19413 ECHO Transthorasic Realtime 2D W Doppler & Color Flow Completed Hosp 11/07/2017 20177774 Mammogram Completed 03/30/2017 14556823 Mammogram Completed 04/01/2015 017498846 Bone Mineral Density Test Completed 04/01/2015 25299503 Mammogram Completed 02/17/2013 604095641 Bone Mineral Density Test Completed 02/17/2013 69058648 Mammogram Completed 03/20/2012 66861674 Colonoscopy Completed 01/25/2011 394434484 Bone Mineral Density Test Completed 01/25/2011 75959485 Mammogram Completed 03/04/2008 90901778 Colonoscopy Completed Medical Devices Description No Information Available Encounters Type Date Location Provider Dx Diagnosis Office Visit 12/17/2018 Pulmonology And Sabrina Chester, J44.9 Chronic obstructive 3:30p Sleep Services Of pulmonary disease, [facility] unspecified R09.02 Hypoxemia Office Visit 12/06/2018 2:30p Wound Care Asia Jones, S91.301D Unspecified open Center AT [facility] AZRA RN, [employer] FI[employer] AGENT-BC wound, right foot, subsequent encounter I89.0 Lymphedema, not elsewhere classified G60.8 Other hereditary and idiopathic neuropathies L89.893 Pressure ulcer of other site, stage 3 Office Visit 12/03/2018 2:00p [facility] Internal Echo Rivero, R32 Unspecified urinary Medicine - [facility] incontinence M25.552 Pain in left hip M25.561 Pain in right knee S91.331D Puncture wound without foreign body, right foot, subs encntr Office Visit 11/15/2018 1:30p Orthopedic Services Amanda Lay, M25.552 Pain in left Of C.M.A. M.D. hip Z96.642 Presence of left artificial hip joint M70.62 Trochanteric bursitis, left hip M25.561 Pain in right knee Office Visit 11/12/2018 11:30a [facility] Faustina Francois L97.519 Non- prs For Infectious Morillo, LAP MAKER chronic ulcer Diseases oth prt right foot w unsp severity Office Visit 11/08/2018 1:30p Wound Care Asia Jones, L89.893 Pressure ulcer Center AT [facility] [place] JEAN OQUENDO, [employer] FI[employer] AGENT-BC of other site, stage 3 S91.301D Unspecified open wound, right foot, subsequent encounter Office Visit 10/22/2018 4:00p [facility] Internal Echo Rivero, J44.1 Chronic obstructive Medicine - N.P. 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 diastolic Hospitalists (congestive) heart failure J96.21 Acute and chronic respiratory failure with hypoxia J44.1 Chronic obstructive pulmonary disease w (acute) exacerbation Office Visit 10/15/2018 [facility] Elinor Hohn, I50.33 Acute on chronic 9:28a claire Ferguson M.D. diastolic Hospitalists (congestive) heart failure J96.21 Acute and chronic respiratory failure with hypoxia J44.1 Chronic obstructive pulmonary disease w (acute) exacerbation I71.4 Abdominal aortic aneurysm, without rupture Office Visit 10/15/2018 [facility] Faustina Willrubenravindra L97.419 Non- prs chr 9:45a AT [facility] [place] UNIQUE Morillo ulcer of right heel and midfoot w unsp severt Office Visit 10/14/2018 [facility] Elinor Muñoz, J96.21 Acute and 9:27a claire Ferguson M.D. chronic Hospitalists respiratory failure with hypoxia J44.1 Chronic obstructive pulmonary disease w (acute) exacerbation I50.33 Acute on chronic diastolic (congestive) heart failure Office Visit 10/13/2018 [facility] Elinor Hohn, I50.33 Acute on chronic 9:25a claire Ferguson M.D. diastolic Hospitalists (congestive) heart failure J96.21 Acute and chronic respiratory failure with hypoxia J44.1 Chronic obstructive pulmonary disease w (acute) exacerbation I71.4 Abdominal aortic aneurysm, without rupture Office Visit 10/12/2018 [facility] Nini J96.11 Chronic 9:25a Assclaire nation NP respiratory Hospitalists failure with hypoxia I11.0 Hypertensive heart disease with heart failure I50.9 Heart failure, unspecified J44.9 Chronic obstructive pulmonary disease, unspecified Office Visit 10/08/2018 9:00a Orthopedic Jerardo Kyle, L97.419 Non-prs chr Services Of ulcer of right C.M.A. 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 wound, right foot, initial encounter G60.8 Other hereditary and idiopathic neuropathies R20.0 Anesthesia of skin J44.9 Chronic obstructive pulmonary disease, unspecified Office Visit 09/27/2018 11:40a [facility] Internal Echo Rivero, J44.9 Chronic Medicine - N.P. obstructive Ccmob pulmonary disease, unspecified L08.9 Local infection of the skin and subcutaneous tissue, unsp I50.9 Heart failure, unspecified Office Visit 09/24/2018 1:45p Pulmonology And Sabrina J44.9 Chronic Sleep Services Of [facility] Nemo obstructive Church Official pulmonary disease, unspecified R09.02 Hypoxemia Office Visit 09/20/2018 9:17a [facility] Shanti oCdy, J96.21 Acute and chronic Assoc,pc N.P. respiratory Hospitalists failure with hypoxia I50.23 Acute on chronic systolic (congestive) heart failure J44.1 Chronic obstructive pulmonary disease w (acute) exacerbation I11.0 Hypertensive heart disease with heart failure Office Visit 09/19/2018 9:16a [facility] Shanti Cody, J96.21 Acute and chronic Assoc,pc N.P. respiratory Hospitalists failure with hypoxia J44.1 Chronic obstructive pulmonary disease w (acute) exacerbation Office Visit 09/18/2018 [facility] Neida J96.21 Acute and chronic 9:16a Assoc,pc DARBY Santos respiratory Hospitalists failure with hypoxia R74.8 Abnormal levels of other serum enzymes I50.9 Heart failure, unspecified I11.0 Hypertensive heart disease with heart failure Office Visit 09/17/2018 9:15a [facility] Nini I13.0 Hyp hrt & chr Assoc,pc UNIQUE Charles dis w hrt Hospitalists fail and stg 1-4/unsp chr jenniferny I50.9 Heart failure, unspecified N18.9 Chronic kidney disease, unspecified J44.9 Chronic obstructive pulmonary disease, unspecified Office Visit 09/13/2018 10:00a [facility] Internal Echo Rivero, L08.9 Local infection of Medicine - N.P. the skin and Ccmob subcutaneous tissue, unsp J44.1 Chronic obstructive pulmonary disease w (acute) exacerbation Office Visit 08/30/2018 3:40p [facility] Internal Echo Rivero, J44.1 Chronic obstructive Medicine - N.P. pulmonary disease w Ccmob (acute) exacerbation I50.9 Heart failure, unspecified [facility] 8:38a Assocclaire M.D. obstructive Hospitalists pulmonary disease w (acute) exacerbation I50.33 Acute on chronic diastolic (congestive) heart failure I35.0 Nonrheumatic aortic (valve) stenosis Office Visit 08/21/2018 [facility] Acute and 8:37a Assclaire nation M.D. 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 systolic (congestive) heart failure J44.9 Chronic obstructive pulmonary disease, unspecified Office Visit 07/26/2018 3:40p [facility] Echo Rivero, J44.1 Chronic obstructive Medicine - N.P. 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 J44.9 Chronic obstructive pulmonary disease, unspecified D64.9 Anemia, unspecified D63.8 Anemia in other chronic diseases classified elsewhere Z22.39 Carrier of other specified bacterial diseases G62.9 Polyneuropathy, unspecified Office Visit 07/18/2018 [facility] Zeinab Paola, I50.23 Acute on chronic 8:53a Assoc,pc [employer] systolic Hospitalists (congestive) heart failure J96.21 Acute and chronic respiratory failure with hypoxia R74.8 Abnormal levels of other serum enzymes I11.0 Hypertensive heart disease with heart failure Z22.39 Carrier of other specified bacterial diseases J44.9 Chronic obstructive pulmonary disease, unspecified G62.9 Polyneuropathy, unspecified Office Visit 07/17/2018 [facility] Zeinab Paola, I50.23 Acute on chronic 8:52a Assoc,pc [employer] systolic Hospitalists (congestive) heart failure J96.21 Acute and chronic respiratory failure with hypoxia 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 G62.9 Polyneuropathy, unspecified Z22.39 Carrier of other specified bacterial diseases Office Visit 07/16/2018 [facility] Zeinab Paola, I50.23 Acute on chronic 8:52a Assoc,pc [employer] systolic Hospitalists (congestive) heart failure J96.21 Acute and chronic respiratory failure with hypoxia I11.0 Hypertensive heart disease with heart failure R74.8 Abnormal levels of other serum enzymes D64.9 Anemia, unspecified F41.9 Anxiety disorder, unspecified G62.9 Polyneuropathy, unspecified Office Visit 07/15/2018 [facility] Zeinab Paola, I50.23 Acute on chronic 8:51a Assoc,pc [employer] systolic Hospitalists (congestive) heart failure J96.21 Acute and chronic respiratory failure with hypoxia I11.0 Hypertensive heart disease with heart failure R74.8 Abnormal levels of other serum enzymes 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 J44.9 Chronic obstructive pulmonary disease, unspecified G62.9 Polyneuropathy, unspecified I35.0 Nonrheumatic aortic (valve) stenosis Office Visit 07/14/2018 [facility] Zeinab Paola, I50.23 Acute on chronic 8:51a Assoc,pc [employer] systolic Hospitalists (congestive) heart failure J96.21 Acute and chronic respiratory failure with hypoxia I11.0 Hypertensive heart disease with heart failure D64.9 Anemia, unspecified I35.0 Nonrheumatic aortic (valve) stenosis 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 obstructive pulmonary disease, unspecified Office Visit 07/02/2018 [facility]ology [facility] Sleep Sabrina J44.9 Chronic 1:30p Services Of [facility] [place] obstructive pulmonary disease, unspecified J96.12 Chronic respiratory failure with hypercapnia Office Visit 06/28/2018 8:31a [facility] Deborah J44.0 Chr obstructive Assoc,claire Jacobs MD pulmon disease Hospitalists with (acute) lower resp infct J20.9 Acute bronchitis, unspecified I50.9 Heart failure, unspecified Office Visit 06/27/2018 8:30a [facility] Deborah J44.1 Chronic Assoc,claire Jacobs MD obstructive Hospitalists pulmonary disease w (acute) exacerbation I50.9 Heart failure, unspecified F41.9 Anxiety disorder, unspecified Office Visit 06/27/2018 3:12p Pulmonology And Sabrina I50.21 Acute systolic Sleep Services Of [facility] [place] (congestive) heart Church Official failure J44.1 Chronic obstructive pulmonary disease w (acute) exacerbation Office Visit 06/26/2018 8:30a [facility] Deborah J44.1 Chronic Assoc,pc MD Arlene obstructive Hospitalists pulmonary disease w (acute) exacerbation I50.9 Heart failure, unspecified F41.9 Anxiety disorder, unspecified Z68.37 Body mass index (BMI) 37.0-37.9, adult Office Visit 06/26/2018 3:42p Pulmonology And Sabrina I50.21 Acute systolic Sleep Services Of [facility] [place] (congestive) heart Church Official failure J44.1 Chronic obstructive pulmonary disease w (acute) exacerbation Office Visit 06/25/2018 8:30a [facility] Wanda J96.21 Acute and chronic Assoc,claire Montaño M.D. respiratory Hospitalists failure with hypoxia J44.1 Chronic obstructive pulmonary disease w (acute) exacerbation I50.9 Heart failure, unspecified F41.9 Anxiety disorder, unspecified Office Visit 06/25/2018 9:43a Pulmonology And Sabrina I50.21 Acute systolic Sleep Services Of [facility] [place] (congestive) heart [employer] Official failure J44.1 Chronic obstructive pulmonary disease w (acute) exacerbation Office Visit 06/24/2018 8:29a [facility] Cary Stiles, J44.1 Chronic Assoc,pc obstructive Hospitalists pulmonary disease w (acute) exacerbation I50.9 Heart failure, unspecified F41.9 Anxiety disorder, unspecified G62.9 Polyneuropathy, unspecified I71.4 Abdominal aortic aneurysm, without rupture Office Visit 06/24/2018 11:31a Pulmonology And Sabrina I50.21 Acute systolic Sleep Services Of [facility] [place] (congestive) heart [employer] Official failure J44.1 Chronic obstructive pulmonary disease w (acute) exacerbation Office Visit 06/23/2018 8:29a [facility] Cary Stiles, J44.1 Chronic Assoc,pc obstructive Hospitalists pulmonary disease w (acute) exacerbation I50.9 Heart failure, unspecified G62.9 Polyneuropathy, unspecified I71.4 Abdominal aortic aneurysm, without rupture Office Visit 06/22/2018 8:29a [facility] Deborah J44.1 Chronic Assoc,pc MD Arlene obstructive Hospitalists pulmonary disease w (acute) exacerbation I50.9 Heart failure, unspecified I10 Essential (primary) hypertension F41.9 Anxiety disorder, unspecified Office Visit 06/22/2018 11:30a Pulmonology And Sabrina J96.12 Chronic Sleep Services Of [facility] [place] respiratory Church Official failure with hypercapnia J96.11 Chronic respiratory failure with hypoxia I50.21 Acute systolic (congestive) heart failure J44.1 Chronic obstructive pulmonary disease w (acute) exacerbation Office Visit 06/21/2018 8:28a [facility] J96.01 Acute respiratory Assoc,pc Odalys, MICHELLE failure with Hospitalists hypoxia I10 Essential (primary) hypertension I71.4 Abdominal aortic aneurysm, without rupture E78.5 Hyperlipidemia, unspecified Assessments Date Code Description Provider 12/17/2018 J44.9 Chronic obstructive pulmonary Sabrina Chester MD disease, unspecified 12/17/2018 R09.02 Hypoxemia Sabrina Chester MD 12/13/2018 S91.301D Unspecified open wound, right foot, Asia Jones DNP , RN, subsequent encounter [facility] 12/13/2018 I89.0 Lymphedema, not elsewhere classified Asia Jones DNP, RN, [facility] 12/13/2018 G60.8 Other hereditary and idiopathic Asia Jones DNP RN, neuropathies [facility] 12/06/2018 S91.301D Unspecified open wound, right foot, Asia Jones DNP , RN, subsequent encounter [facility] 12/06/2018 I89.0 Lymphedema, not elsewhere classified Asia Jones DNP, RN, [facility] 12/06/2018 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 12/03/2018 M25.552 Pain in left hip Echo Rivero, N.P. 12/03/2018 M25.561 Pain in right knee Echo Rivero, N.P. 12/03/2018 S91.331D Puncture wound without foreign body, Echo Rivero, N.P. right foot, subsequent encounter 11/15/2018 M25.552 Pain in left hip Amanda Lay M.D. 11/15/2018 Z96.642 Presence of left artificial hip Amanda Lay M.D. joint 11/15/2018 M70.62 Trochanteric bursitis, left hip Amanda Lay M.D. 11/15/2018 M25.561 Pain in right knee Amanda Lay M.D. 11/12/2018 L97.519 Non-pressure chronic ulcer of other Faustina Francois Morillo, LAP MAK[employer] part of right foot with unspecified severity 11/08/2018 L89.893 Pressure ulcer of other site, stage Asia Jones DNP , RN, 3 [facility] 11/08/2018 S91.301D Unspecified open wound, right foot, Asia Jones DNP , RN, subsequent encounter [facility] 11/01/2018 S91.301D Unspecified open wound, right foot, Asia Jones DNP , RN, subsequent encounter [facility] 11/01/2018 L89.893 Pressure ulcer of other site, stage Asia Jones DNP , RN, 3 [facility] 10/22/2018 J44.1 Chronic obstructive pulmonary Echo Varn, [...] exacerbation 10/15/2018 I50.33 Acute on chronic diastolic Elnior Muñoz M.D. (congestive) heart failure 10/15/2018 L97.419 Non-pressure chronic ulcer of right Faustina Francois Morillo, LAP [employer] heel and midfoot with unspecified severity 10/15/2018 [...] aneurysm, without Elinor Muñoz M.D. rupture 10/12/2018 R94.31 Abnormal electrocardiogram [ECG] Roxana Serrano M.D. [EKG] 10/12/2018 J96.11 Chronic respiratory failure with Nini Charles NP hypoxia 10/12/2018 I11.0 Hypertensive heart disease with Nini Charles LAP [employer] heart failure 10/12/2018 I50.9 Heart failure, unspecified Nini Charles, LAP [employer] 10/12/2018 J44.9 Chronic obstructive pulmonary Nini CharlesUNIQUE disease, unspecified 10/08/2018 L97.419 Non-prs chr ulcer of right heel and Jerardo Kyle MD midfoot w unsp severt 10/08/2018 I89.0 Lymphedema, not elsewhere classified Jerardo Kyle MD 10/04/2018 I10 Essential (primary) hypertension Sera WhitmanUNIQUE 10/04/2018 I35.0 Nonrheumatic aortic (valve) stenosis Sera Whitman, LAP MA[employer] 10/04/2018 I42.9 Cardiomyopathy, unspecified Sera Monsonlamonte, LAP MAKER 10/04/2018 I25.10 Atherosclerotic heart disease of Sera WhitmanUNIQUE iroquois coronary artery with 10/01/2018 S91.301A Unspecified open wound, right foot, Sameer Buckner M.D. 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 neuropathies 10/01/2018 R20.0 Anesthesia of skin Sameer Buckner M.D. 10/01/2018 J44.9 Chronic obstructive pulmonary Sameer Buckner M.D. disease, unspecified 09/27/2018 J44.9 Chronic obstructive pulmonary Echo Mat, N.P. disease, unspecified 09/27/2018 L08.9 Local infection of the skin and Echo Mat, N.P. subcutaneous tissue, unspeci 09/27/2018 I50.9 Heart failure, unspecified Echo Varlucio, N.P. 09/24/2018 J44.9 Chronic obstructive pulmonary Sabrina Chester MD disease, unspecified 09/24/2018 R09.02 Hypoxemia Sabrina Chester MD 09/20/2018 J96.21 Acute and chronic respiratory Lucio Valles.P. failure with hypoxia 09/20/2018 I50.23 Acute on chronic systolic Lucio Valles.P. (congestive) heart failure 09/20/2018 J44.1 Chronic obstructive pulmonary Shanti Cody N.P. disease w (acute) exacerbation 09/20/2018 I11.0 Hypertensive heart disease with Shanti Cody N.P. heart failure 09/19/2018 J96.21 Acute and chronic respiratory Lucio Valles.Miguelina. failure with hypoxia 09/19/2018 J44.1 Chronic obstructive pulmonary Lucio Valles.P. disease w (acute) exacerbation 09/18/2018 R94.31 Abnormal electrocardiogram [ECG] Jay Camacho M.D., FACC, [EKG] FSCAI 09/18/2018 J96.21 Acute and chronic respiratory Neida O'dominic, PA-C failure with hypoxia 09/18/2018 R74.8 Abnormal levels of other serum Neida O'dominic, PA-C enzymes 09/18/2018 I50.9 Heart failure, unspecified Neida O'dominic, PA-C 09/18/2018 I11.0 Hypertensive heart disease with Neida O'dominic, PA-C heart failure 09/17/2018 I13.0 Hyp hrt & chr kdny dis w hrt fail Nini Charles, LAP MA[employer] and stg 1-4/unsp chr kdny 09/17/2018 I50.9 Heart failure, unspecified Nini Charles, LAP MA[employer]ER 09/17/2018 N18.9 Chronic kidney disease, unspecified Nini Charles, LAP MA[employer]ER 09/17/2018 J44.9 Chronic obstructive pulmonary Nini Charles, LAP MA[employer] disease, unspecified 09/13/2018 L08.9 Local infection of [...] MD 08/20/2018 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 Cary Stiles MD coronary artery w/o ang pctrs 08/19/2018 J44.1 Chronic obstructive pulmonary Tiffany Rootyvette, DO disease w (acute) exacerbation 08/19/2018 R06.02 [...] I50.23 Acute on chronic systolic Zeinab Paola, LAP MAKER (congestive) heart failure 07/19/2018 J96.21 Acute and chronic respiratory Zeinab Paola, LAP MA[employer]ER failure with hypoxia 07/19/2018 I35.0 Nonrheumatic aortic (valve) stenosis Zeinab Paola, LAP MA[employer]ER 07/19/2018 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 Zeinab Paola, LAP MA[employer]ER coronary artery w/o ang pctrs 07/19/2018 J44.9 Chronic obstructive pulmonary Zeinab Paola, LAP MA[employer]ER disease, unspecified 07/19/2018 D64.9 Anemia, unspecified Zeinab Paola, LAP MA[employer]ER 07/19/2018 D63.8 Anemia in other chronic diseases Zeinab Paola, LAP MA[employer] classified elsewhere 07/19/2018 Z22.39 Carrier of other specified bacterial Zeinab Paola, LAP MA[employer] diseases 07/19/2018 G62.9 Polyneuropathy, unspecified Zeinab Paola, LAP MAKER 07/18/2018 I50.23 Acute on chronic systolic Zeinab Paola, LAP MAKER (congestive) heart failure 07/18/2018 J96.21 Acute and chronic respiratory Zeinab Paola, LAP MA[employer]ER failure with hypoxia 07/18/2018 R74.8 Abnormal levels of other serum Zeinab Paola, LAP MA[employer] enzymes 07/18/2018 I11.0 Hypertensive heart disease with Zeinab Paola, LAP MAKER heart failure 07/18/2018 Z22.39 Carrier of other specified bacterial Zeinab Paola, LAP MAKER diseases 07/18/2018 J44.9 Chronic obstructive pulmonary Zeinab Paola, LAP MAKER disease, unspecified 07/18/2018 G62.9 Polyneuropathy, unspecified Zeinab Paola, LAP MAKER 07/17/2018 I50.23 Acute on chronic systolic Zeinab Paola, LAP MAKER (congestive) heart failure 07/17/2018 J96.21 Acute and chronic respiratory Zeinab Paola, LAP MAKER failure with hypoxia 07/17/2018 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 Zeinab Paola, LAP MAKER coronary artery w/o ang pctrs 07/17/2018 G62.9 Polyneuropathy, unspecified Zeinab Paola, LAP MAKER 07/17/2018 Z22.39 Carrier of other specified bacterial Zeinab Paola, LAP MA[employer]ER diseases 07/16/2018 I50.23 Acute on chronic systolic Zeinab Paola, LAP MAKER (congestive) heart failure 07/16/2018 J96.21 Acute and chronic respiratory Zeinab Paola, LAP MAKER failure with hypoxia 07/16/2018 I11.0 Hypertensive heart disease with Zeinab Paola, LAP MA[employer]ER heart failure 07/16/2018 R74.8 Abnormal levels of other serum Zeinab Paola, LAP MAKER enzymes 07/16/2018 D64.9 Anemia, unspecified Zeinab Paola, LAP MAKER 07/16/2018 F41.9 Anxiety disorder, unspecified Zeinab Paola, LAP MAKER 07/16/2018 G62.9 Polyneuropathy, unspecified Zeinab Paola, LAP MAKER 07/15/2018 I50.23 Acute on chronic systolic Zeinab Paola, LAP MAKER (congestive) heart failure 07/15/2018 J96.21 Acute and chronic respiratory Zeinab Paola, LAP MA[employer]ER failure with hypoxia 07/15/2018 I11.0 Hypertensive heart disease with Zeinab Paola, LAP MA[employer]ER heart failure 07/15/2018 R74.8 Abnormal levels of other serum Zeinab Paola, LAP MAKER enzymes 07/15/2018 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 Zeinab Paola, LAP MAKER coronary artery w/o ang pctrs 07/15/2018 J44.9 Chronic obstructive pulmonary Zeinab Paola, LAP MAKER disease, unspecified 07/15/2018 G62.9 Polyneuropathy, unspecified Zeinab Paola, LAP MAKER 07/15/2018 I35.0 Nonrheumatic aortic (valve) stenosis Zeinab Paola, LAP MA[employer]ER 07/14/2018 I50.23 Acute on chronic systolic Zeinab Paola, LAP MA[employer]ER (congestive) heart failure 07/14/2018 J96.21 Acute and chronic respiratory Zeinab Paola, LAP MAKER failure with hypoxia 07/14/2018 I11.0 Hypertensive heart disease with Zeinab Paola, LAP MA[employer] heart failure 07/14/2018 D64.9 Anemia, unspecified Zeinab Paola, LAP MAKER 07/14/2018 I35.0 Nonrheumatic aortic (valve) stenosis Zeinab Paola, LAP MAKER 07/14/2018 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 [EKG] 07/13/2018 J96.21 Acute and chronic respiratory Zeinab Paola, LAP MA[employer] failure with hypoxia 07/13/2018 I50.23 Acute on chronic systolic Zeinab Paola, LAP MA[employer]ER (congestive) heart failure 07/13/2018 I11.0 Hypertensive heart disease with Zeinab Paola, LAP MA[employer]ER heart failure 07/13/2018 J44.9 Chronic obstructive pulmonary Zeinab Paola, LAP MA[employer]ER disease, unspecified 07/13/2018 I35.0 Nonrheumatic aortic (valve) stenosis Zeinab Paola, LAP MA[employer]ER 07/13/2018 G62.9 Polyneuropathy, unspecified Zeinab Paola, LAP MAKER 07/12/2018 J96.11 Chronic respiratory failure with Aimee Shortle, LAP MAKER hypoxia 07/12/2018 J44.9 Chronic obstructive pulmonary Aimee Shortle, LAP MAKER disease, unspecified 07/12/2018 I50.23 Acute on chronic systolic Aimee Shortle, LAP MAKER (congestive) heart failure 07/12/2018 I11.0 Hypertensive heart disease with Aimee Shortle, LAP MAKER heart failure 07/05/2018 J44.9 Chronic obstructive pulmonary [...] unspecified MICHELLE Wallace Plan of Treatment Future Appointment(s):02/25/2019 3:00 pm - Ariadne Zambrano NP at [facility]01/15/2019 2:30 pm - Oskar Shultz M.D. at [facility]02/14/2019 11:30 am - Oskar Shultz M.D. at [facility]12/17/2018 - Sabrina Chester MDJ44.9 Chronic obstructive pulmonary disease, unspecifiedFollow up:2 months SM/LKR09.02 Hypoxemia Functional Status Description No Information Available Mental Status Description No Information Available Referrals Refer to Dr Reason for Referral Status Appt Date Wound Clinic Patient with foot wound. Has been to Dr Gomez and Sent he did not feel she was a surgical candidate. Was referred for a boot but they are unable to fit her for this due to her wound. I am referring her back for management. LM for referral office 12/06 [address] [place] [address] [phone] Amanda Lay MD Patient has left hip and right knee pain Scheduled 2018 referred for evaluation and treatment. Thank you for seeing this pleasant patient. 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 Referred for follow up. [address] [place] [address] [phone] Alina Mukherjee MD Sent [address] [place] [id number] [phone] Wound Clinic Patient with infected wound following removal of callus Sent of right foot. She has been on Doxycycline and using Mupirocin ointment. referred for evaluation and treatment. [address] [place] [address] [phone] Sabrina Chester MD Patient is referred for COPD exacerbation. Sent 2018 [address] [facility] [address] [place] [phone] Oskar Shultz MD Patient with recent admission for CHF referred for Sent 08/21/2018 follow [address] [place] [address] [phone]
[2018-12-27 18:39] LABS: INR 1.09 (0.82-1.09)
[2018-12-27 18:51] LABS: ABS Basophils 0.1 10^3/ul (0-0.2); ABS Eosinophils 0.3 10^3/ul (0-0.6); ABS Lymphocytes 0.8 10^3/ul (1.0-4.8); ABS Monocytes 1.2 10^3/ul (0-0.8); ALT 14 U/L (7-52); AST 23 U/L (13-39); Albumin 2.9 g/dL (3.2-5.2); Albumin/Globulin Ratio 0.9 (1-3); Alkaline Phosphatase 59 U/L (34-104); Blood Urea Nitrogen 52 mg/dL (6-24); C Reactive Protein 39.64 mg/L (<8.01); Calcium 8.9 mg/dL (8.6-10.3); Chloride 86 mmol/L (101-111); EGFR African American 39.7 (>60); EGFR Non-African American 32.8 (>60); Eosinophil % 3.6 %; Globulin 3.3 g/dL (2-4); Glucose 149 mg/dL (70-100); Hematocrit 25 % (35-47); Hemoglobin 8.3 g/dL (12.0-16.0); Lymphocyte % 9.2 %; Mean Corpuscular HGB Conc 33 g/dL (31-36); Mean Corpuscular Hemoglobin 29 pg (27-31); Mean Corpuscular Volume 86 fL (80-97); Mean Platelet Volume 8.4 fL (7.4-10.4); Platelet Count 322 10^3/uL (150-450); Potassium 3.9 mmol/L (3.5-5.0); Red Blood Count 2.87 10^6 /uL (3.70-4.87); Red Cell Distribution Width 16 % (10-15); Sodium 131 mmol/L (135-145); Total Protein 6.2 g/dL (6.4-8.9); White Blood Count 8.3 10^3/uL (3.5-10.8)
[2018-12-27 18:53] LABS: Troponin I 0.02 ng/mL (<0.04)
[2018-12-27 18:55] LABS: Anion Gap 4 mmol/L (2-11); CO2 Carbon Dioxide 41 mmol/L (22-32)
[2018-12-27 19:18] LABS: Urine Appearance Cloudy; Urine Bilirubin Negative (Negative); Urine Blood Negative (Negative); Urine Color Yellow; Urine Glucose Negative (Negative); Urine Ketones Negative (Negative); Urine Nitrite Negative (Negative); Urine Protein Negative (Negative); Urine Specific Gravity 1.008 (1.010-1.030); Urine Urobilinogen Negative (Negative)
[2018-12-27] MEDS ORDERED: guaiFENesin ER TAB 600 MG PO PRN (22:24)
[2018-12-27] MEDS ORDERED: Senna TAB 8.6 mg* TAB PO PRN (22:24)
[2018-12-27] MEDS ORDERED: Polyethylene Glycol 3350* 17 GM PACKET PO PRN (22:24)
[2018-12-27] MEDS ORDERED: Albuterol/Ipratropium NEB.SOL* Albuterol 2.5 MG/Ipratropium 0.5 MG 3 ML INH PRN (22:24)
[2018-12-27] MEDS ORDERED: Azithromycin TAB* 250 MG PO ONE (22:43)
[2018-12-27] MEDS ORDERED: Furosemide IV* 10 MG/ML VIAL (40 MG) IV ONE (22:45)
[2018-12-27 22:59] LABS: % Iron Saturation 9 % (15-55); Iron 27 ug/dL (50-212); LDH 158 U/L (140-271); Total Iron Binding Capacity 316 mcg/dL (250-450); Transferrin 226 mg/dL (203-362)
[2018-12-27 23:19] LABS: Ferritin 39.1 ng/mL (11-307)
[2018-12-28] MEDS: traMADol TAB* 50 MG PO PRN ×2 (01:46→13:02)
[2018-12-28] MEDS: Pregabalin CAP(*) 50 MG PO SCH ×2 (01:47→19:55)
[2018-12-28] MEDS: predniSONE TAB* 20 MG PO SCH ×2 (01:49→09:14)
[2018-12-28 02:33] LABS: Urine Appearance Clear; Urine Bacteria Absent (Absent); Urine Bilirubin Negative (Negative); Urine Blood 1+ (Negative); Urine Color Straw; Urine Glucose Negative (Negative); Urine Ketones Negative (Negative); Urine Nitrite Negative (Negative); Urine Protein Negative (Negative); Urine Red Blood Cell Absent (Absent); Urine Specific Gravity 1.005 (1.010-1.030); Urine Urobilinogen Negative (Negative); Urine White Blood Cell Trace(0-5/hpf) (Absent)
--- NOTE | 2018-12-28 03:03 | HP ---
HISTORY AND PHYSICAL: DATE OF ADMISSION: 12/27/18 ADMITTING PROVIDER: Stewart Angelo MD PRIMARY CARE PROVIDER: Echo Rivero NP OUTPATIENT FRONT DESK MONITOR: Dr. Shultz. OUTPATIENT MACHINE MAINTENANCE SUPERVISOR: Dr. Chester. CHIEF COMPLAINT: Shortness of breath, leg swelling, cough, left-sided rib pain , and orthopnea. HISTORY OF PRESENT ILLNESS: Leigh Ann Coburn is a 78-year-old female with a past medical history of chronic hypoxic respiratory failure on 4 L of oxygen secondary to COPD; systolic congestive heart failure; hypertension; hyperlipidemia; colon cancer (2007), status post resection, chemotherapy; anxiety; moderate to severe aortic stenosis. For the last 2 days she developed increased frequency of nonproductive cough, increased shortness of breath, and her legs were increasingly more swollen. She had been given new compression stockings 2 weeks ago that were increasingly uncomfortable to wear. She asked her aide to increase to 6 L which made a slight difference and EMS was called. She was found to be Sat'ing 81% on "nasal cannula", presumably 4 L but it is not documented how much. She was put on nonrebreather and transported to the [facility] Emergency Room for further evaluation. She was found to be more anemic than baseline with a hemoglobin of 8.3, hematocrit 25, compared to hemoglobin of 10.9. Kidney function was worse with creatinine of 1.53, up from 0.88 and BUN elevated at 52. She had a chest x-ray, formal read pending but consistent with pulmonary interstitial edema per my read. BNP was 524, CRP 39, lactic acid 2.3. Her blood pressure has been on the soft side, mostly 100s over 50s to 60s , but there is record at 79/44. She denies any melena, hematochezia, or hematuria. Last colonoscopy she thinks was about 5 plus years ago and did a stool study with Dr. Cm about 1 year ago and that was reportedly negative. She did have a stool occult blood on 07/14/18 when she was iron deficient at that time as well which was negative. She was briefly put on iron supplements, but had constipation and gas and stopped those. RDW is elevated at 16, MCV is 86. She was started on metolazone 2.5 mg prior to her Lasix 60 mg during her last admission between 10/12/18 and 10/17/18 for again acute hypoxic respiratory failure secondary to CHF and COPD. Her last echocardiogram was on 06/21/18 which showed an ejection fraction of 40% to 45%, increased from 25% to 30% in March 2018 and had, by 2D, aortic valve area of 0.88 cm2. At that time, she did follow up with Sera Whitman about 6 weeks ago, Cardiology, and Dr. Chester back 10 days ago. No reported changes in meds at those times. She occasionally does take ibuprofen 400 mg at night for her hip pain and was recently started on oxybutynin about 6 weeks ago. Her weight reportedly increased to 204 pounds, up from approximately 193 at last doctor's visit approximately 1 week ago. Follows with the Wound Clinic for a draining right ulcer at the base of the right 1st metatarsal that is largely closed and healed. She does have a scale at home but unless she has 2 people to help, she cannot balance on it to weigh herself. PAST MEDICAL HISTORY: 1. Colon cancer (2007), status post resection and chemotherapy. 2. Systolic CHF, EF 40% to 45%. 3. COPD with chronic hypoxic respiratory failure. 4. Hypertension. 5. Hyperlipidemia. 6. Aortic aneurysm. 7. CAD (did have a left heart catheterization with a mid 50% LAD lesion and ostial 30% left main lesion). 8. Peripheral neuropathy. 9. Anxiety. 10. Moderate to severe aortic stenosis. 11. Chronic fatigue. MEDICATIONS: Include: 1. Guaifenesin 600 mg p.o. b.i.d. p.r.n. 2. Albuterol HFA 2 puffs inhaled 4 times a day p.r.n. 3. Cetirizine 10 mg p.o. daily. 4. Calcium carbonate/vitamin D 500 plus 1 tab p.o. daily. 5. Symbicort 2 puffs inhaled b.i.d. 6. Aspirin 81 mg daily. 7. Ascorbic acid 1000 mg p.o. daily. 8. DuoNebs inhaled 4 times a day p.r.n. 9. Denosumab (Prolia) 60 mg subcutaneous q.6 months. 10. Cholecalciferol 2000 units p.o. daily. 11. Ativan 0.5 mg p.o. q.6 hours p.r.n. 12. Irbesartan 150 mg p.o. daily. 13. Ibuprofen 400 mg p.o. q.6 hours p.r.n. (she tells me she takes it mostly p.r.n. at night). 14. Lasix 60 mg p.o. q.a.m. 15. Docusate 100 mg p.o. daily. 16. MiraLAX 17 g p.o. daily. 17. Theragran 1 tab p.o. daily. 18. Singulair 10 mg p.o. daily. 19. Metolazone 2.5 mg p.o. 30 minutes before morning Lasix. 20. Simvastatin 20 mg p.o. at bedtime. 21. Senna 1 tab p.o. daily p.r.n. 22. Lyrica 50 mg p.o. at bedtime and 25 mg p.o. daily. 23. Vitamin E capsule 100 units p.o. daily. 24. Vitamin B complex 1 capsule p.o. daily. 25. Oxybutynin XL 10 mg p.o. daily. ALLERGIES: Include CODEINE (hives), IODINE (rash), PENICILLIN (hives), PINEAPPLE (sore mouth), TIOTROPIUM (hoarseness, tickle in throat), ADHESIVE TAPE (reddened skin). FAMILY HISTORY: Sister had congestive heart failure, mother had abdominal aortic aneurysm dying at age 72, father had unknown type of cancer. SOCIAL HISTORY: The patient is a former smoker, quit in 2004, after 2 packs a day for 50 years or 100 pack years. No alcohol or drug use. Lives alone. Medical surrogate is her daughter, Lily Monroe. She does have VNS services and a private aide as well. Walks with a walker, sometimes a wheelchair. She desires to be a full code. REVIEW OF SYSTEMS: Complete 14-point review of systems negative except as per HPI. She gets chronic left hip pain for which she takes intermittent NSAIDs and what sounds like a corticosteroid shots. She is now complaining of some pulling , tightness in her legs and is asking for her night-time Lyrica. She says she has not slept at all in a few days. Denies any dysuria, headaches, nausea, vomiting, abdominal pain, diarrhea, or constipation. PHYSICAL EXAMINATION GENERAL APPEARANCE: In no acute distress. She is wearing a nonrebreather mask at 4 L. VITAL SIGNS: Temperature 98.8, heart rate 90, respiratory rate between 18 and 31, satting 100% on 4 L here on a nonrebreather, and blood pressure 101/70, lowest was 79/44. HEENT: Normocephalic and atraumatic. Pupils are equal, round, and reactive to light and accommodation. Extraocular motions are intact. No scleral icterus. LUNGS: Reduced air exchange bilaterally with some inspiratory wheeze. No rhonchi. HEART: Regular rate and rhythm. No murmurs, rubs, or gallops. ABDOMEN: Soft, nontender, and nondistended. EXTREMITIES: Warm, well perfused. There is 2+ pitting edema bilaterally, slight warmth to her right calf. Right foot is wrapped in a bandage with a healed ulceration near the first metatarsal (plantar). NEUROLOGIC: Cranial nerves II through XII intact. Moving all extremities. LABORATORY DATA: White count 8.3, hemoglobin 8.3, hematocrit 25, RDW 16, MCV 86, INR 1.09. Sodium 131, potassium 3.9, chloride 86, carbon-dioxide 41, BUN 52 , creatinine 1.53, glucose 149, lactic acid 2.1. Iron has been added, is low at 27; iron sat 9; TIBC 316. Ferritin pending. AST 23, ALT 14, alk phos 59, LDH 158, BNP 524, CRP 39, total protein 6.2. Heptoglobin pending. Urinalysis, 1.00 specific gravity. IMAGING: Chest x-ray formal read pending but consistent with some pulmonary interstitial edema per my read EKG consistent with prior EKG, demonstrated normal sinus rhythm, Q wave in V1, QRS 111, left axis unchanged from prior. ASSESSMENT AND PLAN: Leigh Ann Coburn is a 78-year-old female with multiple admissions for hypoxemic respiratory failure secondary to a combination of chronic obstructive pulmonary disease and congestive heart failure over the last few years, presenting with hypoxia, tachypnea, lower extremity edema. Chest x-ray associated with some pulmonary interstitial edema(my read); mildly elevated BNP; worsened anemia, some evidence of iron deficiency with hemoglobin of 8.3; acute kidney injury in the setting of metolazone, irbesartan, Lasix, and occasional NSAIDs. She is actually feeling a lot better in the emergency room without any acute intervention, but given her laboratory abnormalities, we will admit her to observation status. Can consider repeat echocardiogram given her progressive aortic stenosis, which between March 2018 and June 2018, dropped from 1.1 to 0.8 cm^2, but that would not happen tomorrow given no business unit controller in-house and may be able to pursue it as an outpatient with Cardiology. I am giving her 60 mg of IV Lasix tonight and holding her irbesartan given her SACHA. She has normal to slightly low blood pressures. We will check her CBC and BMP daily. We are adding on a stool occult blood. She does have a history of colon cancer for which decision has been made not to pursue any more colonoscopies and she denies any hematochezia or melena or other gross bleeding anywhere. Will do strict Is and Os, daily weights. We will reassess her volume status and kidney function daily. I am going to have a postvoid bladder scan to make sure she is not retaining. She was put on oxybutynin recently about 6 weeks ago and continue that. Continue her inhalers. We will substitute Dulera for Symbicort. She does have increased cough, history of COPD. I am going to start prednisone 40 mg daily and azithromycin for potential COPD excerebration. I am going to start tramadol to help with the left hip pain and avoid NSAIDs given the SACHA. For her anxiety continue her p.r.n. Ativan. She is going to get a heart-healthy diet. We will use SCDs as she will tolerate given her anemia for DVT prophylaxis. Also, going to rule out DVT with duplex venous US in her bilateral legs given her swelling and pulling pain. She is a full code. Medial surrogate is Lily Monroe. [id number]/[facility] #: [id number] [facility]PITALJared
[2018-12-28 03:06] LABS: Urine Creatinine Concentration 14.04 mg/dL
[2018-12-28] MEDS ORDERED: oxyCODONE TAB* 5 MG TAB PO ONE (03:27)
[2018-12-28 06:38] LABS: ABS Eosinophils 0.1 10^3/ul (0-0.6); ABS Lymphocytes 0.3 10^3/ul (1.0-4.8); ABS Monocytes 0.3 10^3/ul (0-0.8); ABS Neutrophils 6.6 10^3/ul (1.5-7.7); Eosinophil % 1.9 %; Hematocrit 27 % (35-47); Hemoglobin 9.2 g/dL (12.0-16.0); Lymphocyte % 3.6 %; Mean Corpuscular HGB Conc 34 g/dL (31-36); Mean Corpuscular Hemoglobin 29 pg (27-31); Mean Corpuscular Volume 86 fL (80-97); Mean Platelet Volume 7.6 fL (7.4-10.4); Platelet Count 321 10^3/uL (150-450); Red Blood Count 3.19 10^6 /uL (3.70-4.87); Red Cell Distribution Width 16 % (10-15); White Blood Count 7.3 10^3/uL (3.5-10.8)
[2018-12-28 06:54] LABS: BUN/Creatinine Ratio 31.6 (8-20); Calcium 9.4 mg/dL (8.6-10.3); EGFR Non-African American 33.1 (>60); Potassium 4.4 mmol/L (3.5-5.0)
[2018-12-28] MEDS: Mometasone/Formoter 200/5 MDI INH SCH ×2 (07:20→19:51)
[2018-12-28] MEDS: Docusate CAP* 100 MG PO SCH (09:13)
[2018-12-28] MEDS: Cholecalciferol TAB* 1000 UNITS PO SCH (09:14)
[2018-12-28] MEDS: Ascorbic Acid TAB* 500 MG PO SCH (09:14)
[2018-12-28] MEDS: Cetirizine* 10 MG TAB PO SCH (09:14)
[2018-12-28] MEDS: Montelukast Sodium TAB* 10 MG PO SCH (09:14)
[2018-12-28] MEDS: Multivitamins/Minerals TAB PO SCH (09:14)
[2018-12-28] MEDS: Aspirin EC TAB* 81 MG TAB.EC PO SCH (09:15)
[2018-12-28] MEDS: Famotidine TAB* 20 MG PO SCH ×2 (09:15→11:34)
[2018-12-28] MEDS: Ferrous Gluconate TAB* 324 MG TAB PO SCH (09:15)
[2018-12-28] MEDS: Pregabalin CAP(*) 25 MG PO SCH (09:15)
[2018-12-28] MEDS: Azithromycin TAB* 250 MG PO SCH (09:15)
[2018-12-28] MEDS: Oxybutynin XL TAB* 5 MG PO SCH (09:16)
[2018-12-28] MEDS: VITAMIN E 100 UNIT PO SCH (09:17)
--- NOTE | 2018-12-28 11:56 | PN ---
Subjective Date of Service: 12/28/18 Interval History: Pt requested a Aleman last night due to polyuria secondary to Lasix. Slept well afterwards. Still coughing thick yellow sputum. Wounds on feet healed Objective Active Medications: Albuterol/Ipratropium (Duoneb (Albuterol 2.5 Mg/Ipratropium 0.5 Mg)) 1 neb INH QID PRN PRN Reason: SHORTNESS OF BREATH Ascorbic Acid (Vitamin C Tab*) 1,000 mg PO DAILY [facility] Last Admin: 12/28/18 09:14 Dose: 1,000 mg Aspirin (Aspirin Ec Tab*) 81 mg PO DAILY [facility] Last Admin: 12/28/18 09:15 Dose: 81 mg Atorvastatin Calcium (Lipitor*) 10 mg PO BEDTIME [facility] Azithromycin (Zithromax Tab*) 250 mg PO DAILY [facility] Last Admin: 12/28/18 09:15 Dose: 250 mg Cetirizine HCl (Zyrtec*) 10 mg PO DAILY [facility] Last Admin: 12/28/18 09:14 Dose: 10 mg Cholecalciferol (Vitamin D Tab*) 2,000 units PO DAILY [facility] Last Admin: 12/28/18 09:14 Dose: 2,000 units Docusate Sodium (Colace Cap*) 100 mg PO DAILY [facility] Last Admin: 12/28/18 09:13 Dose: 100 mg Famotidine (Pepcid Tab*) 20 mg PO DAILY [facility] Last Admin: 12/28/18 11:34 Dose: Not Given Ferrous Gluconate (Fergon Tab*) 324 mg PO DAILY [facility] Last Admin: 12/28/18 09:15 Dose: 324 mg Furosemide (Lasix Iv*) 40 mg IV 0800,1700 [facility] Guaifenesin (Mucinex*) 600 mg PO BID PRN PRN Reason: CONGESTION Lorazepam (Ativan Tab(*)) 0.5 mg PO Q6H PRN PRN Reason: ANXIETY Mometasone Furoate/Formoterol Fumar (Dulera 200/5 Mdi*) 2 puff INH BID [facility] Last Admin: 12/28/18 07:20 Dose: 2 puff Montelukast Sodium (Singulair Tab*) 10 mg PO DAILY [facility] Last Admin: 12/28/18 09:14 Dose: 10 mg Multivitamins/Minerals (Theragran/Minerals Tab*) 1 tab PO DAILY [facility] Last Admin: 12/28/18 09:14 Dose: 1 tab Vitamin E Cap* 100 (Units) 1 dose PO DAILY [facility] Last Admin: 12/28/18 09:17 Dose: Not Given Oxybutynin Chloride (Ditropan Xl Tab*) 10 mg PO DAILY [facility] Last Admin: 12/28/18 09:16 Dose: 10 mg Polyethylene Glycol/Electrolytes (Miralax*) 17 gm PO DAILY PRN PRN Reason: CONSTIPATION Prednisone (Deltasone Tab*) 40 mg PO DAILY [facility] Last Admin: 12/28/18 09:14 Dose: 40 mg Pregabalin (Lyrica Cap(*)) 25 mg PO DAILY [facility] Last Admin: 12/28/18 09:15 Dose: 25 mg Pregabalin (Lyrica Cap(*)) 50 mg PO BEDTIME [facility] Last Admin: 12/28/18 01:47 Dose: 50 mg Senna (Senokot 8.6 Mg Tab*) 1 tab PO DAILY PRN PRN Reason: CONSTIPATION Tramadol HCl (Ultram*) 50 mg PO Q8H PRN PRN Reason: PAIN - MODERATE Last Admin: 12/28/18 01:46 Dose: 50 mg Vital Signs - 8 hr 12/28/18 12/28/18 12/28/18 04:13 05:12 05:13 Respiratory 20 14 14 Rate 12/28/18 12/28/18 06:04 09:15 Respiratory 14 22 Rate Oxygen Devices in Use Now: Nasal Cannula Appearance: 78 yo F in nAD, AAOx3 Eyes: No Scleral Icterus, PERRLA Ears/Nose/Mouth/Throat: NL Teeth, Lips, Gums, Mucous Membranes Moist Neck: NL Appearance and Movements; NL JVP, Trachea Midline Respiratory: Symmetrical Chest Expansion and Respiratory Effort, - - diffuse scattered wheezes Cardiovascular: RRR, - - 2/6 INOCENCIA at RUSB Abdominal: NL Sounds; No Tenderness; No Distention, No Hepatosplenomegaly Lymphatic: No Cervical Adenopathy Extremities: No Clubbing, Cyanosis, - - LE's edema +2 b/l Skin: No Nodules or Sclerosis Neurological: Alert and Oriented x 3, NL Muscle Strength and Tone Result Diagrams: 12/28/18 06:31 12/28/18 06:31 Assess/Plan/Problems-Billing Assessment: 78W with COPD on 4L home O2, HFrEF 40-45%, AAA, colon cancer s/p resection/chemo, presents with subacute progressive dyspnea, productive cough, LE edema and wt gain - Patient Problems (1) Acute and chronic respiratory failure with hypoxia Comment: - Resolving - Likely a combination of CHF exacerbation and possibly COPD exacerbation - Patient uses 4L oxygen at home - cont Prednisone - Continue home inhalers (2) COPD exacerbation Comment: - Continue steroids, Azithro (3) Diastolic CHF, acute on chronic Comment: - Vascular congestion noted on cxray, -diuresed well with Lasix 60 at admission. will cont Lasix 40 IV BID - Echo 06/15/17 with intact EF but evidence of diastolic dysfuction and bi-atrial enlargement with possible underestimation of pulmonary hypertension, severe at 0.8 cm 2 will get another Echo (4) Abdominal aortic aneurysm (AAA) 30 to 34 mm in diameter Comment: - US 07/22/18 Reveals 2.8 cm - Continue outpatient surveillance (5) Aortic stenosis Comment: - Recent echo 06/21/18 EF 45% and shows moderate to severe SHADIA 0.88 cm 2 - Recommend continued close follow up with Dr. Shultz, will repeat Echo (6) SACHA (acute kidney injury) Comment: suspect due to CHF, improving with Lasix, holding metolazone (7) Anemia Comment: - Chronic ACD, with worsening, now got better after diuresis, f/u stool guaiac (8) Hyperglycemia Comment: mild, likely due to steroids (9) DVT prophylaxis Comment: - SQH Status and Disposition: inpatient
[2018-12-28] MEDS: LORazepam TAB(*) 0.5 MG PO PRN ×2 (13:02→21:28)
[2018-12-28] MEDS: Heparin VIAL(*) 5000 UNITS/ML VIAL (FIVE THOUSAND) SUBCUT SCH ×2 (13:03→21:27)
[2018-12-28] MEDS: Furosemide IV* 10 MG/ML 10 ML VIAL (100 MG) IV SCH (16:23)
[2018-12-28] MEDS ORDERED: Furosemide IV* 10 MG/ML 10 ML VIAL (100 MG) IV SCH (17:00)
[2018-12-28] MEDS: Atorvastatin* 10 MG TAB PO SCH (19:55)
[2018-12-29] MEDS: Heparin VIAL(*) 5000 UNITS/ML VIAL (FIVE THOUSAND) SUBCUT SCH ×3 (06:02→20:38)
[2018-12-29 07:14] LABS: ABS Eosinophils 0.1 10^3/ul (0-0.6); ABS Lymphocytes 0.7 10^3/ul (1.0-4.8); ABS Monocytes 0.9 10^3/ul (0-0.8); ABS Neutrophils 4.4 10^3/ul (1.5-7.7); Hematocrit 24 % (35-47); Hemoglobin 8.1 g/dL (12.0-16.0); Mean Corpuscular HGB Conc 34 g/dL (31-36); Mean Corpuscular Hemoglobin 29 pg (27-31); Mean Corpuscular Volume 86 fL (80-97); Mean Platelet Volume 8.1 fL (7.4-10.4); Platelet Count 317 10^3/uL (150-450); Red Cell Distribution Width 16 % (10-15)
[2018-12-29 07:35] LABS: BUN/Creatinine Ratio 37.4 (8-20); Blood Urea Nitrogen 46 mg/dL (6-24); Calcium 8.8 mg/dL (8.6-10.3); Chloride 87 mmol/L (101-111); EGFR African American 51.1 (>60); EGFR Non-African American 42.2 (>60); Glucose 94 mg/dL (70-100); Potassium 3.8 mmol/L (3.5-5.0); Sodium 135 mmol/L (135-145)
[2018-12-29] MEDS: Mometasone/Formoter 200/5 MDI INH SCH ×2 (07:58→20:46)
[2018-12-29 08:00] LABS: CO2 Carbon Dioxide 47 mmol/L (22-32)
[2018-12-29] MEDS: Azithromycin TAB* 250 MG PO SCH (08:54)
[2018-12-29] MEDS: Multivitamins/Minerals TAB PO SCH (08:55)
[2018-12-29] MEDS: Aspirin EC TAB* 81 MG TAB.EC PO SCH (08:55)
[2018-12-29] MEDS: Docusate CAP* 100 MG PO SCH (08:55)
[2018-12-29] MEDS: Cetirizine* 10 MG TAB PO SCH (08:55)
[2018-12-29] MEDS: Ferrous Gluconate TAB* 324 MG TAB PO SCH (08:56)
[2018-12-29] MEDS: Montelukast Sodium TAB* 10 MG PO SCH (08:56)
[2018-12-29] MEDS: Ascorbic Acid TAB* 500 MG PO SCH (08:57)
[2018-12-29] MEDS: predniSONE TAB* 20 MG PO SCH (08:58)
[2018-12-29] MEDS: Cholecalciferol TAB* 1000 UNITS PO SCH (08:58)
[2018-12-29] MEDS: Famotidine TAB* 20 MG PO SCH (08:58)
[2018-12-29] MEDS: Pregabalin CAP(*) 25 MG PO SCH (08:59)
[2018-12-29] MEDS: Oxybutynin XL TAB* 5 MG PO SCH (08:59)
[2018-12-29] MEDS: VITAMIN E 100 UNIT PO SCH (09:08)
[2018-12-29] MEDS: Furosemide IV* 10 MG/ML 10 ML VIAL (100 MG) IV SCH (09:10)
[2018-12-29] MEDS ORDERED: Perflutren Lipid Microsphere* 3 ML VIAL ONE (10:24)
--- NOTE | 2018-12-29 12:28 | ECHO ---
*[facility]* [place] [address] Fax #: [phone] Transthoracic Echocardiogram Patient: Leigh Ann Coburn : 1940 Study Date: 12/29/2018 Age: 78 Gender: F HR: 90 bpm Height: 62 in /157.5 cm BSA: 1.96 m^2 Weight: 211.6 lb /96.2 kg BMI: 38.8 kg/m^2 *Cement Crusher Operator: Daxa Landeros [facility] *Referring Physician: * Elinor Muñoz *Reading Physician: * Amanda Alamo MD Indications: Aortic Valve Disorder. History: Coronary artery disease. Congestive heart failure. Aortic stenosis. Chronic obstructive pulmonary disease. Risk factors: Hypertension. Diabetes mellitus. Dyslipidemia. Conclusions Summary: - Left ventricle: The cavity size is moderately dilated. Wall thickness is mildly to moderately increased. Systolic function is moderately to severely reduced. The estimated ejection fraction is 30-35%. Features are consistent with a pseudonormal left ventricular filling pattern, with concomitant abnormal relaxation and increased filling pressure (grade 2 diastolic dysfunction). Doppler parameters are consistent with elevated ventricular end-diastolic filling pressure. - Right ventricle: Systolic function is moderately to severely reduced. - Mitral valve: There is moderate to severe regurgitation, directed posteriorly, toward the free wall, large wrap around jet. - Aortic valve: The valve is possibly bicuspid. The leaflets are moderately thickened. The findings are consistent with moderate stenosis. The peak systolic velocity is 2.5 m/sec. The mean systolic gradient is 14.0 mm Hg. The LVOT to aortic valve VTI ratio is 0.32. The valve area by the velocity-time integral method is 1.20 cm^2. SHADIA may be overestimated due to the patient's depressed ejection fraction. - Tricuspid valve: There is mild regurgitation. - Pulmonary arteries: Systolic pressure is mildly increased. The peak pressure during systole by Doppler is 40.0 mm Hg. - Compared with prior echocardiogram of 06/21/18, ejection fraction has decreased further, previoulsy 40-45%, right ventricle systolic function has decreased from low normal, mitral regurgitation previously estimated as mild, not significantly changed, prior SHADIA 1.4 cm2, MG 27 mmHg, Study data: Transthoracic echocardiogram. Procedure: Transthoracic echocardiography was performed. Image quality was suboptimal. Intravenous Definity , 3 mlswas administered. Image enhancement administered by JEAN Agrawal [facility]. Complete 2D, spectral Doppler, and color flow Doppler. Location: Bedside. Patient status: Inpatient. Patient room number: 445. Rhythm: Normal sinus rhythm. Findings Left ventricle: The cavity size is moderately dilated. Wall thickness is mildly to moderately increased. Systolic function is moderately to severely reduced. The estimated ejection fraction is 30-35%. Moderate to severe diffuse hypokinesis with regional variations. Features are consistent with a pseudonormal left ventricular filling pattern, with concomitant abnormal relaxation and increased filling pressure (grade 2 diastolic dysfunction). Doppler parameters are consistent with elevated ventricular end-diastolic filling pressure. Right ventricle: The cavity size is mildly dilated. Systolic function is moderately to severely reduced. Left atrium: The atrium is moderately dilated. Right atrium: The atrium is mildly dilated. Mitral valve: The Mitral valve annulus appears calcified. The leaflets are mildly thickened. There is no evidence of stenosis. There is moderate to severe regurgitation, directed posteriorly, toward the free wall, large wrap around jet. Aortic valve: The valve is possibly bicuspid. The leaflets are moderately thickened. Valve mobility is restricted. The findings are consistent with moderate stenosis. There is no significant regurgitation. Tricuspid valve: The leaflets are normal thickness. There is no evidence of stenosis. There is mild regurgitation. Pulmonic valve: The leaflets are normal thickness. There is no evidence of stenosis. There is trace regurgitation. Aorta: The aortic root appears normal. The aortic arch appears normal. Pericardium: There is no significant pericardial effusion. Pulmonary arteries: The main pulmonary artery is normal-sized. Systolic pressure is mildly increased. Systemic veins: Inferior vena cava: Not well visualized. Measurements Left ventricle Value Ref Aortic valve continued Value Ref DEE, LAX (H) 6.3 cm 3.8 - 5.2 Mean grad, S 14.0 mm Hg ----- ESD, LAX (H) 6.2 cm 2.2 - 3.5 Peak grad, S 25.0 mm Hg ----- FS, LAX (L) 2 % 27 - 45 LVOT/AV, VTI ratio 0.32 ----- PW, ED, LAX (H) 1.3 cm 0.6 - 0.9 SHADIA, VTI 1.20 cm^2 ----- EF (L) 5 % 54 - 74 SHADIA, Vmax 1.34 cm^2 ----- E', lat mary, TDI (L) 5.7 cm/sec >=10.0 E/e', lat mary, 18 Mitral valve Value Ref TDI Peak E 1.05 m/sec ----- E', med mary, TDI (L) 4.6 cm/sec >=7.0 Peak A 0.74 m/sec - ---- E/e', med mary, 23 Decel time 111 ms ---- - TDI PHT 91 ms ----- E', avg, TDI 5.2 cm/sec Mean grad, D 3.0 mm Hg ---- - E/e', avg, TDI (H) 20 <=14 Peak grad, D 6.0 mm Hg - ---- Peak E/A ratio 1.4 ----- LVOT Value Ref MVA, PHT 2.4 cm^2 ----- Diam, S 2.20 cm ERO, PISA 0.15 cm^2 ----- Area 3.8 cm^2 MR vol, PISA 20 ml ----- Peak jose e, S 0.88 m/sec MR fraction, PISA 22 % ----- VTI, S 18.0 cm Peak grad, S 3 mm Hg Pulmonic valve Value Ref Mean grad, S 2 mm Hg Peak v, S 0.74 m/sec ----- Peak grad, S 2.0 mm Hg ----- Ventricular septum Value Ref IVS, ED (H) 1.2 cm 0.6 - 0.9 Tricuspid valve Value Ref TR peak v (H) 2.9 m/sec <=2.8 Right ventricle Value Ref Peak RV-RA grad, S 34 mm Hg ----- DEE, LAX 3.7 cm DEE minor ax, A4C (H) 3.6 cm 1.9 - 3.5 Aortic root Value Ref mid Root diam 3.0 cm <4.1 Pressure, S 42 mm Hg Ascending aorta Value Ref Left atrium Value Ref AAo AP diam, S 3.0 cm ----- AP dim, ES (H) 6.00 cm 2.70 - 3.80 Aortic arch Value Ref ML dim, A4C 5.2 cm Arch diam 2.8 cm ----- SI dim, A4C 6.6 cm Vol/bsa, ES, A/L (H) 44 ml/m^2 16 - 34 Decending aorta Value Ref Juan Miguel peak jose e 0.49 m/sec ----- Right atrium Value Ref SI dim, ES (H) 5.4 cm 3.4 - 5.3 Pulmonary artery Value Ref ML dim, ES, A4C 4.4 cm 2.6 - 4.4 Pressure, S 40.0 mm Hg ----- Estimated RAP 8 mm Hg Aortic valve Value Ref Mary diam, ED 2.1 cm Peak v, S 2.5 m/sec Legend: (L) and (H) andrew values outside specified reference range. Prepared and electronically signed by Amanda Alamo MD 12/29/2018 12:28
[2018-12-29] MEDS ORDERED: Ferric Gluconate IV* 25 MG in NS 0.9% 50 ML* 50 ML IVPB ONE (13:01)
[2018-12-29] MEDS ORDERED: Furosemide IV* 10 MG/ML VIAL (40 MG) IV ONE (13:01)
--- NOTE | 2018-12-29 13:08 | PN ---
Subjective Date of Service: 12/29/18 Interval History: Pt feels " a llitle better", still appears to have increased WOB when talking. Legs wrapped in AJAY bandages today Objective Active Medications: Albuterol/Ipratropium (Duoneb (Albuterol 2.5 Mg/Ipratropium 0.5 Mg)) 1 neb INH QID PRN PRN Reason: SHORTNESS OF BREATH Ascorbic Acid (Vitamin C Tab*) 1,000 mg PO DAILY [facility] Last Admin: 12/29/18 08:57 Dose: 1,000 mg Aspirin (Aspirin Ec Tab*) 81 mg PO DAILY [facility] Last Admin: 12/29/18 08:55 Dose: 81 mg Atorvastatin Calcium (Lipitor*) 10 mg PO BEDTIME [facility] Last Admin: 12/28/18 19:55 Dose: 10 mg Azithromycin (Zithromax Tab*) 250 mg PO DAILY [facility] Last Admin: 12/29/18 08:54 Dose: 250 mg Cetirizine HCl (Zyrtec*) 10 mg PO DAILY [facility] Last Admin: 12/29/18 08:55 Dose: 10 mg Cholecalciferol (Vitamin D Tab*) 2,000 units PO DAILY [facility] Last Admin: 12/29/18 08:58 Dose: 2,000 units Docusate Sodium (Colace Cap*) 100 mg PO DAILY [facility] Last Admin: 12/29/18 08:55 Dose: 100 mg Famotidine (Pepcid Tab*) 20 mg PO DAILY [facility] Last Admin: 12/29/18 08:58 Dose: 20 mg Furosemide (Lasix Iv*) 40 mg IV ONCE ONE Stop: 12/29/18 13:02 Guaifenesin (Mucinex*) 600 mg PO BID PRN PRN Reason: CONGESTION Heparin Sodium (Porcine) (Heparin Vial(*)) 5,000 units SUBCUT Q8HR [facility] Last Admin: 12/29/18 06:02 Dose: 5,000 units Ferric Sodium Gluconate (Complex 25 mg/ Sodium Chloride) 52 mls @ 52 mls/hr IVPB ONCE ONE Stop: 12/29/18 14:00 Ferric Sodium Gluconate Complex 100 mg/ Sodium Chloride 108 mls @ 0 mls/hr IVPB ONCE ONE Stop: 12/29/18 13:02 Ferric Sodium Gluconate Complex 100 mg/ Sodium Chloride 108 mls @ 0 mls/hr IVPB ONCE ONE Stop: 12/30/18 13:03 Lorazepam (Ativan Tab(*)) 0.5 mg PO Q6H PRN PRN Reason: ANXIETY Last Admin: 12/28/18 21:28 Dose: 0.5 mg Mometasone Furoate/Formoterol Fumar (Dulera 200/5 Mdi*) 2 puff INH BID [facility] Last Admin: 12/29/18 07:58 Dose: 2 puff Montelukast Sodium (Singulair Tab*) 10 mg PO DAILY [facility] Last Admin: 12/29/18 08:56 Dose: 10 mg Multivitamins/Minerals (Theragran/Minerals Tab*) 1 tab PO DAILY [facility] Last Admin: 12/29/18 08:55 Dose: 1 tab Vitamin E Cap* 100 (Units) 1 dose PO DAILY [facility] Last Admin: 12/29/18 09:08 Dose: Not Given Oxybutynin Chloride (Ditropan Xl Tab*) 10 mg PO DAILY [facility] Last Admin: 12/29/18 08:59 Dose: 10 mg Polyethylene Glycol/Electrolytes (Miralax*) 17 gm PO DAILY PRN PRN Reason: CONSTIPATION Prednisone (Deltasone Tab*) 40 mg PO DAILY [facility] Last Admin: 12/29/18 08:58 Dose: 40 mg Pregabalin (Lyrica Cap(*)) 25 mg PO DAILY [facility] Last Admin: 12/29/18 08:59 Dose: 25 mg Pregabalin (Lyrica Cap(*)) 50 mg PO BEDTIME [facility] Last Admin: 12/28/18 19:55 Dose: 50 mg Senna (Senokot 8.6 Mg Tab*) 1 tab PO DAILY PRN PRN Reason: CONSTIPATION Tramadol HCl (Ultram*) 50 mg PO Q8H PRN PRN Reason: PAIN - MODERATE Last Admin: 12/28/18 13:02 Dose: 50 mg Vital Signs - 8 hr 12/29/18 12/29/18 07:15 08:59 Temperature 98.1 F Pulse Rate 78 Respiratory 16 20 Rate Blood Pressure 106/65 (mmHg) O2 Sat by Pulse 100 Oximetry Oxygen Devices in Use Now: Nasal Cannula Appearance: 78 yo f in nAD, AAOx3 Eyes: No Scleral Icterus, PERRLA Ears/Nose/Mouth/Throat: NL Teeth, Lips, Gums, Mucous Membranes Moist Neck: NL Appearance and Movements; NL JVP, No Thyroid Enlargement, Masses Respiratory: Symmetrical Chest Expansion and Respiratory Effort, - - diffuse scattered wheezes b/l Cardiovascular: NL Sounds; No Murmurs; No JVD Abdominal: NL Sounds; No Tenderness; No Distention Lymphatic: No Cervical Adenopathy Extremities: No Clubbing, Cyanosis, - - +2 pedal edema b/l Skin: No Nodules or Sclerosis Neurological: Alert and Oriented x 3, NL Muscle Strength and Tone Result Diagrams: 12/29/18 06:55 12/29/18 06:55 Microbiology and Other Data: Microbiology 12/28/18 01:35 Urine Culture - Final Urine No Growth (<1,000 CFU/mL) Assess/Plan/Problems-Billing Assessment: 78W with COPD on 4L home O2, HFrEF 40-45%, AAA, colon cancer s/p resection/chemo, presents with subacute progressive dyspnea, productive cough, LE edema and wt gain - Patient Problems (1) Acute and chronic respiratory failure with hypoxia Comment: - Resolving - Likely a combination of CHF exacerbation and possibly COPD exacerbation - Patient uses 4L oxygen at home - cont Prednisone - Continue home inhalers (2) COPD exacerbation Comment: - Continue steroids, Azithro (3) Diastolic CHF, acute on chronic Comment: - Vascular congestion noted on cxray, -diuresed well with Lasix 60 at admission. Toady with increasing C02 on BMP. will stop IV diuretic and restart home dose of Lasix and metolazone - Echo today shows EF at 30-35% with mod and mod to severe MR-will ask DR. Shultz (who is pt's guard sergeant) for consult tomorrow (4) Abdominal aortic aneurysm (AAA) 30 to 34 mm in diameter Comment: - US 07/22/18 Reveals 2.8 cm - Continue outpatient surveillance (5) Aortic stenosis Comment: - Recent echo 06/21/18 EF 45% and shows moderate to severe SHADIA 1.2 cm 2 (6) SACHA (acute kidney injury) Comment: suspect due to CHF, improved with diuresis. (7) Anemia Comment: - Chronic ACD, with worsening, now got better after diuresis, f/u stool guaiac -pt stated that she cannot tolerate PO iron du to GI symptoms. will tx with IV iron daily -iron studies pending (8) Hyperglycemia Comment: mild, likely due to steroids (9) DVT prophylaxis Comment: - SQH Status and Disposition: inpatient
[2018-12-29 13:40] LABS: Corrected Retic Count 0.7 % (0.5-1.5); Hematocrit for Retic CNT 24 % (35-47); Immature Retic Fraction 0.44; RBC Retic Count 2.79 10^6/uL (3.70-4.87)
[2018-12-29 13:50] LABS: % Iron Saturation 10 % (15-55); Iron 31 ug/dL (50-212); Total Iron Binding Capacity 307 mcg/dL (250-450); Transferrin 219 mg/dL (203-362)
[2018-12-29 14:12] LABS: Ferritin 34.7 ng/mL (11-307)
[2018-12-29 14:15] LABS: Folate > 20.00 ng/mL (>3.99)
[2018-12-29] MEDS ORDERED: Ferric Gluconate IV* 100 MG in NS 0.9% 100 ML* 100 ML IVPB ONE (16:00)
[2018-12-29] MEDS: Pregabalin CAP(*) 50 MG PO SCH (20:37)
[2018-12-29] MEDS: Atorvastatin* 10 MG TAB PO SCH (20:37)
[2018-12-29] MEDS: traMADol TAB* 50 MG PO PRN (20:48)
[2018-12-29] MEDS: LORazepam TAB(*) 0.5 MG PO PRN (20:50)
[2018-12-30] MEDS ORDERED: oxyCODONE TAB* 5 MG TAB PO ONE (00:13)
[2018-12-30] MEDS ORDERED: Gabapentin CAP(*) 100 MG PO ONE (00:33)
[2018-12-30 05:45] LABS: ABS Lymphocytes 0.9 10^3/ul (1.0-4.8); ABS Monocytes 0.9 10^3/ul (0-0.8); ABS Neutrophils 4.6 10^3/ul (1.5-7.7); Eosinophil % 0.8 %; Hematocrit 25 % (35-47); Hemoglobin 8.4 g/dL (12.0-16.0); Lymphocyte % 14.1 %; Mean Corpuscular HGB Conc 34 g/dL (31-36); Mean Corpuscular Hemoglobin 29 pg (27-31); Mean Corpuscular Volume 86 fL (80-97); Mean Platelet Volume 7.7 fL (7.4-10.4); Platelet Count 322 10^3/uL (150-450); Red Blood Count 2.89 10^6 /uL (3.70-4.87); Red Cell Distribution Width 16 % (10-15); White Blood Count 6.4 10^3/uL (3.5-10.8)
[2018-12-30 06:02] LABS: BUN/Creatinine Ratio 34.8 (8-20); Calcium 8.6 mg/dL (8.6-10.3); EGFR African American 45.9 (>60); EGFR Non-African American 37.9 (>60); Potassium 3.9 mmol/L (3.5-5.0)
[2018-12-30] MEDS: Heparin VIAL(*) 5000 UNITS/ML VIAL (FIVE THOUSAND) SUBCUT SCH (06:45)
[2018-12-30] MEDS: Mometasone/Formoter 200/5 MDI INH SCH ×2 (08:35→20:54)
[2018-12-30] MEDS ORDERED: Pantoprazole IV* 40 MG IV SCH (09:00)
[2018-12-30] MEDS: Cholecalciferol TAB* 1000 UNITS PO SCH (09:11)
[2018-12-30] MEDS: Oxybutynin XL TAB* 5 MG PO SCH (09:11)
[2018-12-30] MEDS: predniSONE TAB* 20 MG PO SCH (09:11)
[2018-12-30] MEDS: Pregabalin CAP(*) 25 MG PO SCH (09:12)
[2018-12-30] MEDS: Metolazone TAB* 5 MG PO SCH (09:12)
[2018-12-30] MEDS: Docusate CAP* 100 MG PO SCH (09:12)
[2018-12-30] MEDS: Cetirizine* 10 MG TAB PO SCH (09:12)
[2018-12-30] MEDS: Ascorbic Acid TAB* 500 MG PO SCH (09:12)
[2018-12-30] MEDS: Famotidine TAB* 20 MG PO SCH (09:13)
[2018-12-30] MEDS: Furosemide TAB* 20 MG PO SCH (09:13)
[2018-12-30] MEDS: Azithromycin TAB* 250 MG PO SCH (09:13)
[2018-12-30] MEDS: Multivitamins/Minerals TAB PO SCH (09:14)
[2018-12-30] MEDS: Montelukast Sodium TAB* 10 MG PO SCH (09:14)
[2018-12-30] MEDS: VITAMIN E 100 UNIT PO SCH (09:19)
[2018-12-30] MEDS ORDERED: Furosemide IV* 10 MG/ML VIAL (40 MG) IV ONE (13:59)
[2018-12-30] MEDS ORDERED: Ferric Gluconate IV* 100 MG in NS 0.9% 100 ML* 100 ML IVPB ONE (14:00)
--- NOTE | 2018-12-30 15:55 | PN ---
Subjective Date of Service: 12/30/18 Interval History: Pt got upset when she was placed on clear diet due to heme+ stool. will d/w DR. Rubalcava, but pt requested to be placed on cardiac diet for now. Awaiting 's consult Legs edema is better with AJAY bandages. SOB at baseline Objective Active Medications: Albuterol/Ipratropium (Duoneb (Albuterol 2.5 Mg/Ipratropium 0.5 Mg)) 1 neb INH QID PRN PRN Reason: SHORTNESS OF BREATH Ascorbic Acid (Vitamin C Tab*) 1,000 mg PO DAILY [facility] Last Admin: 12/30/18 09:12 Dose: 1,000 mg Atorvastatin Calcium (Lipitor*) 10 mg PO BEDTIME [facility] Last Admin: 12/29/18 20:37 Dose: 10 mg Azithromycin (Zithromax Tab*) 250 mg PO DAILY [facility] Last Admin: 12/30/18 09:13 Dose: 250 mg Cetirizine HCl (Zyrtec*) 10 mg PO DAILY [facility] Last Admin: 12/30/18 09:12 Dose: 10 mg Cholecalciferol (Vitamin D Tab*) 2,000 units PO DAILY [facility] Last Admin: 12/30/18 09:11 Dose: 2,000 units Docusate Sodium (Colace Cap*) 100 mg PO DAILY [facility] Last Admin: 12/30/18 09:12 Dose: 100 mg Famotidine (Pepcid Tab*) 20 mg PO DAILY [facility] Last Admin: 12/30/18 09:13 Dose: 20 mg Furosemide (Lasix Tab*) 60 mg PO DAILY [facility] Last Admin: 12/30/18 09:13 Dose: 60 mg Guaifenesin (Mucinex*) 600 mg PO BID PRN PRN Reason: CONGESTION Lorazepam (Ativan Tab(*)) 0.5 mg PO Q6H PRN PRN Reason: ANXIETY Last Admin: 12/29/18 20:50 Dose: 0.5 mg Metolazone (Zaroxolyn Tab*) 2.5 mg PO DAILY [facility] Last Admin: 12/30/18 09:12 Dose: 2.5 mg Mometasone Furoate/Formoterol Fumar (Dulera 200/5 Mdi*) 2 puff INH BID [facility] Last Admin: 12/30/18 08:35 Dose: 2 puff Montelukast Sodium (Singulair Tab*) 10 mg PO DAILY [facility] Last Admin: 12/30/18 09:14 Dose: 10 mg Multivitamins/Minerals (Theragran/Minerals Tab*) 1 tab PO DAILY [facility] Last Admin: 12/30/18 09:14 Dose: 1 tab Vitamin E Cap* 100 (Units) 1 dose PO DAILY [facility] Last Admin: 12/30/18 09:19 Dose: Not Given Oxybutynin Chloride (Ditropan Xl Tab*) 10 mg PO DAILY [facility] Last Admin: 12/30/18 09:11 Dose: 10 mg Pantoprazole Sodium (Protonix Iv*) 40 mg IV Q12H [facility] Last Admin: 12/30/18 09:14 Dose: 40 mg Polyethylene Glycol/Electrolytes (Miralax*) 17 gm PO DAILY PRN PRN Reason: CONSTIPATION Prednisone (Deltasone Tab*) 40 mg PO DAILY [facility] Last Admin: 12/30/18 09:11 Dose: 40 mg Pregabalin (Lyrica Cap(*)) 25 mg PO DAILY [facility] Last Admin: 12/30/18 09:12 Dose: 25 mg Pregabalin (Lyrica Cap(*)) 50 mg PO BEDTIME [facility] Last Admin: 12/29/18 20:37 Dose: 50 mg Senna (Senokot 8.6 Mg Tab*) 1 tab PO DAILY PRN PRN Reason: CONSTIPATION Tramadol HCl (Ultram*) 50 mg PO Q8H PRN PRN Reason: PAIN - MODERATE Last Admin: 12/29/18 20:48 Dose: 50 mg Vital Signs - 8 hr 12/30/18 12/30/18 12/30/18 08:00 08:36 09:12 Temperature Pulse Rate 110 Respiratory 20 18 18 Rate Blood Pressure (mmHg) O2 Sat by Pulse 95 Oximetry 12/30/18 12/30/18 11:35 11:45 Temperature 98.3 F Pulse Rate 82 Respiratory 18 20 Rate Blood Pressure 104/59 (mmHg) O2 Sat by Pulse Oximetry Oxygen Devices in Use Now: Nasal Cannula Appearance: 78 yo f in nAD, aAOx3 Eyes: No Scleral Icterus, PERRLA Ears/Nose/Mouth/Throat: NL Teeth, Lips, Gums, Mucous Membranes Moist Neck: NL Appearance and Movements; NL JVP, Trachea Midline Respiratory: Symmetrical Chest Expansion and Respiratory Effort, - - decreased breath sounds b/l bases Cardiovascular: RRR, - - 2/6 INOCENCIA at RUSB Abdominal: NL Sounds; No Tenderness; No Distention, No Hepatosplenomegaly Lymphatic: No Cervical Adenopathy Extremities: - - +1 pitting ankle edema and distal LE's edema improving with AJAY bandages Skin: No Nodules or Sclerosis Neurological: Alert and Oriented x 3, NL Muscle Strength and Tone Result Diagrams: 12/30/18 05:28 12/30/18 05:28 Microbiology and Other Data: Microbiology 12/28/18 01:35 Urine Culture - Final Urine No Growth (<1,000 CFU/mL) Assess/Plan/Problems-Billing Assessment: 78W with COPD on 4L home O2, HFrEF 40-45%, AAA, colon cancer s/p resection/chemo, presents with subacute progressive dyspnea, productive cough, LE edema and wt gain - Patient Problems (1) Acute and chronic respiratory failure with hypoxia Comment: - Resolving - Likely a combination of CHF exacerbation and possibly COPD exacerbation - Patient uses 4L oxygen at home - cont Prednisone - Continue home inhalers (2) COPD exacerbation Comment: - Continue steroids, Azithro (3) Diastolic CHF, acute on chronic Comment: - Vascular congestion noted on cxray, -diuresed well with Lasix 60 mg IV at admission. Today will cont home dose of Lasix and metolazone and add on Lasix 40 mg IV in PM x1 - Echo 12/29/18 shows EF at 30-35% with mod and mod to severe MR-will asked DR. Shultz (who is pt's sign hanger supervisor) for consult (4) Abdominal aortic aneurysm (AAA) 30 to 34 mm in diameter Comment: - US 07/22/18 Reveals 2.8 cm - Continue outpatient surveillance (5) Aortic stenosis Comment: - Recent echo 06/21/18 EF 45% and shows moderate to severe SHADIA 1.2 cm 2 (6) SACHA (acute kidney injury) Comment: suspect due to CHF, improved with diuresis. (7) Anemia Comment: - Chronic ACD, with worsening, got better after diuresis - stool guaiac positive-asked GI to see pt and started on PPI BID, although I'm not sure if she is a candidate for EGD due to resp status -pt stated that she cannot tolerate PO iron due to GI symptoms. tx with IV iron daily -iron studies indicated ACD + Fe defficiency. (8) Hyperglycemia Comment: mild, likely due to steroids (9) DVT prophylaxis Comment: - SQH held due to stool guaiac positive, cont SCD's Status and Disposition: inpatient
--- NOTE | 2018-12-30 17:16 | CONS ---
CC: Dr. Angie Zimmer * CARDIOLOGY CONSULTATION: DATE OF CONSULT: 12/30/18 INDICATION FOR CONSULTATION: Congestive heart failure, aortic stenosis. HISTORY OF PRESENT ILLNESS: The patient is a 78-year-old woman with multiple medical problems, who was admitted to the hospital with congestive heart failure , increased lower extremity edema. The patient has known LV dysfunction; history of moderate if not severe aortic stenosis; moderate if not severe mitral regurgitation; pulmonary hypertension; coronary artery disease; COPD, on chronic oxygen. The patient had been seen in our office on 10/04/18. At that time, the patient appeared to be hemodynamically stable, her blood pressure was 104/78, she was on appropriate medications, and her lower extremity only showed mild lower extremity edema. The patient states over the last couple of days, she has had increasing edema and increasing shortness of breath. She denied any angina. She denied any palpitations. She denied any lightheadedness, dizziness, or syncope. The patient was admitted to the hospital. Her laboratory studies did show that she had a degree of anemia with a hemoglobin of 8.3 and hematocrit of 25. Her baseline hemoglobin is around 11. The patient was also noted to have some renal insufficiency with a creatinine of 1.5. Her BNP was minimally elevated at 524. Her troponin was negative at 0.02. An echocardiogram here in the hospital demonstrated [id number] LV dysfunction, ejection fraction of 30% to 35%. She had [id number] mitral regurgitation and at least moderate if not severe aortic stenosis. She had estimated PA systolic pressure of around 40 mmHg. Since being in the hospital, the patient has been diuresed. Her weight has dropped 2 pounds. Today, the patient feels relatively comfortable. She is sitting in bed. Her feet are up and they are Christian wrapped. PAST MEDICAL HISTORY: Hypertension, COPD, congestive heart failure, colon cancer in 2007, vertebral fractures, aortic aneurysm. PAST SURGICAL HISTORY: Tonsillectomy, hip fracture repair in 2012, hip replacement in 2013. OUTPATIENT MEDICATIONS: 1. Oxygen as needed. 2. Sertraline 10 mg daily. 3. Irbesartan 150 mg a day. 4. Ventolin inhaler. 5. Lasix 60 mg a day. 6. Nebulizer ipratropium. 7. Albuterol inhaler. 8. Symbicort inhaler. 9. Lyrica 25 mg in the morning, 50 mg at night. 10. Prolia as directed. 11. Simvastatin 20 mg a day. 12. Multiple supplements. 13. Aspirin 81 mg a day. 14. Iron tablets. 15. Singulair 10 mg a day. 16. Tessalon Perles. 17. MiraLAX. 18. Ibuprofen. The patient states she has been taking a lot of ibuprofen recently 400 mg 3 times a day. ALLERGIES: She is intolerant of penicillin, codeine. She has a CONTRAST DYE allergy. PHYSICAL EXAM: Height is 5 feet 3 inches, weight 210 pounds, temperature 98, heart rate 82, blood pressure 104/58, respiratory rate is 20, oxygen saturation 95% on 4 L. Sclerae anicteric. Oropharynx is pink without erythema. Carotids are 2+ with bilateral bruits. JVD is normal. Thyroid is normal. Cardiac Exam: S1, S2 with a 2/6 systolic ejection murmur heard both at the right upper sternal border and at the apex. PMI is difficult to assess. Lungs are clear to auscultation anteriorly. I could not sit the patient forward and do posterior auscultation. Abdomen is obese, soft, nontender, nondistended with normoactive bowel sounds. Extremities show what appeared to be 2+ edema. Her ankles are wrapped in Christian bandages. She has 2+ pulses in her popliteal. The patient is awake, alert, and oriented. DIAGNOSTIC STUDIES/LAB DATA: Laboratory studies were as described above. Echocardiogram is as described above. EKG shows normal sinus rhythm, incomplete right bundle branch block, let axis deviation, PVCs. IMPRESSION AND PLAN: This is a 78-year-old female with a history of congestive heart failure, history of chronic obstructive pulmonary disease, who was admitted to the hospital with shortness of breath and worsening lower extremity edema. The patient does have severe 2 valvular disease in her aortic valve and her mitral valve. She has LV dysfunction. She has renal insufficiency and chronic obstructive pulmonary disease. The patient is admitted to the hospital with newly diagnosed anemia and heme- positive stools. The patient has multiple medical problems of which it is going to be difficult to actively treat all of them. The patient's congestive heart failure is end stage. The patient would need both an aortic and mitral valve procedures to stabilize her cardiac condition. The patient's other medical problems would likely preclude this. I did talk to the patient about palliative care. The patient became upset and was unaware that her heart was that bad. The patient in the past has been discussed her long-term cardiac goals both my nurse practitioner and by Dr. Alina Mukherjee from the palliative care service. At this point, the patient will continue on diuresis. The patient will be seen tomorrow by the palliative care service. I did talk to the patient about potentially getting that consultation here in [place] with Dr. Gonzalez regarding potential aortic valve replacement and mitral valve clipping. Again, I am not convinced that the patient is a candidate for that, but I did offer it as a consultation. For now, the patient's blood pressure is stable. Her blood pressure systolic is 104. I do not think any other medications can be added. The patient has been intolerant of beta-blockers in the past because of her chronic obstructive pulmonary disease. [id number]/CPS #: [id number] MTDD
--- NOTE | 2018-12-30 19:05 | CONS ---
CC: Echo Rivero NP; Dr. Shultz; Dr. Chestre; Dr. Graves * CONSULTATION REPORT: DATE OF CONSULT: 12/30/18 REQUESTING PHYSICIAN: Dr. Muñoz. INDICATION: Anemia. NARRATIVE: Mrs. Coburn is a pleasant 78-year-old female who has a history of COPD; congestive heart failure; colon cancer in 2007, status post resection; severe aortic stenosis; hyperlipidemia; hypertension, who is admitted to the hospital with worsening shortness of breath, felt to be secondary to both her cardiac and pulmonary issues. GI was consulted for worsening anemia. The patient denies any nausea, vomiting, or abdominal pain. No change in her stools. No constipation. No pushing or straining. She denies any blood in her stools. No black and tarry stools. No bright red blood per rectum. No unintentional weight loss. Her last colonoscopy was many years ago. She does take a regular baby aspirin and then she also takes 2 aspirin related products at night to sleep. She denies any other nonsteroidals. PAST MEDICAL HISTORY: Please see the HPI. Additionally, she has an aortic aneurysm, coronary artery disease, neuropathy, anxiety, fatigue. MEDICATIONS UPON ADMISSION: Include: 1. Guaifenesin. 2. Albuterol. 3. Cetirizine. 4. Symbicort. 5. Aspirin. 6. Ativan. 7. Irbesartan. 8. Lasix. 9. MiraLAX. 10. Singulair. 11. Simvastatin. 12. Senna. 13. Lyrica. 14. Oxybutynin. ALLERGIES: CODEINE, IODINE, PENICILLIN. FAMILY HISTORY: Congestive heart failure. SOCIAL HISTORY: She quit smoking approximately 14 years ago. No IV drug use. No alcohol use. REVIEW OF SYSTEMS: Twelve systems were reviewed. Other than that mentioned in the HPI were unremarkable. PHYSICAL EXAMINATION: Temperature is 98.3, blood pressure is 104/59, pulse is 82, respiratory rate of 20, she is on 4 L of oxygen. General: Chronically ill - appearing female, in no apparent distress, sitting in a chair, eating dinner. HEENT: Mucous membranes are moist without lesions, ulcers, or exudates. Neck is supple. Trachea is midline. Heart: Regular rate and rhythm. Lungs: Faint breath sounds bilaterally, not much air movement. No wheezes. No rhonchi. Abdomen is morbidly obese, positive bowel sounds, soft, nontender and nondistended. No hepatosplenomegaly, masses, rebound, or guarding. Skin is warm and dry, pitting lower extremity edema. DIAGNOSTIC STUDIES/LAB DATA: Labs of note, white count of 6.4, hemoglobin is 8.4 with her baseline of approximately 11, platelet count of 322. INR is 1.09. Her BUN is 47, creatinine is 1.35. ASSESSMENT AND PLAN: This is a pleasant 78-year-old female with worsening shortness of breath, fatigue and anemia. The anemia is likely multifactorial, anemia of chronic disease in addition to potential GI blood loss. She did have a heme-positive stool. She does take at least 2 different NSAID containing products. We discussed peptic ulcer disease. We discussed colorectal issues. She is concerned about the risk and safety of any procedures, I share the same concerns. We did discuss performing an upper endoscopy, potentially with anesthesia or unsedated. She is not quite sure about this. I think performing a colonoscopy would be too difficult for her to handle. We also discussed potentially starting her on a PPI and if this is peptic ulcer disease secondary to her NSAIDs, the PPI may help heal brings up and her hemoglobin improve. She would like to pursue conservative measures at this point. We will continue to follow along checking hemoglobin. The patient should remain on a PPI and GI will continue to follow along on a daily basis. [id number]/[facility] #: [id number] EULALIO
[2018-12-30] MEDS: traMADol TAB* 50 MG PO PRN (22:26)
[2018-12-30] MEDS: Pantoprazole TAB * 40 MG TAB PO SCH (22:27)
[2018-12-30] MEDS: LORazepam TAB(*) 0.5 MG PO PRN (22:27)
[2018-12-30] MEDS: Atorvastatin* 10 MG TAB PO SCH (22:28)
[2018-12-30] MEDS: Pregabalin CAP(*) 50 MG PO SCH (22:28)
[2018-12-31] MEDS: Mometasone/Formoter 200/5 MDI INH SCH ×2 (07:57→21:26)
[2018-12-31 09:27] LABS: ABS Eosinophils 0.1 10^3/ul (0-0.6); ABS Monocytes 0.9 10^3/ul (0-0.8); ABS Neutrophils 5.7 10^3/ul (1.5-7.7); Eosinophil % 0.7 %; Hematocrit 29 % (35-47); Hemoglobin 9.7 g/dL (12.0-16.0); Lymphocyte % 12.9 %; Mean Corpuscular HGB Conc 34 g/dL (31-36); Mean Corpuscular Hemoglobin 30 pg (27-31); Mean Corpuscular Volume 87 fL (80-97); Mean Platelet Volume 8.1 fL (7.4-10.4); Platelet Count 360 10^3/uL (150-450); Red Blood Count 3.29 10^6 /uL (3.70-4.87); Red Cell Distribution Width 16 % (10-15); White Blood Count 7.6 10^3/uL (3.5-10.8)
[2018-12-31 09:38] LABS: BUN/Creatinine Ratio 35.2 (8-20); Blood Urea Nitrogen 43 mg/dL (6-24); Calcium 9.4 mg/dL (8.6-10.3); Chloride 85 mmol/L (101-111); EGFR African American 51.6 (>60); EGFR Non-African American 42.6 (>60); Glucose 101 mg/dL (70-100); Potassium 3.6 mmol/L (3.5-5.0); Sodium 136 mmol/L (135-145)
[2018-12-31] MEDS: Metolazone TAB* 5 MG PO SCH (09:59)
[2018-12-31] MEDS: Pantoprazole TAB * 40 MG TAB PO SCH ×2 (10:00→21:31)
[2018-12-31] MEDS: Oxybutynin XL TAB* 5 MG PO SCH (10:00)
[2018-12-31] MEDS: Cetirizine* 10 MG TAB PO SCH (10:01)
[2018-12-31] MEDS: Montelukast Sodium TAB* 10 MG PO SCH (10:01)
[2018-12-31] MEDS: Furosemide TAB* 20 MG PO SCH (10:02)
[2018-12-31] MEDS: Cholecalciferol TAB* 1000 UNITS PO SCH (10:02)
[2018-12-31] MEDS: Ascorbic Acid TAB* 500 MG PO SCH (10:03)
[2018-12-31] MEDS: predniSONE TAB* 20 MG PO SCH (10:03)
[2018-12-31] MEDS: Azithromycin TAB* 250 MG PO SCH (10:03)
[2018-12-31] MEDS: Docusate CAP* 100 MG PO SCH (10:03)
[2018-12-31] MEDS: Famotidine TAB* 20 MG PO SCH (10:04)
[2018-12-31] MEDS: Multivitamins/Minerals TAB PO SCH (10:04)
[2018-12-31] MEDS: Pregabalin CAP(*) 25 MG PO SCH (10:04)
[2018-12-31 10:06] LABS: CO2 Carbon Dioxide 46 mmol/L (22-32)
[2018-12-31] MEDS: VITAMIN E 100 UNIT PO SCH (10:07)
--- NOTE | 2018-12-31 12:03 | CONSULT ---
Palliative / Hospice Consult Ordering Provider: Elinor Muñoz - PCP-Mat Referal Reason: Goals of care discussion/colace & senna/oxycodone - Subjective Code Status: DNR Advance Directives Location: No Advance Directives MOLST Part A Completed: Yes - completed with pt MOLST Part E Completed:: Yes - completed with pt - History or Present Illness History or Present Illness: 78yo female with end stage COPD presents with SOB and leg swelling. PMH is significant for end stage COPD on 4 liters at home, CHF systolic, HTN, hyperlipidemia, moderate aortic stenosis, anxiety, colon ca 2008 s/p resection & chemo, renal insufficiency, R metatarsal ulcer healing, aortic aneurysm (30- 34mm), CAD 50% LAD & 30% L main lesion and peripheral neuropathy. 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 Studies show doppler-neg, Echo-EF 30-35%, mod- severe mitral regurge and mod , CXR-possibility of CHF, ekg-nsr, H/H 9.7/29, BUN/Cr 43/1.22, egfr 42.6, inr 1.09, Fe 31, alb 2.9 & BNP 524. Pt is admitted with acute on chronic respiratory failure, COPD exacerbation, CHF and anemia. Pt has been admitted 6x since Mar 2018. All history is from pt and medical records. Lab Values: Abnormal Lab Results 12/27/18 12/31/18 12/31/18 18:24 08:58 08:58 WBC 7.6 RBC 3.29 L Hgb 9.7 L Hct 29 L MCV 87 MCH 30 MCHC 34 RDW 16 H Plt Count 360 MPV 8.1 Neut % (Auto) 74.4 Lymph % (Auto) 12.9 [place] % (Auto) 11.8 Eos % (Auto) 0.7 Baso % (Auto) 0.2 Absolute Neuts (auto) 5.7 Absolute Lymphs (auto) 1.0 Absolute Monos (auto) 0.9 H Absolute Eos (auto) 0.1 Absolute Basos (auto) 0.0 Absolute Nucleated RBC 0.0 Nucleated RBC % 0.0 Haptoglobin 322 H Sodium 136 Potassium 3.6 Chloride 85 L Carbon Dioxide 46 H* Anion Gap Not Reportable BUN 43 H Creatinine 1.22 H Est GFR ( Amer) 51.6 Est GFR (Non-Af Amer) 42.6 BUN/Creatinine Ratio 35.2 H Glucose 101 H Calcium 9.4 Laboratory Last Values WBC 7.6 10^3/uL (3.5-10.8) 12/31/18 08:58 RBC 3.29 10^6 /uL (3.70-4.87) L 12/31/18 08:58 RBC (Retic) 2.79 10^6/uL (3.70-4.87) L 12/29/18 06:55 Hgb 9.7 g/dL (12.0-16.0) L 12/31/18 08:58 Hct 29 % (35-47) L 12/31/18 08:58 HCT (Retic) 24 % (35-47) L 12/29/18 06:55 MCV 87 fL (80-97) 12/31/18 08:58 MCH 30 pg (27-31) 12/31/18 08:58 MCHC 34 g/dL (31-36) 12/31/18 08:58 RDW 16 % (10-15) H 12/31/18 08:58 Plt Count 360 10^3/uL (150-450) 12/31/18 08:58 MPV 8.1 fL (7.4-10.4) 12/31/18 08:58 Neut % (Auto) 74.4 % 12/31/18 08:58 Lymph % (Auto) 12.9 % 12/31/18 08:58 [place] % (Auto) 11.8 % 12/31/18 08:58 Eos % (Auto) 0.7 % 12/31/18 08:58 Baso % (Auto) 0.2 % 12/31/18 08:58 Absolute Neuts (auto) 5.7 10^3/ul (1.5-7.7) 12/31/18 08:58 Absolute Lymphs (auto) 1.0 10^3/ul (1.0-4.8) 12/31/18 08:58 Absolute Monos (auto) 0.9 10^3/ul (0-0.8) H 12/31/18 08:58 Absolute Eos (auto) 0.1 10^3/ul (0-0.6) 12/31/18 08:58 Absolute Basos (auto) 0.0 10^3/ul (0-0.2) 12/31/18 08:58 Absolute Nucleated RBC 0.0 10^3/ul 12/31/18 08:58 Nucleated RBC % 0.0 12/31/18 08:58 Retic Count, Calc 1.3 % (0.5-1.5) 12/29/18 06:55 Corrected Retic Count 0.7 % (0.5-1.5) 12/29/18 06:55 Retic Shift Factor 2.0 12/29/18 06:55 Retic Production Index 0.40 12/29/18 06:55 Immature Retic Fraction 0.44 12/29/18 06:55 Mean Retic Volume 110.4 12/29/18 06:55 Haptoglobin 322 mg/dL (30 - 200) H 12/27/18 18:24 INR (Anticoag Therapy) 1.09 (0.82-1.09) 12/27/18 18:24 Sodium 136 mmol/L (135-145) 12/31/18 08:58 Potassium 3.6 mmol/L (3.5-5.0) 12/31/18 08:58 Chloride 85 mmol/L (101-111) L 12/31/18 08:58 Carbon Dioxide 46 mmol/L (22-32) H* 12/31/18 08:58 Anion Gap Not Reportable 12/31/18 08:58 BUN 43 mg/dL (6-24) H 12/31/18 08:58 Creatinine 1.22 mg/dL (0.51-0.95) H 12/31/18 08:58 Est GFR ( Amer) 51.6 (>60) 12/31/18 08:58 Est GFR (Non-Af Amer) 42.6 (>60) 12/31/18 08:58 BUN/Creatinine Ratio 35.2 (8-20) H 12/31/18 08:58 Glucose 101 mg/dL (70-100) H 12/31/18 08:58 Lactic Acid 0.7 mmol/L (0.5-2.0) 12/28/18 06:31 Calcium 9.4 mg/dL (8.6-10.3) 12/31/18 08:58 Iron 31 ug/dL (50-212) L 12/29/18 06:55 TIBC 307 mcg/dL (250-450) 12/29/18 06:55 % Saturation 10 % (15-55) L 12/29/18 06:55 Unsat Iron Binding < 292 ug/dL 12/29/18 06:55 Transferrin 219 mg/dL (203-362) 12/29/18 06:55 Ferritin 34.7 ng/mL (11-307) 12/29/18 06:55 Total Bilirubin 0.30 mg/dL (0.2-1.0) 12/27/18 18:24 AST 23 U/L (13-39) 12/27/18 18:24 ALT 14 U/L (7-52) 12/27/18 18:24 Alkaline Phosphatase 59 U/L (34-104) 12/27/18 18:24 Lactate Dehydrogenase 158 U/L (140-271) 12/27/18 18:24 Troponin I 0.02 ng/mL (<0.04) 12/27/18 18:24 C-Reactive Protein 39.64 mg/L (<8.01) H 12/27/18 18:24 B-Natriuretic Peptide 524 pg/mL (<=100) H 12/27/18 18:24 Total Protein 6.2 g/dL (6.4-8.9) L 12/27/18 18:24 Albumin 2.9 g/dL (3.2-5.2) L 12/27/18 18:24 Globulin 3.3 g/dL (2-4) 12/27/18 18:24 Albumin/Globulin Ratio 0.9 (1-3) L 12/27/18 18:24 Vitamin B12 436 pg/mL (180-914) 12/29/18 06:55 Folate > 20.00 ng/mL (>3.99) 12/29/18 06:55 Urine Color Straw 12/28/18 01:35 Urine Appearance Clear 12/28/18 01:35 Urine pH 7.0 (5-9) 12/28/18 01:35 Ur Specific [place] 1.005 (1.010-1.030) L 12/28/18 01:35 Urine Protein Negative (Negative) 12/28/18 01:35 Urine Ketones Negative (Negative) 12/28/18 01:35 Urine Blood 1+ (Negative) A 12/28/18 01:35 Urine Nitrate Negative (Negative) 12/28/18 01:35 Urine Bilirubin Negative (Negative) 12/28/18 01:35 Urine Urobilinogen Negative (Negative) 12/28/18 01:35 Ur Leukocyte Esterase Negative (Negative) 12/28/18 01:35 Urine WBC (Auto) Trace(0-5/hpf) (Absent) 12/28/18 01:35 Urine RBC (Auto) Absent (Absent) 12/28/18 01:35 Urine Bacteria Absent (Absent) 12/28/18 01:35 Urine Collection Time Cancelled 12/28/18 01:35 Urine Total Volume Cancelled 12/28/18 01:35 Ur Creatinine Concen 14.04 mg/dL 12/28/18 01:35 Ur Urea Nitrogen Conc 172 mg/dL 12/28/18 01:35 Urea Nitrogen Clear Cancelled 12/28/18 01:35 Urine Glucose Negative (Negative) 12/28/18 01:35 Urine Ascorbic Acid * (Negative) A 12/27/18 18:55 - Objective Active Medications: Albuterol/Ipratropium (Duoneb (Albuterol 2.5 Mg/Ipratropium 0.5 Mg)) 1 neb INH QID PRN PRN Reason: SHORTNESS OF BREATH Ascorbic Acid (Vitamin C Tab*) 1,000 mg PO DAILY [facility] Last Admin: 12/31/18 10:03 Dose: 1,000 mg Atorvastatin Calcium (Lipitor*) 10 mg PO BEDTIME [facility] Last Admin: 12/30/18 22:28 Dose: 10 mg Azithromycin (Zithromax Tab*) 250 mg PO DAILY [facility] Last Admin: 12/31/18 10:03 Dose: 250 mg Cetirizine HCl (Zyrtec*) 10 mg PO DAILY [facility] Last Admin: 12/31/18 10:01 Dose: 10 mg Cholecalciferol (Vitamin D Tab*) 2,000 units PO DAILY [facility] Last Admin: 12/31/18 10:02 Dose: 2,000 units Docusate Sodium (Colace Cap*) 100 mg PO DAILY [facility] Last Admin: 12/31/18 10:03 Dose: 100 mg Famotidine (Pepcid Tab*) 20 mg PO DAILY [facility] Last Admin: 12/31/18 10:04 Dose: 20 mg Furosemide (Lasix Tab*) 60 mg PO DAILY [facility] Last Admin: 12/31/18 10:02 Dose: 60 mg Guaifenesin (Mucinex*) 600 mg PO BID PRN PRN Reason: CONGESTION Last Admin: 12/30/18 22:28 Dose: 600 mg Lorazepam (Ativan Tab(*)) 0.5 mg PO Q6H PRN PRN Reason: ANXIETY Last Admin: 12/30/18 22:27 Dose: 0.5 mg Metolazone (Zaroxolyn Tab*) 2.5 mg PO DAILY [facility] Last Admin: 12/31/18 09:59 Dose: 2.5 mg Mometasone Furoate/Formoterol Fumar (Dulera 200/5 Mdi*) 2 puff INH BID [facility] Last Admin: 12/31/18 07:57 Dose: 2 puff Montelukast Sodium (Singulair Tab*) 10 mg PO DAILY [facility] Last Admin: 12/31/18 10:01 Dose: 10 mg Multivitamins/Minerals (Theragran/Minerals Tab*) 1 tab PO DAILY [facility] Last Admin: 12/31/18 10:04 Dose: 1 tab Oxybutynin Chloride (Ditropan Xl Tab*) 10 mg PO DAILY [facility] Last Admin: 12/31/18 10:00 Dose: 10 mg Pantoprazole Sodium (Protonix Tab*) 40 mg PO BID [facility] Last Admin: 12/31/18 10:00 Dose: 40 mg Polyethylene Glycol/Electrolytes (Miralax*) 17 gm PO DAILY PRN PRN Reason: CONSTIPATION Prednisone (Deltasone Tab*) 40 mg PO DAILY [facility] Last Admin: 12/31/18 10:03 Dose: 40 mg Pregabalin (Lyrica Cap(*)) 25 mg PO DAILY [facility] Last Admin: 12/31/18 10:04 Dose: 25 mg Pregabalin (Lyrica Cap(*)) 50 mg PO BEDTIME [facility] Last Admin: 12/30/18 22:28 Dose: 50 mg Senna (Senokot 8.6 Mg Tab*) 1 tab PO DAILY PRN PRN Reason: CONSTIPATION Tramadol HCl (Ultram*) 50 mg PO Q8H PRN PRN Reason: PAIN - MODERATE Last Admin: 12/30/18 22:26 Dose: 50 mg Vitamin E (Vitamin E Cap*) 200 units PO DAILY [facility] Vital Signs: Vital Signs: Temp Pulse Resp BP Pulse Ox 97.7 F 82 20 118/64 100 12/31/18 07:15 12/31/18 07:59 12/31/18 10:04 12/31/18 07:15 12/31/18 07:59 Patient Weight: Weight 95.527 kg Intake and Output: Intake & Output 12/29/18 12/30/18 12/31/18 01/01/19 06:59 06:59 06:59 06:59 Intake Total 960 1020 1028 Output Total 1100 3400 4050 Balance -140 -4965 -5682 Weight 95.98 kg 95.527 kg 95.527 kg Intake: IV Fluids 10 108 Ferric Gluconate 10 108 IVPB 50 Ferric Gluconate 50 Oral 960 960 920 Output: Urine 975 Aleman 125 3400 4050 Other: Estimated Void Small Large # Bowel Movements 1 2 Estimated Stool Amount Small Medium Medium # Voids 4 ADLs: Meal Record Start: 12/27/18 23: 36 Freq: DAILY@0900,1400,1800 Status: Active Protocol: Created 12/27/18 23:36 System (Rec: 12/27/18 23:36 System [id number]-[email or web address]) Document 12/28/18 09:00 [id number] (Rec: 12/28/18 11:49 [id number] TELE-C13) Document 12/28/18 14:00 [id number] (Rec: 12/28/18 14:43 [id number] TELE-C13) Document 12/28/18 18:00 [id number] (Rec: 12/29/18 01:07 [id number] TELE-C06) Document 12/29/18 09:00 [id number] (Rec: 12/29/18 10:06 [id number] TELE-C09) Document 12/29/18 14:00 [id number] (Rec: 12/29/18 14:01 [id number] TELE-C09) Document 12/29/18 18:00 [id number] (Rec: 12/29/18 18:48 [id number] TELE-C10) Document 12/30/18 09:00 [id number] (Rec: 12/30/18 09:43 [id number] TELE-C13) Document 12/30/18 14:00 [id number] (Rec: 12/30/18 14:46 [id number] TELE-C13) Document 12/30/18 16:52 [id number] (Rec: 12/30/18 16:52 TELE-C09) Document 12/30/18 17:44 [id number] (Rec: 12/30/18 17:44 TELE-C09) Intake and Output Start: 12/27/18 17: 58 Freq: Status: Active Protocol: Created 12/27/18 17:58 System (Rec: 12/27/18 17:58 System [id number]) Intake and Output Start: 12/27/18 23: 36 Freq: DAILY@0600,1400,2200 Status: Active Protocol: Created 12/27/18 23:36 System (Rec: 12/27/18 23:36 System TELE-C33) Document 12/28/18 06:00 [id number] (Rec: 12/28/18 06:22 [id number] TELE-C33) Document 12/28/18 14:00 [id number] (Rec: 12/28/18 14:43 [id number] TELE-C13) Document 12/28/18 22:00 [id number] (Rec: 12/28/18 22:25 [id number] TELE-C06) Document 12/29/18 01:33 [id number] (Rec: 12/29/18 01:34 [id number] TELE-M21) Document 12/29/18 05:31 [id number] (Rec: 12/29/18 05:32 [id number] TELE-C06) Document 12/29/18 14:00 [id number] (Rec: 12/29/18 14:32 [id number] TELE-C09) Document 12/29/18 21:00 [id number] (Rec: 12/30/18 05:09 [id number] TELE-C08) Document 12/29/18 22:00 [id number] (Rec: 12/29/18 22:21 [id number] TELE-C05) Document 12/30/18 06:00 [id number] (Rec: 12/30/18 06:45 [id number] TELE-C09) Document 12/30/18 14:00 [id number] (Rec: 12/30/18 14:47 [id number] TELE-C13) Document 12/30/18 21:38 (Rec: 12/30/18 21:39 TELE-C09) Document 12/31/18 06:00 [id number] (Rec: 12/31/18 06:07 [id number] TELE-C07) Eyes: No Scleral Icterus, PERRLA Ears/Nose/Mouth/Throat: NL Teeth, Lips, Gums, Mucous Membranes Moist Neck: NL Appearance and Movements; NL JVP, Trachea Midline Cardiovascular: RRR, - - 2/6 INOCENCIA at RUSB Abdominal: NL Sounds; No Tenderness; No Distention, No Hepatosplenomegaly Extremities: - - +1 pitting ankle edema and distal LE's edema improving with AJAY bandages Neurological: Alert and Oriented x 3, NL Muscle Strength and Tone - Assessment Assessment: 78yo female admitted with acute on chronic respiratory failure, COPD exacerbation, CHF, anemia and 2 valve disease eligible for hospice - Plan Consult Plan (MU): Hospice Plan: Long discussion with pt about her goals of care. She wishes to stay at home. Information/brochure given about hospice and she would like to be referred. Pt has been on AIM with [facility] but every time she had symptoms she calls PCP who refers her to ER. She doesn't want to suffer or have her kids suffer. MOLST was completed she wants no CPR or intubation, no feeding tube or IV fluids doesn't want to come back to hospital but would still like some interventions to keep her comfortable. Pt reads, watches TV and uses her tablet. She gets meals on wheels and makes her own breakfast. She is sad that she has a poor prognosis. All this information was also discussed with pt's daughter Lily and copy of MOLST was given to pt. She is eligible for hospice with diagnosis of end stage COPD on 4 liters, systolic CHF EF 30-35% & 2 valve disease(mod-severe MR & mod ) declining intervention. KPS 50%, PPS 50% - Time On Unit Date of Evaluation: 12/31/18 Hospice Consult Time in: 11:00 Hospice Consult Time Out: 12:30 Hospice Consult Time Total: 90 > 50% of Time Spend In Counseling or Coordinating Care: Yes
[2018-12-31] MEDS: LORazepam TAB(*) 0.5 MG PO PRN (14:51)
[2018-12-31] MEDS ORDERED: Furosemide TAB* 40 MG PO SCH (17:00)
[2018-12-31] MEDS: Pregabalin CAP(*) 50 MG PO SCH (21:30)
[2018-12-31] MEDS: Atorvastatin* 10 MG TAB PO SCH (21:31)
--- NOTE | 2018-12-31 22:26 | DS ---
CC: Dr. Simon; Dr. Shultz; Dr. Chester; Asia Jones NP; Dr. Marisol Cordova; Echo Rivero NP * DISCHARGE SUMMARY: DATE OF ADMISSION: 12/27/18 DATE OF ANTICIPATED DISCHARGE: 01/01/19 PRIMARY CARE PROVIDER: Echo Rivero NP CONDITION ON DISCHARGE: Stable. DISPOSITION AT DISCHARGE: Home. DISCHARGE DIAGNOSES: 1. Shortness of breath due to a combination of congestive heart failure, which is acute and systolic and acute chronic obstructive pulmonary disease exacerbation with bronchitis. 2. Cardiomyopathy with ejection fraction of 30% to 35%, severe mitral regurgitation and [id number] aortic stenosis. SECONDARY DIAGNOSES: 1. Severe chronic obstructive pulmonary disease, oxygen given at 4 L. 2. History of chronic systolic congestive heart failure. 3. History of aortic stenosis. 4. Colon cancer in 2007 status post resection and chemotherapy. 5. Hypertension. 6. Hyperlipidemia. 7. History of aortic aneurysm. 8. History of coronary artery disease. 9. Peripheral neuropathy. 10. Anxiety. 11. Chronic fatigue 12. Subacute gastrointestinal bleed. MEDICATIONS AT DISCHARGE: The change includes an additional dose of Lasix at 40 mg by p.o. daily to be taken with dinner, also omeprazole 20 mg b.i.d. The remaining medications are unchanged from admission and those include: 1. Albuterol inhaler on a p.r.n. basis. 2. DuoNeb nebulizers on a p.r.n. basis. 3. Vitamin C 1000 units daily. 4. Symbicort 160/4.5 two puffs b.i.d. 5. Calcium carbonate with vitamin D 1 tablet daily. 6. Zyrtec 10 mg daily. 7. Vitamin D3 2000 units daily. 8. Prolia 60 mg subcutaneously every 6 months. 9. Mucinex ER 600 mg b.i.d. p.r.n. 10. Avapro 150 mg daily. 11. Singulair 10 mg daily. 12. Multivitamin 1 tablet daily. 13. Ditropan 10 mg daily. 14. MiraLAX 17 g daily p.r.n. 15. Lyrica 25 mg daily and 50 mg at bedtime. 16. Senokot 1 tablet daily p.r.n. 17. Zocor 20 mg at bedtime. 18. Vitamin B complex 1 capsule daily. 19. Vitamin E 100 units daily. 20. Lasix 60 mg daily in a.m. and 40 q.p.m. 21. Metolazone 2.5 mg daily before morning dose of Lasix. 22. Lorazepam on a p.r.n. basis. 23. Omeprazole 20 mg twice a day. CONSULTATIONS DURING THE HOSPITAL STAY: Included Dr. Shultz from Cardiology, Dr. Marisol Cordova from Palliative Care. LABORATORY DATA AND STUDIES PERFORMED DURING THE HOSPITAL STAY: Included: White blood cell count 7.6, hemoglobin 9.7, hematocrit 29, and platelets of 360 that was obtained on 12/31/18. Sodium of 136, potassium 3.6, chloride 85, carbon dioxide 46, BUN 43, creatinine 1.22. Iron studies showed iron level of 31, TIBC of 307, percent iron saturation 10, transferrin 219, ferritin of 34, vitamin B12 of 436 and folate of above 20. The patient's venous Doppler study obtained on 12/28/18 showed no evidence of DVT in bilateral lower extremities. Transthoracic echocardiogram obtained on 12/29/18 showed EF of 30% to 35% with abnormal relaxation and increased filling pressures consistent with elevated ventricular end diastolic filling pressure. The right ventricle systolic function is moderate to severely reduced. Mitral valve with [id number] regurgitation, aortic valve possibly bicuspid with aortic valve area of 1.2 centimeter square, but may be overestimated. Pulmonary arteries with systolic pressures mildly increased. Compared to echo from June 2018, EF has decreased to 40, previously was 40% to 45% and right ventricle systolic pressure has decreased from low normal. Mitral regurgitation previously estimated mild is now moderate to severe. HOSPITALIZATION COURSE: Leigh Ann Coburn is 78-year-old female with significant bivalvular heart disease and ischemic cardiomyopathy, who has history of chronic systolic CHF exacerbation that also get worse when she has COPD exacerbation, which is also severe and oxygen dependent. The patient presented to the hospital once again with shortness of breath. She was diagnosed with acute systolic CHF and COPD exacerbation, placed on steroids, azithromycin, and Lasix IV. She diuresed rather well and her leg edema improved greatly when she had them elevated and bandaged with elastic bandages. Nevertheless, an echocardiogram showed even worsened than prior systolic function with EF down to 35% and severe mitral regurgitation, which is a progression of her mitral valve issues. At that point, Dr. Shultz saw the patient in consultation. The patient is aware that she is not and a good surgical candidate, but she once also felt that she would like to "have something done." She also was made aware that if she is not a surgical candidate she likely would benefit from hospice. At that point, Dr. Cordova saw the patient in consultation and patient was made do not resuscitate and do not intubate with limited medical intervention. She may be a hospice candidate and patient was referred to the hospice as outpatient. She was also referred to [facility]. During her hospital stay, it was noted that her hemoglobin was lower than usual and her stool was heme positive, but it was hard and well formed. She was treated with IV iron infusions for 2 days during the hospital stay. Dr. Rubalcava saw the patient in consultation and noted that the patient prefers conservative treatment, which is likely safer for the patient as she is not a good candidate for EGD due to her respiratory issues. At that point, PPI twice a day was started as well as aspirin and ibuprofen were discontinued. On the day of discharge the patient is going to be on her last dose of prednisone, that dose 5/5 and azithromycin. At home, she will not need to be continued on steroids and her antibiotics are going to be completed for acute bronchitis. She will continue with new additional dose of Lasix at 40 mg q.h.s. It also needs to be noted that the patient's creatinine that was increased at admission, improved with diuresis. The patient is aware that the prognosis of her discharge is guarded and she likely will be a hospice candidate. She was set up with outpatient services. Today, the patient felt that she is not ready for discharge yet and she would like to wait for tomorrow to be picked up by her private aide, Mila. Mila will pick and shovel worker the patient tomorrow to go home on 01/01/19, this discharge is dictated a day prior. PHYSICAL EXAM AT THE TIME OF DISCHARGE: Blood pressure of 103/49, heart rate of 85 and regular, respiratory rate 20, oxygen saturation 80% on 4 L of oxygen and nasal cannula, temperature 97.8. General: The patient is a very pleasant 78-year-old female who is in no acute distress. Alert, awake, and oriented x3. HEENT: Head is normocephalic. Eyes: Pupils are equal and reactive to light and accommodation. Pharynx clear. Mucosa moist. Neck is supple. No JVD. No bruit bilaterally. Cardiovascular: Regular rate and rhythm with 2/6 systolic ejection murmur noted at the right upper sternal border. Respiratory: Decreased breath sounds bilaterally and bilateral middle to lower lungs. Abdomen: Soft, nontender. Bowel sounds present in quadrants. Extremities: There is +2 pitting pedal edema, it is improving. There is no clubbing, no cyanosis and no wounds. Neurologically, cranial nerves II through XII grossly intact. Motor strength is 5/5 bilaterally. The patient noted the patient has generalized weakness due to her overall deconditioning. It is also noted, the patient was not prescribed p.o. iron at discharge because she is not tolerating it due to GI upset and constipation. Please note that this is a short summary of the patient's hospital stay. Please refer to further medical records for details. DISPOSITION AT DISCHARGE: Home. CONDITION ON DISCHARGE: Frail, but stable. [id number]/[facility] #: [id number]
[2019-01-01] MEDS: traMADol TAB* 50 MG PO PRN (02:11)
[2019-01-01 05:49] LABS: ABS Eosinophils 0.1 10^3/ul (0-0.6); ABS Lymphocytes 0.9 10^3/ul (1.0-4.8); ABS Monocytes 1.1 10^3/ul (0-0.8); ABS Neutrophils 5.4 10^3/ul (1.5-7.7); Hematocrit 28 % (35-47); Hemoglobin 9.1 g/dL (12.0-16.0); Lymphocyte % 12.3 %; Mean Corpuscular HGB Conc 33 g/dL (31-36); Mean Corpuscular Hemoglobin 29 pg (27-31); Mean Corpuscular Volume 87 fL (80-97); Platelet Count 349 10^3/uL (150-450); Red Blood Count 3.18 10^6 /uL (3.70-4.87); Red Cell Distribution Width 15 % (10-15); White Blood Count 7.6 10^3/uL (3.5-10.8)
[2019-01-01 06:09] LABS: BUN/Creatinine Ratio 36.1 (8-20); Blood Urea Nitrogen 43 mg/dL (6-24); Calcium 9.1 mg/dL (8.6-10.3); Chloride 82 mmol/L (101-111); EGFR African American 53.1 (>60); EGFR Non-African American 43.9 (>60); Glucose 80 mg/dL (70-100); Potassium 3.9 mmol/L (3.5-5.0); Sodium 135 mmol/L (135-145)
[2019-01-01 08:45] LABS: CO2 Carbon Dioxide 49 mmol/L (22-32)
[2019-01-01] MEDS ORDERED: Influenza VAC *QUAD* 2019-20* 0.5 ML SYRINGE IM ONE (09:00)
[2019-01-01] MEDS ORDERED: Vitamin E CAP* 200 UNITS PO SCH (09:00)
[2019-01-01] MEDS: Metolazone TAB* 5 MG PO SCH (09:17)
[2019-01-01] MEDS: Famotidine TAB* 20 MG PO SCH (09:18)
[2019-01-01] MEDS: Cholecalciferol TAB* 1000 UNITS PO SCH (09:19)
[2019-01-01] MEDS: Montelukast Sodium TAB* 10 MG PO SCH (09:19)
[2019-01-01] MEDS: Cetirizine* 10 MG TAB PO SCH (09:19)
[2019-01-01] MEDS: Pregabalin CAP(*) 25 MG PO SCH (09:20)
[2019-01-01] MEDS: Pantoprazole TAB * 40 MG TAB PO SCH (09:20)
[2019-01-01] MEDS: predniSONE TAB* 20 MG PO SCH (09:21)
[2019-01-01] MEDS: Furosemide TAB* 20 MG PO SCH (09:21)
[2019-01-01] MEDS: Docusate CAP* 100 MG PO SCH (09:21)
[2019-01-01] MEDS: Ascorbic Acid TAB* 500 MG PO SCH (09:21)
[2019-01-01] MEDS: Multivitamins/Minerals TAB PO SCH (09:21)
[2019-01-01] MEDS: Azithromycin TAB* 250 MG PO SCH (09:21)
[2019-01-01] MEDS: Oxybutynin XL TAB* 5 MG PO SCH (09:25)
[2019-01-01] MEDS: Mometasone/Formoter 200/5 MDI INH SCH (10:22)
[2019-01-01 13:28] VITALS: BP 116/65
== END 2019-01-01 15:30 | disposition home health service (06) | DRG 291 ==
LOC: ED 17:40 → MEDTELE 22:19 → OBSVTOIN 12-28 07:00
PROVIDERS: ADMIT Internal Medicine; ATTEND Internal Medicine
DX: I13.0 Hypertensive heart and chronic kidney disease with heart failure and stage 1 through stage 4 chronic kidney disease, or unspecified chronic kidney disease (principal); I50.33 Acute on chronic diastolic (congestive) heart failure; J96.21 Acute and chronic respiratory failure with hypoxia; N17.9 Acute kidney failure, unspecified; J44.1 Chronic obstructive pulmonary disease with (acute) exacerbation; K92.1 Melena; Z99.81 Dependence on supplemental oxygen; G62.9 Polyneuropathy, unspecified; I42.9 Cardiomyopathy, unspecified; R73.9 Hyperglycemia, unspecified; E78.5 Hyperlipidemia, unspecified; I71.4 Abdominal aortic aneurysm, without rupture; I25.10 Atherosclerotic heart disease of native coronary artery without angina pectoris; D64.9 Anemia, unspecified; I50.84 End stage heart failure; I08.0 Rheumatic disorders of both mitral and aortic valves; F41.9 Anxiety disorder, unspecified; R53.82 Chronic fatigue, unspecified; Z85.038 Personal history of other malignant neoplasm of large intestine; Z79.82 Long term (current) use of aspirin; Z79.51 Long term (current) use of inhaled steroids; Z79.899 Other long term (current) drug therapy; Z88.5 Allergy status to narcotic agent; Z88.0 Allergy status to penicillin; Z88.8 Allergy status to other drugs, medicaments and biological substances; Z91.018 Allergy to other foods; Z91.048 Other nonmedicinal substance allergy status; Z82.49 Family history of ischemic heart disease and other diseases of the circulatory system; Z80.9 Family history of malignant neoplasm, unspecified; Z87.891 Personal history of nicotine dependence
CPT/HCPCS: 36415; 71045; 80048; 80053; 81003; 81015; 82270; 82570; 82607; 82728; 82746; 83010; 83540; 83550; 83605; 83615; 83880; 84484; 84540; 85025; 85045; 85610; 86140; 87086; 90686; 93005; 93306; 93970; 94640; 99285; A9270-GY; C8929; J1644; J1940; J2916; J7512